=== PATIENT | female | born 1950 | race Caucasian/White ===

== ENCOUNTER → 2018-06-07 13:06 | Outpatient (CLI) | payer MEDICARE, OTHER, SELFPAY ==
[2018-06-15 14:08] LABS: HPV APTIMA, High Risk Negative (Negative)
== END ==
PROVIDERS: PCP Student in an Organized Health Care Education/Training Program; Visit Provider Obstetrics & Gynecology
DX: Z12.4 Encounter for screening for malignant neoplasm of cervix (principal)
CPT/HCPCS: 88175; G0145

== ENCOUNTER → 2018-07-19 09:20 | Outpatient (CLI) | payer MEDICARE, OTHER, SELFPAY ==
--- NOTE | 2018-07-19 09:25 | BI_ITS ---
MAMMOGRAPHY - BILATERAL SCREENING REASON FOR EXAM: Female, 68 years old. Routine annual screening examination. PERTINENT HISTORY: Non-contributory. TECHNIQUE: Digital bilateral breast kaylyn (3D mammographic acquisition) in the CC and MLO projections. 2-D mediolateral oblique (MLO) and craniocaudad (CC) views of both breasts were obtained. CAD: Full Field Digital Mammography with Computer Added Detection was performed. COMPARISON: Comparison is made with prior study dated May 28, 2017 and May 26, 2016. FINDINGS: Breast Composition: The breasts are heterogeneously dense, which may obscure small masses. There is an 8.3 mm x 9.6 mm well-defined nodular density in the mid lateral aspect of the right breast at approximately the 3:00 position. Correlation with ultrasound is recommended. Stable benign-appearing bilateral axillary lymph nodes. No other significant abnormalities are identified. BI/SCREENING MAMM (CAD), BILAT IMPRESSION: 8.3 mm x 9.6 mm well-defined nodule at the 3:00 position of the right breast. Correlation with ultrasound is recommended. ASSESSMENT CATEGORY: BIRADS Category 0: Incomplete. Need additional imaging evaluation. A letter regarding these results will be sent to the patient by the facility within 30 days. Approximately 10% of breast cancers are not detected by mammography. A normal mammogram should not delay biopsy of a clinically suspicious abnormality. [id number] Electronically Signed: Franky Gardner MD at 10:20 EST Tel [phone], Service support ,
--- OUTSIDE RECORDS SUMMARY | 2018-09-13 04:14 | XMS RPT_ITS ---
:1950 Author Organization OHIP Care Team Providers Name Role Phone VALERIE SÁNCHEZ Referring Unavailable VALERIE SÁNCHEZ Attending Unavailable VALERIE SÁNCHEZ Referring Unavailable VALERIE SÁNCHEZ Referring Unavailable MIAH OLMSTEAD Referring Unavailable MIAH OLMSTEAD Attending Unavailable MIAH OLMSTEAD Referring Unavailable MIAH OLMSTEAD Referring Unavailable VALERIE ÁSNCHEZ Referring Unavailable MIAH OLMSTEAD Referring Unavailable MANZON, VALERIE D Referring Unavailable MANZON, VALERIE D Attending Unavailable MANZON, VALERIE D Referring Unavailable MANZON, VALERIE D Referring Unavailable PALMA LOVETT (PELT DROPPER) Attending Unavailable MANZON, VALERIE D Referring Unavailable MANZON, VALERIE D Referring Unavailable Will Ruiz Attending Unavailable Joseph, Will Referring Unavailable [place]mstead, Miah Primary Care Unavailable Joseph, Will Attending Unavailable [place], Will Referring Unavailable Olmstead, Miah Primary Care Unavailable Will Ruiz Consulting Unavailable Jolynn Stevens Attending Unavailable [place], Miah Primary Care Unavailable [place], Will Attending Unavailable [place], Miah Referring Unavailable Andrzej Rowan Attending Unavailable Andrzej Rowan Attending Unavailable Andrzej Rowan Attending Unavailable IthacaWill Attending Unavailable [place]mstead, Miah Referring Unavailable Joseph, Will Attending Unavailable [place]mstead, Miah Referring Unavailable PROBLEMS PROBLEMS DATE TYPE CONDITION / CODE ATTENDING STATUS SOURCE 08/01/2018 Unknown R92.8 - Other Will Ruiz Active [facility] and [facility] inconclusive [facility] findings on Repository diagnostic imaging of breast / R92.8(ICD-10) 06/14/2018 Active Other specified PALMA LOVETT Active [facility] disorders of bone (PELT DROPPER) [place] density and Repository structure, unspecified site / M85.80(ICD-10) 06/07/2018 Unknown Z12.4 - Encounter Andrzej Rowan for screening for Community malignant neoplasm Hospital of cervix / Repository Z12.4(ICD-10) 05/09/2018 Active Localized NA Active [facility] swelling, mass and [place] lump, right upper Repository limb / R22.31(ICD-10) 03/02/2017 Active 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 SÁNCHEZ Active [facility] (current) use of D [place] systemic steroids Repository / Z79.52(ICD-10) 01/18/2018 Active Cardiac murmur, NA Active [facility] unspecified / [place] R01.1(ICD-10) Repository 01/18/2018 Active Nonrheumatic NA Active [facility] mitral (valve) [place] prolapse / Repository I34.1(ICD-10) 01/12/2018 Active 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 Active [facility] (current) drug [place] therapy / Repository Z79.899(ICD-10) 12/24/2017 Active Unknown / VALERIE SÁNCHEZ Active [facility] UNK(Unknown) D [place] Repository 01/17/2017 Active Giant cell NA Active [facility] arteritis with [place] polymyalgia Repository rheumatica / M31.5(ICD-10) 03/05/2016 Active Age-related NA Active [facility] osteoporosis [place] without current Repository pathological fracture / M81.0(ICD-10) 10/28/2015 Active Raynaud's syndrome NA Active [facility] without gangrene / [place] I73.00(ICD-10) Repository PROCEDURES PROCEDURES No Procedure Records FoundRESULTS RESULTS OPERATIVE REPORT Observed: 08/01/2018 Status: F Source: [place] 10:02 AM [facility] REPOSITORY [facility] Medical Records Department [address] [place] [address] Operative Report 08/01/18 0957 MR#: [id number] Acct: [id number] Name: CECELIA QUIROZ Rep #: [id number] : 1950 68 From: Will Ruiz MD PCP: Miah Aguayo DO Status: REG CLI Y Location: OPUS Problem List (1) Abnormal mammogram of right breast Status: Acute Report of Operation Date of Procedure: 08/01/18 Pre-Operative Diagnosis: Abnormal mammogram to right breast Post-Operative Diagnosis: Same Surgery/Procedure Performed:: Ultrasound-guided handheld mammotome breast biopsy to right breast Type of Anesthesia:: Local Description of Procedure: Patient was brought into the ultrasound unit placed in the supine position. Ultrasound of the right breast in the upper inner quadrant revealed the lesion in question. I prepped the breast with chlorhexidine. I injected local. I injected local under ultrasound guidance posterior to the lesion. A skin mahin was made. I directed the hand-held mammotome needle under ultrasound guidance posterior to the lesion. Numerous biopsies were obtained under ultrasound guidance. Under ultrasound guidance I placed a small Gelfoam titanium clip. Sterile dressings were applied. The patient tolerated the procedure well. - Admit VTE Documentation VTE Present on Admission: No VTE Mechan Device Prophylaxis: None VTE Pharm Prophylaxis ordered?: No Reason prophylaxis not ordered:: Treatment Not Indicated 08/01/18 1002 <Electronically signed by Will Ruiz MD> Date Will Ruiz MD CC: Will Ruiz MD; Andrzej Rowan MD; Miah Aguayo DO Signed BREAST BIOPSY Observed: 08/01/2018 Status: F Source: [place] ([place]) 8:00 AM [facility] REPOSITORY Patient: CECELIA QUIROZ : 1950 (68/F) Acct Num: [id number] Phys: Joseph JAMES,Will Unit Num: [id number] Loc: OPUS Specimen: [id number] Received: 08/01/1848 Spec Type: BREAST BX TISSUES 1 TISSUES: Right breast, NOS GROSS DESCRIPTION Received in fixative is one container labeled with the patient's name and designated right breast. The specimen consists of multiple elongated fragments of palomares-yellow fibroadipose tissue that in aggregate measure 1.5 x 1 x 0.1 cm. The entire specimen is submitted in one cassette. / SJ:lili 08/01/18 TC:5 CPT: 98012 HEADER OPERATION: Right breast biopsy, ultrasound-guided PRE-OP DIAGNOSIS: Right breast nodule TISSUE SUBMITTED: Right breast ISCHEMIC TIME: 60 seconds FIXATION TIME: 11.5 hours MICROSCOPIC DESCRIPTION Slides are reviewed. MICROSCOPIC DIAGNOSIS Right breast nodule, ultrasound-guided core biopsy: Focal nonproliferative fibrocystic change with associated microcalcifications. Focal involutional change. No evidence of malignancy. AM: 08/02/18 Signed Michele Pedroza DO 08/02/18 <signature on file> Performed By: #### PBRBX #### [facility] [address] [place], [place], [id number] US BREAST BIOPSY Observed: 08/01/2018 Status: F Source: [place] 1ST LESION 7:29 AM [facility] REPOSITORY [facility] Imaging Services [address] [place] [address] US Breast Biopsy 1st Lesion MR#: [id number] Acct: [id number] Name: CECELIA QUIROZ Rep #: [id number] : 1950 F 68 From: Franky Gardner MD PCP: Miah Aguayo DO Status: REG CLI Study: US Breast Biopsy 1st Lesion Date of Exam: 08/01/18 Exam# [id number] Ordering Dr: Will Ruiz MD STUDY: ULTRASOUND BREAST - RIGHT REASON FOR EXAM: Female, 68 years old. Ultrasound guided right breast biopsy. TECHNIQUE: Axial and longitudinal images of the RIGHT breast were performed with a high resolution ultrasound transducer. COMPARISON: Comparison is made with prior mammogram dated July 19, 2018 and prior sonogram of the right breast dated July 22, 2018. FINDINGS: RIGHT Breast: Under direct sonographic guidance, the surgeon performed 4 core biopsies of the hypoechoic nodule measuring 6 mm x 6 mm x 4 mm at the 2:00 position the breast at 1 cm from the nipple. US/US Breast Biopsy 1st Lesion IMPRESSION: Successful ultrasound-guided biopsy of the nodular density as described. ASSESSMENT CATEGORY: BIRADS Category 2: Benign. A letter regarding these results will be sent to the patient by the facility within 30 days. Electronically Signed: Franky Gardner MD at 8:36 EST Tel [phone], Service support , CC: Will Ruiz MD; Miah Aguayo DO Manager Mining: Signed SURGERY VISIT REPORT Observed: 07/29/2018 Status: F Source: [place] [place] 2:30 PM [facility] [address] [place] [address]. [address] [place] [address] OFFICE VISIT Date of Service: 07/29/18 MR#: [id number] Acct: [id number] Name: CECELIA QUIROZ Rep #: [id number] : 1950 Provider: Will Ruiz MD Age/Sex: 68/F Location: [facility] Status: Signed Intake Intake Visit Reasons: US Guided Handheld Mammotome BX Rt Breast Drug Abuse Counselor Required: No Is patient in pain?: No Allergies No Known Allergies Allergy (Verified 07/29/18 14:09) Medications Travoprost 0.004% [Travatan-Z 0.004% Eye Drop] 1 drp EACH EYE DAILY 04/05/14 [History Confirmed 07/29/18] predniSONE tablet 30 mg PO DAILY 04/05/14 [History Confirmed 07/29/18] Omeprazole [Prilosec] 40 mg PO DAILY 10/11/16 [History Confirmed 07/29/18] Metoprolol Tartrate [Lopressor (beta matilde)] 25 mg PO BID 02/24/17 [History Confirmed 07/29/18] ascorbate calcium 500 mg tablet 500 mg PO DAILY 07/25/18 [History Confirmed 07/29/18] denosumab 60 mg/mL subcutaneous syringe 60 mg SC [id number] 07/25/18 [History Confirmed 07/29/18] folic acid 800 mcg tablet 0.8 mg PO DAILY 07/25/18 [History Confirmed 07/29/18] PFSH Medical History Bartholin cyst (Acute) History of uterine cancer (Acute) Osteoarthritis (Acute) GERD (gastroesophageal reflux disease) (Acute) Chest pain at rest (Acute) 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) Surgical History History of appendectomy (Acute) Status post ORIF of fracture of ankle (Acute) history of ulnar nerve transplant (Acute) History of arthroplasty of left shoulder (Acute) History of colonoscopy (Acute) History of partial hysterectomy (Acute) history of bartholin cyst removal (Acute) Family History Brother Cancer liver and lymphoma Sister Cancer lung Diabetes Father Diabetes Heart disease Myocardial infarction Mother Heart disease Social History Smoking Status: Current every day smoker HPI HPI HPI: CECELIA QUIROZ, is a 68 F who presents to the office today for an ultrasound-guided breast biopsy of the right side. I however was unable to identify the lesion Office Procedures Procedure Time Out Time Out Informed consent given: Yes Consent signed: Yes Time out checklist: patient, procedure, site marked/identified, positioning of patient, supplies available, allergies confirmed, team agrees on procedure Time out staff in room: Yes Time out verified: Yes Time out date: 07/29/18 Time out time: 14:10 Assessment AND Plan Problems 1. Abnormal mammogram of right breast R92.8 Plan I am going to have to get this patient scheduled in radiology using a much more powerful ultrasound machine to see if I can identify this lesion. There will be no charge for today's visit Orders Orders: Coding Level of Care Code No Charge Diagnoses Abnormal mammogram of right breast R92.8 07/29/18 1430 <Electronically signed by Will Ruiz MD> Date Will Ruiz MD Cosign Signature: Date (if applicable) CC: SURGERY VISIT REPORT Observed: 07/25/2018 Status: F Source: [place] 2:39 PM [facility] REPOSITORY [facility] [address] [place] [address] [address] [place] [address] OFFICE VISIT Date of Service: 07/25/18 MR#: [id number] Acct: [id number] Name: CECELIA QUIROZ Rep #: [id number] : 1950 Provider: Will Ruiz MD Age/Sex: 68/F Location: [facility] Status: Signed Intake Vital Signs07/25/18 Height 5 ft 5 in 07/25/18 Weight: 150 lb 2 oz 07/25/18 Body Mass Index (BMI) 25.0 07/25/18 Blood Pressure 144/80 H Intake Visit Reasons: R Breast Birads 4 Mammo 07/19 US 07/22 Chief Complaint: abn mammo/US right Drug Abuse Counselor Required: No Is patient in pain?: No Allergies No Known Allergies Allergy (Verified 07/25/18 14:01) Medications Travoprost 0.004% [Travatan-Z 0.004% Eye Drop] 1 drp EACH EYE DAILY 04/05/14 [History Confirmed 07/25/18] predniSONE tablet 30 mg PO DAILY 04/05/14 [History Confirmed 07/25/18] Omeprazole [Prilosec] 40 mg PO DAILY 10/11/16 [History Confirmed 07/25/18] Metoprolol Tartrate [Lopressor (beta matilde)] 25 mg PO BID 02/24/17 [History Confirmed 07/25/18] ascorbate calcium 500 mg tablet 500 mg PO DAILY 07/25/18 [History Confirmed 07/25/18] denosumab 60 mg/mL subcutaneous syringe 60 mg SC [id number] 07/25/18 [History Confirmed 07/25/18] folic acid 800 mcg tablet 0.8 mg PO DAILY 07/25/18 [History Confirmed 07/25/18] Is last menstrual period known: No Post menopausal: Yes Patient : No PFSH Medical History Bartholin cyst (Acute) History of uterine cancer (Acute) Osteoarthritis (Acute) GERD (gastroesophageal reflux disease) (Acute) Chest pain at rest (Acute) 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) Surgical History History of appendectomy (Acute) Status post ORIF of fracture of ankle (Acute) history of ulnar nerve transplant (Acute) History of arthroplasty of left shoulder (Acute) History of colonoscopy (Acute) History of partial hysterectomy (Acute) history of bartholin cyst removal (Acute) Family History Brother Cancer liver and lymphoma Sister Cancer lung Diabetes Father Diabetes Heart disease Myocardial infarction Mother Heart disease Social History Smoking Status: Current every day smoker HPI HPI HPI: CECELIA QUIROZ, is a 68 F who presents to the office today for evaluation of an abnormal mammogram and ultrasound done to her right breast. Patient has had her mammogram and ultrasound completed [facility] on 07/22/2018. In the right breast she was noted to have a 5 x 8 x 3 mm well-defined hypoechoic nodule at the 2 o'clock position approximately 1 cm from the nipple. This was most likely to represent a fibroadenoma and a biopsy was recommended for further evaluation. She has not palpated any abnormalities. She is not had any breast trauma. She is not complaining of any nipple discharge. ROS General General: Yes weight change and fatigue; no appetite, colon cancer, breast cancer or weakness HEENT HEENT: Yes eye surgery; no difficulty swallowing, eye injury, swollen glands or hoarseness Endo Endocrine: No thyroid disease, diabetes mellitus, thyroid cancer, Hair loss, heat intolerance or cold intolerance Breast Breast: Yes abnormal mammogram and abnormal US; no left breast lump, right breast lump, nipple discharge, breast pain or breast enlargement Musc Musculoskeletal: Yes arthritis; no back problems, rheumatoid arthritis, gout or joint pain Additional Details: PMR Cardio Cardiovascular: No murmur, pacemaker, heart disease, atrial fibrillation, high blood pressure, heart attack, heart stent, palpitations, shortness of breat with exertion or chest pain Resp Respiratory: No shortness of breath, No sleep apnea, No cough, No COPD, No asthma, No emphysema, No wheezing Gastro Gastrointestinal: No abdominal pain, No nausea or vomiting, Yes diarrhea, No constipation, No blood in stool, Yes acid reflux, No hemorrhoids, No ulcers, No gallbladder problem, No black,tarry stools Lane Hematologic: No blood thinners, No blood disorders, No bleeding, No anemia, No blood clots Neuro Neurologic: No weakness Exam [facility] Head: normal to inspection, normocephalic, atraumatic Mouth: moist mucous membranes, oropharynx normal Eyes General: appearance normal, both eyes and all related structures Sclera: sclerae normal Neck Neck: no lymphadenopathy noted, trachea midline Neck mass: No Thyroid: thyroid normal Lymphatic: no lymphadenopathy noted Chest Breast inspection: normal inspection of the breasts Breast Palpation: No nipple discharge Resp Other: Respiratory Exam: Deferred Cardio Heart Sounds: no murmurs Other: Cardiac Exam: Deferred GI Other: GI Exam: Deferred Other: Rectal Exam: Deferred Extrem Other: Extremity Exam: Deferred Assessment AND Plan Problems 1. Abnormal mammogram of right breast R92.8 Plan I have discussed above with the patient. I have recommended ultrasound guided needle core breast biopsy with vacuum assistance. I have described the procedure to the patient. I have discussed with the patient that sometimes the ultrasound lesion may be artifact and is user dependent and therefore prior to undergoing the procedure, the patient will have a definitive US to ensure that the lesion is truly present and is not artifact. A marker clip will be placed to identify the location. Patient has been counseled to the risks/benefits of the procedure. I have explained the risks of the surgery, including but not limited to: infection, bleeding, injury to any blood vessels/nerves, scar tissue, missing the lesion, further surgery, etc. - the patient understands and agrees to proceed. I have answered all of the patient's questions to her satisfaction and she has no further questions. Coding Level of Care Code Off vis,new,level 3 Diagnoses Abnormal mammogram of right breast R92.8 07/25/18 1439 <Electronically signed by Will Ruiz MD> Date Will Ruiz MD Cosigner Signature: Date (if applicable) CC: Andrzej Rowan MD; Miah Aguayo DO BREAST LIMITED Observed: 07/22/2018 Status: F Source: [facility] 8:55 AM [facility] REPOSITORY [facility] Imaging Services [address] [place] [address] Breast Limited Unilateral MR#: [id number] Acct: [id number] Name: CECELIA QUIROZ Rep #: [id number] : 1950 F 68 From: Franky Gardner MD PCP: Miah Aguayo DO Status: REG CLI Study: Breast Limited Unilateral Date of Exam: 07/22/18 Exam# [id number] Ordering Dr: Andrzej Rowan MD STUDY: ULTRASOUND BREAST - RIGHT REASON FOR EXAM: Female, 68 years old. Abnormal screening mammogram. TECHNIQUE: Axial and longitudinal images of the RIGHT breast were performed with a high resolution ultrasound transducer. COMPARISON: Comparison is made with prior mammogram dated July 19, 2018 and prior sonogram of the right breast dated March 07, 2010. FINDINGS: RIGHT Breast: The mammographic abnormality corresponds to a 5 mm x 8 mm x 3 mm well-defined hypoechoic nodule at the 2:00 position of the breast at 1 cm from the nipple. This most likely represents a small fibroadenoma. A biopsy is recommended for further evaluation. US/Breast Limited Unilateral IMPRESSION: The mammographic abnormality corresponds to a 5 mm x 8 mm x 3 mm well-defined hypoechoic nodule at the 2:00 position breast 1 cm from nipple. This most likely represents a small fibroadenoma. Tissue diagnosis is recommended. ASSESSMENT CATEGORY: BIRADS Category 4: Suspicious - Biopsy Should Be Considered. A letter regarding these results will be sent to the patient by the facility within 30 days. Electronically Signed: Franky Gardner MD at 11:24 EST Tel [phone], Service support , CC: Andrzej Rowan MD; Miah Aguayo DO Manager Mining: Signed SCREENING MAMM (CAD), Observed: 07/19/2018 Status: F Source: [facility] 9:25 AM [facility] REPOSITORY [facility] Imaging Services [address] [place] [address] SCREENING MAMM (CAD), BILAT MR#: [id number] Acct: [id number] Name: CECELIA QUIROZ Rep #: [id number] : 1950 F 68 From: Franky Gardner MD PCP: Miah Aguayo DO Status: REG CLI Study: SCREENING MAMM (CAD), BILAT Date of Exam: 07/19/18 Exam# [id number] Ordering Dr: Andrzej Rowan MD MAMMOGRAPHY - BILATERAL SCREENING REASON FOR EXAM: Female, 68 years old. Routine annual screening examination. PERTINENT HISTORY: Non-contributory. TECHNIQUE: Digital bilateral breast kaylyn (3D mammographic acquisition) in the CC and MLO projections. 2-D mediolateral oblique (MLO) and craniocaudad (CC) views of both breasts were obtained. CAD: Full Field Digital Mammography with Computer Added Detection was performed. COMPARISON: Comparison is made with prior study dated May 28, 2017 and May 26, 2016. FINDINGS: Breast Composition: The breasts are heterogeneously dense, which may obscure small masses. There is an 8.3 mm x 9.6 mm well-defined nodular density in the mid lateral aspect of the right breast at approximately the 3:00 position. Correlation with ultrasound is recommended. Stable benign-appearing bilateral axillary lymph nodes. No other significant abnormalities are identified. BI/SCREENING MAMM (CAD), BILAT IMPRESSION: 8.3 mm x 9.6 mm well-defined nodule at the 3:00 position of the right breast. Correlation with ultrasound is recommended. ASSESSMENT CATEGORY: BIRADS Category 0: Incomplete. Need additional imaging evaluation. A letter regarding these results will be sent to the patient by the facility within 30 days. Approximately 10% of breast cancers are not detected by mammography. A normal mammogram should not delay biopsy of a clinically suspicious abnormality. [id number] Electronically Signed: Franky Gardner MD at 10:20 EST Tel [phone], Service support , CC: Andrzej Rowan MD; Miah Aguayo DO Manager Mining: Signed CBC AND DIFFERENTIAL Collected: 07/03/2018 Status: F Source: [place] 11:41 AM [facility] REPOSITORY TYPE CODE TESTS RESULT OUT OF REFERENCE UNITS RANGE LAB WBC 3.70-11.00 k/uL WBC High 15.51 LAB RBC 3.90-5.20 m/uL RBC 4.08 LAB HGB 11.5-15.5 g/dL Hemoglobin 12.6 LAB HCT 36.0-46.0 % Hematocrit 41.3 LAB MCV 80.0-100.0 fL MCV High 101.2 LAB MCH 26.0-34.0 pG MCH 30.9 LAB MCHC 30.5-36.0 g/dL MCHC 30.5 LAB RDWCV 11.5-15.0 % RDW-CV 13.6 LAB PLTCT 150-400 k/uL Platelet Count 328 LAB MPV 9.0-12.7 fL MPV 10.9 LAB ANEUT % Neut% 82.3 LAB AANEUT 1.45-7.50 k/uL Abs Neut High 12.76 LAB ALYMP % Lymph% 12.8 LAB AALYMP 1.00-4.00 k/uL Abs Lymph 1.98 LAB AMONO % Pondera% 4.4 LAB AAMONO <0.87 k/uL Abs Pondera 0.69 LAB AEOS % Eosin% 0.1 LAB AAEOS <0.46 k/uL Abs Eosin <0.03 LAB ABASO % Baso% 0.4 LAB AABASO <0.11 k/uL Abs Baso 0.06 LAB AUNRBC 0 /100 WBC NRBCs 0.0 LAB ABNRBC <0.01 k/uL Absolute nRBC <0.01 LAB DTYP DTYPE Auto Diff Performed By: #### CBCDIF, ALB, ALT, AST, CRET1 #### [facility] [address] [place] [address] ALBUMIN Collected: 07/03/2018 Status: F Source: [place] 11:41 [facility] REPOSITORY TYPE CODE TESTS RESULT OUT OF REFERENCE UNITS RANGE LAB ALB 3.9-4.9 g/dL Albumin 4.2 Performed By: #### CBCDIF, ALB, ALT, AST, CRET1 #### [facility] [place] [address] ALT Collected: 07/03/2018 Status: F Source: [place] 11:41 [facility] REPOSITORY TYPE CODE TESTS RESULT OUT OF RANGE REFERENCE UNITS LAB ALT 7-38 U/L ALT 13 Performed By: #### CBCDIF, ALB, ALT, AST, CRET1 #### [facility] [address] [place] [id number] AST Collected: 07/03/2018 Status: F Source: [place] 11:41 AM [facility] REPOSITORY TYPE CODE TESTS RESULT OUT OF RANGE REFERENCE UNITS LAB AST 13-35 U/L AST 18 Performed By: #### CBCDIF, ALB, ALT, AST, CRET1 #### [facility] [address] [place], [place] [address] CREATININE Collected: 07/03/2018 Status: F Source: [place] 11:41 AM [facility] REPOSITORY TYPE CODE TESTS RESULT OUT OF REFERENCE UNITS RANGE LAB CRET 0.58-0.96 mg/dL Creatinine 0.77 LAB GFRAA eGFR- >60 Amer. LAB GFRNAA . eGFR-All Other Races >60 Result Comment: eGFR (Estimated GFR) Units of measure: mL/min/1.73 meters squared eGFR is derived from the reexpressed MDRD Study equation using the following parameters: serum creatinine, age, gender and race. The creatinine assay has been calibrated to be traceable to IDMS. An eGFR <60 mL/min/1.73m2 for >3 months is consistent with chronic kidney disease. Refer to KDOQI guidelines for clinical interpretation. In patients with unstable renal function, e.g. those with acute kidney injury, the eGFR may not accurately reflect actual GFR. Performed By: #### CBCDIF, ALB, ALT, AST, CRET1 #### [facility] [address] [place] [address] CNOV Observed: 06/14/2018 Status: COMPLETED Source: [place] 8:40 AM [facility] REPOSITORY Office Visit (RHEUST) CECELIA QUIROZ ([id number]) 1950 F Date Time Provider Department 06/14/18 8:40 AM [facility] L[facility]ETT During your visit today, we recorded the following information about you: Temperature Pulse Blood pressure Weight 97.9 degrees 82/minute 136/68 67.6 kg Height 1.664 m [place] Lovett APRN.CNP 06/14/2018 1:47 PM Signed Dx: GCA (temporal artery biopsy negative x2) 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 She stopped fosamax 2 weeks ago. She is taking high dose vit d. No falls or fractures since [facility]. No invasive dental work in the last three months and none planned for the next three months. No jaw or thigh pain. No recent infections. She is currently taking prednisone 7.5 mg. She reduced to this dose from 9 mg daily because she ran out of 1 mg tabs. She reports worsening of pain with decreased dose. She started methotrexate 3 weeks ago and is tolerating it well. Sites of pain: shoulders, neck, buttocks, b/l upper extremity proximal muscles, pain rated 9/10 Muscle weakness: upper extremities Vision changes: none Scalp tenderness: none Headaches: none Jaw pain: none REVIEW OF SYSTEMS: June 14, 2018 CONSTITUTIONAL: Fever: No Fatigue: Yes Pain: No EYES: Pain: No Redness: No Loss of vision: No Dryness: Yes EAR, NOSE, MOUTH, THROAT: Nose bleeds: No Hearing loss: No Sores in mouth: No Swallowing problems: No Dry mouth: Yes CARDIOVASCULAR: Chest pain: No Swelling in the feet or legs: Yes RESPIRATORY: Shortness of breath: No Pain with breathing: No Chronic cough: No Coughing up blood: No GASTROINTESTINAL: Heartburn: No Nausea: No Diarrhea: Yes Blood in the stool or black stool: No Abdominal pain: No GENITOURINARY: Blood in urine: No Pain or burning on urination: No MUSCULOSKELETAL: See above: Joint pain: Yes Joint swelling: Yes Morning stiffness in joints: Yes Muscle weakness: Yes Back pain: Yes SKIN: Rashes: No Sun sensitive rashes: No Color changes of hands or feet in the cold: Yes Hair loss: No Nail changes: No NEUROLOGICAL: Headaches: Yes Dizziness: Yes Numbness or tingling: Yes- intermittent to hands Memory loss: No Seizures: No HEMATOLOGIC/LYMPHATIC: Swollen glands: No Anemia: No ALLERGIES/IMMUNOLOGIC: Allergies (other than medications): No Increased susceptibility to infection: No KNOWN MEDICAL CONDITIONS: Diabetes: No Thyroid disease: No High blood pressure: No PAST MEDICAL HISTORY PAD (nonpalpable right DP pulse, saw Dr. Cutler in vascular medicine) Hematuria - 1999 (had workup including cystoscopy, etc. - entire workup negative. 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 PAST SURGICAL HISTORY Past Surgical History of - 1987 (ulnar ner transferred) Past Surgical History of - 1990 (bartholin cyst on vagina) Past Surgical History of - 2005 (bone spur to left shoulder) Total Abdom Hysterectomy - 1982 (cervical cancer, still has ovaries) Past Surgical History of - 2007 (left knee -- torn meniscus ([facility])) skin biopsy Thyroid nodule FNA partial hysterectomy (ovaries not removed) appendectomy temporal artery bx x2 Right ankle fracture s/p fixation 09/2011 Right ankle fusion 07/2016 right cataract surgery FAMILY HISTORY no rheumatic autoimmune disorders, no psoriasis, no IBD (+)cancers - lung, liver, colon, uterine (+)diabetes SOCIAL HISTORY Marital Status: Number of children: 2 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 methotrexate 2.5 mg tablet Take 4 tablets qweek for 2 weeks then 8 tablets qweek thereafter. predniSONE (DELTASONE) 5 mg tablet Using 1 mg and 5 mg tabs, take 8 mg qd predniSONE (DELTASONE) 1 mg tablet Using 1 mg and 5 mg tabs, take 8 mg qd metoprolol tartrate, short acting, (LOPRESSOR) 25 mg tablet TAKE ONE TABLET BY MOUTH TWICE DAILY FOR TREMOR alendronate (FOSAMAX) 70 mg tablet Take 1 tablet by mouth once each week. predniSONE (DELTASONE) 2.5 mg tablet Using 10 mg and 2.5 mg tablets, take 25 mg qd. Reduce dose as directed. Do not go lower than 10 mg qd predniSONE (DELTASONE) 20 mg tablet TAKE TWO AND ONE-HALF TABLETS BY MOUTH EVERY MORNING predniSONE (DELTASONE) 10 mg tablet Using 10 mg and 20 mg tablets, take 40 mg qam. Reduce dose by 5 mg as directed. Do not go lower than 20 mg daily Omeprazole 40 mg capsule Take 1 capsule by mouth once daily. TRAVOPROST, BENZALKONIUM, (TRAVATAN OPHTHALMIC) Use in eyes. One drop daily at bedtime in both eyes. No current facility-administered medications for this visit. On Exam: BP 136/68 Pulse 82 Temp 36.6 ?C (97.9 ?F) (Oral) Ht 166.4 cm (5' 5.5) Wt 67.6 kg (149 lb) BMI 24.42 kg/m? GEN WD/WN, in nad, AANDOx3, normal gait HEART rrr, no mgr LUNGS ctab ABDOM +bs, soft, nt, nd MS Swollen joints: none Tender joints: none No synovitis +tenderness to b/l upper extremity and lower extremity proximal muscles Jan 19 2014 BD AP SPINE/HIP - LEFT / COMPARISON: 01/17/2012 LUMBAR SPINE: The bone mineral density from L1 through L4 is 0.860 grams per square centimeter which yields a T-score of -1.7. This is unchanged. LEFT HIP: The bone mineral density of the total region of the hip is 0.780 grams per square centimeter which yields a T-score of -1.3. This is not significantly changed. LEFT FEMORAL NECK: The bone mineral density of the femoral neck is 0.596 grams per square centimeter which yields a T-score of -2.3. This is not significantly changed. IMPRESSION: Osteopenia, not significantly changed. Sep 10 2014 MRI CARDIAC IMPRESSION: NORMAL-SIZE THORACIC AND ABDOMINAL AORTA - mild segmental wall thickening of the descending thoracic and abdominal aorta in a nonspecific pattern Arch and Visceral Branch Vessels: unremarkable without evidence of stenosis - the hepatic artery is not well seen Normal left ventricular size and function on qualitative assessment No evidence of other abnormalities PRIOR EVALUATION Abnormal/Positive: sedimentation rate 59.outside labs: ESR 104, CRP 50.6 and Hgb 10.4 Normal/Negative: tsh, outside labs: JOANN, RF and CCP,temporal artery biopsy neg x2 Component Latest Ref Rng AND Units 09/25/2016 Hep B Core Ab, Total Negative Negative Hep C Antibody IA Negative Negative Hep B Surface Ag Negative Negative Hep B Surface Ab, Qual Negative Negative TB Result Negative Negative TB Antigen Response <0.35 IU/mL 0.01 Mitogen Response >0.49 IU/mL 2.53 TB Gamma Interpretation No evidence of current or previous infection with Mycobacterium tuberculosis. Labs reviewed and discussed with the patient: Component Latest Ref Rng AND Units 05/09/2018 05/11/2018 WBC 3.70 - 11.00 k/uL 14.91 (H) RBC 3.90 - 5.20 m/uL 4.11 Hemoglobin 11.5 - 15.5 g/dL 12.7 Hematocrit 36.0 - 46.0 % 41.9 MCV 80.0 - 100.0 fL 101.9 (H) MCH 26.0 - 34.0 pG 30.9 MCHC 30.5 - 36.0 g/dL 30.3 (L) RDW-CV 11.5 - 15.0 % 13.2 Platelet Count 150 - 400 k/uL 325 MPV 9.0 - 12.7 fL 12.0 Neut% % 76.8 Abs Neut (ANC) 1.45 - 7.50 k/uL 11.44 (H) Lymph% % 18.2 Abs Lymph 1.00 - 4.00 k/uL 2.72 Pondera% % 4.8 Abs Pondera <0.87 k/uL 0.72 Eosin% % 0.0 Abs Eosin <0.46 k/uL <0.03 Baso% % 0.2 Abs Baso <0.11 k/uL 0.03 Nucleated Reds 0 /100 WBC 0.0 Absolute nRBC <0.01 k/uL <0.01 Diff Type Auto Diff Albumin 3.9 - 4.9 g/dL 4.1 Bilirubin, Total 0.2 - 1.3 mg/dL <0.2 (L) Bilirubin, Conjug <0.2 mg/dL <0.2 Alkaline Phosphatase 32 - 117 U/L 82 AST 13 - 35 U/L 28 ALT 7 - 38 U/L 18 Protein, Total 6.3 - 8.0 g/dL 7.5 Creatinine 0.58 - 0.96 mg/dL 1.06 (H) eGFR- >60 eGFR-All Other Races . 52 CRP <0.9 mg/dL 0.8 WSR 0 - 20 mm/hr 49 (H) Cross-Link N-telopeptide 14.4 - 75.0 nM/mM Creat 26.0 Vitamin D 25 Hydroxy 31.0 - 80.0 ng/mL 26.5 (L) Calcium 8.5 - 10.2 mg/dL 9.6 Component Latest Ref Rng AND Units 12/14/2016 04/19/2017 10/19/2017 12/24/2017 05/04/2018 WSR 0 - 20 mm/hr 12 16 37 (H) 40 (H) 45 (H) CRP <0.9 mg/dL 0.7 0.3 0.3 1.1 (H) 0.7 02/26/17 [facility] (see scanned document in EMR) wbc 17.4 Hgb 13.8 Hct 41.8 plt 271 Glc 124 (70-110) Cr 0.96 ASSESSMENT: GCA, PMR. Other PMH: Raynaud's,PMR, osteopenia, NSAID related PUD, glaucoma, RUL nodule (ill-defined 1.4 cm on MRI, no nodule noted on cxr), hemicrania continua, PAD (nonpalpable right DP pulse) and mitral valve prolapse. PLAN 1. GCA/PMR -former patient of Dr. Lawrence -diagnosed with PMR after she developed shoulder and pelvic girdle pain and headaches. 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 -Had remarkable improvement with prednisone in her shoulder and pelvic girdle pain but not her headaches. -trial of MTX (highest dose 15 mg) as steroid sparing agent (she has significant tremors with prednisone) ineffective -Actemra (started 10/19/16-dc'd 11/2016) -unable to taper prednisone lower than 10 mg daily due to worsening of her musculoskeletal pain. -continue mtx as instructed along with FA. -she was advised to increase prednisone dose to 9 mg daily -I asked that she have labs done 4 weeks after starting methotrexate (standing orders in EMR) 2. OSTEOPENIA -Jan 24 2016 DEXA: osteoporosis with T-score -2.6. Spine BMD stable, decline in the bone density of left hip but it is not statistically significant. -She had traumatic right ankle fracture after a fall at work s/p fixation 09/2011 -Actonel since at least 2007 until early 2012 -Fosamax since 01/2014. Off Fosamax for a period but then resumed it sometime after 12/2015 -Jan 28 2018 DEXA: osteopenia. T-score of -2.4. Change in BMD at spine: + 3.9%, at left hip: +3.6% and at right hip: -3.9%. Results d/w patient. -Dr. Sánchez discussed switching from Fosamax to Prolia. R/B/A of Prolia d/w patient. No recent or anticipated invasive dental procedures. She is agreeable to switching to Prolia. -will give prolia #1 today. -routine dental visits advised -fall/infection precautions -Patient counseled on calcium and vitamin D requirements. Recommended daily calcium intake (ideally by diet) is 7790-0934 mg per day. If she is unable to consistently meet this requirement by diet alone, she was advised to take calcium CITRATE supplements to make up the deficit. -recommended vitamin D is 800-1000 IU once a day -Next DEXA due: January 2020. 3. Raynaud's -stable -no digital ulcers 4. BLEEDING GASTRIC ULCER - NSAID RELATED (JUL 2011 EGD) -avoid NSAIDs 5. 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 Jolynn Stevens ([place]), workup negative per patient 6. GENERAL HEALTH MAINTENANCE -influenza vaccination given May 2018 -she will follow up with her PCP for her general health issues FU 3 mon, sooner if needed Palma Lovett APRN.IRINEO Lovett APRN.CNP 06/14/2018 9:18 AM Addendum Please have labs done 4 weeks after starting methotrexate. Increase prednisone to 9 mg daily and stay on this dose until your next visit. Referring Provider: VALERIE SÁNCHEZ [[id number]] Allergies As of Date: 06/14/2018 (No Known Allergies) Date Reviewed: 06/14/2018 Reviewed by: Palma Lovett - Fully Assessed Reason for Visit: Established Patient [[id number]] Primary Visit Diagnosis:Osteopenia, unspecified location [M85.80] Other Visit Diagnoses: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) [M31.5] Encounter for long-term (current) use of medications [Z79.899] Order(s):[] denosumab 60 mg injection (PROLIA)Disp: Rfl: Prescriptions as of 06/14/2018 Sig: ERGOCALCIFEROL (VITAMIN D2) 5* Take 50,000 every Tuesdays an* FOLIC ACID 1 MG TABLET Take 1 tablet by mouth once d* METHOTREXATE SODIUM 2.5 MG TA* Take 4 tablets qweek for 2 w* X PREDNISONE 5 MG TABLET Using 1 mg and 5 mg tabs, josiah* X PREDNISONE 1 MG TABLET Using 1 mg and 5 mg tabs, josiah* METOPROLOL TARTRATE 25 MG TAB* TAKE ONE TABLET BY MOUTH TWIC* PREDNISONE 2.5 MG TABLET Using 10 mg and 2.5 mg tablet* PREDNISONE 20 MG TABLET TAKE TWO AND ONE-HALF TABLETS* PREDNISONE 10 MG TABLET Using 10 mg and 20 mg tablets* OMEPRAZOLE 40 MG CAPSULE,CIRO* Take 1 capsule by mouth once * TRAVATAN OPHTHALMIC Use in eyes. One drop daily * Problem List As Of Date 06/14/2018 Noted Resolved Disorder of bone and cartilage [M89.9, M94.9] 03/05/2016 More... ALLERGIC RHINITIS NOS [J30.9] 10/29/2007 MVP (mitral valve prolapse) [I34.1] More... TOBACCO USE DISORDER [F17.200] Diverticulitis of large intestine without perfo*INVALID FOR* More... CARPAL TUNNEL SYNDROME [G56.00] 10/29/2007 HEMATURIA [599.7] 10/29/2007 More... 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 TEAR MED MENISC KNEE-CURRENT [[id number]] INVALID FOR* Cellulitis and Abscess of Face [L03.211, L02.01]INVALID FOR* Adjustment Disorder with Anxiety [F43.22] INVALID FOR* More... Routine general medical examination at a health*INVALID FOR*11/27/2011 Priority: Moderate Class: Chronic More... 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] INVALID FOR* Infected sebaceous cyst [L72.3, L08.9] INVALID FOR* Cephalalgia [R51] INVALID FOR* Family history of brain aneurysm [Z82.49] INVALID FOR* Giant cell arteritis with polymyalgia rheumatic*INVALID FOR* correction systemic steroid user [Z79.52] INVALID FOR* Actinic keratosis [L57.0] INVALID FOR* Undiagnosed cardiac murmurs [R01.1] INVALID FOR* Other instructions from your clinician: Please have labs done 4 weeks after starting methotrexate. Increase prednisone to 9 mg daily and stay on this dose until your next visit. Prescriptions ordered this encounter Disp Refills Start End DENOSUMAB 60 MG/ML SUBCUTANEOUS SYRI* 06/14/2018 06/14/2018 Route: SUBCUTANEOUS Medications Discontinued During This Encounter alendronate (FOSAMAX) 70 mg tablet 12 t* 3 12/24/2017 06/14/2018 Route: ORAL Sig: Take 1 tablet by mouth once each week. Disc: Reason for discontinue is not on file. Disposition: Return in about 3 months (around 09/14/2018). Follow-up and Disposition History Recorded Encounter Status:Closed by PALMA LOVETT PELT DROPPER on 06/14/18 PROGRESS Observed: 06/13/2018 Status: COMPLETED Source: [facility] 11:56 AM [facility] RE[facility]IT[facility] HNO ID: [id number] Author: Palma Lovett Service: (none) Author Type: Nurse Practitioner Type: Progress Notes Filed: 06/14/2018 1:47 PM Note Text: Dx: GCA (temporal artery biopsy negative x2) 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 She stopped fosamax 2 weeks ago. She is taking high dose vit d. No falls or fractures since [facility]. No invasive dental work in the last three months and none planned for the next three months. No jaw or thigh pain. No recent infections. She is currently taking prednisone 7.5 mg. She reduced to this dose from 9 mg daily because she ran out of 1 mg tabs. She reports worsening of pain with decreased dose. She started methotrexate 3 weeks ago and is tolerating it well. Sites of pain: shoulders, neck, buttocks, b/l upper extremity proximal muscles, pain rated 9/10 Muscle weakness: upper extremities Vision changes: none Scalp tenderness: none Headaches: none Jaw pain: none REVIEW OF SYSTEMS: June 14, 2018 CONSTITUTIONAL: Fever: No Fatigue: Yes Pain: No EYES: Pain: No Redness: No Loss of vision: No Dryness: Yes EAR, NOSE, MOUTH, THROAT: Nose bleeds: No Hearing loss: No Sores in mouth: No Swallowing problems: No Dry mouth: Yes CARDIOVASCULAR: Chest pain: No Swelling in the feet or legs: Yes RESPIRATORY: Shortness of breath: No Pain with breathing: No Chronic cough: No Coughing up blood: No GASTROINTESTINAL: Heartburn: No Nausea: No Diarrhea: Yes Blood in the stool or black stool: No Abdominal pain: No GENITOURINARY: Blood in urine: No Pain or burning on urination: No MUSCULOSKELETAL: See above: Joint pain: Yes Joint swelling: Yes Morning stiffness in joints: Yes Muscle weakness: Yes Back pain: Yes SKIN: Rashes: No Sun sensitive rashes: No Color changes of hands or feet in the cold: Yes Hair loss: No Nail changes: No NEUROLOGICAL: Headaches: Yes Dizziness: Yes Numbness or tingling: Yes- intermittent to hands Memory loss: No Seizures: No HEMATOLOGIC/LYMPHATIC: Swollen glands: No Anemia: No ALLERGIES/IMMUNOLOGIC: Allergies (other than medications): No Increased susceptibility to infection: No KNOWN MEDICAL CONDITIONS: Diabetes: No Thyroid disease: No High blood pressure: No PAST MEDICAL HISTORY PAD (nonpalpable right DP pulse, saw Dr. Cutler in vascular medicine) Hematuria - 1999 (had workup including cystoscopy, etc. - entire workup negative. 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 PAST SURGICAL HISTORY Past Surgical History of - 1987 (ulnar ner transferred) Past Surgical History of - 1990 (bartholin cyst on vagina) Past Surgical History of - 2005 (bone spur to left shoulder) Total Abdom Hysterectomy - 1982 (cervical cancer, still has ovaries) Past Surgical History of - 2007 (left knee -- torn meniscus ([place])) skin biopsy Thyroid nodule FNA partial hysterectomy (ovaries not removed) appendectomy temporal artery bx x2 Right ankle fracture s/p fixation 09/2011 Right ankle fusion 07/2016 right cataract surgery FAMILY HISTORY no rheumatic autoimmune disorders, no psoriasis, no IBD (+)cancers - lung, liver, colon, uterine (+)diabetes SOCIAL HISTORY Marital Status: Number of children: 2 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 methotrexate 2.5 mg tablet Take 4 tablets qweek for 2 weeks then 8 tablets qweek thereafter. predniSONE (DELTASONE) 5 mg tablet Using 1 mg and 5 mg tabs, take 8 mg qd predniSONE (DELTASONE) 1 mg tablet Using 1 mg and 5 mg tabs, take 8 mg qd metoprolol tartrate, short acting, (LOPRESSOR) 25 mg tablet TAKE ONE TABLET BY MOUTH TWICE DAILY FOR TREMOR alendronate (FOSAMAX) 70 mg tablet Take 1 tablet by mouth once each week. predniSONE (DELTASONE) 2.5 mg tablet Using 10 mg and 2.5 mg tablets, take 25 mg qd. Reduce dose as directed. Do not go lower than 10 mg qd predniSONE (DELTASONE) 20 mg tablet TAKE TWO AND ONE-HALF TABLETS BY MOUTH EVERY MORNING predniSONE (DELTASONE) 10 mg tablet Using 10 mg and 20 mg tablets, take 40 mg qam. Reduce dose by 5 mg as directed. Do not go lower than 20 mg daily Omeprazole 40 mg capsule Take 1 capsule by mouth once daily. TRAVOPROST, BENZALKONIUM, (TRAVATAN OPHTHALMIC) Use in eyes. One drop daily at bedtime in both eyes. No current facility-administered medications for this visit. On Exam: BP 136/68 Pulse 82 Temp 36.6 ?C (97.9 ?F) (Oral) Ht 166.4 cm (5' 5.5) Wt 67.6 kg (149 lb) BMI 24.42 kg/m? GEN WD/WN, in nad, AANDOx3, normal gait HEART rrr, no mgr LUNGS ctab ABDOM +bs, soft, nt, nd MS Swollen joints: none Tender joints: none No synovitis +tenderness to b/l upper extremity and lower extremity proximal muscles Jan 19 2014 BD AP SPINE/HIP - LEFT / COMPARISON: 01/17/2012 LUMBAR SPINE: The bone mineral density from L1 through L4 is 0.860 grams per square centimeter which yields a T-score of -1.7. This is unchanged. LEFT HIP: The bone mineral density of the total region of the hip is 0.780 grams per square centimeter which yields a T-score of -1.3. This is not significantly changed. LEFT FEMORAL NECK: The bone mineral density of the femoral neck is 0.596 grams per square centimeter which yields a T-score of -2.3. This is not significantly changed. IMPRESSION: Osteopenia, not significantly changed. Sep 10 2014 MRI CARDIAC IMPRESSION: NORMAL-SIZE THORACIC AND ABDOMINAL AORTA - mild segmental wall thickening of the descending thoracic and abdominal aorta in a nonspecific pattern Arch and Visceral Branch Vessels: unremarkable without evidence of stenosis - the hepatic artery is not well seen Normal left ventricular size and function on qualitative assessment No evidence of other abnormalities PRIOR EVALUATION Abnormal/Positive: sedimentation rate 59.outside labs: ESR 104, CRP 50.6 and Hgb 10.4 Normal/Negative: tsh, outside labs: JOANN, RF and CCP,temporal artery biopsy neg x2 Component Latest Ref Rng AND Units 09/25/2016 Hep B Core Ab, Total Negative Negative Hep C Antibody IA Negative Negative Hep B Surface Ag Negative Negative Hep B Surface Ab, Qual Negative Negative TB Result Negative Negative TB Antigen Response <0.35 IU/mL 0.01 Mitogen Response >0.49 IU/mL 2.53 TB Gamma Interpretation No evidence of current or previous infection with Mycobacterium tuberculosis. Labs reviewed and discussed with the patient: Component Latest Ref Rng AND Units 05/09/2018 05/11/2018 WBC 3.70 - 11.00 k/uL 14.91 (H) RBC 3.90 - 5.20 m/uL 4.11 Hemoglobin 11.5 - 15.5 g/dL 12.7 Hematocrit 36.0 - 46.0 % 41.9 MCV 80.0 - 100.0 fL 101.9 (H) MCH 26.0 - 34.0 pG 30.9 MCHC 30.5 - 36.0 g/dL 30.3 (L) RDW-CV 11.5 - 15.0 % 13.2 Platelet Count 150 - 400 k/uL 325 MPV 9.0 - 12.7 fL 12.0 Neut% % 76.8 Abs Neut (ANC) 1.45 - 7.50 k/uL 11.44 (H) Lymph% % 18.2 Abs Lymph 1.00 - 4.00 k/uL 2.72 Pondera% % 4.8 Abs Pondera <0.87 k/uL 0.72 Eosin% % 0.0 Abs Eosin <0.46 k/uL <0.03 Baso% % 0.2 Abs Baso <0.11 k/uL 0.03 Nucleated Reds 0 /100 WBC 0.0 Absolute nRBC <0.01 k/uL <0.01 Diff Type Auto Diff Albumin 3.9 - 4.9 g/dL 4.1 Bilirubin, Total 0.2 - 1.3 mg/dL <0.2 (L) Bilirubin, Conjug <0.2 mg/dL <0.2 Alkaline Phosphatase 32 - 117 U/L 82 AST 13 - 35 U/L 28 ALT 7 - 38 U/L 18 Protein, Total 6.3 - 8.0 g/dL 7.5 Creatinine 0.58 - 0.96 mg/dL 1.06 (H) eGFR- >60 eGFR-All Other Races . 52 CRP <0.9 mg/dL 0.8 WSR 0 - 20 mm/hr 49 (H) Cross-Link N-telopeptide 14.4 - 75.0 nM/mM Creat 26.0 Vitamin D 25 Hydroxy 31.0 - 80.0 ng/mL 26.5 (L) Calcium 8.5 - 10.2 mg/dL 9.6 Component Latest Ref Rng AND Units 12/14/2016 04/19/2017 10/19/2017 12/24/2017 05/04/2018 WSR 0 - 20 mm/hr 12 16 37 (H) 40 (H) 45 (H) CRP <0.9 mg/dL 0.7 0.3 0.3 1.1 (H) 0.7 02/26/17 [facility] (see scanned document in EMR) wbc 17.4 Hgb 13.8 Hct 41.8 plt 271 Glc 124 (70-110) Cr 0.96 ASSESSMENT: GCA, PMR. Other PMH: Raynaud's,PMR, osteopenia, NSAID related PUD, glaucoma, RUL nodule (ill-defined 1.4 cm on MRI, no nodule noted on cxr), hemicrania continua, PAD (nonpalpable right DP pulse) and mitral valve prolapse. PLAN 1. GCA/PMR -former patient of Dr. Lawrence -diagnosed with PMR after she developed shoulder and pelvic girdle pain and headaches. 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 -Had remarkable improvement with prednisone in her shoulder and pelvic girdle pain but not her headaches. -trial of MTX (highest dose 15 mg) as steroid sparing agent (she has significant tremors with prednisone) ineffective -Actemra (started 10/19/16-dc'd 11/2016) -unable to taper prednisone lower than 10 mg daily due to worsening of her musculoskeletal pain. -continue mtx as instructed along with FA. -she was advised to increase prednisone dose to 9 mg daily -I asked that she have labs done 4 weeks after starting methotrexate (standing orders in EMR) 2. OSTEOPENIA -Jan 24 2016 DEXA: osteoporosis with T-score -2.6. Spine BMD stable, decline in the bone density of left hip but it is not statistically significant. -She had traumatic right ankle fracture after a fall at work s/p fixation 09/2011 -Actonel since at least 2007 until early 2012 -Fosamax since 01/2014. Off Fosamax for a period but then resumed it sometime after 12/2015 -Jan 28 2018 DEXA: osteopenia. T-score of -2.4. Change in BMD at spine: + 3.9%, at left hip: +3.6% and at right hip: -3.9%. Results d/w patient. -Dr. Sánchez discussed switching from Fosamax to Prolia. R/B/A of Prolia d/w patient. No recent or anticipated invasive dental procedures. She is agreeable to switching to Prolia. -will give prolia #1 today. -routine dental visits advised -fall/infection precautions -Patient counseled on calcium and vitamin D requirements. Recommended daily calcium intake (ideally by diet) is 3366-0856 mg per day. If she is unable to consistently meet this requirement by diet alone, she was advised to take calcium CITRATE supplements to make up the deficit. -recommended vitamin D is 800-1000 IU once a day -Next DEXA due: January 2020. 3. Raynaud's -stable -no digital ulcers 4. BLEEDING GASTRIC ULCER - NSAID RELATED (JUL 2011 EGD) -avoid NSAIDs 5. 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 Jolynn Stevens ([place]), workup negative per patient 6. GENERAL HEALTH MAINTENANCE -influenza vaccination given May 2018 -she will follow up with her PCP for her general health issues FU 3 mon, sooner if needed Palma Lovett APRN.PELT DROPPER PAP IG HPV HR Collected: 06/07/2018 Status: F Source: [place] 12:00 PM [facility] REPOSITORY Order Comment: CYTOLOGY INFORMATION: - CLINICAL INFORMATION: HYSTERECTOMY - DATE LMP/MENOPAUSE: - COLLECTION VIAL: Thin Prep Vial - EMPLOYMENT INTERVIEWER SOURCE: VAGINAL - COLLECTION TECHNIQUE: SPATULA ONLY Specimen Comment: [id number] Specimen Comment: Source.............Vagina Specimen Comment: LMP / Prev Treat...Hyst Specimen Comment: No. of containers..01 ThinPrep Vial TYPE CODE TESTS RESULT OUT OF RANGE REFERENCE UNITS LAB L7400.0800 . Normal DIAGN Comment Result Comment: NEGATIVE FOR INTRAEPITHELIAL LESION AND MALIGNANCY. REACTIVE CELLULAR CHANGES AND/OR REPAIR ARE PRESENT. LAB L7400.0900 . Normal ADEQ Comment Result Comment: Satisfactory for evaluation. No endocervical cells are present. This is consistent with a history of hysterectomy. LAB L7400.1400 . Normal PERFORM Comment Result Comment: Bj Singer, Carriage Feeder (ASCP) LAB L7400.1700 . Normal SIGN Comment Result Comment: Rajeev Freeman MD, Pathologist LAB L7400.2575 . Normal TEST METHOD Comment Result Comment: This liquid based ThinPrep(R) pap test was screened with the use of an image guided system. LAB L7400.2600 . Normal . COMM LAB L7400.2700 . Normal PAPSMR Comment Result Comment: The Pap smear is a screening test designed to aid in the detection of premalignant and malignant conditions of the uterine cervix. It is not a diagnostic procedure and should not be used as the sole means of detecting cervical cancer. Both false-positive and false-negative reports do occur. LAB L7400.2760 Negative Normal HPV APTIMA, Negative HR Result Comment: This test detects fourteen high-risk HPV types (16/18/31/33/35/39/45/ 51/52/56/58/59/66/68) without differentiation. Performed at: - [facility] [id number] Business Support Professional: Shari Cancino MD, Phone: [phone] Performed at: = - [facility] [address] [id number] Business Support Professional: Shari Cancino MD, Phone: [phone] Performed By: #### L7400.0377 #### [facility] (refer to report for specific site) refer to report for address and phone number X-[email or web address] N-TELOPEPTIDE Collected: 05/11/2018 Status: F Source: [place] 9:14 AM [facility] REPOSITORY TYPE CODE TESTS RESULT OUT OF RANGE REFERENCE UNITS LAB UNTX 14.4-75.0 nM/mM Creat X-Link 26.0 N-telopeptid e Performed By: #### UNTX2 #### [facility] [address] [place], [place] [address] CBC AND DIFFERENTIAL Collected: 05/09/2018 Status: F Source: [place] 5:54 PM [facility] REPOSITORY TYPE CODE TESTS RESULT OUT OF REFERENCE UNITS RANGE LAB WBC 3.70-11.00 k/uL WBC High 14.91 LAB RBC 3.90-5.20 m/uL RBC 4.11 LAB HGB 11.5-15.5 g/dL Hemoglobin 12.7 LAB HCT 36.0-46.0 % Hematocrit 41.9 LAB MCV 80.0-100.0 fL MCV High 101.9 LAB MCH 26.0-34.0 pG MCH 30.9 LAB MCHC 30.5-36.0 g/dL Low MCHC 30.3 LAB RDWCV 11.5-15.0 % RDW-CV 13.2 LAB PLTCT 150-400 k/uL Platelet Count 325 LAB MPV 9.0-12.7 fL MPV 12.0 LAB ANEUT % Neut% 76.8 LAB AANEUT 1.45-7.50 k/uL Abs Neut High 11.44 LAB ALYMP % Lymph% 18.2 LAB AALYMP 1.00-4.00 k/uL Abs Lymph 2.72 LAB AMONO % Pondera% 4.8 LAB AAMONO <0.87 k/uL Abs Pondera 0.72 LAB AEOS % Eosin% 0.0 LAB AAEOS <0.46 k/uL Abs Eosin <0.03 LAB ABASO % Baso% 0.2 LAB AABASO <0.11 k/uL Abs Baso 0.03 LAB AUNRBC 0 /100 WBC NRBCs 0.0 LAB ABNRBC <0.01 k/uL Absolute nRBC <0.01 LAB DTYP DTYPE Auto Diff Performed By: #### CBCDIF, WSR, CA, CRET1, CRP, HFP, VITD #### [facility] [address] [place], [place] [address] SED RATE WESTERGREN Collected: 05/09/2018 Status: F Source: [place] 5:54 PM [facility] REPOSITORY TYPE CODE TESTS RESULT OUT OF REFERENCE UNITS RANGE LAB WSR 0-20 mm/hr Sed Rate High W[place]gren 49 Performed By: #### CBCDIF, WSR, CA, CRET1, CRP, HFP, VITD #### [facility] [address] [place] [address] CALCIUM, TOTAL Collected: 05/09/2018 Status: F Source: [place] 5:54 PM [facility] REPOSITORY TYPE CODE TESTS RESULT OUT OF RANGE REFERENCE UNITS LAB CA 8.5-10.2 mg/dL Calcium, 9.6 Total Performed By: #### CBCDIF, WSR, CA, CRET1, CRP, HFP, VITD #### [facility] [address] [place] [address] CREATININE Collected: 05/09/2018 Status: F Source: [place] 5:54 PM [facility] REPOSITORY TYPE CODE TESTS RESULT OUT OF REFERENCE UNITS RANGE LAB CRET 0.58-0.96 mg/dL High Creatinine 1.06 LAB GFRAA eGFR- >60 Amer. LAB GFRNAA . eGFR-All Other Races 52 Result Comment: eGFR (Estimated GFR) Units of measure: mL/min/1.73 meters squared eGFR is derived from the reexpressed MDRD Study equation using the following parameters: serum creatinine, age, gender and race. The creatinine assay has been calibrated to be traceable to IDMS. An eGFR <60 mL/min/1.73m2 for >3 months is consistent with chronic kidney disease. Refer to KDOQI guidelines for clinical interpretation. In patients with unstable renal function, e.g. those with acute kidney injury, the eGFR may not accurately reflect actual GFR. Performed By: #### CBCDIF, WSR, CA, CRET1, CRP, HFP, VITD #### [facility] [address] [place] [address] C-REACTIVE PROTEIN Collected: 05/09/2018 Status: F Source: [place] 5:54 PM [facility] REPOSITORY TYPE CODE TESTS RESULT OUT OF REFERENCE UNITS RANGE LAB CRP <0.9 mg/dL C-Reactive 0.8 Protein Performed By: #### CBCDIF, WSR, CA, CRET1, CRP, HFP, VITD #### [facility] [address] [place] [address] HEPATIC FUNCTN PANEL Collected: 05/09/2018 Status: F Source: [place] 5:54 PM [facility] REPOSITORY TYPE CODE TESTS RESULT OUT OF REFERENCE UNITS RANGE LAB ALB 3.9-4.9 g/dL Albumin 4.1 LAB TBIL 0.2-1.3 mg/dL Low Bilirubin, Total <0.2 LAB CBIL <0.2 mg/dL Bilirubin,Conjuga <0.2 brooks LAB ALKP 32-117 U/L Alkaline Phosphatase 82 LAB AST 13-35 U/L AST 28 LAB ALT 7-38 U/L ALT 18 LAB TP 6.3-8.0 g/dL Protein, Total 7.5 Performed By: #### CBCDIF, WSR, CA, CRET1, CRP, HFP, VITD #### [facility] [address] [place] [address] VITAMIN D 25 HYDROXY Collected: 05/09/2018 Status: F Source: [place] 5:54 PM [facility] REPOSITORY TYPE CODE TESTS RESULT OUT OF REFERENCE UNITS RANGE LAB VITD 31.0-80.0 ng/mL Low Vitamin D 25 26.5 Hydroxy Result Comment: Classification of 25 [place] Vitamin D status: Insufficiency/Moderate Deficiency: < or = 30 ng/mL Sufficiency/Optimal Levels: 31 to 80 ng/mL Toxicity: > 100 ng/mL Test performed by chemiluminescent immunoassay. Performed By: #### CBCDIF, WSR, CA, CRET1, CRP, HFP, VITD #### [facility] [address] [place] [address] CNOV Observed: 05/09/2018 Status: COMPLETED Source: [place] 4:20 PM [facility] REPOSITORY Office Visit (RHE[place]) CECELIA QUIROZ ([id number]) 1950 F Date Time Provider Department 05/09/18 4:20 PM VALERIE SÁNCHEZ During your visit today, we recorded the following information about you: Temperature Pulse Blood pressure Weight 98.6 degrees 67/minute 115/52 66.7 kg Height 1.664 m Valerie Sánchez MD 05/26/2018 8:20 AM Signed Dx: GCA (temporal artery biopsy negative x2) 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 Prednisone is causing profuse sweating. -when she tried to reduce dose to 7.5 mg daily, her pain worsened (mainly from waist up). Most of her pain is in the neck,trapezius, shoulders and proximal arms -occasional aches in low back -knees have been aching more often. -sporadic sharp pain in the right shinto but it is fleeting -she is on mvi. No calcium or vitamin D supplements. -she has nontender cystic nodule at base of right ring finger. She reports that it has increased in size over the past couple of months Sites of pain: -proximal arms -neck/shoulder girdle -hands (off and on, especially in right index mcp) -infrequently in buttocks (infrequent and mild, better with stretching exercise) -right ankle (mainly with weight bearing) No pain elsewhere. No pain in the hip girdle or proximal legs. Swollen joints: none EMS: lasting 30 minutes Tolerating prednisone?: currently on pred 10 mg qd. She has profuse sweating with pred. REVIEW OF SYSTEMS (Positive symptoms in bold): Headache over temples - sometimes (see above) Scalp tenderness - sometimes (see above) Acute vision loss or visual complaints Jaw claudication Extremity claudication Myalgias of the proximal extremities (see above) Shoulder girdle pain (see above) Hip girdle pain REVIEW OF SYSTEMS (Positive symptoms in bold- 14 positive responses recorded) CONSTITUTIONAL: Fever, fatigue, unintentional weight loss EYES: Pain, redness, loss of vision, dryness EAR, NOSE, MOUTH, THROAT: nose bleeds, hearing loss, sores in mouth, swallowing problems, dry mouth CARDIOVASCULAR: chest pain, swelling in the feet or legs RESPIRATORY: shortness of breath, pain with breathing, chronic cough, coughing up blood GASTROINTESTINAL: heartburn, nausea, diarrhea (non bloody, not new, no worse), blood in the stool or black stool, abdominal pain GENITOURINARY: blood in urine (microscopic, saw skinning machine feeder), pain or burning on urination MUSCULOSKELETAL: joint pain, joint swelling, morning stiffness in joints , muscle weakness (generalized), back pain SKIN: rashes, sun sensitive rashes, color changes of hands or feet in the cold, hair loss, nail changes NEUROLOGICAL: Headaches, dizziness, numbness or tingling (sporadic tingling arms down to the hands R>L,no worse), memory loss, seizures HEMATOLOGIC/LYMPHATIC: Swollen glands, anemia ALLERGIES/IMMUNOLOGIC: allergies (other than medications), increased susceptibility to infection KNOWN MEDICAL CONDITIONS: Diabetes, thyroid disease, high blood pressure PAST MEDICAL HISTORY PAD (nonpalpable right DP pulse, saw Dr. Cutler in vascular medicine) Hematuria - 1999 (had workup including cystoscopy, etc. - entire workup negative. 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 PAST SURGICAL HISTORY Past Surgical History of - 1987 (ulnar ner transferred) Past Surgical History of - 1990 (bartholin cyst on vagina) Past Surgical History of - 2005 (bone spur to left shoulder) Total Abdom Hysterectomy - 1982 (cervical cancer, still has ovaries) Past Surgical History of - 2007 (left knee -- torn meniscus ([place])) skin biopsy Thyroid nodule FNA partial hysterectomy (ovaries not removed) appendectomy temporal artery bx x2 Right ankle fracture s/p fixation 09/2011 Right ankle fusion 07/2016 right cataract surgery FAMILY HISTORY no rheumatic autoimmune disorders, no psoriasis, no IBD (+)cancers - lung, liver, colon, uterine (+)diabetes SOCIAL HISTORY Marital Status: Number of children: 2 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 metoprolol tartrate, short acting, (LOPRESSOR) 25 mg tablet TAKE ONE TABLET BY MOUTH TWICE DAILY FOR TREMOR alendronate (FOSAMAX) 70 mg tablet Take 1 tablet by mouth once each week. predniSONE (DELTASONE) 2.5 mg tablet Using 10 mg and 2.5 mg tablets, take 25 mg qd. Reduce dose as directed. Do not go lower than 10 mg qd predniSONE (DELTASONE) 20 mg tablet TAKE TWO AND ONE-HALF TABLETS BY MOUTH EVERY MORNING predniSONE (DELTASONE) 10 mg tablet Using 10 mg and 20 mg tablets, take 40 mg qam. Reduce dose by 5 mg as directed. Do not go lower than 20 mg daily Omeprazole 40 mg capsule Take 1 capsule by mouth once daily. TRAVOPROST, BENZALKONIUM, (TRAVATAN OPHTHALMIC) Use in eyes. One drop daily at bedtime in both eyes. No current facility-administered medications for this visit. On Exam: BP 115/52 Pulse 67 Temp 37 ?C (98.6 ?F) (Oral) Ht 166.4 cm (5' 5.5) Wt 66.7 kg (147 lb) BMI 24.09 kg/m? GEN WD/WN, in nad, AANDOx3, normal gait HEART rrr, no mgr LUNGS ctab ABDOM +bs, soft, nt, nd PULSES Carotid: normal and equal bilaterally Brachial: normal and equal bilaterally Radial: normal and equal bilaterally Femoral: normal and equal bilaterally Post tib: normal and equal bilaterally No bruits MS Swollen joints: none Tender joints: none No synovitis No tenderness to palpation of the trapezius, lateral hips or muscles of the extremities. Jan 19 2014 BD AP SPINE/HIP - LEFT / COMPARISON: 01/17/2012 LUMBAR SPINE: The bone mineral density from L1 through L4 is 0.860 grams per square centimeter which yields a T-score of -1.7. This is unchanged. LEFT HIP: The bone mineral density of the total region of the hip is 0.780 grams per square centimeter which yields a T-score of -1.3. This is not significantly changed. LEFT FEMORAL NECK: The bone mineral density of the femoral neck is 0.596 grams per square centimeter which yields a T-score of -2.3. This is not significantly changed. IMPRESSION: Osteopenia, not significantly changed. Sep 10 2014 MRI CARDIAC IMPRESSION: NORMAL-SIZE THORACIC AND ABDOMINAL AORTA - mild segmental wall thickening of the descending thoracic and abdominal aorta in a nonspecific pattern Arch and Visceral Branch Vessels: unremarkable without evidence of stenosis - the hepatic artery is not well seen Normal left ventricular size and function on qualitative assessment No evidence of other abnormalities PRIOR EVALUATION Abnormal/Positive: sedimentation rate 59.outside labs: ESR 104, CRP 50.6 and Hgb 10.4 Normal/Negative: tsh, outside labs: JOANN, RF and CCP,temporal artery biopsy neg x2 Component Latest Ref Rng AND Units 09/25/2016 Hep B Core Ab, Total Negative Negative Hep C Antibody IA Negative Negative Hep B Surface Ag Negative Negative Hep B Surface Ab, Qual Negative Negative TB Result Negative Negative TB Antigen Response <0.35 IU/mL 0.01 Mitogen Response >0.49 IU/mL 2.53 TB Gamma Interpretation No evidence of current or previous infection with Mycobacterium tuberculosis. RECENT LABS Component Latest Ref Rng AND Units 12/14/2016 04/19/2017 10/19/2017 12/24/2017 05/04/2018 WSR 0 - 20 mm/hr 12 16 37 (H) 40 (H) 45 (H) CRP <0.9 mg/dL 0.7 0.3 0.3 1.1 (H) 0.7 02/26/17 [facility] (see scanned document in EMR) wbc 17.4 Hgb 13.8 Hct 41.8 plt 271 Glc 124 (70-110) Cr 0.96 RAPID 3: DISEASE ACTIVITY: Weighed Score Levels: 0 - 1: Near Remission 1.3 - 2.0: Low Severity 2.3 - 4.0: Moderate Severity 4.3 - 10.0: High Severity RAPID-3 Weighed Score 04/19/2017 05/21/2017 12/24/2017 RAPID 3 Weighed Score 2.3 3.4 3.7 ASSESSMENT: GCA, PMR. Other PMH: Raynaud's,PMR, osteopenia, NSAID related PUD, glaucoma, RUL nodule (ill-defined 1.4 cm on MRI, no nodule noted on cxr), hemicrania continua, PAD (nonpalpable right DP pulse) and mitral valve prolapse. On pred 10 mg qd + Fosamax PLAN 1. GCA/PMR -former patient of Dr. Lawrence -diagnosed with PMR after she developed shoulder and pelvic girdle pain and headaches. 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 -Had remarkable improvement with prednisone in her shoulder and pelvic girdle pain but not her headaches. -trial of MTX (highest dose 15 mg) as steroid sparing agent (she has significant tremors with prednisone) ineffective -Actemra (started 10/19/16-dc'd 11/2016) -unable to taper prednisone lower than 10 mg daily due to worsening of her musculoskeletal pain. She is willing to retry methotrexate as steroid sparing agent. -advise to abstain from ETOH while on this medication. Literature on methotrexate given. -instructed to to take methotrexate 10 mg once a week for 2 weeks then 20 mg once a week thereafter. -take folic acid 1 mg daily to reduce potential MTX SE. -continue prednisone to 10 mg daily. When able, reduce dose to 9 mg daily -results of Sep labs d/w patient -I asked that she have labs done today and then 4 weeks after starting methotrexate (standing orders in EMR) 2. OSTEOPENIA -Jan 24 2016 DEXA: osteoporosis with T-score -2.6. Spine BMD stable, decline in the bone density of left hip but it is not statistically significant. -She had traumatic right ankle fracture after a fall at work s/p fixation 09/2011 -Actonel since at least 2007 until early 2012 -Fosamax since 01/2014. Off Fosamax for a period but then resumed it sometime after 12/2015 -Jan 28 2018 DEXA: osteopenia. T-score of -2.4. Change in BMD at spine: + 3.9%, at left hip: +3.6% and at right hip: -3.9%. Results d/w patient. -discussed switching from Fosamax to Prolia. R/B/A of Prolia d/w patient. No recent or anticipated invasive dental procedures. Literature on Prolia given. She is agreeable to switching to Prolia -Prolia PA submitted. -I asked that she have labs done within a week's time: -CROSS-LINK N-TELOPEP -VITAMIN D 25 HYDROXY -CREATININE BLD -CALCIUM TOTAL BLD -Patient counseled on calcium and vitamin D requirements. Recommended daily calcium intake (ideally by diet) is 6722-5313 mg per day. If she is unable to consistently meet this requirement by diet alone, she was advised to take calcium CITRATE supplements to make up the deficit. -recommended vitamin D is 800-1000 IU once a day -Next DEXA due: January 2020. 3. Raynaud's -stable -no digital ulcers 4. BLEEDING GASTRIC ULCER - NSAID RELATED (JUL 2011 EGD) -avoid NSAIDs 5. 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 Jolynn Stevens ([place]), workup negative per patient 6. GENERAL HEALTH MAINTENANCE -influenza vaccination given May 21, 2017 -she will follow up with her PCP for her general health issues FU 4 -5mon, sooner if needed Valerie Sánchez MD 05/09/2018 5:36 PM Addendum Continue prednisone 10 mg once a day. When able, reduce prednisone to 9 mg daily Be sure to have blood tests done today and fasting urine test done within a week's time Please start methotrexate 4 tablets once a week for 2 weeks then 8 tablets once a week thereafter. To reduce potential side effects of methotrexate, please take folic acid 1 mg daily. Avoid alcoholic beverages while on methotrexate to reduce risk of liver toxicities Please have blood drawn week of Jun 10 - No paperwork or appointment is needed. You can go to any [facility] facility to have the labs drawn since the orders are in the system. Please ensure that your daily calcium intake (ideally by diet) is 0104-0914 mg per day. If you are unable to consistently meet this requirement by diet alone, please take calcium CITRATE supplements to make up the deficit. Do not take more than 500-600 mg of calcium at a time, rather divide up the dosage (eg. 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] correction systemic steroid user [Z79.52] Nodule of finger of right hand [R22.31] Order(s):C-REACTIVE PROTEIN (CRP) [SQCRP] Order #: [id number] STANDING SED RATE WESTERGREN [SQWSR] Order #: [id number] STANDING CROSS-LINK N-TELOPEP [SQUNTX2] Order #: [id number] FUTURE VITAMIN D 25 HYDROXY [SQVITD] Order #: [id number] FUTURE CREATININE BLD [SQCRET] Order #: [id number] FUTURE CALCIUM TOTAL BLD [SQCA] Order #: [id number] FUTURE US HAND/FINGER RT [8314458] Order #: [id number] FUTURE CBC + DIFF [SQCBCDIF] Order #: [id number] FUTURE HEPATIC FUNCTION PNL [SQHFP] Order #: [id number] FUTURE Prescriptions as of 05/09/2018 Sig: X PREDNISONE 5 MG TABLET Take 2 tablets by mouth once * METOPROLOL TARTRATE 25 MG TAB* TAKE ONE TABLET BY MOUTH TWIC* ALENDRONATE 70 MG TABLET Take 1 tablet by mouth once e* OMEPRAZOLE 40 MG CAPSULE,CIRO* Take 1 capsule by mouth once * TRAVATAN OPHTHALMIC Use in eyes. One drop daily * PREDNISONE 2.5 MG TABLET Using 10 mg and 2.5 mg tablet* PREDNISONE 20 MG TABLET TAKE TWO AND ONE-HALF TABLETS* PREDNISONE 10 MG TABLET Using 10 mg and 20 mg tablets* Medication notes this encounter PREDNISONE 2.5 MG TABLET >> Coleen Segura Ma 05/09/2018 4:46 PM >> COLEEN SEGURA MA Shelli May 09, 2018 4:46 PM Taking 10mg daily PREDNISONE 20 MG TABLET >> Coleen Segura Ma 05/09/2018 4:46 PM >> COLEEN SEGURA MA Shelli May 09, 2018 4:46 PM Taking 10mg daily PREDNISONE 10 MG TABLET >> Coleen Segura Ma 05/09/2018 4:45 PM >> COLEEN SEGURA MA Shelli May 09, 2018 4:45 PM Taking 10 mg daily Problem List As Of Date 05/09/2018 Noted Resolved Disorder of bone and cartilage [M89.9, M94.9] 03/05/2016 More... ALLERGIC RHINITIS NOS [J30.9] 10/29/2007 MVP (mitral valve prolapse) [I34.1] More... TOBACCO USE DISORDER [F17.200] Diverticulitis of large intestine without perfo*INVALID FOR* More... CARPAL TUNNEL SYNDROME [G56.00] 10/29/2007 HEMATURIA [599.7] 10/29/2007 More... 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 TEAR MED MENISC KNEE-CURRENT [VTO9675] INVALID FOR* Cellulitis and Abscess of Face [L03.211, L02.01]INVALID FOR* Adjustment Disorder with Anxiety [F43.22] INVALID FOR* More... Routine general medical examination at a [facility]*INVALID FOR*11/27/2011 Priority: Moderate Class: Chronic More... 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 When able, reduce prednisone to 9 mg daily Be sure to have blood tests done today and fasting urine test done within a week's time Please start methotrexate 4 tablets once a week for 2 weeks then 8 tablets once a week thereafter. To reduce potential side effects of methotrexate, please take folic acid 1 mg daily. Avoid alcoholic beverages while on methotrexate to reduce risk of liver toxicities Please have blood drawn week of Jun 10 - No paperwork or appointment is needed. You can go to any [facility] facility to have the labs drawn since the orders are in the system. Please ensure that your daily calcium intake (ideally by diet) is 4650-9843 mg per day. If you are unable to consistently meet this requirement by diet alone, please take calcium CITRATE supplements to make up the deficit. Do not take more than 500-600 mg of calcium at a time, rather divide up the dosage (eg. 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 Prednisone is causing profuse sweating. -when she tried to reduce dose to 7.5 mg daily, her pain worsened (mainly from waist up). Most of her pain is in the neck,trapezius, shoulders and proximal arms -occasional aches in low back -knees have been aching more often. -sporadic sharp pain in the right shinto but it is fleeting -she is on mvi. No calcium or vitamin D supplements. -she has nontender cystic nodule at base of right ring finger. She reports that it has increased in size over the past couple of months Sites of pain: -proximal arms -neck/shoulder girdle -hands (off and on, especially in right index mcp) -infrequently in buttocks (infrequent and mild, better with stretching exercise) -right ankle (mainly with weight bearing) No pain elsewhere. No pain in the hip girdle or proximal legs. Swollen joints: none EMS: lasting 30 minutes Tolerating prednisone?: currently on pred 10 mg qd. She has profuse sweating with pred. REVIEW OF SYSTEMS (Positive symptoms in bold): Headache over temples - sometimes (see above) Scalp tenderness - sometimes (see above) Acute vision loss or visual complaints Jaw claudication Extremity claudication Myalgias of the proximal extremities (see above) Shoulder girdle pain (see above) Hip girdle pain REVIEW OF SYSTEMS (Positive symptoms in bold- 14 positive responses recorded) CONSTITUTIONAL: Fever, fatigue, unintentional weight loss EYES: Pain, redness, loss of vision, dryness EAR, NOSE, MOUTH, THROAT: nose bleeds, hearing loss, sores in mouth, swallowing problems, dry mouth CARDIOVASCULAR: chest pain, swelling in the feet or legs RESPIRATORY: shortness of breath, pain with breathing, chronic cough, coughing up blood GASTROINTESTINAL: heartburn, nausea, diarrhea (non bloody, not new, no worse), blood in the stool or black stool, abdominal pain GENITOURINARY: blood in urine (microscopic, saw skinning machine feeder), pain or burning on urination MUSCULOSKELETAL: joint pain, joint swelling, morning stiffness in joints , muscle weakness (generalized), back pain SKIN: rashes, sun sensitive rashes, color changes of hands or feet in the cold, hair loss, nail changes NEUROLOGICAL: Headaches, dizziness, numbness or tingling (sporadic tingling arms down to the hands R>L,no worse), memory loss, seizures HEMATOLOGIC/LYMPHATIC: Swollen glands, anemia ALLERGIES/IMMUNOLOGIC: allergies (other than medications), increased susceptibility to infection KNOWN MEDICAL CONDITIONS: Diabetes, thyroid disease, high blood pressure PAST MEDICAL HISTORY PAD (nonpalpable right DP pulse, saw Dr. Cutler in vascular medicine) Hematuria - 1999 (had workup including cystoscopy, etc. - entire workup negative. 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 PAST SURGICAL HISTORY Past Surgical History of - 1987 (ulnar ner transferred) Past Surgical History of - 1990 (bartholin cyst on vagina) Past Surgical History of - 2005 (bone spur to left shoulder) Total Abdom Hysterectomy - 1982 (cervical cancer, still has ovaries) Past Surgical History of - 2007 (left knee -- torn meniscus ([place])) skin biopsy Thyroid nodule FNA partial hysterectomy (ovaries not removed) appendectomy temporal artery bx x2 Right ankle fracture s/p fixation 09/2011 Right ankle fusion 07/2016 right cataract surgery FAMILY HISTORY no rheumatic autoimmune disorders, no psoriasis, no IBD (+)cancers - lung, liver, colon, uterine (+)diabetes SOCIAL HISTORY Marital Status: Number of children: 2 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 metoprolol tartrate, short acting, (LOPRESSOR) 25 mg tablet TAKE ONE TABLET BY MOUTH TWICE DAILY FOR TREMOR alendronate (FOSAMAX) 70 mg tablet Take 1 tablet by mouth once each week. predniSONE (DELTASONE) 2.5 mg tablet Using 10 mg and 2.5 mg tablets, take 25 mg qd. Reduce dose as directed. Do not go lower than 10 mg qd predniSONE (DELTASONE) 20 mg tablet TAKE TWO AND ONE-HALF TABLETS BY MOUTH EVERY MORNING predniSONE (DELTASONE) 10 mg tablet Using 10 mg and 20 mg tablets, take 40 mg qam. Reduce dose by 5 mg as directed. Do not go lower than 20 mg daily Omeprazole 40 mg capsule Take 1 capsule by mouth once daily. TRAVOPROST, BENZALKONIUM, (TRAVATAN OPHTHALMIC) Use in eyes. One drop daily at bedtime in both eyes. No current facility-administered medications for this visit. On Exam: BP 115/52 Pulse 67 Temp 37 ?C (98.6 ?F) (Oral) Ht 166.4 cm (5' 5.5) Wt 66.7 kg (147 lb) BMI 24.09 kg/m? GEN WD/WN, in nad, AANDOx3, normal gait HEART rrr, no mgr LUNGS ctab ABDOM +bs, soft, nt, nd PULSES Carotid: normal and equal bilaterally Brachial: normal and equal bilaterally Radial: normal and equal bilaterally Femoral: normal and equal bilaterally Post tib: normal and equal bilaterally No bruits MS Swollen joints: none Tender joints: none No synovitis No tenderness to palpation of the trapezius, lateral hips or muscles of the extremities. Jan 19 2014 BD AP SPINE/HIP - LEFT / COMPARISON: 01/17/2012 LUMBAR SPINE: The bone mineral density from L1 through L4 is 0.860 grams per square centimeter which yields a T-score of -1.7. This is unchanged. LEFT HIP: The bone mineral density of the total region of the hip is 0.780 grams per square centimeter which yields a T-score of -1.3. This is not significantly changed. LEFT FEMORAL NECK: The bone mineral density of the femoral neck is 0.596 grams per square centimeter which yields a T-score of -2.3. This is not significantly changed. IMPRESSION: Osteopenia, not significantly changed. Sep 10 2014 MRI CARDIAC IMPRESSION: NORMAL-SIZE THORACIC AND ABDOMINAL AORTA - mild segmental wall thickening of the descending thoracic and abdominal aorta in a nonspecific pattern Arch and Visceral Branch Vessels: unremarkable without evidence of stenosis - the hepatic artery is not well seen Normal left ventricular size and function on qualitative assessment No evidence of other abnormalities PRIOR EVALUATION Abnormal/Positive: sedimentation rate 59.outside labs: ESR 104, CRP 50.6 and Hgb 10.4 Normal/Negative: tsh, outside labs: JOANN, RF and CCP,temporal artery biopsy neg x2 Component Latest Ref Rng AND Units 09/25/2016 Hep B Core Ab, Total Negative Negative Hep C Antibody IA Negative Negative Hep B Surface Ag Negative Negative Hep B Surface Ab, Qual Negative Negative TB Result Negative Negative TB Antigen Response <0.35 IU/mL 0.01 Mitogen Response >0.49 IU/mL 2.53 TB Gamma Interpretation No evidence of current or previous infection with Mycobacterium tuberculosis. RECENT LABS Component Latest Ref Rng AND Units 12/14/2016 04/19/2017 10/19/2017 12/24/2017 05/04/2018 WSR 0 - 20 mm/hr 12 16 37 (H) 40 (H) 45 (H) CRP <0.9 mg/dL 0.7 0.3 0.3 1.1 (H) 0.7 02/26/17 [facility] (see scanned document in EMR) wbc 17.4 Hgb 13.8 Hct 41.8 plt 271 Glc 124 (70-110) Cr 0.96 RAPID 3: DISEASE ACTIVITY: Weighed Score Levels: 0 - 1: Near Remission 1.3 - 2.0: Low Severity 2.3 - 4.0: Moderate Severity 4.3 - 10.0: High Severity RAPID-3 Weighed Score 04/19/2017 05/21/2017 12/24/2017 RAPID 3 Weighed Score 2.3 3.4 3.7 ASSESSMENT: GCA, PMR. Other PMH: Raynaud's,PMR, osteopenia, NSAID related PUD, glaucoma, RUL nodule (ill-defined 1.4 cm on MRI, no nodule noted on cxr), hemicrania continua, PAD (nonpalpable right DP pulse) and mitral valve prolapse. On pred 10 mg qd + Fosamax PLAN 1. GCA/PMR -former patient of Dr. Lawrence -diagnosed with PMR after she developed shoulder and pelvic girdle pain and headaches. 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 -Had remarkable improvement with prednisone in her shoulder and pelvic girdle pain but not her headaches. -trial of MTX (highest dose 15 mg) as steroid sparing agent (she has significant tremors with prednisone) ineffective -Actemra (started 10/19/16-dc'd 11/2016) -unable to taper prednisone lower than 10 mg daily due to worsening of her musculoskeletal pain. She is willing to retry methotrexate as steroid sparing agent. -advise to abstain from ETOH while on this medication. Literature on methotrexate given. -instructed to to take methotrexate 10 mg once a week for 2 weeks then 20 mg once a week thereafter. -take folic acid 1 mg daily to reduce potential MTX SE. -continue prednisone to 10 mg daily. When able, reduce dose to 9 mg daily -results of Sep labs d/w patient -I asked that she have labs done today and then 4 weeks after starting methotrexate (standing orders in EMR) 2. OSTEOPENIA -Jan 24 2016 DEXA: osteoporosis with T-score -2.6. Spine BMD stable, decline in the bone density of left hip but it is not statistically significant. -She had traumatic right ankle fracture after a fall at work s/p fixation 09/2011 -Actonel since at least 2007 until early 2012 -Fosamax since 01/2014. Off Fosamax for a period but then resumed it sometime after 12/2015 -Jan 28 2018 DEXA: osteopenia. T-score of -2.4. Change in BMD at spine: + 3.9%, at left hip: +3.6% and at right hip: -3.9%. Results d/w patient. -discussed switching from Fosamax to Prolia. R/B/A of Prolia d/w patient. No recent or anticipated invasive dental procedures. Literature on Prolia given. She is agreeable to switching to Prolia -Prolia PA submitted. -I asked that she have labs done within a week's time: -CROSS-LINK N-TELOPEP -VITAMIN D 25 HYDROXY -CREATININE BLD -CALCIUM TOTAL BLD -Patient counseled on calcium and vitamin D requirements. Recommended daily calcium intake (ideally by diet) is 0848-7578 mg per day. If she is unable to consistently meet this requirement by diet alone, she was advised to take calcium CITRATE supplements to make up the deficit. -recommended vitamin D is 800-1000 IU once a day -Next DEXA due: January 2020. 3. Raynaud's -stable -no digital ulcers 4. BLEEDING GASTRIC ULCER - NSAID RELATED (JUL 2011 EGD) -avoid NSAIDs 5. 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 Jolynn Stevens ([place]), workup negative per patient 6. GENERAL HEALTH MAINTENANCE -influenza vaccination given May 21, 2017 -she will follow up with her PCP for her general health issues FU 4 -5mon, sooner if needed SED RATE WESTERGREN Collected: 05/04/2018 Status: F Source: [place] 10:40 AM [facility] REPOSITORY TYPE CODE TESTS RESULT OUT OF REFERENCE UNITS RANGE LAB WSR 0-20 mm/hr Sed Rate High Westergren 45 Performed By: #### WSR, CRP #### [facility] [address] [place], [place] [address] C-REACTIVE PROTEIN Collected: 05/04/2018 Status: F Source: [place] 10:40 AM [facility] REPOSITORY TYPE CODE TESTS RESULT OUT OF REFERENCE UNITS RANGE LAB CRP <0.9 mg/dL C-Reactive 0.7 Protein Performed By: #### WSR, CRP #### [facility] [address] [place], [place] [address] BD DXA - AXIAL Observed: 01/28/2018 Status: F Source: [place] SKELETON 8:33 AM [facility] REPOSITORY * * *Final Report* * * DATE OF EXAM: Jan 28 2018 8:33AM [facility] 0804 - BD DXA - AXIAL SKELETON / PROCEDURE REASON: multiple diagnoses * * * * Physician Interpretation * * * * PROCEDURE: BD DXA - AXIAL SKELETON INDICATION: Giant cell arteritis with polymyalgia rheumatica Age-related osteoporosis without current pathological fracture correction (current) use of systemic steroids TECHNIQUE: Low dose AP spine and hip images COMPARISON: 01/24/2016 LUMBAR SPINE: The bone mineral density from L1 through L4 is 0.885 grams per square centimeter which yields a T-score of -1.5. This is 3.9% improved. LEFT HIP: The bone mineral density of the total region of the hip is 0.777 grams per square centimeter which yields a T-score of -1.4. . LEFT FEMORAL NECK: The bone mineral density of the femoral neck is 0.584 grams per square centimeter which yields a T-score of -2.4. This is 3.6% improved. RIGHT HIP: The bone mineral density of the total region of the hip is 0.741 grams per square centimeter which yields a T-score of -1.6. . RIGHT FEMORAL NECK: The bone mineral density of the femoral neck is 0.588 grams per square centimeter which yields a T-score of -2.4. This is 3.9% worse. 10-year Fracture Risk (FRAX): Major osteoporotic fracture risk 32% Hip fracture risk 12% IMPRESSION: Severe osteopenia in both femoral necks. WORLD HEALTH ORG. CLASSIFICATION OF BONE MASS CLASSIFICATION T-SCORE Normal Greater than -1 Low Bone Mass Between -1 and -2.5 (Osteopenia) Osteoporosis Less than or equal to -2.5 Manager [employer]: [employer] Transcribe Date/Time: Jan 28 2018 8:53A Dictated by : LUCILA HASKINS MD This examination was interpreted and the report reviewed and electronically signed by: LUCILA HASKINS MD on Jan 28 2018 8:55AM EST [id number] PROGRESS Observed: 01/28/2018 Status: COMPLETED Source: [place] 8:09 AM [facility] REPOSITORY HNO ID: [id number] Author: Irene Fowler Rt Service: (none) Author Type: (none) Type: Progress Notes Filed: 01/28/2018 8:32 AM Note Text: Cecelia Quiroz January 28, 2018 [id number] Double identification: Patient identified by name and Bone Density Completed. Irene Fowler Rt patient told of radiation jk 8:30 am not PROGRESS Observed: 01/18/2018 Status: COMPLETED Source: [place] 8:01 AM [facility] REPOSITORY HNO ID: [id number] Author: Miah Olmstead Service: (none) Author Type: Physician Type: Progress Notes Filed: 01/18/2018 5:30 PM Note Text: CC: Cecelia Quiroz is a 67 year old female who presents to the office for physical HPI: PMR, giant cell arteritis, overall is stable, still intermittent flare ups, seeing Dr. Sánchez for Route Clerk care, no recent rx changes Mood, stable, not on medications Tremor, hx of ? MVP and mild tricuspid and mitral regurgitation, last EKG and echo >4 years ago, no new symptoms. Does admit to some dyspnea with exertion. Still is smoking- not interested in quitting at this time. No chest pains Skin lesion left chest wall, concerns about skin cancer. Hx of diverticulitis, no recent symptoms, rare flare ups, upcoming travel, asking for rx for travel just in case needed PAST MEDICAL HISTORY Diagnosis Date - Autoimmune disease (HCC) - Cancer (HCC) 1982 Uterine - Depression - Disorder of bone and cartilage, unspecified - Diverticulitis of colon (without mention of hemorrhage)(562.11) 2003 - GCA (giant cell arteritis) ([facility]) bx negative - Glaucoma - Hematuria 1999 had workup including cystoscopy, etc. - entire workup negative. No longer happening. - Iron deficiency anemia, unspecified ? related to UGI source from NSAID's - PMR (polymyalgia rheumatica) (HCC) - Raynaud's disease /phenomenon - Steroid long-term use - Tobacco use disorder PAST SURGICAL HISTORY Procedure Laterality Date - APPENDECTOMY 1982 incidental - CATARACT EXTRACTION HX bilateral - COLONOSCOPY 2012 - EGD W/O OR W/BRUSH/WASH 07/05/15 EGD - LEFT HEART CATH,PERCUTANEOUS 2011 Cardiac cath, L heart. Normal - PAST SURGICAL HISTORY OF 1987 ulnar ner transferred - PAST SURGICAL HISTORY OF 1990 bartholin cyst on vagina - PAST SURGICAL HISTORY OF 2005 bone spur to left shoulder - PAST SURGICAL HISTORY OF 2007 left knee -- torn meniscus ([place]) - PAST SURGICAL HISTORY OF 2011 ORIF R ankle - TOTAL ABDOM HYSTERECTOMY 1982 cervical cancer, still has ovaries Social History: Social History Substance Use Topics - Smoking status: Current Every Day Smoker Packs/day: 1.00 Years: 35.00 Types: Cigarettes - Smokeless tobacco: Never Used - Alcohol use No FAMILY HISTORY Problem Relation Age of Onset - Diabetes Father late in life - Coronary Artery Disease Father Hx of [place], age 71 - Cancer Sister lung CA - 52 - Cancer Brother lymphoma - 55; h/o kidney transplant - Cancer Brother age 61- metastatic - not sure what primary was Current Outpatient prescriptions: predniSONE (DELTASONE) 5 mg tablet Take 2 tablets by mouth once daily. Reduce dose as directed. Do not reduce lower than 5 mg qd alendronate (FOSAMAX) 70 mg tablet Take 1 tablet by mouth once each week. metoprolol tartrate, short acting, (LOPRESSOR) 25 mg tablet TAKE ONE TABLET BY MOUTH TWICE DAILY FOR TREMOR predniSONE (DELTASONE) 2.5 mg tablet Using 10 mg and 2.5 mg tablets, take 25 mg qd. Reduce dose as directed. Do not go lower than 10 mg qd predniSONE (DELTASONE) 20 mg tablet TAKE TWO AND ONE-HALF TABLETS BY MOUTH EVERY MORNING predniSONE (DELTASONE) 10 mg tablet Using 10 mg and 20 mg tablets, take 40 mg qam. Reduce dose by 5 mg as directed. Do not go lower than 20 mg daily Omeprazole 40 mg capsule Take 1 capsule by mouth once daily. TRAVOPROST, BENZALKONIUM, (TRAVATAN OPHTHALMIC) Use in eyes. One drop daily at bedtime in both eyes. benzonatate (TESSALON PERLE) 100 mg capsule Take 1-2 capsules by mouth three times daily as needed. gabapentin (NEURONTIN) 300 mg capsule Take 1 capsule by mouth daily at bedtime. furosemide (LASIX) 40 mg tablet Take 1 tablet by mouth once daily. Allergies: ALLERGIES No Known Allergies ROS: See HPI PE: 01/18/18 0748 BP: 120/60 Pulse: 60 Resp: 16 Temp: 36.4 ?C (97.6 ?F) TempSrc: Left Tympanic Weight: 65.3 kg (144 lb) Height: 166.4 cm (5' 5.5) Gen: AANDO, NAD, non-toxic appearing, Pleasant, cooperative HEENT: NT/AC, PERRLA, EOMs intact b/l, nares clear and patent b/l, pharynx without erythema, exudate or lesions. Uvula midline. EACs without erythema or debris. TMs pearly hernandez with intact landmarks b/l. Neck: supple, No cervical LAD, no thyromegaly, no carotid bruits CV: RRR, normal S1 S2, 2/6 HSM RUSB murmurs, no gallops, no rubs, Pulses 2+ and symmetric in UE and LE b/l Lungs: normal respiratory effort, diffusely mildly diminished Abd: soft, NT, ND, +BS, no hepatosplenomegaly MS: multiple joint deformities of hands, poor lumbar spine ROM with paraspinal muscle tension, no spine TTP Neuro: CN II-XII intact b/l, strength 5/5 b/l UE and LE, DTRs 2/4 UE and LE, sensation intact. Skin: warm, dry, intact, actinic keratosis left chest wall ASSESSMENT/PLAN: 1. 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) - ICD9: 446.5, 725, ICD10: M31.5 (primary diagnosis) - echo as ordered, EKG NSR today in office - ECHO 2. Need for shingles vaccine - ICD9: V04.89, ICD10: Z23 - VARICELLA-ZOSTER GLYCOE VACC-AS01B ADJ(PF) 50 MCG/0.5 ML IM SUSPENSION 3. Osteoporosis, postmenopausal - ICD9: 733.01, ICD10: M81.0 - Reviewed the need for Calcium and Vitamin D supplements and weight bearing exercise as tolerated 4. MVP (mitral valve prolapse) - ICD9: 424.0, ICD10: I34.1 - rx refilled, recheck echo - METOPROLOL TARTRATE 25 MG TABLET - ECHO - ECG COMPLETE W INTERPRETATION 5. Undiagnosed cardiac murmurs - ICD9: 785.2, ICD10: R01.1 - rx metoprolol refilled, recheck echo - ECHO - ECG COMPLETE W INTERPRETATION 6. Diverticulitis of large intestine without perforation or abscess without bleeding - ICD9: 562.11, ICD10: K57.32 - rx if needed for travel - AMOXICILLIN 875 MG-POTASSIUM CLAVULANATE 125 MG TABLET 7. Actinic keratosis - ICD9: 702.0, ICD10: L57.0 - treated in office today with cryotherapy Miah Olmstead DO To ER if develops chest pain, shortness of breath, or severe worsening of symptoms. Discussed risks, benefits, alternatives, and potential side effects of medications. Patient expressed understanding and agreed with the plan. Miah Olmstead DO [address] [place] [address] CNOV Observed: 01/18/2018 Status: COMPLETED Source: [place] 7:40 AM [facility] REPOSITORY Office Visit (FAMPWS) QUIROZ,CECELIA Ibis ([id number]) 1950 F Date Time Provider Department 01/18/18 7:40 AM MIAH OLMSTEAD During your visit today, we recorded the following information about you: Temperature Pulse Respiration Blood pressure 97.6 degrees 60/minute 16/minute 120/60 Weight Height 65.3 kg 1.664 m Miah Olmstead DO 01/18/2018 5:30 PM Signed CC: Cecelia Baumann Richie is a 67 year old female who presents to the office for physical HPI: PMR, giant cell arteritis, overall is stable, still intermittent flare ups, seeing Dr. Sánchez for Route Clerk care, no recent rx changes Mood, stable, not on medications Tremor, hx of ? MVP and mild tricuspid and mitral regurgitation, last EKG and echo >4 years ago, no new symptoms. Does admit to some dyspnea with exertion. Still is smoking- not interested in quitting at this time. No chest pains Skin lesion left chest wall, concerns about skin cancer. Hx of diverticulitis, no recent symptoms, rare flare ups, upcoming travel, asking for rx for travel just in case needed PAST MEDICAL HISTORY Diagnosis Date - Autoimmune disease (HCC) - Cancer (HCC) 1982 Uterine - Depression - Disorder of bone and cartilage, unspecified - Diverticulitis of colon (without mention of hemorrhage)(562.11) 2003 - GCA (giant cell arteritis) ([facility]) bx negative - Glaucoma - Hematuria 1999 had workup including cystoscopy, etc. - entire workup negative. No longer happening. - Iron deficiency anemia, unspecified ? related to UGI source from NSAID's - PMR (polymyalgia rheumatica) ([facility]) - Raynaud's disease /phenomenon - Steroid long-term use - Tobacco use disorder PAST SURGICAL HISTORY Procedure Laterality Date - APPENDECTOMY 1982 incidental - CATARACT EXTRACTION HX bilateral - COLONOSCOPY 2012 - EGD W/O OR W/BRUSH/WASH 07/05/15 EGD - LEFT HEART CATH,PERCUTANEOUS 2011 Cardiac cath, L heart. Normal - PAST SURGICAL HISTORY OF 1987 ulnar ner transferred - PAST SURGICAL HISTORY OF 1990 bartholin cyst on vagina - PAST SURGICAL HISTORY OF 2005 bone spur to left shoulder - PAST SURGICAL HISTORY OF 2007 left knee -- torn meniscus ([place]) - PAST SURGICAL HISTORY OF 2011 ORIF R ankle - TOTAL ABDOM HYSTERECTOMY 1982 cervical cancer, still has ovaries Social History: Social History Substance Use Topics - Smoking status: Current Every Day Smoker Packs/day: 1.00 Years: 35.00 Types: Cigarettes - Smokeless tobacco: Never Used - Alcohol use No FAMILY HISTORY Problem Relation Age of Onset - Diabetes Father late in life - Coronary Artery Disease Father Hx of [place], age 71 - Cancer Sister lung CA - 52 - Cancer Brother lymphoma - 55; h/o kidney transplant - Cancer Brother age 61- metastatic - not sure what primary was Current Outpatient prescriptions: predniSONE (DELTASONE) 5 mg tablet Take 2 tablets by mouth once daily. Reduce dose as directed. Do not reduce lower than 5 mg qd alendronate (FOSAMAX) 70 mg tablet Take 1 tablet by mouth once each week. metoprolol tartrate, short acting, (LOPRESSOR) 25 mg tablet TAKE ONE TABLET BY MOUTH TWICE DAILY FOR TREMOR predniSONE (DELTASONE) 2.5 mg tablet Using 10 mg and 2.5 mg tablets, take 25 mg qd. Reduce dose as directed. Do not go lower than 10 mg qd predniSONE (DELTASONE) 20 mg tablet TAKE TWO AND ONE-HALF TABLETS BY MOUTH EVERY MORNING predniSONE (DELTASONE) 10 mg tablet Using 10 mg and 20 mg tablets, take 40 mg qam. Reduce dose by 5 mg as directed. Do not go lower than 20 mg daily Omeprazole 40 mg capsule Take 1 capsule by mouth once daily. TRAVOPROST, BENZALKONIUM, (TRAVATAN OPHTHALMIC) Use in eyes. One drop daily at bedtime in both eyes. benzonatate (TESSALON PERLE) 100 mg capsule Take 1-2 capsules by mouth three times daily as needed. gabapentin (NEURONTIN) 300 mg capsule Take 1 capsule by mouth daily at bedtime. furosemide (LASIX) 40 mg tablet Take 1 tablet by mouth once daily. Allergies: ALLERGIES No Known Allergies ROS: See HPI PE: 01/18/18 0748 BP: 120/60 Pulse: 60 Resp: 16 Temp: 36.4 ?C (97.6 ?F) TempSrc: Left Tympanic Weight: 65.3 kg (144 lb) Height: 166.4 cm (5' 5.5) Gen: AANDO, NAD, non-toxic appearing, Pleasant, cooperative HEENT: NT/AC, PERRLA, EOMs intact b/l, nares clear and patent b/l, pharynx without erythema, exudate or lesions. Uvula midline. EACs without erythema or debris. TMs pearly hernandez with intact landmarks b/l. Neck: supple, No cervical LAD, no thyromegaly, no carotid bruits CV: RRR, normal S1 S2, 2/6 HSM RUSB murmurs, no gallops, no rubs, Pulses 2+ and symmetric in UE and LE b/l Lungs: normal respiratory effort, diffusely mildly diminished Abd: soft, NT, ND, +BS, no hepatosplenomegaly MS: multiple joint deformities of hands, poor lumbar spine ROM with paraspinal muscle tension, no spine TTP Neuro: CN II-XII intact b/l, strength 5/5 b/l UE and LE, DTRs 2/4 UE and LE, sensation intact. Skin: warm, dry, intact, actinic keratosis left chest wall ASSESSMENT/PLAN: 1. 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) - ICD9: 446.5, 725, ICD10: M31.5 (primary diagnosis) - echo as ordered, EKG NSR today in office - ECHO 2. Need for shingles vaccine - ICD9: V04.89, ICD10: Z23 - VARICELLA-ZOSTER GLYCOE VACC-AS01B ADJ(PF) 50 MCG/0.5 ML IM SUSPENSION 3. Osteoporosis, postmenopausal - ICD9: 733.01, ICD10: M81.0 - Reviewed the need for Calcium and Vitamin D supplements and weight bearing exercise as tolerated 4. MVP (mitral valve prolapse) - ICD9: 424.0, ICD10: I34.1 - rx refilled, recheck echo - METOPROLOL TARTRATE 25 MG TABLET - ECHO - ECG COMPLETE W INTERPRETATION 5. Undiagnosed cardiac murmurs - ICD9: 785.2, ICD10: R01.1 - rx metoprolol refilled, recheck echo - ECHO - ECG COMPLETE W INTERPRETATION 6. Diverticulitis of large intestine without perforation or abscess without bleeding - ICD9: 562.11, ICD10: K57.32 - rx if needed for travel - AMOXICILLIN 875 MG-POTASSIUM CLAVULANATE 125 MG TABLET 7. Actinic keratosis - ICD9: 702.0, ICD10: L57.0 - treated in office today with cryotherapy Miah Olmstead DO To ER if develops chest pain, shortness of breath, or severe worsening of symptoms. Discussed risks, benefits, alternatives, and potential side effects of medications. Patient expressed understanding and agreed with the plan. Miah Olmstead DO [address] [place] [address] Referring Provider: MIAH OLMSTEAD [[id number]] Allergies As of Date: 01/18/2018 (No Known Allergies) Date Reviewed: 01/18/2018 Reviewed by: Miah Olmstead - Fully Assessed Reason for Visit: Physical [83] Primary Visit Diagnosis: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) [M31.5] Other Visit Diagnoses:Need for shingles vaccine [Z23] Osteoporosis, 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] MVP (mitral valve prolapse) [I34.1] Undiagnosed cardiac murmurs [R01.1] Diverticulitis of large intestine without perforation or abscess without bleeding [K57.32] Actinic keratosis [L57.0] Order(s):metoprolol tartrate, short acting, (LOPRESSOR) 25 mg tabletTAKE ONE TABLET BY MOUTH TWICE DAILY FOR TREMORDisp: 180 tabletRfl: 1 zoster vaccine, recombinant, adjuvanted, (SHINGRIX, PF,) 50 mcg/0.5 mL injectionInject 0.5 mL intramuscularly one time only for 1 dose.Disp: 0.5 mLRfl: 0 ECHO [[id number]] Order #: [id number]: 1 FUTURE ECG COMPLETE W INTERPRETATION [ECG01] Order #: [id number] FUTURE amoxicillin-clavulanic acid (AUGMENTIN) 875-125 mg per tabletTake 1 tablet by mouth twice daily for 14 days.Disp: 28 tabletRfl: 0 Prescriptions as of 01/18/2018 Sig: METOPROLOL TARTRATE 25 MG TAB* TAKE ONE TABLET BY MOUTH TWIC* PREDNISONE 5 MG TABLET Take 2 tablets by mouth once * ALENDRONATE 70 MG TABLET Take 1 tablet by mouth once e* PREDNISONE 2.5 MG TABLET Using 10 mg and 2.5 mg tablet* PREDNISONE 20 MG TABLET TAKE TWO AND ONE-HALF TABLETS* PREDNISONE 10 MG TABLET Using 10 mg and 20 mg tablets* OMEPRAZOLE 40 MG CAPSULE,CIRO* Take 1 capsule by mouth once * TRAVATAN OPHTHALMIC Use in eyes. One drop daily * VARICELLA-ZOSTER GLYCOE VACC-* Inject 0.5 mL intramuscularly* AMOXICILLIN 875 MG-POTASSIUM * Take 1 tablet by mouth twice * Medication notes this encounter BENZONATATE 100 MG CAPSULE >> Sravanthi Solorzano LPN 01/18/2018 7:50 AM >> SRAVANTHI SOLORZANO LPN SunJan 18, 2018 7:50 AM Finished GABAPENTIN 300 MG CAPSULE >> Sravanthi Solorzano LPN 01/18/2018 7:50 AM >> SRAVANTHI SOLORZANO LPN SunJan 18, 2018 7:50 AM Finished FUROSEMIDE 40 MG TABLET >> Sravanthi Solorzano LPN 01/18/2018 7:50 AM >> SRAVANTHI SOLORZANO LPN SunJan 18, 2018 7:50 AM Finished Problem List As Of Date 01/18/2018 Noted Resolved Disorder of bone and cartilage [M89.9, M94.9] 03/05/2016 More... ALLERGIC RHINITIS NOS [J30.9] 10/29/2007 MVP (mitral valve prolapse) [I34.1] More... TOBACCO USE DISORDER [F17.200] Diverticulitis of large intestine without perfo*INVALID FOR* More... CARPAL TUNNEL SYNDROME [G56.00] 10/29/2007 HEMATURIA [599.7] 10/29/2007 More... 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 TEAR MED MENISC KNEE-CURRENT [JCE4210] INVALID FOR* Cellulitis and Abscess of Face [L03.211, L02.01]INVALID FOR* Adjustment Disorder with Anxiety [F43.22] INVALID FOR* More... [facility]*INVALID FOR*11/27/2011 Priority: Moderate Class: Chronic More... 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] INVALID FOR* Infected sebaceous cyst [L72.3, L08.9] INVALID FOR* Cephalalgia [R51] INVALID FOR* Family history of brain aneurysm [Z82.49] INVALID FOR* Giant cell arteritis with polymyalgia rheumatic*INVALID FOR* correction systemic steroid user [Z79.52] INVALID FOR* Actinic keratosis [L57.0] INVALID FOR* Undiagnosed cardiac murmurs [R01.1] INVALID FOR* Prescriptions ordered this encounter Disp Refills Start End METOPROLOL TARTRATE 25 MG TABLET 180 * 1 01/18/2018 Sig: TAKE ONE TABLET BY MOUTH TWICE DAILY FOR TREMOR VARICELLA-ZOSTER GLYCOE VACC-AS01B A* 0.5 * 0 01/18/2018 01/18/2018 Class: Print RX Route: INTRAMUSCULA Sig: Inject 0.5 mL intramuscularly one time only for 1 dose. AMOXICILLIN 875 MG-POTASSIUM CLAVULA* 28 t* 0 01/18/2018 02/01/2018 Class: Print RX Route: ORAL Sig: Take 1 tablet by mouth twice daily for 14 days. Medications Discontinued During This Encounter furosemide (LASIX) 40 mg tablet 30 t* 1 03/02/2017 01/18/2018 Route: ORAL Sig: Take 1 tablet by mouth once daily. Patient not taking: Reported on 12/24/2017 Disc: Reason for discontinue is not on file. gabapentin (NEURONTIN) 300 mg capsule 30 c* 0 05/25/2017 01/18/2018 Route: ORAL Sig: Take 1 capsule by mouth daily at bedtime. Patient not taking: Reported on 12/24/2017 Disc: Reason for discontinue is not on file. benzonatate (TESSALON PERLE) 100 mg * 30 c* 0 09/01/2017 01/18/2018 Route: ORAL Sig: Take 1-2 capsules by mouth three times daily as needed. Patient not taking: Reported on 12/24/2017 Disc: Reason for discontinue is not on file. metoprolol tartrate, short acting, (* 180 * 1 08/07/2017 01/18/2018 Sig: TAKE ONE TABLET BY MOUTH TWICE DAILY FOR TREMOR Disc: Reason for discontinue is not on file. Encounter Status:Closed by MIAH OLMSTEAD DO on 01/18/18 LIPID PANEL, BASIC Collected: 01/12/2018 Status: F Source: [facility] 8[facility]05 AM [facility] REPOSITORY TYPE CODE TESTS RESULT OUT OF REFERENCE UNITS RANGE LAB CHOL <200 mg/dL Cholesterol 178 Result Comment: <200 mg/dL, Desirable 200-239 mg/dL, Borderline high >239 mg/dL, High LAB TRIGLY <150 mg/dL Triglyceride 131 Result Comment: <150 mg/dL, Normal 150-199 mg/dL, Borderline high 200-499 mg/dL, High >499 mg/dL, Very high LAB HDL >39 mg/dL HDL-Cholesterol 67 Result Comment: 40-59 mg/dL, Acceptable >59 mg/dL, High: Negative risk factor for coronary heart disease <40 mg/dL, Low: Positive risk factor for coronary heart disease LAB LDL <100 mg/dL LDL-Cholesterol 85 Result Comment: <100 mg/dL, Optimal 100-129 mg/dL, Near optimal/above optimal 130-159 mg/dL, Borderline high 160-189 mg/dL, High >189 mg/dL, Very high Secondary prevention optimal LDL Cholesterol levels are recommended to be < 70 mg/dL LAB NONHDL <130 mg/dL Non HDL Cholesterol 111 Result Comment: <130 mg/dL, Optimal 130-159 mg/dL, Near optimal/above optimal 160-189 mg/dL, Borderline high 190-219 mg/dL, High >219 mg/dL, Very high Secondary prevention optimal non HDL Cholesterol levels are recommended to be < 100 mg/dL LAB FT hrs Fasting Time 12 LAB VLDL <30 mg/dL VLDL Cholesterol 26 LAB TCHDL <5.10 TC:HDL Ratio 2.66 LAB LDLHDL <2.54 LDL:HDL Ratio 1.27 Result Comment: Reference: 1. National Cholesterol Education Program ATP III Guideline At-A-Glance Quick Desk Reference: National Heart, Lung, and Blood [place]. National Institutes of Health. 2001: NIH Publication No. 01-3305. 2. An International Atherosclerosis Society position paper: global recommendations for the management of dyslipidemia: executive summary, Atherosclerosis. 2014: 232(2):410-413. Performed By: #### LIPB #### [facility] [address] [address] CNPTOUTREA Observed: 01/01/2018 Status: COMPLETED Source: [facility] 12:00 AM [facility] REPOSITORY Patient Outreach ([facility]AMPST) CECELIA QUIROZ ([id number]) 1950 F Date Time Provider Department 01/01/18 MIAH OLMSTEAD [facility] During your visit today, we recorded the following information about you: Allergies As of Date: 01/01/2018 (No Known Allergies) Date Reviewed: 12/24/2017 Reviewed by: Coleen Segura Ma - Fully Assessed Visit Diagnosis:Medication management [Z79.899] Order(s):LIPID PANEL BASIC [SQLIPB] Order #: [id number] FUTURE Prescriptions as of 01/01/2018 Sig: ALENDRONATE 70 MG TABLET Take 1 tablet by mouth once e* X PREDNISONE 5 MG TABLET Take 2 tablets by mouth once * X BENZONATATE 100 MG CAPSULE Take 1-2 capsules by mouth th* Patient not taking: Reported on 12/24/2017 X METOPROLOL TARTRATE 25 MG TAB* TAKE ONE TABLET BY MOUTH TWIC* X GABAPENTIN 300 MG CAPSULE Take 1 capsule by mouth daily* Patient not taking: Reported on 12/24/2017 PREDNISONE 2.5 MG TABLET Using 10 mg and 2.5 mg tablet* PREDNISONE 20 MG TABLET TAKE TWO AND ONE-HALF TABLETS* X FUROSEMIDE 40 MG TABLET Take 1 tablet by mouth once d* Patient not taking: Reported on 12/24/2017 PREDNISONE 10 MG TABLET Using 10 mg and 20 mg tablets* OMEPRAZOLE 40 MG CAPSULE,CIRO* Take 1 capsule by mouth once * TRAVATAN OPHTHALMIC Use in eyes. One drop daily * Problem List As Of Date 01/01/2018 Noted Resolved Disorder of bone and cartilage [M89.9, M94.9] 03/05/2016 More... ALLERGIC RHINITIS NOS [J30.9] 10/29/2007 MITRAL VALVE PROLAPSE [I05.9] More... TOBACCO USE DISORDER [F17.200] DIVERTICULITIS OF COLON W/O BLEED [K57.32] INVALID FOR* More... CARPAL TUNNEL SYNDROME [G56.00] 10/29/2007 HEMATURIA [599.7] 10/29/2007 More... 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 TEAR MED MENISC KNEE-CURRENT [BPI0932] INVALID FOR* Cellulitis and Abscess of Face [L03.211, L02.01]INVALID FOR* Adjustment Disorder with Anxiety [F43.22] INVALID FOR* More... [facility]*INVALID FOR*11/27/2011 Priority: Moderate Class: Chronic More... 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] INVALID FOR* Infected sebaceous cyst [L72.3, L08.9] INVALID FOR* Cephalalgia [R51] INVALID FOR* Family history of brain aneurysm [Z82.49] INVALID FOR* Giant cell arteritis with polymyalgia rheumatic*INVALID FOR* correction systemic steroid user [Z79.52] INVALID FOR* Encounter Status:Closed by KATHRYN CANALES on 05/31/18 SED RATE WESTERGREN Collected: 12/24/2017 Status: F Source: [facility] 5:34 PM [facility] REPOSITORY TYPE CODE TESTS RESULT OUT OF REFERENCE UNITS RANGE LAB WSR 0-20 mm/hr Sed Rate High Westergren 40 Performed By: #### WSR, CRP #### [facility] [address] [place], [place] [address] C-REACTIVE PROTEIN Collected: 12/24/2017 Status: F Source: [facility] 5:34 PM [facility] REPOSITORY TYPE CODE TESTS RESULT OUT OF REFERENCE UNITS RANGE LAB CRP <0.9 mg/dL High C-Reactive 1.1 Protein Performed By: #### WSR, CRP #### [facility] [address] [place], [place] [address] CNOV Observed: 12/24/2017 Status: COMPLETED Source: [facility] 4:20 PM [facility] REPOSITORY Office Visit (MIYA) CECELIA QUIROZ ([id number]) 1950 F Date Time Provider Department 12/24/17 4:20 PM VALERIE SÁNCHEZ During your visit today, we recorded the following information about you: Temperature Pulse Blood pressure Weight 97.8 degrees 70/minute 117/58 64.4 kg Height 1.664 m Valerie Sánchez 12/24/2017 6:01 PM Signed Dx: GCA (temporal artery biopsy negative x2) 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 Currently on prednisone 10 mg daily (on this dose for the past 4 months). She tried tapering prednisone dose but when she reached 8 mg daily, her pain significantly worsened. Prednisone 15 mg daily is the lowest dose that controlled her musculoskeletal symptoms. -she has sporadic sharp pain in the left shinto that last a couple of hours . No pattern to these occurrences, no identifiable trigger. No associated jaw pain or visual disturbance. -she saw orthopaedist October 2017 for right foot and ankle pain. Prescribed new orthotics and injection for plantar fasciitis offered. She declined injection Sites of pain: -proximal arms -neck/shoulder girdle -sometimes buttock and posterior thighs (infrequent and mild) -hands (with stiffness) -right ankle (mainly with weight bearing) Most bothersome are the proximal arms and neck/shoulder girdle. No pain elsewhere. Knees not as bad. Massage therapy alleviates her arm/shoulder girdle pain for 1-2 weeks. Swollen joints: intermittently in fingers and ankles EMS: lasting 30 minutes Tolerating , prednisone, Tramadol without evident toxicities: currently on pred 17.5 mg qd. She has profuse sweating with pred but it is better as she lowered pred dose REVIEW OF SYSTEMS (Positive symptoms in bold): Headache over temples - sometimes (see above) Scalp tenderness - sometimes (see above) Acute vision loss or visual complaints Jaw claudication Extremity claudication Myalgias of the proximal extremities (see above) Shoulder girdle pain (see above) Hip girdle pain REVIEW OF SYSTEMS (Positive symptoms in bold- 21 positive responses recorded) CONSTITUTIONAL: Fever, fatigue, unintentional weight loss EYES: Pain (when asked, she denies any eye pain), redness, loss of vision, dryness EAR, NOSE, MOUTH, THROAT: nose bleeds, hearing loss, sores in mouth, swallowing problems, dry mouth CARDIOVASCULAR: chest pain (sporadic pinching discomfort under right breast, no pleuritic chest pain), swelling in the feet or legs RESPIRATORY: shortness of breath, pain with breathing, chronic cough, coughing up blood GASTROINTESTINAL: heartburn, nausea, diarrhea (non bloody, not new, no worse), blood in the stool or black stool, abdominal pain GENITOURINARY: blood in urine (microscopic, sees skinning machine feeder), pain or burning on urination MUSCULOSKELETAL: joint pain, joint swelling, morning stiffness in joints , muscle weakness (generalized), back pain SKIN: rashes, sun sensitive rashes, color changes of hands or feet in the cold, hair loss, nail changes NEUROLOGICAL: Headaches, dizziness, numbness or tingling (sporadic tingling arms down to the hands,no worse), memory loss, seizures HEMATOLOGIC/LYMPHATIC: Swollen glands, anemia ALLERGIES/IMMUNOLOGIC: allergies (other than medications), increased susceptibility to infection KNOWN MEDICAL CONDITIONS: Diabetes, thyroid disease, high blood pressure PAST MEDICAL HISTORY PAD (nonpalpable right DP pulse, saw Dr. Cutler in vascular medicine) Hematuria - 1999 (had workup including cystoscopy, etc. - entire workup negative. 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 PAST SURGICAL HISTORY Past Surgical History of - 1987 (ulnar ner transferred) Past Surgical History of - 1990 (bartholin cyst on vagina) Past Surgical History of - 2005 (bone spur to left shoulder) Total Abdom Hysterectomy - 1982 (cervical cancer, still has ovaries) Past Surgical History of - 2007 (left knee -- torn meniscus ([place])) skin biopsy Thyroid nodule FNA partial hysterectomy (ovaries not removed) appendectomy temporal artery bx x2 Right ankle fracture s/p fixation 09/2011 Right ankle fusion 07/2016 right cataract surgery FAMILY HISTORY no rheumatic autoimmune disorders, no psoriasis, no IBD (+)cancers - lung, liver, colon, uterine (+)diabetes SOCIAL HISTORY Marital Status: Number of children: 2 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 alendronate (FOSAMAX) 70 mg tablet Take 1 tablet by mouth once each week. benzonatate (TESSALON PERLE) 100 mg capsule Take 1-2 capsules by mouth three times daily as needed. metoprolol tartrate, short acting, (LOPRESSOR) 25 mg tablet TAKE ONE TABLET BY MOUTH TWICE DAILY FOR TREMOR gabapentin (NEURONTIN) 300 mg capsule Take 1 capsule by mouth daily at bedtime. predniSONE (DELTASONE) 2.5 mg tablet Using 10 mg and 2.5 mg tablets, take 25 mg qd. Reduce dose as directed. Do not go lower than 10 mg qd predniSONE (DELTASONE) 20 mg tablet TAKE TWO AND ONE-HALF TABLETS BY MOUTH EVERY MORNING furosemide (LASIX) 40 mg tablet Take 1 tablet by mouth once daily. predniSONE (DELTASONE) 10 mg tablet Using 10 mg and 20 mg tablets, take 40 mg qam. Reduce dose by 5 mg as directed. Do not go lower than 20 mg daily Omeprazole 40 mg capsule Take 1 capsule by mouth once daily. TRAVOPROST, BENZALKONIUM, (TRAVATAN OPHTHALMIC) Use in eyes. One drop daily at bedtime in both eyes. No current facility-administered medications for this visit. On Exam: BP 117/58 Pulse 70 Temp 36.6 ?C (97.8 ?F) (Oral) Ht 166.4 cm (5' 5.5) Wt 64.4 kg (142 lb) BMI 23.27 kg/m? GEN WD/WN, in nad, AANDOx3, normal gait HEENT No tenderness to palpation over the temples. No tortuosity or prominence of the temporal arteries. No scalp tenderness. No injection of the eyes HEART rrr, no mgr LUNGS ctab ABDOM +bs, soft, nt, nd PULSES Carotid: normal and equal bilaterally Brachial: normal and equal bilaterally Radial: normal and equal bilaterally Femoral: normal and equal bilaterally Post tib: normal and equal bilaterally No bruits MS Swollen joints: right ankle Tender joints: none Mild swelling over the lateral aspect of the right ankle. No associated tenderness, warmth or erythema of this joint No swelling in other joints. +tenderness to palpation of the triceps bilaterally. No tenderness to palpation of the biceps or deltoids No tenderness to palpation of bilateral trapezius, lateral hips or muscles of all 4 extremities except as noted above Jan 19 2014 BD AP SPINE/HIP - LEFT / COMPARISON: 01/17/2012 LUMBAR SPINE: The bone mineral density from L1 through L4 is 0.860 grams per square centimeter which yields a T-score of -1.7. This is unchanged. LEFT HIP: The bone mineral density of the total region of the hip is 0.780 grams per square centimeter which yields a T-score of -1.3. This is not significantly changed. LEFT FEMORAL NECK: The bone mineral density of the femoral neck is 0.596 grams per square centimeter which yields a T-score of -2.3. This is not significantly changed. IMPRESSION: Osteopenia, not significantly changed. Sep 10 2014 MRI CARDIAC IMPRESSION: NORMAL-SIZE THORACIC AND ABDOMINAL AORTA - mild segmental wall thickening of the descending thoracic and abdominal aorta in a nonspecific pattern Arch and Visceral Branch Vessels: unremarkable without evidence of stenosis - the hepatic artery is not well seen Normal left ventricular size and function on qualitative assessment No evidence of other abnormalities PRIOR EVALUATION Abnormal/Positive: sedimentation rate 59.outside labs: ESR 104, CRP 50.6 and Hgb 10.4 Normal/Negative: tsh, outside labs: JOANN, RF and CCP,temporal artery biopsy neg x2 Component Latest Ref Rng AND Units 09/25/2016 Hep B Core Ab, Total Negative Negative Hep C Antibody IA Negative Negative Hep B Surface Ag Negative Negative Hep B Surface Ab, Qual Negative Negative TB Result Negative Negative TB Antigen Response <0.35 IU/mL 0.01 Mitogen Response >0.49 IU/mL 2.53 TB Gamma Interpretation No evidence of current or previous infection with Mycobacterium tuberculosis. RECENT LABS Component Latest Ref Rng AND Units 06/08/2016 09/25/2016 10/19/2016 11/16/2016 12/14/2016 04/19/2017 10/19/2017 WSR 0 - 20 mm/hr 31 (H) 40 (H) 28 (H) 13 12 16 37 (H) CRP <0.9 mg/dL 0.9 0.3 0.1 0.3 0.7 0.3 0.3 02/26/17 [facility] Hosp (see scanned document in EMR) wbc 17.4 Hgb 13.8 Hct 41.8 plt 271 Glc 124 (70-110) Cr 0.96 RAPID 3: DISEASE ACTIVITY: Weighed Score Levels: 0 - 1: Near Remission 1.3 - 2.0: Low Severity 2.3 - 4.0: Moderate Severity 4.3 - 10.0: High Severity RAPID-3 Weighed Score 04/19/2017 05/21/2017 12/24/2017 RAPID 3 Weighed Score 2.3 3.4 3.7 ASSESSMENT: GCA, PMR. Other PMH: Raynaud's,PMR, osteopenia, NSAID related PUD, glaucoma, RUL nodule (ill-defined 1.4 cm on MRI, no nodule noted on cxr), hemicrania continua, PAD (nonpalpable right DP pulse) and mitral valve prolapse. On pred 10 mg qd + Fosamax PLAN 1. GCA/PMR -former patient of Dr. Lawrence -diagnosed with PMR after she developed shoulder and pelvic girdle pain and headaches. 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 -Had remarkable improvement with prednisone in her shoulder and pelvic girdle pain but not her headaches. -trial of MTX as steroid sparing agent (she has significant tremors with prednisone) ineffective -Actemra (started 10/19/16-dc'd 11/2016) -although higher dose of prednisone keeps her pain under better control, she is reluctant to increase dose and prefers to remain on 10 mg daily for now -continue prednisone to 10 mg daily. When able, reduce dose by 0.5 to 1 mg increments as tolerated to lowest dose that controls symptoms. Do not reduce dose faster than 4 weeks. Do not reduce dose lower than 5 mg daily. -results of October labs d/w patient -I asked that she have labs done today (standing orders in EMR) 2. OSTEOPENIA -She had traumatic right ankle fracture after a fall at work s/p fixation 09/2011 -Actonel since at least 2007 until early 2012 -Fosamax since 01/2014. Off Fosamax for a period but then resumed it sometime after 12/2015 -continue Fosamax -continue Ca +D -Jan 24 2016 DEXA: osteoporosis with T-score -2.6. Spine BMD stable, decline in the bone density of left hip but it is not statistically significant. -Next DEXA due: 01/2018. Order filed. Pt schedule on the same machine as 2016 scan so that comparisons can be made. 3. Raynaud's -stable -no digital ulcers 4. BLEEDING GASTRIC ULCER - NSAID RELATED (JUL 2011 EGD) -avoid NSAIDs 5. 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 Jolynn Stevens ([place]), workup negative per patient 6. GENERAL HEALTH MAINTENANCE -influenza vaccination given May 21, 2017 -she will follow up with her PCP for her general health issues FU 4 mon, sooner if needed Valerie Sánchez 12/24/2017 5:15 PM Addendum Continue prednisone 10 mg daily. When able, reduce dose by 0.5 -1 mg increments as tolerated to lowest dose that controls symptoms. Do not reduce dose faster than 4 weeks. Do not reduce dose lower than 5 mg daily. When you are able, reduce dose by 1 mg increments as tolerated to lowest dose that controls your symptoms. Do not reduce dose faster than every 4 weeks. Do not reduce dose lower than 5 mg daily. Be sure to have laboratory tests done today Have labs done at least 3-4 days prior to your appointment. This will allow me to discuss results, adjust medication(s) and answer any questions at your visit. No paperwork or appointment is needed. You can go to any [facility] facility to have the labs drawn since the orders are in the system. Please schedule bone mineral density scan January 2018 on the same machine 2016 scan so that comparisons can be made. BONE MINERAL DENSITY PATIENT INSTRUCTIONS Bone mineral density testing measures the amount of calcium in certain parts of your bones. This information determines how strong your bones are. The test is used to detect osteoporosis, a disease in which the bone's mineral content and density are low, increasing a person's risk of fractures. The lumbar spine (lower back) and the hip are the skeletal sites usually examined. For the test, remember that: 1. You cannot take this test if you are . 2. Eat a normal diet on the day of the test. 3. Take your medications as you normally would. 4. DO NOT take calcium supplements (such as Tums) for 24 hours before the test. 5. On the day of the test, leave valuables (jewelry or credit cards) at home. 6. The test should be performed prior to oral, rectal or IV contrast studies, or at least 7 days after any of these studies. For the test, you may be asked to wear a hospital gown. You will lie on your back, on a padded table, in a comfortable position. Generally, you can resume your usual activities immediately. 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 One drop daily * BENZONATATE 100 MG CAPSULE Take 1-2 capsules by mouth th* Patient not taking: Reported on 12/24/2017 GABAPENTIN 300 MG CAPSULE Take 1 capsule by mouth daily* Patient not taking: Reported on 12/24/2017 PREDNISONE 2.5 MG TABLET Using 10 mg and 2.5 mg tablet* PREDNISONE 20 MG TABLET TAKE TWO AND ONE-HALF TABLETS* FUROSEMIDE 40 MG TABLET Take 1 tablet by mouth once d* Patient not taking: Reported on 12/24/2017 PREDNISONE 10 MG TABLET Using 10 mg and 20 mg tablets* Patient not taking: Reported on 12/24/2017 Problem List As Of Date 12/24/2017 Noted Resolved Disorder of bone and cartilage [M89.9, M94.9] 03/05/2016 More... ALLERGIC RHINITIS NOS [J30.9] 10/29/2007 MITRAL VALVE PROLAPSE [I05.9] More... TOBACCO USE DISORDER [F17.200] DIVERTICULITIS OF COLON W/O BLEED [K57.32] INVALID FOR* More... CARPAL TUNNEL SYNDROME [G56.00] 10/29/2007 HEMATURIA [599.7] 10/29/2007 More... 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 TEAR MED MENISC KNEE-CURRENT [PYB5516] INVALID FOR* Cellulitis and Abscess of Face [L03.211, L02.01]INVALID FOR* Adjustment Disorder with Anxiety [F43.22] INVALID FOR* More... Routine general medical examination at a [facility]*INVALID FOR*11/27/2011 Priority: Moderate Class: Chronic More... 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 When able, reduce dose by 0.5 -1 mg increments as tolerated to lowest dose that controls symptoms. Do not reduce dose faster than 4 weeks. Do not reduce dose lower than 5 mg daily. When you are able, reduce dose by 1 mg increments as tolerated to lowest dose that controls your symptoms. Do not reduce dose faster than every 4 weeks. Do not reduce dose lower than 5 mg daily. Be sure to have laboratory tests done today Have labs done at least 3-4 days prior to your appointment. This will allow me to discuss results, adjust medication(s) and answer any questions at your visit. No paperwork or appointment is needed. You can go to any [facility] facility to have the labs drawn since the orders are in the system. Please schedule bone mineral density scan January 2018 on the same machine 2016 scan so that comparisons can be made. BONE MINERAL DENSITY PATIENT INSTRUCTIONS Bone mineral density testing measures the amount of calcium in certain parts of your bones. This information determines how strong your bones are. The test is used to detect osteoporosis, a disease in which the bone's mineral content and density are low, increasing a person's risk of fractures. The lumbar spine (lower back) and the hip are the skeletal sites usually examined. For the test, remember that: 1. You cannot take this test if you are . 2. Eat a normal diet on the day of the test. 3. Take your medications as you normally would. 4. DO NOT take calcium supplements (such as Tums) for 24 hours before the test. 5. On the day of the test, leave valuables (jewelry or credit cards) at home. 6. The test should be performed prior to oral, rectal or IV contrast studies, or at least 7 days after any of these studies. For the test, you may be asked to wear a hospital gown. You will lie on your back, on a padded table, in a comfortable position. Generally, you can resume your usual activities immediately. Prescriptions ordered this encounter Disp Refills Start End ALENDRONATE 70 MG TABLET 12 t* 3 12/24/2017 Route: ORAL Sig: Take 1 tablet by mouth once each week. Medications Discontinued During This Encounter alendronate (FOSAMAX) 70 mg tablet 12 t* 0 09/13/2017 12/24/2017 Route: ORAL Sig: Take 1 tablet by mouth once each week. Disc: Reason for discontinue is not on file. Disposition: Return in 4 months (on 05/09/2018). 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 Currently on prednisone 10 mg daily (on this dose for the past 4 months). She tried tapering prednisone dose but when she reached 8 mg daily, her pain significantly worsened. Prednisone 15 mg daily is the lowest dose that controlled her musculoskeletal symptoms. -she has sporadic sharp pain in the left shinto that last a couple of hours . No pattern to these occurrences, no identifiable trigger. No associated jaw pain or visual disturbance. -she saw orthopaedist October 2017 for right foot and ankle pain. Prescribed new orthotics and injection for plantar fasciitis offered. She declined injection Sites of pain: -proximal arms -neck/shoulder girdle -sometimes buttock and posterior thighs (infrequent and mild) -hands (with stiffness) -right ankle (mainly with weight bearing) Most bothersome are the proximal arms and neck/shoulder girdle. No pain elsewhere. Knees not as bad. Massage therapy alleviates her arm/shoulder girdle pain for 1-2 weeks. Swollen joints: intermittently in fingers and ankles EMS: lasting 30 minutes Tolerating , prednisone, Tramadol without evident toxicities: currently on pred 17.5 mg qd. She has profuse sweating with pred but it is better as she lowered pred dose REVIEW OF SYSTEMS (Positive symptoms in bold): Headache over temples - sometimes (see above) Scalp tenderness - sometimes (see above) Acute vision loss or visual complaints Jaw claudication Extremity claudication Myalgias of the proximal extremities (see above) Shoulder girdle pain (see above) Hip girdle pain REVIEW OF SYSTEMS (Positive symptoms in bold- 21 positive responses recorded) CONSTITUTIONAL: Fever, fatigue, unintentional weight loss EYES: Pain (when asked, she denies any eye pain), redness, loss of vision, dryness EAR, NOSE, MOUTH, THROAT: nose bleeds, hearing loss, sores in mouth, swallowing problems, dry mouth CARDIOVASCULAR: chest pain (sporadic pinching discomfort under right breast, no pleuritic chest pain), swelling in the feet or legs RESPIRATORY: shortness of breath, pain with breathing, chronic cough, coughing up blood GASTROINTESTINAL: heartburn, nausea, diarrhea (non bloody, not new, no worse), blood in the stool or black stool, abdominal pain GENITOURINARY: blood in urine (microscopic, sees skinning machine feeder), pain or burning on urination MUSCULOSKELETAL: joint pain, joint swelling, morning stiffness in joints , muscle weakness (generalized), back pain SKIN: rashes, sun sensitive rashes, color changes of hands or feet in the cold, hair loss, nail changes NEUROLOGICAL: Headaches, dizziness, numbness or tingling (sporadic tingling arms down to the hands,no worse), memory loss, seizures HEMATOLOGIC/LYMPHATIC: Swollen glands, anemia ALLERGIES/IMMUNOLOGIC: allergies (other than medications), increased susceptibility to infection KNOWN MEDICAL CONDITIONS: Diabetes, thyroid disease, high blood pressure PAST MEDICAL HISTORY PAD (nonpalpable right DP pulse, saw Dr. Cutler in vascular medicine) Hematuria - 1999 (had workup including cystoscopy, etc. - entire workup negative. 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 PAST SURGICAL HISTORY Past Surgical History of - 1987 (ulnar ner transferred) Past Surgical History of - 1990 (bartholin cyst on vagina) Past Surgical History of - 2005 (bone spur to left shoulder) Total Abdom Hysterectomy - 1982 (cervical cancer, still has ovaries) Past Surgical History of - 2007 (left knee -- torn meniscus ([place])) skin biopsy Thyroid nodule FNA partial hysterectomy (ovaries not removed) appendectomy temporal artery bx x2 Right ankle fracture s/p fixation 09/2011 Right ankle fusion 07/2016 right cataract surgery FAMILY HISTORY no rheumatic autoimmune disorders, no psoriasis, no IBD (+)cancers - lung, liver, colon, uterine (+)diabetes SOCIAL HISTORY Marital Status: Number of children: 2 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 alendronate (FOSAMAX) 70 mg tablet Take 1 tablet by mouth once each week. benzonatate (TESSALON PERLE) 100 mg capsule Take 1-2 capsules by mouth three times daily as needed. metoprolol tartrate, short acting, (LOPRESSOR) 25 mg tablet TAKE ONE TABLET BY MOUTH TWICE DAILY FOR TREMOR gabapentin (NEURONTIN) 300 mg capsule Take 1 capsule by mouth daily at bedtime. predniSONE (DELTASONE) 2.5 mg tablet Using 10 mg and 2.5 mg tablets, take 25 mg qd. Reduce dose as directed. Do not go lower than 10 mg qd predniSONE (DELTASONE) 20 mg tablet TAKE TWO AND ONE-HALF TABLETS BY MOUTH EVERY MORNING furosemide (LASIX) 40 mg tablet Take 1 tablet by mouth once daily. predniSONE (DELTASONE) 10 mg tablet Using 10 mg and 20 mg tablets, take 40 mg qam. Reduce dose by 5 mg as directed. Do not go lower than 20 mg daily Omeprazole 40 mg capsule Take 1 capsule by mouth once daily. TRAVOPROST, BENZALKONIUM, (TRAVATAN OPHTHALMIC) Use in eyes. One drop daily at bedtime in both eyes. No current facility-administered medications for this visit. On Exam: BP 117/58 Pulse 70 Temp 36.6 ?C (97.8 ?F) (Oral) Ht 166.4 cm (5' 5.5) Wt 64.4 kg (142 lb) BMI 23.27 kg/m? GEN WD/WN, in nad, AANDOx3, normal gait HEENT No tenderness to palpation over the temples. No tortuosity or prominence of the temporal arteries. No scalp tenderness. No injection of the eyes HEART rrr, no mgr LUNGS ctab ABDOM +bs, soft, nt, nd PULSES Carotid: normal and equal bilaterally Brachial: normal and equal bilaterally Radial: normal and equal bilaterally Femoral: normal and equal bilaterally Post tib: normal and equal bilaterally No bruits MS Swollen joints: right ankle Tender joints: none Mild swelling over the lateral aspect of the right ankle. No associated tenderness, warmth or erythema of this joint No swelling in other joints. +tenderness to palpation of the triceps bilaterally. No tenderness to palpation of the biceps or deltoids No tenderness to palpation of bilateral trapezius, lateral hips or muscles of all 4 extremities except as noted above Jan 19 2014 BD AP SPINE/HIP - LEFT / COMPARISON: 01/17/2012 LUMBAR SPINE: The bone mineral density from L1 through L4 is 0.860 grams per square centimeter which yields a T-score of -1.7. This is unchanged. LEFT HIP: The bone mineral density of the total region of the hip is 0.780 grams per square centimeter which yields a T-score of -1.3. This is not significantly changed. LEFT FEMORAL NECK: The bone mineral density of the femoral neck is 0.596 grams per square centimeter which yields a T-score of -2.3. This is not significantly changed. IMPRESSION: Osteopenia, not significantly changed. Sep 10 2014 MRI CARDIAC IMPRESSION: NORMAL-SIZE THORACIC AND ABDOMINAL AORTA - mild segmental wall thickening of the descending thoracic and abdominal aorta in a nonspecific pattern Arch and Visceral Branch Vessels: unremarkable without evidence of stenosis - the hepatic artery is not well seen Normal left ventricular size and function on qualitative assessment No evidence of other abnormalities PRIOR EVALUATION Abnormal/Positive: sedimentation rate 59.outside labs: ESR 104, CRP 50.6 and Hgb 10.4 Normal/Negative: tsh, outside labs: JOANN, RF and CCP,temporal artery biopsy neg x2 Component Latest Ref Rng AND Units 09/25/2016 Hep B Core Ab, Total Negative Negative Hep C Antibody IA Negative Negative Hep B Surface Ag Negative Negative Hep B Surface Ab, Qual Negative Negative TB Result Negative Negative TB Antigen Response <0.35 IU/mL 0.01 Mitogen Response >0.49 IU/mL 2.53 TB Gamma Interpretation No evidence of current or previous infection with Mycobacterium tuberculosis. RECENT LABS Component Latest Ref Rng AND Units 06/08/2016 09/25/2016 10/19/2016 11/16/2016 12/14/2016 04/19/2017 10/19/2017 WSR 0 - 20 mm/hr 31 (H) 40 (H) 28 (H) 13 12 16 37 (H) CRP <0.9 mg/dL 0.9 0.3 0.1 0.3 0.7 0.3 0.3 02/26/17 [facility]osp (see scanned document in EMR) wbc 17.4 Hgb 13.8 Hct 41.8 plt 271 Glc 124 (70-110) Cr 0.96 RAPID 3: DISEASE ACTIVITY: Weighed Score Levels: 0 - 1: Near Remission 1.3 - 2.0: Low Severity 2.3 - 4.0: Moderate Severity 4.3 - 10.0: High Severity RAPID-3 Weighed Score 04/19/2017 05/21/2017 12/24/2017 RAPID 3 Weighed Score 2.3 3.4 3.7 ASSESSMENT: GCA, PMR. Other PMH: Raynaud's,PMR, osteopenia, NSAID related PUD, glaucoma, RUL nodule (ill-defined 1.4 cm on MRI, no nodule noted on cxr), hemicrania continua, PAD (nonpalpable right DP pulse) and mitral valve prolapse. On pred 10 mg qd + Fosamax PLAN 1. GCA/PMR -former patient of Dr. Lawrence -diagnosed with PMR after she developed shoulder and pelvic girdle pain and headaches. 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 -Had remarkable improvement with prednisone in her shoulder and pelvic girdle pain but not her headaches. -trial of MTX as steroid sparing agent (she has significant tremors with prednisone) ineffective -Actemra (started 10/19/16-dc'd 11/2016) -although higher dose of prednisone keeps her pain under better control, she is reluctant to increase dose and prefers to remain on 10 mg daily for now -continue prednisone to 10 mg daily. When able, reduce dose by 0.5 to 1 mg increments as tolerated to lowest dose that controls symptoms. Do not reduce dose faster than 4 weeks. Do not reduce dose lower than 5 mg daily. -results of October labs d/w patient -I asked that she have labs done today (standing orders in EMR) 2. OSTEOPENIA -She had traumatic right ankle fracture after a fall at work s/p fixation 09/2011 -Actonel since at least 2007 until early 2012 -Fosamax since 01/2014. Off Fosamax for a period but then resumed it sometime after 12/2015 -continue Fosamax -continue Ca +D -Jan 24 2016 DEXA: osteoporosis with T-score -2.6. Spine BMD stable, decline in the bone density of left hip but it is not statistically significant. -Next DEXA due: 01/2018. Order filed. Pt schedule on the same machine as 2016 scan so that comparisons can be made. 3. Raynaud's -stable -no digital ulcers 4. BLEEDING GASTRIC ULCER - NSAID RELATED (JUL 2011 EGD) -avoid NSAIDs 5. 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 Jolynn Stevens ([place]), workup negative per patient 6. GENERAL HEALTH MAINTENANCE -influenza vaccination given May 21, 2017 -she will follow up with her PCP for her general health issues FU 4 mon, sooner if needed C-REACTIVE PROTEIN Collected: 10/19/2017 Status: F Source: [place] 3:56 PM [facility] REPOSITORY TYPE CODE TESTS RESULT OUT OF REFERENCE UNITS RANGE LAB CRP <0.9 mg/dL C-Reactive 0.3 Protein Performed By: #### CRP, WSR #### [facility] [address] [place], [place] [address] SED RATE WESTERGREN Collected: 10/19/2017 Status: F Source: [place] 3:56 PM [facility] REPOSITORY TYPE CODE TESTS RESULT OUT OF REFERENCE UNITS RANGE LAB WSR 0-20 mm/hr Sed Rate High W[place]gren 37 Performed By: #### CRP, WSR #### [facility] [address], [place] [id number] PROGRESS Observed: 09/01/2017 Status: COMPLETED Source: [place] 3:20 PM [facility] REPOSITORY HNO ID: [id number] Author: Hao Bravo) Aubrie Service: (none) Author Type: Nurse Practitioner Type: Progress Notes Filed: 09/01/2017 3:52 PM Note Text: HPI Patient is a reliable 67 year old female here today for a 2 week history of nasal congestion, cough and sore throat. Patient states cough is worse in the morning and at night. States throat pain is worse in the morning and at night. Denies know fever. Has tried OTC medications with little relief. Nothing makes it better. Feels like it is getting worse. No other concerns at this time. Review of Systems Constitutional: Negative for chills, fever and malaise/fatigue. HENT: Positive for congestion. Negative for ear pain and sore throat. Respiratory: Positive for cough and wheezing. Negative for sputum production and shortness of breath. Cardiovascular: Negative. Musculoskeletal: Negative for myalgias. Neurological: Negative for headaches. Endo/Heme/Allergies: Negative for environmental allergies. All other systems reviewed and are negative. PAST MEDICAL HISTORY Diagnosis Date - Autoimmune disease (HCC) - Cancer ([facility]) 1982 Uterine - Depression - Disorder of bone and cartilage, unspecified - Diverticulitis of colon (without mention of hemorrhage)(562.11) 2003 - GCA (giant cell arteritis) ([facility]) bx negative - Glaucoma - Hematuria 1999 had workup including cystoscopy, etc. - entire workup negative. No longer happening. - Iron deficiency anemia, unspecified ? related to UGI source from NSAID's - PMR (polymyalgia rheumatica) ([facility]) - Raynaud's disease /phenomenon - Steroid long-term use - Tobacco use disorder PAST SURGICAL HISTORY Procedure Laterality Date - APPENDECTOMY 1982 incidental - CATARACT EXTRACTION HX bilateral - COLONOSCOPY 2012 - EGD W/O OR W/BRUSH/WASH 07/05/15 EGD - LEFT HEART CATH,PERCUTANEOUS 2011 Cardiac cath, L heart. Normal - PAST SURGICAL HISTORY OF 1987 ulnar ner transferred - PAST SURGICAL HISTORY OF 1990 bartholin cyst on vagina - PAST SURGICAL HISTORY OF 2005 bone spur to left shoulder - PAST SURGICAL HISTORY OF 2007 left knee -- torn meniscus ([place]) - PAST SURGICAL HISTORY OF 2011 ORIF R ankle - TOTAL ABDOM HYSTERECTOMY 1982 cervical cancer, still has ovaries ALLERGIES Review of patient's allergies indicates no known allergies. MEDICATIONS metoprolol tartrate, short acting, (LOPRESSOR) 25 mg tablet TAKE ONE TABLET BY MOUTH TWICE DAILY FOR TREMOR predniSONE (DELTASONE) 5 mg tablet Take 2.5 tablets by mouth once daily. or as directed gabapentin (NEURONTIN) 300 mg capsule Take 1 capsule by mouth daily at bedtime. predniSONE (DELTASONE) 2.5 mg tablet Using 10 mg and 2.5 mg tablets, take 25 mg qd. Reduce dose as directed. Do not go lower than 10 mg qd predniSONE (DELTASONE) 20 mg tablet TAKE TWO AND ONE-HALF TABLETS BY MOUTH EVERY MORNING furosemide (LASIX) 40 mg tablet Take 1 tablet by mouth once daily. predniSONE (DELTASONE) 10 mg tablet Using 10 mg and 20 mg tablets, take 40 mg qam. Reduce dose by 5 mg as directed. Do not go lower than 20 mg daily alendronate (FOSAMAX) 70 mg tablet Take 1 tablet by mouth once each week. Omeprazole 40 mg capsule Take 1 capsule by mouth once daily. TRAVOPROST, BENZALKONIUM, (TRAVATAN OPHTHALMIC) Use in eyes. One drop daily at bedtime in both eyes. FAMILY HISTORY Problem Relation Age of Onset - Cancer Sister lung CA - 52 - Cancer Brother lymphoma - 55; h/o kidney transplant - Cancer Brother age 61- metastatic - not sure what primary was - Diabetes Father late in life - Coronary Artery Disease Father Hx of [place], age 71 Social History Substance Use Topics - Smoking status: Current Every Day Smoker Packs/day: 1.00 Years: 35.00 Types: Cigarettes - Smokeless tobacco: Never Used - Alcohol use No BP 122/64 Pulse 69 Temp 37.1 ?C (98.8 ?F) (Tympanic) Resp 20 Wt 67.6 kg (149 lb) SpO2 98% BMI 24.42 kg/m2 Physical Exam Constitutional: She is oriented to person, place, and time and well-developed, well-nourished, and in no distress. Vital signs are normal. Mildly ill. HENT: Head: Normocephalic and atraumatic. Right Ear: Tympanic membrane, external ear and ear canal normal. Left Ear: Tympanic membrane, external ear and ear canal normal. Nose: Mucosal edema and rhinorrhea present. Right sinus exhibits maxillary sinus tenderness and frontal sinus tenderness. Left sinus exhibits maxillary sinus tenderness and frontal sinus tenderness. Mouth/Throat: Uvula is midline, oropharynx is clear and moist and mucous membranes are normal. Neck: Neck supple. Cardiovascular: Normal rate, regular rhythm and normal heart sounds. Pulmonary/Chest: Effort normal. She has wheezes. Fine bilateral wheezes noted through out. Good Air exchange noted at the bases. SpO2 98 % Lymphadenopathy: Head (right side): No submental, no submandibular and no tonsillar adenopathy present. Head (left side): No submental, no submandibular and no tonsillar adenopathy present. She has no cervical adenopathy. Neurological: She is alert and oriented to person, place, and time. Skin: Skin is warm and dry. Nursing note and vitals reviewed. ASSESSMENT/PLAN: 1. Sinobronchitis - ICD9: 473.9, 490, ICD10: J32.9, J40 - Will begin treatment with as per antibiotic as written, see orders - The patient should also be given warm salt water gargles, throat lozenges and/or OTC throat spray as needed for the first 5- 7 days of treatment. - Supportive care with plenty of fluids, rest, and analgesia prn. - Follow up in 3-5 days if symptoms persist or worsen. - AMOXICILLIN 875 MG-POTASSIUM CLAVULANATE 125 MG TABLET - BENZONATATE 100 MG CAPSULE Prescription instructions reviewed with patient as applicable. Patient advised if symptoms do not improve or if symptoms worsen sooner, to contact their primary care physician. Potential red flag symptoms discussed with the patient. Reviewed appropriate action plan to take if red flag symptoms occur. Patient agreeable to treatment plan. Hao Alfred CNP CNOV Observed: 09/01/2017 Status: COMPLETED Source: [place] 3:15 PM [facility] REPOSITORY Office Visit ([facility]) CECELIA QUIROZ ([id number]) 1950 F Date Time Provider Department 09/01/17 3:15 PM HAO ALFRED ([facility]INE[facility]) [facility] During your visit today, we recorded the following information about you: Temperature Pulse Respiration Blood pressure 98.8 degrees 69/minute 20/minute 122/64 Weight 67.6 kg Hao Alfred CNP 09/01/2017 3:52 PM Signed HPI Patient is a reliable 67 year old female here today for a 2 week history of nasal congestion, cough and sore throat. Patient states cough is worse in the morning and at night. States throat pain is worse in the morning and at night. Denies know fever. Has tried OTC medications with little relief. Nothing makes it better. Feels like it is getting worse. No other concerns at this time. Review of Systems Constitutional: Negative for chills, fever and malaise/fatigue. HENT: Positive for congestion. Negative for ear pain and sore throat. Respiratory: Positive for cough and wheezing. Negative for sputum production and shortness of breath. Cardiovascular: Negative. Musculoskeletal: Negative for myalgias. Neurological: Negative for headaches. Endo/Heme/Allergies: Negative for environmental allergies. All other systems reviewed and are negative. PAST MEDICAL HISTORY Diagnosis Date - Autoimmune disease (HCC) - Cancer ([facility]) 1982 Uterine - Depression - Disorder of bone and cartilage, unspecified - Diverticulitis of colon (without mention of hemorrhage)(562.11) 2003 - GCA (giant cell arteritis) ([facility]) bx negative - Glaucoma - Hematuria 1999 had workup including cystoscopy, etc. - entire workup negative. No longer happening. - Iron deficiency anemia, unspecified ? related to UGI source from NSAID's - PMR (polymyalgia rheumatica) ([facility]) - Raynaud's disease /phenomenon - Steroid long-term use - Tobacco use disorder PAST SURGICAL HISTORY Procedure Laterality Date - APPENDECTOMY 1982 incidental - CATARACT EXTRACTION HX bilateral - COLONOSCOPY 2012 - EGD W/O OR W/BRUSH/WASH 07/05/15 EGD - LEFT HEART CATH,PERCUTANEOUS 2011 Cardiac cath, L heart. Normal - PAST SURGICAL HISTORY OF 1987 ulnar ner transferred - PAST SURGICAL HISTORY OF 1990 bartholin cyst on vagina - PAST SURGICAL HISTORY OF 2005 bone spur to left shoulder - PAST SURGICAL HISTORY OF 2007 left knee -- torn meniscus ([place]) - PAST SURGICAL HISTORY OF 2011 ORIF R ankle - TOTAL ABDOM HYSTERECTOMY 1982 cervical cancer, still has ovaries ALLERGIES Review of patient's allergies indicates no known allergies. MEDICATIONS metoprolol tartrate, short acting, (LOPRESSOR) 25 mg tablet TAKE ONE TABLET BY MOUTH TWICE DAILY FOR TREMOR predniSONE (DELTASONE) 5 mg tablet Take 2.5 tablets by mouth once daily. or as directed gabapentin (NEURONTIN) 300 mg capsule Take 1 capsule by mouth daily at bedtime. predniSONE (DELTASONE) 2.5 mg tablet Using 10 mg and 2.5 mg tablets, take 25 mg qd. Reduce dose as directed. Do not go lower than 10 mg qd predniSONE (DELTASONE) 20 mg tablet TAKE TWO AND ONE-HALF TABLETS BY MOUTH EVERY MORNING furosemide (LASIX) 40 mg tablet Take 1 tablet by mouth once daily. predniSONE (DELTASONE) 10 mg tablet Using 10 mg and 20 mg tablets, take 40 mg qam. Reduce dose by 5 mg as directed. Do not go lower than 20 mg daily alendronate (FOSAMAX) 70 mg tablet Take 1 tablet by mouth once each week. Omeprazole 40 mg capsule Take 1 capsule by mouth once daily. TRAVOPROST, BENZALKONIUM, (TRAVATAN OPHTHALMIC) Use in eyes. One drop daily at bedtime in both eyes. FAMILY HISTORY Problem Relation Age of Onset - Cancer Sister lung CA - 52 - Cancer Brother lymphoma - 55; h/o kidney transplant - Cancer Brother age 61- metastatic - not sure what primary was - Diabetes Father late in life - Coronary Artery Disease Father Hx of [place], age 71 Social History Substance Use Topics - Smoking status: Current Every Day Smoker Packs/day: 1.00 Years: 35.00 Types: Cigarettes - Smokeless tobacco: Never Used - Alcohol use No BP 122/64 Pulse 69 Temp 37.1 ?C (98.8 ?F) (Tympanic) Resp 20 Wt 67.6 kg (149 lb) SpO2 98% BMI 24.42 kg/m2 Physical Exam Constitutional: She is oriented to person, place, and time and well-developed, well-nourished, and in no distress. Vital signs are normal. Mildly ill. HENT: Head: Normocephalic and atraumatic. Right Ear: Tympanic membrane, external ear and ear canal normal. Left Ear: Tympanic membrane, external ear and ear canal normal. Nose: Mucosal edema and rhinorrhea present. Right sinus exhibits maxillary sinus tenderness and frontal sinus tenderness. Left sinus exhibits maxillary sinus tenderness and frontal sinus tenderness. Mouth/Throat: Uvula is midline, oropharynx is clear and moist and mucous membranes are normal. Neck: Neck supple. Cardiovascular: Normal rate, regular rhythm and normal heart sounds. Pulmonary/Chest: Effort normal. She has wheezes. Fine bilateral wheezes noted through out. Good Air exchange noted at the bases. SpO2 98 % Lymphadenopathy: Head (right side): No submental, no submandibular and no tonsillar adenopathy present. Head (left side): No submental, no submandibular and no tonsillar adenopathy present. She has no cervical adenopathy. Neurological: She is alert and oriented to person, place, and time. Skin: Skin is warm and dry. Nursing note and vitals reviewed. ASSESSMENT/PLAN: 1. Sinobronchitis - ICD9: 473.9, 490, ICD10: J32.9, J40 - Will begin treatment with as per antibiotic as written, see orders - The patient should also be given warm salt water gargles, throat lozenges and/or OTC throat spray as needed for the first 5-7 days of treatment. - Supportive care with plenty of fluids, rest, and analgesia prn. - Follow up in 3-5 days if symptoms persist or worsen. - AMOXICILLIN 875 MG-POTASSIUM CLAVULANATE 125 MG TABLET - BENZONATATE 100 MG CAPSULE Prescription instructions reviewed with patient as applicable. Patient advised if symptoms do not improve or if symptoms worsen sooner, to contact their primary care physician. Potential red flag symptoms discussed with the patient. Reviewed appropriate action plan to take if red flag symptoms occur. Patient agreeable to treatment plan. Hao Alfred CNP Referring Provider: SELF [200] Allergies As of Date: 09/01/2017 (No Known Allergies) Date Reviewed: 09/01/2017 Reviewed by: Hao (Iirneo) Aubrie - Fully Assessed Reason for Visit: Nasal Congestion [235] Cmt: X 2 weeks Primary Visit Diagnosis:Sinobronchitis [J32.9, J40] Order(s):amoxicillin-clavulanic acid (AUGMENTIN) 875-125 mg per tabletTake 1 tablet by mouth twice daily for 10 days.Disp: 20 tabletRfl: 0 benzonatate (TESSALON PERLE) 100 mg capsuleTake 1- 2 capsules by mouth three times daily as needed.Disp: 30 capsuleRfl: 0 Prescriptions as of 09/01/2017 Sig: METOPROLOL TARTRATE 25 MG TAB* TAKE ONE TABLET BY MOUTH TWIC* PREDNISONE 5 MG TABLET Take 2.5 tablets by mouth onc* GABAPENTIN 300 MG CAPSULE Take 1 capsule by mouth daily* PREDNISONE 2.5 MG TABLET Using 10 mg and 2.5 mg tablet* PREDNISONE 20 MG TABLET TAKE TWO AND ONE-HALF TABLETS* FUROSEMIDE 40 MG TABLET Take 1 tablet by mouth once d* PREDNISONE 10 MG TABLET Using 10 mg and 20 mg tablets* ALENDRONATE 70 MG TABLET Take 1 tablet by mouth once e* OMEPRAZOLE 40 MG CAPSULE,CIRO* Take 1 capsule by mouth once * TRAVATAN OPHTHALMIC Use in eyes. One drop daily * AMOXICILLIN 875 MG-POTASSIUM * Take 1 tablet by mouth twice * BENZONATATE 100 MG CAPSULE Take 1-2 capsules by mouth th* Problem List As Of Date 09/01/2017 Noted Resolved Disorder of bone and cartilage [M89.9, M94.9] 03/05/2016 More... ALLERGIC RHINITIS NOS [J30.9] 10/29/2007 MITRAL VALVE PROLAPSE [I05.9] More... TOBACCO USE DISORDER [F17.200] DIVERTICULITIS OF COLON W/O BLEED [K57.32] INVALID FOR* More... CARPAL TUNNEL SYNDROME [G56.00] 10/29/2007 HEMATURIA [599.7] 10/29/2007 More... 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 TEAR MED MENISC KNEE-CURRENT [GDI9840] INVALID FOR* Cellulitis and Abscess of Face [L03.211, L02.01]INVALID FOR* Adjustment Disorder with Anxiety [F43.22] INVALID FOR* More... Routine general medical examination at a health*INVALID FOR*11/27/2011 Priority: Moderate Class: Chronic More... 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 BENZONATATE 100 MG CAPSULE 30 c* 0 09/01/2017 Route: ORAL Sig: Take 1-2 capsules by mouth three times daily as needed. Encounter Status:Closed by HAO ALFRED CNP on 09/01/17 ALLERGIES ALLERGIES DATE TYPE / CODE NAME / CODE REACTION SEVERITY SOURCE 07/29/2018 Drug No Known Unknown [facility] Allergy/416 Allergies/M02131 Hospital 224518(SNOM 0388(RXNORM) Repository ED CT) Drug NO KNOWN [facility] Class/95337 ALLERGIES Main [place] 1003(SNOMED Repository CT) ENCOUNTERS ENCOUNTERS ADMIT/DISCHARGE ACCOUNT ADMITTING ENCOUNTER LOCATION SOURCE NUMBER CLASS 08/01/2018 [id number] Ambulatory B[facility]:[place] Repository 08/01/2018 [id number] [facility] Repository 07/29/2018/07/29/20 [id number] Ambulatory BMSBuilding:[facility] [place] [facility] Repository 07/25/2018/07/25/20 [id number] Ambulatory BMSBuilding:[facility] [place] [facility] Repository 07/22/2018 [id number] [facility] Repository 07/19/2018 [id number] [facility] ing:OPBI Repository 07/03/2018/07/03/20 [id number] Ambulatory [address] Repository 06/14/2018/06/17/20 [id number] Ambulatory [address] Repository 06/07/2018 [id number] [facility] ing:[facility] Repository 05/10/2018 [id number] Ambulatory BMSBuilding:[place] [facility] Repository 05/09/2018/05/09/20 [id number] Ambulatory [address] Repository 05/09/2018/05/27/20 [id number] Ambulatory [address] Repository 05/04/2018/05/04/20 [id number] Ambulatory [address] Repository 01/28/2018/01/29/20 [id number] Ambulatory [address] Repository 01/28/2018/01/29/20 [id number] Ambulatory [address] Repository 01/18/2018/01/19/20 [id number] Ambulatory [address] Repository 01/18/2018/01/22/20 [id number] Ambulatory [address] Repository 01/12/2018/01/13/20 [id number] Ambulatory [address] Repository 12/24/2017 [id number] Ambulatory [facility] Repository 12/24/2017/12/26/19 [id number] Ambulatory [address] Repository 10/19/2017/10/20/19 [id number] Ambulatory [address] Repository 10/01/2017 [id number] Ambulatory [place] [facility] ing:LAB.FUTUR Repository E 09/01/2017/09/01/19 [id number] Ambulatory [address] Repository PAYERS PAYERS ENCOUNTER GUARANTOR PAYER SUBSCRIBER SOURCE 08/01/2018 CECELIA E Primary CECELIA E [place] [id number] S Insurance:MEDICARE DAWSONDOB[facility] [id number] [address]Pxo: Number: Repository [id number] (HP) Date:2018-07-29 08/01/2018 Secondary CECELIA E [place] Insurance:MUTUAL OF DAWSONDOB: [facility] Number: [id number] Hospital [id number] Repository Date:9622-30-93NLQNMM [place], [place] [address]ZN: 08/01/2018 Tertiary NOT GIVENUNK [place] Insurance:SELF PAY [facility] Number: Effective Repository Date:2018-08-01 08/01/2018 CECELIA E Primary CECELIA E [place] [id number] S Insurance:MEDICARE DAWSONDOB: [facility] [id number] Hospital [place] [address]Hcu: Number: Repository [id number] (HP) Date:2018-07-29 08/01/2018 Secondary CECELIA E [place] Insurance:MUTUAL OF DAWSONDOB: [facility] Number: [id number] Hospital [id number] Repository Date:8738-90-38YQAGVY [place] [address]JE: 08/01/2018 Tertiary NOT GIVENUNK [place] Insurance:SELF PAY [facility] Number: Effective Repository Date:2018-07-29 07/29/2018 CECELIA E Primary CECELIA E [place] [id number] S Insurance:MEDICARE DAWSONDOB: [facility] [place] [id number] View Regional Medical Center [address]Vby: Number: Repository [id number] (HP) Date:2018-07-25 07/29/2018 Secondary CECELIA E [place] Insurance:MUTUAL OF DAWSONDOB: [facility] Number: [id number] Hospital [id number] Repository Date:2628-09-28JRXEFY OF [place], [place] [address]AE: 07/29/2018 Tertiary NOT GIVENUNK [place] Insurance:SELF PAY [facility] Number: Effective Repository Date:2018-07-26 07/25/2018 CECELIA E Primary CECELIA E [place] [id number] S Insurance:MEDICARE DAWSONDOB: [facility] [place], PART A [facility] [id number] View Regional Medical Center [address]Dsw: Number: Repository [id number] (HP) Date:2018-07-23 07/25/2018 Secondary CECELIA E [place] Insurance:MUTUAL OF DAWSONDOB: [facility] Number: [id number] Hospital [id number] Repository Date:5019-41-59ULIWYN [place], [place] [address]BG: 07/25/2018 Tertiary NOT GIVENUNK [place] Insurance:SELF PAY [facility] Number: Effective Repository Date:2018-07-23 07/22/2018 CECELIA E Primary CECELIA E [place] [id number] S Insurance:MEDICARE DAWSONDOB: [facility], PART A [facility] [id number] View Regional Medical Center [address]Kpk: Number: Repository [id number] (HP) Date:2018-07-19 07/22/2018 Secondary CECELIA E [place] Insurance:MUTUAL OF DAWSONDOB: [facility] Number: [id number] Hospital [id number] Repository Date:6318-65-54SRYRGXELY, [place] [address]RH: 07/22/2018 Tertiary NOT GIVENUNK [place] Insurance:SELF PAY [facility] Number: Effective Repository Date:2018-07-19 07/19/2018 CECELIA E Primary CECELIA E [place] [id number] S Insurance:MEDICARE DAWSONDOB: [facility], PART A [facility] [id number] View Regional Medical Center [address]Tus: Number: Repository [id number] () Date:2018-06-07 07/19/2018 Secondary ECCELIA E [place] Insurance:MUTUAL OF DAWSONDOB: [facility] Number: [id number] Hospital [id number] Repository Date:2365-39-86FOJUVZSTERLING [place], [place] [address]RL: 07/19/2018 Tertiary NOT GIVENUNK [place] Insurance:SELF PAY [facility] Number: Effective Repository Date:2018-06-07 06/07/2018 Cecelia E Primary Cecelia E [place] [id number] S Insurance:MEDICARE DawsonDOB[facility] [id number] View Regional Medical Center [address]Eog: Number: Repository [id number] (HP) Date:2018-06-07 06/07/2018 Secondary Cecelia E [place] Insurance:MUTUAL OF DawsonDOB: [facility] Number: [id number] Hospital [id number] Repository Date:6863-77-48KUHBXCSTERLING FOREST, [place] [address]LQ: 06/07/2018 Tertiary NOT GIVENUNK [place] Insurance:SELF PAY [facility] Number: Effective Repository Date:2018-06-07 05/10/2018 Cecelia E Primary Cecelia E [place] [id number] S Insurance:MEDICARE DawsonD[facility] [id number] View Regional Medical Center [address]Iir: Number: Repository [id number] () Date:2018-05-02 05/10/2018 Secondary Cecelia E [place] Insurance:MUTUAL OF DawsonDOB: [facility] Number: [id number] Hospital [id number] Repository Date:3291-65-92BECHDI OF [facility], [place] [address]HD: 05/10/2018 Tertiary NOT GIVENUNK [place] Insurance:SELF PAY [facility] Number: Effective Repository Date:2018-05-02 10/01/2017 Cecelia E Primary Cecelia E [place] [id number] S Insurance:MEDICARE DawsonDOB: [facility], PART A [facility] [id number] View Regional Medical Center [address]Uxr: Number: Repository [id number] () Date:2017-10-01 10/01/2017 Secondary Cecelia E [place] Insurance:MUTUAL OF DawsonDOB: [facility] Number: [id number] Hospital [id number] Repository Date:5910-52-30OQOEXO OF [facility], [place] [address]NP: 10/01/2017 Tertiary NOT GIVENUNK [place] Insurance:SELF PAY [facility] Number: Effective Repository Date:2017-10-01
== END ==
PROVIDERS: PCP Student in an Organized Health Care Education/Training Program; Visit Provider Obstetrics & Gynecology
DX: Z12.31 Encounter for screening mammogram for malignant neoplasm of breast (principal)
CPT/HCPCS: 77063; 77067

== ENCOUNTER → 2018-07-22 08:53 | Outpatient (CLI) | payer MEDICARE, OTHER, SELFPAY ==
--- NOTE | 2018-07-22 08:54 | US_ITS ---
STUDY: ULTRASOUND BREAST - RIGHT REASON FOR EXAM: Female, 68 years old. Abnormal screening mammogram. TECHNIQUE: Axial and longitudinal images of the RIGHT breast were performed with a high resolution ultrasound transducer. COMPARISON: Comparison is made with prior mammogram dated July 19, 2018 and prior sonogram of the right breast dated March 07, 2010. FINDINGS: RIGHT Breast: The mammographic abnormality corresponds to a 5 mm x 8 mm x 3 mm well-defined hypoechoic nodule at the 2:00 position of the breast at 1 cm from the nipple. This most likely represents a small fibroadenoma. A biopsy is recommended for further evaluation. US/Breast Limited Unilateral IMPRESSION: The mammographic abnormality corresponds to a 5 mm x 8 mm x 3 mm well-defined hypoechoic nodule at the 2:00 position breast 1 cm from nipple. This most likely represents a small fibroadenoma. Tissue diagnosis is recommended. ASSESSMENT CATEGORY: BIRADS Category 4: Suspicious - Biopsy Should Be Considered. A letter regarding these results will be sent to the patient by the facility within 30 days. Electronically Signed: Franky Gardner MD at 11:24 EST Tel [phone], Service support ,
--- OUTSIDE RECORDS SUMMARY | 2018-09-14 10:59 | XMS RPT_ITS ---
:1950 Author Organization OHIP Care Team Providers Name Role Phone VALERIE SÁNCHEZ Referring Unavailable VALERIE SÁNCHEZ Attending Unavailable VALERIE SÁNCHEZ Referring Unavailable VALERIE SÁNCHEZ Referring Unavailable MIAH OLMSTEAD Referring Unavailable MIAH OLMSTEAD Attending Unavailable MIAH OLMSTEAD Referring Unavailable MIAH OLMSTEAD Referring Unavailable VALERIE SÁNCHEZ Referring Unavailable MIAH OLMSTEAD Referring Unavailable MANZON, VALERIE D Referring Unavailable MANZON, VALERIE D Attending Unavailable MANZON, VALERIE D Referring Unavailable MANZON, VALERIE D Referring Unavailable PALMA LOVETT (FLOOR PERSON) Attending Unavailable MANZON, VALERIE D Referring Unavailable MANZON, VALERIE D Referring Unavailable Will Ruiz Attending Unavailable Joseph, Will Referring Unavailable Olmstead, Miah Primary Care Unavailable Joseph, Will Attending Unavailable [place], Will Referring Unavailable [place]mstead, Miah Primary Care Unavailable Will Ruiz Consulting Unavailable Jolynn Stevens Attending Unavailable [place], Miah Primary Care Unavailable [place], Will Attending Unavailable [place]mstead, Miah Referring Unavailable Andrzej Rowan Attending Unavailable Andrzej Rowan Attending Unavailable Andrzej Rowan Attending Unavailable Las PiedrasWill Attending Unavailable [place]mstead, Miah Referring Unavailable Joseph, Will Attending Unavailable [place], Miah Referring Unavailable PROBLEMS PROBLEMS DATE TYPE CONDITION / CODE ATTENDING STATUS SOURCE 08/01/2018 Unknown R92.8 - Other Will Ruiz Active [place] abnormal and [facility] inconclusive Hospital findings on Repository diagnostic imaging of breast / R92.8(ICD-10) 06/14/2018 Active Other specified PALMA LOVETT Active [facility] disorders of bone (FLOOR PERSON) [place] density and Repository structure, unspecified site / M85.80(ICD-10) 06/07/2018 Unknown Z12.4 - Encounter Andrzej Rowan for screening for Community malignant neoplasm Hospital of cervix / Repository Z12.4(ICD-10) 05/09/2018 Active Localized NA Active [facility] swelling, mass and [place] lump, right upper Repository limb / R22.31(ICD-10) 03/02/2017 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 Active [facility] (current) use of D [place] systemic steroids Repository / Z79.52(ICD-10) 01/18/2018 Active Cardiac murmur, NA Active [facility] unspecified / [place] R01.1(ICD-10) Repository 01/18/2018 Active Nonrheumatic NA Active [facility] mitral (valve) [place] prolapse / Repository I34.1(ICD-10) 01/12/2018 Active 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 [facility] (current) drug [place] therapy / Repository Z79.899(ICD-10) 12/24/2017 Active Unknown / VALERIE SÁNCHEZ Active [facility] UNK(Unknown) D [place] Repository 01/17/2017 Active Giant cell NA Active [facility] arteritis with [place] polymyalgia Repository rheumatica / M31.5(ICD-10) 03/05/2016 Active Age-related NA Active [facility] osteoporosis [place] without current Repository pathological fracture / M81.0(ICD-10) 10/28/2015 Active Raynaud's syndrome NA Active [facility] without gangrene / [place] I73.00(ICD-10) Repository PROCEDURES PROCEDURES No Procedure Records FoundRESULTS RESULTS OPERATIVE REPORT Observed: 08/01/2018 Status: F Source: [place] 10:02 AM [facility] REPOSITORY [facility] Medical Records Department [address] [place] [address] Operative Report 08/01/18 0957 MR#: [id number] Acct: [id number] Name: CECELIA QUIROZ Rep #: [id number] : 1950 68 From: Will Ruiz MD [...] F Source: [place] (CHOOSE SITE) 8:00 AM [facility] REPOSITORY Patient: CECELIA QUIROZ : 1950 (68/F) Acct Num: [id number] Phys: Joseph JAMES,Will Unit Num: [id number] Loc: OPUS Specimen: [id number] Received: 08/01/1848 Spec Type: BREAST BX TISSUES 1 TISSUES: Right breast, NOS GROSS DESCRIPTION Received in fixative is one container labeled with the patient's name and designated right breast. The specimen consists of multiple elongated fragments of palomares-yellow fibroadipose tissue that in aggregate measure 1.5 x 1 x 0.1 cm. The entire specimen is submitted in one cassette. / SJ:lili 08/01/18 TC:5 CPT: 07353 HEADER OPERATION: Right breast biopsy, ultrasound-guided PRE-OP [...] on file> Performed By: #### PBRBX #### [facility] [address] [place], [place], [id number] US BREAST BIOPSY Observed: 08/01/2018 Status: F Source: [place] 1ST LESION 7:29 AM [facility] REPOSITORY [facility] Imaging Services [address] [place] [address] US Breast Biopsy 1st Lesion MR#: [id number] Acct: [id number] Name: CECELIA QUIROZ Rep #: [id number] : 1950 F 68 From: Franky Gardner MD PCP: Miah Aguayo DO Status: REG CLI Study: US Breast Biopsy 1st Lesion Date of Exam: 08/01/18 Exam# [id number] Ordering Dr: Will Ruiz MD STUDY: ULTRASOUND [...] Franky Gardner MD at 8:36 EST Tel [phone], Service support , CC: Will Ruiz MD; Miah Aguayo DO Clinical Fellow: Signed SURGERY VISIT REPORT Observed: 07/29/2018 Status: F Source: MARCEL[place] 2:30 PM [facility] [address] [place] [address]. [address] [place] [address] OFFICE VISIT Date of Service: 07/29/18 MR#: [id number] Acct: [id number] Name: CECELIA QUIROZ Rep #: [id number] : 1950 Provider: Will Ruiz MD Age/Sex: 68/F [place] [facility] Status: Signed Intake Intake Visit Reasons: US Guided Handheld Mammotome BX Rt Breast Harp Repairer Required: No Is patient in pain?: No [...] 60 mg/mL subcutaneous syringe 60 mg SC [id number] 07/25/18 [History Confirmed 07/29/18] folic acid 800 [...] VISIT REPORT Observed: 07/25/2018 Status: F Source: MARCELINE 2:39 PM [facility] REPOSITORY [facility] [address] [place] [address] [address] [place] [address] OFFICE VISIT Date of Service: 07/25/18 MR#: [id number] Acct: [id number] Name: CECELIA QUIROZ Rep #: [id number] : 1950 Provider: Will Ruiz MD Age/Sex: 68/F Location: [facility] Status: Signed Intake Vital Signs07/25/18 Height 5 ft 5 in 07/25/18 Weight: 150 lb 2 oz 07/25/18 Body Mass Index (BMI) 25.0 07/25/18 Blood Pressure 144/80 H Intake Visit Reasons: R Breast Birads 4 Mammo 07/19 US 07/22 Chief Complaint: abn mammo/US right Harp Repairer Required: No Is patient in pain?: No [...] 60 mg/mL subcutaneous syringe 60 mg SC [id number] 07/25/18 [History Confirmed 07/25/18] folic acid 800 [...] has had her mammogram and ultrasound completed [facility] on 07/22/2018. In the right breast [...] blood clots Neuro Neurologic: No weakness Exam [facility] Head: normal to inspection, normocephalic, atraumatic Mouth: [...] Status: F Source: [place] UNILATERAL 8:55 AM [facility] REPOSITORY [facility] Imaging Services [address] [place] [address] Breast Limited Unilateral MR#: [id number] Acct: [id number] Name: CECELIA QUIROZ Rep #: [id number] : 1950 F 68 From: Franky Gardner MD PCP: Miah Aguayo DO Status: REG CLI Study: Breast Limited Unilateral Date of Exam: 07/22/18 Exam# [id number] Ordering Dr: Andrzej Rowan MD STUDY: ULTRASOUND [...] Franky Gardner MD at 11:24 EST Tel [phone], Service support , CC: Andrzej Rowan MD; Miah Aguayo DO Clinical Fellow: Signed SCREENING MAMM (CAD), Observed: 07/19/2018 Status: F Source: [facility] 9:25 AM [facility] REPOSITORY [facility] Imaging Services [address] [place] [address] SCREENING MAMM (CAD), BILAT MR#: [id number] Acct: [id number] Name: CECELIA QUIROZ Rep #: [id number] : 1950 F 68 From: Franky Gardner MD PCP: Miah Aguayo DO Status: REG CLI Study: SCREENING MAMM (CAD), BILAT Date of Exam: 07/19/18 Exam# [id number] Ordering Dr: Andrzej Rowan MD MAMMOGRAPHY - [...] delay biopsy of a clinically suspicious abnormality. [id number] Electronically Signed: Franky Gardner MD at 10:20 EST Tel [phone], Service support , CC: Andrzej Rowan MD; Miah Aguayo DO Clinical Fellow: Signed CBC AND DIFFERENTIAL Collected: 07/03/2018 Status: F Source: [place] 11:[address] [facility] REPOSITORY TYPE CODE TESTS RESULT [...] k/uL Abs Lymph 1.98 LAB AMONO % Radford% 4.4 LAB AAMONO <0.87 k/uL Abs Radford 0.69 LAB AEOS % Eosin% 0.1 LAB AAEOS <0.46 k/uL Abs Eosin <0.03 LAB ABASO % Baso% 0.4 LAB AABASO <0.11 k/uL Abs Baso 0.06 LAB AUNRBC 0 /100 WBC NRBCs 0.0 LAB ABNRBC <0.01 k/uL Absolute nRBC <0.01 LAB DTYP DTYPE Auto Diff Performed By: #### CBCDIF, ALB, ALT, AST, CRET1 #### [facility] [employer] [place] [address] ALBUMIN Collected: 07/03/2018 Status: F Source: [place] 11:41 [facility] REPOSITORY TYPE CODE TESTS RESULT OUT OF REFERENCE UNITS RANGE LAB ALB 3.9-4.9 g/dL Albumin 4.2 Performed By: #### CBCDIF, ALB, ALT, AST, CRET1 #### [facility] [place] [address] ALT Collected: 07/03/2018 Status: F Source: [place] 11:41 [facility] REPOSITORY TYPE CODE TESTS RESULT OUT OF RANGE REFERENCE UNITS LAB ALT 7-38 U/L ALT 13 Performed By: #### CBCDIF, ALB, ALT, AST, CRET1 #### [facility] [address] [place] [id number] AST Collected: 07/03/2018 Status: F Source: [place] 11:41 AM [facility] REPOSITORY TYPE CODE TESTS RESULT OUT OF RANGE REFERENCE UNITS LAB AST 13-35 U/L AST 18 Performed By: #### CBCDIF, ALB, ALT, AST, CRET1 #### [facility] [address] [place], [place] [address] CREATININE Collected: 07/03/2018 Status: F Source: [place] 11:41 AM [facility] REPOSITORY TYPE CODE TESTS RESULT OUT [...] #### CBCDIF, ALB, ALT, AST, CRET1 #### [facility] [address] [place] [address] CNOV Observed: 06/14/2018 Status: COMPLETED Source: [place] 8:40 AM [facility] REPOSITORY Office Visit (RHEUST) CECELIA QUIROZ ([id number]) 1950 F Date Time Provider Department 06/14/18 [...] Glaucoma PUD - d/t NSAIDs Cataracts bilaterally OBSTETRICAL/MARKETING SPECIALIST HISTORY LMP: 1982 PAST SURGICAL HISTORY Past [...] Number of children: 2 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 If she is unable [...] EGD) -avoid NSAIDs 5. MICROSCOPIC HEMATURIA -sees rail project engineer Dr. Jolynn Stevens ([place]), workup negative per patient 6. GENERAL HEALTH [...] your next visit. Referring Provider: VALERIE SÁNCHEZ [[id number]] Allergies As of Date: 06/14/2018 (No Known [...] [G56.00] 10/29/2007 HEMATURIA [599.7] 10/29/2007 More... ROUTINE MARKETING SPECIALIST CARE - [place] [Z01.419] INVALID FOR*10/19/2011 Class: Chronic More... 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 If she is unable [...] EGD) -avoid NSAIDs 5. MICROSCOPIC HEMATURIA -sees rail project engineer Dr. Jolynn Stevens ([place]), workup negative per patient 6. GENERAL HEALTH MAINTENANCE -influenza vaccination given May 2018 -she will follow up with her PCP for her general health issues FU 3 mon, sooner if needed Palma Lovett APRN.FLOOR PERSON PAP IG HPV HR Collected: 06/07/2018 Status: F Source: [place] APTIMA 12:00 PM [facility] REPOSITORY Order Comment: CYTOLOGY INFORMATION: - CLINICAL INFORMATION: HYSTERECTOMY - DATE LMP/MENOPAUSE: - COLLECTION VIAL: Thin Prep Vial - MARKETING SPECIALIST SOURCE: VAGINAL - COLLECTION TECHNIQUE: SPATULA ONLY Specimen Comment: [id number] Specimen Comment: Source.............Vagina Specimen Comment: LMP / [...] Normal PERFORM Comment Result Comment: Bj Singer, Customer Service Representative (ASCP) LAB [id number] . Normal SIGN Comment [...] (16/18/31/33/35/39/45/ 51/52/56/58/59/66/68) without differentiation. Performed at: - [facility] [id number] [employer] Faculty Member: Shari Cancino MD, Phone: [phone] Performed at: = - [facility] [address] [id number] [employer] Faculty Member: Shari Cancino MD, Phone: [phone] Performed By: #### [id number] #### [facility] (refer to report for specific site) refer to report for address and phone number X-LINK N-TELOPEPTIDE Collected: 05/11/2018 Status: F Source: [place] 9:14 AM [facility] REPOSITORY TYPE CODE TESTS RESULT OUT OF RANGE REFERENCE UNITS LAB UNTX 14.4-75.0 nM/mM Creat X-Link 26.0 N-telopeptid e Performed By: #### UNTX2 #### [facility] [place] [place], [place] [address] CBC AND DIFFERENTIAL Collected: 05/09/2018 Status: F Source: [place] 5:54 PM [facility] REPOSITORY TYPE CODE TESTS RESULT OUT [...] k/uL Abs Lymph 2.72 LAB AMONO % [place]ford% 4.8 LAB AAMONO <0.87 k/uL Abs [place] 0.72 LAB AEOS % Eosin% 0.0 LAB AAEOS <0.46 k/uL Abs Eosin <0.03 LAB ABASO % Baso% 0.2 LAB AABASO <0.11 k/uL Abs Baso 0.03 LAB AUNRBC 0 /100 WBC NRBCs 0.0 LAB ABNRBC <0.01 k/uL Absolute nRBC <0.01 LAB DTYP DTYPE Auto Diff Performed By: #### CBCDIF, WSR, CA, CRET1, CRP, HFP, VITD #### [facility] [address] [place], [place] [address] SED RATE WESTERGREN Collected: 05/09/2018 Status: F Source: [place] 5:54 PM [facility] REPOSITORY TYPE CODE TESTS RESULT OUT OF REFERENCE UNITS RANGE LAB WSR 0-20 mm/hr Sed Rate High W[place]gren 49 Performed By: #### CBCDIF, WSR, CA, CRET1, CRP, HFP, VITD #### [facility] [address] [place] [address] CALCIUM, TOTAL Collected: 05/09/2018 Status: F Source: [place] 5:54 PM [facility] REPOSITORY TYPE CODE TESTS RESULT OUT OF RANGE REFERENCE UNITS LAB CA 8.5-10.2 mg/dL Calcium, 9.6 Total Performed By: #### CBCDIF, WSR, CA, CRET1, CRP, HFP, VITD #### [facility] [address] [place] [address] CREATININE Collected: 05/09/2018 Status: F Source: [place] 5:54 PM [facility] REPOSITORY TYPE CODE TESTS RESULT OUT [...] WSR, CA, CRET1, CRP, HFP, VITD #### [facility] [address] [place] [address] C-REACTIVE PROTEIN Collected: 05/09/2018 Status: F Source: [place] 5:54 PM [facility] REPOSITORY TYPE CODE TESTS RESULT OUT OF REFERENCE UNITS RANGE LAB CRP <0.9 mg/dL C-Reactive 0.8 Protein Performed By: #### CBCDIF, WSR, CA, CRET1, CRP, HFP, VITD #### [facility] [address] [place] [address] HEPATIC FUNCTN PANEL Collected: 05/09/2018 Status: F Source: [place] 5:54 PM [facility] REPOSITORY TYPE CODE TESTS RESULT OUT [...] WSR, CA, CRET1, CRP, HFP, VITD #### [facility] [address] [place] [address] VITAMIN D 25 HYDROXY Collected: 05/09/2018 Status: F Source: [place] 5:54 PM [facility] REPOSITORY TYPE CODE TESTS RESULT OUT OF REFERENCE UNITS RANGE LAB VITD 31.0-80.0 ng/mL Low Vitamin D 25 26.5 Hydroxy Result Comment: Classification of 25 [place] Vitamin D status: Insufficiency/Moderate Deficiency: < or = 30 ng/mL Sufficiency/Optimal Levels: 31 to 80 ng/mL Toxicity: > 100 ng/mL Test performed by chemiluminescent immunoassay. Performed By: #### CBCDIF, WSR, CA, CRET1, CRP, HFP, VITD #### [facility] [address] [place] [address] CNOV Observed: 05/09/2018 Status: COMPLETED Source: [place] 4:20 PM [facility] REPOSITORY Office Visit (RHEUST) CECELIA QUIROZ ([id number]) 1950 F Date Time Provider Department 05/09/18 [...] often. 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 If she is unable [...] EGD) -avoid NSAIDs 5. MICROSCOPIC HEMATURIA -sees rail project engineer Dr. Jolynn Stevens ([place]), workup negative per patient 6. GENERAL HEALTH [...] is needed. You can go to any [facility] facility to have the labs drawn since the orders are in the system. Please ensure that your daily calcium intake (ideally by diet) is 1627-1943 mg per day. 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] residential systemic steroid user [Z79.52] Nodule of finger of right hand [R22.31] Order(s):C-REACTIVE PROTEIN (CRP) [SQCRP] Order #: [id number] STANDING SED RATE WESTERGREN [SQWSR] Order #: [id number] STANDING CROSS-LINK N-TELOPEP [SQUNTX2] Order #: [id number] FUTURE VITAMIN D 25 HYDROXY [SQVITD] Order #: [id number] FUTURE CREATININE BLD [SQCRET] Order #: [id number] FUTURE CALCIUM TOTAL BLD [SQCA] Order #: [id number] FUTURE US HAND/FINGER RT [6870752] Order #: [id number] FUTURE CBC + DIFF [SQCBCDIF] Order #: [id number] FUTURE HEPATIC FUNCTION PNL [SQHFP] Order #: [id number] FUTURE Prescriptions as of 05/09/2018 Sig: X [...] [G56.00] 10/29/2007 HEMATURIA [599.7] 10/29/2007 More... ROUTINE MARKETING SPECIALIST CARE - [place] [Z01.419] INVALID FOR*10/19/2011 Class: Chronic More... TEAR MED MENISC KNEE-CURRENT [DFH7683] INVALID FOR* Cellulitis and Abscess of Face [L03.211, L02.01]INVALID FOR* Adjustment Disorder with Anxiety [F43.22] INVALID FOR* More... Routine general medical examination at a [facility]*INVALID FOR*11/27/2011 Priority: Moderate Class: Chronic More... 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 You can go to any [facility] facility to have the labs drawn since the orders are in the system. Please ensure that your daily calcium intake (ideally by diet) is 2106-5868 mg per day. If you are unable [...] 05/26/18 PROGRESS Observed: 05/08/2018 Status: COMPLETED Source: [place] 6:50 PM [facility] REPOSITORY HNO ID: [id number] Author: Valerie Sánchez Service: (none) Author Type: [...] often. 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 If she is unable [...] EGD) -avoid NSAIDs 5. MICROSCOPIC HEMATURIA -sees rail project engineer Dr. Jolynn Stevens ([place]), workup negative per patient 6. GENERAL HEALTH MAINTENANCE -influenza vaccination given May 21, 2017 -she will follow up with her PCP for her general health issues FU 4 -5mon, sooner if needed SED RATE WESTERGREN Collected: 05/04/2018 Status: F Source: [place] 10:40 AM [facility] REPOSITORY TYPE CODE TESTS RESULT OUT OF REFERENCE UNITS RANGE LAB WSR 0-20 mm/hr Sed Rate High Westergren 45 Performed By: #### WSR, CRP #### [facility] [address] [place], [place] [address] C-REACTIVE PROTEIN Collected: 05/04/2018 Status: F Source: [place] 10:40 AM [facility] REPOSITORY TYPE CODE TESTS RESULT OUT OF REFERENCE UNITS RANGE LAB CRP <0.9 mg/dL C-Reactive 0.7 Protein Performed By: #### WSR, CRP #### [facility] [address] [place], [place] [address] BD DXA - AXIAL Observed: 01/28/2018 Status: F Source: [place] SKELETON 8:33 AM [facility] REPOSITORY * * *Final Report* * * DATE OF EXAM: Jan 28 2018 8:33AM [facility] 0804 - BD DXA - AXIAL SKELETON / PROCEDURE REASON: multiple diagnoses * * * * Physician Interpretation * * * * PROCEDURE: BD DXA - AXIAL SKELETON INDICATION: Giant cell arteritis with polymyalgia rheumatica Age-related osteoporosis without current pathological fracture residential (current) use of systemic steroids TECHNIQUE: Low [...] Osteoporosis Less than or equal to -2.5 Clinical Fellow: PSCJaya Transcribe Date/Time: Jan 28 2018 8:53A Dictated by : LUCILA HASKINS MD This examination was interpreted and the report reviewed and electronically signed by: LUCILA HASKINS MD on Jan 28 2018 8:55AM EST [id number] Observed: 01/28/2018 Status: COMPLETED Source: [place] 8:09 AM [facility] REPOSITORY HNO ID: [id number] Author: Irene Fowler Rt Service: (none) Author Type: (none) Type: Progress Notes Filed: 01/28/2018 8:32 AM Note Text: Cecelia Quiroz January 28, 2018 [id number] Double identification: Patient identified by name and Bone Density Completed. Irene Fowler Rt patient told of radiation jk 8:30 am not PROGRESS Observed: 01/18/2018 Status: COMPLETED Source: [place] 8:01 AM [facility] REPOSITORY HNO ID: [id number] Author: Miah Olmstead Service: (none) Author Type: Physician Type: Progress Notes Filed: 01/18/2018 5:30 PM Note Text: CC: Cecelia Quiroz is a 67 year old female who presents to the office for physical HPI: PMR, giant cell arteritis, overall is stable, still intermittent flare ups, seeing Dr. Sánchez for Skirt Panel Assembler care, no recent rx changes Mood, stable, [...] hemorrhage)(562.11) 2003 - GCA (giant cell arteritis) ([facility]) bx negative - Glaucoma - Hematuria 1999 [...] - Coronary Artery Disease Father Hx of GA, age 71 - Cancer Sister lung CA [...] agreed with the plan. Miah Olmstead DO [address] [place] [address] CNOV Observed: 01/18/2018 Status: COMPLETED Source: [place] 7:40 AM [facility] REPOSITORY Office Visit (FAMPWS) QUIROZ,CECELIA Ibis ([id number]) 1950 F Date Time Provider Department 01/18/18 [...] intermittent flare ups, seeing Dr. Sánchez for Skirt Panel Assembler care, no recent rx changes Mood, stable, [...] hemorrhage)(562.11) 2003 - GCA (giant cell arteritis) ([facility]) bx negative - Glaucoma - Hematuria 1999 had workup including cystoscopy, etc. - entire workup negative. No longer happening. - Iron deficiency anemia, unspecified ? related to UGI source from NSAID's - PMR (polymyalgia rheumatica) ([facility]) - Raynaud's disease /phenomenon - Steroid long-term [...] - Coronary Artery Disease Father Hx of GA, age 71 - Cancer Sister lung CA [...] with the plan. Miah Olmstead DO [address] [place] [address] Referring Provider: MIAH OLMSTEAD [[id number]] Allergies As of Date: 01/18/2018 (No Known [...] for 1 dose.Disp: 0.5 mLRfl: 0 ECHO [089377] Order #: [id number]: 1 FUTURE ECG COMPLETE W INTERPRETATION [ECG01] Order #: [id number] FUTURE amoxicillin-clavulanic acid (AUGMENTIN) 875-125 mg per [...] [G56.00] 10/29/2007 HEMATURIA [599.7] 10/29/2007 More... ROUTINE MARKETING SPECIALIST CARE - Harpal [Z01.419] INVALID FOR*10/19/2011 Class: Chronic More... TEAR MED MENISC KNEE-CURRENT [FRA6005] INVALID FOR* Cellulitis and Abscess of Face [L03.211, L02.01]INVALID FOR* Adjustment Disorder with Anxiety [F43.22] INVALID FOR* More... Routine general medical examination at a [facility]*INVALID FOR*11/27/2011 Priority: Moderate Class: Chronic More... 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] INVALID FOR* Infected sebaceous cyst [L72.3, L08.9] INVALID FOR* Cephalalgia [R51] INVALID FOR* Family history of brain aneurysm [Z82.49] INVALID FOR* Giant cell arteritis with polymyalgia rheumatic*INVALID FOR* residential systemic steroid user [Z79.52] INVALID FOR* Actinic [...] PANEL, BASIC Collected: 01/12/2018 Status: F Source: [place] 8:05 AM [facility] REPOSITORY TYPE [...] Desk Reference: National Heart, Lung, and Blood [place]. National Institutes of Health. 2001: NIH Publication No. 01-3305. 2. An International Atherosclerosis Society position paper: global recommendations for the management of dyslipidemia: executive summary, Atherosclerosis. 2014: 232(2):410-413. Performed By: #### LIPB #### [facility] [address] [address] CNPTOUTREA Observed: 01/01/2018 Status: COMPLETED Source: [place] 12:00 AM [facility] REPOSITORY Patient Outreach (FAMPST) CECELIA QUIROZ ([id number]) 1950 F Date Time Provider Department 01/01/18 MIAH OLMSTEAD FAMPST During your visit today, we recorded the following information about you: Allergies As of Date: 01/01/2018 (No Known Allergies) Date Reviewed: 12/24/2017 Reviewed by: Coleen Segura Ma - Fully Assessed Visit Diagnosis:Medication management [Z79.899] Order(s):LIPID PANEL BASIC [SQLIPB] Order #: [id number] FUTURE Prescriptions as of 01/01/2018 Sig: ALENDRONATE [...] [G56.00] 10/29/2007 HEMATURIA [599.7] 10/29/2007 More... ROUTINE MARKETING SPECIALIST CARE - Harpal [Z01.419] INVALID FOR*10/19/2011 Class: Chronic More... TEAR MED MENISC KNEE-CURRENT [HCM4358] INVALID FOR* Cellulitis and Abscess of Face [L03.211, L02.01]INVALID FOR* Adjustment Disorder with Anxiety [F43.22] INVALID FOR* More... Routine general medical examination at a [facility]*INVALID FOR*11/27/2011 Priority: Moderate Class: Chronic More... 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] INVALID FOR* Infected sebaceous cyst [L72.3, L08.9] INVALID FOR* Cephalalgia [R51] INVALID FOR* Family history of brain aneurysm [Z82.49] INVALID FOR* Giant cell arteritis with polymyalgia rheumatic*INVALID FOR* residential systemic steroid user [Z79.52] INVALID FOR* Encounter Status:Closed by KATHRYN CANALES on 05/31/18 SED RATE WESTERGREN Collected: 12/24/2017 Status: F Source: [place] 5:34 PM [facility] REPOSITORY TYPE CODE TESTS RESULT OUT OF REFERENCE UNITS RANGE LAB WSR 0-20 mm/hr Sed Rate High Westergren 40 Performed By: #### WSR, CRP #### [facility] [address] [place], [place] [address] C-REACTIVE PROTEIN Collected: 12/24/2017 Status: F Source: [place] 5:34 PM [facility] REPOSITORY TYPE CODE TESTS RESULT OUT OF REFERENCE UNITS RANGE LAB CRP <0.9 mg/dL High C-Reactive 1.1 Protein Performed By: #### WSR, CRP #### [facility] [address] [place], [place] [address] CNOV Observed: 12/24/2017 Status: COMPLETED Source: [place] 4:20 PM [facility] REPOSITORY Office Visit (MIYA) CECELIA QUIROZ ([id number]) 1950 F Date Time Provider Department 12/24/17 [...] has sporadic sharp pain in the left roman catholic that last a couple of hours . 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 MICROSCOPIC HEMATURIA -sees rail project engineer Dr. Jolynn Stevens ([place]), workup negative per patient 6. GENERAL HEALTH [...] is needed. You can go to any [facility] facility to have the labs drawn since [...] usual activities immediately. 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 ROUTINE MARKETING SPECIALIST CARE - Harpal [Z01.419] INVALID FOR*10/19/2011 Class: Chronic More... TEAR MED MENISC KNEE-CURRENT [HYR6591] INVALID FOR* Cellulitis and Abscess of Face [L03.211, L02.01]INVALID FOR* Adjustment Disorder with Anxiety [F43.22] INVALID FOR* More... Routine general medical examination at a [facility]*INVALID FOR*11/27/2011 Priority: Moderate Class: Chronic More... 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 You can go to any [facility] facility to have the labs drawn since [...] 12/24/17 PROGRESS Observed: 12/23/2017 Status: COMPLETED Source: [place] 4:[address] [facility] [place] REPOSITORY HNO ID: [id number] Author: Valerie Sánchez Service: (none) Author Type: [...] has sporadic sharp pain in the left roman catholic that last a couple of hours . 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 MICROSCOPIC HEMATURIA -sees rail project engineer Dr. Jolynn Stevens ([place]), workup negative per patient 6. GENERAL HEALTH MAINTENANCE -influenza vaccination given May 21, 2017 -she will follow up with her PCP for her general health issues FU 4 mon, sooner if needed C-REACTIVE PROTEIN Collected: 10/19/2017 Status: F Source: [place] 3:56 PM [facility] REPOSITORY TYPE CODE TESTS RESULT OUT OF REFERENCE UNITS RANGE LAB CRP <0.9 mg/dL C-Reactive 0.3 Protein Performed By: #### CRP, WSR #### [facility] [address] [place], [place] [address] SED RATE WESTERGREN Collected: 10/19/2017 Status: F Source: [place] 3:56 PM [facility] REPOSITORY TYPE CODE TESTS RESULT OUT OF REFERENCE UNITS RANGE LAB WSR 0-20 mm/hr Sed Rate High Westergren 37 Performed By: #### CRP, WSR #### [facility] [address] [place], [place] [id number] PROGRESS Observed: 09/01/2017 Status: COMPLETED Source: [place] 3:20 PM [facility] REPOSITORY HNO ID: [id number] Author: Hao Bravo) Aubrie Service: (none) Author [...] Date - Autoimmune disease (HCC) - Cancer ([facility]) 1982 Uterine - Depression - Disorder of bone and cartilage, unspecified - Diverticulitis of colon (without mention of hemorrhage)(562.11) 2003 - GCA (giant cell arteritis) ([facility]) bx negative - Glaucoma - Hematuria 1999 had workup including cystoscopy, etc. - entire workup negative. No longer happening. - Iron deficiency anemia, unspecified ? related to UGI source from NSAID's - PMR (polymyalgia rheumatica) ([facility]) - Raynaud's disease /phenomenon - Steroid long-term [...] - Coronary Artery Disease Father Hx of GA, age 71 Social History Substance Use Topics [...] CNP CNOV Observed: 09/01/2017 Status: COMPLETED Source: [place] 3:15 PM [facility] REPOSITORY Office Visit (UCWSTR) CECELIA QUIROZ ([id number]) 1950 F Date Time Provider Department 09/01/17 [...] Date - Autoimmune disease (HCC) - Cancer ([facility]) 1982 Uterine - Depression - Disorder of bone and cartilage, unspecified - Diverticulitis of colon (without mention of hemorrhage)(562.11) 2003 - GCA (giant cell arteritis) ([facility]) bx negative - Glaucoma - Hematuria 1999 had workup including cystoscopy, etc. - entire workup negative. No longer happening. - Iron deficiency anemia, unspecified ? related to UGI source from NSAID's - PMR (polymyalgia rheumatica) ([facility]) - Raynaud's disease /phenomenon - Steroid long-term [...] - Coronary Artery Disease Father Hx of GA, age 71 Social History Substance Use Topics [...] Allergies) Date Reviewed: 09/01/2017 Reviewed by: Hao (Irineo) Aubrie - Fully Assessed Reason for Visit: [...] [G56.00] 10/29/2007 HEMATURIA [599.7] 10/29/2007 More... ROUTINE MARKETING SPECIALIST CARE - Harpal [Z01.419] INVALID FOR*10/19/2011 Class: Chronic More... TEAR MED MENISC KNEE-CURRENT [AQT8689] INVALID FOR* Cellulitis and Abscess of Face [...] Giant cell arteritis with polymyalgia rheumatic*INVALID FOR* residential systemic steroid user [Z79.52] INVALID FOR* Prescriptions [...] SEVERITY SOURCE 07/29/2018 Drug No Known Unknown [facility] Allergy/416 Allergies/O40370 Hospital 802368(SNOM 0388(RXNORM) Repository ED CT) Drug NO KNOWN [facility] Class/58132 ALLERGIES [address] [place] 1003(SNOMED Repository CT) ENCOUNTERS ENCOUNTERS ADMIT/DISCHARGE ACCOUNT ADMITTING ENCOUNTER LOCATION SOURCE NUMBER CLASS 08/01/2018 [id number] Ambulatory BMSBuilding:[place].CF[facility] Repository 08/01/2018 [id number] [facility] Repository 07/29/2018/07/29/20 [id number] Ambulatory BMSBuilding:[place] [address] MS.[facility] Repository 07/25/2018/07/25/20 [id number] Ambulatory BMSBuilding:B [place] [address] MS.[facility] Repository 07/22/2018 [id number] [facility] Repository 07/19/2018 [id number] [facility] ing:OPBI Repository 07/03/2018/07/03/20 [id number] Ambulatory [address] Repository 06/14/2018/06/17/20 [id number] Ambulatory [address] Repository 06/07/2018 [id number] [facility]:LAB[facility] Repository 05/10/2018 [id number] Ambulatory BMSBuilding:B [place] MS.[facility] Repository 05/09/2018/05/09/20 [id number] Ambulatory [address] Repository 05/09/2018/05/27/20 [id number] Ambulatory [address] Repository 05/04/2018/05/04/20 [id number] Ambulatory [address] Repository 01/28/2018/01/29/20 [id number] Ambulatory [address] Repository 01/28/2018/01/29/20 [id number] Ambulatory [address] Repository 01/18/2018/01/19/20 [id number] Ambulatory [address] Repository 01/18/2018/01/22/20 [id number] Ambulatory [address] Repository 01/12/2018/01/13/20 [id number] Ambulatory [address] Repository 12/24/2017 [id number] Ambulatory [facility] Repository 12/24/2017/12/26/19 [id number] Ambulatory [address] Repository 10/19/2017/10/20/19 [id number] Ambulatory [address] Repository 10/01/2017 [id number] Ambulatory [place] [facility] [place] ing:LAB.FUTUR Repository E 09/01/2017/09/01/19 [id number] Ambulatory [address] Repository PAYERS PAYERS ENCOUNTER GUARANTOR PAYER SUBSCRIBER SOURCE 08/01/2018 CECELIA E Primary CECELIA E [place] [id number] S Insurance:MEDICARE DAWSONDOB: [facility], PART A [facility] [id number] [address]Sfe: Number: Repository [id number] (HP) Date:2018-07-29 08/01/2018 Secondary CECELIA E [place] Insurance:MUTUAL OF DAWSONDOB: [facility] Number: [id number] Hospital [id number] Repository Date:3578-68-41JDVZXK OF [place], [place] [address]UZ: 08/01/2018 Tertiary NOT GIVENUNK [place] Insurance:SELF PAY [facility] Number: Effective Repository Date:2018-08-01 08/01/2018 CECELIA E Primary CECELIA E [place] [id number] S Insurance:MEDICARE DAWSONDOB: [facility], PART A [facility] [id number] Hospital [place] [address]Hgt: Number: Repository [id number] (HP) Date:2018-07-29 08/01/2018 Secondary CECELIA E [place] Insurance:MUTUAL OF DAWSONDOB: [facility] Number: [id number] Hospital [id number] Repository Date:0822-27-48LTPVMC [place] [address]TJ: 08/01/2018 Tertiary NOT GIVENUNK [place] Insurance:SELF PAY [facility] Number: Effective Repository Date:2018-07-29 07/29/2018 CECELIA E Primary CECELIA E [place] [id number] S Insurance:MEDICARE DAWSONDOB: [facility] [place] [id number] Health Center [address]Vyy: Number: Repository [id number] (HP) Date:2018-07-25 07/29/2018 Secondary CECELIA E [place] Insurance:MUTUAL OF DAWSONDOB: [facility] Number: [id number] Hospital [id number] Repository Date:0437-03-22UVTPSF OF [place], [place] [address]NJ: 07/29/2018 Tertiary NOT GIVENUNK [place] Insurance:SELF PAY [facility] Number: Effective Repository Date:2018-07-26 07/25/2018 CECELIA E Primary CECELIA E [place] [id number] S Insurance:MEDICARE DAWSONDOB: [facility] [place], PART A [facility] [id number] Health Center [address]Jol: Number: Repository [id number] (HP) Date:2018-07-23 07/25/2018 Secondary CECELIA E [place] Insurance:MUTUAL OF DAWSONDOB: [facility] Number: [id number] Hospital [id number] Repository Date:9558-22-89UFJZMN OF [place], [place] [address]IL: 07/25/2018 Tertiary NOT GIVENUNK [place] Insurance:SELF PAY [facility] Number: Effective Repository Date:2018-07-23 07/22/2018 CECELIA E Primary CECELIA E [place] [id number] S Insurance:MEDICARE DAWSONDOB: [facility] [place], PART A [facility] [id number] Health Center [address]Wgz: Number: Repository [id number] (HP) Date:2018-07-19 07/22/2018 Secondary CECELIA E [place] Insurance:MUTUAL OF DAWSONDOB: [facility] Number: [id number] Hospital [id number] Repository Date:8078-48[place]MXTDFVC[place]AD[place], [place] [address]KT: 07/22/2018 Tertiary NOT GIVENUNK [place] Insurance:SELF PAY [facility] Number: Effective Repository Date:2018-07-19 07/19/2018 CECELIA E Primary CECELIA E [place] [id number] S Insurance:MEDICARE DAWSONDOB: [facility], PART A [facility] [id number] Health Center [address]Avh: Number: Repository [id number] () Date:2018-06-07 07/19/2018 Secondary CECELIA E [place] Insurance:MUTUAL OF DAWSONDOB: [facility] Number: [id number] Hospital [id number] Repository Date:7051-53-37[place]NMMSJSALT [place], [place] [address]FV: 07/19/2018 Tertiary NOT GIVENUNK [place] Insurance:SELF PAY [facility] Number: Effective Repository Date:2018-06-07 06/07/2018 Cecelia E Primary Cecelia E [place] [id number] S Insurance:MEDICARE DawsonDOB[facility] [id number] Health Center [address]Dpb: Number: Repository [id number] (HP) Date:2018-06-07 06/07/2018 Secondary Cecelia E [place] Insurance:MUTUAL OF DawsonDOB: [facility] Number: [id number] Hospital [id number] Repository Date:2275-55-98QLOTKCSALT [place], [place] [address]FM: 06/07/2018 Tertiary NOT GIVENUNK [place] Insurance:SELF PAY [facility] Number: Effective Repository Date:2018-06-07 05/10/2018 Cecelia E Primary Cecelia E [place] [id number] S Insurance:MEDICARE DawsonD[facility] [id number] Health Center [address]Chc: Number: Repository [id number] () Date:2018-05-02 05/10/2018 Secondary Cecelia E [place] Insurance:MUTUAL OF DawsonDOB: [facility] Number: [id number] Hospital [id number] Repository Date:0909-13-93MZHEHJ OF [facility], [place] [address]QQ: 05/10/2018 Tertiary NOT GIVENUNK [place] Insurance:SELF PAY [facility] Number: Effective Repository Date:2018-05-02 10/01/2017 Cecelia E Primary Cecelia E [place] [id number] Insurance:MEDICARE DawsonDOB: [facility], PART A [facility] [id number] Health Center [address]Aum: Number: Repository [id number] () Date:2017-10-01 10/01/2017 Secondary Cecelia E [place] Insurance:MUTUAL OF DawsonDOB: [facility] Number: [id number] Hospital [id number] Repository Date:0231-15-05FMMJOH OF [facility], [place] [address]CA: 10/01/2017 Tertiary NOT GIVENUNK [place] Insurance:SELF PAY [facility] Number: Effective Repository Date:2017-10-01
== END ==
PROVIDERS: PCP Student in an Organized Health Care Education/Training Program; Visit Provider Obstetrics & Gynecology
DX: R92.8 Other abnormal and inconclusive findings on diagnostic imaging of breast (principal)
CPT/HCPCS: 76642

== ENCOUNTER → 2018-08-01 07:26 | Outpatient (CLI) | payer MEDICARE, OTHER, SELFPAY ==
[2018-07-29 14:30] VITALS: BMI 25.0
--- NOTE | 2018-08-01 07:29 | US_ITS ---
STUDY: ULTRASOUND BREAST - RIGHT REASON FOR EXAM: Female, 68 years old. Ultrasound guided right breast biopsy. TECHNIQUE: Axial and longitudinal images of the RIGHT breast were performed with a high resolution ultrasound transducer. COMPARISON: Comparison is made with prior mammogram dated July 19, 2018 and prior sonogram of the right breast dated July 22, 2018. FINDINGS: RIGHT Breast: Under direct sonographic guidance, the surgeon performed 4 core biopsies of the hypoechoic nodule measuring 6 mm x 6 mm x 4 mm at the 2:00 position the breast at 1 cm from the nipple. US/US Breast Biopsy 1st Lesion IMPRESSION: Successful ultrasound-guided biopsy of the nodular density as described. ASSESSMENT CATEGORY: BIRADS Category 2: Benign. A letter regarding these results will be sent to the patient by the facility within 30 days. Electronically Signed: Franky Gardner MD at 8:36 EST Tel [phone], Service support ,
--- NOTE | 2018-08-01 08:00 | BRBX_PTH ---
PATIENT: [address] LOC: [facility] U#:[id number] AGE/SX: 75/F ROOM: RE08/01/[address]: Dr. Will Ruiz MD : 1950 BED: DIS: SPEC #: [id number] RECD: 08/01/18 08:48 STATUS: TORRES ANTONIO #: [id number] UMESH: 08/01/18 08:[address]: Will Ruiz DEPT: SURGICAL PATHOLOGY RECD BY: Eliu Paul ENTERED: 08/01/18 11:35 SP TYPE: BREAST BX OTHR DR: DO Dr. Andrzej Orlando MD Tissues: Right breast, NOS Procedures: Surgery Specimen Level IV HEADER OPERATION: Right breast biopsy, ultrasound-guided PRE-OP DIAGNOSIS: Right breast nodule TISSUE SUBMITTED: Right breast ISCHEMIC TIME: 60 seconds FIXATION TIME: 11.5 hours MICROSCOPIC DIAGNOSIS Right breast nodule, ultrasound-guided core biopsy: Focal nonproliferative fibrocystic change with associated microcalcifications. Focal involutional change. No evidence of malignancy. AM:lili 08/02/18 MICROSCOPIC DESCRIPTION Slides are reviewed. GROSS DESCRIPTION Received in fixative is one container labeled with the patient's name and designated right breast. The specimen consists of multiple elongated fragments of palomares-yellow fibroadipose tissue that in aggregate measure 1.5 x 1 x 0.1 cm. The entire specimen is submitted in one cassette. / SJ:lili 08/01/18 TC:5 CPT: 46209
--- NOTE | 2018-08-01 09:57 | PCM.OPRPT ---
Problem List (1) Abnormal mammogram of right breast Status: Acute Report of Operation Date of Procedure: 08/01/18 Pre-Operative Diagnosis: Abnormal mammogram to right breast Post-Operative Diagnosis: Same Surgery/Procedure Performed:: Ultrasound-guided handheld mammotome breast biopsy to right breast Type of Anesthesia:: Local Description of Procedure: Patient was brought into the ultrasound unit placed in the supine position. Ultrasound of the right breast in the upper inner quadrant revealed the lesion in question. I prepped the breast with chlorhexidine. I injected local. I injected local under ultrasound guidance posterior to the lesion. A skin mahin was made. I directed the hand-held mammotome needle under ultrasound guidance posterior to the lesion. Numerous biopsies were obtained under ultrasound guidance. Under ultrasound guidance I placed a small Gelfoam titanium clip. Sterile dressings were applied. The patient tolerated the procedure well. - Admit VTE Documentation VTE Present on Admission: No VTE Mechan Device Prophylaxis: None VTE Pharm Prophylaxis ordered?: No Reason prophylaxis not ordered:: Treatment Not Indicated
--- OUTSIDE RECORDS SUMMARY | 2018-09-17 00:45 | XMS RPT_ITS ---
:1950 Author Organization [place] Support Name Relationship Address Phone MIRANDAIR, ERICH Unavailable [address] + [place] [address] R Unavailable Unavailable Unavailable LANDFAIR, ERICH Unavailable [address] + [place] [address] R Unavailable Unavailable Unavailable LANDFAIR, ERICH Unavailable Unavailable + R Unavailable Unavailable Unavailable LANDFAIR, ERICH Unavailable [address] + [place] [address] R Unavailable Unavailable Unavailable LANDFAIR, ERICH Unavailable [address] + [place] [address] R Unavailable Unavailable Unavailable LANDFAIR, ERICH Unavailable [address] + [place] [address] R Unavailable Unavailable Unavailable LANDFAIR, ERICH Unavailable [address] + [place] [address] R Unavailable Unavailable Unavailable LANDFAIR, ERICH Unavailable [address] + [place] [address] R Unavailable Unavailable Unavailable LANDFAIR, ERICH Unavailable [address] + [place] [address] R Unavailable Unavailable Unavailable LANDFAIR, ERICH Unavailable [address] + [place] [address] R Unavailable Unavailable Unavailable Care Team Providers Name Role Phone VALERIE SÁNCHEZ Referring Unavailable VALERIE SÁNCHEZ Attending Unavailable VALERIE SÁNCHEZ Referring Unavailable VALERIE SÁNCHEZ Referring Unavailable MIAH OLMSTEAD Referring Unavailable MIAH OLMSTEAD Attending Unavailable MIAH OLMSTEAD Referring Unavailable OLMSTEAD, MIAH L Referring Unavailable MANZON, VALERIE D Referring Unavailable OLMSTEAD, MIAH L Referring Unavailable MANZON, VALERIE D Referring Unavailable MANZON, VALERIE D Attending Unavailable MANZON, VALERIE D Referring Unavailable MANZON, VALERIE D Referring Unavailable PALMA LOVETT (HOSPICE TEAM LEAD) Attending Unavailable MANZON, VALERIE D Referring Unavailable MANZON, VALERIE D Referring Unavailable ARELI, KIAN (HOSPICE TEAM LEAD) Attending Unavailable OLMSTEAD, MIAH L Referring Unavailable ARELI, KIAN (HOSPICE TEAM LEAD) Referring Unavailable LEMON, YUMIKO (PT) Attending Unavailable ARELI, KIAN (HOSPICE TEAM LEAD) Referring Unavailable ARELI, KIAN (HOSPICE TEAM LEAD) Referring Unavailable LEMON, YUMIKO (PT) Attending Unavailable ARELI, KIAN (HOSPICE TEAM LEAD) Referring Unavailable OLMSTEAD, MIAH L Attending Unavailable Will Ruiz Attending Unavailable Joseph, Will Referring Unavailable Olmstead, Miah Primary Care Unavailable Will Ruiz Attending Unavailable Will Ruiz Referring Unavailable Olmstead, Miah Primary Care Unavailable Will Ruiz Consulting Unavailable Will Ruiz Attending Unavailable Olmstead, Miah Referring Unavailable Jolynn Stevens Attending Unavailable Olmstead, Miah Primary Care Unavailable MedfieldWill Attending Unavailable Olmstead, Miah Referring Unavailable Andrzej Rowan Attending Unavailable Andrzej Rowan Attending Unavailable Andrzej Rowan Attending Unavailable MedfieldWill Attending Unavailable Olmstead, Miah Referring Unavailable Joseph, Will Attending Unavailable Olmstead, Miah Referring Unavailable PROBLEMS PROBLEMS DATE TYPE CONDITION / CODE ATTENDING STATUS SOURCE 08/26/2018 Active Cervicalgia / NA Active [facility] M54.2(ICD-10) [place] Repository 08/28/2018 Active Strain of muscle, NA Active [facility] fascia and tendon [place] at neck level, Repository subsequent encounter / S16.1XXD(ICD-10) 08/15/2018 Active Strain of muscle, NA Active [facility] fascia and tendon [place] at neck level, Repository initial encounter / S16.1XXA(ICD-10) 09/03/2018 Unknown R92.8 - Other Will Ruiz Active [facility] findings on Repository diagnostic imaging of breast / R92.8(ICD-10) 06/14/2018 Active Other specified PALMA LOVETT Active [facility] disorders of bone (HOSPICE TEAM LEAD) [place] density and Repository structure, unspecified site / M85.80(ICD-10) 06/07/2018 Unknown Z12.4 - Encounter Andrzej Rowan Active [facility] for screening for [facility] malignant neoplasm [facility] of cervix / Repository Z12.4(ICD-10) 05/09/2018 Active Localized NA Active [facility] swelling, mass and [place] lump, right upper Repository limb / R22.31(ICD-10) 03/02/2017 Active [employer] MANARACELINALLAVALERIE Active [facility] (current) use of D [place] systemic steroids Repository / Z79.52(ICD-10) 01/18/2018 Active Cardiac murmur, NA Active [facility] unspecified / [place] R01.1(ICD-10) Repository 01/18/2018 Active Nonrheumatic Active [facility] mitral (valve) [place] prolapse / Repository I34.1(ICD-10) 01/12/2018 Active Other [employer] Active [facility] (current) drug [place] therapy / Repository Z79.899(ICD-10) 12/24/2017 Active Unknown / VALERIE SÁNCHEZ Active [facility] UNK(Unknown) D [place] Repository 01/17/2017 Active Giant cell Active [facility] arteritis with [place] polymyalgia Repository rheumatica / M31.5(ICD-10) 03/05/2016 Active Age-related Active [facility] osteoporosis [place] without current Repository pathological fracture / M81.0(ICD-10) 10/28/2015 Active Raynaud's syndrome Active [facility] without gangrene / [place] I73.00(ICD-10) Repository PROCEDURES PROCEDURES No Procedure Records FoundRESULTS RESULTS PROGRESS Observed: 09/04/2018 Status: COMPLETED Source: [facility] 4[facility]52 PM [facility] HNO ID: [id number] Author: Miah Olmstead Service: (none) Author Type: Physician Type: Progress Notes Filed: 09/04/2018 5:03 PM Note Text: CC: Cecelia Quiroz is a 68 year old female who presents to the office for follow up HPI: She was recently seen in office by Kian Singleton CNP, at that time Location is her upper back and neck. Pain radiates into her upper trapezius area and upper neck area. Present for 6-8 months. Does have history of giant cell arteritis and PMR. Is followed by rheumatology. Currently prescribed methotrexate. Is taking prednisone 9 mg daily. Has been on it for approximately 7 years. States that her rheumatology is trying to wean her off of prednisone. Has tried massage, chiropractor, ice, and heat. Nothing assists with reducing. Turning her neck to the left will increase her pain. No fevers or chills. No nighttime awakenings. No weakness in either upper extremity. No neck swelling. No trauma or injury that preceded this complaint. She states that she call the [facility] and they said that she should get an MRI. Has not tried PHYSICAL THERAPY, states that she is not willing to pursue it at this time. She was referred to PHYSICAL THERAPY Currently She has completed 3 sessions with PHYSICAL THERAPY and has not noticed any substantial improvement in her symptoms. She is noticing progressive weakness feeling in left upper and lower arm/hand home health physical therapist, not dropping objects but feels a hot sensation at times down left arm. Still struggling with the discomfort in entire left side of neck, worse as the day goes. Is trying all the conservative treatments as above as well as topical rubs and deep tissue massage and therapy as ordered. Is getting to the point that the pain is unbearable. PAST MEDICAL HISTORY Diagnosis Date - Autoimmune disease ([facility]) - Cancer ([facility]) 1982 Uterine - Depression - Disorder of bone and cartilage, unspecified - Diverticulitis of colon (without mention of hemorrhage)(562.11) 2003 - GCA (giant cell arteritis) ([facility]) bx negative - Glaucoma - Hematuria 1999 had workup including cystoscopy, etc. - entire workup negative. No longer happening. - Iron deficiency anemia, unspecified ? related to UGI source from NSAID's - PMR (polymyalgia rheumatica) ([facility]) - Raynaud's disease /phenomenon - Steroid long-term [...] HYSTERECTOMY 1982 cervical cancer, still has ovaries Current Outpatient Prescriptions: tiZANidine (ZANAFLEX) 4 mg tablet Take 1 tablet by mouth every 6 hours as needed. metoprolol tartrate, short acting, (LOPRESSOR) 25 mg tablet TAKE 1 TABLET BY MOUTH TWICE DAILY FOR TREMOR predniSONE (DELTASONE) 5 mg tablet Take by mouth with food. Using 1 mg and 5 mg tabs, take 9 mg daily. predniSONE (DELTASONE) 1 mg tablet Using 1 mg and 5 mg tabs, take 9 mg qd ergocalciferol, vitamin D2, (VITAMIN D) 50,000 unit capsule Take 50,000 every Tuesdays and for 6 weeks followed by over the counter vitamin D 1000 IU once a day folic acid 1 mg tablet Take 1 tablet by mouth once daily. methotrexate 2.5 mg tablet Take 4 tablets qweek for 2 weeks then 8 tablets qweek thereafter. Omeprazole 40 mg capsule Take 1 capsule by mouth once daily. TRAVOPROST, BENZALKONIUM, (TRAVATAN OPHTHALMIC) Use in eyes. One drop daily at bedtime in both eyes. predniSONE (DELTASONE) 2.5 mg tablet Using 10 [...] not go lower than 20 mg daily No current facility-administered medications for this visit. 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 Uvula midline. Neck: No LAD, no thyromegaly, no meningismus. CV: RRR, no murmur Lungs: CTA b/l, no wheezing Skin: No rashes, lesions, or wounds on exposed skin. Weakness in left hand home health physical therapist, left biceps and left trapezius strength at 4/5 vs right side at 5/5, DTRs normal, Sensation to monofilament/sharp touch is diminished in discrimination on left vs. Right side upper and lower arm and hand Cold sensation is diminished in discrimination on left vs. Right side upper and lower arm and hand ASSESSMENT/PLAN: 1. DDD (degenerative disc disease), cervical - ICD9: 722.4, ICD10: M50.30 (primary diagnosis) - needs to continue PHYSICAL THERAPY and check MRI cervical spine then follow up in office, very concerned with anterolithesis of C4/5 area and her symptoms progressing - MRI CERVICAL SPINE WO IVCON 2. Abnormal findings on diagnostic imaging of other parts of musculoskeletal system - ICD9: 793.7, ICD10: R93.7 - see a cynthia - MRI CERVICAL SPINE WO IVCON 3. Osteoarthritis of spine with radiculopathy, cervical region - ICD9: 721.0, ICD10: M47.22 = see above - MRI CERVICAL SPINE WO IVCON 4. Weakness of left arm - ICD9: 729.89, ICD10: R29.898 - see above - MRI CERVICAL SPINE WO IVCON 5. Arm paresthesia, left - ICD9: 782.0, ICD10: R20.2 - see above - MRI CERVICAL SPINE WO IVCON Miah Olmstead DO Return if no improvement. Follow up with Miah Olmstead DO. . Discussed risks, benefits, alternatives, and potential side effects of medications. Patient/Guardian expressed understanding and agreed with the plan. See patient instructions. Miah Olmstead DO [address] [place] [address] CNOV Observed: 09/04/2018 Status: COMPLETED Source: [facility] 3:00 PM [facility] REPOSITORY [facility] CECELIA QUIROZ ([id number]) 1950 F Date Time Provider Department 09/04/18 3:00 PM AYSHAMIAH Allison MCMULLEN During your visit today, we recorded the following information about you: Temperature Pulse Respiration Blood pressure 97.2 degrees 60/minute 16/minute 120/60 Weight 70.3 kg Miah Olmstead, DO 09/04/2018 3:40 PM Signed Tumeric- curcumin 400 -800 mg twice a day with a meal, okay to have with sanches or pepper extract Miah Olmstead, DO 09/04/2018 5:03 PM Signed CC: Cecelia Ibis Richie is a 68 year old female who presents to the office for follow up HPI: She was recently seen in office by Kian Singleton CNP, at that time Location is her upper back and neck. Pain radiates into her upper trapezius area and upper neck area. Present for 6-8 months. Does have history of giant cell arteritis and PMR. Is followed by rheumatology. Currently prescribed methotrexate. Is taking prednisone 9 mg daily. Has been on it for approximately 7 years. States that her rheumatology is trying to wean her off of prednisone. Has tried massage, chiropractor, ice, and heat. Nothing assists with reducing. Turning her neck to the left will increase her pain. No fevers or chills. No nighttime awakenings. No weakness in either upper extremity. No neck swelling. No trauma or injury that preceded this complaint. She states that she call the [facility] on [facility] and they said that she should get an MRI. Has not tried PHYSICAL THERAPY, states that she is not willing to pursue it at this time. She was referred to PHYSICAL THERAPY Currently She has completed 3 sessions with PHYSICAL THERAPY and has not noticed any substantial improvement in her symptoms. She is noticing progressive weakness feeling in left upper and lower arm/hand home health physical therapist, not dropping objects but feels a hot sensation at times down left arm. Still struggling with the discomfort in entire left side of neck, worse as the day goes. Is trying all the conservative treatments as above as well as topical rubs and deep tissue massage and therapy as ordered. Is getting to the point that the pain is unbearable. PAST MEDICAL HISTORY Diagnosis Date - Autoimmune disease (HCC) - Cancer (HCC) 1982 Uterine - Depression - Disorder of bone and cartilage, unspecified - Diverticulitis of colon (without mention of hemorrhage)(562.11) 2003 - GCA (giant cell arteritis) ([facility]) bx negative - Glaucoma - Hematuria 1999 had workup including cystoscopy, etc. - entire workup negative. No longer happening. - Iron deficiency anemia, unspecified ? related to UGI source from NSAID's - PMR (polymyalgia rheumatica) ([facility]) - Raynaud's disease /phenomenon - Steroid long-term [...] HYSTERECTOMY 1982 cervical cancer, still has ovaries Current Outpatient Prescriptions: tiZANidine (ZANAFLEX) 4 mg tablet Take 1 tablet by mouth every 6 hours as needed. metoprolol tartrate, short acting, (LOPRESSOR) 25 mg tablet TAKE 1 TABLET BY MOUTH TWICE DAILY FOR TREMOR predniSONE (DELTASONE) 5 mg tablet Take by mouth with food. Using 1 mg and 5 mg tabs, take 9 mg daily. predniSONE (DELTASONE) 1 mg tablet Using 1 mg and 5 mg tabs, take 9 mg qd ergocalciferol, vitamin D2, (VITAMIN D) 50,000 unit capsule Take 50,000 every Tuesdays and for 6 weeks followed by over the counter vitamin D 1000 IU once a day folic acid 1 mg tablet Take 1 tablet by mouth once daily. methotrexate 2.5 mg tablet Take 4 tablets qweek for 2 weeks then 8 tablets qweek thereafter. Omeprazole 40 mg capsule Take 1 capsule by mouth once daily. TRAVOPROST, BENZALKONIUM, (TRAVATAN OPHTHALMIC) Use in eyes. One drop daily at bedtime in both eyes. predniSONE (DELTASONE) 2.5 mg tablet Using 10 [...] not go lower than 20 mg daily No current facility-administered medications for this visit. 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 Uvula midline. Neck: No LAD, no thyromegaly, no meningismus. CV: RRR, no murmur Lungs: CTA b/l, no wheezing Skin: No rashes, lesions, or wounds on exposed skin. Weakness in left hand home health physical therapist, left biceps and left trapezius strength at 4/5 vs right side at 5/5, DTRs normal, Sensation to monofilament/sharp touch is diminished in discrimination on left vs. Right side upper and lower arm and hand Cold sensation is diminished in discrimination on left vs. Right side upper and lower arm and hand ASSESSMENT/PLAN: 1. DDD (degenerative disc disease), cervical - ICD9: 722.4, ICD10: M50.30 (primary diagnosis) - needs to continue PHYSICAL THERAPY and check MRI cervical spine then follow up in office, very concerned with anterolithesis of C4/5 area and her symptoms progressing - MRI CERVICAL SPINE WO IVCON 2. Abnormal findings on diagnostic imaging of other parts of musculoskeletal system - ICD9: 793.7, ICD10: R93.7 - see a cynthia - MRI CERVICAL SPINE WO IVCON 3. Osteoarthritis of spine with radiculopathy, cervical region - ICD9: 721.0, ICD10: M47.22 = see above - MRI CERVICAL SPINE WO IVCON 4. Weakness of left arm - ICD9: 729.89, ICD10: R29.898 - see above - MRI CERVICAL SPINE WO IVCON 5. Arm paresthesia, left - ICD9: 782.0, ICD10: R20.2 - see above - MRI CERVICAL SPINE WO IVCON Miah Olmstead DO Return if no improvement. Follow up with Miah Olmstead DO. . Discussed risks, benefits, alternatives, and potential side effects of medications. Patient/Guardian expressed understanding and agreed with the plan. See patient instructions. Miah Olmstead DO [address] [place] [address] Referring Provider: SELF [200] Allergies As of Date: 09/04/2018 (No Known Allergies) Date Reviewed: 09/04/2018 Reviewed by: Ama Solorzano LPN - Fully Assessed Reason for Visit: Pain [78] Cmt: shoulder Primary Visit Diagnosis:DDD (degenerative disc disease), cervical [M50.30] Other Visit Diagnoses:Abnormal findings on diagnostic imaging of other parts of musculoskeletal system [R93.7] Osteoarthritis of spine with radiculopathy, cervical region [M47.22] Weakness of left arm [R29.898] Arm paresthesia, left [R20.2] Order(s):MRI CERVICAL SPINE WO IVCON [[id number]] Order #: [id number] FUTURE Prescriptions as of 09/04/2018 Sig: TIZANIDINE 4 MG TABLET Take 1 tablet by mouth every * METOPROLOL TARTRATE 25 MG TAB* TAKE 1 TABLET BY MOUTH TWICE * PREDNISONE 5 MG TABLET Take by mouth with food. Usin* PREDNISONE 1 MG TABLET Using 1 mg and 5 mg tabs, josiah* ERGOCALCIFEROL (VITAMIN D2) 5* Take 50,000 every Tuesdays an* FOLIC ACID 1 MG TABLET Take 1 tablet by mouth once d* METHOTREXATE SODIUM 2.5 MG TA* Take 4 tablets qweek for 2 w* OMEPRAZOLE 40 MG CAPSULE,CIRO* Take 1 capsule by mouth once * TRAVATAN OPHTHALMIC Use in eyes. One drop daily * PREDNISONE 2.5 MG TABLET Using 10 mg and 2.5 mg tablet* PREDNISONE 20 MG TABLET TAKE TWO AND ONE-HALF TABLETS* PREDNISONE 10 MG TABLET Using 10 mg and 20 mg tablets* Problem List As Of Date 09/04/2018 Noted Resolved Disorder of bone and cartilage [M89.9, M94.9] 03/05/2016 More... ALLERGIC RHINITIS NOS [J30.9] 10/29/2007 MVP (mitral valve prolapse) [I34.1] More... TOBACCO USE DISORDER [F17.200] Diverticulitis of large intestine without perfo*INVALID FOR* More... CARPAL TUNNEL SYNDROME [G56.00] 10/29/2007 HEMATURIA [599.7] 10/29/2007 More... 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 TEAR MED MENISC KNEE-CURRENT [EXF2250] INVALID FOR* Cellulitis and Abscess of Face [L03.211, L02.01]INVALID FOR* Adjustment Disorder with Anxiety [F43.22] INVALID FOR* More... Routine general medical examination at a [facility]*INVALID FOR*11/27/2011 Class: Chronic More... 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] INVALID FOR* Infected sebaceous cyst [L72.3, L08.9] INVALID FOR* Cephalalgia [R51] INVALID FOR* Family history of brain aneurysm [Z82.49] INVALID FOR* Giant cell arteritis with polymyalgia rheumatic*INVALID FOR* [employer] systemic steroid user [Z79.52] INVALID FOR* Actinic keratosis [L57.0] INVALID FOR* Undiagnosed cardiac murmurs [R01.1] INVALID FOR* Cervical myofascial strain [S16.1XXA] INVALID FOR* Neck pain [M54.2] INVALID FOR* Other instructions from your clinician: Tumeric- curcumin 400 -800 mg twice a day with a meal, okay to have with sanches or pepper extract Encounter Status:Closed by MIAH OLMSTEAD DO on 09/04/18 CNTHERAPY Observed: 09/04/2018 Status: COMPLETED Source: [facility] 11:00 AM [facility] REPOSITORY OT/PT/Speech Visit (PTWS) CECELIA QUIROZ ([id number]) 1950 F Date Time Provider Department 09/04/18 11:00 AM YUMIKO SMITH (PT) PTWS Date Time Provider Department Center 09/04/2018 11:00 AM [id number] SMITH (PT) PTWS [facility] Reason for Visit: Physical Therapy [503] Primary Visit Diagnosis:Cervical myofascial strain, subsequent encounter [S16.1XXD] Other Visit Diagnosis:Neck pain [M54.2] Allergies As of Date: 09/04/2018 (No Known Allergies) Date Reviewed: 08/15/2018 Reviewed by: Anca Herman Diabetes Manager - Fully Assessed Prescriptions as of 09/04/2018 Sig: TIZANIDINE 4 MG TABLET Take 1 tablet by mouth every * METOPROLOL TARTRATE 25 MG TAB* TAKE 1 TABLET BY MOUTH TWICE * PREDNISONE 5 MG TABLET Take by mouth with food. Usin* PREDNISONE 1 MG TABLET Using 1 mg and 5 mg tabs, josiah* ERGOCALCIFEROL (VITAMIN D2) 5* Take 50,000 every Tuesdays an* FOLIC ACID 1 MG TABLET Take 1 tablet by mouth once d* METHOTREXATE SODIUM 2.5 MG TA* Take 4 tablets qweek for 2 w* PREDNISONE 2.5 MG TABLET Using 10 mg and 2.5 mg tablet* PREDNISONE 20 MG TABLET TAKE TWO AND ONE-HALF TABLETS* PREDNISONE 10 MG TABLET Using 10 mg and 20 mg tablets* OMEPRAZOLE 40 MG CAPSULE,CIRO* Take 1 capsule by mouth once * TRAVATAN OPHTHALMIC Use in eyes. One drop daily * Progress Notes: Yumiko Smith, PT 09/04/2018 11:49 AM Signed Episode Visit Count: 3 Therapist That Will Oversee The Plan Of Care: 25 Start of Care Date: 08/26/18 Onset Date: 02/23/18 Plan of Care Certification Date: 08/26/18 Patient Identified by Name and Date of : Yes [facility] PHYSICAL THERAPY TREATMENT NOTE ASSESSMENT: Cecelia Ibis Quiroz demonstrated improvements in cervical rotation AROM and favoralbe response to traction treatment (subjective report of decreased pain with manual cervical traction). The patient will continue to benefit from continued skilled physical therapy for cervical AROM, postural correction, manual techniques for pain relief. PLAN FOR NEXT VISIT: Continue with exercise and manual cervial traction d/t favorable response after traction treatment today. May reassess symptom response to repeated cervial movements (directional preference?). May also attempt isometric cervical strengthening if pt tolerates. SUBJECTIVE: Pt states about 5 days ago she started having significantly increased pain. Pain Score: 10/10 (Yesterday I would have said 20/10.) Pain Location: Neck - Left;Shoulder - Left Frequency: Continuous Post Treatment Pain Score: 4/10 Pain Location: Neck - Left OBJECTIVE MEASURES WITH LEVEL OF FUNCTION: Cervical Spine AROM Cervical Rotation Right (degrees)?: 70 Degrees Cervical Rotation Left (degrees)?: 45 TREATMENT: Therapeutic Exercise: 1: UBE arms only seat 6 x 4:15 minutes. 2: B shoulder lulu flexiona nd abduction x 10 each. 3: Standing scapular retraction orange REP band 2x10 4: Posterior shoulder rolls 2x10. 5: Left UT stretch (added R UE fingertip pressure to increase neck stretch) 5x30 seconds 6: Left levator scapula stretch 3x30 seconds. 7: Cervical rotations 1x10. Pt noted increased L cervical pain with repetitive L cervical rotations so did not add another set. Skilled Intervention: Patient was educated in proper exercise technique and purpose for exercises. Reviewed and educated patient on additions/changes for home exercise program and pt is to continue with current HEP. Skilled judgment was provided in selection of appropriate interventions. Correct performance of therapeutic exercises was facilitated with verbal and visual cuing. Patient education as noted. Manual Therapy: 1: manual intermittent cervical traction x 15 min with pressure to tolerance 2: Pt deferred lacrosse ball massage today as she feels this may have irritated it after last session. Skilled Intervention: Manual skills to improve joint mobility, ROM, and decrease pain. Utilized anatomy knowledge of the therapist, and assessment of patient's response to intervention. Billing: [facility]: Therapeutic Exercise ([id number]): 1:1 time: 25 minutes (2 units: 23-37 mins) Manual Therapy ([id number]): 1:1 time: 15 minutes (1 unit: 8-22 mins) Total time: 40 minutes Yumiko Smith PT PROGRESS Observed: 09/04/2018 Status: COMPLETED Source: [place] 10:48 AM [facility] [place] REPOSITORY HNO ID: [id number] Author: Yumiko (Pt) Luis Service: (none) Author Type: Physical Therapist Type: Progress Notes Filed: 09/04/2018 11:49 AM Note Text: Episode Visit Count: 3 Therapist That Will Oversee The Plan Of Care: 25 Start of Care Date: 08/26/18 Onset Date: 02/23/18 Plan of Care Certification Date: 08/26/18 Patient Identified by Name and Date of : Yes REHABILITATION AND SPORTS THERAPY PHYSICAL THERAPY TREATMENT NOTE ASSESSMENT: Cecelia Quiroz demonstrated improvements in cervical rotation AROM and favoralbe response to traction treatment (subjective report of decreased pain with manual cervical traction). The patient will continue to benefit from continued skilled physical therapy for cervical AROM, postural correction, manual techniques for pain relief. PLAN FOR NEXT VISIT: Continue with exercise and manual cervial traction d/t favorable response after traction treatment today. May reassess symptom response to repeated cervial movements (directional preference?). May also attempt isometric cervical strengthening if pt tolerates. SUBJECTIVE: Pt states about 5 days ago she started having significantly increased pain. Pain Score: 10/10 (Yesterday I would have said 20/10.) Pain Location: Neck - Left;Shoulder - Left Frequency: Continuous Post Treatment Pain Score: 4/10 Pain Location: Neck - Left OBJECTIVE MEASURES WITH LEVEL OF FUNCTION: Cervical Spine AROM Cervical Rotation Right (degrees)?: 70 Degrees Cervical Rotation Left (degrees)?: 45 TREATMENT: Therapeutic Exercise: 1: UBE arms only seat 6 x 4:15 minutes. 2: B shoulder lulu flexiona nd abduction x 10 each. 3: Standing scapular retraction orange REP band 2x10 4: Posterior shoulder rolls 2x10. 5: Left UT stretch (added R UE fingertip pressure to increase neck stretch) 5x30 seconds 6: Left levator scapula stretch 3x30 seconds. 7: Cervical rotations 1x10. Pt noted increased L cervical pain with repetitive L cervical rotations so did not add another set. Skilled Intervention: Patient was educated in proper exercise technique and purpose for exercises. Reviewed and educated patient on additions/changes for home exercise program and pt is to continue with current HEP. Skilled judgment was provided in selection of appropriate interventions. Correct performance of therapeutic exercises was facilitated with verbal and visual cuing. Patient education as noted. Manual Therapy: 1: manual intermittent cervical traction x 15 min with pressure to tolerance 2: Pt deferred lacrosse ball massage today as she feels this may have irritated it after last session. Skilled Intervention: Manual skills to improve joint mobility, ROM, and decrease pain. Utilized anatomy knowledge of the therapist, and assessment of patient's response to intervention. Billing: [facility]: Therapeutic Exercise ([id number]): 1:1 time: 25 minutes (2 units: 23-37 mins) Manual Therapy ([id number]): 1:1 time: 15 minutes (1 unit: 8-22 mins) Total time: 40 minutes Yumiko Smith PT PROGRESS Observed: 08/28/2018 Status: COMPLETED Source: [place] 6:49 PM [facility] REPOSITORY HNO ID: [id number] Author: Eliceo (Pt) Tiffany Service: (none) Author Type: Physical Therapist Type: Progress Notes Filed: 08/28/2018 6:55 PM Note Text: Episode Visit Count: 2 Therapist That Will Oversee The Plan Of Care: 25 Start of Care Date: 08/26/18 Onset Date: 02/23/18 Plan of Care Certification Date: 08/26/18 Patient Identified by Name and Date of : Yes REHABILITATION AND SPORTS THERAPY PHYSICAL THERAPY TREATMENT NOTE ASSESSMENT: Cecelia Quiroz demonstrated improvements in cervical AROM with less pain on the left after lacrosse ball mobs. She was able to advance exercises today and had a slight overall reduction in left neck pain. Patient with good follow through with HEP. The patient will continue to benefit from continued skilled physical therapy for progression of strengthening and stretching left neck and manual therapy to assist with pain reduction. PLAN FOR NEXT VISIT: Possibly add cervical retraction and resistive scapular retraction next visit along with manual therapy. SUBJECTIVE: Patient reports feeling pretty good during the day and now this evening pain has increased., Pain Score: 5/10 Pain Location: Neck - Left Description: Burning;Sharp;Other: See comment (nagging) Frequency: Continuous Post Treatment Pain Score: 4/10 Pain Location: Neck - Left Post Treatment Pain Description: Aching;Burning OBJECTIVE MEASURES WITH LEVEL OF FUNCTION: Upright seated posture observed throughout treatment. TREATMENT: Therapeutic Exercise: 1: Left UT stretch 3x30 seconds 2: *Left levator scapula stretch 3x30 seconds. 3: Cervical rotations 1x10. 4: Posterior shoulder rolls 2x10. 5: *Seated scapular retraction 2x10 6: B shoulder lulu flexiona nd abduction x 10 each. 7: UBE arms only seat 5 x 3 minutes. Skilled Intervention: Patient was educated in proper exercise technique and purpose for exercises. Reviewed and educated patient on additions/changes for home exercise program as above (*) Skilled judgment was provided in selection of appropriate interventions. Provided written instruction for home exercise program to facilitate proper performance and compliance. Correct performance of therapeutic exercises was facilitated with verbal and visual cuing. Manual Therapy: 1: manual intermittent cervical traction x 8 min with pressure to tolerance 2: Lacrosse ball mobs left UT and levator scapula region x 8 minutes with firm push per patient tolerance. Skilled Intervention: Manual skills to improve joint mobility, ROM, and decrease pain. Utilized anatomy knowledge of the therapist, and assessment of patient's response to intervention. Billing: [facility]: Therapeutic Exercise ([id number]): 1:1 time: 27 minutes (2 units: 23-37 mins) Manual Therapy ([id number]): 1:1 time: 16 minutes (1 unit: 8-22 mins) Total time: 43 minutes THERESA Benítez PT CNTHERAPY Observed: 08/28/2018 Status: COMPLETED Source: [place] 6:00 PM [facility] [place] REPOSITORY OT/PT/Speech Visit (PTWS) CECELIA QUIROZ ([id number]) 1950 F Date Time Provider Department 08/28/18 6:00 PM DEO BARNES (GETTERING OPERATOR) PTWS Date Time Provider Department Center 08/28/2018 6:00 PM [id number], NANCY (GETTERING OPERATOR) PTWS [facility] Reason for Visit: Physical Therapy [503] Primary Visit Diagnosis:Cervical myofascial strain, subsequent encounter [S16.1XXD] Other Visit Diagnosis:Neck pain [M54.2] Allergies As of Date: 08/28/2018 (No Known Allergies) Date Reviewed: 08/15/2018 Reviewed by: Anca Herman Diabetes Manager - Fully Assessed Prescriptions as of 08/28/2018 Sig: TIZANIDINE 4 MG TABLET Take 1 tablet by mouth every * METOPROLOL TARTRATE 25 MG TAB* TAKE 1 TABLET BY MOUTH TWICE * PREDNISONE 5 MG TABLET Take by mouth with food. Usin* PREDNISONE 1 MG TABLET Using 1 mg and 5 mg tabs, josiah* ERGOCALCIFEROL (VITAMIN D2) 5* Take 50,000 every Tuesdays an* FOLIC ACID 1 MG TABLET Take 1 tablet by mouth once d* METHOTREXATE SODIUM 2.5 MG TA* Take 4 tablets qweek for 2 w* PREDNISONE 2.5 MG TABLET Using 10 mg and 2.5 mg tablet* PREDNISONE 20 MG TABLET TAKE TWO AND ONE-HALF TABLETS* PREDNISONE 10 MG TABLET Using 10 mg and 20 mg tablets* OMEPRAZOLE 40 MG CAPSULE,CIRO* Take 1 capsule by mouth once * TRAVATAN OPHTHALMIC Use in eyes. One drop daily * Progress Notes: Eliceo Allen, PT 08/28/2018 6:55 PM Signed Episode Visit Count: 2 Therapist That Will Oversee The Plan Of Care: 25 Start of Care Date: 08/26/18 Onset Date: 02/23/18 Plan of Care Certification Date: 08/26/18 Patient Identified by Name and Date of : Yes REHABILITATION AND SPORTS THERAPY PHYSICAL THERAPY TREATMENT NOTE ASSESSMENT: Cecelia Zapatason demonstrated improvements in cervical AROM with less pain on the left after lacrosse ball mobs. She was able to advance exercises today and had a slight overall reduction in left neck pain. Patient with good follow through with [facility]. The patient will continue to benefit from continued skilled physical therapy for progression of strengthening and stretching left neck and manual therapy to assist with pain reduction. PLAN FOR NEXT VISIT: Possibly add cervical retraction and resistive scapular retraction next visit along with manual therapy. SUBJECTIVE: Patient reports feeling pretty good during the day and now this evening pain has increased., Pain Score: 5/10 Pain Location: Neck - Left Description: Burning;Sharp;Other: See comment (nagging) Frequency: Continuous Post Treatment Pain Score: 4/10 Pain Location: Neck - Left Post Treatment Pain Description: Aching;Burning OBJECTIVE MEASURES WITH LEVEL OF FUNCTION: Upright seated posture observed throughout treatment. TREATMENT: Therapeutic Exercise: 1: Left UT stretch 3x30 seconds 2: *Left levator scapula stretch 3x30 seconds. 3: Cervical rotations 1x10. 4: Posterior shoulder rolls 2x10. 5: *Seated scapular retraction 2x10 6: B shoulder lulu flexiona nd abduction x 10 each. 7: UBE arms only seat 5 x 3 minutes. Skilled Intervention: Patient was educated in proper exercise technique and purpose for exercises. Reviewed and educated patient on additions/changes for home exercise program as above (*) Skilled judgment was provided in selection of appropriate interventions. Provided written instruction for home exercise program to facilitate proper performance and compliance. Correct performance of therapeutic exercises was facilitated with verbal and visual cuing. Manual Therapy: 1: manual intermittent cervical traction x 8 min with pressure to tolerance 2: Lacrosse ball mobs left UT and levator scapula region x 8 minutes with firm push per patient tolerance. Skilled Intervention: Manual skills to improve joint mobility, ROM, and decrease pain. Utilized anatomy knowledge of the therapist, and assessment of patient's response to intervention. Billing: [facility]: Therapeutic Exercise ([id number]): 1:1 time: 27 minutes (2 units: 23-37 mins) Manual Therapy ([id number]): 1:1 time: 16 minutes (1 unit: 8-22 mins) Total time: 43 minutes Deo Barnes PTAttila Allen PT Previous Version Follow-up and Disposition History Recorded PROGRESS Observed: 08/26/2018 Status: COMPLETED Source: [place] 1:36 PM [facility] [place] REPOSITORY HNO ID: [id number] Author: Yumiko (Pt) Luis Service: (none) Author Type: Physical Therapist Type: Progress Notes Filed: 08/26/2018 3:10 PM Note Text: Episode Visit Count: 1 Therapist That Will Oversee The Plan Of Care: 25 Start of Care Date: 08/26/18 Onset Date: 02/23/18 Plan of Care Certification Date: 08/26/18 Patient Identified by Name and Date of : Yes REHABILITATION AND SPORTS THERAPY PHYSICAL THERAPY EVALUATION PLAN OF CARE: Assessment: Cecelia Quiroz presents with the diagnosis of neck pain. She presents with impairments of decreased cervical AROM, flexibility, soft tissue restrictions and fair posture. She may benefit from skilled therapy services to improve cervical posture, AROM , flexibility and reduce soft tissue restrictions to allow for improved function with decreased pain. Prognosis: Excellent Excellent due to: current objective clinical presentation;within-session changes at evaluation;good support system/ coping skills Goals for Episode of Care: created on 08/26/18 through 10/24/18 Whately in home exercise program. Patient will decrease pain rating by 2 points to meet minimal clinical important difference for numeric pain rating scale. Patient will increase active ROM of cervical spine to 45 deg lateral flexion and 70 deg rotation to allow pt to improved performance of ADLs and decreased pain. Perform prolonged positioning, undisturbed sleep, cleaning, cooking, driving and daily activities with decreased report of symptoms/pain in 4-8 weeks. Demonstrate improvement on functional score: Patient will improve his/her AM-PAC T-scale score by 4 points to indicate a Minimal Clinical Important Difference . Improve postural awareness. G CODE REPORTING Based on clinical assessment and the score on the AM-PAC Scale Score Assessment Tool, the G code and corresponding severity modifiers are documented below. Evaluation: 08/26/2018 Current Status: Carrying, Moving and Handling Objects: G8984 20-39% impaired Goal Status: Carrying, Moving and Handling Objects: G8985 20-39% impaired Planned Interventions, Frequency, and Duration: Current Frequency: 2x/week Duration: 8 weeks Total Number of Visits Planned: 16 Planned Treatment Interventions: Therapeutic exercise;Neuromuscular re-education;Manual therapy;Patient/Family/Caregiver Education;ModalitiesUltrasound PLAN FOR NEXT VISIT: Assess symptom response to initial treatment and HEP. Review HEP to insure correct performance. May add manual soft tissue techniques and/or conitnue with manual traction per symptom presentation. Patient demonstrates good understanding of plan of care and treatment. The above goals and plan of care were discussed and agreed upon by patient/family. SUBJECTIVE: Cecelia Quiroz is a 68 year old female seen today for Pt describes a constant pain L posterior cervical region for the past 6 months of insidious onset. She states that today is a good day. Normally the pain is much worse. Patient Goals: To reduce or eliminate the pain. Functional Limitations: sitting;physical activities;sleeping;driving;cleaning;cooking (Pt states she does everything even though it hurts. ) Prior Level of Function: Independent without limitations Intake Information: Prescription present Previous Treatment: Pain meds?;Massage?;Heat?;Ice? (topical creams) Pain Score: 4/10 (normally it's about 20/10.) Pain Location: Neck - Left (L upper trap to shoulder) Description: Burning;Sharp (constant, almost like a pinch;intermittent numbness L hand) Frequency: Continuous Post Treatment Pain Score: (not rated numerically, states better) Pain Location: Neck - Left Spine History Sleeping Position: Side lying left Sleep Affected by Pain: Pain keeps from falling asleep;Pain awakens OBJECTIVE MEASURES WITH LEVEL OF FUNCTION: Posture / Alignment Posture: Forward head (6 1/4 wall to tragus in sitting) Spine Palpation L Cervical Spine Palpation Tenderness: Levator scapulae;Paraspinals Cervical Spine AROM Cervical AROM determined by: Measurement Cervical Flexion (degrees)?: 55 Degrees Cervical Extension (degrees)?: 45 Degrees Cervical Side-Bend Right (degrees): 30 Degrees (pulling L upper trap) Cervical Side-Bend Left (degrees)?: 23 Degrees (min pain) Cervical Rotation Right (degrees)?: 68 Degrees Cervical Rotation Left (degrees)?: 40 (just a block,can't go any further) Repeated Test Movements - Cervical Repeated Test Movements - Cervical: Yes Cervical PRO - Symptoms During: no effect Cervical PRO - Symptoms After: no effect Cervical RET - Symptoms During: no effect Cervical RET - Symptoms After: no effect UE AROM R UE AROM: full and WNL L UE AROM: full and WNL UE and Cervical Strength Cervical Strength: 4/5 (no pain) Special Tests - Cervical Cervical Special Tests: Cervical Distraction Cervical Distraction: (no effect) Education: Education Learning Preferences: Demonstration;Explanation Barriers: None Learning/educational needs: Home exercise program;Plan of Care Education Provided: Yes, see treatment interventions for education provided Education Provided To: Patient Education Mode/Type: Demonstration;Explanation/Discussion;Literature/Printed Materials;Performance Response to Education/Teach Back: States/Identifies;Return Demonstration TREATMENT: Evaluation Therapeutic Exercise: 1: *cervical retractions 2 x 10 reps 2: *AROM cervical rotations 2 x 10 reps 3: *posterior shoulder circles 2 x 10 reps 4: *R upper trap stretches 3 x 30 sec holds Skilled Intervention: Patient was educated in proper exercise technique and purpose for exercises. Skilled judgment was provided in selection of appropriate interventions. Provided written instruction for home exercise program to facilitate proper performance and compliance. Correct performance of therapeutic exercises was facilitated with verbal and visual cuing. Patient education as noted. Manual Therapy: 1: manual intermittent cervical traction x 5 min with pressure to tolerance Skilled Intervention: Manual skills to improve joint mobility, ROM, and decrease pain. Utilized anatomy knowledge of the therapist, and assessment of patient's response to intervention. Billing: [facility]: Evaluation - Low Complexity ([id number]) Therapeutic Exercise ([id number]): 1:1 time: 25 minutes (2 units: 23-37 mins) Manual Therapy ([id number]): 1:1 time: 5 minutes (no charge) Total time: 52 minutes Yumiko Smith PT CNTHERAPY Observed: 08/26/2018 Status: COMPLETED Source: [place] 1:30 PM [facility] REPOSITORY OT/PT/Speech Visit (PTWS) CECELIA QUIROZ ([id number]) 1950 F Date Time Provider Department 08/26/18 1:30 PM YUMIKO SMITH (PT) PTWS Date Time Provider Department Center 08/26/2018 1:30 PM [id number] SMITH (PT) PTWS [facility] Reason for Visit: PT Eval [747] Primary Visit Diagnosis:Cervical myofascial strain, subsequent encounter [S16.1XXD] Other Visit Diagnosis:Neck pain [M54.2] Allergies As of Date: 08/26/2018 (No Known Allergies) Date Reviewed: 08/15/2018 Reviewed by: Anca Herman Diabetes Manager - Fully Assessed Prescriptions as of 08/26/2018 Sig: TIZANIDINE 4 MG TABLET Take 1 tablet by mouth every * METOPROLOL TARTRATE 25 MG TAB* TAKE 1 TABLET BY MOUTH TWICE * PREDNISONE 5 MG TABLET Take by mouth with food. Usin* PREDNISONE 1 MG TABLET Using 1 mg and 5 mg tabs, josiah* ERGOCALCIFEROL (VITAMIN D2) 5* Take 50,000 every Tuesdays an* FOLIC ACID 1 MG TABLET Take 1 tablet by mouth once d* METHOTREXATE SODIUM 2.5 MG TA* Take 4 tablets qweek for 2 w* PREDNISONE 2.5 MG TABLET Using 10 mg and 2.5 mg tablet* PREDNISONE 20 MG TABLET TAKE TWO AND ONE-HALF TABLETS* PREDNISONE 10 MG TABLET Using 10 mg and 20 mg tablets* OMEPRAZOLE 40 MG CAPSULE,CIRO* Take 1 capsule by mouth once * TRAVATAN OPHTHALMIC Use in eyes. One drop daily * Progress Notes: Yumiko Ignacioace, PT 08/26/2018 3:10 PM Signed Episode Visit Count: 1 Therapist That Will Oversee The Plan Of Care: 25 Start of Care Date: 08/26/18 Onset Date: 02/23/18 Plan of Care Certification Date: 08/26/18 Patient Identified by Name and Date of : Yes REHABILITATION AND SPORTS THERAPY PHYSICAL THERAPY EVALUATION PLAN OF CARE: Assessment: Cecelia Quiroz presents with the diagnosis of neck pain. She presents with impairments of decreased cervical AROM, flexibility, soft tissue restrictions and fair posture. She may benefit from skilled therapy services to improve cervical posture, AROM , flexibility and reduce soft tissue restrictions to allow for improved function with decreased pain. Prognosis: Excellent Excellent due to: current objective clinical presentation;within- session changes at evaluation;good support system/ coping skills Goals for Episode of Care: created on 08/26/18 through 10/24/18 Whately in home exercise program. Patient will decrease pain rating by 2 points to meet minimal clinical important difference for numeric pain rating scale. Patient will increase active ROM of cervical spine to 45 deg lateral flexion and 70 deg rotation to allow pt to improved performance of ADLs and decreased pain. Perform prolonged positioning, undisturbed sleep, cleaning, cooking, driving and daily activities with decreased report of symptoms/pain in 4-8 weeks. Demonstrate improvement on functional score: Patient will improve his/her AM-PAC T-scale score by 4 points to indicate a Minimal Clinical Important Difference . Improve postural awareness. G CODE REPORTING Based on clinical assessment and the score on the AM-PAC Scale Score Assessment Tool, the G code and corresponding severity modifiers are documented below. Evaluation: 08/26/2018 Current Status: Carrying, Moving and Handling Objects: G8984 20-39% impaired Goal Status: Carrying, Moving and Handling Objects: G8985 CJ 20-39% impaired Planned Interventions, Frequency, and Duration: Current Frequency: 2x/week Duration: 8 weeks Total Number of Visits Planned: 16 Planned Treatment Interventions: Therapeutic exercise;Neuromuscular re-education;Manual therapy;Patient/Family/Caregiver Education;ModalitiesUltrasound PLAN FOR NEXT VISIT: Assess symptom response to initial treatment and HEP. Review HEP to insure correct performance. May add manual soft tissue techniques and/or conitnue with manual traction per symptom presentation. Patient demonstrates good understanding of plan of care and treatment. The above goals and plan of care were discussed and agreed upon by patient/family. SUBJECTIVE: Cecelia Quiroz is a 68 year old female seen today for Pt describes a constant pain L posterior cervical region for the past 6 months of insidious onset. She states that today is a good day. Normally the pain is much worse. Patient Goals: To reduce or eliminate the pain. Functional Limitations: sitting;physical activities;sleeping;driving;cleaning;cooking (Pt states she does everything even though it hurts. ) Prior Level of Function: Independent without limitations Intake Information: Prescription present Previous Treatment: Pain meds?;Massage?;Heat?;Ice? (topical creams) Pain Score: 4/10 (normally it's about 20/10.) Pain Location: Neck - Left (L upper trap to shoulder) Description: Burning;Sharp (constant, almost like a pinch;intermittent numbness L hand) Frequency: Continuous Post Treatment Pain Score: (not rated numerically, states better) Pain Location: Neck - Left Spine History Sleeping Position: Side lying left Sleep Affected by Pain: Pain keeps from falling asleep;Pain awakens OBJECTIVE MEASURES WITH LEVEL OF FUNCTION: Posture / Alignment Posture: Forward head (6 1/4 wall to tragus in sitting) Spine Palpation L Cervical Spine Palpation Tenderness: Levator scapulae;Paraspinals Cervical Spine AROM Cervical AROM determined by: Measurement Cervical Flexion (degrees)?: 55 Degrees Cervical Extension (degrees)?: 45 Degrees Cervical Side-Bend Right (degrees): 30 Degrees (pulling L upper trap) Cervical Side-Bend Left (degrees)?: 23 Degrees (min pain) Cervical Rotation Right (degrees)?: 68 Degrees Cervical Rotation Left (degrees)?: 40 (just a block,can't go any further) Repeated Test Movements - Cervical Repeated Test Movements - Cervical: Yes Cervical PRO - Symptoms During: no effect Cervical PRO - Symptoms After: no effect Cervical RET - Symptoms During: no effect Cervical RET - Symptoms After: no effect UE AROM R UE AROM: full and WNL L UE AROM: full and WNL UE and Cervical Strength Cervical Strength: 4/5 (no pain) Special Tests - Cervical Cervical Special Tests: Cervical Distraction Cervical Distraction: (no effect) Education: Education Learning Preferences: Demonstration;Explanation Barriers: None Learning/educational needs: Home exercise program;Plan of Care Education Provided: Yes, see treatment interventions for education provided Education Provided To: Patient Education Mode/Type: Demonstration;Explanation/Discussion;Literature/Printed Materials;Performance Response to Education/Teach Back: States/Identifies;Return Demonstration TREATMENT: Evaluation Therapeutic Exercise: 1: *cervical retractions 2 x 10 reps 2: *AROM cervical rotations 2 x 10 reps 3: *posterior shoulder circles 2 x 10 reps 4: *R upper trap stretches 3 x 30 sec holds Skilled Intervention: Patient was educated in proper exercise technique and purpose for exercises. Skilled judgment was provided in selection of appropriate interventions. Provided written instruction for home exercise program to facilitate proper performance and compliance. Correct performance of therapeutic exercises was facilitated with verbal and visual cuing. Patient education as noted. Manual Therapy: 1: manual intermittent cervical traction x 5 min with pressure to tolerance Skilled Intervention: Manual skills to improve joint mobility, ROM, and decrease pain. Utilized anatomy knowledge of the therapist, and assessment of patient's response to intervention. Billing: [facility]: Evaluation - Low Complexity ([id number]) Therapeutic Exercise (37948): 1:1 time: 25 minutes (2 units: 23-37 mins) Manual Therapy (90453): 1:1 time: 5 minutes (no charge) Total time: 52 minutes Yumiko Smith, PT XR CERVICAL 2V Observed: 08/15/2018 Status: F Source: [place] AP/LAT 9:49 AM [facility] [place] REPOSITORY * * *Final Report* * * DATE OF EXAM: Aug 15 2018 9:49AM WOX [id number] - XR CERVICAL 2V AP/LAT / PROCEDURE REASON: multiple diagnoses * * * * Physician Interpretation * * * * EXAMINATION: XR CERVICAL 2V AP/LAT HISTORY: pt states pain in lower cerivcal upper thoracic for 8 months and bet the shoulder blades no inj Cervical myofascial strain, initial encounter Neck pain . TECHNIQUE: XR CERVICAL 2V AP/LAT Laterality: NOT APPLICABLE Number of different views (projections): 2 M: XB_1 COMPARISON: There are no prior studies for comparison RESULT: AP and lateral Views of the cervical spine demonstrate all 7 cervical vertebral bodies. There is mild vertebral body osteophytosis. The vertebral body heights and intravertebral disc spaces are well-maintained. There is mild 1 to 2 mm anterolisthesis of C4 on C5 with intact spinolaminal line suggesting degenerative etiology. Flexion and extension views would be necessary to evaluate for instability. The atlantoaxial interval and craniocervical junction are intact. The prevertebral soft tissues are unremarkable. IMPRESSION: Mild degenerative change as detailed in report. No acute process. Web Developer Programmer: PSCB Transcribe Date/Time: Aug 15 2018 11:36A Dictated by : KATE SALAS MD This examination was interpreted and the report reviewed and electronically signed by: KATE SALAS MD on Aug 15 2018 11:40AM EST [id number] PROGRESS Observed: 08/15/2018 Status: COMPLETED Source: [place] 9:41 AM [facility] REPOSITORY HNO ID: [id number] Author: Diana Malik (Rt) Mendel Norman Service: (none) Author Type: Can Operator Type: Progress Notes Filed: 08/15/2018 9:49 AM Note Text: Radiology Service Progress Note PATIENT NAME: Cecelia Quiroz DATE OF SERVICE: August 15, 2018 TIME: 9:41 AM PATIENT IDENTITY VERIFICATION COMPLETED USING TWO (2) METHODS: Patient confirmed name verbally and Date of . PATIENT GENDER DATA: Female. status: : No status: NO. PATIENT RELEVANT IMPLANT DATA REVIEWED: Not Applicable RADIOLOGY DEPARTMENT: General X-ray: Exam(s) Completed: Spine X-Ray(s): Cervical AP / LAT PERIPHERAL IV DATA: Not applicable SIGNED BY: RT Nash August 15, 2018 9:41 AM CNOV Observed: 08/15/2018 Status: COMPLETED Source: [place] 9:20 AM [facility] REPOSITORY Office Visit (FAMPWS) CECELIA QUIROZ ([id number]) 1950 F Date Time Provider Department 08/15/18 9:20 AM KIAN SINGLETON ([facility]) FAMPWS During your visit today, we recorded the following information about you: Temperature Pulse Blood pressure Weight 97.9 degrees 62/minute 133/57 69.9 kg Kian Singleton APRN.CNP 08/15/2018 9:40 AM Signed Chief Complaint Patient presents with: Pain: starts at spine ,up into back of neck, into shoulders - 6 to 8 months - would like MRI ordered HPI Cecelia Quiroz is a 68 year old female who presents here today for Above Complaints. Patient presents today for complaints of pain. Location is her upper back and neck. Pain radiates into her upper trapezius area and upper neck area. Present for 6-8 months. Does have history of giant cell arteritis and PMR. Is followed by rheumatology. Currently prescribed methotrexate. Is taking prednisone 9 mg daily. Has been on it for approximately 7 years. States that her rheumatology is trying to wean her off of prednisone. Has tried massage, chiropractor, ice, and heat. Nothing assists with reducing. Turning her neck to the left will increase her pain. No fevers or chills. No nighttime awakenings. No weakness in either upper extremity. No neck swelling. No trauma or injury that preceded this complaint. She states that she call the [facility] on [facility] and they said that she should get an MRI. Has not tried PHYSICAL THERAPY, states that she is not willing to pursue it at this time. Past medical history, appointments, medications, allergies reviewed. Previous Medical History PAST MEDICAL HISTORY Diagnosis Date - Autoimmune disease (HCC) - Cancer ([facility]) 1982 Uterine - Depression - Disorder of bone and cartilage, unspecified - Diverticulitis of colon (without mention of hemorrhage)(562.11) 2003 - GCA (giant cell arteritis) ([facility]) bx negative - Glaucoma - Hematuria 1999 had workup including cystoscopy, etc. - entire workup negative. No longer happening. - Iron deficiency anemia, unspecified ? related to UGI source from NSAID's - PMR (polymyalgia rheumatica) ([facility] [place]) - Raynaud's disease /phenomenon - Steroid long-term use - Tobacco use disorder Previous Surgical History PAST SURGICAL HISTORY Procedure Laterality Date - [...] HYSTERECTOMY 1982 cervical cancer, still has ovaries Family History FAMILY HISTORY Problem Relation Age of Onset - Diabetes Father late in life - Coronary Artery Disease Father Hx of [place], age 71 - Cancer Sister lung [place] - 52 - Cancer Brother lymphoma - 55; h/o kidney transplant - Cancer Brother age 61- metastatic - not sure what primary was Patient Allergies ALLERGIES No Known Allergies Current Medications Current Outpatient Prescriptions on File Prior to Visit: ergocalciferol, vitamin D2, (VITAMIN D) 50,000 unit capsule Take 50,000 every Tuesdays and for 6 weeks followed by over the counter vitamin D 1000 IU once a day folic acid 1 mg tablet Take 1 tablet by mouth once daily. methotrexate 2.5 mg tablet Take 4 tablets qweek for 2 weeks then 8 tablets qweek thereafter. metoprolol tartrate, short acting, (LOPRESSOR) 25 mg tablet TAKE 1 TABLET BY MOUTH TWICE DAILY FOR TREMOR Omeprazole 40 mg capsule Take 1 capsule by mouth once daily. predniSONE (DELTASONE) 1 mg tablet Using 1 mg and 5 mg tabs, take 9 mg qd predniSONE (DELTASONE) 10 mg tablet Using 10 mg and 20 mg tablets, take 40 mg qam. Reduce dose by 5 mg as directed. Do not go lower than 20 mg daily predniSONE (DELTASONE) 2.5 mg tablet Using 10 mg and 2.5 mg tablets, take 25 mg qd. Reduce dose as directed. Do not go lower than 10 mg qd predniSONE (DELTASONE) 20 mg tablet TAKE TWO AND ONE-HALF TABLETS BY MOUTH EVERY MORNING predniSONE (DELTASONE) 5 mg tablet Take by mouth with food. Using 1 mg and 5 mg tabs, take 9 mg daily. TRAVOPROST, BENZALKONIUM, (TRAVATAN OPHTHALMIC) Use in eyes. One drop daily at bedtime in both eyes. No current facility-administered medications on file prior to visit. 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 Reviewed relevant PMHx, PSHx, Social Hx, current medications and allergies. EXAM: BP 133/57 Pulse 62 Temp 36.6 ?C (97.9 ?F) (Tympanic) Wt 69.9 kg (154 lb) BMI 25.24 kg/m? General Appearance: Well appearing, alert, in no acute distress, well-hydrated, well nourished.. Neck: Supple, no adenopathy; thyroid symmetric, normal size, no bruits. Lungs: lungs clear to auscultation. No wheezing, rhonchi, rales. Heart: RRR without murmur, gallop, or rubs. No ectopy. M/S: Does have mild tenderness along each paraspinal muscle in the cervical/upper trapezius area. Does have bilateral upper trapezius tenderness. patient does have some limited ROM with rotation of the neck to the left in the right. Extension of the neck increases pain as does rotation to left with resistance. no vertebral tenderness on exam. Health Maintenance List LUNG CANCER SCREENING due on 2005 PNEUMOVAX AGE 65 AND OVER WITH 5YR LOOKBACK(1) due on 04/13/2019 MAMMOGRAM due on 07/19/2019 DIABETES SCREEN due on 09/25/2019 COLORECTAL CANCER SCREENING,SEE MODIFIER due on 02/18/2020 DTAP,TDAP,TD(2 - Td) due on 01/09/2022 LIPID SCREEN due on 01/12/2023 BONE DENSITY Completed ADULT PREVNAR-13 Completed INFLUENZA Completed HEPATITIS C SCREENING Completed Data reviewed Component Latest Ref Rng AND Units 07/03/2018 WBC 3.70 - 11.00 k/uL 15.51 (H) RBC 3.90 - 5.20 m/uL 4.08 Hemoglobin 11.5 - 15.5 g/dL 12.6 Hematocrit 36.0 - 46.0 % 41.3 MCV 80.0 - 100.0 fL 101.2 (H) MCH 26.0 - 34.0 pG 30.9 MCHC 30.5 - 36.0 g/dL 30.5 RDW-CV 11.5 - 15.0 % 13.6 Platelet Count 150 - 400 k/uL 328 MPV 9.0 - 12.7 fL 10.9 Neut% % 82.3 Abs Neut (ANC) 1.45 - 7.50 k/uL 12.76 (H) Lymph% % 12.8 Abs Lymph 1.00 - 4.00 k/uL 1.98 [place]% % 4.4 Abs [place] <0.87 k/uL 0.69 Eosin% % 0.1 Abs Eosin <0.46 k/uL <0.03 Baso% % 0.4 Abs Baso <0.11 k/uL 0.06 Nucleated Reds 0 /100 WBC 0.0 Absolute nRBC <0.01 k/uL <0.01 Diff Type Auto Diff Creatinine 0.58 - 0.96 mg/dL 0.77 eGFR- >60 eGFR-All Other Races . >60 AST 13 - 35 U/L 18 Albumin 3.9 - 4.9 g/dL 4.2 ALT 7 - 38 U/L 13 ASSESSMENT/PLAN: 1. Cervical myofascial strain, initial encounter - ICD9: 847.0, ICD10: S16.1XXA (primary diagnosis) - Most of the patient's pain was elicited with palpation of muscles in the upper trapezius, posterior scalene area. She cannot take NSAIDs due to her methotrexate. She has been working with rheumatology and decreasing her prednisone and while she knows that this will probably improve her pain she does not wish to interrupt this weaning of the prednisone. I discussed that she probably would get benefit from physical therapy and that we should not jump to MRI of the neck. We will get imaging, start patient on a low-dose of muscle relaxer, have her see physical therapy and follow-up in 4 weeks if not improving. - XR CERV GENERAL 2V AP/LAT - CONSULT TO PHYSICAL THERAPY - TIZANIDINE 4 MG TABLET 2. Neck pain - ICD9: 723.1, ICD10: M54.2 - see #1. - XR CERV GENERAL 2V AP/LAT - CONSULT TO PHYSICAL THERAPY Kian Singleton APRN.HOSPICE TEAM LEAD Referring Provider: MIAH LOMSTEAD [[id number]] Allergies As of Date: 08/15/2018 (No Known Allergies) Date Reviewed: 08/15/2018 Reviewed by: Anca Herman [facility] - Fully Assessed Reason for Visit: Pain [78] Cmt: starts at spine ,up into back of neck, into shoulders - 6 to 8 months - would like MRI ordered Reason For Visit History Recorded Primary Visit Diagnosis:Cervical myofascial strain, initial encounter [S16.1XXA] Other Visit Diagnosis:Neck pain [M54.2] Order(s):XR CERV GENERAL 2V AP/LAT [[id number]] Order #: [id number] FUTURE CONSULT TO PHYSICAL THERAPY [9032] Order #: [id number]: 1 tiZANidine (ZANAFLEX) 4 mg tabletTake 1 tablet by mouth every 6 hours as needed.Disp: 30 tabletRfl: 1 Prescriptions as of 08/15/2018 Sig: ERGOCALCIFEROL (VITAMIN D2) 5* Take 50,000 every Tuesdays an* FOLIC ACID 1 MG TABLET Take 1 tablet by mouth once d* METHOTREXATE SODIUM 2.5 MG TA* Take 4 tablets qweek for 2 w* METOPROLOL TARTRATE 25 MG TAB* TAKE 1 TABLET BY MOUTH TWICE * OMEPRAZOLE 40 MG CAPSULE,CIRO* Take 1 capsule by mouth once * PREDNISONE 1 MG TABLET Using 1 mg and 5 mg tabs, josiah* PREDNISONE 10 MG TABLET Using 10 mg and 20 mg tablets* PREDNISONE 2.5 MG TABLET Using 10 mg and 2.5 mg tablet* PREDNISONE 20 MG TABLET TAKE TWO AND ONE-HALF TABLETS* PREDNISONE 5 MG TABLET Take by mouth with food. Usin* TRAVATAN OPHTHALMIC Use in eyes. One drop daily * TIZANIDINE 4 MG TABLET Take 1 tablet by mouth every * Problem List As Of Date 08/15/2018 Noted Resolved Disorder of bone and cartilage [M89.9, M94.9] 03/05/2016 More... ALLERGIC RHINITIS NOS [J30.9] 10/29/2007 MVP (mitral valve prolapse) [I34.1] More... TOBACCO USE DISORDER [F17.200] Diverticulitis of large intestine without perfo*INVALID FOR* More... CARPAL TUNNEL SYNDROME [G56.00] 10/29/2007 HEMATURIA [599.7] 10/29/2007 More... 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 TEAR MED MENISC KNEE-CURRENT [ONO6441] INVALID FOR* Cellulitis and Abscess of Face [L03.211, L02.01]INVALID FOR* Adjustment Disorder with Anxiety [F43.22] INVALID FOR* More... Routine general medical examination at a [facility]*INVALID FOR*11/27/2011 Class: Chronic More... 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 Disposition: Return in about 4 weeks (around 09/12/2018) for Neck pain. Follow-up and Disposition History Recorded Encounter Status:Closed by KIAN SINGLETON CNP on 08/15/18 PROGRESS Observed: 08/15/2018 Status: COMPLETED Source: [place] 9:17 AM [facility] [place] REPOSITORY HNO ID: [id number] Author: Kian Bravo) Areli Service: (none) Author Type: Nurse Practitioner Type: Progress Notes Filed: 08/15/2018 9:40 AM Note Text: Chief Complaint Patient presents with: Pain: starts at spine ,up into back of neck, into shoulders - 6 to 8 months - would like MRI ordered HPI Cecelia Quiroz is a 68 year old female who presents here today for Above Complaints. Patient presents today for complaints of pain. Location is her upper back and neck. Pain radiates into her upper trapezius area and upper neck area. Present for 6-8 months. Does have history of giant cell arteritis and PMR. Is followed by rheumatology. Currently prescribed methotrexate. Is taking prednisone 9 mg daily. Has been on it for approximately 7 years. States that her rheumatology is trying to wean her off of prednisone. Has tried massage, chiropractor, ice, and heat. Nothing assists with reducing. Turning her neck to the left will increase her pain. No fevers or chills. No nighttime awakenings. No weakness in either upper extremity. No neck swelling. No trauma or injury that preceded this complaint. She states that she call the [facility] on [facility] and they said that she should get an MRI. Has not tried PHYSICAL THERAPY, states that she is not willing to pursue it at this time. Past medical history, appointments, medications, allergies reviewed. Previous Medical History PAST MEDICAL HISTORY Diagnosis Date - Autoimmune disease (HCC) - Cancer ([facility] [place]) 1982 Uterine - Depression - Disorder of bone and cartilage, unspecified - Diverticulitis of colon (without mention of hemorrhage)(562.11) 2003 - GCA (giant cell arteritis) ([facility] [place]) bx negative - Glaucoma - Hematuria 1999 had workup including cystoscopy, etc. - entire workup negative. No longer happening. - Iron deficiency anemia, unspecified ? related to UGI source from NSAID's - PMR (polymyalgia rheumatica) ([facility] [place]) - Raynaud's disease /phenomenon - Steroid long-term use - Tobacco use disorder Previous Surgical History PAST SURGICAL HISTORY Procedure Laterality Date - [...] HYSTERECTOMY 1982 cervical cancer, still has ovaries Family History FAMILY HISTORY Problem Relation Age of Onset - Diabetes Father late in life - Coronary Artery Disease Father Hx of [place], age 71 - Cancer Sister lung CA - 52 - Cancer Brother lymphoma - 55; h/o kidney transplant - Cancer Brother age 61- metastatic - not sure what primary was Patient Allergies ALLERGIES No Known Allergies Current Medications Current Outpatient Prescriptions on File Prior to Visit: ergocalciferol, vitamin D2, (VITAMIN D) 50,000 unit capsule Take 50,000 every Tuesdays and for 6 weeks followed by over the counter vitamin D 1000 IU once a day folic acid 1 mg tablet Take 1 tablet by mouth once daily. methotrexate 2.5 mg tablet Take 4 tablets qweek for 2 weeks then 8 tablets qweek thereafter. metoprolol tartrate, short acting, (LOPRESSOR) 25 mg tablet TAKE 1 TABLET BY MOUTH TWICE DAILY FOR TREMOR Omeprazole 40 mg capsule Take 1 capsule by mouth once daily. predniSONE (DELTASONE) 1 mg tablet Using 1 mg and 5 mg tabs, take 9 mg qd predniSONE (DELTASONE) 10 mg tablet Using 10 mg and 20 mg tablets, take 40 mg qam. Reduce dose by 5 mg as directed. Do not go lower than 20 mg daily predniSONE (DELTASONE) 2.5 mg tablet Using 10 mg and 2.5 mg tablets, take 25 mg qd. Reduce dose as directed. Do not go lower than 10 mg qd predniSONE (DELTASONE) 20 mg tablet TAKE TWO AND ONE-HALF TABLETS BY MOUTH EVERY MORNING predniSONE (DELTASONE) 5 mg tablet Take by mouth with food. Using 1 mg and 5 mg tabs, take 9 mg daily. TRAVOPROST, BENZALKONIUM, (TRAVATAN OPHTHALMIC) Use in eyes. One drop daily at bedtime in both eyes. No current facility-administered medications on file prior to visit. 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 Reviewed relevant PMHx, PSHx, Social Hx, current medications and allergies. EXAM: BP 133/57 Pulse 62 Temp 36.6 ?C (97.9 ?F) (Tympanic) Wt 69.9 kg (154 lb) BMI 25.24 kg/m? General Appearance: Well appearing, alert, in no acute distress, well-hydrated, well nourished.. Neck: Supple, no adenopathy; thyroid symmetric, normal size, no bruits. Lungs: lungs clear to auscultation. No wheezing, rhonchi, rales. Heart: RRR without murmur, gallop, or rubs. No ectopy. M/S: Does have mild tenderness along each paraspinal muscle in the cervical/upper trapezius area. Does have bilateral upper trapezius tenderness. patient does have some limited ROM with rotation of the neck to the left in the right. Extension of the neck increases pain as does rotation to left with resistance. no vertebral tenderness on exam. Health Maintenance List LUNG CANCER SCREENING due on 2005 PNEUMOVAX AGE 65 AND OVER WITH 5YR LOOKBACK(1) due on 04/13/2019 MAMMOGRAM due on 07/19/2019 DIABETES SCREEN due on 09/25/2019 COLORECTAL CANCER SCREENING,SEE MODIFIER due on 02/18/2020 DTAP,TDAP,TD(2 - Td) due on 01/09/2022 LIPID SCREEN due on 01/12/2023 BONE DENSITY Completed ADULT PREVNAR-13 Completed INFLUENZA Completed HEPATITIS C SCREENING Completed Data reviewed Component Latest Ref Rng AND Units 07/03/2018 WBC 3.70 - 11.00 k/uL 15.51 (H) RBC 3.90 - 5.20 m/uL 4.08 Hemoglobin 11.5 - 15.5 g/dL 12.6 Hematocrit 36.0 - 46.0 % 41.3 MCV 80.0 - 100.0 fL 101.2 (H) MCH 26.0 - 34.0 pG 30.9 MCHC 30.5 - 36.0 g/dL 30.5 RDW-CV 11.5 - 15.0 % 13.6 Platelet Count 150 - 400 k/uL 328 MPV 9.0 - 12.7 fL 10.9 Neut% % 82.3 Abs Neut (ANC) 1.45 - 7.50 k/uL 12.76 (H) Lymph% % 12.8 Abs Lymph 1.00 - 4.00 k/uL 1.98 [place]% % 4.4 Abs [place] <0.87 k/uL 0.69 Eosin% % 0.1 Abs Eosin <0.46 k/uL <0.03 Baso% % 0.4 Abs Baso <0.11 k/uL 0.06 Nucleated Reds 0 /100 WBC 0.0 Absolute nRBC <0.01 k/uL <0.01 Diff Type Auto Diff Creatinine 0.58 - 0.96 mg/dL 0.77 eGFR- >60 eGFR-All Other Races . >60 AST 13 - 35 U/L 18 Albumin 3.9 - 4.9 g/dL 4.2 ALT 7 - 38 U/L 13 ASSESSMENT/PLAN: 1. Cervical myofascial strain, initial encounter - ICD9: 847.0, ICD10: S16.1XXA (primary diagnosis) - Most of the patient's pain was elicited with palpation of muscles in the upper trapezius, posterior scalene area. She cannot take NSAIDs due to her methotrexate. She has been working with rheumatology and decreasing her prednisone and while she knows that this will probably improve her pain she does not wish to interrupt this weaning of the prednisone. I discussed that she probably would get benefit from physical therapy and that we should not jump to MRI of the neck. We will get imaging, start patient on a low-dose of muscle relaxer, have her see physical therapy and follow-up in 4 weeks if not improving. - XR CERV GENERAL 2V AP/LAT - CONSULT TO PHYSICAL THERAPY - TIZANIDINE 4 MG TABLET 2. Neck pain - ICD9: 723.1, ICD10: M54.2 - see #1. - XR CERV GENERAL 2V AP/LAT - CONSULT TO PHYSICAL THERAPY Kian Singleton APRN.HOSPICE TEAM LEAD SURGERY VISIT REPORT Observed: 08/12/2018 Status: F Source: [place] 3:41 PM [facility] REPOSITORY [facility] [address] [place] [address]. [address] [place] [address] OFFICE VISIT Date of Service: 08/08/18 MR#: [id number] Acct: [id number] Name: CECELIA QUIROZ Rep #: [id number] : 1950 Provider: Will Ruiz MD Age/Sex: 68/F Location: [facility] Status: Signed Intake Intake Visit Reasons: F/U R BREAST BX 08/01/2018 DP Chief Complaint: abn mammo/US right Is patient in pain?: No Allergies No Known Allergies Allergy (Verified 08/08/18 13:33) Medications Travoprost 0.004% [Travatan-Z 0.004% Eye Drop] 1 drp EACH EYE DAILY 04/05/14 [History Confirmed 08/08/18] predniSONE tablet 30 mg PO DAILY 04/05/14 [History Confirmed 08/08/18] Omeprazole [Prilosec] 40 mg PO DAILY 10/11/16 [History Confirmed 08/08/18] Metoprolol Tartrate [Lopressor (beta matilde)] 25 mg PO BID 02/24/17 [History Confirmed 08/08/18] ascorbate calcium 500 mg tablet 500 mg PO DAILY 07/25/18 [History Confirmed 08/08/18] denosumab 60 mg/mL subcutaneous syringe 60 mg SC [id number] 07/25/18 [History Confirmed 08/08/18] folic acid 800 mcg tablet 0.8 mg PO DAILY 07/25/18 [History Confirmed 08/08/18] Subjective Details: Patient is status post an ultrasound-guided right needle core biopsy of her breast completed on 08/01/2018. This showed focal nonproliferative fibrocystic changes with associated microcalcifications, there was focal involution changes, there was no evidence of malignancy. She has not been complaining of any pain or discharge from her biopsy site per Objective Details: Biopsy site is clean there is minimal bruising identified. There is no signs of cellulitis. Assessment AND Plan Problems 1. Abnormal mammogram of right breast R92.8 Plan Patient will need a 6-month follow-up and mammogram in a ultrasound of the right breast in 6 months from the date of her last mammogram and ultrasound. Coding Level of Care Code Off vis,est,level 2 Diagnoses Abnormal mammogram of right breast R92.8 08/12/18 1541 <Electronically signed by Will Ruiz MD> Date Will Ruiz MD Cosigner Signature: Date (if applicable) CC: Andrzej Rowan MD; Miah Aguayo DO OPERATIVE REPORT Observed: 08/01/2018 Status: F Source: [place] 10:02 AM [facility] REPOSITORY [facility] Medical Records Department [address] [place] [address] Operative Report 08/01/18 0957 MR#: [id number] Acct: [id number] Name: CECELIA QUIROZ Rep #: [id number] : 1950 68 From: Will Ruiz MD [...] BREAST BIOPSY Observed: 08/01/2018 Status: F Source: [place] (CHOOSE SITE) 8:00 AM [facility] REPOSITORY Patient: CECELIA QUIROZ : 1950 (68/) Acct Num: [id number] Phys: Will Ruiz MD Unit Num: [id number] Loc: OPUS Specimen: [id number] Received: 08/01/1848 Spec Type: BREAST BX TISSUES 1 TISSUES: Right breast, NOS GROSS DESCRIPTION Received in fixative is one container labeled with the patient's name and designated right breast. The specimen consists of multiple elongated fragments of palomares-yellow fibroadipose tissue that in aggregate measure 1.5 x 1 x 0.1 cm. The entire specimen is submitted in one cassette. / KRISTIE:lili 08/01/18 TC:5 CPT: 37215 HEADER OPERATION: Right breast biopsy, ultrasound-guided PRE-OP DIAGNOSIS: Right breast nodule TISSUE SUBMITTED: Right breast ISCHEMIC TIME: 60 seconds FIXATION TIME: 11.5 hours MICROSCOPIC DESCRIPTION Slides are reviewed. MICROSCOPIC DIAGNOSIS Right breast nodule, ultrasound-guided core biopsy: Focal nonproliferative fibrocystic change with associated microcalcifications. Focal involutional change. No evidence of malignancy. AM:lili 08/02/18 Signed Michele Pedroza DO 08/02/18 <signature on file> Performed By: #### PBRBX #### [facility] [address] [place], [address] US BREAST BIOPSY Observed: 08/01/2018 Status: F Source: [place] 1ST [place] 7:29 AM [facility] REPOSITORY [facility] Imaging Services [address] [place] [address] US Breast Biopsy 1st Lesion MR#: [id number] Acct: [id number] Name: CECELIA QUIROZ Rep #: [id number] : 1950 F 68 From: Franky aGrdner MD PCP: Miah Aguayo DO Status: REG CLI Study: US Breast Biopsy 1st Lesion Date of Exam: 08/01/18 Exam# [id number] Ordering Dr: Will Ruiz MD STUDY: ULTRASOUND [...] Franky Gardner MD at 8:36 EST Tel [phone], Service support , CC: Will Ruiz MD; Miah Aguayo DO Web Developer Programmer: Signed SURGERY VISIT REPORT Observed: 07/29/2018 Status: F Source: [place] 2:30 PM [facility] REPOSITORY [facility] [address] [place] [address]. [address] [place] [address] OFFICE VISIT Date of Service: 07/29/18 MR#: [id number] Acct: [id number] Name: CECELIA QUIROZ Rep #: [id number] : 1950 Provider: Will Ruiz MD Age/Sex: 68/F Location: [facility] Status: Signed Intake Intake Visit Reasons: US Guided Handheld Mammotome BX Rt Breast Emergency Planner Required: No Is patient in pain?: No [...] 60 mg/mL subcutaneous syringe 60 mg SC [id number] 07/25/18 [History Confirmed 07/29/18] folic acid 800 [...] Will Ruiz MD> Date Will Ruiz MD [facility] Signature: Date (if applicable) CC: SURGERY VISIT REPORT Observed: 07/25/2018 Status: F Source: [place] 2:39 PM [facility] REPOSITORY [facility] [address] [place] [address] OFFICE VISIT Date of Service: 07/25/18 MR#: [id number] Acct: [id number] Name: CECELIA QUIROZ Rep #: [id number] : 1950 Provider: Will Ruiz MD Age/Sex: 68/F Location: [facility] Status: Signed Intake Vital Signs07/25/18 Height 5 ft 5 in 07/25/18 Weight: 150 lb 2 oz 07/25/18 Body Mass Index (BMI) 25.0 07/25/18 Blood Pressure 144/80 H Intake Visit Reasons: R Breast Birads 4 Mammo 07/19 US 07/22 Chief Complaint: abn mammo/US right Emergency Planner Required: No Is patient in pain?: No [...] 60 mg/mL subcutaneous syringe 60 mg SC [id number] 07/25/18 [History Confirmed 07/25/18] folic acid 800 [...] has had her mammogram and ultrasound completed [facility] on 07/22/2018. In the right [...] blood clots Neuro Neurologic: No weakness Exam [facility] Head: normal to inspection, normocephalic, atraumatic Mouth: [...] Status: F Source: [place] 8:55 AM [facility] REPOSITORY [facility] Imaging Services [address] [place] [address] Breast Limited Unilateral MR#: [id number] Acct: [id number] Name: CECELIA QUIROZ Rep #: [id number] : 1950 F 68 From: Franky Gardner MD PCP: Miah Aguayo DO Status: REG CLI Study: Breast Limited Unilateral Date of Exam: 07/22/18 Exam# [id number] Ordering Dr: Andrzej Rowan MD STUDY: ULTRASOUND [...] Franky Gardner MD at 11:24 EST Tel [phone], Service support , CC: Andrzej Rowan MD; Miah Aguayo DO Web Developer Programmer: Signed SCREENING MAMM (CAD), Observed: 07/19/2018 Status: F Source: [place] 9:25 AM [facility] REPOSITORY [facility] Imaging Services [address] [place] [address] SCREENING MAMM (CAD), BILAT MR#: [id number] Acct: [id number] Name: CECELIA QUIROZ Rep #: [id number] : 1950 F 68 From: Franky Gardner MD PCP: Miah Aguayo DO Status: REG CLI Study: SCREENING MAMM (CAD), BILAT Date of Exam: 07/19/18 Exam# [id number] Ordering Dr: Andrzej Rowan MD MAMMOGRAPHY - [...] delay biopsy of a clinically suspicious abnormality. [id number] Electronically Signed: Franky Gardner MD at 10:20 EST Tel [phone], Service support , CC: Andrzej Rowan MD; Miah Aguayo DO Web Developer Programmer: Signed CBC AND DIFFERENTIAL Collected: 07/03/2018 Status: F Source: [place] 11:41 AM [facility] [place] REPOSITORY TYPE CODE TESTS RESULT OUT OF [...] k/uL Abs Lymph 1.98 LAB AMONO % [place]% 4.4 LAB AAMONO <0.87 k/uL Abs [place] 0.69 LAB AEOS % Eosin% 0.1 LAB AAEOS <0.46 k/uL Abs Eosin <0.03 LAB ABASO % Baso% 0.4 LAB AABASO <0.11 k/uL Abs Baso 0.06 LAB AUNRBC 0 /100 WBC NRBCs 0.0 LAB ABNRBC <0.01 k/uL Absolute nRBC <0.01 LAB DTYP DTYPE Auto Diff Performed By: #### CBCDIF, ALB, ALT, AST, CRET1 #### [facility] [address] [address] ALBUMIN Collected: 07/03/2018 Status: F Source: [place] 11:41 AM [facility] REPOSITORY TYPE CODE TESTS RESULT OUT OF REFERENCE UNITS RANGE LAB ALB 3.9-4.9 g/dL Albumin 4.2 Performed By: #### CBCDIF, ALB, ALT, AST, CRET1 #### [facility] [address] [place] [address] ALT Collected: 07/03/2018 Status: F Source: [place] 11:41 AM [facility] REPOSITORY TYPE CODE TESTS RESULT OUT OF RANGE REFERENCE UNITS LAB ALT 7-38 U/L ALT 13 Performed By: #### CBCDIF, ALB, ALT, AST, CRET1 #### [place] [address] AST Collected: 07/03/2018 Status: F Source: [place] 11:41 AM [facility] REPOSITORY TYPE CODE TESTS RESULT OUT OF RANGE REFERENCE UNITS LAB AST 13-35 U/L AST 18 Performed By: #### CBCDIF, ALB, ALT, AST, CRET1 #### [place] [address] CREATININE Collected: 07/03/2018 Status: F Source: [place] 11:41 [facility] REPOSITORY TYPE CODE TESTS RESULT [...] #### CBCDIF, ALB, ALT, AST, CRET1 #### [facility] [address] [place], [place] [address] CNOV Observed: 06/14/2018 Status: COMPLETED Source: [place] 8:40 AM [facility] REPOSITORY Office Visit (RHECARON) CECELIA QUIROZ ([id number]) 1950 F Date Time Provider Department 06/14/18 8:40 AM PALMA LOVETT During your visit today, we recorded the following information about you: Temperature Pulse Blood pressure Weight 97.9 degrees 82/minute 136/68 67.6 kg Height 1.664 m Palma Lovett APRN.HOSPICE TEAM LEAD 06/14/2018 1:47 PM Signed Dx: GCA (temporal [...] Glaucoma PUD - d/t NSAIDs Cataracts bilaterally OBSTETRICAL/ACCOUNTANT CERTIFIED PUBLIC HISTORY LMP: 1982 PAST SURGICAL HISTORY Past [...] Number of children: 2 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 If she is unable [...] EGD) -avoid NSAIDs 5. MICROSCOPIC HEMATURIA -sees prop and scenery maker Dr. Jolynn Stevens ([place]), workup negative per patient 6. GENERAL HEALTH [...] your next visit. Referring Provider: VALERIE SÁNCHEZ [[id number]] Allergies As of Date: 06/14/2018 (No Known [...] [G56.00] 10/29/2007 HEMATURIA [599.7] 10/29/2007 More... 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 TEAR MED MENISC KNEE-CURRENT [QHG7538] INVALID FOR* Cellulitis and Abscess of Face [L03.211, L02.01]INVALID FOR* Adjustment Disorder with Anxiety [F43.22] INVALID FOR* More... Routine general medical examination at a [facility]*INVALID FOR*11/27/2011 Priority: Moderate Class: Chronic More... 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] INVALID FOR* Infected sebaceous cyst [L72.3, L08.9] INVALID FOR* Cephalalgia [R51] INVALID FOR* Family history of brain aneurysm [Z82.49] INVALID FOR* Giant cell arteritis with polymyalgia rheumatic*INVALID FOR* skilled nursing systemic steroid user [Z79.52] INVALID FOR* Actinic [...] History Recorded Encounter Status:Closed by PALMA LOVETT HOSPICE TEAM LEAD on 06/14/18 PROGRESS Observed: 06/13/2018 Status: COMPLETED Source: [place] 11:56 AM [facility] [place] REPOSITORY HNO ID: [id number] Author: Palma Lovett Service: (none) Author Type: [...] Glaucoma PUD - d/t NSAIDs Cataracts bilaterally OBSTETRICAL/ACCOUNTANT CERTIFIED PUBLIC HISTORY LMP: 1982 PAST SURGICAL HISTORY Past [...] Number of children: 2 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 If she is unable [...] EGD) -avoid NSAIDs 5. MICROSCOPIC HEMATURIA -sees prop and scenery maker Dr. Jolynn Stevens ([place]), workup negative per patient 6. GENERAL HEALTH MAINTENANCE -influenza vaccination given May 2018 -she will follow up with her PCP for her general health issues FU 3 mon, sooner if needed Palma Lovett APRN.HOSPICE TEAM LEAD PAP IG HPV HR Collected: 06/07/2018 Status: F Source: [place] 12:00 PM [facility] REPOSITORY Order Comment: CYTOLOGY INFORMATION: - CLINICAL INFORMATION: HYSTERECTOMY - DATE LMP/MENOPAUSE: - COLLECTION VIAL: Thin Prep Vial - ACCOUNTANT CERTIFIED PUBLIC SOURCE: VAGINAL - COLLECTION TECHNIQUE: SPATULA ONLY Specimen Comment: [id number] Specimen Comment: Source.............Vagina Specimen Comment: LMP / [...] Normal PERFORM Comment Result Comment: Bj Singer, School Psychological Examiner (ASCP) LAB L7400.1700 . Normal SIGN Comment [...] types (16/18/31/33/35/39/45/ 51/52/56/58/59/66/68) without differentiation. Performed at: WB - [facility] [address] [id number] Insurance Verification Specialist: Shari Cancino MD, Phone: [phone] Performed at: =G - [facility] [address] [id number] Insurance Verification Specialist: Shari Cancino MD, Phone: [phone] Performed By: #### L7400.0377 #### [facility] (refer to report for specific site) refer to report for address and phone number X-LINK N-TELOPEPTIDE Collected: 05/11/2018 Status: F Source: [place] 9:14 AM [facility] REPOSITORY TYPE CODE TESTS RESULT OUT OF RANGE REFERENCE UNITS LAB UNTX 14.4-75.0 nM/mM Creat X-Link 26.0 N-telopeptid e Performed By: #### UNTX2 #### [facility] [place] [facility] [address] [place] [address] CBC AND DIFFERENTIAL Collected: 05/09/2018 Status: F Source: [place] 5:54 PM [facility] REPOSITORY TYPE CODE TESTS RESULT OUT OF [...] k/uL Abs Lymph 2.72 LAB AMONO % [place]% 4.8 LAB AAMONO <0.87 k/uL Abs [place] 0.72 LAB AEOS % Eosin% 0.0 LAB AAEOS <0.46 k/uL Abs Eosin <0.03 LAB ABASO % Baso% 0.2 LAB AABASO <0.11 k/uL Abs Baso 0.03 LAB AUNRBC 0 /100 WBC NRBCs 0.0 LAB ABNRBC <0.01 k/uL Absolute nRBC <0.01 LAB DTYP DTYPE Auto Diff Performed By: #### CBCDIF, WSR, CA, CRET1, CRP, HFP, VITD #### [facility] [address] SED RATE WESTERGREN Collected: 05/09/2018 Status: F Source: [place] 5:54 PM [facility] REPOSITORY TYPE CODE TESTS RESULT OUT OF REFERENCE UNITS RANGE LAB WSR 0-20 mm/hr Sed Rate High Westergren 49 Performed By: #### CBCDIF, WSR, CA, CRET1, CRP, HFP, VITD #### [facility] [address] [place] [address] CALCIUM, TOTAL Collected: 05/09/2018 Status: F Source: [place] 5:54 PM [facility] REPOSITORY TYPE CODE TESTS RESULT OUT OF RANGE REFERENCE UNITS LAB CA 8.5-10.2 mg/dL Calcium, 9.6 Total Performed By: #### CBCDIF, WSR, CA, CRET1, CRP, HFP, VITD #### [facility] [address] [place] [address] CREATININE Collected: 05/09/2018 Status: F Source: [place] 5:54 PM [facility] REPOSITORY TYPE CODE TESTS RESULT OUT OF [...] WSR, CA, CRET1, CRP, HFP, VITD #### [facility] [address] [id number] C-REACTIVE PROTEIN Collected: 05/09/2018 Status: F Source: [place] 5:54 [facility] RE[facility] TYPE CODE TESTS RESULT OUT OF REFERENCE UNITS RANGE LAB CRP <0.9 mg/dL C-Reactive 0.8 Protein Performed By: #### CBCDIF, WSR, CA, CRET1, CRP, HFP, VITD #### [facility] [address], [place] [address] HEPATIC FUNCTN PANEL Collected: 05/09/2018 Status: F Source: [place] 5:54 [facility] REPOSITORY TYPE CODE TESTS RESULT OUT OF [...] WSR, CA, CRET1, CRP, HFP, VITD #### [facility] [address] [place], [place] [address] VITAMIN D 25 HYDROXY Collected: 05/09/2018 Status: F Source: [place] 5:[address] [place] [address] REPOSITORY TYPE CODE TESTS RESULT OUT OF REFERENCE UNITS RANGE LAB VITD 31.0-80.0 ng/mL Low Vitamin D 25 26.5 Hydroxy Result Comment: Classification of 25 [place] Vitamin D status: Insufficiency/Moderate Deficiency: < or = 30 ng/mL Sufficiency/Optimal Levels: 31 to 80 ng/mL Toxicity: > 100 ng/mL Test performed by chemiluminescent immunoassay. Performed By: #### CBCDIF, WSR, CA, CRET1, CRP, HFP, VITD #### [facility] [address] [place], [place] [address] CNOV Observed: 05/09/2018 Status: COMPLETED Source: [place] 4:20 PM [facility] REPOSITORY Office Visit (MIYA) CECELIA QUIROZ ([id number]) 1950 F Date Time Provider Department 05/09/18 [...] often. 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 (see scanned document in EMR) [...] daily calcium intake (ideally by diet) is 5514-6191 mg per day. If she is unable [...] EGD) -avoid NSAIDs 5. MICROSCOPIC HEMATURIA -sees prop and scenery maker Dr. Jolynn Stevens ([place]), workup negative per patient 6. GENERAL HEALTH [...] is needed. You can go to any [facility] facility to have the labs drawn since the orders are in the system. Please ensure that your daily calcium intake (ideally by diet) is 1617-9212 mg per day. 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] laborer marine terminal systemic steroid user [Z79.52] Nodule of finger of right hand [R22.31] Order(s):C-REACTIVE PROTEIN (CRP) [SQCRP] Order #: [id number] STANDING SED RATE WESTERGREN [SQWSR] Order #: [id number] STANDING CROSS-LINK N-TELOPEP [SQUNTX2] Order #: [id number] FUTURE VITAMIN D 25 HYDROXY [SQVITD] Order #: [id number] FUTURE CREATININE BLD [SQCRET] Order #: [id number] FUTURE CALCIUM TOTAL BLD [SQCA] Order #: [id number] FUTURE US HAND/FINGER RT [4736126] Order #: [id number] FUTURE CBC + DIFF [SQCBCDIF] Order #: [id number] FUTURE HEPATIC FUNCTION PNL [SQHFP] Order #: [id number] FUTURE Prescriptions as of 05/09/2018 Sig: X [...] Coleen Segura Ma 05/09/2018 4:46 PM >> PAULINO LINDSEY COLEEN SunMay 09, 2018 4:46 PM Taking 10mg daily PREDNISONE 20 MG TABLET >> Coleen Segura Ma 05/09/2018 4:46 PM >> PAULINO LINDSEY COLEEN [facility] May 09, 2018 4:46 PM Taking 10mg daily PREDNISONE 10 MG TABLET >> Coleen Segura Ma 05/09/2018 4:45 PM >> PAULINO LINDSEY COLEEN Shelli May 09, 2018 4:45 PM Taking 10 mg daily Problem List As Of Date 05/09/2018 Noted Resolved Disorder of bone and cartilage [M89.9, M94.9] 03/05/2016 More... ALLERGIC RHINITIS NOS [J30.9] 10/29/2007 MVP (mitral valve prolapse) [I34.1] More... TOBACCO USE DISORDER [F17.200] Diverticulitis of large intestine without perfo*INVALID FOR* More... CARPAL TUNNEL SYNDROME [G56.00] 10/29/2007 HEMATURIA [599.7] 10/29/2007 More... 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 TEAR MED MENISC KNEE-CURRENT [YYX0433] INVALID FOR* Cellulitis and Abscess of Face [...] Giant cell arteritis with polymyalgia rheumatic*INVALID FOR* laborer marine terminal systemic steroid user [Z79.52] INVALID FOR* Actinic [...] is needed. You can go to any [facility] facility to have the labs drawn since the orders are in the system. Please ensure that your daily calcium intake (ideally by diet) is 8322-0760 mg per day. If you are unable [...] 05/26/18 PROGRESS Observed: 05/08/2018 Status: COMPLETED Source: [place] 6:50 PM [facility] [place] REPOSITORY HNO ID: [id number] Author: Valerie Sánchez Service: (none) Author Type: [...] often. 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 If she is unable [...] EGD) -avoid NSAIDs 5. MICROSCOPIC HEMATURIA -sees prop and scenery maker Dr. Jolynn Stevens ([place]), workup negative per patient 6. GENERAL HEALTH MAINTENANCE -influenza vaccination given May 21, 2017 -she will follow up with her PCP for her general health issues FU 4 -5mon, sooner if needed SED RATE WESTERGREN Collected: 05/04/2018 Status: F Source: [place] 10:40 AM [facility] REPOSITORY TYPE CODE TESTS RESULT OUT OF REFERENCE UNITS RANGE LAB WSR 0-20 mm/hr Sed Rate High Westergren 45 Performed By: #### WSR, CRP #### [facility] [address] [place], [place] [address] C-REACTIVE PROTEIN Collected: 05/04/2018 Status: F Source: [place] 10:40 AM [facility] REPOSITORY TYPE CODE TESTS RESULT OUT OF REFERENCE UNITS RANGE LAB CRP <0.9 mg/dL C-Reactive 0.7 Protein Performed By: #### WSR, CRP #### [facility] [address] [place], [place] [id number] BD DXA - AXIAL Observed: 01/28/2018 Status: F Source: [place] 8:33 AM [facility] REPOSITORY * * *Final Report* * * DATE OF EXAM: Jan 28 2018 8:33AM [facility] 0804 - BD DXA - AXIAL SKELETON / PROCEDURE REASON: multiple diagnoses * * * * Physician Interpretation * * * * PROCEDURE: BD DXA - AXIAL SKELETON INDICATION: Giant cell arteritis with polymyalgia rheumatica Age-related osteoporosis without current pathological fracture laborer marine terminal (current) use of systemic steroids TECHNIQUE: Low [...] Osteoporosis Less than or equal to -2.5 Web Developer Programmer: [facility] HOSPITALJaya Transcribe Date/Time: Jan 28 2018 8:53A Dictated by : LUCILA HASKINS MD This examination was interpreted and the report reviewed and electronically signed by: LUCILA HASKINS MD on Jan 28 2018 8:55AM EST [id number] Observed: 01/28/2018 Status: COMPLETED Source: [place] 8:09 AM [facility] REPOSITORY HNO ID: [id number] Author: Irene Fowler Rt Service: (none) Author Type: (none) Type: Progress Notes Filed: 01/28/2018 8:32 AM Note Text: Cecelia Quiroz January 28, 2018 [id number] Double identification: Patient identified by name and Bone Density Completed. Irene Fowler Rt patient told of radiation jk 8:30 am not PROGRESS Observed: 01/18/2018 Status: COMPLETED Source: [place] 8:01 AM [facility] REPOSITORY HNO ID: [id number] Author: Miah Olmstead Service: (none) Author Type: Physician Type: Progress Notes Filed: 01/18/2018 5:30 PM Note Text: CC: Cecelia Quiroz is a 67 year old female who presents to the office for physical HPI: PMR, giant cell arteritis, overall is stable, still intermittent flare ups, seeing Dr. 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 - entire workup negative. No longer happening. - Iron deficiency anemia, unspecified ? related to UGI source from NSAID's - PMR (polymyalgia rheumatica) ([facility]) - Raynaud's disease /phenomenon - Steroid long-term [...] - Coronary Artery Disease Father Hx of [place], age 71 - Cancer Sister lung CA [...] with the plan. Miah Olmstead DO [address] [place] [address] CNOV Observed: 01/18/2018 Status: COMPLETED Source: [place] 7:40 AM [facility] REPOSITORY Office Visit (FAMPWS) CECELIA QUIROZ ([id number]) 1950 F Date Time Provider Department 01/18/18 7:40 AM MIAH OLMSTEAD During your visit today, we recorded the following information about you: Temperature Pulse Respiration Blood pressure 97.6 degrees 60/minute 16/minute 120/60 Weight Height 65.3 kg 1.664 m Miah Allison Olmstead, 01/18/2018 5:30 PM Signed CC: Cecelia Quiroz is a 67 year old female who presents to the office for physical HPI: PMR, giant cell arteritis, overall is stable, still intermittent flare ups, seeing Dr. Sánchez for Non Destructive Tester care, no recent rx changes Mood, stable, [...] hemorrhage)(562.11) 2003 - GCA (giant cell arteritis) ([facility]) bx negative - Glaucoma - Hematuria 1999 [...] - Coronary Artery Disease Father Hx of [place], age 71 - Cancer Sister lung CA [...] treated in office today with cryotherapy Miah Olmstead, DO To ER if develops chest pain, shortness of breath, or severe worsening of symptoms. Discussed risks, benefits, alternatives, and potential side effects of medications. Patient expressed understanding and agreed with the plan. Miah Olmstead DO [address] [place] [address] Referring Provider: MIAH OLMSTEAD [[id number]] Allergies As of Date: 01/18/2018 (No Known [...] for 1 dose.Disp: 0.5 mLRfl: 0 ECHO [371288] Order #: [id number]: 1 FUTURE ECG COMPLETE W INTERPRETATION [ECG01] Order #: [id number] FUTURE amoxicillin-clavulanic acid (AUGMENTIN) 875-125 mg per [...] this encounter BENZONATATE 100 MG CAPSULE >> Ama Solorzano LPN 01/18/2018 7:50 AM >> AMA SOLORZANO LPN SunJan 18, 2018 7:50 AM Finished GABAPENTIN 300 MG CAPSULE >> Ama Solorzano LPN 01/18/2018 7:50 AM >> AMA SOLORZANO LPN SunJan 18, 2018 7:50 AM Finished FUROSEMIDE 40 MG TABLET >> Ama Solorzano LPN 01/18/2018 7:50 AM >> AMA SOLORZANO LPN SunJan 18, 2018 7:50 AM Finished Problem List As Of Date 01/18/2018 Noted Resolved Disorder of bone and cartilage [M89.9, M94.9] 03/05/2016 More... ALLERGIC RHINITIS NOS [J30.9] 10/29/2007 MVP (mitral valve prolapse) [I34.1] More... TOBACCO USE DISORDER [F17.200] Diverticulitis of large intestine without perfo*INVALID FOR* More... CARPAL TUNNEL SYNDROME [G56.00] 10/29/2007 HEMATURIA [599.7] 10/29/2007 More... 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 TEAR MED MENISC KNEE-CURRENT [MOZ4714] INVALID FOR* Cellulitis and Abscess of Face [...] Giant cell arteritis with polymyalgia rheumatic*INVALID FOR* skilled nursing systemic steroid user [Z79.52] INVALID FOR* Actinic [...] PANEL, BASIC Collected: 01/12/2018 Status: F Source: [place] 8:05 AM [facility] REPOSITORY TYPE CODE TESTS RESULT [...] Desk Reference: National Heart, Lung, and Blood [place]. National Institutes of Health. 2001: NIH Publication No. 01-3305. 2. An International Atherosclerosis Society position paper: global recommendations for the management of dyslipidemia: executive summary, Atherosclerosis. 2014: 232(2):410-413. Performed By: #### LIPB #### [facility] [address] [place] [address] CNPTOUTREACH Observed: 01/01/2018 Status: COMPLETED Source: [place] 12:00 AM [facility] REPOSITORY Patient Outreach (FAMPST) CECELIA QUIROZ ([id number]) 1950 F Date Time Provider Department 01/01/18 MIAH OLMSTEAD During your visit today, we recorded the following information about you: Allergies As of Date: 01/01/2018 (No Known Allergies) Date Reviewed: 12/24/2017 Reviewed by: Coleen Segura Ma - Fully Assessed Visit Diagnosis:Medication management [Z79.899] Order(s):LIPID PANEL BASIC [SQLIPB] Order #: [id number] FUTURE Prescriptions as of 01/01/2018 Sig: ALENDRONATE [...] [G56.00] 10/29/2007 HEMATURIA [599.7] 10/29/2007 More... 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 TEAR MED MENISC KNEE-CURRENT [MCU0340] INVALID FOR* Cellulitis and Abscess of Face [...] Giant cell arteritis with polymyalgia rheumatic*INVALID FOR* skilled nursing systemic steroid user [Z79.52] INVALID FOR* Encounter Status:Closed by DSG TechnologiesUSER on 05/31/18 SED RATE WESTERGREN Collected: 12/24/2017 Status: F Source: [place] 5:34 PM [facility] REPOSITORY TYPE CODE TESTS RESULT OUT OF REFERENCE UNITS RANGE LAB WSR 0-20 mm/hr Sed Rate High Westergren 40 Performed By: #### WSR, CRP #### [facility] [address] [place] [id number] C-REACTIVE PROTEIN Collected: 12/24/2017 Status: F Source: [place] 5:34 PM [facility] REPOSITORY TYPE CODE TESTS RESULT OUT OF REFERENCE UNITS RANGE LAB CRP <0.9 mg/dL High C-Reactive 1.1 Protein Performed By: #### WSR, CRP #### [facility] [address] [place] [id number] CNOV Observed: 12/24/2017 Status: COMPLETED Source: [place] 4:20 PM [facility] REPOSITORY Office Visit (RHEUST) CECELIA QUIROZ ([id number]) 1950 F Date Time Provider Department 12/24/17 [...] has sporadic sharp pain in the left yazidi that last a couple of hours . 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 (see scanned document in EMR) [...] EGD) -avoid NSAIDs 5. MICROSCOPIC HEMATURIA -sees prop and scenery maker Dr. Jolynn Stevens ([place]), workup negative per patient 6. GENERAL HEALTH [...] is needed. You can go to any [facility] facility to have the labs drawn since [...] usual activities immediately. 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 You can go to any [facility] facility to have the labs drawn since [...] 12/24/17 PROGRESS Observed: 12/23/2017 Status: COMPLETED Source: [place] 4:52 PM [facility] REPOSITORY HNO ID: [id number] Author: Valerie Sánchez Service: (none) Author Type: [...] has sporadic sharp pain in the left yazidi that last a couple of hours . 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 MICROSCOPIC HEMATURIA -sees prop and scenery maker Dr. Jolynn Stevens ([place]), workup negative per patient 6. GENERAL HEALTH MAINTENANCE -influenza vaccination given May 21, 2017 -she will follow up with her PCP for her general health issues FU 4 mon, sooner if needed C-REACTIVE PROTEIN Collected: 10/19/2017 Status: F Source: [place] 3:56 PM [facility] REPOSITORY TYPE CODE TESTS RESULT OUT OF REFERENCE UNITS RANGE LAB CRP <0.9 mg/dL C-Reactive 0.3 Protein Performed By: #### CRP, WSR #### [facility] [address] [place], [place] [address] SED RATE WESTERGREN Collected: 10/19/2017 Status: F Source: [place] 3:56 PM [facility] REPOSITORY TYPE CODE TESTS RESULT OUT OF REFERENCE UNITS RANGE LAB WSR 0-20 mm/hr Sed Rate High Westergren 37 Performed By: #### CRP, WSR #### [facility] [address] [place], [place] [address] ALLERGIES ALLERGIES DATE TYPE / CODE NAME / CODE REACTION SEVERITY SOURCE 08/08/2018 Drug No Known Unknown [facility] Allergy/416 Allergies/V19775 Hospital 679977(SNOM 0388(RXNORM) Repository ED CT) Drug NO KNOWN [facility] Class/31299 ALLERGIES [place] 1003(SNOMED Repository CT) ENCOUNTERS ENCOUNTERS ADMIT/DISCHARGE ACCOUNT ADMITTING ENCOUNTER LOCATION SOURCE NUMBER CLASS 09/04/2018/09/05/19 [id number] Ambulatory [address] Repository 09/04/2018/09/05/19 [id number] Ambulatory [address] Repository 08/28/2018/08/28/19 [id number] Ambulatory [address] Repository 08/26/2018/08/27/19 [id number] Ambulatory [address] Repository 08/15/2018/08/15/20 [id number] Ambulatory [address] Repository 08/15/2018/08/16/20 [id number] Ambulatory [address] Repository 08/08/2018/08/08/20 [id number] Ambulatory BMSBuilding:B [place] [facility] Repository 08/01/2018 [id number] Ambulatory BMSBuilding:B [place] MS.CF.[facility] Repository 08/01/2018 [id number] [facility] ing:OPUS Repository 07/29/2018/07/29/20 [id number] Ambulatory BMSBuilding:B [place] 18 MS.[facility] Repository 07/25/2018/07/25/20 [id number] Ambulatory BMSBuilding:B [place] 18 [facility] Repository 07/22/2018 [id number] [facility] ing:OPUS Repository 07/19/2018 [id number] Ambulatory [facility] Hospital ing:OPBI Repository 07/03/2018/07/03/20 [id number] Ambulatory [address] Repository 06/14/2018/06/17/20 [id number] Ambulatory [address] Repository 06/07/2018 [id number] [facility] ing:LABSPEC Repository 05/10/2018 [id number] Ambulatory BMSBuilding:Jaya LEMON [facility] Repository 05/09/2018/05/09/20 [id number] Ambulatory [address] [place] Repository 05/09/2018/05/27/20 [id number] Ambulatory [address] [place] Repository 05/04/2018/05/04/20 [id number] Ambulatory [address] [place] Repository 01/28/2018/01/29/20 [id number] Ambulatory [address] [place] Repository 01/28/2018/01/29/20 [id number] Ambulatory [address] [place] Repository 01/18/2018/01/19/20 [id number] Ambulatory [address] [place] Repository 01/18/2018/01/22/20 [id number] Ambulatory [address] [place] Repository 01/12/2018/01/13/20 [id number] Ambulatory [address] [place] Repository 12/24/2017 [id number] Ambulatory [facility] [place] Repository 12/24/2017/12/26/19 [id number] Ambulatory [address] [place] Repository 10/19/2017/10/20/19 [id number] Ambulatory [address] Repository 10/01/2017 [id number] [facility] ing:LAB.FUTUR Repository E PAYERS PAYERS ENCOUNTER GUARANTOR PAYER SUBSCRIBER SOURCE 08/08/2018 CECELIA E Primary CECELIA E [place] [id number] S Insurance:MEDICARE DAWSONDOB: [facility] BERENICE ULLOA, PART A BPolicy [id number] [facility] [address]Tzh: Number: Repository [id number] () Date:2018-08-01 08/08/2018 Secondary CECELIA E [place] Insurance:MUTUAL OF DAWSONDOB: Critical access hospital Number: [id number] Hospital [id number] Repository Date:8990-18-02USJREP OF JEANINE [place] [address]AA: 08/08/2018 Tertiary NOT GIVENUNK [place] Insurance:SELF PAY [facility] Number: Effective Repository Date:2018-08-07 08/01/2018 CECELIA E Primary CECELIA E [place] [id number] S Insurance:MEDICARE DAWSONDOB: [facility] PART A [facility] [id number] Valley Hospital [address]Hcy: Number: Repository [id number] (HP) Date:2018-07-29 08/01/2018 Secondary CECELIA E [place] Insurance:MUTUAL OF DAWSONDOB: Critical access hospital Number: [id number] Hospital [id number] Repository Date:7979-45-46CPBNEN OF [place] [address]OW: 08/01/2018 Tertiary NOT GIVENUNK [place] Insurance:SELF PAY [facility] Number: Effective Repository Date:2018-08-01 08/01/2018 CECELIA E Primary CECELIA E [place] [id number] S Insurance:MEDICARE DAWSONDOB: [facility] LEONELRAFYE, PART A [facility] [id number] Valley Hospital [address]Ejt: Number: Repository [id number] (HP) Date:2018-07-29 08/01/2018 Secondary CECELIA E [place] Insurance:MUTUAL OF DAWSONDOB: Critical access hospital Number: [id number] Hospital [id number] Repository Date:8561-71-87MJYTRG OF [place] [address]LZ: 08/01/2018 Tertiary NOT GIVENUNK [place] Insurance:SELF PAY [facility] Number: Effective Repository Date:2018-07-29 07/29/2018 CECELIA E Primary CECELIA E [place] [id number] S Insurance:MEDICARE DAWSONDOB: [facility] BERENICE COTAE, PART A [facility] [id number] Valley Hospital [address]Mvb: Number: Repository [id number] (HP) Date:2018-07-25 07/29/2018 Secondary CECELIA E [place] Insurance:MUTUAL OF DAWSONDOB: Critical access hospital Number: [id number] Hospital [id number] Repository Date:5157-29-87MLNCLM [place] [address]AT: 07/29/2018 Tertiary NOT GIVENUNK [place] Insurance:SELF PAY [facility] Number: Effective Repository Date:2018-07-26 07/25/2018 CECELIA E Primary CECELIA E Vincent [id number] S Insurance:MEDICARE DAWSONDOB: [facility] [id number] Valley Hospital [address]Vok: Number: Repository [id number] (HP) Date:2018-07-23 07/25/2018 Secondary CECELIA E [place] Insurance:MUTUAL OF DAWSONDOB: Critical access hospital Number: [id number] Hospital [id number] Repository Date:2366-26-02SDPCXI [place] [address]QS: 07/25/2018 Tertiary NOT GIVENUNK [place] Insurance:SELF PAY [facility] Number: Effective Repository Date:2018-07-23 07/22/2018 CECELIA E Primary CECELIA E [place] [id number] S Insurance:MEDICARE DAWSONDOB[facility] [id number] Valley Hospital [address]Zvf: Number: Repository [id number] (HP) Date:2018-07-19 07/22/2018 Secondary CECELIA E [place] Insurance:MUTUAL OF DAWSONDOB: Critical access hospital Number: [id number] Hospital [id number] Repository Date:1628-31-97TLXIAT [place] [address]BV: 07/22/2018 Tertiary NOT GIVENUNK [place] Insurance:SELF PAY [facility] Number: Effective Repository Date:2018-07-19 07/19/2018 CECELIA E Primary CECELIA E [place] [id number] S Insurance:MEDICARE DAWSONDOB: [facility] Semaje, PART A [facility] [id number] Valley Hospital [address]Vfi: Number: Repository [id number] (HP) Date:2018-06-07 07/19/2018 Secondary CECELIA E Vincent Insurance:MUTUAL OF DAWSONDOB: Critical access hospital Number: [id number] Hospital [id number] Repository Date:9552-26-74OFYMHA OF [place], [place] [address]GA: 07/19/2018 Tertiary NOT GIVENUNK Vincent Insurance:SELF PAY [facility] Number: Effective Repository Date:2018-06-07 06/07/2018 Cecelia E Primary Cecelia E [place] [id number] S Insurance:MEDICARE DawsonDOB: [facility] [id number] Valley Hospital [address]Smi: Number: Repository [id number] (HP) Date:2018-06-07 06/07/2018 Secondary Cecelia E [place] Insurance:MUTUAL OF DawsonDOB: Critical access hospital Number: [id number] Hospital [id number] Repository Date:3033-46-30SMXFPQ OF [place], [place] [address]ZH: 06/07/2018 Tertiary NOT GIVENUNK [place] Insurance:SELF PAY [facility] Number: Effective Repository Date:2018-06-07 05/10/2018 Cecelia E Primary Cecelia E Vincent [id number] S Insurance:MEDICARE DawsonDOB[facility] [id number] Valley Hospital [address]Eqr: Number: Repository [id number] () Date:2018-05-02 05/10/2018 Secondary Cecelia E [place] Insurance:MUTUAL OF DawsonDOB: Critical access hospital Number: [id number] Hospital [id number] Repository Date:8749-80-52STBABY [place], [place] [address]AU: 05/10/2018 Tertiary NOT GIVENUNK [place] Insurance:SELF PAY [facility] Number: Effective Repository Date:2018-05-02 10/01/2017 Cecelia E Primary Cecelia E Vincent [id number] S Insurance:MEDICARE DawsonDOB: [facility], PART A BPolic [id number] [place] [address]Cik: Number: Repository [id number] () Date:2017-10-01 10/01/2017 Secondary Cecelia E [place] Insurance:MUTUAL OF [facility] hospital Number: [id number] Hospital [id number] Repository Date:1327-49-32WSLPUHFLATONIA, [place] [address]ZU: 10/01/2017 Tertiary NOT GIVENUNK Vincent Insurance:SELF PAY [facility] Number: Effective Repository Date:2017-10-01
== END ==
PROVIDERS: Family Provider Student in an Organized Health Care Education/Training Program; PCP Student in an Organized Health Care Education/Training Program; Referring Provider Surgery; Visit Provider Surgery
DX: R92.8 Other abnormal and inconclusive findings on diagnostic imaging of breast (principal); N63.10 Unspecified lump in the right breast, unspecified quadrant
CPT/HCPCS: 19083; 88305

== ENCOUNTER → 2019-01-31 09:15 | Outpatient (CLI) | payer MEDICARE, OTHER, SELFPAY ==
[2018-07-29 14:30] VITALS: BMI 25.0
--- NOTE | 2019-01-31 09:18 | US_ITS ---
STUDY: ULTRASOUND BREAST - RIGHT REASON FOR EXAM: Female, 68 years old. Six-month follow-up examination for right breast biopsy. TECHNIQUE: Axial and longitudinal images of the RIGHT breast were performed with a high resolution ultrasound transducer. COMPARISON: Comparison is made with prior mammogram done earlier today as well as prior ultrasound the right breast dated July 22, 2018. FINDINGS: RIGHT Breast: There is a 4 mm x 4 mm x 3 mm hypoechoic nodular density at the 2:00 position of the breast at 1 cm from the nipple. A tissue clip marker is seen adjacent to this nodule. There is also evidence of a 6 mm x 5 mm x 4 mm hypoechoic density adjacent to the biopsied nodules most likely representing a postbiopsy hematoma. US/Breast Limited Unilateral IMPRESSION: Status post biopsy of a small nodule at the 2:00 position breast 1 cm from the nipple. Findings are also suggestive of a small hematoma at the biopsy site. ASSESSMENT CATEGORY: BIRADS Category 2: Benign. A letter regarding these results will be sent to the patient by the facility within 30 days. Electronically Signed: Franky Gardner, at 11:13 EDT , Service support ,
--- NOTE | 2019-01-31 09:18 | BI_ITS ---
MAMMOGRAPHY - UNILATERAL DIAGNOSTIC: RIGHT BREAST REASON FOR EXAM: Female, 68 years old. Six-month follow-up examination following a right breast biopsy. PERTINENT HISTORY: Non-contributory. TECHNIQUE: Digital unilateral breast kaylyn (3D mammographic acquisition) in the CC and MLO projections. 2-D mediolateral oblique (MLO) and craniocaudad (CC) views of both breasts were obtained. CAD: Full Field Digital Mammography with Computer Added Detection was performed. COMPARISON: Comparison is made with prior study dated July 19, 2018. FINDINGS: Breast Composition: The breasts are heterogeneously dense, which may obscure small masses. There are no dominant masses or suspicious calcifications. A patient marker is now seen in the superior retroareolar region of the right breast at the site of the biopsy. No new abnormality is seen. No other significant abnormalities are identified. There has been no significant change since the prior study. BI/DIAG MAMM W/CAD, UNILAT IMPRESSION: Status post biopsy of a nodular density in the superior retroareolar region of the right breast as described. One year follow-up mammogram recommended. (A) ASSESSMENT CATEGORY: BIRADS Category 2: Benign. A letter regarding these results will be sent to the patient by the facility within 30 days. Approximately 10% of breast cancers are not detected by mammography. A normal mammogram should not delay biopsy of a clinically suspicious abnormality. Electronically Signed: Franky Gardner, at 11:07 EDT , Service support ,
== END ==
PROVIDERS: Family Provider Student in an Organized Health Care Education/Training Program; PCP Student in an Organized Health Care Education/Training Program; Referring Provider Surgery; Visit Provider Surgery
DX: R92.8 Other abnormal and inconclusive findings on diagnostic imaging of breast (principal)
CPT/HCPCS: 76642; 77061; 77065; G0279

== ENCOUNTER 2019-04-23 11:02 | Emergency (ER) | payer MEDICARE, OTHER, SELFPAY ==
[2019-02-10 13:36] VITALS: BMI 25.0
[2019-04-23 11:03] VITALS: BP 143/102; PULSE 63; RESP 18; TEMP 36.6; O2SAT 98; BMI 25.9
[2019-04-23 13:04] VITALS: BP 124/66; PULSE 57; RESP 16; O2SAT 96
--- NOTE | 2019-04-23 13:29 | ED.DCSUM_ITS ---
History of Present Illness Chief Complaint: Upper Extremity Injury Informant: Patient Onset: Yesterday Current Severity: Moderate Maximum Severity: Moderate Narrative: Patient fell yesterday and was seen at [facility]. She was diagnosed with a proximal humerus fracture. She was placed in a sling and swath. She is a prescription for Percocet but not yet picked it up. Patient states she feels like the fracture is moving and is wondering if there is a different kind of splint or immobilization that can be applied. Past Medical History - Allergies and Home Meds Allergies/Adverse Reactions: Allergies No Known Allergies Allergy (Verified 04/23/19 11:07) Primary Care Physician: Miah Cottrell DO [Primary Care Provider] - Prior records reviewed: Yes Past Medical History: - - Reviewed Smoking Status: Current every day smoker - Family History Paternal Family History: Family History (Last Reviewed 02/10/19 @ 13:35 by Will Ruiz MD) Brother Cancer Sister Cancer Diabetes Father Diabetes Heart disease Myocardial infarction Mother Heart disease Family History: Reports: No pertinent history - No history of chest pain or coronary artery disease in her parents Review of Systems General: Denies: Chills, Fever ENT: Denies: Bilateral ear pain Cardiovascular: Denies: Chest pain Respiratory: Denies: Dyspnea Gastrointestinal: Denies: Abdominal pain Musculoskeletal: Reports: Extremity Pain Neurological: Denies: Parasthesia Hematologic: Denies: Easy bruising Allergy: Denies: Uticaria Physical Exam Vital Signs/Narrative: Vital Signs Temp Pulse Resp BP Pulse Ox 04/23/19 13:04 57 L 16 124/66 H 96 04/23/19 11:03 98 F 63 18 143/102 H 98 Inital Vital Signs reviewed: Yes General: Well nourished, Well developed ENT: Moist mucous membranes Neck: Supple Cardiovascular: Regular rate, Regular rhythm Respiratory: No distress, CTA bilaterally Abdomen: Soft, Nontender Extremities: - - Left arm is in a sling and swath. She is able to wiggle her fingers and has good sensation distally. She has tenderness around the right shoulder. Neurological: Alert, Oriented x3 Psychological: Normal affect Diagnostic/Tx/Re-eval - Medical Decision Making Her x-rays were reviewed from the disc the patient has with her. I was able to send an image to Dr. Jefferson. She advises treatment will likely be nonoperative. There is no other splint other than the sling and swath that she is currently wearing that will be more beneficial. Patient will follow up with Dr. Jefferson in the office. ED Disposition - Plan for ED Patient: Disposition: Home or Assisted Living Diagnosis: Left humeral fracture Instructions: FRACTURE, Upper Extremity Referrals: Polina Jefferson DO [STAFF PHYSICIAN] - 5-7 Days
[2019-04-23 13:38] VITALS: BP 142/68; PULSE 76; RESP 17; O2SAT 99
--- NOTE | 2019-04-23 13:38 | ED.RN ---
d/c pt went over home care instructions. knows to call ROXANNE lauren bragg the orthopedic doctor to follow up.
== END 2019-04-23 13:39 | disposition home or self-care (01) ==
PROVIDERS: Emergency Provider Emergency Medicine; Family Provider Student in an Organized Health Care Education/Training Program; PCP Student in an Organized Health Care Education/Training Program
DX: S42.202G Unspecified fracture of upper end of left humerus, subsequent encounter for fracture with delayed healing (principal); W19.XXXD Unspecified fall, subsequent encounter; F17.200 Nicotine dependence, unspecified, uncomplicated; Z82.49 Family history of ischemic heart disease and other diseases of the circulatory system
CPT/HCPCS: 99283

== ENCOUNTER → 2019-04-29 08:50 | Outpatient (CLI) | payer MEDICARE, OTHER, SELFPAY ==
[2019-04-29 08:47] VITALS: BMI 25.9
--- NOTE | 2019-04-29 08:52 | RAD_ITS ---
STUDY: X-RAY - LEFT ELBOW REASON FOR EXAM: Female, 69 years old. Pain. Fall. TECHNIQUE: 3 view(s) of the elbow. COMPARISON: None. FINDINGS: Normal visualized humerus, radius and ulna. Normal radiocapitellar and ulnotrochlear articulations. Small flecks of calcium along the lateral aspect of the elbow consistent with previous ulnar collateral ligament injury. RAD/Elbow min 3 Views IMPRESSION: No acute fracture or dislocation. Electronically Signed: Otf Huizar MD at 17:55 EDT , Service support ,
--- NOTE | 2019-04-29 08:52 | RAD_ITS ---
STUDY: X-RAY - LEFT SHOULDER REASON FOR EXAM: Fracture follow-up. TECHNIQUE: 2 view(s) of the shoulder. COMPARISON: None. FINDINGS: Normal glenohumeral articulation. There is mild elevation of the distal clavicle. Normal acromion. There is a nondisplaced fracture of the surgical neck of the humerus extending into the proximal diaphysis. The soft tissue structures are unremarkable. There is mild scarring in the left pulmonary apex. RAD/Shoulder min 2 Views IMPRESSION: Nondisplaced fracture of the proximal humerus. Mild elevation of the distal clavicle. Electronically Signed: Jim Daley MD at 13:34 EDT Tel , Service support ,
== END ==
PROVIDERS: Family Provider Student in an Organized Health Care Education/Training Program; PCP Student in an Organized Health Care Education/Training Program; Referring Provider Orthopaedic Surgery; Visit Provider Orthopaedic Surgery
DX: S49.92XA Unspecified injury of left shoulder and upper arm, initial encounter (principal); M25.522 Pain in left elbow
CPT/HCPCS: 73030; 73080

== ENCOUNTER → 2019-05-08 08:40 | Outpatient (CLI) | payer MEDICARE, OTHER, SELFPAY ==
[2019-04-29 08:47] VITALS: BMI 25.9
--- NOTE | 2019-05-08 08:43 | RAD_ITS ---
HISTORY:FRACTURE FRACTURE COMPARISON: Radiograph of the left shoulder obtained on April 29, 2019 FINDINGS: # of images incl. paperwork: 3 XR Humerus Min 2 Views: Left BONE AND JOINTS: There is a comminuted fracture of the surgical neck of the left humerus extending into the distal diaphysis. There is also extension to the greater tuberosity. The alignment is similar to the prior study SOFT TISSUES: Unremarkable. No radiopaque foreign body. RAD/Humerus min 2 Views IMPRESSION: Left proximal humeral fracture as discussed similar prior study at 1825 Reported and signed by: Lori Chavez DO Electronically Signed: Lori Chavez DO at 18:24 EDT Tel , Service support ,
--- NOTE | 2019-05-08 09:17 | RAD_ITS ---
HISTORY:fractured humeral head, bruising and pain in elbow fractured humeral head, bruising and pain in elbow COMPARISON: April 29, 2019 FINDINGS: # of images incl. paperwork: 3 XR Elbow Min 3 Views: Left BONE AND JOINTS: No acute fracture or subluxation. There is a small enthesophyte at the insertion of the triceps tendon on the olecranon. SOFT TISSUES: Minimal posterior soft tissue swelling overlying the olecranon No radiopaque foreign body. RAD/Elbow min 3 Views IMPRESSION: Minimal posterior soft tissue swelling at the olecranon at 1828 Reported and signed by: Lori Chavez DO Electronically Signed: Lori Chavez DO at 18:27 EDT Tel , Service support ,
== END ==
PROVIDERS: Family Provider Student in an Organized Health Care Education/Training Program; PCP Student in an Organized Health Care Education/Training Program; Referring Provider Physician Assistant; Visit Provider Physician Assistant
DX: S42.202A Unspecified fracture of upper end of left humerus, initial encounter for closed fracture (principal); M25.522 Pain in left elbow
CPT/HCPCS: 73060; 73080

== ENCOUNTER → 2019-05-12 10:41 | Outpatient (CLI) | payer MEDICARE, OTHER, SELFPAY ==
[2019-05-08 08:43] VITALS: BMI 25.9
--- NOTE | 2019-05-12 10:44 | RAD_ITS ---
STUDY: X-RAY - CERVICAL SPINE REASON FOR EXAM: Female, 69 years old. Pain TECHNIQUE: 3 view(s) of the cervical spine were obtained. COMPARISON: None FINDINGS: Normal anterior atlantoaxial articulation. Normal odontoid process. There are expected degenerative changes in the cervical spine. Normal cervical lordosis. Normal vertebral bodies and endplates. Normal disc space heights. Normal visualized intervertebral neuroforamina. The soft tissue structures are unremarkable. RAD/Cerv Spine 2 or 3 Views IMPRESSION: Unremarkable age appropriate x-ray examination of the visualized cervical spine. Electronically Signed: Mat Leon, at 17:35 EDT Tel , Service support ,
== END ==
PROVIDERS: Family Provider Student in an Organized Health Care Education/Training Program; PCP Student in an Organized Health Care Education/Training Program; Referring Provider Anesthesiology Pain Medicine; Visit Provider Anesthesiology Pain Medicine
DX: M54.2 Cervicalgia (principal)
CPT/HCPCS: 72040

== ENCOUNTER → 2019-05-15 13:11 | Outpatient (CLI) | payer MEDICARE, OTHER, SELFPAY ==
[2019-05-08 08:43] VITALS: BMI 25.9
--- NOTE | 2019-05-15 13:16 | RAD_ITS ---
STUDY: X-RAY - LEFT SHOULDER REASON FOR EXAM: Female, 69 years old. Follow-up fracture. TECHNIQUE: 2 view(s) of the shoulder. COMPARISON: Left humerus, May 08, 2019. FINDINGS: Normal glenohumeral articulation. Normal acromioclavicular joint. Normal acromion. Again seen is the fracture of the proximal humeral shaft unchanged from prior study. The soft tissue structures are unremarkable. Normal visualized pulmonary apex. RAD/Shoulder min 2 Views IMPRESSION: Stable fracture of the proximal humerus. Electronically Signed: Anshul Carrillo DO at 21:53 EDT Tel [phone], Service support ,
== END ==
PROVIDERS: Family Provider Student in an Organized Health Care Education/Training Program; PCP Student in an Organized Health Care Education/Training Program; Referring Provider Physician Assistant; Visit Provider Physician Assistant
DX: S42.202A Unspecified fracture of upper end of left humerus, initial encounter for closed fracture (principal)
CPT/HCPCS: 73030

== ENCOUNTER → 2019-05-29 08:34 | Outpatient (CLI) | payer MEDICARE, OTHER, SELFPAY ==
[2019-05-15 13:16] VITALS: BMI 25.9
--- NOTE | 2019-05-29 08:35 | RAD_ITS ---
STUDY: X-RAY - LEFT SHOULDER REASON FOR EXAM: Female, 69 years old. Follow up left shoulder fracture TECHNIQUE: 2 view(s) of the shoulder. COMPARISON: 05/15/2019. FINDINGS: Stable proximal left humeral fractures. Comminuted fractures are still seen of the surgical neck and proximal humeral shaft, but with no dislocation, angulation, or impaction. There is also a probable additional nondisplaced fracture of the greater tuberosity. No dislocation. The soft tissue structures are unremarkable. Normal visualized pulmonary apex. RAD/Shoulder min 2 Views IMPRESSION: Stable nondisplaced nonimpacted and not angulated fractures of the proximal left humerus. Electronically Signed: Otf Huizar MD at 17:20 EDT , Service support ,
== END ==
PROVIDERS: Family Provider Student in an Organized Health Care Education/Training Program; PCP Student in an Organized Health Care Education/Training Program; Referring Provider Physician Assistant; Visit Provider Physician Assistant
DX: S42.202A Unspecified fracture of upper end of left humerus, initial encounter for closed fracture (principal)
CPT/HCPCS: 73030

== ENCOUNTER → 2019-07-10 08:49 | Outpatient (CLI) | payer MEDICARE, OTHER, SELFPAY ==
[2019-07-10 08:43] VITALS: BMI 25.9
--- NOTE | 2019-07-10 08:51 | RAD_ITS ---
STUDY: X-RAY - LEFT SHOULDER REASON FOR EXAM: Female, 69 years old. Fracture TECHNIQUE: 3 view(s) of the shoulder. COMPARISON: Previous study of 05/29/2019 FINDINGS: Normal glenohumeral articulation. Normal acromioclavicular joint. Normal acromion. There is a healing nondisplaced fracture of the surgical neck of the left humerus and proximal humeral shaft. Sclerosis and callus formation is noted about the fracture site. Bone union has not occurred as of yet. Fracture alignment is good and unchanged from the previous study. The soft tissue structures are unremarkable. Normal visualized pulmonary apex. RAD/Shoulder min 2 Views IMPRESSION: Healing nondisplaced fracture of the surgical neck and proximal shaft of the left humerus. Electronically Signed: Carlos Rosas MD at 22:49 EST , Service support ,
== END ==
PROVIDERS: Family Provider Student in an Organized Health Care Education/Training Program; PCP Student in an Organized Health Care Education/Training Program; Referring Provider Physician Assistant; Visit Provider Physician Assistant
DX: S42.202A Unspecified fracture of upper end of left humerus, initial encounter for closed fracture (principal)
CPT/HCPCS: 73030

== ENCOUNTER 2019-07-11 12:00 | Outpatient (RCR) | payer MEDICARE, OTHER, SELFPAY ==
[2019-05-29 08:38] VITALS: BMI 25.9
--- NOTE | 2019-05-30 14:20 | HP.PTEVAL ---
Patient's Visit Information CHUY WAY is a 69 year old F referred to Physical Therapy by KATARINA Moncada with a diagnosis of LEFT PROXIMAL HUMERUS FRACTURE (POST IMMOBILIZATION). Date of Evaluation: 05/30/19 Physical Therapist: Irene Ba PT, Cert MDT - Visit Plan Frequency: 2-3x /Week Duration: 6-8 WEEKS Plan: *CERVICAL FREDDY PENDING 06/03/19*. *OSTEOPOROSIS*. MH/CP TO LEFT UE NEEDED. POSTURE CORRECTION/STRENGTHENING, INSTRUCTION IN APPROPRIATE BODY MECHANICS AND ACTIVITY MODIFICATIONS. JHON UE ROM, STRETCHING AND STRENGTHENING. LEFT UE A/AA/PROM. HEP INSTRUCTION. 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 Disability: NO. Present symptoms: A LOT OF PAIN IN ELBOW. LEFT SHOULDER PAIN. TRICEP AREA PAIN. NO NUMBNESS OR TINGLING. Present since: APR 21 2019. Pain Scale: Worst - 9/10 Least - 1/10. Currently: 08/29. Commenced as a result of: LOADING A TRUCK. HAD A SAFETY HARNESS ON BUT THE HARNESS CAUGHT ON A BOLT AND FLIPPED HER. SHE PUT HER ARM OUT TO CATCH HERSELF AND BROKE HER ARM. Symptoms at onset: SAME LOCATIONS OF PAIN. Worse: LIFTING ARM, TRYING TO OPEN A JAR OR A BOTTLE, DOING DISHES, TRYING TO PICK ANYTHING UP. ANYTHING THAT INVOLVES USE OF THE LEFT UE. Better: SLING AT TIMES, RESTING IT, CHANGING POSITION. Disturbed sleep: YES. Previous history/Previous treatment: LEFT SHOULDER SX ABOUT 12 YEARS AGO TO REMOVE SPUR. ABOUT 20 + YEARS AGO HAD ULNAR NERVE TRANSFER LEFT UE. Dizziness: NO. Tinnitis: NO. Nausea: NO. Shortness of Breath: NO. Difficulty Swollowing: NO. Gait: NORMAL. Accidents: FALL AT WORK ABOUT 9 YEARS AGO RESULTING IN RIGHT ANKLE FX AND ORIF - 3 SURGERIES. Unexplained weight loss: NO. Imaging: X-RAY YESTERDAY OF SHOULDER AND PATIENT REPORTS IZABEL TATE JUST SAID IT IS HEALING WELL. PMH/Recent major surgery: POLYMYALGIARHEUMATICA, GIANT CELL ARTERITIS. OSTEOPOROSIS. IN PAIN MGMT FOR NECK PROBLEMS EFFECTING LEFT UE. STATES SHE HAS ALREADY HAD A COUPLE INJECTIONS AND GOING IN FOR ANOTHER ONE SUNDAY WITH DR. HICKMAN. STAGE 4 UTERINE CANCER SURVIVOR OVER 30 YEARS AGO. TREMORS. OTHER: NO SURGERY LEFT SHOULDER. SLING UNTIL A FEW DAYS AGO. STILL WEARS THE SLING IN PUBLIC BUT NOT AT HOME. - Pain LEFT SHOULDER Pain Intensity (Out of 10): 1 Pain Intensity Range: 1, 9 LEFT ELBOW Pain Intensity (Out of 10): 1 Pain Intensity Range: 1, 9 - Objective Sitting Posture/Standing Posture: POOR. FORWARD HEAD. LEFT SHOULDER LOWER THAN RIGHT. NO TORTICOLLIS. Active Correction of posture: BETTER. Other Observations: INDEP GAIT INTO PT WITH A LEFT UE SLING ON. Motor deficit: RIGHT UE WFL. LEFT SHOULDER 2-/5, ELBOW AT LEAST 3+/5, HAND AT LEAST 4/5. Sensory deficit: JHON UE LIGHT TOUCH SENSATION INTACT AND SYMMETRICAL WITH TESTING TODAY. ROM deficit: RIGHT UE WFL. LEFT HAND, WRIST AND ELBOW FULL ROM. ABOUT 20% LEFT SUPINATION DECREASE. 43 DEG OF ACTIVE LEFT SHOULDER ABD AND 50 DEG OF FLEXION IN SITTING. SUPINE LEFT SHOULDER IR TO ABDOMEN, ER 20 DEG. PASSIVE SUPINE LEFT SHLD FLEX - 80 DEG, ABD 70 DEG. Reflexes: NT. Cervical Mvmt Loss: Flex: NIL. Pro: NIL. Ext: MOD. Ret: MOD. RSB: MOD TO LADARIUS. LSB: MOD TO LADARIUS. R Rot: MIN. L Rot: MOD. Postural strength: POOR. Palpation: TENERNESS THROUGHOUT LEFT SHOULDER UPPER ARM AND ELBOW. PALPABLE AREA OF INCREASED DENSITY LEFT MEDIAL ELBOW THAT PATIENT PLANS TO DISCUSS WITH DR. HICKMAN. MILD LEFT GENERAL SHOULDER AND ELBOW EDEMA. - Goals Goal 1:: INCREASE PAINFREE FUNCTIONAL LEFT UE ROM Goal Time Frame: 6-8 Weeks Goal 2:: INCREASE PAINFREE FUNCTIONAL LEFT UE STRENGTH Goal Time Frame: 6-8 Weeks Goal 3:: RETURN LE TO PRIOR LEVEL OF FUNCTION Goal Time Frame: 6-8 Weeks Goal 4:: INDEP HEP Goal Time Frame: 6-8 Weeks - Rehabilitation Potential Rehabilitation Potential: Good - Anticipated Interventions Patient/Client Instruction: Educate patient on: Condition, Plan of Care, Risk Factors, Benefits of Fitness Program For the Purpose of:: To improve self management Therapeutic Exercise to Include: Strength training, Postural training, Flexibilty training, Passive ROM, Active ROM, Scapular Strength/Stabilization For the Purpose of:: To decrease pain, To decrease swelling/inflammation, To increase ROM, To improve nutrient delivery to tissue, To improve muscle performance and motor function, To improve ability to perform ADL's, To increase tolerance to activity/condition/position, To improve ability of physical actions for home/community/work/leisure Manual Therapy Techniques to Include: Mobilization, Passive ROM Comment: LEFT SHOULDER, ELBOW, FOREARM For the Purpose of:: To decrease pain, To increase ROM, To improve nutrient delivery to tissue Cryotherapy (ice pack, ice massage): Yes Thermo therapy (hot pack): Yes For the Purpose of:: To decrease pain, To decrease swelling/inflammation, To increase ROM, To improve nutrient delivery to tissue Thank you for the opportunity to evaluate your patient. For Medicare and Medicare HMO plans, please review the plan of care and approve it. It will need to be FAXED BACK to us at [phone] for Medicare purposes. For Medicare only, by signing this I certify the plan of care. Please let me know if there are questions or concerns regarding this plan of care. Physician Signature: Date:
--- NOTE | 2019-07-03 12:46 | HP.PTREVAL ---
KATARINA Moncada, It has been my pleasure to treat CHUY WAY over the last 12 visits for LEFT PROXIMAL HUMERUS FRACTURE (POST IMMOBILIZATION). Please see the progress note below for an update on the physical therapy plan of care! Subjective: PATIENT REPORTS HER LEFT SHLD IS A LOT BETTER. SHE STATES SHE CAN REACH UP AND LIFT WITH HER LEFT UE A LOT BETTER. SHE REPORTS REACHING BEHIND HER BACK IS THE MOST LIMITED. INTERMITTENT ELBOW PAIN. Objective/Function: PATIENT IS PROGRESSING WELL WITH THERAPY. HER LEFT UE PAIN, ROM AND FUNCTION ARE ALL IMPROVING. UPON EXAM TODAY: Motor deficit: LEFT SHOULDER 3-/5, ELBOW 4/5, HAND AT LEAST 4/5. ROM deficit: LEFT HAND, WRIST AND ELBOW FULL ROM. 130 DEG OF ACTIVE LEFT SHOULDER ABD AND 135 DEG OF FLEXION IN SITTING. SUPINE LEFT SHOULDER IR TO 41 DEG, ER 61 DEG WITH 90 DEG ABD. PASSIVE SUPINE LEFT SHLD FLEX - 150 DEG, ABD 133 DEG. Cervical Mvmt Loss: Flex: NIL. Pro: NIL. Ext: MOD. Ret: MOD. RSB: MOD. LSB: MOD TO LADARIUS. R Rot: NIL. L Rot: MOD. Postural strength: POOR Plan Plan: *OSTEOPOROSIS*. CHECK LUE SUPINATION ROM. CONTINUE LUE ROM, STRETCHING AND STRENGTHENING TO HELP MEET SET GOALS 2X'S A WEEK X 3 WEEKS. PATIENT IS AGREEABLE. Goals Goal 1:: INCREASE PAINFREE FUNCTIONAL LEFT UE ROM Goal Time Frame: 6-8 Weeks Goal Progress: Progressing Goal 2:: INCREASE PAINFREE FUNCTIONAL LEFT UE STRENGTH Goal Time Frame: 6-8 Weeks Goal Progress: Progressing Goal 3:: RETURN LE TO PRIOR LEVEL OF FUNCTION Goal Time Frame: 6-8 Weeks Goal Progress: Progressing Goal 4:: INDEP HEP Goal Time Frame: 6-8 Weeks Goal Progress: Progressing Anticipated Interventions Patient/Client Instruction: Educate patient on: Condition, Plan of Care, Risk Factors, Benefits of Fitness Program For the Purpose of:: To improve self management Therapeutic Exercise to Include: Strength training, Postural training, Flexibilty training, Passive ROM, Active ROM, Scapular Strength/Stabilization For the Purpose of:: To decrease pain, To decrease swelling/inflammation, To increase ROM, To improve nutrient delivery to tissue, To improve muscle performance and motor function, To improve ability to perform ADL's, To increase tolerance to activity/condition/position, To improve ability of physical actions for home/community/work/leisure Manual Therapy Techniques to Include: Mobilization, Passive ROM Comment: LEFT SHOULDER, ELBOW, FOREARM For the Purpose of:: To decrease pain, To increase ROM, To improve nutrient delivery to tissue Cryotherapy (ice pack, ice massage): Yes Thermo therapy (hot pack): Yes For the Purpose of:: To decrease pain, To decrease swelling/inflammation, To increase ROM, To improve nutrient delivery to tissue Please do not hesitate to contact me at [phone] by phone or if you have questions or concerns regarding this new plan of care! Sincerely, Irene Ba, PT, Cert MDT
--- NOTE | 2019-07-11 12:36 | HP.PTDCSUM ---
HP - PT D/C Summary It has been my pleasure to treat CHUY WAY under orders from KATARINA Moncada, for the diagnosis of LEFT PROXIMAL HUMERUS FRACTURE (POST IMMOBILIZATION) for a total of 14 visit(s). Discharge Date: Please see the following information for a summary of their discharge status. - Subjective Subjective: PATIENT REPORTS HER BIGGEST HANG UP IS GETTING HER ARM BEHIND HER BACK BUT IZABEL TOLD HER THAT IS GOING TO TAKE TIME AND NOT TO OVER-DO IT. SAW IZABEL YESTERDAY AND HE RELEASED HER. STATES HER X-RAYS LOOK GOOD. PATIENT REPORTS SHE WOULD LIKE TO TRY TO CONTINUE HER EX'S ON HER OWN AT THIS POINT. - Pain LEFT SHOULDER Pain Intensity (Out of 10): 1 LEFT ELBOW Pain Intensity (Out of 10): 0 - Overall Improvement % Improvement: 90 - Objective Objective/Function: ALL GOALS MET. PATIENT INDEP WITH HEP. Now with flexion to 155 degrees, abd to 145 degrees. No pain , just a tight endfeel. - Goals Goal 1:: INCREASE PAINFREE FUNCTIONAL LEFT UE ROM Goal Progress: Goal Met Goal 2:: INCREASE PAINFREE FUNCTIONAL LEFT UE STRENGTH Goal Progress: Goal Met Goal 3:: RETURN LE TO PRIOR LEVEL OF FUNCTION Goal Progress: Goal Met Goal 4:: INDEP HEP Goal Progress: Goal Met - Plan Plan: D/C TO HEP - D/C Information If there are questions or concerns regarding this patient's physical therapy, please feel free to call me at [phone]. Thank you for the referral of this patient. Sincerely, Irene aB, PT, Cert MDT
== END 2019-07-11 19:00 | disposition home or self-care (01) ==
LOC: PT 12:00
PROVIDERS: Family Provider Student in an Organized Health Care Education/Training Program; PCP Student in an Organized Health Care Education/Training Program; Referring Provider Physician Assistant; Visit Provider Physician Assistant
DX: S42.202D Unspecified fracture of upper end of left humerus, subsequent encounter for fracture with routine healing (principal)
CPT/HCPCS: 97110; 97140; 97162; 97530

== ENCOUNTER → 2019-09-17 07:49 | Outpatient (CLI) | payer MEDICARE, OTHER, SELFPAY ==
[2019-07-10 08:43] VITALS: BMI 25.9
--- NOTE | 2019-09-17 08:00 | BI_ITS ---
MAMMOGRAPHY - BILATERAL SCREENING REASON FOR EXAM: Female, 69 years old. Routine annual screening examination. PERTINENT HISTORY: Non-contributory. TECHNIQUE: Digital bilateral breast domenic (3D mammographic acquisition) in the CC and MLO projections. 2-D mediolateral oblique (MLO) and craniocaudad (CC) views of both breasts were obtained. CAD: Full Field Digital Mammography with Computer Added Detection was performed. COMPARISON: Comparison is made with prior study dated July 19, 2018 and May 28, 2017. FINDINGS: Breast Composition: The breasts are heterogeneously dense, which may obscure small masses. There are no dominant masses or suspicious calcifications. A tissue clip marker is seen within the superior slightly medial retroareolar region of the right breast. Stable benign-appearing bilateral axillary lymph nodes. No other significant abnormalities are identified. There has been no significant change since the prior study. BI/SCREEN MAMM (CAD) W/DOMENIC BILAT IMPRESSION: Stable bilateral screening mammogram. Yearly follow-up mammogram recommended. (A) ASSESSMENT CATEGORY: BIRADS Category 2: Benign. A letter regarding these results will be sent to the patient by the facility within 30 days. Approximately 10% of breast cancers are not detected by mammography. A normal mammogram should not delay biopsy of a clinically suspicious abnormality. [id number] Electronically Signed: Franky Gardner, at 9:14 EST , Service support ,
== END ==
PROVIDERS: PCP Student in an Organized Health Care Education/Training Program; Referring Provider Registered Nurse; Visit Provider Registered Nurse
DX: Z12.31 Encounter for screening mammogram for malignant neoplasm of breast (principal)
CPT/HCPCS: 77063; 77067

== ENCOUNTER → 2020-05-26 | Outpatient (CLI) | payer MEDICARE, OTHER, SELFPAY ==
[2019-07-10 08:43] VITALS: BMI 25.9
[2020-05-29 14:29] LABS: HPV APTIMA, High Risk Negative (Negative); HPV Reflexed? YES, CHARGE PATIENT
== END | disposition home or self-care (01) ==
LOC: LABSPEC 10:58
PROVIDERS: PCP Student in an Organized Health Care Education/Training Program; Visit Provider Obstetrics & Gynecology
DX: Z12.4 Encounter for screening for malignant neoplasm of cervix (principal)
CPT/HCPCS: 87624; 88175; G0145

== ENCOUNTER → 2020-05-29 | Outpatient (CLI) | payer MEDICARE, OTHER, SELFPAY ==
[2019-07-10 08:43] VITALS: BMI 25.9
--- NOTE | 2020-05-29 08:39 | US_ITS ---
STUDY: ABDOMINAL ULTRASOUND - RIGHT UPPER QUADRANT REASON FOR VISIT: Female, 70 years old RUQ PAIN , NAUSEA, AND DIARRHEA INTERMITTENT X 1.5 YEARS WORSE IN LAST SEVERAL MONTHS TECHNIQUE: Ultrasound evaluation of the right upper quadrant was performed with real-time and static nevarez-scale imaging. TECHNICAL QUALITY: Adequate. COMPARISON: None. FINDINGS: Liver: The liver measures 16 cm. There is normal echogenicity of the liver. The bile ducts are within normal limits. There is hepatic color flow. The direction of portal flow is hepatopetal. There is no demonstrated mass lesion. Gallbladder: There is a contracted gallbladder. The gallbladder wall measures 3 mm. There is a negative sonographic Jha''s sign. There is no pericholecystic fluid. There are multiple echogenic structures within the gallbladder, consistent with multiple gallstones. Common Bile Duct (C.B.D.): The common bile duct measures 6 mm. Pancreas: There is increased echogenicity of the pancreas. There is no demonstrated pancreatic mass or cyst. Right Kidney: Normal size of the right kidney. The right kidney measures 9.9 x 4.2 x 4.1 cm. Normal renal cortex. The right cortex measures 1.1 cm. There is no demonstrated renal mass or cyst. There is no right hydronephrosis. US/Abdomen Limited IMPRESSION: 1. Contracted gallbladder with gallstones. Electronically Signed: Mihai Michael MD ([place]) at 9:54 EDT , Service support ,
== END | disposition home or self-care (01) ==
LOC: US 08:38
PROVIDERS: PCP Student in an Organized Health Care Education/Training Program; Referring Provider Internal Medicine Gastroenterology; Visit Provider Internal Medicine Gastroenterology
DX: R10.11 Right upper quadrant pain (principal)
CPT/HCPCS: 76705

== ENCOUNTER → 2020-06-10 | Outpatient (CLI) | payer MEDICARE, OTHER, SELFPAY ==
[2019-07-10 08:43] VITALS: BMI 25.9
--- NOTE | 2020-06-10 10:25 | NM_ITS ---
CLINICAL: 70-year-old female with reported history of right upper quadrant abdominal pain and nausea. RADIONUCLIDE HEPATOBILIARY SCINTIGRAPHY COMPARISON: Abdominal ultrasound report 05/29/2020 FINDINGS: Following the intravenous administration of 5.4 mCi of 99m Tc Mebrofenin, hepatobiliary images reveal: 1. Relatively prompt and homogeneous radiopharmaceutical concentration is noted by a normal sized liver. No parenchymal defects are identified. 2. Gallbladder activity is not identified during 60 minutes of sequential imaging. 3. Small intestinal tract is observed at 15 minutes post radiopharmaceutical administration. 4. Washout of the radiopharmaceutical by the hepatic parenchyma appears qualitatively normal. 5. Following the administration of cholecystokinin, there is evidence of duodenal-gastric reflux. The gallbladder remains nonvisualized. MS/Hepatobilliary Img w/Pharm Int IMPRESSION: 1. ABNORMAL 99m Tc Mebrofenin hepatobiliary imaging examination. A. Nonvisualization of the gallbladder at 60 minutes post radiopharmaceutical administration and 30 minutes following CCK infusion in the nonacute setting likely represents chronic cholecystitis in patients with intermediate to high pretest probabilities of hepatobiliary disease and who have fasted for more than 4 and less than 24 hours. (Hugo et al, Nucl Med Leia [employer] Press pg. 35, 1980). B. There is scintigraphic evidence of duodenal-gastric reflux following the administration of cholecystokinin. Electronically Signed: Joaquín Griffin DO at 22:34 EDT Tel , Service support ,
== END | disposition home or self-care (01) ==
LOC: NM 10:23
PROVIDERS: PCP Student in an Organized Health Care Education/Training Program; Referring Provider Internal Medicine Gastroenterology; Visit Provider Internal Medicine Gastroenterology
DX: K80.80 Other cholelithiasis without obstruction (principal); R10.9 Unspecified abdominal pain
CPT/HCPCS: 78227; A9537

== ENCOUNTER 2020-07-09 06:01 | Day surgery (SDC) | payer MEDICARE, OTHER, SELFPAY ==
[2020-06-22 09:38] VITALS: BMI 24.9
--- NOTE | 2020-07-05 08:36 | EKG12_ITS ---
Test Reason : PRE OP Blood Pressure : / mmHG Vent. Rate : 069 BPM Atrial Rate : 069 BPM P-R Int : 136 ms QRS Dur : 076 ms QT Int : 390 ms P-R-T Axes : 074 068 072 degrees QTc Int : 417 ms Normal sinus rhythm Nonspecific ST abnormality Abnormal ECG Confirmed by MAX JAMES, AUTUMN ([id number]), editor school photograph CHARLIE GARCIA ([id number]) on 07/06/2020 8:36:25 AM Referred By: Will Ruiz Confirmed By:AUTUMN SANTANA MD
[2020-07-05 09:21] LABS: Hematocrit 40.2 % (37-47); Hemoglobin 12.4 g/dL (12.0-15.0); Mean Corp Hgb Conc 30.8 g/dL (32-36); Mean Corpuscular Hgb 30.3 pg (27.0-32.0); Mean Corpuscular Volume 98.3 fL (81-99); Mean Platelet Vol. 9.6 fl (6.2-12.0); Platelet Count 313 K/mm3 (150-450); RBC Distribution Width CV 13.1 % (11.6-14.6); Red Blood Count 4.09 M/mm3 (4.2-5.4); White Blood Count 11.2 K/mm3 (4.4-11.0)
[2020-07-05 10:17] LABS: Anion Gap 8 (5-15); BUN 21 mg/dL (7-18); BUN/Creat Ratio 24.6 RATIO (10-20); Calcium,Total 9.3 mg/dL (8.5-10.1); Chloride 103 mmol/L (98-107); Creatinine, Serum 0.86 mg/dL (0.55-1.02); EST Glomerular Filtration Rate 70 mL/min (>60); Est Glom Filt Rate - Afr Amer 84 mL/min (>60); Glucose 90 mg/dL (74-106); Potassium 3.4 mmol/L (3.5-5.1); Sodium Level 141 mmol/L (136-145)
[2020-07-08 12:11] LABS: Probe Check PASS; Specimen Processing Control PASS
[2020-07-09] VITALS (10 sets, daily range): BP systolic 123–147; BP diastolic 55–77; PULSE 55–68; RESP 16–20; TEMP 36.1–36.6; O2SAT 91–99; BMI 25.4
[2020-07-09] MEDS: Lactated Ringers 1,000 ML 100 ML IV (06:58)
--- NOTE | 2020-07-09 07:00 | HP_ITS ---
Intake Vital Signs 06/22/20 Height 5 ft 5.5 in 06/22/20 Weight: 152 lb 4 oz 06/22/20 BP 166/81 H 06/22/20 Blood Pressure Location Rt brachial 06/22/20 Position Sitting 06/22/20 Respiration 20 H 06/22/20 Pulse 65 06/22/20 Pulse Source NIBP 06/22/20 Temp 97.6 F L 06/22/20 Temp Source Temporal 06/22/20 Pulse Oximetry (%) 95 06/22/20 Oxygen Delivery Method room air Intake Visit Reasons: GALLBLADDER Chief Complaint: gallstones, abn US and hida Turf Grower Required: No Is patient in pain?: No Allergies No Known Allergies Allergy (Verified 06/22/20 09:38) Medications Travoprost 0.004% [Travatan-Z 0.004% Eye Drop] 1 drp EACH EYE DAILY 04/05/14 [History Confirmed 06/22/20] predniSONE tablet 30 mg PO DAILY 04/05/14 [History Confirmed 06/22/20] Metoprolol Tartrate [Lopressor (beta maitlde)] 25 mg PO BID 02/24/17 [History Confirmed 06/22/20] teriparatide 20 mcg/dose (600 mcg/2.4 mL) subcutaneous pen injector 20 mcg SC DAILY ml 06/22/20 [History Confirmed 06/22/20] Is last menstrual period known: No Post menopausal: Yes Patient : No PFSH Medical History Bartholin cyst (Acute) History of uterine cancer (Acute) Osteoarthritis (Acute) GERD (gastroesophageal reflux disease) (Acute) Chest pain at rest (Acute) 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) Tremor (Acute) Surgical History History of appendectomy (Acute) Status post ORIF of fracture of ankle (Acute) history of ulnar nerve transplant (Acute) History of arthroplasty of left shoulder (Acute) History of colonoscopy (Acute) History of partial hysterectomy (Acute) history of bartholin cyst removal (Acute) History of breast biopsy (Acute ~07/2018) History of right breast biopsy (Acute) Status post fine needle aspiration (Acute) Family History Brother Cancer liver and lymphoma Sister Cancer lung Diabetes Father Diabetes Heart disease Myocardial infarction Mother Heart disease Social History (Updated 06/23/20 @ 10:[address] Will Ruiz MD) Smoking Status: Current every day smoker HPI HPI Surgical H&P: Yes HPI: CHUY WAY, is a 70 F who presents to the office today for Evaluation of right upper quadrant abdominal pain. Patient has had a 6-month history of diarrhea bloating upper abdominal pain in the right upper quadrant and going into her back. Is been intermittent in nature usually associated with certain foods. She has had a gallbladder ultrasound which showed a contracted gallbladder with gallstones, bile duct was 6 mm in diameter. There was no pericholecystic fluid and there was a negative Jha sign. She also subsequently underwent a gallbladder HIDA scan which showed no filling of the gallbladder after the injection of The radio pharmacological tracer.This test in particular was extremely painful for her. ROS General General: Yes fatigue; no weight change, appetite, colon cancer, breast cancer or weakness HEENT HEENT: Yes difficulty swallowing and eye surgery; no eye injury, swollen glands or hoarseness Endo Endocrine: No thyroid disease, diabetes mellitus, thyroid cancer, Hair loss, heat intolerance or cold intolerance Musc Musculoskeletal: Yes arthritis; no back problems, rheumatoid arthritis, gout or joint pain Cardio Cardiovascular: No murmur, pacemaker, heart disease, atrial fibrillation, high blood pressure, heart attack, heart stent, palpitations, shortness of breat with exertion or chest pain Psych Psychiatric: No depression, anxiety or hearing voices Resp Respiratory: No shortness of breath, Yes sleep apnea, No cough, No COPD, No asthma, No emphysema, No wheezing Gastro Gastrointestinal: Yes abdominal pain, Yes nausea or vomiting, Yes diarrhea, Yes constipation, No blood in stool, Yes acid reflux, No hemorrhoids, No ulcers, Yes gallbladder problem, No black,tarry stools Lane Hematologic: No blood thinners, No blood disorders, No bleeding, No anemia, No blood clots Neuro Neurologic: No weakness Exam Const General: no acute distress, well developed, well hydrated Orientation: oriented to person, oriented to place, oriented to time [facility] Head: normocephalic, atraumatic Ears: external ears normal Mouth: moist mucous membranes Eyes Sclera: sclerae normal Pupils: normal by confrontation Neck Neck: no lymphadenopathy noted Neck mass: No Thyroid: thyroid normal, symmetrical Chest Chest palpation & inspection: normal inspection of the chest Resp Effort & Inspection: normal respiratory effort Auscultation: clear to auscultation bilaterally Percussion: percussion normal Cardio Rate: regular rate Rhythm: regular rhythm Heart Sounds: no murmurs GI Palpation: soft, no hepatosplenomegaly, no masses, tender Auscultation: normal bowel sounds Rectal Exam: other Other: Rectal exam deferred. Extrem General: normal to inspection, no clubbing, cyanosis or edema Assessment & Plan Problems 1. Calculus of gallbladder with acute on chronic cholecystitis without obstruction K80.12 2. Epigastric abdominal pain R10.13 Plan My plan is to perform a laparoscopic cholecystectomy with intraoperative cholangiogram. The planned surgical procedure was discussed extensively with the patient. The risks, benefits, anticipated outcomes and possible complication were mentioned. My staff has also explained the procedure in understandable terms and the patient was given the option to take printed material concerning the planned procedure. The patient had the opportunity to ask questions concerning the planned procedure. The patient freely consents to the planned procedure. Coding Level of Care Code Off vis,new,level 3 Diagnoses Calculus of gallbladder with acute on chronic cholecystitis without obstruction K80.12 ??Cholelithiasis location: gallbladder ??Cholecystitis acuity: acute and chronic Epigastric abdominal pain R10.13 COVID (Procedure Consent) Procedure Criteria Procedure Criteria: Yes Elective The surgeon/proceduralist and patient have discussed in detail the risk of exposure to and/or potential harm posed by the COVID-19 virus with having a surgery/procedure at this time versus the risk of? delaying the surgery/procedure. It is not possible to know either the risk of delaying the surgery or procedure or chance of getting an infection with perfect accuracy, but a joint decision was made between the patient and the surgeon/proceduralist ?to proceed at this time with the scheduled surgery/procedure as indicated on the consent form. I have re-examined the patient. There are no clinical changes since date of exam.
--- NOTE | 2020-07-09 07:30 | GALL_PTH ---
PATIENT: CHUY WAY LOC: [facility] [place] U#:[id number] AGE/SX: 70/F ROOM: RE07/09/[address]: Dr. Will Ruiz MD : 1950 BED: DIS: 07/09/2020 SPEC #: [id number] RECD: 07/09/20 14:45 STATUS: TORRES ANTONIO #: [id number] UMESH: 07/09/20 07:[address]: Will Ruiz DEPT: SURGICAL PATHOLOGY RECD BY: Antonieta Vital ENTERED: 07/12/20 07:22 SP TYPE: MARCY RING DR: Dr. Miah Cottrell DO Tissues: Gallbladder, NOS Procedures: Surgery Specimen Level III HEADER OPERATION: Robotic lap cholecystectomy PRE-OP DIAGNOSIS: Calculus of gallbladder with acute on chronic cholecystitis; epigastric abdominal pain TISSUE SUBMITTED: Gallbladder MICROSCOPIC DIAGNOSIS Gallbladder, cholecystectomy: Chronic cholecystitis and cholelithiasis. AM:lili 07/13/20 MICROSCOPIC DESCRIPTION Slides are reviewed. GROSS DESCRIPTION Received is one container labeled with the patient's name and designated gallbladder. The specimen consists of a gallbladder measuring 7 x 3 x 1.8 cm. The external surface is smooth and glistening. Focally, it is granular, hemorrhagic and contains cautery artifact. The lumen of the gallbladder contains yellow-green mucoid bile and multiple palomares to black calculi ranging in size from <0.1 to 0.6 cm. The mucosa is bile-stained and without any mass lesions. The gallbladder wall averages 0.4 cm in thickness and is free of mass lesions. Instant Printer Operator sections of the gallbladder and the cystic duct at margin of resection are submitted in one cassette. / AM:lili 07/12/20 TC:3 CPT: 93276
[2020-07-09] MEDS: Cefazolin 2 GM in 0.9% Normal Saline 100 ML IV (07:40)
[2020-07-09] MEDS: Bupivacaine Mpf 0.5% 30 ML VIAL (08:30)
--- NOTE | 2020-07-09 08:57 | DCINST_ITS ---
Discharge Diet: Light diet - advance as tolerated Discharge Activity: May Not Drive - for 2-3 days or while taking narcotic pain medications., - - Do not drive, work heavy equipment or sign legal documents for 24 hours. May shower in (days): 1 - with the bandage in place. Additional Activity Instructions:: Pain medication may cause nausea. You should typically eat light foods as you take your pain medications. Pain medication may also cause constipation. If this is a problem for you, please discuss with your doctor. Call your doctor if your incision/area has: Continuous Slow Oozing, Sudden Increased Bleeding, Increased Pain/ Swelling, Increased Redness, Foul Smelling Discharge Call your doctor if you observe: Fever of 101 or Higher Suture Line Care: Avoid Pulling/Pushing, Avoid Pinching/Bending Additional Dressing/Incision Instructions:: Leave operative bandaids on for 2 days. When you remove dressing, leave Steri-Strips on until your follow-up appointment, or until the Steri-Strips fall off on their own. Allergies/Adverse Reactions: Allergies No Known Allergies Allergy (Verified 07/09/20 06:37) Medications to take at Discharge Travoprost 0.004% [Travatan-Z 0.004% Eye Drop] 1 drp EACH EYE DAILY 04/05/14 predniSONE tablet 10 mg PO DAILY 04/05/14 Cholecalciferol (VIT D3) [Vitamin D] 5,000 unit PO DAILY 07/02/20 Metoprolol Succinate 50 mg PO DAILY 07/02/20 Teriparatide [Forteo] 20 mcg SQ DAILY 07/02/20 Oxycodone HCl/Acetaminophen [Percocet 5/325] 1 - 2 tab PO Q4H PRN PRN 6 Days #30 tab 07/09/20 The following prescriptions were given: Oxycodone HCl/Acetaminophen [Percocet 5/325] 1 - 2 tab PO Q4H PRN PRN 6 Days #30 tab PRN Reason: Pain Transmission Status: Sent to [facility] Orders to be completed after discharge: 12 Lead EKG [[facility]] Time Frame: 07/05/20, Location: None Selected Primary Care Physician: Miah Cottrell DO [Primary Care Provider] - Test Results: Test results from this visit will be discussed in further detail at your follow- up appointment, if applicable. Please Follow Up With: Will Ruiz MD - Please call [phone] to schedule an appointment. When: 7 days after your surgery.
--- NOTE | 2020-07-09 08:58 | PCM.OPRPT ---
Problem List (1) Cholelithiasis Status: Acute Qualifiers: Cholelithiasis location: gallbladder Cholecystitis presence: with cholecystitis Cholecystitis acuity: acute and chronic Biliary obstruction: without biliary obstruction Qualified Code(s): K80.12 - Calculus of gallbladder with acute and chronic cholecystitis without obstruction Report of Operation Date of Procedure: 07/09/20 Pre-Operative Diagnosis: Symptomatic cholelithiasis Post-Operative Diagnosis: Same Surgery/Procedure Performed:: Robotic assisted laparoscopic cholecystectomy Type of Anesthesia:: General Anesthesiologist: Christofer Saenz Estimated Blood Loss (mL): < 25 cc Description of Procedure: Patient was brought into the operating room. Placed in the supine position. Under excellent general trach intubation the bed was placed in the head up position rotated slightly to the left and sterilely prepped and draped in usual fashion. Local was injected above the umbilicus. Dissection was carried down fascia grasped with [place] varies needle was placed inside the abdomen the abdomen was insufflated 15 torr a #8 trocar was placed. This was flank by 2 more #8 trochars placed under direct visualization. And then finally a #5 trocar was placed laterally on the left side. All these under direct visualization without injury to the surrounding structures. The robot was brought in and docked appropriately. Prograsp was placed into the #2 port and scissors were placed in the #1 port. Fundus of the gallbladder was grasped retracted in a cephalad direction infundibulum was grasped retracted laterally. I dissected out the cystic duct cystic artery and posteriorly and identified the liver itself. Once I had this anatomy clearly seen to me hemolock clips were placed proximally and distally on the cystic duct and the duct was ligated 2 more clips were placed proximally and distally on the artery and the artery was ligated I deliver the gallbladder from the gallbladder bed with use of electrocautery. I had trouble getting the gallbladder into the bag and I had to remove the robot and reinflate the abdomen once I did this I was able to easily place the gallbladder into the specimen bag and delivered through the #8 trocar without difficulty I reinflated the abdomen use electrocautery on the liver bed for good pneumostasis. Trochars were removed under direct visualization good in the stasis was noted. Skin incisions were closed with subcuticular stitches of 4-0 Monocryl. Steri-Strips were applied sterile dressings were applied and the patient tolerated the procedure well. - Admit VTE Documentation VTE Present on Admission: No VTE Mechan Device Prophylaxis: SCD's VTE Pharm Prophylaxis ordered?: No Reason prophylaxis not ordered:: Treatment Not Indicated [id number]: [id number] Laparoscopic cholecystectomy
== END 2020-07-09 11:37 | disposition home or self-care (01) ==
LOC: SDC 06:03 → AC 06:03
PROVIDERS: Anesthesiology; PCP Student in an Organized Health Care Education/Training Program; Referring Provider Surgery; Visit Provider Surgery
PROC: 0FT44ZZ Resection of Gallbladder, Percutaneous Endoscopic Approach (ICD-10-PCS; CPT 47562; principal; 2020-07-09 07:10)
DX: K80.10 Calculus of gallbladder with chronic cholecystitis without obstruction (principal); R10.13 Epigastric pain; F17.200 Nicotine dependence, unspecified, uncomplicated; M31.5 Giant cell arteritis with polymyalgia rheumatica; Z85.43 Personal history of malignant neoplasm of ovary
CPT/HCPCS: 00790; 47562; 36415; 80048; 85027; 87426; 87635; 88304; 93005; C9803; J7120; J2405; U0002

== ENCOUNTER → 2020-09-20 08:23 | Outpatient (CLI) | payer MEDICARE, OTHER, SELFPAY ==
[2019-07-10 08:43] VITALS: BMI 25.9
[2020-07-09 06:33] VITALS: BMI 25.4
--- NOTE | 2020-09-20 08:26 | BI_ITS ---
MAMMOGRAPHY - BILATERAL SCREENING REASON FOR EXAM: Female, 70 years old. Routine annual screening examination. PERTINENT HISTORY: Non-contributory. Remote right breast biopsy. TECHNIQUE: Digital bilateral breast domenic (3D mammographic acquisition) in the CC and MLO projections. 2-D mediolateral oblique (MLO) and craniocaudad (CC) views of both breasts were obtained. CAD: Full Field Digital Mammography with Computer Added Detection was performed. COMPARISON: Comparison is made with prior examination dated 09/17/2019 and 01/31/2019. FINDINGS: Breast Composition: The breasts are heterogeneously dense, which may obscure small masses. There are no dominant masses or suspicious calcifications. There is an 8.4 mm x 1 cm well-defined nodule in the slightly upper lateral portion of the right breast. Correlation with ultrasound is recommended. A tissue clip marker is once again seen in the central retroareolar region of the breast. No other significant abnormalities are identified. BI/SCRN MAMM (CAD)W/DOMENIC BILAT IMPRESSION: 8.4 mm x 10 mm well-defined nodule in the slightly upper lateral portion of the right breast. Correlation with ultrasound is recommended. ASSESSMENT CATEGORY: BIRADS Category 0: Incomplete. Need additional imaging evaluation. A letter regarding these results will be sent to the patient by the facility within 30 days. Approximately 10% of breast cancers are not detected by mammography. A normal mammogram should not delay biopsy of a clinically suspicious abnormality. [id number] Electronically Signed: Franky Gardner MD at 13:56 EST , Service support ,
== END ==
PROVIDERS: PCP Student in an Organized Health Care Education/Training Program; Referring Provider Obstetrics & Gynecology; Visit Provider Obstetrics & Gynecology
DX: Z12.31 Encounter for screening mammogram for malignant neoplasm of breast (principal)
CPT/HCPCS: 77063; 77067

== ENCOUNTER → 2020-09-24 10:41 | Outpatient (CLI) | payer MEDICARE, OTHER, SELFPAY ==
[2020-07-09 06:33] VITALS: BMI 25.4
--- NOTE | 2020-09-24 10:43 | US_ITS ---
STUDY: ULTRASOUND BREAST - RIGHT REASON FOR EXAM: Female, 70 years old. Abnormal screening mammogram. TECHNIQUE: Axial and longitudinal images of the RIGHT breast were performed with a high resolution ultrasound transducer. # OF IMAGES: 13 COMPARISON: Comparison is made with prior mammogram dated 09/20/2020. FINDINGS: RIGHT Breast: There is an 8 mm x 10 mm x 5 mm hypoechoic well-defined nodule at the 8 o''clock position in the breast at 6 cm from the nipple. A biopsy recommended. US/Breast Limited Unilateral IMPRESSION: The mammographic abnormality corresponds to an 8 mm x 10 mm x 5 mm hypoechoic nodule at the o''clock position of the breast at 6 mm from nipple. Biopsy is recommended. ASSESSMENT CATEGORY: BIRADS Category 4: Suspicious - Biopsy Should Be Considered. A letter regarding these results will be sent to the patient by the facility within 30 days. Electronically Signed: Franky Gardner MD at 12:27 EST , Service support ,
== END ==
PROVIDERS: PCP Student in an Organized Health Care Education/Training Program; Referring Provider Obstetrics & Gynecology; Visit Provider Obstetrics & Gynecology
DX: N63.13 Unspecified lump in the right breast, lower outer quadrant (principal)
CPT/HCPCS: 76642

== ENCOUNTER → 2020-11-10 10:42 | Outpatient (CLI) | payer MEDICARE, OTHER, SELFPAY ==
[2020-07-09 06:33] VITALS: BMI 25.4
[2020-11-11 16:08] LABS: Endomysial Antibody IgA Negative (Negative)
[2020-11-12 05:13] LABS: Immunoglobulin A 203 mg/dL (87-352); t-Transglutaminase IgA <2 U/mL (0-3)
== END ==
PROVIDERS: PCP Student in an Organized Health Care Education/Training Program; Referring Provider Internal Medicine Gastroenterology; Visit Provider Internal Medicine Gastroenterology
DX: R19.7 Diarrhea, unspecified (principal)
CPT/HCPCS: 36415; 82784; 83516; 86140; 86255

== ENCOUNTER 2020-11-20 19:35 | Emergency (ER) | payer MEDICARE, OTHER, SELFPAY ==
[2020-07-09 06:33] VITALS: BMI 25.4
[2020-11-20 19:36] VITALS: BP 190/73; PULSE 57; RESP 18; TEMP 36.6; O2SAT 98; BMI 23.8
--- NOTE | 2020-11-20 20:27 | CT_ITS ---
STUDY: CT BRAIN WITHOUT CONTRAST REASON FOR EXAM: Female, 70 years old. RT SIDED HEADACHE,RT EYE DRAINAGE HX:UTERINE CANCER GIANT CELL ARTERITIS RADIATION DOSAGE (If Supplied By Facility): CTDIvol = ( 44.99 ) mGy, DLP = ( 812.98 ) mGycm TECHNIQUE: Transaxial CT imaging of the brain was performed without administration of intravenous contrast material. Individualized dose optimization techniques were used for this CT. COMPARISON: None. FINDINGS: Normal soft tissue structures. Normal calvarium. There is mild cerebral atrophy with widening of the extra-axial spaces and ventricular dilatation. There are areas of decreased attenuation within the white matter tracts of the supratentorial brain, consistent with microvascular disease changes. Normal basal ganglia and thalami. Normal brainstem. Normal cerebellum. There is no intracranial hemorrhage. There are no findings of an acute ischemic infarction. Normal visualized paranasal sinuses. CT/Brain/Head without Contrast IMPRESSION: Chronic involutional changes of the brain. Electronically Signed: Edu Hughes MD at 21:22 EDT , Service support ,
--- NOTE | 2020-11-20 20:29 | ED.VISSUMM ---
- ER Visit Summary Date of Service: 11/20/20 Chief Complaint: Headache and visual changes History of Present Illness: The patient is a 70 F who presents with headache and blurred vision for the past 3 days. Patient has a history of giant cell arteritis and polymyalgia rheumatica. Patient is on prednisone for this. Patient states her headache is over the frontal area and right temporal area. Patient states she was on the computer doing a jigsaw puzzle when her vision became somewhat blurry today. Patient states she stopped doing that. Patient states her vision returned to normal. Patient states her headache has been persistent. Patient describes it as a constant ache. Patient states nothing makes it better nothing makes it worse. Physical Examination: Vital signs are stable for an elevated blood pressure of 190/73. Patient is afebrile. Patient is in no acute distress. Pupils are equal, round, and reactive to light bilaterally. Extraocular muscles are intact. Funduscopic examination was benign bilaterally. Oral mucosa is pink and moist. Neck is supple. Trachea is midline. There is no JVD. Heart was regular rate and rhythm. Lungs are clear and equal bilaterally. Abdomen is soft. Bowel sounds are normal. There is no tenderness. Cranial nerves II through XII are intact. There are no focal motor or sensory deficits noted. There is no tenderness over the temporal artery. Extremities are intact. There is no calf tenderness or edema. Test Results: CBC and comprehensive metabolic profile were obtained and were within normal limits. CRP was elevated at 16.1. Sed rate was normal at 29. Visual acuity was obtained and was 20/30 in the right eye and 20/30 in the left eye. CT scan of the brain was obtained. There are chronic changes. There is no acute process noted. This was interpreted by the radiologist and reviewed by myself. Emergency Department Course and Treatment: Patient was given a dose of Snelling here. Case was discussed with Dr. Alvarez, patient's merchandise worker. He recommended increasing the patient's prednisone to 20 mg a day. He will follow up with the patient in his office in 2 days. Patient was also instructed to follow-up with her insulation machine operator. Patient states she has an appointment coming up this week with her insulation machine operator. Patient was instructed to return if worse in any way. Patient understood and was agreeable with the plan. All questions were answered. Disposition: Discharge home Impression: 1. Headache 2. Blurred vision This note was generated with [employer] dictation software. It may contain incorrect words, spelling, and punctuation that were not noted in review of the chart prior to signing ED Disposition - Plan for ED Patient: Disposition: Home or Assisted Living Diagnosis: Headache, History of blurred vision Instructions: ED Pain, Acute, Uncertain Cause Prescriptions: Prednisone [Deltasone] 20 mg PO DAILY #5 tablet Transmission Status: [facility] Hydrocodone Bitart/Apap 5-325 [Snelling 5MG-325MG] 1 tablet PO Q6H PRN PRN 3 Days #10 tablet PRN Reason: Pain Transmission Status: [facility] Referrals: Mark Alvarez MD [STAFF PHYSICIAN] - 2 Days Miah Cottrell DO [Primary Care Provider] - Keep [place] appointment
[2020-11-20 20:47] LABS: Absolute Lymphocyte Count 3.09 X10^3/uL (0.83-4.51); Absolute Neutrophil Count 6.7 X10^3/uL (2.0-7.7); Basophil# 0.05 X10^3/uL; Basophil% 0.5 % (0-1); Eosinophil# 0.03 X10^3/uL; Eosinophils% 0.3 % (0-5); Hematocrit 39.5 % (37-47); Hemoglobin 12.7 g/dL (12.0-15.0); Lymphocyte # 3.09 X10^3/ul (4.0); Lymphocyte % 28.9 % (19-41); Mean Corp Hgb Conc 32.2 g/dL (32-36); Mean Corpuscular Hgb 31.4 pg (27.0-32.0); Mean Corpuscular Volume 97.5 fL (81-99); Mean Platelet Vol. 10.1 fl (6.2-12.0); Monocyte# 0.74 X10^3/uL; Monocyte% 6.9 % (0-10); NRBC Flagged by Analyzer 0 % (0-5); Neutrophil # 6.73 X10^3/uL (2.7-7.7); Platelet Count 289 K/mm3 (150-450); RBC Distribution Width CV 13.3 % (11.6-14.6); RBC Distribution Width SD 47.5 fl (35.1-43.9); Red Blood Count 4.05 M/mm3 (4.2-5.4); White Blood Count 10.7 K/mm3 (4.4-11.0)
[2020-11-20 21:03] LABS: ALB/GLOB Ratio 0.9 RATIO (0.9-2.4); AST(SGOT) 22 U/L (15-37); Alanine Aminotransfer ALT/SGPT 22 U/L (13-56); Albumin, Serum 3.4 g/dL (3.2-5.0); Alkaline Phosphatase 95 U/L (45-117); Anion Gap 6 (5-15); BUN 16 mg/dL (7-18); BUN/Creat Ratio 18.6 RATIO (10-20); Chloride 102 mmol/L (98-107); Creatinine, Serum 0.86 mg/dL (0.55-1.02); EST Glomerular Filtration Rate 69 mL/min (>60); Est Glom Filt Rate - Afr Amer 84 mL/min (>60); Estimated Creatinine Clearance 54.77 ml/min; Globulin 3.8 g/dL (2.2-4.2); Glucose 101 mg/dL (74-106); Protein, Total 7.2 g/dL (6.4-8.2); Sodium Level 139 mmol/L (136-145)
[2020-11-20 21:11] LABS: Erythrocyte Sedimentation Rate 29 mm/hr (0-30)
[2020-11-20 21:38] VITALS: BP 165/78; PULSE 53; RESP 16; O2SAT 99
[2020-11-20] MEDS: HYDROcodone Bitartrate/Apap 5/325 Tablet PO (21:49)
== END 2020-11-20 21:55 | disposition home or self-care (01) ==
PROVIDERS: Emergency Provider Emergency Medicine; PCP Student in an Organized Health Care Education/Training Program
DX: H53.8 Other visual disturbances (principal); R51.9 Headache, unspecified; M35.3 Polymyalgia rheumatica; Z79.52 Long term (current) use of systemic steroids; Z72.0 Tobacco use
CPT/HCPCS: 70450; 80053; 85025; 85652; 86140; 99285; A4216

== ENCOUNTER 2021-08-22 10:21 | Outpatient (CLI) | payer MEDICARE, OTHER, SELFPAY ==
[2021-08-25 10:23] LABS: Fats, Neutral Normal (.); Fats, Total Normal (.)
== END 2021-08-22 23:59 | disposition short-term general hospital (02) ==
LOC: MTLAB 10:24 → LABSPEC 10:26
PROVIDERS: PCP Student in an Organized Health Care Education/Training Program; Referring Provider Internal Medicine Gastroenterology; Visit Provider Internal Medicine Gastroenterology
DX: R19.7 Diarrhea, unspecified (principal)
CPT/HCPCS: 82705

== ENCOUNTER → 2022-03-27 | Outpatient (CLI) | payer MEDICARE, OTHER, SELFPAY ==
--- NOTE | 2022-03-27 14:05 | CT_ITS ---
STUDY: CT ABDOMEN AND PELVIS WITH CONTRAST REASON FOR EXAM: Female, 71 years old. Chronic intermittent left lower quadrant pain. RADIATION DOSAGE (If Supplied By Facility): CTDIvol = ( 11.74 ) mGy, DLP = ( 459.44 ) mGycm TECHNIQUE: Transaxial images were obtained from the dome of the diaphragm to the symphysis pubis with oral contrast. Oral and amp; IV Readi-CAT and amp; 100mL Isovue-370 was administered. Sagittal and coronal images were reconstructed. Individualized dose optimization techniques were used for this CT. COMPARISON: None. FINDINGS: The visualized lung bases are unremarkable. The visualized portions of the heart are within normal limits. Normal liver. The patient is status post cholecystectomy. Normal spleen. Normal pancreas. Normal bilateral adrenal glands. Normal right kidney. Normal left kidney. Normal visualized stomach. Normal small intestine. There is diverticulosis, with thickening of the colon wall, and mild pericolonic inflammation changes consistent with acute diverticulitis. Prior appendectomy. Normal abdominal aorta. Normal inferior vena cava. Normal retroperitoneum. Normal urinary bladder. There is absence of the uterus consistent with a prior hysterectomy. Normal abdominal wall. Loss of height of the superior endplate of the L4 vertebrae with the irregularity of the anterior superior aspect of the L4 vertebra suggestive of old trauma. CT/Abdomen/Pelvis WITH Contrast IMPRESSION: Sigmoid diverticulosis with mild degree of diverticulitis. No fluid collection or perforation is seen. Electronically Signed: Franky Gardner MD at 15:35 EDT ,
[2022-03-27 14:40] LABS: CREATININE FINGERSTICK < 0.9 mg/dL (0.55-1.02); EGFR FINGERSTICK > 60.0000 mL/min (>60)
== END | disposition home or self-care (01) ==
PROVIDERS: PCP Student in an Organized Health Care Education/Training Program; Referring Provider Internal Medicine Gastroenterology; Visit Provider Internal Medicine Gastroenterology
DX: R10.32 Left lower quadrant pain (principal); G89.29 Other chronic pain; R19.7 Diarrhea, unspecified; Z90.49 Acquired absence of other specified parts of digestive tract
CPT/HCPCS: 74177; Q9967; A4216

== ENCOUNTER → 2023-04-30 | Outpatient (CLI) | payer MEDICARE, OTHER, SELFPAY ==
--- NOTE | 2023-04-30 | FLU_PTH ---
PATIENT: CHUY WAY LOC: [facility] U#:[id number] AGE/SX: 73/F ROOM: RE04/30/[address]: Miah Cottrell : 1950 BED: DIS: 04/30/2023 SPEC #: [id number] RECD: 04/30/23 17:25 STATUS: TORRES REQ #: [id number] UMESH: 04/30/23 00:[address]: Will Ruiz DEPT: CYTOLOGY RECD BY: Antonieta Vital ENTERED: 05/01/23 08:50 SP TYPE: Fluid OTHR DR: Dr. Miah Cottrell, DO Miah Cottrell Tissues: A - Thyroid gland, NOS B - Thyroid gland, NOS Procedures: Gen Path Consultation (on slides) Special Stain Group II Surgery Specimen Level IV Cytospin Fluid Cytology Other Comments: @ Ordering doctor for SSII edited from VICTORIANO to @ by SARTHAK at 05/01/23 1415 @ Ordering doctor for SUIV edited from VICTORIANO to DR.DPEABO Kaplan by SARTHAK at 05/01/23 1415 @ Ordering doctor for CYSPIN edited from VICTORIANO to DR.DPEABO Kaplan by SARTHAK at 05/01/23 1415 @ Ordering doctor for CYOTHER edited from VICTORIANO to @ by SARTHAK at 05/01/23 1415 @ Submitting doctor edited from VICTORIANO to DR.DPEABO Kaplan by SARTHAK at 05/01/23 1415 HEADER OPERATION: Fine needle aspiration, right mid thyroid PRE-OP DIAGNOSIS: Multinodular goiter TISSUE SUBMITTED: A - Right thyroid fluid, B - Right thyroid x12 slides DIAGNOSIS CYTOLOGY A & B. Right thyroid fluid and right thyroid smears, fine needle aspiration (smears, cytospin and cell block): Category IV. Suspicious for follicular neoplasm, oncocytic type. See comment. SJ:lili 05/02/2023 SJ:lili 05/08/2023 COMMENT A & B. The specimen is sent to [facility] for expert opinion, reviewed by Dr. Reza and the above diagnosis is rendered. Dr. Reza also commented, the specimen is moderately cellular, consistent of oncocytic follicular cells and scanty macrophages. Adenomatous nodule with oncocytic changes is also in consideration. Clinical correlation is recommended. The complete report is viewable in the patient's EMR. The [place] System for thyroid diagnostic categorization was used in the evaluation of this case. Multi-gene next-generation sequencing panel ([employer]) is recommended for this lesion. This recommendation was communicated to the physician's office. Case has been reviewed in consultation with Dr. Pedroza who concurs with the above diagnosis. IDC:AM CYTOLOGY STUDY Slides are reviewed. CYTOLOGY GROSS A - Received is 30 ml of light brown cloudy fluid labeled with the patient's name and and designated per the requisition as right mid thyroid. Submitted for cytology preparation including cell block. B - Received are 12 smears labeled with the patient's name and designated per the requisition as right mid thyroid. Submitted for staining. / lili 05/01/2023 TC:5 CPT: 14383 x2, 97099
--- NOTE | 2023-04-30 | FLU_PTH ---
PATIENT: CHUY WAY LOC: [facility] U#:[id number] AGE/SX: 73/F ROOM: RE04/30/[address]: Miah Cottrell : 1950 BED: DIS: 04/30/2023 SPEC #: [id number] RECD: 04/30/23 17:25 STATUS: TORRES REQ #: [id number] UMESH: 04/30/23 00:[address]: Will Ruiz DEPT: CYTOLOGY RECD BY: Antonieta Vital ENTERED: 05/01/23 08:50 SP TYPE: Fluid OTHR DR: Dr. Miah Cottrell, DO Miah Cottrell Tissues: A - Thyroid gland, NOS B - Thyroid gland, NOS Procedures: Gen Path Consultation (on slides) Special Stain Group II Surgery Specimen Level IV Cytospin Fluid Cytology Other Comments: @ Ordering doctor for SSII edited from VICTORIANO to @ by SARTHAK at 05/01/23 1415 @ Ordering doctor for SUIV edited from VICTORIANO to DR.DPEABO Kaplan by SARTHAK at 05/01/23 1415 @ Ordering doctor for CYSPIN edited from VICTORIANO to DR.DPEABO Kaplan by SARTHAK at 05/01/23 1415 @ Ordering doctor for CYOTHER edited from VICTORIANO to @ by SARTHAK at 05/01/23 1415 @ Submitting doctor edited from VICTORIANO to DR.DPEABO Kaplan by SARTHAK at 05/01/23 1415 HEADER OPERATION: Fine needle aspiration, right mid thyroid PRE-OP DIAGNOSIS: Multinodular goiter TISSUE SUBMITTED: A - Right thyroid fluid, B - Right thyroid x12 slides DIAGNOSIS CYTOLOGY A. 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 Adequate for evaluation. See comment. B. 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 Adequate for evaluation. See comment. SJ:rg 05/02/2023 COMMENT A & B. The smears are cellular, findings may represent adenomatoid nodule with Hurthle cell features. Significant atypia is not seen. Correlation with clinical, radiologic findings and appropriate follow up are necessary. The [place] System for thyroid diagnostic categorization was used in the evaluation of this case. CYTOLOGY STUDY Slides are reviewed. CYTOLOGY GROSS A - Received is 30 ml of light brown cloudy fluid labeled with the patient's name and and designated per the requisition as right mid thyroid. Submitted for cytology preparation including cell block. B - Received are 12 smears labeled with the patient's name and designated per the requisition as right mid thyroid. Submitted for staining. / lili 05/01/2023 TC:5 CPT: 82853 x2, 77767
== END | disposition home or self-care (01) ==
LOC: LABSPEC 17:25
PROVIDERS: PCP Student in an Organized Health Care Education/Training Program; Visit Provider Student in an Organized Health Care Education/Training Program
DX: E04.2 Nontoxic multinodular goiter (principal)
CPT/HCPCS: 88108; 88161; 88305; 88313; 88325

== ENCOUNTER → 2023-10-25 | Outpatient (CLI) | payer MEDICARE, OTHER, SELFPAY ==
--- NOTE | 2023-10-25 19:30 | CT_ITS ---
HISTORY: LLQ pain. TECHNIQUE: Helically acquired images were obtained of the abdomen and pelvis after the intravenous administration of 100 mL Isovue 300. Readi-CAT also administered orally. A radiation dose optimization technique was used for this scan. 375 images. COMPARISON: 03/27/2022. FINDINGS: LOWER CHEST: Incompletely imaged 4 mm left lower lobe nodule. BOWEL: Bowel nondilated. Appendix not visualized. Colonic diverticulosis with mild wall thickening of the sigmoid colon but no pericolonic stranding. PERITONEUM: No free air, pericolonic fluid collection, or significant ascites. LIVER/SPLEEN: No enhancing mass. Calcified granulomas. GALLBLADDER/BILIARY TREE: Cholecystectomy. PANCREAS/KIDNEYS/ADRENAL GLANDS: Unremarkable. VESSELS: Mildly ectatic aorta without aneurysm. Atherosclerosis noted. PELVIC ORGANS: Absent uterus. BONES: Mild degenerative change. Chronic mild L4 compression fracture. CT/Abdomen/Pelvis WITH Contrast IMPRESSION: Mild wall thickening of the sigmoid colon from mild colitis or sequela of diverticulitis. No perforation or abscess. Incompletely imaged 4 mm left lower lobe pulmonary nodule; consider follow-up dedicated CT chest. Electronically Signed: Courtney Warren MD at 14:21 EST ,
[2023-10-25 19:59] LABS: CREATININE FINGERSTICK < 1.0 mg/dL (0.55-1.02); EGFR FINGERSTICK > 60.0000 mL/min (>60)
== END | disposition home or self-care (01) ==
LOC: CT 19:24
PROVIDERS: PCP Student in an Organized Health Care Education/Training Program; Referring Provider Internal Medicine Gastroenterology; Visit Provider Internal Medicine Gastroenterology
DX: R10.32 Left lower quadrant pain (principal); K57.92 Diverticulitis of intestine, part unspecified, without perforation or abscess without bleeding
CPT/HCPCS: 74177; Q9967

== ENCOUNTER → 2025-05-26 | Outpatient (CLI) | payer MEDICARE, OTHER, SELFPAY ==
[2025-05-26 15:22] LABS: Anion Gap 11 (5-15); BUN 12 mg/dL (4-19); BUN/Creat Ratio 17.3 RATIO (10-20); Calcium,Total 8.6 mg/dL (7.6-11.0); Carbon Dioxide 24.3 mmol/L (21.0-32.0); Chloride 107 mmol/L (98-108); Glucose 99 mg/dL (70-99); Potassium 3.6 mmol/L (3.3-5.1)
== END | disposition home or self-care (01) ==
LOC: MTLAB 12:40
PROVIDERS: PCP Student in an Organized Health Care Education/Training Program; Referring Provider Urology; Visit Provider Urology
DX: R31.0 Gross hematuria (principal)
CPT/HCPCS: 36415; 80048; 88108; 88313

== ENCOUNTER → 2025-05-26 | Outpatient (CLI) | payer MEDICARE, OTHER, SELFPAY ==
--- NOTE | 2025-05-26 12:15 | CYSPIN_PTH ---
PATIENT: CHUY WAY LOC: [facility] U#:[id number] AGE/SX: 75/F ROOM: RE05/26/[address]: Dr. Madeline Obrien MD : 1950 BED: DIS: 05/26/2025 SPEC #: [id number] RECD: 05/27/25 08:37 STATUS: TORRES REMely #: [id number] UMESH: 05/26/25 12:[address]: Madeline Obrien DEPT: CYTOLOGY RECD BY: Antonieta Vital ENTERED: 05/27/25 08:38 SP TYPE: CYSPIN FL OTHR DR: Dr. Miah Cottrell, DO Tissues: Urine Procedures: Pap Stain (control) Special Stain Group II Cytospin Fluid HEADER OPERATION: Not noted PRE-OP DIAGNOSIS: Gross hematuria TISSUE SUBMITTED: A- Urine for cytology DIAGNOSIS CYTOLOGY A. Urine, cytology: No malignant cells are identified CYTOLOGY STUDY Slides are reviewed. CYTOLOGY GROSS A. Received is 30 ml of yellow-cloudy fluid labeled with the patient's name and and designated per the requisition as urine. Submitted for cytology preparation. Mr 05/27/2025 CPT: 17000
[2025-05-26 18:59] LABS: Cytology, Body Fluid / CSF SEE PATHOLOGY REPORT
== END | disposition home or self-care (01) ==
LOC: LABSPEC 18:56
PROVIDERS: PCP Student in an Organized Health Care Education/Training Program; Visit Provider Urology
DX: R31.0 Gross hematuria (principal)
CPT/HCPCS: 88108; 88313

== ENCOUNTER → 2025-06-01 | Outpatient (CLI) | payer MEDICARE, OTHER, SELFPAY ==
--- NOTE | 2025-06-01 16:10 | CT_ITS ---
PROCEDURE: CT ABD/PELVIS W/WO CONTRAST 06/01/2025 REASON FOR EXAM: GROSS HEMATURIA, SMOKER History of uterine cancer. TECHNIQUE: Procedure Code: [id number] Modality: CT Procedure: CT ABD/PELVIS W/WO CONTRAST Coronal and Sagittal reconstruction series were provided. CONTRAST: Isovue-300 VOLUME: 100 mL One or more dose reduction techniques were used (e.g., Automated exposure control, adjustment of the mA and/or kV according to patient size, use of iterative reconstruction technique. RADIATION DOSE SUMMARY: CTDlvol: 55 mGy DLP: 1701.60 mGycm COMPARISON: None. FINDINGS: Lung bases: The lung bases are clear. There are no pleural effusions. The heart size is normal. There is no pericardial effusion. There is minimal calcific vascular disease of the coronary arteries. There is moderate calcific vascular disease of the visualized thoracic aorta. Liver: Normal size. No mass. There are benign calcified granulomas. Gallbladder: Surgically absent. Spleen: Normal size. There are benign calcified granulomas. Pancreas: Normal size without evidence of mass surrounding inflammation or ductal dilation. Adrenals: Normal. Kidneys: Normal renal sizes. No hydronephrosis. Bladder: Normal. There are no filling defects identified. Reproductive Organs: The uterus is surgically absent. The ovaries are not identified. There is no free fluid in the pelvis. There is no inguinal lymphadenopathy. Bowel: There is severe sigmoid diverticulosis without diverticulitis. There are scattered diverticuli throughout the remainder of the colon. Appendix: Surgically absent Lymph nodes: No suspicious lymph node enlargement. Vasculature: There is diffuse calcific vascular disease of the abdominal aorta. The inferior vena cava and portal venous system are unremarkable. Peritoneum / Retroperitoneum: There are no abnormal intra or retroperitoneal masses or fluid collections. Bones: There is mild compression of the superior endplate of L3. There is degenerative disc disease, L3-4 and L4-5. CT/CT Abd/Pelvis W/WO Contrast IMPRESSION: 1. No evidence of metastatic disease. 2. Calcific vascular disease. 3. Sigmoid diverticulosis. 4. Other findings as noted. Reading Location: [place] [id number]
== END | disposition home or self-care (01) ==
LOC: CT 15:52
PROVIDERS: PCP Student in an Organized Health Care Education/Training Program; Referring Provider Urology; Visit Provider Urology
DX: R31.0 Gross hematuria (principal)
CPT/HCPCS: 74178; Q9967; A4216

== ENCOUNTER 2025-06-18 06:38 | Day surgery (SDC) | payer MEDICARE, OTHER, SELFPAY ==
[2025-06-16 11:54] LABS: Hematocrit 39.4 % (37-47); Hemoglobin 13.2 g/dL (12.0-15.0); Mean Corp Hgb Conc 33.5 g/dL (32-36); Mean Corpuscular Volume 97.3 fL (81-99); Mean Platelet Vol. 10.4 fl (6.2-12.0); Platelet Count 308 K/mm3 (150-450); RBC Distribution Width CV 13.3 % (11.6-14.6); RBC Distribution Width SD 48.1 fl (35.1-43.9); Red Blood Count 4.05 M/mm3 (4.2-5.4); White Blood Count 11.9 K/mm3 (4.4-11.0)
[2025-06-16 12:02] LABS: Prothrombin Time (Protime)PT. 14.0 SECONDS (11.7-14.9)
[2025-06-16 12:03] LABS: Partial Thromboplast Time 29.8 Seconds (24.1-36.2)
[2025-06-16 12:59] LABS: AST(SGOT) 23 U/L (<=31); Alanine Aminotransfer ALT/SGPT 12 U/L (<=34); Albumin, Serum 4.1 g/dL (3.4-4.8); Alkaline Phosphatase 69 U/L (35-104); Bilirubin, Direct 0.16 mg/dL (0.00-0.30); Globulin 3.3 g/dL (2.2-4.2)
[2025-06-16 13:03] LABS: Anion Gap 11 (5-15); BUN 14 mg/dL (4-19); BUN/Creat Ratio 19.5 RATIO (10-20); Calcium,Total 9.0 mg/dL (7.6-11.0); Carbon Dioxide 26.1 mmol/L (21.0-32.0); Chloride 104 mmol/L (98-108); Glucose 93 mg/dL (70-99); Potassium 3.8 mmol/L (3.3-5.1)
[2025-06-18] VITALS (8 sets, daily range): BP systolic 119–135; BP diastolic 51–61; PULSE 53–65; RESP 16; TEMP 36.1–36.4; O2SAT 94–100; BMI 24.4
[2025-06-18] MEDS: Lactated Ringers 1,000 ML 15 ML IV (07:01)
--- NOTE | 2025-06-18 07:37 | PCM.PRE.AN2 ---
ASA Classification* ASA Classification ASA Classification: 2 Assessment & Plan Anesthesia* Anesthesia Assessment Anesthesia Assessment: Discussed sedation and/or anesthesia options, risks, benefits, and alternatives with patient/parents/legal guardian/POA. Questions invited. The patient/parents/legal guardian/POA seems to understand and agrees to proceed with anesthesia plan. Reviewed the physical assessment, medical history, allergy history and patient home medications list prior to surgery/procedure/anesthetic and documented any changes. Performed airway and anesthesia risk assessments. Anesthesia Type Anesthesia Type: MAC History Source History Obtained from:: Patient and Chart Anesthesia Focused Assessment* Temperature: 97.2 F Pulse Rate: 65 Blood Pressure: 131/61 Respiratory Rate: 16 Pulse Ox: 99 Oxygen Delivery Method: Room Air Airway Assessment Mouth opens: >3 cm Mallampati Score: III Teeth Condition: Dentures (Patient has full upper plate. It will stay in.) Neck Range of motion (ROM): Limited ROM (Slight Decrease) Comment: Short thyromental distance Labs Anesthesia Preop lab: CBC WBC, (4.4-11.0) 11.9 K/mm3 H 06/16/25, 11:07 RBC, (4.2-5.4) 4.05 M/mm3 L 06/16/25, 11:07 Hgb, (12.0-15.0) 13.2 g/dL 06/16/25, 11:07 Hct, (37-47) 39.4 % 06/16/25, 11:07 Plt Count, (150-450) 308 K/mm3 06/16/25, 11:07 CHEMISTRY Potassium, (3.3-5.1) 3.8 mmol/L 06/16/25, 11:07 Sodium, (133-145) 141 mmol/L 06/16/25, 11:07 Magnesium, (1.8-2.4) 1.9 mg/dL 04/05/14, 13:00 Phosphorus, (2.5-4.9) 2.9 mg/dL 05/02/17, 06:06 BUN, (4-19) 14 mg/dL 06/16/25, 11:07 Creatinine, (0.70-1.20) 0.71 mg/dL 06/16/25, 11:07 Glucose, (70-99) 93 mg/dL 06/16/25, 11:07 TSH, (0.358-3.74) 0.27 uIU/mL L 04/05/14, 13:00 COAG PT, (11.7-14.9) 14.0 SECONDS 06/16/25, 11:07 Pre-Assessment Diagnosis/Proposed Procedure Planned Operative Procedure(s): Cysto, Bladder Biospy, WITH FULGURATION Anesthesia History Anesthesia History - wool and pelt grader: Anesthesia History - wool and pelt grader Hx Hospitalization No 06/12/25 15:17 Any Problems With Anesthesia No 06/12/25 15:17 Cholinesterase deficiency No 06/12/25 15:17 You/Your Family Experience No 06/12/25 15:17 fever (hyperthermia) with Relationship Recent Exposure to Contagious No 06/18/25 06:54 Disease Does patient have nerve No 06/12/25 15:17 stimulator Patient instructed to have device shut off --Does patient have Pacemaker No 06/18/25 06:54 or ICD? When Was Last Pacemaker Check QUESTION #4 FULL TEXT: You/Your Family Experience fever (hyperthermia) with Anesthesia Last Oral Intake Last Oral intake: Last Oral Intake NPO since 182906/18/25 06:54 Meds taken in AM with sips of water? Meds patient instructed to take am of surgery Any additional information?: Yes NPO since: 06:00 Meds taken in AM with sips of water?: Yes PONV PONV - wool and pelt grader: PONV - wool and pelt grader Female Yes 06/12/25 15:17 HX of Motion Sickness No 06/12/25 15:17 HX of N/V After Surgery No 06/12/25 15:17 Non-Smoker No 06/12/25 15:17 Duration of Surgery greater Yes 06/12/25 15:17 than 60 minutes Number of Risk Factors 2 06/12/25 15:17 PONV Score Moderate Risk 06/12/25 15:17 Height & Weight Height & Weight: Anesthesia: Height & Weight Height 5 ft 3 in 06/18/25 06:54 Weight: 62.596 kg 06/18/25 06:54 Body Mass Index (BMI) 24.4 06/18/25 06:54 Respiratory Assessment Respiratory Assessment - wool and pelt grader: Respiratory Tract Infection Hx - wool and pelt grader Hx Respiratory Tract Infection No 06/12/25 15:17 STOP Sleep Apnea STOP Sleep Apnea - wool and pelt grader: STOP Sleep Apnea - wool and pelt grader Hx Hypertension No 06/12/25 15:17 Hx Sleep Apnea No 06/12/25 15:17 CPAP BIPAP Do you snore loudly (louder No 06/12/25 15:17 than talking or can be heard Do you often feel tired/ No 06/12/25 15:17 fatigued/ sleepy during daytime? Has anyone observed you stop No 06/12/25 15:17 breathing during sleep? STOP Results Negative 06/12/25 15:17 QUESTION #5 FULL TEXT : Do you snore loudly (louder than talking or can be heard through closed doors)? 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 Specify any problems Hx of Preganancy in last 3 No 06/12/25 15:17 Months Nurse Filling Out Transfusion MGRIFFITH 06/12/25 15:17 & Questions: Date: 06/12/25 06/12/25 15:17 Time: 15:21 06/12/25 15:17 Patient unable to answer at this time (ie. confused, unrespo /Reproduction History /Reproductive History - wool and pelt grader: /Reproductive Hx- wool and pelt grader Hx Now Gestational Age (in weeks): EDC: Hx Hx Para Hx Section SAB Active Medications Active Medications: Current Medications Generic Name Dose Route Start Last Admin Trade Name Freq PRN Reason Stop Dose Admin Cefazolin Sodium 2 gm/ Sodium 110 mls @ 200 mls/hr 06/18/25 08:20 Chloride IV 06/18/25 08:52 INTRAOP ONE Lactated Ringer's 1,000 mls @ 15 mls/hr 06/18/25 06:45 06/18/25 07:01 IV 15 mls/hr .Q48H BRENDA Administration PFSH Medical History Wears dentures History of steroid therapy History of diverticulitis Smoker Ulcer Polycystic ovaries IBS (irritable bowel syndrome) Hypoglycemia GI problem Glaucoma Gallstones Cataracts, bilateral Cancer Breast lump Bone fracture Arthritis Tremor Bartholin cyst History of uterine cancer Osteoarthritis GERD (gastroesophageal reflux disease) Chest pain at rest Giant cell arteritis with polymyalgia rheumatica Home Medications ?Medication ?Instructions ?Recorded ?Last Taken ?Type prednisone 10 mg tablet 10 mg PO DAILY 04/05/14 06/18/25 History metoprolol succinate 50 mg 25 mg PO DAILY tremors 07/02/20 06/17/25 08:30 History tablet,extended release 24 hr cholestyramine-aspartame 4 gram 4 gm PO BID 11/20/20 Unknown History oral powder loperamide 2 mg capsule 2 mg PO 4X/DAY PRN PRN Diarrhea 11/20/20 Unknown History denosumab 60 mg/mL subcutaneous 60 mg subcut [id number] 05/26/25 Unknown History syringe (Prolia) latanoprost 0.005 % eye drops 1 drp ophthalmic (eye) QHS 05/26/25 Unknown History primidone 250 mg tablet 250 mg PO QHS TREMORS 06/12/25 Unknown History Allergy/AdvReac Type Severity Reaction Status Date / Time No Known Allergies Allergy Verified 06/18/25 06:54 Family History Brother Cancer liver and lymphoma Sister Cancer lung Diabetes Father Diabetes Heart disease Myocardial infarction Mother Heart disease Other Anesthesia complication Arthritis Bleeding disorder H/O transfusion of whole blood Hypertension Kidney disease Melanoma Surgical History History of medial meniscus repair of left knee History of right breast biopsy Status post fine needle aspiration History of breast biopsy (~07/2018) History of appendectomy Status post ORIF of fracture of ankle history of ulnar nerve transplant History of arthroplasty of left shoulder History of colonoscopy History of partial hysterectomy history of bartholin cyst removal Social History Smoking Status: Current every day smoker tobacco type: cigarettes alcohol intake: never substance use type: does not use what type of physical activity do you participate in: none do you feel safe at home: Yes Review of Systems (Anesthesia) ROS Narrative System reviewed and no additional complaints, except as documented.
--- NOTE | 2025-06-18 07:41 | HP.PCM_ITS ---
History and Physical
--- NOTE | 2025-06-18 07:41 | PCM.HP.BLA ---
History and Physical Date of Admission: 06/18/25 Date of Service: 06/09/25 MR#: [id number] Acct: [id number] Name: CHUY WAY Rep #: [id number] : 1950 Provider: Dr. 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 Required: No Accompanied by: self Is patient in pain?: No Allergies No Known Allergies Allergy (Verified 06/09/25 13:54) Medications ?Medication ?Instructions ?Recorded ?Confirmed ?Type prednisone 10 mg tablet 10.5 mg PO DAILY 04/05/14 06/09/25 History metoprolol succinate 50 mg 25 mg PO BID tremors 07/02/20 06/09/25 History tablet,extended release 24 hr cholestyramine-aspartame 4 gram 4 gm PO BID 11/20/20 06/09/25 History oral powder loperamide 2 mg capsule 2 mg PO 4X/DAY PRN PRN Diarrhea 11/20/20 06/09/25 History primidone 50 mg tablet 50 mg PO DAILY 11/20/20 06/09/25 History denosumab 60 mg/mL subcutaneous 60 mg subcut [id number] 05/26/25 06/09/25 History syringe (Prolia) latanoprost 0.005 % eye drops 1 drp ophthalmic (eye) QDAY 05/26/25 06/09/25 History Have you fallen in the past year?: No PFSH Medical History Ulcer Polycystic ovaries IBS (irritable bowel syndrome) Hypoglycemia Hypertension GI problem Glaucoma Gallstones Cataracts, bilateral Cancer Breast lump Bone fracture Arthritis Tremor Bartholin cyst History of uterine cancer Osteoarthritis GERD (gastroesophageal reflux disease) Chest pain at rest Giant cell arteritis with polymyalgia rheumatica Surgical History History of right breast biopsy Status post fine needle aspiration History of breast biopsy (~07/2018) History of appendectomy Status post ORIF of fracture of ankle history of ulnar nerve transplant History of arthroplasty of left shoulder History of colonoscopy History of partial hysterectomy history of bartholin cyst removal Family History Brother Cancer liver and lymphoma Sister Cancer lung Diabetes Father Diabetes Heart disease Myocardial infarction Mother Heart disease Other Anesthesia complication Arthritis Bleeding disorder H/O transfusion of whole blood Hypertension Kidney disease Melanoma Social History Smoking Status: Current every day smoker alcohol intake: never substance use type: does not use what type of physical activity do you participate in: none do you feel safe at home: Yes HPI HPI Urology Chief Complaint: cystoscopy and pelvic exam Details: CHUY WAY, is a 75 F. She is here for cystoscopy and pelvic exam today. She has no sign of acute urinary tract infection today. She denies hematuria. Questions regarding the procedure were answered and she gives consent to proceed. She is ready to start a medication for her urgency and frequency. ROS Const Constitutional: No chills, fatigue, fever(s), headache(s), night sweats, weakness, weight change, abnormal sleep pattern or change in appetite Eyes Eyes: No change in vision ENT ENT: No headache(s) or dry mouth Resp Respiratory: No cough, chest congestion, shortness of breath or wheezing Cardio Cardiology: Positive for other (No chest pain.); No shortness of breath, irregular heart rhythm or lightheadedness Gastro GI: Positive for other (No nausea.); No abdominal pain, change in bowel habits, constipation, diarrhea or vomiting Musc Musculoskeletal: No abnormal gait Skin Skin: No yellowing of the eye, lesions, itchy eyes, rash or skin ulcer Neuro Neurology: No abnormal gait, confusion, dizziness, weakness, headache(s) or memory loss Psych Psychiatric: No abnormal sleep pattern, No change in appetite, No confusion and No memory loss Endo Endocrine: No fatigue, increased thirst/drinking or weight change Aller/Imm Allergy/Immunologic: No itchy eyes or wheezing Lane/Lymp Hematologic/Lymphatic: No easy bleeding, easy bruising or enlarged lymph nodes Exam Const General: cooperative, healthy appearing, comfortable and no acute distress HENMT Head: normocephalic and atraumatic Ears: hearing grossly normal bilaterally and external ears normal Nose: external nose normal Eyes General: appearance normal, both eyes and all related structures Neck Neck: normal visual inspection and trachea midline Chest Chest palpation & inspection: normal inspection of the chest Resp Effort & Inspection: normal respiratory effort, able to speak in complete sentences and symmetric chest movement Cardio Rate: regular rate GI Inspection: normal to inspection Palpation: soft and nontender General: No CVA tenderness External Female Exam: normal external appearance and normal appearance of the urethra Urethra: normal appearance of the urethra Speculum Exam - Vagina: vagina atrophic and no masses Bimanual Exam- Adnexa, other: apex supported Recto-Vaginal: other (no stool in rectal vault) Pelvic Support: no cystocele, no rectocele and apex supported Skin General: no rashes or lesions noted Neuro General: patient alert, patient awake, patient oriented x3 and CN's II-XI intact bilaterally Extrem General: normal to inspection Psych Appearance: grossly normal and well kempt Mental Status: mental status grossly normal Office Procedures Cystoscopy Procedure Completed: Yes Cystoscopy: The patient was placed into dorsal lithotomy position, and was cleaned in usual sterile fashion. The urethra was anesthetized with 2% lidocaine jelly. The cystoscope was inserted through the urethra under direct visualization. No urethral abnormalities were detected. The bladder in its entirety was inspected. The ureteral orifices were identified bilaterally in correct anatomic position. The following were identified: no ulceration or foreign body. There is a 1cm right lateral wall lesion that is erythematous and irregular. Possible squamous metaplasia with white plaque at the trigone. No debris consistent with keratin. The cystoscope was removed, and the procedure was terminated. The patient tolerated the procedure well without complication or difficulty. Results POC UA Auto w/o Microscopy Office Urine Color ? Last Edit by Angelica Tavarez on 06/09/25 13:58 Office Urine Clarity ? Last Edit by Angelica Tavarez on 06/09/25 13:58 Office Urine Glucose Negative Last Edit by Angelica Tavarez on 06/09/25 13:58 Office Urine Ketones Trace (5) Last Edit by Angelica Tavarez on 06/09/25 13:58 Office Urine Bilirubin Negative Last Edit by Angelica Tavarez on 06/09/25 13:58 Office Urine Urobilinogen 0.2 mg/dL Last Edit by Angelica Tavarez on 06/09/25 13:58 Off Ur Spec [place] 1.010 Last Edit by Angelica Tavarez on 06/09/25 13:58 Office Urine pH 7.5 Last Edit by Angelica Tavarez on 06/09/25 13:58 Office Urine Protein Negative Last Edit by Angelica Tavarez on 06/09/25 13:58 Office Urine Blood Large Last Edit by Angelica Tavarez on 06/09/25 13:58 Office Urine Blood Hemolyzed Negative Last Edit by Angelica Tavarez on 06/09/25 13:58 Office Urine Nitrate Negative Last Edit by Angelica Tavarez on 06/09/25 13:58 Off Ur Leukocytes Negatve Last Edit by Angelica Tavarez on 06/09/25 13:58 Supplemental Info CTU no urologic pathology, cytology negative for cancer cells Coding Level of Care Code Off vis,est,level 4 Diagnoses Gross hematuria R31.0 Overactive bladder N32.81 Nocturia R35.1 Urge incontinence N39.41 Vaginal atrophy N95.2 Assessment and Plan Assessment and Plan (1) Gross hematuria: Status: Acute (2) Overactive bladder: Status: Acute (3) Nocturia: Status: Acute (4) Urge incontinence: Status: Acute (5) Vaginal atrophy: Status: Acute Orders: Orders POC UA Auto w/o Microscopy Today R31.0 - Gross hematuria Cysto Today R31.0 - Gross hematuria Plan schedule cystoscopy with bladder biopsy and fulguration under anesthesia Gemtesa trial, side effects discussed voiding diary The procedure, recovery and expectations were explained. The risks, benefits and alternatives were discussed, including but not limited to, the risks of anesthesia, bleeding, infection, injury, pain and the need for further intervention. We have discussed the risk of exposure to and/or potential harm posed by the COVID-19 virus with having a surgery/procedure at this time. A joint decision was made at this time to proceed with the scheduled surgery/procedure as indicated on the consent form. Plan Details Follow Up: schedule OR (Gemtesa samples today) Clinical Quality Measures Falls Risk Screening/Assistive Devices Have you fallen in the past year?: No 06/09/25 [id number] <Electronically signed by Madeline Obrien MD> Date [facility]
[2025-06-18] MEDS: Cefazolin 1 GM/5 ML Vial 2 GM IV (08:07)
--- NOTE | 2025-06-18 08:08 | DCINST_ITS ---
Discharge Instructions
--- NOTE | 2025-06-18 08:08 | EX.PCM.DISCH ---
Discharge Instructions Diet Discharge Diet: No restrictions Activity Discharge Activity: Return to Normal Activity Dressing / Incision Call your doctor if you observe: Fever of 101 or Higher, Inability to urinate and Inability to have a bowel movement Follow Up Care Please Follow Up With: Madeline Obrien MD Test Results: Test results from this visit will be discussed in further detail at your follow-up appointment, if applicable. Discharge Plan Admission Attending Provider: Madeline Obrien Primary Care Provider: Miah Cottrell Instructions Print Language: Cymraes Discharge Orders/Prescriptions Prescriptions: New oxycodone-acetaminophen 5-325 mg tablet 1 tab PO Q8H PRN (Reason: pain) 3 Days Qty: 10 0RF cephalexin 500 mg capsule 500 mg PO Q12 3 Days Qty: 6 0RF Continued latanoprost 0.005 % drops 1 drp ophthalmic (eye) QHS Prolia 60 mg/mL syringe 60 mg subcut [id number] prednisone 10 MG tablet 10 mg PO DAILY Patient Comments: STEROID metoprolol succinate 50 MG tablet extended release 24 hr 25 mg PO DAILY loperamide 2 MG capsule 2 mg PO 4X/DAY PRN PRN (Reason: Diarrhea) cholestyramine-aspartame 239.4 GM powder 4 gm PO BID primidone 250 mg tablet 250 mg PO QHS Referrals / Follow Up: Miah Cottrell DO [Primary Care Provider, Medical] Disposition Disposition (needs filled in before D/C Order can be placed): Home, Self Care
--- NOTE | 2025-06-18 08:10 | OP.PCM_ITS ---
Operative Report (Standard)
--- NOTE | 2025-06-18 08:10 | PCM.OPRPT ---
Operative Report (Standard) Operative Information Date of Procedure: 06/18/25 Pre-Operative Diagnosis: Bladder lesion, gross hematuria Post-Operative Diagnosis: Same Surgery/Procedure Performed: Cystoscopy with biopsy and fulguration gem setter: No Type of Anesthesia: MAC RN Documented Start/Stop Times: Operation Date: 06/18/25 08:20 Case Time Into Pre-Op 06/18/25 06:42 Out of Pre-Op 06/18/25 08:02 Anesthesia Start 06/18/25 08:06 Into Room 06/18/25 08:06 Procedure Start 06/18/25 08:16 Procedure End 06/18/25 08:23 Anesthesia End 06/18/25 08:27 Out of Room 06/18/25 08:27 Into Recovery 06/18/25 08:31 Into Phase II Recovery 06/18/25 08:44 Out of Recovery 06/18/25 08:44 Procedure Start Time: 08:16 Procedure Stop Time: 08:23 Select all DRAINS/GRAFTS/IMPLANTS that apply: None Estimated Blood Loss: 5cc Specimen collected: Yes Description of specimen(s) removed: Bladder biopsy x 3 Description of surgery: The patient was taken to the operating room and placed on the operating room table. Anesthesia monitored the head, neck, airway, IV access and vital signs throughout the case. Once anesthesia was appropriately administered, she was placed into dorsolithotomy position and was prepped and draped in usual sterile fashion. The cystoscope was inserted through the urethra under direct visualization into the urinary bladder. The bladder mucosa and the urethra were visualized in their entirety. The area of concern was identified. It was an approximately 0.75 cm area consistent with an early papillary lesion on the right bladder wall with surrounding erythema. Using biopsy forceps, this tissue was removed and sent for evaluation. This area was then cauterized with a Bugbee for hemostatic control and tissue treatment. No other lesions were identified. At this time the patient's bladder was emptied and the cystoscope was removed. She was awakened and taken to the recovery room in good condition. There were no complications during this procedure. Surgical Findings: 0.75 cm papillary erythematous lesion right bladder wall Complications Complications: No Admit VTE Documentation VTE Present on Admission: Yes VTE Mechan Device Prophylaxis: SCD's VTE Pharm Prophylaxis ordered?: No Reason prophylaxis not ordered: Treatment Not Indicated
[2025-06-18] MEDS: Lidocaine 1% (5 ml sdv) 5 ML Vial 4 ML IV (08:11)
--- NOTE | 2025-06-18 08:20 | BLA_PTH ---
PATIENT: CHUY WAY [place] [facility] [id number] AGE/SX: 75/F ROOM: RE06/18/[address]: Dr. Madeline Obrien MD : 1950 BED: DIS: 06/18/2025 SPEC #: [id number] RECD: 06/18/25 11:15 STATUS: TORRES REMely #: [id number] UMESH: 06/18/25 08:[address]: Madeline Obrien DEPT: SURGICAL PATHOLOGY RECD BY: Aric Nowak ENTERED: 06/18/25 12:31 SP TYPE: BLADDER BX OTHR DR: Dr. Miah Cottrell DO Tissues: A - Urinary bladder, NOS Procedures: Surgery Specimen Level IV HEADER OPERATION: Cysto, bladder, biopsy PRE-OP DIAGNOSIS: Gross hematuria, overactive bladder, nocturia, urge incontinence TISSUE SUBMITTED: A- Bladder lesion MICROSCOPIC DIAGNOSIS A. Bladder, biopsy: - Otis urothelium of normal thickness with acute and chronic inflammation, negative for malignancy. - Focal cystitis glandularis. - Lamina propria present, inflamed and edematous. - No muscularis propria identified. MICROSCOPIC DESCRIPTION Slides are reviewed. GROSS DESCRIPTION A. Received in formalin labeled with the patient's name and date of . Designated as bladder lesion are 3 white, focally erythematous tissue fragments, 0.2 cm to 0.4 cm. Entirely submitted in 1 cassette. MT 06/18/2025 CPT:50494
--- NOTE | 2025-06-18 08:33 | POSTOP.ANE_ITS ---
Anesthesia: Postop Eval I
--- NOTE | 2025-06-18 08:33 | PCM.POST.ANE ---
Anesthesia: Postop Eval I Current Vital Signs Temperature: 97 F Pulse Rate: 56 Blood Pressure: 119/51 Respiratory Rate: 16 Pulse Ox: 100 Oxygen Delivery Method: Room Air Assessment Airway patent: Yes Spontaneous unlabored respirations: Yes Mental status: Awake and Calm nausea: No Vomiting: No Anesthesia Complication: No Fluid Hydration Crystalloid volume administer (ml): 200 Total IV fluid infused: 200 Progress Note Anesthesia document: Postop Eval 1 completed: Yes
--- NOTE | 2025-06-18 11:47 | POSTOPAN2_ITS ---
Anesthesia Postop Eval I Sum
--- NOTE | 2025-06-18 11:47 | PCM.POSTANE2 ---
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.SKOBY Spontaneous unlabored Yes 06/18/25 08:33 EXPOSURE MACHINE OPERATOR.SHANTE respirations Mental status Awake,Calm 06/18/25 08:33 EXPOSURE MACHINE OPERATOR.SKOBY nausea No 06/18/25 08:33 EXPOSURE MACHINE OPERATOR.SKOBY Vomiting No 06/18/25 08:33 EXPOSURE MACHINE OPERATOR.CHRISTIEOBHilda Anesthesia Postop Eval I: Fluid Summary Crystalloid volume administer 200 06/18/25 08:33 EXPOSURE MACHINE OPERATOR.SKOBY (ml) Colloids volume administered ( ml) Blood Product volume administered (ml) Total IV fluid infused 200 06/18/25 08:33 EXPOSURE MACHINE OPERATOR.CHRISTIEOBHilda Anesthesia Postop Eval I: Summary Notes Anesthesia Complication No 06/18/25 08:33 EXPOSURE MACHINE OPERATOR.SHANTE Anesthesia Complication Comment: Post-operative progress note Anesthesia: Postop Eval II Evaluation Mental status: Awake and Calm Pain Level: 1 nausea: No Vomiting: No Complications Anesthesia Complication: No
== END 2025-06-18 09:05 | disposition home or self-care (01) ==
LOC: SDC 06:38 → AC 06:39
PROVIDERS: Anesthesiology; PCP Student in an Organized Health Care Education/Training Program; Referring Provider Urology; Visit Provider Urology
PROC: 0TBB8ZX Excision of Bladder, Via Natural or Artificial Opening Endoscopic, Diagnostic (ICD-10-PCS; CPT 52234; principal; 2025-06-18 08:10)
DX: N30.21 Other chronic cystitis with hematuria (principal); R31.0 Gross hematuria; N32.81 Overactive bladder; R35.1 Nocturia; N39.41 Urge incontinence; I10 Essential (primary) hypertension; K21.9 Gastro-esophageal reflux disease without esophagitis; N95.2 Postmenopausal atrophic vaginitis; Z79.899 Other long term (current) drug therapy; F17.210 Nicotine dependence, cigarettes, uncomplicated
CPT/HCPCS: 52234; 00912; 36415; 80048; 80076; 85027; 85610; 85730; 88305; 93005; J2405

== ENCOUNTER 2025-07-06 10:58 | Emergency (ER) | payer MEDICARE, OTHER, SELFPAY ==
[2025-07-06 10:59] VITALS: BP 115/66; PULSE 91; RESP 18; TEMP 36.9; O2SAT 98; BMI 23.5
--- NOTE | 2025-07-06 11:39 | CT_ITS ---
PROCEDURE: ABDOMEN/PELVIS W IV CONT ONLY 07/06/2025 REASON FOR EXAM: LEFT LOWER QUADRANT ABDOMINAL PAIN TECHNIQUE: Procedure Code: [id number] Modality: CT Procedure: ABDOMEN/PELVIS W IV CONT ONLY Coronal and Sagittal reconstruction series were provided. CONTRAST: 100 cc of Isovue 370 One or more dose reduction techniques were used (e.g., Automated exposure control, adjustment of the mA and/or kV according to patient size, use of iterative reconstruction technique. COMPARISON: CT abdomen and pelvis 06/01/2025 FINDINGS: Lung bases: Mild dependent atelectasis Liver: Normal size. No mass. Stable benign calcified granulomas. Gallbladder: Surgically absent. No biliary ductal dilatation. Spleen: Normal size. Stable benign calcified granulomas. Pancreas: Normal size without evidence of mass surrounding inflammation or ductal dilation. Adrenals: No masses. Kidneys: Normal renal sizes. No hydronephrosis. Bladder: Unremarkable. Reproductive Organs: Prior hysterectomy. Adnexal regions are unremarkable. Bowel: Severe sigmoid diverticulosis without acute diverticulitis. No bowel obstruction. Appendix: Surgically absent. Lymph nodes: No suspicious lymph node enlargement. Vasculature: Diffuse atherosclerotic calcifications. No aneurysm. Peritoneum / Retroperitoneum: No free fluid or air. Bones: Stable mild compression deformity of the superior endplate of L3. Diffuse degenerative changes. No acute fractures. CT/Abdomen/Pelvis W IV Cont ONLY IMPRESSION: 1. Extensive sigmoid diverticulosis without acute diverticulitis. 2. Stable mild compression deformity of L3. 3. No acute findings in the abdomen or pelvis as imaged. Reading Location: [facility]
--- NOTE | 2025-07-06 11:46 | EX.ED.DYSGE1 ---
HPI History of Present Illness Chief Complaint: GI Bleed Narrative Narrative: Chief complaint and HPI: 75-year-old female with past medical history of GI bleed secondary to ulcers, diverticulitis, IBS presents for evaluation of left lower quadrant abdominal pain and GI bleed. Patient states she follows with Dr. Hagen with GI. States for the past 2 weeks she has been having lower abdominal pain with dark bowel movements. Associated symptom is stool incontinence. Patient states she followed up with her GI physician in which she put her on a liquid diet. No plans for endoscopy per her report. Patient denies any fever, chills, shortness of breath, chest pain, dysuria, constipation.Patient not on a blood thinner. Review of systems: See HPI Medications: As listed on the chart Allergies: As listed on the chart PFSH: Per chart Vital signs: As listed on the chart. Reviewed. Physical exam: Gen: A&O x3, NAD Head: Normocephalic, atraumatic Eyes: No sclera icterus, conjunctiva clear ENT: Moist mucous membranes Neck: Trachea midline CV: RRR, no murmurs Resp: Lungs CTA BL, no w/r/c GI: Abd soft, non-distended, mildly tender to palpation left lower quadrant, no rebound or rigidity Rectal: Normal external examination except for black stool present around the anus. No evidence of hemorrhoids or fissures. Normal tone and sensation. No masses, fluctuance, or tenderness. No pain out of proportion. Stool black on gloved finger. Musc: Full ROM, no deformity Skin: Warm, dry Neuro: Alert, oriented, grossly intact, sensation intact Psych: Cooperative, appropriate mood and affect [facility] Medical History Wears dentures History of steroid therapy History of diverticulitis Smoker Ulcer Polycystic ovaries IBS (irritable bowel syndrome) Hypoglycemia GI problem Glaucoma Gallstones Cataracts, bilateral Cancer Breast lump Bone fracture Arthritis Tremor Bartholin cyst History of uterine cancer Osteoarthritis GERD (gastroesophageal reflux disease) Chest pain at rest Giant cell arteritis with polymyalgia rheumatica Home Medications ?Medication ?Instructions ?Recorded ?Last Taken ?Type prednisone 10 mg tablet 10 mg PO DAILY 04/05/14 07/06/25 History metoprolol succinate 50 mg 25 mg PO DAILY tremors 07/02/20 07/06/25 History tablet,extended release 24 hr denosumab 60 mg/mL subcutaneous 60 mg subcut [id number] 05/26/25 03/04/25 History syringe (Prolia) latanoprost 0.005 % eye drops 1 drp ophthalmic (eye) QHS 05/26/25 07/05/25 History primidone 250 mg tablet 250 mg PO QHS TREMORS 06/12/25 07/05/25 History cephalexin 500 mg capsule 500 mg PO BID 7 days #14 caps 07/06/25 Unknown Rx cholestyramine 4 gram oral powder 4 g PO DAILY 07/06/25 07/06/25 History for suspension in a packet (Cholestyramine Light) loperamide 2 mg capsule 2 mg PO Q6H PRN loose stool 07/06/25 07/06/25 History (Anti-Diarrheal (loperamide)) pantoprazole 40 mg tablet,delayed 40 mg PO DAILY 30 days #30 tabs 07/06/25 Unknown Rx release (Protonix) Allergy/AdvReac Type Severity Reaction Status Date / Time No Known Allergies Allergy Verified 07/06/25 10:59 Family History Brother Cancer liver and lymphoma Sister Cancer lung Diabetes Father Diabetes Heart disease Myocardial infarction Mother Heart disease Other Anesthesia complication Arthritis Bleeding disorder H/O transfusion of whole blood Hypertension Kidney disease Melanoma Surgical History History of medial meniscus repair of left knee History of right breast biopsy Status post fine needle aspiration History of breast biopsy (~07/2018) History of appendectomy Status post ORIF of fracture of ankle history of ulnar nerve transplant History of arthroplasty of left shoulder History of colonoscopy History of partial hysterectomy history of bartholin cyst removal Social History Smoking Status: Current every day smoker tobacco type: cigarettes alcohol intake: never substance use type: does not use what type of physical activity do you participate in: none do you feel safe at home: Yes EXAM Physical Exam Const Vital Signs: 07/06/25 10:59 07/06/25 12:50 Temperature 98.4 F Temperature Source Oral Pulse Rate 91 62 Respiratory Rate 18 18 Blood Pressure 115/66 137/61 H Blood Pressure Mean 82 86 Pulse Ox 98 96 Oxygen Delivery Method Room Air Room Air MDM MDM MDM Narrative Medical decision making narrative: 75-year-old female with past medical history of GI bleed secondary to ulcers, diverticulitis, IBS presents for evaluation of left lower quadrant abdominal pain and GI bleed. Patient states she follows with Dr. Hagen with GI. States for the past 2 weeks she has been having lower abdominal pain with dark bowel movements. Associated symptom is stool incontinence. Patient states she followed up with her GI physician in which she put her on a liquid diet. No plans for endoscopy per her report. See physical exam findings. Differential diagnosis includes but is not limited to upper GIB bleed, lower GI bleed, diverticulosis, diverticulitis, anemia, electrolyte abnormality. NS bolus and Protonix ordered. Patient declined pain medicine. Laboratory workup ordered including CT abdomen and pelvis. CBC with mild leukocytosis of 15.9. No anemia. Platelets unremarkable. CMP unremarkable. Lactic unremarkable. Lipase unremarkable. UA positive for blood and UTI. Urine culture sent. On chart review, patient has grown out mixed gram-positive organisms. Will give Rocephin here. CT abdomen pelvis shows sigmoid diverticulosis without diverticulitis. Stable mild compression deformity. No acute intra-abdominal findings otherwise. Stool occult positive. Given patient's physical exam as well as laboratory workup, Dr. Bucio was consulted. He was aware that patient is on prednisone. Recommend following up outpatient will likely need scopes for stable GI bleed. Agree with PPI. Patient is unsure if she wants to follow-up with Dr. Grace or in the future therefore she is able to follow-up with him outpatient per Dr. Bucio recommendations. Return precautions explained. Patient will be placed on PPI and Keflex for UTI. Patient confirmed understand the plan. Impression: 1. Stable GI bleed 2. UTI Lab Data Labs: Laboratory Results - last 24 hr 07/06/25 07/06/25 07/06/25 11:12 11:48 12:18 WBC 15.9 H RBC 4.27 Hgb 13.6 Hct 41.6 MCV 97.4 MCH 31.9 MCHC 32.7 RDW Std Deviation 47.1 H RDW Coeff of Lizandro 13.0 Plt Count 331 MPV 10.7 Immature Gran % (Auto) 0.600 Neut % (Auto) 75.0 H Lymph % (Auto) 17.6 L Meagher % (Auto) 6.2 Eos % (Auto) 0.2 Baso % (Auto) 0.4 Absolute Neuts (auto) 11.9 H Absolute Lymphs (auto) 2.79 Nucleated RBC % 0 Sodium 141 Potassium 3.4 Chloride 104 Carbon Dioxide 25.9 Anion Gap 11 BUN 11 Creatinine 0.73 Estim Creat Clear Calc 50.26 Est GFR (MDRD) Non-Af 86 BUN/Creatinine Ratio 14.8 Glucose 91 Lactic Acid 1.1 Calcium 8.7 Total Bilirubin 0.34 AST 24 ALT 15 Alkaline Phosphatase 71 Total Protein 7.3 Albumin 3.8 Globulin 3.5 Albumin/Globulin Ratio 1.1 Lipase 30 Urine Color Yellow Urine Clarity Sl. Cloudy Urine pH 6.0 Ur Specific [place] 1.010 Urine Protein Negative Urine Glucose (UA) Normal Urine Ketones Negative Urine Occult Blood 150 H Urine Nitrite Negative Urine Bilirubin Negative Urine Urobilinogen Normal Ur Leukocyte Esterase 25 H Urine RBC 0-5 SEEN Urine WBC 5-10 SEEN Ur Squamous Epith Cells 0-5 SEEN Urine Bacteria 2+ Urine Mucus 1+ Radiography Diagnostic Testing: Clinical Impression(s) from Imaging Studies Abdomen/Pelvis CT 07/06/25 11:39 IMPRESSION: 1. Extensive sigmoid diverticulosis without acute diverticulitis. 2. Stable mild compression deformity of L3. 3. No acute findings in the abdomen or pelvis as imaged. Reading Location: [facility] Discharge Plan Triage Chief Complaint: GI Bleed ED Provider: Miguelito Castillo Dx/Rx/DC Orders Clinical Impression: GI (gastrointestinal bleed), Acute UTI Instructions: GI Bleeding Causes and Tests, UTIs, ED Upper GI Bleeding (Stable) Prescriptions: New pantoprazole [Protonix] 40 mg tablet,delayed release (DR/EC) 40 mg PO DAILY 30 Days Qty: 30 0RF cephalexin 500 mg capsule 500 mg PO BID 7 Days Qty: 14 0RF No Action latanoprost 0.005 % drops 1 drp ophthalmic (eye) QHS Prolia 60 mg/mL syringe 60 mg subcut [id number] prednisone 10 MG tablet 10 mg PO DAILY Patient Comments: STEROID metoprolol succinate 50 MG tablet extended release 24 hr 25 mg PO DAILY primidone 250 mg tablet 250 mg PO QHS Cholestyramine Light 4 gram powder in packet 4 g PO DAILY loperamide [Anti-Diarrheal (loperamide)] 2 mg capsule 2 mg PO Q6H PRN (Reason: loose stool) Primary Care Provider: Miah Cottrell Referrals: Miah Cottrell DO [Primary Care Provider, Medical] - 3-5 Days Jed Bucio DO [Med Staff - Active Staff, Gastroenterology] - 3-5 Days Activity Restrictions/Additional Instructions: Follow-up with either Dr. Hagen or Dr. Bucio. Call to schedule an appointment as soon as possible. You will likely need a scope. Return back to the ED if symptoms change or worsen. You received your first dose of Protonix here in the emergency department. You need to continue this tomorrow. You received your first dose of antibiotics here in the emergency department. Take your next dose tomorrow. Print Language: Citizen Of [place] Disposition Disposition: Home, Self Care
[2025-07-06 11:58] LABS: Hematocrit 41.6 % (37-47); Hemoglobin 13.6 g/dL (12.0-15.0); Immature Granulocytes Count 0.090 X10^3/uL (0.0-0.0); Mean Corp Hgb Conc 32.7 g/dL (32-36); Mean Corpuscular Volume 97.4 fL (81-99); Mean Platelet Vol. 10.7 fl (6.2-12.0); NRBC Flagged by Analyzer 0 % (0-5); Platelet Count 331 K/mm3 (150-450); RBC Distribution Width CV 13.0 % (11.6-14.6); RBC Distribution Width SD 47.1 fl (35.1-43.9); Red Blood Count 4.27 M/mm3 (4.2-5.4); White Blood Count 15.9 K/mm3 (4.4-11.0)
[2025-07-06 12:16] LABS: AST(SGOT) 24 U/L (<=31); Alanine Aminotransfer ALT/SGPT 15 U/L (<=34); Albumin, Serum 3.8 g/dL (3.4-4.8); Alkaline Phosphatase 71 U/L (35-104); Anion Gap 11 (5-15); BUN 11 mg/dL (4-19); BUN/Creat Ratio 14.8 RATIO (10-20); Calcium,Total 8.7 mg/dL (7.6-11.0); Carbon Dioxide 25.9 mmol/L (21.0-32.0); Chloride 104 mmol/L (98-108); Estimated Creatinine Clearance 50.26 ml/min (50-250); Globulin 3.5 g/dL (2.2-4.2); Glucose 91 mg/dL (70-99); Lipase 30 U/L (13-75); Potassium 3.4 mmol/L (3.3-5.1)
[2025-07-06] MEDS: 0.9% Normal Saline (1000mL) 1,000 ML 999 ML IV (12:19)
[2025-07-06] MEDS: Pantoprazole Sodium 40 MG in 0.9% Normal Saline (100mL MB+) 100 ML 300 MG IV (12:20)
[2025-07-06 12:41] LABS: Color, Urine Yellow (Yellow); Glucose, Dipstick Normal (Normal); Ketone-Dipstick Negative (Negative); Leukocyte Esterase-Dipstick 25 /ul (Negative); Nitrite-Dipstick Negative (Negative); Occult Blood-Urine 150 /ul (Negative); Protein-Dipstick Negative (Negative); Specific Gravity, Urine 1.010 (1.002-1.030); Urine Bilirubin Dipstick Negative (Negative)
[2025-07-06 12:50] VITALS: BP 137/61; PULSE 62; RESP 18; O2SAT 96
[2025-07-06 12:50] LABS: Mucous, Urine 1+ /hpf (<or=2+); Red Blood Cells-Urine 0-5 SEEN /hpf (0-5); Squamous Epithelial Cells - UA 0-5 SEEN /hpf (5-10)
[2025-07-06 14:00] VITALS: BP 131/60; PULSE 59; RESP 18; TEMP 36.6; O2SAT 100
== END 2025-07-06 15:17 | disposition home or self-care (01) ==
PROVIDERS: Emergency Provider Surgery; PCP Student in an Organized Health Care Education/Training Program; Visit Provider Surgery
DX: K92.2 Gastrointestinal hemorrhage, unspecified (principal); N39.0 Urinary tract infection, site not specified; K21.9 Gastro-esophageal reflux disease without esophagitis; Z79.899 Other long term (current) drug therapy; F17.210 Nicotine dependence, cigarettes, uncomplicated; D72.829 Elevated white blood cell count, unspecified
CPT/HCPCS: 74177; 80053; 81001; 82274; 83605; 83690; 85025; 87086; 87088; 96365; 96367; 99283; Q9967; A4216

== ENCOUNTER → 2025-07-14 | Outpatient (CLI) | payer MEDICARE, OTHER, SELFPAY ==
[2025-07-14 18:05] LABS: AST(SGOT) 18 U/L (<=31); Alanine Aminotransfer ALT/SGPT 8 U/L (<=34); Albumin, Serum 3.8 g/dL (3.4-4.8); Alkaline Phosphatase 78 U/L (35-104); Anion Gap 12 (5-15); BUN 9 mg/dL (4-19); BUN/Creat Ratio 16.5 RATIO (10-20); CRP 38.20 mg/L (0.0-3.0); Calcium,Total 9.0 mg/dL (7.6-11.0); Carbon Dioxide 27.5 mmol/L (21.0-32.0); Chloride 104 mmol/L (98-108); Globulin 3.6 g/dL (2.2-4.2); Glucose 99 mg/dL (70-99); Potassium 3.6 mmol/L (3.3-5.1)
[2025-07-14 18:18] LABS: Hematocrit 40.0 % (37-47); Hemoglobin 13.1 g/dL (12.0-15.0); Mean Corp Hgb Conc 32.8 g/dL (32-36); Mean Corpuscular Volume 97.3 fL (81-99); POSITIVE COUNT YES; RBC Distribution Width CV 12.7 % (11.6-14.6); RBC Distribution Width SD 45.6 fl (35.1-43.9); Red Blood Count 4.11 M/mm3 (4.2-5.4); White Blood Count 11.6 K/mm3 (4.4-11.0)
--- OUTSIDE RECORDS SUMMARY | 2025-07-14 18:37 | XMS RPT_ITS | CCD ---
Author Organization [facility] Care Team Providers Care Wire Charger Name Role Phone Miah Cottrell Primary Care Provider MIAH COTTRELL Primary Care Unavailable PALMA LOVETT Referring Unavailable PALMA LOVETT Referring Unavailable MIAH COTTRELL Primary Care Unavailable Miah Cottrell DO Primary Care Provider Miah Cottrell DO Primary Care Provider Quiroz ROLLER INSPECTOR AND MENDER.SHINGLE INSPECTORRonna Unavailable Tevin ROLLER INSPECTOR AND MENDER.SHINGLE INSPECTORWily Unavailable Gina ROLLER INSPECTOR AND MENDER.SHINGLE INSPECTORCammie Unavailable MIAH COTTRELL Primary Care Unavailable MARKO WOOD Attending Unavailable MARKO WOOD Referring Unavailable MIAH COTTRELL Primary Care Unavailable WILY ABARCA Attending Unavailable MIAH COTTRELL Primary Care Unavailable ISABELA MURPHY Attending Unavailable MIAH COTTRELL Primary Care Unavailable MIAH COTTRELL Attending Unavailable MIAH COTTRELL Primary Care Unavailable DOROTHY PISANO M Referring Unavailable MIAH COTTRELL Primary Care Unavailable PALMA LOVETT Referring Unavailable DOROTHY PISANO M Attending Unavailable MIAH COTTRELL Primary Care Unavailable PALMA LOVETT Referring Unavailable MIAH COTTRELL Primary Care Unavailable PALMA LOVETT Referring Unavailable MIAH COTTRELL Primary Care Unavailable MIAH COTTRELL Primary Care Unavailable MAGDALENE BRADFORD Referring Unavailable MIAH COTTRELL Primary Care Unavailable TEVINWILY GALVIN Referring Unavailable MIAH COTTRELL Primary Care Unavailable WILY ABARCA Attending Unavailable MIAH COTTRELL Primary Care Unavailable PALMA LOVETT Attending Unavailable COTTRELL, MIAH L Primary Care Unavailable BRADFORD, SHAILEY Referring Unavailable COTTRELL, MIAH L Primary Care Unavailable BRADFORD, MAGDALENE Referring Unavailable COTTRELL, MIAH L Referring Unavailable COTTRELL, MIAH L Primary Care Unavailable COTTRELL, MIAH L Primary Care Unavailable PALMA LOVETT Referring Unavailable Simba BURGESS, Dr. Dooley Primary Care Physician Simba BURGESS, Dr. Dooley Referring Provider [phone] Camille JAMES, Dr. Correa Attending Physician Camille JAMES, Dr. Correa Referring Provider Simba BURGESS, Dr. Dooley Primary Care Physician Simba BURGESS, Dr. Dooley Referring Provider Camille JAMES, Dr. Correa Attending Physician Camille JAMES, Dr. Correa Referring Provider Camille JAMES, Dr. Correa Nurse Practitioner Cottrell, Miah Referring Unavailable Madeline Obrien Attending Unavailable Cottrell, Miah Primary Care Unavailable Cottrell, Miah Referring Unavailable WynesMadeline ayers Attending Unavailable Cottrell, Miah Primary Care Unavailable Madeline Obrien Attending Unavailable Cottrell, Miah Primary Care Unavailable Madeline Obrien Referring Unavailable Madeline Obrien Consulting Unavailable Cottrell, Miah Primary Care Unavailable Madeline Obrien Attending Unavailable Cottrell, Miah Referring Unavailable Cottrell, Miah Referring Unavailable Madeline Obrien Attending Unavailable Cottrell, Miah Primary Care Unavailable JcarlosneskiMadeline Attending Unavailable Cottrell, Miah Primary Care Unavailable Wyneski, Madeline Referring Unavailable JcarlosnesMadeline ayers Attending Unavailable Cottrell, Miah Primary Care Unavailable Camille, Madeline Attending Unavailable Jcarlosneski, Madeline Referring Unavailable Cottrell, Miah Primary Care Unavailable JcarlosneskiMadeline Attending Unavailable Cottrell, Miah Primary Care Unavailable Madeline Obrien Referring Unavailable Allergies Allergy Classification Reported Allergen(s) Allergy Type Date of Onset Reaction(s) Facility (20 sources) sulfaSALAzine; Translations: [SULFASALAZINE] Drug Allergy 03-26-2024 Rash [facility] Medications Current Medications Medication Drug Class(es) Dates Sig (Normalized) Sig (Original) acetaminophen 325 mg / oxyCODONE hydrochloride 5 mg oral tablet (16 sources) Opioid Agonist Start: 06-18-2025 take 1 tablet by mouth every eight hours as needed for pain Start: 03-23-2022 End: 03-30-2022 oxyCODONE-acetaminophen (PER COCET) 5-325 MG per tablet Indications: Traumatic arthritis of right ankle Take 1 tablet by mouth every 6 hours as needed for Pain for up to 7 days. Intended supply: 7 days. Take lowest dose possible to manage pain 28 tablet 0 03/23/2022 03/30/2022 Active Start: 07-09-2020 End: 07-15-2020 Oxycodone-Acetaminophen 1 TA BLET tablet Discontinued 1 - 2 {tbl} PO EVERY 4 HOURS NEEDED as needed for Pain 16 02July 09, 2020 July 14, 2020 12:00am July 15, 2020 12:03am Cholelithiasis Calculus of gallbladder without cholecystitis without obstruction Start: 07-09-2020 End: 07-15-2020 take 1 tablet by mouth every four hours as needed Oxycodone-Acetaminophen Discontinued 1 - 2 TABLET PO EVERY 4 HOURS NEEDED 16 02July 09, 2020 July 15, 2020 1:03am Start: 05-05-2019 End: 05-12-2019 Oxycodone-Acetaminophen (Per cocet) 5-325 mg tablet Discontinued 1 {tbl} PO EVERY 6 HOURS as needed for pain 28 7 0 May 05, 2019 May 10, 2019 11:00pm May 11, 2019 11:08pm Other acute postprocedural pain Blood Pressure Test Kit-Larg e (QUICK RESPONSE BP MONITOR) (20 sources) Start: 02-29-2024 Blood Pressure Test Kit-Large (QUICK RESPONSE BP MONITOR) Indications: Essential hypertension 1 Each once daily. 1 Each 02/29/2024 Active Start: 02-29-2024 Blood Pressure Test Kit-Large (QUICK RESPONSE BP MONITOR) Indications: Essential hypertension 1 Each once daily. 1 Each 0 02/29/2024 Active Start: 02-18-2024 End: 02-29-2024 Blood Pressure Test Kit-Larg e (QUICK RESPONSE BP MONITOR) Indications: Essential hypertension 1 Each once daily. 1 Each 0 02/18/2024 02/29/2024 Discontinued Start: 02-18-2024 Blood Pressure Test Kit-Large (QUICK RESPONSE BP MONITOR) Indications: Essential hypertension 1 Each once daily. 1 Each 0 02/18/2024 Active calcium chloride 0.0014 meq/ml / potassium chloride 0.004 meq/ml / sodium chloride 0.103 meq/ml / sodium lactate 0.028 meq/ml injectable solution (2 sources) Start: 03-23-2022 lactated ringers infusion cephalexin 500 mg oral capsule (5 sources) Cephalosporin Antibacterial Start: 06-18-2025 take 1 tablet by mouth three times daily Start: 06-18-2025 take 1 capsule by mo ut every twelve hours Start: 07-03-2022 End: 07-08-2022 take 1 capsule by mouth four times daily cephALEXin (KEFLEX) 500 mg capsule Indications: Injury of left lower extremity, subsequent encounter , Wound of left lower extremity, subsequent encounter , Pain of left lower extremity , Hematoma of left lower leg Take 1 capsule by mouth four times daily for 5 days. 20 capsule 0 07/03/2022 07/08/2022 Active Start: 06-25-2022 End: 07-02-2022 take 1 capsule by mouth three times daily cephALEXin (KEFLEX) 500 mg capsule Indications: Skin infection Take 1 capsule by mouth three times daily for 7 days. 21 capsule 0 06/25/2022 07/02/2022 Active 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: Take 1 capsule by mo uth three times daily for 7 days. Take 1 capsule by mo ut four times daily for 5 days. 1 ml denosumab 60 mg/ml prefilled syringe (20 sources) RANK Ligand Inhibitor Start: 05-26-2025 Start: 02-06-2025 End: 03-08-2025 denosumab 60 mg injection (P ROLIA) Start: 08-05-2024 End: 09-04-2024 denosumab 60 mg injection (P ROLIA) Start: 01-28-2024 End: 01-28-2024 denosumab 60 mg injection (P ROLIA) Start: 01-28-2024 End: 01-28-2024 denosumab 60 mg injection (P ROLIA) Start: 07-23-2023 End: 08-22-2023 denosumab 60 mg injection (P ROLIA) Start: 01-19-2023 End: 01-19-2023 denosumab 60 mg injection (P ROLIA) Start: 07-31-2022 End: 08-30-2022 denosumab 60 mg injection (P ROLIA) Start: 07-25-2018 End: 06-22-2020 Denosumab (Prolia) 60 mg/mL syringe Discontinued 60 mg SC every 6 months July 25, 2018 12:00am June 22, 2020 9:39am denosumab (PROLI A SQ) Inject subcutaneously once every 6 months. Active End: 03-16-2022 denosumab (PROLIA) 60 MG/ML SOLN SC injection Inject 60 mg into the skin once 0 03/16/2022 Discontinued (LIST CLEANUP) 1 ml diphenhydrAMINE hydrochloride 50 mg/ml cartridge (1 source) Histamine-1 Receptor Antagonist Start: 03-23-2022 End: 03-23-2022 diphenhydrAMINE (BENADRYL) injection 12.5 mg 1 ml HYDROmorphone hydrochloride 1 mg/ml cartridge (9 sources) Opioid Agonist Start: 03-23-2022 HYDROmorphone (DILAUDID) injection 0.5 mg Start: 03-23-2022 HYDROmorphone (DILAUDID) injection 0.25 mg Start: 04-29-2019 End: 05-08-2019 take 1 tablet by mouth every four hours as needed for pain Hydromorphone (Dilaudid) 2 mg tablet Discontinued 2 mg PO Q4H as needed for pain 20 0 April 29, 2019 May 08, 2019 7:42am stop all other narcotics, call with concerns iv contrast (will be provided with radiology test) (1 source) Start: 12-26-2021 End: 12-27-2021 inject 1 dose intravenously once daily iv contrast (will be provided with radiology test) Indications: New daily persistent headache , 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 Discontinue saline lock post exam. If Pt. has a central line or IVAD, may access for administration according to line specific nursing protocol. Once exam is complete flush line and de-access according to line specific nursing protocol in the CT contrast administration guidelines link. 1 Each 0 12/26/2021 12/27/2021 Active 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: CTA Head WO/W IVCON No IV access, insert saline lock prior to the sedation, infusion, injection for imaging exam. Discontinue saline lock post exam. If Pt. has a central line or IVAD, may access for administration according to line specific nursing protocol. Once exam is complete flush line and de-access according to line specific nursing protocol in the CT contrast administration guidelines link. labetalol (NORMODYNE;TRAND ATE) injection 5 mg (1 source) Start: 03-23-2022 labetalol (NORMODYNE;TRANDATE ) injection 5 mg latanoprost 0.05 mg/ml ophthalmic solution (5 sources) Prostaglandin Analog Start: 05-26-2025 Start: 01-07-2023 End: 01-19-2023 take 1 drop(s) into the eye(s) once daily latanoprost (XALATAN) 0.005 % ophthalmic solution INSTILL 1 DROP INTO EACH EYE NIGHTLY 0 01/07/2023 01/19/2023 Discontinued 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: INSTILL 1 DROP INTO EACH EYE NIGHTLY 10 ml lidocaine hydrochloride 10 mg/ml injection (1 source) Antiarrhythmic, Amide Local Anesthetic Start: 03-23-20 End: 03-23-20 lidocaine PF 1 % injection 1 mL loperamide hydrochloride 2 mg oral capsule (20 sources) Opioid Agonist Start: 11-21-19 take 1 capsule by mouth four times daily as needed for diarrhea 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: Take 2 mg by mouth f our times daily as needed. 1 ml meperidine hydrochloride 25 mg/ml cartridge (1 source) Opioid Agonist Start: 03-23-20 meperidine (DEMEROL) injection 12.5 mg 24 hr metoprolol succinate 50 mg extended release oral tablet (20 sources) beta-Adrenergic Matilde Start: 08-05-20 End: 12-28-19 take 1 tablet by mouth once daily metoprolol succinate ER (TOPROL XL) 25 mg 24 hr tablet Indications: Essential hypertension , Headache, unspecified headache type Take 1 tablet by mouth once daily. 90 tablet 1 08/05/2021 12/27/2021 Discontinued Start: 07-02-2020 End: 03-17-2024 take 2 tablets by mouth once daily Start: 07-02-2020 End: 05-17-2025 take 1 tablet by mouth twice daily metoprolol succinate ER (TOPROL XL) 50 mg 24 hr tablet Indications: Essential hypertension Take 1 tablet by mouth two times a day. 180 tablet 02/16/2025 05/17/2025 Active Start: 07-02-2020 take 25 mg by mouth twice rosetta y Metoprolol Succinate Active 25 MG PO TWICE A DAY July 02, 2020 1:00am End: 03-29-2023 METOPROLOL SUCCINATE ORAL Ta ke 50 mg by mouth. 0 03/29/2023 Discontinued METOPROLOL SUCCI TAJ ER PO Take by mouth 0 Active 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: Take 1 tablet by chris once daily. Take 50 mg by mouth. mupirocin 0.02 mg/mg topical ointment (2 sources) RNA Synthetase Inhibitor Antibacterial Start: 06-25-2022 End: 07-05-2022 mupirocin (BACTROBAN) 2 % ointment Indications: Skin infection Apply to affected area three times daily for 10 days. 22 g 0 06/25/2022 07/05/2022 Active 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: Apply to affected ar ea three times daily for 10 days. nystatin 100 unt/mg / triamcinolone acetonide 0.001 mg/mg topical ointment (4 sources) Polyene Antifungal, Corticosteroid Start: 02-07-2024 End: 03-08-2024 nystatin-triamcinolone (MYCOLOG) ointment Indications: Yeast dermatitis Apply to affected area two times a day. 30 g 2 02/07/2024 03/08/2024 Active predniSONE 10 mg oral tablet (20 sources) Start: 09-22-2024 End: 03-17-2025 predniSONE (DELTASONE) 1 mg tablet Take 7 mg once a day (using 1 mg and 5 mg tablets) 180 tablet 09/22/2024 03/17/2025 Discontinued Start: 09-22-2024 End: 03-17-2025 predniSONE (DELTASONE) 5 mg tablet Using 1 mg and 5 mg tablets, please take 7mg once a day 90 tablet 09/22/2024 03/17/2025 Discontinued Start: 02-07-2023 End: 04-13-2023 take 3.5 tablets by mouth once daily, then take 3 tablets by mouth once daily, then take 2.5 tablets by mouth once daily, then take 2 tablets by mouth once daily, then take 1.5 tablets by mouth once daily, then take 1 tablet by mouth once daily at mealtime predniSONE (DELTASONE) 10 mg tablet Take 3.5 tablets by mouth once daily for 7 days, THEN 3 tablets once daily for 7 days, THEN 2.5 tablets once daily for 7 days, THEN 2 tablets once daily for 7 days, THEN 1.5 tablets once daily for 7 days, THEN 1 tablet once daily. Take in the morning with food.. 118 tablet 0 02/07/2023 04/13/2023 Start: 05-17-2022 End: 12-21-2022 predniSONE (DELTASONE) 5 mg tablet Take in the morning with food. Take 30 mg (3 tabs)/day x1 week, then taper by 5 mg every 1 week until you're at 20mg/day. Then use 5mg tablets to taper by 2.5mg every 1 week until you're at 10mg/day. Please continue 10mg/day thereafter. 90 tablet 1 05/17/2022 12/21/2022 Discontinued Start: 11-20-2020 End: 05-26-2025 take 1 tablet by mouth once daily at mealtime Prednisone 20 MG tablet Discontinued 20 mg PO DAILY November 19, 2020 11:00pm May 26, 2025 10:47am With food Start: 04-05-2014 End: 07-28-2024 take 1 tablet by mouth once daily at mealtime predniSONE (DELTASONE) 10 mg tablet Take 1 tablet by mouth once daily. Take in the morning with food. 90 tablet 1 03/27/2025 Active Start: 04-05-2014 Prednisone 10 MG tablet Active 10.5 mg PO DAILY April 05, 2014 12:00am Complies with drug therapy Start: 04-05-2014 take 10.5 mg by mouth once graeme ly Prednisone Active 10.5 MG PO DAILY April 05, 2014 12:00am take 10 mg by mouth in the morning predniSONE (DELTASONE) 20 MG tablet Take 10 mg by mouth in the morning. 0 Active take 3 tablets by mo [facility] once daily predniSONE (DELTASONE) 20 MG tablet Take 60 mg by mouth daily 0 Active 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: Take 1 tablet by chris once daily. Take with food. Take in the morning with food. Use 10 mg tabs to take 30 mg (3 tabs)/day x1 week, then taper by 5 mg every 1 week until you're at 20mg/day. Then use 5 mg tablets to taper by 2.5mg every 1 week until you're at 10mg/day. Please continue 10mg/day thereafter. Take in the morning with food. Take 30 mg (3 tabs)/day x1 week, then taper by 5 mg every 1 week until you're at 20mg/day. Then use 5mg tablets to taper by 2.5mg every 1 week until you're at 10mg/day. Please continue 10mg/day thereafter. Take 1 tablet by chris th once daily. Take in the morning with food. Take 3.5 tablets by mouth once daily for 7 days, THEN 3 tablets once daily for 7 days, THEN 2.5 tablets once daily for 7 days, THEN 2 tablets once daily for 7 days, THEN 1.5 tablets once daily for 7 days, THEN 1 tablet once daily. Take in the morning with food.. Take 10 mg by mouth once daily. primidone 250 mg oral tablet (20 sources) Anti-epileptic Agent Start: 06-12-2025 take 1 tablet by mouth at bedtime Start: 06-12-2025 take 1 tablet by chris th at bedtime Primidone 250 mg tablet Active 250 mg PO AT BEDTIME June 12, 2025 12:00am TREMORS Complies with drug therapy Start: 06-12-2025 take 1 tablet by chris th at bedtime Primidone 250 mg tablet Active 250 mg PO AT BEDTIME June 12, 2025 12:00am TREMORS Complies with drug therapy Start: 03-23-2021 End: 2026 take 1 tablet by mouth once daily at bedtime primidone (MYSOLINE) 250 mg tablet Indications: Essential tremor Take 1 tablet by mouth daily at bedtime. 90 tablet 3 2024 2025 Discontinued Start: 11-20-2020 End: 06-12-2025 take 1 tablet by mouth once daily Primidone 50 MG tablet Discontinued 50 mg PO DAILY November 19, 2020 11:00pm June 12, 2025 2:15pm 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: Take 1 tablet by chris th daily at bedtime. 1.14 ml sarilumab 175 mg/ml prefilled syringe (13 sources) Start: 02-11-20 inject 200 mg by subcutaneous injection every other week SARilumab (KEVZARA) 200 mg/1.14 mL injection Inject 200mg (1 syringe) subcutaneously every 2 weeks. 6 each 1 02/10/2025 Active 5 ml sodium chloride 9 mg/ml injection (20 sources) Start: 03-23-20 sodium chloride flush 0.9 % injection 5-40 mL Start: 03-23-2022 0.9 % sodium c hloride bolus Start: 03-23-2022 0.9 % sodium c hloride infusion Start: 03-23-2022 sodium chlorid e flush 0.9 % injection 5-40 mL Start: 12-26-2021 End: 03-27-2023 sodium chloride 0.9 % (flush ) 10 mL (BD POSIFLUSH) travoprost 0.04 mg/ml ophthalmic solution (20 sources) Prostaglandin Analog Start: 04-05-2014 travopros t (TRAVATAN Z) 0.004 % ophthalmic drops 1 Drop. 04/05/2014 Active Start: 04-05-2014 End: 05-26-2025 Travoprost 1 DROP bottle Dis continued 1 NMA EACH EYE DAILY April 04, 2014 11:00pm May 26, 2025 10:49am Start: 04-05-2014 Travoprost Act dwight 1 DRP EACH EYE DAILY April 05, 2014 12:00am travoprost, jen alkonium, (TRAVATAN) 0.004 % ophthalmic solution Place 1 drop into both eyes nightly 0 Active travoprost, jen alkonium, (TRAVATAN) 0.004 % ophthalmic solution Apply to eye 0 Active 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: 1 Drop. triamcinolone acetonide 1 mg/ml topical cream (3 sources) Corticosteroid Start: 03-26-2024 End: 04-09-2024 triamcinolone acetonide (KENALOG) 0.1 % cream Indications: Rash Apply 1 application to affected area two times a day for 14 days. Apply to affected area. Location: right arm 15 g 0 03/26/2024 04/09/2024 Active Completed/Discontinued Medications Medication Drug Class(es) Dates Sig (Normalized) Sig (Original) acetaminophen 500 mg oral tablet (1 source) Start: 03-23-2022 End: 03-23-2022 acetaminophen (TYLENOL) tablet 1,000 mg acetaminophen 325 mg / HYDROcodone bitartrate 5 mg oral tablet (7 sources) Opioid Agonist Start: 11-20-2020 End: 11-23-2020 Hydrocodone-Acetamin ophen 1 TABLET tablet Discontinued 1 {tbl} PO EVERY 6 HOURS NEEDED as needed for Pain 10 3 0 November 20, 2020 November 21, 2020 11:00pm November 22, 2020 11:04pm Giant cell arteritis with polymyalgia rheumatica Giant cell arteritis with polymyalgia rheumatica Start: 11-20-2020 End: 11-23-2020 take 1 tablet by mouth every six hours as needed Hydrocodone-Acetaminophen Discontinued 1 TABLET PO EVERY 6 HOURS NEEDED 10 3 November 20, 2020 November 23, 2020 12:04am alendronic acid 70 mg oral tablet (7 sources) Bisphosphonate Start: 04-05-2014 End: 07-25-2018 take 1 tablet by mouth every week Alendronate 70 MG tablet Discontinued 70 mg PO Q7D@0700 April 04, 2014 11:00pm July 25, 2018 2:02pm amLODIPine 2.5 mg oral tablet (20 sources) Dihydropyridine Calcium Channel Matilde Start: 01-28-2024 End: 11-21-2024 take 1 tablet by mouth once daily amLODIPine (NORVASC) 2.5 mg tablet Indications: Essential hypertension Take 1 tablet by mouth once daily. 90 tablet 2 02/18/2024 11/21/2024 Discontinued Start: 08-05-2021 End: 04-19-2023 take 1 tablet by mouth once daily amLODIPine (NORVASC) 5 mg tablet Take 1 tablet by mouth once daily. 90 tablet 1 08/05/2021 02/02/2022 Discontinued 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: Take 1 tablet by chris th once daily. aspirin 81 mg delayed release oral tablet (13 sources) Platelet Aggregation Inhibitor, Nonsteroidal Anti-inflammatory Drug Start: 2 End: take 1 tablet by mouth once daily in the morning aspirin, enteric coated (ASPIRIN, ENTERIC COATED) 81 mg EC tablet Take 1 tablet by mouth every morning. 0 03/23/2022 04/19/2023 Discontinued 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: Take 1 tablet by chris th every morning. 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 01/19/2023 Discontinued End: 01-19-2023 take 1 tablet by mouth once daily calcium carb/magnesium oxid/D3 (CALCIUM MAGNESIUM + D ORAL) Take 1 tablet by mouth once daily. 0 01/19/2023 Discontinued take 1 tablet by chris th once daily calcium carb/magnesium oxid/D3 (CALCIUM MAGNESIUM + D ORAL) Take 1 tablet by mouth once daily. 0 Active 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: Take 1 tablet by chris th once daily. calcium carbonate 1500 mg oral tablet (20 sources) End: 01-09-2024 take 1 tablet by mouth once daily in the morning calcium carbonate (CALTRATE) 600 mg calcium (1,500 mg) tab Take 1 tablet by mouth every morning. 0 01/09/2024 Discontinued take 1 tablet by mouth in the mo rning calcium carbonate 600 MG TABS tablet Take 1 tablet by mouth in the morning. 0 Active 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: Take 1 tablet by chris th every morning. ceFAZolin 2000 mg injection (1 source) Cephalosporin Antibacterial Start: End: ceFAZolin (ANCEF) 2000 mg in dextrose 4 % 100 mL IVPB (premix) cholecalciferol 0.025 mg oral tablet (8 sources) Vitamin D Start: End: take 5 tablets by mouth once daily Cholecalciferol (Vitamin D3) 1,000 UNIT tablet Discontinued 5000 U PO DAILY July 02, 2020 12:00am May 26, 2025 10:46am Start: 07-02-2020 take 5000 [IU] by mo uth once daily Cholecalciferol (Vitamin D3) Active 5000 UNIT PO DAILY July 02, 2020 1:00am vitamin D 25 MCG (1000 UT) CAPS Take by mouth daily 0 Active cholecalciferol, vitamin D3, (VITAMIN D3 ORAL) (20 sources) End: 01-09-2024 cholecalciferol, vitamin D3, (VITAMIN D3 ORAL) Take by mouth once daily. 01/09/2024 Discontinued End: 01-09-2024 cholecalciferol, vitamin D3, (VITAMIN D3 ORAL) Take by mouth once daily. 0 01/09/2024 Discontinued cholecalciferol, vitamin D3, (VITAMIN D3 ORAL) Take by mouth once daily. 0 Active 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: Take by mouth once d aily. cholestyramine resin 4000 mg powder for oral suspension (20 sources) Bile Acid Sequestrant Start: 01-04-2023 End: 01-19-2023 cholestyramine-sucrose (QUESTRAN) 4 gram powder MIX 1 SCOOP IN LIQUID AND DRINK UP TO TWICE DAILY. 0 01/04/2023 01/19/2023 Discontinued Start: 11-20-2020 take 239.4 g by mouth twice da shane Start: 11-20-2020 End: 04-19-2023 take 4 g by mouth twice daily Cholestyramine-Aspartame Active 4 GM PO TWICE A DAY November 20, 2020 12:00am 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: MIX ONE SCOOPFUL INT O A BEVERAGE AND DRINK UP TO 2 TIMES DAILY. MIX 1 SCOOP IN LIQUI D AND DRINK UP TO TWICE DAILY. Take by mouth. CHOLESTYRAMINE, BULK, MISC (20 sources) End: 01-09-2024 CHOLESTYRAMINE, BULK, MISC 1 Scoop once daily. 01/09/2024 Discontinued End: 01-09-2024 CHOLESTYRAMINE, BULK, MISC 1 Scoop once daily. 0 01/09/2024 Discontinued CHOLESTYRAMINE, BULK, MISC 1 Scoop once daily. 0 Active 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: 1 Scoop once daily. famotidine 20 mg oral tablet (1 source) Histamine-2 Receptor Antagonist Start: 2 End: 2 famotidine (PEPCID) tablet 20 mg folic acid 1 mg oral tablet (14 sources) Start: 2 End: 2 take 1 tablet by mouth once daily folic acid 1 mg tablet Take 1 tablet by mouth once daily. 90 tablet 3 05/16/2022 07/24/2022 Discontinued Start: 07-25-2018 End: 06-22-2020 take 0.8 mg by mouth once daily Folic Acid 800 mcg tablet Discontinued 0.8 mg PO DAILY July 25, 2018 12:00am June 22, 2020 9:39am Start: 07-25-2018 End: 06-22-2020 take 0.8 mg by mouth once daily Folic Acid Discontinued 0.8 MG PO DAILY July 25, 2018 1:00am June 22, 2020 10:39am 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: Take 1 tablet by chris th once daily. furosemide 20 mg oral tablet (7 sources) Loop Diuretic Start: 02-25-2017 End: 07-25-2018 take 1 tablet by mouth once daily Furosemide 20 MG tablet Discontinued 20 mg PO DAILY 7 0 February 24, 2017 11:00pm July 25, 2018 2:02pm HYDROcodone (12 sources) Opioid Agonist Start: 11-20-2020 End: 04-19-2023 HYDROCODONE BITARTRATE ORAL Take by mouth. 0 11/20/2020 04/19/2023 Discontinued Start: 11-20-2020 HYDROCODONE BI TARTRATE ORAL Take by mouth. 0 11/20/2020 Active 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: Take by mouth. hydroxychloroquine sulfate 200 mg oral tablet (19 sources) Antimalarial, Antirheumatic Agent Start: 01-28-20 24 End: 03-18-20 24 hydrOXYchloroQUINE (PLAQUENIL) 200 mg tablet Take 200mg (1 tablet) once daily Mondays-Fridays and 200mg (1 tablet) twice daily on Saturdays and Sundays 114 tablet 0 01/28/2024 03/18/2024 Discontinued Start: 10-17-2021 End: 03-17-2022 take 1 tablet by mouth once daily hydrOXYchloroQUINE (PLAQUENIL) 200 mg tablet Take 1 tablet by mouth once daily. 90 tablet 1 10/17/2021 03/17/2022 Discontinued 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: Take 1 tablet by chris once daily. Ketoprofen 10 % CREA (2 sources) Start: 01-28-2021 End: 03-16-2022 Ketoprofen 10 % CREA Indications: Traumatic arthritis of right ankle Ketoprofen 20%, gabapentin 8%, lidocaine 2% in PLO gel. Apply dime sized amount to affected area daily. 1 Bottle 0 01/28/2021 03/16/2022 Discontinued (LIST CLEANUP) Start: 01-28-2021 Ketoprofen 10 % CREA Indications: Traumatic arthritis of right ankle Ketoprofen 20%, gabapentin 8%, lidocaine 2% in PLO gel. Apply dime sized amount to affected area daily. 1 Bottle 0 01/28/2021 Active methotrexate 25 mg/ml injectable solution (7 sources) Folate Analog Metabolic Inhibitor Start: 05-16-2022 End: 07-24-2022 inject 0.4 mL by subcutaneous injection every week, then inject 0.5 mL by subcutaneous injection every week, then inject 0.6 mL by subcutaneous injection every week methotrexate sodium 25 mg/mL soln Inject subcutaneously. Inject 0.4 ml once per week x 1 week, then inject 0.5 ml once per week x 1 week, then inject 0.6 ml once per week thereafter. 4 mL 05/16/2022 07/24/2022 Discontinued 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: Inject subcutaneousl y. Inject 0.4 ml once per week x 1 week, then inject 0.5 ml once per week x 1 week, then inject 0.6 ml once per week thereafter. omeprazole 40 mg delayed release oral capsule (10 sources) Proton Pump Inhibitor Start: 08-24-2015 End: 03-16-2022 take 1 capsule by mouth once daily Omeprazole 40 MG capsule Discontinued 40 mg PO DAILY October 11, 2016 12:00am June 22, 2020 9:39am ondansetron 4 mg disintegrating oral tablet (14 sources) Serotonin-3 Receptor Antagonist Start: 03-23-2022 End: 04-19-2023 ondansetron orally disintegrating (ZOFRAN ODT) 4 mg disintegrating tablet Take 4 mg by mouth. 0 03/23/2022 04/19/2023 Discontinued Start: 03-23-2022 End: 03-23-2022 ondansetron (ZOFRAN) injecti on 4 mg 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: Take 4 mg by mouth. perflutren lipid microspheres 1.3 mL in NaCl (PF) 0.9% 10 mL injection (DEFINITY) (20 sources) Start: 2021 End: 2022 perflutren lipid microspheres 1.3 mL in NaCl (PF) 0.9% 10 mL injection (DEFINITY) polyethylene glycol 3350 82573 mg powder for oral solution (14 sources) Osmotic Laxative Start: 2020 End: 2021 polyethylene glycol 3350 (MIRALAX, GLYCOLAX) 17 gram/dose powder Indications: Diarrhea due to malabsorption Use as directed for Miralax / Gatorade Bowel Prep Kit 238 g 2021 05/02/2022 Discontinued 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: Use as directed for Miralax / Gatorade Bowel Prep Kit sulfaSALAzine 500 mg oral tablet (2 sources) Aminosalicylate Start: 2023 End: 2023 sulfaSALAzine (AZULFIDINE) 500 mg tablet 500mg once/day x1 week, then 500mg twice/day thereafter 60 tablet 0 03/18/2024 03/26/2024 Discontinued (Allergic response) 28 actuat teriparatide 0.02 mg/actuat pen injector (20 sources) Parathyroid Hormone Analog Start: 2021 End: 2021 inject 0.08 mL by subcutaneous injection once daily FORTEO 20 mcg/dose (600mcg/2.4mL) INJECT 0.08ML (20MCG) UNDER THE SKIN ONCE DAILY 2.4 mL 0 03/06/2022 03/17/2022 Discontinued Start: 06-22-2020 End: 05-26-2025 inject 20 ug by subcutaneous injection once daily Teriparatide 20 MCG/DOSE pen injector Discontinued 20 ug SQ DAILY July 02, 2020 12:00am May 26, 2025 10:47am bone health 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: Inject 20mcg subcutaneously once daily. INJECT 0.08ML (20MCG ) UNDER THE SKIN ONCE DAILY Inject 20 mcg subcut aneously. TRAVOPROST, BENZALKONIUM, (TRAVATAN OPHTHALMIC) (20 sources) End: take 1 drop(s) into the eye(s) once daily at bedtime TRAVOPROST, BENZALKONIUM, (TRAVATAN OPHTHALMIC) Use in eyes. One drop daily at bedtime in both eyes. 01/19/2023 Discontinued End: 01-19-2023 take 1 drop(s) into the eye(s) once daily at bedtime TRAVOPROST, BENZALKONIUM, (TRAVATAN OPHTHALMIC) Use in eyes. One drop daily at bedtime in both eyes. 0 01/19/2023 Discontinued take 1 drop(s) into the eye(s) once daily at bedtime TRAVOPROST, BENZALKONIUM, (TRAVATAN OPHTHALMIC) Use in eyes. One drop daily at bedtime in both eyes. 0 Active 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: Use in eyes. One cristino p daily at bedtime in both eyes. Problems Active Problems Problem Classification Problem Date Documented Da te Episodic/Chronic Adjustment disorders (20 sources) Adjustment disorder with anxious mood; Translations: [Adjustment disorder with anxiety] Onset: 9 05-10-2010 Chronic Allergic reactions (1 source) Allergic contact dermatitis; Translations: [Allergic contact dermatitis, unspecified cause] 03-31-2024 Episodic Biliary tract disease (20 sources) Biliary calculus; Translations: [Calculus of gallbladder without cholecystitis without obstruction] Onset: 3 01-19-2023 Episodic Cancer of uterus (20 sources) History of malignant neoplasm of uterine body; Translations: [Personal history of malignant neoplasm of other parts of uterus] Onset: 3 01-19-2023 Episodic Disorders of lipid metabolism (20 sources) Mixed hyperlipidemia; Translations: [Mixed hyperlipidemia] Onset: 2 Chronic Diverticulosis and diverticulitis (20 sources) Diverticulitis of large intestine; Translations: [Diverticulitis of large intestine without perforation or abscess without bleeding] Onset: 3 01-18-2018 Chronic Esophageal disorders (20 sources) Gastroesophageal reflux disease; Translations: [Gastro-esophageal reflux disease without esophagitis] Onset: 3 01-19-2023 Chronic Essential hypertension (20 sources) Essential hypertension; Translations: [Essential (primary) hypertension] Onset: 2 Chronic Fracture of upper limb (20 sources) Fracture of humerus ; Translations: [Unspecified fracture of shaft of humerus, left arm, initial encounter for closed fracture] Onset: 3 01-19-2023 Episodic Gastroduodenal ulcer (except hemorrhage) (3 sources) Peptic ulcer; Translations: [Peptic ulcer, site unspecified, unspecified as acute or chronic, without hemorrhage or perforation] Onset: 5 03-18-2024 Chronic Genitourinary symptoms and ill-defined conditions (10 sources) Urge incontinence of urine; Translations: [Urge incontinence] Onset: 5 05-26-2025 Chronic Genitourinary symptoms and ill-defined conditions (20 sources) Blood in urine; Translations: [Hematuria] Onset: 5 Resolved: 8 10-29-2007 Episodic Headache; including migraine (1 source) New daily persistent headache; Translations: [New daily persistent headache (NDPH)] Chronic Headache; including migraine (20 sources) Headache; Translations: [Cephalalgia] Onset: 7 01-17-2017 Episodic Immunizations and screening for infectious disease (2 sources) Requires a tetanus booster; Translations: [Encounter for immunization] Episodic Inflammatory diseases of female pelvic organs (20 sources) Cyst of Bartholin's gland duct; Translations: [Cyst of Bartholin's gland] Onset: 3 01-19-2023 Episodic Joint disorders and dislocations; trauma-related (20 sources) Traumatic arthropathy-ankle; Translations: [Traumatic arthropathy, unspecified ankle and foot] Onset: 6 06-16-2016 Chronic Joint disorders and dislocations; trauma-related (1 source) 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; Translations: [Traumatic arthritis of right ankle] Menopausal disorders (9 sources) Atrophy of vagina; Translations: [Postmenopausal atrophic vaginitis] 05-26-2025 Chronic Mycoses (1 source) Candidiasis of skin; Translations: [Candidiasis of skin and nail] 02-07-2024 Episodic Nonspecific chest pain (20 sources) Chest pain at rest; Translations: [Chest pain, unspecified] Onset: 3 01-19-2023 Episodic Nutritional deficiencies (20 sources) Vitamin D deficiency; Translations: [Vitamin D deficiency, unspecified] Onset: 3 03-12-2023 Chronic Occlusion or stenosis of precerebral arteries (20 sources) Bilateral atherosclerosis of carotid arteries; Translations: [Occlusion and stenosis of bilateral carotid arteries] Onset: 3 03-12-2023 Chronic Open wounds of extremities (3 sources) Disorder of lower extremity; Translations: [Unspecified open wound, left lower leg, subsequent encounter] Episodic Osteoarthritis (20 sources) Osteoarthritis; Translations: [Unspecified osteoarthritis, unspecified site] Onset: 3 01-19-2023 Chronic Osteoporosis (20 sources) Postmenopausal osteoporosis; Translations: [Age-related osteoporosis without current pathological fracture] Onset: 6 Chronic Other aftercare (9 sources) Patient encounter status; Translations: [Other intermediate card tender (current) drug therapy] Episodic Other aftercare (1 source) manager long term care (current) use of systemic steroids; Translations: [assisted 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] Onset: 3 Episodic Other aftercare (4 sources) Long-term current use of systemic steroid; Translations: [assisted (current) use of systemic steroids] Episodic Other aftercare (3 sources) Long-term current use of drug therapy; Translations: [Other intermediate card tender (current) drug therapy] 03-18-2024 Episodic Other circulatory disease (20 sources) Raynaud's disease; Translations: [Raynaud's syndrome without gangrene] Onset: 6 10-28-2015 Chronic Other connective tissue disease (12 sources) Polymyalgia rheumatica; Translations: [Polymyalgia rheumatica] Chronic Other connective tissue disease (20 sources) History of left shoulder arthroplasty; Translations: [Presence of left artificial shoulder joint] Onset: 3 01-19-2023 Chronic 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: spur Other connective tissue disease (2 sources) Polymyalgia rheumatica; Translations: [PMR (polymyalgia rheumatica) ([facility])] Onset: 3 Chronic Other connective tissue disease (3 sources) Pain in left lower limb; Translations: [Pain in left leg] Episodic Other connective tissue disease (1 source) Ganglion cyst; Translations: [Ganglion, unspecified site] 05-23-2024 Episodic Other connective tissue disease (1 source) Muscle pain; Translations: [Myalgia, unspecified site] 02-13-2025 Episodic Other diseases of bladder and urethra (9 sources) Overactive bladder; Translations: [Overactive bladder] 05-26-2025 Chronic Other diseases of bladder and urethra (1 source) Lesion of bladder; Translations: [Bladder disorder, unspecified] 06-18-2025 Chronic Other diseases of bladder and urethra (1 source) Bladder disorder, unspecified; Translations: [Bladder disorder, unspecified] Onset: 5 Chronic Other gastrointestinal disorders (20 sources) Diarrhea; Translations: [Intestinal malabsorption, unspecified] Onset: 1 05-09-2021 Chronic Other gastrointestinal disorders (1 source) Intestinal malabsorption, unspecified; Translations: [Diarrhea due to malabsorption] Onset: 1 Chronic Other hereditary and degenerative nervous system conditions (5 sources) Essential tremor; Translations: [Essential tremor] Chronic Other hereditary and degenerative nervous system conditions (1 source) Essential tremor; Translations: [Essential tremor] Onset: 5 Chronic Other injuries and conditions due to external causes (3 sources) Injury of left leg; Translations: [Unspecified injury of left lower leg, subsequent encounter] Episodic Other nervous system disorders (1 source) Other chronic pain; Translations: [Chronic neck pain] Onset: 3 Chronic Other nervous system disorders (20 sources) H/O: visual disturbance; Translations: [Personal history of other diseases of the nervous system and sense organs] Onset: 3 01-19-2023 Episodic Other non-traumatic joint disorders (2 sources) Ankle pain; Translations: [Pain in right ankle and joints of right foot] Episodic Other non-traumatic joint disorders (1 source) Pain of right wrist; Translations: [Pain in right wrist] 11-21-2024 Episodic Other screening for suspected conditions (not mental disorders or infectious disease) (20 sources) Mammography abnormal; Translations: [Other abnormal and inconclusive findings on diagnostic imaging of breast] Onset: 3 01-19-2023 Episodic Other skin disorders (1 source) Eruption; Translations: [Rash and other nonspecific skin eruption] 03-26-2024 Episodic Residual codes; unclassified (20 sources) Tobacco use and exposure - finding; Translations: [Tobacco use] 12-28-2021 Episodic Residual codes; unclassified (7 sources) History of colonoscopy; Translations: [Other specified postprocedural states] 08-01-2018 Episodic Residual codes; unclassified (6 sources) History of ankle surgery; Translations: [Other specified postprocedural states] 08-01-2018 Episodic Residual codes; unclassified (6 sources) Tobacco user; Translations: [Tobacco use] Onset: 5 11-21-2024 Episodic Residual codes; unclassified (1 source) Tobacco use; Translations: [Tobacco abuse] Onset: 5 Episodic Residual codes; unclassified (4 sources) H/O: urinary anomaly; Translations: [Personal history of other specified conditions] 05-26-2025 Episodic Residual codes; unclassified (1 source) Personal history of other specified conditions; Translations: [Personal history of other specified conditions] Onset: 5 Episodic Spondylosis; intervertebral disc disorders; other back problems (20 sources) Cervical spondylosis; Translations: [Other spondylosis with radiculopathy, cervical region] Onset: 9 10-08-2018 Chronic Spondylosis; intervertebral disc disorders; other back problems (20 sources) Neck pain; Translations: [Cervicalgia] Onset: 3 Episodic Substance-related disorders (4 sources) Tobacco user; Translations: [Nicotine dependence, unspecified, uncomplicated] 07-31-2008 Chronic Superficial injury; contusion (3 sources) Hematoma of left lower leg; Translations: [Contusion of left lower leg, initial encounter] Episodic Systemic lupus erythematosus and connective tissue disorders (20 sources) Giant cell arteritis with polymyalgia rheumatica; Translations: [Giant cell arteritis with polymyalgia rheumatica] Onset: 2 Resolved: 7 Chronic Thyroid disorders (20 sources) Thyroid nodule; Translations: [Nontoxic single thyroid nodule] Onset: 3 03-12-2023 Chronic Unclassified (1 source) History of arthrodesis of ankle; Translations: [History of ankle fusion] Past or Other Problems Problem Classification Problem Date Documented Da te Episodic/Chronic Cardiac dysrhythmias (20 sources) Palpitations; Translations: [Palpitations] Onset: 12-28-2021 12-28-2021 Episodic Diabetes mellitus without complication (20 sources) Hyperglycemia; Translations: [Hyperglycemia, unspecified] Onset: 12-20-2023 12-17-2023 Episodic Heart valve disorders (20 sources) Mitral valve prolapse; Translations: [Nonrheumatic mitral (valve) prolapse] Resolved: 01-19-2023 01-18-2018 Chronic Heart valve disorders (20 sources) Heart murmur; Translations: [Cardiac murmur, unspecified] Onset: 01-18-2018 01-18-2018 Episodic Joint disorders and dislocations; trauma-related (20 sources) Tear of medial meniscus of knee; Translations: [Tear of medial cartilage or meniscus of knee, current] Onset: 12-10-2007 07-31-2008 Episodic Malaise and fatigue (20 sources) Fatigue; Translations: [Other fatigue] Onset: 03-12-2023 03-12-2023 Episodic Nutritional deficiencies (20 sources) Iron deficiency; Translations: [Iron deficiency] Onset: 03-12-2023 03-12-2023 Episodic Other aftercare (20 sources) assisted systemic steroid user; Translations: [assisted (current) use of systemic steroids] Onset: 03-02-2017 03-02-2017 Episodic Other aftercare (2 sources) Other intermediate card tender (current) drug therapy; Translations: [Encounter for long-term (current) use of medications] Onset: 01-19-2023 Episodic Other bone disease and musculoskeletal deformities (20 sources) Disorder of skeletal system; Translations: [Disorder of bone, unspecified] Resolved: 03-05-2016 03-05-2016 Episodic Other connective tissue disease (20 sources) Weakness of left arm; Translations: [Other symptoms and signs involving the musculoskeletal system] Onset: 10-08-2018 10-08-2018 Episodic Other connective tissue disease (20 sources) Other symptoms and signs involving the musculoskeletal system; Translations: [Other musculoskeletal symptoms referable to limbs] Onset: 10-08-2018 10-08-2018 Episodic Other connective tissue disease (20 sources) Dupuytren contracture of right palm; Translations: [Palmar fascial fibromatosis [Dupuytren]] Onset: 12-17-2023 12-17-2023 Episodic Other connective tissue disease (1 source) Myalgia, unspecified site; Translations: [Myalgia] Onset: 02-13-2025 Episodic Other connective tissue disease (1 source) Ganglion, unspecified site; Translations: [Ganglion cyst] Onset: 05-23-2024 Episodic Other gastrointestinal disorders (20 sources) Dysphagia; Translations: [Dysphagia, unspecified] Onset: 05-09-2021 05-09-2021 Episodic Other gastrointestinal disorders (1 source) Diarrhea, unspecified; Translations: [Diarrhea due to malabsorption] Onset: 05-09-2021 Episodic Other lower respiratory disease (20 sources) Dyspnea; Translations: [Shortness of breath] Onset: 12-28-2021 Resolved: 01-19-2023 12-28-2021 Episodic Other lower respiratory disease (20 sources) Nodule of lung; Translations: [Solitary pulmonary nodule] Onset: 12-17-2023 12-17-2023 Episodic Other nervous system disorders (20 sources) Carpal tunnel syndrome; Translations: [Carpal tunnel syndrome, unspecified upper limb] Resolved: 10-29-2007 10-29-2007 Chronic Other nervous system disorders (20 sources) Tremor; Translations: [Tremor, unspecified] Onset: 10-08-2018 10-08-2018 Episodic Other nervous system disorders (20 sources) Paresthesia of left upper limb; Translations: [Paresthesia of skin] Onset: 10-08-2018 10-08-2018 Episodic Other nervous system disorders (20 sources) Impairment of balance; Translations: [Other abnormalities of gait and mobility] Onset: 03-12-2023 03-12-2023 Episodic Other skin disorders (20 sources) Infection of sebaceous cyst; Translations: [Sebaceous cyst] Onset: 03-31-2016 03-31-2016 Episodic Other skin disorders (20 sources) Actinic keratosis; Translations: [Actinic keratosis] Onset: 01-18-2018 01-18-2018 Episodic Other upper respiratory disease (20 sources) Allergic rhinitis; Translations: [Allergic rhinitis, unspecified] Resolved: 10-29-2007 10-29-2007 Chronic Poisoning by nonmedicinal substances (2 sources) Hornet sting; Translations: [Toxic effect of venom of hornets, accidental (unintentional), initial encounter] Onset: 05-23-2024 05-23-2024 Episodic Residual codes; unclassified (20 sources) Family history of aneurysm of artery; Translations: [Family history of ischemic heart disease and other diseases of the circulatory system] Onset: 01-17-2017 01-17-2017 Episodic Residual codes; unclassified (20 sources) H/O: fracture; Translations: [Other specified postprocedural states] Onset: 01-19-2023 01-19-2023 Episodic Residual codes; unclassified (20 sources) Reduced libido; Translations: [Decreased libido] Onset: 03-12-2023 03-12-2023 Episodic Skin and subcutaneous tissue infections (20 sources) Cellulitis and abscess of face; Translations: [Cellulitis of face] Onset: 10-03-2008 05-10-2010 Episodic Sprains and strains (20 sources) Strain of neck muscle; Translations: [Strain of muscle, fascia and tendon at neck level, initial encounter] Onset: 08-26-2018 08-26-2018 Episodic Unclassified (7 sources) history of bartholin cyst removal 03-08-2022 Unclassified (7 sources) history of ulnar nerve transplant 03-08-2022 Results Test Name Value Interpretation Reference Range Facility MR/[facility] 06-26-2025 MR/GI [facility] [address], [address] [place] [address] OFFICE VISIT Date of Service: 06/26/25 MR#: [id number] Acct: [id number] Name: CECELIA QUIROZ Rep #: [id number] : 1950 Provider: Dr. Madeline Kyle i, MD Age/Sex: 75/F Location: [facility] [place] Status: Signed Intake Vital Signs 06/18/25 06:54 06/26/25 13:42 Height 5 ft 3 in 5 ft 3 in Weight: 139 lb BMI 24.6 BP 123/70 H Pulse 85 Intake Visit Reasons: BIOPSY RESULTS Chief Complaint: postoperative visit with Biopsy results Philosophy Instructor Required: No Accompanied by: self Is patient in pain?: Yes (left sided pelvic pain ) Pain scale (1-10): 10 Allergies No Known Allergies Allergy (Verified 06/26/25 13:45) Medications ???Medication ???Instructions ???Recorded ???Confirmed ???Type prednisone 10 mg tablet 10 mg PO DAILY 04/05/14 06/26/25 H istory metoprolol succinate 50 mg 25 mg PO DAILY tremors 07/02/20 History tablet,extended release 24 hr cholestyramine-asparta me 4 gram 4 gm PO BID 11/20/20 06/26/25 Hist ory oral powder loperamide 2 mg capsule 2 mg PO 4X/DAY PRN PRN Diarrhea 06/26/25 History denosumab 60 mg/mL subcutaneous 60 mg subcut [id number] 05/26/2503/13 History syringe (Prolia) latanoprost 0.005 % eye drops 1 drp ophthalmic (eye) QHS 2 5 06/26/25 History primidone 250 mg tablet 250 mg PO QHS TREMORS 06/12/2503/13 History oxycodone-acetaminophe n 5 mg-325 1 tab PO Q8H PRN pain 3 days #10 1 06/26/25 Rx mg tablet tabs ciprofloxacin HCl 500 mg tablet 500 mg PO BID 7 days #14 tabs 03/1306/26/25 Rx metronidazole 500 mg tablet 500 mg PO BID #14 tabs 06/26/25 Rx Have you fallen in the past year?: No Nurse's Note: Bladder scan PVR 12cc. Patient states she is not sure if she is infected today, has on the left side of her pelvis and she is pooping mucus and blood PFSH Medical History Wears dentures History of steroid therapy History of diverticulitis Smoker Ulcer Polycystic ovaries IBS (irritable bowel syndrome) Hypoglycemia GI problem Glaucoma Gallstones Cataracts, bilateral Cancer Breast lump Bone fracture Arthritis Tremor Bartholin cyst History of uterine cancer Osteoarthritis GERD (gastroesophageal reflux disease) Chest pain at rest Giant cell arteritis with polymyalgia rheumatica Surgical History History of medial meniscus repair of left knee History of right breast biopsy Status post fine needle aspiration History of breast biopsy ( 07/2018) History of appendectomy Status post ORIF of fracture of ankle history of ulnar nerve transplant History of arthroplasty of left shoulder History of colonoscopy History of partial hysterectomy history of bartholin cyst removal Family History Brother Cancer liver and lymphoma Sister Cancer lung Diabetes Father Diabetes Heart disease Myocardial infarction Mother Heart disease Other Anesthesia complication Arthritis Bleeding disorder H/O transfusion of whole blood Hypertension Kidney disease Melanoma Social History Smoking Status: Current every day smoker (Patient did not smoke today.) tobacco type: cigarettes alcohol intake: never substance use type: does not use what type of physical activity do you participate in: none do you feel safe at home: Yes HPI HPI Urology Chief Complaint: postoperative visit with Biopsy results Details: CECELIA QUIROZ, is a 75 F. She has been having left lower quadrant abdominal pain. She is having blood and mucous and minimal amount of stool. This started about 4 days ago. No vomiting but intermittent nausea. No fever, she does have hot flashes. No hematuria. No dysuria. It feels like her previous episodes of diverticulitis. She agreed to starting treatment today and follow up with PCP. She is not having any voiding concerns. No hematuria, dysuria, bladder pain or symptoms of infection in the urine today. Her biopsy results are not back yet, will plan to discuss when they are. ROS Const Constitutional: Positive for fatigue; No chills, fever(s), headache(s), night sweats, weakness, weight change, abnormal sleep pattern or change in appetite Eyes Eyes: No change in vision ENT ENT: No headache(s) or dry mouth Resp Respiratory: Positive for cough, shortness of breath and wheezing; No chest congestion Cardio Cardiology: Positive for other (No chest pain.); No irregular heart rhythm or lightheadedness Gastro GI: Positive for abdominal pain, change in bowel habits, diarrhea and Blood in stool; No (more content not included)... Normal [facility] Discharge Instructionon 05-22 Discharge Instruction [facility] Medical Records Department [address] [place] [address] Instructions for Home/Discharge Instructions 06/18/25 0808 MR#: [id number] Acct: [id number] Name: CECELIA QUIROZ Rep #: [id number] : 1950 75 From: Madeline Obrien MD PCP: Dr. Miah Cottrell, DO Status:REG SDC Discharge Instructions Diet Discharge Diet: No restrictions Activity Discharge Activity: Return to Normal Activity Dressing / Incision Call your doctor if you observe: Fever of 101 or Higher, Inability to urinate and Inability to have a bowel movement Follow Up Care Please Follow Up With: Madeline Obrien MD Test Results: Test results from this visit will be discussed in further detail at your follow-up appointment, if applicable. Discharge Plan Admission Attending Provider: Madeline Obrien Primary Care Provider: Miah Cottrell Instructions Print Language: Kuwaiti Discharge Orders/Prescriptions Prescriptions: New oxycodone-acetaminophe n 5-325 mg tablet 1 tab PO Q8H PRN (Reason: pain) 3 Days Qty: 10 0RF cephalexin 500 mg capsule 500 mg PO Q12 3 Days Qty: 6 0RF Continued latanoprost 0.005 % drops 1 drp ophthalmic (eye) QHS Prolia 60 mg/mL syringe 60 mg subcut [id number] prednisone 10 MG tablet 10 mg PO DAILY Patient Comments: STEROID metoprolol succinate 50 MG tablet extended release 24 hr 25 mg PO DAILY loperamide 2 MG capsule 2 mg PO 4X/DAY PRN PRN (Reason: Diarrhea) cholestyramine-asparta me 239.4 GM powder 4 gm PO BID primidone 250 mg tablet 250 mg PO QHS Referrals / Follow Up: Miah Cottrell DO [Primary Care Provider, Medical] Disposition Disposition (needs filled in before D/C Order can be placed): Home, Self Care 06/18/25 08 Madeline Obrien MD CC: Dr. Miah Cottrell DO Signed Normal [facility] MR/POSTOP.[facility] 06-18-2025 MR/POSTOP.[facility] Medical Records Department [address] [place] [address] Anesthesia Postop Eval I 06/18/25 0833 MR#: [id number] Acct: [id number] Name: CECELIA QUIROZ Rep #: [id number] : 1950 75 From: Elal Gray CRNA PCP: Dr. Miah Cottrell DO Status:REG SDC Y Race: C Location: [place] [address] Anesthesia: Postop Eval I Current Vital Signs Temperature: 97 F Pulse Rate: 56 Blood Pressure: 119/51 Respiratory Rate: 16 Pulse Ox: 100 Oxygen Delivery Method: Room Air Assessment Airway patent: Yes Spontaneous unlabored respirations: Yes Mental status: Awake and Calm nausea: No Vomiting: No Anesthesia Complication: No Fluid Hydration Crystalloid volume administer (ml): 200 Total IV fluid infused: 200 Progress Note Anesthesia document: Postop Eval 1 completed: Yes 06/18/25832 Ella Marina SENIOR JAVA SOFTWARE DEVELOPER Cosigner Signature: Date CC: Signed Normal [facility] MR/[id number] 06-18-2025 [place] [place] [facility] Medical Records Department [address] [place] [address] Anesthesia Postop Eval II 06/18/25 1147 MR#: [id number] Acct: [id number] Name: CECELIA QUIROZ Rep #: [id number] : 1950 75 From: Azael Gilbert MD PCP: Dr. Miah Cottrell, DO Status:[facility] Y Race: C [place] [facility] [place]esthesia Postop Eval I Sum Postop Eval Completion status Anesthesia document: Postop Eval 1 completed: Yes Anesthesia Postop Eval I Summary Anesthesia Postop Eval I Summary: Anesthesia Postop Eval I: Assessment Summary Airway patent Yes 06/18/25 08:33 SENIOR JAVA SOFTWARE DEVELOPER.CHRISTIEOBY Spontaneous unlabored Yes 06/18/25 08:33 SENIOR JAVA SOFTWARE DEVELOPER.SKOBY respirations Mental status Awake,Calm 06/18/25 08:33 SENIOR JAVA SOFTWARE DEVELOPER.SKOBY nausea No 06/18/25 08:33 SENIOR JAVA SOFTWARE DEVELOPER.SKOBY Vomiting No 06/18/25 08:33 SENIOR JAVA SOFTWARE DEVELOPER.SKOBY Anesthesia Postop Eval I: Fluid Summary Crystalloid volume administer 200 06/18/25 08:33 SENIOR JAVA SOFTWARE DEVELOPER.SKOBY (ml) Colloids volume administered ( ml) Blood Product volume administered (ml) Total IV fluid infused 200 06/18/25 08:33 SENIOR JAVA SOFTWARE DEVELOPER.SKOBY Anesthesia Postop Eval I: Summary Notes Anesthesia Complication No 06/18/25 08:33 SENIOR JAVA SOFTWARE DEVELOPER.SKOBY Anesthesia Complication Comment: Post-operative progress note Anesthesia: Postop Eval II Evaluation Mental status: Awake and Calm Pain Level: 1 nausea: No Vomiting: No Complications Anesthesia Complication: No 06/18/25 1148 Date Azael Gilbert MD Cosigner Signature: Date CC: Signed Normal [facility] Operative Reporton 5 Operative Report [facility] Medical Records Department [address] [place] [address] Operative Report 06/18/2510 MR#: [id number] Acct: [id number] Name: CECELIA QUIROZ Rep #: [id number] : 1950 75 From: Madeline Obrien MD PCP: Dr. Miah Cottrell, DO Status:[facility] [place] [facility] Operative Report (Standard) Operative Information Date of Procedure: 06/18/25 Pre-Operative Diagnosis: Bladder lesion, gross hematuria Post-Operative Diagnosis: Same Surgery/Procedure Performed: Cystoscopy with biopsy and fulguration claims supervisor: No Type of Anesthesia: MAC RN Documented Start/Stop Times: Operation Date: 06/18/25 08:20 Case Time Into Pre-Op 06/18/25 06:42 Out of Pre-Op 06/18/25 08:02 Anesthesia Start 06/18/25 08:06 Into Room 06/18/25 08:06 Procedure Start 06/18/25 08:16 Procedure End 06/18/25 08:23 Anesthesia End 06/18/25 08:27 Out of Room 06/18/25 08:27 Into Recovery 06/18/25 08:31 Into Phase II Recovery 06/18/25 08:44 Out of Recovery 06/18/25 08:44 Procedure Start Time: 08:16 Procedure Stop Time: 08:23 Select all DRAINS/GRAFTS/IMPLANTS that apply: None Estimated Blood Loss: 5cc Specimen collected: Yes Description of specimen(s) removed: Bladder biopsy x 3 Description of surgery: The patient was taken to the operating room and placed on the operating room table. Anesthesia monitored the head, neck, airway, IV access and vital signs throughout the case. Once anesthesia was appropriately administered, she was placed into dorsolithotomy position and was prepped and draped in usual sterile fashion. The cystoscope was inserted through the urethra under direct visualization into the urinary bladder. The bladder mucosa and the urethra were visualized in their entirety. The area of concern was identified. It was an approximately 0.75 cm area consistent with an early papillary lesion on the right bladder wall with surrounding erythema. Using biopsy forceps, this tissue was removed and sent for evaluation. This area was then cauterized with a Bugbee for hemostatic control and tissue treatment. No other lesions were identified. At this time the patient's bladder was emptied and the cystoscope was removed. She was awakened and taken to the recovery room in good condition. There were no complications during this procedure. Surgical Findings: 0.75 cm papillary erythematous lesion right bladder wall Complications Complications: No Admit VTE Documentation VTE Present on Admission: Yes VTE Mechan Device Prophylaxis: SCD's VTE Pharm Prophylaxis ordered?: No Reason prophylaxis not ordered: Treatment Not Indicated 06/18/25 0857 Cosigner Signature (if applicable): CC: Dr. Madeline Obrien MD; Dr. Miah Cottrell DO Signed ADDENDUM by Dr. Madeline Obrien MD on 06/18/25 at 1028 Urology Urology: 02455 Cystourethroscopy w/ biopsy Multi Select Codes Urology Urology Charge Forwarding-multi code: [id number] Cysto w/ Removal of Lesions; small 06/18/25 1028 Cosigner Signature (if applicable): cc: Dr. Madeline Obrien MD; Dr. Miah Cottrell DO * Signed Normal [facility] Surgery Specimen Level Lois 06-18-2025 Surgery Specimen Level IV ---- Patient Age/Sex Location Account Attending Physician ---- QUIROZCECELIA FERRARI Ibis 75/F [facility] [id number] Dr. Madeline Obrien MD ---- Specimen: [id number] Received: 06/18/25 Status: TORRES Ching Num: [id number] Spec Type: BLADDER BX Subm Dr: Dr. Madeline Obrien MD HEADER OPERATION: Cysto, bladder, biopsy PRE-OP DIAGNOSIS: Gross hematuria, overactive bladder, nocturia, urge incontinence TISSUE SUBMITTED: A- Bladder lesion ---- MICROSCOPIC DIAGNOSIS A. Bladder, biopsy: - [place] urothelium of normal thickness with acute and chronic inflammation, negative for malignancy. - Focal cystitis glandularis. - Lamina propria present, inflamed and edematous. - No muscularis propria identified. MICROSCOPIC DESCRIPTION Slides are reviewed. GROSS DESCRIPTION A. Received in formalin labeled with the patient's name and date of . Designated as bladder lesion are 3 white, focally erythematous tissue fragments, 0.2 cm to 0.4 cm. Entirely submitted in 1 cassette. [place] 06/18/2025 CPT:45634 ---- Patient Age/Sex Location Account Attending Physician ---- CECELIA QUIROZ 75/F [facility] [id number] Dr. Madeline Obrien MD ---- Signed (signature on file) Dr. Kayla Martinez MD 06/26/25 1410 ---- Normal [facility] 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: Performed By: #### P DEREK #### [facility] [address] [place], [address] Activated partial thrombopla stin time (aPTT) in platelet poor plasma by coagulation aOrdered By: Azael Gilbert on 06-16-2025 aPTT Coag (PPP) [Time] 29.8 s 24.1-36.2 [facility] Anion gap in Serum or Plasma Ordered By: Madeline Obrien on 06-16-2025 Anion gap [Moles/Vol] 11 mmol/L 01-01 [facility] BUN/creatinine ratioOrdered By: Madeline Obrien on 06-16-2025 Urea nitrogen/Creatinine [Mass ratio] 19.5 mg/mg 06-08 [facility] Basic Metabolic Profile (BMP )on 06-16-2025 BUN/CRE 19.5 RATIO Normal 06-08 [facility] 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: Performed By: #### L 300.4310, L300.3900, L500.3400 #### [facility] [address] [place], [address] Calcium [Mass/Vol] 9.0 mg/dL Normal 7.6-11.0 [facility] 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: Performed By: #### L 300.4310, L300.3900, L500.3400 #### [facility] [address] [place], [address] Chloride [Moles/Vol] 104 mmol/L Normal 98-108 [facility] 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: Performed By: #### L 300.4310, L300.3900, L500.3400 #### [facility] [address] [place], [address] CO2 [Moles/Vol] 26.1 mmol/L Normal 21.0-32.0 [facility] 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: Performed By: #### L 300.4310, L300.3900, L500.3400 #### [facility] [address] [place], [address] Creatinine [Mass/Vol] 0.71 mg/dL Normal 0.70-1.20 [facility] 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: Performed By: #### L 300.4310, L300.3900, L500.3400 #### [facility] [address] [place], [address] GAP 11 Normal 5-15 [facility] 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: Performed By: #### L 300.4310, L300.3900, L500.3400 #### [facility] [address] [place], [address] GFR/1.73 sq M.predicted among non-blacks MDRD (S/P/Bld) [Vol rate/Area] 88 mL/min/{1.73_m2} Normal >60 [facility] 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: Result Comment: mL/m in/1.73m2 CKD-EPI Creatinine Equation (2020) Performed By: #### L 300.4310, L300.3900, L500.3400 #### [facility] [address] [place], [address] Glucose [Mass/Vol] 93 mg/dL Normal 70-99 [facility] 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: Performed By: #### L 300.4310, L300.3900, L500.3400 #### [facility] [address] [place], [address] Potassium [Moles/Vol] 3.8 mmol/L Normal 3.3-5.1 [facility] 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: Performed By: #### L 300.4310, L300.3900, L500.3400 #### [facility] [address] [place], [address] Sodium [Moles/Vol] 141 mmol/L Normal 133-145 [facility] 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: Performed By: #### L 300.4310, L300.3900, L500.3400 #### [facility] [address] [place], [address] Urea nitrogen [Mass/Vol] 14 mg/dL Normal 4-19 [facility] 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: Performed By: #### L 300.4310, L300.3900, L500.3400 #### [facility] [address] [place], [address] Bilirubin directOrdered By: Azael Gilbert on 06-16-2025 Bilirubin.direct [Mass/Vol] 0.16 mg/dL 0.00-0.30 [facility] Bilirubin, totalOrdered By: Azael Gilbert on 06-16-2025 Bilirubin [Mass/Vol] 0.44 mg/dL 0.00-1.30 [facility] CBC-Complete Blood Cnt No Di ffon 06-16-2025 Erythrocyte distribution width (RBC) [Ratio] 13.3 % Normal 11.6-14.6 [facility] 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: Performed By: #### L 300.4310, L300.3900, L500.3400 #### [facility] [address] [place], [address] Hematocrit (Bld) [Volume fraction] 39.4 % Normal 37-47 [facility] 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: Performed By: #### L 300.4310, L300.3900, L500.3400 #### [facility] [address] [place], [address] Hemoglobin (Bld) [Mass/Vol] 13.2 g/dL Normal 12.0-15.0 [facility] 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: Performed By: #### L 300.4310, L300.3900, L500.3400 #### [facility] [address] [place], [address] MCH (RBC) [Entitic mass] 32.6 pg High 27.0-32.0 [facility] 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: Performed By: #### L 300.4310, L300.3900, L500.3400 #### [facility] [address] [place], [address] MCHC (RBC) [Mass/Vol] 33.5 g/dL Normal 32-36 [facility] 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: Performed By: #### L 300.4310, L300.3900, L500.3400 #### [facility] [address] [place], [address] MCV (RBC) [Entitic vol] 97.3 fL Normal 81-99 [facility] 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: Performed By: #### L 300.4310, L300.3900, L500.3400 #### [facility] [address] [place], [address] Platelet mean volume (Bld) [Entitic vol] 10.4 fL Normal 6.2-12.0 [facility] 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: Performed By: #### L 300.4310, L300.3900, L500.3400 #### [facility] [address] [place], [address] Platelets (Bld) [#/Vol] 308 10*3/uL Normal 150-450 [facility] 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: Performed By: #### L 300.4310, L300.3900, L500.3400 #### [facility] [address] [place], [address] RBC (Bld) [#/Vol] 4.05 10*6/uL Low 4.2-5.4 [facility] 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: Performed By: #### L 300.4310, L300.3900, L500.3400 #### [facility] [address] [place], [address] RDW SD 48.1 fl High 35.1-43.9 [facility] 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: Performed By: #### L 300.4310, L300.3900, L500.3400 #### [facility] [address] [place], [address] WBC (Bld) [#/Vol] 11.9 10*3/uL High 4.4-11.0 [facility] 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: Performed By: #### L 300.4310, L300.3900, L500.3400 #### [facility] [address] [place], [address] Carbon dioxide, total [Moles /volume] in Central venous bloodOrdered By: Madeline Obrien on 06-16-2025 CO2 [Moles/Vol] 26.1 mmol/L 21.0-32.0 [facility] Chloride assayOrdered By: Tin Obrien on 06-16-2025 Chloride [Moles/Vol] 104 mmol/L 98-108 [facility] Erythrocyte distribution wid th ratioOrdered By: Madeline Obrien on 06-16-2025 Erythrocyte distribution width (RBC) [Ratio] 13.3 % 11.6-14.6 [facility] Erythrocyte distribution wid th standard deviationOrdered By: Madeline Obrien on 06-16-2025 Erythrocyte distribution width (RBC) [Ratio] 48.1 fl High 35.1-43.9 [facility] Glomerular filtration rate ( GFR) estimation/1.73 sq m using serum, plasma, or whole bOrdered By: Madeline Obrien on 06-16-2025 GFR/1.73 sq M.predicted among non-blacks MDRD (S/P/Bld) [Vol rate/Area] 88 mL/min/{1.73_m2} >60 [facility] 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: mL/min/1.73m2 CKD-EP I Creatinine Equation (2020) Hematocrit Auto (Bld) [Volum e fraction]Ordered By: Madeline Obrien on 06-16-2025 Hematocrit (Bld) [Volume fraction] 39.4 % 37-47 [facility] Hemoglobin measurementOrdere d By: Madeline Obrien on 06-16-2025 Hemoglobin (Bld) [Mass/Vol] 13.2 g/dL 12.0-15.0 [facility] International normalized rat io (INR) calculationOrdered By: Azael Gilbert on 06-16-2025 INR Coag (Bld) [Relative time] 1.1 {INR} [facility] - Chemistry and C hemistry - challengeOrdered By: Azael Gilbert on 06-16-2025 AST [Catalytic activity/Vol] 23 U/L <32 [facility] Liver Profileon 06-16-2025 Albumin [Mass/Vol] 4.1 g/dL Normal 3.4-4.8 [facility] 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: Performed By: #### L 300.4310, L300.3900, L500.3400 #### [facility] [address] [place], [address] ALK PHOS 69 U/L Normal 35-104 [facility] 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: Performed By: #### L 300.4310, L300.3900, L500.3400 #### [facility] [address] [place], [address] ALT [Catalytic activity/Vol] 12 U/L Normal <=34 [facility] 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: Performed By: #### L 300.4310, L300.3900, L500.3400 #### [facility] [address] [place], [address] AST [Catalytic activity/Vol] 23 U/L Normal <=31 [facility] 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: Performed By: #### L 300.4310, L300.3900, L500.3400 #### [facility] [address] [place], [address] Bilirubin [Mass/Vol] 0.44 mg/dL Normal 0.00-1.30 [facility] 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: Performed By: #### L 300.4310, L300.3900, L500.3400 #### [facility] [address] [place], [address] Bilirubin.direct [Mass/Vol] 0.16 mg/dL Normal 0.00-0.30 [facility] 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: Performed By: #### L 300.4310, L300.3900, L500.3400 #### [facility] [address] [place], [place], [address] [phone] Globulin (S) [Mass/Vol] 3.3 g/dL Normal 2.2-4.2 [facility] 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: Performed By: #### L 300.4310, L300.3900, L500.3400 #### [facility] [address] [place], [place], [address] T PROT 7.3 g/dL Normal 5.9-8.4 [facility] 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: Performed By: #### L 300.4310, L300.3900, L500.3400 #### [facility] [address] [place], [place], [address] MCV (mean corpuscular volume ) determinationOrdered By: Madeline Obrien on 06-16-2025 MCV (RBC) [Entitic vol] 97.3 fL 81-99 [facility] Mean corpuscular hemoglobin (MCH) determinationOrdered By: Madeline Obrien on 06-16-2025 MCH (RBC) [Entitic mass] 32.6 pg High 27.0-32.0 [facility] Mean corpuscular hemoglobin concentration (MCHC) determinationOrdered By: Madeline Obrien on 06-16-2025 MCHC (RBC) [Mass/Vol] 33.5 g/dL 32-36 [facility] Mean platelet volume determi nationOrdered By: Madeline Obrien on 06-16-2025 Platelet mean volume (Bld) [Entitic vol] 10.4 fL 6.2-12.0 [facility] Partial Thromboplast Timeon 06-16-2025 aPTT Coag (Bld) [Time] 29.8 s Normal 24.1-36.2 [facility] 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: Performed By: #### L 300.4310, L300.3900, L500.3400 #### [facility] [address] [place], [address] Platelet countOrdered By: Tin Obrien on 06-16-2025 Platelets (Bld) [#/Vol] 308 10*3/uL 150-450 [facility] Potassium measurement (mass/ volume)Ordered By: Madeline Obrien on 06-16-2025 Potassium (Unsp spec) [Mass/Vol] 3.8 mmol/L 3.3-5.1 [facility] Prothrombin Time w/INRon INR Coag (PPP) [Relative time] 1.1 {INR} Normal [facility] 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: Performed By: #### L 300.4310, L300.3900, L500.3400 #### [facility] [address] [place], [address] PT Coag (PPP) [Time] 14.0 s Normal 11.7-14.9 [facility] 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: Performed By: #### L 300.4310, L300.3900, L500.3400 #### [facility] [address] [place], [address] Prothrombin timeOrdered By: Azael Gilbert on 06-16-2025 PT Coag (PPP) [Time] 14.0 s 11.7-14.9 [facility] RBC Auto (Bld) [#/Vol]Ordere d By: Madeline Obrien on 06-16-2025 RBC (Bld) [#/Vol] 4.05 10*6/uL Low 4.2-5.4 [facility] Serum creatinine measurement (mass/volume)Ordered By: Madeline Obrien on 06-16-2025 Creatinine [Mass/Vol] 0.71 mg/dL 0.70-1.20 [facility] Serum globulin measurementOr dered By: Azael Gilbert on 06-16-2025 Globulin (S) [Mass/Vol] 3.3 g/dL 2.2-4.2 [facility] Serum glucose measurement (m ass/volume)Ordered By: Madeline Obrien on 06-16-2025 Glucose [Mass/Vol] 93 mg/dL 70-99 [facility] Serum or plasma alanine prasad otransferase (ALT) measurementOrdered By: Azael Gilbert on 06-16-2025 ALT [Catalytic activity/Vol] 12 U/L <35 [facility] Serum or plasma albumin catherine urement (mass/volume)Ordered By: Azael Gilbert on 06-16-2025 Albumin [Mass/Vol] 4.1 g/dL 3.4-4.8 [facility] Serum or plasma alkaline roz sphatase measurementOrdered By: Azael Gilbert on 06-16-2025 ALP [Catalytic activity/Vol] 69 U/L 35-104 [facility] Serum or plasma calcium catherine urement (mass/volume)Ordered By: Madeline Obrien on 06-16-2025 Calcium [Mass/Vol] 9.0 mg/dL 7.6-11.0 [facility] Serum or plasma urea nitroge n measurement (mass/volume)Ordered By: Madeline Obrien on 06-16-2025 Urea nitrogen [Mass/Vol] 14 mg/dL 4-19 [facility] Sodium levelOrdered By: Bailey Obrien on 06-16-2025 Sodium [Moles/Vol] 141 mmol/L 133-145 [facility] Total proteinOrdered By: Klaudia Gilbert on 06-16-2025 Protein [Mass/Vol] 7.3 g/dL 5.9-8.4 [facility] White blood cell (WBC) count Ordered By: Madeline Obrien on 06-16-2025 WBC (Bld) [#/Vol] 11.9 10*3/uL High 4.4-11.0 [facility] - Chemistry and C hemistry - challengeOrdered By: Madeline Obrien on 06-11-2025 Bilirubin Ql (U) Negative [facility] Glucose Ql (U) Negative [facility] Ketones Ql (U) Negative [facility] pH (U) 6 [pH] [facility] Specific gravity (U) [Rel density] 1.015 [facility] Urobilinogen (U) [Mass/Vol] 0.1241780 mg/dL [facility] - Hematology and Cell countsOrdered By: Madeline Obrien on 06-11-2025 Hemoglobin Ql (U) Large [facility] - UrinalysisOrder ed By: Madeline Obrien on 06-11-2025 Nitrite Ql (U) Negative [facility] Protein Ql (U) Negative [facility] No Panel InformationOrdered By: Madeline Obrien on 06-11-2025 Urine Leukocytes Negatve [facility] Urine Non-Hemolyzed Blood Negative [facility] Office Visit Reporton 2024 Office Visit Report [facility] [address] [place] [place] [address] OFFICE VISIT Date of Service: 06/11/25 MR#: [id number] Acct: [id number] Patient: CECELIA QUIROZ Rep #: [id number] : 1950 Provider: Dr. Madeline Kyle i, MD Age/Sex: 75/F [place] [facility] Status: Signed Intake Vital Signs 06/09/25 13:55 Height 5 ft 3 in Weight: 139 lb BMI 24.6 BP 137/69 H Pulse 82 Intake Visit Reasons: Pre-op urine C S sign consent Chief Complaint: preop urine and consent Allergies No Known Allergies Allergy (Verified 06/09/25 13:54) Have you fallen in the past year?: No Nurse's Note: preoperation urine cts and UA Results POC UA Auto w/o Microscopy Office Urine Color Last Edit by Angelica Tavarez on 06/11/25 15:19 Office Urine Clarity Last Edit by Angelica Tavarez on 06/11/25 15:19 Office Urine Glucose Negative Last Edit by Angelica Tavarez on 06/11/25 15:19 Office Urine Ketones Negative Last Edit by Angelica Tavarez on 06/11/25 15:19 Office Urine Bilirubin Negative Last Edit by Angelica Tavarez on 06/11/25 15:19 Office Urine Urobilinogen 0.2 mg/dL Last Edit by Angelica Tavarez on 06/11/25 15:19 Off Ur Spec [place] 1.015 Last Edit by Angelica Tavarez on 06/11/25 15:19 Office Urine pH 6 Last Edit by Angelica Tavarez on 06/11/25 15:19 Office Urine Protein Negative Last Edit by Angelica Tavarez on 06/11/25 15:19 Office Urine Blood Large Last Edit by Angelica Tavarez on 06/11/25 15:19 Office Urine Blood Hemolyzed Negative Last Edit by Angelica Tavarez on 06/11/25 15:19 Office Urine Nitrate Negative Last Edit by Angelica Tavarez on 06/11/25 15:19 Off Ur Leukocytes Negatve Last Edit by Angelica Tavarez on 06/11/25 15:19 Assessment and Plan Assessment and Plan Orders: Orders POC UA Auto w/o Microscopy Today N39.41 - Urge incontinence Clinical Quality Measures Falls Risk Screening/Assistive Devices Have you fallen in the past year?: No 06/11/252019 Date Madeline Obrien MD Cosigner Signature: Date (if applicable) CC: Normal [facility] - Chemistry and C hemistry - challengeOrdered By: Madeline Obrien on 06-09-2025 Bilirubin Ql (U) Negative [facility] Glucose Ql (U) Negative [facility] Ketones Ql (U) Trace (5) [facility] pH (U) 7.5 [pH] [facility] Specific gravity (U) [Rel density] 1.010 [facility] Urobilinogen (U) [Mass/Vol] 0.9907044 mg/dL [facility] - Hematology and Cell countsOrdered By: Madeline Obrien on 06-09-2025 Hemoglobin Ql (U) Large [facility] - UrinalysisOrder ed By: Madeline Obrien on 06-09-2025 Nitrite Ql (U) Negative [facility] Protein Ql (U) Negative [facility] MR/Viridiana 06-09-2025 /GI [facility] [address], [address] [place] [address] OFFICE VISIT Date of Service: 06/09/25 MR#: [id number] Acct: [id number] Name: CECELIA QUIROZ Rep #: [id number] : 1950 Provider: Dr. Madeline Kyle i, MD Age/Sex: 75/F Location: [facility] [place] Status: Signed Intake Vital Signs 05/26/25 11:49 06/09/25 13:55 Height 5 ft 3 in 5 ft 3 in Weight: 139 lb 139 lb BMI 24.6 24.6 BP 131/70 H 137/69 H Pulse 63 82 Intake Visit Reasons: cystoscopy and pelvic exam Chief Complaint: cystoscopy and pelvic exam Philosophy Instructor Required: No Accompanied by: self Is patient in pain?: No Allergies No Known Allergies Allergy (Verified 06/09/25 13:54) Medications ???Medication ???Instructions ???Recorded ???Confirmed ???Type prednisone 10 mg tablet 10.5 mg PO DAILY 04/05/14 06/09/25 History metoprolol succinate 50 mg 25 mg PO BID tremors 07/02/2005/21 History tablet,extended release 24 hr cholestyramine-asparta me 4 gram 4 gm PO BID 11/20/20 06/09/25 Hist ory oral powder loperamide 2 mg capsule 2 mg PO 4X/DAY PRN PRN Diarrhea 06/09/25 History primidone 50 mg tablet 50 mg PO DAILY 11/20/20 06/09/25 H istory denosumab 60 mg/mL subcutaneous 60 mg subcut [id number] 05/26/25 History syringe (Prolia) latanoprost 0.005 % eye drops 1 drp ophthalmic (eye) QDAY 06/09/25 History Have you fallen in the past year?: No PFSH Medical History Ulcer Polycystic ovaries IBS (irritable bowel syndrome) Hypoglycemia Hypertension GI problem Glaucoma Gallstones Cataracts, bilateral Cancer Breast lump Bone fracture Arthritis Tremor Bartholin cyst History of uterine cancer Osteoarthritis GERD (gastroesophageal reflux disease) Chest pain at rest Giant cell arteritis with polymyalgia rheumatica Surgical History History of right breast biopsy Status post fine needle aspiration History of breast biopsy ( 07/2018) History of appendectomy Status post ORIF of fracture of ankle history of ulnar nerve transplant History of arthroplasty of left shoulder History of colonoscopy History of partial hysterectomy history of bartholin cyst removal Family History Brother Cancer liver and lymphoma Sister Cancer lung Diabetes Father Diabetes Heart disease Myocardial infarction Mother Heart disease Other Anesthesia complication Arthritis Bleeding disorder H/O transfusion of whole blood Hypertension Kidney disease Melanoma Social History Smoking Status: Current every day smoker alcohol intake: never substance use type: does not use what type of physical activity do you participate in: none do you feel safe at home: Yes HPI HPI Urology Chief Complaint: cystoscopy and pelvic exam Details: CECELIA QUIROZ, is a 75 F. She is here for cystoscopy and pelvic exam today. She has no sign of acute urinary tract infection today. She denies hematuria. Questions regarding the procedure were answered and she gives consent to proceed. She is ready to start a medication for her urgency and frequency. ROS Const Constitutional: No chills, fatigue, fever(s), headache(s), night sweats, weakness, weight change, abnormal sleep pattern or change in appetite Eyes Eyes: No change in vision ENT ENT: No headache(s) or dry mouth Resp Respiratory: No cough, chest congestion, shortness of breath or wheezing Cardio Cardiology: Positive for other (No chest pain.); No shortness of breath, irregular heart rhythm or lightheadedness Gastro GI: Positive for other (No nausea.); No abdominal pain, change in bowel habits, constipation, diarrhea or vomiting Musc Musculoskeletal: No abnormal gait Skin Skin: No yellowing of the eye, lesions, itchy eyes, rash or skin ulcer Neuro Neurology: No abnormal gait, confusion, dizziness, weakness, headache(s) or memory loss Psych Psychiatric: No abnormal sleep pattern, No change in appetite, No confusion and No memory loss Endo Endocrine: No fatigue, increased thirst/drinking or weight change Aller/Imm Allergy/Immunologic: No itchy eyes or wheezing Lane/Lymp Hematologic/Lymphatic: No easy bleeding, easy bruising or enlarged lymph nodes Exam Const General: cooperative, healthy appearing, comfortable and no acute distress [facility] Head: normocephalic and atraumatic Ears: hearing grossly normal bilaterally and external ears normal Nose: external nose normal Eyes General: appearance normal, both eyes and all related structures Neck Neck: normal visual inspection and trachea midline Chest Chest palpation inspec (more content not included)... Normal [facility] No Panel InformationOrdered By: Madeline Obrien on 06-09-2025 Urine Leukocytes Negatve [facility] Urine Non-Hemolyzed Blood Negative [facility] CT Abd/Pelvis W/WO Contrasto n 06-01-2025 CT Abd/Pelvis W/WO Contrast [facility] [address] [place] [address] CT Abd/Pelvis W/WO Contrast MR#: [id number] Acct: [id number] Name: CECELIA QUIROZ Rep #: [id number] : 1950 F 75 From: Arnoldo Bajwa MD PCP: Dr. Miah Cottrell, DO Status: REG CLI Study: CT Abd/Pelvis W/WO Contrast Date of Exam: 05/20 11/11 Exam# [id number] Ordering Dr: Madeline Obrien MD PROCEDURE: CT ABD/PELVIS W/WO CONTRAST 06/01/2025 REASON FOR EXAM: GROSS HEMATURIA, SMOKER History of uterine cancer. TECHNIQUE: Procedure Code: [id number] Modality: CT Procedure: CT ABD/PELVIS W/WO CONTRAST Coronal and Sagittal reconstruction series were provided. CONTRAST: Isovue-300 VOLUME: 100 mL One or more dose reduction techniques were used (e.g., Automated exposure control, adjustment of the mA and/or kV according to patient size, use of iterative reconstruction technique. RADIATION DOSE SUMMARY: CTDlvol: 55 mGy DLP: 1701.60 mGycm COMPARISON: None. FINDINGS: Lung bases: The lung bases are clear. There are no pleural effusions. The heart size is normal. There is no pericardial effusion. There is minimal calcific vascular disease of the coronary arteries. There is moderate calcific vascular disease of the visualized thoracic aorta. Liver: Normal size. No mass. There are benign calcified granulomas. Gallbladder: Surgically absent. Spleen: Normal size. There are benign calcified granulomas. Pancreas: Normal size without evidence of mass surrounding inflammation or ductal dilation. Adrenals: Normal. Kidneys: Normal renal sizes. No hydronephrosis. Bladder: Normal. There are no filling defects identified. Reproductive Organs: The uterus is surgically absent. The ovaries are not identified. There is no free fluid in the pelvis. There is no inguinal lymphadenopathy. Bowel: There is severe sigmoid diverticulosis without diverticulitis. There are scattered diverticuli throughout the remainder of the colon. Appendix: Surgically absent Lymph nodes: No suspicious lymph node enlargement. Vasculature: There is diffuse calcific vascular disease of the abdominal aorta. The inferior vena cava and portal venous system are unremarkable. Peritoneum / Retroperitoneum: There are no abnormal intra or retroperitoneal masses or fluid collections. Bones: There is mild compression of the superior endplate of L3. There is degenerative disc disease, L3-4 and L4-5. CT/CT Abd/Pelvis W/WO Contrast IMPRESSION: 1. No evidence of metastatic disease. 2. Calcific vascular disease. 3. Sigmoid diverticulosis. 4. Other findings as noted. Reading Location: [place] [address] CC: Dr. Madeline Obrien MD; Dr. Miah Cottrell DO Agency Legal Counsel: Signed Normal [facility] Non-gynecologic cytology rep ortOrdered By: Inna Dailey on 05-28-2025 Study report [facility] Anion gap in Serum or Plasma Ordered By: Madeline Obrien on 05-26-2025 Anion gap [Moles/Vol] 11 mmol/L - [facility] BUN/creatinine ratioOrdered By: Madeline Obrien on 05-26-2025 Urea nitrogen/Creatinine [Mass ratio] 17.3 mg/mg - [facility] Basic Metabolic Profile (BMP )on 05-26-2025 BUN/CRE 17.3 RATIO Normal 06-08 [facility] 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: Performed By: #### L 500.2500 #### [facility] [address] [place], [address] Calcium [Mass/Vol] 8.6 mg/dL Normal 7.6-11.0 [facility] 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: Performed By: #### L 500.2500 #### [facility] [address] [place], [address] Chloride [Moles/Vol] 107 mmol/L Normal 98-108 [facility] 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: Performed By: #### L 500.2500 #### [facility] [address] [place], [address] CO2 [Moles/Vol] 24.3 mmol/L Normal 21.0-32.0 [facility] 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: Performed By: #### L 500.2500 #### [facility] [address] [place], [address] Creatinine [Mass/Vol] 0.67 mg/dL Low 0.70-1.20 [facility] 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: Performed By: #### L 500.2500 #### [facility] [address] [place], [address] GAP 11 Normal 5-15 [facility] 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: Performed By: #### L 500.2500 #### [facility] [address] [place], [address] GFR/1.73 sq M.predicted among non-blacks MDRD (S/P/Bld) [Vol rate/Area] 91 mL/min/{1.73_m2} Normal >60 [facility] 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: Result Comment: mL/m in/1.73m2 CKD-EPI Creatinine Equation (2020) Performed By: #### L 500.2500 #### [facility] [address] [place], [address] Glucose [Mass/Vol] 99 mg/dL Normal 70-99 [facility] 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: Performed By: #### L 500.2500 #### [facility] [address] [place], [address] Potassium [Moles/Vol] 3.6 mmol/L Normal 3.3-5.1 [facility] 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: Performed By: #### L 500.2500 #### [facility] [address] [place], [address] Sodium [Moles/Vol] 142 mmol/L Normal 133-145 [facility] 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: Performed By: #### L 500.2500 #### [facility] [address] [place], [address] Urea nitrogen [Mass/Vol] 12 mg/dL Normal 4-19 [facility] 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: Performed By: #### L 500.2500 #### [facility] [address] [place], [address] Carbon dioxide, total [Moles /volume] in Central venous bloodOrdered By: Madeline Obrien on 05-26-2025 CO2 [Moles/Vol] 24.3 mmol/L 21.0-32.0 [facility] Chloride assayOrdered By: Tin Obrien on 05-26-2025 Chloride [Moles/Vol] 107 mmol/L 98-108 [facility] Cytology report of Body flui d Cyto stainOrdered By: Madeline Obrien on 05-26-2025 Cytology report Cyto stain Doc (Body fld) SEE PATHOLOGY REPORT [facility] 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: Specimen submitted t o Anatomical Pathology Department for testing. Cytology, Body Fluid / CSFon 05-26-2025 CYTOLOGY,BF/CSF SEE PATHOLOGY REPORT Normal [facility] 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: Order Comment: URINE Result Comment: Spec imen submitted to Anatomical Pathology Department for testing. Performed By: #### L 350.1000 #### [facility] [address] [place], [address] Glomerular filtration rate ( GFR) estimation/1.73 sq m using serum, plasma, or whole bOrdered By: Madeline Obrien on 05-26-2025 GFR/1.73 sq M.predicted among non-blacks MDRD (S/P/Bld) [Vol rate/Area] 91 mL/min/{1.73_m2} >60 [facility] 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: mL/min/1.73m2 CKD-EP I Creatinine Equation (2020) Laboratory - Chemistry and C hemistry - challengeOrdered By: Madeline Obrien on 05-26-2025 Bilirubin Ql (U) Negative [facility] Glucose Ql (U) Negative [facility] Ketones Ql (U) Negative [facility] pH (U) 6 [pH] [facility] Specific gravity (U) [Rel density] 1.010 [facility] Urobilinogen (U) [Mass/Vol] 0.1544504 mg/dL [facility] - Hematology and Cell countsOrdered By: Madeline Obrien on 05-26-2025 Hemoglobin Ql (U) Large [facility] - UrinalysisOrder ed By: Madeline Obrien on 05-26-2025 Nitrite Ql (U) Negative [facility] Protein Ql (U) Negative [facility] MR/Viridiana 05-26-2025 /GI [facility] [address], [address] [place] [address] OFFICE VISIT Date of Service: 05/26/25 MR#: [id number] Acct: [id number] Name: CECELIA QUIROZ Rep #: [id number] : 1950 Provider: Dr. Madeline Kyle i, MD Age/Sex: 75/F [place] [facility] [place] Status: Signed Intake Vital Signs 08/22/21 10:21 05/26/25 11:49 Height 5 ft 3 in 5 ft 3 in Weight: 139 lb BMI 24.6 BP 131/70 H Pulse 63 Intake Visit Reasons: Pressure urgency frequency Chief Complaint: pressure and frequency Philosophy Instructor Required: No Accompanied by: Self Is patient in pain?: No Allergies No Known Allergies Allergy (Verified 05/26/25 11:46) Medications ???Medication ???Instructions ???Recorded ???Confirmed ???Type prednisone 10 mg tablet 10.5 mg PO DAILY 04/05/14 05/26/25 History metoprolol succinate 50 mg 25 mg PO BID tremors 07/02/20 10/0 03/13 History tablet,extended release 24 hr cholestyramine-asparta me 4 gram 4 gm PO BID 11/20/20 05/26/25 Hist ory oral powder loperamide 2 mg capsule 2 mg PO 4X/DAY PRN PRN Diarrhea 05/26/25 History primidone 50 mg tablet 50 mg PO DAILY 11/20/20 05/26/25 H istory denosumab 60 mg/mL subcutaneous 60 mg subcut [id number] 05/26/2503/13 History syringe (Prolia) latanoprost 0.005 % eye drops 1 drp ophthalmic (eye) QDAY 05/26/25 History Have you fallen in the past year?: No Nurse's Note: nocturia 3-4x night. urinary frequency and pressure at day. H/o uterine cancer in 1982- partial hysterectomy Bladder Scan PVR 15cc. PFSH Medical History Ulcer Polycystic ovaries IBS (irritable bowel syndrome) Hypoglycemia Hypertension GI problem Glaucoma Gallstones Cataracts, bilateral Cancer Breast lump Bone fracture Arthritis Tremor Bartholin cyst History of uterine cancer Osteoarthritis GERD (gastroesophageal reflux disease) Chest pain at rest Giant cell arteritis with polymyalgia rheumatica Surgical History History of right breast biopsy Status post fine needle aspiration History of breast biopsy ( 07/2018) History of appendectomy Status post ORIF of fracture of ankle history of ulnar nerve transplant History of arthroplasty of left shoulder History of colonoscopy History of partial hysterectomy history of bartholin cyst removal Family History Brother Cancer liver and lymphoma Sister Cancer lung Diabetes Father Diabetes Heart disease Myocardial infarction Mother Heart disease Other Anesthesia complication Arthritis Bleeding disorder H/O transfusion of whole blood Hypertension Kidney disease Melanoma Social History Smoking Status: Current every day smoker alcohol intake: never substance use type: does not use what type of physical activity do you participate in: none do you feel safe at home: Yes HPI HPI Urology Chief Complaint: pressure and frequency Details: CECELIA QUIROZ, is a 75 F. She is here for evaluation and management of urinary urgency and frequency. She is voiding 7-8 times during the day, 2-4 times at night. There is urge incontinence where she cannot make it to the bathroom. There is no stress incontinence with cough, laugh, sneeze, lifting, etc. She is using no pads in 24 hours. She has not had treatment for this. She has had no urinary tract infections in the last year. She has seen pink in the urine yesterday or the day before. This has been intermittent for years. She did have a negative urologic work up many years ago that was negative. She didn't worry about it becuase the evaluation was negative. She is sexually active. She has some pain, vaginal dryness. She does use a lubricant. There is sometimes a sensation of vaginal bulging. She has the following issues with chronic bowel function: diarrhea since cholecystectomy. She watches her diet and takes Lomotil and cholestyramine. There is mild pelvic pain. She has long standing history of smoking. There is no history of blood clots. Personal history of uterine cancer, s/p hysterectomy. 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 ROS Const Constitutional: No chills, fatigue, fever(s), headache(s), night sweats, weakness, weight change, abnormal sleep pattern or change in appetite Eyes Eyes: No change in vision ENT ENT: No headache(s) or dry mouth Resp Respiratory: No cough, chest congestion, shortness of breath or wheezing Cardio Cardiology: Positive for other (No chest pain.); No shortness of breath, irregular heart rhythm or lig (more content not included)... Normal [facility] No Panel InformationOrdered By: Madeline Obrien on 05-26-2025 Urine Leukocytes Negatve [facility] Urine Non-Hemolyzed Blood Negative [facility] Pap Stain (control)on 2024 Pap Stain (control) -- ---- Patient Age/Sex Location Account Attending Physician ---- CECELIA QUIROZ 75/F LABSPEC [id number] Dr. Madeline Obrien MD ---- Specimen: [id number] Received: 05/27/25 Status: TORRES Ching Num: [id number] Spec Type: MARTHA Butler Dr: Dr. Madeline Obrien MD HEADER OPERATION: Not noted PRE-OP DIAGNOSIS: Gross hematuria TISSUE SUBMITTED: A- Urine for cytology ---- DIAGNOSIS CYTOLOGY A. Urine, cytology: No malignant cells are identified CYTOLOGY STUDY Slides are reviewed. CYTOLOGY GROSS A. Received is 30 ml of yellow-cloudy fluid labeled with the patient's name and and designated per the requisition as urine. Submitted for cytology preparation. 05/27/2025 CPT: 54767 Signed (signature on file) Dr. Inna Dailey DO 05/28/25 0933 ---- Normal [facility] 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: Performed By: #### P PAPS #### [facility] [address] [place], [place], [address] Potassium measurement (mass/ volume)Ordered By: Madeline Obrien on 05-26-2025 Potassium (Unsp spec) [Mass/Vol] 3.6 mmol/L 3.3-5.1 [facility] Serum creatinine measurement (mass/volume)Ordered By: Madeline Obrien on 05-26-2025 Creatinine [Mass/Vol] 0.67 mg/dL Low 0.70-1.20 [facility] Serum glucose measurement (m ass/volume)Ordered By: Madeline Obrien on 05-26-2025 Glucose [Mass/Vol] 99 mg/dL 70-99 [facility] Serum or plasma calcium catherine urement (mass/volume)Ordered By: Madeline Obrien on 05-26-2025 Calcium [Mass/Vol] 8.6 mg/dL 7.6-11.0 [facility] Serum or plasma urea nitroge n measurement (mass/volume)Ordered By: Madeline Obrien on 05-26-2025 Urea nitrogen [Mass/Vol] 12 mg/dL 4-19 [facility] Sodium levelOrdered By: Bailey Obrien on 05-26-2025 Sodium [Moles/Vol] 142 mmol/L 133-145 [facility] BD DXA - AXIAL SKELETONon BD DXA - AXIAL SKELETON * * *Final Repor t* * * DATE OF EXAM: May 15 2025 2:07PM WR 0804 - BD DXA - AXIAL SKELETON / PROCEDURE REASON: Osteoporosis, postmenopausal * * * * Physician Interpretation * * * * EXAMINATION: DXA BONE DENSITOMETRY BD DXA - AXIAL SKELETON PATIENT DEMOGRAPHICS: Age: 75 years, Gender: Female SCANNER INFORMATION: DXA Model: [employer] C [id number] Date Scanned: 05/15/2025 2:07 PM CLINICAL HISTORY: DIAGNOSTIC Osteoporosis, postmenopausal . RISK FACTORS FOR OSTEOPOROSIS AND ASSOCIATED FRACTURES REPORTED BY THIS PATIENT: Please refer to Bone Health Questionnaire in the EMR CURRENT THERAPY: Please refer to Bone Health Questionnaire in the EMR TECHNICAL LIMITATIONS: RESULTS: Lumbar spine (L1, L2, L3, L4): 1.018 g/cm2, T-score -0.3 , Z-score 2.1 Lumbar spine: 2022 : 1.005 g/cm2 No statistically significant change Right Femoral Neck: 0.631 g/cm2, T-score -2.0 , Z-score 0.1 Right Femoral Neck: 2022 : 0.660 g/cm2 No statistically significant change Right Total Hip: 0.780 g/cm2, T-score -1.3 , Z-score 0.5 Right Total Hip: 2022 : 0.769 g/cm2 No statistically significant change Left Femoral Neck: 0.607 g/cm2, T-score -2.2 , Z-score -0.1 Left Femoral Neck: 2022 : 0.603 g/cm2 No statistically significant change Left Total Hip: 0.833 g/cm2, T-score -0.9 , Z-score 0.9 Left Total Hip: 2022 : 0.789 g/cm2 Statistically significant increase CHANGE IS STATISTICALLY SIGNIFICANT IN THE SPINE OR HIP IF GREATER THAN OR EQUAL TO 0.04 g/cm2 VERTEBRAL FRACTURE ASSESSMENT Not performed. TRABECULAR BONE ASSESSMENT TBS not performed: IMPRESSION: THE LOWEST T-SCORE IS -2.2 IN THE LEFT HIP 1) DIAGNOSIS (based on BMD alone): OSTEOPENIA Caution: Medical conditions other than osteoporosis may cause low bone density, such as osteomalacia or renal osteodystrophy. Clinical correlation is necessary. 2) FRACTURE RISK (based on FRAX): 10-year absolute fracture risk: - major osteoporotic fracture = 32 % - hip fracture = 14 % - A diagnosis of Osteoporosis, a 10 year probability of hip fracture greater than or equal to 3% or a 10 year probability of any major osteoporosis-related fracture greater than or equal to 20% should be considered for treatment. - DXA scanner generated FRAX calculations may slightly differ from online FRAX calculations due to differences in software versions. - All recommendations and calculations are to be considered as guidelines and should not replace sound clinical judgement - Caution: Fracture risk may be increased independent of BMD in patients with corticosteroid use, age greater than 65 years, or a history of prior fragility fracture. RECOMMENDATIONS: Follow-up in 2 years or as clinically indicated. Patients that are taking corticosteroids, are transplant recipients or have hyperparathyroidism should have annual follow-up. Follow-up scans should always be done on the same machine for accurate comparison. FOR MORE INFORMATION ABOUT DIAGNOSIS AND TREATMENT: [facility]osis [facility] Metabolic Bone Disease:? www.ccf.org/arthritis/ osteo National Osteoporosis Foundation:? www.nof.org International Society of Clinical Densitometry www.iscd.org Agency Legal Counsel: NAYELY Transcribe Date/Time: May 15 2025 2:44P Dictated by : LUCILA HASKINS MD This examination was interpreted and the report reviewed and electronically signed by: LUCILA HASKINS MD on May 15 2025 2:47PM EST [id number] -2.2 Normal [facility] CNOVon 2025 CNOV Office Visit (NRMDN) CECELIA QUIROZ ([id number]) 1950 F Date Time Provider Department 04/14/25 1:00 PM MARKO WOOD During your visit today, we recorded the following information about you: Pulse Blood pressure Weight 83/minute 130/74 63.3 kg Marko Wood MD 04/21/2025 9:37 AM Signed [facility] - FOLLOW UP EVALUATION Recording using ambient VISup software for draft documentation of the visit was discussed with the patient/authorized junior sales representative; all questions welcomed and answered. Patient/authorized junior sales representative agreed to proceed Miah Cottrell DO [id number] [facility] [id number] Dear Miah Cottrell DO: I had the pleasure of seeing Ms. Quiroz for follow-up today. As you know she is a 75 year old right-handed female with a history of tremor since age 12 . Subjective Previous Plan- 2024 Visit: Continue your medications as you have been taking them. We are not making any changes today. If you feel you are not tolerating them or your symptoms are changing before your next appointment, please feel free to send me a [employer] message or contact the office - Interval History: Cecelia Quiroz is a 75-year-old female with a history of tremors and polymyalgia rheumatica (PMR), presenting for follow-up. Cecelia reports a slight increase in tremors, particularly in the right hand, but describes them as manageable and not significantly affecting daily activities. She notes some impact on her handwriting but attributes this to aging. She does not wish to adjust her medication at this time. She is currently taking primidone at bedtime and metoprolol, prescribed by Dr. Cottrell. She does not endorse any side effects from primidone, such as dizziness or excessive sleepiness, and mentions difficulty sleeping, often taking 2-3 hours to fall asleep. Cecelia reports intermittent numbness and tingling in the right hand, sometimes extending to the entire hand, which she can alleviate by shaking it. These symptoms occur during the day while driving or sitting and are not present at night. She does not report similar symptoms in the left hand. She also experiences neck pain, particularly when reaching overhead, which sometimes radiates up through her head. She has not pursued physical therapy. She mentions a history of a broken humerus, which has healed well. Cecelia reports occasional ankle pain, particularly when lying in certain positions, and a recent episode of head pain reminiscent of her initial PMR symptoms, which resolved quickly. She is currently taking medication for PMR. She does not endorse issues with walking or balance and describes her overall health as boring. She expresses a desire to manage her symptoms conservatively and is not interested in additional medications at this time. Movement Disorders Medications Schedule - as of the start of the visit: Medications Bed metoprolol ER 50 mg BID primidone 250 mg 1 Other Movement Disorder Prior Therapies Propranolol, Primidone propranolol caused diarrhea but did help tremors Questionnaires: In addition, the following areas that may be affected by abnormal involuntary movements were evaluated: Daily activities Difficulties with eatin (none) Difficulties in dressin (none) Difficulties with hygiene activities: 0 (none) Difficulties with handwritin (none) Difficulties with doing hobbies and other activities: 0 (none) Difficulties turning in bed: 0 (none) Difficulties getting out of bed, car or chair: 0 (none) Tremors/Gait/Balance Shaking or tremors: 0 (none) Walking and balance problems: 0 (none) Number of falls in the Last Month: 0 Gait freezin (none) Autonomic/Pain Lightheadeness on standin (none) Urinary problems: 0 (none) Constipation problems: 0 (none) Pain and other sensations: Yes (moderate) Speech/Swallowing Speech problems: 0 (none) Droolin (none) Chewing and swallowing problems: 0 (none) Sleep/Fatigue Sleep problems: Yes (mild) Daytime sleepiness: Yes (slight) Fatigue: Yes (slight) Mood/Behavior Depression: PHQ-9 Score: 5 usually representing mild (5-9) depression. Anxiety: RICHARD-7 Total Score: 1 usually representing no significant (0-4) anxiety. Finally, the following table shows the patient's overall global physical and mental health using the PROMIS scale: PROMIS-10 Flowsheet Row Office Visit from 03/17/2025 in Family Medicine [place] Office Visit from 02/13/2025 in Pain Management Global Physical Health T Score 44.9 42.3 Global Mental Health T Score 45.8 48.3 0-10 Standard Pain Scale 3 3 *PROMIS-10 scoring scale: mean = 50, over 50 is above average, under 50 is below average In addition, the following Parkinson Lifestyle-associated features were evaluated: Conditions Prior to Dx: Depression: No Anxiety: No Melanoma: N (more content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 SPINE WO IVCONo n 02-17-2025 MRI CERVICAL SPINE WO IVCON * * *Final Report* * * DATE OF EXAM: Feb 17 2025 2:40PM [facility] 0297 - MRI CERVICAL SPINE WO IVCON / PROCEDURE REASON: Spinal stenosis of cervical region * * * * Physician Interpretation * * * * EXAMINATION: MRI CERVICAL SPINE WO IVCON CLINICAL HISTORY: Spinal stenosis of cervical region TECHNIQUE: Routine cervical spine MR protocol without gadolinium. MQ: [id number] COMPARISON: None. RESULT: Counting reference: Craniocervical junction. Anatomic Variants: None. Localizer images: No additional findings. Alignment: Minimal anterolisthesis of C4 on C5, likely degenerative. Craniocervical junction: Craniocervical junction is normal. Cord: The visualized cord is within normal limits of signal intensity and morphology. Bone marrow signal/fracture: No evidence of pathologic marrow infiltration. No evidence of prior fracture. Cervical soft tissues: The paraspinal soft tissues are within normal limits. C2-C3: Canal and foramina are patent. C3-C4: Shallow disc osteophyte complex with overall patent spinal canal and neural foramina. C4-C5: Minimal anterolisthesis, disc uncovering disc osteophyte complex with tiny superimposed central disc protrusion contributing to minimal ventral CSF effacement. Facet and uncinate hypertrophy contributes to mild/moderate left and no significant right neural foraminal stenosis. C5-C6: Disc osteophyte complex causing moderate ventral CSF effacement with facet and uncinate hypertrophy contributing to moderate to severe right and at least moderate left neural foraminal stenosis. C6-C7: Disc height loss, disc osteophyte complex eccentric to the left causing [id number] ventral CSF effacement. Facet and uncinate hypertrophy contributes to moderate left and minimal right neural foraminal stenosis C7-T1: Canal and foramina are patent. IMPRESSION: Multilevel cervical spondylosis with degenerative changes greatest at C4-C5 and C5-C6. Varying degrees of neural foraminal stenosis worst at C4-C6 to Anatomic Variant: None. Assume 7 cervical vertebrae with counting from the craniocervical junction. Agency Legal Counsel: PSCB Transcribe Date/Time: Feb 17 2025 3:03P Dictated by : IKE TAPIA MD This examination was interpreted and the report reviewed and electronically signed by: IKE TAPIA MD on Feb 17 2025 3:20PM EST [id number] Normal [facility] CNOVon 02-13-2025 CNOV Office Visit (PNMDNA ) CECELIA QUIROZ ([id number]) 1950 F Date Time Provider Department 02/13/25 1:00 PM DOROTHY PISANO PNVANA During your visit today, we recorded the following information about you: Pulse Weight 77/minute 63 kg Dorothy Pisano, ROLLER INSPECTOR AND MENDER.SHINGLE INSPECTOR 02/13/2025 1:10 PM Signed [facility] Date: February 13, 2025 - 12:37 PM Cecelia Quiroz is seen in consultation requested by Dr. Palma Lovett for an opinion regarding chronic neck pain. My final recommendations will be communicated back to the requesting physician by way of shared medical record or via US mail. Chief Complaint: neck Subjective Cecelia Quiroz, is a 74 year old female who presents with neck pain. The pain started several months ago The pain onset was gradual. The patient states that the current pain is continuous. Her pain is located in the bilateral posterior cervical region and right occipital region and does not radiate.. ////// The pain intensity is currently rated 5 on a scale of 10. The pain is exacerbated by no change in pain symptoms with position or activity. Currently, the symptoms do not interfere with activities of daily living (ADLs). PAIN EVALUATION 02/11/2025 8633 Pain Level: 7 Pain Location: Neck Description: Pressure;Spasm;Tightne ss Duration Amount of Time: 6 Duration Units: Months Frequency: Continuous Intervention/Comfort measure: Medication Prior pain treatment has included: Medication(s): She has tried the following for relief of her symptoms: Advil Physical Therapy: She has not had physical therapy for her current symptoms. Spinal Injections: She has gotten prior spinal injections. She does not remember having these and does not remember if they provided relief. 11/21/18 - C7-T1 interlaminar FELIPA by Dr. Taylor 03/17/19 - Intraarticular left C4, C5, C6 facet injection by Dr. Chand Other: None ALLERGIES Allergen Reactions Sulfasalazine Rash Current Medications: Pain medications reviewed and reconciled in the medication list: Yes. Current Outpatient Medications Medication Sig metoprolol succinate ER (TOPROL XL) 50 mg 24 hr tablet Take 1 tablet by mouth two times a day. predniSONE (DELTASONE) 10 mg tablet Take 1 tablet by mouth once daily. Take in the morning with food. primidone (MYSOLINE) 250 mg tablet Take 1 tablet by mouth daily at bedtime. travoprost (TRAVATAN Z) 0.004 % ophthalmic drops 1 Drop. loperamide (IMODIUM) 2 mg cap(s) Take 2 mg by mouth four times daily as needed. SARilumab (KEVZARA) 200 mg/1.14 mL injection Inject 200mg (1 syringe) subcutaneously every 2 weeks. (Patient not taking: Reported on 02/13/2025) predniSONE (DELTASONE) 1 mg tablet Take 7 mg once a day (using 1 mg and 5 mg tablets) (Patient not taking: Reported on 02/13/2025) predniSONE (DELTASONE) 5 mg tablet Using 1 mg and 5 mg tablets, please take 7mg once a day (Patient not taking: Reported on 02/13/2025) Blood Pressure Test Kit-Large (QUICK RESPONSE BP MONITOR) 1 Each once daily. Current Facility-Administered Medications Medication Dose Route Frequency denosumab 60 mg injection (PROLIA) 60 mg SUBCUTANEOUS ONCE (AMB - Up to 30 Days) denosumab 60 mg injection (PROLIA) 60 mg SUBCUTANEOUS ONCE (AMB - Up to 30 Days) PAST MEDICAL HISTORY Diagnosis Date Actinic keratosis Autoimmune disease (HCC) Cancer (HCC) 1982 Uterine Cephalalgia Cholelithiasis Depression Diarrhea Disorder of bone and cartilage, unspecified Diverticulitis of colon (without mention of hemorrhage)(562.11) 2003 Dysphagia Essential hypertension 12/28/2021 GCA (giant cell arteritis) (HCC) bx negative GERD (gastroesophageal reflux disease) Glaucoma Hematuria 1999 had workup including cystoscopy, etc. - entire workup negative. No longer happening. IBS (irritable bowel syndrome) Iron deficiency anemia, unspecified ? related to UGI source from NSAID's Mixed hyperlipidemia Palpitations PMR (polymyalgia rheumatica) ([facility]) Raynaud's disease /phenomenon Sciatica Steroid long-term use Thyroid nodule Tobacco use disorder PAST SURGICAL HISTORY Procedure Laterality Date ABDOMINAL SURGERY HX APPENDECTOMY 1982 incidental APPENDECTOMY HX BREAST SURGERY HX CATARACT EXTRACTION HX bilateral CHOLECYSTECTOMY Cholecystectomy COLONOSCOPY 2012 COLONOSCOPY FLX DX W/COLLJ SPEC WHEN PFRMD 05/09/2021 ESOPHAGOGASTRODUODENOS COPY TRANSORAL DIAGNOSTIC 07/05/2015 EGD ESOPHAGOGASTRODUODENOS COPY TRANSORAL DIAGNOSTIC 05/09/2021 EYE SURGERY HX FINE NEEDLE ASPIRATION 04/30/2023 Thyroid FNA FRACTURE SURGERY LEFT HEART CATH,PERCUTANEOUS 2011 Cardiac cath, L heart. Normal PAST SURGICAL HISTORY OF 1987 ulnar ner transferred PAST SURGICAL HISTORY OF 1990 bartholin cyst on vagina PAST SURGICAL HISTORY OF 2005 bone spur to left shoulder PAST SURGICAL HISTORY OF 2007 left k (more content not included)... Normal [facility] BLOOD TB SCREENon 02-06-2025 M. tuberculosis tuberculin stim IFN-g Ql (Bld) Negative Normal [facility] 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: Order Comment: Speci men Type: BLOOD SPECIMENOrdering Facility: [facility] Address: [address] [place] [address] Performed By: #### I NFTBP ####[facility] [id number] [place] [address] [place] MITOGEN MINUS NIL >10.00 Normal >=0.50 [facility] 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: Order Comment: Sheroni becca Type: BLOOD SPECIMENOrdering Facility: [facility] Address: [address] [place] [address] Performed By: #### I NFTBP ####[facility] [id number] [place] [address] [place] TB GAMMA INTERPRETATION Infection with M . tuberculosis complex is unlikely. If latent tuberculosis infection is highly suspected, a negative result does not rule out the infection. Specimens from immunocompromised patients and those <5 years of age may show false negative results. In case of a contact investigation, please repeat 8-12 weeks after a known exposure. Normal [facility] 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: Order Comment: Speci men Type: BLOOD SPECIMENOrdering Facility: [facility] Address: [address] [place] [address] Performed By: #### I NFTBP ####[facility] [id number] [place] [address] [place] TB NIL <0.00 Normal <=8.00 [facility] 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: Order Comment: Speci men Type: BLOOD SPECIMENOrdering Facility: [facility] Address: [address] [place] [address] Performed By: #### I NFTBP ####[facility] [id number] [address] [place] TB1 AG MINUS NIL 0.03 IU/mL Normal <0.[address] [facility] 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: Order Comment: Speci men Type: BLOOD SPECIMENOrdering Facility: [facility] Address: [address] [place] [address] Performed By: #### I NFTBP ####[facility] [id number] [address] [place] TB2 AG MINUS NIL 0.04 IU/mL Normal <0.[address] [facility] 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: Order Comment: Speci men Type: BLOOD SPECIMENOrdering Facility: [facility] Address: [address] [place] [address] Performed By: #### I NFTBP ####[facility]IA [id number] [address] OF [facility] CNOVon 02-06-2025 CNOV Office Visit (MIYA ) CECELIA QUIROZ ([id number]) 1950 F Date Time Provider Department 02/06/25 3:30 PM PALMA LOVETT During your visit today, we recorded the following information about you: Temperature Pulse Blood pressure Weight 97.4 degrees 59/minute 119/67 62.6 kg Height 1.664 m Palma Lovett APRN.CNP 02/06/2025 3:09 PM Addendum Please schedule follow up with Palma Lovett APRN.CNP for office visit and Prolia on or shortly after 02/23/2026 Please schedule with spine. 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 With negative TA biopsies x2 - From Jun-Sep, on MTX which was stopped due to inefficacy - In October, started on acemtra which was stopped after 3 infusions - In Apr, fell off a trailer and broke L humerus - In Jul, seen by Dr. Gonzalez. On baseline prednisone 10mg/day. Given medrol dose pack for flare with plans to return to prednisone 10mg/day thereafter. She was hesitant to reduce baseline pred 10mg/day further given previous attempts to taper led to flares of pain and headache - On 07/28/19, received prolia - In October, reported baseline pain in the R>L shoulders/arms. Not flaring. On pred 10mg/day - In January and Apr, reported stable PMR on pred 10mg/day - In Aug, reported taking pred 10mg/day. Taking forteo. No interim fracture. - In February, started on HCQ given active pain. pred 10mg/day continued - On 05/16/21, reported no improvement in L shoulder, neck and base of skull pain w/pred 20mg/day. Referred to spine and PT - In May reported taking pred 10mg/day. Continued to have significant pain awakening her at night, located in L side of the neck/base of skull. Prescribed a pred 40mg taper - In Aug, reported no change with increased pred dose. On pred 10mg/day at the time of the visit. Was off HCQ so advised to resume - In November, reported no change on HCQ. Remained on pred 10mg/day. Resumed forteo 3 months prior (was off x2 months prior to that as she had run out) - In February, reported feeling the same. On pred 10mg/day. Was to have stopped forteo in last January but was still taking it. Forteo stopped, last dose in February. Was advised to resume prolia but was waiting for surgery clearance given ankle surgery. Off HCQ. - In Mar s/p R ankle surgery (hardware removal) - In Apr, prednisone course helped a lot. Started MTX SC - In Jul, reported MTX didn't help. Hurt worse and felt nausea/fatigue with it. On pred 10mg/day - In Jan, reported flares on lower than pred 10mg/day so 10mg/day continued. Had to temporarily increase to 40mg for a flare which helped, then back to 10mg/day - In Jan, Jul and Jan, given prolia - In Jan, advised to start HCQ while on pred 10mg/day. Had taken one dose of 20mg a couple of days prior for increased upper back and R>L proximal arm pain, which helped. Back on 10mg/day. - at [facility], reports she had diarrhea and dizziness with the first week of HCQ. Tried 1/2 tablet every other day with the same issue. - Hx of PUD - Last plaquenil eye exam normal in Sep (had been off HCQ-resuming today) PAST MEDICAL HISTORY Diagnosis Date Actinic keratosis Autoimmune disease (HCC) Cancer (HCC) 1982 Uterine Cephalalgia Cholelithiasis Depression Diarrhea Disorder of bone and cartilage, unspecified Diverticulitis of colon (without mention of hemorrhage)(562.11) 2003 Dysphagia Essential hypertension 12/28/2021 GCA (giant cell arteritis) (HCC) bx negative GERD (gastroesophageal reflux disease) Glaucoma Hematuria 1999 had workup including cystoscopy, etc. - entire workup negative. No longer happening. IBS (irritable bowel syndrome) Iron deficiency anemia, unspecified ? related to UGI source from NSAID's Mixed hyperlipidemia Palpitations PMR (polymyalgia rheumatica) (HCC) Raynaud's disease /phenomenon Sciatica Steroid long-term use Thyroid nodule Tobacco use disorder PAST SURGICAL HISTORY Procedure Laterality Date ABDOMINAL SURGERY HX APPENDECTOMY 1983 incidental APPENDECTOMY HX BREAST SURGERY HX CATARACT EXTRACTION HX bilateral CHOLECYSTECTOMY Cholecystectomy COLONOSCOPY 2012 COLONOSCOPY FLX DX W/COLLJ SPEC WHEN PFRMD 05/09/2021 ESOPHAGOGASTRODUODENOS COPY TRANSORAL DIAGN (more content not included)... Normal [facility] CRP SerPl-mCncon 02-06-2025 CRP [Mass/Vol] 1.4 mg/dL High <0.9 [facility] 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: Order Comment: Speci becca Type: BLOOD SPECIMEN Ordering Facility: [facility] Address: [address] [place] [address] Performed By: #### 2 2322-2, 5195-3, 99634-6 #### [facility] CLIA [id number] [address] [place] [address] [place] ESR Westergren method (Bld) [Velocity]on 02-06-2025 ESR (Bld) [Velocity] 51 mm/h High 0-20 [facility] 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: Order Comment: Speci [facility] Type: BLOOD SPECIMENOrdering Facility: [facility] Address: [address] [place] [address] Performed By: #### 4 537-7 ####[facility] [id number] [place] [address] [place] HBV core Ab Ser Qlon 025 HBV core Ab Ql (S) Negative Normal Negative [facility] 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: Order Comment: Ang hudson Type: BLOOD SPECIMEN Ordering Facility: [facility] Address: [address] [place] [address] Result Comment: No e vidence of current or past infection with Hepatitis B virus. Should recent infection be suspected, repeat testing may be considered 3-4 weeks after this draw. Performed By: #### 2 2322-2, 5195-3, 68167-6 #### [facility] CLIA [id number] [address] [place] [address] [place] HBV surface Ab Ql (S)on 01-19 HBV surface Ab Qn (S) <8.00 Normal [facility] 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: Order Comment: Speci men Type: BLOOD SPECIMEN Ordering Facility: [facility] Address: [address] [place] [address] Result Comment: <8 m IU/mL: No serological evidence of immunity to Hepatitis B Virus. >/= 8 to <12 mIU/mL: No serological evidence of immunity to Hepatitis B Virus. >/= 12 mIU/mL: Consistent with serological evidence of immunity to Hepatitis B Virus. Performed By: #### 2 2322-2, 5195-3, 23984-0 #### [facility] CLIA [id number] [address] [place] [address] HBV surface Ab Ser Qlon 01-19 HBV surface Ab Ql (S) Negative Normal [facility] 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: Order Comment: Speci men Type: BLOOD SPECIMEN Ordering Facility: [facility] Address: [address] [place] [address] Result Comment: No s erological evidence of immunity to Hepatitis B Virus. Performed By: #### 2 2322-2, 5195-3, 52937-1 #### [facility] CLIA [id number] [address] [place] [address] [place] HBV surface Ag Ser Qlon 01-19 HBV surface Ag Ql (S) Negative Normal Negative [facility] 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: Order Comment: Speci men Type: BLOOD SPECIMEN Ordering Facility: [facility] Address: [address] [place] [address] Performed By: #### 2 2322-2, 5195-3, 08785-7 #### [facility] CLIA [id number] [place] HCV Ab Ser Qlon 02-06-2025 HCV Ab Ql (S) Negative Normal Negative [facility] 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: Order Comment: Speci men Type: BLOOD SPECIMENOrdering Facility: [facility] Address: [address] [place] [address] Result Comment: The result suggests no evidence of infection with Hepatitis C virus. Should recent infection be suspected, repeat testing may be considered 4-6 weeks after this draw. Performed By: #### 1 6128-1 ####[facility] [id number] [address] [place] XR CERVICAL 4V AP/LAT/OBLon 02-06-2025 XR CERVICAL 4V AP/LAT/OBL * * *Final Report* * * DATE OF EXAM: Feb 06 2025 3:58PM STX 5311 - XR CERVICAL 4V AP/LAT/OBL / PROCEDURE REASON: Neck pain * * * * Physician Interpretation * * * * Cervical spine x-rays: HISTORY: Neck pain. TECHNIQUE: AP, lateral and bilateral oblique views were performed. COMPARISON: 12/16/2021 RESULT: Counting reference: Craniocervical junction. Anatomic variants: None. There has been interval progression of cervical spondylosis. Again demonstrated is slight anterior listhesis of C5 upon C6. Mild disc space narrowing and moderate osteophyte formation are present at the C4-C5 and C5-C6 levels. Mild disc space narrowing and mild osteophytosis are present at C6-C7. Uncovertebral hypertrophic changes encroach upon the RIGHT C5-C6 neural foramen. IMPRESSION: 1. Multilevel cervical spondylosis. Agency Legal Counsel: PSCB Transcribe Date/Time: Feb 09 2025 12:37P Dictated by : LEWIS SHELL MD This examination was interpreted and the report reviewed and electronically signed by: LEWIS SHELL MD on Feb 09 2025 12:38PM EST [id number] Normal [facility] 25(OH)D3 SerPl-mCncon 2024 25-hydroxyvitamin D3 [Mass/Vol] 34.9 ng/mL Normal 31.0-80.0 [facility] 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: Order Comment: Speci men Type: BLOOD SPECIMENOrdering Facility: [facility] Address: [address] [place] [address] Result Comment: Clas sification of 25 [place] Vitamin D status: Deficiency/Insufficiency: < or = 30 ng/ml. Sufficiency/Optimal Levels: 31-80 ng/mL Toxicity: > 100 ng/mL. Test performed by chemiluminescent immunoassay. Performed By: #### 1 989-3 ####[facility] [id number] [place] [id number] [place] ALT SerPl-cCncon 01-20-2025 ALT [Catalytic activity/Vol] 11 U/L Normal 7-38 [facility] 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: Order Comment: Speci men Type: BLOOD SPECIMENOrdering Facility: [facility] Address: [address] [place] [address] Performed By: #### 1 920-8, 44206-3, 1742-6, 39769-9 ####[facility] [id number] [place] [id number] [place] AST SerPl-cCncon 01-20-2025 AST [Catalytic activity/Vol] 17 U/L Normal 13-35 [facility] 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: Order Comment: Speci men Type: BLOOD SPECIMENOrdering Facility: [facility] Address: [address] [place] [address] Performed By: #### 1 920-8, 96198-1, 1742-6, 43189-1 ####[facility] [id number] [place] [id number] [place] CBC panel Auto (Bld)on 01-20 Erythrocyte distribution width (RBC) [Ratio] 13.2 % Normal 11.5-15.0 [facility] 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: Order Comment: Speci men Type: BLOOD SPECIMENOrdering Facility: [facility] Address: [address] [place] [address] Performed By: #### 5 8410-2 ####[facility]IA [id number] [place] [address] [place] Hematocrit (Bld) [Volume fraction] 39.1 % Normal 36.0-46.0 [facility] 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: Order Comment: Speci men Type: BLOOD SPECIMENOrdering Facility: [facility] Address: [address] [place] [address] Performed By: #### 5 8410-2 ####[facility] LABIA [id number] [place] [address] [place] Hemoglobin (Bld) [Mass/Vol] 12.8 g/dL Normal 11.5-15.5 [facility] 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: Order Comment: Speci men Type: BLOOD SPECIMENOrdering Facility: [facility] Address: [address] [place] [address] Performed By: #### 5 8410-2 ####[facility] [id number] [place] [address] [place] MCH (RBC) [Entitic mass] 31.5 pg Normal 26.0-34.0 [facility] 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: Order Comment: Speci men Type: BLOOD SPECIMENOrdering Facility: [facility] Address: [address] [place] [address] Performed By: #### 5 8410-2 ####[facility] [id number] [place] [address] [place] MCHC (RBC) [Mass/Vol] 32.7 g/dL Normal 30.5-36.0 [facility] 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: Order Comment: Speci men Type: BLOOD SPECIMENOrdering Facility: [facility] Address: [address] [place] [address] Performed By: #### 5 8410-2 ####[facility] [id number] [place] [address] [place] MCV (RBC) [Entitic vol] 96.3 fL Normal 80.0-100.0 [facility] 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: Order Comment: Speci men Type: BLOOD SPECIMENOrdering Facility: [facility] Address: [address] [place] [address] Performed By: #### 5 8410-2 ####[facility] LABCL[facility] [id number] [place] [address] [place] Nucleated RBC (Bld) [#/Vol] 10*3/uL Normal <0.01 [facility] 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: Order Comment: Speci men Type: BLOOD SPECIMENOrdering Facility: [facility] Address: [address] [place] [address] Performed By: #### 5 8410-2 ####[facility] [id number] [place] [address] [place] Platelet mean volume (Bld) [Entitic vol] 11.0 fL Normal 9.0-12.7 [facility] 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: Order Comment: Speci men Type: BLOOD SPECIMENOrdering Facility: [facility] Address: [address] [place] [address] Performed By: #### 5 8410-2 ####[facility] [id number] [place] [address] [place] Platelets (Bld) [#/Vol] 266 10*3/uL Normal 150-400 [facility] 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: Order Comment: Speci men Type: BLOOD SPECIMENOrdering Facility: [facility] Address: [address] [place] [address] Performed By: #### 5 8410-2 ####[facility] [id number] [place] [address] [place] RBC (Bld) [#/Vol] 4.06 10*6/uL Normal 3.90-5.20 [facility] 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: Order Comment: Speci men Type: BLOOD SPECIMENOrdering Facility: [facility] Address: [address] [place] [address] Performed By: #### 5 8410-2 ####[facility] [id number] [place] [address] [place] WBC (Bld) [#/Vol] 10.19 10*3/uL Normal 3.70-11.00 [facility] 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: Order Comment: Speci men Type: BLOOD SPECIMENOrdering Facility: [facility] Address: [address] [place] [address] Performed By: #### 5 8410-2 ####[facility]IA [id number] [address] [place] CNPMaeve 01-20-2025 [facility] Telephone (RHEUST) CECELIA QUIROZ ([id number]) 1950 F Date Time Provider Department 01/20/25 MAGDALENE BRADFORD During your visit today, we recorded the following information about you: Keely Rousseau RN 01/20/2025 1:35 PM Signed Spoke with patient, advised of need for labs prior to Prolia appointment on , verbalizes understanding-will complete promptly. Keely Rousseau RN Allergies As of Date: 01/20/2025 Noted Allergy Reaction SULFASALAZINE 03/26/2024 2 - Rash Date Reviewed: 11/21/2024 Reviewed by: Sravanthi Carlisle LPN - Fully Assessed Prescriptions as of 01/20/2025 - metoprolol succinate ER (TOPROL XL) 50 mg 24 hr tablet Take 1 tablet by mouth two times a day. - predniSONE (DELTASONE) 1 mg tablet Take 7 mg once a day (using 1 mg and 5 mg tablets) - predniSONE (DELTASONE) 5 mg tablet Using 1 mg and 5 mg tablets, please take 7mg once a day - predniSONE (DELTASONE) 10 mg tablet Take 1 tablet by mouth once daily. Take in the morning with food. - primidone (MYSOLINE) 250 mg tablet Take 1 tablet by mouth daily at bedtime. - Blood Pressure Test Kit-Large (QUICK RESPONSE BP MONITOR) 1 Each once daily. - travoprost (TRAVATAN Z) 0.004 % ophthalmic drops 1 Drop. - loperamide (IMODIUM) 2 mg cap(s) Take 2 mg by mouth four times daily as needed. Facility-Administered Medications as of 01/20/2025 - denosumab 60 mg injection (PROLIA) Problem List As Of Date 01/20/2025 Noted Resolved Disorder of bone and cartilage [M89.9, M94.9] 03/05/2016 ALLERGIC RHINITIS NOS [J30.9] 10/29/2007 MVP (mitral valve prolapse) [I34.1] 01/19/2023 Tobacco use [Z72.0] Diverticulitis of large intestine without perfo*08/20/2002 CARPAL TUNNEL SYNDROME [G56.00] 10/29/2007 HEMATURIA [599.7] 10/29/2007 R[facility]INE [facility] - [facility] [Z01.419] 10/29/2007 10/19/2011 Class: Chronic TEAR MED MENISC KNEE-CURRENT [YEX1887] 12/10/2007 Cellulitis and Abscess of Face [L03.211, L02.01]10/03/2008 Adjustment Disorder with Anxiety [F43.22] 12/11/2008 Routine general medical examination at [facility]*02/12/2009 11/27/2011 Class: Chronic Giant cell arteritis (HCC) [M31.6] 01/10/2012 GCA (giant cell arteritis) (HCC) [M31.6] 01/18/2012 04/19/2017 Sciatica [M54.30] 04/30/2013 Raynaud's disease without gangrene [I73.00] 10/28/2015 Osteoporosis, 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] 03/05/2016 Infected sebaceous cyst [L72.3, L08.9] 03/31/2016 Cephalalgia [R51.9] 01/17/2017 Family history of brain aneurysm [Z82.49] 01/17/2017 Giant cell arteritis with polymyalgia rheumatic*01/17/2017 [facility] long term care systemic steroid user [Z79.52] 03/02/2017 Actinic keratosis [L57.0] 01/18/2018 Undiagnosed cardiac murmurs [R01.1] 01/18/2018 Cervical myofascial strain [S16.1XXA] 08/26/2018 Neck pain [M54.2] 08/26/2018 Tremor [R25.1] 10/08/2018 Arm paresthesia, left [R20.2] 10/08/2018 Weakness of left arm [R29.898] 10/08/2018 Osteoarthritis of spine with radiculopathy, cer*10/08/2018 DDD (degenerative disc disease), cervical [M50.*10/08/2018 Diarrhea due to malabsorption [K90.9, R19.7] 05/09/2021 Dysphagia [R13.10] 05/09/2021 Hyperlipidemia, mixed [E78.2] 12/28/2021 Essential hypertension [I10] 12/28/2021 Shortness of breath [R06.02] 12/28/2021 01/19/2023 Palpitations [R00.2] 12/28/2021 Abnormal mammogram [R92.8] 01/19/2023 Chest pain at rest [R07.9] 01/19/2023 Cholelithiasis [K80.20] 01/19/2023 Cyst of Bartholin's gland duct [N75.0] 01/19/2023 Fracture of humerus [S42.309A] 01/19/2023 Gastroesophageal reflux disease [K21.9] 01/19/2023 History of appendectomy [Z90.49] 01/19/2023 History of arthroplasty of left shoulder [Z96.6*01/19/2023 History of fracture [Z87.81] 01/19/2023 History of hysterectomy [Z90.710] 01/19/2023 History of malignant neoplasm of uterine body [*01/19/2023 History of visual disturbance [Z86.69] 01/19/2023 Osteoarthritis [M19.90] 01/19/2023 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] 06/16/2016 Headache [R51] 01/19/2023 Temporal arteritis (HCC) [M31.6] 01/19/2023 Fatigue [R53.83] 03/12/2023 Decreased libido [R68.82] 03/12/2023 Vitamin D deficiency [E55.9] 03/12/2023 Balance disorder [R26.89] 03/12/2023 Iron deficiency [E61.1] 03/12/2023 Thyroid nodule [E04.1] 03/12/2023 Carotid atherosclerosis, bilateral [I65.23] 03/12/2023 Vitamin B12 deficiency [E53.8] 06/19/2023 Multiple thyroid nodules [E04.2] 06/19/2023 Chronic neck pain [M54.2, G89.29] 06/19/2023 Dupuytren's contracture of right hand [M72.0] 12/17/2023 Nodule of lower lobe of left lung [R91.1] 12/17/2023 Hyperglycemia [R73.9] 12/20/2023 Encounter Status:Closed by KEELY ROUSSEAU on 01/20/25 [facility] Telephone (RHEUST) CECELIA QUIROZ ([id number]) 1950 F Date Time Provider Department 01/20/25 MAGDALENE BRADFORD During your visit today, we recorded the following information about you: Keely Rousseau RN 01/20/2025 10:28 AM Signed Last Prolia dose: 08/05/2024 Last DEXA: 03/02/2023 Last OV: 03/18/2024 (with Magdalene Bradford) Labs: Calcium (mg/dL) Date Value 2021 9.2 Calcium, Total (mg/dL) Date Value 06/23/2024 8.7 Vitamin D 25 Hydroxy (ng/mL) Date Value 06/23/2024 35.7 09/09/2021 44.3 Calcium Keely Rousseau RN Allergies As of Date: 01/20/2025 Noted Allergy Reaction SULFASALAZINE 03/26/2024 2 - Rash Date Reviewed: 11/21/2024 Reviewed by: Sravanthi Carlisle LPN - Fully Assessed Primary Visit Diagnosis:Encounter for long-term (current) use of medications [Z79.899] Other Visit Diagnosis:Postmenopaus al osteoporosis [M81.0] Order(s):CALCIUM, TOTAL [SQCA] Order #: [id number] FUTURE VITAMIN D 25 HYDROXY [SQVITD] Order #: [id number] FUTURE [START ON 02/06/2025] denosumab 60 mg injection (PROLIA)Disp: Rfl: Prescriptions as of 01/20/2025 - metoprolol succinate ER (TOPROL XL) 50 mg 24 hr tablet Take 1 tablet by mouth two times a day. - predniSONE (DELTASONE) 1 mg tablet Take 7 mg once a day (using 1 mg and 5 mg tablets) - predniSONE (DELTASONE) 5 mg tablet Using 1 mg and 5 mg tablets, please take 7mg once a day - predniSONE (DELTASONE) 10 mg tablet Take 1 tablet by mouth once daily. Take in the morning with food. - primidone (MYSOLINE) 250 mg tablet Take 1 tablet by mouth daily at bedtime. - Blood Pressure Test Kit-Large (QUICK RESPONSE BP MONITOR) 1 Each once daily. - travoprost (TRAVATAN Z) 0.004 % ophthalmic drops 1 Drop. - loperamide (IMODIUM) 2 mg cap(s) Take 2 mg by mouth four times daily as needed. Facility-Administered Medications as of 01/20/2025 - denosumab 60 mg injection (PROLIA) Problem List As Of Date 01/20/2025 Noted Resolved Disorder of bone and cartilage [M89.9, M94.9] 03/05/2016 ALLERGIC RHINITIS NOS [J30.9] 10/29/2007 MVP (mitral valve prolapse) [I34.1] 01/19/2023 Tobacco use [Z72.0] Diverticulitis of large intestine without perfo*08/20/2002 CARPAL TUNNEL SYNDROME [G56.00] 10/29/2007 HEMATURIA [599.7] 10/29/2007 [facility] - [facility] [Z01.419] 10/29/2007 10/19/2011 Class: Chronic TEAR MED MENISC KNEE-CURRENT [YHT5518] 12/10/2007 Cellulitis and Abscess of Face [L03.211, L02.01]10/03/2008 Adjustment Disorder with Anxiety [F43.22] 12/11/2008 Routine general medical examination at a [facility]*02/12/2009 11/27/2011 Class: Chronic Giant cell arteritis (HCC) [M31.6] 01/10/2012 GCA (giant cell arteritis) (HCC) [M31.6] 01/18/2012 04/19/2017 Sciatica [M54.30] 04/30/2013 Raynaud's disease without gangrene [I73.00] 10/28/2015 Osteoporosis, 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] 03/05/2016 Infected sebaceous cyst [L72.3, L08.9] 03/31/2016 Cephalalgia [R51.9] 01/17/2017 Family history of brain aneurysm [Z82.49] 01/17/2017 Giant cell arteritis with polymyalgia rheumatic*01/17/2017 manager long term care systemic steroid user [Z79.52] 03/02/2017 Actinic keratosis [L57.0] 01/18/2018 Undiagnosed cardiac murmurs [R01.1] 01/18/2018 Cervical myofascial strain [S16.1XXA] 08/26/2018 Neck pain [M54.2] 08/26/2018 Tremor [R25.1] 10/08/2018 Arm paresthesia, left [R20.2] 10/08/2018 Weakness of left arm [R29.898] 10/08/2018 Osteoarthritis of spine with radiculopathy, cer*10/08/2018 DDD (degenerative disc disease), cervical [M50.*10/08/2018 Diarrhea due to malabsorption [K90.9, R19.7] 05/09/2021 Dysphagia [R13.10] 05/09/2021 Hyperlipidemia, mixed [E78.2] 12/28/2021 Essential hypertension [I10] 12/28/2021 Shortness of breath [R06.02] 12/28/2021 01/19/2023 Palpitations [R00.2] 12/28/2021 Abnormal mammogram [R92.8] 01/19/2023 Chest pain at rest [R07.9] 01/19/2023 Cholelithiasis [K80.20] 01/19/2023 Cyst of Bartholin's gland duct [N75.0] 01/19/2023 Fracture of humerus [S42.309A] 01/19/2023 Gastroesophageal reflux disease [K21.9] 01/19/2023 History of appendectomy [Z90.49] 01/19/2023 History of arthroplasty of left shoulder [Z96.6*01/19/2023 History of fracture [Z87.81] 01/19/2023 History of hysterectomy [Z90.710] 01/19/2023 History of malignant neoplasm of uterine body [*01/19/2023 History of visual disturbance [Z86.69] 01/19/2023 Osteoarthritis [M19.90] 01/19/2023 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] 06/16/2016 Headache [R51] 01/19/2023 Temporal arteritis (HCC) [M31.6] 01/19/2023 Fatigue [R53.83] 03/12/2023 Decreased libido [R68.82] 03/12/2023 Vitamin D deficiency [E55.9] 03/12/2023 Balance disorder [R26.89] 03/12/2023 Iron deficiency [E61.1] 03/12/2023 Thyroid nodule [E04.1] 03/12/2023 Carotid atherosclerosis, bilateral [I65.23] 03/12/2023 Vitamin B12 deficiency [E53.8] 06/19/2023 Multiple thyroid nodules [E04.2] 06/19/2023 Chronic neck pain (more content not included)... Normal [facility] Calcium SerPl-mCdimaon 025 Calcium [Mass/Vol] 9.9 mg/dL Normal 8.5-10.2 [facility] 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: Order Comment: Speci men Type: BLOOD SPECIMENOrdering Facility: [facility] Address: [address] [place] [address] Performed By: #### 1 920-8, 38807-6, 1742-6, 37194-6 ####[facility] [id number] [place] [id number] [place] Creatinine + eGFR Pnl SerPlB ldon 01-20-2025 Creatinine and Glomerular filtration rate.predicted panel (S/P/Bld) 86 mL/min/1.73m??? Normal >=60 [facility] 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: Order Comment: Speci men Type: BLOOD SPECIMENOrdering Facility: [facility] Address: [address] [place] [address] Result Comment: Mary mated Glomerular Filtration Rate (eGFR) is calculated using the 2020 CKD-EPI creatinine equation. This equation utilizes serum creatinine, sex, and age as parameters. The creatinine assay has traceable calibration to isotope dilution-mass spectrometry. Refer to KDIGO guidelines for clinical interpretation. In patients with unstable renal function, e.g. those with acute kidney injury, the eGFR may not accurately reflect actual GFR. Performed By: #### 1 920-8, 23092-5, 1742-6, 14095-6 ####[facility] [id number] [place] [id number] [place] [facility] Creatinine and Glomerular fi ltration rate.predicted panel (S/P/Bld)on 01-20-2025 Creatinine [Mass/Vol] 0.73 mg/dL Normal 0.58-0.96 [facility] 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: Order Comment: Speci men Type: BLOOD SPECIMENOrdering Facility: [facility] Address: [address] [place] [address] Performed By: #### 1 920-8, 41513-8, 1742-6, 90307-7 ####[facility] [id number] [place] [id number] [place] ALT SerPl-cCncon 12-27-2024 ALT [Catalytic activity/Vol] 9 U/L Normal 7-38 [facility] 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: Order Comment: Speci men Type: BLOOD SPECIMEN Ordering Facility: [facility] Address: [address] [place] [address] Performed By: #### 2 2322-2, 5195-3, 60124-7 #### [facility] CLIA [id number] [address] [place] [address] [place] AST SerPl-cCncon 12-27-2024 AST [Catalytic activity/Vol] 23 U/L Normal 13-35 [facility] 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: Order Comment: Speci men Type: BLOOD SPECIMEN Ordering Facility: [facility] Address: [address] [place] [address] Performed By: #### 2 2322-2, 5195-3, 98399-7 #### [facility] CLIA [id number] [address] [place] [address] [place] CBC panel Auto (Bld)on 12-27 Erythrocyte distribution width (RBC) [Ratio] 12.9 % Normal 11.5-15.0 [facility] 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: Order Comment: Speci men Type: BLOOD SPECIMENOrdering Facility: [facility] Address: [address] [place] [address] Performed By: #### 5 8410-2 ####[facility] [id number] [place] [address] [place] Hematocrit (Bld) [Volume fraction] 39.9 % Normal 36.0-46.0 [facility] 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: Order Comment: Speci men Type: BLOOD SPECIMENOrdering Facility: [facility] Address: [address] [place] [address] Performed By: #### 5 8410-2 ####[facility] [id number] [place] [address] [place] Hemoglobin (Bld) [Mass/Vol] 12.7 g/dL Normal 11.5-15.5 [facility] 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: Order Comment: Speci men Type: BLOOD SPECIMENOrdering Facility: [facility] Address: [address] [place] [address] Performed By: #### 5 8410-2 ####[facility] [id number] [place] [address] [place] MCH (RBC) [Entitic mass] 30.6 pg Normal 26.0-34.0 [facility] 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: Order Comment: Speci men Type: BLOOD SPECIMENOrdering Facility: [facility] Address: [address] [place] [address] Performed By: #### 5 8410-2 ####[facility] [id number] [place] [address] [place] MCHC (RBC) [Mass/Vol] 31.8 g/dL Normal 30.5-36.0 [facility] 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: Order Comment: Speci men Type: BLOOD SPECIMENOrdering Facility: [facility] Address: [address] [place] [address] Performed By: #### 5 8410-2 ####[facility] [id number] [place] [address] [place] MCV (RBC) [Entitic vol] 96.1 fL Normal 80.0-100.0 [facility] 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: Order Comment: Speci men Type: BLOOD SPECIMENOrdering Facility: [facility] Address: [address] [place] [address] Performed By: #### 5 8410-2 ####[facility] [id number] [place] [address] [place] Nucleated RBC (Bld) [#/Vol] 10*3/uL Normal <0.01 [facility] 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: Order Comment: Speci men Type: BLOOD SPECIMENOrdering Facility: [facility] Address: [address] [place] [address] Performed By: #### 5 8410-2 ####[facility] [id number] [address] [address] [place] Platelet mean volume (Bld) [Entitic vol] 13.0 fL High 9.0-12.7 [facility] 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: Order Comment: Speci men Type: BLOOD SPECIMENOrdering Facility: [facility] Address: [address] [place] [address] Performed By: #### 5 8410-2 ####[facility] [id number] [place] [address] [place] Platelets (Bld) [#/Vol] 297 10*3/uL Normal 150-400 [facility] 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: Order Comment: Speci men Type: BLOOD SPECIMENOrdering Facility: [facility] Address: [address] [place] [address] Performed By: #### 5 8410-2 ####[facility] [id number] [place] [address] [place] RBC (Bld) [#/Vol] 4.15 10*6/uL Normal 3.90-5.20 [facility] 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: Order Comment: Speci men Type: BLOOD SPECIMENOrdering Facility: [facility] Address: [address] [place] [address] Performed By: #### 5 8410-2 ####[facility] [id number] [place] [address] [place] WBC (Bld) [#/Vol] 12.70 10*3/uL High 3.70-11.00 [facility] 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: Order Comment: Speci men Type: BLOOD SPECIMENOrdering Facility: [facility] Address: [address] [place] [address] Performed By: #### 5 8410-2 ####[facility] [id number] [place] [address] [place] Creatinine + eGFR Pnl SerPlB ldon 12-27-2024 Creatinine and Glomerular filtration rate.predicted panel (S/P/Bld) 86 mL/min/1.73m??? Normal >=60 [facility] 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: Order Comment: Ang hudson Type: BLOOD SPECIMEN Ordering Facility: [facility] Address: [address] [place] [address] Result Comment: Mary mated Glomerular Filtration Rate (eGFR) is calculated using the 2020 CKD-EPI creatinine equation. This equation utilizes serum creatinine, sex, and age as parameters. The creatinine assay has traceable calibration to isotope dilution-mass spectrometry. Refer to KDIGO guidelines for clinical interpretation. In patients with unstable renal function, e.g. those with acute kidney injury, the eGFR may not accurately reflect actual GFR. Performed By: #### 2 2322-2, 5195-3, 24467-2 #### [facility] CLIA [id number] [address] [place] [address] [place] Creatinine and Glomerular fi ltration rate.predicted panel (S/P/Bld)on 12-27-2024 Creatinine [Mass/Vol] 0.73 mg/dL Normal 0.58-0.96 [facility] 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: Order Comment: Ang hudson Type: BLOOD SPECIMEN Ordering Facility: [facility] Address: [address] [place] [address] Performed By: #### 2 2322-2, 5195-3, 38406-9 #### [facility] CLIA [id number] [address] [place] [address] [place] CNOVon 11-21-2024 CNOV Office Visit (FAMPWS ) CECELIA QUIROZ ([id number]) 1950 F Date Time Provider Department 11/21/24 12:40 PM WILY ABARCA During your visit today, we recorded the following information about you: Temperature Pulse Respiration Blood pressure 97 degrees 64/minute 20/minute 120/70 Weight 63 kg Wily Abarca APRN.CNP 11/21/2024 2:33 PM Signed Chief Complaint Patient presents with: 6 Month Exam HPI Cecelia Qiuroz is a 74 year old female who presents here today for Above Complaints.. Metoprolol 50 mg twice daily- Tolerating well. Has stopped taking amlodipine since May 2025. Has not been monitoring BP at home recently. Denies headaches, vision changes, swelling. Most Recent 11/23/21 - 11/21/24 02/07/24 13:07 02/18/24 10:26 03/26/24 13:08 03/31/24 12:05 04/14/24 15:47 05/23/24 13:20 11/21/24 12:19 BP 120/70 11/21/24 12:19 124/72 124/62 116/74 142/70 111/68 114/62 120/70 Right Wrist pain and lumbar spine back pain- Has had this pain for years, comes and goes, hurts to touch, right hand will feel numb occasionally. Tylenol does help some. Salonpas pads help. Started decreasing prednisone because she doesn't want to be taking this anymore. Is now taking 3mg prednisone daily. 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 Previous Medical History PAST MEDICAL HISTORY Diagnosis Date Actinic keratosis Autoimmune disease (HCC) Cancer (HCC) 1982 Uterine Cephalalgia Cholelithiasis Depression Diarrhea Disorder of bone and cartilage, unspecified Diverticulitis of colon (without mention of hemorrhage)(562.11) 2003 Dysphagia Essential hypertension 12/28/2021 GCA (giant cell arteritis) ([facility]) bx negative GERD (gastroesophageal reflux disease) Glaucoma Hematuria 1999 had workup including cystoscopy, etc. - entire workup negative. No longer happening. IBS (irritable bowel syndrome) Iron deficiency anemia, unspecified ? related to UGI source from NSAID's Mixed hyperlipidemia Palpitations PMR (polymyalgia rheumatica) ([facility]) Raynaud's disease /phenomenon Sciatica Steroid long-term use Thyroid nodule Tobacco use disorder Previous Surgical History PAST SURGICAL HISTORY Procedure Laterality Date ABDOMINAL SURGERY HX APPENDECTOMY 1982 incidental APPENDECTOMY HX BREAST SURGERY HX CATARACT EXTRACTION HX bilateral CHOLECYSTECTOMY Cholecystectomy COLONOSCOPY 2012 COLONOSCOPY FLX DX W/COLLJ SPEC WHEN PFRMD 05/09/2021 ESOPHAGOGASTRODUODENOS COPY TRANSORAL DIAGNOSTIC 07/05/2015 EGD ESOPHAGOGASTRODUODENOS COPY TRANSORAL DIAGNOSTIC 05/09/2021 EYE SURGERY HX FINE NEEDLE ASPIRATION 04/30/2023 Thyroid FNA FRACTURE SURGERY LEFT HEART CATH,PERCUTANEOUS 2011 Cardiac cath, L heart. Normal PAST SURGICAL HISTORY OF 1987 ulnar ner transferred PAST SURGICAL HISTORY OF 1990 bartholin cyst on vagina PAST SURGICAL HISTORY OF 2005 bone spur to left shoulder PAST SURGICAL HISTORY OF 2007 left knee -- torn meniscus ([place]) PAST SURGICAL HISTORY OF 2011 ORIF R ankle PAST SURGICAL HISTORY OF 2000 Bartholin cyst excised TOTAL ABDOMINAL HYSTERECT W/WO RMVL TUBE OVARY 1982 cervical cancer, still has ovaries VAGINAL HYSTERECTOMY Family History FAMILY HISTORY Problem Relation Age of Onset Diabetes Father late in life Coronary Artery Disease Father Hx of [place], age 71 Tremor Mother Hypertension Mother Cancer Brother Cancer Brother lymphoma - 55; h/o kidney transplant Cancer Brother Mestatic Aneurysm Sister brain Lung Cancer Sister dies at 52 Bipolar disorder Son Tremor Son Colon Cancer Niece Tremor Niece Hyperlipidemia No Family History Blood Clots No Family History Blood Disease No Family History Factor 5 Leiden No Family History DVT No Family History Stroke No Family History Schizophrenia No Family History Systemic Lupus Erythematosus No Family History Multiple Sclerosis No Family History Alzheimer's Disease No Family History Parkinson?s Disease No Family History Patient Allergies ALLERGIES Allergen Reactions Sulfasalazine Rash Current Medications Current Outpatient Medications on File Prior to Visit Medication Sig metoprolol succinate ER (TOPROL XL) 50 mg 24 hr tablet Take 1 tablet by mouth two times a day. predniSONE (DELTASONE) 1 mg tablet Take 7 mg once a day (using 1 mg and 5 mg tablets) predniSONE (DELTASONE) 5 mg tablet Using 1 mg and 5 mg tablets, please take 7mg once a day predniSONE (DELTASONE) 10 mg tablet Take 1 tablet by mouth once daily. Take in the morning with food. primidone (MYSOLINE) 250 mg tablet Take 1 tablet by mouth daily at bedtime. Blood Pressure Test Kit-Large (QUICK RESPONSE BP MONITOR) (more content not included)... Normal [facility] PARRIS SCREENING W TOMOon 11-19 PARRIS SCREENING W DOMENIC * * *Final Report* * * DATE OF EXAM: Nov 19 2024 2:03PM [id number] - PARRIS SCREENING W DOMENIC / PROCEDURE REASON: Encounter for screening mammogram for breast cancer * * * * Physician Interpretation * * * * RESULT: [facility] [address] [place] [address] #[id number] - PARRIS SCREENING W DOMENIC HISTORY: 74 year-old patient seen for screening. Patient is asymptomatic in both breasts. Patient states no personal history of breast cancer. COMPARISON STUDIES: The present examination has been compared to prior imaging studies dated 09/26/2021 (mammogram), 10/02/2022 (mammogram), 11/01/2022 (ultrasound), 11/01/2022 (mammogram) and 10/08/2023 (mammogram). MAMMOGRAM TECHNIQUE: The study was acquired using full field digital technology and interpreted from soft copy. Digital Breast Tomosynthesis (DBT) images were obtained and used to assist in the interpretation of this examination. MAMMOGRAM FINDINGS: The breasts are heterogeneously dense, which may obscure small masses. No suspicious masses, calcifications or other abnormalities are seen in either breast. There are no significant interval changes. IMPRESSION: There is no mammographic evidence of malignancy in either breast. Routine screening mammogram is recommended. Annual mammogram will be due in 1 year. BI-RADS Category 1: Negative RISK: Based on the Tyrer-Cuzick (TC) risk assessment model, this patient has a 2.3% lifetime risk of developing breast cancer, meaning they are at average risk for developing breast cancer. However, this is only an estimate based on available history provided on the patient's questionnaire. We encourage all patients to talk with their providers about these results, further recommendations for managing breast health, and appropriate supplemental screening options if the patient has dense breast tissue. Interpreting Radiologist: Lurdes Agosto M.D. Electronically signed on: 11/20/2024 Agency Legal Counsel: KAIDEN Transcribe Date/Time: Nov 19 2024 1:49P Dictated by: LURDES AGOSTO MD This examination was interpreted and the report reviewed and electronically signed by: LURDES AGOSTO MD on Nov 20 2024 8:45AM EST [id number] Normal [facility] CNNURSEon 08-05-2024 [facility] (RHEUST[facility] RICHIECECELIA Ibis ([id number]) 1950 F Date Time Provider Department 08/05/24 2:00 PM NURSE LAUREN [facility] DARIEN HOLLIDAY During your visit today, we recorded the following information about you: Keely Rousseau RN 08/05/2024 2:12 PM Signed Patient denies fractures or falls since last visit. Patient denies any dental work in last 2 months or upcoming 2 months. Patient given Prolia 60 mg SQ in the left arm Patient tolerated injection well. Lot #: [id number] Exp. Date: 12/17/2026 Last Vitamin D AND Serum Calcium: Calcium (mg/dL) Date Value 2021 9.2 Calcium, Total (mg/dL) Date Value 06/23/2024 8.7 Vitamin D 25 Hydroxy (ng/mL) Date Value 06/23/2024 35.7 09/09/2021 44.3 Last DXA: 03/02/2023 Next Prolia 02/06/2025 - Reviewed lab schedule. Keely Rousseau RN Referring Provider: MAGDALENE BRADFORD [[id number]] Allergies As of Date: 08/05/2024 Noted Allergy Reaction SULFASALAZINE 03/26/2024 2 - Rash Date Reviewed: 06/03/2024 Reviewed by: Wily Abarca APRN.SHINGLE INSPECTOR - Fully Assessed Primary Visit Diagnosis:Postmenopaus al osteoporosis [M81.0] Prescriptions as of 09/17/2024 - metoprolol succinate ER (TOPROL XL) 50 mg 24 hr tablet Take 1 tablet by mouth two times a day. - predniSONE (DELTASONE) 10 mg tablet Take 1 tablet by mouth once daily. Take in the morning with food. - primidone (MYSOLINE) 250 mg tablet Take 1 tablet by mouth daily at bedtime. - Blood Pressure Test Kit-Large (QUICK RESPONSE BP MONITOR) 1 Each once daily. - amLODIPine (NORVASC) 2.5 mg tablet Take 1 tablet by mouth once daily. - travoprost (TRAVATAN Z) 0.004 % ophthalmic drops 1 Drop. - loperamide (IMODIUM) 2 mg cap(s) Take 2 mg by mouth four times daily as needed. Problem List As Of Date 08/05/2024 Noted Resolved Disorder of bone and cartilage [M89.9, M94.9] 03/05/2016 ALLERGIC RHINITIS NOS [J30.9] 10/29/2007 MVP (mitral valve prolapse) [I34.1] 01/19/2023 Tobacco use [Z72.0] Diverticulitis of large intestine without perfo*08/20/2002 CARPAL TUNNEL SYNDROME [G56.00] 10/29/2007 HEMATURIA [599.7] 10/29/2007 ROUTINE [facility] - [facility] [Z01.419] 10/29/2007 10/19/2011 Class: Chronic TEAR MED MENISC KNEE-CURRENT [PTL1290] 12/10/2007 Cellulitis and Abscess of Face [L03.211, L02.01]10/03/2008 Adjustment Disorder with Anxiety [F43.22] 12/11/2008 Routine general medical examination at [facility]*02/12/2009 11/27/2011 Class: Chronic Giant cell arteritis (HCC) [M31.6] 01/10/2012 GCA (giant cell arteritis) (HCC) [M31.6] 01/18/2012 04/19/2017 Sciatica [M54.30] 04/30/2013 Raynaud's disease without gangrene [I73.00] 10/28/2015 Osteoporosis, 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] 03/05/2016 Infected sebaceous cyst [L72.3, L08.9] 03/31/2016 Cephalalgia [R51.9] 01/17/2017 Family history of brain aneurysm [Z82.49] 01/17/2017 Giant cell arteritis with polymyalgia rheumatic*01/17/2017 manager long term care systemic steroid user [Z79.52] 03/02/2017 Actinic keratosis [L57.0] 01/18/2018 Undiagnosed cardiac murmurs [R01.1] 01/18/2018 Cervical myofascial strain [S16.1XXA] 08/26/2018 Neck pain [M54.2] 08/26/2018 Tremor [R25.1] 10/08/2018 Arm paresthesia, left [R20.2] 10/08/2018 Weakness of left arm [R29.898] 10/08/2018 Osteoarthritis of spine with radiculopathy, cer*10/08/2018 DDD (degenerative disc disease), cervical [M50.*10/08/2018 Diarrhea due to malabsorption [K90.9, R19.7] 05/09/2021 Dysphagia [R13.10] 05/09/2021 Hyperlipidemia, mixed [E78.2] 12/28/2021 Essential hypertension [I10] 12/28/2021 Shortness of breath [R06.02] 12/28/2021 01/19/2023 Palpitations [R00.2] 12/28/2021 Abnormal mammogram [R92.8] 01/19/2023 Chest pain at rest [R07.9] 01/19/2023 Cholelithiasis [K80.20] 01/19/2023 Cyst of Bartholin's gland duct [N75.0] 01/19/2023 Fracture of humerus [S42.309A] 01/19/2023 Gastroesophageal reflux disease [K21.9] 01/19/2023 History of appendectomy [Z90.49] 01/19/2023 History of arthroplasty of left shoulder [Z96.6*01/19/2023 History of fracture [Z87.81] 01/19/2023 History of hysterectomy [Z90.710] 01/19/2023 History of malignant neoplasm of uterine body [*01/19/2023 History of visual disturbance [Z86.69] 01/19/2023 Osteoarthritis [M19.90] 01/19/2023 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] 06/16/2016 Headache [R51] 01/19/2023 Temporal arteritis (HCC) [M31.6] 01/19/2023 Fatigue [R53.83] 03/12/2023 Decreased libido [R68.82] 03/12/2023 Vitamin D deficiency [E55.9] 03/12/2023 Balance disorder [R26.89] 03/12/2023 Iron deficiency [E61.1] 03/12/2023 Thyroid nodule [E04.1] 03/12/2023 Carotid atherosclerosis, bilateral [I65.23] 03/12/2023 Vitamin B12 deficiency [E53.8] 06/19/2023 Multiple thyroid nodules [E04.2] 06/19/2023 Chronic neck pain [M54.2, G89.29] 06/19/2023 Dupuytren's contracture of right hand [M72.0] 12/17/2023 Nodule of lower lobe of left lung [R91.1] 12/17/2023 Hyperglycemia [R73.9] 12/19 (more content not included)... Normal [facility] CNPNon 08-04-2024 IRINEON Telephone (MIYA) CECELIA QUIROZ ([id number]) 1950 F Date Time Provider Department 08/04/24 MAGDALENE BRADFORD During your visit today, we recorded the following information about you: Keely Rousseau RN 08/04/2024 4:06 PM Signed Last Prolia dose: 01/28/2024 Last DEXA: 03/02/2023 Last OV: 03/18/2024 (with Magdalene Bradford) Labs: Calcium (mg/dL) Date Value 2021 9.2 Calcium, Total (mg/dL) Date Value 06/23/2024 8.7 Vitamin D 25 Hydroxy (ng/mL) Date Value 06/23/2024 35.7 09/09/2021 44.3 Keely Rousseau RN Allergies As of Date: 08/04/2024 Noted Allergy Reaction SULFASALAZINE 03/26/2024 2 - Rash Date Reviewed: 06/03/2024 Reviewed by: Wily Abarca APRN.SHINGLE INSPECTOR - Fully Assessed Order(s):[START ON 08/05/2024] denosumab 60 mg injection (PROLIA)Disp: Rfl: Prescriptions as of 08/04/2024 - predniSONE (DELTASONE) 10 mg tablet Take 1 tablet by mouth once daily. Take in the morning with food. - metoprolol succinate ER (TOPROL XL) 50 mg 24 hr tablet Take 1 tablet by mouth two times a day. - primidone (MYSOLINE) 250 mg tablet Take 1 tablet by mouth daily at bedtime. - Blood Pressure Test Kit-Large (QUICK RESPONSE BP MONITOR) 1 Each once daily. - amLODIPine (NORVASC) 2.5 mg tablet Take 1 tablet by mouth once daily. - travoprost (TRAVATAN Z) 0.004 % ophthalmic drops 1 Drop. - loperamide (IMODIUM) 2 mg cap(s) Take 2 mg by mouth four times daily as needed. Facility-Administered Medications as of 08/04/2024 - denosumab 60 mg injection (PROLIA) Problem List As Of Date 08/04/2024 Noted Resolved Disorder of bone and cartilage [M89.9, M94.9] 03/05/2016 ALLERGIC RHINITIS NOS [J30.9] 10/29/2007 MVP (mitral valve prolapse) [I34.1] 01/19/2023 Tobacco use [Z72.0] Diverticulitis of large intestine without perfo*08/20/2002 CARPAL TUNNEL SYNDROME [G56.00] 10/29/2007 HEMATURIA [599.7] 10/29/2007 ROUTINE [facility] - [place] [Z01.419] 10/29/2007 10/19/2011 Class: Chronic TEAR MED MENISC KNEE-CURRENT [[id number]] 12/10/2007 Cellulitis and Abscess of Face [L03.211, L02.01]10/03/2008 Adjustment Disorder with Anxiety [F43.22] 12/11/2008 Routine general medical examination at [facility]*02/12/2009 11/27/2011 Class: Chronic Giant cell arteritis (HCC) [M31.6] 01/10/2012 GCA (giant cell arteritis) (HCC) [M31.6] 01/18/2012 04/19/2017 Sciatica [M54.30] 04/30/2013 Raynaud's disease without gangrene [I73.00] 10/28/2015 Osteoporosis, 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] 03/05/2016 Infected sebaceous cyst [L72.3, L08.9] 03/31/2016 Cephalalgia [R51.9] 01/17/2017 Family history of brain aneurysm [Z82.49] 01/17/2017 Giant cell arteritis with polymyalgia rheumatic*01/17/2017 manager long term care systemic steroid user [Z79.52] 03/02/2017 Actinic keratosis [L57.0] 01/18/2018 Undiagnosed cardiac murmurs [R01.1] 01/18/2018 Cervical myofascial strain [S16.1XXA] 08/26/2018 Neck pain [M54.2] 08/26/2018 Tremor [R25.1] 10/08/2018 Arm paresthesia, left [R20.2] 10/08/2018 Weakness of left arm [R29.898] 10/08/2018 Osteoarthritis of spine with radiculopathy, cer*10/08/2018 DDD (degenerative disc disease), cervical [M50.*10/08/2018 Diarrhea due to malabsorption [K90.9, R19.7] 05/09/2021 Dysphagia [R13.10] 05/09/2021 Hyperlipidemia, mixed [E78.2] 12/28/2021 Essential hypertension [I10] 12/28/2021 Shortness of breath [R06.02] 12/28/2021 01/19/2023 Palpitations [R00.2] 12/28/2021 Abnormal mammogram [R92.8] 01/19/2023 Chest pain at rest [R07.9] 01/19/2023 Cholelithiasis [K80.20] 01/19/2023 Cyst of Bartholin's gland duct [N75.0] 01/19/2023 Fracture of humerus [S42.309A] 01/19/2023 Gastroesophageal reflux disease [K21.9] 01/19/2023 History of appendectomy [Z90.49] 01/19/2023 History of arthroplasty of left shoulder [Z96.6*01/19/2023 History of fracture [Z87.81] 01/19/2023 History of hysterectomy [Z90.710] 01/19/2023 History of malignant neoplasm of uterine body [*01/19/2023 History of visual disturbance [Z86.69] 01/19/2023 Osteoarthritis [M19.90] 01/19/2023 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] 06/16/2016 Headache [R51] 01/19/2023 Temporal arteritis (HCC) [M31.6] 01/19/2023 Fatigue [R53.83] 03/12/2023 Decreased libido [R68.82] 03/12/2023 Vitamin D deficiency [E55.9] 03/12/2023 Balance disorder [R26.89] 03/12/2023 Iron deficiency [E61.1] 03/12/2023 Thyroid nodule [E04.1] 03/12/2023 Carotid atherosclerosis, bilateral [I65.23] 03/12/2023 Vitamin B12 deficiency [E53.8] 06/19/2023 Multiple thyroid nodules [E04.2] 06/19/2023 Chronic neck pain [M54.2, G89.29] 06/19/2023 Dupuytren's contracture of right hand [M72.0] 12/17/2023 Nodule of lower lobe of left lung [R91.1] 12/17/2023 Hyperglycemia [R73.9] 12/20/2023 Prescriptions ordered this encounter Disp Refills Start End DENOSUMAB 60 MG/ML SUBCUTANEOUS SYRI* 08/05/2024 09/04/2024 Route: SUBCUTANEOUS Encounter Status:Closed b (more content not included)... Normal [facility] 25(OH)D3 [facility] 2023 25-hydroxyvitamin D3 [Mass/Vol] 35.7 ng/mL Normal 31.0-80.0 [facility] 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: Order Comment: Speci men Type: BLOOD SPECIMENOrdering Facility: [facility] Address: [address] [place] [address] Performed By: #### 1 989-3 ####[facility] LAB[facility] [id number] JOCELINNidia URBINADESK [id number] VIL[place] [id number] [place] CREATININE BLDon 06-23-2024 Creatinine [Mass/Vol] 0.64 mg/dL Normal 0.58-0.96 [facility] 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: Order Comment: Speci men Type: BLOOD SPECIMENOrdering Facility: [facility] Address: [address] [place] [address] Performed By: #### Juno MORRELL1, [id number] ####[facility] [id number] [place] [address] [place] Creatinine and Glomerular filtration rate.predicted panel (S/P/Bld) 93 mL/min/1.73m??? Normal >=60 [facility] 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: Order Comment: Ang hudson Type: BLOOD SPECIMENOrdering Facility: [facility] Address: [address] [place] [address] Result Comment: Mary mated Glomerular Filtration Rate (eGFR) is calculated using the 2020 CKD-EPI creatinine equation. This equation utilizes serum creatinine, sex, and age as parameters. The creatinine assay has traceable calibration to isotope dilution-mass spectrometry. Refer to KDIGO guidelines for clinical interpretation. In patients with unstable renal function, e.g. those with acute kidney injury, the eGFR may not accurately reflect actual GFR. Performed By: #### Juno MORRELL1, [id number] ####[facility] [id number] [place] [address] [place] Calcium SerPl-mCncon 024 Calcium [Mass/Vol] 8.7 mg/dL Normal 8.5-10.2 [facility] 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: Order Comment: Speci men Type: BLOOD SPECIMENOrdering Facility: [facility] Address: [address] [place] [address] Performed By: #### C PORSCHE1, [id number] ####[facility] [id number] [place] [address] [place] H. pylori IgG IA Qlon 2023 H. pylori IgG, Qualitative Negative Negative [facility] 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: Cannot exclude H. py adri infection if the specimen collected 3-4 weeks after onset of symptoms. Interpretation and review of laboratory results Normal [facility] CNOVon 05-23-2024 CNOV Office Visit (FAMPWS ) CECELIA QUIROZ ([id number]) 1950 F Date Time Provider Department 05/23/24 1:00 PM [facility] During your visit today, we recorded the following information about you: Pulse Respiration Blood pressure Weight 61/minute 16/minute 114/62 66.2 kg Wily Abarca APRN.SHINGLE INSPECTOR 06/03/2024 6:02 PM Signed Chief Complaint Patient presents with: F/U 6 months: BP HPI Cecelia Baumann Richie is a 74 year old female who presents here today for Above Complaints. BP-can be having pain and not realize it because she has a high pain tolerance-so thinks this may increase her BP when there doesn't actually seem to be a reason. Has a hornet sting on the back of her neck. [place] and saw it [place]. Has been going to a wellness center and they have recommended she have H. Pylori check. Past medical history, appointments, medications, allergies reviewed. Previous Medical History PAST MEDICAL HISTORY Diagnosis Date Actinic keratosis Autoimmune disease (HCC) Cancer (HCC) 1982 Uterine Cephalalgia Cholelithiasis Depression Diarrhea Disorder of bone and cartilage, unspecified Diverticulitis of colon (without mention of hemorrhage)(562.11) 2003 Dysphagia Essential hypertension 12/28/2021 GCA (giant cell arteritis) (HCC) bx negative GERD (gastroesophageal reflux disease) Glaucoma Hematuria 1999 had workup including cystoscopy, etc. - entire workup negative. No longer happening. IBS (irritable bowel syndrome) Iron deficiency anemia, unspecified ? related to UGI source from NSAID's Mixed hyperlipidemia Palpitations PMR (polymyalgia rheumatica) (HCC) Raynaud's disease /phenomenon Sciatica Steroid long-term use Thyroid nodule Tobacco use disorder Previous Surgical History PAST SURGICAL HISTORY Procedure Laterality Date ABDOMINAL SURGERY HX APPENDECTOMY 1982 incidental APPENDECTOMY HX BREAST SURGERY HX CATARACT EXTRACTION HX bilateral CHOLECYSTECTOMY Cholecystectomy COLONOSCOPY 2012 COLONOSCOPY FLX DX W/COLLJ SPEC WHEN PFRMD 05/09/2021 ESOPHAGOGASTRODUODENOS COPY TRANSORAL DIAGNOSTIC 07/05/2015 EGD ESOPHAGOGASTRODUODENOS COPY TRANSORAL DIAGNOSTIC 05/09/2021 EYE SURGERY HX FINE NEEDLE ASPIRATION 04/30/2023 Thyroid FNA FRACTURE SURGERY LEFT HEART CATH,PERCUTANEOUS 2011 Cardiac cath, L heart. Normal PAST SURGICAL HISTORY OF 1987 ulnar ner transferred PAST SURGICAL HISTORY OF 1990 bartholin cyst on vagina PAST SURGICAL HISTORY OF 2005 bone spur to left shoulder PAST SURGICAL HISTORY OF 2007 left knee -- torn meniscus ([place]) PAST SURGICAL HISTORY OF 2011 ORIF R ankle PAST SURGICAL HISTORY OF 2000 Bartholin cyst excised TOTAL ABDOMINAL HYSTERECT W/WO RMVL TUBE OVARY 1982 cervical cancer, still has ovaries VAGINAL HYSTERECTOMY Family History FAMILY HISTORY Problem Relation Age of Onset Diabetes Father late in life Coronary Artery Disease Father Hx of [place], age 71 Tremor Mother Hypertension Mother Cancer Brother Cancer Brother lymphoma - 55; h/o kidney transplant Cancer Brother Mestatic Aneurysm Sister brain Lung Cancer Sister dies at 52 Bipolar disorder Son Tremor Son Colon Cancer Niece Tremor Niece Hyperlipidemia No Family History Blood Clots No Family History Blood Disease No Family History Factor 5 Leiden No Family History DVT No Family History Stroke No Family History Schizophrenia No Family History Systemic Lupus Erythematosus No Family History Multiple Sclerosis No Family History Alzheimer's Disease No Family History Parkinson?s Disease No Family History Patient Allergies ALLERGIES Allergen Reactions Sulfasalazine Rash Current Medications Current Outpatient Medications on File Prior to Visit Medication Sig metoprolol succinate ER (TOPROL XL) 50 mg 24 hr tablet Take 1 tablet by mouth two times a day. primidone (MYSOLINE) 250 mg tablet Take 1 tablet by mouth daily at bedtime. Blood Pressure Test Kit-Large (QUICK RESPONSE BP MONITOR) 1 Each once daily. amLODIPine (NORVASC) 2.5 mg tablet Take 1 tablet by mouth once daily. predniSONE (DELTASONE) 10 mg tablet Take 1 tablet by mouth once daily. Take in the morning with food. travoprost (TRAVATAN Z) 0.004 % ophthalmic drops 1 Drop. loperamide (IMODIUM) 2 mg cap(s) Take 2 mg by mouth four times daily as needed. No current facility-administered medications on file prior to visit. Social History Social History Tobacco Use Smoking status: Every Day Current packs/day: 1.00 Average packs/day: 1 pack/day for 35.0 years (35.0 ttl pk-yrs) Types: Cigarettes Smokeless tobacco: Never Vaping Use Vaping status: Never Used Substance Use Topics Alcohol use: No Drug use: No Review of Symptoms REVIEW OF SYSTEMS See HPI, otherwise negative EXAM: BP 114/62 ( (more content not included)... Normal [facility] H. pylori IgG IA Qlon 2023 H. PYLORI IGG, QUAL Negative Normal Negative [facility] 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: Order Comment: Speci men Type: BLOOD SPECIMEN Ordering Facility: [facility] Address: [address] [place] [address] Result Comment: Jovana ot exclude H. pylori infection if the specimen collected 3-4 weeks after onset of symptoms. Performed By: #### 1 [id number] #### [facility] CLIA [id number] [address] [place] [address] [place] Comprehensive metabolic 2000 panelon 12-18-2023 Albumin [Mass/Vol] 4.0 g/dL 3.9 - 4.9 g/dL [facility] ALP [Catalytic activity/Vol] 89 U/L 34 - 123 U/L [facility] ALT [Catalytic activity/Vol] 8 U/L 7 - 38 U/L [facility] Anion gap [Moles/Vol] 11 mmol/L 9 - 18 mmol/L [facility] AST [Catalytic activity/Vol] 18 U/L 13 - 35 U/L [facility] Bilirubin [Mass/Vol] 0.2 mg/dL 0.2 - 1 .3 mg/dL [facility] Calcium [Mass/Vol] 9.2 mg/dL 8.5 - 10. 2 mg/dL [facility] Chloride [Moles/Vol] 100 mmol/L 97 - 10 5 mmol/L [facility] CO2 [Moles/Vol] 25 mmol/L 22 - 30 mmol/L [facility] Creatinine [Mass/Vol] 0.72 mg/dL 0.58 - 0.96 mg/dL [facility] GFR/1.73 sq M.predicted among non-blacks MDRD (S/P/Bld) [Vol rate/Area] 88 mL/min/{1.73_m2} - PINF [facility] 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: Estimated Glomerular Filtration Rate (eGFR) is calculated using the 2020 CKD-EPI creatinine equation. This equation utilizes serum creatinine, sex, and age as parameters. The creatinine assay has traceable calibration to isotope dilution-mass spectrometry. Refer to KDIGO guidelines for clinical interpretation. In patients with unstable renal function, e.g. those with acute kidney injury, the eGFR may not accurately reflect actual GFR. Glucose [Mass/Vol] 87 mg/dL 74 - 99 mg/dL [facility] 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: The [place] Diabete s Association (ADA) provides guidance for cutoff values for fasting glucose and random glucose. The ADA defines fasting as no caloric intake for at least 8 hours. Fasting plasma glucose results between 100 to 125 mg/dL indicate increased risk for diabetes (prediabetes). Fasting plasma glucose results greater than or equal to 126 mg/dL meet the criteria for diagnosis of diabetes. In the absence of unequivocal hyperglycemia, results should be confirmed by repeat testing. In a patient with classic symptoms of hyperglycemia or hyperglycemic crisis, random plasma glucose results greater than or equal to 200 mg/dL meet the criteria for diagnosis of diabetes. Reference: Standards of Medical Care in Diabetes 2016, [place] Diabetes Association. Diabetes Care. 2016.39(Suppl 1). Potassium [Moles/Vol] 4.2 mmol/L 3.7 - 5.1 mmol/L [facility] Protein [Mass/Vol] 7.4 g/dL 6.3 - 8.0 g/dL [facility] Sodium [Moles/Vol] 136 mmol/L 136 - 144 mmol/L [facility] Urea nitrogen [Mass/Vol] 12 mg/dL 7 - 21 mg/d L [facility] HbA1c (Bld)on 12-18-2023 Average glucose Estimated from glycated hemoglobin (Bld) [Mass/Vol] 103 mg/dL [facility] 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: eAG: (Estimated aver age glucose) is a calculated value from HgbA1c and is junior sales representative of the average blood glucose level in the last 2-3 month period. HbA1c (Bld) [Mass fraction] 5.2 % 4.3 - 5.6 % [facility] 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: [place] Diabetes As sociation guidelines indicate that patients with HgbA1c in the range 5.7-6.4% are at increased risk for development of diabetes, and intervention by lifestyle modification may be beneficial. HgbA1c greater or equal to 6.5% is considered diagnostic of diabetes. [facility] Iron and Iron binding capaci ty panelon 12-18-2023 Iron [Mass/Vol] 62 ug/dL 41 - 186 ug/dL [facility] Iron binding capacity [Mass/Vol] 318 ug/dL 232 - 386 ug/dL [facility] Iron/TIBC [Molar ratio] 19.5 % 15.0 - 57.0 % [facility] Lipid 1996 panelon Cholesterol [Mass/Vol] 189 mg/dL NINF - 200 mg/dL [facility] 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: <200 mg/dL, Desirabl e 200-239 mg/dL, Borderline high >239 mg/dL, High Cholesterol in HDL [Mass/Vol] 92 mg/dL 39 - PINF mg/dL [facility] 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: 40-59 mg/dL, Accepta ble >59 mg/dL, High: Negative risk factor for coronary heart disease <40 mg/dL, Low: Positive risk factor for coronary heart disease Cholesterol in LDL [Mass/Vol] 76 mg/dL NINF - 100 mg/dL [facility] 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: <100 mg/dL, Optimal 100-129 mg/dL, Near optimal/above optimal 130-159 mg/dL, Borderline high 160-189 mg/dL, High >189 mg/dL, Very high Secondary prevention optimal LDL Cholesterol levels are recommended to be < 70 mg/dL Cholesterol in LDL/Cholesterol in HDL [Mass ratio] 0.83 {ratio} NINF - 2.54 [facility] 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: Reference: 1. National Cholesterol Education Program ATP III Guideline At-A-Glance Quick Desk Reference: National Heart, Lung, and Blood [place]. National Institutes of Health. 2001: NIH Publication No. 01-3305. 2. An International Atherosclerosis Society position paper: global recommendations for the management of dyslipidemia: executive summary, Atherosclerosis. 2014: 232(2):410-413. Cholesterol in VLDL [Mass/Vol] 21 mg/dL NINF - 30 mg/dL [facility] Cholesterol non HDL [Mass/Vol] 97 mg/dL NINF - 130 mg/dL [facility] 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: <130 mg/dL, Optimal 130-159 mg/dL, Near optimal/above optimal 160-189 mg/dL, Borderline high 190-219 mg/dL, High >219 mg/dL, Very high Secondary prevention optimal non HDL Cholesterol levels are recommended to be <100 mg/dL Cholesterol.total/Choles terol in HDL [Mass ratio] 2.05 {ratio} NINF - 5.10 [facility] Fasting Time 18 hrs [facility] Triglyceride [Mass/Vol] 104 mg/dL NINF - 150 mg/dL [facility] 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: <150 mg/dL, Normal 150-199 mg/dL, Borderline high 200-499 mg/dL, High >499 mg/dL, Very high No Panel Informationon 12-17 Interpretation and review of laboratory results Normal [facility] CBC W Auto Differential pane l (Bld)on 12-17-2023 Basophils (Bld) [#/Vol] 0.05 10*3/uL [facility] Basophils/100 WBC (Bld) 0.5 % [facility] Differential cell count method Nom (Bld) Auto [facility] Eosinophils (Bld) [#/Vol] [facility] Eosinophils/100 WBC (Bld) 0.1 % [facility] Erythrocyte distribution width (RBC) [Ratio] 12.7 % 11.5 - 15.0 % [facility] Hematocrit (Bld) [Volume fraction] 40.3 % 36.0 - 46.0 % [facility] Hemoglobin (Bld) [Mass/Vol] 12.9 g/dL 11.5 - 15.5 g/dL [facility] Immature granulocytes (Bld) [#/Vol] [facility] Immature granulocytes/100 WBC (Bld) 0.2 % [facility] Lymphocytes (Bld) [#/Vol] 2.55 10*3/uL [facility] Lymphocytes/100 WBC (Bld) 26.8 % [facility] MCH (RBC) [Entitic mass] 30.9 pg 26. 0 - 34.0 pg [facility] MCHC (RBC) [Mass/Vol] 32.0 g/dL 30.5 - 36.0 g/dL [facility] MCV (RBC) [Entitic vol] 96.6 fL 80.0 - 100.0 fL [facility] Monocytes (Bld) [#/Vol] 0.39 10*3/uL [facility] Monocytes/100 WBC (Bld) 4.1 % [facility] Neutrophils (Bld) [#/Vol] 6.50 10*3/uL [facility] Neutrophils/100 WBC (Bld) 68.3 % [facility] Nucleated RBC (Bld) [#/Vol] [facility] Nucleated RBC/100 WBC (Bld) [Ratio] 0.0 % /100 WBC [facility] Platelet mean volume (Bld) [Entitic vol] 11.5 fL 9.0 - 12.7 fL [facility] Platelets (Bld) [#/Vol] 294 10*3/uL [facility] RBC (Bld) [#/Vol] 4.17 10*6/uL 3.90 - 5.2 0 m/uL [facility] WBC (Bld) [#/Vol] 9.52 10*3/uL [facility] Basophil percentageOrdered B y: Mickey Hagen on 10-25-2023 Basophil percentage < 1.0 mg/dL 0.55-1.02 [facility] No Panel InformationOrdered By: Mickey Hagen on 10-25-2023 Bedside Estimated GFR (eGFR) > 60.0000 mL/min >60 [facility] THYROID BIOPSY RIGHT (POC ) SURG USE ONLYon 04-30-2023 [facility] US THYROID/PARATHYROIDon [facility] DXA-AXIAL SKELETONon 023 LOWEST T-SCORE -2.2 [facility] C-REACTIVE PROTEIN (CRP)on 0 01-29-2023 CRP [Mass/Vol] 0.7 mg/dL <0.9 mg/dL [facility] ESR Westergren method (Bld) [Velocity]on 01-29-2023 ESR (Bld) [Velocity] 46 mm/h High 0 - 20 mm/hr [facility] 25(OH)D3 SerPl-mCncon 2022 25-hydroxyvitamin D3 [Mass/Vol] 29.3 ng/mL Low 31.0-80.0 [facility] 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: Order Comment: Speci men Type: BLOOD SPECIMEN Ordering Facility: [facility] Address: [address] [place] [address] Result Comment: Clas sification of 25 [place] Vitamin D status: Deficiency/Insufficiency: < or = 30 ng/ml. Sufficiency/Optimal Levels: 31-80 ng/mL Toxicity: > 100 ng/mL. Test performed by chemiluminescent immunoassay. Performed By: #### 1 989-3 #### [facility] CLIA [id number] [address] [facility] [place] [address] [place] ALT SerPl-cCncon 01-19-2023 ALT [Catalytic activity/Vol] 29 U/L Normal 7-38 [facility] 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: Order Comment: Speci men Type: BLOOD SPECIMEN Ordering Facility: [facility] Address: [address] [place] [address] Performed By: #### 1 742-6, 1750-7, 1920-03, 1987-12, 19647-8 #### [facility] CLIA [id number] [address] [place] [address] [place] AST SerPl-cCncon 01-19-2023 AST [Catalytic activity/Vol] 31 U/L Normal 13-35 [facility] 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: Order Comment: Speci men Type: BLOOD SPECIMEN Ordering Facility: [facility] Address: [address] [place] [address] Performed By: #### 1 742-6, 1750-7, 1920-03, 1987-12, 27246-9 #### [facility] CLIA [id number] [address] [place] [address] [place] Albumin SerPl-mCncon 023 Albumin [Mass/Vol] 4.0 g/dL Normal 3.9-4.9 [facility] 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: Order Comment: Speci men Type: BLOOD SPECIMEN Ordering Facility: [facility] Address: [address] [place] [address] Performed By: #### 1 742-6, 1751-7, 1920-03, 1987-5, 94389-9 #### [facility] CLIA [id number] [address] [place] [address] [place] C-REACTIVE PROTEIN (CRP)on 0 01-19-2023 CRP [Mass/Vol] 1.7 mg/dL High <0.9 mg/dL [facility] CALCIUM TOTAL BLDon 01-20-20 Calcium [Mass/Vol] 9.5 mg/dL 8.5 - 10. 2 mg/dL [facility] CBC W Auto Differential pane l (Bld)on 01-19-2023 Basophils (Bld) [#/Vol] 0.06 10*3/uL Normal <0.11 [facility] 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: Order Comment: Speci men Type: BLOOD SPECIMEN Ordering Facility: [facility] Address: [address] [place] [address] Performed By: #### 5 7021-8 #### [facility] CLIA [id number] [address] [place] [address] [place] Basophils/100 WBC (Bld) 0.6 % Normal [facility] 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: Order Comment: Speci men Type: BLOOD SPECIMEN Ordering Facility: [facility] Address: [address] [place] [address] Performed By: #### 5 7021-8 #### [facility] CLIA [id number] [address] [place] [address] [place] Differential cell count method Nom (Bld) Auto Normal [facility] 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: Order Comment: Speci men Type: BLOOD SPECIMEN Ordering Facility: [facility] Address: [address] [place] [address] Performed By: #### 5 7021-8 #### [facility] CLIA [id number] [address] [place] [address] [place] Eosinophils (Bld) [#/Vol] 10*3/uL Normal <0.46 [facility] 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: Order Comment: Speci men Type: BLOOD SPECIMEN Ordering Facility: [facility] Address: [address] [place] [address] Performed By: #### 5 7021-8 #### [facility] CLIA [id number] [address] [place] [address] [place] Eosinophils/100 WBC (Bld) 0.2 % Normal [facility] 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: Order Comment: Speci men Type: BLOOD SPECIMEN Ordering Facility: [facility] Address: [address] [place] [address] Performed By: #### 5 7021-8 #### [facility] CLIA [id number] [address] [place] Erythrocyte distribution width (RBC) [Ratio] 13.2 % Normal 11.5-15.0 [facility] 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: Order Comment: Speci men Type: BLOOD SPECIMEN Ordering Facility: [facility] Address: [address] [place] [address] Performed By: #### 5 7021-8 #### [facility] CLIA [id number] [address] [place] Hematocrit (Bld) [Volume fraction] 38.0 % Normal 36.0-46.0 [facility] 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: Order Comment: Speci men Type: BLOOD SPECIMEN Ordering Facility: [facility] Address: [address] [place] [address] Performed By: #### 5 7021-8 #### [facility] CLIA [id number] [address] [place] Hemoglobin (Bld) [Mass/Vol] 12.3 g/dL Normal 11.5-15.5 [facility] 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: Order Comment: Speci men Type: BLOOD SPECIMEN Ordering Facility: [facility] Address: [address] [place] [address] Performed By: #### 5 7021-8 #### [facility] CLIA [id number] [address] [place] Immature granulocytes (Bld) [#/Vol] 0.03 10*3/uL Normal <0.10 [facility] 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: Order Comment: Speci men Type: BLOOD SPECIMEN Ordering Facility: [facility] Address: [address] [place] [address] Performed By: #### 5 7021-8 #### [facility] CLIA [id number] [address] Immature granulocytes/100 WBC (Bld) 0.3 % Normal [facility] 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: Order Comment: Speci men Type: BLOOD SPECIMEN Ordering Facility: [facility] Address: [address] [place] [address] Performed By: #### 5 7021-8 #### [facility] CLIA [id number] [address] [place] Lymphocytes (Bld) [#/Vol] 2.92 10*3/uL Normal 1.00-4.00 [facility] 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: Order Comment: Speci men Type: BLOOD SPECIMEN Ordering Facility: [facility] Address: [address] [place] [address] Performed By: #### 5 7021-8 #### [facility] CLIA [id number] [address] Lymphocytes/100 WBC (Bld) 27.4 % Normal [facility] 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: Order Comment: Speci men Type: BLOOD SPECIMEN Ordering Facility: [facility] Address: [address] [place] [address] Performed By: #### 5 7021-8 #### [facility] CLIA [id number] [address] STATES OF [facility] MCH (RBC) [Entitic mass] 30.3 pg Normal 26.0-34.0 [facility] 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: Order Comment: Speci men Type: BLOOD SPECIMEN Ordering Facility: [facility] Address: [address] [place] [address] Performed By: #### 5 7021-8 #### [facility] CLIA [id number] [address] MCHC (RBC) [Mass/Vol] 32.4 g/dL Normal 30.5-36.0 [facility] 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: Order Comment: Speci men Type: BLOOD SPECIMEN Ordering Facility: [facility] Address: [address] [place] [address] Performed By: #### 5 7021-8 #### [facility] CLIA [id number] [address] [place] [address] [place] MCV (RBC) [Entitic vol] 93.6 fL Normal 80.0-100.0 [facility] 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: Order Comment: Speci men Type: BLOOD SPECIMEN Ordering Facility: [facility] Address: [address] [place] [address] Performed By: #### 5 7021-8 #### [facility] CLIA [id number] [address] [place] [address] [place] Monocytes (Bld) [#/Vol] 0.82 10*3/uL Normal <0.87 [facility] 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: Order Comment: Speci men Type: BLOOD SPECIMEN Ordering Facility: [facility] Address: [address] [place] [address] Performed By: #### 5 7021-8 #### [facility] CLIA [id number] [address] Monocytes/100 WBC (Bld) 7.7 % Normal [facility] 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: Order Comment: Speci men Type: BLOOD SPECIMEN Ordering Facility: [facility] Address: [address] [place] [address] Performed By: #### 5 7021-8 #### [facility] CLIA [id number] [address] [place] Neutrophils (Bld) [#/Vol] 6.79 10*3/uL Normal 1.45-7.50 [facility] 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: Order Comment: Speci men Type: BLOOD SPECIMEN Ordering Facility: [facility] Address: [address] [place] [address] Performed By: #### 5 7021-8 #### [facility] CLIA [id number] [address] [place] Neutrophils/100 WBC (Bld) 63.8 % Normal [facility] 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: Order Comment: Speci men Type: BLOOD SPECIMEN Ordering Facility: [facility] Address: [address] [place] [address] Performed By: #### 5 7021-8 #### [facility] CLIA [id number] [address] [place] [address] [place] Nucleated RBC (Bld) [#/Vol] 10*3/uL Normal <0.01 [facility] 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: Order Comment: Speci men Type: BLOOD SPECIMEN Ordering Facility: [facility] Address: [address] [place] [address] Performed By: #### 5 7021-8 #### [facility] CLIA [id number] [address] [place] [address] [place] Nucleated RBC/100 WBC (Bld) [Ratio] 0.0 /100 WBC Normal [facility] 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: Order Comment: Speci men Type: BLOOD SPECIMEN Ordering Facility: [facility] Address: [address] [place] [address] Performed By: #### 5 7021-8 #### [facility] CLIA [id number] [address] [place] [address] [place] Platelet mean volume (Bld) [Entitic vol] 10.1 fL Normal 9.0-12.7 [facility] 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: Order Comment: Speci men Type: BLOOD SPECIMEN Ordering Facility: [facility] Address: [address] [place] [address] Performed By: #### 5 7021-8 #### [facility] CLIA [id number] [address] [place] [address] [facility] [place] Platelets (Bld) [#/Vol] 295 10*3/uL Normal 150-400 [facility] 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: Order Comment: Speci men Type: BLOOD SPECIMEN Ordering Facility: [facility] Address: [address] [place] [place] [address] Performed By: #### 5 7021-8 #### [facility] CLIA [id number] [address] [place] [address] [place] RBC (Bld) [#/Vol] 4.06 10*6/uL Normal 3.90-5.20 [facility] 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: Order Comment: Speci men Type: BLOOD SPECIMEN Ordering Facility: [facility] Address: [address] [place] [address] Performed By: #### 5 7021-8 #### [facility] CLIA [id number] [address] OF [facility] WBC (Bld) [#/Vol] 10.64 10*3/uL Normal 3.70-11.00 [facility] 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: Order Comment: Speci men Type: BLOOD SPECIMEN Ordering Facility: [facility] Address: [address] [place] [address] Performed By: #### 5 7021-8 #### [facility] CLIA [id number] [address] [place] CREATININE BLDon 01-19-2023 Creatinine [Mass/Vol] 0.72 mg/dL Normal 0.58-0.96 [facility] 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: Order Comment: Speci men Type: BLOOD SPECIMEN Ordering Facility: [facility] Address: [address] [place] [address] Performed By: #### C RET1 #### [facility] CLIA [id number] [address] ESTIMATED GLOMERULAR FILTRATION RATE 89 mL/min/1.73m??? Normal >=60 [facility] 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: Order Comment: Sheroni men Type: BLOOD SPECIMEN Ordering Facility: [facility] Address: [address] [place] [address] Result Comment: Mary mated Glomerular Filtration Rate (eGFR) is calculated using the 2020 CKD-EPI creatinine equation. This equation utilizes serum creatinine, sex, and age as parameters. The creatinine assay has traceable calibration to isotope dilution-mass spectrometry. Refer to KDIGO guidelines for clinical interpretation. In patients with unstable renal function, e.g. those with acute kidney injury, the eGFR may not accurately reflect actual GFR. Performed By: #### C RET1 #### [facility] CLIA [id number] [address] CRP SerPl-mCncon 01-19-2023 CRP [Mass/Vol] 1.7 mg/dL High <0.9 [facility] 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: Order Comment: Speci men Type: BLOOD SPECIMEN Ordering Facility: [facility] Address: [address] [place] [id number] Performed By: #### 1 742-6, 7, 1920-03, 1987-12, #### [facility] CLIA [id number] [address] [place] [address] [place] Calcium SerPl-mCncon 023 Calcium [Mass/Vol] 9.5 mg/dL Normal 8.5-10.2 [facility] 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: Order Comment: Speci men Type: BLOOD SPECIMEN Ordering Facility: [facility] Address: [address] [place] [address] Performed By: #### 1 742-6, 7, 1920-03, 1987-12, #### [facility] CLIA [id number] [address] [place] ESR Westergren method (Bld) [Velocity]on 01-19-2023 ESR (Bld) [Velocity] 61 mm/h High 0 - 20 mm/hr Cl [facility] ESR (Bld) [Velocity] 61 mm/h High 0-20 [facility] 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: Order Comment: Speci men Type: BLOOD SPECIMEN Ordering Facility: [facility] Address: [address] [place] [address] Performed By: #### 4 537-7 #### [facility] CLIA [id number] [address] [facility] [id number] [place] PARRIS DIAG W DOMENIC LTon 023 [facility] US BREAST LTD LTon 3 [facility] PARRIS SCREENINGon 10-02-2022 [facility] XR TIBIA FIBULA 2V AP/LAT LE FTon 07-03-2022 [facility] XR Tibia and Fibula - left A P and Lateralon 07-03-2022 IMPRESSION: No radiographic evidence of acute osseous abnormality. Mild soft tissue swelling in the mid anterior calf. Agency Legal Counsel: PSCJaya Transcribe Date/Time: Jul 03 2022 10:24A Dictated by : PRIMO OBANDO MD This examination was interpreted and the report reviewed and electronically signed by: PRIMO OBANDO MD on Jul 03 2022 10:25AM [facility] DIVISION OF RADIOLOGY * * *Final Report* * * DATE OF EXAM: Jul 03 2022 10:16AM WOX [id number] - XR TIBIA FIBULA 2V AP/LAT LT / PROCEDURE REASON: multiple diagnoses * * * * Physician Interpretation * * * * CLINICAL INDICATION: Pain TECHNIQUE: AP and lateral radiographs of the left tibia/fibula COMPARISON: None FINDINGS: No acute fracture or dislocation identified. No radiographic evidence of destructive osseous lesion. Mild soft tissue swelling in the mid anterior calf. DIVISION OF RADIOLOGY Provider, [facility] - 07/03/2022 * * *Final Report* * * DATE OF EXAM: Jul 03 2022 10:16AM WOX 5265 - XR TIBIA FIBULA 2V AP/LAT LT / PROCEDURE REASON: multiple diagnoses * * * * Physician Interpretation * * * * CLINICAL INDICATION: Pain TECHNIQUE: AP and lateral radiographs of the left tibia/fibula COMPARISON: None FINDINGS: No acute fracture or dislocation identified. No radiographic evidence of destructive osseous lesion. Mild soft tissue swelling in the mid anterior calf. IMPRESSION IMPRESSION: No radiographic evidence of acute osseous abnormality. Mild soft tissue swelling in the mid anterior calf. Agency Legal [facility] Transcribe Date/Time: Jul 03 2022 10:24A Dictated by : PRIMO OBANDO MD This examination was interpreted and the report reviewed and electronically signed by: PRIMO OBANDO MD on Jul 03 2022 10:25AM [facility] Radiology Study observation (narrative) [facility] XR Tibia and Fibula - left A P and LateralOrdered By: [facility] Provider on 07-03-2022 [facility] XR Chest PA and Lateralon IMPRESSION: No acute radiographic abnormality. 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 RESULT: Lines, tubes, and devices: None. Lungs and pleura: No consolidation. No lung mass. No pleural effusion. No pneumothorax. Cardiomediastinal silhouette: Normal cardiomediastinal silhouette. Bones and soft tissues: Unremarkable. DIVISION OF RADIOLOGY Provider, 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 RESULT: Lines, tubes, and devices: None. Lungs and pleura: No consolidation. No lung mass. No pleural effusion. No pneumothorax. Cardiomediastinal silhouette: Normal cardiomediastinal silhouette. Bones and soft tissues: Unremarkable. IMPRESSION IMPRESSION: No acute radiographic abnormality. Agency Legal Counsel: PSCB Transcribe Date/Time: May 22 2022 4:41P Dictated by : ANIKET LUNA MD This examination was interpreted and the report reviewed and electronically signed by: ANIKET LUNA MD on May 22 2022 4:42PM EST [facility] Radiology Study observation (narrative) Anayeli Zheng XR Chest PA and LateralOrder ed By: Ccf Provider on 05-22-2022 [facility] Basophil percentageon 2021 Basophil percentage < 0.9 mg/dL 0.55-1.02 [facility] Work Phone: No Panel Informationon 03-27 Bedside Estimated GFR (eGFR) > 60.0000 mL/min >60 [facility] Work Phone: OPERATIVE REPORTon 2 Ordered by an unspecified provider. [facility] Basic Metabolic Panelon 02-18 Anion gap [Moles/Vol] 8 mmol/L Normal 3-13 [facility] 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: Performed By: #### B MP3, HEMOG #### [facility] [address] [place] [address] Calcium [Mass/Vol] 8.8 mg/dL Normal 8.4-10.4 [facility] 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: Performed By: #### B MP3, HEMOG #### [facility] [address] [place] [address] CO2 [Moles/Vol] 30 mmol/L Normal 22-30 [facility] 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: Performed By: #### B MP3, HEMOG #### [facility] [address] [place] [address] Glucose [Mass/Vol] 95 mg/dL Normal 70-100 [facility] 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: Performed By: #### B MP3, HEMOG #### [facility] [address] [place] [address] Urea nitrogen [Mass/Vol] 17 mg/dL Normal 9-20 [facility] 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: Performed By: #### B MP3, HEMOG #### [facility] [address] [place] [address] Creatinine [Mass/Vol] 0.77 mg/dL Normal 0.52-1.25 [facility] 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: Performed By: #### B MP3, HEMOG #### [facility] [address] [place] [address] GFR/1.73 sq M.predicted among blacks MDRD (S/P/Bld) [Vol rate/Area] 89.5 mL/min/{1.73_m2} Normal >60 [facility] 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: Performed By: #### B MP3, HEMOG #### [facility] [address] [place] [address] GFR/1.73 sq M.predicted among non-blacks MDRD (S/P/Bld) [Vol rate/Area] 77.2 mL/min/{1.73_m2} Normal >60 [facility] 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: Result Comment: KDIG O guidelines provide the following GFR categories: Stage GFR(ml/min/1.73 m2) Terms G1 >=90 Normal or high G2 60-89 Mildly decreased* G3a 45-59 Mildly to moderately decreased G3b 30-44 Moderately to severely decreased G4 15-29 Severely decreased G5 <15 Kidney failure *Relative to young adult level. In the absence of evidence of kidney damage, neither GFR category G1 nor G2 fulfill the criteria for CKD. The CKD-EPI equation is validated in individuals 18 years of age and older. Currently the best equation for estimating glomerular filtration rate (GFR) from serum creatinine in children is the Bedside Santa equation. It is less accurate in patients with extremes of muscle mass, restriction of dietary protein, ingestion of creatine, extra-renal metabolism of creatinine, or treatment with medications that affect renal tubular creatinine secretion. Performed By: #### B MP3, HEMOG #### [facility] [address] [place] [address] Chloride [Moles/Vol] 102 mmol/L Normal 98-107 [facility] 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: Performed By: #### B MP3, HEMOG #### [facility] [address] [place] [address] Potassium [Moles/Vol] 4.2 mmol/L Normal 3.5-5.1 [facility] 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: Performed By: #### B MP3, HEMOG #### [facility] [address] [place] [address] Sodium [Moles/Vol] 140 mmol/L Normal 135-145 [facility] 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: Performed By: #### B MP3, HEMOG #### [facility] [address] [place] [address] Anion gap [Moles/Vol] 8 mmol/L 3 - 13 mmol/L [facility] Calcium [Mass/Vol] 8.8 mg/dL 8.4 - 10. 4 mg/dL [facility] Chloride [Moles/Vol] 102 mmol/L 98 - 10 7 mmol/L [facility] CO2 [Moles/Vol] 30 mmol/L 22 - 30 mmol/L [facility] Creatinine [Mass/Vol] 0.77 mg/dL 0.52 - 1.25 mg/dL [facility] EGFR IF NonAfrican Burundian 77.2 mL/min 60 - PINF mL/min [facility] 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: KDIGO guidelines pro vide the following GFR categories: Stage GFR(ml/min/1.73 m2) Terms G1 >=90 Normal or high G2 60-89 Mildly decreased* G3a 45-59 Mildly to moderately decreased G3b 30-44 Moderately to severely decreased G4 15-29 Severely decreased G5 <15 Kidney failure *Relative to young adult level. In the absence of evidence of kidney damage, neither GFR category G1 nor G2 fulfill the criteria for CKD. The CKD-EPI equation is validated in individuals 18 years of age and older. Currently the best equation for estimating glomerular filtration rate (GFR) from serum creatinine in children is the Bedside Santa equation. It is less accurate in patients with extremes of muscle mass, restriction of dietary protein, ingestion of creatine, extra-renal metabolism of creatinine, or treatment with medications that affect renal tubular creatinine secretion. GFR/1.73 sq M.predicted among blacks MDRD (S/P/Bld) [Vol rate/Area] 89.5 mL/min/{1.73_m2} 60 - PINF mL/min [facility] Glucose [Mass/Vol] 95 mg/dL 70 - 100 mg/dL [facility] Potassium [Moles/Vol] 4.2 mmol/L 3.5 - 5.1 mmol/L [facility] Sodium [Moles/Vol] 140 mmol/L 135 - 145 mmol/L [facility] Urea nitrogen (BldV) [Mass/Vol] 17 mg/dL 9 - 20 mg/dL [facility] Test Performed by [facility] [employer] [facility], [address] [place], [place] [id number] [place] [address] LAB [facility] CBCon 03-16-2022 Hematocrit (Bld) [Volume fraction] 33.6 % Low 35 - 47 % [facility] Hemoglobin (Bld) [Mass/Vol] 11.4 g/dL Low 11.7 - 16 g/dL [facility] Interpretation and review of laboratory results Abnormal [facility] MCH (RBC) [Entitic mass] 30.8 pg 26 - 34 pg [facility] MCHC (RBC) [Mass/Vol] 34.0 % 32 - 36 % [facility] MCV (RBC) [Entitic vol] 90.5 fL 79 - 98 fL [facility] Platelet distribution width (Bld) [Ratio] 13.1 % 11.5 - 14.5 % [facility] Platelet mean volume (Bld) [Entitic vol] 7.8 fL 7.4 - 12.4 fL [facility] 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: MPV is a calculated measurement using platelet volume ratio. Platelets (Bld) [#/Vol] 324 10*3/uL 140 - 440 10*3/uL [facility] RBC (Bld) [#/Vol] 3.71 10*6/uL Low 3.8 - 5.2 10*6/uL [facility] WBC (Bld) [#/Vol] 10.5 10*3/uL 3.6 - 10.7 10*3/uL [facility] Test Performed by [facility], [address] [place], [place] [id number] [place] [address] LAB [facility] Hemogramon 03-16-2022 Erythrocyte distribution width (RBC) [Ratio] 13.1 % Normal 11.5-14.5 [facility] 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: Performed By: #### B MP3, HEMOG #### [facility] [address] [facility] [place] [address] Hematocrit (Bld) [Volume fraction] 33.6 % Low 35.0-47.0 [facility] 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: Performed By: #### B MP3, HEMOG #### [facility] [address] [place] [address] Hemoglobin (Bld) [Mass/Vol] 11.4 g/dL Low 11.7-16.0 [facility] 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: Performed By: #### B MP3, HEMOG #### [facility] [address] [place] [address] MCH (RBC) [Entitic mass] 30.8 pg Normal 26.0-34.0 [facility] 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: Performed By: #### B MP3, HEMOG #### [facility] [address] [place] [address] MCHC 34.0 % Normal 32.0-36.0 [facility] 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: Performed By: #### B MP3, HEMOG #### [facility] [address] [place] [address] MCV (RBC) [Entitic vol] 90.5 fL Normal 79.0-98.0 [facility] 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: Performed By: #### B MP3, HEMOG #### [facility] [address] [place] [address] Platelet mean volume (Bld) [Entitic vol] 7.8 fL Normal 7.4-12.4 [facility] 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: Result Comment: MPV is a calculated measurement using platelet volume ratio. Performed By: #### B MP3, HEMOG #### [facility] [address] [place] [address] Platelets (Bld) [#/Vol] 324 10*3/uL Normal 140-440 [facility] 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: Performed By: #### B MP3, HEMOG #### [facility] [address] [place] [address] RBC (Bld) [#/Vol] 3.71 10*6/uL Low 3.80-5.20 [facility] 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: Performed By: #### B MP3, HEMOG #### [facility] [address] [place] [address] WBC (Bld) [#/Vol] 10.5 10*3/uL Normal 3.6-10.7 [facility] 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: Performed By: #### B MP3, HEMOG #### [facility] [address] 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 Left Femoral Neck: 0.776 g/cm2 , T-score-1.9, Z-score0. . This is not significantly changed Left Total Hip: 0.787 g/cm2 , T-score-1.7, Z-score 0. . This is not significantly changed Right Femoral Neck: 0.781 g/cm2 , T-score -1.8, Z-score0.1 . This is not significantly changed Right Total Hip: 0.742 g/cm2 , T-score-2.1, Z-score -0.4 . This is not significantly changed CHANGE IS STATISTICALLY SIGNIFICANT IN THE SPINE OR HIP IF GREATER THAN OR EQUAL TO 0.04g/cm2 IMPRESSION: THE LOWEST T-SCORE IS -2.1 IN THE RIGHT HIP 1) DIAGNOSIS (based on BMD alone): OSTEOPENIA . There has been no significant interval change Follow-up scans should always be done on the same machine for accurate comparison. FOR MORE INFORMATION: [facility] Osteoporosis and Metabolic Bone Disease: www.ccf.org/arthritis/ osteo National Osteoporosis Foundation: www.nof.org International Society of Clinical Densitometry www.iscd.org [employer] CLASSIFICATION OF BONE MASS: CLASSIFICATION T-SCORE Normal Greater than -1 Low Bone Mass Between -1 and -2.5 (Osteopenia) Osteoporosis Less than or equal to -2.5 Agency Legal Counsel: NAYELY Transcribe Date/Time: Feb 06 2022 11:08A Dictated by : LUCILA HASKINS MD This examination was interpreted and the report reviewed and electronically signed by: LUCILA HASKINS MD on Feb 06 2022 11:09AM EST [id number] [facility] CTA HEAD WO/W IVCONon 2021 [facility] CR Ankle 3+ Views Righton CR Ankle 3+ Views Right Patient Name: CECELIA GRAJEDA Diagnostic Radiology ACCESSION EXAM DATE/TIME PROCEDURE ORDERING PROVIDER [id number] 12/30/2021 14:35 EDT CR Ankle 3+ Views Right [id number] -MARIELOS JARQUIN CPT code 57585 Reason For Exam (CR Ankle 3+ Views Right) pain Report RIGHT ANKLE THREE VIEWS CLINICAL INDICATION: pain TECHNIQUE: Three views of the right ankle. COMPARISON: 10/31/2019 FINDINGS: Distal tibia, distal fibula, and talus arthrodesis with four orthopedic screws. Solid-appearing fusion noted. No acute fracture or dislocation seen. No acute bone destruction. No hardware complication seen. IMPRESSION: 1. Ankle arthrodesis, no significant change. Report Dictated on Workstation: FELIX Final Dictating Physician: MD CHRISTIAN JOHN R Signed Date and Time: 01/01/2022 10:34 pm Signed by: MD CHRISTIAN JOHN R Transcribed Date and Time: 01/01/2022 10:35 Normal [facility] CALCIUM TOTAL [facility] 12-17-19 Calcium [Mass/Vol] 9.3 mg/dL 8.5 - 10. 2 mg/dL [facility] CREATININE [facility] 12-16-2021 Creatinine [Mass/Vol] 0.81 mg/dL 0.58 - 0.96 mg/dL [facility] Estimated Glomerular Filtration Rate 78 mL/min/1.73m >=60 mL/min/1.73m [facility] XR CERV OTHER 4V AP/LAT/OBLo n 12-16-2021 [facility] XR Cervical spine AP and Lat eral and obliqueon 12-16-2021 * * *Final Report* * * DATE OF EXAM: Dec 16 2021 11:27AM STX 5311 - XR CERVICAL 4V AP/LAT/OBL / PROCEDURE REASON: Neck pain * * * * Physician Interpretation * * * * CERVICAL SPINE RADIOGRAPHS HISTORY: Neck pain TECHNOLOGIST PROVIDED HISTORY (if applicable): FEELS AND HEARS CREAKING NOISES IN NECK, NOT PAINFUL, NO KNOWN INJURY TECHNIQUE: XR CERVICAL 4V AP/LAT/OBL COMPARISON: Cervical spine radiographs 08/15/2018 RESULT: Counting reference: Craniocervical junction Vertebral bodies have normal height and contour. There is no acute bony abnormality identified. Minor levocurvature at C5 The is grade I retrolisthesis at C5-6 and C6-7. The is grade I anterolisthesis at C4-5. Mild disc space narrowing at C4-5. Moderate disc space narrowing at C5-6 and C6-7 Diffuse cervical facet arthrosis with hypertrophic spurring Mild bony foraminal narrowing on the left at C4-5 and on the right at C5-6 and C6-7. Moderate bony foraminal narrowing on the left at C5-6 and on the right at C4-5 due to prominent uncinate spurs and facet arthrosis. [id number] SE_DIVISION OF RADIOLOGY Provider, [facility] - 12/16/2021 * * *Final Report* * * DATE OF EXAM: Dec 16 2021 11:27AM STX 5311 - XR CERVICAL 4V AP/LAT/OBL / PROCEDURE REASON: Neck pain * * * * Physician Interpretation * * * * CERVICAL SPINE RADIOGRAPHS HISTORY: Neck pain TECHNOLOGIST PROVIDED HISTORY (if applicable): FEELS AND HEARS CREAKING NOISES IN NECK, NOT PAINFUL, NO KNOWN INJURY TECHNIQUE: XR CERVICAL 4V AP/LAT/OBL COMPARISON: Cervical spine radiographs 08/15/2018 RESULT: Counting reference: Craniocervical junction Vertebral bodies have normal height and contour. There is no acute bony abnormality identified. Minor levocurvature at C5 The is grade I retrolisthesis at C5-6 and C6-7. The is grade I anterolisthesis at C4-5. Mild disc space narrowing at C4-5. Moderate disc space narrowing at C5-6 and C6-7 Diffuse cervical facet arthrosis with hypertrophic spurring Mild bony foraminal narrowing on the left at C4-5 and on the right at C5-6 and C6-7. Moderate bony foraminal narrowing on the left at C5-6 and on the right at C4-5 due to prominent uncinate spurs and facet arthrosis. IMPRESSION IMPRESSION: 1. Moderate diffuse cervical spondylosis with interval progression. Agency Legal Counsel: NAYELY Transcribe Date/Time: Dec 16 2021 1:18P Dictated by : ANNIKA MONTALVO MD This examination was interpreted and the report reviewed and electronically signed by: ANNIKA MONTALVO MD on Dec 16 2021 1:19PM [facility] Radiology Study observation (narrative) [facility] XR Cervical spine AP and Lat eral and obliqueOrdered By: Ccf Provider on 12-16-2021 [facility] XR ANKLE RIGHT (MIN 3 VIEWS) on 10-31-2019 Patient Name: CECELIA QUIROZ ---Diagnostic Radiology--- Exam Date/Time 10/31/2019 10:45:00 EDT Exam CR Ankle 3+ Views Right Ordering Physician ARTUR PENNINGTON Accession Number [id number] CPT4 Codes 44795 () Reason For Exam pain Report RIGHT ANKLE: CLINICAL INDICATION: Medial right ankle pain. TECHNIQUE: AP, Lat, Oblique COMPARISON: Right ankle radiographs 01/26/2017 FINDINGS: Unchanged appearance of multiple interlocking screws across the tibiotalar joint. There is bony fusion of the tibiotalar joint. There is no fracture seen. The bones appear diffusely osteopenic. IMPRESSION: 1. Stable appearance of postsurgical change status post fusion of the tibiotalar joint. No evidence for fracture. Report Dictated on Workstation: [id number] --- Final --- Dictating Physician: MD DANIEL GEORGE RICHARD Signed Date and Time: 10/31/2019 3:28 pm Signed by: MD DANIEL GEORGE RICHARD Transcribed Date and Time: 10/31/2019 3:29 [facility] [place], [facility] Incoming Radiology Results From [facility] - 10/31/2019 3:29 PM EDT Patient Name: CECELIA QUIROZ ---Diagnostic Radiology--- Exam Date/Time 10/31/2019 10:45:00 EDT Exam CR Ankle 3+ Views Right Ordering Physician ARTUR PENNINGTON Accession Number [id number] CPT4 Codes 99240 () Reason For Exam pain Report RIGHT ANKLE: CLINICAL INDICATION: Medial right ankle pain. TECHNIQUE: AP, Lat, Oblique COMPARISON: Right ankle radiographs 01/26/2017 FINDINGS: Unchanged appearance of multiple interlocking screws across the tibiotalar joint. There is bony fusion of the tibiotalar joint. There is no fracture seen. The bones appear diffusely osteopenic. IMPRESSION: 1. Stable appearance of postsurgical change status post fusion of the tibiotalar joint. No evidence for fracture. Report Dictated on Workstation: [email or web address] --- Final --- Dictating Physician: MD FREDY, CATARINO WILDE Signed Date and Time: 10/31/2019 3:28 pm Signed by: MD DANIEL GEORGE RICHARD Transcribed Date and Time: 10/31/2019 3:29 [place], [place] ELBOW COMPLETE MIN. 3 VIEWSo n 04-22-2019 ELBOW COMPLETE MIN. 3 VIEWS Patient Name: CECELIA QUIROZ STUDY: ELBOW COMPLETE MIN 3 VIEWS; 04/22/2019 7:46 pm INDICATION: Left elbow pain after fall. COMPARISON: None. ACCESSION NUMBER(S): [id number] ORDERING CLINICIAN: ALTHEA STOUT TECHNIQUE: Five views of the left elbow were reviewed. FINDINGS: No evidence of acute fracture or dislocation. Linear calcification in the region of the radial collateral ligament. Linear spur of the olecranon as well. No abnormal joint effusion is identified. Soft tissues appear unremarkable. IMPRESSION: No acute osseous injury. Electronically signed by: DO Osman NICHOLE [facility] HUMERUS, MIN 2 VIEWSon 04-22 HUMERUS, MIN 2 VIEWS Patient Name: CECELIA QUIROZ STUDY: HUMERUS, MIN 2 VIEWS; SHOULDER, CMPLT, MIN 2 VIEWS; 04/22/2019 7:46 pm INDICATION: Left shoulder and humerus pain after fall, trauma. COMPARISON: None. ACCESSION NUMBER(S): [id number]; [id number] ORDERING CLINICIAN: ALTHEA STOUT TECHNIQUE: There are 2 studies in this report. Three views of the left humerus and three views of the left shoulder are reviewed. FINDINGS: There is a comminuted fracture of the left humeral head involving humeral head, greater tuberosity and proximal humeral shaft. Glenohumeral alignment appears maintained. The distal left humerus is intact. Soft tissues appear unremarkable. IMPRESSION: Comminuted left humeral head fracture. Electronically signed by: DO Osman NICHOLE [facility] Provider Note - ED v2on 0 Provider Note - ED v2 Provider Note - ED v2: Chart Review: ED NOTES ED NOTES: HPI: Pt is a 69 year old WF from home who stated that she was at work shortly before arriving from [place]. 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 Somehow she hit the trailer and had immediate pain in her left scapula, shoulder, humerus and elbow. She stated that she was swinging with the harness. [place] a snap. Did not hit head or neck. Denied use of blood thinner. She has had surgery on her left arm in the past. pain 8-10. ROS: Constitutional: negative for fever, chills, or malaise Neuro: negative for dizziness, headache, numbness, tingling ENT: Negative for nasal congestion or sore throat Resp: negative for shortness of breath, cough, or wheezing CV: negative for chest pain, palpitations GI: negative for abd pain, nausea, vomiting or diarrhea : negative for dysuria, frequency, or urgency Skin: negative for lesions, wounds, or rash Musculoskeletal: Negative for weakness, myalgia, or arthralgia -- left shoulder, scapula, humerus and elbow Endocrine: Negative for polyuria or polydipsia. 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 Skin: warm and dry. Negative for ecchymosis, mottling, cyanosis, ruddiness, erythema, abrasions, excoriations and weeping ulcers. HEENT: The head was normocephalic and atraumatic. The mucous membranes were moist, the sclera were white, and conjunctivae pink. Neck: The neck was supple with full range of motion. There was no lymphadenopathy or thyroidmegaly. The neck veins were not distended. There were no carotid bruits. The carotid upstrokes were brisk and normal in volume. Respiratory: The lungs were clear to auscultation and percussion bilaterally. There were no rales, rhonchi, or wheezes appreciated. Cardiovascular: The heart was regular in rate and rhythm. S1 S2 were normal. No murmurs, gallops,rubs, clicks or extra heart sounds were noted. Gastrointestinal: The abdomen was soft and nontender with normoactive bowel sounds. There was no hepatosplenomegaly. The abdominal aorta was palpable but not enlarged. left scapula pain with palpitation humerus, shoulder and elbow. no neck pain Pulse intact. Extremities: extremities with pulses +2, no edema, no cyanosis, skin intact. Moves all extremities. Neurological/Psychiatr ic: The patient was pleasant and cooperative. Oriented to person, place and time. Neurologic status appears grossly intact. Testing: Diagnostic Imaging: xrays as noted Treatment IV morphine toradol Procedures n/a Medical Decision making This patients ED course included a personal history and physical examination, re-evaluation prior to discharge This patient has remained hemodynamically stable during their ED course. Re-evaluation. Patients symptoms show no change Repeat physical examination is not changed Counseling/Plan: Discussed with patient, applicable family members present regarding results, provided specific details for the plan of care, counseling regarding diagnosis and prognosis. Questions answered and patient agreeable with plan. Impression work injury l scapula humerus shoulder and elbow pain nicotine use HISTORY OF PRESENTING ILLNESS CECELIA is a 69 year old Female and was seen by me at 22-Apr-2019 18:04 for a chief complaint of shoulder pain/injury . Triage Information: Most recent Vital Sign Value Date Temp (F): 97.3 04-22-2019 18:04 Temp (C): 36.3 04-22-2019 18:04 Heart Rate (beats/min): 65 04-22-2019 18:04 Respirations (breaths/min): 16 04-22-2019 18:04 SpO2 (%): 96 04-22-2019 18:04 BP Systolic (mm Hg): 141 04-22-2019 18:04 BP Diastolic (mm Hg): 70 04-22-2019 18:04 PAST MEDICAL HISTORY ATTESTATION: I have reviewed and confirmed nurse's/medic's notes for patient's medications, allergies, medical history, and surgical history ALLERGIES/INTOLERANCES : No Known Allergies HEALTH HISTORY: No documented data. OUTPATIENT MEDICATIONS: Home Medications Review Status for Reconciliation: Not Done Med Status: Patient Currently Takes Medications Drug Name: Percocet 5/325 oral tablet Instructions: 1 tab(s) orally every 6 hours, As Needed SIGNIFICANT EVENTS: No documented data. RESULTS/VITAL SIGNS RESULTS: Radiology Results: Impression: Comminuted left humeral head fracture. Xray Humerus 2 View [Apr 22 2019 8:10PM] Impression: Comminuted left humeral head fracture. Xray Shoulder Complete Min 2 Views [Apr 22 2019 8:10PM] Impression: No acute osseous injury. Xray Elbow 2 View [Apr 22 2019 8:06PM] Impression: Xray Elbow 2 View [Apr 22 2019 7:43PM] Impression: Xray Elbow 2 View [Apr 22 2019 7:40PM] VITAL SIGNS: T PRBP SpO2O2(LPM) %FiO2 Method 22-Apr-2019 18:04:[id number] 0 96 room air, no respiratory support MEDICAL DECISION MAKING/ED COURSE MDM/ED COURSE: Discussed Findings with: patient and family Data Reviewed: old records, vital signs, EMS record and nurses notes Conducted Detailed Discussion with Patient and/or Guardian Regarding: radiology results, need for outpatient follow-up and return to ED if symptoms worsen, persist or questions arise CLINICAL IMPRESSION Diagnosis/Annotation: ED Dx Name:Nicotine use disorder Code:F17.200 Name:Encounter related to worker's compensation claim Code:Z02.6 Name:Shoulder pain Code:M25.519 Name:Elbow pain Code:M25.529 Name:Pain in scapula Code:M89.8X1 Name:Humerus fracture Code:S42.309A Dispostion: discharged Type: home ATTESTATION Attestation: Supervising physician on site, available for consultation, non-participatory in the evaluation of the care of this patient. CRITICAL CARE TIME Is this a critically ill patient: no Electronic Signatures: Althea Stout (ROLLER INSPECTOR AND MENDER-SHINGLE INSPECTOR) (Signed 22-Apr-2019 18:22) Authored: Provider Note - ED v2 Juan Antonio Smiley) (Signed 22-Apr-2019 23:42) Authored: Provider Note - ED v2 Last Updated: 22-Apr-2019 23:42 by Juan Antonio Smiley) References: 1. Data Referenced From Triage - ED 22-Apr-2019 18:04 Normal [facility] Risk Screen - PEDS Emergency on 04-22-2019 Risk Screen - PEDS Emergency Preferred Language: Preferred Language: Preferred Language for Discussing Health Care (patient/designee)Engl deejay Advanced Directives: Advance Directive/DNRnot applicable Learning Assessment (Patient): Patient is Able to be Assessed for Learningyes Educational Leveltoddler 1-3 years, pre-school Factors Influence Readiness to Learntoddler 1-3 years Factors Impact Ability to Learnnone Devices/Methods Used to Communicatenone Learning Preferencesskill demonstration Cultural Considerationsnone Developmental Considerationsnone Gnosticist Considerationsnone Other Learnersfamily Learning Assessment (Other Learner): Other learner availableyes Other Learner is Able to be Assessed for Learningyes Learnerfamily Factors Influencing Readiness to Learnmotivation to learn Factors that Impact Ability to Learnnone Devices/Methods Used to Communicatenone Learning Preferencesverbal instruction Cultural Considerationsnone Developmental Considerationsnone Gnosticist Considerationsnone Family Violence PEDS: Family Violence Screen (Patient < 8 yo, screen parent only. Patient 8 yo and older, screen both parent and child.): Do you feel UNSAFE going back to the place where you livepatient not asked, under 8 yrs old Clinician Assessment: Are there any apparent signs of injuries/behaviors that could be related to abuse/neglectno Ask parent or guardian: Are there times when you, your child(joanna), or any member of your household feel unsafe, harmed, or threatened around persons with whom you know or liveno Have YOU threatened or abused anyone physically, emotionally, or sexually not applicable (only required for Behavioral Health Patient) Suicide / Depression: Suicide/Depression Screen (Screen patients 12 yo and older, or any patient with a mental health issue.): During the past month, have you often been bothered by feeling down, depressed or hopelessunable to assess During the past month, have you often had little interest or pleasure in doing thingsunable to assess Have you had any thoughts of harming yourselfunable to assess Have you had any thoughts of harming anyone elseunable to assess Fall: Pediatric Humpty Dumpty: Humpty Dumpty Risk Assessment: Humpty Dumpty Risk Assessment: Humpty: Age(4) less than 3 years old Humpty: Gender(1) female Humpty: Diagnosis(1) other diagnosis Humpty: Cognitive Impairments(2) forgets limitations Humpty: Environmental Factors(2) patient placed in bed Humpty: Response to Surgery/ Sedation/ Anesthesia(1) more than 48 hours/none Humpty: Medication Usage(1) other medications Humpty: ScoreImage has been removed. 12 Falls Precautions per Humpty Dumpty Screening ToolHIGH RISK falls safety precautions necessary (score 12+) Humpty Dumpty Educationteaching provided Teaching ProvidedPI 729 Humpty Dumpty Falls Prevention Program For Inpatient use ONLY Respiratory / Cough /TB: ED / TB / Cough / Respiratory Screen: Do you have a coughno Smoking/Social History (Required 13 years or older): Smoking Status: never smoker Alcohol Use: denies Drug Use: denies Admission Risk Screen: Significant IndicatorsComplete Electronic Signatures: Chelsea Whitten (RN) (Signed 22-Apr-2019 19:57) Authored: Preferred Language, Advanced Directives, Learning Assessment (Patient), Learning Asessment (Other Learner), Family Violence PEDS, Suicide / Depression, Fall: Pediatric Humpty Dumpty, Respiratory / Cough /TB, Smoking/Social History (Required 13 years or older) Last Updated: 22-Apr-2019 19:57 by Chelsea Whitten (RN) Normal [facility] SHOULDER, CMPLT, MIN 2 VIEWS on 04-22-2019 SHOULDER, CMPLT, MIN 2 VIEWS Patient Name: CECELIA QUIROZ STUDY: HUMERUS, MIN 2 VIEWS; SHOULDER, CMPLT, MIN 2 VIEWS; 04/22/2019 7:46 pm INDICATION: Left shoulder and humerus pain after fall, trauma. COMPARISON: None. ACCESSION NUMBER(S): [id number]; [id number] ORDERING CLINICIAN: ALTHEA STOUT TECHNIQUE: There are 2 studies in this report. Three views of the left humerus and three views of the left shoulder are reviewed. FINDINGS: There is a comminuted fracture of the left humeral head involving humeral head, greater tuberosity and proximal humeral shaft. Glenohumeral alignment appears maintained. The distal left humerus is intact. Soft tissues appear unremarkable. IMPRESSION: Comminuted left humeral head fracture. Electronically signed by: DO Osman NICHOLE [facility] Triage - EDon 04-22-2019 Triage - ED Chart Review: CHIEF COMPLAINT CECELIA QUIROZ is a Female patient with a chief complaint of shoulder pain/injury. Triage Date/Time: 22-Apr-2019 18:04 Pain Rating (0-10): 8 = Severe Pain location: lt shoulder Vital Signs: Temperature: 97.3F ( 36.3C) taken forehead Blood Pressure: 141/70 Mean: Heart Rate: 65 Respiratory Rate: 16 Pulse Oximetry: 96% on room air, no respiratory support. Height: 5 feet 6.00 inches. 167.6 CM Weight: 150.0 pounds. Calculated 68.0 kg. Calculated BMI (kg/m2): 24.208 Calculated BSA (m2) 1.78 Deanne Coma Scale: Best Eye Response: (E4) spontaneous Best Motor Response: (M6) obeys commands Best Verbal Response: (V5) oriented Deanne Score: 15 Allergies: no Patient has homicidal thoughts: no FREDDY: 4 Risk Screens Suicide Risk Screen In the Past Month: Have you wished you were or wished you could go to sleep and not wake up no In the Past Month: Have you had any actual thoughts of killing yourself no In Your Lifetime: Have you ever done anything, started to do anything, or prepared to do anything to end your life no Hodgson Fall Scale Screening Has the patient fallen before (or is the patient in the ED as a result of a fall) has not had a fall Does the patient have an impaired gait does not have impaired gait Is the patient cognitively impaired not cognitively impaired PAIN Pain Scale Used: HANS Pain Rating (0-10): 8 = Severe ARRIVAL INFORMATION Means of Arrival: stretcher Mode of Arrival: ambulance Agency: [facility] ([place]) Arrival From: home Accompanied By: self Language: Spoken Language Preferred: Kuwaiti Reading Language Preferred: Kuwaiti Past Medical History: Past Medical History Reviewedno Electronic Signatures: Katerine Deleon (REINALDO) (Signed 22-Apr-2019 18:05) Authored: Triage, Past Medical History Last Updated: 22-Apr-2019 18:05 by Katerine Deleon (REINALDO) Normal [facility] Vital Signs Date Time Vital Sign Value Performing Clinician Facility 06-18-2025 08:44-0400 Body temperature 97.5 [degF] Dr. Miah Cottrell DO Work Phone: [facility] 06-18-2025 08:44-0400 Diastolic blood pressure 54 mm[Hg] Dr. Miah Cottrell DO Work Phone: [facility] 06-18-2025 08:44-0400 Heart rate 54 /min Dr. Miah Cottrell DO Work Phone: 0(514)850-684755 [place] [address] 06-18-2025 08:44-0400 Respiratory rate 16 /min Dr. Miah Cottrell DO Work Phone: 1(610)668-47[address] [place] [address] 06-18-2025 08:44-0400 SaO2% (BldA) [Mass fraction] 99 % Dr. Miah Cottrell DO Work Phone: 1(127)853-467455 [place] [address] 06-18-2025 08:44-0400 Systolic blood pressure 135 mm[Hg] Dr. Miah Cottrell DO Work Phone: 8(480)730-810855 [place] [address] 06-18-2025 06:54-0400 Body height 160.[address] Miah Cottrell DO Work Phone: 2(071)696-414355 [place] [address] 06-18-2025 06:54-0400 Body mass index (BMI) [Ratio] 24.4 kg/m2 Dr. Miah Cottrell DO Work Phone: 0(892)074-439355 [place] [address] 06-18-2025 06:54-0400 Body weight 62.[address] Miah Cottrell DO Work Phone: 9(702)743-314255 [place] [address] 06-09-2025 13:55-0400 Body height 160.[address] Miah Cottrell DO Work Phone: 9(121)727-936655 [place] [address] 06-09-2025 13:55-0400 Body mass index (BMI) [Ratio] 24.6 kg/m2 Dr. Miah Cottrell DO Work Phone: 2(140)143-940355 [place] [address] 06-09-2025 13:55-0400 Body weight 63.[address] Miah Cottrell DO Work Phone: 4(247)464-152855 [place] [address] 06-09-2025 13:55-0400 Diastolic blood pressure 69 mm[Hg] Dr. Miah Cottrell DO Work Phone: 3(467)771-511355 [place] [address] 06-09-2025 13:55-0400 Heart rate 82 /min Dr. Miah Cottrell DO Work Phone: 0(578)634-888955 [place] [address] 06-09-2025 13:55-0400 Systolic blood pressure 137 mm[Hg] Dr. Miah Cottrell DO Work Phone: [facility] 05-26-2025 11:49-0400 Body height 160.[address] Miah Cottrell DO Work Phone: [facility] 05-26-2025 11:49-0400 Body mass index (BMI) [Ratio] 24.6 kg/m2 Dr. Miah Cottrell DO Work Phone: [facility] 05-26-2025 11:49-0400 Body weight 63.[address] Miah Cottrell DO Work Phone: [facility] 05-26-2025 11:49-0400 Diastolic blood pressure 70 mm[Hg] Dr. Miah Cottrell DO Work Phone: [facility] 05-26-2025 11:49-0400 Heart rate 63 /min Dr. Miah Cottrell DO Work Phone: [facility] 05-26-2025 11:49-0400 Systolic blood pressure 131 mm[Hg] Dr. Miah Cottrell DO Work Phone: [facility] 2025 12:48-0400 Body mass index (BMI) [Ratio] 23.45 kg/m2 Marko Wood MD Work Phone: [facility] 2025 12:48-0400 Body weight 63.3 kg Marko Wood MD Work Phone: [facility] 2025 12:48-0400 Diastolic blood pressure 74 mm[Hg] Marko Wood MD Work Phone: [facility] 2025 12:48-0400 Heart rate 83 /min Marko Wood MD Work Phone: [facility] 2025 12:48-0400 SaO2% (BldA) [Mass fraction] 96 % Marko Wood MD Work Phone: [facility] 2025 12:48-0400 Systolic blood pressure 130 mm[Hg] Marko Wood MD Work Phone: [facility] 03-17-2025 10:42-0400 Body mass index (BMI) [Ratio] 22.78 kg/m2 Miah Cottrell DO Work Phone: [facility] 03-17-2025 10:42-0400 Body temperature 96.6 [degF] Miah Cottrell DO Work Phone: [facility] 03-17-2025 10:42-0400 Body weight 63.05 kg Miah Cottrell DO Work Phone: [facility] 03-17-2025 10:42-0400 Diastolic blood pressure 60 mm[Hg] Miah Cottrell DO Work Phone: [facility] 03-17-2025 10:42-0400 Heart rate 60 /min Miah Cottrell DO Work Phone: [facility] 03-17-2025 10:42-0400 Respiratory rate 20 /min Miah Cottrell DO Work Phone: [facility] 03-17-2025 10:42-0400 Systolic blood pressure 120 mm[Hg] Miah Cottrell DO Work Phone: [facility] 02-13-2025 12:48-0400 Body mass index (BMI) [Ratio] 22.76 kg/m2 Dorothy Pisano ROLLER INSPECTOR AND MENDER.SHINGLE INSPECTOR Work Phone: [facility] 02-13-2025 12:48-0400 Body weight 63 kg Dorothy Pisano ROLLER INSPECTOR AND MENDER.SHINGLE INSPECTOR Work Phone: [facility] 02-13-2025 12:48-0400 Heart rate 77 /min Dorothy Pisano ROLLER INSPECTOR AND MENDER.SHINGLE INSPECTOR Work Phone: [facility] 02-13-2025 12:48-0400 SaO2% (BldA) [Mass fraction] 96 % Dorothy Pisano ROLLER INSPECTOR AND MENDER.SHINGLE INSPECTOR Work Phone: [facility] 02-06-2025 15:02-0400 Body height 166.4 cm Palma Lovett APRN.SHINGLE INSPECTOR Work Phone: [facility] 02-06-2025 15:02-0400 Body mass index (BMI) [Ratio] 22.62 kg/m2 Palma Lovett ROLLER INSPECTOR AND MENDER.SHINGLE INSPECTOR Work Phone: [facility] 02-06-2025 15:02-0400 Body temperature 97.39 [degF] Palma Lovett ROLLER INSPECTOR AND MENDER.SHINGLE INSPECTOR Work Phone: [facility] 02-06-2025 15:02-0400 Body weight 62.6 kg Palma Lovett ROLLER INSPECTOR AND MENDER.SHINGLE INSPECTOR Work Phone: [facility] 02-06-2025 15:02-0400 Diastolic blood pressure 67 mm[Hg] Palma Lovett ROLLER INSPECTOR AND MENDER.SHINGLE INSPECTOR Work Phone: [facility] 02-06-2025 15:02-0400 Heart rate 59 /min Palma Lovett ROLLER INSPECTOR AND MENDER.SHINGLE INSPECTOR Work Phone: [facility] 02-06-2025 15:02-0400 Systolic blood pressure 119 mm[Hg] Palma Lovett ROLLER INSPECTOR AND MENDER.SHINGLE INSPECTOR Work Phone: [facility] 11-21-2024 12:19-0400 Body mass index (BMI) [Ratio] 22.78 kg/m2 Wily Abarca ROLLER INSPECTOR AND MENDER.SHINGLE INSPECTOR Work Phone: [facility] 11-21-2024 12:19-0400 Body temperature 97 [degF] Wily Zieglerman ROLLER INSPECTOR AND MENDER.SHINGLE INSPECTOR Work Phone: [facility] 11-21-2024 12:19-0400 Body weight 63.05 kg Wily Zieglerman ROLLER INSPECTOR AND MENDER.SHINGLE INSPECTOR Work Phone: [facility] 11-21-2024 12:19-0400 Diastolic blood pressure 70 mm[Hg] Wily Tevin ROLLER INSPECTOR AND MENDER.SHINGLE INSPECTOR Work Phone: [facility] 11-21-2024 12:19-0400 Heart rate 64 /min Wily lAamoutzman ROLLER INSPECTOR AND MENDER.SHINGLE INSPECTOR Work Phone: [facility] 11-21-2024 12:19-0400 Respiratory rate 20 /min Wily Tevin ROLLER INSPECTOR AND MENDER.SHINGLE INSPECTOR Work Phone: [facility] 11-21-2024 12:19-0400 Systolic blood pressure 120 mm[Hg] Wily Tevin ROLLER INSPECTOR AND MENDER.SHINGLE INSPECTOR Work Phone: [facility] 05-23-2024 13:20-0400 Body mass index (BMI) [Ratio] 23.93 kg/m2 Wily Tevin ROLLER INSPECTOR AND MENDER.SHINGLE INSPECTOR Work Phone: [facility] 05-23-2024 13:20-0400 Body weight 66.22 kg Wily Tevin ROLLER INSPECTOR AND MENDER.SHINGLE INSPECTOR Work Phone: [facility] 05-23-2024 13:20-0400 Diastolic blood pressure 62 mm[Hg] Wily Tevin ROLLER INSPECTOR AND MENDER.SHINGLE INSPECTOR Work Phone: [facility] 05-23-2024 13:20-0400 Heart rate 61 /min Wily Tevin ROLLER INSPECTOR AND MENDER.SHINGLE INSPECTOR Work Phone: [facility] 05-23-2024 13:20-0400 Respiratory rate 16 /min Wily Tevin ROLLER INSPECTOR AND MENDER.SHINGLE INSPECTOR Work Phone: [facility] 05-23-2024 13:20-0400 SaO2% (BldA) [Mass fraction] 100 % Wily Tevin ROLLER INSPECTOR AND MENDER.SHINGLE INSPECTOR Work Phone: [facility] 05-23-2024 13:20-0400 Systolic blood pressure 114 mm[Hg] Wily Tevin ROLLER INSPECTOR AND MENDER.SHINGLE INSPECTOR Work Phone: [facility] 2024 15:47-0400 Body mass index (BMI) [Ratio] 23.95 kg/m2 Marko Wood MD Work Phone: [facility] 2024 15:47-0400 Body weight 66.3 kg aMrko Wood MD Work Phone: [facility] 2024 15:47-0400 Diastolic blood pressure 68 mm[Hg] Marko Wood MD Work Phone: [facility] 2024 15:47-0400 Heart rate 62 /min Marko Wood MD Work Phone: [facility] 2024 15:47-0400 SaO2% (BldA) [Mass fraction] 99 % Marko Wood MD Work Phone: [facility] 2024 15:47-0400 Systolic blood pressure 111 mm[Hg] Marko Wood MD Work Phone: [facility] 03-31-2024 12:05-0400 Body mass index (BMI) [Ratio] 23.95 kg/m2 Ady Mackenzie MD Work Phone: [facility] 03-31-2024 12:05-0400 Body temperature 98.29 [degF] Ady Mackenzie MD Work Phone: [facility] 03-31-2024 12:05-0400 Body weight 66.3 kg Ady Mackenzie MD Work Phone: [facility] 03-31-2024 12:05-0400 Diastolic blood pressure 70 mm[Hg] Ady Mackenzie MD Work Phone: [facility] 03-31-2024 12:05-0400 Heart rate 87 /min Ady Mackenzie MD Work Phone: [facility] 03-31-2024 12:05-0400 Respiratory rate 20 /min Ady Mackenzie MD Work Phone: [facility] 03-31-2024 12:05-0400 SaO2% (BldA) [Mass fraction] 98 % Ady Mackenzie MD Work Phone: [facility] 03-31-2024 12:05-0400 Systolic blood pressure 142 mm[Hg] Ady Mackenzie MD Work Phone: [facility] 03-26-2024 13:08-0400 Body mass index (BMI) [Ratio] 24.17 kg/m2 Carly Ramirez APRN.CNP Work Phone: [facility] 03-26-2024 13:08-0400 Body temperature 97 [degF] Carly Podlogar ROLLER INSPECTOR AND MENDER.SHINGLE INSPECTOR Work Phone: [facility] 03-26-2024 13:08-0400 Body weight 66.9 kg Carly Podlogar ROLLER INSPECTOR AND MENDER.SHINGLE INSPECTOR Work Phone: [facility] 03-26-2024 13:08-0400 Diastolic blood pressure 74 mm[Hg] Carly Podlogar ROLLER INSPECTOR AND MENDER.SHINGLE INSPECTOR Work Phone: [facility] 03-26-2024 13:08-0400 Heart rate 72 /min Carly Podlogar ROLLER INSPECTOR AND MENDER.SHINGLE INSPECTOR Work Phone: [facility] 03-26-2024 13:08-0400 Respiratory rate 20 /min Carly Podlogar ROLLER INSPECTOR AND MENDER.SHINGLE INSPECTOR Work Phone: [facility] 03-26-2024 13:08-0400 Systolic blood pressure 116 mm[Hg] Carly Podlogar ROLLER INSPECTOR AND MENDER.SHINGLE INSPECTOR Work Phone: [facility] 02-18-2024 10:26-0400 Body mass index (BMI) [Ratio] 24.65 kg/m2 Ronna Quiroz ROLLER INSPECTOR AND MENDER.SHINGLE INSPECTOR Work Phone: [facility] 02-18-2024 10:26-0400 Body weight 68.22 kg Ronna Quiroz ROLLER INSPECTOR AND MENDER.SHINGLE INSPECTOR Work Phone: [facility] 02-18-2024 10:26-0400 Diastolic blood pressure 62 mm[Hg] Ronna Quiroz ROLLER INSPECTOR AND MENDER.SHINGLE INSPECTOR Work Phone: [facility] 02-18-2024 10:26-0400 Heart rate 61 /min Ronna Quiroz ROLLER INSPECTOR AND MENDER.SHINGLE INSPECTOR Work Phone: [facility] 02-18-2024 10:26-0400 Respiratory rate 12 /min Ronna Quiroz ROLLER INSPECTOR AND MENDER.SHINGLE INSPECTOR Work Phone: [facility] 02-18-2024 10:26-0400 SaO2% (BldA) [Mass fraction] 99 % Ronna Quiroz ROLLER INSPECTOR AND MENDER.SHINGLE INSPECTOR Work Phone: [facility] 02-18-2024 10:26-0400 Systolic blood pressure 124 mm[Hg] Ronna Quiroz SHINGLE INSPECTOR Work Phone: [facility] 02-07-2024 13:07-0400 Body mass index (BMI) [Ratio] 24.75 kg/m2 Anca Rodriguez MD Work Phone: [facility] 02-07-2024 13:07-0400 Body weight 68.49 kg Anca Rodriguez MD Work Phone: [facility] 02-07-2024 13:07-0400 Diastolic blood pressure 72 mm[Hg] Anca Rodriguez MD Work Phone: [facility] 02-07-2024 13:07-0400 Systolic blood pressure 124 mm[Hg] Anca Rodriguez MD Work Phone: [facility] 01-28-2024 12:50-0400 Body height 166.4 cm Magdalene Bradford MD Work Phone: [facility] 01-28-2024 12:50-0400 Body mass index (BMI) [Ratio] 24.57 kg/m2 Magdalene Bradford MD Work Phone: [facility] 01-28-2024 12:50-0400 Body temperature 97.9 [degF] Magdalene Bradford MD Work Phone: [facility] 01-28-2024 12:50-0400 Body weight 68 kg Magdalene Bradford MD Work Phone: [facility] 01-28-2024 12:50-0400 Diastolic blood pressure 70 mm[Hg] Magdalene Bradford MD Work Phone: [facility] 01-28-2024 12:50-0400 Heart rate 80 /min Magdalene Bradford MD Work Phone: [facility] 01-28-2024 12:50-0400 Systolic blood pressure 112 mm[Hg] Magdalene Bradford MD Work Phone: [facility] 01-28-2024 10:50-0400 Diastolic blood pressure 80 mm[Hg] Ronna Quiroz ROLLER INSPECTOR AND MENDER.SHINGLE INSPECTOR Work Phone: [facility] 01-28-2024 10:50-0400 Systolic blood pressure 142 mm[Hg] Ronna Quiroz ROLLER INSPECTOR AND MENDER.SHINGLE INSPECTOR Work Phone: [facility] 01-28-2024 10:21-0400 Body mass index (BMI) [Ratio] 24.84 kg/m2 Ronna Quiroz ROLLER INSPECTOR AND MENDER.SHINGLE INSPECTOR Work Phone: [facility] 01-28-2024 10:21-0400 Body weight 68.77 kg Ronna Quiroz ROLLER INSPECTOR AND MENDER.SHINGLE INSPECTOR Work Phone: [facility] 01-28-2024 10:21-0400 Heart rate 68 /min Ronna Quiroz ROLLER INSPECTOR AND MENDER.SHINGLE INSPECTOR Work Phone: [facility] 01-28-2024 10:21-0400 Respiratory rate 16 /min Ronna Quiroz ROLLER INSPECTOR AND MENDER.SHINGLE INSPECTOR Work Phone: [facility] 01-09-2024 09:07-0400 Body mass index (BMI) [Ratio] 24.94 kg/m2 Ronna Quiroz ROLLER INSPECTOR AND MENDER.SHINGLE INSPECTOR Work Phone: [facility] 01-09-2024 09:07-0400 Body weight 69.04 kg Ronna Quiroz ROLLER INSPECTOR AND MENDER.SHINGLE INSPECTOR Work Phone: [facility] 01-09-2024 09:07-0400 Diastolic blood pressure 82 mm[Hg] Ronna Quiroz ROLLER INSPECTOR AND MENDER.SHINGLE INSPECTOR Work Phone: [facility] 01-09-2024 09:07-0400 Heart rate 72 /min Ronna Quiroz ROLLER INSPECTOR AND MENDER.SHINGLE INSPECTOR Work Phone: [facility] 01-09-2024 09:07-0400 Respiratory rate 14 /min Ronna Quiroz ROLLER INSPECTOR AND MENDER.SHINGLE INSPECTOR Work Phone: [facility] 01-09-2024 09:07-0400 Systolic blood pressure 142 mm[Hg] Ronna Quiroz ROLLER INSPECTOR AND MENDER.SHINGLE INSPECTOR Work Phone: [facility] 12-17-2023 12:45-0400 Body mass index (BMI) [Ratio] 24.58 kg/m2 Miah Cottrell DO Work Phone: [facility] 12-17-2023 12:45-0400 Body temperature 97 [degF] Miah Cottrell DO Work Phone: [facility] 12-17-2023 12:45-0400 Body weight 68.04 kg Miah Cottrell DO Work Phone: [facility] 12-17-2023 12:45-0400 Diastolic blood pressure 60 mm[Hg] Miah Cottrell DO Work Phone: [facility] 12-17-2023 12:45-0400 Heart rate 60 /min Miah Cottrell DO Work Phone: [facility] 12-17-2023 12:45-0400 Respiratory rate 16 /min Miah Cottrell DO Work Phone: [facility] 12-17-2023 12:45-0400 Systolic blood pressure 122 mm[Hg] Miah Cottrell DO Work Phone: [facility] 10-05-2023 15:10-0500 Diastolic blood pressure 75 mm[Hg] Palma Lovett ROLLER INSPECTOR AND MENDER.SHINGLE INSPECTOR Work Phone: [facility] 10-05-2023 15:10-0500 Heart rate 60 /min Palma Lovett ROLLER INSPECTOR AND MENDER.SHINGLE INSPECTOR Work Phone: [facility] 10-05-2023 15:10-0500 Systolic blood pressure 161 mm[Hg] Palma Lovett ROLLER INSPECTOR AND MENDER.SHINGLE INSPECTOR Work Phone: [facility] 10-05-2023 15:08-0500 Body height 166.4 cm Palma Lovett ROLLER INSPECTOR AND MENDER.SHINGLE INSPECTOR Work Phone: [facility] 10-05-2023 15:08-0500 Body temperature 97.3 [degF] Palma Lovett ROLLER INSPECTOR AND MENDER.SHINGLE INSPECTOR Work Phone: [facility] 10-05-2023 15:08-0500 Body weight 68.49 kg Palma Lovett ROLLER INSPECTOR AND MENDER.SHINGLE INSPECTOR Work Phone: [facility] 07-23-2023 10:26-0500 Body temperature 98.2 [degF] Nurse Stro Work Phone: [facility] 07-23-2023 10:26-0500 Diastolic blood pressure 57 mm[Hg] Nurse Stro Work Phone: [facility] 07-23-2023 10:26-0500 Heart rate 66 /min Nurse Stro Work Phone: [facility] 07-23-2023 10:26-0500 Systolic blood pressure 120 mm[Hg] Nurse Stro Work Phone: [facility] 06-15-2023 12:45-0400 Body temperature 97.3 [degF] Miah Cottrell DO Work Phone: [facility] 06-15-2023 12:45-0400 Body weight 67.59 kg Miah Cottrell DO Work Phone: [facility] 06-15-2023 12:45-0400 Diastolic blood pressure 60 mm[Hg] Miah Cottrell DO Work Phone: [facility] 06-15-2023 12:45-0400 Heart rate 76 /min Miah Cottrell DO Work Phone: [facility] 06-15-2023 12:45-0400 Respiratory rate 16 /min Miah Cottrell DO Work Phone: [facility] 06-15-2023 12:45-0400 Systolic blood pressure 120 mm[Hg] Miah Cottrell DO Work Phone: [facility] 05-07-2023 14:47-0400 Body temperature 97.2 [degF] Will Ruiz MD Work Phone: [facility] 05-07-2023 14:47-0400 Diastolic blood pressure 72 mm[Hg] Will Ruiz MD Work Phone: [facility] 05-07-2023 14:47-0400 Heart rate 107 /min Will Ruiz MD Work Phone: [facility] 05-07-2023 14:47-0400 SaO2% (BldA) [Mass fraction] 97 % Will Ruiz MD Work Phone: [facility] 05-07-2023 14:47-0400 Systolic blood pressure 128 mm[Hg] Will Ruiz MD Work Phone: [facility] 04-19-2023 10:49-0400 Body height 166.4 cm Marko Wood MD Work Phone: [facility] 04-19-2023 10:49-0400 Body weight 66.86 kg Marko Wood MD Work Phone: [facility] 04-19-2023 10:49-0400 Diastolic blood pressure 76 mm[Hg] Marko Wood MD Work Phone: [facility] 04-19-2023 10:49-0400 Heart rate 77 /min Marko Wood MD Work Phone: [facility] 04-19-2023 10:49-0400 SaO2% (BldA) [Mass fraction] 98 % Marko Wood MD Work Phone: [facility] 04-19-2023 10:49-0400 Systolic blood pressure 129 mm[Hg] Marko Wood MD Work Phone: [facility] 01-19-2023 14:45-0400 Body height 166.4 cm Janie Shilpa PA-C Work Phone: [facility] 01-19-2023 14:45-0400 Body temperature 98.6 [degF] Janie Shilpa PA-C Work Phone: [facility] 01-19-2023 14:45-0400 Body weight 64.86 kg Janie Shilpa PA-C Work Phone: [facility] 01-19-2023 14:45-0400 Diastolic blood pressure 57 mm[Hg] Janie Shilpa PA-C Work Phone: [facility] 01-19-2023 14:45-0400 Respiratory rate 16 /min Janie Shilpa PA-C Work Phone: [facility] 01-19-2023 14:45-0400 SaO2% (BldA) [Mass fraction] 97 % Janie Shilpa PA-C Work Phone: [facility] 01-19-2023 14:45-0400 Systolic blood pressure 127 mm[Hg] Janie Shilpa PA-C Work Phone: [facility] 07-31-2022 10:43-0500 Body temperature 97.5 [degF] Injection Stro Work Phone: [facility] 07-31-2022 10:43-0500 Body weight 61.19 kg Injection Stro Work Phone: [facility] 07-31-2022 10:43-0500 Diastolic blood pressure 57 mm[Hg] Injection Stro Work Phone: [facility] 07-31-2022 10:43-0500 Heart rate 82 /min Injection Stro Work Phone: [facility] 07-31-2022 10:43-0500 Respiratory rate 18 /min Injection Stro Work Phone: [facility] 07-31-2022 10:43-0500 SaO2% (BldA) [Mass fraction] 82 % Injection Stro Work Phone: [facility] 07-31-2022 10:43-0500 Systolic blood pressure 115 mm[Hg] Injection Stro Work Phone: [facility] 07-24-2022 13:07-0500 Body height 166.4 cm Magdalene Bradford MD Work Phone: [facility] 07-24-2022 13:07-0500 Body temperature 97.7 [degF] Magdalene Bradford MD Work Phone: [facility] 07-24-2022 13:07-0500 Body weight 61.24 kg Magdalene Bradford MD Work Phone: [facility] 07-24-2022 13:07-0500 Diastolic blood pressure 68 mm[Hg] Magdalene Bradford MD Work Phone: [facility] 07-24-2022 13:07-0500 Heart rate 75 /min Magdalene Bradford MD Work Phone: [facility] 07-24-2022 13:07-0500 Systolic blood pressure 125 mm[Hg] Magdalene Bradford MD Work Phone: [facility] 07-07-2022 09:42-0500 Body temperature 97.7 [degF] Wily Tevin ROLLER INSPECTOR AND MENDER.SHINGLE INSPECTOR Work Phone: [facility] 07-07-2022 09:42-0500 Body weight 61.42 kg Wily Tevin ROLLER INSPECTOR AND MENDER.SHINGLE INSPECTOR Work Phone: [facility] 07-07-2022 09:42-0500 Diastolic blood pressure 64 mm[Hg] Wily Tevin ROLLER INSPECTOR AND MENDER.SHINGLE INSPECTOR Work Phone: [facility] 07-07-2022 09:42-0500 Heart rate 77 /min Wily Tevin ROLLER INSPECTOR AND MENDER.SHINGLE INSPECTOR Work Phone: [facility] 07-07-2022 09:42-0500 Respiratory rate 16 /min Wily Tevin ROLLER INSPECTOR AND MENDER.SHINGLE INSPECTOR Work Phone: [facility] 07-07-2022 09:42-0500 SaO2% (BldA) [Mass fraction] 96 % Wily Tevin ROLLER INSPECTOR AND MENDER.SHINGLE INSPECTOR Work Phone: [facility] 07-07-2022 09:42-0500 Systolic blood pressure 116 mm[Hg] Wily Tevin ROLLER INSPECTOR AND MENDER.SHINGLE INSPECTOR Work Phone: [facility] 07-03-2022 09:11-0500 Body weight 61.51 kg Wily Tevin ROLLER INSPECTOR AND MENDER.SHINGLE INSPECTOR Work Phone: [facility] 07-03-2022 09:11-0500 Diastolic blood pressure 64 mm[Hg] Wily Tevin ROLLER INSPECTOR AND MENDER.SHINGLE INSPECTOR Work Phone: [facility] 07-03-2022 09:11-0500 Heart rate 91 /min Wily Tevin ROLLER INSPECTOR AND MENDER.SHINGLE INSPECTOR Work Phone: [facility] 07-03-2022 09:11-0500 Respiratory rate 16 /min Wily Tevin ROLLER INSPECTOR AND MENDER.SHINGLE INSPECTOR Work Phone: [facility] 07-03-2022 09:11-0500 SaO2% (BldA) [Mass fraction] 99 % Wily Tevin ROLLER INSPECTOR AND MENDER.SHINGLE INSPECTOR Work Phone: [facility] 07-03-2022 09:11-0500 Systolic blood pressure 110 mm[Hg] Wily Tevin ROLLER INSPECTOR AND MENDER.SHINGLE INSPECTOR Work Phone: [facility] 06-25-2022 13:30-0500 Body temperature 97.81 [degF] Jeremy Noel ROLLER INSPECTOR AND MENDER.SHINGLE INSPECTOR Work Phone: [facility] 06-25-2022 13:30-0500 Body weight 60.78 kg Jeremy Noel ROLLER INSPECTOR AND MENDER.SHINGLE INSPECTOR Work Phone: [facility] 06-25-2022 13:30-0500 Diastolic blood pressure 70 mm[Hg] Jeremy Noel ROLLER INSPECTOR AND MENDER.SHINGLE INSPECTOR Work Phone: [facility] 06-25-2022 13:30-0500 Heart rate 71 /min Jeremy Noel ROLLER INSPECTOR AND MENDER.SHINGLE INSPECTOR Work Phone: [facility] 06-25-2022 13:30-0500 Respiratory rate 16 /min Jeremy Noel ROLLER INSPECTOR AND MENDER.SHINGLE INSPECTOR Work Phone: [facility] 06-25-2022 13:30-0500 SaO2% (BldA) [Mass fraction] 98 % Jeremy Noel ROLLER INSPECTOR AND MENDER.SHINGLE INSPECTOR Work Phone: [facility] 06-25-2022 13:30-0500 Systolic blood pressure 122 mm[Hg] Jeremy Noel ROLLER INSPECTOR AND MENDER.SHINGLE INSPECTOR Work Phone: [facility] 05-02-2022 10:35-0400 Body height 166.4 cm Marko Wood MD Work Phone: [facility] 05-02-2022 10:35-0400 Body weight 59.78 kg Marko Wood MD Work Phone: [facility] 05-02-2022 10:35-0400 Diastolic blood pressure 58 mm[Hg] Marko Wood MD Work Phone: [facility] 05-02-2022 10:35-0400 Heart rate 66 /min Marko Wood MD Work Phone: [facility] 05-02-2022 10:35-0400 SaO2% (BldA) [Mass fraction] 99 % Marko Wood MD Work Phone: [facility] 05-02-2022 10:35-0400 Systolic blood pressure 131 mm[Hg] Marko Wood MD Work Phone: [facility] 03-23-2022 12:30-0400 SaO2% (BldA) [Mass fraction] 96 % Artur Pennington MD Work Phone: [facility] 03-23-2022 12:12-0400 Respiratory rate 18 /min Artur Pennington MD Work Phone: [facility] 03-23-2022 11:45-0400 Diastolic blood pressure 74 mm[Hg] Artur Pennington MD Work Phone: [facility] 03-23-2022 11:45-0400 Heart rate 66 /min Artur Pennington MD Work Phone: [facility] 03-23-2022 11:45-0400 Systolic blood pressure 126 mm[Hg] Artur Pennington MD Work Phone: [facility] 03-23-2022 11:34-0400 Body temperature 97 [degF] Artur Pennington MD Work Phone: [facility] 03-23-2022 07:14-0400 Body height 166.4 cm Artur Pennington MD Work Phone: [facility] 03-23-2022 07:14-0400 Body mass index (BMI) [Ratio] 20.98 kg/m2 Artur Pennington MD Work Phone: [facility] 03-23-2022 07:14-0400 Body weight 58.06 kg Artur Pennington MD Work Phone: [facility] 03-17-2022 10:15-0400 Body height 166.4 cm Palma Lovett ROLLER INSPECTOR AND MENDER.SHINGLE INSPECTOR Work Phone: [facility] 03-17-2022 10:15-0400 Body temperature 97.3 [degF] Palma Lovett ROLLER INSPECTOR AND MENDER.SHINGLE INSPECTOR Work Phone: [facility] 03-17-2022 10:15-0400 Body weight 58.06 kg Palma Lovett ROLLER INSPECTOR AND MENDER.SHINGLE INSPECTOR Work Phone: [facility] 03-17-2022 10:15-0400 Diastolic blood pressure 68 mm[Hg] Palma Lovett ROLLER INSPECTOR AND MENDER.SHINGLE INSPECTOR Work Phone: [facility] 03-17-2022 10:15-0400 Heart rate 61 /min Palma Lovett ROLLER INSPECTOR AND MENDER.SHINGLE INSPECTOR Work Phone: [facility] 03-17-2022 10:15-0400 Systolic blood pressure 109 mm[Hg] Palma Lovett ROLLER INSPECTOR AND MENDER.SHINGLE INSPECTOR Work Phone: [facility] 03-16-2022 13:37-0400 Body temperature 98.8 [degF] Artur Pennington MD Work Phone: [facility] 03-16-2022 13:37-0400 Diastolic blood pressure 57 mm[Hg] Artur Pennington MD Work Phone: [facility] 03-16-2022 13:37-0400 Heart rate 67 /min Artur Pennington MD Work Phone: [facility] 03-16-2022 13:37-0400 Respiratory rate 16 /min Artur Pennington MD Work Phone: [facility] 03-16-2022 13:37-0400 SaO2% (BldA) [Mass fraction] 97 % Artur Pennington MD Work Phone: [facility] 03-16-2022 13:37-0400 Systolic blood pressure 127 mm[Hg] Artur Pennington MD Work Phone: [facility] 03-16-2022 13:37-0400 Body height 166.4 cm Artur Pennington MD Work Phone: [facility] 03-16-2022 13:37-0400 Body mass index (BMI) [Ratio] 21.49 kg/m2 Artur Pennington MD Work Phone: [facility] 03-16-2022 13:37-0400 Body weight 59.48 kg Artur Pennington MD Work Phone: [facility] 12-16-2021 10:24-0400 Body height 166.4 cm Palma Lovett ROLLER INSPECTOR AND MENDER.SHINGLE INSPECTOR Work Phone: [facility] 12-16-2021 10:24-0400 Body temperature 97.11 [degF] Palma Lovett ROLLER INSPECTOR AND MENDER.SHINGLE INSPECTOR Work Phone: [facility] 12-16-2021 10:24-0400 Body weight 58.06 kg Palma Lovett ROLLER INSPECTOR AND MENDER.SHINGLE INSPECTOR Work Phone: [facility] 12-16-2021 10:24-0400 Diastolic blood pressure 62 mm[Hg] Palma Lovett ROLLER INSPECTOR AND MENDER.SHINGLE INSPECTOR Work Phone: [facility] 12-16-2021 10:24-0400 Heart rate 94 /min Palma Lovett ROLLER INSPECTOR AND MENDER.SHINGLE INSPECTOR Work Phone: [facility] 12-16-2021 10:24-0400 Systolic blood pressure 112 mm[Hg] Palma Lovett ROLLER INSPECTOR AND MENDER.SHINGLE INSPECTOR Work Phone: [facility] Encounters Encounter Date Encounter Type Care Provider Facility Start: 06-26-2025 End: 06-26-2025 ambulatory Miah Cottrell Facility:[facility] Start: 06-26-2025 Encounter for other preprocedural examination [facility] Start: 06-18-2025 ambulatory [facility] Facility: [facility] Start: 06-18-2025 End: 06-18-2025 ambulatory [facility] Facility:[facility] Start: 06-11-2025 End: 06-11-[address] Madeline Obrien MD -[facility] Work Phone: Start: 06-11-2025 End: 06-11-2025 ambulatory Miah Cottrell Facility:[facility] Start: 06-09-2025 End: 06-09-[address] Madeline Obrien MD -[facility] Work Phone: Start: 06-09-2025 End: 06-09-[address] Miah Cottrell DO Work Phone: -[facility] Start: 06-01-2025 End: 06-01-[address] Madeline Obrien MD -[facility] Work Phone: Start: 06-01-2025 End: 06-01-2025 ambulatory Madeline Obrien Facility:[facility] Start: 05-26-2025 End: 05-26-[address] Miah Cottrell DO Work Phone: -Laboratory Specimen Start: 05-26-2025 End: 05-26-[address] Madeline Obrien MD -Laboratory Specimen Work Phone: Start: 05-26-2025 End: 05-26-[address] Madeline Obrien MD -[facility] Work Phone: Start: 05-26-2025 End: 05-26-[address] Miah Cottrell DO Work Phone: -[facility] Start: 05-26-2025 End: 05-26-2025 ambulatory Madeline Obrien Facility:[facility] Start: 05-15-2025 ambulatory MIAH De La Cruz ity:[facility] Start: 2025 End: 2025 Office outpatient visit 15 minutes Marko Wood MD Work Phone: Neurology 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: Essential tremor; Cervicalgia Start: 2025 End: 2025 ambulatory MIAH COTTRELL Facility:[facility] Start: 03-24-2025 End: 03-24-2025 ambulatory MIAH COTTRELL Facility:[facility] Start: 03-24-2025 Encounter for gynecological examination (general) (routine) without abnormal findings ISABELA MURPHY [facility] Start: 03-17-2025 End: 03-17-2025 Patient encounter procedure Miah Cottrell DO Work Phone: [facility] [place] 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: Essential hypertensi on (Primary Dx); 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); Tobacco abuse; Fatigue, unspecified type; Vitamin B12 deficiency; Chronic neck pain; Osteoarthritis of spine with radiculopathy, cervical region; DDD (degenerative disc disease), cervical Start: 03-17-2025 End: 03-17-2025 ambulatory MIAH COTTRELL Facility:[facility] Start: 03-11-2025 End: 03-12-2025 ambulatory Palma Lovett APRN.CNP Work Phone: Rheumatology 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: [employer] Start: 02-19-2025 End: 02-19-2025 Telephone encounter Palma Lovett APRN.IRINEO Work Phone: Rheumatology 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: 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 Start: 02-18-2025 End: 02-18-2025 Follow-up encounter Dorothy Pisano APRN.IRINEO Work Phone: Pain Management Start: 02-18-2025 End: 02-19-2025 Telephone encounter Lewis Taylor MD Work Phone: Pain Management 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: Results (Cervical MR I) Start: 02-17-2025 End: 02-17-2025 E-mail encounter from caregiver King Razo [facility] Start: 02-17-2025 End: 02-17-2025 ambulatory King Razo [facility] 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: [employer] coverage has been approved but copay is high Start: 02-17-2025 End: 02-17-2025 Subsequent hospital visit by physician Mri Radio [facility] (I-Stat/1.5t) Work Phone: Radiology Comment on above: Spinal stenosis of c ervical region [M48.02] Start: 02-16-2025 End: 02-16-2025 Refill Miah Allison Cottrell DO Work Phone: [facility] [place] Comment on above: Refill Request Start: 02-13-2025 End: 02-13-2025 Patient encounter procedure Dorothy Pisano APRN.CNP Work Phone: Pain Management Comment on above: Spinal stenosis of c ervical region (Primary Dx); Neck pain; Myalgia Start: 02-13-2025 End: 02-13-2025 ambulatory MIAH COTTRELL Facility:[facility] Start: 02-11-2025 End: 02-11-2025 ambulatory King Razo [facility] Start: 02-11-2025 End: 02-11-2025 Patient encounter procedure King Razo [facility] Comment on above: SPP Inflammatory Con ditions - Treatment Referral (Isra); Insurance Authorization ([place] submission pending) Start: 02-10-2025 End: 02-10-2025 E-mail encounter from caregiver [facility] Start: 02-10-2025 End: 02-10-2025 Patient encounter procedure [facility] Comment on above: Instructions & Requi rements for Your Upcoming Appointment Start: 02-09-2025 End: 02-09-2025 ambulatory Palma Lovett APRN.CNP Work Phone: Rheumatology Comment on above: Injections Start: 02-09-2025 End: 04-11-2025 Follow-up encounter Palma Lovett APRN.CNP Work Phone: Rheumatology Start: 02-06-2025 End: 02-06-2025 ambulatory MIAH COTTRELL Facility:[facility] Start: 02-06-2025 End: 02-06-2025 Subsequent hospital visit by physician Yennifer [facility] Lisa Work Phone: Radiology Comment on above: Neck pain [M54.2] Start: 02-06-2025 End: 02-06-2025 Patient encounter procedure Palma Lovett APRN.SHINGLE INSPECTOR Work Phone: Rheumatology Comment on above: PMR (polymyalgia rhe umatica) (HCC) (Primary Dx); 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); Osteoporosis, postmenopausal; PUD (peptic ulcer disease); Encounter for long-term (current) use of medications; Neck pain Start: 02-06-2025 End: 02-06-2025 ambulatory MIAH L COTTRELL Facility:[facility] Start: 01-21-2025 End: 03-23-2025 Follow-up encounter Magdalene Bradford MD Work Phone: Rheumatology Start: 01-20-2025 End: 01-20-2025 ambulatory MIAH L COTTRELL Facility:[facility] Start: 01-20-2025 End: 01-20-2025 Telephone encounter Magdalene Bradford MD Work Phone: Rheumatology Start: 12-28-2024 End: 02-27-2025 Follow-up encounter Magdalene Bradford MD Work Phone: Rheumatology Start: 12-27-2024 End: 12-27-2024 ambulatory MIAH L COTTRELL Facility:[facility] Start: 11-21-2024 End: 11-21-2024 ambulatory MIAH L COTTRELL Facility:[facility] Start: 11-21-2024 End: 11-21-2024 Office outpatient visit 40 minutes Wily Abarca APRN.SHINGLE INSPECTOR Work Phone: [facility] Comment on above: Essential hypertensi on (Primary Dx); 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); Dupuytren's contracture of right hand; Chronic midline low back pain without sciatica; Right wrist pain; Tobacco abuse; Osteoporosis, postmenopausal Start: 11-20-2024 End: 01-20-2025 Follow-up encounter Wily Abarca APRN.CNP Work Phone: [facility] Start: 11-19-2024 End: 11-19-2024 ambulatory MIAH L COTTRELL Facility:[facility] Start: 11-19-2024 End: 11-19-2024 Subsequent hospital visit by physician Screen Mammo [facility] M[facility] Comment on above: Encounter for screen ing mammogram for breast cancer [Z12.31] Start: 11-10-2024 End: 11-10-2024 Refill Miah L Cottrell DO Work Phone: [facility] [place] Comment on above: Refill Request Start: 09-22-2024 End: 09-22-2024 Refill Magdalene Bradford MD Work Phone: [facility] [place] Comment on above: Refill Request; Medi cation Request Start: 08-14-2024 End: 08-15-2024 Refill Miah L Cottrell DO Work Phone: [facility] [place] Comment on above: Refill Request Start: 08-05-2024 End: 08-05-2024 ambulatory MIAH L COTTRELL Facility:[facility] Start: 08-05-2024 End: 08-05-2024 Nursing evaluation of patient and report Nurse Lauren [facility] [place] Work Phone: Rheumatology Comment on above: Postmenopausal osteo porosis (Primary Dx) Start: 08-04-2024 End: 08-04-2024 Telephone encounter Magdalene Bradford MD Work Phone: Rheumatology Start: 07-28-2024 End: 07-28-2024 Refill Magdalene Bradford MD Work Phone: Rheumatology Comment on above: Refill Request Start: 07-09-2024 End: 07-11-2024 ambulatory [facility] Comment on above: A Message from [facility] Start: 07-09-2024 End: 07-11-2024 E-mail encounter from caregiver [facility] Start: 06-23-2024 End: 06-23-2024 ambulatory MIAH L COTTRELL Facility:[facility] Start: 05-23-2024 End: 05-23-2024 ambulatory MIAH L COTTRELL Facility:[facility] Start: 05-23-2024 End: 05-23-2024 Office outpatient visit 40 minutes Wily Abarca APRN.CNP Work Phone: [facility] [place] Comment on above: Essential hypertensi on (Primary Dx); Ganglion cyst; Hornet sting, accidental or unintentional, initial encounter; Diarrhea due to malabsorption Start: 05-23-2024 End: 05-23-2024 ambulatory MIAH COTTRELL Facility:[facility] Start: 05-13-2024 End: 05-13-2024 Refill Miah Cottrell DO Work Phone: [facility] [place] Comment on above: Refill Request Start: 2024 End: 2024 Office outpatient visit 15 minutes Marko Wood MD Work Phone: Neurology Comment on above: Essential tremor Start: 04-01-2024 ambulatory Magdalene Bradford MD Work Phone: Rheumatology Comment on above: Medicine Start: 03-31-2024 End: 03-31-2024 Patient encounter procedure Ady Mackenzie MD Work Phone: [facility] Comment on above: Allergic contact leann matitis, unspecified trigger (Primary Dx) Start: 03-26-2024 End: 03-26-2024 Patient encounter procedure Carly Ramirez APRN.SHINGLE INSPECTOR Work Phone: [facility] Comment on above: Rash (Primary Dx) Start: 03-18-2024 End: 03-18-2024 ambulatory Magdalene Bradford MD Work Phone: Rheumatology Comment on above: PMR (polymyalgia rhe umatica) (HCC) (Primary Dx); manager 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; Encounter for long-term (current) use of medications; 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); Osteoporosis, postmenopausal; PUD (peptic ulcer disease) Start: 03-18-2024 End: 03-18-2024 Telemedicine consultation with patient Magdalene Bradford MD Work Phone: Rheumatology Start: 02-28-2024 Telephone encounter Magdalene Nair MD Work Phone: [facility] [place] Comment on above: Medication Problem Order for BP monitor Start: 02-18-2024 End: 02-18-2024 Patient encounter procedure Ronna Quiroz ROLLER INSPECTOR AND MENDER.SHINGLE INSPECTOR Work Phone: [facility] [place] Comment on above: Essential hypertensi on Start: 02-07-2024 End: 02-07-2024 Office outpatient visit 15 minutes Anca Rodriguez MD Work Phone: OB/Gynecology Comment on above: Yeast dermatitis (Pr imary Dx) Start: 02-05-2024 Telephone encounter Magdalene Nair MD Work Phone: Rheumatology Comment on above: Medication Problem Start: 01-28-2024 End: 01-28-2024 Patient encounter procedure Magdalene Bradford MD Work Phone: Rheumatology Comment on above: PMR (polymyalgia rhe umatica) (HCC) (Primary Dx); Osteoporosis, postmenopausal; Encounter for long-term (current) use of medications; manager 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 Essential hypertensi on (Primary Dx); Carotid atherosclerosis, bilateral Start: 01-11-2024 Telephone encounter Miah esqueda DO Work Phone: [facility] [place] Comment on above: Results Start: 01-09-2024 End: 01-09-2024 Patient encounter procedure Ronna Quiroz APRN.CNP Work Phone: [facility] [place] Comment on above: Essential hypertensi on (Primary Dx) Start: 01-08-2024 End: 01-08-2024 Subsequent hospital visit by physician Priti [facility] (I-Stat) Work Phone: Cat Scan Comment on above: Nodule of lower lobe of left lung [R91.1] Start: 01-08-2024 Telephone encounter Miah esqueda DO Work Phone: [facility] [place] Comment on above: Results Start: 12-17-2023 End: 12-17-2023 Patient encounter procedure Miah Cottrell DO Work Phone: [facility] [place] Comment on above: Nodule of lower lobe of left lung (Primary Dx); Carotid atherosclerosis, bilateral; Dupuytren's contracture of right hand; Hyperlipidemia, mixed; Fatigue, unspecified type; Thyroid nodule; Iron deficiency; Hyperglycemia; Vitamin B12 deficiency; Essential hypertension; 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); Osteoporosis, postmenopausal; Tobacco use; Vitamin D deficiency Start: 12-01-2023 Refill Palma Lovett APRN.SHINGLE INSPECTOR Work Phone: Rheumatology Comment on above: Refill Request Start: 10-31-2023 Telephone encounter Miah esqueda DO Work Phone: [facility] Comment on above: Results Start: 10-25-2023 End: 10-25-2023 ambulatory [facility] Work Phone: Start: 10-25-2023 End: 10-25-2023 Patient encounter procedure [facility]-Cat Scan, [facility] Work Phone: Start: 10-10-2023 Documentation procedure Mammog yuliana Coordinator [facility] Start: 10-10-2023 Letter encounter Mammography Coordinator [facility] Department Start: 10-10-2023 Telephone encounter Ronna ferrari ROLLER INSPECTOR AND MENDER.SHINGLE INSPECTOR Work Phone: [facility] Start: 10-08-2023 End: 10-08-2023 Subsequent hospital visit by physician Screen Mammo [facility] Mammogram Comment on above: Screening mammogram for breast cancer [Z12.31] Start: 10-05-2023 End: 10-05-2023 Patient encounter procedure Palma Lovett APRN.SHINGLE INSPECTOR Work Phone: Rheumatology Comment on above: PMR (polymyalgia rhe umatica) (HCC) (Primary Dx); 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); Osteoporosis, postmenopausal; Encounter for long-term (current) use of medications Start: 07-23-2023 End: 07-23-2023 [facility] evaluation of [facility] and [facility] Work Phone: Rheumatology Comment on above: Osteoporosis, postme nopausal (Primary Dx) Start: 07-16-2023 Telephone encounter Palma lewis APRN.SHINGLE INSPECTOR Work Phone: Rheumatology 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 on 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: 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 Start: 06-15-2023 End: 06-15-2023 Patient encounter procedure Miah Cottrell DO Work Phone: [facility] Comment on above: Essential hypertensi on (Primary Dx); Need for influenza vaccination; Multiple thyroid nodules; Vitamin B12 deficiency; Hyperlipidemia, mixed; 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); Osteoporosis, postmenopausal; Fatigue, unspecified type; Tobacco use; Chronic neck pain Start: 05-07-2023 End: 05-07-2023 Patient encounter procedure Will Ruiz MD Work Phone: General Surgery Comment on above: Multinodular goiter (Primary Dx) Start: 05-04-2023 Telephone encounter Will vilchis MD Work Phone: General Surgery Comment on above: Results (Thyroid FNA ) Start: 04-30-2023 End: 04-30-2023 ambulatory [facility] Work Phone: Start: 04-30-2023 End: 04-30-2023 Patient encounter procedure [facility]-Laboratory, Specimen Work Phone: Start: 04-30-2023 End: 04-30-2023 Patient encounter procedure Will Ruiz MD Work Phone: General Surgery Comment on above: Multinodular goiter (Primary Dx) Start: 04-19-2023 End: 04-19-2023 Office outpatient visit 15 minutes Marko Wood MD Work Phone: Neurology Comment on above: Essential tremor Start: 04-12-2023 Telephone encounter Miah esqueda DO Work Phone: [facility] Comment on above: Results; Appointment Start: 03-29-2023 Refill Miah ferrari DO Work Phone: [facility] Comment on above: Refill Request Start: 03-14-2023 Telephone encounter Miah esqueda DO Work Phone: [facility] Comment on above: Results Start: 03-12-2023 End: 03-12-2023 Subsequent hospital visit by physician [facility] Mob 1 Work Phone: Radiology Comment on above: Thyroid nodule [E04. 1] Start: 03-05-2023 Telephone encounter Janie elam PA-C Work Phone: Rheumatology Comment on above: Results Start: 03-02-2023 Telephone encounter Janie Carter sser PA-C Work Phone: [facility] [place] Comment on above: Patient Question Start: 02-26-2023 End: 02-26-2023 Subsequent hospital visit by physician Bone Density [facility] Work Phone: Radiology Comment on above: Osteoporosis, postme nopausal [M81.0] Start: 02-07-2023 Get Medical Advice Palma Lovett ROLLER INSPECTOR AND MENDER.SHINGLE INSPECTOR Work Phone: Rheumatology Comment on above: refill Start: 02-05-2023 Telephone encounter Janie Carter marialuisa PA-C Work Phone: [facility] [place] Comment on above: Appointment Start: 01-24-2023 ambulatory Palma Lovett ROLLER INSPECTOR AND MENDER.SHINGLE INSPECTOR Work Phone: Rheumatology Comment on above: Test Results Start: 01-19-2023 End: 01-20-2023 ambulatory MIAH COTTRELL Facility:[facility] Start: 01-19-2023 End: 01-19-2023 Patient encounter procedure Janie Massey PA-C Work Phone: Rheumatology Comment on above: PMR (polymyalgia rhe umatica) (HCC) (Primary Dx); 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); Osteoporosis, postmenopausal; Encounter for long-term (current) use of medications; assisted 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 Start: 12-21-2022 Telephone encounter Magdalene Nair MD Work Phone: Rheumatology Comment on above: Medication Request Refill Request Start: 11-21-2022 ambulatory Chelsea Bedoya MA [facility] [place] Comment on above: Population Health [facility] (HCC GAP) Start: 11-01-2022 ambulatory Miah Norman guillaume DO Work Phone: [facility] [place] Comment on above: Test Result Question Start: 11-01-2022 End: 11-01-2022 Subsequent hospital visit by physician Diagnostic Mammo [facility] Mammogram Start: 10-03-2022 Telephone encounter Shante Vanessa MD Work Phone: Mammography Comment on above: Mammogram Result Toribio l Back Start: 10-02-2022 Documentation procedure Mammog yuliana Coordinator [facility] Start: 10-02-2022 Letter encounter Mammography Coordinator [facility] Department Start: 10-02-2022 End: 10-02-2022 Subsequent hospital visit by physician Screen Mammo [facility] Mammogram Start: 07-31-2022 End: 07-31-[address] [facility] Work Phone: Hematology/Oncology Comment on above: Osteoporosis, postme nopausal (Primary Dx) Start: 07-24-2022 End: 07-24-2022 Patient encounter procedure Magdalene Bradford MD Work Phone: Rheumatology Comment on above: PMR (polymyalgia rhe umatica) (HCC) (Primary Dx); 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); Osteoporosis, postmenopausal; Encounter for long-term (current) use of medications Start: 07-07-2022 End: 07-07-2022 Patient encounter procedure Wily Abarca APRN.SHINGLE INSPECTOR Work Phone: [facility] [place] Comment on above: Pain of left lower e xtremity (Primary Dx); Hematoma of left lower leg; Wound of left lower extremity, subsequent encounter; Injury of left lower extremity, subsequent encounter Start: 07-03-2022 End: 07-03-2022 Subsequent hospital visit by physician Yennifer [facility] [place] Work Phone: Radiology Comment on above: Injury of left lower extremity, subsequent encounter [S89.92XD] Start: 07-03-2022 End: 07-03-2022 Patient encounter procedure Wily Abarca APRN.SHINGLE INSPECTOR Work Phone: [facility] [place] Comment on above: Injury of left lower extremity, subsequent encounter (Primary Dx); Wound of left lower extremity, subsequent encounter; Pain of left lower extremity; Hematoma of left lower leg Start: 06-25-2022 End: 06-25-2022 Patient encounter procedure Jeremy Cohen APRN.SHINGLE INSPECTOR Work Phone: [facility] Comment on above: Skin infection (Prim marely Dx); Need for tetanus booster Start: 05-22-2022 End: 05-22-2022 Subsequent hospital visit by physician Yennifer [facility] Work Phone: Radiology Comment on above: PMR (polymyalgia rhe umatica) ([facility]) [M35.3] Start: 05-22-2022 End: 05-22-2022 ambulatory Treatment Rm [address] [facility] Work Phone: Hematology/Oncology Comment on above: Encounter for inject ion education (Primary Dx) Start: 05-17-2022 ambulatory Palma Lovett ROLLER INSPECTOR AND MENDER.SHINGLE INSPECTOR Work Phone: Rheumatology Comment on above: Injections Start: 05-08-2022 ambulatory Palma Lovett ROLLER INSPECTOR AND MENDER.SHINGLE INSPECTOR Work Phone: Rheumatology Comment on above: Lab Start: 05-05-2022 ambulatory Palma Lovett ROLLER INSPECTOR AND MENDER.SHINGLE INSPECTOR Work Phone: Rheumatology Comment on above: Pain Start: 05-02-2022 End: 05-02-2022 Patient encounter procedure Marko Wood MD Work Phone: Neurology Comment on above: Essential tremor (Pr imary Dx) Start: 04-18-2022 ambulatory Palma Lovett APRN.SHINGLE INSPECTOR Work Phone: Rheumatology Comment on above: prednisone Start: 04-04-2022 ambulatory Palma Lovett APRN.SHINGLE INSPECTOR Work Phone: Rheumatology Comment on above: Prednisone & Prolia Start: 03-27-2022 End: 03-27-2022 Patient encounter procedure [facility]-Cat Scan, [facility] Start: 03-23-2022 End: 03-23-2022 Subsequent hospital visit by physician Artur Pennington MD Work Phone: [facility] Surgery Comment on above: Traumatic arthritis of right ankle (Primary Dx) Start: 03-21-2022 Telephone encounter Palma lewis APRN.SHINGLE INSPECTOR Work Phone: Rheumatology Comment on above: Results Start: 03-17-2022 End: 03-17-2022 Patient encounter procedure Palma Lovett APRN.SHINGLE INSPECTOR Work Phone: Rheumatology Comment on above: PMR (polymyalgia rhe umatica) (HCC) (Primary Dx); 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); Osteoporosis, postmenopausal; Encounter for long-term (current) use of medications Start: 03-16-2022 End: 03-16-2022 Subsequent hospital visit by physician Artur Pennington MD Work Phone: [facility] Pre-Admit Testing Comment on above: Arrived Start: 03-06-2022 Refill Palma Lovett APRN.SHINGLE INSPECTOR Work Phone: Rheumatology Comment on above: Refill Request Start: 02-06-2022 ambulatory PALMA LOVETT Facility: [facility] Start: 02-02-2022 Refill Miah ferrari DO Work Phone: [facility] [place] Comment on above: Refill Request Start: 01-03-2022 Telephone encounter Miah esqueda DO Work Phone: [facility] [place] Comment on above: Results Start: 01-02-2022 End: 01-02-2022 Subsequent hospital visit by physician Priti [facility] ([facility]) Work Phone: Cat Scan Comment on above: New daily persistent headache [G44.52] Start: 12-30-2021 End: 12-30-2021 Subsequent hospital visit by physician Marielos BRAY Work Phone: [facility] Radiology Comment on above: Right ankle pain, un specified chronicity Start: 12-26-2021 Telephone encounter Miah esqueda DO Work Phone: [facility] [place] Comment on above: Medication Question Start: 12-19-2021 Telephone encounter Palma lewis APRN.SHINGLE INSPECTOR Work Phone: Rheumatology Comment on above: Other Start: 12-16-2021 End: 12-16-2021 Patient encounter procedure Palma Lovett APRN.SHINGLE INSPECTOR Work Phone: Rheumatology Comment on above: PMR (polymyalgia rhe umatica) (HCC) (Primary Dx); 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); Osteoporosis, postmenopausal; Encounter for long-term (current) use of medications; Neck pain Neck pain (Primary D x) Start: 12-16-2021 End: 12-16-2021 Subsequent hospital visit by physician Yennifer [facility] Work Phone: Radiology Comment on above: Neck pain [M54.2] Start: 10-31-2019 End: 10-31-2019 Subsequent hospital visit by physician [facility] Comment on above: Right ankle pain, un specified chronicity; History of ankle fusion; Traumatic arthritis of right ankle Start: 02-12-2009 End: 11-27-2011 Patient encounter status Miah Cottrell DO Work Phone: [facility] Start: 10-29-2007 End: 10-19-2011 Patient encounter status Miah Cottrell DO Work Phone: [facility] Work Phone: Procedures Date Procedure Procedure Detail Performing Clinician Start: 06-01-2025 Computed tomography of abdomen and pelvis with contrast Dr. Miah Cottrell DO Work Phone: Start: 02-17-2025 Mri spinal canal cervical w/o contrast naga Pisano APRN.CNP Work Phone: Start: 12-17-2023 Lipid 1996 panel - Serum or Plasma Miah Cottrell DO Work Phone: Start: 10-25-2023 Computed tomography of abdomen and pelvis with contrast Start: 06-15-2023 INFLUENZA VACCINE, PRSV FREE, AGE 65+ YR, HIGH DOSE, QUADRIVALENT (FLUZONE HIGH-DOSE) Miah Cottrell DO Work Phone: Start: 04-30-2023 US THYROID BIOPSY RIGHT (POC) SURG USE ONLY Will Ruiz MD Work Phone: Start: 03-12-2023 Us soft tissue head & neck real time imge docm Miah Cottrell DO Work Phone: Start: 02-26-2023 Dxa bone density study 1/> sites axial skel Janie Shilpa PA-C Work Phone: Start: 01-19-2023 H/O: hysterectomy History of hysterectomy Janie Massey P A-C Work Phone: Start: 01-19-2023 History of appendectomy History of appendectomy Janie French er PA-C Work Phone: Start: 11-01-2022 Us breast uni real time with image limited Kymberly Shelley MD Work Phone: Start: 11-01-2022 Digital breast tomosynthesis unilateral Kymberly Shelley MD Work Phone: Start: 10-02-2022 End: 10-02-2022 Mammography Kymberly Shelley MD Work Phone: Start: 07-03-2022 Radiologic examination tibia & fibula 2 views Wily Abarca ROLLER INSPECTOR AND MENDER.SHINGLE INSPECTOR Work Phone: Start: 05-22-2022 Radiologic exam chest 2 views Palma Lovett APRN.SHINGLE INSPECTOR Work Phone: Start: 04-28-2022 Adult depression screening assessment Marko Wood MD Work Phone: Start: 03-27-2022 Computed tomography of abdomen and pelvis with contrast Start: 03-23-2022 OPERATIVE REPORT Physician Generic Start: 03-16-2022 Basic metabolic panel calcium total Mann Spear MD Work Phone: Start: 03-16-2022 Ecg routine ecg w/least 12 lds w/i&r Mann Spear MD Work Phone: Start: 01-02-2022 Ct angiography head w/contrast/noncontrast Miah Cottrell DO Work Phone: Start: 12-16-2021 Radex spine cervical 4 or 5 views Palma Lovett APRN.SHINGLE INSPECTOR Work Phone: Start: 09-26-2021 Mammography Palma Lovett ROLLER INSPECTOR AND MENDER.SHINGLE INSPECTOR Work Phone: Start: 05-09-2021 Colonoscopy Palma Lovett ROLLER INSPECTOR AND MENDER.SHINGLE INSPECTOR Work Phone: Start: 04-27-2021 Adult depression screening assessment Palma Lovett ROLLER INSPECTOR AND MENDER.SHINGLE INSPECTOR Work Phone: Start: 10-31-2019 Radex ankle complete minimum 3 views Artur Chandler Nona Work Phone: Start: 08-15-2019 Lipid 1996 panel - Serum or Plasma Will Ruiz MD Work Phone: H/O: hysterectomy History of par tial hysterectomy History of appendectomy History of append ectomy Plan of Treatment Date Care Activity Detail Author Start: 06-25-2032 Urine microalbumin profile [facility] Start: 05-09-2031 Colonoscopy COLONOSCOPY [facility] Start: 05-09-2031 COLORECTAL CANCER SCREENING COLORECTAL CANCER SCREENING [facility] Start: 05-09-2031 Screening for malignant neoplasm of colon [facility] Start: 12-16-2028 Lipid panel Lipid Screening [facility] Start: 12-16-2026 Diabetes Screening Diabetes Screening [facility] Start: 10-21-2026 Diabetes Screening Diabetes Screening [facility] Start: 03-17-2026 Annual PCP Team Chronic Disease Visit Annual PCP Team Chronic Disease Visit [facility] Start: 03-12-2026 DIABETES SCREEN DIABETES SCREEN [facility] Start: 03-12-2026 Diabetes Screening Diabetes Screening [facility] Start: 02-23-2026 End: 02-23-2026 Patient encounter procedure 02/23/2026 1:00 PM EDT Office Visit Rheumatology [address] [place] [address] Palma Lovett, ROLLER INSPECTOR AND MENDER.SHINGLE INSPECTOR [address] [place] [address] 6mo prolia Rheumatology Comment on above: 6mo prolia Start: 11-23-2025 End: 11-23-2025 Patient encounter procedure 11/23/2025 11:10 AM EDT Appointment Mammogram [address] [place], [place] [address] Encounter for gynecological examination (general) (routine) without abnormal findings [Z01.419]; Encounter for screening mammogram for breast cancer [Z12.31] Mammogram Comment on above: Encounter for gynecological examination (general) (routine) without abnormal findings [Z01.419]; Encounter for screening mammogram for breast cancer [Z12.31] Start: 11-21-2025 Annual PCP Team Chronic Disease Visit Annual PCP Team Chronic Disease Visit [facility] Start: 11-21-2025 BP Controlled (<130/80) BP Controlled (<130/80) [facility] Start: 11-21-2025 Covid-19 Vaccine () Covid-19 Vaccine () [facility] Comment on above: Postponed from 04/20/2024 (Declined at t his time) Start: 11-19-2025 Screening for malignant neoplasm of breast Mammogram Screening [facility] Start: 09-17-2025 End: 09-17-2025 Patient encounter procedure [facility] [place] Comment on above: 6 MTH FU Start: 08-26-2025 End: 08-26-2025 Patient encounter procedure 08/26/2025 1:00 PM EST Office Visit Rheumatology [address] [place] [address] Magdalene Bradford MD [address] [place] [address] Rheumatology Start: 08-03-2025 End: 08-03-2025 Patient encounter procedure Rheumatology Comment on above: prolia injection Start: 07-09-2025 End: 10-08-2025 25-hydroxyvitamin D3 [Mass/volume] in Serum or Plasma VITAMIN D 25 HYDROXY Lab Routine Osteoporosis, postmenopausal Encounter for long-term (current) use of medications Expected: 07/09/2025 (Approximate), Expires: 10/08/2025 [facility] Comment on above: Expected: 07/09/2025 (Approximate), Expi res: 10/08/2025 Start: 07-09-2025 End: 02-05-2026 Alanine aminotransferase [Enzymatic activity/volume] in Serum or Plasma ALANINE AMINOTRANSFERASE / SGPT Lab Routine PMR (polymyalgia rheumatica) (HCC) Encounter for long-term (current) use of medications Expected: 07/09/2025 (Approximate), Expires: 02/05/2026 [facility] Comment on above: Expected: 07/09/2025 (Approximate), Expi res: 02/05/2026 Start: 07-09-2025 End: 02-05-2026 Aspartate aminotransferase [Enzymatic activity/volume] in Serum or Plasma ASPARTATE AMINOTRANSFERASE/SGOT Lab Routine PMR (polymyalgia rheumatica) ([facility]) Encounter for long-term (current) use of medications Expected: 07/09/2025 (Approximate), Expires: 02/05/2026 [facility] Comment on above: Expected: 07/09/2025 (Approximate), Expi res: 02/05/2026 Start: 07-09-2025 End: 02-05-2026 C reactive protein [Mass/volume] in Serum or Plasma C-REACTIVE PROTEIN Lab Routine PMR (polymyalgia rheumatica) ([facility]) Encounter for long-term (current) use of medications Expected: 07/09/2025 (Approximate), Expires: 02/05/2026 [facility] Comment on above: Expected: 07/09/2025 (Approximate), Expi res: 02/05/2026 Start: 07-09-2025 End: 10-08-2025 Calcium [Mass/volume] in Serum or Plasma CALCIUM, TOTAL Lab Routine Osteoporosis, postmenopausal Encounter for long-term (current) use of medications Expected: 07/09/2025 (Approximate), Expires: 10/08/2025 [facility] Comment on above: Expected: 07/09/2025 (Approximate), Expi res: 10/08/2025 Start: 07-09-2025 End: 02-05-2026 CBC W Auto Differential panel - Blood COMPLETE BLOOD COUNT AND DIFFERENTIAL Lab Routine PMR (polymyalgia rheumatica) ([facility]) Encounter for long-term (current) use of medications Expected: 07/09/2025 (Approximate), Expires: 02/05/2026 [facility] Work Phone: Comment on above: Expected: 07/09/2025 (Approximate), Expi res: 02/05/2026 Start: 07-09-2025 End: 02-05-2026 Creatinine and Glomerular filtration rate.predicted panel - Serum, Plasma or Blood CREATININE BLD Lab Routine PMR (polymyalgia rheumatica) ([facility]) Encounter for long-term (current) use of medications Expected: 07/09/2025 (Approximate), Expires: 02/05/2026 [facility] Comment on above: Expected: 07/09/2025 (Approximate), Expi res: 02/05/2026 Start: 07-09-2025 End: 02-05-2026 Erythrocyte sedimentation rate SEDIMENTATION RATE, WESTERGREN Lab Routine PMR (polymyalgia rheumatica) (HCC) Encounter for long-term (current) use of medications Expected: 07/09/2025 (Approximate), Expires: 02/05/2026 [facility] Comment on above: Expected: 07/09/2025 (Approximate), Expi res: 02/05/2026 Start: 07-09-2025 End: 07-09-2025 ambulatory 07/09/2025 11:00 AM EST Results Only [facility] [address] [place] [address] [facility] Start: 06-18-2025 Transurethral fulguration of bladder Cysto,Biopsy,Fulguration ,Bladder Tumor (Not Applicable) [facility] Start: 06-18-2025 Patient discharge [facility] Start: 06-18-2025 Non-patient / Non-visit Non-patient / Non-visit -[facility] Start: 06-18-2025 End: 06-18-2025 Admission to same day surgery center Departed [facility] -[facility] Start: 06-11-2025 End: 06-11-2025 Patient encounter procedure Departed Physician/Provider Office Visit -[facility] Work Phone: Start: 06-09-2025 End: 06-09-2025 Patient encounter procedure Gross hematuria -[facility] Work Phone: Start: 05-26-2025 US scan of bladder [facility] Start: 05-23-2025 Annual PCP Team Chronic Disease Visit Annual PCP Team Chronic Disease Visit [facility] Start: 05-23-2025 BP Controlled (<130/80) BP Controlled (<130/80) [facility] in Start: 05-15-2025 End: 05-15-2025 Patient encounter procedure 05/15/2025 1:40 PM EDT Appointment Radiology [address] [place] [id number] Osteoporosis, 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] Radiology Comment on above: Osteoporosis, 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] Start: 04-20-2025 Influenza vaccination [facility] Start: 2025 BP Controlled (<130/80) BP Controlled (<130/80) [facility] Start: 2025 RSV Vaccine (1 - 1-dose 75+ series) RSV Vaccine (1 - 1-dose 75+ series) [facility] Start: 2025 End: 2025 Patient encounter procedure 2025 1:00 PM EDT Office Visit Neurology [address] [id number] Marko Wood MD [address] [address] Essential tremor [G25.0] Neurology Comment on above: Essential tremor [G25.0] Start: 03-26-2025 Annual PCP Team Chronic Disease Visit Annual PCP Team Chronic Disease Visit [facility] Start: 03-26-2025 BP Controlled (<130/80) BP Controlled (<130/80) [facility] Start: 03-24-2025 End: 03-24-2025 Patient encounter procedure 03/24/2025 11:30 AM EDT Office Visit OB/Gynecology [address] [place] [address] Isabela Murphy APRN.SHINGLE INSPECTOR [address] [place] [address] annual OB/Gynecology Comment on above: annual Start: 03-17-2025 End: 03-17-2025 Patient encounter procedure 03/17/2025 11:00 AM EDT Office Visit [facility] [place] [address] [place] [address] Miah Cottrell DO [address] [place] [address] 3 month follow up Family [facility] Comment on above: 3 month follow up Start: 03-10-2025 End: 03-10-2025 Patient encounter procedure 03/10/2025 11:00 AM EDT Office Visit [facility] [place] [address] [place] [address] Miah Cottrell DO [address] [place] [address] 3 month follow up [facility] [place] Comment on above: 3 month follow up Start: 02-26-2025 Screening for osteoporosis Bone Density Screening [facility] Start: 02-17-2025 Annual PCP Team Chronic Disease Visit Annual PCP Team Chronic Disease Visit [facility] Start: 02-17-2025 BP Controlled (<130/80) BP Controlled (<130/80) [facility] Start: 02-17-2025 End: 02-17-2025 Patient encounter procedure 02/17/2025 2:00 PM EDT Appointment Radiology [address] [place] [id number] Spinal stenosis of cervical region [M48.02 Radiology Comment on above: Spinal stenosis of cervical region [M48. 02 Start: 02-16-2025 Influenza vaccination Influenza Vaccine (#1) [facility] Comment on above: Postponed from 04/20/2024 (Declined at t his time) Start: 02-13-2025 End: 02-13-2025 Patient encounter procedure 02/13/2025 1:00 PM EDT Office Visit Pain Management [address] [address] Dorothy Pisano, ROLLER INSPECTOR AND MENDER.SHINGLE INSPECTOR [address] [place] [address] Neck pain [M54.2] Pain Management Comment on above: Neck pain [M54.2] Start: 02-06-2025 End: 05-08-2025 BLOOD TB SCREEN [facility] Comment on above: Expected: 02/06/2025 (Approximate), Expi res: 05/08/2025 Start: 02-06-2025 BP Controlled (<130/80) BP Controlled (<130/80) [facility] Start: 02-06-2025 End: 05-08-2025 C reactive protein [Mass/volume] in Serum or Plasma [facility] Comment on above: Expected: 02/06/2025 (Approximate), Expi res: 05/08/2025 Start: 02-06-2025 End: 05-08-2025 Chronic hepatitis differentiation between hepatitis B and C virus panel - Serum or Plasma [facility] Comment on above: Expected: 02/06/2025 (Approximate), Expi res: 05/08/2025 Start: 02-06-2025 End: 05-08-2025 Erythrocyte sedimentation rate [facility] Comment on above: Expected: 02/06/2025 (Approximate), Expi res: 05/08/2025 Start: 02-06-2025 End: 02-06-2025 Nursing evaluation of patient and report 02/06/2025 1:00 PM EDT Nurse Visit Rheumatology [address] [place] [address] Stro, Nurse Gladysu [facility] [id number] [place] [address] [facility] Comment on above: [facility] Start: 01-27-2025 Annual PCP Team Chronic Disease Visit Annual PCP Team Chronic Disease Visit [facility] Start: 01-27-2025 BP Controlled (<130/80) BP Controlled (<130/80) [facility] in Start: 01-20-2025 End: 04-21-2025 25-hydroxyvitamin D3 [Mass/volume] in Serum or Plasma [facility] Comment on above: Expected: 01/20/2025, Expires: Start: 01-20-2025 End: 04-21-2025 Calcium [Mass/volume] in Serum or Plasma [facility] Work Phone: Comment on above: Expected: 01/20/2025, Expires: Start: 01-08-2025 Annual PCP Team Chronic Disease Visit Annual PCP Team Chronic Disease Visit [facility] Start: 01-08-2025 RSV Vaccine (1 - 1-dose 60+ series) RSV Vaccine (1 - 1-dose 60+ series) [facility] Comment on above: Postponed from 2010 (Declined at t his time) Start: 01-07-2025 Screening for malignant neoplasm of lung Lung Cancer Screening [facility] Start: 12-16-2024 Annual PCP Team Chronic Disease Visit Annual PCP Team Chronic Disease Visit [facility] Start: 12-16-2024 BP Controlled (<130/80) BP Controlled (<130/80) [facility] in Start: 11-21-2024 End: 11-21-2024 Patient encounter procedure 11/21/2024 12:40 PM EDT Office Visit Family Joon [facility] [address] [place], [place] [id number] Wily Abarca, ROLLER INSPECTOR AND MENDER.SHINGLE INSPECTOR [address] [place], [place] [address] 6 month follow up Family [facility]oon [facility] Comment on above: 6 month follow up Start: 10-08-2024 Screening for malignant neoplasm of breast Mammogram Screening [facility] Start: 08-20-2024 Advance Directive Discussion Advance Directive Discussion [facility] Start: 08-15-2024 Lipid 1996 panel - Serum or Plasma Lipid Screening [facility] Start: 08-15-2024 Lipid panel Lipid Screening [facility] Start: 08-15-2024 LIPID SCREEN LIPID SCREEN [facility] Start: 08-05-2024 End: 08-05-2024 Nursing evaluation of patient and report 08/05/2024 2:00 PM EST Nurse Visit Rheumatology [address] [place] [address] [place], Nurse Lauren [facility] [address] [place] [address] prolia injection Rheumatology Comment on above: prolia injection Start: 08-04-2024 End: 08-04-2024 Patient encounter procedure 08/04/2024 3:00 PM EST Office Visit Rheumatology [address] [place] [address] Palma Lovett, ROLLER INSPECTOR AND MENDER.SHINGLE INSPECTOR [address] [place] [address] prolia injection Rheumatology Comment on above: prolia injection Start: 07-23-2024 BP Controlled (<130/80) BP Controlled (<130/80) [facility] in[facility] Start: 06-20-2024 End: 01-27-2025 25-hydroxyvitamin D3 [Mass/volume] in Serum or Plasma VITAMIN D 25 HYDROXY Lab Routine Osteoporosis, postmenopausal Encounter for long-term (current) use of medications Expected: 06/20/2024, Expires: 01/27/2025 [facility] Work Phone: Comment on above: Expected: 06/20/2024, Expires: Start: 06-20-2024 End: 01-27-2025 Calcium [Mass/volume] in Serum or Plasma CALCIUM, TOTAL Lab Routine Osteoporosis, postmenopausal Encounter for long-term (current) use of medications Expected: 06/20/2024, Expires: 01/27/2025 [facility] Comment on above: Expected: 06/20/2024, Expires: Start: 06-20-2024 End: 01-27-2025 CREATININE BLD CREATININE BLD Lab Routine Osteoporosis, postmenopausal Encounter for long-term (current) use of medications Expected: 06/20/2024, Expires: 01/27/2025 [facility] Comment on above: Expected: 06/20/2024, Expires: Start: 06-20-2024 End: 06-20-2024 ambulatory 06/20/2024 9:00 AM EDT Results Only [facility] [address] [place] [address] [facility] Start: 06-15-2024 Annual PCP Team Chronic Disease Visit Annual PCP Team Chronic Disease Visit [facility] Start: 06-15-2024 BP Controlled (<130/80) BP Controlled (<130/80) [facility] in Start: 06-15-2024 Covid-19 Vaccine () Covid-19 Vaccine () [facility] Comment on above: Postponed from 04/20/2023 (Declined at t his time) Start: 05-23-2024 End: 05-23-2024 Patient encounter procedure [facility] [place] Comment on above: 6 month f/up Start: 05-07-2024 BP Controlled (<130/80) BP Controlled (<130/80) [facility] in Start: 04-20-2024 Covid-19 Vaccine ( season) Covid-19 Vaccine ( season) [facility] Start: 04-20-2024 Influenza vaccination Influenza Vaccine (#1) [facility] Start: 04-19-2024 BP CONTROLLED (<130/80) BP CONTROLLED (<130/80) [facility] in Start: 04-16-2024 BP CONTROLLED (<130/80) BP CONTROLLED (<130/80) [facility] Start: 2024 End: 2024 Patient encounter procedure 2024 4:00 PM EDT Office Visit Neurology [facility] [address] [id number] Marko Wood MD [address] [address] Essential tremor [G25.0] Neurology Comment on above: Essential tremor [G25.0] Start: 2024 DIABETES SCREEN DIABETES SCREEN [facility] Start: 03-18-2024 End: 03-18-2024 Follow-up encounter 03/18/2024 3:00 PM EDT [facility] Rheumatology [address] [place] [address] [place] [address] [place] [address] Follow up Rheumatology Comment on above: Follow up Start: 03-12-2024 ANNUAL PCP TEAM CHRONIC DISEASE VISIT ANNUAL PCP TEAM CHRONIC DISEASE VISIT [facility] Start: 03-12-2024 BP CONTROLLED (<130/80) BP CONTROLLED (<130/80) [facility] Start: 02-18-2024 End: 02-18-2024 Patient encounter procedure 02/18/2024 11:00 AM EDT Office Visit Family Medicine [place] [address] [place] [address] Ronna Quiroz APRN.SHINGLE INSPECTOR [address] [facility] [place] [facility] [place] [address] 3 week f/up b/p Family [facility] Comment on above: 3 week f/up b/p Start: 02-07-2024 End: 02-07-2024 Patient encounter procedure 02/07/2024 1:20 PM EDT Office Visit OB/Gynecology [address] [place] [address] Anca Rodriguez MD [address] [place] [address] possible yeast infection-former Dr. Rowan patient OB/Gynecology Comment on above: possible yeast infection-former Dr. Wanda chu patient Start: 01-28-2024 End: 01-28-2024 Patient encounter procedure Rheumatology Comment on above: 16 MONTH FOLLOW UP and PROLIA INJ 4 week b/p follow Start: 01-20-2024 BP CONTROLLED (<130/80) BP CONTROLLED (<130/80) [facility] in Start: 01-09-2024 End: 01-09-2024 Patient encounter procedure 01/09/2024 9:00 AM EDT Office Visit [facility] [address] [place] [address] Ronna Quiroz APRN.SHINGLE INSPECTOR [address] [place] [address] Blood Pressure Check; States BP has been elevated; 144-160/63-70 Family [facility] Comment on above: Blood Pressure Check; States BP has been elevated; 144-160/63-70 Start: 01-08-2024 End: 01-08-2024 Patient encounter procedure 01/08/2024 3:30 PM EDT Office Visit Vasculary Surgery [address] [place], [place] [id number] Carotid atherosclerosis, bilateral [I65.23 Vasculary Surgery Comment on above: Carotid atherosclerosis, bilateral [I65. 23 Start: 01-08-2024 End: 01-08-2024 Patient encounter procedure 01/08/2024 2:20 PM EDT Appointment Cat Scan [address] [place] [address] Nodule of lower lobe of left lung [R91.1] Cat Scan Comment on above: Nodule of lower lobe of left lung [R91.1 ] Start: 11-07-2023 End: 10-01-2024 25-hydroxyvitamin D3 [Mass/volume] in Serum or Plasma VITAMIN D 25 HYDROXY Lab Routine Osteoporosis, postmenopausal Expected: 11/07/2023 (Approximate), Expires: 10/01/2024 [facility] Work Phone: Comment on above: Expected: 11/07/2023 (Approximate), Expi res: 10/01/2024 Start: 11-07-2023 End: 02-06-2024 C reactive protein [Mass/volume] in Serum or Plasma C-REACTIVE PROTEIN (CRP) Lab Routine PMR (polymyalgia rheumatica) ([facility]) Expected: 11/07/2023 (Approximate), Expires: 02/06/2024 [facility] Work Phone: Comment on above: Expected: 11/07/2023 (Approximate), Expi res: 02/06/2024 Start: 11-07-2023 End: 10-01-2024 Calcium [Mass/volume] in Serum or Plasma CALCIUM TOTAL BLD Lab Routine Osteoporosis, postmenopausal Expected: 11/07/2023 (Approximate), Expires: 10/01/2024 [facility] Work Phone: Comment on above: Expected: 11/07/2023 (Approximate), Expi res: 10/01/2024 Start: 11-07-2023 End: 10-01-2024 CREATININE BLD CREATININE BLD Lab Routine Osteoporosis, postmenopausal Expected: 11/07/2023 (Approximate), Expires: 10/01/2024 [facility] Work Phone: Comment on above: Expected: 11/07/2023 (Approximate), Expi res: 10/01/2024 Start: 11-07-2023 End: 02-06-2024 Erythrocyte sedimentation rate SED RATE WESTERGREN Lab Routine PMR (polymyalgia rheumatica) ([facility]) Expected: 11/07/2023 (Approximate), Expires: 02/06/2024 [facility] Work Phone: Comment on above: Expected: 11/07/2023 (Approximate), Expi res: 02/06/2024 Start: 10-02-2023 Mammography [facility] Start: 10-02-2023 Screening for malignant neoplasm of breast Mammogram Screening [facility] Start: 08-20-2023 Advance Directive Discussion Advance Directive Discussion [facility] Start: 08-20-2023 Behavioral Health Screening Behavioral Health Screening [facility] Start: 08-20-2023 Depression Assessment Depression Assessment [facility] Start: 08-06-2023 End: 11-05-2023 Cobalamin (Vitamin B12) [Mass/volume] in Serum or Plasma VITAMIN B12 BLOOD Lab Routine Vitamin B12 deficiency Expected: 08/06/2023, Expires: 11/05/2023 [facility] Work Phone: Comment on above: Expected: 08/06/2023, Expires: Start: 08-06-2023 End: 11-05-2023 Comprehensive metabolic 2000 panel - Serum or Plasma COMP METABOLIC PANEL Lab Routine Multiple thyroid nodules Expected: 08/06/2023, Expires: 11/05/2023 [facility] Work Phone: Comment on above: Expected: 08/06/2023, Expires: 4 Start: 08-06-2023 End: 11-05-2023 Thyrotropin [Units/volume] in Serum or Plasma TSH BLD Lab Routine Multiple thyroid nodules Expected: 08/06/2023, Expires: 11/05/2023 [facility] Work Phone: Comment on above: Expected: 08/06/2023, Expires: 4 Start: 08-06-2023 End: 11-05-2023 Thyroxine (T4) free [Mass/volume] in Serum or Plasma T4 FREE/FREE THYROX Lab Routine Multiple thyroid nodules Expected: 08/06/2023, Expires: 11/05/2023 [facility] Work Phone: Comment on above: Expected: 08/06/2023, Expires: 4 Start: 07-24-2023 BP CONTROLLED (<130/80) BP CONTROLLED (<130/80) [facility] Start: 07-07-2023 ANNUAL PCP TEAM CHRONIC DISEASE VISIT ANNUAL PCP TEAM CHRONIC DISEASE VISIT [facility] Start: 07-07-2023 BP CONTROLLED (<130/80) BP CONTROLLED (<130/80) [facility] Start: 07-03-2023 ANNUAL PCP TEAM CHRONIC DISEASE VISIT ANNUAL PCP TEAM CHRONIC DISEASE VISIT [facility] Start: 07-03-2023 BP CONTROLLED (<130/80) BP CONTROLLED (<130/80) [facility] Start: 06-25-2023 BP CONTROLLED (<130/80) BP CONTROLLED (<130/80) [facility] Start: 04-28-2023 Adult depression screening assessment DEPRESSION SCREENING [facility] Start: 04-20-2023 Influenza vaccination [facility] Start: 03-17-2023 BP CONTROLLED (<130/80) BP CONTROLLED (<130/80) [facility] Start: 01-19-2023 End: 03-21-2023 25-hydroxyvitamin D3 [Mass/volume] in Serum or Plasma [facility] Work Phone: Comment on above: Expected: 01/19/2023, Expires: 3 Start: 12-26-2022 ANNUAL PCP TEAM CHRONIC DISEASE VISIT ANNUAL PCP TEAM CHRONIC DISEASE VISIT [facility] Start: 12-26-2022 BP CONTROLLED (<130/80) BP CONTROLLED (<130/80) [facility] Start: 12-16-2022 BP CONTROLLED (<130/80) BP CONTROLLED (<130/80) [facility] Start: 09-26-2022 Mammography MAMMOGRAM [facility] Start: 08-20-2022 ADVANCE DIRECTIVE DISCUSSION ADVANCE DIRECTIVE DISCUSSION [facility] Start: 08-20-2022 DEPRESSION ASSESSMENT DEPRESSION ASSESSMENT [facility] Start: 07-24-2022 End: 07-24-2023 25-hydroxyvitamin D3 [Mass/volume] in Serum or Plasma [facility] Work Phone: Comment on above: Expected: 07/24/2022, Expires: 3 Start: 07-24-2022 End: 07-24-2023 Calcium [Mass/volume] in Serum or Plasma [facility] Work Phone: Comment on above: Expected: 07/24/2022, Expires: Start: 04-27-2022 Adult depression screening assessment DEPRESSION SCREENING [facility] Start: 04-25-2022 End: 06-25-2022 C reactive protein [Mass/volume] in Serum or Plasma C-REACTIVE PROTEIN (CRP) Lab Routine PMR (polymyalgia rheumatica) (HCC) 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) Expected: 04/25/2022 (Approximate), Expires: 06/25/2022 [facility] Work Phone: Comment on above: Expected: 04/25/2022 (Approximate), Expi res: 06/25/2022 Start: 04-25-2022 End: 06-25-2022 Erythrocyte sedimentation rate SED RATE WESTERGREN Lab Routine PMR (polymyalgia rheumatica) (HCC) 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) Expected: 04/25/2022 (Approximate), Expires: 06/25/2022 [facility] Work Phone: Comment on above: Expected: 04/25/2022 (Approximate), Expi res: 06/25/2022 Start: 04-20-2022 Influenza vaccination [facility] Start: 04-19-2022 End: 04-19-2023 Alanine aminotransferase [Enzymatic activity/volume] in Serum or Plasma ALT/SGPT Lab Routine PMR (polymyalgia rheumatica) (HCC) 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) Expected: 04/19/2022 (Approximate), Expires: 04/19/2023 [facility] Work Phone: Comment on above: Expected: 04/19/2022 (Approximate), Expi res: 04/19/2023 Start: 04-19-2022 End: 04-19-2023 Albumin [Mass/volume] in Serum or Plasma ALBUMIN BLD Lab Routine PMR (polymyalgia rheumatica) (HCC) 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) Expected: 04/19/2022 (Approximate), Expires: 04/19/2023 [facility] Work Phone: Comment on above: Expected: 04/19/2022 (Approximate), Expi res: 04/19/2023 Start: 04-19-2022 End: 04-19-2023 Aspartate aminotransferase [Enzymatic activity/volume] in Serum or Plasma AST/SGOT BLD Lab Routine PMR (polymyalgia rheumatica) (HCC) 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) Expected: 04/19/2022 (Approximate), Expires: 04/19/2023 [facility] Work Phone: Comment on above: Expected: 04/19/2022 (Approximate), Expi res: 04/19/2023 Start: 04-19-2022 End: 06-19-2022 BLOOD TB SCREEN BLOOD TB SCREEN Lab Routine PMR (polymyalgia rheumatica) (HCC) 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) Expected: 04/19/2022 (Approximate), Expires: 06/19/2022 [facility] Work Phone: Comment on above: Expected: 04/19/2022 (Approximate), Expi res: 06/19/2022 Start: 04-19-2022 End: 04-19-2023 CBC W Auto Differential panel - Blood CBC + DIFF Lab Routine PMR (polymyalgia rheumatica) (HCC) 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) Expected: 04/19/2022 (Approximate), Expires: 04/19/2023 [facility] Work Phone: Comment on above: Expected: 04/19/2022 (Approximate), Expi res: 04/19/2023 Start: 04-19-2022 End: 06-19-2022 Chronic hepatitis differentiation between hepatitis B and C virus panel - Serum or Plasma HEP REMOTE PANEL BL Lab Routine PMR (polymyalgia rheumatica) (HCC) 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) Expected: 04/19/2022 (Approximate), Expires: 06/19/2022 [facility] Work Phone: Comment on above: Expected: 04/19/2022 (Approximate), Expi res: 06/19/2022 Start: 04-19-2022 End: 04-19-2023 CREATININE BLD CREATININE BLD Lab Routine PMR (polymyalgia rheumatica) (HCC) 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) Expected: 04/19/2022 (Approximate), Expires: 04/19/2023 [facility] Work Phone: Comment on above: Expected: 04/19/2022 (Approximate), Expi res: 04/19/2023 Start: 04-18-2022 FECAL OCCULT BLOOD FECAL OCCULT BLOOD [facility] Start: 04-18-2022 Screening for malignant neoplasm of colon Fecal Occult Blood [facility] Start: 04-07-2022 End: 04-07-2022 Patient encounter procedure 04/07/2022 Office Visit Orthopedic Surgery Artur Pennington MD [address] [facility] [address] [place], [place] [id number] [facility] [place] Start: 03-23-2022 End: 03-23-2022 Patient encounter procedure 03/23/2022 Appointment General Surgery Artur Pennington MD [address] [place], [place] [id number] [facility] Start: 03-17-2022 End: 03-15-2023 25-hydroxyvitamin D3 [Mass/volume] in Serum or Plasma VITAMIN D 25 HYDROXY Lab Routine Osteoporosis, postmenopausal Expected: 03/17/2022 (Approximate), Expires: 03/15/2023 [facility] Work Phone: Comment on above: Expected: 03/17/2022 (Approximate), Expi res: 03/15/2023 Start: 03-17-2022 End: 05-17-2022 C reactive protein [Mass/volume] in Serum or Plasma C-REACTIVE PROTEIN (CRP) Lab Routine PMR (polymyalgia rheumatica) (HCC) 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) Expected: 03/17/2022 (Approximate), Expires: 05/17/2022 [facility] Work Phone: Comment on above: Expected: 03/17/2022 (Approximate), Expi res: 05/17/2022 Start: 03-17-2022 End: 03-15-2023 Calcium [Mass/volume] in Serum or Plasma CALCIUM TOTAL BLD Lab Routine Osteoporosis, postmenopausal Expected: 03/17/2022 (Approximate), Expires: 03/15/2023 [facility] Work Phone: Comment on above: Expected: 03/17/2022 (Approximate), Expi res: 03/15/2023 Start: 03-17-2022 End: 03-15-2023 CREATININE BLD CREATININE BLD Lab Routine Osteoporosis, postmenopausal Expected: 03/17/2022 (Approximate), Expires: 03/15/2023 [facility] Work Phone: Comment on above: Expected: 03/17/2022 (Approximate), Expi res: 03/15/2023 Start: 03-17-2022 End: 05-17-2022 Erythrocyte sedimentation rate SED RATE WESTERGREN Lab Routine PMR (polymyalgia rheumatica) (HCC) 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) Expected: 03/17/2022 (Approximate), Expires: 05/17/2022 [facility] Work Phone: Comment on above: Expected: 03/17/2022 (Approximate), Expi res: 05/17/2022 Start: 01-24-2022 COVID-19 Vaccine (4 - Booster for Pfizer series) COVID-19 Vaccine (4 - Booster for Pfizer series) [facility] Start: 01-09-2022 DTaP/Tdap/Td vaccine (2 - Td or Tdap) DTaP/Tdap/Td vaccine (2 - Td or Tdap) [facility] Start: 01-09-2022 DTaP/Tdap/Td vaccine (2 - Td) DTaP/Tdap/Td vaccine (2 - Td) [facility] [place] Start: 01-09-2022 Urine microalbumin profile DTAP,TDAP,TD (2 - Td or Tdap) [facility] Start: 12-24-2021 ANNUAL PCP TEAM CHRONIC DISEASE VISIT ANNUAL PCP TEAM CHRONIC DISEASE VISIT [facility] Start: 12-24-2021 COVID-19 VACCINE (4 - Booster for Pfizer series) COVID-19 VACCINE (4 - Booster for Pfizer series) [facility] Start: 12-16-2021 End: 02-15-2022 C reactive protein [Mass/volume] in Serum or Plasma [facility] Work Phone: Comment on above: Expected: 12/16/2021 (Approximate), Expi res: 02/15/2022 Start: 12-16-2021 End: 02-15-2022 Erythrocyte sedimentation rate [facility] Work Phone: Comment on above: Expected: 12/16/2021 (Approximate), Expi res: 02/15/2022 Start: 12-16-2021 End: 02-15-2022 VITAMIN D 25 HYDROXY [facility] Work Phone: Comment on above: Expected: 12/16/2021 (Approximate), Expi res: 02/15/2022 Start: 11-21-2021 COVID-19 VACCINE (4 - Booster for Pfizer series) COVID-19 VACCINE (4 - Booster for Pfizer series) [facility] Start: 11-21-2021 COVID-19 VACCINE (4 - Pfizer series) COVID-19 VACCINE (4 - Pfizer series) [facility] Start: 08-20-2021 ADVANCE DIRECTIVE DISCUSSION ADVANCE DIRECTIVE DISCUSSION [facility] Start: 08-20-2021 DEPRESSION ASSESSMENT DEPRESSION ASSESSMENT [facility] Start: 07-20-2015 Medicare Annual Wellness Visit Medicare Annual Wellness Visit [facility] Start: 04-16-2015 Screening for malignant neoplasm of cervix Cervical Cancer Screening [facility] Start: 2015 DEXA (modify frequency per FRAX score) DEXA (modify frequency per FRAX score) [facility] [place] Start: 2010 RSV Vaccine (1 - 1-dose 60+ series) RSV Vaccine (1 - 1-dose 60+ series) [facility] Start: 2010 RSV Vaccine (1 - Risk 60-74 years 1-dose series) RSV Vaccine (1 - Risk 60-74 years 1-dose series) [facility] Start: 2005 Influenza vaccination LUNG CANCER SCREENING [facility] Start: 2005 Screening for osteoporosis DEXA (modify frequency per FRAX score) [facility] Start: 2000 Breast cancer screen Breast cancer screen [place], [place] Start: 2000 Colon cancer screen colonoscopy Colon cancer screen colonoscopy [place], [place] Start: 2000 Influenza vaccination LUNG CANCER SCREENING [facility] Start: 2000 Screening for malignant neoplasm of breast Breast cancer screen [facility] Start: 2000 Screening for malignant neoplasm of lung Lung Cancer Screening [facility] Start: 1995 COLOGUARD (FIT-DNA) COLOGUARD (FIT-DNA) [facility] Start: [address] COLONOGRAPHY [facility] Start: 1995 Screening for malignant neoplasm of colon [facility] Start: 1995 SIGMOIDOSCOPY SIGMOIDOSCOPY [facility] Start: 1990 Diabetes screen Diabetes screen [place], [place] Start: 1990 Lipid panel Lipids [facility] Start: 1990 Lipid screen Lipid screen [place], [place] Start: 1968 Anxiety Screening Anxiety Screening [facility] Start: 1968 BP CONTROLLED (<130/80) BP CONTROLLED (<130/80) [facility] Start: 1968 Depression Screening Depression Screening [facility] Start: 1968 Hepatitis C screening Hepatitis C screen [facility] Start: 1962 Depression Screen Depression Screen [facility] Start: 1950 Hepatitis C screen Hepatitis C screen [place], [place] End: 03-18-2025 Alanine aminotransferase [Enzymatic activity/volume] in Serum or Plasma ALANINE AMINOTRANSFERASE / SGPT Lab Routine Encounter for long-term (current) use of medications 7 Occurrences starting 03/18/2024 until 03/18/2025 [facility] Comment on above: 7 Occurrences starting 03/18/2024 until 03/18/2025 End: 03-18-2025 Aspartate aminotransferase [Enzymatic activity/volume] in Serum or Plasma ASPARTATE AMINOTRANSFERASE/SGOT Lab Routine Encounter for long-term (current) use of medications 7 Occurrences starting 03/18/2024 until 03/18/2025 [facility] Comment on above: 7 Occurrences starting 03/18/2024 until 03/18/2025 Basic metabolic 2008 panel with ionized calcium - Serum or Plasma [facility] End: 03-18-2025 CBC panel - Blood by Automated count COMPLETE BLOOD COUNT Lab Routine Encounter for long-term (current) use of medications 7 Occurrences starting 03/18/2024 until 03/18/2025 [facility] Comment on above: 7 Occurrences starting 03/18/2024 until 03/18/2025 End: 03-18-2025 CREATININE BLD CREATININE BLD Lab Routine Encounter for long-term (current) use of medications 7 Occurrences starting 03/18/2024 until 03/18/2025 [facility] Work Phone: Comment on above: 7 Occurrences starting 03/18/2024 until 03/18/2025 CT Abdomen and Pelvi s WO and W contrast IV [facility] End: 01-15-2025 CT Chest WO contrast CT CHEST WO IVCON Radiology Routine Nodule of lower lobe of left lung 1 Occurrences starting 12/17/2023 until 01/15/2025 [facility] Work Phone: Comment on above: 1 Occurrences starting 12/17/2023 until 01/15/2025 CT Chest WO contrast CT CHEST WO IVCON Radiology Routine Nodule of lower lobe of left lung 01/08/2024 2:52 PM EDT [facility] Work Phone: DBT Breast - bilater al screening PARRIS SCREENING W DOMENIC Radiology Routine Encounter for screening mammogram for breast cancer 11/19/2024 2:04 PM EDT [facility] Work Phone: End: 01-15-2023 Dxa bone density study 1/> sites axial skel DXA-AXIAL SKELETON Radiology Routine Osteoporosis, postmenopausal 1 Occurrences starting 12/16/2021 until 01/15/2023 [facility] Work Phone: Comment on above: 1 Occurrences starting 12/16/2021 until 01/15/2023 End: 10-31-2024 DXA Skeletal system.axial Views for bone density DXA-AXIAL SKELETON Radiology Routine Osteoporosis, postmenopausal 1 Occurrences starting 10/05/2023 until 10/31/2024 [facility] Work Phone: Comment on above: 1 Occurrences starting 10/05/2023 until 10/31/2024 End: 03-07-2026 DXA Skeletal system.axial Views for bone density DXA-AXIAL SKELETON Radiology Routine Osteoporosis, postmenopausal 1 Occurrences starting 02/06/2025 until 03/07/2026 [facility] Comment on above: 1 Occurrences starting 02/06/2025 until 03/07/2026 End: 02-18-2024 DXA-AXIAL SKELETON DXA-AXIAL SKELETON Radiology Routine Osteoporosis, postmenopausal manager 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 1 Occurrences starting 01/19/2023 until 02/18/2024 [facility] Work Phone: Comment on above: 1 Occurrences starting 01/19/2023 until 02/18/2024 EKG 12 Lead EKG 12 Lead ECG Routine 03/16/2022 1:39 PM EDT [facility] Work Phone: End: 03-23-2022 FL Greater Than 1 Hour [facility] Work Phone: Comment on above: Once for 1 Occurrences starting 03/23/20 until 03/23/2022 End: 03-23-2022 INITIATE PACU OXYGEN THERAPY PROTOCOL Initiate PACU Oxygen Therapy Protocol Respiratory Care Routine Continuous until discontinued starting 03/23/2022 [facility] Work Phone: Comment on above: Continuous until discontinued starting 0 03/23/2022 End: 03-23-2022 Intermittent pulse oximetry Pulse Oximetry Spot Check Respiratory Care Routine One Time for 1 Occurrences starting 03/23/2022 until 03/23/2022 [facility] Work Phone: Comment on above: One Time for 1 Occurrences starting 11/2021 until 03/23/2022 MG Breast Screening PARRIS SCREENIN G Radiology Routine Screening mammogram for breast cancer 10/08/2023 10:09 AM EST [facility] Work Phone: End: 03-15-2026 MR Cervical spine WO contrast MRI CERVICAL SPINE WO IVCON Radiology Routine Spinal stenosis of cervical region 1 Occurrences starting 02/13/2025 until 03/15/2026 [facility] Work Phone: Comment on above: 1 Occurrences starting 02/13/2025 until 03/15/2026 Nasal Cannula Oxygen Nasal Cannu la Oxygen Respiratory Care Routine As Needed until discontinued starting 03/23/2022 [facility] Work Phone: Comment on above: As Needed until discontinued starting Nasal Cannula Oxygen Nasal Cannu la Oxygen Respiratory Care Routine As Needed until discontinued starting 03/23/2022 [facility] Work Phone: Comment on above: As Needed until discontinued starting Nonrebreather mask oxygen Nonreb reather mask oxygen Respiratory Care Routine As Needed until discontinued starting 03/23/2022 [facility] Work Phone: Comment on above: As Needed until discontinued starting Nonrebreather mask oxygen Nonreb reather mask oxygen Respiratory Care Routine As Needed until discontinued starting 03/23/2022 [facility] Work Phone: Comment on above: As Needed until discontinued starting Oxygen therapy [[facility] Data Set] Initiate Oxygen Therapy Protocol Respiratory Care Routine As Needed until discontinued starting 03/23/2022 [facility] Work Phone: Comment on above: As Needed until discontinued starting End: 05-19-2023 Radiologic exam chest 2 views XR CHEST 2V FRONTAL/LAT Radiology Routine PMR (polymyalgia rheumatica) (HCC) 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) 1 Occurrences starting 04/19/2022 until 05/19/2023 [facility] Work Phone: Comment on above: 1 Occurrences starting 04/19/2022 until 05/19/2023 Spirometry panel Incentive [place] Respiratory Care Routine Q1H PRN until discontinued starting [facility]/23/2022 [facility] Work Phone: Comment on above: Q1H PRN until discontinued starting 11/2021 End: 12-16-2024 US Carotid arteries - bilateral US CAROTID ARTERIES [facility] Vascular Lab Routine Carotid atherosclerosis, bilateral 1 Occurrences starting 12/17/2023 until 12/16/2024 [facility] Comment on above: 1 Occurrences starting 12/17/2023 until 12/16/2024 End: 12-30-2021 XR ANKLE RIGHT (MIN 3 VIEWS) [facility] Work Phone: Comment on above: 1 Occurrences starting 12/30/2021 until 12/30/2021 End: 03-08-2026 XR Cervical spine AP and Lateral and oblique XR CERV OTHER 4V AP/LAT/OBL Radiology Routine Neck pain 1 Occurrences starting 02/06/2025 until 03/08/2026 [facility] Comment on above: 1 Occurrences starting 02/06/2025 until 03/08/2026 XR Cervical spine AP and Lateral and oblique XR CERV OTHER 4V AP/LAT/OBL Radiology Routine Neck pain 02/06/2025 3:58 PM EDT [facility] Immunizations Immunization Date Immunization Notes Care Provider Zaira navarro 06-15-2023 influenza (HD-IIV4) vaccine, age 65+ yr, high dose, quadrivalent, PF (FLUZONE HIGH-DOSE) Miah Cottrell DO Work Phone: [facility] Work Phone: 06-15-2023 influenza virus vacc ine, unspecified formulation Ronna Quiroz ROLLER INSPECTOR AND MENDER.SHINGLE INSPECTOR Work Phone: [facility] 06-25-2022 TD(adult) unspecifie d formulation Jeremy Cohen APRN.SHINGLE INSPECTOR Work Phone: [facility] Work Phone: 06-25-2022 tetanus and diphther ia toxoids, adsorbed, preservative free, for adult use (5 Lf of tetanus toxoid and 2 Lf of diphtheria toxoid) Jeremy Cohen APRN.SHINGLE INSPECTOR Work Phone: [facility] 06-09-2020 influenza, high-dose , quadrivalent vaccine (FLUZONE HIGH DOSE QUADRIVALENT) Palma Lovett APRN.SHINGLE INSPECTOR Work Phone: [facility] 06-09-2020 influenza virus vacc ine, unspecified formulation Will Ruiz MD Work Phone: [facility] 08-15-2019 pneumococcal polysaccharide vaccine, 23 valent Palma Lovett ROLLER INSPECTOR AND MENDER.SHINGLE INSPECTOR Work Phone: [facility] Work Phone: 07-28-2019 influenza, high dose seasonal, preservative-free Palma Lovett ROLLER INSPECTOR AND MENDER.SHINGLE INSPECTOR Work Phone: [facility] 11-07-2018 zoster vaccine recombinant Palma Lovett ROLLER INSPECTOR AND MENDER.SHINGLE INSPECTOR Work Phone: [facility] 06-07-2018 influenza, high dose seasonal, preservative-free Palma Lovett ROLLER INSPECTOR AND MENDER.SHINGLE INSPECTOR Work Phone: [facility] 06-07-2018 zoster vaccine recombinant Palma Lovett ROLLER INSPECTOR AND MENDER.SHINGLE INSPECTOR Work Phone: [facility] 06-06-2018 influenza, high dose seasonal, preservative-free Palma Lovett ROLLER INSPECTOR AND MENDER.SHINGLE INSPECTOR Work Phone: [facility] 06-06-2018 zoster vaccine recombinant Janie Massey PA-C Work Phone: [facility] 05-21-2017 influenza, high dose seasonal, preservative-free Palma Lovett ROLLER INSPECTOR AND MENDER.SHINGLE INSPECTOR Work Phone: [facility] 01-17-2017 pneumococcal conjuga te vaccine, 13 valent Palma Lovett ROLLER INSPECTOR AND MENDER.SHINGLE INSPECTOR Work Phone: [facility] Work Phone: 06-12-2016 influenza, high dose seasonal, preservative-free Palma Lovett ROLLER INSPECTOR AND MENDER.SHINGLE INSPECTOR Work Phone: [facility] 07-02-2014 influenza, seasonal, injectable Palma Lovett ROLLER INSPECTOR AND MENDER.SHINGLE INSPECTOR Work Phone: [facility] 04-13-2014 pneumococcal polysaccharide vaccine, 23 valent Palma Lovett ROLLER INSPECTOR AND MENDER.SHINGLE INSPECTOR Work Phone: [facility] 07-23-2013 influenza virus vacc ine, unspecified formulation Palma Lovett ROLLER INSPECTOR AND MENDER.SHINGLE INSPECTOR Work Phone: [facility] Work Phone: 01-10-2012 tetanus toxoid, redu dea diphtheria toxoid, and acellular pertussis vaccine, adsorbed Palma Lovett ROLLER INSPECTOR AND MENDER.SHINGLE INSPECTOR Work Phone: [facility] Work Phone: 07-14-2011 influenza virus vacc ine, unspecified formulation Palma Lovett ROLLER INSPECTOR AND MENDER.SHINGLE INSPECTOR Work Phone: [facility] Work Phone: Payers Date Payer Category Payer Self-pay [id number] 2025 Medicare [id number] 2023 Medicare [id number] 2021 Private Health Insurance AETNA AETNA MEDICARE SUPPLEMENT [id number] 2021-Present [phone] [address] [address] [place] [address] Indemnity [id number] 2021 Private Health Insurance [id number] 2021 Private Health Insurance [id number] 2016 Medicare MEDICARE MEDICAR E PART A AND B xxxxxxxxxx 2016-Present [phone] [place] [address] xxxxxxxxxx [id number] 2016 Medicare MEDICARE MEDICAR E PART A AND B [id number] 2016-Present [phone] [place] [address] [id number] 2015 Medicare MEDICARE MEDICAR E A AND B [id number] 2015-Present [phone] [address] [address] [place] [address] Medicare [id number] 2015 Medicare [id number] 2015 Unknown [id number] 2015 Medicare [id number] 2011 Unknown ESIS ESIS xxxxxx xxxxxxxx 2011-Present [phone] [address] [address] [place] [address] xxxxxxxxxxxxxx [id number] 2011 Unknown ESIS ESIS [id number] 2011-Present [address] [place] [id number] Unknown [id number] Unknown [id number] Unknown [id number] Unknown [id number] Unknown [id number] 462 Unknown [id number] 462 Unknown [id number] 462 Unknown [id number] 462 Unknown [id number] 462 Social History Date Type Detail Facility Start: 10-31-2019 End: 06-18-2025 Tobacco smoking status NHIS Current every day smoker [facility] Work Phone: History of tobacco use Cigarette Smoker [place], [place] Start: 10-31-2019 End: 01-19-2023 Cigarettes smoked current (pack per day) - Reported [facility] Start: 10-31-2019 End: 2025 Alcohol intake Current non-drinker of alcohol (finding) [place], [place] Start: 1950 Sex Assigned At Not on file [place] Start: 08-15-2019 End: 07-03-2022 History SDOH Alcohol Frequency 1 [facility] Start: 08-15-2019 History SDOH Alcohol Std Drinks 98 [facility] Start: 06-08-2020 End: 07-03-2022 History SDOH Social Connections Phone 5 [facility] Start: 06-08-2020 History SDOH Social Connections Get Together 3 [facility] Start: 08-15-2019 End: 07-03-2022 History SDOH Social Connections Membership 2 [facility] Start: 08-15-2019 End: 06-09-2020 History SDOH Social Connections Living 4 [facility] Start: 08-15-2019 End: 07-03-2022 History SDOH Physical Activity DPW 0 [facility] Start: 08-15-2019 Education 12 [facility] Start: 1950 Sex Assigned At Female C [facility] Start: 12-16-2021 End: 07-07-2022 Exposure to SARS-CoV-2 (event) Not sure [facility] Work Phone: Start: 06-16-2016 End: 2024 Tobacco use and exposure Smokeless tobacco non-user [employer] Work Phone: Start: 03-23-2022 Tobacco Comment Patient did no t smoke today [employer] Work Phone: Start: 11-20-2020 Tobacco smoking stat us NHIS Unknown if ever smoked [facility] Start: 07-03-2022 End: 01-19-2023 Social connection and isolation panel [facility] Start: 07-21-2012 Attends [employer] Not on file [facility] How often do you hav e 6 or more drinks on 1 occasion? Never [facility] How hard is it for y ou to pay for the very basics like food, housing, medical care, and heating Not very hard [facility] Work Phone: Do you feel stress - tense, restless, nervous, or anxious, or unable to sleep at night because your mind is troubled all the time - these days [OSQ] Only a little [facility] (I/We) worried amanuel er (my/our) food would run out before (I/we) got money to buy more. Sometimes true [facility] The food that (I/we) bought just didn't last, and (I/we) didn't have money to get more. Never true [facility] At any time in the p ast 12 months, were you homeless or living in correction [including now]? No [facility] Start: 04-27-2021 Gender identity Identifies as female gender (finding) [facility] Start: 04-27-2021 Sexual orientation Heterosexual (jemal canales) [facility] Are you now , , , , never or living with a partner? [facility] How hard is it for y ou to pay for the very basics like food, housing, medical care, and heating Somewhat hard [facility] Do you feel stress - tense, restless, nervous, or anxious, or unable to sleep at night because your mind is troubled all the time - these days [OSQ] To some extent [facility] Do you feel stress - tense, restless, nervous, or anxious, or unable to sleep at night because your mind is troubled all the time - these days [OSQ] Not at all [facility] Medical Equipment Procedure Code Equipment Code Equipment Original Text Equipment Identifier Dates [id number], [id number] Start: 02-03-2020 End: 07-24-2022 Comment on above: Use as directed to a dminister Forteo Use as directed to a dminister methotrexate. CLIP,CASSY PEREZ FDA Start: 07-09-2020 ADDISON,CASSY PEREZ FDA Start: 07-09-2020 CASSY JAIME FDA Start: 07-09-2020 CASSY JAIME FDA Start: 07-09-2020 CASSY JAIME FDA Start: 07-09-2020 CASSY JAIME FDA Start: 07-09-2020 CASSY JAIME FDA Start: 07-09-2020 CASSY JAIME FDA Start: 07-09-2020 CASSY JAIME FDA Start: 07-09-2020 CASSY JAIME FDA Start: 07-09-2020 CASSY JAIME FDA Start: 07-09-2020 CASSY JAIME FDA Start: 07-09-2020 CASSY JAIME FDA Start: 07-09-2020 CASSY JAIME FDA Start: 07-09-2020 Goals Date Patient Goal Desired Activity /State Functional Status Date Assessment Result Facility 01-07-2015 Are you deaf, or do you have serious difficulty hearing No 01/07/2015 3:27 PM LISAT Alena Jiang [facility] 01-07-2015 Are you blind, or do you have serious difficulty seeing, even when wearing glasses No 01/07/2015 3:27 PM Alena Strauss [facility] 01-07-2015 Do you have serious difficulty walking or climbing stairs No 01/07/2015 3:27 PM LISAT Alena Jiang [facility] 01-07-2015 Do you have difficul ty dressing or bathing No 01/07/2015 3:27 PM Alena Strauss [facility] 01-07-2015 Because of a physica l, mental, or emotional condition, do you have difficulty doing errands alone such as visiting a physician's office or shopping No 01/07/2015 3:27 PM Alena Strauss [facility] Mental Status Date Assessment Result Facility 06-18-2025 Cognitive function Level Of Cons ciousness Drowsy [facility] Work Phone: 01-07-2015 Because of a physica l, mental, or emotional condition, do you have serious difficulty concentrating, remembering, or making decisions No 01/07/2015 3:27 PM EDT Alena Jiang No [facility] Clinical Notes 01-18-2012 to 06-18-2025 Note Date & Type Note Facility 06-18-2025 Note [facility] Medical Records Department [address] [place] [address] History Physical Exam 06/18/25 0741 MR#: [id number] Acct: [id number] Name: CECELIA QUIROZ Rep #: [id number] : 1950 75 From: Madeline Obrien MD PCP: Dr. Miah Cottrell DO Status:[facility] Location: [place] [address] History and Physical Date of Admission: 06/18/25 Date of Service: 06/09/25 MR#: [id number] Acct: [id number] Name: CECELIA QUIROZ Rep #: [id number] : 1950 Provider: Dr. Madeline Obrien MD Age/Sex: 75/F [place] [facility] Status: Signed Intake Vital Signs 05/26/2511:49 06/09/2513:55 Height 5 ft 3 in 5 ft 3 in Weight: 139 lb 139 lb BMI 24.6 24.6 BP 131/70 H 137/69 H Pulse 63 82 Intake Visit Reasons: cystoscopy and pelvic exam Chief Complaint: cystoscopy and pelvic exam Philosophy Instructor Required: No Accompanied by: self Is patient in pain?: No Allergies No Known Allergies Allergy (Verified 06/09/25 13:54) Medications ???Medication ???Instructions ???Recorded ???Confirmed ???Type prednisone 10 mg tablet 10.5 mg PO DAILY 04/05/14 06/09/25 History metoprolol succinate 50 mg 25 mg PO BID tremors 07/02/20 06/09/25 History tablet,extended release 24 hr cholestyramine-aspartame 4 gram 4 gm PO BID 11/20/20 06/09/25 History oral powder loperamide 2 mg capsule 2 mg PO 4X/DAY PRN PRN Diarrhea 11/20/20 06/09/25 History primidone 50 mg tablet 50 mg PO DAILY 11/20/20 06/09/25 History denosumab 60 mg/mL subcutaneous 60 mg subcut [id number] 05/26/25 06/09/25 History syringe (Prolia) latanoprost 0.005 % eye drops 1 drp ophthalmic (eye) QDAY 05/26/25 06/09/25 Hist ory Have you fallen in the past year?: No PFSH Medical History Ulcer Polycystic ovaries IBS (irritable bowel syndrome) Hypoglycemia Hypertension GI problem Glaucoma Gallstones Cataracts, bilateral Cancer Breast lump Bone fracture Arthritis Tremor Bartholin cyst History of uterine cancer Osteoarthritis GERD (gastroesophageal reflux disease) Chest pain at rest Giant cell arteritis with polymyalgia rheumatica Surgical History History of right breast biopsy Status post fine needle aspiration History of breast biopsy ( 07/2018) History of appendectomy Status post ORIF of fracture of ankle history of ulnar nerve transplant History of arthroplasty of left shoulder History of colonoscopy History of partial hysterectomy history of bartholin cyst removal Family History Brother Cancer liver and lymphoma Sister Cancer lung Diabetes Father Diabetes Heart disease Myocardial infarction Mother Heart disease Other Anesthesia complication Arthritis Bleeding disorder H/O transfusion of whole blood Hypertension Kidney disease Melanoma Social History Smoking Status: Current every day smoker alcohol intake: never substance use type: does not use what type of physical activity do you participate in: none do you feel safe at home: Yes HPI [facility] Urology Chief Complaint: cystoscopy and pelvic exam Details: CECELIA QUIROZ, is a 75 F. She is here for cystoscopy and pelvic exam today. She has no sign of acute urinary tract infection today. She denies hematuria. Questions regarding the procedure were answered and she gives consent to proceed. She is ready to start a medication for her urgency and frequency. ROS Const Constitutional: No chills, fatigue, fever(s), headache(s), night sweats, weakness, weight change, abnormal sleep pattern or change in appetite Eyes Eyes: No change in vision ENT ENT: No headache(s) or dry mouth Resp Respiratory: No cough, chest congestion, shortness of breath or wheezing Cardio Cardiology: Positive for other (No chest pain.); No shortness of breath, irregular heart rhythm or lightheadedness Gastro GI: Positive for other (No nausea.); No abdominal pain, change in bowel habits, constipation, diarrhea or vomiting Musc Musculoskeletal: No abnormal gait Skin Skin: No yellowing of the eye, lesions, itchy eyes, rash or skin ulcer Neuro Neurology: No abnormal gait, confusion, dizziness, weakness, headache(s) or memory loss Psych Psychiatric: No abnormal sleep pattern, No change in appetite, No confusion and No memory loss Endo Endocrine: No fatigue, increased thirst/drinking or weight change Aller/Imm Allergy/Immunologic: No itchy eyes or wheezing Lane/Lymp Hematologic/Lymph (more content not included)... [facility] 06-09-2025 Progress note [facility] 06-09-2025 Progress note Note Date/Time June 09, 2025 3:09pm [facility] [address] [place] [address] OFFICE VISIT Date of Service: 06/09/25 MR#: [id number] Acct: [id number] Name: CECELIA QUIROZ Rep #: [id number] : 1950 Provider: Dr. Bailey Obrien MD Age/Sex: 75/F Location: [facility] [place] Status: Signed Intake Vital Signs 05/26/25 11:49 06/09/25 13:55 Height 5 ft 3 in 5 ft 3 in Weight: 139 lb 139 lb BMI 24.6 24.6 BP 131/70 H 137/69 H Pulse 63 82 Intake Visit Reasons: cystoscopy and pelvic exam Chief Complaint: cystoscopy and pelvic exam Philosophy Instructor Required: No Accompanied by: self Is patient in pain?: No Allergies No Known Allergies Allergy (Verified 06/09/25 13:54) Medications ?Medication ?Instructions ?Recorded ?Confirmed ?Type prednisone 10 mg tablet 10.5 mg PO DAILY 04/05/14 History metoprolol succinate 50 mg 25 mg PO BID tremors 06/09/25 History tablet,extended release 24 hr cholestyramine-aspartame 4 gram 4 gm PO BID 11/20/20 1 History oral powder loperamide 2 mg capsule 2 mg PO 4X/DAY PRN PRN Diarr hea 11/20/20 06/09/25 History primidone 50 mg tablet 50 mg PO DAILY 11/20/20 10/09/13 History denosumab 60 mg/mL subcutaneous 60 mg subcut [id number] 05/26/25 06/09/25 History syringe (Prolia) latanoprost 0.005 % eye drops 1 drp ophthalmic (eye) Q DAY 05/26/25 06/09/25 History Have you fallen in the past year?: No PFSH Medical History Ulcer Polycystic ovaries IBS (irritable bowel syndrome) Hypoglycemia Hypertension GI problem Glaucoma Gallstones Cataracts, bilateral Cancer Breast lump Bone fracture Arthritis Tremor Bartholin cyst History of uterine cancer Osteoarthritis GERD (gastroesophageal reflux disease) Chest pain at rest Giant cell arteritis with polymyalgia rheumatica Surgical History History of right breast biopsy Status post fine needle aspiration History of breast biopsy (~07/2018) History of appendectomy Status post ORIF of fracture of ankle history of ulnar nerve transplant History of arthroplasty of left shoulder History of colonoscopy History of partial hysterectomy history of bartholin cyst removal Family History Brother Cancer liver and lymphoma Sister Cancer lung Diabetes Father Diabetes Heart disease Myocardial infarction Mother Heart disease Other Anesthesia complication Arthritis Bleeding disorder H/O transfusion of whole blood Hypertension Kidney disease Melanoma Social History Smoking Status: Current every day smoker alcohol intake: never substance use type: does not use what type of physical activity do you participate in: none do you feel safe at home: Yes HPI [facility] Chief Complaint: cystoscopy and pelvic exam Details: CECELIA QUIROZ, is a 75 F. She is here for cystoscopy and pelvic exam today. She has no sign of acute urinary tract infection today. She denies hematuria. Questions regarding the procedure were answered and she gives consent to proceed. She is ready to start a medication for her urgency and frequency. ROS Const Constitutional: No chills, fatigue, fever(s), headache(s), night sweats, weakness, weight change, abnormal sleep pattern or change in appetite Eyes Eyes: No change in vision ENT ENT: No headache(s) or dry mouth Resp Respiratory: No cough, chest congestion, shortness of breath or wheezing Cardio Cardiology: Positive for other (No chest pain.); No shortness of breath, irregular heart rhythm or lightheadedness Gastro GI: Positive for other (No nausea.); No abdominal pain, change in bowel habits, constipation, diarrhea or vomiting Musc Musculoskeletal: No abnormal gait Skin Skin: No yellowing of the eye, lesions, itchy eyes, rash or skin ulcer Neuro Neurology: No abnormal gait, confusion, dizziness, weakness, headache(s) or memory loss Psych Psychiatric: No abnormal sleep pattern, No change in appetite, No confusion and No memory loss Endo Endocrine: No fatigue, increased thirst/drinking or weight change Aller/Imm Allergy/Immunologic: No itchy eyes or wheezing Alne/Lymp Hematologic/Lymphatic: No easy bleeding, easy bruising or enlarged lymph nodes Exam Const General: cooperative, healthy appearing, comfortable and no acute distress [facility] Head: normocephalic and atraumatic Ears: hearing grossly normal bilaterally and external ears normal Nose: external nose normal Eyes General: appearance normal, both eyes and all related structures Neck Neck: normal visual inspection and trachea midline Chest Chest palpation & inspection: normal inspection of the chest Resp Effort & Inspection: normal respiratory effort, able to speak in complete sentences and symmetric chest movement Cardio Rate: regular rate GI Inspection: normal to inspection Palpation: soft and nontender General: No CVA tenderness External Female Exam: normal external appearance and normal appearance of the urethra Urethra: normal appearance of the urethra Speculum Exam - Vagina: vagina atrophic and no masses Bimanual Exam- Adnexa, other: apex supported Recto-Vaginal: other (no stool in rectal vault) Pelvic Support: no cystocele, no rectocele and apex supported Skin General: no rashes or lesions noted Neuro General: patient alert, patient awake, patient oriented x3 and CN's II-XI intactbilaterally Extrem General: normal to inspection Psych Appearance: grossly normal and well kempt Mental Status: mental status grossly normal Office Procedures Cystoscopy Procedure Completed: Yes Cystoscopy: The patient was placed into dorsal lithotomy position, and was cleaned in usual sterile fashion. The urethra was anesthetized with 2% lidocaine jelly. The cystoscope was inserted through the urethra under direct visualization. No urethral abnormalities were detected. The bladder in its entirety was inspected.The ureteral orifices were identified bilaterally in correct anatomic position. The following were identified: no ulceration or foreign body. There is a 1cm right lateral wall lesion that is erythematous and irregular. Possible squamous metaplasia with white plaque at the trigone. No debris consistent with keratin. The cystoscope was removed, and the procedure was terminated. The patient tolerated the procedure well without complication or difficulty. Results POC UA Auto w/o Microscopy Office Urine Color Last Edit by Angelica Tavarez on 06/09/25 13:58 Office Urine Clarity Last Edit by Angelica Tavarez on 06/09/25 13:58 Office Urine Glucose Negative Last Edit by Angelica Tavarez on 06/09/25 13:5 8 Office Urine Ketones Trace (5) Last Edit by Angelica Tavarez on 06/09/25 13: 58 Office Urine Bilirubin Negative Last Edit by Angelica Tavarez on 06/09/25 13 :58 Office Urine Urobilinogen 0.2 mg/dL Last Edit by Angelica Tavarez on 5 13:58 Off Ur Spec [place] 1.010 Last Edit by Angelica Tavarez on 06/09/25 13:58 Office Urine pH 7.5 Last Edit by Angelica Tavarez on 06/09/25 13:58 Office Urine Protein Negative Last Edit by Angelica Tavarez on 06/09/25 13:5 8 Office Urine Blood Large Last Edit by Angelica Tavarez on 06/09/25 13:58 Office Urine Blood Hemolyzed Negative Last Edit by Angelica Tavarez on 06/09 13:58 Office Urine Nitrate Negative Last Edit by Angelica Tavarez on 06/09/25 13:5 8 Off Ur Leukocytes Negatve Last Edit by Angelica Tavarez on 06/09/25 13:58 Supplemental Info CTU no urologic pathology, cytology negative for cancer cells Coding Level of Care Code Off vis,est,level 4 Diagnoses Gross hematuria R31.0 Overactive bladder N32.81 Nocturia R35.1 Urge incontinence N39.41 Vaginal atrophy N95.2 Assessment and Plan Assessment and Plan (1) Gross hematuria: Status: Acute (2) Overactive bladder: Status: Acute (3) Nocturia: Status: Acute (4) Urge incontinence: Status: Acute (5) Vaginal atrophy: Status: Acute Orders: Orders POC UA Auto w/o Microscopy Today R31.0 - Gross hematuria Cysto Today R31.0 - Gross hematuria Plan schedule cystoscopy with bladder biopsy and fulguration under anesthesia Gemtesa trial, side effects discussed voiding diary The procedure, recovery and expectations were explained. The risks, benefits andalternatives were discussed, including but not limited to, the risks of anesthesia, bleeding, infection, injury, pain and the need for further intervention. We have discussed the risk of exposure to and/or potential harm posed by the COVID-19 virus with having a surgery/procedure at this time. A joint decision was made at this time to proceed with the scheduled surgery/procedure as indicated on the consent form. Plan Details Follow Up: schedule OR (Gemtesa samples today) Clinical Quality Measures Falls Risk Screening/Assistive Devices Have you fallen in the past year?: No 06/09/25 3502 <Electronically signed by Madeline Obrien MD> Date _ Madeline Obrien MD Cosigner Signature: Date (if applicable) CC: ~ [place] [employer] Work Phone: 1(990) 270-913810-07-2025 Evaluation note* Diagnosis Onset Date Resolution Status Admit Date Gross hematuria acute May 262024 11:40am Nocturia acute May 26, 2 11:40am Overactive bladder acute Oct r 2024 11:40am Urge incontinence acute May 26, 2025 11:40am Vaginal atrophy acute May 262024 11:40am Gross hematuria acute May 212024 1:28pm Nocturia acute June 09, 2025 1:28pm Overactive bladder acute Octobe r 2024 1:28pm Urge incontinence acute June 09, 2025 1:28pm Vaginal atrophy acute May 212024 1:28pm [facility] Work Phone: 1(842) 911-515309-26-2025 NoteHNO ID: [id number] Author: FILIPE MCNEILL RT(R) Service: ? Author Type: Technologist Type: Progress Notes Filed: 05/15/2025 14:02 Note Text: Radiology Service Progress Note PATIENT NAME: Cecelia Quiroz DATE OF SERVICE: May 15, 2025 TIME: 1:50 PM PATIENT IDENTITY VERIFICATION COMPLETED USING TWO (2) IDENTIFIERS: Name and Date of confirmed by patient verbally. FALL SCREENING: Has the patient had 2 falls in the last year or 1 fall with injury or currently using an Ambulatory Assistive Device (Walker, Cane, Wheelchair, Crutches, etc.)? No PATIENT GENDER DATA: Assigned female at . status: : No status: NO. PATIENT RELEVANT IMPLANT DATA REVIEWED: Not Applicable PATIENT PRESENTS WITH AN IMPLANTABLE OR ATTACHED SENIOR WINDOWS SYSTEMS ENGINEER: No RADIOLOGY DEPARTMENT: Bone Density PERIPHERAL IV DATA: Not applicable SIGNED BY: RT Bridger(R) May 15, 2025 1:50 [facility]09-02-2025 NoteHNO ID: [id number] Author: MARKO WOOD MD Service: ? Author Type: Physician Type: Progress Notes Filed: 04/21/2025 09:37 Note Text: [facility] - FOLLOW UP EVALUATION Recording using uShare software for draft documentation of the visit was discussed with the patient/authorized junior sales representative; all questions welcomed and answered. Patient/authorized junior sales representative agreed to proceed Miah Cottrell DO [id number] [facility] [id number] Dear Miah Cottrell DO: I had the pleasure of seeing Ms. Quiroz for follow-up today. As you know she is a 75 year old right-handed female with a history of tremor since age 12 . Subjective Previous Plan- 2024 Visit: Continue your medications as you have been taking them. We are not making any changes today. If you feel you are not tolerating them or your symptoms are changing before your next appointment, please feel free to send me a [employer] message or contact the office - Interval History: Cecelia Quiroz is a 75-year-old female with a history of tremors and polymyalgia rheumatica (PMR), presenting for follow-up. Cecelia reports a slight increase in tremors, particularly in the right hand, but describes them as manageable and not significantly affecting daily activities. She notes some impact on her handwriting but attributes this to aging. She does not wish to adjust her medication at this time. She is currently taking primidone at bedtime and metoprolol, prescribed by Dr. Cottrell. She does not endorse any side effects from primidone, such as dizziness or excessive sleepiness, and mentions difficulty sleeping, often taking 2-3 hours to fall asleep. Cecelia reports intermittent numbness and tingling in the right hand, sometimes extending to the entire hand, which she can alleviate by shaking it. These symptoms occur during the day while driving or sitting and are not present at night. She does not report similar symptoms in the left hand. She also experiences neck pain, particularly when reaching overhead, which sometimes radiates up through her head. She has not pursued physical therapy. She mentions a history of a broken humerus, which has healed well. Cecelia reports occasional ankle pain, particularly when lying in certain positions, and a recent episode of head pain reminiscent of her initial PMR symptoms, which resolved quickly. She is currently taking medication for PMR. She does not endorse issues with walking or balance and describes her overall health as boring. She expresses a desire to manage her symptoms conservatively and is not interested in additional medications at this time. Movement Disorders Medications Schedule - as of the start of the visit: Medications Bed metoprolol ER 50 mg BID primidone 250 mg 1 Other Movement Disorder Prior Therapies Propranolol, Primidone propranolol caused diarrhea but did help tremors Questionnaires: In addition, the following areas that may be affected by abnormal involuntary movements were evaluated: Daily activities Difficulties with eatin (none) Difficulties in dressin (none) Difficulties with hygiene activities: 0 (none) Difficulties with handwritin (none) Difficulties with doing hobbies and other activities: 0 (none) Difficulties turning in bed: 0 (none) Difficulties getting out of bed, car or chair: 0 (none) Tremors/Gait/Balance Shaking or tremors: 0 (none) Walking and balance problems: 0 (none) Number of falls in the Last Month: 0 Gait freezin (none) Autonomic/Pain Lightheadeness on standin (none) Urinary problems: 0 (none) Constipation problems: 0 (none) Pain and other sensations: Yes (moderate) Speech/Swallowing Speech problems: 0 (none) Droolin (none) Chewing and swallowing problems: 0 (none) Sleep/Fatigue Sleep problems: Yes (mild) Daytime sleepiness: Yes (slight) Fatigue: Yes (slight) Mood/Behavior Depression: PHQ-9 Score: 5 usually representing mild (5-9) depression. Anxiety: RICHARD-7 Total Score: 1 usually representing no significant (0-4) anxiety. Finally, the following table shows the patient's overall global physical and mental health using the PROMIS scale: PROMIS-10 Flowsheet Row Office Visit from 03/17/2025 in [facility] [place] Office Visit from 02/13/2025 in [facility] Global Physical Health T Score 44.9 42.3 Global Mental Health T Score 45.8 48.3 0-10 Standard Pain Scale 3 3 *PROMIS-10 scoring scale: mean = 50, over 50 is above average, under 50 is below average In addition, the following Parkinson Lifestyle-associated features were evaluated: Conditions Prior to Dx: Depression: No Anxiety: No Melanoma: No Constipation: No Yelling: No Head Trauma: No Habits/exposures Prior to Dx Smoking: Yes (and still do) Caffeinated coffee (1-cup+): No Caffeinated soda/tea (2 cups+): Yes (and still do) Alcohol (1 bottle/shot/glass+): No Exercise (more content not included)...[facility]09-02-2025 History of Present illness Narrative* Marko Wood MD - 04/21/2025 9:36 AM EDT [facility] - FOLLOW UP EVALUATION Recording using uShare software for draft documentation of the visit was discussed with the patient/authorized junior sales representative; all questions welcomed and answered. Patient/authorized junior sales representative agreed to proceed Miah Cottrell DO [id number] [facility] [id number] Dear Miah L Cottrell, DO: I had the pleasure of seeing Ms. Quiroz for follow-up today. As you know she is a 75 year old right-handed female with a history of tremor since age 12 . Subjective Previous Plan- 2024 Visit: Continue your medications as you have been taking them. We are not making any changes today. If youfeel you are not tolerating them or your symptoms are changing before your next appointment, pleasefeel free to send me a [employer] message or contact the office - Interval History: Cecelia Quiroz is a 75-year-old female with a history of tremors and polymyalgia rheumatica (PMR), presenting for follow-up. Cecelia reports a slight increase in tremors, particularly in the right hand, but describes them as manageable and not significantly affecting daily activities. She notes some impact on her handwriting but attributes this to aging. She does not wish to adjust her medication at this time. She is currently taking primidone at bedtime and metoprolol, prescribed by Dr. Cottrell. She does not endorse any side effects from primidone, such as dizziness or excessive sleepiness, andmentions difficulty sleeping, often taking 2-3 hours to fall asleep. Cecelia reports intermittent numbness and tingling in the right hand, sometimes extending to the entire hand, which she can alleviate by shaking it. These symptoms occur during the day while driving or sitting and are not present at night. She does not report similar symptoms in the left hand. She also experiences neck pain, particularly when reaching overhead, which sometimes radiates up through her head. She has not pursued physical therapy. She mentions a history of a broken humerus, which has healed well. Cecelia reports occasional ankle pain, particularly when lying in certain positions, and a recent episode of head pain reminiscent of her initial PMR symptoms, which resolved quickly. She is currently taking medication for PMR. She does not endorse issues with walking or balance and describes her overall health as boring. She expresses a desire to manage her symptoms conservatively and is not interested in additional medications at this time. Movement Disorders Medications Schedule - as of the start of the visit: Medications Bed metoprolol ER 50 mg BID primidone 250 mg 1 Other Movement Disorder Prior Therapies Propranolol, Primidone propranolol caused diarrhea but did help tremors Questionnaires: In addition, the following areas that may be affected by abnormal involuntary movements were evaluated: Daily activities Difficulties with eatin (none) Difficulties in dressin (none) Difficulties with hygiene activities: 0 (none) Difficulties with handwritin (none) Difficulties with doing hobbies and other activities: 0 (none) Difficulties turning in bed: 0 (none) Difficulties getting out of bed, car or chair: 0 (none) Tremors/Gait/Balance Shaking or tremors: 0 (none) Walking and balance problems: 0 (none) Number of falls in the Last Month: 0 Gait freezin (none) Autonomic/Pain Lightheadeness on standin (none) Urinary problems: 0 (none) Constipation problems: 0 (none) Pain and other sensations: Yes (moderate) Speech/Swallowing Speech problems: 0 (none) Droolin (none) Chewing and swallowing problems: 0 (none) Sleep/Fatigue Sleep problems: Yes (mild) Daytime sleepiness: Yes (slight) Fatigue: Yes (slight) Mood/Behavior Depression: PHQ-9 Score: 5 usually representing mild (5-9) depression. Anxiety: RICHARD-7 Total Score: 1 usually representing no significant (0-4) anxiety. Finally, the following table shows the patient's overall global physical and mental health using the PROMIS scale: PROMIS-10 Flowsheet Row Office Visit from 03/17/2025 in [facility] [place] [facility] Global Physical Health T Score 44.9 42.3 Global Mental Health T Score 45.8 48.3 0-10 Standard Pain Scale 3 3 *PROMIS-10 scoring scale: mean = 50, over 50 is above average, under 50 is below average In addition, the following Parkinson Lifestyle-associated features were evaluated: Conditions Prior to Dx: Depression: No Anxiety: No Melanoma: No Constipation: No Yelling: No Head Trauma: No Habits/exposures Prior to Dx Smoking: Yes (and still do) Caffeinated coffee (1-cup+): No Caffeinated soda/tea (2 cups+): Yes (and still do) Alcohol (1 bottle/shot/glass+): No Exercise (3x/wk+): No Ibuprofen use (1x/wk+): No Pesticides: No Welding: No ALLERGIES Allergen Reactions Sulfasalazine Rash Current Outpatient Medications Medication Sig predniSONE (DELTASONE) 10 mg tablet Take 1 tablet by mouth once daily. Take in the morning with food. denosumab (PROLIA SQ) Inject subcutaneously once every 6 months. metoprolol succinate ER (TOPROL XL) 50 mg 24 hr tablet Take 1 tablet by mouth two times a day. Blood Pressure Test Kit-Large (QUICK RESPONSE BP MONITOR) 1 Each once daily. travoprost (TRAVATAN Z) 0.004 % ophthalmic drops 1 Drop. loperamide (IMODIUM) 2 mg cap(s) Take 2 mg by mouth four times daily as needed. primidone (MYSOLINE) 250 mg tablet Take 1 tablet by mouth daily at bedtime. SARilumab (KEVZARA) 200 mg/1.14 mL injection Inject 200mg (1 syringe) subcutaneously every 2 weeks.(Patient not taking: Reported on 04/13/2025) No current facility-administered medications for this visit. Objective Vital Signs: BP 130/74 (BP Site: Left Arm, BP Position: Sitting, BP Cuff Size: Regular Adult) Pulse 83 Wt 63.3 kg (139 lb 8.8 oz) SpO2 96% BMI 23.45 kg/m Orthostatic Vitals: None for this encounter Weight: 63.3 kg (139 lb 8.8 oz) No LMP recorded. Patient has had a hysterectomy. Body mass index is 23.45 kg/m . - Neurological: - Coordination: Mild tremor in both hands; able to perform dijczj-ym-kchp and qqtity-ir-zhseir tests without difficulty; rapid alternating movements intact. - Motor: No rigidity noted in upper extremities. Movement Disorders Scales Performed: Assessment and Plan: Assessment Ms. Quiroz is a right-handed 75 year old year old female with essential tremor. The following are the current problems noted and addressed during this visit: Essential tremor Cervicalgia Plan 2025 Visit: 1. Essential tremor: - Mild increase in right-hand tremor noted but remains functionally acceptable for the patient. - Continuing primidone at bedtime without dose escalation; prescription refilled and sent to [facility] in [place]. - Patient denies significant side effects; no daytime addition at present as tremor is not functionally impairing. - Counseling provided on potential future option to add a morning dose if tremor significantly worsens. - Next neurology follow-up in one year. 2. Cervicalgia: - Chronic neck pain with episodic right hand paresthesia, occasionally positional in nature. - Previous MRI showed no urgent surgical findings; conservative management pursued. - Recommended referral to physical therapy (e.g., [facility] or [facility]) for targeted neck exercises and possible dry needling if patient opts to proceed. - Advised that if symptoms worsen or if weakness develops, EMG and nerve conduction studies may be indicated to localize any nerve involvement. Updated Movement Disorders Medication Schedule: Medications Bed metoprolol ER 50 mg BID primidone 250 mg 1 Return at or around: 04/14/26 Thank you for allowing me to be part of the clinical care of this patient! I look forward to continued participation in the patient s care with you. Please do not hesitate to call with any questions. Sincerely, Marko Wood MD [facility] NoteHNO ID: [id number] Author: ISABELA MURPHY APRN.SHINGLE INSPECTOR Service: ? 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 Cecelia is a 74 year old who presents for an annual gynecologic exam with complaints, x3 yrs no sexual drive.. Postmenopausal: Yes since age 50's HRT use: Yes, How lon yrs. Vaginal Hysterectomy 1982 Dx uterine cancer History of abnormal pap: Yes, history of abnormal PAP smears Last mammogram: 11/2024 normal History of abnormal mammogram: Yes Pt reported bilateral breast bx. 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 - entire workup negative. No longer happening. IBS (irritable bowel syndrome) Iron deficiency anemia, unspecified ? related to UGI source from NSAID's Mixed hyperlipidemia Palpitations PMR (polymyalgia rheumatica) (HCC) Raynaud's disease /phenomenon Sciatica Steroid long-term use Thyroid nodule Tobacco use disorder PAST SURGICAL HISTORY Procedure Laterality Date ABDOMINAL SURGERY HX APPENDECTOMY 1983 incidental APPENDECTOMY HX BREAST SURGERY HX CATARACT EXTRACTION HX bilateral CHOLECYSTECTOMY Cholecystectomy COLONOSCOPY 2012 COLONOSCOPY FLX DX W/COLLJ SPEC WHEN PFRMD 05/09/2021 ESOPHAGOGASTRODUODENOSCOPY TRANSORAL DIAGNOSTIC 07/05/2015 EGD ESOPHAGOGASTRODUODENOSCOPY TRANSORAL DIAGNOSTIC 05/09/2021 EYE SURGERY HX FINE NEEDLE ASPIRATION 04/30/2023 Thyroid FNA FRACTURE SURGERY LEFT HEART CATH,PERCUTANEOUS 2011 Cardiac cath, L heart. Normal PAST SURGICAL HISTORY OF 1987 ulnar ner transferred PAST SURGICAL HISTORY OF 1990 bartholin cyst on vagina PAST SURGICAL HISTORY OF 2005 bone spur to left shoulder PAST SURGICAL HISTORY OF 2007 left knee -- torn meniscus ([place]) PAST SURGICAL HISTORY OF 2011 ORIF R ankle PAST SURGICAL HISTORY OF 2000 Bartholin cyst excised TOTAL ABDOMINAL HYSTERECT W/WO RMVL TUBE OVARY 1982 cervical cancer, still has ovaries VAGINAL HYSTERECTOMY FAMILY HISTORY Problem Relation Age of Onset Diabetes Father late in life Coronary Artery Disease Father Hx of [place], age 71 Tremor Mother Hypertension Mother Cancer Brother Cancer Brother lymphoma - 55; h/o kidney transplant Cancer Brother Mestatic Aneurysm Sister brain Lung Cancer Sister dies at 52 Bipolar disorder Son Tremor Son Colon Cancer Niece Tremor Niece Hyperlipidemia No Family History Blood Clots No Family History Blood Disease No Family History Factor 5 Leiden No Family History DVT No Family History Stroke No Family History Schizophrenia No Family History Systemic Lupus Erythematosus No Family History Multiple Sclerosis No Family History Alzheimer's Disease No Family History Parkinson?s Disease No Family History SOCIAL HISTORY Social History Tobacco Use Smoking status: Every Day Current packs/day: 1.00 Average packs/day: 1 pack/day for 35.0 years (35.0 ttl pk-yrs) Types: Cigarettes Smokeless tobacco: Never Vaping Use Vaping status: Never Used Substance Use Topics Alcohol use: No Drug use: No REVIEW OF SYSTEMS Abdomen: No abdominal pain, nausea, vomiting, diarrhea, or constipation. No bloating, early satiety, indigestion, or increased flatulence. Bladder: No dysuria, gross hematuria, urinary frequency, urinary urgency, or incontinence Breast: No breast lumps, nipple d/c, overlying skin changes, redness or skin retraction Allergies and current medication updated:Yes SENSITIVE EXAM: The sensitive examination was discussed with the Patient or Patient's Authorized Business Law Instructor. As applicable, any other physician, advance practice provider, medical student, or other health professional student that will be observing or involved in the sensitive examination for educational or training purposes was discussed with the Patient or Authorized Business Law Instructor. The Patient or Authorized Business Law Instructor has agreed to proceed with the sensitive examination. (Sensitive examination includes inspection and/or palpation of the breasts, pelvis, prostate and anorectal regions). EXAM: BP 126/88 Ht 5' 4.685 (1.64m) Wt 137 lb 3.2 oz (62.2kg) BMI 23.05 kg/(m2). G (more content not included)...[facility]08-04-2025 NotePatient Outreach (PULMMN) CECELIA QUIROZ ([id number]) 1950 F Date Time Provider Department 03/23/25 JOVITA SUERO During your visit today, we recorded the following information about you: Allergies As of Date: 03/23/2025 Noted Allergy Reaction SULFASALAZINE 03/26/2024 2 - Rash Date Reviewed: 02/13/2025 Reviewed by: Angela Multani MA - Fully Assessed Visit Diagnosis:Tobacco abuse [Z72.0] Order(s):[facility] [[id number]] Order #: [id number]: 1 FUTURE Prescriptions as of 03/26/2025 - denosumab (PROLIA SQ) Inject subcutaneously once every 6 months. - metoprolol succinate ER (TOPROL XL) 50 mg 24 hr tablet Take 1 tablet by mouth two times a day. - SARilumab (KEVZARA) 200 mg/1.14 mL injection Inject 200mg (1 syringe) subcutaneously every 2 weeks. - predniSONE (DELTASONE) 10 mg tablet Take 1 tablet by mouth once daily. Take in the morning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 Procedure Laterality Date ABDOMINAL SURGERY HX APPENDECTOMY 1982 incidental APPENDECTOMY HX BREAST SURGERY HX CATARACT EXTRACTION HX bilateral CHOLECYSTECTOMY Cholecystectomy COLONOSCOPY 2012 COLONOSCOPY FLX DX W/COLLJ SPEC WHEN PFRMD 05/09/2021 ESOPHAGOGASTRODUODENOSCOPY TRANSORAL DIAGNOSTIC 07/05/2015 EGD ESOPHAGOGASTRODUODENOSCOPY TRANSORAL DIAGNOSTIC 05/09/2021 EYE SURGERY HX FINE NEEDLE ASPIRATION 04/30/2023 Thyroid FNA FRACTURE SURGERY LEFT HEART CATH,PERCUTANEOUS 2011 Cardiac cath, L heart. Normal PAST SURGICAL HISTORY OF 1987 ulnar ner transferred PAST SURGICAL HISTORY OF 1990 bartholin cyst on vagina PAST SURGICAL HISTORY OF 2005 bone spur to left shoulder PAST SURGICAL HISTORY OF 2007 left knee -- torn meniscus ([facility]) PAST SURGICAL HISTORY OF 2011 ORIF R ankle PAST SURGICAL HISTORY OF 2000 Bartholin cyst excised TOTAL ABDOMINAL HYSTERECT W/WO RMVL TUBE OVARY 1982 cervical cancer, still has ovaries VAGINAL HYSTERECTOMY FAMILY HISTORY Problem Relation Age of Onset Diabetes Father late in life Coronary Artery Disease Father Hx of [place], age 71 Tremor Mother Hypertension Mother Cancer Brother Cancer Brother lymphoma - 55; h/o kidney transplant Cancer Brother Mestatic Aneurysm Sister brain Lung Cancer Sister dies at 52 Bipolar disorder Son Tremor Son Colon Cancer Niece Tremor Niece Hyperlipidemia No Family History Blood Clots No Family History Blood Disease No Family History Factor 5 Leiden No Family History DVT No Family History Stroke No Family History Schizophrenia No Family History Systemic Lupus Erythematosus No Family History Multiple Sclerosis No Family History Alzheimer's Disease No Family History Parkinson s Disease No Family History Social History: Alcohol Use: No Tobacco Use: Types: Cigarettes Drug Use: No Employer And Job Title: [employer]) Years Of Education Completed: 12 years Marital Status: with 2 children Patient Entered Questionnaires PROMIS Score Percentiles 2024 11/14/2024 02/11/2025 PROMIS Global Health Scale Physical Health Percentile 31 22* 22* Mental Health Percentile 43 34 43 Patient-reported 01/27/2024 03/17/2024 02/11/2025 Physical Health Physical Function Percentile 42 27* 24* Pain Interference Percentile 27* 27* 16* Percentiles provide an indication of how the patient's score ranks in relation to the general population. Higher percentile rankings indicate better function/quality of life. 50th percentile is the average of the general population and indicates half of respondents had a worse score. > 31st percentile is within normal limits or better * < 31st percentile is at least SD worse than population, which may be clinically relevant < 16th percentile is at least 1 SD worse than population and warrants attention Review of Systems Constitutional: (-) Fever (-) Night Sweats (-) Weight Gain (-) Weight Loss (+) Fatigue Cardiovascular: (-) Chest Pain (-) Palpitations (-) Lightheadedness (-) Swelling of Ankles (-) Hx Heart Surgery (-) Pacemaker Respiratory: (-) Shortness of Breath (-) Cough (-) Wheezing (+) Snoring Gastrointestinal: (-) Incontinence (+) Abdominal Pain (-) Diarrhea (-) Constipation (-) Nausea/Vomiting (-) Heart Burn Endocrine: (-) Thyroid Disorder (-) Diabetes Hematologic: (-) Prolonged Bleeding (-) Easy Bruising Genitourinary: (-) Incontinence (-) Frequency (-) Urinary Urgency Skin: (-) Rashes (-) Itching (-) Other Lesions Neurologic: (+) Headache (-) Double Vision (-) Confusion (-) Paralysis (-) Vertigo (-) Syncope Psychiatric: (-) Depression (-) Anxiety ////// Chief Complaint Patient presents with: Neck Pain New Patient Physical Examination Pulse 77 Wt 138 lb 14.2 oz (63.0kg) SpO2 96% General:well appearing and alert Skin: Skin color, texture, turgor normal, no rashes or lesions HEENT: normal Cardiovascular: Regular, rate and rhythm Lungs: Normal respiratory rate and rhythm, unlabored on room air Musculoskeletal: Neck: Tenderness over the cervical spine, Tenderness over the bilateral cervical paraspinal muscles, ROM intact with pain reproduced on the left trapezius Extremities: Extremities normal. No deformities, edema, or skin discoloration Neurological: Mental Status: alert Motor Strength: Motor strength and tone are 5/5 all throughout. Sensory: Sensation was intact to light touch all throughout. Gait: Antalgic. Trigger points: right occipital, bilateral paravertebral cervical muscles, and trapezius muscles. Assessment Assessment : Cecelia Quiroz is a 74-year-old female presenting for evaluation of chronic neck pain. Cecelia reports experiencing neck pain for several months, which has progressively worsened and is now present daily. The pain is most severe on the right side of the neck and worsens as the day progresses, causing significant discomfort by evening. She initially attributed the pain to her pillow and attempted to alleviate it by changing pillows, but this did not provide relief. She has not tried heat or ice therapy. The pain radiates from the left shoulder up into the head, described as a spasm- like sensation thatcan occur spontaneously or be triggered by yawning. This radiating pain is associated with headaches and a sensation of pressure in the head, as well as a feeling of the eyes sinking in. She does not endorse pain in the left side of the neck itself. Cecelia has been taking Advil for pain relief, although she is aware that it may not be recommended due to her current prednisone 10 mg daily regimen. She has also used Biofreeze and receives deep tissue massages, which sometimes provide temporary relief. She has not used muscle relaxers and does not express interest in them due to concerns about potential side effects on her sleep. She does not report pain when touching her chin to her chest or looking up, but notes limited rangeof motion when turning her head to the left. Tilting her head to the side causes a pulling sensation down her neck. She has not participated in physical therapy for her neck. In 2019, Cecelia underwent a cervical epidural performed by Dr. Taylor and left-sided facet injections by Dr. Chand, but she does not recall these procedures. She expresses willingness to consider injections again if recommended. Encounter Diagnosis ICD-10-CM 1. Spinal stenosis of cervical region M48.02 MRI CERVICAL SPINE WO IVCON 2. Neck pain M54.2 3. Myalgia M79.10 PROMIS-10 Global Health In general, would you say your health is:: Good In general, would you say your quality of life is:: Good In general, how would you rate your physical health?: Good In general, how would you rate your mental health, including your mood and your ability to think?: (!) Good In general, how would you rate your satisfaction with your social activities and relationships?: Good In general, please rate how well you carry out your usual social activities and roles. (This includes activities at home, at work and in your community, and responsibilities as a parent, child, spouse, employee, friend, etc.): Good To what extent are you able to carry out your everyday physical activities such as walking, climbing stairs, carrying groceries, or moving a chair?: (!) Mostly In the past 7 days, how often have you been bothered by emotional problems such as feeling anxious,depressed or irritable?: Never In the past 7 days, how would you rate your fatigue on average?: Moderate In the past 7 days, how would you rate your pain on average?: (!) 6 PROMIS-10 physical raw score: 13 Global Physical Health Raw Score: 13 PROMIS-10 physical T score: 42.3 Global Physical Health T Score: 42.3 PROMIS-10 Physical Health Percentile: 22 Global Physical Health Percentile: 22 PROMIS-10 mental raw score: 14 Global Mental Health Raw Score: 14 PROMIS-10 mental T score: 48.3 Global Mental Health T Score: 48.3 PROMIS-10 Mental Health Percentile: 43 Global Mental Health Percentile: 43 PROMIS-10 pain score: 3 0-10 Standard Pain Scale: 3 (02/11/25 2336 : User, Dejuan) 02/11/2025 PROMIS CAT Pain Interference PROMIS Pain Interference T-Score (range: 10 - 90) 60 (mild) PROMIS Pain Interference Percentile 16 PROMIS Adult Short Form-Global Health Score (Mental) 48.3 (Very Good) Descriptive Summary for PROMIS Physical Function T-score = 43 (Percentile 24) Little difficulty - Walk more than a mile (1.6 km). Little difficulty - Do chores such as vacuuming or yard work. OARRS Report: Reviewed: The patient's OARRS report was reviewed and is consistent with the reportedmedication use. Plan Injection history was reviewed. Medication use and compliance were reviewed. 1. Ordered cervical MRI 2. No meds prescribed today 3. Interventional procedure options discussed. None at this time 4. Encouraged regular home exercise program. 5) Once MRI is complete, will have Dr. Taylor review for further recommendations The level of medical decision making for this encounter was moderate level. I spent a total of 30 minutes on the date of the service which included preparing to see the patient, [id number] patient care, completing clinical documentation, performing a medically appropriate examination, and ordering medications, tests, or procedures. 1. This document has been created with the use of voice recognition technology. It may contain inaccuracies: (e.g. misspellings, inaccurate syntax or word sense) that have escaped review. 2. The provider, nursing staff and medical assistants are a major part of YOUR TREATMENT TEAM and will be handling your phone calls and inquiries, if any. Unless explicitly told otherwise at the timeof your office visit, your study results and ensuing treatment plans will be discussed during your follow-up appointment. If you do not have a follow-up appointment and wish to discuss any issues, please set up an appointment. 3. It is my practice to not fill disability or any other insurance-related forms/documentation. Allof the office notes, study results, and other pertinent documentation generated as part of your evaluation will be available to you and to your Primary Care Physician (PCP). Use of this material to complete such forms will be at the discretion of your PCP/referring physician. The above plan and management options were discussed at length with patient. Patient is in agreement with the above and verbalized understanding. Dorothy Pisano APRN, CNP February 13, 2025 documented in this encounterSum[facility] NoteHNO ID: [id number] Author: DOROTHY PISANO APRN.CNP Service: ? Author Type: Nurse Practitioner Type: Progress Notes Filed: 02/13/2025 13:10 Note Text: [facility] Date: February 13, 2025 - 12:37 PM Cecelia Quiroz is seen in consultation requested by Dr. Palma Lovett for an opinion regarding chronic neck pain. My final recommendations will be communicated back to the requesting physician by way of shared medical record or via US mail. Chief Complaint: neck Subjective Cecelia Quiroz, is a 74 year old female who presents with neck pain. The pain started several months ago The pain onset was gradual. The patient states that the current pain is continuous. Her pain is located in the bilateral posterior cervical region and right occipital region and does not radiate.. ////// The pain intensity is currently rated 5 on a scale of 10. The pain is exacerbated by no change in pain symptoms with position or activity. Currently, the symptoms do not interfere with activities of daily living (ADLs). PAIN EVALUATION 02/11/2025 2333 Pain Level: 7 Pain Location: Neck Description: Pressure;Spasm;Tightness Duration Amount of Time: 6 Duration Units: Months Frequency: Continuous Intervention/Comfort measure: Medication Prior pain treatment has included: Medication(s): She has tried the following for relief of her symptoms: Advil Physical Therapy: She has not had physical therapy for her current symptoms. Spinal Injections: She has gotten prior spinal injections. She does not remember having these and does not remember if they provided relief. 11/21/18 - C7-T1 interlaminar FELIPA by Dr. Taylor 03/17/19 - Intraarticular left C4, C5, C6 facet injection by Dr. Chand Other: None ALLERGIES Allergen Reactions Sulfasalazine Rash Current Medications: Pain medications reviewed and reconciled in the medication list: Yes. Current Outpatient Medications Medication Sig metoprolol succinate ER (TOPROL XL) 50 mg 24 hr tablet Take 1 tablet by mouth two times a day. predniSONE (DELTASONE) 10 mg tablet Take 1 tablet by mouth once daily. Take in the morning with food. primidone (MYSOLINE) 250 mg tablet Take 1 tablet by mouth daily at bedtime. travoprost (TRAVATAN Z) 0.004 % ophthalmic drops 1 Drop. loperamide (IMODIUM) 2 mg cap(s) Take 2 mg by mouth four times daily as needed. SARilumab (KEVZARA) 200 mg/1.14 mL injection Inject 200mg (1 syringe) subcutaneously every 2 weeks. (Patient not taking: Reported on 02/13/2025) predniSONE (DELTASONE) 1 mg tablet Take 7 mg once a day (using 1 mg and 5 mg tablets) (Patient not taking: Reported on 02/13/2025) predniSONE (DELTASONE) 5 mg tablet Using 1 mg and 5 mg tablets, please take 7mg once a day (Patient not taking: Reported on 02/13/2025) Blood Pressure Test Kit-Large (QUICK RESPONSE BP MONITOR) 1 Each once daily. Current Facility-Administered Medications Medication Dose Route Frequency denosumab 60 mg injection (PROLIA) 60 mg SUBCUTANEOUS ONCE (AMB - Up to 30 Days) denosumab 60 mg injection (PROLIA) 60 mg SUBCUTANEOUS ONCE (AMB - Up to 30 Days) PAST MEDICAL HISTORY Diagnosis Date Actinic keratosis Autoimmune disease (HCC) Cancer (HCC) 1982 Uterine Cephalalgia Cholelithiasis Depression Diarrhea Disorder of bone and cartilage, unspecified Diverticulitis of colon (without mention of hemorrhage)(562.11) 2003 Dysphagia Essential hypertension 12/28/2021 GCA (giant cell arteritis) (HCC) bx negative GERD (gastroesophageal reflux disease) Glaucoma Hematuria 1999 had workup including cystoscopy, etc. - entire workup negative. No longer happening. IBS (irritable bowel syndrome) Iron deficiency anemia, unspecified ? related to UGI source from NSAID's Mixed hyperlipidemia Palpitations PMR (polymyalgia rheumatica) (HCC) Raynaud's disease /phenomenon Sciatica Steroid long-term use Thyroid nodule Tobacco use disorder PAST SURGICAL HISTORY Procedure Laterality Date ABDOMINAL SURGERY HX APPENDECTOMY 1982 incidental APPENDECTOMY HX BREAST SURGERY HX CATARACT EXTRACTION HX bilateral CHOLECYSTECTOMY Cholecystectomy COLONOSCOPY 2012 COLONOSCOPY FLX DX W/COLLJ SPEC WHEN PFRMD 05/09/2021 ESOPHAGOGASTRODUODENOSCOPY TRANSORAL DIAGNOSTIC 07/05/2015 EGD ESOPHAGOGASTRODUODENOSCOPY TRANSORAL DIAGNOSTIC 05/09/2021 EYE SURGERY HX FINE NEEDLE ASPIRATION 04/30/2023 Thyroid FNA FRACTURE SURGERY LEFT HEART CATH,PERCUTANEOUS 2011 Cardiac cath, L heart. Normal PAST SURGICAL HISTORY OF 1987 ulnar ner transferred PAST SURGICAL HISTORY OF 1990 bartholin cyst on vagina PAST SURGICAL HISTORY OF 2005 bone spur to left shoulder PAST SURGICAL HISTORY OF 2007 left knee -- torn meniscus ([facility]) PAST SURGICAL HISTORY OF 2011 ORIF R ankle PAST SURGICAL HISTORY OF 2000 Bartholin cyst excised TOTAL ABDOMINAL HYSTERECT W/WO RMVL TUBE OVARY 1982 cervical cancer, still has (more content not included)...[facility]06-25-2025 History of Present illness Narrative* Eliana Guzmán - 02/11/2025 11:54 AM EDT [facility] received prescription(s) for Kevzara from Palma Lovett APRN, SHINGLE INSPECTOR's office. Benefits investigation was conducted, indicating that a prior authorization is required by patient's insurance plan with [employer]. Encounter will be updated once prior authorization has been submitted by [facility]. Eliana Guzmán [facility] documented in this encounterSumma [facility]06-25-2025 NoteHNO ID: [id number] Author: KING RAZO, [facility] Service: ? Author Type: Pharmacist Type: Progress Notes Filed: 02/18/2025 15:39 Note Text: Patient cannot afford the Kevzara copays and will need to apply for the sales record clerk free drug program. Patient and provider have been emailed copies of the applications with instructions to submit paperwork directly to the program. No further action by [facility] at this time. King Razo, PharmD Clinical Pharmacist [facility] Pool: P [facility] Pool #: [id number] [facility]06-25-2025 NoteHNO ID: [id number] Author: ?, ?, ? Service: ? Author Type: ? Type: Progress Notes Filed: 02/12/2025 17:20 Note Text: [facility] received prescription(s) for Kevzara from Palma Lovett APRN, CNP's office. Benefits investigation was conducted, indicating that a prior authorization is required. PA was initiated and pending review. Plan Name: Paula Plan Agent/Good: CMM - [id number] Case: [id number] Timeline: Standard Eliana Guzmán [facility]06-25-2025 NoteHNO ID: [id number] Author: ?, ?, ? Service: ? Author Type: ? Type: Progress Notes Filed: 02/11/2025 11:56 Note Text: [facility] received prescription(s) for Isra from Palma Lovett APRN, CNP's office. Benefits investigation was conducted, indicating that a prior authorization is required by patient's insurance plan with [employer]. Encounter will be updated once prior authorization has been submitted by [facility]. Eliana Guzmán [facility]06-25-2025 NoteHNO ID: [id number] Author: ?, ?, ? Service: ? Author Type: ? Type: Progress Notes Filed: 02/16/2025 15:11 Note Text: Isra BRAY was approved with details listed below: Plan Name: Paula KATARINA reference number: [id number] Approval Dates: through 08/19/25 The first copay is high (>$1500) due to the $2000 maximum out of pocket limit or cap on prescription drug expenses. It is estimated that the patient's copays will be somewhat similar until (s)he meets the cap after which future fills are expected to be ~$0 monthly thereafter. There is no funding available for patient's diagnosis at this time. Patient will be assessed for eligibility to [employer] [place] Assistance Program. Note will be updated once pt is contacted. The new P program will also be discussed as appropriate for patients eligible as an additional option to pursue. Onelia Garay natural sciences department chair, Channel Worker, Inflammatory/Allergy [facility] P: [phone] F: [phone]06-[facility] History of Present illness Narrative* Adri Becerra, RT(R) - 02/06/2025 3:45 PM EDT Radiology Service Progress Note PATIENT NAME: Cecelia Quiroz DATE OF SERVICE: February 06, 2025 TIME: 3:58 PM PATIENT IDENTITY VERIFICATION COMPLETED USING TWO (2) IDENTIFIERS: Name and Date of confirmedby patient verbally. FALL SCREENING: Has the patient had 2 falls in the last year or 1 fall with injury or currently using an Ambulatory Assistive Device (Walker, Cane, Wheelchair, Crutches, etc.)? No PATIENT GENDER DATA: Assigned female at . status: : No status:NO. PATIENT RELEVANT IMPLANT DATA REVIEWED: Not Applicable PATIENT PRESENTS WITH AN IMPLANTABLE OR ATTACHED SENIOR WINDOWS SYSTEMS ENGINEER: No RADIOLOGY DEPARTMENT: General X-ray: Exam(s) Completed: Spine X-Ray(s): Cervical AP / LAT / OBL PERIPHERAL IV DATA: Not applicable SIGNED BY: TYRONE Germain) February 06, 2025 3:58 PM documented in this encounterSum[facility]06-20-2025 NoteHNO ID: [id number] Author: ADRI BECERRA RT(R) Service: ? Author Type: Technologist Type: Progress Notes Filed: 02/06/2025 15:59 Note Text: Radiology Service Progress Note PATIENT NAME: Cecelia Quiroz DATE OF SERVICE: February 06, 2025 TIME: 3:58 PM PATIENT IDENTITY VERIFICATION COMPLETED USING TWO (2) IDENTIFIERS: Name and Date of confirmed by patient verbally. FALL SCREENING: Has the patient had 2 falls in the last year or 1 fall with injury or currently using an Ambulatory Assistive Device (Walker, Cane, Wheelchair, Crutches, etc.)? No PATIENT GENDER DATA: Assigned female at . status: : No status: NO. PATIENT RELEVANT IMPLANT DATA REVIEWED: Not Applicable PATIENT PRESENTS WITH AN IMPLANTABLE OR ATTACHED SENIOR WINDOWS SYSTEMS ENGINEER: No RADIOLOGY DEPARTMENT: General X-ray: Exam(s) Completed: Spine X-Ray(s): Cervical AP / LAT / OBL PERIPHERAL IV DATA: Not applicable SIGNED BY: TYRONE Germain) February 06, 2025 3:58 [facility]06-20-2025 History of Present illness Narrative* Palma Lovett, CARMINA.SHINGLE INSPECTOR - 02/06/2025 3:30 PM EDT HPI: To review, Cecelia Quiroz is a 74 year old female with history of PUD from NSAIDs *Re: BMD: - In January, switched from fosamax to prolia given significant decline in BMD at the R hip overall in range of osteopenia *Re: GCA - 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 With negative TA biopsies x2 - From Jun-Sep, on MTX which was stopped due to inefficacy - In October, started on acemtra which was stopped after 3 infusions - In Apr, fell off a trailer and broke L humerus - In Jul, seen by Dr. Gonzalez. On baseline prednisone 10mg/day. Given medrol dose pack for flarewith plans to return to prednisone 10mg/day thereafter. She was hesitant to reduce baseline pred 10mg/day further given previous attempts to taper led to flares of pain and headache - On 07/28/19, received prolia - In October, reported baseline pain in the R>L shoulders/arms. Not flaring. On pred 10mg/day - In January and Apr, reported stable PMR on pred 10mg/day - In Aug, reported taking pred 10mg/day. Taking forteo. No interim fracture. - In February, started on HCQ given active pain. pred 10mg/day continued - On 05/16/21, reported no improvement in L shoulder, neck and base of skull pain w/pred 20mg/day. Referred to spine and PT - In May reported taking pred 10mg/day. Continued to have significant pain awakening her at night, located in L side of the neck/base of skull. Prescribed a pred 40mg taper - In Aug, reported no change with increased pred dose. On pred 10mg/day at the time of the visit. Was off HCQ so advised to resume - In November, reported no change on HCQ. Remained on pred 10mg/day. Resumed forteo 3 months prior(was off x2 months prior to that as she had run out) - In February, reported feeling the same. On pred 10mg/day. Was to have stopped forteo in last but was still taking it. Forteo stopped, last dose in February. Was advised to resume prolia but was waiting for surgery clearance given ankle surgery. Off HCQ. - In Mar s/p R ankle surgery (hardware removal) - In Apr, prednisone course helped a lot. Started MTX SC - In Jul, reported MTX didn't help. Hurt worse and felt nausea/fatigue with it. On pred 10mg/day - In Jan, reported flares on lower than pred 10mg/day so 10mg/day continued. Had to temporarilyincrease to 40mg for a flare which helped, then back to 10mg/day - In Jan, Jul and Jan, given prolia - In Jan, advised to start HCQ while on pred 10mg/day. Had taken one dose of 20mg a couple of days prior for increased upper back and R>L proximal arm pain, which helped. Back on 10mg/day. - at [facility], reports she had diarrhea and dizziness with the first week of HCQ. Tried 1/2 tablet everyother day with the same issue. - Hx of PUD - Last plaquenil eye exam normal in Sep (had been off HCQ-resuming today) PAST MEDICAL HISTORY Diagnosis Date Actinic keratosis Autoimmune disease (HCC) Cancer (HCC) 1982 Uterine Cephalalgia Cholelithiasis Depression Diarrhea Disorder of bone and cartilage, unspecified Diverticulitis of colon (without mention of hemorrhage)(562.11) 2003 Dysphagia Essential hypertension 12/28/2021 GCA (giant cell arteritis) ([facility]) bx negative GERD (gastroesophageal reflux disease) Glaucoma Hematuria 1999 had workup including cystoscopy, etc. - entire workup negative. No longer happening. IBS (irritable bowel syndrome) Iron deficiency anemia, unspecified ? related to UGI source from NSAID's Mixed hyperlipidemia Palpitations PMR (polymyalgia rheumatica) ([facility]) Raynaud's disease /phenomenon Sciatica Steroid long-term use Thyroid nodule Tobacco use disorder PAST SURGICAL HISTORY Procedure Laterality Date ABDOMINAL SURGERY HX APPENDECTOMY 1982 incidental APPENDECTOMY HX BREAST SURGERY HX CATARACT EXTRACTION HX bilateral CHOLECYSTECTOMY Cholecystectomy COLONOSCOPY 2012 COLONOSCOPY FLX DX W/COLLJ SPEC WHEN PFRMD 05/09/2021 ESOPHAGOGASTRODUODENOSCOPY TRANSORAL DIAGNOSTIC 07/05/2015 EGD ESOPHAGOGASTRODUODENOSCOPY TRANSORAL DIAGNOSTIC 05/09/2021 EYE SURGERY HX FINE NEEDLE ASPIRATION 04/30/2023 Thyroid FNA FRACTURE SURGERY LEFT HEART CATH,PERCUTANEOUS 2012 Cardiac cath, L heart. Normal PAST SURGICAL HISTORY OF 1987 ulnar ner transferred PAST SURGICAL HISTORY OF 1990 bartholin cyst on vagina PAST SURGICAL HISTORY OF 2005 bone spur to left shoulder PAST SURGICAL HISTORY OF 2007 left knee -- torn meniscus ([place]) PAST SURGICAL HISTORY OF 2011 ORIF R ankle PAST SURGICAL HISTORY OF 2000 Bartholin cyst excised TOTAL ABDOMINAL HYSTERECT W/WO RMVL TUBE OVARY 1982 cervical cancer, still has ovaries VAGINAL HYSTERECTOMY ALLERGIES Allergen Reactions Sulfasalazine Rash INTERVAL HISTORY She is here for follow up and prolia. She reports spasms to neck that radiates to her head and L shoulder, that started 6 months ago. Shehas seen a chiropractor, which did not help. She stopped HCQ and started SSZ after the MAGGIE. She discontinued SSZ after a week due to a rash to the R upper extremity. Last prolia was 08/05/2024, which she tolerated well. No falls or fractures since MAGGIE. No invasive dental work in the last three months and none planned for the next three months. Last dental exam was summer 2023. She is taking prednisone 10 mg daily. She reports tapering the prednisone to 3 mg daily, but did not tolerate it. She reports increased pain, so she increased the dose to 40 mg daily for a few days, then tapered back down to 10 mg daily. Neck pain did not improve with increased prednisone dose. Sites of pain: neck, shoulders, pressure to head, pain rated 5/10 Muscle weakness: b/l upper and lower extremities Headaches: no temporal headaches Scalp tenderness: none Jaw claudication: none Vision changes: none Joint swelling: ? ankles EMS: none No recent infections. Tolerating meds. REVIEW OF SYSTEMS GENERAL: No fevers HEENT: Negative for frequent or significant headaches RESPIRATORY: Negative for cough, wheezing, or shortness of breath CARDIOVASCULAR: Negative for chest pain GI: No nausea, vomiting, had diarrhea yesterday : No history of dysuria No gross hematuria or blood in stool No mouth sores MEDICATIONS: Current Outpatient Medications Medication Sig metoprolol succinate ER (TOPROL XL) 50 mg 24 hr tablet Take 1 tablet by mouth two times a day. predniSONE (DELTASONE) 1 mg tablet Take 7 mg once a day (using 1 mg and 5 mg tablets) predniSONE (DELTASONE) 5 mg tablet Using 1 mg and 5 mg tablets, please take 7mg once a day predniSONE (DELTASONE) 10 mg tablet Take 1 tablet by mouth once daily. Take in the morning with food. primidone (MYSOLINE) 250 mg tablet Take 1 tablet by mouth daily at bedtime. Blood Pressure Test Kit-Large (QUICK RESPONSE BP MONITOR) 1 Each once daily. travoprost (TRAVATAN Z) 0.004 % ophthalmic drops 1 Drop. loperamide (IMODIUM) 2 mg cap(s) Take 2 mg by mouth four times daily as needed. Current Facility-Administered Medications Medication Dose Route Frequency [START ON 02/06/2025] denosumab 60 mg injection (PROLIA) 60 mg SUBCUTANEOUS ONCE (AMB - Up to 30 Days) PHYSICAL EXAMINATION: BP 119/67 Pulse (!) 59 Temp 36.3 C (97.4 F) (Temporal) Ht 166.4 cm (5' 5.5) Wt 62.6 kg (138 lb) BMI 22.62 kg/m General appearance: Well appearing, alert, in no acute distress, well-hydrated, well nourished. Skin: Skin color, texture, turgor normal, no suspicious rashes or lesions Head: no tenderness to temples or scalp Eyes: Anicteric sclera. Oropharynx: Lips, mucosa, and tongue normal, teeth and gums normal, oropharynx normal Neck: Supple, no adenopathy Back: Normal exam Lungs: Lungs clear to auscultation. No wheezing, rhonchi, rales. Heart: RRR without murmur Abdomen: Normal abdominal exam, Abdomen soft, non-tender. Bowel sounds normal. No masses, organomegaly Neuro: Gait normal. Sensation grossly intact. No tenderness to spine She is able to make a complete fist with both hands No tenderness to upper or lower extremity muscles Muscle strength intact Limited painful ROM to cervical spine FAMILY HISTORY Problem Relation Age of Onset Diabetes Father late in life Coronary Artery Disease Father Hx of [place], age 71 Tremor Mother Hypertension Mother Cancer Brother Cancer Brother lymphoma - 55; h/o kidney transplant Cancer Brother Mestatic Aneurysm Sister brain Lung Cancer Sister dies at 52 Bipolar disorder Son Tremor Son Colon Cancer Niece Tremor Niece Hyperlipidemia No Family History Blood Clots No Family History Blood Disease No Family History Factor 5 Leiden No Family History DVT No Family History Stroke No Family History Schizophrenia No Family History Systemic Lupus Erythematosus No Family History Multiple Sclerosis No Family History Alzheimer's Disease No Family History Parkinson s Disease No Family History SOCIAL HISTORY: Lives in [place]. Works. Family lives in [place] Tobacco use: 1 ppd Alcohol use: None *October Widespread Pain Index: 12 (0-19) Symptoms Severity Scale: 4 (0-12) WPI>7 and SS Scale>5 OR WPI 3-6 and SS Scale >9 consistent with fibromyalgia Labs reviewed and discussed with the patient: Latest Ref Rng 01/20/2025 WBC 3.70 - 11.00 k/uL 10.19 RBC 3.90 - 5.20 m/uL 4.06 Hemoglobin 11.5 - 15.5 g/dL 12.8 Hematocrit 36.0 - 46.0 % 39.1 MCV 80.0 - 100.0 fL 96.3 MCH 26.0 - 34.0 pg 31.5 MCHC 30.5 - 36.0 g/dL 32.7 RDW-CV 11.5 - 15.0 % 13.2 Platelet Count 150 - 400 k/uL 266 MPV 9.0 - 12.7 fL 11.0 Absolute nRBC <0.01 k/uL <0.01 Creatinine 0.58 - 0.96 mg/dL 0.73 eGFR >=60 mL/min/1.73m 86 ALT 7 - 38 U/L 11 AST 13 - 35 U/L 17 Calcium 8.5 - 10.2 mg/dL 9.9 Vitamin D 25 Hydroxy 31.0 - 80.0 ng/mL 34.9 Latest Ref Rng 10/22/2023 WSR 0 - 20 mm/hr 54 (H) CRP <0.9 mg/dL 1.3 (H) *Apr neg quant gold, hep b/c Component Latest Ref Rng & Units 11/21/2019 01/30/2020 04/30/2020 Creatinine 0.58 - 0.96 mg/dL 0.90 eGFR- >60 eGFR-All Other Races . >60 Calcium 8.5 - 10.2 mg/dL 9.4 PTH, Intact 15 - 65 pg/mL 36 Vitamin D 25 Hydroxy 31.0 - 80.0 ng/mL 36.6 WSR 0 - 20 mm/hr 54 (H) CRP <0.9 mg/dL 0.5 STUDIES: *February DXA- IMPRESSION: THE LOWEST T-SCORE IS -2.2 IN THE LEFT HIP Lumbar spine (L1-L4): 1.005 g/cm2 , T-score -0.4 , Z-score 1.9 . 0.120 g/sq cm improved Left Femoral Neck: 0.603 g/cm2 , T-score-2.2 , Z-score-0.3 . Not significantly changed Left Total Hip: 0.789 g/cm2 , T-score-1.3 , Z-score 0.4 . Right Femoral Neck: 0.660 g/cm2 , T-score -1.7 , Z-score0.3 . 0.072 g/sq cm improved Right Total Hip: 0.769 g/cm2 , T-score-1.4 , Z-score 0.2 *May CXR- no acute changes *January DXA- IMPRESSION: THE LOWEST T-SCORE IS -2.1 IN THE RIGHT HIP 1) DIAGNOSIS (based on BMD alone): OSTEOPENIA . There has been no significant interval change Lumbar spine (L1-L4): 1.132 g/cm2 , T-score -0.4, Z-score 1.5 . Left Femoral Neck: 0.776 g/cm2 , T-score-1.9, Z-score0. . This is not significantly changed Left Total Hip: 0.787 g/cm2 , T-score-1.7, Z-score 0. . This is not significantly changed Right Femoral Neck: 0.781 g/cm2 , T-score -1.8, Z-score0.1 . This is not significantly changed Right Total Hip: 0.742 g/cm2 , T-score-2.1, Z-score -0.4 . This is not significantly changed *February DEXA- THE LOWEST T-SCORE IS -2.1 IN THE LEFT femoral neck. This has been a statistically significant decrease in the bone density since the previous study. Lumbar spine (L1-L4): 1.107 g/cm2, T-score -0.6, Z-score 1.3 . Left Femoral Neck: 0.740 g/cm2 , T-score-2.1, Z-score-0.3 . Previous BMD(g/cm2 ) 0.784 . The change is statistically significant. Left Total Hip: 0.756 g/cm2 , T-score-2., Z-score -0.4 . Right Femoral Neck: 0.773 g/cm2 , T-score -1.9, Z-score-0.1 . Right Total Hip: 0.75 g/cm2 , T-score-2., Z-score -0.4 1) DIAGNOSIS (based on BMD alone): OSTEOPENIA *January DEXA- Osteopenia of the bilateral hips LUMBAR SPINE: The bone mineral density from L1 through L4 is 1.129 grams per square centimeter which yields a T-score of -0.4. . LEFT HIP: The bone mineral density of the total region of the hip is 0.804 grams per square centimeter which yields a T-score of -1.6. . LEFT FEMORAL NECK: The bone mineral density of the femoral neck is 0.784 grams per square centimeter which yields a T-score of -1.8. . RIGHT HIP: The bone mineral density of the total region of the hip is 0.768 grams per square centimeter which yields a T-score of -1.9. . RIGHT FEMORAL NECK: The bone mineral density of the femoral neck is 0.777 grams per square centimeter which yields a T-score of -1.9. *January DEXA- IMPRESSION: Severe osteopenia in both femoral necks, significant decline in R femoral neck. LUMBAR SPINE: The bone mineral density from L1 through L4 is 0.885 grams per square centimeter which yields a T-score of -1.5. This is 3.9% mproved. LEFT HIP: The bone mineral density of [...] T-score of -2.4. This is 3.9% worse. IMPRESSION and PLAN: 1. PMR/GCA: Steroid-responsive shoulder/hip pain and CT neck with findings suspicious for vasculitis with negative TA biopsies x2. Has tried: HCQ (diarrhea/dizziness), MTX PO/SC and actemra without improvement-MTX SC with nausea too. Remains on pred 10mg/day. Tried HCQ again with side effects. Devel oped rash with SSZ. - Continue prednisone 10mg/day (flares on doses <9mg/day). Advised to only taper by 1 mg per month, if she wants to try tapering in the future. Advised that she continue with the current dose for now. Potential side effects of prednisone discussed. -consider starting kevzara pending labs. Handout on the medication was given to the patient. - Tylenol prn -check labs now 2. Osteoporosis: In , had traumatic R ankle fracture after a fall at work. From -, on actonel. From January-May (with a break and resumption of medication in December), on fosamax. January DEXA with osteoporosis. January DEXA with osteopenia but decline in BMD in one area. In May, fosamax switched to prolia. In Apr, had a L humeral fracture so advised to start forteo. In January, started forteo, completed in February. February DEXA with decline. January DXA stable. DXA with improvement compared to , but done on different scanner than study. - will give prolia today. R/b/a of med discussed. No PA needed given medicare a/b.r/b/a of med discussed. - routine dental visits advised - fall precautions - Continue calcium and vitamin D supplementation - DEXA was due in February, ordered placed and she was reminded to schedule on the same machine as prior -check labs in 5 months 3. PUD: With bleeding gastric ulcer per Jul EGD related to NSAID use - Avoid NSAIDs PO 4. Tobacco use: - strongly encouraged smoking cessation 5. Neck pain: with history of cervical OA -will check cervical spine x-rays -consult placed to spine 6. General health maintenance: - Completed the covid vaccination series in November, pfizer. - Advised to continue follow-up with PCP for routine health maintenance and malignancy screening RTC in 6 months, or sooner if needed Medical Decision Making: Problems: Moderate: 1+ chronic illnesses with change, 2+ stable chronic illnesses and New problem with uncertain prognosis Data: Unique test result(s) reviewed: 3+ Unique test(s) ordered: 3+ Independent interpretation of test from other physician/QHCP Risk: High: Drug therapy requiring intensive monitoring Medical Decision Making Level: 5 - High Palma Lovett APRN.SHINGLE INSPECTOR documented in this encounterSumma [facility]06-20-2025 NoteHNO ID: [id number] Author: PALMA LOVETT APRN.SHINGLE INSPECTOR Service: ? 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 With negative TA biopsies x2 - From Jun-Sep, on MTX which was stopped due to inefficacy - In October, started on acemtra which was stopped after 3 infusions - In Apr, fell off a trailer and broke L humerus - In Jul, seen by Dr. Gonzalez. On baseline prednisone 10mg/day. Given medrol dose pack for flare with plans to return to prednisone 10mg/day thereafter. She was hesitant to reduce baseline pred 10mg/day further given previous attempts to taper led to flares of pain and headache - On 07/28/19, received prolia - In October, reported baseline pain in the R>L shoulders/arms. Not flaring. On pred 10mg/day - In January and Apr, reported stable PMR on pred 10mg/day - In Aug, reported taking pred 10mg/day. Taking forteo. No interim fracture. - In February, started on HCQ given active pain. pred 10mg/day continued - On 05/16/21, reported no improvement in L shoulder, neck and base of skull pain w/pred 20mg/day. Referred to spine and PT - In May reported taking pred 10mg/day. Continued to have significant pain awakening her at night, located in L side of the neck/base of skull. Prescribed a pred 40mg taper - In Aug, reported no change with increased pred dose. On pred 10mg/day at the time of the visit. Was off HCQ so advised to resume - In November, reported no change on HCQ. Remained on pred 10mg/day. Resumed forteo 3 months prior (was off x2 months prior to that as she had run out) - In February, reported feeling the same. On pred 10mg/day. Was to have stopped forteo in last January but was still taking it. Forteo stopped, last dose in February. Was advised to resume prolia but was waiting for surgery clearance given ankle surgery. Off HCQ. - In Mar s/p R ankle surgery (hardware removal) - In Apr, prednisone course helped a lot. Started MTX SC - In Jul, reported MTX didn't help. Hurt worse and felt nausea/fatigue with it. On pred 10mg/day - In Jan, reported flares on lower than pred 10mg/day so 10mg/day continued. Had to temporarily increase to 40mg for a flare which helped, then back to 10mg/day - In Jan, Jul and Jan, given prolia - In Jan, advised to start HCQ while on pred 10mg/day. Had taken one dose of 20mg a couple of days prior for increased upper back and R>L proximal arm pain, which helped. Back on 10mg/day. - at [facility], reports she had diarrhea and dizziness with the first week of HCQ. Tried 1/2 tablet every other day with the same issue. - Hx of PUD - Last plaquenil eye exam normal in Sep (had been off HCQ-resuming today) PAST MEDICAL HISTORY Diagnosis Date Actinic keratosis Autoimmune disease (HCC) Cancer (HCC) 1982 Uterine Cephalalgia Cholelithiasis Depression Diarrhea Disorder of bone and cartilage, unspecified Diverticulitis of colon (without mention of hemorrhage)(562.11) 2003 Dysphagia Essential hypertension 12/28/2021 GCA (giant cell arteritis) ([facility]CC) bx negative GERD (gastroesophageal reflux disease) Glaucoma Hematuria 1999 had workup including cystoscopy, etc. - entire workup negative. No longer happening. IBS (irritable bowel syndrome) Iron deficiency anemia, unspecified ? related to UGI source from NSAID's Mixed hyperlipidemia Palpitations PMR (polymyalgia rheumatica) (HCC) Raynaud's disease /phenomenon Sciatica Steroid long-term use Thyroid nodule Tobacco use disorder PAST SURGICAL HISTORY Procedure Laterality Date ABDOMINAL SURGERY HX APPENDECTOMY 1982 incidental APPENDECTOMY HX BREAST SURGERY HX CATARACT EXTRACTION HX bilateral CHOLECYSTECTOMY Cholecystectomy COLONOSCOPY 2012 COLONOSCOPY FLX DX W/COLLJ SPEC WHEN PFRMD 05/09/2021 ESOPHAGOGASTRODUODENOSCOPY TRANSORAL DIAGNOSTIC 07/05/2015 EGD ESOPHAGOGASTRODUODENOSCOPY TRANSORAL DIAGNOSTIC 05/09/2021 EYE SURGERY HX FINE NEEDLE ASPIRATION 04/30/2023 Thyroid FNA FRACTURE SURGERY LEFT HEART CATH,PERCUTANEOUS 2011 Cardiac cath, L heart. Normal PAST SURGICAL HISTORY OF 1987 ulnar ner transferred PAST SURGICAL HISTORY OF 1990 bartholin cyst on vagina PAST SURGICAL HISTORY OF 2005 bone spur to left shoulder PAST SURGICAL HISTORY OF 2007 left knee -- torn meniscus ([place]) PAST SURGICAL HISTORY OF 2011 ORIF R ankle PAST SURGICAL (more content not included)...[facility]06-19-2025 Instructions* Patient Instructions* Palma Lovett APRN.CNP - 02/05/2025 10:29 AM EDT Please schedule follow up with Palma Lovett APRN.CNP for office visit and Prolia on or shortly after 02/23/2026 Please schedule with spine. Please schedule bone density test on the same machine as prior documented in this encounterSum[facility]06-03-2025 Telephone encounter Note * Telephone Encounter - Keely Rousseau RN - 01/20/2025 1:34 PM EDT Spoke with patient, advised of need for labs prior to Prolia appointment on , verbalizes understanding-will complete promptly. Keely Rousseau RN [facility]06-03-2025 Miscellaneous Notes* Telephone Encounter - Keely Rousseau RN - 01/20/2025 1:34 PM EDT Spoke with patient, advised of need for labs prior to Prolia appointment on , verbalizes understanding-will complete promptly. Keely Rousseau RN documented in this encounterSumma [facility]06-03-2025 Telephone encounter Note * Telephone Encounter - Keely Rousseau RN - 01/20/2025 10:25 AM EDT Last Prolia dose: 08/05/2024 Last DEXA: 03/02/2023 Last OV: 03/18/2024 (with Magdalene Bradford) Labs: Calcium (mg/dL) Date Value 2021 9.2 Calcium, Total (mg/dL) Date Value 06/23/2024 8.7 Vitamin D 25 Hydroxy (ng/mL) Date Value 06/23/2024 35.7 09/09/2021 44.3 Calcium Keely Rousseau RN [facility]06-03-2025 Miscellaneous Notes* Telephone Encounter - Keely Rousseau RN - 01/20/2025 10:25 AM EDT Last Prolia dose: 08/05/2024 Last DEXA: 03/02/2023 Last OV: 03/18/2024 (with Magdalene Bradford) Labs: Calcium (mg/dL) Date Value 2021 9.2 Calcium, Total (mg/dL) Date Value 06/23/2024 8.7 Vitamin D 25 Hydroxy (ng/mL) Date Value 06/23/2024 35.7 09/09/2021 44.3 Calcium Keely Rousseau RN documented in this encounterSumma [facility]04-04-2025 NoteHNO ID: [id number] Author: WILY ABARCA APRN.SHINGLE INSPECTOR Service: ? Author Type: Nurse Practitioner Type: Progress Notes Filed: 11/21/2024 14:33 Note Text: Chief Complaint Patient presents with: 6 Month Exam HPI Cecelia Quiroz is a 74 year old female who presents here today for Above Complaints.. Metoprolol 50 mg twice daily- Tolerating well. Has stopped taking amlodipine since May 2025. Has not been monitoring BP at home recently. Denies headaches, vision changes, swelling. Most Recent 11/23/21 - 11/21/24 02/07/24 13:07 02/18/24 10:26 03/26/24 13:08 03/31/24 12:05 04/14/24 15:47 05/23/24 13:20 11/21/24 12:19 BP 120/70 11/21/24 12:19 124/72 124/62 116/74 142/70 111/68 114/62 120/70 Right Wrist pain and lumbar spine back pain- Has had this pain for years, comes and goes, hurts to touch, right hand will feel numb occasionally. Tylenol does help some. Salonpas pads help. Started decreasing prednisone because she doesn't want to be taking this anymore. Is now taking 3mg prednisone daily. 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 Previous Medical History PAST MEDICAL HISTORY Diagnosis Date Actinic keratosis Autoimmune disease (HCC) Cancer (HCC) 1982 Uterine Cephalalgia Cholelithiasis Depression Diarrhea Disorder of bone and cartilage, unspecified Diverticulitis of colon (without mention of hemorrhage)(562.11) 2003 Dysphagia Essential hypertension 12/28/2021 GCA (giant cell arteritis) ([facility]) bx negative GERD (gastroesophageal reflux disease) Glaucoma Hematuria 1999 had workup including cystoscopy, etc. - entire workup negative. No longer happening. IBS (irritable bowel syndrome) Iron deficiency anemia, unspecified ? related to UGI source from NSAID's Mixed hyperlipidemia Palpitations PMR (polymyalgia rheumatica) ([facility]) Raynaud's disease /phenomenon Sciatica Steroid long-term use Thyroid nodule Tobacco use disorder Previous Surgical History PAST SURGICAL HISTORY Procedure Laterality Date ABDOMINAL SURGERY HX APPENDECTOMY 1982 incidental APPENDECTOMY HX BREAST SURGERY HX CATARACT EXTRACTION HX bilateral CHOLECYSTECTOMY Cholecystectomy COLONOSCOPY 2012 COLONOSCOPY FLX DX W/COLLJ SPEC WHEN PFRMD 05/09/2021 ESOPHAGOGASTRODUODENOSCOPY TRANSORAL DIAGNOSTIC 07/05/2015 EGD ESOPHAGOGASTRODUODENOSCOPY TRANSORAL DIAGNOSTIC 05/09/2021 EYE SURGERY HX FINE NEEDLE ASPIRATION 04/30/2023 Thyroid FNA FRACTURE SURGERY LEFT HEART CATH,PERCUTANEOUS 2011 Cardiac cath, L heart. Normal PAST SURGICAL HISTORY OF 1987 ulnar ner transferred PAST SURGICAL HISTORY OF 1990 bartholin cyst on vagina PAST SURGICAL HISTORY OF 2005 bone spur to left shoulder PAST SURGICAL HISTORY OF 2007 left knee -- torn meniscus ([place]) PAST SURGICAL HISTORY OF 2011 ORIF R ankle PAST SURGICAL HISTORY OF 2000 Bartholin cyst excised TOTAL ABDOMINAL HYSTERECT W/WO RMVL TUBE OVARY 1982 cervical cancer, still has ovaries VAGINAL HYSTERECTOMY Family History FAMILY HISTORY Problem Relation Age of Onset Diabetes Father late in life Coronary Artery Disease Father Hx of [place], age 71 Tremor Mother Hypertension Mother Cancer Brother Cancer Brother lymphoma - 55; h/o kidney transplant Cancer Brother Mestatic Aneurysm Sister brain Lung Cancer Sister dies at 52 Bipolar disorder Son Tremor Son Colon Cancer Niece Tremor Niece Hyperlipidemia No Family History Blood Clots No Family History Blood Disease No Family History Factor 5 Leiden No Family History DVT No Family History Stroke No Family History Schizophrenia No Family History Systemic Lupus Erythematosus No Family History Multiple Sclerosis No Family History Alzheimer's Disease No Family History Parkinson?s Disease No Family History Patient Allergies ALLERGIES Allergen Reactions Sulfasalazine Rash Current Medications Current Outpatient Medications on File Prior to Visit Medication Sig metoprolol succinate ER (TOPROL XL) 50 mg 24 hr tablet Take 1 tablet by mouth two times a day. predniSONE (DELTASONE) 1 mg tablet Take 7 mg once a day (using 1 mg and 5 mg tablets) predniSONE (DELTASONE) 5 mg tablet Using 1 mg and 5 mg tablets, please take 7mg once a day predniSONE (DELTASONE) 10 mg tablet Take 1 tablet by mouth once daily. Take in the morning with food. primidone (MYSOLINE) 250 mg tablet Take 1 tablet by mouth daily at bedtime. Blood Pressure Test Kit-Large (QUICK RESPONSE BP MONITOR) 1 Each once daily. amLODIPine (NORVASC) 2.5 mg tablet Take 1 tablet by mouth once daily. travoprost (TRAVATAN Z) 0.004 % ophthalmic drops 1 Drop. loperamide (IMODIUM) 2 mg cap(s) Take 2 mg by mouth four times daily as needed. No current facility-administered medications on file (more content not included)...[facility]04-04-2025 History of Present illness Narrative* Wily Abarca APRN.SHINGLE INSPECTOR - 11/21/2024 12:46 PM EDT Chief Complaint Patient presents with: 6 Month Exam HPI Cecelia Quiroz is a 74 year old female who presents here today for Above Complaints.. Metoprolol 50 mg twice daily- Tolerating well. Has stopped taking amlodipine since May 2025. Has not been monitoring BP at home recently. Denies headaches, vision changes, swelling. Most Recent 11/23/21 - 11/21/24 02/07/24 13:07 02/18/24 10:26 03/26/24 13:08 03/31/24 12:05 04/14/24 15:47 05/23/24 13:20 11/21/24 12:19 BP 120/70 11/21/24 12:19 124/72 124/62 116/74 142/70 111/68 114/62 120/70 Right Wrist pain and lumbar spine back pain- Has had this pain for years, comes and goes, hurts to touch, right hand will feel numb occasionally. Tylenol does help some. Salonpas pads help. Started decreasing prednisone because she doesn't want to be taking this anymore. Is now taking 3mgprednisone daily. 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 Previous Medical History PAST MEDICAL HISTORY Diagnosis Date Actinic keratosis Autoimmune disease (HCC) Cancer (HCC) 1982 Uterine Cephalalgia Cholelithiasis Depression Diarrhea Disorder of bone and cartilage, unspecified Diverticulitis of colon (without mention of hemorrhage)(562.11) 2003 Dysphagia Essential hypertension 12/28/2021 GCA (giant cell arteritis) ([facility]) bx negative GERD (gastroesophageal reflux disease) Glaucoma Hematuria 1999 had workup including cystoscopy, etc. - entire workup negative. No longer happening. IBS (irritable bowel syndrome) Iron deficiency anemia, unspecified ? related to UGI source from NSAID's Mixed hyperlipidemia Palpitations PMR (polymyalgia rheumatica) ([facility]) Raynaud's disease /phenomenon Sciatica Steroid long-term use Thyroid nodule Tobacco use disorder Previous Surgical History PAST SURGICAL HISTORY Procedure Laterality Date ABDOMINAL SURGERY HX APPENDECTOMY 1982 incidental APPENDECTOMY HX BREAST SURGERY HX CATARACT EXTRACTION HX bilateral CHOLECYSTECTOMY Cholecystectomy COLONOSCOPY 2012 COLONOSCOPY FLX DX W/COLLJ SPEC WHEN PFRMD 05/09/2021 ESOPHAGOGASTRODUODENOSCOPY TRANSORAL DIAGNOSTIC 07/05/2015 EGD ESOPHAGOGASTRODUODENOSCOPY TRANSORAL DIAGNOSTIC 05/09/2021 EYE SURGERY HX FINE NEEDLE ASPIRATION 04/30/2023 Thyroid FNA FRACTURE SURGERY LEFT HEART CATH,PERCUTANEOUS 2011 Cardiac cath, L heart. Normal PAST SURGICAL HISTORY OF 1987 ulnar ner transferred PAST SURGICAL HISTORY OF 1990 bartholin cyst on vagina PAST SURGICAL HISTORY OF 2005 bone spur to left shoulder PAST SURGICAL HISTORY OF 2007 left knee -- torn meniscus ([place]) PAST SURGICAL HISTORY OF 2011 ORIF R ankle PAST SURGICAL HISTORY OF 2000 Bartholin cyst excised TOTAL ABDOMINAL HYSTERECT W/WO RMVL TUBE OVARY 1982 cervical cancer, still has ovaries VAGINAL HYSTERECTOMY Family History FAMILY HISTORY Problem Relation Age of Onset Diabetes Father late in life Coronary Artery Disease Father Hx of [place], age 71 Tremor Mother Hypertension Mother Cancer Brother Cancer Brother lymphoma - 55; h/o kidney transplant Cancer Brother Mestatic Aneurysm Sister brain Lung Cancer Sister dies at 52 Bipolar disorder Son Tremor Son Colon Cancer Niece Tremor Niece Hyperlipidemia No Family History Blood Clots No Family History Blood Disease No Family History Factor 5 Leiden No Family History DVT No Family History Stroke No Family History Schizophrenia No Family History Systemic Lupus Erythematosus No Family History Multiple Sclerosis No Family History Alzheimer's Disease No Family History Parkinson s Disease No Family History Patient Allergies ALLERGIES Allergen Reactions Sulfasalazine Rash Current Medications Current Outpatient Medications on File Prior to Visit Medication Sig metoprolol succinate ER (TOPROL XL) 50 mg 24 hr tablet Take 1 tablet by mouth two times a day. predniSONE (DELTASONE) 1 mg tablet Take 7 mg once a day (using 1 mg and 5 mg tablets) predniSONE (DELTASONE) 5 mg tablet Using 1 mg and 5 mg tablets, please take 7mg once a day predniSONE (DELTASONE) 10 mg tablet Take 1 tablet by mouth once daily. Take in the morning with food. primidone (MYSOLINE) 250 mg tablet Take 1 tablet by mouth daily at bedtime. Blood Pressure Test Kit-Large (QUICK RESPONSE BP MONITOR) 1 Each once daily. amLODIPine (NORVASC) 2.5 mg tablet Take 1 tablet by mouth once daily. travoprost (TRAVATAN Z) 0.004 % ophthalmic drops 1 Drop. loperamide (IMODIUM) 2 mg cap(s) Take 2 mg by mouth four times daily as needed. No current facility-administered medications on file prior to visit. Social History Social History Tobacco Use Smoking status: Every Day Current packs/day: 1.00 Average packs/day: 1 pack/day for 35.0 years (35.0 ttl pk-yrs) Types: Cigarettes Smokeless tobacco: Never Vaping Use Vaping status: Never Used Substance Use Topics Alcohol use: No Drug use: No Review of Symptoms REVIEW OF SYSTEMS See HPI, otherwise negative EXAM: BP 120/70 Pulse 64 Temp 36.1 C (97 F) (Left Tympanic) Resp 20 Wt 63 kg (139 lb) BMI 22.78kg/m General Appearance: Well appearing, alert, in no acute distress, well-hydrated, well nourished.. Lungs: Lungs clear to auscultation. No wheezing, rhonchi, rales.. Heart: RRR without murmur, gallop, or rubs. No ectopy. Musculoskeletal: Positive findings: joint location: pain on right wrist upon palpation. Pain in lumbar spine upon palpation. Negative for joint swelling, redness, masses, lesions. Negative for abnormal spinal curvature. Health Maintenance List Depression Screening Never done Anxiety Screening Never done Advance Directive Discussion Never done Influenza Vaccine(1) due on 02/16/2025 Covid-19 Vaccine( - season) due on 11/21/2025 Lung Cancer Screening due on 01/07/2025 Bone Density Screening due on 02/26/2025 RSV Vaccine(1 - 1-dose 75+ series) due on 2025 Mammogram Screening due on 11/19/2025 Annual PCP Team Chronic Disease Visit due on 11/21/2025 BP Controlled (<130/80) due on 11/21/2025 Diabetes Screening due on 12/16/2026 Lipid Screening due on 12/16/2028 Colorectal Cancer Screening due on 05/09/2031 DTaP,Tdap,Td Vaccine(3 - Td or Tdap) due on 06/25/2032 Hepatitis C Screening Completed Shingrix Vaccine Completed Pneumococcal Vaccine: 50+ Completed Cervical Cancer Screening Discontinued Data reviewed ASSESSMENT/PLAN: 1. Essential hypertension - ICD9: 401.9, ICD10: I10 (primary diagnosis) - Controlled - Continue taking metoprolol 50mg BID 2. 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) - ICD9: 446.5, 725, ICD10: M31.5 - Continue to follow-up with information technology security manager 3. Dupuytren's contracture of right hand - ICD9: 728.6, ICD10: M72.0 - Continue to massage hand and use hand exercise ball 4. Chronic midline low back pain without sciatica - ICD9: 724.2, 338.29, ICD10: M54.50, G89.29 - continue using salonpas pads 5. Right wrist pain - ICD9: 719.43, ICD10: M25.531 - patient declined interventions - continue to monitor, inform us if worsening pain develops 6. Tobacco abuse - ICD9: 305.1, ICD10: Z72.0 - Cessation encouraged. 7. Osteoporosis, postmenopausal - ICD9: 733.01, ICD10: M81.0 - Reviewed the need for Calcium and Vitamin D supplements and weight bearing exercise as tolerated Follow-up as needed Raysa Valenzuela Attending Note I have personally performed a face to face assessment of the patient and have reviewed the ABIMAEL noteand I agree. Other additions or changes: As edited Signature: Wily Abarca Date: 11/21/2024 Time: 2:32 PM I spent a total of 45 minutes on the date of the service which included preparing to see the patient, [id number] patient care, completing clinical documentation, performing a medically appropriate examination, counseling and educating the patient/family/caregiver, and ordering medications, tests,or procedures. documented in this encounterSum[facility]04-[facility] History of Present illness Narrative* Tamika Tyson Mammo Tech - 11/19/2024 2:20 PM EDT Radiology Service Progress Note PATIENT NAME: Cecelia Quiroz DATE OF SERVICE: November 19, 2024 TIME: 3:18 PM PATIENT IDENTITY VERIFICATION COMPLETED USING TWO (2) IDENTIFIERS: Name and Date of confirmedby patient verbally. FALL SCREENING: Has the patient had 2 falls in the last year or 1 fall with injury or currently using an Ambulatory Assistive Device (Walker, Cane, Wheelchair, Crutches, etc.)? No PATIENT GENDER DATA: Assigned female at . status: : No status:NO. PATIENT RELEVANT IMPLANT DATA REVIEWED: Not Applicable PATIENT PRESENTS WITH AN IMPLANTABLE OR ATTACHED SENIOR WINDOWS SYSTEMS ENGINEER: No RADIOLOGY DEPARTMENT: Mammography PERIPHERAL IV DATA: Not applicable SIGNED BY: Stella Daniel November 19, 2024 3:18 PM documented in this encounterSumma Health [facility]04-02-2025 NoteHNO ID: [id number] Author: TAMIKA TYSON Mammo Tech Service: ? Author Type: Inside Tester Type: Progress Notes Filed: 11/19/2024 15:18 Note Text: Radiology Service Progress Note PATIENT NAME: Cecelai Quiroz DATE OF SERVICE: November 19, 2024 TIME: 3:18 PM PATIENT IDENTITY VERIFICATION COMPLETED USING TWO (2) IDENTIFIERS: Name and Date of confirmed by patient verbally. FALL SCREENING: Has the patient had 2 falls in the last year or 1 fall with injury or currently using an Ambulatory Assistive Device (Walker, Cane, Wheelchair, Crutches, etc.)? No PATIENT GENDER DATA: Assigned female at . status: : No status: NO. PATIENT RELEVANT IMPLANT DATA REVIEWED: Not Applicable PATIENT PRESENTS WITH AN IMPLANTABLE OR ATTACHED SENIOR WINDOWS SYSTEMS ENGINEER: No RADIOLOGY DEPARTMENT: Mammography PERIPHERAL IV DATA: Not applicable SIGNED BY: Tamika Tyson [employer] November 19, 2024 3:18 [facility]03-25-2025 NotePatient Outreach (FAMPWS) CECELIA QUIROZ ([id number]) 1950 F Date Time Provider Department 11/11/24 MIAH COTTRELL FAMPWS During your visit today, we recorded the following information about you: Allergies As of Date: 11/11/2024 Noted Allergy Reaction SULFASALAZINE 03/26/2024 2 - Rash Date Reviewed: 06/03/2024 Reviewed by: Wily Abarca APRN.SHINGLE INSPECTOR - Fully Assessed Visit Diagnosis:Encounter for screening mammogram for breast cancer [Z12.31] Order(s):[facility] SCREENING W DOMENIC [[id number]] Order #: [id number] FUTURE Prescriptions as of 12/12/2024 - metoprolol succinate ER (TOPROL XL) 50 mg 24 hr tablet Take 1 tablet by mouth two times a day. - predniSONE (DELTASONE) 1 mg tablet Take 7 mg once a day (using 1 mg and 5 mg tablets) - predniSONE (DELTASONE) 5 mg tablet Using 1 mg and 5 mg tablets, please take 7mg once a day - predniSONE (DELTASONE) 10 mg tablet Take 1 tablet by mouth once daily. Take in the morning with food. - primidone (MYSOLINE) 250 mg tablet Take 1 tablet by mouth daily at bedtime. - Blood Pressure Test Kit-Large (QUICK RESPONSE BP MONITOR) 1 Each once daily. - travoprost (TRAVATAN Z) 0.004 % ophthalmic drops 1 Drop. - loperamide (IMODIUM) 2 mg cap(s) Take 2 mg by mouth four times daily as needed. Problem List As Of Date 11/11/2024 Noted Resolved Disorder of bone and cartilage [M89.9, M94.9] 03/05/2016 ALLERGIC RHINITIS NOS [J30.9] 10/29/2007 MVP (mitral valve prolapse) [I34.1] 01/19/2023 Tobacco use [Z72.0] Diverticulitis of large intestine without perfo*08/20/2002 CARPAL TUNNEL SYNDROME [G56.00] 10/29/2007 HEMATURIA [599.7] 10/29/2007 ROUTINE [facility] - [place] [Z01.419] 10/29/2007 10/19/2011 Class: Chronic TEAR MED MENISC KNEE-CURRENT [[id number]] 12/10/2007 Cellulitis and Abscess of Face [L03.211, L02.01]10/03/2008 Adjustment Disorder with Anxiety [F43.22] 12/11/2008 Routine general medical examination at [facility]*02/12/2009 11/27/2011 Class: Chronic Giant cell arteritis (HCC) [M31.6] 01/10/2012 GCA (giant cell arteritis) (HCC) [M31.6] 01/18/2012 04/19/2017 Sciatica [M54.30] 04/30/2013 Raynaud's disease without gangrene [I73.00] 10/28/2015 Osteoporosis, 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] 03/05/2016 Infected sebaceous cyst [L72.3, L08.9] 03/31/2016 Cephalalgia [R51.9] 01/17/2017 Family history of brain aneurysm [Z82.49] 01/17/2017 Giant cell arteritis with polymyalgia rheumatic*01/17/2017 assisted systemic steroid user [Z79.52] 03/02/2017 Actinic keratosis [L57.0] 01/18/2018 Undiagnosed cardiac murmurs [R01.1] 01/18/2018 Cervical myofascial strain [S16.1XXA] 08/26/2018 Neck pain [M54.2] 08/26/2018 Tremor [R25.1] 10/08/2018 Arm paresthesia, left [R20.2] 10/08/2018 Weakness of left arm [R29.898] 10/08/2018 Osteoarthritis of spine with radiculopathy, cer*10/08/2018 DDD (degenerative disc disease), cervical [M50.*10/08/2018 Diarrhea due to malabsorption [K90.9, R19.7] 05/09/2021 Dysphagia [R13.10] 05/09/2021 Hyperlipidemia, mixed [E78.2] 12/28/2021 Essential hypertension [I10] 12/28/2021 Shortness of breath [R06.02] 12/28/2021 01/19/2023 Palpitations [R00.2] 12/28/2021 Abnormal mammogram [R92.8] 01/19/2023 Chest pain at rest [R07.9] 01/19/2023 Cholelithiasis [K80.20] 01/19/2023 Cyst of Bartholin's gland duct [N75.0] 01/19/2023 Fracture of humerus [S42.309A] 01/19/2023 Gastroesophageal reflux disease [K21.9] 01/19/2023 History of appendectomy [Z90.49] 01/19/2023 History of arthroplasty of left shoulder [Z96.6*01/19/2023 History of fracture [Z87.81] 01/19/2023 History of hysterectomy [Z90.710] 01/19/2023 History of malignant neoplasm of uterine body [*01/19/2023 History of visual disturbance [Z86.69] 01/19/2023 Osteoarthritis [M19.90] 01/19/2023 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] 06/16/2016 Headache [R51] 01/19/2023 Temporal arteritis (HCC) [M31.6] 01/19/2023 Fatigue [R53.83] 03/12/2023 Decreased libido [R68.82] 03/12/2023 Vitamin D deficiency [E55.9] 03/12/2023 Balance disorder [R26.89] 03/12/2023 Iron deficiency [E61.1] 03/12/2023 Thyroid nodule [E04.1] 03/12/2023 Carotid atherosclerosis, bilateral [I65.23] 03/12/2023 Vitamin B12 deficiency [E53.8] 06/19/2023 Multiple thyroid nodules [E04.2] 06/19/2023 Chronic neck pain [M54.2, G89.29] 06/19/2023 Dupuytren's contracture of right hand [M72.0] 12/17/2023 Nodule of lower lobe of left lung [R91.1] 12/17/2023 Hyperglycemia [R73.9] 12/20/2023 Encounter Status:Closed by KATHRYN CANALES on 12/12/24[facility] 11-10-2024 Telephone encounter Note* Telephone Encounter - Lor Figueroa - 11/10/2024 10:10 AM EDT Prescription Refill Information The patient has been identified by name and date of : Yes Caregiver verified no other encounters exist for this prescription request: Yes Caregiver confirmed with patient/requestor that no other refills are due, in the near future, with this provider at this time: Yes The last office visit in the department: 05/23/24 Does the patient have a future office visit with this provider/department: Yes 11/21/24 Requested Prescriptions Pending Prescriptions Disp Refills metoprolol succinate ER (TOPROL XL) 50 mg 24 hr tablet 180 tablet 0 Sig: Take 1 tablet by mouth two times a day. Lor Figueroa November 10, 2024 10:11 AM [facility]03-24-2025 Miscellaneous Notes* Telephone Encounter - Lor Figueroa - 11/10/2024 10:10 AM EDT Prescription Refill Information The patient has been identified by name and date of : Yes Caregiver verified no other encounters exist for this prescription request: Yes Caregiver confirmed with patient/requestor that no other refills are due, in the near future, with this provider at this time: Yes The last office visit in the department: 05/23/24 Does the patient have a future office visit with this provider/department: Yes 11/21/24 Requested Prescriptions Pending Prescriptions Disp Refills metoprolol succinate ER (TOPROL XL) 50 mg 24 hr tablet 180 tablet 0 Sig: Take 1 tablet by mouth two times a day. Lor Figueroa November 10, 2024 10:11 AM documented in this encounterSumma [facility]02-03-2025 Telephone encounter Note * Telephone Encounter - Keely Rousseau RN - 09/22/2024 12:56 PM EST Spoke with patient, reports she is down to 7 mg daily as of this morning. Keely Rousseau RN [facility]02-03-2025 Miscellaneous Notes* Telephone Encounter - Keely Rousseau RN - 09/22/2024 12:56 PM EST Spoke with patient, reports she is down to 7 mg daily as of this morning. Keely Rousseau RN * Telephone Encounter - Keely Rousseau RN - 09/22/2024 10:43 AM EST Patient has been identified by name and date of : Yes RX INSTRUCTIONS: Patient aware RX will be sent to pharmacy. No need to notify patient. LAST APPOINTMENT: 03/18/2024 UPCOMING APPOINTMENT: 08/03/2025 LABS: Hemoglobin (g/dL) Date Value 05/10/2024 12.4 09/09/2021 12.2 Hematocrit (%) Date Value 05/10/2024 39.3 09/09/2021 38.2 WBC (k/uL) Date Value 05/10/2024 11.20 09/09/2021 14.19 Platelet Count (k/uL) Date Value 05/10/2024 264 09/09/2021 304 AST Date Value Ref Range Status 05/10/2024 20 13 - 35 U/L Final ALT Date Value Ref Range Status 05/10/2024 8 7 - 38 U/L Final Creatinine Date Value Ref Range Status 06/23/2024 0.64 0.58 - 0.96 mg/dL Final No results found for: URICACID * Telephone Encounter - Carmencita Whitten - 09/22/2024 10:35 AM EST Patient asking for a new RX of the 5 and 1 mg of the prednisone as she is now down to 7mg daily. Please assist. documented in this encounterSumma [facility]02-03-2025 Telephone encounter Note * Telephone Encounter - Keely Rousseau RN - 09/22/2024 10:43 AM EST Patient has been identified by name and date of : Yes RX INSTRUCTIONS: Patient aware RX will be sent to pharmacy. No need to notify patient. LAST APPOINTMENT: 03/18/2024 UPCOMING APPOINTMENT: 08/03/2025 LABS: Hemoglobin (g/dL) Date Value 05/10/2024 12.4 09/09/2021 12.2 Hematocrit (%) Date Value 05/10/2024 39.3 09/09/2021 38.2 WBC (k/uL) Date Value 05/10/2024 11.20 09/09/2021 14.19 Platelet Count (k/uL) Date Value 05/10/2024 264 09/09/2021 304 AST Date Value Ref Range Status 05/10/2024 20 13 - 35 U/L Final ALT Date Value Ref Range Status 05/10/2024 8 7 - 38 U/L Final Creatinine Date Value Ref Range Status 06/23/2024 0.64 0.58 - 0.96 mg/dL Final No results found for: URICACID [facility]02-03-2025 Telephone encounter Note* Telephone Encounter - Carmencita Whitten - 09/22/2024 10:35 AM EST Patient asking for a new RX of the 5 and 1 mg of the prednisone as she is now down to 7mg daily. Please assist. [facility]12-26-2024 Telephone encounter Note* Telephone Encounter - Tierney Dumont - 08/14/2024 11:48 AM EST Prescription Refill Information The patient has been identified by name and date of : Yes Caregiver verified no other encounters exist for this prescription request: Yes Caregiver confirmed with patient/requestor that no other refills are due, in the near future, with this provider at this time: Yes The last office visit in the department: 05-23-24 Does the patient have a future office visit with this provider/department: No Requested Prescriptions Pending Prescriptions Disp Refills metoprolol succinate ER (TOPROL XL) 50 mg 24 hr tablet 180 tablet 0 Sig: Take 1 tablet by mouth two times a day. Tierney Gross August 14, 2024 11:48 AM [facility]12-26-2024 Miscellaneous Notes* Telephone Encounter - Tierney Dumont - 08/14/2024 11:48 AM EST Prescription Refill Information The patient has been identified by name and date of : Yes Caregiver verified no other encounters exist for this prescription request: Yes Caregiver confirmed with patient/requestor that no other refills are due, in the near future, with this provider at this time: Yes The last office visit in the department: 05-23-24 Does the patient have a future office visit with this provider/department: No Requested Prescriptions Pending Prescriptions Disp Refills metoprolol succinate ER (TOPROL XL) 50 mg 24 hr tablet 180 tablet 0 Sig: Take 1 tablet by mouth two times a day. Tierney Gross August 14, 2024 11:48 AM documented in this encounterSumma Health [facility]12-17-2024 NoteHNO ID: [id number] Author: KEELY ROUSSEAU RN Service: ? Author Type: Registered Nurse Type: Progress Notes Filed: 08/05/2024 14:12 Note Text: Patient denies fractures or falls since last visit. Patient denies any dental work in last 2 months or upcoming 2 months. Patient given Prolia 60 mg SQ in the left arm Patient tolerated injection well. Lot #: [id number] Exp. Date: 12/17/2026 Last Vitamin D AND Serum Calcium: Calcium (mg/dL) Date Value 2021 9.2 Calcium, Total (mg/dL) Date Value 06/23/2024 8.7 Vitamin D 25 Hydroxy (ng/mL) Date Value 06/23/2024 35.7 09/09/2021 44.3 Last DXA: 03/02/2023 Next Prolia 02/06/2025 - Reviewed lab schedule. Keely Rousseau RNPromedica [facility]12-17-2024 History of Present illness Narrative* Keely Rousseau RN - 08/05/2024 1:56 PM EST Patient denies fractures or falls since last visit. Patient denies any dental work in last 2 months or upcoming 2 months. Patient given Prolia 60 mg SQ in the left arm Patient tolerated injection well. Lot #: [id number] Exp. Date: 12/17/2026 Last Vitamin D & Serum Calcium: Calcium (mg/dL) Date Value 2021 9.2 Calcium, Total (mg/dL) Date Value 06/23/2024 8.7 Vitamin D 25 Hydroxy (ng/mL) Date Value 06/23/2024 35.7 09/09/2021 44.3 Last DXA: 03/02/2023 Next Prolia 02/06/2025 - Reviewed lab schedule. Keely Rousseau RN documented in this encounterSumma Health [facility]12-16-2024 Telephone encounter Note * Telephone Encounter - Keely Rousseau RN - 08/04/2024 4:06 PM EST Last Prolia dose: 01/28/2024 Last DEXA: 03/02/2023 Last OV: 03/18/2024 (with Magdalene Bradford) Labs: Calcium (mg/dL) Date Value 2021 9.2 Calcium, Total (mg/dL) Date Value 06/23/2024 8.7 Vitamin D 25 Hydroxy (ng/mL) Date Value 06/23/2024 35.7 09/09/2021 44.3 Keely Rousseau RN [facility]12-16-2024 Miscellaneous Notes* Telephone Encounter - Keely Rousseau RN - 08/04/2024 4:06 PM EST Last Prolia dose: 01/28/2024 Last DEXA: 03/02/2023 Last OV: 03/18/2024 (with Ravindraruba Le) Labs: Calcium (mg/dL) Date Value 2021 9.2 Calcium, Total (mg/dL) Date Value 06/23/2024 8.7 Vitamin D 25 Hydroxy (ng/mL) Date Value 06/23/2024 35.7 09/09/2021 44.3 Keely Rousseau RN documented in this encounterSumma Health [facility]12-09-2024 Telephone encounter Note * Telephone Encounter - Keely Rousseau RN - 07/28/2024 10:37 AM EST Patient has been identified by name and date of : Yes - Spoke with patient, verified currentlytaking prednisone 10 mg daily RX INSTRUCTIONS: Patient aware RX will be sent to pharmacy. No need to notify patient. LAST APPOINTMENT: 01/28/2024 UPCOMING APPOINTMENT: 08/04/2024 LABS: Hemoglobin (g/dL) Date Value 05/10/2024 12.4 09/09/2021 12.2 Hematocrit (%) Date Value 05/10/2024 39.3 09/09/2021 38.2 WBC (k/uL) Date Value 05/10/2024 11.20 09/09/2021 14.19 Platelet Count (k/uL) Date Value 05/10/2024 264 09/09/2021 304 AST Date Value Ref Range Status 05/10/2024 20 13 - 35 U/L Final ALT Date Value Ref Range Status 05/10/2024 8 7 - 38 U/L Final Creatinine Date Value Ref Range Status 06/23/2024 0.64 0.58 - 0.96 mg/dL Final No results found for: URICACID [facility]12-09-2024 Miscellaneous Notes* Telephone Encounter - Keely Rousseau RN - 07/28/2024 10:37 AM EST Patient has been identified by name and date of : Yes - Spoke with patient, verified currentlytaking prednisone 10 mg daily RX INSTRUCTIONS: Patient aware RX will be sent to pharmacy. No need to notify patient. LAST APPOINTMENT: 01/28/2024 UPCOMING APPOINTMENT: 08/04/2024 LABS: Hemoglobin (g/dL) Date Value 05/10/2024 12.4 09/09/2021 12.2 Hematocrit (%) Date Value 05/10/2024 39.3 09/09/2021 38.2 WBC (k/uL) Date Value 05/10/2024 11.20 09/09/2021 14.19 Platelet Count (k/uL) Date Value 05/10/2024 264 09/09/2021 304 AST Date Value Ref Range Status 05/10/2024 20 13 - 35 U/L Final ALT Date Value Ref Range Status 05/10/2024 8 7 - 38 U/L Final Creatinine Date Value Ref Range Status 06/23/2024 0.64 0.58 - 0.96 mg/dL Final No results found for: URICACID documented in this encounter[facility] Instructions* Patient Instructions* Wily Abarca APRN.CNP - 05/23/2024 1:45 PM EDT Hold your amlodipine for now. Monitor your BP daily for 2 weeks. Then send me the results via [facility]. Then we can decide if you really need the amlodipine medication or not. documented in this encounterSumma [facility]10-04-2024 NoteHNO ID: [id number] Author: WILY ABARCA APRN.SHINGLE INSPECTOR Service: ? Author Type: Nurse Practitioner Type: Progress Notes Filed: 06/03/2024 18:02 Note Text: Chief Complaint Patient presents with: F/U 6 months: BP HPI Cecelia Quiroz is a 74 year old female who presents here today for Above Complaints. BP-can be having pain and not realize it because she has a high pain tolerance-so thinks this may increase her BP when there doesn't actually seem to be a reason. Has a hornet sting on the back of her neck. [place] and saw it after riding under a tree on the [place]. Has been going to a wellness center and they have recommended she have H. Pylori check. Past medical history, appointments, medications, allergies reviewed. Previous Medical History PAST MEDICAL HISTORY Diagnosis Date Actinic keratosis Autoimmune disease (HCC) Cancer (HCC) 1982 Uterine Cephalalgia Cholelithiasis Depression Diarrhea Disorder of bone and cartilage, unspecified Diverticulitis of colon (without mention of hemorrhage)(562.11) 2003 Dysphagia Essential hypertension 12/28/2021 GCA (giant cell arteritis) ([facility]) bx negative GERD (gastroesophageal reflux disease) Glaucoma Hematuria 1999 had workup including cystoscopy, etc. - entire workup negative. No longer happening. IBS (irritable bowel syndrome) Iron deficiency anemia, unspecified ? related to UGI source from NSAID's Mixed hyperlipidemia Palpitations PMR (polymyalgia rheumatica) ([facility]) Raynaud's disease /phenomenon Sciatica Steroid long-term use Thyroid nodule Tobacco use disorder Previous Surgical History PAST SURGICAL HISTORY Procedure Laterality Date ABDOMINAL SURGERY HX APPENDECTOMY 1982 incidental APPENDECTOMY HX BREAST SURGERY HX CATARACT EXTRACTION HX bilateral CHOLECYSTECTOMY Cholecystectomy COLONOSCOPY 2012 COLONOSCOPY FLX DX W/COLLJ SPEC WHEN PFRMD 05/09/2021 ESOPHAGOGASTRODUODENOSCOPY TRANSORAL DIAGNOSTIC 07/05/2015 EGD ESOPHAGOGASTRODUODENOSCOPY TRANSORAL DIAGNOSTIC 05/09/2021 EYE SURGERY HX FINE NEEDLE ASPIRATION 04/30/2023 Thyroid FNA FRACTURE SURGERY LEFT HEART CATH,PERCUTANEOUS 2011 Cardiac cath, L heart. Normal PAST SURGICAL HISTORY OF 1987 ulnar ner transferred PAST SURGICAL HISTORY OF 1990 bartholin cyst on vagina PAST SURGICAL HISTORY OF 2005 bone spur to left shoulder PAST SURGICAL HISTORY OF 2007 left knee -- torn meniscus ([place]) PAST SURGICAL HISTORY OF 2011 ORIF R ankle PAST SURGICAL HISTORY OF 2000 Bartholin cyst excised TOTAL ABDOMINAL HYSTERECT W/WO RMVL TUBE OVARY 1982 cervical cancer, still has ovaries VAGINAL HYSTERECTOMY Family History FAMILY HISTORY Problem Relation Age of Onset Diabetes Father late in life Coronary Artery Disease Father Hx of [place], age 71 Tremor Mother Hypertension Mother Cancer Brother Cancer Brother lymphoma - 55; h/o kidney transplant Cancer Brother Mestatic Aneurysm Sister brain Lung Cancer Sister dies at 52 Bipolar disorder Son Tremor Son Colon Cancer Niece Tremor Niece Hyperlipidemia No Family History Blood Clots No Family History Blood Disease No Family History Factor 5 Leiden No Family History DVT No Family History Stroke No Family History Schizophrenia No Family History Systemic Lupus Erythematosus No Family History Multiple Sclerosis No Family History Alzheimer's Disease No Family History Parkinson?s Disease No Family History Patient Allergies ALLERGIES Allergen Reactions Sulfasalazine Rash Current Medications Current Outpatient Medications on File Prior to Visit Medication Sig metoprolol succinate ER (TOPROL XL) 50 mg 24 hr tablet Take 1 tablet by mouth two times a day. primidone (MYSOLINE) 250 mg tablet Take 1 tablet by mouth daily at bedtime. Blood Pressure Test Kit-Large (QUICK RESPONSE BP MONITOR) 1 Each once daily. amLODIPine (NORVASC) 2.5 mg tablet Take 1 tablet by mouth once daily. predniSONE (DELTASONE) 10 mg tablet Take 1 tablet by mouth once daily. Take in the morning with food. travoprost (TRAVATAN Z) 0.004 % ophthalmic drops 1 Drop. loperamide (IMODIUM) 2 mg cap(s) Take 2 mg by mouth four times daily as needed. No current facility-administered medications on file prior to visit. Social History Social History Tobacco Use Smoking status: Every Day Current packs/day: 1.00 Average packs/day: 1 pack/day for 35.0 years (35.0 ttl pk-yrs) Types: Cigarettes Smokeless tobacco: Never Vaping Use Vaping status: Never Used Substance Use Topics Alcohol use: No Drug use: No Review of Symptoms REVIEW OF SYSTEMS See HPI, otherwise negative EXAM: BP 114/62 (BP Site: Left Arm, BP Position: Sitting, BP Cuff Size: Regular Adult) Pulse 61 Resp 16 Wt 66.2 kg (146 lb) SpO2 100% BMI 23.93 kg/m? General Appearance: Well appearing, alert, in no acute distress, well-hydrated, well nourished.. Skin: small dime-s (more content not included)...[facility] 05-23-2024 History of Present illness Narrative* Wily Abarca APRN.SHINGLE INSPECTOR - 05/23/2024 1:34 PM EDT Chief Complaint Patient presents with: F/U 6 months: BP HPI Cecelia Ibis Quiroz is a 74 year old female who presents here today for Above Complaints. BP-can be having pain and not realize it because she has a high pain tolerance- so thinks this may increase her BP when there doesn't actually seem to be a reason. Has a hornet sting on the back of her neck. [place] and saw it after riding under a tree on the lawnmower. Has been going to a wellness center and they have recommended she have H. Pylori check. Past medical history, appointments, medications, allergies reviewed. Previous Medical History PAST MEDICAL HISTORY Diagnosis Date Actinic keratosis Autoimmune disease (HCC) Cancer (HCC) 1982 Uterine Cephalalgia Cholelithiasis Depression Diarrhea Disorder of bone and cartilage, unspecified Diverticulitis of colon (without mention of hemorrhage)(562.11) 2003 Dysphagia Essential hypertension 12/28/2021 GCA (giant cell arteritis) (HCC) bx negative GERD (gastroesophageal reflux disease) Glaucoma Hematuria 1999 had workup including cystoscopy, etc. - entire workup negative. No longer happening. IBS (irritable bowel syndrome) Iron deficiency anemia, unspecified ? related to UGI source from NSAID's Mixed hyperlipidemia Palpitations PMR (polymyalgia rheumatica) (HCC) Raynaud's disease /phenomenon Sciatica Steroid long-term use Thyroid nodule Tobacco use disorder Previous Surgical History PAST SURGICAL HISTORY Procedure Laterality Date ABDOMINAL SURGERY HX APPENDECTOMY 1982 incidental APPENDECTOMY HX BREAST SURGERY HX CATARACT EXTRACTION HX bilateral CHOLECYSTECTOMY Cholecystectomy COLONOSCOPY 2012 COLONOSCOPY FLX DX W/COLLJ SPEC WHEN PFRMD 05/09/2021 ESOPHAGOGASTRODUODENOSCOPY TRANSORAL DIAGNOSTIC 07/05/2015 EGD ESOPHAGOGASTRODUODENOSCOPY TRANSORAL DIAGNOSTIC 05/09/2021 EYE SURGERY HX FINE NEEDLE ASPIRATION 04/30/2023 Thyroid FNA FRACTURE SURGERY LEFT HEART CATH,PERCUTANEOUS 2011 Cardiac cath, L heart. Normal PAST SURGICAL HISTORY OF 1987 ulnar ner transferred PAST SURGICAL HISTORY OF 1990 bartholin cyst on vagina PAST SURGICAL HISTORY OF 2005 bone spur to left shoulder PAST SURGICAL HISTORY OF 2007 left knee -- torn meniscus ([place]) PAST SURGICAL HISTORY OF 2011 ORIF R ankle PAST SURGICAL HISTORY OF 2000 Bartholin cyst excised TOTAL ABDOMINAL HYSTERECT W/WO RMVL TUBE OVARY 1982 cervical cancer, still has ovaries VAGINAL HYSTERECTOMY Family History FAMILY HISTORY Problem Relation Age of Onset Diabetes Father late in life Coronary Artery Disease Father Hx of [place], age 71 Tremor Mother Hypertension Mother Cancer Brother Cancer Brother lymphoma - 55; h/o kidney transplant Cancer Brother Mestatic Aneurysm Sister brain Lung Cancer Sister dies at 52 Bipolar disorder Son Tremor Son Colon Cancer Niece Tremor Niece Hyperlipidemia No Family History Blood Clots No Family History Blood Disease No Family History Factor 5 Leiden No Family History DVT No Family History Stroke No Family History Schizophrenia No Family History Systemic Lupus Erythematosus No Family History Multiple Sclerosis No Family History Alzheimer's Disease No Family History Parkinson s Disease No Family History Patient Allergies ALLERGIES Allergen Reactions Sulfasalazine Rash Current Medications Current Outpatient Medications on File Prior to Visit Medication Sig metoprolol succinate ER (TOPROL XL) 50 mg 24 hr tablet Take 1 tablet by mouth two times a day. primidone (MYSOLINE) 250 mg tablet Take 1 tablet by mouth daily at bedtime. Blood Pressure Test Kit-Large (QUICK RESPONSE BP MONITOR) 1 Each once daily. amLODIPine (NORVASC) 2.5 mg tablet Take 1 tablet by mouth once daily. predniSONE (DELTASONE) 10 mg tablet Take 1 tablet by mouth once daily. Take in the morning with food. travoprost (TRAVATAN Z) 0.004 % ophthalmic drops 1 Drop. loperamide (IMODIUM) 2 mg cap(s) Take 2 mg by mouth four times daily as needed. No current facility-administered medications on file prior to visit. Social History Social History Tobacco Use Smoking status: Every Day Current packs/day: 1.00 Average packs/day: 1 pack/day for 35.0 years (35.0 ttl pk-yrs) Types: Cigarettes Smokeless tobacco: Never Vaping Use Vaping status: Never Used Substance Use Topics Alcohol use: No Drug use: No Review of Symptoms REVIEW OF SYSTEMS See HPI, otherwise negative EXAM: BP 114/62 (BP Site: Left Arm, BP Position: Sitting, BP Cuff Size: Regular Adult) Pulse 61 Resp 16 Wt 66.2 kg (146 lb) SpO2 100% BMI 23.93 kg/m General Appearance: Well appearing, alert, in no acute distress, well-hydrated, well nourished.. Skin: small dime-size mildly erythremic area, is not swollen, no warmth. Lungs: Lungs clear to auscultation. No wheezing, rhonchi, rales.. Heart: RRR without murmur, gallop, or rubs. No ectopy. Psychiatric: pleasant, cooperative. Health Maintenance List Depression Screening Never done Anxiety Screening Never done Advance Directive Discussion Never done Influenza Vaccine(1) due on 04/20/2024 Covid-19 Vaccine( season) due on 04/20/2024 Mammogram Screening due on 10/08/2024 Lung Cancer Screening due on 01/07/2025 Bone Density Screening due on 02/26/2025 Annual PCP Team Chronic Disease Visit due on 03/26/2025 RSV Vaccine(1 - 1-dose 75+ series) due on 2025 BP Controlled (<130/80) due on 2025 Diabetes Screening due on 12/16/2026 Lipid Screening due on 12/16/2028 Colorectal Cancer Screening due on 05/09/2031 DTaP,Tdap,Td Vaccine(3 - Td or Tdap) due on 06/25/2032 Hepatitis C Screening Completed Shingrix Vaccine Completed Pneumococcal Vaccine: 65+ Completed Cervical Cancer Screening Discontinued Data reviewed Previous records, office notes ASSESSMENT/PLAN: 1. Essential hypertension - ICD9: 401.9, ICD10: I10 (primary diagnosis) Will hold her amlodipine 2.5mg, x2 weeks. Declining office f/u, but will monitor BP daily and send in results via [facility], will then decide if there is a need for the amlodipine or not. BP goal to be <130/80. 2. Ganglion cyst - ICD9: 727.43, ICD10: M67.40 Monitor. 3. Hornet sting, accidental or unintentional, initial encounter - ICD9: 989.5, E905.3, ICD10: T63.451A Resolving, monitor. 4. Diarrhea due to malabsorption - ICD9: 579.9, 787.91, ICD10: K90.9, R19.7 Per patient. Discussed that lab work is not accurate of an active h pylori infection, but patient insistent on blood draw and not stool. - H PYLORI IGG AB Wily Abarca APRN.SHINGLE INSPECTOR documented in this encounterSum[facility]09-24-2024 Telephone encounter Note * Telephone Encounter - Anca Spencer - 05/13/2024 10:19 AM EDT Prescription Refill Information The patient has been identified by name and date of : Yes Caregiver verified no other encounters exist for this prescription request: Yes Caregiver confirmed with patient/requestor that no other refills are due, in the near future, with this provider at this time: Yes The last office visit in the department: 03-26-24 Does the patient have a future office visit with this provider/department: Yes Requested Prescriptions Pending Prescriptions Disp Refills metoprolol succinate ER (TOPROL XL) 50 mg 24 hr tablet 180 tablet 0 Sig: Take 1 tablet by mouth two times a day. Anca Gross May 13, 2024 10:19 AM [facility]09-24-[facility] Miscellaneous Notes* Telephone Encounter - Anca Spencer - 05/13/2024 10:19 AM EDT Prescription Refill Information The patient has been identified by name and date of : Yes Caregiver verified no other encounters exist for this prescription request: Yes Caregiver confirmed with patient/requestor that no other refills are due, in the near future, with this provider at this time: Yes The last office visit in the department: 03-26-24 Does the patient have a future office visit with this provider/department: Yes Requested Prescriptions Pending Prescriptions Disp Refills metoprolol succinate ER (TOPROL XL) 50 mg 24 hr tablet 180 tablet 0 Sig: Take 1 tablet by mouth two times a day. Anca Gross May 13, 2024 10:19 AM documented in this encounterSumma [facility]08-27-2024 History of Present illness Narrative* Marko Wood MD - 04/15/2024 7:37 AM EDT [facility] - FOLLOW UP EVALUATION Miah Cottrell DO [id number] [facility] [id number] Dear Miah Cottrell DO: I had the pleasure of seeing Ms. Quiroz for follow-up today. As you know she is a 74 year old right-handed female with a history of tremor since age 12 . She is seen alone. Subjective Previous Plan-04/19/2023 Visit: Continue your medications as you have been taking them. We are not making any changes today. If youfeel you are not tolerating them or your symptoms are changing before your next appointment, pleasefeel free to send me a [employer] message or contact the office - Interval History: Having side effects from her PMR medications. Tremor is pretty good. Barely there. Worse if she is upset which isn't often. Lower back pain. No trigger. Urinary urgency last night once but otherwise no hematuria or dysuria. Neck spasms when she yawns or moves her head in a certain direction. Radiates up the side of her head. Limited head turn to left which isn't new. Otherwise ROM is ok. Recommended to see spine 2 yearsago but didn't go. Movement Disorders Medications Schedule - as of the start of the visit: Medications Bed metoprolol ER 50 mg daily primidone 250 mg 1 Other Movement Disorder Prior Therapies Propranolol, Primidone propranolol caused diarrhea but did help tremors Questionnaires: In addition, the following areas that may be affected by abnormal involuntary movements were evaluated: Daily activities Difficulties with eatin (none) Difficulties in dressin (none) Difficulties with hygiene activities: 0 (none) Difficulties with handwritin (none) Difficulties with doing hobbies and other activities: 0 (none) Difficulties turning in bed: Yes (slight) Difficulties getting out of bed, car or chair: 0 (none) Tremors/Gait/Balance Shaking or tremors: 0 (none) Walking and balance problems: 0 (none) Number of falls in the Last Month: 0 Gait freezin (none) Autonomic/Pain Lightheadeness on standin (none) Urinary problems: Yes (mild) Constipation problems: 0 (none) Pain and other sensations: Yes (slight) Speech/Swallowing Speech problems: 0 (none) Droolin (none) Chewing and swallowing problems: 0 (none) Sleep/Fatigue Sleep problems: Yes (mild) Daytime sleepiness: Yes (slight) Fatigue: Yes (mild) Mood/Behavior Depression: PHQ-9 Score: 7 usually representing mild (5-9) depression. Anxiety: RICHARD-7 Total Score: 0 usually representing no significant (0-4) anxiety. Finally, the following table shows the patient's overall global physical and mental health using the PROMIS scale: PROMIS-10 Flowsheet Row Office Visit from 2024 in Neurology Office Visit from 01/09/2024 in Family [facility] [place] Global Physical Health T Score 44.9 37.4 Global Mental Health T Score 48.3 41.1 0-10 Standard Pain Scale 2 2 *PROMIS-10 scoring scale: mean = 50, over 50 is above average, under 50 is below average In addition, the following Parkinson Lifestyle-associated features were evaluated: Conditions Prior to Dx: Depression: No Anxiety: Melanoma: No Constipation: No Yelling: No Head Trauma: No Habits/exposures Prior to Dx Smoking: Caffeinated coffee (1-cup+): Caffeinated soda/tea (2 cups+): Alcohol (1 bottle/shot/glass+): Exercise (3x/wk+): Ibuprofen use (1x/wk+): 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 amLODIPine (NORVASC) 2.5 mg tablet Take 1 tablet by mouth once daily. metoprolol succinate ER (TOPROL XL) 50 mg 24 hr tablet Take 1 tablet by mouth two times a day. predniSONE (DELTASONE) 10 mg tablet Take 1 tablet by mouth once daily. Take in the morning with food. travoprost (TRAVATAN Z) 0.004 % ophthalmic drops 1 Drop. loperamide (IMODIUM) 2 mg cap(s) Take 2 mg by mouth four times daily as needed. primidone (MYSOLINE) 250 mg tablet Take 1 tablet by mouth daily at bedtime. No current facility-administered medications for this visit. Objective Vital Signs: BP 111/68 (BP Site: Left Arm, BP Position: Sitting, BP Cuff Size: Regular Adult) Pulse 62 Wt 66.3 kg (146 lb 2.6 oz) SpO2 99% BMI 23.95 kg/m Orthostatic Vitals: None for this encounter Weight: 66.3 kg (146 lb 2.6 oz) No LMP recorded. Patient has had a hysterectomy. Body mass index is 23.95 kg/m . General Physical Examination: General: Awake, alert, interactive, no acute distress, good nutritional status, normal development,well-kept General Neurological Examination: Neurological Exam Mental Status Awake and alert. Language is fluent with no aphasia. Motor Bilateral upper extremity action tremors are mild. Reduced ROM with head turn left. No head tremor or abnormal head postures. Gait Stable gait. Assessment and Plan: Assessment Ms. Quiroz is a right-handed 74 year old year old female with essential tremor. She is currently happy with her current tremor control. No change to medications. Also with neck pain which is chronic. She was referred to spine by rheumatology in the past but shedidn't go. The following are the current problems noted and addressed during this visit: Essential tremor Plan 2024 Visit: Continue your medications as you have been taking them. We are not making any changes today. If youfeel you are not tolerating them or your symptoms are changing before your next appointment, pleasefeel free to send me a [employer] message or contact the office - Updated Movement Disorders Medication Schedule: Medications Bed metoprolol ER 50 mg daily primidone 250 mg 1 Return at or around: 04/14/25 Medical Decision Making: Problems: Low: Stable chronic illness Risk: Moderate: Drug management Medical Decision Making Level: 3 - Low Thank you for allowing me to be part of the clinical care of this patient! I look forward to continued participation in the patient s care with you. Please do not hesitate to call with any questions. Sincerely, Marko Wood MD documented in this encounterSumma [facility]08-12-2024 History of Present illness Narrative* Ady Mackenzie MD - 03/31/2024 12:19 PM EDT Patient presents with: Rash: Rash on right arm, chest, and legs x 1 week HPI: Rash: Location: right arm, chest, legs Duration: 1 week Pruritis: Yes Pain: No Change: rash started on the right arm and spread (no new spread the last few days), resolved on theleft arm Bleeding/ulceration/blister/pustule: red patches, dots on the legs Contacts with rash: No Exposure: has dog and cat. Outdoor exposure: No. Change in medications: stopped sulfasalazine afterrash developed. Recent illness: initial diarrhea, sore mouth this weekend. Treatment: Prescribed triamcinolone cream by primary care 03/26/24. Had taken 3 days of 40mg prednisone, 30mg today. PAST MEDICAL HISTORY No date: Actinic keratosis No date: Autoimmune disease ([facility]) 1982: Cancer ([facility]) Comment: Uterine No date: Cephalalgia No date: Cholelithiasis No date: Depression No date: Diarrhea No date: Disorder of bone and cartilage, unspecified 2003: Diverticulitis of colon (without mention of hemorrhage)(562.11) No date: Dysphagia 12/28/2021: Essential hypertension No date: GCA (giant cell arteritis) ([facility]) Comment: bx negative No date: GERD (gastroesophageal reflux disease) No date: Glaucoma 1999: Hematuria Comment: had workup including cystoscopy, etc. - entire workup negative. No longer happening. No date: IBS (irritable bowel syndrome) No date: Iron deficiency anemia, unspecified Comment: ? related to UGI source from NSAID's No date: Mixed hyperlipidemia No date: Palpitations No date: PMR (polymyalgia rheumatica) ([facility]) No date: Raynaud's disease /phenomenon No date: Sciatica No date: Steroid long-term use No date: Thyroid nodule No date: Tobacco use disorder MEDICATIONS: triamcinolone acetonide (KENALOG) 0.1 % cream Apply 1 application to affected area two times a day for 14 days. Apply to affected area. Location: right arm Blood Pressure Test Kit-Large (QUICK RESPONSE BP MONITOR) 1 Each once daily. amLODIPine (NORVASC) 2.5 mg tablet Take 1 tablet by mouth once daily. metoprolol succinate ER (TOPROL XL) 50 mg 24 hr tablet Take 1 tablet by mouth two times a day. predniSONE (DELTASONE) 10 mg tablet Take 1 tablet by mouth once daily. Take in the morning with food. primidone (MYSOLINE) 250 mg tablet Take 1 tablet by mouth daily at bedtime. travoprost (TRAVATAN Z) 0.004 % ophthalmic drops 1 Drop. loperamide (IMODIUM) 2 mg cap(s) Take 2 mg by mouth four times daily as needed. ALLERGIES: ALLERGIES Allergen Reactions Sulfasalazine Rash VITALS: BP 142/70 Pulse 87 Temp 36.8 C (98.3 F) Resp 20 Wt 66.3 kg (146 lb 2.6 oz) SpO2 98% BMI23.95 kg/m PHYSICAL EXAM: GEN: pleasant, no acute distress, alert SKIN: red raised rash with trace scale right antecubital fossa. Irregular less confluent streaks/patches of rash right biceps and upper chest. No rash on left arm. ASSESSMENT/PLAN: 1. Allergic contact dermatitis, unspecified trigger - ICD9: 692.9, ICD10: L23.9 Suspect contact dermatitis (pet vector) based on character and distribution. Continue increased prednisone dose (taper 40 mg for 3 days, 30 mg for 3 days, 20 mg for 3 days) then resume baseline 10 mg/day prednisone dose. Follow-up if worsening or failure to improve. Ady Mackenzie MD documented in this encounterSumma Health [facility]08-07-2024 Instructions* Patient Instructions* Carly Ramirez APRN.CNP - 03/26/2024 1:21 PM EDT Recommend stopping Sulfasalazine at this time and letting provider know it was stopped. If rash notimproving follow-up with PCP documented in this encounterSumma Health [facility]08-07-2024 History of Present illness Narrative* Carly Ramirez APRN.CNP - 03/26/2024 1:00 PM EDT 03/26/2024 Patient presents with: Rash SUBJECTIVE: This is a 73 year old that is here today for Above Complaints. ONSET: 3 days ago LOCATION: right arm DURATION: constant CHARACTERISTICS: itches AGGRAVATING FEATURES: nothing ALLEVIATING FEATURES:simone dry RADIATION:no Recent Illness: no Any recent travel: no Contacts with same rashes: no Hx of eczema: no Hx of psoriasis: no Recent Tanning: no Any new: Lotions: no Detergents: no Soaps: no Make up: no Clothing: no Bedding: no Medications: yes- Sulfasalazine Denies tongue/lip swelling, throat swelling, SOB, or dyspnea PAST MEDICAL HISTORY No date: Actinic keratosis No date: Autoimmune disease ([facility]) 1983: Cancer ([facility]) Comment: Uterine No date: Cephalalgia No date: Cholelithiasis No date: Depression No date: Diarrhea No date: Disorder of bone and cartilage, unspecified 2003: Diverticulitis of colon (without mention of hemorrhage)(562.11) No date: Dysphagia 12/28/2021: Essential hypertension No date: GCA (giant cell arteritis) ([facility]) Comment: bx negative No date: GERD (gastroesophageal reflux disease) No date: Glaucoma 1999: Hematuria Comment: had workup including cystoscopy, etc. - entire workup negative. No longer happening. No date: IBS (irritable bowel syndrome) No date: Iron deficiency anemia, unspecified Comment: ? related to UGI source from NSAID's No date: Mixed hyperlipidemia No date: Palpitations No date: PMR (polymyalgia rheumatica) ([facility]) No date: Raynaud's disease /phenomenon No date: Sciatica No date: Steroid long-term use No date: Thyroid nodule No date: Tobacco use disorder ALLERGIES Patient has no known allergies. MEDICATIONS Current Outpatient Medications Medication Sig sulfaSALAzine (AZULFIDINE) 500 mg tablet 500mg once/day x1 week, then 500mg twice/day thereafter Blood Pressure Test Kit-Large (QUICK RESPONSE BP MONITOR) 1 Each once daily. amLODIPine (NORVASC) 2.5 mg tablet Take 1 tablet by mouth once daily. metoprolol succinate ER (TOPROL XL) 50 mg 24 hr tablet Take 1 tablet by mouth two times a day. predniSONE (DELTASONE) 10 mg tablet Take 1 tablet by mouth once daily. Take in the morning with food. primidone (MYSOLINE) 250 mg tablet Take 1 tablet by mouth daily at bedtime. travoprost (TRAVATAN Z) 0.004 % ophthalmic drops 1 Drop. loperamide (IMODIUM) 2 mg cap(s) Take 2 mg by mouth four times daily as needed. No current facility-administered medications for this visit. Medications and allergies reviewed by this provider. SOCIAL HISTORY Social History Tobacco Use Smoking status: Every Day Packs/day: 1.00 Years: 35.00 Additional pack years: 0.00 Total pack years: 35.00 Types: Cigarettes Smokeless tobacco: Never Vaping Use Vaping Use: Never used Substance Use Topics Alcohol use: No Drug use: No REVIEW OF SYSTEMS All other reviewed and negative other than HPI. OBJECTIVE: BP 116/74 Pulse 72 Temp 36.1 C (97 F) (Temporal) Resp 20 Wt 66.9 kg (147 lb 7.8 oz) BMI 24.17 kg/m . Vital signs reviewed by this provider. APPEARANCE Well appearing, alert, in no acute distress, well-hydrated, well nourished. SKIN Papular area or erythema without excessive warmth to right AC area and right upper arm. No excessive warmth or drainage Depression Screening Never done Anxiety Screening Never done Cervical Cancer Screening due on 04/16/2015 Advance Directive Discussion Never done Covid-19 Vaccine( season) due on 06/15/2024 RSV Vaccine(1 - 1-dose 60+ series) due on 01/08/2025 Influenza Vaccine(1) due on 04/20/2024 Mammogram Screening due on 10/08/2024 Lung Cancer Screening due on 01/07/2025 Annual PCP Team Chronic Disease Visit due on 02/17/2025 BP Controlled (<130/80) due on 02/17/2025 Bone Density Screening due on 02/26/2025 Diabetes Screening due on 12/16/2026 Lipid Screening due on 12/16/2028 Colorectal Cancer Screening due on 05/09/2031 DTaP,Tdap,Td Vaccine(3 - Td or Tdap) due on 06/25/2032 Hepatitis C Screening Completed Shingrix Vaccine Completed Pneumococcal Vaccine: 65+ Completed ASSESSMENT/PLAN: 1. Rash - ICD9: 782.1, ICD10: R21 - possible drug reaction - no red flag symptoms or exam findings - red flag symptoms discussed, verbalizes understanding - stop Sulfasalazine and contact ordering provider to let them know - may apply small amount of cream to area of itching- would also recommend oat meal bath and cool compresses - TRIAMCINOLONE ACETONIDE 0.1 % TOPICAL CREAM - if not improving follow-up with PCP to ER with red flag symptoms Carly Ramirez APRN.IRINEO Prescription instructions reviewed with patient as applicable. Patient advised if symptoms do not improve or if symptoms worsen sooner, to contact their primary care physician. Potential red flag symptoms discussed with the patient. Reviewed appropriate action plan to take if red flag symptoms occur. Patient agreeable to treatment plan. Medical Decision Making: Problems: Moderate: New problem with uncertain prognosis Risk: Moderate: Drug management Medical Decision Making Level: 4 - Moderate documented in this encounter[facility] History of Present illness Narrative* Magdalene Bradford MD - 03/18/2024 3:19 PM EDT On 03/18/2024, I had the pleasure of evaluating Cecelia Quiroz in a follow-up [facility] appointment for GCA, PMR and osteoporosis. This Team Access Model visit is a virtual encounter utilizing both video and audio components. It required patient-provider interaction for the medical decision making as documented below. My name and active licensure have been communicated. The patient's identity and physical location were verified at the time of this visit. Either the patient or their legal junior sales representative has been informed of the risks and benefits of -- and alternatives to -- treatment through a remote evaluation and consents to proceed with the evaluation remotely. 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 With negative TA biopsies x2 - From Jun-Sep, on MTX which was stopped due to inefficacy - In October, started on acemtra which was stopped after 3 infusions - In Apr, fell off a trailer and broke L humerus - In Jul, seen by Dr. Gonzalez. On baseline prednisone 10mg/day. Given medrol dose pack for flarewith plans to return to prednisone 10mg/day thereafter. She was hesitant to reduce baseline pred 10mg/day further given previous attempts to taper led to flares of pain and headache - On 07/28/19, received prolia - In October, reported baseline pain in the R>L shoulders/arms. Not flaring. On pred 10mg/day - In January and Apr, reported stable PMR on pred 10mg/day - In Aug, reported taking pred 10mg/day. Taking forteo. No interim fracture. - In February, started on HCQ given active pain. pred 10mg/day continued - On 05/16/21, reported no improvement in L shoulder, neck and base of skull pain w/pred 20mg/day. Referred to spine and PT - In May reported taking pred 10mg/day. Continued to have significant pain awakening her at night, located in L side of the neck/base of skull. Prescribed a pred 40mg taper - In Aug, reported no change with increased pred dose. On pred 10mg/day at the time of the visit. Was off HCQ so advised to resume - In November, reported no change on HCQ. Remained on pred 10mg/day. Resumed forteo 3 months prior(was off x2 months prior to that as she had run out) - In February, reported feeling the same. On pred 10mg/day. Was to have stopped forteo in last but was still taking it. Forteo stopped, last dose in February. Was advised to resume prolia but was waiting for surgery clearance given ankle surgery. Off HCQ. - In Mar s/p R ankle surgery (hardware removal) - In Apr, prednisone course helped a lot. Started MTX SC - In Jul, reported MTX didn't help. Hurt worse and felt nausea/fatigue with it. On pred 10mg/day - In Jan, reported flares on lower than pred 10mg/day so 10mg/day continued. Had to temporarilyincrease to 40mg for a flare which helped, then back to 10mg/day - In Jan, Jul and Jan, given prolia - In Jan, advised to start HCQ while on pred 10mg/day. Had taken one dose of 20mg a couple of days prior for increased upper back and R>L proximal arm pain, which helped. Back on 10mg/day. - Today, reports she had diarrhea and dizziness with the first week of HCQ. Tried 1/2 tablet every other day with the same issue. - Hx of PUD - Last plaquenil eye exam normal in Sep (had been off HCQ-resuming today) PAST MEDICAL HISTORY Diagnosis Date Actinic keratosis Autoimmune disease (HCC) Cancer (HCC) 1982 Uterine Cephalalgia Cholelithiasis Depression Diarrhea Disorder of bone and cartilage, unspecified Diverticulitis of colon (without mention of hemorrhage)(562.11) 2003 Dysphagia Essential hypertension 12/28/2021 GCA (giant cell arteritis) (HCC) bx negative GERD (gastroesophageal reflux disease) Glaucoma Hematuria 1999 had workup including cystoscopy, etc. - entire workup negative. No longer happening. IBS (irritable bowel syndrome) Iron deficiency anemia, unspecified ? related to UGI source from NSAID's Mixed hyperlipidemia Palpitations PMR (polymyalgia rheumatica) (HCC) Raynaud's disease /phenomenon Sciatica Steroid long-term use Thyroid nodule Tobacco use disorder PAST SURGICAL HISTORY Procedure Laterality Date ABDOMINAL SURGERY HX APPENDECTOMY 1982 incidental APPENDECTOMY HX BREAST SURGERY HX CATARACT EXTRACTION HX bilateral CHOLECYSTECTOMY Cholecystectomy COLONOSCOPY 2012 COLONOSCOPY FLX DX W/COLLJ SPEC WHEN PFRMD 05/09/2021 ESOPHAGOGASTRODUODENOSCOPY TRANSORAL DIAGNOSTIC 07/05/2015 EGD ESOPHAGOGASTRODUODENOSCOPY TRANSORAL DIAGNOSTIC 05/09/2021 EYE SURGERY HX FINE NEEDLE ASPIRATION 04/30/2023 Thyroid FNA FRACTURE SURGERY LEFT HEART CATH,PERCUTANEOUS 2011 Cardiac cath, L heart. Normal PAST SURGICAL HISTORY OF 1987 ulnar ner transferred PAST SURGICAL HISTORY OF 1990 bartholin cyst on vagina PAST SURGICAL HISTORY OF 2005 bone spur to left shoulder PAST SURGICAL HISTORY OF 2007 left knee -- torn meniscus ([facility]) PAST SURGICAL HISTORY OF 2011 ORIF R ankle PAST SURGICAL HISTORY OF 2000 Bartholin cyst excised TOTAL ABDOMINAL HYSTERECT W/WO RMVL TUBE OVARY 1982 cervical cancer, still has ovaries VAGINAL HYSTERECTOMY ALLERGIES No Known Allergies MEDICATIONS: Current Outpatient Medications Medication Sig Blood Pressure Test Kit-Large (QUICK RESPONSE BP MONITOR) 1 Each once daily. amLODIPine (NORVASC) 2.5 mg tablet Take 1 tablet by mouth once daily. hydrOXYchloroQUINE (PLAQUENIL) 200 mg tablet Take 200mg (1 tablet) once daily Mondays-Fridays and 200mg (1 tablet) twice daily on Saturdays and Sundays metoprolol succinate ER (TOPROL XL) 50 mg 24 hr tablet Take 1 tablet by mouth two times a day. predniSONE (DELTASONE) 10 mg tablet Take 1 tablet by mouth once daily. Take in the morning with food. primidone (MYSOLINE) 250 mg tablet Take 1 tablet by mouth daily at bedtime. travoprost (TRAVATAN Z) 0.004 % ophthalmic drops 1 Drop. loperamide (IMODIUM) 2 mg cap(s) Take 2 mg by mouth four times daily as needed. No current facility-administered medications for this visit. FAMILY HISTORY Problem Relation Age of Onset Diabetes Father late in life Coronary Artery Disease Father Hx of [place], age 71 Tremor Mother Hypertension Mother Cancer Brother Cancer Brother lymphoma - 55; h/o kidney transplant Cancer Brother Mestatic Aneurysm Sister brain Lung Cancer Sister dies at 52 Bipolar disorder Son Tremor Son Colon Cancer Niece Tremor Niece Hyperlipidemia No Family History Blood Clots No Family History Blood Disease No Family History Factor 5 Leiden No Family History DVT No Family History Stroke No Family History Schizophrenia No Family History Systemic Lupus Erythematosus No Family History Multiple Sclerosis No Family History Alzheimer's Disease No Family History Parkinson s Disease No Family History SOCIAL HISTORY: Lives in [place]. Works. Family lives in [place] Tobacco use: 1 ppd Alcohol use: None REVIEW OF SYSTEMS: reviewed 06/02 systems, as above *October Widespread Pain Index: 12 (0-19) Symptoms Severity Scale: 4 (0-12) WPI>7 and SS Scale>5 OR WPI 3-6 and SS Scale >9 consistent with fibromyalgia LABORATORY: Latest Ref Rng 10/22/2023 12/17/2023 Protein, Total 6.3 - 8.0 g/dL 7.4 Albumin 3.9 - 4.9 g/dL 4.0 Calcium 8.5 - 10.2 mg/dL 9.2 Bilirubin, Total 0.2 - 1.3 mg/dL 0.2 Alkaline Phosphatase 34 - 123 U/L 89 AST 13 - 35 U/L 18 ALT 7 - 38 U/L 8 Glucose 74 - 99 mg/dL 87 BUN 7 - 21 mg/dL 12 Creatinine 0.58 - 0.96 mg/dL 0.72 Sodium 136 - 144 mmol/L 136 Potassium 3.7 - 5.1 mmol/L 4.2 Chloride 97 - 105 mmol/L 100 CO2 22 - 30 mmol/L 25 Anion Gap 9 - 18 mmol/L 11 eGFR >=60 mL/min/1.73m 88 Vitamin D 25 Hydroxy 31.0 - 80.0 ng/mL 47.6 Latest Ref Rng 10/22/2023 WSR 0 - 20 mm/hr 54 (H) CRP <0.9 mg/dL 1.3 (H) *Apr neg quant gold, hep b/c Component Latest Ref Rng & Units 11/21/2019 01/30/2020 04/30/2020 Creatinine 0.58 - 0.96 mg/dL 0.90 eGFR- >60 eGFR-All Other Races . >60 Calcium 8.5 - 10.2 mg/dL 9.4 PTH, Intact 15 - 65 pg/mL 36 Vitamin D 25 Hydroxy 31.0 - 80.0 ng/mL 36.6 WSR 0 - 20 mm/hr 54 (H) CRP <0.9 mg/dL 0.5 STUDIES: *February DXA- IMPRESSION: THE LOWEST T-SCORE IS -2.2 IN THE LEFT HIP Lumbar spine (L1-L4): 1.005 g/cm2 , T-score -0.4 , Z-score 1.9 . 0.120 g/sq cm improved Left Femoral Neck: 0.603 g/cm2 , T-score-2.2 , Z-score-0.3 . Not significantly changed Left Total Hip: 0.789 g/cm2 , T-score-1.3 , Z-score 0.4 . Right Femoral Neck: 0.660 g/cm2 , T-score -1.7 , Z-score0.3 . 0.072 g/sq cm improved Right Total Hip: 0.769 g/cm2 , T-score-1.4 , Z-score 0.2 *May CXR- no acute changes *January DXA- IMPRESSION: THE LOWEST T-SCORE IS -2.1 IN THE RIGHT HIP 1) DIAGNOSIS (based on BMD alone): OSTEOPENIA . There has been no significant interval change Lumbar spine (L1-L4): 1.132 g/cm2 , T-score -0.4, Z-score 1.5 . Left Femoral Neck: 0.776 g/cm2 , T-score-1.9, Z-score0. . This is not significantly changed Left Total Hip: 0.787 g/cm2 , T-score-1.7, Z-score 0. . This is not significantly changed Right Femoral Neck: 0.781 g/cm2 , T-score -1.8, Z-score0.1 . This is not significantly changed Right Total Hip: 0.742 g/cm2 , T-score-2.1, Z-score -0.4 . This is not significantly changed *February DEXA- THE LOWEST T-SCORE IS -2.1 IN THE LEFT femoral neck. This has been a statistically significant decrease in the bone density since the previous study. Lumbar spine (L1-L4): 1.107 g/cm2, T-score -0.6, Z-score 1.3 . Left Femoral Neck: 0.740 g/cm2 , T-score-2.1, Z-score-0.3 . Previous BMD(g/cm2 ) 0.784 . The change is statistically significant. Left Total Hip: 0.756 g/cm2 , T-score-2., Z-score -0.4 . Right Femoral Neck: 0.773 g/cm2 , T-score -1.9, Z-score-0.1 . Right Total Hip: 0.75 g/cm2 , T-score-2., Z-score -0.4 1) DIAGNOSIS (based on BMD alone): OSTEOPENIA *January DEXA- Osteopenia of the bilateral hips LUMBAR SPINE: The bone mineral density from L1 through L4 is 1.129 grams per square centimeter which yields a T-score of -0.4. . LEFT HIP: The bone mineral density of the total region of the hip is 0.804 grams per square centimeter which yields a T-score of -1.6. . LEFT FEMORAL NECK: The bone mineral density of the femoral neck is 0.784 grams per square centimeter which yields a T-score of -1.8. . RIGHT HIP: The bone mineral density of the total region of the hip is 0.768 grams per square centimeter which yields a T-score of -1.9. . RIGHT FEMORAL NECK: The bone mineral density of the femoral neck is 0.777 grams per square centimeter which yields a T-score of -1.9. *January DEXA- IMPRESSION: Severe osteopenia in both femoral necks, significant decline in R femoral neck. LUMBAR SPINE: The bone mineral density from L1 through L4 is 0.885 grams per square centimeter which yields a T-score of -1.5. This is 3.9% mproved. LEFT HIP: The bone mineral density of [...] T-score of -2.4. This is 3.9% worse. IMPRESSION and PLAN: 1. PMR/GCA: Steroid-responsive shoulder/hip pain and CT neck with findings suspicious for vasculitis with negative TA biopsies x2. Has tried: HCQ (diarrhea/dizziness), MTX PO/SC and actemra without improvement-MTX SC with nausea too. Remains on pred 10mg/day. Tried HCQ again with side effects - Continue prednisone 10mg/day (flares on doses <9mg/day) - Stop HCQ - Start SSZ goal 1g/day for now. Potential side effects were explained including rash, GI upset, bone marrow suppression, and liver toxicity requiring routine lab monitoring. - Check monitoring labs 3 weeks after starting. Notify of results via [facility] - Tylenol prn 2. Osteoporosis: In , had traumatic R ankle fracture after a fall at work. From -, on actonel. From January-May (with a break and resumption of medication in December), on fosamax. January DEXA with osteoporosis. January DEXA with osteopenia but decline in BMD in one area. In May, fosamax switched to prolia. In Apr, had a L humeral fracture so advised to start forteo. In January, started forteo, completed in February. February DEXA with decline. January DXA stable. DXA with improvement compared to , but done on different scanner than study. - Continue prolia, next due in Jul. No PA needed given medicare a/b - Continue calcium and vitamin D supplementation - Check DEXA due in February, ordered in Sep by Palma Lovett 3. PUD: With bleeding gastric ulcer per Jul EGD related to NSAID use - Avoid NSAIDs PO 4. Tobacco use: - Encouraged smoking cessation in the past 5. General health maintenance: - Completed the covid vaccination series in November, pfizer. - Advised to continue follow-up with PCP for routine health maintenance and malignancy screening 6 months w/Palma for prolia, 6 mon after with rheum RN for prolia, 6 mon after with me for prolia Magdalene Bradford MD documented in [facility] encounter[facility] Telephone encounter Note * Telephone Encounter - Cathy Maravilla LPN - 02/29/2024 3:25 PM EDT [facility] Miscellaneous Notes* Telephone Encounter - Cathy Maravilla LPN - 02/29/2024 3:25 PM EDT Faxed script to [facility]. * Telephone Encounter - Wily Abarca APRN.CNP - 02/29/2024 3:06 PM EDT In the outbox in our office. Wily Abarca APRN.CNP * Telephone Encounter - Colleen Cornelius MA - 02/29/2024 3:04 PM EDT Please reprint script. Unable to locate. Colleen Cornelius MA * Telephone Encounter - Melony Peraza RN - 02/28/2024 12:27 PM EDT Patient calling to request order for BP monitor kit be faxed to [facility]. Was sent to [facility] but they don't dispense these. Melony Peraza RN documented in this encounterSum[facility]07-12-2024 Telephone encounter Note * Telephone Encounter - Wily Abarca APRN.CNP - 02/29/2024 3:06 PM EDT In the outbox in our office. Wliy Abarca APRN.IRINEO [facility]07-12-[facility] Telephone encounter Note* Telephone Encounter - Colleen Cornelius MA - 02/29/2024 3:04 PM EDT Please reprint script. Unable to locate. Colleen Cornelius MA [facility]07-11-[facility] Telephone encounter Note* Telephone Encounter - Keely Rousseau RN - 02/28/2024 1:45 PM EDT Spoke with patient, agrees to appointment change. Scheduled accordingly. Keely Rousseau RN [facility]07-11-[facility] Miscellaneous Notes* Telephone Encounter - Keely Rousseau RN - 02/28/2024 1:45 PM EDT Spoke with patient, agrees to appointment change. Scheduled accordingly. Keely Rousseau RN * Telephone Encounter - Keely Rousseau RN - 02/28/2024 11:21 AM EDT Spoke with patient, states she took last 1/2 tablet of Plaquenil on Sunday02/25/2024 - dizziness, diarrhea, weakness subsided late Sunday evening( 02/26/2024) , she has felt fine since. Scheduled VV with provider for to discuss further options. Advised this message will be relayed to provider. Keely Rousseau RN * Telephone Encounter - Carmencita Whitten - 02/28/2024 11:11 AM EDT Patient calling with update of the PLAQUENIL and states symptoms were even worse this time weak dizzy and diarrhea and has stopped taking it she states please advise. documented in this encounterSum[facility]07-[facility]-2024 Telephone encounter Note * Telephone Encounter - Melony Peraza RN - 02/28/2024 12:27 PM EDT Patient calling to request order for BP monitor kit be [facility]ed to [facility]. Was sent to [facility] but they don't dispense these. Melony Peraza RN [facility]07-[facility] Telephone encounter Note* Telephone Encounter - Keely Rousseau RN - 02/28/2024 11:21 AM EDT Spoke with patient, states she took last 1/2 tablet of Plaquenil on Sunday02/25/2024 - dizziness, diarrhea, weakness subsided late Sunday evening( 02/26/2024) , she has felt fine since. Scheduled VV with provider for to discuss further options. Advised this message will be relayed to provider. Keely Rousseau RN [facility]07-11-[facility] Telephone encounter Note* Telephone Encounter - Carmencita Whitten - 02/28/2024 11:11 AM EDT Patient calling with update of the PLAQUENIL and states symptoms were even worse this time weak dizzy and diarrhea and has stopped taking it she states please advise. [facility]07-01-[facility] History of Present illness Narrative* RichieRonna APRN.SHINGLE INSPECTOR - 02/18/2024 11:00 AM EDT Chief Complaint Patient presents with: 3week f/up for b/p HPI Ceceliakalpana Quiroz is a 73 year old female who presents here today for Above Complaints. Cecelia is an established patient of Dr. Cottrell, DO and myself. Per last visit with me on 01/27: ASSESSMENT/PLAN: 1. Essential hypertension - ICD9: 401.9, ICD10: I10 (primary diagnosis) - Improving control, @ home BP readings are still very elevated. - Continue current medications - Start amlodipine 2.5 mg daily d/t home BP readings elevated and pt still symptomatic. - Recommend home blood pressure monitoring, to bring results and BP cuff to next visit to compare readings side by side. - Encouraged sodium restriction, DASH or Mediterranean diet - Recommend regular aerobic exercise - Follow up in 3-4 weeks for hypertension visit - AMLODIPINE 2.5 MG TABLET 2. Carotid atherosclerosis, bilateral - ICD9: 433.10, 433.30, ICD10: I65.23 See above. If BP improves and remains stable with headaches and fuzziness still persistent, we discussed vascular specialist consult as Dr. Cottrell recommended given the kanu appearance or fibromuscular dysplasia concern from recent US of carotids. Pt agreeable. RTO in 3-4 weeks to reassess In office today.. HTN -- She states compliant with current blood pressure medication(s): metoprolol 50 mg BID and amlodipine2.5 mg daily. She does check BP at home. Average home readings: vary frequently between 130-170/70-80s. Will normally retake BP 10 minutes later and will come down significantly. In office BP today: 124/62. BP with home cuff during visit today: 138/68 BP machine is about 4 years old. She denies chest pain, shortness of breath, palpitations, dizziness, leg edema, headaches, or vision changes. Last 14 Encounter BP Readings: Date: BP: 02/18/2024 124/62 02/07/2024 124/72 01/28/2024 142/80 01/28/2024 112/70 01/09/2024 142/82 12/17/2023 122/60 10/05/2023 161/75 07/23/2023 120/57 06/15/2023 120/60 05/07/2023 128/72 04/19/2023 129/76 04/16/2023 120/70 03/12/2023 110/76 01/19/2023 127/57 Past medical history, appointments, medications, allergies reviewed. Previous Medical History PAST MEDICAL HISTORY Diagnosis Date Actinic keratosis Autoimmune disease (HCC) Cancer (HCC) 1982 Uterine Cephalalgia Cholelithiasis Depression Diarrhea Disorder of bone and cartilage, unspecified Diverticulitis of colon (without mention of hemorrhage)(562.11) 2003 Dysphagia Essential hypertension 12/28/2021 GCA (giant cell arteritis) (HCC) bx negative GERD (gastroesophageal reflux disease) Glaucoma Hematuria 1999 had workup including cystoscopy, etc. - entire workup negative. No longer happening. IBS (irritable bowel syndrome) Iron deficiency anemia, unspecified ? related to UGI source from NSAID's Mixed hyperlipidemia Palpitations PMR (polymyalgia rheumatica) (HCC) Raynaud's disease /phenomenon Sciatica Steroid long-term use Thyroid nodule Tobacco use disorder Previous Surgical History PAST SURGICAL HISTORY Procedure Laterality Date ABDOMINAL SURGERY HX APPENDECTOMY 1982 incidental APPENDECTOMY HX BREAST SURGERY HX CATARACT EXTRACTION HX bilateral CHOLECYSTECTOMY Cholecystectomy COLONOSCOPY 2012 COLONOSCOPY FLX DX W/COLLJ SPEC WHEN PFRMD 05/09/2021 ESOPHAGOGASTRODUODENOSCOPY TRANSORAL DIAGNOSTIC 07/05/2015 EGD ESOPHAGOGASTRODUODENOSCOPY TRANSORAL DIAGNOSTIC 05/09/2021 EYE SURGERY HX FINE NEEDLE ASPIRATION 04/30/2023 Thyroid FNA FRACTURE SURGERY LEFT HEART CATH,PERCUTANEOUS 2011 Cardiac cath, L heart. Normal PAST SURGICAL HISTORY OF 1987 ulnar ner transferred PAST SURGICAL HISTORY OF 1990 bartholin cyst on vagina PAST SURGICAL HISTORY OF 2005 bone spur to left shoulder PAST SURGICAL HISTORY OF 2007 left knee -- torn meniscus ([place]) PAST SURGICAL HISTORY OF 2011 ORIF R ankle PAST SURGICAL HISTORY OF 2000 Bartholin cyst excised TOTAL ABDOMINAL HYSTERECT W/WO RMVL TUBE OVARY 1982 cervical cancer, still has ovaries VAGINAL HYSTERECTOMY Family History FAMILY HISTORY Problem Relation Age of Onset Diabetes Father late in life Coronary Artery Disease Father Hx of [place], age 71 Tremor Mother Hypertension Mother Cancer Brother Cancer Brother lymphoma - 55; h/o kidney transplant Cancer Brother Mestatic Aneurysm Sister brain Lung Cancer Sister dies at 52 Bipolar disorder Son Tremor Son Colon Cancer Niece Tremor Niece Hyperlipidemia No Family History Blood Clots No Family History Blood Disease No Family History Factor 5 Leiden No Family History DVT No Family History Stroke No Family History Schizophrenia No Family History Systemic Lupus Erythematosus No Family History Multiple Sclerosis No Family History Alzheimer's Disease No Family History Parkinson s Disease No Family History Patient Allergies ALLERGIES No Known Allergies Current Medications Current Outpatient Medications on File Prior to Visit Medication Sig nystatin-triamcinolone (MYCOLOG) ointment Apply to affected area two times a day. amLODIPine (NORVASC) 2.5 mg tablet Take 1 tablet by mouth once daily. hydrOXYchloroQUINE (PLAQUENIL) 200 mg tablet Take 200mg (1 tablet) once daily Mondays-Fridays and 200mg (1 tablet) twice daily on Saturdays and Sundays metoprolol succinate ER (TOPROL XL) 50 mg 24 hr tablet Take 1 tablet by mouth two times a day. predniSONE (DELTASONE) 10 mg tablet Take 1 tablet by mouth once daily. Take in the morning with food. primidone (MYSOLINE) 250 mg tablet Take 1 tablet by mouth daily at bedtime. travoprost (TRAVATAN Z) 0.004 % ophthalmic drops 1 Drop. loperamide (IMODIUM) 2 mg cap(s) Take 2 mg by mouth four times daily as needed. No current facility-administered medications on file prior to visit. Social History Social History Tobacco Use Smoking status: Every Day Packs/day: 1.00 Years: 35.00 Additional pack years: 0.00 Total pack years: 35.00 Types: Cigarettes Smokeless tobacco: Never Vaping Use Vaping Use: Never used Substance Use Topics Alcohol use: No Drug use: No REVIEW OF SYSTEMS: as above Reviewed relevant PMHx, PSHx, Social Hx, current medications and allergies. Review of Symptoms REVIEW OF SYSTEMS See HPI. EXAM: BP 124/62 (BP Site: Left Arm, BP Position: Sitting, BP Cuff Size: Regular Adult) Pulse 61 Resp 12 Wt 68.2 kg (150 lb 6.4 oz) SpO2 99% BMI 24.65 kg/m General Appearance: Well appearing, alert, in no acute distress, well-hydrated, well nourished.. Skin: Skin color, texture, turgor normal, no suspicious rashes or lesions. Head: Normocephalic, no masses, lesions, tenderness or abnormalities. Lungs: Lungs clear to auscultation. No wheezing, rhonchi, rales.. Heart: RRR without murmur, gallop, or rubs. No ectopy. Health Maintenance List Advance Directive Discussion Never done Behavioral Health Screening Never done Covid-19 Vaccine(2022- season) due on 06/15/2024 RSV Vaccine(1 - 1-dose 60+ series) due on 01/08/2025 Influenza Vaccine(1) due on 04/20/2024 Mammogram Screening due on 10/08/2024 Lung Cancer Screening due on 01/07/2025 Annual PCP Team Chronic Disease Visit due on 01/27/2025 BP Controlled (<130/80) due on 02/06/2025 Bone Density Screening due on 02/26/2025 Diabetes Screening due on 12/16/2026 Lipid Screening due on 12/16/2028 Colorectal Cancer Screening due on 05/09/2031 DTaP,Tdap,Td Vaccine(3 - Td or Tdap) due on 06/25/2032 Hepatitis C Screening Completed Shingrix Vaccine Completed Pneumococcal Vaccine: 65+ Completed ASSESSMENT/PLAN: 1. Essential hypertension - ICD9: 401.9, ICD10: I10 - Controlled Needs new at home cuff d/t inaccurate r/t manual readings in office. - Continue current medications - Recommend home blood pressure monitoring, to bring results to next visit - Encouraged sodium restriction, DASH or Mediterranean diet - Recommend regular aerobic exercise - Follow up in 3 months for hypertension visit - AMLODIPINE 2.5 MG TABLET - BLOOD PRESSURE TEST KIT-LARGE CUFF RTO in 3 months, sooner if needed. Prescription instructions reviewed with patient as applicable. Potential red flag symptoms discussed with the patient. Reviewed appropriate action plan to take if red flag symptoms occur. Patient agreeable to treatment plan. Ronna Walsh APRN.SHINGLE INSPECTOR [address] [place] [address] documented in this encounterSum[facility]-20-[facility] History of Present illness Narrative* Anca Rodriguez MD - 02/07/2024 1:02 PM EDT Dog Groomer offered: Patient declines. Cecelia Quiroz is a 73 year old female who presents for problem visit vaginal yeast infection for 6 days. HPI: Started have vulvar irritation on Sunday. Minimal discharge. Had some blood on wiping this am. OB History T0 L2 SAB0 IAB0 Ectopic0 Multiple0 Live Births0 [employer] History LMP: Hysterectomy Age at Menarche: Age at First : Age at Menopause: [employer] History Comments: Sexual Activity: Yes; Male Contraception: No contraception data on record PAST MEDICAL HISTORY Diagnosis Date Actinic keratosis Autoimmune disease (HCC) Cancer (HCC) 1982 Uterine Cephalalgia Cholelithiasis Depression Diarrhea Disorder of bone and cartilage, unspecified Diverticulitis of colon (without mention of hemorrhage)(562.11) 2003 Dysphagia Essential hypertension 12/28/2021 GCA (giant cell arteritis) (HCC) bx negative GERD (gastroesophageal reflux disease) Glaucoma Hematuria 1999 had workup including cystoscopy, etc. - entire workup negative. No longer happening. IBS (irritable bowel syndrome) Iron deficiency anemia, unspecified ? related to UGI source from NSAID's Mixed hyperlipidemia Palpitations PMR (polymyalgia rheumatica) (HCC) Raynaud's disease /phenomenon Sciatica Steroid long-term use Thyroid nodule Tobacco use disorder PAST SURGICAL HISTORY Procedure Laterality Date ABDOMINAL SURGERY HX APPENDECTOMY 1982 incidental APPENDECTOMY HX BREAST SURGERY HX CATARACT EXTRACTION HX bilateral CHOLECYSTECTOMY Cholecystectomy COLONOSCOPY 2012 COLONOSCOPY FLX DX W/COLLJ SPEC WHEN PFRMD 05/09/2021 ESOPHAGOGASTRODUODENOSCOPY TRANSORAL DIAGNOSTIC 07/05/2015 EGD ESOPHAGOGASTRODUODENOSCOPY TRANSORAL DIAGNOSTIC 05/09/2021 EYE SURGERY HX FINE NEEDLE ASPIRATION 04/30/2023 Thyroid FNA FRACTURE SURGERY LEFT HEART CATH,PERCUTANEOUS 2011 Cardiac cath, L heart. Normal PAST SURGICAL HISTORY OF 1987 ulnar ner transferred PAST SURGICAL HISTORY OF 1990 bartholin cyst on vagina PAST SURGICAL HISTORY OF 2005 bone spur to left shoulder PAST SURGICAL HISTORY OF 2007 left knee -- torn meniscus ([place]) PAST SURGICAL HISTORY OF 2011 ORIF R ankle PAST SURGICAL HISTORY OF 2000 Bartholin cyst excised TOTAL ABDOMINAL HYSTERECT W/WO RMVL TUBE OVARY 1982 cervical cancer, still has ovaries VAGINAL HYSTERECTOMY FAMILY HISTORY Problem Relation Age of Onset Diabetes Father late in life Coronary Artery Disease Father Hx of [place], age 71 Tremor Mother Hypertension Mother Cancer Brother Cancer Brother lymphoma - 55; h/o kidney transplant Cancer Brother Mestatic Aneurysm Sister brain Lung Cancer Sister dies at 52 Bipolar disorder Son Tremor Son Colon Cancer Niece Tremor Niece Hyperlipidemia No Family History Blood Clots No Family History Blood Disease No Family History Factor 5 Leiden No Family History DVT No Family History Stroke No Family History Schizophrenia No Family History Systemic Lupus Erythematosus No Family History Multiple Sclerosis No Family History Alzheimer's Disease No Family History Parkinson s Disease No Family History Social History Tobacco Use Smoking status: Every Day Packs/day: 1.00 Years: 35.00 Additional pack years: 0.00 Total pack years: 35.00 Types: Cigarettes Smokeless tobacco: Never Vaping Use Vaping Use: Never used Substance Use Topics Alcohol use: No Drug use: No Current Outpatient Medications Medication Sig amLODIPine (NORVASC) 2.5 mg tablet Take 1 tablet by mouth once daily. hydrOXYchloroQUINE (PLAQUENIL) 200 mg tablet Take 200mg (1 tablet) once daily Mondays-Fridays and 200mg (1 tablet) twice daily on Saturdays and Sundays metoprolol succinate ER (TOPROL XL) 50 mg 24 hr tablet Take 1 tablet by mouth two times a day. predniSONE (DELTASONE) 10 mg tablet Take 1 tablet by mouth once daily. Take in the morning with food. primidone (MYSOLINE) 250 mg tablet Take 1 tablet by mouth daily at bedtime. travoprost (TRAVATAN Z) 0.004 % ophthalmic drops 1 Drop. loperamide (IMODIUM) 2 mg cap(s) Take 2 mg by mouth four times daily as needed. nystatin-triamcinolone (MYCOLOG) ointment Apply to affected area two times a day. No current facility-administered medications for this visit. Allergies As of Date: 02/07/2024 (No Known Allergies) Fully Assessed 02/07/2024 REVIEW OF SYSTEMS Abdomen: No bloating, early satiety, indigestion, or increased flatulence. No abdominal pain, nausea, vomiting, diarrhea, or constipation. Bladder: No dysuria, gross hematuria, urinary frequency, urinary urgency, or incontinence. Breast: No breast lumps, nipple d/c, overlying skin changes, redness or skin retraction. Expanded ROS: N/A Allergies and current medication updated:Yes EXAM: BP 124/72 Wt 151 lb (68.5kg) GENERAL: pleasant, female in no apparent distress HEENT: Normocephalic, atraumatic, mucus membranes moist, and no lesions NECK: full range of motion DERMATOLOGY: Normal, without lesions, non-icteric, and non-hirsute BREAST: deferred CHEST: Normal inspiratory effort ABDOMEN: Deferred PELVIC: external genitalia normal, normal Bartholin's glands, urethra, Concordia's glands, no vulvar lesions, good vaginal support, physiologic discharge present, normal appearing perineal body and perianal region, vulvar irritation along outer labia bilateral. No lesions. BIMANUAL: deferred NEURO: alert and oriented x3,exam grossly non-focal EXTREMITIES: normal ASSESSMENT AND PLAN: Encounter Diagnosis ICD-10-CM 1. Yeast dermatitis B37.2 nystatin-triamcinolone (MYCOLOG) ointment Mycolog cream to labia. No vaginal involvement Anca Rodriguez MD documented in this encounterSum[facility]06-18-2024 Telephone encounter Note * Telephone Encounter - Keely Rousseau RN - 02/05/2024 1:45 PM EDT Spoke with patient, relayed message below. Verbalizes understanding, agrees with plan. Will notify office if symptoms continue/worsen. Keely Rousseau RN [facility]06-18-[facility]24 Miscellaneous Notes* Telephone Encounter - Keely Rousseau RN - 02/05/2024 1:45 PM EDT Spoke with patient, relayed message below. Verbalizes understanding, agrees with plan. Will notify office if symptoms continue/worsen. Keely Rousseau RN * Telephone Encounter - Magdalene Bradford MD - 02/05/2024 1:40 PM EDT Sounds like she's having side effects from HCQ. She should hold the HCQ completely for now. Once the symptoms subside, she could resume at a very low dose of 1/2 tablet every other day if she wanted to see if that would be better tolerated. Thanks. * Telephone Encounter - Keely Rousseau RN - 02/05/2024 12:51 PM EDT Spoke with patient. Started Plaquenil January 28, 2024. 5 days later she began having headache, frequent liquid stools began last night-reports going every hour . Denies taking anything for headache, she took imodium - has on hand for previous gall bladder removal. Advised she could try Tylenol for headache and to avoid NSAIDs. Keely Rousseau RN * Telephone Encounter - Yenny Mandel - 02/05/2024 12:45 PM EDT The first few days the patient took hydroxychloroquine 200 mg she was fine. Last weekend she started to experience headaches and diarrhea, and the headaches are getting worse. She can be reached at [phone]. documented in this encounterSum[facility]06-18-2024 Telephone encounter Note * Telephone Encounter - Magdalene Bradford MD - 02/05/2024 1:40 PM EDT Sounds like she's having side effects from HCQ. She should hold the HCQ completely for now. Once the symptoms subside, she could resume at a very low dose of 1/2 tablet every other day if she wanted to see if that would be better tolerated. Thanks. [facility]06-18-[facility] Telephone encounter Note* Telephone Encounter - Keely Rousseau RN - 02/05/2024 12:51 PM EDT Spoke with patient. Started Plaquenil January 28, 2024. 5 days later she began having headache, frequent liquid stools began last night-reports going every hour . Denies taking anything for headache, she took imodium - has on hand for previous gall bladder removal. Advised she could try Tylenol for headache and to avoid NSAIDs. Keely Rousseau RN [facility]06-18-[facility] Telephone encounter Note* Telephone Encounter - Yenny Mandel - 02/05/2024 12:45 PM EDT The first few days the patient took hydroxychloroquine 200 mg she was fine. Last weekend she started to experience headaches and diarrhea, and the headaches are getting worse. She can be reached at [phone]. [facility]06-10-[facility] Instructions* Patient Instructions* Magdalene Bradford MD - 01/28/2024 12:59 PM EDT Your next set of labs are due in June 2024 in preparation for the July 2024 prolia injection. Lab orders are in the system so please have the blood draw done then. If we don't have the lab results of the blood draw in time, this may affect your ability to receive the prolia injection at thenext appointment. You do not need to be fasting for the blood draw. documented in this encounterSumma [facility]06-10-2024 History of Present illness Narrative* Magdalene Bradford MD - 01/28/2024 12:47 PM EDT On 01/28/2024, I had the pleasure of evaluating Cecelia Quiroz in a follow[facility]up [facility] for GCA, PMR and osteoporosis. 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 With negative TA biopsies x2 - From Jun-Sep, on MTX which was stopped due to inefficacy - In October, started on acemtra which was stopped after 3 infusions - In Apr, fell off a trailer and broke L humerus - In Jul, seen by Dr. Gonzalez. On baseline prednisone 10mg/day. Given medrol dose pack for flarewith plans to return to prednisone 10mg/day thereafter. She was hesitant to reduce baseline pred 10mg/day further given previous attempts to taper led to flares of pain and headache - On 07/28/19, received prolia - In October, reported baseline pain in the R>L shoulders/arms. Not flaring. On pred 10mg/day - In January and Apr, reported stable PMR on pred 10mg/day - In Aug, reported taking pred 10mg/day. Taking forteo. No interim fracture. - In February, started on HCQ given active pain. pred 10mg/day continued - On 05/16/21, reported no improvement in L shoulder, neck and base of skull pain w/pred 20mg/day. Referred to spine and PT - In May reported taking pred 10mg/day. Continued to have significant pain awakening her at night, located in L side of the neck/base of skull. Prescribed a pred 40mg taper - In Aug, reported no change with increased pred dose. On pred 10mg/day at the time of the visit. Was off HCQ so advised to resume - In November, reported no change on HCQ. Remained on pred 10mg/day. Resumed forteo 3 months prior(was off x2 months prior to that as she had run out) - In February, reported feeling the same. On pred 10mg/day. Was to have stopped forteo in last but was still taking it. Forteo stopped, last dose in February. Was advised to resume prolia but was waiting for surgery clearance given ankle surgery. Off HCQ. - In Mar s/p R ankle surgery (hardware removal) - In Apr, prednisone course helped a lot. Started MTX SC - In Jul, reported MTX didn't help. Hurt worse and felt nausea/fatigue with it. On pred 10mg/day - In Jan, reported flares on lower than pred 10mg/day so 10mg/day continued. Had to temporarilyincrease to 40mg for a flare which helped, then back to 10mg/day - In Jan and Jul (07/23/23), given prolia - Today, reports no interim fracture, infection, jaw pain or recent/plans for any invasive dental procedures. - Remains on pred 10mg/day for the PMR. Took one dose of 20mg a couple of days ago for increased upper back and R>L proximal arm pain, which helped. Back on 10mg/day. - Takes calcium/vit D - Hx of PUD - Last plaquenil eye exam normal in Sep (had been off HCQ-resuming today) PAST MEDICAL HISTORY Diagnosis Date Actinic keratosis Autoimmune disease (HCC) Cancer (HCC) 1982 Uterine Cephalalgia Cholelithiasis Depression Diarrhea Disorder of bone and cartilage, unspecified Diverticulitis of colon (without mention of hemorrhage)(562.11) 2003 Dysphagia Essential hypertension 12/28/2021 GCA (giant cell arteritis) (HCC) bx negative GERD (gastroesophageal reflux disease) Glaucoma Hematuria 1999 had workup including cystoscopy, etc. - entire workup negative. No longer happening. IBS (irritable bowel syndrome) Iron deficiency anemia, unspecified ? related to UGI source from NSAID's Mixed hyperlipidemia Palpitations PMR (polymyalgia rheumatica) (HCC) Raynaud's disease /phenomenon Sciatica Steroid long-term use Thyroid nodule Tobacco use disorder PAST SURGICAL HISTORY Procedure Laterality Date ABDOMINAL SURGERY HX APPENDECTOMY 1982 incidental APPENDECTOMY HX BREAST SURGERY HX CATARACT EXTRACTION HX bilateral CHOLECYSTECTOMY Cholecystectomy COLONOSCOPY 2012 COLONOSCOPY FLX DX W/COLLJ SPEC WHEN PFRMD 05/09/2021 ESOPHAGOGASTRODUODENOSCOPY TRANSORAL DIAGNOSTIC 07/05/2015 EGD ESOPHAGOGASTRODUODENOSCOPY TRANSORAL DIAGNOSTIC 05/09/2021 EYE SURGERY HX FINE NEEDLE ASPIRATION 04/30/2023 Thyroid FNA FRACTURE SURGERY LEFT HEART CATH,PERCUTANEOUS 2011 Cardiac cath, L heart. Normal PAST SURGICAL HISTORY OF 1987 ulnar ner transferred PAST SURGICAL HISTORY OF 1990 bartholin cyst on vagina PAST SURGICAL HISTORY OF 2005 bone spur to left shoulder PAST SURGICAL HISTORY OF 2007 left knee -- torn meniscus ([place]) PAST SURGICAL HISTORY OF 2011 ORIF R ankle PAST SURGICAL HISTORY OF 2000 Bartholin cyst excised TOTAL ABDOMINAL HYSTERECT W/WO RMVL TUBE OVARY 1982 cervical cancer, still has ovaries VAGINAL HYSTERECTOMY ALLERGIES No Known Allergies MEDICATIONS: Current Outpatient Medications Medication Sig amLODIPine (NORVASC) 2.5 mg tablet Take 1 tablet by mouth once daily. metoprolol succinate ER (TOPROL XL) 50 mg 24 hr tablet Take 1 tablet by mouth two times a day. predniSONE (DELTASONE) 10 mg tablet Take 1 tablet by mouth once daily. Take in the morning with food. primidone (MYSOLINE) 250 mg tablet Take 1 tablet by mouth daily at bedtime. travoprost (TRAVATAN Z) 0.004 % ophthalmic drops 1 Drop. loperamide (IMODIUM) 2 mg cap(s) Take 2 mg by mouth four times daily as needed. No current facility-administered medications for this visit. FAMILY HISTORY Problem Relation Age of Onset Diabetes Father late in life Coronary Artery Disease Father Hx of [place], age 71 Tremor Mother Hypertension Mother Cancer Brother Cancer Brother lymphoma - 55; h/o kidney transplant Cancer Brother Mestatic Aneurysm Sister brain Lung Cancer Sister dies at 52 Bipolar disorder Son Tremor Son Colon Cancer Niece Tremor Niece Hyperlipidemia No Family History Blood Clots No Family History Blood Disease No Family History Factor 5 Leiden No Family History DVT No Family History Stroke No Family History Schizophrenia No Family History Systemic Lupus Erythematosus No Family History Multiple Sclerosis No Family History Alzheimer's Disease No Family History Parkinson s Disease No Family History SOCIAL HISTORY: Lives in [place]. Works. Family lives in [place] Tobacco use: 1 ppd Alcohol use: None REVIEW OF SYSTEMS: reviewed 06/02 systems, as above PHYSICAL EXAM: VITALS: Blood pressure 112/70, pulse 80, temperature 36.6 C (97.9 F), temperature source Temporal, height 166.4 cm (5' 5.5), weight 68 kg (149 lb 14.6 oz). CONSTITUTIONAL: Well-appearing, in NAD. SKIN: No rash. No sclerodactyly, calcinosis, telangiectasias, digital ulcers, or skin thickening. EYES: No scleral icterus or conjunctivitis. HENT and Mouth: External ears normal. Nares normal. No tenderness to palpation of the temples bilaterally. RESPIRATORY: Normal breath sounds, clear to auscultation. CARDIOVASCULAR: Regular rate and rhythm, no murmurs or rubs EXTREMITIES/LYMPH: No edema bilaterally NEURO: Awake, alert and oriented, antalgic gait MUSCULOSKELETAL: JOINT APPEARANCE: No erythema or warmth of any upper or lower extremity joint. RANGE OF MOTION: Able to fully close fists and curl fingers bilaterally. SWOLLEN JOINTS/SYNOVITIS: No synovitis of any joint. TENDER JOINTS: None *October Widespread Pain Index: 12 (0-19) Symptoms Severity Scale: 4 (0-12) WPI>7 and SS Scale>5 OR WPI 3-6 and SS Scale >9 consistent with fibromyalgia LABORATORY: Latest Ref [facility] 10/22/2023 12/17/2023 Protein, Total 6.3 - 8.0 g/dL 7.4 Albumin 3.9 - 4.9 g/dL 4.0 Calcium 8.5 - 10.2 mg/dL 9.2 Bilirubin, Total 0.2 - 1.3 mg/dL 0.2 Alkaline Phosphatase 34 - 123 U/L 89 AST 13 - 35 U/L 18 ALT 7 - 38 U/L 8 Glucose 74 - 99 mg/dL 87 BUN 7 - 21 mg/dL 12 Creatinine 0.58 - 0.96 mg/dL 0.72 Sodium 136 - 144 mmol/L 136 Potassium 3.7 - 5.1 mmol/L 4.2 Chloride 97 - 105 mmol/L 100 CO2 22 - 30 mmol/L 25 Anion Gap 9 - 18 mmol/L 11 eGFR >=60 mL/min/1.73m 88 Vitamin D 25 Hydroxy 31.0 - 80.0 ng/mL 47.6 Latest Ref Rng 10/22/2023 WSR 0 - 20 mm/hr 54 (H) CRP <0.9 mg/dL 1.3 (H) *Apr neg quant gold, hep b/c Component Latest Ref Rng & Units 11/21/2019 01/30/2020 04/30/2020 Creatinine 0.58 - 0.96 mg/dL 0.90 eGFR- >60 eGFR-All Other Races . >60 Calcium 8.5 - 10.2 mg/dL 9.4 PTH, Intact 15 - 65 pg/mL 36 Vitamin D 25 Hydroxy 31.0 - 80.0 ng/mL 36.6 WSR 0 - 20 mm/hr 54 (H) CRP <0.9 mg/dL 0.5 STUDIES: *February DXA- IMPRESSION: THE LOWEST T-SCORE IS -2.2 IN THE LEFT HIP Lumbar spine (L1-L4): 1.005 g/cm2 , T-score -0.4 , Z-score 1.9 . 0.120 g/sq cm improved Left Femoral Neck: 0.603 g/cm2 , T-score-2.2 , Z-score-0.3 . Not significantly changed Left Total Hip: 0.789 g/cm2 , T-score-1.3 , Z-score 0.4 . Right Femoral Neck: 0.660 g/cm2 , T-score -1.7 , Z-score0.3 . 0.072 g/sq cm improved Right Total Hip: 0.769 g/cm2 , T-score-1.4 , Z-score 0.2 *May CXR- no acute changes *January DXA- IMPRESSION: THE LOWEST T-SCORE IS -2.1 IN THE RIGHT HIP 1) DIAGNOSIS (based on BMD alone): OSTEOPENIA . There has been no significant interval change Lumbar spine (L1-L4): 1.132 g/cm2 , T-score -0.4, Z-score 1.5 . Left Femoral Neck: 0.776 g/cm2 , T-score-1.9, Z-score0. . This is not significantly changed Left Total Hip: 0.787 g/cm2 , T-score-1.7, Z-score 0. . This is not significantly changed Right Femoral Neck: 0.781 g/cm2 , T-score -1.8, Z-score0.1 . This is not significantly changed Right Total Hip: 0.742 g/cm2 , T-score-2.1, Z-score -0.4 . This is not significantly changed *February DEXA- THE LOWEST T-SCORE IS -2.1 IN THE LEFT femoral neck. This has been a statistically significant decrease in the bone density since the previous study. Lumbar spine (L1-L4): 1.107 g/cm2, T-score -0.6, Z-score 1.3 . Left Femoral Neck: 0.740 g/cm2 , T-score-2.1, Z-score-0.3 . Previous BMD(g/cm2 ) 0.784 . The change is statistically significant. Left Total Hip: 0.756 g/cm2 , T-score-2., Z-score -0.4 . Right Femoral Neck: 0.773 g/cm2 , T-score -1.9, Z-score-0.1 . Right Total Hip: 0.75 g/cm2 , T-score-2., Z-score -0.4 1) DIAGNOSIS (based on BMD alone): OSTEOPENIA *January DEXA- Osteopenia of the bilateral hips LUMBAR SPINE: The bone mineral density from L1 through L4 is 1.129 grams per square centimeter which yields a T-score of -0.4. . LEFT HIP: The bone mineral density of the total region of the hip is 0.804 grams per square centimeter which yields a T-score of -1.6. . LEFT FEMORAL NECK: The bone mineral density of the femoral neck is 0.784 grams per square centimeter which yields a T-score of -1.8. . RIGHT HIP: The bone mineral density of the total region of the hip is 0.768 grams per square centimeter which yields a T-score of -1.9. . RIGHT FEMORAL NECK: The bone mineral density of the femoral neck is 0.777 grams per square centimeter which yields a T-score of -1.9. *January DEXA- IMPRESSION: Severe osteopenia in both femoral necks, significant decline in R femoral neck. LUMBAR SPINE: The bone mineral density from L1 through L4 is 0.885 grams per square centimeter which yields a T-score of -1.5. This is 3.9% mproved. LEFT HIP: The bone mineral density of [...] T-score of -2.4. This is 3.9% worse. IMPRESSION and PLAN: 1. PMR/GCA: Steroid-responsive shoulder/hip pain and CT neck with findings suspicious for vasculitis with negative TA biopsies x2. Has tried: HCQ, MTX PO/SC and actemra without improvement-MTX SC with nausea too. Remains on pred 10mg/day - Continue prednisone 10mg/day (flares on doses <9mg/day) - Resume HCQ 200mg/day -, 200mg bid Sa/Urena. Last normal Sep (but then off HCQ). Advised to getanother eye exam especially if we're going to continue it. Advised about potential for retinal toxicity. Advised that hopefully we'll be able to more successfully taper prednisone in the future with HCQ on board. - Tylenol prn 2. Osteoporosis: In , had traumatic R ankle fracture after a fall at work. From -, on actonel. From January-May (with a break and resumption of medication in December), on fosamax. January DEXA with osteoporosis. January DEXA with osteopenia but decline in BMD in one area. In May, fosamax switched to prolia. In Apr, had a L humeral fracture so advised to start forteo. In January, started forteo, completed in February. February DEXA with decline. January DXA stable. DXA with improvement compared to , but done on different scanner than study. - Continue prolia, given by me in the office today. Lot [id number]/exp [id number]. No PA needed given medicare a/b - Check labs in June in preparation for the Jul prolia dose. Notify of results via Rezdy. Verbal and written reminders provided. - Continue calcium and vitamin D supplementation - Check DEXA due in February, ordered in Sep by Palma Lovett 3. PUD: With bleeding gastric ulcer per Jul EGD related to NSAID use - Avoid NSAIDs PO 4. Tobacco use: - Encouraged smoking cessation in the past 5. DDD: - Tylenol prn, avoid NSAIDs PO 6. General health maintenance: - Completed the covid vaccination series in November, [employer]. - Advised to continue follow-up with PCP for routine health maintenance and malignancy screening 6 months w/Palma for prolia, 6 mon after with rheum RN for prolia, 6 mon after with me for prolia Magdalene Bradford MD documented in this encounterSum[facility]06-10-[facility]24 History of Present illness Narrative* Richie CARMINA Friend.SHINGLE INSPECTOR - 01/28/2024 10:27 AM EDT Chief Complaint Patient presents with: b/p check: Pt brought home blood pressure with her, does not think b/p meds helping head feels funny. HPI Cecelia Quiroz is a 73 year old female who presents here today for Above Complaints. Cecelia is an established patient of Dr. Simba DO and myself. Was seen in office on 01/09/24 d/t elevated BP and associated headaches, per visit: ASSESSMENT/PLAN: 1. Essential hypertension - ICD9: 401.9, ICD10: I10 - Worsening control - Continue current medications - Increase metoprolol succinate to BID dosing. - Recommend home blood pressure monitoring, to bring results to next visit - Encouraged sodium restriction, DASH or Mediterranean diet - Recommend regular aerobic exercise - Follow up in 4 weeks for hypertension visit - METOPROLOL SUCCINATE ER 50 MG TABLET,EXTENDED RELEASE 24 HR RTO in 4 weeks, sooner if needed. In office today... HTN -- She states compliant with current blood pressure medication(s): metoprolol 50 mg BID. She does check BP at home. Average home readings: 155-175/80-95. Feels increase in BP medication did not help. Readings stayed about the same and fuzziness in head remains. Takes others BP with same cuff and readings are normal. BP cuff is an arm cuff. She denies chest pain, shortness of breath, palpitations, dizziness, leg edema, or vision changes. Last 14 Encounter BP Readings: Date: BP: 01/28/2024 142/80 01/09/2024 142/82 12/17/2023 122/60 10/05/2023 161/75 07/23/2023 120/57 06/15/2023 120/60 05/07/2023 128/72 04/19/2023 129/76 04/16/2023 120/70 03/12/2023 110/76 01/19/2023 127/57 07/31/2022 115/57 07/24/2022 125/68 07/07/2022 116/64 Pt is also asking about results of US carotid arteries that shows: Compared to prior study of 04/05/2023, No significant change. RIGHT SIDE Incidentally detected thyroid nodule measuring 1.04 cm in maximum diameter; dedicated thyroid ultrasound is recommended. Common carotid artery: Plaque visualized without evidence of hemodynamically significant stenosis. Internal carotid artery: Turbulent flow and elevated velocities at mid or distal vessel are evidence of fibromuscular dysplasia. Mild plaque at origin. Vertebral artery: Patent and antegrade flow noted. LEFT SIDE Incidentally detected thyroid nodule measuring 1.90 cm in maximum diameter; dedicated thyroid ultrasound is recommended. Internal carotid artery: Turbulent flow and elevated velocities at mid or distal vessel are evidence of fibromuscular dysplasia. Mild plaque at origin. Vertebral artery: Patent and antegrade flow noted. Dr. Cottrell instructed: Please let her know that this is a string of kanu appearance to the carotid arteries, this is a potentially genetic condition. We can send her to a vascular specialist for further testing if she is having a lot of LH/dizziness. 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 Past medical history, appointments, medications, allergies reviewed. Previous Medical History PAST MEDICAL HISTORY Diagnosis Date Actinic keratosis Autoimmune disease (HCC) Cancer (HCC) 1982 Uterine Cephalalgia Cholelithiasis Depression Diarrhea Disorder of bone and cartilage, unspecified Diverticulitis of colon (without mention of hemorrhage)(562.11) 2003 Dysphagia Essential hypertension 12/28/2021 GCA (giant cell arteritis) (HCC) bx negative GERD (gastroesophageal reflux disease) Glaucoma Hematuria 1999 had workup including cystoscopy, etc. - entire workup negative. No longer happening. IBS (irritable bowel syndrome) Iron deficiency anemia, unspecified ? related to UGI source from NSAID's Mixed hyperlipidemia Palpitations PMR (polymyalgia rheumatica) (HCC) Raynaud's disease /phenomenon Sciatica Steroid long-term use Thyroid nodule Tobacco use disorder Previous Surgical History PAST SURGICAL HISTORY Procedure Laterality Date ABDOMINAL SURGERY HX APPENDECTOMY 1982 incidental APPENDECTOMY HX BREAST SURGERY HX CATARACT EXTRACTION HX bilateral CHOLECYSTECTOMY Cholecystectomy COLONOSCOPY 2012 COLONOSCOPY FLX DX W/COLLJ SPEC WHEN PFRMD 05/09/2021 ESOPHAGOGASTRODUODENOSCOPY TRANSORAL DIAGNOSTIC 07/05/2015 EGD ESOPHAGOGASTRODUODENOSCOPY TRANSORAL DIAGNOSTIC 05/09/2021 EYE SURGERY HX FINE NEEDLE ASPIRATION 04/30/2023 Thyroid FNA FRACTURE SURGERY LEFT HEART CATH,PERCUTANEOUS 2011 Cardiac cath, L heart. Normal PAST SURGICAL HISTORY OF 1987 ulnar ner transferred PAST SURGICAL HISTORY OF 1990 bartholin cyst on vagina PAST SURGICAL HISTORY OF 2005 bone spur to left shoulder PAST SURGICAL HISTORY OF 2007 left knee -- torn meniscus ([place]) PAST SURGICAL HISTORY OF 2011 ORIF R ankle PAST SURGICAL HISTORY OF 2000 Bartholin cyst excised TOTAL ABDOMINAL HYSTERECT W/WO RMVL TUBE OVARY 1982 cervical cancer, still has ovaries VAGINAL HYSTERECTOMY Family History FAMILY HISTORY Problem Relation Age of Onset Diabetes Father late in life Coronary Artery Disease Father Hx of [place], age 71 Tremor Mother Hypertension Mother Cancer Brother Cancer Brother lymphoma - 55; h/o kidney transplant Cancer Brother Mestatic Aneurysm Sister brain Lung Cancer Sister dies at 52 Bipolar disorder Son Tremor Son Colon Cancer Niece Tremor Niece Hyperlipidemia No Family History Blood Clots No Family History Blood Disease No Family History Factor 5 Leiden No Family History DVT No Family History Stroke No Family History Schizophrenia No Family History Systemic Lupus Erythematosus No Family History Multiple Sclerosis No Family History Alzheimer's Disease No Family History Parkinson s Disease No Family History Patient Allergies ALLERGIES No Known Allergies Current Medications Current Outpatient Medications on File Prior to Visit Medication Sig metoprolol succinate ER (TOPROL XL) 50 mg 24 hr tablet Take 1 tablet by mouth two times a day. predniSONE (DELTASONE) 10 mg tablet Take 1 tablet by mouth once daily. Take in the morning with food. primidone (MYSOLINE) 250 mg tablet Take 1 tablet by mouth daily at bedtime. travoprost (TRAVATAN Z) 0.004 % ophthalmic drops 1 Drop. loperamide (IMODIUM) 2 mg cap(s) Take 2 mg by mouth four times daily as needed. No current facility-administered medications on file prior to visit. Social History Social History Tobacco Use Smoking status: Every Day Packs/day: 1.00 Years: 35.00 Additional pack years: 0.00 Total pack years: 35.00 Types: Cigarettes Smokeless tobacco: Never Vaping Use Vaping Use: Never used Substance Use Topics Alcohol use: No Drug use: No REVIEW OF SYSTEMS: as above Reviewed relevant PMHx, PSHx, Social Hx, current medications and allergies. Review of Symptoms REVIEW OF SYSTEMS See HPI. EXAM: BP 122/62 (BP Site: Left Arm, BP Position: Sitting, BP Cuff Size: Large Adult) Pulse 68 Resp 16 Wt 68.8 kg (151 lb 9.6 oz) BMI 24.84 kg/m General Appearance: Well appearing, alert, in no acute distress, well-hydrated, well nourished.. Skin: Skin color, texture, turgor normal, no suspicious rashes or lesions. Head: Normocephalic, no masses, lesions, tenderness or abnormalities. Lungs: Lungs clear to auscultation. No wheezing, rhonchi, rales.. Heart: RRR without murmur, gallop, or rubs. No ectopy. Health Maintenance List BP Controlled (<130/80) Never done Advance Directive Discussion Never done Behavioral Health Screening Never done Covid-19 Vaccine( season) due on 06/15/2024 RSV Vaccine(1 - 1-dose 60+ series) due on 01/08/2025 Mammogram Screening due on 10/08/2024 Lung Cancer Screening due on 01/07/2025 Annual PCP Team Chronic Disease Visit due on 01/08/2025 Bone Density Screening due on 02/26/2025 Diabetes Screening due on 12/16/2026 Lipid Screening due on 12/16/2028 Colorectal Cancer Screening due on 05/09/2031 DTaP,Tdap,Td Vaccine(3 - Td or Tdap) due on 06/25/2032 Influenza Vaccine Completed Hepatitis C Screening Completed Shingrix Vaccine Completed Pneumococcal Vaccine: 65+ Completed ASSESSMENT/PLAN: 1. Essential hypertension - ICD9: 401.9, ICD10: I10 (primary diagnosis) - Improving control, @ home BP readings are still very elevated. - Continue current medications - Start amlodipine 2.5 mg daily d/t home BP readings elevated and pt still symptomatic. - Recommend home blood pressure monitoring, to bring results and BP cuff to next visit to compare readings side by side. - Encouraged sodium restriction, DASH or Mediterranean diet - Recommend regular aerobic exercise - Follow up in 3-4 weeks for hypertension visit - AMLODIPINE 2.5 MG TABLET 2. Carotid atherosclerosis, bilateral - ICD9: 433.10, 433.30, ICD10: I65.23 See above. If BP improves and remains stable with headaches and fuzziness still persistent, we discussed vascular specialist consult as Dr. Cottrell recommended given the kanu appearance or fibromuscular dysplasia concern from recent US of carotids. Pt agreeable. RTO in 3-4 weeks to reassess Prescription instructions reviewed with patient as applicable. Potential red flag symptoms discussed with the patient. Reviewed appropriate action plan to take if red flag symptoms occur. Patient agreeable to treatment plan. Ronna Walsh APRN.SHINGLE INSPECTOR [address] [place] [address] documented in this encounterSumma [facility]05-24-2024 Telephone encounter Note * Telephone Encounter - Eliana Germain LPN - 01/11/2024 11:02 AM EDT Phoned patient went over result, notes from Dr Cottrell with understanding. [facility]05-24-[facility] Miscellaneous Notes* Telephone Encounter - Eliana Germain LPN - 01/11/2024 11:02 AM EDT Phoned patient went over result, notes from Dr Cottrell with understanding. * Telephone Encounter - Miah Cottrell DO - 01/11/2024 9:50 AM EDT Please inform patient that overall her CT chest is stable No new changes See below IMPRESSION: Stable left lung nodule. No new or enlarging nodules identified. Mild emphysema. Remote granulomatous disease. Miah Cottrell DO documented in this encounterSumma [facility]05-24-2024 Telephone encounter Note * Telephone Encounter - Miah Cottrell DO - 01/11/2024 9:50 AM EDT Please inform patient that overall her CT chest is stable No new changes See below IMPRESSION: Stable left lung nodule. No new or enlarging nodules identified. Mild emphysema. Remote granulomatous disease. Miah Cottrell DO [facility]05-22-[facility]24 Telephone encounter Note* Telephone Encounter - Eliana Germain LPN - 01/09/2024 10:53 AM EDT Patient returned call and went over notes below from Dr Cottrell with understanding. Patient said she had appt with CONTACT CENTER ASSISTANT this morning and going to try the blood pressure medication she added today since she was having headaches. [facility]05-22-[facility]24 Miscellaneous Notes* Telephone Encounter - Eliana Gemrain LPN - 01/09/2024 10:53 AM EDT Patient returned call and went over notes below from Dr Cottrell with understanding. Patient said she had appt with CONTACT CENTER ASSISTANT this morning and going to try the blood pressure medication she added today since she was having headaches. * Telephone Encounter - Cathy Maravilla LPN - 01/09/2024 8:31 AM EDT ;Left message to return call. * Telephone Encounter - Miah Cottrell DO - 01/08/2024 4:58 PM EDT Please let her know that this is a string of kanu appearance to the carotid arteries, this is a potentially genetic condition. We can send her to a vascular specialist for further testing if she is having a lot of LH/dizziness. Miah Cottrell DO * Telephone Encounter - Patricia Madsen RN - 01/08/2024 4:54 PM EDT Pt called and is notified of providers results. Pt asking what the fibromuscular dysplasia means. Patricia Madsen RN * Telephone Encounter - Miah Cottrell DO - 01/08/2024 4:39 PM EDT Please inform patient that her carotid artery US is overall stable, mild plaque and signs of fibromuscular dysplasia Miah Cottrell DO documented in this encounterSumma [facility]05-22-2024 History of Present illness Narrative* Ronna Quiroz APRN.SHINGLE INSPECTOR - 01/09/2024 8:55 AM EDT Chief Complaint Patient presents with: /p up for passed couple months of and on: B/p up fo passed couple months, getting headaches HPI Cecelia Quiroz is a 73 year old female who presents here today for Above Complaints. Cecelia is an established patient of Dr. Simba DO. She is a new patient to me today. Concerns today.. HTN -- She states compliant with current blood pressure medication(s): metoprolol 50 mg daily. She does check BP at home when not feeling well. Reports recent headaches which has made her check BP more often. Average home readings: 144-160/60-70. Current headache right now. Pt reports BP normally around 110-120/70 which is when she will not have headache and feel good. She denies chest pain, shortness of breath, palpitations, dizziness, leg edema, or vision changes. Last 14 Encounter BP Readings: Date: BP: 01/09/2024 142/82 12/17/2023 122/60 10/05/2023 161/75 07/23/2023 120/57 06/15/2023 120/60 05/07/2023 128/72 04/19/2023 129/76 04/16/2023 120/70 03/12/2023 110/76 01/19/2023 127/57 07/31/2022 115/57 07/24/2022 125/68 07/07/2022 116/64 07/03/2022 110/64 No other concerns or complaints. Past medical history, appointments, medications, allergies reviewed. Previous Medical History PAST MEDICAL HISTORY Diagnosis Date Actinic keratosis Autoimmune disease (HCC) Cancer (HCC) 1982 Uterine Cephalalgia Cholelithiasis Depression Diarrhea Disorder of bone and cartilage, unspecified Diverticulitis of colon (without mention of hemorrhage)(562.11) 2003 Dysphagia Essential hypertension 12/28/2021 GCA (giant cell arteritis) (HCC) bx negative GERD (gastroesophageal reflux disease) Glaucoma Hematuria 1999 had workup including cystoscopy, etc. - entire workup negative. No longer happening. IBS (irritable bowel syndrome) Iron deficiency anemia, unspecified ? related to UGI source from NSAID's Mixed hyperlipidemia Palpitations PMR (polymyalgia rheumatica) (HCC) Raynaud's disease /phenomenon Sciatica Steroid long-term use Thyroid nodule Tobacco use disorder Previous Surgical History PAST SURGICAL HISTORY Procedure Laterality Date ABDOMINAL SURGERY HX APPENDECTOMY 1982 incidental APPENDECTOMY HX BREAST SURGERY HX CATARACT EXTRACTION HX bilateral CHOLECYSTECTOMY Cholecystectomy COLONOSCOPY 2012 COLONOSCOPY FLX DX W/COLLJ SPEC WHEN PFRMD 05/09/2021 ESOPHAGOGASTRODUODENOSCOPY TRANSORAL DIAGNOSTIC 07/05/2015 EGD ESOPHAGOGASTRODUODENOSCOPY TRANSORAL DIAGNOSTIC 05/09/2021 EYE SURGERY HX FINE NEEDLE ASPIRATION 04/30/2023 Thyroid FNA FRACTURE SURGERY LEFT HEART CATH,PERCUTANEOUS 2011 Cardiac cath, L heart. Normal PAST SURGICAL HISTORY OF 1987 ulnar ner transferred PAST SURGICAL HISTORY OF 1990 bartholin cyst on vagina PAST SURGICAL HISTORY OF 2005 bone spur to left shoulder PAST SURGICAL HISTORY OF 2007 left knee -- torn meniscus ([place]) PAST SURGICAL HISTORY OF 2011 ORIF R ankle PAST SURGICAL HISTORY OF 2000 Bartholin cyst excised TOTAL ABDOMINAL HYSTERECT W/WO RMVL TUBE OVARY 1982 cervical cancer, still has ovaries VAGINAL HYSTERECTOMY Family History FAMILY HISTORY Problem Relation Age of Onset Diabetes Father late in life Coronary Artery Disease Father Hx of [place], age 71 Tremor Mother Hypertension Mother Cancer Brother Cancer Brother lymphoma - 55; h/o kidney transplant Cancer Brother Mestatic Aneurysm Sister brain Lung Cancer Sister dies at 52 Bipolar disorder Son Tremor Son Colon Cancer Niece Tremor Niece Hyperlipidemia No Family History Blood Clots No Family History Blood Disease No Family History Factor 5 Leiden No Family History DVT No Family History Stroke No Family History Schizophrenia No Family History Systemic Lupus Erythematosus No Family History Multiple Sclerosis No Family History Alzheimer's Disease No Family History Parkinson s Disease No Family History Patient Allergies ALLERGIES No Known Allergies Current Medications Current Outpatient Medications on File Prior to Visit Medication Sig predniSONE (DELTASONE) 10 mg tablet Take 1 tablet by mouth once daily. Take in the morning with food. metoprolol succinate ER (TOPROL XL) 50 mg 24 hr tablet Take 1 tablet by mouth once daily. primidone (MYSOLINE) 250 mg tablet Take 1 tablet by mouth daily at bedtime. calcium carbonate (CALTRATE) 600 mg calcium (1,500 mg) tab Take 1 tablet by mouth every morning. travoprost (TRAVATAN Z) 0.004 % ophthalmic drops 1 Drop. loperamide (IMODIUM) 2 mg cap(s) Take 2 mg by mouth four times daily as needed. CHOLESTYRAMINE, BULK, MISC 1 Scoop once daily. cholecalciferol, vitamin D3, (VITAMIN D3 ORAL) Take by mouth once daily. No current facility-administered medications on file prior to visit. Social History Social History Tobacco Use Smoking status: Every Day Packs/day: 1.00 Years: 35.00 Additional pack years: 0.00 Total pack years: 35.00 Types: Cigarettes Smokeless tobacco: Never Vaping Use Vaping Use: Never used Substance Use Topics Alcohol use: No Drug use: No REVIEW OF SYSTEMS: as above Reviewed relevant PMHx, PSHx, Social Hx, current medications and allergies. Review of Symptoms REVIEW OF SYSTEMS See HPI. EXAM: BP 142/82 (BP Site: Left Arm, BP Position: Sitting, BP Cuff Size: Regular Adult) Pulse 72 Resp 14 Wt 69 kg (152 lb 3.2 oz) BMI 24.94 kg/m General Appearance: Well appearing, alert, in no acute distress, well-hydrated, well nourished.. Skin: Skin color, texture, turgor normal, no suspicious rashes or lesions. Head: Normocephalic, no masses, lesions, tenderness or abnormalities. Lungs: Lungs clear to auscultation. No wheezing, rhonchi, rales.. Heart: RRR without murmur, gallop, or rubs. No ectopy. Health Maintenance List Lung Cancer Screening Never done Advance Directive Discussion Never done Behavioral Health Screening Never done Covid-19 Vaccine(2022- season) due on 06/15/2024 RSV Vaccine(1 - 1-dose 60+ series) due on 01/08/2025 Mammogram Screening due on 10/08/2024 Annual PCP Team Chronic Disease Visit due on 12/16/2024 BP Controlled (<130/80) due on 12/16/2024 Bone Density Screening due on 02/26/2025 Diabetes Screening due on 12/16/2026 Lipid Screening due on 12/16/2028 Colorectal Cancer Screening due on 05/09/2031 DTaP,Tdap,Td Vaccine(3 - Td or Tdap) due on 06/25/2032 Influenza Vaccine Completed Hepatitis C Screening Completed Shingrix Vaccine Completed Pneumococcal Vaccine: 65+ Completed ASSESSMENT/PLAN: 1. Essential hypertension - ICD9: 401.9, ICD10: I10 - Worsening control - Continue current medications - Increase metoprolol succinate to BID dosing. - Recommend home blood pressure monitoring, to bring results to next visit - Encouraged sodium restriction, DASH or Mediterranean diet - Recommend regular aerobic exercise - Follow up in 4 weeks for hypertension visit - METOPROLOL SUCCINATE ER 50 MG TABLET,EXTENDED RELEASE 24 HR RTO in 4 weeks, sooner if needed. Prescription instructions reviewed with patient as applicable. Potential red flag symptoms discussed with the patient. Reviewed appropriate action plan to take if red flag symptoms occur. Patient agreeable to treatment plan. Ronna Walsh APRN.SHINGLE INSPECTOR [address] [place] [address] documented in this encounterSumma [facility]05-22-2024 Telephone encounter Note * Telephone Encounter - Cathy Maravilla LPN - 01/09/2024 8:31 AM EDT ;Left message to return call. [facility]05-21-[facility] Telephone encounter Note* Telephone Encounter - Miah Cottrell DO - 01/08/2024 4:58 PM EDT Please let her know that this is a string of kanu appearance to the carotid arteries, this is a potentially genetic condition. We can send her to a vascular specialist for further testing if she is having a lot of LH/dizziness. Miah Cottrell DO [facility]05-21-2024 Telephone encounter Note* Telephone Encounter - Patricia Madsen RN - 01/08/2024 4:54 PM EDT Pt called and is notified of providers results. Pt asking what the fibromuscular dysplasia means. Patricia Madsen RN [facility]05-21-2024 Telephone encounter Note* Telephone Encounter - Miah Cottrell DO - 01/08/2024 4:39 PM EDT Please inform patient that her carotid artery US is overall stable, mild plaque and signs of fibromuscular dysplasia Miah Cottrell DO [facility]05-21-[facility] History of Present illness Narrative* Yazmin Cruz RT(R) - 01/08/2024 2:20 PM EDT Radiology Service Progress Note PATIENT NAME: Cecelia Quiroz DATE OF SERVICE: January 08, 2024 TIME: 3:46 PM PATIENT IDENTITY VERIFICATION COMPLETED USING TWO (2) IDENTIFIERS: Name and Date of confirmedby patient verbally. FALL SCREENING: Has the patient had 2 falls in the last year or 1 fall with injury or currently using an Ambulatory Assistive Device (Walker, Cane, Wheelchair, Crutches, etc.)? No PATIENT GENDER DATA: Female. status: : No status: NO. PATIENT RELEVANT IMPLANT DATA REVIEWED: Yes PATIENT PRESENTS WITH AN IMPLANTABLE OR ATTACHED SENIOR WINDOWS SYSTEMS ENGINEER: No RADIOLOGY DEPARTMENT: CT; Exam(s) Completed: Chest PERIPHERAL IV DATA: Not applicable SIGNED BY: RT Nabor(R) January 08, 2024 3:46 PM documented in this encounterSumma Health [facility]04-29-2024 History of Present illness Narrative* Miah Cottrell DO - 12/17/2023 1:20 PM EDT CC: Cecelia Quiroz is a 73 year old female who presents to the office for follow up HPI: PMR, GCA, seeing Rheumatology regularly . Has recently had some right neck muscle tension/spasms and discomfort. No falls or obvious injuries. HTN, well controlled, taking medication as prescribed, no CP or dyspnea or dizziness/LH or syncope. Glucose (mg/dL) Date Value 12/17/2023 87 2021 93 Potassium (mmol/L) Date Value 12/17/2023 4.2 2021 4.2 Sodium (mmol/L) Date Value 12/17/2023 136 2021 138 Chloride (mmol/L) Date Value 12/17/2023 100 2021 99 CO2 (mmol/L) Date Value 12/17/2023 25 2021 25 Creatinine (mg/dL) Date Value 12/17/2023 0.72 09/09/2021 0.70 BUN (mg/dL) Date Value 12/17/2023 12 2021 16 Anion Gap (mmol/L) Date Value 12/17/2023 11 2021 14 Calcium (mg/dL) Date Value 2021 9.2 Calcium, Total (mg/dL) Date Value 12/17/2023 9.2 Protein, Total (g/dL) Date Value 12/17/2023 7.4 2021 7.5 Albumin (g/dL) Date Value 12/17/2023 4.0 09/09/2021 4.0 Bilirubin, Total (mg/dL) Date Value 12/17/2023 0.2 2021 0.2 Alkaline Phosphatase (U/L) Date Value 12/17/2023 89 2021 125 AST (U/L) Date Value 12/17/2023 18 09/09/2021 18 ALT (U/L) Date Value 12/17/2023 8 09/09/2021 9 Tobacco use disorder, not willing to quit Dyslipidemia Cholesterol, Total Date Value Ref Range Status 12/17/2023 189 <200 mg/dL Final Comment: <200 mg/dL, Desirable 200-239 mg/dL, Borderline high >239 mg/dL, High HDL Cholesterol Date Value Ref Range Status 12/17/2023 92 >39 mg/dL Final Comment: 40-59 mg/dL, Acceptable >59 mg/dL, High: Negative risk factor for coronary heart disease <40 mg/dL, Low: Positive risk factor for coronary heart disease LDL Cholesterol Date Value Ref Range Status 12/17/2023 76 <100 mg/dL Final Comment: <100 mg/dL, Optimal 100-129 mg/dL, Near optimal/above optimal 130-159 mg/dL, Borderline high 160-189 mg/dL, High >189 mg/dL, Very high Secondary prevention optimal LDL Cholesterol levels are recommended to be < 70 mg/dL Triglyceride Date Value Ref Range Status 12/17/2023 104 <150 mg/dL Final Comment: <150 mg/dL, Normal 150-199 mg/dL, Borderline high 200-499 mg/dL, High >499 mg/dL, Very high Seeing Dr. Hagen intermittently for GI symptoms. Had a CT abd/pelvis that showed concerns for a lung nodule. She has a very long history of tobacco use and not interested in quitting. She hasn't hada recent CT chest RASHEEDA, stable, has increase iron in diet Hemoglobin (g/dL) Date Value 12/17/2023 12.9 09/09/2021 12.2 Hematocrit (%) Date Value 12/17/2023 40.3 09/09/2021 38.2 WBC (k/uL) Date Value 12/17/2023 9.52 09/09/2021 14.19 PAST MEDICAL HISTORY Diagnosis Date Actinic keratosis Autoimmune disease (HCC) Cancer (HCC) 1982 Uterine Cephalalgia Cholelithiasis Depression Diarrhea Disorder of bone and cartilage, unspecified Diverticulitis of colon (without mention of hemorrhage)(562.11) 2003 Dysphagia Essential hypertension 12/28/2021 GCA (giant cell arteritis) (HCC) bx negative GERD (gastroesophageal reflux disease) Glaucoma Hematuria 1999 had workup including cystoscopy, etc. - entire workup negative. No longer happening. IBS (irritable bowel syndrome) Iron deficiency anemia, unspecified ? related to UGI source from NSAID's Mixed hyperlipidemia Palpitations PMR (polymyalgia rheumatica) (HCC) Raynaud's disease /phenomenon Sciatica Steroid long-term use Thyroid nodule Tobacco use disorder PAST SURGICAL HISTORY Procedure Laterality Date ABDOMINAL SURGERY HX APPENDECTOMY 1982 incidental APPENDECTOMY HX BREAST SURGERY HX CATARACT EXTRACTION HX bilateral CHOLECYSTECTOMY Cholecystectomy COLONOSCOPY 2012 COLONOSCOPY FLX DX W/COLLJ SPEC WHEN PFRMD 05/09/2021 ESOPHAGOGASTRODUODENOSCOPY TRANSORAL DIAGNOSTIC 07/05/2015 EGD ESOPHAGOGASTRODUODENOSCOPY TRANSORAL DIAGNOSTIC 05/09/2021 EYE SURGERY HX FINE NEEDLE ASPIRATION 04/30/2023 Thyroid FNA FRACTURE SURGERY LEFT HEART CATH,PERCUTANEOUS 2012 Cardiac cath, L heart. Normal PAST SURGICAL HISTORY OF 1987 ulnar ner transferred PAST SURGICAL HISTORY OF 1990 bartholin cyst on vagina PAST SURGICAL HISTORY OF 2005 bone spur to left shoulder PAST SURGICAL HISTORY OF 2007 left knee -- torn meniscus ([place]) PAST SURGICAL HISTORY OF 2011 ORIF R ankle PAST SURGICAL HISTORY OF 2000 Bartholin cyst excised TOTAL ABDOMINAL HYSTERECT W/WO RMVL TUBE OVARY 1982 cervical cancer, still has ovaries VAGINAL HYSTERECTOMY Social History: Social History Tobacco Use Smoking status: Every Day Packs/day: 1.00 Years: 35.00 Additional pack years: 0.00 Total pack years: 35.00 Types: Cigarettes Smokeless tobacco: Never Vaping Use Vaping Use: Never used Substance Use Topics Alcohol use: No Drug use: No FAMILY HISTORY Problem Relation Age of Onset Diabetes Father late in life Coronary Artery Disease Father Hx of [place], age 71 Tremor Mother Hypertension Mother Cancer Brother Cancer Brother lymphoma - 55; h/o kidney transplant Cancer Brother Mestatic Aneurysm Sister brain Lung Cancer Sister dies at 52 Bipolar disorder Son Tremor Son Colon Cancer Niece Tremor Niece Hyperlipidemia No Family History Blood Clots No Family History Blood Disease No Family History Factor 5 Leiden No Family History DVT No Family History Stroke No Family History Schizophrenia No Family History Systemic Lupus Erythematosus No Family History Multiple Sclerosis No Family History Alzheimer's Disease No Family History Parkinson s Disease No Family History Current Outpatient prescriptions: predniSONE (DELTASONE) 10 mg tablet Take 1 tablet by mouth once daily. Take in the morning with food. metoprolol succinate ER (TOPROL XL) 50 mg 24 hr tablet Take 1 tablet by mouth once daily. primidone (MYSOLINE) 250 mg tablet Take 1 tablet by mouth daily at bedtime. calcium carbonate (CALTRATE) 600 mg calcium (1,500 mg) tab Take 1 tablet by mouth every morning. travoprost (TRAVATAN Z) 0.004 % ophthalmic drops 1 Drop. loperamide (IMODIUM) 2 mg cap(s) Take 2 mg by mouth four times daily as needed. CHOLESTYRAMINE, BULK, MISC 1 Scoop once daily. cholecalciferol, vitamin D3, (VITAMIN D3 ORAL) Take by mouth once daily. Allergies: ALLERGIES No Known Allergies ROS: Gen: Negative for fatigue, weight changes, fevers, chills. HEENT: Negative for rhinnorrhea, nasal congestion, sinus pressure, eye drainage, eye redness, sore throat, post nasal drainage. CV: Negative for chest pain, palpitations or edema of LEs. Lungs: Negative for cough, SOB, wheezing. Abd: Negative for abd pain, n/v/d/c. Endo: Negative for cold intolerance, heat intolerance, skin changes, polyuria, polydipsia Skin: Negative for lesions, rashes, wounds, MS: Negative for joint pains, muscle aches, weakness Neuro: Negative for headache, paresthesias Genitourinary: Negative for urinary frequency, urgency, dysuria, hematuria, incomplete emptying, weak urinary stream, erectile dysfunction, libido abnormalities. Psych: Negative for depressed mood, anxiety. Hem/Onc: Negative for easy bruising, bleeding PE: 12/17/23 1245 BP: 122/60 Pulse: 60 Resp: 16 Temp: 36.1 C (97 F) TempSrc: Temporal Weight: 68 kg (150 lb) Gen: A&O, NAD, non-toxic appearing, Pleasant, cooperative HEENT: NT/AC, PERRLA, EOMs intact b/l, nares clear and patent b/l, pharynx without erythema, exudate or lesions. Uvula midline, MMM. EACs without erythema or debris. TMs pearly hernandez with intact landmarks b/l. Neck: supple, No cervical LAD, no thyromegaly, no carotid bruits, + muscle spasm and tension CV: RRR, normal S1 and S2, no murmurs, no gallops, no rubs, Pulses 2+ and symmetric in UE and LE b/l Lungs: normal respiratory effort, CTA b/l, diminished breath sounds at bases, no distress Abd: soft, NT, ND, +BS, no hepatosplenomegaly MS: arthritis changes of joints, chronic myalgias. Tendon contracture changes of right palmar surface of hand Neuro: CN II-XII intact b/l, strength 5/5 b/l UE and LE, DTRs 2/4 UE and LE, sensation intact. Skin: warm, dry, intact, No rashes or lesions on exposed skin. No edema, normal pulses ASSESSMENT/PLAN: 1. Nodule of lower lobe of left lung - ICD9: 793.11, ICD10: R91.1 (primary diagnosis) Need for CT chest Asymptomatic Long standing hx of tobacco use - CT CHEST WO IVCON 2. Carotid atherosclerosis, bilateral - ICD9: 433.10, 433.30, ICD10: I65.23 Need for recheck US carotid arteries. - US CAROTID ARTERIES [facility] 3. Dupuytren's contracture of right hand - ICD9: 728.6, ICD10: M72.0 D/w her today that this is benign, needs to continue use of hands and stretches. F/u with Orthopedics if worsening. 4. Hyperlipidemia, mixed - ICD9: 272.2, ICD10: E78.2 - Control undetermined, due for labs - Continue current medications - Counseled on healthy diet and regular exercise - LIPID PANEL BASIC 5. Fatigue, unspecified type - ICD9: 780.79, ICD10: R53.83 Stable, chronic 6. Thyroid nodule - ICD9: 241.0, ICD10: E04.1 stable 7. Iron deficiency - ICD9: 280.9, ICD10: E61.1 Recheck labs - IRON AND TIBC - COMPREHENSIVE METABOLIC PANEL - COMPLETE BLOOD COUNT AND DIFFERENTIAL 8. Hyperglycemia - ICD9: 790.29, ICD10: R73.9 Recheck labs - HEMOGLOBIN A1C 9. Vitamin B12 deficiency - ICD9: 266.2, ICD10: E53.8 Continue supplement 10. Essential hypertension - ICD9: 401.9, ICD10: I10 - Controlled - Continue current medications - Recommend home blood pressure monitoring, to bring results to next visit - Encouraged sodium restriction, DASH or Mediterranean diet - Recommend regular aerobic exercise 11. 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) - ICD9: 446.5, 725, ICD10: M31.5 F/u with Cable Technician 12. Osteoporosis, postmenopausal - ICD9: 733.01, ICD10: M81.0 - Reviewed the need for Calcium and Vitamin D supplements and weight bearing exercise as tolerated 13. Tobacco use - ICD9: 305.1, ICD10: Z72.0 - Cessation encouraged. - Physiologic and physical aspects of tobacco addiction as well as strategies for quitting were discussed. - Counseling was given focusing on the harmful effects of this addiction especially given the patient's medical condition(s) which will be worsened because of the chemicals in tobacco. 14. Vitamin D deficiency - ICD9: 268.9, ICD10: E55.9 Continue supplement Miah Cottrell, DO To ER if develops chest pain, shortness of breath, or severe worsening of symptoms. Discussed risks, benefits, alternatives, and potential side effects of medications. Patient expressed understanding and agreed with the plan. Miah Cottrell DO [address] [place] [address] documented in this encounterSum[facility]04-15-[facility]24 Miscellaneous Notes* Telephone Encounter - Keely Rousseau RN - 12/03/2023 8:28 AM EDT Patient has been identified by name and date of : Yes RX INSTRUCTIONS: Patient aware RX will be sent to pharmacy. No need to notify patient. Last Dexa Scan 10/05/2023 LAST APPOINTMENT: 10/05/2023 UPCOMING APPOINTMENT: 01/28/2024 LABS: Hemoglobin (g/dL) Date Value 03/12/2023 12.9 09/09/2021 12.2 Hematocrit (%) Date Value 03/12/2023 40.9 09/09/2021 38.2 WBC (k/uL) Date Value 03/12/2023 11.98 09/09/2021 14.19 Platelet Count (k/uL) Date Value 03/12/2023 280 09/09/2021 304 AST Date Value Ref Range Status 10/22/2023 20 13 - 35 U/L Final ALT Date Value Ref Range Status 10/22/2023 10 7 - 38 U/L Final Creatinine Date Value Ref Range Status 10/22/2023 0.80 0.58 - 0.96 mg/dL Final * Telephone Encounter - Zara Cheema MA - 12/03/2023 8:23 AM EDT Patient has been identified by name and date of : Yes RX INSTRUCTIONS: Patient aware RX will be sent to pharmacy. No need to notify patient. LAST APPOINTMENT: 10/05/2023 UPCOMING APPOINTMENT: 01/28/2024 LABS: Hemoglobin (g/dL) Date Value 03/12/2023 12.9 09/09/2021 12.2 Hematocrit (%) Date Value 03/12/2023 40.9 09/09/2021 38.2 WBC (k/uL) Date Value 03/12/2023 11.98 09/09/2021 14.19 Platelet Count (k/uL) Date Value 03/12/2023 280 09/09/2021 304 AST Date Value Ref Range Status 10/22/2023 20 13 - 35 U/L Final ALT Date Value Ref Range Status 10/22/2023 10 7 - 38 U/L Final Creatinine Date Value Ref Range Status 10/22/2023 0.80 0.58 - 0.96 mg/dL Final No results found for: URICACID Zara Cheema MA documented in this encounterSumma [facility]03-14-2024 Miscellaneous Notes* Telephone Encounter - Mali Singh OCCA - 11/01/2023 8:39 AM EDT TC to patient who verbalized understanding of providers message below with no questions at this time. AHIDER Cornell * Telephone Encounter - Miah Cottrell DO - 10/31/2023 10:21 PM EDT Please inform patient that her labs are all stable that I ordered Miah Cottrell DO documented in this encounterSumma [facility]02-21-2024 Miscellaneous Notes* Letter - Coordinator, Mammography - 10/10/2023 6:43 AM EST October 10, 2023 PID: [id number] Cecelia Quiroz [address] [place] [address] Dear Ms. Quiroz, We are pleased to inform you that the results of your recent breast imaging exam on 10/08/2023 are normal. Your mammogram demonstrates that you have dense breast tissue, which could hide abnormalities. Dense breast tissue, in and of itself, is a relatively common condition. Therefore, this information is not provided to cause undue concern; rather, it is to raise your awareness and promote discussion with your health care provider regarding the presence of dense breast tissue in addition to other riskfactors. Early detection of cancer is very important. We also understand recommendations regarding breast cancer screening are controversial. Please discuss with your primary care provider which strategy is best for you and whether a mammogram is right for you. Your imaging studies and report will be kept on file at [facility] as part of your permanent medical record and are available for your continuing care. Thank you for allowing us to help in meeting your health care needs. Sincerely, Dr. Hunt Interpreting Radiologist [facility] (Normal over 40) documented in this encounterSumma Health [facility]02-19-2024 History of Present illness Narrative* Tamika Tyson Mammo Tech - 10/08/2023 10:10 AM EST Radiology Service Progress Note PATIENT NAME: Cecelia Quiroz DATE OF SERVICE: October 08, 2023 TIME: 10:09 AM PATIENT IDENTITY VERIFICATION COMPLETED USING TWO (2) IDENTIFIERS: Name and Date of confirmedby patient verbally. FALL SCREENING: Has the patient had 2 falls in the last year or 1 fall with injury or currently using an Ambulatory Assistive Device (Walker, Cane, Wheelchair, Crutches, etc.)? No PATIENT GENDER DATA: Female. status: : No status: NO. PATIENT RELEVANT IMPLANT DATA REVIEWED: Not Applicable PATIENT PRESENTS WITH AN IMPLANTABLE OR ATTACHED SENIOR WINDOWS SYSTEMS ENGINEER: No RADIOLOGY DEPARTMENT: Mammography PERIPHERAL IV DATA: Not applicable SIGNED BY: Nicolas DanielYieldex Mendel October 08, 2023 10:09 AM documented in this encounterSumma Health [facility]02-16-2024 History of Present illness Narrative* Palma Lovett APRN.SHINGLE INSPECTOR - 10/05/2023 3:00 PM EST [facility]up [facility] for GCA, PMR and osteoporosis. 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 With negative TA biopsies x2 - From Jun-Sep, on MTX which was stopped due to inefficacy - In October, started on acemtra which was stopped after 3 infusions - In Apr, fell off a trailer and broke L humerus - In Jul, seen by Dr. Gonzalez. On baseline prednisone 10mg/day. Given medrol dose pack for flarewith plans to return to prednisone 10mg/day thereafter. She was hesitant to reduce baseline pred 10mg/day further given previous attempts to taper led to flares of pain and headache - On 07/28/19, received prolia - In October, reported baseline pain in the R>L shoulders/arms. Not flaring. On pred 10mg/day - In January and Apr, reported stable PMR on pred 10mg/day - In Aug, reported taking pred 10mg/day. Taking forteo. No interim fracture. - In February, started on HCQ given active pain. pred 10mg/day continued - On 05/16/21, reported no improvement in L shoulder, neck and base of skull pain w/pred 20mg/day. Referred to spine and PT - In May reported taking pred 10mg/day. Continued to have significant pain awakening her at night, located in L side of the neck/base of skull. Prescribed a pred 40mg taper - In Aug, reported no change with increased pred dose. On pred 10mg/day at the time of the visit. Was off HCQ so advised to resume - In November, reported no chagne on HCQ. Remained on pred 10mg/day. Resumed forteo 3 months prior(was off x2 months prior to that as she had run out) - In February, reported feeling the same. On pred 10mg/day. Was to have stopped forteo in last but was still taking it. Forteo stopped, last dose in February. Was advised to resume prolia but was waiting for surgery clearance given ankle surgery. Off HCQ. - In Mar s/p R ankle surgery (hardware removal) - In Apr, prednisone course helped a lot. Started MTX SC -in 07/2022, reports MTX didn't help. Hurts worse and feels nausea/fatigue with it. On pred 10mg/day - Gets parietal TEJADA. No temporal TEJADA. No jaw pain or vision loss. Has had scalp tenderness but not now. - HCQ didn't help. - Takes calcium/vit D - Hx of PUD - Last plaquenil eye exam normal in Sep (off HCQ) PAST MEDICAL HISTORY Diagnosis Date Actinic keratosis Autoimmune disease (HCC) Cancer (HCC) 1982 Uterine Cephalalgia Cholelithiasis Depression Diarrhea Disorder of bone and cartilage, unspecified Diverticulitis of colon (without mention of hemorrhage)(562.11) 2003 Dysphagia Essential hypertension 12/28/2021 GCA (giant cell arteritis) (HCC) bx negative GERD (gastroesophageal reflux disease) Glaucoma Hematuria 1999 had workup including cystoscopy, etc. - entire workup negative. No longer happening. IBS (irritable bowel syndrome) Iron deficiency anemia, unspecified ? related to UGI source from NSAID's Mixed hyperlipidemia Palpitations PMR (polymyalgia rheumatica) (HCC) Raynaud's disease /phenomenon Sciatica Steroid long-term use Thyroid nodule Tobacco use disorder PAST SURGICAL HISTORY Procedure Laterality Date ABDOMINAL SURGERY HX APPENDECTOMY 1982 incidental APPENDECTOMY HX BREAST SURGERY HX CATARACT EXTRACTION HX bilateral CHOLECYSTECTOMY Cholecystectomy COLONOSCOPY 2012 COLONOSCOPY FLX DX W/COLLJ SPEC WHEN PFRMD 05/09/2021 ESOPHAGOGASTRODUODENOSCOPY TRANSORAL DIAGNOSTIC 07/05/2015 EGD ESOPHAGOGASTRODUODENOSCOPY TRANSORAL DIAGNOSTIC 05/09/2021 EYE SURGERY HX FINE NEEDLE ASPIRATION 04/30/2023 Thyroid FNA FRACTURE SURGERY LEFT HEART CATH,PERCUTANEOUS 2011 Cardiac cath, L heart. Normal PAST SURGICAL HISTORY OF 1987 ulnar ner transferred PAST SURGICAL HISTORY OF 1990 bartholin cyst on vagina PAST SURGICAL HISTORY OF 2005 bone spur to left shoulder PAST SURGICAL HISTORY OF 2007 left knee -- torn meniscus ([place]) PAST SURGICAL HISTORY OF 2011 ORIF R ankle PAST SURGICAL HISTORY OF 2000 Bartholin cyst excised TOTAL ABDOMINAL HYSTERECT W/WO RMVL TUBE OVARY 1982 cervical cancer, still has ovaries VAGINAL HYSTERECTOMY ALLERGIES No Known Allergies INTERVAL HISTORY She is here for follow up. She reports neck spasms. Last prolia was 07/23/2023, which she tolerated well. She is taking calcium and vitamin D. No falls or fractures since [facility]. She is taking prednisone 10 mg daily. Sites of pain: neck, b/l shoulder, knees, pain rated 6/10 Muscle weakness: upper extremities Headaches: reports one temporal headache since the MAGGIE Jaw claudication: none Scalp tenderness: yes Vision changes: none Joint swelling: none EMS: intermittent stiffness to knees No recent infections. Tolerating meds. Answers submitted by the patient for this visit: Review of Systems Rheumatology (Submitted on 10/03/2023) Fever : No Eye pain: No Eye redness: No Vision Disturbance: Yes Eye Dryness: Yes Nosebleeds: No Sores in your mouth: No Trouble Swallowing: No Dry Mouth: Yes Chest pain: No Leg Swelling: No A cough: No Shortness of breath: No Pain with breathing: No Heartburn: Yes Abdominal pain: No Diarrhea: No Black tarry stools: No Blood in urine: No Pain or burning with urination: No Joint pain or stiffness: Yes Muscle weakness: Yes Muscle aches: Yes Joint swelling: Yes Morning Stiffness in Joints: No A rash: No Skin Color Changes: No Hair Loss: No Nail Changes: No Headaches: Yes Numbness: Yes Memory Loss: No Swollen Glands: No Current Outpatient Medications Medication Sig metoprolol succinate ER (TOPROL XL) 50 mg 24 hr tablet Take 1 tablet by mouth once daily. predniSONE (DELTASONE) 10 mg tablet Take 1 tablet by mouth once daily. Take in the morning with food. primidone (MYSOLINE) 250 mg tablet Take 1 tablet by mouth daily at bedtime. calcium carbonate (CALTRATE) 600 mg calcium (1,500 mg) tab Take 1 tablet by mouth every morning. travoprost (TRAVATAN Z) 0.004 % ophthalmic drops 1 Drop. loperamide (IMODIUM) 2 mg cap(s) Take 2 mg by mouth four times daily as needed. CHOLESTYRAMINE, BULK, MISC 1 Scoop once daily. cholecalciferol, vitamin D3, (VITAMIN D3 ORAL) Take by mouth once daily. No current facility-administered medications for this visit. FAMILY HISTORY Problem Relation Age of Onset Diabetes Father late in life Coronary Artery Disease Father Hx of [place], age 71 Tremor Mother Hypertension Mother Cancer Brother Cancer Brother lymphoma - 55; h/o kidney transplant Cancer Brother Mestatic Aneurysm Sister brain Lung Cancer Sister dies at 52 Bipolar disorder Son Tremor Son Colon Cancer Niece Tremor Niece Hyperlipidemia No Family History Blood Clots No Family History Blood Disease No Family History Factor 5 Leiden No Family History DVT No Family History Stroke No Family History Schizophrenia No Family History Systemic Lupus Erythematosus No Family History Multiple Sclerosis No Family History Alzheimer's Disease No Family History Parkinson s Disease No Family History SOCIAL HISTORY: Lives in [place]. Works. Family lives in [place] Tobacco use: 1 ppd Alcohol use: None PHYSICAL EXAMINATION: BP 161/75 Pulse 60 Temp 36.3 C (97.3 F) (Temporal) Ht 166.4 cm (5' 5.5) Wt 68.5 kg (151 lb) BMI 24.75 kg/m General appearance: Well appearing, alert, in no acute distress, well-hydrated, well nourished. Skin: Skin color, texture, turgor normal, no suspicious rashes or lesions Eyes: Anicteric sclera. Head: no tenderness to scalp or temples Oropharynx: Lips, mucosa, and tongue normal, teeth and gums normal, oropharynx normal Neck: Supple, no adenopathy Lungs: Lungs clear to auscultation. No wheezing, rhonchi, rales. Heart: RRR without murmur Abdomen: Normal abdominal exam, Abdomen soft, non-tender. Bowel sounds normal. No masses, organomegaly Neuro: Gait normal. Sensation grossly intact. JOINTS: TENDER JOINTS: R ankle SWOLLEN JOINTS: none No tenderness to muscles Muscle strength intact *October Widespread Pain Index: 12 (0-19) Symptoms Severity Scale: 4 (0-12) WPI>7 and SS Scale>5 OR WPI 3-6 and SS Scale >9 consistent with fibromyalgia Labs reviewed and discussed with the patient: Component Latest Ref Rng & Units 05/09/2023 Creatinine 0.58 - 0.96 mg/dL 0.70 eGFR >=60 mL/min/1.73m 91 Calcium 8.5 - 10.2 mg/dL 9.5 Vitamin D 25 Hydroxy 31.0 - 80.0 ng/mL 30.1 (L) WSR 0 - 20 mm/hr 54 (H) CRP <0.9 mg/dL 1.6 (H) *Apr neg quant gold, hep b/c Component Latest Ref Rng & Units 11/21/2019 01/30/2020 04/30/2020 Creatinine 0.58 - 0.96 mg/dL 0.90 eGFR- >60 eGFR-All Other Races . >60 Calcium 8.5 - 10.2 mg/dL 9.4 PTH, Intact 15 - 65 pg/mL 36 Vitamin D 25 Hydroxy 31.0 - 80.0 ng/mL 36.6 WSR 0 - 20 mm/hr 54 (H) CRP <0.9 mg/dL 0.5 STUDIES: 02/2023 DEXA: IMPRESSION: THE LOWEST T-SCORE IS -2.2 IN THE LEFT HIP RESULTS: Lumbar spine (L1-L4): 1.005 g/cm2 , T-score -0.4 , Z-score 1.9 . 0.120 g/sq cm improved Left Femoral Neck: 0.603 g/cm2 , T-score-2.2 , Z-score-0.3 . Not significantly changed Left Total Hip: 0.789 g/cm2 , T-score-1.3 , Z-score 0.4 . Right Femoral Neck: 0.660 g/cm2 , T-score -1.7 , Z-score0.3 . 0.072 g/sq cm improved Right Total Hip: 0.769 g/cm2 , T-score-1.4 , Z-score 0.2 Left Forearm, Distal 1/3 of Radius: g/cm2 , T-score , Z-score . *May CXR- no acute changes *January DXA- IMPRESSION: THE LOWEST T-SCORE IS -2.1 IN THE RIGHT HIP 1) DIAGNOSIS (based on BMD alone): OSTEOPENIA . There has been no significant interval change Lumbar spine (L1-L4): 1.132 g/cm2 , T-score -0.4, Z-score 1.5 . Left Femoral Neck: 0.776 g/cm2 , T-score-1.9, Z-score0. . This is not significantly changed Left Total Hip: 0.787 g/cm2 , T-score-1.7, Z-score 0. . This is not significantly changed Right Femoral Neck: 0.781 g/cm2 , T-score -1.8, Z-score0.1 . This is not significantly changed Right Total Hip: 0.742 g/cm2 , T-score-2.1, Z-score -0.4 . This is not significantly changed *February DEXA- THE LOWEST T-SCORE IS -2.1 IN THE LEFT femoral neck. This has been a statistically significant decrease in the bone density since the previous study. Lumbar spine (L1-L4): 1.107 g/cm2, T-score -0.6, Z-score 1.3 . Left Femoral Neck: 0.740 g/cm2 , T-score-2.1, Z-score-0.3 . Previous BMD(g/cm2 ) 0.784 . The change is statistically significant. Left Total Hip: 0.756 g/cm2 , T-score-2., Z-score -0.4 . Right Femoral Neck: 0.773 g/cm2 , T-score -1.9, Z-score-0.1 . Right Total Hip: 0.75 g/cm2 , T-score-2., Z-score -0.4 1) DIAGNOSIS (based on BMD alone): OSTEOPENIA *January DEXA- Osteopenia of the bilateral hips LUMBAR SPINE: The bone mineral density from L1 through L4 is 1.129 grams per square centimeter which yields a T-score of -0.4. . LEFT HIP: The bone mineral density of the total region of the hip is 0.804 grams per square centimeter which yields a T-score of -1.6. . LEFT FEMORAL NECK: The bone mineral density of the femoral neck is 0.784 grams per square centimeter which yields a T-score of -1.8. . RIGHT HIP: The bone mineral density of the total region of the hip is 0.768 grams per square centimeter which yields a T-score of -1.9. . RIGHT FEMORAL NECK: The bone mineral density of the femoral neck is 0.777 grams per square centimeter which yields a T-score of -1.9. *January DEXA- IMPRESSION: Severe osteopenia in both femoral necks, significant decline in R femoral neck. LUMBAR SPINE: The bone mineral density from L1 through L4 is 0.885 grams per square centimeter which yields a T-score of -1.5. This is 3.9% mproved. LEFT HIP: The bone mineral density of [...] T-score of -2.4. This is 3.9% worse. IMPRESSION and PLAN: 1. PMR/GCA: Steroid-responsive shoulder/hip pain and CT neck with findings suspicious for vasculitis with negative TA biopsies x2. Has tried: HCQ, MTX PO/SC and actemra without improvement. Stable overall on prednisone 10 mg daily. - Continue prednisone 10mg/day (flares on doses <9mg/day). R/b/a of medication discussed. - Offered to resume HCQ, which she continues to defer - Tylenol prn -check labs in 10/2023 2. Osteoporosis: In , had traumatic R ankle fracture after a fall at work. From -, on actonel. From January-May (with a break and resumption of medication in December), on fosamax. January DEXA with osteoporosis. January DEXA with osteopenia but decline in BMD in one area. In May, fosamax switched to prolia. In Apr, had a L humeral fracture so advised to start forteo. In January, started forteo, completed in February. February DEXA with decline. January DXA stable. 02/2023 DEXA: lowest T-score -2.2 with increase to lumbar spine and R femoral neck, otherwise stable. Last prolia was in 07/2023. - continue prolia-next due 01/2024. Will have her scheduled for this. - Check labs in 10/2023. Notify of results via [facility] - Continue calcium and vitamin D supplementation - Check DEXA in Jan (for retirement steroid use)-order placed and she was reminded to schedule on the same machine as prior 3. PUD: With bleeding gastric ulcer per Jul EGD related to NSAID use - Avoid NSAIDs PO 4. Tobacco use: - Encouraged smoking cessation in the past 5. DDD: - Tylenol prn, avoid NSAIDs PO 6. General health maintenance: - Completed the covid vaccination series in November, pfizer. - Advised to continue follow-up with PCP for routine health maintenance and malignancy screening -she was advised to f/u with her pcp for elevated BP Follow-up in 4 months, or sooner if needed. Patient was instructed to call if any questions or concerns. Thank you for allowing me to participate in the care of your patient. I spent a total of 20 minutes on the date of the service which included preparing to see the patient, [id number] patient care, completing clinical documentation, performing a medically appropriate examination, ordering medications, tests, or procedures, and communicating results to the patient/fam shane/caregiver. Palma Lovett APRN.CNP documented in this encounterSumma [facility]02-13-2024 Instructions* Patient Instructions* Palma Lovett APRN.CNP - 10/02/2023 4:15 PM EST Please schedule bone density on the same machine as prior after 02/27/2024 Please have labs done around 11/07/2023 documented in this encounterSumma Health [facility]12-04-2023 History of Present illness Narrative* Donna Mattson RN - 07/23/2023 10:17 AM EST Patient denies fractures or falls since last visit. Yes Patient denies any dental work in last 2 months or upcoming 2 months. Yes Patient given Prolia SQ in the right arm Patient tolerated injection well. Lot #: [id number] Exp. Date: 10/17/2025 Last Vitamin D & Serum Calcium: Calcium (mg/dL) Date Value 2021 9.2 Calcium, Total (mg/dL) Date Value 05/09/2023 9.5 Vitamin D 25 Hydroxy (ng/mL) Date Value 05/09/2023 30.1 09/09/2021 44.3 Last DXA: 03/02/2023 Visit scheduled. Next Prolia Appointment: 01/28/2024 Donna Mattson RN documented in this encounterSumma Health [facility]11-27-2023 Miscellaneous Notes* Telephone Encounter - Palma Lovett APRN.IRINEO - 07/16/2023 3:17 PM EST Order signed. Palma Cuellar APRN.SHINGLE INSPECTOR * Telephone Encounter - Donna Mattson RN - 07/16/2023 2:[address] CAM order for upcoming prolia Injection Last Vitamin D & Serum Calcium: Calcium (mg/dL) Date Value 2021 9.2 Calcium, Total (mg/dL) Date Value 05/09/2023 9.5 Vitamin D 25 Hydroxy (ng/mL) Date Value 05/09/2023 30.1 09/09/2021 44.3 Lab Results Component Value Date CREAT 0.70 05/09/2023 Last DXA: 03/02/2023 Visit scheduled. Next Prolia Appointment: 07/23/2023 Last prolia injection 01/19/2023 Referral Dates From : Medicare A+ B Next Lab Date: 12/2023 Donna Mattson RN documented in this encounterSumma Health [facility]10-27-2023 Instructions* Patient Instructions* Miah Cottrell DO - 06/15/2023 12:54 PM EDT Magnesium glycinate or gluconate or oxide 250-400 mg a day in the evening to help neck pain documented in this encounterSumma Health [facility]10-27-2023 History of Present illness Narrative* Miah Cottrell DO - 06/15/2023 12:50 PM EDT CC: Cecelia Quiroz is a 73 year old female who presents to the office for follow up HPI: PMR, GCA, seeing Rheumatology regularly . Has recently had some right neck muscle tension/spasms and discomfort. No falls or obvious injuries. HTN, well controlled, taking medication as prescribed, no CP or dyspnea or dizziness/LH or syncope. Glucose (mg/dL) Date Value 03/12/2023 114 2021 93 Potassium (mmol/L) Date Value 03/12/2023 3.8 2021 4.2 Sodium (mmol/L) Date Value 03/12/2023 140 2021 138 Chloride (mmol/L) Date Value 03/12/2023 101 2021 99 CO2 (mmol/L) Date Value 03/12/2023 25 2021 25 Creatinine (mg/dL) Date Value 05/09/2023 0.70 09/09/2021 0.70 BUN (mg/dL) Date Value 03/12/2023 14 2021 16 Anion Gap (mmol/L) Date Value 03/12/2023 14 2021 14 Calcium (mg/dL) Date Value 2021 9.2 Calcium, Total (mg/dL) Date Value 05/09/2023 9.5 Protein, Total (g/dL) Date Value 03/12/2023 7.5 2021 7.5 Albumin (g/dL) Date Value 03/12/2023 4.2 09/09/2021 4.0 Bilirubin, Total (mg/dL) Date Value 03/12/2023 0.2 2021 0.2 Alkaline Phosphatase (U/L) Date Value 03/12/2023 88 2021 125 AST (U/L) Date Value 03/12/2023 17 09/09/2021 18 ALT (U/L) Date Value 03/12/2023 8 09/09/2021 9 RASHEEDA, had labs rechecked in February, stable Hemoglobin (g/dL) Date Value 03/12/2023 12.9 09/09/2021 12.2 Hematocrit (%) Date Value 03/12/2023 40.9 09/09/2021 38.2 WBC (k/uL) Date Value 03/12/2023 11.98 09/09/2021 14.19 Tobacco use disorder, not willing to quit PAST MEDICAL HISTORY Diagnosis Date Actinic keratosis Autoimmune disease (HCC) Cancer (HCC) 1982 Uterine Cephalalgia Cholelithiasis Depression Diarrhea Disorder of bone and cartilage, unspecified Diverticulitis of colon (without mention of hemorrhage)(562.11) 2003 Dysphagia Essential hypertension 12/28/2021 GCA (giant cell arteritis) (HCC) bx negative GERD (gastroesophageal reflux disease) Glaucoma Hematuria 1999 had workup including cystoscopy, etc. - entire workup negative. No longer happening. IBS (irritable bowel syndrome) Iron deficiency anemia, unspecified ? related to UGI source from NSAID's Mixed hyperlipidemia Palpitations PMR (polymyalgia rheumatica) (HCC) Raynaud's disease /phenomenon Sciatica Steroid long-term use Thyroid nodule Tobacco use disorder PAST SURGICAL HISTORY Procedure Laterality Date ABDOMINAL SURGERY HX APPENDECTOMY 1983 incidental APPENDECTOMY HX BREAST SURGERY HX CATARACT EXTRACTION HX bilateral CHOLECYSTECTOMY Cholecystectomy COLONOSCOPY 2012 COLONOSCOPY FLX DX W/COLLJ SPEC WHEN PFRMD 05/09/2021 ESOPHAGOGASTRODUODENOSCOPY TRANSORAL DIAGNOSTIC 07/05/2015 EGD ESOPHAGOGASTRODUODENOSCOPY TRANSORAL DIAGNOSTIC 05/09/2021 EYE SURGERY HX FINE NEEDLE ASPIRATION 04/30/2023 Thyroid FNA FRACTURE SURGERY LEFT HEART CATH,PERCUTANEOUS 2011 Cardiac cath, L heart. Normal PAST SURGICAL HISTORY OF 1987 ulnar ner transferred PAST SURGICAL HISTORY OF 1990 bartholin cyst on vagina PAST SURGICAL HISTORY OF 2005 bone spur to left shoulder PAST SURGICAL HISTORY OF 2007 left knee -- torn meniscus ([place]) PAST SURGICAL HISTORY OF 2011 ORIF R ankle PAST SURGICAL HISTORY OF 2000 Bartholin cyst excised TOTAL ABDOMINAL HYSTERECT W/WO RMVL TUBE OVARY 1982 cervical cancer, still has ovaries VAGINAL HYSTERECTOMY Current Outpatient Medications Medication Sig predniSONE (DELTASONE) 10 mg tablet Take 1 tablet by mouth once daily. Take in the morning with food. primidone (MYSOLINE) 250 mg tablet Take 1 tablet by mouth daily at bedtime. metoprolol succinate ER (TOPROL XL) 50 mg 24 hr tablet Take 1 tablet by mouth once daily. calcium carbonate (CALTRATE) 600 mg calcium (1,500 mg) tab Take 1 tablet by mouth every morning. travoprost (TRAVATAN Z) 0.004 % ophthalmic drops 1 Drop. loperamide (IMODIUM) 2 mg cap(s) Take 2 mg by mouth four times daily as needed. CHOLESTYRAMINE, BULK, MISC 1 Scoop once daily. cholecalciferol, vitamin D3, (VITAMIN D3 ORAL) Take by mouth once daily. No current facility-administered medications for this visit. ALLERGIES No Known Allergies Social History Tobacco Use Smoking status: Every Day Packs/day: 1.00 Years: 35.00 Additional pack years: 0.00 Total pack years: 35.00 Types: Cigarettes Smokeless tobacco: Never Vaping Use Vaping Use: Never used Substance Use Topics Alcohol use: No Drug use: No ROS: See HPI PE: BP 120/60 Pulse 76 Temp (Src) 97.3 (Left Tympanic) Resp 16 Wt 149 lb (67.6kg) Gen: A&O, NAD, non-toxic appearing, Pleasant, cooperative HEENT: NT/AC, PERRLA, EOMs intact b/l, nares clear and patent b/l, pharynx without erythema, exudate or lesions. Uvula midline, MMM. EACs without erythema or debris. TMs pearly hernandez with intact landmarks b/l. Neck: supple, No cervical LAD, no thyromegaly, no carotid bruits, + muscle spasm and tension right >left without midline spinal TTP, mild reduction in rotation CV: RRR, normal S1 and S2, no murmurs, no gallops, no rubs, Pulses 2+ and symmetric in UE and LE b/l Lungs: normal respiratory effort, CTA b/l, diminished breath sounds at bases, no distress Abd: soft, NT, ND, +BS, no hepatosplenomegaly MS: arthritis changes of joints, chronic myalgias. Neuro: CN II-XII intact b/l, strength 5/5 b/l UE and LE, DTRs 2/4 UE and LE, sensation intact. Skin: warm, dry, intact, No rashes or lesions on exposed skin. No edema, normal pulses ASSESSMENT/PLAN: 1. Essential hypertension - ICD9: 401.9, ICD10: I10 (primary diagnosis) - Controlled - Continue current medications - Recommend home blood pressure monitoring, to bring results to next visit - Encouraged sodium restriction, DASH or Mediterranean diet - Recommend regular aerobic exercise 2. Need for influenza vaccination - ICD9: V04.81, ICD10: Z23 - INFLUENZA VACCINE, PRSV FREE, AGE 65+ YR, HIGH DOSE, QUADRIVALENT (FLUZONE HIGH-DOSE) 3. Multiple thyroid nodules - ICD9: 241.1, ICD10: E04.2 Recheck labs, no new symptoms - COMP METABOLIC PANEL - TSH BLD - T4 FREE/FREE THYROX 4. Vitamin B12 deficiency - ICD9: 266.2, ICD10: E53.8 Continue supplement - VITAMIN B12 BLOOD 5. Hyperlipidemia, mixed - ICD9: 272.2, ICD10: E78.2 - Control undetermined, due for labs - Continue current medications - Counseled on healthy diet and regular exercise 6. 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) - ICD9: 446.5, 725, ICD10: M31.5 F/u with Rheumatologsit 7. Osteoporosis, postmenopausal - ICD9: 733.01, ICD10: M81.0 - Reviewed the need for Calcium and Vitamin D supplements and weight bearing exercise as tolerated 8. Fatigue, unspecified type - ICD9: 780.79, ICD10: R53.83 Chronic, stable symptoms 9. Tobacco use - ICD9: 305.1, ICD10: Z72.0 - Cessation encouraged. - Physiologic and physical aspects of tobacco addiction as well as strategies for quitting were discussed. - Counseling was given focusing on the harmful effects of this addiction especially given the patient's medical condition(s) which will be worsened because of the chemicals in tobacco. 10. Chronic neck pain - ICD9: 723.1, 338.29, ICD10: M54.2, G89.29 Stretches, exercises, likely due to OA in neck Miah Cottrell DO Return if no improvement. Follow up with Miah Cottrell DO. To ER if develops chest pain, shortness of breath Discussed risks, benefits, alternatives, and potential side effects of medications. Patient/Guardian expressed understanding and agreed with the plan. See patient instructions. Miah Cottrell DO [address] [place] [address] documented in this encounterSumma Health [facility]09-26-2023 Miscellaneous Notes* Telephone Encounter - Nerissa Campa LPN - 05/15/2023 9:10 AM EDT Patient updated. Nerissa Campa LPN * Telephone Encounter - Will Ruiz MD - 05/15/2023 8:38 AM EDT Please call patient and let them know the fine-needle aspiration was negative they will need to getyearly thyroid ultrasounds only * Telephone Encounter - Nerissa Campa LPN - 05/04/2023 3:47 PM EDT Throid FNA results from [facility] Scan on 05/04/2023 9:40 AM by Provider, NI Hernandez: Miscellaneous Clinical Documents Nerissa Campa LPN documented in this encounterSumma Health [facility]09-18-2023 History of Present illness Narrative* Will Ruiz MD - 05/07/2023 2:54 PM EDT Subjective: Fine-needle aspiration on the right side came back benign pathology reports that it wasadequate for evaluation. Patient feels slight hard nodule in the right side. Objective:Blood pressure 128/72, pulse 107, temperature 36.2 C (97.2 F), SpO2 97 %. Firmness on the right side is noted I think I must have a hematoma there. There is no signs of cellulitis or infection. Assessment multinodular goiter Plan she will need to have yearly thyroid ultrasounds if the nodules grow by more than 20% or new nodules develop that are larger than a centimeter we will have to repeat fine-needle aspirations documented in this encounterSumma Health [facility] Campus09-11-2023 Instructions* Patient Instructions* Nerissa Campa LPN - 04/30/2023 2:48 PM EDT The following instructions are important for you related to your office visit today with the [facility] General Surgeons. Instructions After THYROID FINE NEEDLE ASPIRATION Please do not take aspirin or other blood thinners for the next few days. If you have bleeding from the needle site, hold pressure with a clean gauze. If the bleeding continues, contact our office immediately. I recommend taking Advil or Tylenol for the discomfort. An ice pack may improve your discomfort to the area. Contact our office immediately if you have any questions or concerns @ [phone]. Please make an appointment to follow up in one week with your physician and thank you for choosing the [facility]. If you note any additional difficulties, questions, or concerns, you should contact our office immediately @ [phone] and ask to be transferred to the General Surgery department. documented in this encounterSumma Health [facility] Campus09-11-2023 History of Present illness Narrative* Will Ruiz MD - 04/30/2023 2:45 PM EDT Preoperative diagnosis: Multinodular goiter with dominant right thyroid nodule Postoperative diagnosis: The same Procedure: Ultrasound-guided fine-needle aspiration of dominant right thyroid nodule Surgeon: Joseph Procedure: Ultrasound of the right thyroid gland showed a 1.9 cm mid nodule. The skin was prepped with alcohol. 1% lidocaine plain was injected. Under ultrasound guidance 3 passes with a 22-gauge needle were performed. These were plated on glass slides. Sterile dressings were applied. The patient tolerated the procedure well. Under left thyroid she also had nodules but we had previously done fine-needle aspirations and theywere benign and the nodules themselves had not grown. Therefore no repeat fine-needle aspirations were performed on the left side. * Nerissa Campa LPN - 04/30/2023 2:25 PM EDT UNIVERSAL PROTOCOL / SAFETY CHECKLIST Procedure to be Performed: Ultrasound Guided Fine Needle Aspiration Thyroid right Sign In: A Moment of CARE was completed. Personnel directly involved with the procedure wore the appropriate PPE (Personal Protective Equipment). No special equipment needed. Patient/Surrogate Stated/Verified: PATIENT VERIFIED(optional for EMERGENT procedures): Patient name, Date of , Relevant allergies, and The intended procedure Time Out Communication: Intended patient and procedure match the source documents. Consent documented and matches the intended procedure. Relevant labs, photos, and/or imaging studies have been reviewed. Correct side/site marked and visible. Medications required for procedure verified. No fire risk assessment and interventions applicable. No implant(s) inserted. Sign Out: SIGN OUT (optional for EMERGENT procedures): All specimen containers correctly labeled. No instruments, equipment or retained foreign bodies applicable. Nerissa Campa LPN documented in this encounterSumma Health [facility]08-31-2023 History of Present illness Narrative* Marko Wood MD - 04/19/2023 12:22 PM EDT [facility] - FOLLOW UP EVALUATION Miah Cottrell DO [address] [facility] [id number] Dear Miah Cottrell DO: I had the pleasure of seeing Ms. Quiroz for follow-up today. As you know she is a 73 year old right-handed female with a history of tremor since age 12 . She is seen alone. Subjective Previous Plan-05/02/2022 Visit: Continue primidone 250 mg daily - Interval History: Hasn't been feeling good. Hasn't felt well since GB out. Spells of not feeling good, checked blood sugar recently and on low end. Just not eating like before. Not losing weight lately. Thyroid FNA coming up. Headaches are short, not new. Not unilateral. Quick shooting pain lasting 10-30 minutes. Can be constant ache. Has had these off and on since PMR and GCA diagnoses. Headaches are more often but not more severe. Not interested in [facility] for now. Tremors are wonderful. Had tremor when the sugar was low but otherwise none. Doesn't miss medication doses. Sleeps well. Balance is fine. No falls. Movement Disorders Medications Schedule - as of the start of the visit: Medications Bed metoprolol ER 50 mg daily primidone 250 mg 1 Other Movement Disorder Prior Therapies Propranolol, Primidone propranolol caused diarrhea but did help tremors Questionnaires: In addition, the following areas that may be affected by abnormal involuntary movements were evaluated: Daily activities Difficulties with eatin (none) Difficulties in dressin (none) Difficulties with hygiene activities: 0 (none) Difficulties with handwritin (none) Difficulties with doing hobbies and other activities: 0 (none) Difficulties turning in bed: 0 (none) Difficulties getting out of bed, car or chair: 0 (none) Tremors/Gait/Balance Shaking or tremors: Walking and balance problems: 0 (none) Number of falls in the Last Month: 0 Gait freezin (none) Autonomic/Pain Lightheadeness on standing: Urinary problems: Yes (slight) Constipation problems: 0 (none) Pain and other sensations: Yes (slight) Speech/Swallowing Speech problems: 0 (none) Droolin (none) Chewing and swallowing problems: 0 (none) Sleep/Fatigue Sleep problems: Yes (mild) Daytime sleepiness: Yes (slight) Fatigue: Yes (mild) Mood/Behavior Depression: PHQ-9 Score: 6 usually representing mild (5-9) depression. Anxiety: RICHARD-7 Total Score: 1 usually representing no significant (0-4) anxiety. Finally, the following table shows the patient's overall global physical and mental health using the PROMIS scale: PROMIS-10 Flowsheet Row Office Visit from 03/12/2023 in Family Medicine [place] Appointment from 12/08/2022 in Rheumatology Global Physical Health T Score 39.8 42.3 Global Mental Health T Score 45.8 43.5 0-10 Standard Pain Scale 2 3 *PROMIS-10 scoring scale: mean = 50, over 50 is above average, under 50 is below average In addition, the following Parkinson Lifestyle-associated features were evaluated: Conditions Prior to Dx: Depression: No Anxiety: No Melanoma: No Constipation: No Yelling: No Head Trauma: No Habits/exposures Prior to Dx Smoking: Yes (and still do) Caffeinated coffee (1-cup+): Yes (and still do) Caffeinated soda/tea (2 cups+): Alcohol (1 bottle/shot/glass+): Exercise (3x/wk+): Ibuprofen use (1x/wk+): 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 metoprolol succinate ER (TOPROL XL) 50 mg 24 hr tablet Take 1 tablet by mouth once daily. calcium carbonate (CALTRATE) 600 mg calcium (1,500 mg) tab Take 1 tablet by mouth every morning. travoprost (TRAVATAN Z) 0.004 % ophthalmic drops 1 Drop. loperamide (IMODIUM) 2 mg cap(s) Take 2 mg by mouth four times daily as needed. CHOLESTYRAMINE, BULK, MISC 1 Scoop once daily. cholecalciferol, vitamin D3, (VITAMIN D3 ORAL) Take by mouth once daily. primidone (MYSOLINE) 250 mg tablet Take 1 tablet by mouth daily at bedtime. No current facility-administered medications for this visit. Objective Vital Signs: BP 129/76 (BP Site: Left Arm, BP Position: Sitting, BP Cuff Size: Regular Adult) Pulse 77 Ht 166.4 cm (5' 5.5) Wt 66.9 kg (147 lb 6.4 oz) SpO2 98% BMI 24.16 kg/m Orthostatic Vitals: None for this encounter Weight: 66.9 kg (147 lb 6.4 oz) Height: 166.4 cm (5' 5.5) No LMP recorded. Patient has had a hysterectomy. Body mass index is 24.16 kg/m . General Physical Examination: General: Awake, alert, interactive, no acute distress, good nutritional status, normal development,well-kept General Neurological Examination: Neurological Exam Mental Status Awake and alert. Speech is normal. Language is fluent with no aphasia. Fund of knowledge is appropriate for level of education. Motor Bilateral upper extremity action tremors are subtle. No rigidity or bradykinesia . Gait Stable gait. Assessment and Plan: Assessment Ms. Quiroz is a right-handed 73 year old year old female with essential tremor. She is currently happy with her current tremor control. No change to medications. Also with chronic headaches that are more frequent lately. Given her complicated medical history offered [facility] referral which she declines for now. The following are the current problems noted and addressed during this visit: Essential tremor Plan 04/19/2023 Visit: Continue your medications as you have been taking them. We are not making any changes today. If youfeel you are not tolerating them or your symptoms are changing before your next appointment, pleasefeel free to send me a [employer] message or contact the office - Updated Movement Disorders Medication Schedule: Medications Bed metoprolol ER 50 mg daily primidone 250 mg 1 Return at or around: 04/19/24 Medical Decision Making: Problems: Low: Stable chronic illness Risk: Moderate: Drug management Medical Decision Making Level: 3 - Low Thank you for allowing me to be part of the clinical care of this patient! I look forward to continued participation in the patient s care with you. Please do not hesitate to call with any questions. Sincerely, Marko Wood MD documented in this encounterSumma Health [facility]08-31-2023 Instructions* Patient Instructions* Marko Wood MD - 04/19/2023 11:29 AM EDT It was a pleasure to see you today. We addressed the following diagnoses: Essential tremor My recommendations are as follows: Continue your medications as you have been taking them. We are not making any changes today. If youfeel you are not tolerating them or your symptoms are changing before your next appointment, pleasefeel free to send me a [employer] message or contact the office - Your B12 was somewhat low end of normal. Try taking a B12 supplement - Movement Disorders Medication Schedule: Medications Bed metoprolol ER 50 mg daily primidone 250 mg 1 Return at or around: 04/19/24 If there are any concerns before your next visit, please call or you can send a message through [employer]. You can also now schedule and select appointments through [facility]. Marko Wood MD documented in this encounterSum[facility]-30-2023 Miscellaneous Notes* Telephone Encounter - Marina Oliveira RN - 04/18/2023 1:53 PM EDT Patient scheduled with Dr. Ruiz for 04/30/2023. Marina Oliveira RN * Telephone Encounter - Will Ruiz MD - 04/18/2023 10:38 AM EDT Patient has a new nodule that will need to have a fine-needle aspiration please set her up with a consultation first. * Telephone Encounter - Ronna Quiroz APRN.CNP - 04/12/2023 2:23 PM EDT Consult placed. Please assist in scheduling. Thank you, Ronna Quiroz APRN.SHINGLE INSPECTOR * Telephone Encounter - Patricia Madsen RN - 04/12/2023 11:06 AM EDT Pt called and is notified of providers results and instructions. Pt voices understanding. Please put in order for general surgery consult. Once consult is placed place call Pt to set up appointment. Patricia Madsen RN * Telephone Encounter - Miah Cottrell DO - 04/12/2023 10:49 AM EDT I would still like her to see the General surgeon for evaluation please Also please inform patient that her carotid US is overall stable, still continues to show plaque and turbulent blood flow. Continue to follow a low cholesterol diet and recommend quitting smoking. Miah Cottrell DO * Telephone Encounter - Tomasa Morales Ma - 04/12/2023 10:27 AM EDT Spoke to patient who advised was seen 2 years ago and surgeon was very kind but advised not big enough to be concerned. Patient does not want to waste surgeon time/appointment space if not needed. Patient willing to be seen if warranted. Advised would route to Dr. Ruiz to see if 03/12 and 01/04/2021 could be reviewed for opinion if consult needed? Tomasa Morales Ma * Telephone Encounter - Miah Cottrell DO - 04/12/2023 9:09 AM EDT Please inform patient that her recent thyroid US is showing that she has a couple of thyroid nodules present that are >1 cm in size. I would like her to have opinion by General surgeon Dr. Ruizor Dr. Martínez to determine if a biopsy is needed Miah Cottrell DO documented in this encounterSum[facility]08-10-2023 Miscellaneous Notes* Telephone Encounter - Cathy Maravilla LPN - 03/29/2023 8:57 AM EDT Maggie--03/12/23 Nov--06/15/23 Last refill--just reported taking no refill dates Last labs--03/12/23 * Telephone Encounter - Cesia Teixeira - 03/29/2023 8:04 AM EDT Patient has been identified by name and date of : Yes Last office visit in this department: 03/12/2023 RX INSTRUCTIONS: Patient aware RX will be sent to pharmacy. No need to notify patient. Patient phones requesting refills as follows: Requested Prescriptions Pending Prescriptions Disp Refills metoprolol succinate ER (TOPROL XL) 50 mg 24 hr tablet Sig: Take 1 tablet by mouth. Please review and advise. Cesia Teixeira documented in this encounterSumma [facility]07-27-2023 Miscellaneous Notes* Telephone Encounter - Cathy Maravilla LPN - 03/15/2023 9:07 AM EDT Spoke with pt gave information provided. Pt voices understanding. * Telephone Encounter - Miah Cottrell DO - 03/14/2023 9:02 PM EDT Please inform patient that her labs show that her CRP inflammation marker is up a little at 1.1 andher white blood cell count is slightly high. Would recommend that she makes sure to discuss this with her Cable Technician Miah Cottrell DO documented in this encounterSumma [facility]07-24-2023 History of Present illness Narrative* Jovanna Carvalho RDMS - 03/12/2023 1:45 PM EDT Radiology Service Progress Note PATIENT NAME: Cecelia Quiroz DATE OF SERVICE: March 12, 2023 TIME: 2:06 PM PATIENT IDENTITY VERIFICATION COMPLETED USING TWO (2) IDENTIFIERS: Name and Date of confirmedby patient verbally. FALL SCREENING: Has the patient had 2 falls in the last year or 1 fall with injury or currently using an Ambulatory Assistive Device (Walker, Cane, Wheelchair, Crutches, etc.)? No PATIENT GENDER DATA: Female. status: : No status: NO. PATIENT RELEVANT IMPLANT DATA REVIEWED: Not Applicable RADIOLOGY DEPARTMENT: Ultrasound PERIPHERAL IV DATA: Not applicable SIGNED BY: Jovanna Carvalho RDMS RVT March 12, 2023 2:06 PM documented in this encounterSumma [facility]07-17-2023 Miscellaneous Notes* Telephone Encounter - Ana Rodriguez RN - 03/05/2023 10:25 AM EDT Left detailed message. Advised to call back with any questions or concerns. * Telephone Encounter - Ana Rodriguez RN - 03/05/2023 10:25 AM EDT ----- Message from Janie Massey PA-C sent at 03/02/2023 4:43 PM EDT ----- Please call and notify bone density is stable or improved in all sites. documented in this encounterSum[facility]07-14-2023 Miscellaneous Notes* Telephone Encounter - Eliana Hartman - 03/02/2023 12:04 PM EDT Pt had a bone density test this past Sunday and hasn't heard anything yet. She is requesting a callback with some information on the results. documented in this encounterSumma [facility]07-10-2023 History of Present illness Narrative* Filipe Mcneill RT(R) - 02/26/2023 1:00 PM EDT Radiology Service Progress Note PATIENT NAME: Cecelia Quiroz DATE OF SERVICE: February 26, 2023 TIME: 12:55 PM PATIENT IDENTITY VERIFICATION COMPLETED USING TWO (2) IDENTIFIERS: Name and Date of confirmedby patient verbally. FALL SCREENING: Has the patient had 2 falls in the last year or 1 fall with injury or currently using an Ambulatory Assistive Device (Walker, Cane, Wheelchair, Crutches, etc.)? No PATIENT GENDER DATA: Female. status: : No status: NO. PATIENT RELEVANT IMPLANT DATA REVIEWED: Not Applicable RADIOLOGY DEPARTMENT: Bone Density PERIPHERAL IV DATA: Not applicable SIGNED BY: RT Bridger(R) February 26, 2023 12:55 PM documented in this encounterSumma [facility]06-21-2023 Miscellaneous Notes* Telephone Encounter - Janie Massey PA-C - 02/07/2023 12:41 PM EDT The following approved medication requests have been transmitted electronically. Requested Prescriptions Signed Prescriptions Disp Refills predniSONE (DELTASONE) 10 mg tablet 118 tablet 0 Sig: Take 3.5 tablets by mouth once daily for 7 days, THEN 3 tablets once daily for 7 days, THEN 2.5 tablets once daily for 7 days, THEN 2 tablets once daily for 7 days, THEN 1.5 tablets once daily for 7 days, THEN 1 tablet once daily. Take in the morning with food.. Janie Massey PA-C * Telephone Encounter - Prema Miguel MA - 02/07/2023 10:41 AM EDT Patient has been identified by name and date of : Yes RX INSTRUCTIONS: Patient aware RX will be sent to pharmacy. No need to notify patient. LAST APPOINTMENT: 07/24/2022 UPCOMING APPOINTMENT: 02/13/2023 LABS: Hemoglobin (g/dL) Date Value 01/19/2023 12.3 09/09/2021 12.2 Hematocrit (%) Date Value 01/19/2023 38.0 09/09/2021 38.2 WBC (k/uL) Date Value 01/19/2023 10.64 09/09/2021 14.19 Platelet Count (k/uL) Date Value 01/19/2023 295 09/09/2021 304 AST Date Value Ref Range Status 01/19/2023 31 13 - 35 U/L Final ALT Date Value Ref Range Status 01/19/2023 29 7 - 38 U/L Final Creatinine Date Value Ref Range Status 01/19/2023 0.72 0.58 - 0.96 mg/dL Final No results found for: URICACID Prema Miguel MA documented in this encounterSum[facility]06-19-2023 Miscellaneous Notes* Telephone Encounter - Eliana Hartman - 02/05/2023 3:36 PM EDT Sent mcm cancelling appt on 08/03/23 documented in this encounterSumma Health [facility]06-02-2023 Instructions* Patient Instructions* Janie Massey PA-C - 01/19/2023 3:11 PM EDT BONE MINERAL DENSITY PATIENT INSTRUCTIONS Bone mineral density testing measures the amount of calcium in certain parts of your bones. This information determines how strong your bones are. The test is used to detect osteoporosis, a disease in which the bone's mineral content and density are low, increasing a person's risk of fractures. Thelumbar spine (lower back) and the hip are [...] you can resume your usual activities immediately. documented in this encounterSumma [facility]06-02-2023 History of Present illness Narrative* Janie Massey PA-C - 01/19/2023 3:07 PM EDT Images from the original note were not included. Rheumatology FOLLOW UP VISIT Referring Provider: Magdalene Bradford Date of Service: 01/19/2023 Gender: female Ethnicity: White Age: [age] year old Chief Complaint: New Patient (Prolia Injection. Would like to possibly transfer care. ) Last Rheumatology visit: 07/24/2022 (with Magdalene Bradford) Cecelia Quiroz is a 72 year old White female who presents on 01/19/2023 for in person visit for evaluation of New Patient (Prolia Injection. Wouldlike to possibly transfer care. ). She is currently taking prednisone. INTERVAL HISTORY She denies Shoulder pain currently, but does still get it comes and goes, especially in her hips. IT causes morning stiffness.hands also feel more achy and swollen than before. Admits occasional pain in the temples and neck spasms. She never got off prednisone in the past, always got worse around 8 mg daily and then started to flare up. She stopped taking calcium - admits cheese occasionally in the diet. She is not taking Vitamin D any more either. She ran out and never got any more. Denies recent falls or fractures. Occasional jaw pain, relates to her dentures. Top dentures. No planned dental extractions or current jaw/tooth pain. Patient-Entered Data RAPID 3 Good Activities of Daily Living 12/04/2022 7:49 AM 07/20/2022 10:57 AM 03/16/2022 7:57 PM Firstanswer obtained - 04/28/2020 1:25 PM Dress self? Without ANY difficulty Without ANY difficulty Without ANY difficulty Without ANY difficulty Get in and out of bed? Without ANY difficulty Without ANY difficulty Without ANY difficulty WithoutANY difficulty Walk outdoors? Without ANY difficulty With SOME difficulty Without ANY difficulty With SOME difficulty Wash and dry body? Without ANY difficulty Without ANY difficulty Without ANY difficulty Without ANYdifficulty Get in and out of car? With SOME difficulty Without ANY difficulty Without ANY difficulty Without ANY difficulty RAPID 3 Disease Activity Weighed Score Levels: 0 - 1: Near Remission 1.3 - 2.0: Low Severity 2.3 - 4.0: Moderate Severity 4.3 - 10.0: High Severity RAPID-3 Weighed Score 03/16/2022 07/20/2022 12/04/2022 RAPID 3 Weighed Score - - - RAPID 3 Weighed Score Incomplete Incomplete Incomplete PROMIS Assessments PROMIS Global Health - (T-Scores - the mean of general population = 50. Five points is a clinicallymeaningful difference.) 03/16/2022 07/03/2022 12/04/2022 Physical T-Score 44.9 44.9 42.3 Mental T-Score 48.3 43.5 43.5 PROMIS CAT Pain Interference 03/16/2022 07/20/2022 12/04/2022 PROMIS Pain Interference T-Score (range: 10 - 90) 56 (mild) 56 (mild) 62 (moderate) PROMIS Pain Interference Percentile 27 % 27 % 12 % PROMIS CAT Fatigue 03/16/2022 07/20/2022 12/04/2022 PROMIS Fatigue T-Score 64 (moderate) 55 (within normal limits) 64 (moderate) PROMIS Fatigue Percentile 8 % 31 % 8 % PROMIS PHYSICAL FUNCTION T-SCORE 03/16/2022 07/20/2022 12/04/2022 PROMIS Physical Function T-Score 43 (mild dysfunction) 45 (within normal limits) 43 (mild dysfunction) Physical Function Percentile 24 % 31 % 24 % Impression Diagnoses: (M35.3) PMR (polymyalgia rheumatica) (HCC) (primary encounter diagnosis) (M31.5) 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 PMR/GCA: Steroid-responsive shoulder/hip pain and CT neck with findings suspicious for vasculitis with negative TA biopsies x2. Has tried: HCQ, MTX PO/SC and actemra without improvement. Off methotrexate. Overall joint pain is relatively stable, intermittent, with hand involvement. Anabaptism pain comes and goes but doesn't seem to be active today Offered hydroxychloroquine as this may help her hand stiffness but she declines. - Will likely need to continue prednisone 10mg/day indefinitely (flares on doses <9mg/day) - Tylenol prn 2. Osteoporosis: In , had traumatic R ankle fracture after a fall at work. From -, on actonel. From January-May (with a break and resumption of medication in December), on fosamax. January DEXA with osteoporosis. January DEXA with osteopenia but decline in BMD in one area. In May, fosamax switched to prolia. In Apr, had a L humeral fracture so advised to start forteo. In January, started forteo, completed in February. February DEXA with decline. January DXA stable - restarted Prolia 07/24/2022. Tolerates without side effects - Off Vitamin D and Calcium - stresssed need for this ROXANNE, advised we delay Prolia due to need to check Vit D/Calcium levels. Patient prefers to take risk of hypocalcemia including muscel cramps, bone pain and cardiac arrhythmias and will check labs today. - Discussed need for calcium citrate 600 mg twice daily - Encouraged to take Vitmian D 4000 international unit(s) for the next week then 2000 internationalunit(s) daily thereafter -Due for repeat BMD yearly - new order placed - Prolia 60mg injected today in L arm 3. PUD: With bleeding gastric ulcer per Jul EGD related to NSAID use - Avoid NSAIDs PO and PO bisphosphonate 4. Tobacco use: - Advised to stop 5. DDD: - Tylenol prn, avoid NSAIDs PO 6. General health maintenance: - Completed the covid vaccination series in November, [employer]. - Advised to continue follow-up with PCP for routine health maintenance and malignancy screening Plan As above No follow-ups on file. I spent a total of 32 minutes on the date of the service which included preparing to see the patient, [id number] patient care, completing clinical documentation, obtaining and/or reviewing separately obtained history, performing a medically appropriate examination, counseling and educating the pat ient/family/caregiver, and ordering medications, tests, or procedures. Janie Massey PA-C cc: PCP: Miah Cottrell [address] [place] [address] Subjective INTERVAL HISTORY She denies Shoulder pain currently, but does still get it comes and goes, especially in her hips. IT causes morning stiffness.hands also feel more achy and swollen than before. Admits occasional pain in the temples and neck spasms. She never got off prednisone in the past, always got worse around 8 mg daily and then started to flare up. She stopped taking calcium - admits cheese occasionally in the diet. She is not taking Vitamin D any more either. She ran out and never got any more. Denies recent falls or fractures. Occasional jaw pain, relates to her dentures. Top dentures. No planned dental extractions or current jaw/tooth pain. Disease History PAIN EVALUATION No data found in the last 1 encounters. Objective Treatment History Relevant Previous Investigations CBC Latest Ref Rng & Units 2021 09/09/2021 04/27/2022 07/24/2022 WBC 3.70 - 11.00 k/uL 9.64 14.19(H) 14.92(H) 12.88(H) HEMOGLOBIN 11.5 - 15.5 g/dL 13.1 12.2 13.0 12.3 HEMOGLOBIN, AMBROSE 11.5 - 15.5 g/dL - - - - HEMATOCRIT 36.0 - 46.0 % 39.2 38.2 41.6 38.4 PLATELETS 150 - 400 k/uL 299 304 374 331 ABS NEUT (ANC) 1.45 - 7.50 k/uL 7.38 11.62(H) 12.00(H) 10.15(H) ABS NEUT, AMBROSE 1.45 - 7.50 k/uL - - - - ABS LYMP, AMBROSE 1.00 - 4.00 k/uL - - - - ABS LYMPH 1.00 - 4.00 k/uL 1.78 1.75 2.05 2.22 CMP Latest Ref Rng & Units 12/16/2021 03/20/2022 04/27/2022 07/24/2022 SODIUM 136 - 144 mmol/L - - - - SODIUM, AMBROSE 132 - 148 mmol/L - - - - SODIUM, AMBROSE 132 - 148 mmol/L - - - - POTASSIUM 3.7 - 5.1 mmol/L - - - - POTASSIUM, AMBROSE 3.5 - 5.0 mmol/L - - - - CHLORIDE 97 - 105 mmol/L - - - - CHLORIDE, AMBROSE 98 - 110 mmol/L - - - - CO2 22 - 30 mmol/L - - - - CO2, AMBROSE 23.0 - 32.0 mmol/L - - - - GLUCOSE 74 - 99 mg/dL - - - - GLUCOSE, AMBROSE 65 - 100 mg/dL - - - - BUN 7 - 21 mg/dL - - - - BUN, AMBROSE 10 - 25 mg/dL - - - - CREATININE 0.58 - 0.96 mg/dL 0.81 0.75 0.74 0.76 CREATININE (POCT) 0.6 - 1.5 mg/dL - - - - CREATININE, AMBROSE 0.7 - 1.4 mg/dL - - - - CALCIUM, AMBROSE 8.5 - 10.5 mg/dL - - - - CALCIUM, TOTAL 8.5 - 10.2 mg/dL 9.3 9.6 - 9.2 AST 13 - 35 U/L - - 19 18 AST, AMBROSE 7 - 40 U/L - - - - ALT 7 - 38 U/L - - 12 8 ALT, AMBROSE 0 - 45 U/L - - - - ALKALINE PHOSPHATASE 34 - 123 U/L - - - - ESR, WSR Latest Ref Rng & Units 09/09/2021 12/16/2021 03/20/2022 04/27/2022 WSR 0 - 20 mm/hr 47(H) 43(H) 90(H) 72(H) SED RATE, AMBROSE 0 - 20 mm/hr - - - - CRP Latest Ref Rng & Units 09/09/2021 12/16/2021 03/20/2022 04/27/2022 CRP <0.9 mg/dL 1.1(H) 0.8 6.8(H) 3.5(H) CK Latest Ref Rng & Units 12/14/2016 CK 42 - 196 U/L 103 Hepatitis Screen Latest Ref Rng & Units 09/25/2016 04/27/2022 HEPBCOTOL Negative Negative Negative HEPSABQ Negative Negative Negative HEPCABEIA Negative Negative Negative HBSAG Negative - Negative HBSAGR Negative Negative - TB Screen 09/25/2016 04/27/2022 05/08/2022 TBGINT No evidence of current or previous infection with Mycobacterium tuberculosis. This result isindeterminate for Mycobacterium tuberculosis complex antigen responsiveness. Specimens from immunocompromised patients, those <5 years of age, and those with a known recent exposure may fall underthis category. Please correlate with clinical picture and other alternative assessments. Infection with M. tuberculosis complex is unlikely. If latent tuberculosis infection is highly suspected, a negative result does not rule out the infection. Specimens from immunocompromised patients and those <5 years of age may show false negative results. In case of a contact investigation, please repeat8-12 weeks after a known exposure. TBGRES Negative Indeterminate Negative Antibodies Latest Ref Rng & Units 11/28/2011 PT SEC 8.4 - 13.0 sec 10.1 PT INR 0.8 - 1.2 0.9 Urinalysis Latest Ref Rng & Units 06/10/2009 PROTEIN, URINE Neg mg/dL 4 + Imaging / Studies Last XR Hand/Finger - Impression Only No resulted procedures found. Last MRI Hand - Impression Only No resulted procedures found. Last XR Chest - Impression Only XR CHEST 2V FRONTAL/LAT Exam End: 05/22/2022 4:28 PM (Final result) Impression: IMPRESSION: No acute radiographic abnormality. ... Last XR Cervical Spine - Impression Only XR CERV OTHER 4V AP/LAT/OBL Exam End: 12/16/2021 11:27 AM (Final result) Impression: IMPRESSION: 1. Moderate diffuse cervical spondylosis with interval progression. Agency Legal Counsel: NAYELY Transcribe Date/Time: Dec 16 2021 1:18P Dictated by : ANNIKA MONTALVO MD... Review of Systems ROS RHEUMATOLOGYAll other reviewed and negative other than HPI. 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 Actinic Keratosis Undiagnosed Cardiac Murmurs Cervical Myofascial Strain Neck Pain Tremor Arm Paresthesia, Left Weakness of Left Arm Osteoarthritis of Spine With Radiculopathy, Cervical Region Ddd (Degenerative Disc Disease), Cervical Diarrhea Due to Malabsorption Dysphagia Hyperlipidemia, Mixed Essential Hypertension Palpitations Abnormal Mammogram Chest Pain At Rest Cholelithiasis Cyst of Bartholin's Gland Duct Fracture of Humerus Gastroesophageal Reflux Disease History of Appendectomy History of Arthroplasty of Left Shoulder History of Fracture History of Hysterectomy History of Malignant Neoplasm of Uterine Body History of Visual Disturbance Osteoarthritis Traumatic Arthropathy of Ankle Headache Temporal Arteritis (Hcc) Past Medical History PAST MEDICAL HISTORY Diagnosis Date Autoimmune disease (HCC) Cancer (HCC) 1982 Uterine Depression Disorder of bone and cartilage, unspecified Diverticulitis of colon (without mention of hemorrhage)(562.11) 2003 Essential hypertension 12/28/2021 GCA (giant cell arteritis) (HCC) bx negative Glaucoma Hematuria 1999 had workup including cystoscopy, etc. - entire workup negative. No longer happening. IBS (irritable bowel syndrome) Iron deficiency anemia, unspecified ? related to UGI source from NSAID's PMR (polymyalgia rheumatica) (HCC) Raynaud's disease /phenomenon Steroid long-term use Tobacco use disorder Past Surgical History PAST SURGICAL HISTORY Procedure Laterality Date ABDOMINAL SURGERY HX APPENDECTOMY 1982 incidental APPENDECTOMY HX BREAST SURGERY HX CATARACT EXTRACTION HX bilateral CHOLECYSTECTOMY Cholecystectomy COLONOSCOPY 2012 COLONOSCOPY FLX DX W/COLLJ SPEC WHEN PFRMD 05/09/2021 ESOPHAGOGASTRODUODENOSCOPY TRANSORAL DIAGNOSTIC 07/05/2015 EGD ESOPHAGOGASTRODUODENOSCOPY TRANSORAL DIAGNOSTIC 05/09/2021 EYE SURGERY HX FRACTURE SURGERY LEFT HEART CATH,PERCUTANEOUS 2011 Cardiac cath, L heart. Normal PAST SURGICAL HISTORY OF 1987 ulnar ner transferred PAST SURGICAL HISTORY OF 1990 bartholin cyst on vagina PAST SURGICAL HISTORY OF 2005 bone spur to left shoulder PAST SURGICAL HISTORY OF 2007 left knee -- torn meniscus ([place]) PAST SURGICAL HISTORY OF 2011 ORIF R ankle PAST SURGICAL HISTORY OF 2000 Bartholin cyst excised TOTAL ABDOMINAL HYSTERECT W/WO RMVL TUBE OVARY 1982 cervical cancer, still has ovaries VAGINAL HYSTERECTOMY Family History FAMILY HISTORY Problem Relation Age of Onset Diabetes Father late in life Coronary Artery Disease Father Hx of [place], age 71 Tremor Mother Hypertension Mother Cancer Brother Cancer Brother lymphoma - 55; h/o kidney transplant Cancer Brother Mestatic Aneurysm Sister brain Lung Cancer Sister dies at 52 Bipolar disorder Son Tremor Son Colon Cancer Niece Tremor Niece Hyperlipidemia No Family History Blood Clots No Family History Blood Disease No Family History Factor 5 Leiden No Family History DVT No Family History Stroke No Family History Schizophrenia No Family History Systemic Lupus Erythematosus No Family History Multiple Sclerosis No Family History Alzheimer's Disease No Family History Parkinson s Disease No Family History Social History Social History Tobacco Use Smoking status: Every Day Packs/day: 1.00 Years: 35.00 Pack years: 35.00 Types: Cigarettes Smokeless tobacco: Never Substance Use Topics Alcohol use: No Drug use: No Medications Current Outpatient Medications Medication Sig METOPROLOL SUCCINATE ORAL Take 50 mg by mouth. travoprost (TRAVATAN Z) 0.004 % ophthalmic drops 1 Drop. predniSONE (DELTASONE) 10 mg tablet Take 1 tablet by mouth once daily. Take in the morning with food. primidone (MYSOLINE) 250 mg tablet Take 1 tablet by mouth daily at bedtime. amLODIPine (NORVASC) 5 mg tablet Take 1 tablet by mouth once daily. loperamide (IMODIUM) 2 mg cap(s) Take 2 mg by mouth four times daily as needed. CHOLESTYRAMINE, BULK, MISC 1 Scoop once daily. HYDROCODONE BITARTRATE ORAL Take by mouth. (Patient not taking: Reported on 01/19/2023) aspirin, enteric coated (ASPIRIN, ENTERIC COATED) 81 mg EC tablet Take 1 tablet by mouth every morning. (Patient not taking: Reported on 01/19/2023) calcium carbonate (CALTRATE) 600 mg calcium (1,500 mg) tab Take 1 tablet by mouth every morning. (Patient not taking: Reported on 01/19/2023) PREVALITE 4 gram powder MIX ONE SCOOPFUL INTO A BEVERAGE AND DRINK UP TO 2 TIMES DAILY. (Patient not taking: Reported on 01/19/2023) ondansetron orally disintegrating (ZOFRAN ODT) 4 mg disintegrating tablet Take 4 mg by mouth. (Patient not taking: Reported on 01/19/2023) cholecalciferol, vitamin D3, (VITAMIN D3 ORAL) Take by mouth once daily. (Patient not taking: Reported on 01/19/2023) Current Facility-Administered Medications Medication Dose Route Frequency perflutren lipid microspheres 1.3 mL in NaCl (PF) 0.9% 10 mL injection (DEFINITY) INTRAVENOUS DIRECTED PRN sodium chloride 0.9 % (flush) 10 mL (BD POSIFLUSH) 10 mL INTRAVENOUS DIRECTED PRN Physical Exam BP 127/57 Temp (Src) 98.6 (Temporal) Resp 16 Ht 5' 5.5 (1.66m) Wt 143 lb (64.9kg) SpO2 97% BMI 23.43 kg/(m^2). Physical Exam Constitutional: General: She is not in acute distress. Appearance: Normal appearance. She is not toxic-appearing. HENT: Head: Normocephalic and atraumatic. Comments: No TA artery swelling Eyes: General: No scleral icterus. Conjunctiva/sclera: Conjunctivae normal. Cardiovascular: Rate and Rhythm: Normal rate and regular rhythm. Pulses: Normal pulses. Heart sounds: Normal heart sounds. Pulmonary: Effort: Pulmonary effort is normal. Breath sounds: Normal breath sounds. No stridor. Comments: Decreased breath sounds Musculoskeletal: Cervical back: Normal range of motion and neck supple. No tenderness. Right lower leg: No edema. Left lower leg: No edema. Comments: No swelling, synovitis, or TTP in hands, wrists, or elbows. Good ROM bilateral shouldres Lymphadenopathy: Cervical: No cervical adenopathy. Skin: General: Skin is warm and dry. Findings: No rash. Neurological: General: No focal deficit present. Mental Status: She is alert. Mental status is at baseline. Psychiatric: Mood and Affect: Mood normal. Behavior: Behavior normal. Thought Content: Thought content normal. Judgment: Judgment normal. There is currently no information documented on the homunculus. Go to the Rheumatology activity andcomplete the homunculus joint exam. Joint Exam 01/19/2023 No joint exam has been documented for this visit Joint Exam Data (across time) documented in this encounterSumma [facility]05-04-2023 Miscellaneous Notes* Telephone Encounter - Cathy Maravilla LPN - 12/21/2022 10:47 AM EDT Maggie--07/07/22 Nov--03/12/23 Last refill--12/27/21 90 with 3 Last labs--07/24/22 * Telephone Encounter - Eliana Thomas Pss - 12/21/2022 10:30 AM EDT Patient has been identified by name and date of : Yes Requested Prescriptions Pending Prescriptions Disp Refills metoprolol succinate ER (TOPROL XL) 50 mg 24 hr tablet 90 tablet 3 Sig: Take 1 tablet by mouth once daily. RX INSTRUCTIONS: Patient aware RX will be sent to pharmacy. No need to notify patient. Eliana Thomas Pss documented in this encounterSumma Health [facility]05-04-2023 Miscellaneous Notes* Telephone Encounter - Palma Lovett APRN.CNP - 12/21/2022 9:12 AM EDT The following approved medication requests have been transmitted electronically. Requested Prescriptions Signed Prescriptions Disp Refills predniSONE (DELTASONE) 10 mg tablet 90 tablet 0 Sig: Take 1 tablet by mouth once daily. Take in the morning with food. Authorizing Provider: PALMA LOVETT APRN.CNP * Telephone Encounter - Zara Cheema MA - 12/21/2022 8:25 AM EDT Spoke with patient. Patient is currently taking 10mg/day of prednisone. LAST APPOINTMENT: 07/24/2022 UPCOMING APPOINTMENT: 01/19/2023 LABS: Hemoglobin (g/dL) Date Value 07/24/2022 12.3 09/09/2021 12.2 Hematocrit (%) Date Value 07/24/2022 38.4 09/09/2021 38.2 WBC (k/uL) Date Value 07/24/2022 12.88 09/09/2021 14.19 Platelet Count (k/uL) Date Value 07/24/2022 331 09/09/2021 304 AST Date Value Ref Range Status 07/24/2022 18 13 - 35 U/L Final ALT Date Value Ref Range Status 07/24/2022 8 7 - 38 U/L Final Zara Cheema MA * Telephone Encounter - Valentina Unger Pss - 12/21/2022 8:10 AM EDT Patient calling to say that she is completely out of the following: predniSONE (DELTASONE) 10 mg tablet Preferred pharmacy: [address], [place]. 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 N/A Reason for Outreach Care Gap or Scheduling/Wellness visits Payer: Payor: MEDICARE / Plan: MEDICARE A AND B / Product Type: Medicare / Care Gap Reviewed:: Annual Wellness visit Reminder: Reminder note to check Health Maintenance for items below Health Maintenance items due: LUNG CANCER SCREENING Never done COVID-19 VACCINE(4 - Booster for Pfizer series) due on 11/21/2021 ADVANCE DIRECTIVE DISCUSSION Never done DEPRESSION ASSESSMENT Never done Navigation Signature: Chelsea Bedoya MA November 21, 2022 8:41 AM documented in this encounterSumma Health [facility]03-16-2023 Miscellaneous Notes* Telephone Encounter - Colleen Cornelius - 11/02/2022 7:49 AM EDT Please see pt message regarding results US left breast completed yesterday. Colleen Cornelius documented in this encounterSumma Health [facility]03-15-2023 History of Present illness Narrative* Johanna Velázquez RDMS - 11/01/2022 11:00 AM EDT Radiology Service Progress Note PATIENT NAME: Cecelia Quiroz DATE OF SERVICE: November 01, 2022 TIME: 11:13 AM PATIENT IDENTITY VERIFICATION COMPLETED USING TWO (2) IDENTIFIERS: Name and Date of confirmedby patient verbally. FALL SCREENING: Has the patient had 2 falls in the last year or 1 fall with injury or currently using an Ambulatory Assistive Device (Walker, Cane, Wheelchair, Crutches, etc.)? No PATIENT GENDER DATA: Female. status: : No status: NO. PATIENT RELEVANT IMPLANT DATA REVIEWED: Not Applicable RADIOLOGY DEPARTMENT: Ultrasound PERIPHERAL IV DATA: Not applicable SIGNED BY: Johanna Velázquez RDMS November 01, 2022 11:13 AM documented in this encounterSumma Health [facility]03-15-2023 History of Present illness Narrative* Alivia Horton RT(R) - 11/01/2022 10:30 AM EDT Radiology Service Progress Note PATIENT NAME: Cecelia Quiroz DATE OF SERVICE: November 01, 2022 TIME: 10:04 AM PATIENT IDENTITY VERIFICATION COMPLETED USING TWO (2) IDENTIFIERS: Name and Date of confirmedby patient verbally. FALL SCREENING: Has the patient had 2 falls in the last year or 1 fall with injury or currently using an Ambulatory Assistive Device (Walker, Cane, Wheelchair, Crutches, etc.)? No PATIENT GENDER DATA: Female. status: : No status: NO. PATIENT RELEVANT IMPLANT DATA REVIEWED: Not Applicable RADIOLOGY DEPARTMENT: Mammography PERIPHERAL IV DATA: Not applicable SIGNED BY: RT Herb(R) November 01, 2022 10:04 AM documented in this encounterSumma Health [facility]02-13-2023 Miscellaneous Notes* Letter - Mammography Coordinator - 10/02/2022 11:46 AM EST October 03, 2022 PID: [id number] Cecelia Quiroz [address] [place] [address] Dear Ms. Quiroz, Your recent breast imaging exam on 10/02/2022 showed a possible finding that requires additional imaging studies for a complete evaluation. Most such findings are probably benign (not cancer). Your mammogram demonstrates that you have dense breast tissue, which could hide abnormalities. Dense breast tissue, in and of itself, is a relatively common condition. Therefore, this information is not provided to cause undue concern; rather, it is to raise your awareness and promote discussion with your health care provider regarding the presence of dense breast tissue in addition to other riskfactors. If you have a healthcare provider who ordered/prescribed your screening mammogram: Please call [phone] or EXT: [phone] to schedule an appointment for your additional imaging (if youhave not already done so). If you DO NOT have a healthcare provider (ie you did not have an order/prescription for your screening mammogram): Please call to schedule an appointment for your additional imaging (if you have not already done so). You must have an order/prescription from your physician when calling to schedule your appointment. If your order/prescription is not electronic, you must bring the hard copy with you on the day of your exam to avoid delays. Your imaging studies and reports are kept on file [facility] as part of your permanent medical record, and are available for your continuing care. Thank you for allowing us to help in meeting your health care needs. Sincerely, Dr. Solomon Interpreting Radiologist [facility] (Additional imaging) documented in this encounterSumma Health [facility] Campus12-05-2022 History of Present illness Narrative* Magdalene Bradford MD - 07/24/2022 1:07 PM EST On 07/24/2022, I had the pleasure of evaluating Cecelia Quiroz in a follow-up [facility] Rheumatology [facility] for GCA, PMR and osteoporosis. 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 With negative TA biopsies x2 - From Jun-Sep, on MTX which was stopped due to inefficacy - In October, started on acemtra which was stopped after 3 infusions - In Apr, fell off a trailer and broke L humerus - In Jul, seen by Dr. Gonzalez. On baseline prednisone 10mg/day. Given medrol dose pack for flarewith plans to return to prednisone 10mg/day thereafter. She was hesitant to reduce baseline pred 10mg/day further given previous attempts to taper led to flares of pain and headache - On 07/28/19, received prolia - In October, reported baseline pain in the R>L shoulders/arms. Not flaring. On pred 10mg/day - In January and Apr, reported stable PMR on pred 10mg/day - In Aug, reported taking pred 10mg/day. Taking forteo. No interim fracture. - In February, started on HCQ given active pain. pred 10mg/day continued - On 05/16/21, reported no improvement in L shoulder, neck and base of skull pain w/pred 20mg/day. Referred to spine and PT - In May reported taking pred 10mg/day. Continued to have significant pain awakening her at night, located in L side of the neck/base of skull. Prescribed a pred 40mg taper - In Aug, reported no change with increased pred dose. On pred 10mg/day at the time of the visit. Was off HCQ so advised to resume - In November, reported no chagne on HCQ. Remained on pred 10mg/day. Resumed forteo 3 months prior(was off x2 months prior to that as she had run out) - In February, reported feeling the same. On pred 10mg/day. Was to have stopped forteo in last but was still taking it. Forteo stopped, last dose in February. Was advised to resume prolia but was waiting for surgery clearance given ankle surgery. Off HCQ. - In Mar s/p R ankle surgery (hardware removal) - In Apr, prednisone course helped a lot. Started MTX SC - Today, reports MTX didn't help. Hurts worse and feels nausea/fatigue with it. On pred 10mg/day - Gets parietal TEJADA. No temporal TEJADA. No jaw pain or vision loss. Has had scalp tenderness but not now. - HCQ didn't help. - Takes calcium/vit D - Hx of PUD - Last plaquenil eye exam normal in Sep (off HCQ) PAST MEDICAL HISTORY Diagnosis Date Autoimmune disease (HCC) Cancer (HCC) 1982 Uterine Depression Disorder of bone and cartilage, unspecified Diverticulitis of colon (without mention of hemorrhage)(562.11) 2003 Essential hypertension 12/28/2021 GCA (giant cell arteritis) (HCC) bx negative Glaucoma Hematuria 1999 had workup including cystoscopy, etc. - entire workup negative. No longer happening. IBS (irritable bowel syndrome) Iron deficiency anemia, unspecified ? related to UGI source from NSAID's PMR (polymyalgia rheumatica) (HCC) Raynaud's disease /phenomenon Steroid long-term use Tobacco use disorder PAST SURGICAL HISTORY Procedure Laterality Date ABDOMINAL SURGERY HX APPENDECTOMY 1982 incidental APPENDECTOMY HX BREAST SURGERY HX CATARACT EXTRACTION HX bilateral CHOLECYSTECTOMY Cholecystectomy COLONOSCOPY 2012 COLONOSCOPY FLX DX W/COLLJ SPEC WHEN PFRMD 05/09/2021 ESOPHAGOGASTRODUODENOSCOPY TRANSORAL DIAGNOSTIC 07/05/2015 EGD ESOPHAGOGASTRODUODENOSCOPY TRANSORAL DIAGNOSTIC 05/09/2021 EYE SURGERY HX FRACTURE SURGERY LEFT HEART CATH,PERCUTANEOUS 2011 Cardiac cath, L heart. Normal PAST SURGICAL HISTORY OF 1987 ulnar ner transferred PAST SURGICAL HISTORY OF 1990 bartholin cyst on vagina PAST SURGICAL HISTORY OF 2005 bone spur to left shoulder PAST SURGICAL HISTORY OF 2007 left knee -- torn meniscus ([place]) PAST SURGICAL HISTORY OF 2011 ORIF R ankle PAST SURGICAL HISTORY OF 2000 Bartholin cyst excised TOTAL ABDOMINAL HYSTERECT W/WO RMVL TUBE OVARY 1982 cervical cancer, still has ovaries VAGINAL HYSTERECTOMY ALLERGIES No Known Allergies MEDICATIONS: Current Outpatient Medications Medication Sig predniSONE (DELTASONE) 10 mg tablet Take in the morning with food. Use 10 mg tabs to take 30 mg (3 tabs)/day x1 week, then taper by 5 mg every 1 week until you're at 20mg/day. Then use 5 mg tablets to taper by 2.5mg every 1 week until you're at 10mg/day. Please continue 10mg/day thereafter. predniSONE (DELTASONE) 5 mg tablet Take in the morning with food. Take 30 mg (3 tabs)/day x1 week, then taper by 5 mg every 1 week until you're at 20mg/day. Then use 5mg tablets to taper by 2.5mg every 1 week until you're at 10mg/day. Please continue 10mg/day thereafter. folic acid 1 mg tablet Take 1 tablet by mouth once daily. methotrexate sodium 25 mg/mL soln Inject subcutaneously. Inject 0.4 ml once per week x 1 week, theninject 0.5 ml once per week x 1 week, then inject 0.6 ml once per week thereafter. Insulin Syringe-Needle U-100 1 mL 31 gauge x 01/02 Use as directed to administer methotrexate. primidone (MYSOLINE) 250 mg tablet Take 1 tablet by mouth daily at bedtime. amLODIPine (NORVASC) 5 mg tablet Take 1 tablet by mouth once daily. metoprolol succinate ER (TOPROL XL) 50 mg 24 hr tablet Take 1 tablet by mouth once daily. calcium carb/magnesium oxid/D3 (CALCIUM MAGNESIUM + D ORAL) Take 1 tablet by mouth once daily. loperamide (IMODIUM) 2 mg cap(s) Take 2 mg by mouth four times daily as needed. CHOLESTYRAMINE, BULK, MISC 1 Scoop once daily. cholecalciferol, vitamin D3, (VITAMIN D3 ORAL) Take by mouth once daily. TRAVOPROST, BENZALKONIUM, (TRAVATAN OPHTHALMIC) Use in eyes. One drop daily at bedtime in both eyes. Current Facility-Administered Medications Medication Dose Route Frequency perflutren lipid microspheres 1.3 mL in NaCl (PF) 0.9% 10 mL injection (DEFINITY) INTRAVENOUS DIRECTED PRN sodium chloride 0.9 % (flush) 10 mL (BD POSIFLUSH) 10 mL INTRAVENOUS DIRECTED PRN FAMILY HISTORY Problem Relation Age of Onset Diabetes Father late in life Coronary Artery Disease Father Hx of [place], age 71 Tremor Mother Hypertension Mother Cancer Brother Cancer Brother lymphoma - 55; h/o kidney transplant Cancer Brother Mestatic Aneurysm Sister brain Lung Cancer Sister dies at 52 Bipolar disorder Son Tremor Son Colon Cancer Niece Tremor Niece Hyperlipidemia No Family History Blood Clots No Family History Blood Disease No Family History Factor 5 Leiden No Family History DVT No Family History Stroke No Family History Schizophrenia No Family History Systemic Lupus Erythematosus No Family History Multiple Sclerosis No Family History Alzheimer's Disease No Family History Parkinson s Disease No Family History SOCIAL HISTORY: Lives in [place]. Works. Family lives in [place] Tobacco use: 1 ppd Alcohol use: None REVIEW OF SYSTEMS: reviewed 06/02 systems, as above PHYSICAL EXAM: VITALS: Blood pressure 125/68, pulse 75, temperature 36.5 C (97.7 F), temperature source Temporal, height 166.4 cm (5' 5.5), weight 61.2 kg (135 lb). CONSTITUTIONAL: Well-appearing, in NAD. SKIN: No rash. No sclerodactyly, calcinosis, telangiectasias, digital ulcers, or skin thickening. EYES: No scleral icterus or conjunctivitis. HENT and Mouth: External ears normal. Nares normal. No tenderness to palpation of the temples bilaterally. RESPIRATORY: Normal breath sounds, clear to auscultation. CARDIOVASCULAR: Regular rate and rhythm, no murmurs or rubs EXTREMITIES/LYMPH: No edema bilaterally NEURO: Awake, alert and oriented, antalgic gait MUSCULOSKELETAL: JOINT APPEARANCE: No erythema or warmth of any upper or lower extremity joint. RANGE OF MOTION: Able to fully close fists and curl fingers bilaterally. SWOLLEN JOINTS/SYNOVITIS: No synovitis of any joint. TENDER JOINTS: None *October Widespread Pain Index: 12 (0-19) Symptoms Severity Scale: 4 (0-12) WPI>7 and SS Scale>5 OR WPI 3-6 and SS Scale >9 consistent with fibromyalgia LABORATORY: Component Latest Ref Rng & Units 03/20/2022 04/27/2022 Creatinine 0.58 - 0.96 mg/dL 0.75 0.74 eGFR >=60 mL/min/1.73m 85 86 Calcium 8.5 - 10.2 mg/dL 9.6 Vitamin D 25 Hydroxy 31.0 - 80.0 ng/mL 33.0 WSR 0 - 20 mm/hr 90 (H) 72 (H) CRP <0.9 mg/dL 6.8 (H) *Apr neg quant gold, hep b/c Component Latest Ref Rng & Units 11/21/2019 01/30/2020 04/30/2020 Creatinine 0.58 - 0.96 mg/dL 0.90 eGFR- >60 eGFR-All Other Races . >60 Calcium 8.5 - 10.2 mg/dL 9.4 PTH, Intact 15 - 65 pg/mL 36 Vitamin D 25 Hydroxy 31.0 - 80.0 ng/mL 36.6 WSR 0 - 20 mm/hr 54 (H) CRP <0.9 mg/dL 0.5 STUDIES: *May CXR- no acute changes *January DXA- IMPRESSION: THE LOWEST T-SCORE IS -2.1 IN THE RIGHT HIP 1) DIAGNOSIS (based on BMD alone): OSTEOPENIA . There has been no significant interval change Lumbar spine (L1-L4): 1.132 g/cm2 , T-score -0.4, Z-score 1.5 . Left Femoral Neck: 0.776 g/cm2 , T-score-1.9, Z-score0. . This is not significantly changed Left Total Hip: 0.787 g/cm2 , T-score-1.7, Z-score 0. . This is not significantly changed Right Femoral Neck: 0.781 g/cm2 , T-score -1.8, Z-score0.1 . This is not significantly changed Right Total Hip: 0.742 g/cm2 , T-score-2.1, Z-score -0.4 . This is not significantly changed *February DEXA- THE LOWEST T-SCORE IS -2.1 IN THE LEFT femoral neck. This has been a statistically significant decrease in the bone density since the previous study. Lumbar spine (L1-L4): 1.107 g/cm2, T-score -0.6, Z-score 1.3 . Left Femoral Neck: 0.740 g/cm2 , T-score-2.1, Z-score-0.3 . Previous BMD(g/cm2 ) 0.784 . The change is statistically significant. Left Total Hip: 0.756 g/cm2 , T-score-2., Z-score -0.4 . Right Femoral Neck: 0.773 g/cm2 , T-score -1.9, Z-score-0.1 . Right Total Hip: 0.75 g/cm2 , T-score-2., Z-score -0.4 1) DIAGNOSIS (based on BMD alone): OSTEOPENIA *January DEXA- Osteopenia of the bilateral hips LUMBAR SPINE: The bone mineral density from L1 through L4 is 1.129 grams per square centimeter which yields a T-score of -0.4. . LEFT HIP: The bone mineral density of the total region of the hip is 0.804 grams per square centimeter which yields a T-score of -1.6. . LEFT FEMORAL NECK: The bone mineral density of the femoral neck is 0.784 grams per square centimeter which yields a T-score of -1.8. . RIGHT HIP: The bone mineral density of the total region of the hip is 0.768 grams per square centimeter which yields a T-score of -1.9. . RIGHT FEMORAL NECK: The bone mineral density of the femoral neck is 0.777 grams per square centimeter which yields a T-score of -1.9. *January DEXA- IMPRESSION: Severe osteopenia in both femoral necks, significant decline in R femoral neck. LUMBAR SPINE: The bone mineral density from L1 through L4 is 0.885 grams per square centimeter which yields a T-score of -1.5. This is 3.9% mproved. LEFT HIP: The bone mineral density of [...] T-score of -2.4. This is 3.9% worse. IMPRESSION and PLAN: 1. PMR/GCA: Steroid-responsive shoulder/hip pain and CT neck with findings suspicious for vasculitis with negative TA biopsies x2. Has tried: HCQ, MTX PO/SC and actemra without improvement. Currentlywith worsened pain and nausea on MTX SC 0.6mL weekly - Stop MTX/FA - Continue prednisone 10mg/day (flares on doses <9mg/day) - Offered to resume HCQ; explained that worsening isn't sometimes noticed until being off med x6 months. She defers resuming HCQ - Tylenol prn 2. Osteoporosis: In , had traumatic R ankle fracture after a fall at work. From -, on actonel. From January-May (with a break and resumption of medication in December), on fosamax. January DEXA with osteoporosis. January DEXA with osteopenia but decline in BMD in one area. In May, fosamax switched to prolia. In Apr, had a L humeral fracture so advised to start forteo. In January, started forteo, completed in February. February DEXA with decline. January DXA stable - Advised resuming prolia ROXANNE in order to avoid loss of gains from forteo. CAM order placed. No PAneeded given medicare a/b - Check labs. Notify of results via [facility] - Continue calcium and vitamin D supplementation - Check DEXA in Jan (for intermediate card tender steroid use) 3. PUD: With bleeding gastric ulcer per Jul EGD related to NSAID use - Avoid NSAIDs PO 4. Tobacco use: - Encouraged smoking cessation in the past 5. DDD: - Tylenol prn, avoid NSAIDs PO 6. General health maintenance: - Completed the covid vaccination series in November, pfizer. - Advised to continue follow-up with PCP for routine health maintenance and malignancy screening Follow-up in 4, 8 & 12 months with Palma and 16 months with me or sooner if needed. Patient was instructed to call if any questions or concerns. Thank you for allowing me to participate in the care of your patient. Magdalene Bradford MD documented in this encounterSumma Health [facility]11-18-2022 History of Present illness Narrative* Wily Abarca APRN.[facility] - 07/07/2022 9:47 AM EST Chief Complaint Patient presents with: Wound Check: Left leg HPI Cecelia Quiroz is a 72 year old female who presents here today for Above Complaints.. Per appointment with myself on 07/03/2022: Cecelia Quiroz is a 72 year old female who presents here today for Above Complaints.. Per [facility] care visit with Jeremy Cohen CNP on 06/25/2022: HPI Cecelia Quiroz is a 72 year old female who presents today for CC of scrape to left leg, now red.This started 2 weeks ago. Has tried otc medication for relief. Symptoms are worsened by nothing. Denies fever. Last tetanus 2011. ASSESSMENT/PLAN: 1. Skin infection - ICD9: 686.9, ICD10: L08.9 (primary diagnosis) - Begin treatment with Cephalaxin (Keflex) - No lymphangetic streaking, this was defined for patient to watch for and to seek medical care immediately if appears - Follow up for recheck in three days if s/s persist, f/u sooner if s/s worsen. - CEPHALEXIN 500 MG CAPSULE - MUPIROCIN 2 % TOPICAL OINTMENT 2. Need for tetanus booster - ICD9: V03.7, ICD10: Z23 - TETANUS/DIPTHERIA BOOSTER (OVER 7), PF IM ASSESSMENT/PLAN: 1. Injury of left lower extremity, subsequent encounter - ICD9: V58.89, 959.7, ICD10: S89.92XD (primary diagnosis) Extend Keflex 5 more days. Xray lower leg to r/o skeletal injury. Ice as able. Ok to leave wounds open, apply Bactroban periodically. Discussed s/s infection, red flag sx with patient. Return to office in 4 days for reassessment. - CEPHALEXIN 500 MG CAPSULE - XR TIBIA FIBULA 2V AP/LAT LEFT 2. Wound of left lower extremity, subsequent encounter - ICD9: V58.89, 894.0, ICD10: S81.802D Extend Keflex 5 more days. Xray lower leg to r/o skeletal injury. Ice as able. Ok to leave wounds open, apply Bactroban periodically. Discussed s/s infection, red flag sx with patient. Return to office in 4 days for reassessment. - CEPHALEXIN 500 MG CAPSULE - XR TIBIA FIBULA 2V AP/LAT LEFT 3. Pain of left lower extremity - ICD9: 729.5, ICD10: M79.605 Extend Keflex 5 more days. Xray lower leg to r/o skeletal injury. Ice as able. Ok to leave wounds open, apply Bactroban periodically. Discussed s/s infection, red flag sx with patient. Return to office in 4 days for reassessment. - CEPHALEXIN 500 MG CAPSULE - XR TIBIA FIBULA 2V AP/LAT LEFT 4. Hematoma of left lower leg - ICD9: 924.10, ICD10: S80.12XA Extend Keflex 5 more days. Xray lower leg to r/o skeletal injury. Ice as able. Ok to leave wounds open, apply Bactroban periodically. Discussed s/s infection, red flag sx with patient. Return to office in 4 days for reassessment. - CEPHALEXIN 500 MG CAPSULE - XR TIBIA FIBULA 2V AP/LAT LEFT Today: Past medical history, appointments, medications, allergies reviewed. Previous Medical History PAST MEDICAL HISTORY Diagnosis Date Autoimmune disease (HCC) Cancer (HCC) 1982 Uterine Depression Disorder of bone and cartilage, unspecified Diverticulitis of colon (without mention of hemorrhage)(562.11) 2003 Essential hypertension 12/28/2021 GCA (giant cell arteritis) ([facility]) bx negative Glaucoma Hematuria 1999 had workup including cystoscopy, etc. - entire workup negative. No longer happening. IBS (irritable bowel syndrome) Iron deficiency anemia, unspecified ? related to UGI source from NSAID's PMR (polymyalgia rheumatica) ([facility]) Raynaud's disease /phenomenon Steroid long-term use Tobacco use disorder Previous Surgical History PAST SURGICAL HISTORY Procedure Laterality Date ABDOMINAL SURGERY HX APPENDECTOMY 1982 incidental APPENDECTOMY HX BREAST SURGERY HX CATARACT EXTRACTION HX bilateral CHOLECYSTECTOMY Cholecystectomy COLONOSCOPY 2013 COLONOSCOPY FLX DX W/COLLJ SPEC WHEN PFRMD 05/09/2021 ESOPHAGOGASTRODUODENOSCOPY TRANSORAL DIAGNOSTIC 07/05/2015 EGD ESOPHAGOGASTRODUODENOSCOPY TRANSORAL DIAGNOSTIC 05/09/2021 EYE SURGERY HX FRACTURE SURGERY LEFT HEART CATH,PERCUTANEOUS 2011 Cardiac cath, L heart. Normal PAST SURGICAL HISTORY OF 1987 ulnar ner transferred PAST SURGICAL HISTORY OF 1990 bartholin cyst on vagina PAST SURGICAL HISTORY OF 2005 bone spur to left shoulder PAST SURGICAL HISTORY OF 2007 left knee -- torn meniscus ([facility]) PAST SURGICAL HISTORY OF 2011 ORIF R ankle PAST SURGICAL HISTORY OF 2000 Bartholin cyst excised TOTAL ABDOMINAL HYSTERECT W/WO RMVL TUBE OVARY 1982 cervical cancer, still has ovaries VAGINAL HYSTERECTOMY Family History FAMILY HISTORY Problem Relation Age of Onset Diabetes Father late in life Coronary Artery Disease Father Hx of [place], age 71 Tremor Mother Hypertension Mother Cancer Brother Cancer Brother lymphoma - 55; h/o kidney transplant Cancer Brother Mestatic Aneurysm Sister brain Lung Cancer Sister dies at 52 Bipolar disorder Son Tremor Son Colon Cancer Niece Tremor Niece Hyperlipidemia No Family History Blood Clots No Family History Blood Disease No Family History Factor 5 Leiden No Family History DVT No Family History Stroke No Family History Schizophrenia No Family History Systemic Lupus Erythematosus No Family History Multiple Sclerosis No Family History Alzheimer's Disease No Family History Parkinson s Disease No Family History Patient Allergies ALLERGIES No Known Allergies Current Medications Current Outpatient Medications on File Prior to Visit Medication Sig cephALEXin (KEFLEX) 500 mg capsule Take 1 capsule by mouth four times daily for 5 days. predniSONE (DELTASONE) 10 mg tablet Take in the morning with food. Use 10 mg tabs to take 30 mg (3 tabs)/day x1 week, then taper by 5 mg every 1 week until you're at 20mg/day. Then use 5 mg tablets to taper by 2.5mg every 1 week until you're at 10mg/day. Please continue 10mg/day thereafter. folic acid 1 mg tablet Take 1 tablet by mouth once daily. methotrexate sodium 25 mg/mL soln Inject subcutaneously. Inject 0.4 ml once per week x 1 week, theninject 0.5 ml once per week x 1 week, then inject 0.6 ml once per week thereafter. Insulin Syringe-Needle U-100 1 mL 31 gauge x 01/02 Use as directed to administer methotrexate. primidone (MYSOLINE) 250 mg tablet Take 1 tablet by mouth daily at bedtime. amLODIPine (NORVASC) 5 mg tablet Take 1 tablet by mouth once daily. metoprolol succinate ER (TOPROL XL) 50 mg 24 hr tablet Take 1 tablet by mouth once daily. calcium carb/magnesium oxid/D3 (CALCIUM MAGNESIUM + D ORAL) Take 1 tablet by mouth once daily. loperamide (IMODIUM) 2 mg cap(s) Take 2 mg by mouth four times daily as needed. CHOLESTYRAMINE, BULK, MISC 1 Scoop once daily. cholecalciferol, vitamin D3, (VITAMIN D3 ORAL) Take by mouth once daily. TRAVOPROST, BENZALKONIUM, (TRAVATAN OPHTHALMIC) Use in eyes. One drop daily at bedtime in both eyes. predniSONE (DELTASONE) 5 mg tablet Take in the morning with food. Take 30 mg (3 tabs)/day x1 week, then taper by 5 mg every 1 week until you're at 20mg/day. Then use 5mg tablets to taper by 2.5mg every 1 week until you're at 10mg/day. Please continue 10mg/day thereafter. (Patient not taking: No sigreported) Current Facility-Administered Medications on File Prior to Visit Medication perflutren lipid microspheres 1.3 mL in NaCl (PF) 0.9% 10 mL injection (DEFINITY) sodium chloride 0.9 % (flush) 10 mL (BD POSIFLUSH) Social History Social History Tobacco Use Smoking status: Every Day Packs/day: 1.00 Years: 35.00 Pack years: 35.00 Types: Cigarettes Smokeless tobacco: Never Substance Use Topics Alcohol use: No Drug use: No Review of Symptoms REVIEW OF SYSTEMS See HPI, otherwise negative EXAM: BP 116/64 (BP Site: Left Arm, BP Position: Sitting, BP Cuff Size: Regular Adult) Pulse 77 Temp 36.5 C (97.7 F) Resp 16 Wt 61.4 kg (135 lb 6.4 oz) SpO2 96% BMI 22.19 kg/m General Appearance: Well appearing, alert, in no acute distress, well-hydrated, well nourished.. Skin: two lesions to right taylor that are improving in size, mild surrounding erythema, no drainage,mild pain to palpation. Health Maintenance List LUNG CANCER SCREENING Never done ADVANCE DIRECTIVE DISCUSSION Never done DEPRESSION ASSESSMENT Never done COVID-19 VACCINE(4 - Booster for Pfizer series) due on 11/21/2021 INFLUENZA(1) due on 04/20/2022 MAMMOGRAM due on 09/26/2022 ANNUAL PCP TEAM CHRONIC DISEASE VISIT due on 07/03/2023 BP CONTROLLED (<130/80) due on 07/03/2023 DIABETES SCREEN due on 2024 LIPID SCREEN due on 08/15/2024 COLORECTAL CANCER SCREENING due on 05/09/2031 DTAP,TDAP,TD(3 - Td or Tdap) due on 06/25/2032 BONE DENSITY Completed HEPATITIS C SCREENING Completed SHINGRIX VACCINE Completed PNEUMOCOCCAL: 65+ Completed Data reviewed Previous records, office notes ASSESSMENT/PLAN: 1. Pain of left lower extremity - ICD9: 729.5, ICD10: M79.605 significant improvement in wound sizeand pain. Complete cephalexin. Continue with bacitracin prn. Follow up in 1-2 weeks if necessary. 2. Hematoma of left lower leg - ICD9: 924.10, ICD10: S80.12XA significant improvement in wound size and pain. Complete cephalexin. Continue with bacitracin prn. Follow up in 1-2 weeks if necessary. 3. Wound of left lower extremity, subsequent encounter - ICD9: V58.89, 894.0, ICD10: S81.802D significant improvement in wound size and pain. Complete cephalexin. Continue with bacitracin prn. Follow up in 1-2 weeks if necessary. 4. Injury of left lower extremity, subsequent encounter - ICD9: V58.89, 959.7, ICD10: S89.92XD significant improvement in wound size and pain. Complete cephalexin. Continue with bacitracin prn. Follow up in 1-2 weeks if necessary. Wily Abarca APRN.SHINGLE INSPECTOR documented in this encounterSum[facility]11-14-[facility]22 History of Present illness Narrative* Bethany Sanchez RT(R) - 07/03/2022 10:00 AM EST Radiology Service Progress Note PATIENT NAME: Cecelia Quiroz DATE OF SERVICE: July 03, 2022 TIME: 10:07 AM PATIENT IDENTITY VERIFICATION COMPLETED USING TWO (2) IDENTIFIERS: Name and Date of confirmedby patient verbally. FALL SCREENING: Has the patient had 2 falls in the last year or 1 fall with injury or currently using an Ambulatory Assistive Device (Walker, Cane, Wheelchair, Crutches, etc.)? No PATIENT GENDER DATA: Female. status: : No status: NO. PATIENT RELEVANT IMPLANT DATA REVIEWED: Yes RADIOLOGY DEPARTMENT: General X-ray: Exam(s) Completed: Lower Extremity X- Ray(s): Tibia Fibula, Left PERIPHERAL IV DATA: Not applicable SIGNED BY: RT Denver(R) July 03, 2022 10:07 AM documented in this encounterSumma Health [facility]11-14-2022 Instructions* Patient Instructions* Wily Abarca APRN.CNP - 07/03/2022 9:46 AM EST Take 5 more days of the antibiotic-we sent this to [facility] for you. Have the xray of your lower leg completed-I'll let you know when I get the results. Follow up on Sunday (07/07). Ok to leave the wound areas open. documented in this encounterSumma [facility]11-14-2022 History of Present illness Narrative* Wily Abarca APRN.CNP - 07/03/2022 9:23 AM EST Chief Complaint Patient presents with: Follow Up: EC- 06/22- left leg wound. Completed antibiotic on 07/02. HPI Cecelia Quiroz is a 72 year old female who presents here today for Above Complaints.. Per express care visit with Jeremy Cohen CNP on 06/25/2022: HPI Cecelia Quiroz is a 72 year old female who presents today for CC of scrape to left leg, now red.This started 2 weeks ago. Has tried otc medication for relief. Symptoms are worsened by nothing. Denies fever. Last tetanus 2011. ASSESSMENT/PLAN: 1. Skin infection - ICD9: 686.9, ICD10: L08.9 (primary diagnosis) - Begin treatment with Cephalaxin (Keflex) - No lymphangetic streaking, this was defined for patient to watch for and to seek medical care immediately if appears - Follow up for recheck in three days if s/s persist, f/u sooner if s/s worsen. - CEPHALEXIN 500 MG CAPSULE - MUPIROCIN 2 % TOPICAL OINTMENT 2. Need for tetanus booster - ICD9: V03.7, ICD10: Z23 - TETANUS/DIPTHERIA BOOSTER (OVER 7), PF IM Today: Past medical history, appointments, medications, allergies reviewed. Previous Medical History PAST MEDICAL HISTORY Diagnosis Date Autoimmune disease (HCC) Cancer (HCC) 1982 Uterine Depression Disorder of bone and cartilage, unspecified Diverticulitis of colon (without mention of hemorrhage)(562.11) 2003 Essential hypertension 12/28/2021 GCA (giant cell arteritis) (HCC) bx negative Glaucoma Hematuria 1999 had workup including cystoscopy, etc. - entire workup negative. No longer happening. IBS (irritable bowel syndrome) Iron deficiency anemia, unspecified ? related to UGI source from NSAID's PMR (polymyalgia rheumatica) (HCC) Raynaud's disease /phenomenon Steroid long-term use Tobacco use disorder Previous Surgical History PAST SURGICAL HISTORY Procedure Laterality Date ABDOMINAL SURGERY HX APPENDECTOMY 1982 incidental APPENDECTOMY HX BREAST SURGERY HX CATARACT EXTRACTION HX bilateral CHOLECYSTECTOMY Cholecystectomy COLONOSCOPY 2012 COLONOSCOPY FLX DX W/COLLJ SPEC WHEN PFRMD 05/09/2021 ESOPHAGOGASTRODUODENOSCOPY TRANSORAL DIAGNOSTIC 07/05/2015 EGD ESOPHAGOGASTRODUODENOSCOPY TRANSORAL DIAGNOSTIC 05/09/2021 EYE SURGERY HX FRACTURE SURGERY LEFT HEART CATH,PERCUTANEOUS 2011 Cardiac cath, L heart. Normal PAST SURGICAL HISTORY OF 1987 ulnar ner transferred PAST SURGICAL HISTORY OF 1990 bartholin cyst on vagina PAST SURGICAL HISTORY OF 2005 bone spur to left shoulder PAST SURGICAL HISTORY OF 2007 left knee -- torn meniscus ([place]) PAST SURGICAL HISTORY OF 2011 ORIF R ankle PAST SURGICAL HISTORY OF 2000 Bartholin cyst excised TOTAL ABDOMINAL HYSTERECT W/WO RMVL TUBE OVARY 1982 cervical cancer, still has ovaries VAGINAL HYSTERECTOMY Family History FAMILY HISTORY Problem Relation Age of Onset Diabetes Father late in life Coronary Artery Disease Father Hx of [place], age 71 Tremor Mother Hypertension Mother Cancer Brother Cancer Brother lymphoma - 55; h/o kidney transplant Cancer Brother Mestatic Aneurysm Sister brain Lung Cancer Sister dies at 52 Bipolar disorder Son Tremor Son Colon Cancer Niece Tremor Niece Hyperlipidemia No Family History Blood Clots No Family History Blood Disease No Family History Factor 5 Leiden No Family History DVT No Family History Stroke No Family History Schizophrenia No Family History Systemic Lupus Erythematosus No Family History Multiple Sclerosis No Family History Alzheimer's Disease No Family History Parkinson s Disease No Family History Patient Allergies ALLERGIES No Known Allergies Current Medications Current Outpatient Medications on File Prior to Visit Medication Sig mupirocin (BACTROBAN) 2 % ointment Apply to affected area three times daily for 10 days. predniSONE (DELTASONE) 10 mg tablet Take in the morning with food. Use 10 mg tabs to take 30 mg (3 tabs)/day x1 week, then taper by 5 mg every 1 week until you're at 20mg/day. Then use 5 mg tablets to taper by 2.5mg every 1 week until you're at 10mg/day. Please continue 10mg/day thereafter. folic acid 1 mg tablet Take 1 tablet by mouth once daily. methotrexate sodium 25 mg/mL soln Inject subcutaneously. Inject 0.4 ml once per week x 1 week, theninject 0.5 ml once per week x 1 week, then inject 0.6 ml once per week thereafter. Insulin Syringe-Needle U-100 1 mL 31 gauge x 01/02 Use as directed to administer methotrexate. primidone (MYSOLINE) 250 mg tablet Take 1 tablet by mouth daily at bedtime. amLODIPine (NORVASC) 5 mg tablet Take 1 tablet by mouth once daily. metoprolol succinate ER (TOPROL XL) 50 mg 24 hr tablet Take 1 tablet by mouth once daily. calcium carb/magnesium oxid/D3 (CALCIUM MAGNESIUM + D ORAL) Take 1 tablet by mouth once daily. loperamide (IMODIUM) 2 mg cap(s) Take 2 mg by mouth four times daily as needed. CHOLESTYRAMINE, BULK, MISC 1 Scoop once daily. cholecalciferol, vitamin D3, (VITAMIN D3 ORAL) Take by mouth once daily. TRAVOPROST, BENZALKONIUM, (TRAVATAN OPHTHALMIC) Use in eyes. One drop daily at bedtime in both eyes. predniSONE (DELTASONE) 5 mg tablet Take in the morning with food. Take 30 mg (3 tabs)/day x1 week, then taper by 5 mg every 1 week until you're at 20mg/day. Then use 5mg tablets to taper by 2.5mg every 1 week until you're at 10mg/day. Please continue 10mg/day thereafter. (Patient not taking: Reported on 07/03/2022) Current Facility-Administered Medications on File Prior to Visit Medication perflutren lipid microspheres 1.3 mL in NaCl (PF) 0.9% 10 mL injection (DEFINITY) sodium chloride 0.9 % (flush) 10 mL (BD POSIFLUSH) Social History Social History Tobacco Use Smoking status: Every Day Packs/day: 1.00 Years: 35.00 Pack years: 35.00 Types: Cigarettes Smokeless tobacco: Never Substance Use Topics Alcohol use: No Drug use: No Review of Symptoms REVIEW OF SYSTEMS See HPI, otherwise negative EXAM: BP 110/64 (BP Site: Left Arm, BP Position: Sitting, BP Cuff Size: Regular Adult) Pulse 91 Resp 16 Wt 61.5 kg (135 lb 9.6 oz) SpO2 99% BMI 22.22 kg/m General Appearance: Well appearing, alert, in no acute distress, well-hydrated, well nourished.. Skin: Scabbed areas x4 to left anterior lower extremity, no drainage, slight erythema surrounding areas. Tender to palpation. Golf-ball sized hematoma that is painful to palpation just proximal to wounds. Lungs: Lungs clear to auscultation. No wheezing, rhonchi, rales.. Heart: RRR without murmur, gallop, or rubs. No ectopy. Health Maintenance List LUNG CANCER SCREENING Never done ADVANCE DIRECTIVE DISCUSSION Never done DEPRESSION ASSESSMENT Never done COVID-19 VACCINE(4 - Booster for Pfizer series) due on 11/21/2021 INFLUENZA(1) due on 04/20/2022 MAMMOGRAM due on 09/26/2022 ANNUAL PCP TEAM CHRONIC DISEASE VISIT due on 12/26/2022 BP CONTROLLED (<130/80) due on 06/25/2023 DIABETES SCREEN due on 2024 LIPID SCREEN due on 08/15/2024 COLORECTAL CANCER SCREENING due on 05/09/2031 DTAP,TDAP,TD(3 - Td or Tdap) due on 06/25/2032 BONE DENSITY Completed HEPATITIS C SCREENING Completed SHINGRIX VACCINE Completed PNEUMOCOCCAL: 65+ Completed Data reviewed Previous records, office notes ASSESSMENT/PLAN: 1. Injury of left lower extremity, subsequent encounter - ICD9: V58.89, 959.7, ICD10: S89.92XD (primary diagnosis) Extend Keflex 5 more days. Xray lower leg to r/o skeletal injury. Ice as able. Ok to leave wounds open, apply Bactroban periodically. Discussed s/s infection, red flag sx with patient. Return to office in 4 days for reassessment. - CEPHALEXIN 500 MG CAPSULE - XR TIBIA FIBULA 2V AP/LAT LEFT 2. Wound of left lower extremity, subsequent encounter - ICD9: V58.89, 894.0, ICD10: S81.802D Extend Keflex 5 more days. Xray lower leg to r/o skeletal injury. Ice as able. Ok to leave wounds open, apply Bactroban periodically. Discussed s/s infection, red flag sx with patient. Return to office in 4 days for reassessment. - CEPHALEXIN 500 MG CAPSULE - XR TIBIA FIBULA 2V AP/LAT LEFT 3. Pain of left lower extremity - ICD9: 729.5, ICD10: M79.605 Extend Keflex 5 more days. Xray lower leg to r/o skeletal injury. Ice as able. Ok to leave wounds open, apply Bactroban periodically. Discussed s/s infection, red flag sx with patient. Return to office in 4 days for reassessment. - CEPHALEXIN 500 MG CAPSULE - XR TIBIA FIBULA 2V AP/LAT LEFT 4. Hematoma of left lower leg - ICD9: 924.10, ICD10: S80.12XA Extend Keflex 5 more days. Xray lower leg to r/o skeletal injury. Ice as able. Ok to leave wounds open, apply Bactroban periodically. Discussed s/s infection, red flag sx with patient. Return to office in 4 days for reassessment. - CEPHALEXIN 500 MG CAPSULE - XR TIBIA FIBULA 2V AP/LAT LEFT Wily Abarca APRN.IRINEO documented in this encounterSum[facility]11-06-2022 History of Present illness Narrative* Jeremy Cohen APRN.IRINEO - 06/25/2022 1:36 PM EST Images from the original note were not included. Subjective HPI HPI Cecelia Quiroz is a 72 year old female who presents today for CC of scrape to left leg, now red.This started 2 weeks ago. Has tried otc medication for relief. Symptoms are worsened by nothing. Denies fever. Last tetanus 2011. .Patient presents with: Trauma: Left leg 2 weeks ago, sore won't heal, painful PAST MEDICAL HISTORY Diagnosis Date Autoimmune disease (HCC) Cancer (HCC) 1982 Uterine Depression Disorder of bone and cartilage, unspecified Diverticulitis of colon (without mention of hemorrhage)(562.11) 2003 Essential hypertension 12/28/2021 GCA (giant cell arteritis) ([facility]) bx negative Glaucoma Hematuria 1999 had workup including cystoscopy, etc. - entire workup negative. No longer happening. IBS (irritable bowel syndrome) Iron deficiency anemia, unspecified ? related to UGI source from NSAID's PMR (polymyalgia rheumatica) (HCC) Raynaud's disease /phenomenon Steroid long-term use Tobacco use disorder PAST SURGICAL HISTORY Procedure Laterality Date ABDOMINAL SURGERY HX APPENDECTOMY 1982 incidental APPENDECTOMY HX BREAST SURGERY HX CATARACT EXTRACTION HX bilateral CHOLECYSTECTOMY Cholecystectomy COLONOSCOPY 2012 COLONOSCOPY FLX DX W/COLLJ SPEC WHEN PFRMD 05/09/2021 ESOPHAGOGASTRODUODENOSCOPY TRANSORAL DIAGNOSTIC 07/05/2015 EGD ESOPHAGOGASTRODUODENOSCOPY TRANSORAL DIAGNOSTIC 05/09/2021 EYE SURGERY HX FRACTURE SURGERY LEFT HEART CATH,PERCUTANEOUS 2011 Cardiac cath, L heart. Normal PAST SURGICAL HISTORY OF 1987 ulnar ner transferred PAST SURGICAL HISTORY OF 1990 bartholin cyst on vagina PAST SURGICAL HISTORY OF 2005 bone spur to left shoulder PAST SURGICAL HISTORY OF 2007 left knee -- torn meniscus ([place]) PAST SURGICAL HISTORY OF 2011 ORIF R ankle PAST SURGICAL HISTORY OF 2000 Bartholin cyst excised TOTAL ABDOMINAL HYSTERECT W/WO RMVL TUBE OVARY 1982 cervical cancer, still has ovaries VAGINAL HYSTERECTOMY ALLERGIES Patient has no known allergies. MEDICATIONS predniSONE (DELTASONE) 10 mg tablet^Take in the morning with food. Use 10 mg tabs to take 30 mg (3 tabs)/day x1 week, then taper by 5 mg every 1 week until you're at 20mg/day. Then use 5 mg tablets to taper by 2.5mg every 1 week until you're at 10mg/day. Please continue 10mg/day thereafter.^Disp: 120 tablet^Rfl: 1 predniSONE (DELTASONE) 5 mg tablet^Take in the morning with food. Take 30 mg (3 tabs)/day x1 week, then taper by 5 mg every 1 week until you're at 20mg/day. Then use 5mg tablets to taper by 2.5mg every 1 week until you're at 10mg/day. Please continue 10mg/day thereafter.^Disp: 90 tablet^Rfl: 1 folic acid 1 mg tablet^Take 1 tablet by mouth once daily.^Disp: 90 tablet^Rfl: 3 methotrexate sodium 25 mg/mL soln^Inject subcutaneously. Inject 0.4 ml once per week x 1 week, theninject 0.5 ml once per week x 1 week, then inject 0.6 ml once per week thereafter.^Disp: 4 mL^Rfl: 0 Insulin Syringe-Needle U-100 1 mL 31 gauge x 01/02^Use as directed to administer methotrexate.^Disp:90 Each^Rfl: 3 primidone (MYSOLINE) 250 mg tablet^Take 1 tablet by mouth daily at bedtime.^Disp: 90 tablet^Rfl: 3 amLODIPine (NORVASC) 5 mg tablet^Take 1 tablet by mouth once daily.^Disp: 90 tablet^Rfl: 1 metoprolol succinate ER (TOPROL XL) 50 mg 24 hr tablet^Take 1 tablet by mouth once daily.^Disp: 90 tablet^Rfl: 3 calcium carb/magnesium oxid/D3 (CALCIUM MAGNESIUM + D ORAL)^Take 1 tablet by mouth once daily.^Disp: ^Rfl: loperamide (IMODIUM) 2 mg cap(s)^Take 2 mg by mouth four times daily as needed.^Disp: ^Rfl: CHOLESTYRAMINE, BULK, MISC^1 Scoop once daily. ^Disp: ^Rfl: cholecalciferol, vitamin D3, (VITAMIN D3 ORAL)^Take by mouth once daily.^Disp: ^Rfl: TRAVOPROST, BENZALKONIUM, (TRAVATAN OPHTHALMIC)^Use in eyes. One drop daily at bedtime in both eyes.^Disp: ^Rfl: FAMILY HISTORY Problem Relation Age of Onset Diabetes Father late in life Coronary Artery Disease Father Hx of [place], age 71 Tremor Mother Hypertension Mother Cancer Brother Cancer Brother lymphoma - 55; h/o kidney transplant Cancer Brother Mestatic Aneurysm Sister brain Lung Cancer Sister dies at 52 Bipolar disorder Son Tremor Son Colon Cancer Niece Tremor Niece Hyperlipidemia No Family History Blood Clots No Family History Blood Disease No Family History Factor 5 Leiden No Family History DVT No Family History Stroke No Family History Schizophrenia No Family History Systemic Lupus Erythematosus No Family History Multiple Sclerosis No Family History Alzheimer's Disease No Family History Parkinson s Disease No Family History Social History Tobacco Use Smoking status: Every Day Packs/day: 1.00 Years: 35.00 Pack years: 35.00 Types: Cigarettes Smokeless tobacco: Never Substance Use Topics Alcohol use: No Drug use: No ROS Objective Blood pressure 122/70, pulse 71, temperature 36.6 C (97.8 F), resp. rate 16, weight 60.8 kg (134 lb), SpO2 98 %. Physical Exam Constitutional: General: She is not in acute distress. Appearance: She is not toxic-appearing or diaphoretic. HENT: Head: Normocephalic and atraumatic. Pulmonary: Effort: Pulmonary effort is normal. No accessory muscle usage or respiratory distress. Skin: Neurological: Mental Status: She is alert and oriented to person, place, and time. ASSESSMENT/PLAN: 1. Skin infection - ICD9: 686.9, ICD10: L08.9 (primary diagnosis) - Begin treatment with Cephalaxin (Keflex) - No lymphangetic streaking, this was defined for patient to watch for and to seek medical care immediately if appears - Follow up for recheck in three days if s/s persist, f/u sooner if s/s worsen. - CEPHALEXIN 500 MG CAPSULE - MUPIROCIN 2 % TOPICAL OINTMENT 2. Need for tetanus booster - ICD9: V03.7, ICD10: Z23 - TETANUS/DIPTHERIA BOOSTER (OVER 7), PF IM Agrees to plan Declines avs Jeremy Cohen APRN.SHINGLE INSPECTOR documented in this encounterSum[facility]10-03-2022 History of Present illness Narrative* Diana Norman RT(R) - 05/22/2022 4:20 PM EDT Radiology Service Progress Note PATIENT NAME: Cecelia Quiroz DATE OF SERVICE: May 22, 2022 TIME: 4:21 PM PATIENT IDENTITY VERIFICATION COMPLETED USING TWO (2) IDENTIFIERS: Name and Date of confirmedby patient verbally. FALL SCREENING: Has the patient had 2 falls in the last year or 1 fall with injury or currently using an Ambulatory Assistive Device (Walker, Cane, Wheelchair, Crutches, etc.)? No PATIENT GENDER DATA: Female. status: : No status: NO. PATIENT RELEVANT IMPLANT DATA REVIEWED: Not Applicable RADIOLOGY DEPARTMENT: General X-ray: Exam(s) Completed: Chest X-Ray PERIPHERAL IV DATA: Not applicable SIGNED BY: RT Nash(R) May 22, 2022 4:21 PM documented in this encounterSumma Health [facility]10-03-2022 History of Present illness Narrative* Melissa Pierre RN - 05/22/2022 8:53 AM EDT Educated pt on proper technique for SQ methotrexate injection. Instructed on dosage and how to measure appropriately. Pt has had previous experience with SQ injections. Pt stated understanding and had no further questions. documented in this encounterSumma Health [facility]09-29-2022 Miscellaneous Notes* Telephone Encounter - Prema Miguel MA - 05/18/2022 1:12 PM EDT Keaton Moran RN: Received a call asking if patient can come to our office to receive self injection teaching on methotrexate. Spoke to Yumiko who stated we can do this at our facility; patient will need to go on the chemo schedule. [address]/[employer] will contact patient and assist with scheduling. Prema Miguel MA * Telephone Encounter - Prema Miguel MA - 05/18/2022 9:22 AM EDT Spoke with [facility] [facility]. Care coordination will need to check with RN's on this and will contact me back with a response. Prema Miguel MA * Telephone Encounter - Palma Lovett APRN.CNP - 05/18/2022 6:50 AM EDT Could you please call the [facility] infusion center to see if they have nurses available to do injection teaching. Thanks, Palma Lovett APRN.SHINGLE INSPECTOR documented in this encounterSumma [facility]09-13-2022 History of Present illness Narrative* Marko Wood MD - 05/02/2022 10:42 AM EDT [facility] - FOLLOW UP EVALUATION Miah Cottrell DO [id number] [facility] [id number] I had the pleasure of seeing Ms. Quiroz for follow up today. She is a 72 year old right-handed female with a history of tremor since age 12 . She is seen alone. Subjective Previous Plan-05/02/2021 Visit: Essential tremor - continue primidone 250 mg at bedtime, metoprolol Interval History: Tremors are controlled. Still not sleeping well. No side effects from primidone. PMR has been acting up. Not feeling well since GB out. Appetite hasn't been the same. Weight has been stable lately. No imbalance and no falls. In addition, the following activities of daily living that may be affected by tremors were evaluated: Speaking: Not affected Feeding: Not affected Bringing Liquids to Mouth: Not affected Hygiene: Not affected Dressing: Not affected Writing: Not affected Working: Not affected Depression: PQH-9 = 8 usually representing mild (5-9) depression. Anxiety: RICHARD-7 = 5 usually representing mild (5-9) anxiety. Finally, the following table shows the patient's overall global physical and mental health using the PROMIS scale: PROMIS-10 Flowsheet Row Office Visit from 03/17/2022 in Rheumatology Office Visit from 12/16/2021 in Rheumatology Global Physical Health T Score 44.9 37.4 Global Mental Health T Score 48.3 43.5 0-10 Standard Pain Scale 3 2 *PROMIS-10 scoring scale: mean = 50, over 50 is above average, under 50 is below average Movement Disorders Medications Schedule - as of the start of the visit: Medications Bed metoprolol ER 50 mg daily primidone 250 mg 1 Other Movement Disorder Prior Therapies Propranolol, Primidone propranolol caused diarrhea but did help tremors ALLERGIES No Known Allergies Current Outpatient Medications Medication Sig primidone (MYSOLINE) 250 mg tablet Take 1 tablet by mouth daily at bedtime. predniSONE (DELTASONE) 10 mg tablet Take 1 tablet by mouth once daily. Take with food. amLODIPine (NORVASC) 5 mg tablet Take 1 tablet by mouth once daily. metoprolol succinate ER (TOPROL XL) 50 mg 24 hr tablet Take 1 tablet by mouth once daily. calcium carb/magnesium oxid/D3 (CALCIUM MAGNESIUM + D ORAL) Take 1 tablet by mouth once daily. loperamide (IMODIUM) 2 mg cap(s) Take 2 mg by mouth four times daily as needed. CHOLESTYRAMINE, BULK, MISC 1 Scoop once daily. cholecalciferol, vitamin D3, (VITAMIN D3 ORAL) Take by mouth once daily. TRAVOPROST, BENZALKONIUM, (TRAVATAN OPHTHALMIC) Use in eyes. One drop daily at bedtime in both eyes. Current Facility-Administered Medications Medication Dose Route Frequency perflutren lipid microspheres 1.3 mL in NaCl (PF) 0.9% 10 mL injection (DEFINITY) INTRAVENOUS DIRECTED PRN sodium chloride 0.9 % (flush) 10 mL (BD POSIFLUSH) 10 mL INTRAVENOUS DIRECTED PRN Objective Vital Signs: BP 131/58 Pulse 66 Ht 166.4 cm (5' 5.5) Wt 59.8 kg (131 lb 12.8 oz) SpO2 99% BMI 21.60 kg/m Orthostatic Vitals: Supine: BP Pulse Sitting: BP Pulse Standing: BP Pulse Weight: 59.8 kg (131 lb 12.8 oz) Height: 166.4 cm (5' 5.5) No LMP recorded. Patient has had a hysterectomy. Body mass index is 21.6 kg/m . General Physical Examination: General: Awake, alert, interactive, no acute distress, good nutritional status, normal development,well-kept General Neurological Examination: Neurological Exam Mental Status Awake and alert. Speech is normal. Language is fluent with no aphasia. Fund of knowledge is appropriate for level of education. Cranial Nerves CN III, IV, : Extraocular movements intact bilaterally. Motor Bilateral upper extremity action tremors are subtle. No rigidity or bradykinesia . Gait Stable gait. Assessment and Plan: Assessment Ms. Quiroz is a right-handed 72 year old female with essential tremor. She is currently happy with her current tremor control. The following are the current problems noted and addressed during this visit: Essential tremor (primary encounter diagnosis) Plan 05/02/2022 Visit: Continue primidone 250 mg daily - Updated Movement Disorders Medication Schedule: Medications Bed metoprolol ER 50 mg daily primidone 250 mg 1 Return at or around: 05/02/23 Medical Decision Making: Problems: Low: Stable chronic illness Risk: Moderate: Drug management Medical Decision Making Level: 3 - Low Thank you for allowing me to be part of the clinical care of this patient! I look forward to continued participation in the patient s care with you. Please do not hesitate to call with any questions. Sincerely, Marko Wood MD documented in this encounterSumma Health [facility]08-31-2022 Miscellaneous Notes* Addendum Note - Palma Lovett APRN.CNP - 04/19/2022 12:24 PM EDTAddended by: PALMA LOVETT on: 04/19/2022 12:24 PM Modules accepted: Orders * Telephone Encounter - Palma Lovett APRN.CNP - 04/19/2022 11:27 AM EDT Get Medical Advice on 04/18/22 SED RATE WESTERGREN C-REACTIVE PROTEIN (CRP) Palma Lovett APRN.IRINEO documented in this encounterSumma Health [facility] Campus08-04-2022 History of Present illness Narrative* Charmaine Juarez RN - 03/23/2022 12:45 PM EDT Discharge instructions reviewed with patient and friend who had to leave for phone call. Patient isalert and asks appropriate questions * Charmaine Juarez RN - 03/23/2022 11:34 AM EDT Received patient from OR with belongings on oxygen. Arouses easily to name and answers questions. * Charmaine Juarez RN - 03/23/2022 12:50 AM EDT Able to get dressed without difficulty. Provided with walking shoe. Gait steady. Denies nausea [facility] Phone: 1(887) 882-652608-04-2022 Hospital Discharge instructions* Discharge Instructions* KATARINA Morejon - 03/23/2022 9:47 AM EDT Images from the original note were not included. If you have any questions please call Dr Pennington's office ([phone]), all calls after 4:30 pm or anytime on Sunday or Sunday go through the answering service. The nurse at the answering service will triage your call to determine if the at night on-call physician needs to be called (this may notbe Dr Pennington but one of his partners if Dr Pennington is not director information). Any calls regarding medication refills will be handled by the office during usual business hours Sunday-Sunday. If you call for medication refills after hours or on the weekend you will have to wait until the next business day. BANDAGE INSTRUCTIONS: Keep your bandage clean and dry. Do not put anything down under the dressings to scratch. If your bandage gets wet or starts to feel uncomfortable call Dr Pennington's office immediately ([phone]). Leave the dressing in place, you do not need to change it unless you are instructed to do so by . If there are problems with the dressing (it feels to tight, too loose, it gets wet) call 's office. If you see any blood on the bandage reinforce it on the surface with gauze and an kleber bandage and call Dr Pennington's office. Please call if you have any questions concerning your bandage/splint. ACTIVITY: The first 2 weeks after surgery is the most important time for healing. Please take this time to rest and give yourself the best chance to have a good outcome. Doing too much can affect your healing.If you are not sure how active you can be please call Dr Pennington. You should get up and move around once or twice an hour based on your comfort level. You are not ganesh at bed rest meaning you need to get up and move around in order to prevent blood clots. It is OK to wiggle your toes and you can contract your calf muscle as well. When you put your foot down it is normal for the toes to turn a bluish or purple color. Once you elevate the foot for a few minutes a normal pink color should return underneath the toenails. If the color does not change within [address] Pennington's office. Keep your foot/ankle elevated for comfort. Elevation is the best way to alleviate pain and decreaseyour swelling (swelling causes pain by itself). Elevation means keeping the toes at the level of your nose. If your leg is not elevated to that height then it is not truly elevated. MEDICATIONS You have been given a prescription for a narcotic medication that is intended for postoperative pain control. This medication should be used judiciously to try and minimize your discomfort after surgery. The medication will not relieve all of your pain and you should not take large amounts of the medication in an attempt to be pain free. Please understand that narcotic medications can be addictive and they are intended to decrease but not eliminate your pain and should therefore be used in moderation. If you have questions regarding taking the narcotic medication and other medications that you are currently on please call the office. You cannot drive or operate machinery while taking the narcotic medication. You should not drink alcohol or use recreational drugs while taking the narcotic medication.The [facility] restricts the amount of pain pills that can be legally prescribed and no more than one prescription in a week can be given. If you require a refill of the pain medication it requires that someone come to the office in person as it cannot be called in to the pharmacy or E-prescribed. Please understand that there is a limit to the total amount of pain medication that canbe prescribed so make every effort to take it only when needed. Unless otherwise instructed by Dr Pennington you can take an over the counter anti-inflammatory to help with your pain as well. This includes but is not limited to Ibuprofen, Advil, Motrin, Alleve, etc. A prescription for baby aspirin was sent to your pharmacy and Dr. Pennington wants you to take one tablet once a day. If you have any issues with the medication call Dr. Pennington. WEIGHTBEARING INSTRUCTIONS Dr Pennington wants you to be weight bearing as tolerated on the Right lower extremity. If you have any problems maintaining this weight bearing status please call the office so that appropriate instructions can be given. FREQUENTLY ASKED QUESTIONS If I am supposed to be non-weight bearing on the operative foot/ankle can I still rest the foot on the ground when I am sitting? Yes, it is OK to rest your operative foot on the ground when you are sitting. Is it normal to feel a adams of fluid or pressure in my foot/ankle when I put it down? Yes, after most foot, ankle or leg surgeries it is very common to feel immediate swelling or pressure in your foot, ankle and leg. Is it OK to put ice on my foot/ankle to help with the swelling and pain? After foot/ankle surgery elevating the foot/ankle is much better at relieving pain and swelling than ice. In many cases you bandage prevents the cold from getting to your skin. At your 2 week visit when your bandage is removed, icing the foot/ankle works much better and you can start it then. If I received a nerve block before surgery, how long will it last? A single shot nerve block can last anywhere from 8 hours to 36 hours on average, some patients' single shot blocks stop sooner and some can go a little longer. A catheter block (pain ball) lasts longer when you have it dialed down and it runs out faster if you have it dialed up. For most patients it lasts for a day and a half to 3 days. Can I shower or bathe after surgery? Yes, you can shower or bathe after surgery but you have to put a plastic bag over your splint/dressing to keep the splint/bandage absolutely dry. The splint/bandage is like a sponge and any water that gets in can damage your skin or cause your incision/incisions to open up and get infected. If your splint/bandage gets water in it, call Dr. Pennington's office ([phone]) immediately and you will beinstructed which office can see your the quickest to change your splint/bandage. * Discharge Instr - Activity* KATARINA Morejon - 03/23/2022 9:48 AM EDT Weight-bearing and post-operative activity Dr Pennington wants you to be weight bearing as tolerated on the Right lower extremity. If you have any problems maintaining this weight bearing status please call the office so that appropriate instructions can be given. Dr. Pennington wants you to be as active as your comfort will allow. Remember that when you get up it isnormal for your foot/toes to change color and for you to feel fluid, pressure or throbbing (your heart beat) in your foot or toes. When you return to sitting down or laying down elevate your foot as it will lessen your swelling and be more comfortable. If you are having a hard time moving around during the day, let Dr Pennington know. * Discharge Instr - Diet* KATARINA Morejon - 03/23/2022 9:48 AM EDT Good nutrition is important when healing from an illness, injury, or surgery. Follow any nutrition recommendations given to you during your hospital stay. If you were given an oral nutrition supplement while in the hospital, continue to take this supplement at home. You can take it with meals, in-between meals, and/or before bedtime. These supplements can be purchased at most local grocery stores, pharmacies, and chain super-stores. If you have any questions about your diet or nutrition, call the hospital and ask for the dietitian. documented in this encounterSUMMA Work Phone: 1(444) 527-842608-02-2022 Miscellaneous Notes* Telephone Encounter - Palma Lovett APRN.IRINEO - 03/21/2022 12:40 PM EDT I called and spoke with the patient. I explained that her inflammations markers are significantly elevated. She reports pain to low back and b/l hips, rated 8- 9/10. She denies joint swelling. She reports headaches to crown area and intermittent scalp tenderness. She denies temporal headaches. She denies any vision changes or jaw claudication. She reports b/l upper extremity weakness. She denies recent infection or current signs/symptoms of infection. She is scheduled to have ankle surgery next week. Will avoid increasing prednisone dose for now. She was advised to continue prednisone 20 mg daily for now. I asked that she contact her surgeon and advise that she is having a possible GCA flare (with elevated inflammation markers), to see if they would like to postpone the surgery. I asked that she contact me with an update. I advised that she contact our office and seek emergent care if she notices any new or worsening symptoms. She verbalized understanding. Palma Lovett APRN.CNP documented in this encounterSumma Health [facility]07-29-2022 History of Present illness Narrative* Palma Lovett APRN.CNP - 03/17/2022 10:30 AM EDT [facility] for GCA, PMR and osteoporosis. 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 With negative TA biopsies x2 - From Jun-Sep, on MTX which was stopped due to inefficacy - In October, started on acemtra which was stopped after 3 infusions - In Apr, fell off a trailer and broke L humerus - In Jul, seen by Dr. Gonzalez. On baseline prednisone 10mg/day. Given medrol dose pack for flarewith plans to return to prednisone 10mg/day thereafter. She was hesitant to reduce baseline pred 10mg/day further given previous attempts to taper led to flares of pain and headache - On 07/28/19, received prolia - In October, reported baseline pain in the R>L shoulders/arms. Not flaring. On pred 10mg/day - In January and Apr, reported stable PMR on pred 10mg/day - In Aug, reported taking pred 10mg/day. Taking forteo. No interim fracture. - In February, started on HCQ given active pain. pred 10mg/day continued - On 05/16/21, reported no improvement in L shoulder, neck and base of skull pain w/pred 20mg/day. Referred to spine and PT - in 05/2021, reports taking pred 10mg/day. Continues to have significant pain awakening her at night, located in L side of the neck/base of skull - Has continued forteo daily - Hx of PUD PAST MEDICAL HISTORY Diagnosis Date Autoimmune disease (HCC) Cancer (HCC) 1982 Uterine Depression Disorder of bone and cartilage, unspecified Diverticulitis of colon (without mention of hemorrhage)(562.11) 2003 Essential hypertension 12/28/2021 GCA (giant cell arteritis) ([facility]) bx negative Glaucoma Hematuria 1999 had workup including cystoscopy, etc. - entire workup negative. No longer happening. IBS (irritable bowel syndrome) Iron deficiency anemia, unspecified ? related to UGI source from NSAID's PMR (polymyalgia rheumatica) (HCC) Raynaud's disease /phenomenon Steroid long-term use Tobacco use disorder PAST SURGICAL HISTORY Procedure Laterality Date ABDOMINAL SURGERY HX APPENDECTOMY 1982 incidental APPENDECTOMY HX BREAST SURGERY HX CATARACT EXTRACTION HX bilateral CHOLECYSTECTOMY Cholecystectomy COLONOSCOPY 2012 COLONOSCOPY FLX DX W/COLLJ SPEC WHEN PFRMD 05/09/2021 ESOPHAGOGASTRODUODENOSCOPY TRANSORAL DIAGNOSTIC 07/05/2015 EGD ESOPHAGOGASTRODUODENOSCOPY TRANSORAL DIAGNOSTIC 05/09/2021 EYE SURGERY HX FRACTURE SURGERY LEFT HEART CATH,PERCUTANEOUS 2011 Cardiac cath, L heart. Normal PAST SURGICAL HISTORY OF 1987 ulnar ner transferred PAST SURGICAL HISTORY OF 1990 bartholin cyst on vagina PAST SURGICAL HISTORY OF 2005 bone spur to left shoulder PAST SURGICAL HISTORY OF 2007 left knee -- torn meniscus ([place]) PAST SURGICAL HISTORY OF 2011 ORIF R ankle PAST SURGICAL HISTORY OF 2000 Bartholin cyst excised TOTAL ABDOMINAL HYSTERECT W/WO RMVL TUBE OVARY 1982 cervical cancer, still has ovaries VAGINAL HYSTERECTOMY ALLERGIES No Known Allergies INTERVAL HISTORY She is here for follow up. She is doing the same since the MAGGIE. She is taking prednisone 10 mg daily. No falls or fractures since MAGGIE. No invasive dental work in the last three months and none planned for the next three months. Last dental exam was 5 years ago. No jaw or thigh pain. She was advised to stop the forteo the end of 01/2022, but is still taking it. She is taking vit d and calcium. She is scheduled for R ankle surgery on 03/23/2022. She takes tylenol for pain. Sites of pain: b/l hips, pain rated 5/10 Muscle weakness: b/l upper extremity muscles Headaches: yes to occipital area Scalp tenderness: intermittent Vision changes: none Jaw claudication: none Joint swelling: intermittent to hands EMS: none No recent infections. Tolerating meds. Answers for HPI/ROS submitted by the patient on 03/16/2022 Fever : No Recent Unintentional Weight Change: No Eye Pain: No Eye Redness: No Vision Disturbance: No Eye Dryness: Yes Nose Bleeds: No Sores in your Mouth: No Trouble Swallowing: Yes Dry Mouth: Yes Chest Pain: No Leg Swelling: Yes A Cough: No Shortness of Breath: No Pain with Breathing: No Heartburn: No Abdominal Pain: Yes Diarrhea: Yes Black Tarry Stools: No Blood in Urine: No Pain or Burning with Urination: No Joint Pain or Stiffness: Yes Muscle Weakness: Yes Muscle Aches: Yes Joint Swelling: Yes Morning Stiffness in Joints: No A Rash: No Skin Color Changes: No Hair Loss: No Nail Changes: No Headaches: Yes Numbness: Yes Memory Loss: No Swollen Glands: No Current Outpatient Medications Medication Sig FORTEO 20 mcg/dose (600mcg/2.4mL) INJECT 0.08ML (20MCG) UNDER THE SKIN ONCE DAILY amLODIPine (NORVASC) 5 mg tablet Take 1 tablet by mouth once daily. metoprolol succinate ER (TOPROL XL) 50 mg 24 hr tablet Take 1 tablet by mouth once daily. predniSONE (DELTASONE) 10 mg tablet Take 1 tablet by mouth once daily. Take with food. hydrOXYchloroQUINE (PLAQUENIL) 200 mg tablet Take 1 tablet by mouth once daily. calcium carb/magnesium oxid/D3 (CALCIUM MAGNESIUM + D ORAL) Take 1 tablet by mouth once daily. polyethylene glycol 3350 (MIRALAX, GLYCOLAX) 17 gram/dose powder Use as directed for Miralax / Gatorade Bowel Prep Kit Bisacodyl (DULCOLAX) 5 mg tab Use as directed for Miralax / Gatorade Bowel Prep Kit primidone (MYSOLINE) 250 mg tablet Take 1 tablet by mouth daily at bedtime. loperamide (IMODIUM) 2 mg cap(s) Take 2 mg by mouth four times daily as needed. CHOLESTYRAMINE, BULK, MISC 1 Scoop once daily. insulin needles, DISPOSABLE, (PEN NEEDLE) 31 gauge x 5/16 Use as directed to administer Forteo cholecalciferol, vitamin D3, (VITAMIN D3 ORAL) Take by mouth once daily. TRAVOPROST, BENZALKONIUM, (TRAVATAN OPHTHALMIC) Use in eyes. One drop daily at bedtime in both eyes. Current Facility-Administered Medications Medication Dose Route Frequency perflutren lipid microspheres 1.3 mL in NaCl (PF) 0.9% 10 mL injection (DEFINITY) INTRAVENOUS DIRECTED PRN sodium chloride 0.9 % (flush) 10 mL (BD POSIFLUSH) 10 mL INTRAVENOUS DIRECTED PRN FAMILY HISTORY Problem Relation Age of Onset Diabetes Father late in life Coronary Artery Disease Father Hx of [place], age 71 Tremor Mother Hypertension Mother Cancer Brother Cancer Brother lymphoma - 55; h/o kidney transplant Cancer Brother Mestatic Aneurysm Sister brain Lung Cancer Sister dies at 52 Bipolar disorder Son Tremor Son Colon Cancer Niece Tremor Niece Hyperlipidemia No Family History Blood Clots No Family History Blood Disease No Family History Factor 5 Leiden No Family History DVT No Family History Stroke No Family History Schizophrenia No Family History Systemic Lupus Erythematosus No Family History Multiple Sclerosis No Family History Alzheimer's Disease No Family History Parkinson s Disease No Family History SOCIAL HISTORY: Lives in [place]. Works. Tobacco use: 1 ppd Alcohol use: None PHYSICAL EXAM: BP 109/68 Pulse 61 Temp 36.3 C (97.3 F) (Temporal) Ht 166.4 cm (5' 5.5) Wt 58.1 kg (128 lb) BMI 20.98 kg/m CONSTITUTIONAL: Well-appearing, in NAD. SKIN: No rash. No alopecia. No sclerodactyly, calcinosis, telangiectasias, digital ulcers, or skin thickening. EYES: No scleral icterus or conjunctivitis, PERRLA. HENT and Mouth: External ears normal. No tenderness to palpation of the temples bilaterally or scalp. Oral exam wnl. RESPIRATORY: Normal breath sounds, clear to auscultation. CARDIOVASCULAR: Regular rate and rhythm, no murmurs or rubs GASTROENTEROLOGY: Normal bowel sounds. Abdomen is soft and non-tender. EXTREMITIES/LYMPH: No edema bilaterally NEURO: Awake, alert and oriented, antalgic gait MUSCULOSKELETAL: JOINT APPEARANCE: No erythema or warmth of any upper or lower extremity joint. RANGE OF MOTION: Able to fully close fists and curl fingers bilaterally. SWOLLEN JOINTS/SYNOVITIS: No synovitis of any joint. TENDER JOINTS: none No tenderness to muscles. Muscle strength intact. No tenderness to spine or SI joints. *October Widespread Pain Index: 12 (0-19) Symptoms Severity Scale: 4 (0-12) WPI>7 and SS Scale>5 OR WPI 3-6 and SS Scale >9 consistent with fibromyalgia Labs reviewed and discussed with the patient: Component Latest Ref Rng & Units 12/16/2021 Creatinine 0.58 - 0.96 mg/dL 0.81 eGFR >=60 mL/min/1.73m 78 WSR 0 - 20 mm/hr 43 (H) CRP <0.9 mg/dL 0.8 Vitamin D 25 Hydroxy 31.0 - 80.0 ng/mL 28.5 (L) Calcium 8.5 - 10.2 mg/dL 9.3 Component Latest Ref Rng & Units 09/09/2021 WBC 3.70 - 11.00 k/uL 14.19 (H) RBC 3.90 - 5.20 m/uL 3.86 (L) Hemoglobin 11.5 - 15.5 g/dL 12.2 Hematocrit 36.0 - 46.0 % 38.2 MCV 80.0 - 100.0 fL 99.0 MCH 26.0 - 34.0 pG 31.6 MCHC 30.5 - 36.0 g/dL 31.9 RDW-CV 11.5 - 15.0 % 12.8 Platelet Count 150 - 400 k/uL 304 MPV 9.0 - 12.7 fL 9.8 Neut% % 81.9 Abs Neut (ANC) 1.45 - 7.50 k/uL 11.62 (H) Lymph% % 12.3 Abs Lymph 1.00 - 4.00 k/uL 1.75 Meeker% % 5.4 Abs Meeker <0.87 k/uL 0.77 Eosin% % 0.1 Abs Eosin <0.46 k/uL <0.03 Baso% % 0.3 Abs Baso <0.11 k/uL 0.04 Nucleated Reds 0 /100 WBC 0.0 Absolute nRBC <0.01 k/uL <0.01 Diff Type Auto Diff Creatinine 0.58 - 0.96 mg/dL 0.70 eGFR- >60 eGFR-All Other Races . >60 AST 13 - 35 U/L 18 ALT 7 - 38 U/L 9 Albumin 3.9 - 4.9 g/dL 4.0 WSR 0 - 20 mm/hr 47 (H) CRP <0.9 mg/dL 1.1 (H) Vitamin D 25 Hydroxy 31.0 - 80.0 ng/mL 44.3 Component Latest Ref Rng & Units 05/31/2021 Vitamin D 25 Hydroxy 31.0 - 80.0 ng/mL 23.4 (L) STUDIES: 01/2022 DEXA: IMPRESSION: THE LOWEST T-SCORE IS -2.1 IN THE RIGHT HIP 1) DIAGNOSIS (based on BMD alone): OSTEOPENIA . There has been no significant interval change RESULTS: Lumbar spine (L1-L4): 1.132 g/cm2 , T-score -0.4, Z-score 1.5 . Left Femoral Neck: 0.776 g/cm2 , T-score-1.9, Z-score0. . This is not significantly changed Left Total Hip: 0.787 g/cm2 , T-score-1.7, Z-score 0. . This is not significantly changed Right Femoral Neck: 0.781 g/cm2 , T-score -1.8, Z-score0.1 . This is not significantly changed Right Total Hip: 0.742 g/cm2 , T-score-2.1, Z-score -0.4 . This is not significantly changed *February DEXA- THE LOWEST T-SCORE IS -2.1 IN THE LEFT femoral neck. This has been a statistically significant decrease in the bone density since the previous study. Lumbar spine (L1-L4): 1.107 g/cm2, T-score -0.6, Z-score 1.3 . Left Femoral Neck: 0.740 g/cm2 , T-score-2.1, Z-score-0.3 . Previous BMD(g/cm2 ) 0.784 . The change is statistically significant. Left Total Hip: 0.756 g/cm2 , T-score-2., Z-score -0.4 . Right Femoral Neck: 0.773 g/cm2 , T-score -1.9, Z-score-0.1 . Right Total Hip: 0.75 g/cm2 , T-score-2., Z-score -0.4 1) DIAGNOSIS (based on BMD alone): OSTEOPENIA *January DEXA- Osteopenia of the bilateral hips LUMBAR SPINE: The bone mineral density from L1 through L4 is 1.129 grams per square centimeter which yields a T-score of -0.4. . LEFT HIP: The bone mineral density of the total region of the hip is 0.804 grams per square centimeter which yields a T-score of -1.6. . LEFT FEMORAL NECK: The bone mineral density of the femoral neck is 0.784 grams per square centimeter which yields a T-score of -1.8. . RIGHT HIP: The bone mineral density of the total region of the hip is 0.768 grams per square centimeter which yields a T-score of -1.9. . RIGHT FEMORAL NECK: The bone mineral density of the femoral neck is 0.777 grams per square centimeter which yields a T-score of -1.9. *January DEXA- IMPRESSION: Severe osteopenia in both femoral necks, significant decline in R femoral neck. LUMBAR SPINE: The bone mineral density from L1 through L4 is 0.885 grams per square centimeter which yields a T-score of -1.5. This is 3.9% mproved. LEFT HIP: The bone mineral density of [...] T-score of -2.4. This is 3.9% worse. IMPRESSION and PLAN: 1. PMR/GCA: Steroid-responsive shoulder/hip pain and CT neck with findings suspicious for vasculitis with negative TA biopsies x2. Previously on MTX and actemra without improvement. Stable overall onprednisone 10 mg daily. -she has not noticed any improvement of her symptoms since resuming HCQ. She prefers to discontinueHCQ. I advised that she stop the HCQ now, but resume it if her symptoms worsen. Last HCQ eye exam was normal in 09/2021. - Continue prednisone 10mg/day. - Tylenol prn -r/b/a of meds discussed -check labs today 2. Osteoporosis: In , had traumatic R ankle fracture after a fall at work. From -, on actonel. From January-May (with a break and resumption of medication in December), on fosamax. January DEXA with osteoporosis. January DEXA with osteopenia but decline in BMD in one area. In May, fosamax switched to prolia. In Apr, had a L humeral fracture so advised to start forteo. In January, started forteo. February DEXA with decline. 01/2022 DEXA was stable. - she was advised to stop forteo the end of January, but did not. I advised her to stop it now. -will plan to resume prolia pending lab results and clearance from ortho. She is scheduled for R ankle surgery next week. She will contact me with an update. - Continue calcium and vitamin D supplementation - Check DEXA in January -will check OP labs today 3. PUD: With bleeding gastric ulcer per Jul EGD related to NSAID use - Avoid NSAIDs PO 4. Tobacco use: - Encouraged smoking cessation in the past 5. DDD: - Tylenol prn, avoid NSAIDs PO 6. General health maintenance: - Completed the covid vaccination series in November, [employer]. She also received the booster vaccine. - Advised to continue follow-up with PCP for routine health maintenance and malignancy screening Follow-up in 5 months or sooner if needed. Patient was instructed to call if any questions or concerns. Thank you for allowing me to participate in the care of your patient. I spent a total of 20 minutes on the date of the service which included preparing to see the patient, [id number] patient care, completing clinical documentation, performing a medically appropriate examination, ordering medications, tests, or procedures and communicating results to the patient/fami ly/caregiver. Palma Lovett APRN.CNP documented in this encounterSumma Health [facility]07-29-2022 Instructions* Patient Instructions* Palma Lovett APRN.CNP - 03/17/2022 10:27 AM EDT Please contact me with an update after speaking with ortho about timing of Prolia. documented in this encounterSumma Health Ak[facility] Campus07-20-2022 Hospital Discharge instructions* Discharge Instructions* Sravanthi Wick RN - 03/08/2022 8:00 AM EDT HOLD MULTIVITAMINS FOR 5 DAYS BEFORE SURGERY HOLD IBUPROFEN FOR 24 HOURS BEFORE SURGERY HOLD NAPROXEN, NAPROSYN, ALEVE FOR 3 DAYS BEFORE SURGERY MAY TAKE TYLENOL NEEDED FOR PAIN MAY TAKE ALL OTHER MEDICATIONS PRESCRIBED ARRIVE 2 HOURS PRIOR TO SURGERY BE AT THE HOSPITAL AT 8:00 am use door number 2 Check in at registration using photo ID and insurance card Have a responsible adult that will be able to take you home and will be able to stay with you when you are home. NO FOOD AFTER MIDNIGHT THE NIGHT BEFORE SURGERY This includes candy, gum, and mints MAY have CLEAR LIQUIDS (WATER, APPLE JUICE, CRANBERRY JUICE, BLACK COFFEE, TEA, CARBONATED POP GATORADE) To drink until arrival time for surgery *(NOTE: IF YOU ARE A DIABETIC AVOID HIGH SUGAR BEVERAGES)* Wear loose comfortable clean clothing that you can go home in Leave all jewelry, contact lenses and valuables at home Only one visitor is permitted at this time Bring printed medication list with you Write the date and times of last dose DO NOT USE alcohol, recreational drugs or tobacco products for 24 hours before surgery Please write down any questions that you may have for your surgeon, anesthesiologist, Etc. Please take metoprolol and prednisone the am of surgerythe am of surgery * Attachments The following attachments cannot be sent through Care Everywhere. * Orthopedic Hardware Removal: Post-op ([place]) documented in this encounterSUMMA Work Phone: [phone] 654-442607-18-2022 Miscellaneous Notes* Telephone Encounter - Palma Lovett APRN.CNP - 03/06/2022 8:31 AM EDT The following approved medication requests have been transmitted electronically. Signed Prescriptions Disp Refills FORTEO 20 mcg/dose (600mcg/2.4mL) 2.4 mL 0 Sig: INJECT 0.08ML (20MCG) UNDER THE SKIN ONCE DAILY ROME: No Authorizing Provider: PALMA LOVETT APRN.CNP * Telephone Encounter - Zara Cheema MA - 03/06/2022 8:19 AM EDT Patient has been identified by name and date of : Yes RX INSTRUCTIONS: Patient aware RX will be sent to pharmacy. No need to notify patient. LAST APPOINTMENT: 12/16/2021 UPCOMING APPOINTMENT: 03/17/2022 LABS: Hemoglobin (g/dL) Date Value 09/09/2021 12.2 Hematocrit (%) Date Value 09/09/2021 38.2 WBC (k/uL) Date Value 09/09/2021 14.19 Platelet Count (k/uL) Date Value 09/09/2021 304 AST Date Value Ref Range Status 09/09/2021 18 13 - 35 U/L Final ALT Date Value Ref Range Status 09/09/2021 9 7 - 38 U/L Final Creatinine Date Value Ref Range Status 12/16/2021 0.81 0.58 - 0.96 mg/dL Final No results found for: URICACID Zara Cheema MA documented in this encounterSumma Health [facility] Campus06-20-2022 NoteHNO ID: [id number] Author: PRITI Mcconnell Service: Radiology Author Type: Technologist Type: Progress Notes Filed: 02/06/2022 10:44 AM Note Text: Radiology Service Progress Note PATIENT NAME: Cecelia Quiroz DATE OF SERVICE: February 06, 2022 TIME: 10:44 AM PATIENT IDENTITY VERIFICATION COMPLETED USING TWO (2) IDENTIFIERS: Name and Date of confirmed by patient verbally. FALL SCREENING: Has the patient had 2 falls in the last year or 1 fall with injury or currently using an Ambulatory Assistive Device (Walker, Cane, Wheelchair, Crutches, etc.)? No PATIENT GENDER DATA: Female. status: : No status: NO. PATIENT RELEVANT IMPLANT DATA REVIEWED: Not Applicable RADIOLOGY DEPARTMENT: Bone Density PERIPHERAL IV DATA: Not applicable SIGNED BY: PRITI Mcconnell February 06, 2022 10:44 AMSouthern [facility] [id number] Miscellaneous Notes* Telephone Encounter - Anca Mark Pss - 02/02/2022 10:13 AM EDT Pharmacy verified in [facility] Patient has been identified by name and date of : Yes Patient aware RX will be sent to pharmacy. No need to notify patient. Patient phones for refill(s): Pending Prescriptions Disp Refills AMLODIPINE 5 MG TABLET 90 tablet 1 Sig: Take 1 tablet by mouth once daily. ROME: No Date of last office visit : 12/26/2021 Date of next office visit : Visit date not found Last 2 Encounter Wt Readings: Date: Wt: 12/26/2021 59.4 kg (131 lb) 12/16/2021 58.1 kg (128 lb) Please advise. Anca Mark Pss documented in this encounterSumma Health [facility]05-17-2022 Miscellaneous Notes* Telephone Encounter - Alena Hernandes MA - 01/03/2022 10:03 AM EDT Patient notified via Rezdy message. Alena Hernandes MA * Telephone Encounter - Miah Cottrell DO - 01/03/2022 9:54 AM EDT Please inform patient that CTA of her head was without any acute findings IMPRESSION: No acute intracranial abnormality. Stable chronic changes. No apparent intracranial arterial occlusion, high-grade stenosis, or Aneurysm. Miah Cottrell DO documented in this encounterSumma Health Akron Campus05-16-2022 History of Present illness Narrative* Yazmin Guthrie, RT(R) - 01/02/2022 2:20 PM EDT Radiology Service Progress Note DATE OF SERVICE: January 02, 2022 TIME: 2:55 PM PATIENT IDENTITY VERIFICATION COMPLETED USING TWO (2) STANDARD IDENTIFIERS: Name and Date of confirmed by patient verbally. FALL SCREENING: Has the patient had 2 falls in the last year or 1 fall with injury or currently using an Ambulatory Assistive Device (Walker, Cane, Wheelchair, Crutches, etc.)? No PATIENT GENDER DATA: Female. status: : No status: NO. PATIENT RELEVANT IMPLANT DATA REVIEWED: Yes ALLERGIES: Reviewed and updated CONTRAST ALLERGY: NO. EXAM: CT -CONTRAST INDUCED NEPHROPATHY RISK FACTORS: Patient age > 60 years CREATININE: Creatinine Date Value Ref Range Status 12/16/2021 0.81 0.58 - 0.96 mg/dL Final 09/09/2021 0.70 0.58 - 0.96 mg/dL Final 2021 0.74 0.58 - 0.96 mg/dL Final Estimated Glomerular Filtration Rate Date Value Ref Range Status 12/16/2021 78 >=60 mL/min/1.73m Final Comment: Estimated Glomerular Filtration Rate (eGFR) is calculated using the 2020 CKD-EPI creatinine equation. This equation utilizes serum creatinine, sex, and age as parameters. The creatinine assay has traceable calibration to isotope dilution- mass spectrometry. Refer to KDIGO guidelines for clinical interpretation. In patients with unstable renal function, e.g. those with acute kidney injury, the eGFRmay not accurately reflect actual GFR. eGFR- Date Value Ref Range Status 09/09/2021 >60 Final P.O.C.T. RESULTS: POC done: Yes, See Lab Tab January 02, 2022 TREATMENT: N/A PERIPHERAL IV DATA: Ambulatory: A peripheral IV was started in the Right antecubital site with a Angio cath: 20 gauge. RADIOLOGY DEPARTMENT: CT; Exam(s) Completed: Brain and CTA Brain SIGNATURE: RT Nabor(R) PATIENT NAME: Cecelia Quiroz DATE: January 02, 2022 TIME: 2:55 PM documented in this encounterSumma Health [facility] Campus05-11-2022 History of Past illness Narrative* Problem Noted Date Resolved Date Shortness of breath 12/28/2021 01/19/2023 GCA (giant cell arteritis) 01/18/201204/19 Routine general medical exam ination at a health care facility 02/12/2009 11/27/2011 Overview: 02/12/09 -- transfer [facility] 05/10/2010, yearly physical [facility] [place] 10/29/20072011 Overview: Dr. 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 - entire workup negative. No longer happening. documented as of this encounter (statuses as of 01/20/2023) [facility]05-11-[facility] History of Past illness Narrative* Problem Noted Date Resolved Date Shortness of breath 12/28/2021 01/19/2023 GCA (giant cell arteritis) 01/18/201204/19 Routine general medical exam ination at a health care facility 02/12/2009 11/27/2011 Overview: 02/12/09 -- transfer [facility] 05/10/2010, yearly physical [facility]OUT[facility] - [place] 10/29/20072011 Overview: Dr. 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 - entire workup negative. No longer happening. documented as of this encounter (statuses as of 02/01/2023) [facility]05-[facility] History of Past illness Narrative* Problem Noted Date Resolved Date Shortness of breath 12/28/2021 01/19/2023 GCA (giant cell arteritis) 01/18/201204/19 Routine general medical exam ination at a health care facility 02/12/2009 11/27/2011 Overview: 02/12/09 -- transfer [facility] 05/10/2010, yearly physical [facility] - [place] 10/29/20072011 Overview: Dr. 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 - entire workup negative. No longer happening. documented as of this encounter (statuses as of 02/06/2023) [facility] of Past illness Narrative* Problem Noted Date Resolved Date Shortness of breath 12/28/2021 01/19/2023 GCA (giant cell arteritis) 01/18/201204/19 Routine general medical exam ination at a health care facility 02/12/2009 11/27/2011 Overview: 02/12/09 -- transfer [facility] 05/10/2010, yearly physical [facility] - [place] 10/29/20072011 Overview: Dr. 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 - entire workup negative. No longer happening. documented as of this encounter (statuses as of 02/08/2023) [facility] of Past illness Narrative* Problem Noted Date Diagnosed Date Resolved Date Shortness of breath 12/28/2021 01/20/20 GCA (giant cell arteritis) 01/18/2012 0 04/19/2017 Routine general medical exam ination at a health care facility 02/12/2009 11/27/2011 Overview: 02/12/09 -- transfer [facility] 05/10/2010, yearly physical [facility] - [place] 10/29/2007 Overview: Dr. Rowan Disorder of bone and cartilage 03/05/2016 Overview: Was on Actonel - quit taking it when had problems from pharmacy Allergic rhinitis, cause unspecified 10/29/2007 MVP (mitral valve prolapse) 01/19/2023 Overview: (unable to locate an old echo on the [facility] EMR) Carpal tunnel syndrome 10/28 Hematuria 10/29/2007 Overview: had workup including cystoscopy, etc. - entire workup negative. No longer happening. documented as of this encounter (statuses as of 03/05/2023) [facility] of Past illness Narrative* Problem Noted Date Diagnosed Date Resolved Date Shortness of breath 12/28/2021 01/20/20 23 GCA (giant cell arteritis) 01/18/2012 0 04/19/2017 Routine general medical exam ination at a health care facility 02/12/2009 11/27/2011 Overview: 02/12/09 -- transfer [facility] 05/10/2010, yearly physical [facility] - [place] 10/29/2007 Overview: Dr. Rowan Disorder of bone and cartilage 03/05/2016 Overview: Was on Actonel - quit taking it when had problems from pharmacy Allergic rhinitis, cause unspecified 10/29/2007 MVP (mitral valve prolapse) 01/19/2023 Overview: (unable to locate an old echo on the [facility] EMR) Carpal tunnel syndrome 10/28 Hematuria 10/29/2007 Overview: had workup including cystoscopy, etc. - entire workup negative. No longer happening. documented as of this encounter (statuses as of 03/15/2023) [facility] of Past illness Narrative* Problem Noted Date Diagnosed Date Resolved Date Shortness of breath 12/28/2021 01/20/20 23 GCA (giant cell arteritis) 01/18/2012 0 04/19/2017 Routine general medical exam ination at a health care facility 02/12/2009 11/27/2011 Overview: 02/12/09 -- transfer [facility] 05/10/2010, yearly physical [facility] - [place] 10/29/2007 Overview: Dr. Rowan Disorder of bone and cartilage 03/05/2016 Overview: Was on Actonel - quit taking it when had problems from pharmacy Allergic rhinitis, cause unspecified 10/29/2007 MVP (mitral valve prolapse) 01/19/2023 Overview: (unable to locate an old echo on the [facility] EMR) Carpal tunnel syndrome 10/28 Hematuria 10/29/2007 Overview: had workup including cystoscopy, etc. - entire workup negative. No longer happening. documented as of this encounter (statuses as of 03/29/2023) [facility] of Past illness Narrative* Problem Noted Date Diagnosed Date Resolved Date Shortness of breath 12/28/2021 01/20/20 23 GCA (giant cell arteritis) 01/18/2012 0 04/19/2017 Routine general medical exam ination at a health care facility 02/12/2009 11/27/2011 Overview: 02/12/09 -- transfer [facility] 05/10/2010, yearly physical [facility] - [place] 10/29/2007 Overview: Dr. Rowan Disorder of bone and cartilage 03/05/2016 Overview: Was on Actonel - quit taking it when had problems from pharmacy Allergic rhinitis, cause unspecified 10/29/2007 MVP (mitral valve prolapse) 01/19/2023 Overview: (unable to locate an old echo on the [facility] EMR) Carpal tunnel syndrome 10/28 Hematuria 10/29/2007 Overview: had workup including cystoscopy, etc. - entire workup negative. No longer happening. documented as of this encounter (statuses as of 04/18/2023) [facility] of Past illness Narrative* Problem Noted Date Diagnosed Date Resolved Date Shortness of breath 12/28/2021 01/20/20 23 GCA (giant cell arteritis) 01/18/2012 0 04/19/2017 Routine general medical exam ination at a health care facility 02/12/2009 11/27/2011 Overview: 02/12/09 -- transfer [facility] 05/10/2010, yearly physical [facility] - [place] 10/29/2007 Overview: Dr. Rowan Disorder of bone and cartilage 03/05/2016 Overview: Was on Actonel - quit taking it when had problems from pharmacy Allergic rhinitis, cause unspecified 10/29/2007 MVP (mitral valve prolapse) 01/19/2023 Overview: (unable to locate an old echo on the [facility] EMR) Carpal tunnel syndrome 10/28 Hematuria 10/29/2007 Overview: had workup including cystoscopy, etc. - entire workup negative. No longer happening. documented as of this encounter (statuses as of 04/19/2023) [facility] of [facility] Narrative* Problem Noted Date Diagnosed Date Resolved Date Shortness of breath 12/28/2021 01/20/20 23 GCA (giant cell arteritis) 01/18/2012 0 04/19/2017 Routine general medical exam ination at a health care facility 02/12/2009 11/27/2011 Overview: 02/12/09 -- transfer [facility] 05/10/2010, yearly physical [facility] - [place] 10/29/2007 Overview: Dr. Rowan Disorder of bone and cartilage 03/05/2016 Overview: Was on Actonel - quit taking it when had problems from pharmacy Allergic rhinitis, cause unspecified 10/29/2007 MVP (mitral valve prolapse) 01/19/2023 Overview: (unable to locate an old echo on the [facility] EMR) Carpal tunnel syndrome 10/28 Hematuria 10/29/2007 Overview: had workup including cystoscopy, etc. - entire workup negative. No longer happening. documented as of this encounter (statuses as of 05/08/2023) [facility] Narrative* Problem Noted Date Diagnosed Date Resolved Date Shortness of breath 12/28/2021 01/20/20 23 GCA (giant cell arteritis) 01/18/2012 0 04/19/2017 Routine general medical exam ination at a health care facility 02/12/2009 11/27/2011 Overview: 02/12/09 -- transfer [facility] 05/10/2010, yearly physical R[facility] - [place] 10/29/2007 Overview: Dr. Rowan Disorder of bone and cartilage 03/05/2016 Overview: Was on Actonel - quit taking it when had problems from pharmacy Allergic rhinitis, cause unspecified 10/29/2007 MVP (mitral valve prolapse) 01/19/2023 Overview: (unable to locate an old echo on the [facility] EMR) Carpal tunnel syndrome 10/28 Hematuria 10/29/2007 Overview: had workup including cystoscopy, etc. - entire workup negative. No longer happening. documented as of this encounter (statuses as of 05/14/2023) [facility] of [facility] Narrative* Problem Noted Date Diagnosed Date Resolved Date Shortness of breath 12/28/2021 01/20/20 23 GCA (giant cell arteritis) 01/18/2012 0 04/19/2017 Routine general medical exam ination at a health care facility 02/12/2009 11/27/2011 Overview: 02/12/09 -- transfer [facility] 05/10/2010, yearly physical [facility] - [place] 10/29/2007 Overview: Dr. Rowan Disorder of bone and cartilage 03/05/2016 Overview: Was on Actonel - quit taking it when had problems from pharmacy Allergic rhinitis, cause unspecified 10/29/2007 MVP (mitral valve prolapse) 01/19/2023 Overview: (unable to locate an old echo on the [facility] EMR) Carpal tunnel syndrome 10/28 Hematuria 10/29/2007 Overview: had workup including cystoscopy, etc. - entire workup negative. No longer happening. documented as of this encounter (statuses as of 05/15/2023) [facility] Narrative* Problem Noted Date Diagnosed Date Resolved Date Shortness of breath 12/28/2021 01/20/20 23 GCA (giant cell arteritis) 01/18/2012 0 04/19/2017 Routine general medical exam ination at a health care facility 02/12/2009 11/27/2011 Overview: 02/12/09 -- transfer [facility] 05/10/2010, yearly physical R[facility] - [place] 10/29/2007 Overview: Dr. Rowan Disorder of bone and cartilage 03/05/2016 Overview: Was on Actonel - quit taking it when had problems from pharmacy Allergic rhinitis, cause unspecified 10/29/2007 MVP (mitral valve prolapse) 01/19/2023 Overview: (unable to locate an old echo on the [facility] EMR) Carpal tunnel syndrome 10/28 Hematuria 10/29/2007 Overview: had workup including cystoscopy, etc. - entire workup negative. No longer happening. documented as of this encounter (statuses as of 06/20/2023) [facility] [facility] History of Past illness Narrative* Problem Noted Date Diagnosed Date Resolved Date Shortness of breath 12/28/2021 01/20/20 23 GCA (giant cell arteritis) 01/18/2012 0 04/19/2017 Routine general medical exam ination at a health care facility 02/12/2009 11/27/2011 Overview: 02/12/09 -- transfer from [facility] 05/10/2010, yearly physical ROUTINE [facility] - [place] 10/29/2007 Overview: Dr. Rowan Disorder of bone and cartilage 03/05/2016 Overview: Was on Actonel - quit taking it when had problems from pharmacy Allergic rhinitis, cause unspecified 10/29/2007 MVP (mitral valve prolapse) 01/19/2023 Overview: (unable to locate an old echo on the [facility] EMR) Carpal tunnel syndrome 10/28 Hematuria 10/29/2007 Overview: had workup including cystoscopy, etc. - entire workup negative. No longer happening. documented as of this encounter (statuses as of 06/24/2023) [facility]05-[facility] History of Past illness Narrative* Problem Noted Date Diagnosed Date Resolved Date Shortness of breath 12/28/2021 01/20/20 23 GCA (giant cell arteritis) 01/18/2012 0 04/19/2017 Routine general medical exam ination at a health care facility 02/12/2009 11/27/2011 Overview: 02/12/09 -- transfer from [facility] 05/10/2010, yearly physical ROUTINE [facility] - [place] 10/29/2007 Overview: Dr. Rowan Disorder of bone and cartilage 03/05/2016 Overview: Was on Actonel - quit taking it when had problems from pharmacy Allergic rhinitis, cause unspecified 10/29/2007 MVP (mitral valve prolapse) 01/19/2023 Overview: (unable to locate an old echo on the [facility] EMR) Carpal tunnel syndrome 10/28 Hematuria 10/29/2007 Overview: had workup including cystoscopy, etc. - entire workup negative. No longer happening. documented as of this encounter (statuses as of 06/24/2023) [facility]05-11-[facility] History of Past illness Narrative* Problem Noted Date Diagnosed Date Resolved Date Shortness of breath 12/28/2021 01/20/20 23 GCA (giant cell arteritis) 01/18/2012 0 04/19/2017 Routine general medical exam ination at a health care facility 02/12/2009 11/27/2011 Overview: 02/12/09 -- transfer from [facility] 05/10/2010, yearly physical ROUTINE [facility] - [place] 10/29/2007 Overview: Dr. Rowan Disorder of bone and cartilage 03/05/2016 Overview: Was on Actonel - quit taking it when had problems from pharmacy Allergic rhinitis, cause unspecified 10/29/2007 MVP (mitral valve prolapse) 01/19/2023 Overview: (unable to locate an old echo on the [facility] EMR) Carpal tunnel syndrome 10/28 Hematuria 10/29/2007 Overview: had workup including cystoscopy, etc. - entire workup negative. No longer happening. documented as of this encounter (statuses as of 06/24/2023) [facility]05-11-[facility]22 History of Past illness Narrative* Problem Noted Date Diagnosed Date Resolved Date Shortness of breath 12/28/2021 01/20/20 23 GCA (giant cell arteritis) 01/18/2012 0 04/19/2017 Routine general medical exam ination at a health care facility 02/12/2009 11/27/2011 Overview: 02/12/09 -- transfer from [facility] 05/10/2010, yearly physical ROUTINE [facility] - [place] 10/29/2007 Overview: Dr. Rowan Disorder of bone and cartilage 03/05/2016 Overview: Was on Actonel - quit taking it when had problems from pharmacy Allergic rhinitis, cause unspecified 10/29/2007 MVP (mitral valve prolapse) 01/19/2023 Overview: (unable to locate an old echo on the [facility] EMR) Carpal tunnel syndrome 10/28 Hematuria 10/29/2007 Overview: had workup including cystoscopy, etc. - entire workup negative. No longer happening. documented as of this encounter (statuses as of 06/24/2023) [facility]05-11-[facility] History of Past illness Narrative* Problem Noted Date Diagnosed Date Resolved Date Shortness of breath 12/28/2021 01/20/20 23 GCA (giant cell arteritis) 01/18/2012 0 04/19/2017 Routine general medical exam ination at a health care facility 02/12/2009 11/27/2011 Overview: 02/12/09 -- transfer [facility] 05/10/2010, yearly physical ROUTINE [facility] - [place] 10/29/2007 Overview: Dr. Rowan Disorder of bone and cartilage 03/05/2016 Overview: Was on Actonel - quit taking it when had problems from pharmacy Allergic rhinitis, cause unspecified 10/29/2007 MVP (mitral valve prolapse) 01/19/2023 Overview: (unable to locate an old echo on the [facility] EMR) Carpal tunnel syndrome 10/28 Hematuria 10/29/2007 Overview: had workup including cystoscopy, etc. - entire workup negative. No longer happening. documented as of this encounter (statuses as of 06/24/2023) [facility]05-11-[facility] History of Past illness Narrative* Problem Noted Date Diagnosed Date Resolved Date Shortness of breath 12/28/2021 01/20/20 23 GCA (giant cell arteritis) 01/18/2012 0 04/19/2017 Routine general medical exam ination at a health care facility 02/12/2009 11/27/2011 Overview: 02/12/09 -- transfer from [facility] 05/10/2010, yearly physical ROUTINE [facility] - [place] 10/29/2007 Overview: Dr. Rowan Disorder of bone and cartilage 03/05/2016 Overview: Was on Actonel - quit taking it when had problems from pharmacy Allergic rhinitis, cause unspecified 10/29/2007 MVP (mitral valve prolapse) 01/19/2023 Overview: (unable to locate an old echo on the [facility] EMR) Carpal tunnel syndrome 10/28 Hematuria 10/29/2007 Overview: had workup including cystoscopy, etc. - entire workup negative. No longer happening. documented as of this encounter (statuses as of 07/17/2023) [facility]05-11-[facility] History of Past illness Narrative* Problem Noted Date Diagnosed Date Resolved Date Shortness of breath 12/28/2021 01/20/20 23 GCA (giant cell arteritis) 01/18/2012 0 04/19/2017 Routine general medical exam ination at a health care facility 02/12/2009 11/27/2011 Overview: 02/12/09 -- transfer from [facility] 05/10/2010, yearly physical ROUTINE [facility] - [place] 10/29/2007 Overview: Dr. Rowan Disorder of bone and cartilage 03/05/2016 Overview: Was on Actonel - quit taking it when had problems from pharmacy Allergic rhinitis, cause unspecified 10/29/2007 MVP (mitral valve prolapse) 01/19/2023 Overview: (unable to locate an old echo on the [facility] EMR) Carpal tunnel syndrome 10/28 Hematuria 10/29/2007 Overview: had workup including cystoscopy, etc. - entire workup negative. No longer happening. documented as of this encounter (statuses as of 07/23/2023) [facility]05-11-[facility] History of Past illness Narrative* Problem Noted Date Diagnosed Date Resolved Date Shortness of breath 12/28/2021 01/20/20 23 GCA (giant cell arteritis) 01/18/2012 0 04/19/2017 Routine general medical exam ination at a health care facility 02/12/2009 11/27/2011 Overview: 02/12/09 -- transfer from [facility] 05/10/2010, yearly physical ROUTINE [facility] - [place] 10/29/2007 Overview: Dr. Rowan Disorder of bone and cartilage 03/05/2016 Overview: Was on Actonel - quit taking it when had problems from pharmacy Allergic rhinitis, cause unspecified 10/29/2007 MVP (mitral valve prolapse) 01/19/2023 Overview: (unable to locate an old echo on the [facility] EMR) Carpal tunnel syndrome 10/28 Hematuria 10/29/2007 Overview: had workup including cystoscopy, etc. - entire workup negative. No longer happening. documented as of this encounter (statuses as of 10/05/2023) [facility]05-11[facility] History of Past illness Narrative* Problem Noted Date Diagnosed Date Resolved Date Shortness of breath 12/28/2021 01/20/20 23 GCA (giant cell arteritis) 01/18/2012 0 04/19/2017 Routine general medical exam ination at a health care facility 02/12/2009 11/27/2011 Overview: 02/12/09 -- transfer from [facility] 05/10/2010, yearly physical ROUTINE [facility] - [place] 10/29/2007 Overview: Dr. Rowan Disorder of bone and cartilage 03/05/2016 Overview: Was on Actonel - quit taking it when had problems from pharmacy Allergic rhinitis, cause unspecified 10/29/2007 MVP (mitral valve prolapse) 01/19/2023 Overview: (unable to locate an old echo on the [facility] EMR) Carpal tunnel syndrome 10/28 Hematuria 10/29/2007 Overview: had workup including cystoscopy, etc. - entire workup negative. No longer happening. documented as of this encounter (statuses as of 10/09/2023) [facility]05-11-[facility] History of Past illness Narrative* Problem Noted Date Diagnosed Date Resolved Date Shortness of breath 12/28/2021 01/20/20 23 GCA (giant cell arteritis) 01/18/2012 0 04/19/2017 Routine general medical exam ination at a health care facility 02/12/2009 11/27/2011 Overview: 02/12/09 -- transfer from [facility] 05/10/2010, yearly physical ROUTINE [facility] - [place] 10/29/2007 Overview: Dr. Rowan Disorder of bone and cartilage 03/05/2016 Overview: Was on Actonel - quit taking it when had problems from pharmacy Allergic rhinitis, cause unspecified 10/29/2007 MVP (mitral valve prolapse) 01/19/2023 Overview: (unable to locate an old echo on the [facility] EMR) Carpal tunnel syndrome 10/28 Hematuria 10/29/2007 Overview: had workup including cystoscopy, etc. - entire workup negative. No longer happening. documented as of this encounter (statuses as of 10/10/2023) [facility]05-11-[facility] History of Past illness Narrative* Problem Noted Date Diagnosed Date Resolved Date Shortness of breath 12/28/2021 01/20/20 23 GCA (giant cell arteritis) 01/18/2012 0 04/19/2017 Routine general medical exam ination at a health care facility 02/12/2009 11/27/2011 Overview: 02/12/09 -- transfer from [facility] 05/10/2010, yearly physical ROUTINE [facility] - [place] 10/29/2007 Overview: Dr. Rowan Disorder of bone and cartilage 03/05/2016 Overview: Was on Actonel - quit taking it when had problems from pharmacy Allergic rhinitis, cause unspecified 10/29/2007 MVP (mitral valve prolapse) 01/19/2023 Overview: (unable to locate an old echo on the [facility] EMR) Carpal tunnel syndrome 10/28 Hematuria 10/29/2007 Overview: had workup including cystoscopy, etc. - entire workup negative. No longer happening. documented as of this encounter (statuses as of 10/12/2023) [facility]05-11-[facility] History of Past illness Narrative* Problem Noted Date Diagnosed Date Resolved Date Shortness of breath 12/28/2021 01/20/20 23 GCA (giant cell arteritis) 01/18/2012 0 04/19/2017 Routine general medical exam ination at a health care facility 02/12/2009 11/27/2011 Overview: 02/12/09 -- transfer from [facility] 05/10/2010, yearly physical ROUTINE [facility] - [place] 10/29/2007 Overview: Dr. Rowan Disorder of bone and cartilage 03/05/2016 Overview: Was on Actonel - quit taking it when had problems from pharmacy Allergic rhinitis, cause unspecified 10/29/2007 MVP (mitral valve prolapse) 01/19/2023 Overview: (unable to locate an old echo on the [facility] EMR) Carpal tunnel syndrome 10/28 Hematuria 10/29/2007 Overview: had workup including cystoscopy, etc. - entire workup negative. No longer happening. documented as of this encounter (statuses as of 11/01/2023) [facility]05-11-[facility] History of Past illness Narrative* Problem Noted Date Diagnosed Date Resolved Date Shortness of breath 12/28/2021 01/20/20 23 GCA (giant cell arteritis) 01/18/2012 0 04/19/2017 Routine general medical exam ination at a health care facility 02/12/2009 11/27/2011 Overview: 02/12/09 -- transfer from [facility] 05/10/2010, yearly physical ROUTINE [facility] - [place] 10/29/2007 Overview: Dr. Rowan Disorder of bone and cartilage 03/05/2016 Overview: Was on Actonel - quit taking it when had problems from pharmacy Allergic rhinitis, cause unspecified 10/29/2007 MVP (mitral valve prolapse) 01/19/2023 Overview: (unable to locate an old echo on the [facility] EMR) Carpal tunnel syndrome 10/28 Hematuria 10/29/2007 Overview: had workup including cystoscopy, etc. - entire workup negative. No longer happening. documented as of this encounter (statuses as of 12/04/2023) [facility]05-10-2022 Miscellaneous Notes* Telephone Encounter - Sravanthi Carlisle LPN - 12/27/2021 2:29 PM EDT Pt. informed. Sravanthi Carlisle LPN * Telephone Encounter - Miah Cottrell DO - 12/27/2021 2:06 PM EDT Yes, please notify her that she should be taking 50 mg once a day of metoprolol as below Miah Cottrell DO The following approved medication requests have been transmitted electronically. Signed Prescriptions Disp Refills metoprolol succinate ER (TOPROL XL) 50 mg 24 hr tablet 90 tablet 3 Sig: Take 1 tablet by mouth once daily. ROME: No Authorizing Provider: MIAH COTTRELL DO * Telephone Encounter - Carmen Duke Pss - 12/26/2021 4:50 PM EDT Cecelia Quiroz is calling Miah Cottrell DO today Patient is calling because she stated she called [facility] and told them she needs a prescription for Metoprolol 50 mg; she thought the doctor had sent a new prescription. Patient wants to confirm that she is supposed to be taking Metoprolol 50 mg; take one tablet daily? If so, please send a corrected script to [facility]. Please follow up with the patient either way. metoprolol succinate ER (TOPROL XL) 25 mg 24 hr tablet 90 tablet 1 08/05/2021 Sig: Take 1 tablet by mouth once daily. Patient taking differently: Take 50 mg by mouth once daily. Sent to pharmacy as: metoprolol succinate ER (TOPROL XL) 25 mg 24 hr tablet Class: Normal Route: ORAL Order: [id number] E-Prescribing Status: Receipt confirmed by pharmacy (08/05/2021 2:33 PM EST) Patient has been identified by name and birthdate. Duration of symptoms: N/A Person calling: self Call patient at: on cell [phone] (home) [phone] (cell) Was an appointment scheduled: No Closing statement: Results or non-symptom based questions: Thank you for calling [facility], your call will be returned within the next business day. Carmen Duke Pss documented in this encounterSumma Health [facility]-2022 Miscellaneous Notes* Telephone Encounter - Prema Miguel MA - 12/19/2021 8:15 AM EDT Patient notified of results, verbalizes understanding of instructions. Prema Miguel MA * Telephone Encounter - Palma Lovett APRN.CNP - 12/19/2021 7:07 AM EDT Please call and inform the patient that Dr. Bradford is agreeable to her continuing the Forteo throughAugust, given she was off the medication for two months. We can discuss things further at her next visit. Please advise that her vit d is mildly low. She should increase her vit d by 1,000 units daily OTC.Her sed rate (marker of inflammation) is mildly elevated, but stable. The remaining lab results arewithin acceptable limits. Thanks, Palma Lovett APRN.IRINEO documented in this encounterSumma Health [facility]04-29-2022 History of Present illness Narrative* Palma Lovett APRN.CNP - 12/16/2021 1:31 PM EDT Orders Only on 12/16/21 CONSULT TO PHYSICAL THERAPY [facility] Palma Lovett APRN.CNP documented in this encounterSumma Health [facility]04-29-2022 NoteIMPRESSION: 1. Moderate diffuse cervical spondylosis with interval progression. Agency Legal Counsel: P[facility] Transcribe Date/Time: Dec 16 2021 1:18P Dictated by : ANNIKA MONTALVO MD This examination was interpreted and the report reviewed and electronically signed by: ANNIKA MONTALVO MD on Dec 16 2021 1:19PM EST [id number] History of Present illness Narrative* Dorene Mcgraw, RT(R) - 12/16/2021 11:15 AM EDT Radiology Service Progress Note PATIENT NAME: Cecelia Quiroz DATE OF SERVICE: December 16, 2021 TIME: 11:27 AM PATIENT IDENTITY VERIFICATION COMPLETED USING TWO (2) IDENTIFIERS: Name and Date of confirmedby patient verbally. FALL SCREENING: Has the patient had 2 falls in the last year or 1 fall with injury or currently using an Ambulatory Assistive Device (Walker, Cane, Wheelchair, Crutches, etc.)? No PATIENT GENDER DATA: Female. status: : No status: NO. PATIENT RELEVANT IMPLANT DATA REVIEWED: Not Applicable RADIOLOGY DEPARTMENT: General X-ray: Exam(s) Completed: Spine X-Ray(s): Cervical AP / LAT / OBL PERIPHERAL IV DATA: Not applicable SIGNED BY: RT Temo(R) December 16, 2021 11:27 AM documented in this encounterSumma Health [facility]04-29-2022 History of Present illness Narrative* Palma Lovett APRN.SHINGLE INSPECTOR - 12/16/2021 10:30 AM EDT Follow-up [facility] Rheumatology appointment for GCA, PMR and osteoporosis. 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 With negative TA biopsies x2 - From Jun-Sep, on MTX which was stopped due to inefficacy - In October, started on acemtra which was stopped after 3 infusions - In Apr, fell off a trailer and broke L humerus - In Jul, seen by Dr. Gonzalez. On baseline prednisone 10mg/day. Given medrol dose pack for flarewith plans to return to prednisone 10mg/day thereafter. She was hesitant to reduce baseline pred 10mg/day further given previous attempts to taper led to flares of pain and headache - On 07/28/19, received prolia - In October, reported baseline pain in the R>L shoulders/arms. Not flaring. On pred 10mg/day - In January and Apr, reported stable PMR on pred 10mg/day - In Aug, reported taking pred 10mg/day. Taking forteo. No interim fracture. - In February, started on HCQ given active pain. pred 10mg/day continued - On 05/16/21, reported no improvement in L shoulder, neck and base of skull pain w/pred 20mg/day. Referred to spine and PT - in 05/2021, reports taking pred 10mg/day. Continues to have significant pain awakening her at night, located in L side of the neck/base of skull - Has continued forteo daily - Hx of PUD PAST MEDICAL HISTORY Diagnosis Date Autoimmune disease (HCC) Cancer (HCC) 1982 Uterine Depression Disorder of bone and cartilage, unspecified Diverticulitis of colon (without mention of hemorrhage)(562.11) 2003 GCA (giant cell arteritis) ([facility]) bx negative Glaucoma Hematuria 1999 had workup including cystoscopy, etc. - entire workup negative. No longer happening. IBS (irritable bowel syndrome) Iron deficiency anemia, unspecified ? related to UGI source from NSAID's PMR (polymyalgia rheumatica) ([facility]) Raynaud's disease /phenomenon Steroid long-term use Tobacco use disorder PAST SURGICAL HISTORY Procedure Laterality Date ABDOMINAL SURGERY HX APPENDECTOMY 1982 incidental APPENDECTOMY HX BREAST SURGERY HX CATARACT EXTRACTION HX bilateral CHOLECYSTECTOMY Cholecystectomy COLONOSCOPY 2012 COLONOSCOPY FLX DX W/COLLJ SPEC WHEN PFRMD 05/09/2021 ESOPHAGOGASTRODUODENOSCOPY TRANSORAL DIAGNOSTIC 07/05/2015 EGD ESOPHAGOGASTRODUODENOSCOPY TRANSORAL DIAGNOSTIC 05/09/2021 EYE SURGERY HX FRACTURE SURGERY LEFT HEART CATH,PERCUTANEOUS 2011 Cardiac cath, L heart. Normal PAST SURGICAL HISTORY OF 1987 ulnar ner transferred PAST SURGICAL HISTORY OF 1990 bartholin cyst on vagina PAST SURGICAL HISTORY OF 2005 bone spur to left shoulder PAST SURGICAL HISTORY OF 2007 left knee -- torn meniscus ([place]) PAST SURGICAL HISTORY OF 2011 ORIF R ankle PAST SURGICAL HISTORY OF 2000 Bartholin cyst excised TOTAL ABDOMINAL HYSTERECT W/WO RMVL TUBE OVARY 1982 cervical cancer, still has ovaries VAGINAL HYSTERECTOMY ALLERGIES No Known Allergies INTERVAL HISTORY She is here for follow up. She is taking prednisone 10 mg daily. She resumed HCQ after the MAGGIE. She has not noticed any improvement of her symptoms with this. No falls or fractures since the MAGGIE. She resumed forteo 3 months ago. She was off for two months prior to this because she ran out of medication. She is taking vit d. She takes tylenol occasionally for pain. Sites of pain: neck, shoulders, b/l upper extremities, pain rated 7/10 Muscle weakness: b/l upper and lower extremity muscles Headaches: +to occipital area, rare to temples Scalp tenderness: yes Vision changes: none Jaw claudication: none Joint swelling: none EMS: none No recent infections. Tolerating meds. Answers for HPI/ROS submitted by the patient on 12/12/2021 Fever : No Recent Unintentional Weight Change: No Eye Pain: No Eye Redness: Yes Vision Disturbance: Yes Eye Dryness: Yes Nose Bleeds: No Sores in your Mouth: No Trouble Swallowing: No Dry Mouth: No Chest Pain: No Leg Swelling: No A Cough: No Shortness of Breath: No Heartburn: No Abdominal Pain: Yes Diarrhea: Yes Black Tarry Stools: No Blood in Urine: No Pain or Burning with Urination: No Joint Pain or Stiffness: Yes Muscle Weakness: Yes Muscle Aches: Yes Joint Swelling: No Morning Stiffness in Joints: Yes A Rash: No Skin Color Changes: No Hair Loss: No Nail Changes: No Headaches: Yes Numbness: No Memory Loss: Yes Swollen Glands: No Current Outpatient Medications Medication Sig hydrOXYchloroQUINE (PLAQUENIL) 200 mg tablet Take 1 tablet by mouth once daily. predniSONE (DELTASONE) 10 mg tablet Take 1 tablet by mouth once daily. Take with food. amLODIPine (NORVASC) 5 mg tablet Take 1 tablet by mouth once daily. metoprolol succinate ER (TOPROL XL) 25 mg 24 hr tablet Take 1 tablet by mouth once daily. Teriparatide (FORTEO) 20 mcg/dose (600mcg/2.4mL) Inject 20mcg subcutaneously once daily. calcium carb/magnesium oxid/D3 (CALCIUM MAGNESIUM + D ORAL) Take 1 tablet by mouth once daily. polyethylene glycol 3350 (MIRALAX, GLYCOLAX) 17 gram/dose powder Use as directed for Miralax / Gatorade Bowel Prep Kit Bisacodyl (DULCOLAX) 5 mg tab Use as directed for Miralax / Gatorade Bowel Prep Kit predniSONE (DELTASONE) 10 mg tablet Take 1 tablet by mouth once daily. Take with food. primidone (MYSOLINE) 250 mg tablet Take 1 tablet by mouth daily at bedtime. loperamide (IMODIUM) 2 mg cap(s) Take 2 mg by mouth four times daily as needed. CHOLESTYRAMINE, BULK, MISC 1 Scoop once daily. insulin needles, DISPOSABLE, (PEN NEEDLE) 31 gauge x 5/16 Use as directed to administer Forteo cholecalciferol, vitamin D3, (VITAMIN D3 ORAL) Take by mouth once daily. TRAVOPROST, BENZALKONIUM, (TRAVATAN OPHTHALMIC) Use in eyes. One drop daily at bedtime in both eyes. No current facility-administered medications for this visit. FAMILY HISTORY Problem Relation Age of Onset Diabetes Father late in life Coronary Artery Disease Father Hx of [place], age 71 Tremor Mother Hypertension Mother Cancer Brother Cancer Brother lymphoma - 55; h/o kidney transplant Cancer Brother Mestatic Aneurysm Sister brain Lung Cancer Sister dies at 52 Bipolar disorder Son Tremor Son Colon Cancer Niece Tremor Niece Hyperlipidemia No Family History Blood Clots No Family History Blood Disease No Family History Factor 5 Leiden No Family History DVT No Family History Stroke No Family History Schizophrenia No Family History Systemic Lupus Erythematosus No Family History Multiple Sclerosis No Family History Alzheimer's Disease No Family History Parkinson s Disease No Family History SOCIAL HISTORY: Lives in [place]. Works. Tobacco use: 1 ppd Alcohol use: None PHYSICAL EXAM: BP 112/62 Pulse 94 Temp 36.2 C (97.1 F) (Temporal) Ht 166.4 cm (5' 5.5) Wt 58.1 kg (128 lb) BMI 20.98 kg/m CONSTITUTIONAL: Well-appearing, in NAD. SKIN: No rash. No alopecia. No sclerodactyly, calcinosis, telangiectasias, digital ulcers, or skin thickening. EYES: No scleral icterus or conjunctivitis, PERRLA. HENT and Mouth: External ears normal. No tenderness to palpation of the temples bilaterally or scalp. RESPIRATORY: Normal breath sounds, clear to auscultation. CARDIOVASCULAR: Regular rate and rhythm, no murmurs or rubs GASTROENTEROLOGY: Normal bowel sounds. Abdomen is soft and non-tender. EXTREMITIES/LYMPH: No edema bilaterally NEURO: Awake, alert and oriented, antalgic gait MUSCULOSKELETAL: JOINT APPEARANCE: No erythema or warmth of any upper or lower extremity joint. RANGE OF MOTION: Able to fully close fists and curl fingers bilaterally. SWOLLEN JOINTS/SYNOVITIS: No synovitis of any joint. TENDER JOINTS: L ankle No tenderness to muscles. Muscle strength intact. No tenderness to spine or SI joints. *October Widespread Pain Index: 12 (0-19) Symptoms Severity Scale: 4 (0-12) WPI>7 and SS Scale>5 OR WPI 3-6 and SS Scale >9 consistent with fibromyalgia Labs reviewed and discussed with the patient: Component Latest Ref Rng & Units 09/09/2021 WBC 3.70 - 11.00 k/uL 14.19 (H) RBC 3.90 - 5.20 m/uL 3.86 (L) Hemoglobin 11.5 - 15.5 g/dL 12.2 Hematocrit 36.0 - 46.0 % 38.2 MCV 80.0 - 100.0 fL 99.0 MCH 26.0 - 34.0 pG 31.6 MCHC 30.5 - 36.0 g/dL 31.9 RDW-CV 11.5 - 15.0 % 12.8 Platelet Count 150 - 400 k/uL 304 MPV 9.0 - 12.7 fL 9.8 Neut% % 81.9 Abs Neut (ANC) 1.45 - 7.50 k/uL 11.62 (H) Lymph% % 12.3 Abs Lymph 1.00 - 4.00 k/uL 1.75 Meeker% % 5.4 Abs Meeker <0.87 k/uL 0.77 Eosin% % 0.1 Abs Eosin <0.46 k/uL <0.03 Baso% % 0.3 Abs Baso <0.11 k/uL 0.04 Nucleated Reds 0 /100 WBC 0.0 Absolute nRBC <0.01 k/uL <0.01 Diff Type Auto Diff Creatinine 0.58 - 0.96 mg/dL 0.70 eGFR- >60 eGFR-All Other Races . >60 AST 13 - 35 U/L 18 ALT 7 - 38 U/L 9 Albumin 3.9 - 4.9 g/dL 4.0 WSR 0 - 20 mm/hr 47 (H) CRP <0.9 mg/dL 1.1 (H) Vitamin D 25 Hydroxy 31.0 - 80.0 ng/mL 44.3 Component Latest Ref Rng & Units 05/31/2021 Vitamin D 25 Hydroxy 31.0 - 80.0 ng/mL 23.4 (L) STUDIES: *February DEXA- THE LOWEST T-SCORE IS -2.1 IN THE LEFT femoral neck. This has been a statistically significant decrease in the bone density since the previous study. Lumbar spine (L1-L4): 1.107 g/cm2, T-score -0.6, Z-score 1.3 . Left Femoral Neck: 0.740 g/cm2 , T-score-2.1, Z-score-0.3 . Previous BMD(g/cm2 ) 0.784 . The change is statistically significant. Left Total Hip: 0.756 g/cm2 , T-score-2., Z-score -0.4 . Right Femoral Neck: 0.773 g/cm2 , T-score -1.9, Z-score-0.1 . Right Total Hip: 0.75 g/cm2 , T-score-2., Z-score -0.4 1) DIAGNOSIS (based on BMD alone): OSTEOPENIA *January DEXA- Osteopenia of the bilateral hips LUMBAR SPINE: The bone mineral density from L1 through L4 is 1.129 grams per square centimeter which yields a T-score of -0.4. . LEFT HIP: The bone mineral density of the total region of the hip is 0.804 grams per square centimeter which yields a T-score of -1.6. . LEFT FEMORAL NECK: The bone mineral density of the femoral neck is 0.784 grams per square centimeter which yields a T-score of -1.8. . RIGHT HIP: The bone mineral density of the total region of the hip is 0.768 grams per square centimeter which yields a T-score of -1.9. . RIGHT FEMORAL NECK: The bone mineral density of the femoral neck is 0.777 grams per square centimeter which yields a T-score of -1.9. *January DEXA- IMPRESSION: Severe osteopenia in both femoral necks, significant decline in R femoral neck. LUMBAR SPINE: The bone mineral density from L1 through L4 is 0.885 grams per square centimeter which yields a T-score of -1.5. This is 3.9% mproved. LEFT HIP: The bone mineral density of [...] T-score of -2.4. This is 3.9% worse. IMPRESSION and PLAN: 1. PMR/GCA: Steroid-responsive shoulder/hip pain and CT neck with findings suspicious for vasculitis with negative TA biopsies x2. Previously on MTX and actemra without improvement. Stable overall onprednisone 10 mg daily. -continue HCQ. Last HCQ eye exam was normal in 09/2021. - Continue prednisone 10mg/day. - Tylenol prn -r/b/a of meds discussed -check labs today 2. Osteoporosis: In , had traumatic R ankle fracture after a fall at work. From -, on actonel. From January-May (with a break and resumption of medication in December), on fosamax. January DEXA with osteoporosis. January DEXA with osteopenia but decline in BMD in one area. In May, fosamax switched to prolia. In Apr, had a L humeral fracture so advised to start forteo. In January, started forteo. February DEXA with decline. - Continue forteo to end in January. - Continue calcium and vitamin D supplementation - Check DEXA in January-order placed and she was reminded to schedule on the same machine as prior. -will check OP labs today 3. PUD: With bleeding gastric ulcer per Dec '11 EGD related to NSAID use - Avoid NSAIDs PO 4. Tobacco use: - Encouraged smoking cessation in the past 5. DDD: - Tylenol prn, avoid NSAIDs PO 6. General health maintenance: - Completed the covid vaccination series in November, [employer]. She also received the booster vaccine. - Advised to continue follow-up with PCP for routine health maintenance and malignancy screening Follow-up in 3 months with me or sooner if needed. Patient was instructed to call if any questions or concerns. Thank you for allowing me to participate in the care of your patient. I spent a total of 20 minutes on the date of the service which included preparing to see the patient, [id number] patient care, completing clinical documentation, performing a medically appropriate examination, ordering medications, tests, or procedures and communicating results to the patient/fami ly/caregiver. Palma Lovett APRN.IRINEO documented [facility] Instructions* Patient Instructions* Palma Lovett APRN.CNP - 12/16/2021 10:30 AM EDT Please schedule bone density test on the same machine as prior after 02/01/2022 documented in this encounterSum[facility]31-2012 History of Past illness Narrative* Problem Noted Date Resolved Date GCA (giant cell arteritis) 01/18/201204/19 Polymyalgia rheumatica 01/10/2012 7 Routine general medical exam ination at a health care facility 02/12/2009 11/27/2011 Overview: 02/12/09 -- transfer [facility] 05/10/2010, yearly physical [facility] 10/29/20072011 Overview: Dr. Rowan Disorder of bone and cartilage 0 03/05/2016 Overview: Was on Actonel - quit taking it when had problems from pharmacy Allergic rhinitis, cause unspecified 10/29/2007 Carpal tunnel syndrome 8 Hematuria 10/29/2007 Overview: had workup including cystoscopy, etc. - entire workup negative. No longer happening. documented as of this encounter (statuses as of 12/16/2021) [facility] of Past illness Narrative* Problem Noted Date Resolved Date GCA (giant cell arteritis) 01/18/201204/19 Polymyalgia rheumatica 01/10/2012 7 Routine general medical exam ination at a health care facility 02/12/2009 11/27/2011 Overview: 02/12/09 -- transfer [facility] 05/10/2010, yearly physical [facility] - [place] 10/29/20072011 Overview: Dr. Rowan Disorder of bone and cartilage 0 03/05/2016 Overview: Was on Actonel - quit taking it when had problems from pharmacy Allergic rhinitis, cause unspecified 10/29/2007 Carpal tunnel syndrome 8 Hematuria 10/29/2007 Overview: had workup including cystoscopy, etc. - entire workup negative. No longer happening. documented as of this encounter (statuses as of 12/16/2021) [facility] of Past illness Narrative* Problem Noted Date Resolved Date GCA (giant cell arteritis) 01/18/201204/19 Polymyalgia rheumatica 01/10/2012 7 Routine general medical exam ination at a health care facility 02/12/2009 11/27/2011 Overview: 02/12/09 -- transfer [facility] 05/10/2010, yearly physical [facility] - [place] 10/29/20072011 Overview: Dr. Rowan Disorder of bone and cartilage 0 03/05/2016 Overview: Was on Actonel - quit taking it when had problems from pharmacy Allergic rhinitis, cause unspecified 10/29/2007 Carpal tunnel syndrome 8 Hematuria 10/29/2007 Overview: had workup including cystoscopy, etc. - entire workup negative. No longer happening. documented as of this encounter (statuses as of 12/19/2021) [facility] of [facility] illness Narrative* Problem Noted Date Resolved Date GCA (giant cell arteritis) 01/18/201204/19 Polymyalgia rheumatica 01/10/2012 7 Routine general medical exam ination at a health care facility 02/12/2009 11/27/2011 Overview: 02/12/09 -- transfer [facility] 05/10/2010, yearly physical [facility] - [place] 10/29/20072011 Overview: Dr. Rowan Disorder of bone and cartilage 0 03/05/2016 Overview: Was on Actonel - quit taking it when had problems from pharmacy Allergic rhinitis, cause unspecified 10/29/2007 Carpal tunnel syndrome 8 Hematuria 10/29/2007 Overview: had workup including cystoscopy, etc. - entire workup negative. No longer happening. documented as of this encounter (statuses as of 12/27/2021) [facility] illness Narrative* Problem Noted Date Resolved Date GCA (giant cell arteritis) 01/18/201204/19 Polymyalgia rheumatica 01/10/2012 7 Routine general medical exam ination at a health care facility 02/12/2009 11/27/2011 Overview: 02/12/09 -- transfer [facility] 05/10/2010, yearly physical [facility] - [place] 10/29/20072011 Overview: Dr. Rowan Disorder of bone and cartilage 0 03/05/2016 Overview: Was on Actonel - quit taking it when had problems from pharmacy Allergic rhinitis, cause unspecified 10/29/2007 Carpal tunnel syndrome 8 Hematuria 10/29/2007 Overview: had workup including cystoscopy, etc. - entire workup negative. No longer happening. documented as of this encounter (statuses as of 01/03/2022) [facility] illness Narrative* Problem Noted Date Resolved Date GCA (giant cell arteritis) 01/18/201204/19 Polymyalgia rheumatica 01/10/2012 7 Routine general medical exam ination at a health care facility 02/12/2009 11/27/2011 Overview: 02/12/09 -- transfer [facility] 05/10/2010, yearly physical [facility] - [place] 10/29/20072011 Overview: Dr. Rowan Disorder of bone and cartilage 0 03/05/2016 Overview: Was on Actonel - quit taking it when had problems from pharmacy Allergic rhinitis, cause unspecified 10/29/2007 Carpal tunnel syndrome 8 Hematuria 10/29/2007 Overview: had workup including cystoscopy, etc. - entire workup negative. No longer happening. documented as of this encounter (statuses as of 01/03/2022) [facility] illness Narrative* Problem Noted Date Resolved Date GCA (giant cell arteritis) 01/18/201204/19 Polymyalgia rheumatica 01/10/2012 7 Routine general medical exam ination at a health care facility 02/12/2009 11/27/2011 Overview: 02/12/09 -- transfer [facility] 05/10/2010, yearly physical [facility] - [place] 10/29/20072011 Overview: Dr. Rowan Disorder of bone and cartilage 0 03/05/2016 Overview: Was on Actonel - quit taking it when had problems from pharmacy Allergic rhinitis, cause unspecified 10/29/2007 Carpal tunnel syndrome 8 Hematuria 10/29/2007 Overview: had workup including cystoscopy, etc. - entire workup negative. No longer happening. documented as of this encounter (statuses as of 02/02/2022) [facility] Narrative* Problem Noted Date Resolved Date GCA (giant cell arteritis) 01/18/201204/19 Polymyalgia rheumatica 01/10/2012 7 Routine general medical exam ination at a health care facility 02/12/2009 11/27/2011 Overview: 02/12/09 -- transfer [facility] 05/10/2010, yearly physical [facility] - [place] 10/29/20072011 Overview: Dr. Rowan Disorder of bone and cartilage 0 03/05/2016 Overview: Was on Actonel - quit taking it when had problems from pharmacy Allergic rhinitis, cause unspecified 10/29/2007 Carpal tunnel syndrome 8 Hematuria 10/29/2007 Overview: had workup including cystoscopy, etc. - entire workup negative. No longer happening. documented as of this encounter (statuses as of 03/06/2022) [facility] Narrative* Problem Noted Date Resolved Date GCA (giant cell arteritis) 01/18/201204/19 Polymyalgia rheumatica 01/10/2012 7 Routine general medical exam ination at a health care facility 02/12/2009 11/27/2011 Overview: 02/12/09 -- transfer [facility] 05/10/2010, yearly physical [facility] - [place] 10/29/20072011 Overview: Dr. Rowan Disorder of bone and cartilage 0 03/05/2016 Overview: Was on Actonel - quit taking it when had problems from pharmacy Allergic rhinitis, cause unspecified 10/29/2007 Carpal tunnel syndrome 8 Hematuria 10/29/2007 Overview: had workup including cystoscopy, etc. - entire workup negative. No longer happening. documented as of this encounter (statuses as of 03/17/2022) [facility] Narrative* Problem Noted Date Resolved Date GCA (giant cell arteritis) 01/18/201204/19 Polymyalgia rheumatica 01/10/2012 7 Routine general medical exam ination at a health care facility 02/12/2009 11/27/2011 Overview: 02/12/09 -- transfer from [facility] 05/10/2010, yearly physical [facility] - [place] 10/29/20072011 Overview: Dr. Rowan Disorder of bone and cartilage 0 03/05/2016 Overview: Was on Actonel - quit taking it when had problems from pharmacy Allergic rhinitis, cause unspecified 10/29/2007 Carpal tunnel syndrome 8 Hematuria 10/29/2007 Overview: had workup including cystoscopy, etc. - entire workup negative. No longer happening. documented as of this encounter (statuses as of 03/21/2022) [facility] Narrative* Problem Noted Date Resolved Date GCA (giant cell arteritis) 01/18/201204/19 Polymyalgia rheumatica 01/10/2012 7 Routine general medical exam ination at a health care facility 02/12/2009 11/27/2011 Overview: 02/12/09 -- transfer from [facility] 05/10/2010, yearly physical [facility] - [place] 10/29/20072011 Overview: Dr. Rowan Disorder of bone and cartilage 0 03/05/2016 Overview: Was on Actonel - quit taking it when had problems from pharmacy Allergic rhinitis, cause unspecified 10/29/2007 Carpal tunnel syndrome 8 Hematuria 10/29/2007 Overview: had workup including cystoscopy, etc. - entire workup negative. No longer happening. documented as of this encounter (statuses as of 04/04/2022) [facility] Narrative* Problem Noted Date Resolved Date GCA (giant cell arteritis) 01/18/201204/19 Polymyalgia rheumatica 01/10/2012 7 Routine general medical exam ination at a health care facility 02/12/2009 11/27/2011 Overview: 02/12/09 -- transfer [facility] 05/10/2010, yearly physical [facility] - [place] 10/29/20072011 Overview: Dr. Rowan Disorder of bone and cartilage 0 03/05/2016 Overview: Was on Actonel - quit taking it when had problems from pharmacy Allergic rhinitis, cause unspecified 10/29/2007 Carpal tunnel syndrome 8 Hematuria 10/29/2007 Overview: had workup including cystoscopy, etc. - entire workup negative. No longer happening. documented as of this encounter (statuses as of 04/19/2022) [facility] Narrative* Problem Noted Date Resolved Date GCA (giant cell arteritis) 01/18/201204/19 Polymyalgia rheumatica 01/10/2012 7 Routine general medical exam ination at a health care facility 02/12/2009 11/27/2011 Overview: 02/12/09 -- transfer [facility] 05/10/2010, yearly physical [facility] - [place] 10/29/20072011 Overview: Dr. Rowan Disorder of bone and cartilage 0 03/05/2016 Overview: Was on Actonel - quit taking it when had problems from pharmacy Allergic rhinitis, cause unspecified 10/29/2007 Carpal tunnel syndrome 8 Hematuria 10/29/2007 Overview: had workup including cystoscopy, etc. - entire workup negative. No longer happening. documented as of this encounter (statuses as of 05/02/2022) [facility] Narrative* Problem Noted Date Resolved Date GCA (giant cell arteritis) 01/18/201204/19 Polymyalgia rheumatica 01/10/2012 7 Routine general medical exam ination at a health care facility 02/12/2009 11/27/2011 Overview: 02/12/09 -- transfer from [facility] 05/10/2010, yearly physical [facility] - [place] 10/29/20072011 Overview: Dr. Rowan Disorder of bone and cartilage 0 03/05/2016 Overview: Was on Actonel - quit taking it when had problems from pharmacy Allergic rhinitis, cause unspecified 10/29/2007 Carpal tunnel syndrome 8 Hematuria 10/29/2007 Overview: had workup including cystoscopy, etc. - entire workup negative. No longer happening. documented as of this encounter (statuses as of 05/08/2022) [facility] Narrative* Problem Noted Date Resolved Date GCA (giant cell arteritis) 01/18/201204/19 Polymyalgia rheumatica 01/10/2012 7 Routine general medical exam ination at a health care facility 02/12/2009 11/27/2011 Overview: 02/12/09 -- transfer from [facility] 05/10/2010, yearly physical [facility] - [place] 10/29/20072011 Overview: Dr. Rowan Disorder of bone and cartilage 0 03/05/2016 Overview: Was on Actonel - quit taking it when had problems from pharmacy Allergic rhinitis, cause unspecified 10/29/2007 Carpal tunnel syndrome 8 Hematuria 10/29/2007 Overview: had workup including cystoscopy, etc. - entire workup negative. No longer happening. documented as of this encounter (statuses as of 05/18/2022) [facility] Narrative* Problem Noted Date Resolved Date GCA (giant cell arteritis) 01/18/201204/19 Polymyalgia rheumatica 01/10/2012 7 Routine general medical exam ination at a health care facility 02/12/2009 11/27/2011 Overview: 02/12/09 -- transfer [facility] 05/10/2010, yearly physical [facility] - [place] 10/29/20072011 Overview: Dr. Rowan Disorder of bone and cartilage 0 03/05/2016 Overview: Was on Actonel - quit taking it when had problems from pharmacy Allergic rhinitis, cause unspecified 10/29/2007 Carpal tunnel syndrome 8 Hematuria 10/29/2007 Overview: had workup including cystoscopy, etc. - entire workup negative. No longer happening. documented as of this encounter (statuses as of 05/22/2022) [facility]arrative* Problem Noted Date Resolved Date GCA (giant cell arteritis) 01/18/201204/19 Polymyalgia rheumatica 01/10/2012 7 Routine general medical exam ination at a health care facility 02/12/2009 11/27/2011 Overview: 02/12/09 -- transfer [facility] 05/10/2010, yearly physical [facility] - [place] 10/29/20072011 Overview: Dr. Rowan Disorder of bone and cartilage 0 03/05/2016 Overview: Was on Actonel - quit taking it when had problems from pharmacy Allergic rhinitis, cause unspecified 10/29/2007 Carpal tunnel syndrome 8 Hematuria 10/29/2007 Overview: had workup including cystoscopy, etc. - entire workup negative. No longer happening. documented as of this encounter (statuses as of 06/25/2022) [facility]arr[facility]* Problem Noted Date Resolved Date GCA (giant cell arteritis) 01/18/201204/19 Polymyalgia rheumatica 01/10/2012 7 Routine general medical exam ination at a health care facility 02/12/2009 11/27/2011 Overview: 02/12/09 -- transfer from [facility] 05/10/2010, yearly physical [facility] - [place] 10/29/20072011 Overview: Dr. Rowan Disorder of bone and cartilage 0 03/05/2016 Overview: Was on Actonel - quit taking it when had problems from pharmacy Allergic rhinitis, cause unspecified 10/29/2007 Carpal tunnel syndrome 8 Hematuria 10/29/2007 Overview: had workup including cystoscopy, etc. - entire workup negative. No longer happening. documented as of this encounter (statuses as of 07/03/2022) [facility]arrative* Problem Noted Date Resolved Date GCA (giant cell arteritis) 01/18/201204/19 Polymyalgia rheumatica 01/10/2012 7 Routine general medical exam ination at a health care facility 02/12/2009 11/27/2011 Overview: 02/12/09 -- transfer from [facility] 05/10/2010, yearly physical [facility] - [place] 10/29/20072011 Overview: Dr. Rowan Disorder of bone and cartilage 0 03/05/2016 Overview: Was on Actonel - quit taking it when had problems from pharmacy Allergic rhinitis, cause unspecified 10/29/2007 Carpal tunnel syndrome 8 Hematuria 10/29/2007 Overview: had workup including cystoscopy, etc. - entire workup negative. No longer happening. documented as of this encounter (statuses as of 07/07/2022) [facility]* Problem Noted Date Resolved Date GCA (giant cell arteritis) 01/18/201204/19 Polymyalgia rheumatica 01/10/2012 7 Routine general medical exam ination at a health care facility 02/12/2009 11/27/2011 Overview: 02/12/09 -- transfer [facility] 05/10/2010, yearly physical [facility] - [place] 10/29/20072011 Overview: Dr. Rowan Disorder of bone and cartilage 0 03/05/2016 Overview: Was on Actonel - quit taking it when had problems from pharmacy Allergic rhinitis, cause unspecified 10/29/2007 Carpal tunnel syndrome 8 Hematuria 10/29/2007 Overview: had workup including cystoscopy, etc. - entire workup negative. No longer happening. documented as of this encounter (statuses as of 07/24/2022) [facility]* Problem Noted Date Resolved Date GCA (giant cell arteritis) 01/18/201204/19 Polymyalgia rheumatica 01/10/2012 7 Routine general medical exam ination at a health care facility 02/12/2009 11/27/2011 Overview: 02/12/09 -- transfer [facility] 05/10/2010, yearly physical [facility] - [place] 10/29/20072011 Overview: Dr. Rowan Disorder of bone and cartilage 0 03/05/2016 Overview: Was on Actonel - quit taking it when had problems from pharmacy Allergic rhinitis, cause unspecified 10/29/2007 Carpal tunnel syndrome 8 Hematuria 10/29/2007 Overview: had workup including cystoscopy, etc. - entire workup negative. No longer happening. documented as of this encounter (statuses as of 07/31/2022) [facility]* Problem Noted Date Resolved Date GCA (giant cell arteritis) 01/18/201204/19 Polymyalgia rheumatica 01/10/2012 7 Routine general medical exam ination at a health care facility 02/12/2009 11/27/2011 Overview: 02/12/09 -- transfer from [facility] 05/10/2010, yearly physical [facility] - [place] 10/29/20072011 Overview: Dr. Rowan Disorder of bone and cartilage 0 03/05/2016 Overview: Was on Actonel - quit taking it when had problems from pharmacy Allergic rhinitis, cause unspecified 10/29/2007 Carpal tunnel syndrome 8 Hematuria 10/29/2007 Overview: had workup including cystoscopy, etc. - entire workup negative. No longer happening. documented as of this encounter (statuses as of 10/03/2022) [facility]* Problem Noted Date Resolved Date GCA (giant cell arteritis) 01/18/201204/19 Polymyalgia rheumatica 01/10/2012 7 Routine general medical exam ination at a health care facility 02/12/2009 11/27/2011 Overview: 02/12/09 -- transfer [facility] 05/10/2010, yearly physical [facility] - [place] 10/29/20072011 Overview: Dr. Rowan Disorder of bone and cartilage 0 03/05/2016 Overview: Was on Actonel - quit taking it when had problems from pharmacy Allergic rhinitis, cause unspecified 10/29/2007 Carpal tunnel syndrome 8 Hematuria 10/29/2007 Overview: had workup including cystoscopy, etc. - entire workup negative. No longer happening. documented as of this encounter (statuses as of 10/04/2022) [facility]* Problem Noted Date Resolved Date GCA (giant cell arteritis) 01/18/201204/19 Polymyalgia rheumatica 01/10/2012 7 Routine general medical exam ination at a [facility] care facility 02/12/2009 11/27/2011 Overview: 02/12/09 -- transfer [facility] 05/10/2010, yearly physical ROUTINE [facility] [place] 10/29/20072011 Overview: Dr. Rowan Disorder of bone and cartilage 0 03/05/2016 Overview: Was on Actonel - quit taking it when had problems from pharmacy Allergic rhinitis, cause unspecified 10/29/2007 Carpal tunnel syndrome 8 Hematuria 10/29/2007 Overview: had workup including cystoscopy, etc. - entire workup negative. No longer happening. documented as of this encounter (statuses as of 11/09/2022) [facility] History of Past illness Narrative* Problem Noted Date Resolved Date GCA (giant cell arteritis) 01/18/201204/19 Polymyalgia rheumatica 01/10/2012 7 Routine general medical exam ination at a health care facility 02/12/2009 11/27/2011 Overview: 02/12/09 -- transfer from [facility] 05/10/2010, yearly physical ROUTINE [facility] - [place] 10/29/20072011 Overview: Dr. Rowan Disorder of bone and cartilage 0 03/05/2016 Overview: Was on Actonel - quit taking it when had problems from pharmacy Allergic rhinitis, cause unspecified 10/29/2007 Carpal tunnel syndrome 8 Hematuria 10/29/2007 Overview: had workup including cystoscopy, etc. - entire workup negative. No longer happening. documented as of this encounter (statuses as of 11/21/2022) [facility] History of Past illness Narrative* Problem Noted Date Resolved Date GCA (giant cell arteritis) 01/18/201204/19 Polymyalgia rheumatica 01/10/2012 7 Routine general medical exam ination at a [facility] care facility 02/12/2009 11/27/2011 Overview: 02/12/09 -- transfer [facility] 05/10/2010, yearly physical ROUTINE [facility] - [place] 10/29/20072011 Overview: Dr. Rowan Disorder of bone and cartilage 0 03/05/2016 Overview: Was on Actonel - quit taking it when had problems from pharmacy Allergic rhinitis, cause unspecified 10/29/2007 Carpal tunnel syndrome 8 Hematuria 10/29/2007 Overview: had workup including cystoscopy, etc. - entire workup negative. No longer happening. documented as of this encounter (statuses as of 12/21/2022) [facility] History of Past illness Narrative* Problem Noted Date Resolved Date GCA (giant cell arteritis) 01/18/201204/19 Polymyalgia rheumatica 01/10/2012 7 Routine general medical exam ination at a health care facility 02/12/2009 11/27/2011 Overview: 02/12/09 -- transfer from [facility] 05/10/2010, yearly physical ROUTINE [facility] - [place] 10/29/20072011 Overview: Dr. Rowan Disorder of bone and cartilage 0 03/05/2016 Overview: Was on Actonel - quit taking it when had problems from pharmacy Allergic rhinitis, cause unspecified 10/29/2007 Carpal tunnel syndrome 8 Hematuria 10/29/2007 Overview: had workup including cystoscopy, etc. - entire workup negative. No longer happening. documented as of this encounter (statuses as of 12/21/2022) [facility] PMR (polymyalgia rheumatica) (HCC)- Primary Polymyalgia rheumatica 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) Giant cell arteritis Osteoporosis, postmenopausal Senile osteoporosis Encounter for long-term (current) use of medications Encounter for long-term (current) use of other medications Neck pain [facility]icalgia [facility] Neck pain- Primary Cervicalgia [facility] Diagnosis Essential hypertension Unspecified essential hypertension Headache, unspecified headache type [facility] Diagnosis Right ankle pain, unspecified chronicity documented in this encounter [facility] Work Phone: Evaluation note* Diagnosis New daily persistent headache 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) Giant cell arteritis Hyperlipidemia, mixed Mixed hyperlipidemia [facility] Diagnosis PMR (polymyalgia rheumatica) (HCC)- Primary Polymyalgia rheumatica 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) Giant cell arteritis Osteoporosis, postmenopausal Senile osteoporosis Encounter for long-term (current) use of medications Encounter for long-term (current) use of other medications [facility] Diagnosis 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 Traumatic arthropathy, ankle and foot documented in this encounter [facility] Work Phone: Evaluation noteNo assessment information available [facility] Work Phone: Evaluation note* Diagnosis PMR (polymyalgia rheumatica) (HCC)- Primary Polymyalgia rheumatica 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) Giant cell arteritis [facility] Diagnosis Essential tremor- Primary Essential and other specified forms of tremor [facility] Diagnosis Encounter for injection education- Primary Other specified counseling [facility] Diagnosis Skin infection- Primary Unspecified local infection of skin and subcutaneous tissue Need for tetanus booster Need for prophylactic vaccination with tetanus toxoid alone [facility] Diagnosis Injury of left lower extremity, subsequent encounter- Primary Wound of left lower extremity, subsequent encounter Pain of left lower extremity Hematoma of left lower leg [facility] Diagnosis Pain of left lower extremity- Primary Hematoma of left lower leg Wound of left lower extremity, subsequent encounter Injury of left lower extremity, subsequent encounter [facility]* Diagnosis Osteoporosis, postmenopausal- Primary Senile osteoporosis [facility] Diagnosis Essential hypertension Unspecified essential hypertension Headache, unspecified headache type [facility] Diagnosis PMR (polymyalgia rheumatica) (HCC)- Primary Polymyalgia rheumatica 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) Giant cell arteritis Osteoporosis, postmenopausal Senile osteoporosis Encounter for long-term (current) use of medications Encounter for long-term (current) use of other medications assisted 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 Encounter for long-term (current) use of steroids [facility] Diagnosis PMR (polymyalgia rheumatica) (HCC)- Primary Polymyalgia rheumatica 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) Giant cell arteritis [facility] Diagnosis Multiple thyroid nodules- Primary Nontoxic multinodular goiter [facility] Diagnosis Essential tremor Essential and other specified forms of tremor [facility] Diagnosis Multinodular goiter- Primary Nontoxic multinodular goiter PMR (polymyalgia rheumatica) (HCC)- Primary Polymyalgia rheumatica 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) Giant cell arteritis Osteoporosis, postmenopausal Senile osteoporosis Encounter for long-term (current) use of medications Encounter for long-term (current) use of other medications [facility] Diagnosis Multinodular goiter- Primary Nontoxic multinodular goiter [facility] Diagnosis Essential hypertension- Primary Unspecified essential hypertension Need for influenza vaccination Need for prophylactic vaccination and inoculation against influenza Multiple thyroid nodules Nontoxic multinodular goiter Vitamin B12 deficiency Other B-complex deficiencies Hyperlipidemia, mixed Mixed hyperlipidemia 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) Giant cell arteritis Osteoporosis, postmenopausal Senile osteoporosis Fatigue, unspecified type Tobacco use Tobacco use disorder Chronic neck pain Cervicalgia [facility]* Diagnosis Osteoporosis, postmenopausal Senile osteoporosis assisted 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 Encounter for long-term (current) use of steroids [facility] Diagnosis Thyroid nodule Nontoxic uninodular goiter [facility]* Diagnosis Abnormal mammogram of left breast- Primary [facility]* Diagnosis Osteoporosis, postmenopausal- Primary Senile osteoporosis [facility]* Diagnosis Osteoporosis, postmenopausal- Primary Senile osteoporosis [facility]* Diagnosis PMR (polymyalgia rheumatica) ([facility])- Primary Polymyalgia rheumatica 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) Giant cell arteritis Osteoporosis, postmenopausal Senile osteoporosis Encounter for long-term (current) use of medications Encounter for long-term (current) use of other medications [facility] Diagnosis Screening mammogram for breast cancer [facility] Diagnosis Nodule of lower lobe of left lung- Primary Carotid atherosclerosis, bilateral Dupuytren's contracture of right hand Contracture of palmar fascia Hyperlipidemia, mixed Mixed hyperlipidemia Fatigue, unspecified type Thyroid nodule Nontoxic uninodular goiter Iron deficiency Iron deficiency anemia, unspecified Hyperglycemia Other abnormal glucose Vitamin B12 deficiency Other B-complex deficiencies Essential hypertension Unspecified essential hypertension 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) Giant cell arteritis Osteoporosis, postmenopausal Senile osteoporosis Tobacco use Tobacco use disorder Vitamin D deficiency Unspecified vitamin D deficiency [facility] Diagnosis Nodule of lower lobe of left lung [facility] Diagnosis Essential hypertension- Primary Unspecified essential hypertension [facility] Diagnosis PMR (polymyalgia rheumatica) (HCC)- Primary Polymyalgia rheumatica Osteoporosis, postmenopausal Senile osteoporosis Encounter for long-term (current) use of medications Encounter for long-term (current) use of other medications manager 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 Encounter for long-term (current) use of steroids [facility] Diagnosis Yeast dermatitis- Primary Candidiasis of skin and nails [facility]* Diagnosis Essential hypertension Unspecified essential hypertension [facility] Diagnosis Essential hypertension Unspecified essential hypertension [facility] Diagnosis PMR (polymyalgia rheumatica) (HCC)- Primary Polymyalgia rheumatica manager 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 Encounter for long-term (current) use of steroids Encounter for long-term (current) use of medications Encounter for long-term (current) use of other medications 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) Giant cell arteritis Osteoporosis, postmenopausal Senile osteoporosis PUD (peptic ulcer disease) Peptic ulcer, unspecified site, unspecified as acute or chronic, without mention of hemorrhage, perforation, or obstruction [facility] Diagnosis Rash- Primary Rash and other nonspecific skin eruption [facility] Diagnosis Allergic contact dermatitis, unspecified trigger- Primary [facility]* Diagnosis Essential tremor Essential and other specified forms of tremor [facility]* Diagnosis Essential hypertension Unspecified essential hypertension [facility]* Diagnosis Injury of left lower extremity, subsequent encounter Wound of left lower extremity, subsequent encounter Pain of left lower extremity Hematoma of left lower leg [facility] Diagnosis PMR (polymyalgia rheumatica) (HCC) Polymyalgia rheumatica 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) Giant cell arteritis [facility] Diagnosis Neck pain Cervicalgia [facility]* Diagnosis Essential hypertension- Primary Unspecified essential hypertension Ganglion cyst Ganglion, unspecified Hornet sting, accidental or unintentional, initial encounter Diarrhea due to malabsorption Personal history of other diseases of digestive system [facility] Diagnosis Essential hypertension- Primary Unspecified essential hypertension Carotid atherosclerosis, bilateral [facility]* Diagnosis Postmenopausal osteoporosis- Primary Senile osteoporosis [facility] Diagnosis Essential hypertension Unspecified essential hypertension [facility] Diagnosis Essential hypertension Unspecified essential hypertension [facility] Diagnosis Encounter for screening mammogram for breast cancer [facility] Diagnosis Essential hypertension- Primary Unspecified essential hypertension 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) Giant cell arteritis Dupuytren's contracture of right hand Contracture of palmar fascia Chronic midline low back pain without sciatica Right wrist pain Pain in joint, forearm Tobacco abuse Tobacco use disorder Osteoporosis, postmenopausal Senile osteoporosis [facility]* Diagnosis Encounter for long-term (current) use of medications- Primary Encounter for long-term (current) use of other medications Postmenopausal osteoporosis Senile osteoporosis [facility] Diagnosis PMR (polymyalgia rheumatica) (HCC)- Primary Polymyalgia rheumatica 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) Giant cell arteritis Osteoporosis, postmenopausal Senile osteoporosis PUD (peptic ulcer disease) Peptic ulcer, unspecified site, unspecified as acute or chronic, without mention of hemorrhage, perforation, or obstruction Encounter for long-term (current) use of medications Encounter for long-term (current) use of other medications Neck pain Cervicalgia [facility] Diagnosis Neck pain Cervicalgia [facility] Diagnosis PMR (polymyalgia rheumatica) (HCC)- Primary Polymyalgia rheumatica [facility] Diagnosis Spinal stenosis of cervical region- Primary Spinal stenosis in cervical region Neck pain Cervicalgia Myalgia Mylagia and myositis, unspecified [facility] Diagnosis Essential hypertension Unspecified essential hypertension [facility] Diagnosis Spinal stenosis of cervical region Spinal stenosis in cervical region [facility] Diagnosis Neck pain- Primary Cervicalgia Spinal stenosis of cervical region Spinal stenosis in cervical region [facility] Diagnosis Essential hypertension- Primary Unspecified essential hypertension 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) Giant cell arteritis Tobacco abuse Tobacco use disorder Fatigue, unspecified type Vitamin B12 deficiency Other B-complex deficiencies Chronic neck pain Cervicalgia Osteoarthritis of spine with radiculopathy, cervical region DDD (degenerative disc disease), cervical Degeneration of cervical intervertebral disc [facility] Diagnosis Essential tremor Essential and other specified forms of tremor Cervicalgia [facility] Diagnosis Onset Date Resolution Status Admit Date Gross hematuria acute May 262024 11:40am [facility] Work Phone: Reason for referral (narrative)* Diagnostic Procedure Only (Routine) - Closed Specialty Diagnoses / Procedures Referred By Contac t Referred To Contact XR IMAGING Diagnoses Neck pain Procedures XR CERV OTHER 4V AP/LAT/OBL RADEX SPINE CERVICAL 4 OR 5 VIEWS Palma Lovett, ROLLER INSPECTOR AND MENDER.SHINGLE INSPECTOR [address] [place] [address] Xr Imaging Referral ID Status Reason Start Date Expiration Date V isits Requested Visits Authorized [id number] Closed Auto-Generate d Referral 12/16/2021 01/15/2023 1 1 [facility] for referral (narrative)* Diagnostic Procedure Only (Routine) - Closed Specialty Diagnoses / Procedures Referred By Contac t Referred To Contact XR IMAGING Diagnoses Injury of left lower extremity, subsequent encounter Wound of left lower extremity, subsequent encounter Pain of left lower extremity Hematoma of left lower leg Procedures XR TIBIA FIBULA 2V AP/LAT LEFT RADIOLOGIC EXAMINATION TIBIA & FIBULA 2 VIEWS Wily Abarca APRN.SHINGLE INSPECTOR [address] [place] [address] Xr Imaging Referral ID Status Reason Start Date Expiration Date V isits Requested Visits Authorized [id number] Closed Auto-Generate d Referral 07/03/2022 08/02/2023 1 1 [facility] for referral (narrative)* Diagnostic Procedure Only (Routine) - Closed Specialty Diagnoses / Procedures Referred By Contac t Referred To Contact US IMAGING Diagnoses Thyroid nodule Procedures US THYROID/PARATHYROID US SOFT TISSUE HEAD & NECK REAL TIME IMGE DOCM Miah Cottrell DO [address] [place] [address] [place] [address] Referral ID Status Reason Start Date Expiration Date V isits Requested Visits Authorized [id number] Closed Auto-Generate d Referral 03/12/2023 04/10/2024 1 1 [facility] for referral (narrative)* Outpatient Procedure (Routine) - Authorized Specialty Diagnoses / Procedures Referred By Contac t Referred To Contact [facility] Diagnoses Carotid atherosclerosis, bilateral Procedures US CAROTID ARTERIES [facility] DUPLEX SCAN EXTRACRANIAL ART COMPL BI STUDY Miah Cottrell DO [address] [place] [address] [facility] [address] [place] [address] Referral ID Status Reason Start Date Expiration Date Visits Requested Visits Authorized [id number] Authorized Auto-Generat ed Referral 12/17/2023 12/16/2024 1 1 * MRI/CT (Routine) - Authorized Specialty Diagnoses / Procedures Referred By Contac t Referred To Contact CT IMAGING Diagnoses Nodule of lower lobe of left lung Procedures CT CHEST WO IVCON DIAGNOSTIC COMPUTED TOMOGRAPHY THORAX W/O CNTRST Miah Cottrell DO [address] [place] [address] [place] [address] Referral ID Status Reason Start Date Expiration Date Visits Requested Visits Authorized [id number] Authorized Auto-Generat ed Referral 12/17/2023 01/15/2025 1 1 [facility] for referral (narrative)* Diagnostic Procedure Only (Routine) - Closed Specialty Diagnoses / Procedures Referred By Contac t Referred To Contact XR IMAGING Diagnoses Injury of left lower extremity, subsequent encounter Wound of left lower extremity, subsequent encounter Pain of left lower extremity Hematoma of left lower leg Procedures XR TIBIA FIBULA 2V AP/LAT LEFT RADIOLOGIC EXAMINATION TIBIA & FIBULA 2 VIEWS Wily Abarca, ROLLER INSPECTOR AND MENDER.SHINGLE INSPECTOR [address] [place] [address] [place] [address] Referral ID Status Reason Start Date Expiration Date V isits Requested Visits Authorized [id number] Closed Auto-Generate d Referral 07/03/2022 08/02/2023 1 1 [facility] for referral (narrative)* Diagnostic Procedure Only (Routine) - Closed Specialty Diagnoses / Procedures Referred By Contac t Referred To Contact XR IMAGING Diagnoses Neck pain Procedures XR CERV OTHER 4V AP/LAT/OBL RADEX SPINE CERVICAL 4 OR 5 VIEWS Palma Lovett, ROLLER INSPECTOR AND MENDER.SHINGLE INSPECTOR [address] [place] [address] [place] [address] Referral ID Status Reason Start Date Expiration Date V isits Requested Visits Authorized [id number] Closed Auto-Generate d Referral 12/16/2021 01/15/2023 1 1 [facility] for referral (narrative)No reason for [facility] Reason for visit Narrative* Diagnostic Procedure Only (Routine) - Closed Specialty Diagnoses / Procedures Referred By Contac t Referred To Contact BR IMAGING Diagnoses Abnormal mammogram of left breast Procedures PARRIS DIAGNOSTIC LT DIAGNOSTIC MAMMOGRAPHY COMPUTER-AIDED DETCJ Kymberly Moreau MD [address] [place] [address] [facility] [address] [place] [address] Referral ID Status Reason Start Date Expiration Date V isits Requested Visits Authorized [id number] Closed Auto-Generate d Referral 10/03/2022 11/02/2023 1 1 [facility] for visit Narrative* Diagnostic Procedure Only (Routine) - Closed Specialty Diagnoses / Procedures Referred By Contac t Referred To Contact BR IMAGING Diagnoses Screening mammogram for breast cancer Procedures PARRIS SCREENING SCREENING MAMMOGRAPHY BI 2-VIEW BREAST INC CAD Ronna Quiroz, ROLLER INSPECTOR AND MENDER.SHINGLE INSPECTOR [address] [place] [address] [facility] [address] [place] [address] Referral ID Status Reason Start Date Expiration Date V isits Requested Visits Authorized [id number] Closed Auto-Generate d Referral 10/02/2022 11/01/2023 1 1 [facility] for visit Narrative* Diagnostic Procedure Only (Routine) - Closed Specialty Diagnoses / Procedures Referred By Viktor t Referred To Contact XR IMAGING Diagnoses Injury of left lower extremity, subsequent encounter Wound of left lower extremity, subsequent encounter Pain of left lower extremity Hematoma of left lower leg Procedures XR TIBIA FIBULA 2V AP/LAT LEFT RADIOLOGIC EXAMINATION TIBIA & FIBULA 2 VIEWS Wliy Abarca, ROLLER INSPECTOR AND MENDER.SHINGLE INSPECTOR [address] [place] [address] [place] [address] Referral ID Status Reason Start Date Expiration Date V isits Requested Visits Authorized [id number] Closed Auto-Generate d Referral 07/03/2022 08/02/2023 1 1 [facility] for visit Narrative* Diagnostic Procedure Only (Routine) - Closed Specialty Diagnoses / Procedures Referred By Conthoa t Referred To Contact BR IMAGING Diagnoses Encounter for screening mammogram for breast cancer Procedures PARRIS SCREENING W DOMENIC SCREENING DIGITAL BREAST TOMOSYNTHESIS BI SCREENING MAMMOGRAPHY BI 2-VIEW BREAST INC CAD Miah Cottrell DO [address] [place] [address] Phone: tel: fax: [facility] [address] [place] [address] Referral ID Status Reason Start Date Expiration Date V isits Requested Visits Authorized [id number] Closed Auto-Generate d Referral 11/11/2024 12/11/2025 1 1 [facility] N[facility]* MRI/CT (Routine) - Closed Specialty Diagnoses / Procedures Referred By Adonayac t Referred To Contact [facility] Diagnoses Spinal stenosis of cervical region Procedures MRI CERVICAL SPINE WO IVCON MRI SPINAL CANAL CERVICAL W/O CONTRAST NAGA PisanoDorothy M, ROLLER INSPECTOR AND MENDER.SHINGLE INSPECTOR [address] [place] [address] Phone: tel: fax: [place] [phone] Referral ID Status Reason Start Date Expiration Date V isits Requested Visits Authorized [id number] Closed Auto-Generate d Referral 02/13/2025 03/15/2026 1 1 [facility] Summary Purpose Family History No Family History Records Found Relationship Condition Age at Onset Recorded Date/T brenda brother Malignant neoplasm Unknown sister Malignant neoplasm Unknown Diabetes mellitus Unknown father Diabetes mellitus Unknown Cardiac disease Unknown Myocardial infarction Unknown mother Cardiac disease Unknown Relationship Condition Age at Onset Recorded Date/T brenda Not Specified History of transfusion of whole blood Un known Arthritis Unknown Kidney disorder Unknown Malignant melanoma Unknown Complication of anesthesia Unknown Hemorrhagic disorder Unknown Hypertension Unknown brother Malignant neoplasm Unknown sister Malignant neoplasm Unknown Diabetes mellitus Unknown father Diabetes mellitus Unknown Cardiac disease Unknown Myocardial infarction Unknown mother Cardiac disease Unknown Advance Directives No Advanced Directives Records FoundDocuments on File Type Date Recorded Patient Business Law Instructor Expl anation ACP-Advance Directive 08/04/2016 2:12 PM Latest Code Status on File Code Status Date Activated Date Inactivated Comments Full Code 08/03/2016 10:48 AM 08/03/2016 10:23 PM Documents on File Type Date Recorded Patient Business Law Instructor Expl anation Advance Directives and Livin g Will Advance Directives and Livin g Will 08/04/2016 2:12 PM Power of Fire Boss Documents on File Type Date Recorded Patient Business Law Instructor Expl anation Advance Directive(s) 05/09/2021 9:06 AM Advance Directive(s) 04/15/2021 2:20 PM Advance Directive(s) 03/17/2019 6:24 AM Advance Directive(s) 11/21/2018 11:22 AM Advance Directive(s) 11/08/2018 4:17 PM Documents on File Type Date Recorded Patient Business Law Instructor Expl anation Advance Directive(s) 05/09/2021 9:06 AM Advance Directive(s) 04/15/2021 2:20 PM Advance Directive(s) 03/17/2019 6:24 AM Advance Directive(s) 11/21/2018 11:22 AM Advance Directive(s) 11/08/2018 4:17 PM Documents on File Type Date Recorded Patient Business Law Instructor Expl anation ACP-Advance Directive ACP-Power of Fire Boss ACP-Advance Directive 08/04/2016 2:12 PM Latest Code Status on File Code Status Date Activated Date Inactivated Comments Full Code 03/23/2022 7:01 AM Full Code 08/03/2016 10:48 AM 08/03/2016 10:23 PM Advance Directive Response Recorded Date/ Time Advance Directives No June 07, 2018 1:06pm Living Will No November 20, 2020 8:08pm Power of Fire Boss No November 20 8:08pm Advance Directive Response Recorded Date/ Time Advance Directives No June 07, 2018 1:06pm Advance Directive Response Recorded Date/ Time Do you have a Healthcare Power of Fire Boss? No June 12, 2025 2:17pm Advance Directives No June 07, 2018 12:06pm Assessments Diagnosis Right ankle pain, unspecified chronicity History of ankle fusion Other postprocedural status Traumatic arthritis of right ankle Reason for Referral Specialty Diagnoses / Procedures Referred By Contac t Referred To Contact [facility] [place] Diagnoses Neck pain Procedures CONSULT TO [facility] OFFICE/OUTPATIENT [facility] MDM 60-74 MINUTES Palma Lovett, ROLLER INSPECTOR AND MENDER.SHINGLE INSPECTOR [address] [place] [address] Referral ID Status Reason Start Date Expiration Date Visits Requested Visits Authorized [id number] Authorized PCP Requested Referral 12/16/2021 12/16/2022 1 1 Specialty Diagnoses / Procedures Referred By Contac t Referred To Contact [facility] Diagnoses Neck pain Procedures CONSULT TO PHYSICAL THERAPY PHYSICAL THERAPY EVALUATION HIGH COMPLEX 45 MINS Palma Lovett, ROLLER INSPECTOR AND MENDER.SHINGLE INSPECTOR [address] [place] [address] [facility] [place] [address] [place] [address] Referral ID Status Reason Start Date Expiration Date Visits Requested Visits Authorized [id number] Authorized PCP Requested Referral Auto-Generate d Referral 12/16/2021 12/16/2022 99 99 Specialty Diagnoses / Procedures Referred By Contac t Referred To Contact CT IMAGING Diagnoses New daily persistent headache 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) Hyperlipidemia, mixed Procedures CTA HEAD WO/W IVCON CT ANGIOGRAPHY HEAD W/CONTRAST/NONCONTRAST Miah Cottrell DO [address] [place] [address] Ct Imaging Referral ID Status Reason Start Date Expiration Date V isits Requested Visits Authorized [id number] Closed Auto-Generate d Referral 12/26/2021 01/25/2023 1 1 Specialty Diagnoses / Procedures Referred By Contac t Referred To Contact Diagnoses Essential tremor Procedures PROVIDER ORDERED FOLLOW UP OFFICE/OUTPATIENT [facility] 60-74 MINUTES Marko Wood MD [address] [address] Referral ID Status Reason Start Date Expiration Date Visits Requested Visits Authorized [id number] Authorized PCP Requested Referral 02/01/2023 05/02/2023 1 1 Specialty Diagnoses / Procedures Referred By Contac t Referred To Contact General Surgery Diagnoses Multiple thyroid nodules Procedures CONSULT TO GENERAL SURGERY OFFICE/OUTPATIENT [facility] 60-74 MINUTES Ronna Quiroz, ROLLER INSPECTOR AND MENDER.SHINGLE INSPECTOR [address] [place] [address] Referral ID Status Reason Start Date Expiration Date V isits Requested Visits Authorized [id number] Closed PCP Requested Referral 04/12/2023 04/11/2024 1 1 Specialty Diagnoses / Procedures Referred By Contac t Referred To Contact Diagnoses Essential tremor Procedures PROVIDER ORDERED FOLLOW UP Marko Wood MD [address] [address] Referral ID Status Reason Start Date Expiration Date Visits Requested Visits Authorized [id number] Ref Not Required PCP Requested Referral 04/19/2023 07/18/2023 1 1 Specialty Diagnoses / Procedures Referred By Contac t Referred To Contact [facility] Diagnoses Osteoporosis, postmenopausal Palma Lovett, ROLLER INSPECTOR AND MENDER.SHINGLE INSPECTOR [address] [place] [address] [facility] [address] [place] [address] Referral ID Status Reason Start Date Expiration Date Visits Requested Visits Authorized [id number] Authorized Auto-Generat ed Referral 10/14/2023 1 1 Specialty Diagnoses / Procedures Referred By Contact Referred To Contact [facility] [place] [address] [place] [address] [facility] [address] [place] [address] Referral ID Status Reason Start Date Expiration Date V isits Requested Visits Authorized [id number] Closed Auto-Generate d Referral 01/28/2024 04/27/2024 1 1 Specialty Diagnoses / Procedures Referred By Contac t Referred To Contact Diagnoses Essential tremor Procedures PROVIDER ORDERED FOLLOW UP OFFICE/OUTPATIENT [facility] 60 MINUTES Marko Wood MD [address] [facility] [address] [place] [address] Referral ID Status Reason Start Date Expiration Date Visits Requested Visits Authorized [id number] Authorized PCP Requested Referral 2024 07/13/2024 1 1 Referral ID Status Reason Start Date Expiration Date Visits Requested Visits Authorized [id number] Authorized Auto-Generat ed Referral 11/03/2024 1 1 Chief Complaint and Reason for Visit Chief Complaint LLQ PAIN Chief Complaint Left lower quadrant pain Chief Complaint Admit Date Pressure urgency frequency May 26, 2025 11:40am Reason for Visit Admit Date Gross hematuria May 26, 2025 11 :40am Chief Complaint Admit Date Pressure urgency frequency May 26, 2025 11:40am E ORDER May 26, 2025 12 :35pm GROSS HEMATURIA, SMOKER June 01 3:51pm cystoscopy and pelvic exam June 09, 2025 1:28pm Pre-op urine C&S sign consent June [id number] 2:31pm Reason for Visit Admit Date Gross hematuria May 26, 2025 11 :40am Nocturia May 26, 2025 11 :40am Overactive bladder May 26, 2025 11 :40am Urge incontinence May 26, 2025 11 :40am Vaginal atrophy May 26, 2025 11 :40am Gross hematuria June 09, 2025 1 :28pm Nocturia June 09, 2025 1 :28pm Overactive bladder June 09, 2025 1 :28pm Urge incontinence June 09, 2025 1 :28pm Vaginal atrophy June 09, 2025 1 :28pm Chief Complaint Admit Date Pressure urgency frequency May 26, 2025 11:40am E ORDER May 26, 2025 12 :35pm GROSS HEMATURIA, SMOKER June 01 3:51pm cystoscopy and pelvic exam June 09, 2025 1:28pm Pre-op urine C&S sign consent June [id number] 2:31pm Cysto, Bladder Biospy June 18, 2025 6:38am Cysto, Bladder Biospy June 18, 2025 7:41am Medications Administered Section Inactive Administered Medications - up to 3 most recent administrations Medication Order MAR Action Action Date Dose Rate Site denosumab 60 mg injection (PROLIA) 60 mg, SUBCUTANEOUS, ONCE (UP TO 30 DAYS AMB), 1 dose, On Sun07/31/22 at 0000, Allow To Come To Room Temperature Before Administration. REFRIGERATE Given 07/31/2022 10:51 AM EST 60 mg Arm, Left Inactive Administered Medications - up to 3 most recent administrations Medication Order MAR Action Action Date Dose Rate Site denosumab 60 mg injection (PROLIA) 60 mg, SUBCUTANEOUS, ONCE (UP TO 30 DAYS AMB), 1 dose, On Sun01/19/23 at 1530, Allow To Come To Room Temperature Before Administration. REFRIGERATE Given 01/19/2023 3:38 PM EDT 60 mg Arm, Left Inactive Administered Medications - up to 3 most recent administrations Medication Order MAR Action Action Date Dose Rate Site denosumab 60 mg injection (PROLIA) 60 mg, SUBCUTANEOUS, ONCE (UP TO 30 DAYS AMB), 1 dose, On Sun07/23/23 at 0000, Allow To Come To Room Temperature Before Administration. REFRIGERATE Given 07/23/2023 10:33 AM EST 60 mg Arm, Right Additional Source Comments INFORMATION SOURCE (unrecogn ized section and content) DATE CREATED AUTHOR 05/25/2019 [facility] DATE CREATED AUTHOR AUTHOR'S ORGANIZ ATION 04/15/2022 [facility] DATE CREATED AUTHOR AUTHOR'S ORGANIZ ATION 01/27/2023 [facility] DATE CREATED AUTHOR AUTHOR'S ORGANIZ ATION 05/23/2025 [facility] DATE CREATED AUTHOR AUTHOR'S ORGANIZ ATION 07/01/2025 [facility] Source Comments (unrecognize d section and content) In the event this informatio n is protected by the Federal Confidentiality of Alcohol and Drug Abuse Patient Records regulations: The Federal rules restrict any use of the information to criminally investigate or prosecute any alcohol or drug abuse patient.[facility] the event this information is protected by the Federal Confidentiality of Alcohol and Drug Abuse Patient Records regulations: The Federal rules restrict any use of the information to criminally investigate or prosecute any alcohol or drug abuse patient.[facility] CampusIn the event this information is protected by the Federal Confidentiality of Alcohol and Drug Abuse Patient Records regulations: The Federal rules restrict any use of the information to criminally investigate or prosecute any alcohol or drug abuse patient.[facility] CampusIn the event this information is protected by the Federal Confidentiality of Alcohol and Drug Abuse Patient Records regulations: The Federal rules restrict any use of the information to criminally investigate or prosecute any alcohol or drug abuse patient.[facility] CampusIn the event this information is protected by the Federal Confidentiality of Alcohol and Drug Abuse Patient Records regulations: The Federal rules restrict any use of the information to criminally investigate or prosecute any alcohol or drug abuse patient.[facility] CampusIn the event this information is protected by the Federal Confidentiality of Alcohol and Drug Abuse Patient Records regulations: The Federal rules restrict any use of the information to criminally investigate or prosecute any alcohol or drug abuse patient.[facility] CampusIn the event this information is protected by the Federal Confidentiality of Alcohol and Drug Abuse Patient Records regulations: The Federal rules restrict any use of the information to criminally investigate or prosecute any alcohol or drug abuse patient.[facility] CampusIn the event this information is protected by the Federal Confidentiality of Alcohol and Drug Abuse Patient Records regulations: The Federal rules restrict any use of the information to criminally investigate or prosecute any alcohol or drug abuse patient.[facility] CampusIn the event this information is protected by the Federal Confidentiality of Alcohol and Drug Abuse Patient Records regulations: The Federal rules restrict any use of the information to criminally investigate or prosecute any alcohol or drug abuse patient.[facility] CampusIn the event this information is protected by the Federal Confidentiality of Alcohol and Drug Abuse Patient Records regulations: The Federal rules restrict any use of the information to criminally investigate or prosecute any alcohol or drug abuse patient.[facility] CampusIn the event this information is protected by the Federal Confidentiality of Alcohol and Drug Abuse Patient Records regulations: The Federal rules restrict any use of the information to criminally investigate or prosecute any alcohol or drug abuse patient.[facility] CampusIn the event this information is protected by the Federal Confidentiality of Alcohol and Drug Abuse Patient Records regulations: The Federal rules restrict any use of the information to criminally investigate or prosecute any alcohol or drug abuse patient.[facility] CampusIn the event this information is protected by the Federal Confidentiality of Alcohol and Drug Abuse Patient Records regulations: The Federal rules restrict any use of the information to criminally investigate or prosecute any alcohol or drug abuse patient.[facility] CampusIn the event this information is protected by the Federal Confidentiality of Alcohol and Drug Abuse Patient Records regulations: The Federal rules restrict any use of the information to criminally investigate or prosecute any alcohol or drug abuse patient.[facility] CampusIn the event this information is protected by the Federal Confidentiality of Alcohol and Drug Abuse Patient Records regulations: The Federal rules restrict any use of the information to criminally investigate or prosecute any alcohol or drug abuse patient.[facility] CampusIn the event this information is protected by the Federal Confidentiality of Alcohol and Drug Abuse Patient Records regulations: The Federal rules restrict any use of the information to criminally investigate or prosecute any alcohol or drug abuse patient.[facility] CampusIn the event this information is protected by the Federal Confidentiality of Alcohol and Drug Abuse Patient Records regulations: The Federal rules restrict any use of the information to criminally investigate or prosecute any alcohol or drug abuse patient.[facility] CampusIn the event this information is protected by the Federal Confidentiality of Alcohol and Drug Abuse Patient Records regulations: The Federal rules restrict any use of the information to criminally investigate or prosecute any alcohol or drug abuse patient.[facility] CampusIn the event this information is protected by the Federal Confidentiality of Alcohol and Drug Abuse Patient Records regulations: The Federal rules restrict any use of the information to criminally investigate or prosecute any alcohol or drug abuse patient.[facility] CampusIn the event this information is protected by the Federal Confidentiality of Alcohol and Drug Abuse Patient Records regulations: The Federal rules restrict any use of the information to criminally investigate or prosecute any alcohol or drug abuse patient.[facility] CampusIn the event this information is protected by the Federal Confidentiality of Alcohol and Drug Abuse Patient Records regulations: The Federal rules restrict any use of the information to criminally investigate or prosecute any alcohol or drug abuse patient.[facility] CampusIn the event this information is protected by the Federal Confidentiality of Alcohol and Drug Abuse Patient Records regulations: The Federal rules restrict any use of the information to criminally investigate or prosecute any alcohol or drug abuse patient.[facility] CampusIn the event this information is protected by the Federal Confidentiality of Alcohol and Drug Abuse Patient Records regulations: The Federal rules restrict any use of the information to criminally investigate or prosecute any alcohol or drug abuse patient.[facility] CampusIn the event this information is protected by the Federal Confidentiality of Alcohol and Drug Abuse Patient Records regulations: The Federal rules restrict any use of the information to criminally investigate or prosecute any alcohol or drug abuse patient.[facility] CampusIn the event this information is protected by the Federal Confidentiality of Alcohol and Drug Abuse Patient Records regulations: The Federal rules restrict any use of the information to criminally investigate or prosecute any alcohol or drug abuse patient.[facility] CampusIn the event this information is protected by the Federal Confidentiality of Alcohol and Drug Abuse Patient Records regulations: The Federal rules restrict any use of the information to criminally investigate or prosecute any alcohol or drug abuse patient.[facility] CampusIn the event this information is protected by the Federal Confidentiality of Alcohol and Drug Abuse Patient Records regulations: The Federal rules restrict any use of the information to criminally investigate or prosecute any alcohol or drug abuse patient.[facility] CampusIn the event this information is protected by the Federal Confidentiality of Alcohol and Drug Abuse Patient Records regulations: The Federal rules restrict any use of the information to criminally investigate or prosecute any alcohol or drug abuse patient.[facility] CampusIn the event this information is protected by the Federal Confidentiality of Alcohol and Drug Abuse Patient Records regulations: The Federal rules restrict any use of the information to criminally investigate or prosecute any alcohol or drug abuse patient.[facility] CampusIn the event this information is protected by the Federal Confidentiality of Alcohol and Drug Abuse Patient Records regulations: The Federal rules restrict any use of the information to criminally investigate or prosecute any alcohol or drug abuse patient.[facility] CampusIn the event this information is protected by the Federal Confidentiality of Alcohol and Drug Abuse Patient Records regulations: The Federal rules restrict any use of the information to criminally investigate or prosecute any alcohol or drug abuse patient.[facility] CampusIn the event this information is protected by the Federal Confidentiality of Alcohol and Drug Abuse Patient Records regulations: The Federal rules restrict any use of the information to criminally investigate or prosecute any alcohol or drug abuse patient.[facility] CampusIn the event this information is protected by the Federal Confidentiality of Alcohol and Drug Abuse Patient Records regulations: The Federal rules restrict any use of the information to criminally investigate or prosecute any alcohol or drug abuse patient.[facility] CampusIn the event this information is protected by the Federal Confidentiality of Alcohol and Drug Abuse Patient Records regulations: The Federal rules restrict any use of the information to criminally investigate or prosecute any alcohol or drug abuse patient.[facility] CampusIn the event this information is protected by the Federal Confidentiality of Alcohol and Drug Abuse Patient Records regulations: The Federal rules restrict any use of the information to criminally investigate or prosecute any alcohol or drug abuse patient.[facility] CampusIn the event this information is protected by the Federal Confidentiality of Alcohol and Drug Abuse Patient Records regulations: The Federal rules restrict any use of the information to criminally investigate or prosecute any alcohol or drug abuse patient.[facility] CampusIn the event this information is protected by the Federal Confidentiality of Alcohol and Drug Abuse Patient Records regulations: The Federal rules restrict any use of the information to criminally investigate or prosecute any alcohol or drug abuse patient.[facility] CampusIn the event this information is protected by the Federal Confidentiality of Alcohol and Drug Abuse Patient Records regulations: The Federal rules restrict any use of the information to criminally investigate or prosecute any alcohol or drug abuse patient.[facility] CampusIn the event this information is protected by the Federal Confidentiality of Alcohol and Drug Abuse Patient Records regulations: The Federal rules restrict any use of the information to criminally investigate or prosecute any alcohol or drug abuse patient.[facility] CampusIn the event this information is protected by the Federal Confidentiality of Alcohol and Drug Abuse Patient Records regulations: The Federal rules restrict any use of the information to criminally investigate or prosecute any alcohol or drug abuse patient.[facility] CampusIn the event this information is protected by the Federal Confidentiality of Alcohol and Drug Abuse Patient Records regulations: The Federal rules restrict any use of the information to criminally investigate or prosecute any alcohol or drug abuse patient.[facility] CampusIn the event this information is protected by the Federal Confidentiality of Alcohol and Drug Abuse Patient Records regulations: The Federal rules restrict any use of the information to criminally investigate or prosecute any alcohol or drug abuse patient.[facility] CampusIn the event this information is protected by the Federal Confidentiality of Alcohol and Drug Abuse Patient Records regulations: The Federal rules restrict any use of the information to criminally investigate or prosecute any alcohol or drug abuse patient.[facility] CampusIn the event this information is protected by the Federal Confidentiality of Alcohol and Drug Abuse Patient Records regulations: The Federal rules restrict any use of the information to criminally investigate or prosecute any alcohol or drug abuse patient.[facility] CampusIn the event this information is protected by the Federal Confidentiality of Alcohol and Drug Abuse Patient Records regulations: The Federal rules restrict any use of the information to criminally investigate or prosecute any alcohol or drug abuse patient.[facility] CampusIn the event this information is protected by the Federal Confidentiality of Alcohol and Drug Abuse Patient Records regulations: The Federal rules restrict any use of the information to criminally investigate or prosecute any alcohol or drug abuse patient.[facility] CampusIn the event this information is protected by the Federal Confidentiality of Alcohol and Drug Abuse Patient Records regulations: The Federal rules restrict any use of the information to criminally investigate or prosecute any alcohol or drug abuse patient.[facility] CampusIn the event this information is protected by the Federal Confidentiality of Alcohol and Drug Abuse Patient Records regulations: The Federal rules restrict any use of the information to criminally investigate or prosecute any alcohol or drug abuse patient.[facility] CampusIn the event this information is protected by the Federal Confidentiality of Alcohol and Drug Abuse Patient Records regulations: The Federal rules restrict any use of the information to criminally investigate or prosecute any alcohol or drug abuse patient.[facility] CampusIn the event this information is protected by the Federal Confidentiality of Alcohol and Drug Abuse Patient Records regulations: The Federal rules restrict any use of the information to criminally investigate or prosecute any alcohol or drug abuse patient.[facility] CampusIn the event this information is protected by the Federal Confidentiality of Alcohol and Drug Abuse Patient Records regulations: The Federal rules restrict any use of the information to criminally investigate or prosecute any alcohol or drug abuse patient.[facility] CampusIn the event this information is protected by the Federal Confidentiality of Alcohol and Drug Abuse Patient Records regulations: The Federal rules restrict any use of the information to criminally investigate or prosecute any alcohol or drug abuse patient.[facility] CampusIn the event this information is protected by the Federal Confidentiality of Alcohol and Drug Abuse Patient Records regulations: The Federal rules restrict any use of the information to criminally investigate or prosecute any alcohol or drug abuse patient.[facility] CampusIn the event this information is protected by the Federal Confidentiality of Alcohol and Drug Abuse Patient Records regulations: The Federal rules restrict any use of the information to criminally investigate or prosecute any alcohol or drug abuse patient.[facility] CampusIn the event this information is protected by the Federal Confidentiality of Alcohol and Drug Abuse Patient Records regulations: The Federal rules restrict any use of the information to criminally investigate or prosecute any alcohol or drug abuse patient.[facility] CampusIn the event this information is protected by the Federal Confidentiality of Alcohol and Drug Abuse Patient Records regulations: The Federal rules restrict any use of the information to criminally investigate or prosecute any alcohol or drug abuse patient.[facility] CampusIn the event this information is protected by the Federal Confidentiality of Alcohol and Drug Abuse Patient Records regulations: The Federal rules restrict any use of the information to criminally investigate or prosecute any alcohol or drug abuse patient.[facility] CampusIn the event this information is protected by the Federal Confidentiality of Alcohol and Drug Abuse Patient Records regulations: The Federal rules restrict any use of the information to criminally investigate or prosecute any alcohol or drug abuse patient.[facility] CampusIn the event this information is protected by the Federal Confidentiality of Alcohol and Drug Abuse Patient Records regulations: The Federal rules restrict any use of the information to criminally investigate or prosecute any alcohol or drug abuse patient.[facility] CampusIn the event this information is protected by the Federal Confidentiality of Alcohol and Drug Abuse Patient Records regulations: The Federal rules restrict any use of the information to criminally investigate or prosecute any alcohol or drug abuse patient.[facility] CampusIn the event this information is protected by the Federal Confidentiality of Alcohol and Drug Abuse Patient Records regulations: The Federal rules restrict any use of the information to criminally investigate or prosecute any alcohol or drug abuse patient.[facility] CampusIn the event this information is protected by the Federal Confidentiality of Alcohol and Drug Abuse Patient Records regulations: The Federal rules restrict any use of the information to criminally investigate or prosecute any alcohol or drug abuse patient.[facility] CampusIn the event this information is protected by the Federal Confidentiality of Alcohol and Drug Abuse Patient Records regulations: The Federal rules restrict any use of the information to criminally investigate or prosecute any alcohol or drug abuse patient.[facility] CampusIn the event this information is protected by the Federal Confidentiality of Alcohol and Drug Abuse Patient Records regulations: The Federal rules restrict any use of the information to criminally investigate or prosecute any alcohol or drug abuse patient.[facility] CampusIn the event this information is protected by the Federal Confidentiality of Alcohol and Drug Abuse Patient Records regulations: The Federal rules restrict any use of the information to criminally investigate or prosecute any alcohol or drug abuse patient.[facility] CampusIn the event this information is protected by the Federal Confidentiality of Alcohol and Drug Abuse Patient Records regulations: The Federal rules restrict any use of the information to criminally investigate or prosecute any alcohol or drug abuse patient.[facility] CampusIn the event this information is protected by the Federal Confidentiality of Alcohol and Drug Abuse Patient Records regulations: The Federal rules restrict any use of the information to criminally investigate or prosecute any alcohol or drug abuse patient.[facility] CampusIn the event this information is protected by the Federal Confidentiality of Alcohol and Drug Abuse Patient Records regulations: The Federal rules restrict any use of the information to criminally investigate or prosecute any alcohol or drug abuse patient.[facility] CampusIn the event this information is protected by the Federal Confidentiality of Alcohol and Drug Abuse Patient Records regulations: The Federal rules restrict any use of the information to criminally investigate or prosecute any alcohol or drug abuse patient.[facility] CampusIn the event this information is protected by the Federal Confidentiality of Alcohol and Drug Abuse Patient Records regulations: The Federal rules restrict any use of the information to criminally investigate or prosecute any alcohol or drug abuse patient.[facility] CampusIn the event this information is protected by the Federal Confidentiality of Alcohol and Drug Abuse Patient Records regulations: The Federal rules restrict any use of the information to criminally investigate or prosecute any alcohol or drug abuse patient.[facility] CampusIn the event this information is protected by the Federal Confidentiality of Alcohol and Drug Abuse Patient Records regulations: The Federal rules restrict any use of the information to criminally investigate or prosecute any alcohol or drug abuse patient.[facility] CampusIn the event this information is protected by the Federal Confidentiality of Alcohol and Drug Abuse Patient Records regulations: The Federal rules restrict any use of the information to criminally investigate or prosecute any alcohol or drug abuse patient.[facility] CampusIn the event this information is protected by the Federal Confidentiality of Alcohol and Drug Abuse Patient Records regulations: The Federal rules restrict any use of the information to criminally investigate or prosecute any alcohol or drug abuse patient.[facility] CampusIn the event this information is protected by the Federal Confidentiality of Alcohol and Drug Abuse Patient Records regulations: The Federal rules restrict any use of the information to criminally investigate or prosecute any alcohol or drug abuse patient.[facility] CampusIn the event this information is protected by the Federal Confidentiality of Alcohol and Drug Abuse Patient Records regulations: The Federal rules restrict any use of the information to criminally investigate or prosecute any alcohol or drug abuse patient.[facility] CampusIn the event this information is protected by the Federal Confidentiality of Alcohol and Drug Abuse Patient Records regulations: The Federal rules restrict any use of the information to criminally investigate or prosecute any alcohol or drug abuse patient.[facility] CampusIn the event this information is protected by the Federal Confidentiality of Alcohol and Drug Abuse Patient Records regulations: The Federal rules restrict any use of the information to criminally investigate or prosecute any alcohol or drug abuse patient.[facility] CampusIn the event this information is protected by the Federal Confidentiality of Alcohol and Drug Abuse Patient Records regulations: The Federal rules restrict any use of the information to criminally investigate or prosecute any alcohol or drug abuse patient.[facility] CampusIn the event this information is protected by the Federal Confidentiality of Alcohol and Drug Abuse Patient Records regulations: The Federal rules restrict any use of the information to criminally investigate or prosecute any alcohol or drug abuse patient.[facility] CampusIn the event this information is protected by the Federal Confidentiality of Alcohol and Drug Abuse Patient Records regulations: The Federal rules restrict any use of the information to criminally investigate or prosecute any alcohol or drug abuse patient.[facility] CampusIn the event this information is protected by the Federal Confidentiality of Alcohol and Drug Abuse Patient Records regulations: The Federal rules restrict any use of the information to criminally investigate or prosecute any alcohol or drug abuse patient.[facility] CampusIn the event this information is protected by the Federal Confidentiality of Alcohol and Drug Abuse Patient Records regulations: The Federal rules restrict any use of the information to criminally investigate or prosecute any alcohol or drug abuse patient.[facility] CampusIn the event this information is protected by the Federal Confidentiality of Alcohol and Drug Abuse Patient Records regulations: The Federal rules restrict any use of the information to criminally investigate or prosecute any alcohol or drug abuse patient.[facility] CampusIn the event this information is protected by the Federal Confidentiality of Alcohol and Drug Abuse Patient Records regulations: The Federal rules restrict any use of the information to criminally investigate or prosecute any alcohol or drug abuse patient.[facility] CampusIn the event this information is protected by the Federal Confidentiality of Alcohol and Drug Abuse Patient Records regulations: The Federal rules restrict any use of the information to criminally investigate or prosecute any alcohol or drug abuse patient.[facility] CampusIn the event this information is protected by the Federal Confidentiality of Alcohol and Drug Abuse Patient Records regulations: The Federal rules restrict any use of the information to criminally investigate or prosecute any alcohol or drug abuse patient.[facility] CampusIn the event this information is protected by the Federal Confidentiality of Alcohol and Drug Abuse Patient Records regulations: The Federal rules restrict any use of the information to criminally investigate or prosecute any alcohol or drug abuse patient.[facility] CampusIn the event this information is protected by the Federal Confidentiality of Alcohol and Drug Abuse Patient Records regulations: The Federal rules restrict any use of the information to criminally investigate or prosecute any alcohol or drug abuse patient.[facility] CampusIn the event this information is protected by the Federal Confidentiality of Alcohol and Drug Abuse Patient Records regulations: The Federal rules restrict any use of the information to criminally investigate or prosecute any alcohol or drug abuse patient.[facility] CampusIn the event this information is protected by the Federal Confidentiality of Alcohol and Drug Abuse Patient Records regulations: The Federal rules restrict any use of the information to criminally investigate or prosecute any alcohol or drug abuse patient.[facility] CampusIn the event this information is protected by the Federal Confidentiality of Alcohol and Drug Abuse Patient Records regulations: The Federal rules restrict any use of the information to criminally investigate or prosecute any alcohol or drug abuse patient.[facility] CampusIn the event this information is protected by the Federal Confidentiality of Alcohol and Drug Abuse Patient Records regulations: The Federal rules restrict any use of the information to criminally investigate or prosecute any alcohol or drug abuse patient.[facility] CampusIn the event this information is protected by the Federal Confidentiality of Alcohol and Drug Abuse Patient Records regulations: The Federal rules restrict any use of the information to criminally investigate or prosecute any alcohol or drug abuse patient.[facility] CampusIn the event this information is protected by the Federal Confidentiality of Alcohol and Drug Abuse Patient Records regulations: The Federal rules restrict any use of the information to criminally investigate or prosecute any alcohol or drug abuse patient.[facility] CampusIn the event this information is protected by the Federal Confidentiality of Alcohol and Drug Abuse Patient Records regulations: The Federal rules restrict any use of the information to criminally investigate or prosecute any alcohol or drug abuse patient.[facility] CampusIn the event this information is protected by the Federal Confidentiality of Alcohol and Drug Abuse Patient Records regulations: The Federal rules restrict any use of the information to criminally investigate or prosecute any alcohol or drug abuse patient.[facility] CampusIn the event this information is protected by the Federal Confidentiality of Alcohol and Drug Abuse Patient Records regulations: The Federal rules restrict any use of the information to criminally investigate or prosecute any alcohol or drug abuse patient.[facility] CampusIn the event this information is protected by the Federal Confidentiality of Alcohol and Drug Abuse Patient Records regulations: The Federal rules restrict any use of the information to criminally investigate or prosecute any alcohol or drug abuse patient.[facility] CampusIn the event this information is protected by the Federal Confidentiality of Alcohol and Drug Abuse Patient Records regulations: The Federal rules restrict any use of the information to criminally investigate or prosecute any alcohol or drug abuse patient.[facility] CampusIn the event this information is protected by the Federal Confidentiality of Alcohol and Drug Abuse Patient Records regulations: The Federal rules restrict any use of the information to criminally investigate or prosecute any alcohol or drug abuse patient.[facility] CampusIn the event this information is protected by the Federal Confidentiality of Alcohol and Drug Abuse Patient Records regulations: The Federal rules restrict any use of the information to criminally investigate or prosecute any alcohol or drug abuse patient.[facility] CampusIn the event this information is protected by the Federal Confidentiality of Alcohol and Drug Abuse Patient Records regulations: The Federal rules restrict any use of the information to criminally investigate or prosecute any alcohol or drug abuse patient.[facility] CampusIn the event this information is protected by the Federal Confidentiality of Alcohol and Drug Abuse Patient Records regulations: The Federal rules restrict any use of the information to criminally investigate or prosecute any alcohol or drug abuse patient.[facility] CampusIn the event this information is protected by the Federal Confidentiality of Alcohol and Drug Abuse Patient Records regulations: The Federal rules restrict any use of the information to criminally investigate or prosecute any alcohol or drug abuse patient.[facility] CampusIn the event this information is protected by the Federal Confidentiality of Alcohol and Drug Abuse Patient Records regulations: The Federal rules restrict any use of the information to criminally investigate or prosecute any alcohol or drug abuse patient.[facility] CampusIn the event this information is protected by the Federal Confidentiality of Alcohol and Drug Abuse Patient Records regulations: The Federal rules restrict any use of the information to criminally investigate or prosecute any alcohol or drug abuse patient.[facility] Care Teams (unrecognized sec tion and content) Wire Charger Relationship Specialty Start Date End Date Miah Cottrell DO [address] [place] [address] PCP - General Family Practice 11/05/15 Wire Charger Relationship Specialty Start Date End Date Miah Cottrell, DO [address] [place] [address] PCP - General Family Practice 11/05/15 Wire Charger Relationship Specialty Start Date End Date Miah Cottrell, DO [address] [place] [address] PCP - General Family Practice 11/05/15 Wire Charger Relationship Specialty Start Date End Date Miah Cottrell, DO [address] [place] [address] PCP - General Family Practice 11/05/15 Wire Charger Relationship Specialty Start Date End Date Miah Cottrell PCP - General 07/31/16 Wire Charger Relationship Specialty Start Date End Date Miah Cottrell, DO [address] [place] [address] PCP - General Family Practice 11/05/15 Wire Charger Relationship Specialty Start Date End Date Miah Cottrell, DO [address] [place] [address] PCP - General Family Practice 11/05/15 Wire Charger Relationship Specialty Start Date End Date Miah Cottrell, DO [address] [place] [address] PCP - General Family Practice 11/05/15 Wire Charger Relationship Specialty Start Date End Date Miah Cottrell, DO [address] [place] [address] PCP - General Family Practice 11/05/15 Wire Charger Relationship Specialty Start Date End Date Miah Cottrell PCP - General 07/31/16 Wire Charger Relationship Specialty Start Date End Date Miah Cottrell, DO [address] [place] [address] PCP - General Family Practice 11/05/15 Wire Charger Relationship Specialty Start Date End Date Miah Cottrell, DO [address] [place] [address] PCP - General Family Practice 11/05/15 Wire Charger Relationship Specialty Start Date End Date Miah Cottrell PCP - General 07/31/16 Wire Charger Relationship Specialty Start Date End Date Miah Cottrell, DO [address] [place] [address] PCP - General Family Practice 11/05/15 Wire Charger Relationship Specialty Start Date End Date Miah Cottrell, DO [address] [place] [address] PCP - General Family Practice 11/05/15 Wire Charger Relationship Specialty Start Date End Date Miah Cottrell, DO [address] [place] [address] PCP - General Family Practice 11/05/15 Wire Charger Relationship Specialty Start Date End Date Miah Cottrell, DO [address] [place] [address] PCP - General Family Practice 11/05/15 Wire Charger Relationship Specialty Start Date End Date Miah Cottrell, DO [address] [place] [address] PCP - General Family Medicine 11/05/15 Wire Charger Relationship Specialty Start Date End Date Miah Cottrell, DO [address] [place] [address] PCP - General Family Medicine 11/05/15 Wire Charger Relationship Specialty Start Date End Date Miah Cottrell, DO [address] [place] [address] PCP - General Family Medicine 11/05/15 Wire Charger Relationship Specialty Start Date End Date Miah Cottrell, DO [address] [place] [address] PCP - General Family Medicine 11/05/15 Wire Charger Relationship Specialty Start Date End Date Miah Cottrell, DO [address] [place] [address] PCP - General Family Medicine 11/05/15 Wire Charger Relationship Specialty Start Date End Date Miah Cottrell, DO [address] [place] [address] PCP - General Family Medicine 11/05/15 Wire Charger Relationship Specialty Start Date End Date Miah Cottrell, DO [address] [place] [address] PCP - General Family Medicine 11/05/15 Wire Charger Relationship Specialty Start Date End Date Miah Cottrell, DO [address] [place] [address] PCP - General Family Medicine 11/05/15 Wire Charger Relationship Specialty Start Date End Date Miah Cottrell, DO [address] [place] [address] PCP - General Family Medicine 11/05/15 Wire Charger Relationship Specialty Start Date End Date Miah Cottrell, DO [address] [place] [address] PCP - General Family Medicine 11/05/15 Wire Charger Relationship Specialty Start Date End Date Miah Cottrell, DO [address] [place] [address] PCP - General Family Medicine 11/05/15 Wire Charger Relationship Specialty Start Date End Date Miah Cottrell DO [address] [place] [address] PCP - General Family Medicine 11/05/15 Wire Charger Relationship Specialty Start Date End Date Miah Cottrell DO [address] [place] [address] PCP - General Family Medicine 11/05/15 Wire Charger Relationship Specialty Start Date End Date Miah Cottrell DO [address] [place] [address] PCP - General Family Medicine 11/05/15 Wire Charger Relationship Specialty Start Date End Date Miah Cottrell DO [address] [place] [address] PCP - General Family Medicine 11/05/15 Wire Charger Relationship Specialty Start Date End Date Miah Cottrell DO [address] [place] [address] PCP - General Family Medicine 11/05/15 Wire Charger Relationship Specialty Start Date End Date Miha Cottrell DO [address] [place] [address] PCP - General Family Medicine 11/05/15 Wire Charger Relationship Specialty Start Date End Date Miah Cottrell DO [address] [place] [address] PCP - General Family Medicine 11/05/15 Wire Charger Relationship Specialty Start Date End Date Miah Cottrell DO [address] [place] [address] PCP - General Family Medicine 11/05/15 Team Status: Active Member Role Status Dates Dr. Miah Cottrell DO Family Provider Active Dr. Miah Cottrell DO Primary Care Provider Active Team Status: Inactive Member Role Status Dates Dr. Miah Cottrell DO Primary Care Provider Active Miah RICHARD Attending Provider Active Wire Charger Relationship Specialty Start Date End Date Miah Cottrell DO [address] [place] [address] PCP - General Family Medicine 11/05/15 Wire Charger Relationship Specialty Start Date End Date Miah Cottrell DO [address] [place] [address] PCP - General Family Medicine 11/05/15 Wire Charger Relationship Specialty Start Date End Date Miah Cottrell DO [address] [place] [address] PCP - General Family Medicine 11/05/15 Wire Charger Relationship Specialty Start Date End Date Miah Cottrell DO [address] [facility] [place] [address] PCP - General Family Medicine 11/05/15 Wire Charger Relationship Specialty Start Date End Date Miah Cottrell DO [address] [facility] [place] [address] PCP - General Family Medicine 11/05/15 Wire Charger Relationship Specialty Start Date End Date Miah Cottrell DO [address] [place] [address] PCP - General Family Medicine 11/05/15 Wire Charger Relationship Specialty Start Date End Date Miah Cottrell DO [address] [place] [address] PCP - General Family Medicine 11/05/15 Wire Charger Relationship Specialty Start Date End Date Miah Cottrell DO [address] [place] [address] PCP - General Family Medicine 11/05/15 Wire Charger Relationship Specialty Start Date End Date Miah Cottrell DO [address] [facility] [place] [address] PCP - General Family Medicine 11/05/15 Wire Charger Relationship Specialty Start Date End Date Miah Cottrell DO [address] [place] [place] [address] PCP - General Family Medicine 11/05/15 Wire Charger Relationship Specialty Start Date End Date Miah Cottrell DO [address] [place] [address] PCP - General Family Medicine 11/05/15 Wire Charger Relationship Specialty Start Date End Date Miah Cottrell DO [address] [place] [address] PCP - General Family Medicine 11/05/15 Team Status: Inactive Member Role Status Dates Dr. Miah Cottrell DO Primary Care Provider Active Dr. Mickey Hagen MD Attending Provider, Referring Provider Active Wire Charger Relationship Specialty Start Date End Date Miah Cottrell DO [address] [place] [address] PCP - General Family Medicine 11/05/15 Wire Charger Relationship Specialty Start Date End Date Miah Cottrell DO [address] [facility] [place] [address] PCP - General Family Medicine 11/05/15 Wire Charger Relationship Specialty Start Date End Date Miah Cottrell DO [address] [place] [address] PCP - General Family Medicine 11/05/15 Wire Charger Relationship Specialty Start Date End Date Miah Cottrell, [address] [place] [address] PCP - General Family Medicine 11/05/15 Wire Charger Relationship Specialty Start Date End Date Miah Cottrell DO [address] [place] [address] PCP - General Family Medicine 11/05/15 Wire Charger Relationship Specialty Start Date End Date Miah Cottrell DO [address] [place] [address] PCP - General Family Medicine 11/05/15 Wire Charger Relationship Specialty Start Date End Date Miah Cottrell DO [address] [place] [address] PCP - General Family Medicine 11/05/15 Wire Charger Relationship Specialty Start Date End Date Miah Cottrell DO [address] [place] [address] PCP - General Family Medicine 11/05/15 Wire Charger Relationship Specialty Start Date End Date Miah Cottrell DO [address] [place] [address] PCP - General Family Medicine 11/05/15 Wire Charger Relationship Specialty Start Date End Date Miah Cottrell DO [address] [place] [address] PCP - General Family Medicine 11/05/15 Wire Charger Relationship Specialty Start Date End Date Miah Cottrell DO [address] [facility] [place] [address] PCP - General Family Medicine 11/05/15 Wire Charger Relationship Specialty Start Date End Date Miah Cottrell DO [address] [place] [address] PCP - General Family Medicine 11/05/15 Wire Charger Relationship Specialty Start Date End Date Miah Cottrell DO [address] [place] [address] PCP - General Family Medicine 11/05/15 Wire Charger Relationship Specialty Start Date End Date Miah Cottrell DO [address] [place] [address] PCP - General Family Medicine 11/05/15 Wire Charger Relationship Specialty Start Date End Date Miah Cottrell DO [address] [place] [address] PCP - General Family Medicine 11/05/15 Wire Charger Relationship Specialty Start Date End Date Miah Cottrell DO [address] [place] [address] PCP - General Family Medicine 11/05/15 Wire Charger Relationship Specialty Start Date End Date Miah Cottrell DO [address] [facility] [place] [address] PCP - General Family Medicine 11/05/15 Ronna Quiroz APRN.SHINGLE INSPECTOR [address] [place] [address] Air Press Operator Family [facility] 07/27/24 Wily Abarca, ROLLER INSPECTOR AND MENDER.SHINGLE INSPECTOR [address] [place] [address] Air Press Operator Family Medicine 07/27/24 Wire Charger Relationship Specialty Start Date End Date Miah Cottrell DO [address] [place] [address] PCP - General Family Medicine 11/05/15 Ronna Quiroz, ROLLER INSPECTOR AND MENDER.SHINGLE INSPECTOR [address] [facility] [place] [address] [facility] 07/[facility]/24 Wily Abarca, ROLLER INSPECTOR AND MENDER.SHINGLE INSPECTOR [address] [place] [address] [facility] 07/27/24 Wire Charger Relationship Specialty Start Date End Date Miah Cottrell DO [address] [place] [address] PCP - General Family Medicine 11/05/15 Ronna Quiroz, ROLLER INSPECTOR AND MENDER.SHINGLE INSPECTOR [address] [place] [address] Air Press Operator Family Medicine 07/27/24 Wily Abarca, ROLLER INSPECTOR AND MENDER.SHINGLE INSPECTOR [address] [facility] [place] [address] [facility] 07/27/24 Wire Charger Relationship Specialty Start Date End Date Miah Cottrell DO [address] [place] [address] PCP - General Family Medicine 11/05/15 Ronna Quiroz, ROLLER INSPECTOR AND MENDER.SHINGLE INSPECTOR [address] [place] [address] [facility] 07/27/24 Wily Abarca, ROLLER INSPECTOR AND MENDER.SHINGLE INSPECTOR [address] [place] [address] [facility] 07/27/24 Wire Charger Relationship Specialty Start Date End Date Miah Cottrell DO [address] [place] [address] PCP - General Family Medicine 11/05/15 Wily Abarca, ROLLER INSPECTOR AND MENDER.SHINGLE INSPECTOR [address] [place] [address] [facility] 07/27/24 Wire Charger Relationship Specialty Start Date End Date Miah Cottrell DO [address] [place] [address] PCP - General Family Medicine 11/05/15 Wily Abarca, ROLLER INSPECTOR AND MENDER.SHINGLE INSPECTOR [address] [place] [address] [facility] 07/27/24 Wire Charger Relationship Specialty Start Date End Date Miah Cottrell DO [address] [place] [address] PCP - General Family Medicine 11/05/15 Wily Abarca, ROLLER INSPECTOR AND MENDER.SHINGLE INSPECTOR [address] [place] [address] [facility] 07/27/24 Wire Charger Relationship Specialty Start Date End Date Miah Cottrell DO [address] [place] [address] PCP - General Family Medicine 11/05/15 TevinWily, ROLLER INSPECTOR AND MENDER.SHINGLE INSPECTOR [address] [place] [address] [facility] 07/27/24 Wire Charger Relationship Specialty Start Date End Date Miah Cottrell DO [address] [place] [address] PCP - General Family Medicine 11/05/15 TevinWily, ROLLER INSPECTOR AND MENDER.SHINGLE INSPECTOR [address] [place] [address] [facility] 07/27/24 Wire Charger Relationship Specialty Start Date End Date Miah Cottrell DO [address] [place] [address] PCP - General Family Medicine 11/05/15 TevinWily, ROLLER INSPECTOR AND MENDER.SHINGLE INSPECTOR [address] [place] [address] [facility] 07/27/24 Wire Charger Relationship Specialty Start Date End Date Miah Cottrell DO [address] [place] [address] PCP - General Family Medicine 11/05/15 TevinWily, ROLLER INSPECTOR AND MENDER.SHINGLE INSPECTOR [address] [place] [address] [facility] 07/27/24 Cammie Fuentes, ROLLER INSPECTOR AND MENDER.SHINGLE INSPECTOR [address] [place] [address] Air Press Operator Family [facility] 02/02/25 Wire Charger Relationship Specialty Start Date End Date Miah Cottrell DO [address] [place] [place] [address] PCP - General Family Medicine 11/05/15 TevinWily, ROLLER INSPECTOR AND MENDER.SHINGLE INSPECTOR [address] [place] [address] Air Press Operator Family Medicine 07/27/24 Cammie Fuentes, ROLLER INSPECTOR AND MENDER.SHINGLE INSPECTOR [address] [place] [address] [facility] 02/02/25 Wire Charger Relationship Specialty Start Date End Date Miah Cottrell DO [address] [place] [address] PCP - General Family Medicine 11/05/15 TevinWily, ROLLER INSPECTOR AND MENDER.SHINGLE INSPECTOR [address] [place] [address] Air Press Operator Family Medicine 07/27/24 Cammie Fuentes, ROLLER INSPECTOR AND MENDER.SHINGLE INSPECTOR [address] [place] [address] [facility] Family [facility] 02/02/25 Wire Charger Relationship Specialty Start Date End Date Miah Cottrell DO [address] [place] [address] PCP - General Family Medicine 11/05/15 Wily Abarca, ROLLER INSPECTOR AND MENDER.SHINGLE INSPECTOR [address] [place] [address] Air Press Operator Family Medicine 07/27/24 Cammie Fuentes APRN.SHINGLE INSPECTOR [address] [place] [address] Air Press Operator Family Medicine 02/02/25 Wire Charger Relationship Specialty Start Date End Date Miah Cottrell DO [address] [place] [address] PCP - General Family Medicine 11/05/15 Wily Abarca, ROLLER INSPECTOR AND MENDER.SHINGLE INSPECTOR [address] [place] [address] Air Press Operator Family Medicine 07/27/24 Cammie Fuentes, ROLLER INSPECTOR AND MENDER.SHINGLE INSPECTOR [address] [place] [address] Air Press Operator Family [facility] 02/02/25 Wire Charger Relationship Specialty Start Date End Date Miah Cottrell DO [address] [place] [address] PCP - General Family Medicine 11/05/15 Wily Abarca, ROLLER INSPECTOR AND MENDER.SHINGLE INSPECTOR [address] [place] [address] Air Press Operator Family Medicine 07/27/24 Cammie Fuentes, ROLLER INSPECTOR AND MENDER.SHINGLE INSPECTOR [address] [place] [address] Air Press Operator Family [facility] 02/02/25 Wire Charger Relationship Specialty Start Date End Date Miah Cottrell DO [address] [place] [address] PCP - General Family Medicine 11/05/15 Wily Abarca, ROLLER INSPECTOR AND MENDER.SHINGLE INSPECTOR [address] [place] [address] Air Press Operator Family Medicine 07/27/24 Cammie Fuentes, ROLLER INSPECTOR AND MENDER.SHINGLE INSPECTOR [address] [place] [address] Air Press Operator Family [facility] 02/02/25 Wire Charger Relationship Specialty Start Date End Date Miah Cottrell DO [address] [place] [address] PCP - General Family Medicine 11/05/15 Wily Abarca, ROLLER INSPECTOR AND MENDER.SHINGLE INSPECTOR [address] [place] [address] Air Press Operator Family Medicine 07/27/24 Cammie Fuentes, ROLLER INSPECTOR AND MENDER.SHINGLE INSPECTOR [address] [place] [address] [facility] 02/02/25 Wire Charger Relationship Specialty Start Date End Date Miah Cottrell DO [address] [place] [address] PCP - General Family Medicine 11/05/15 Wily Abarca, ROLLER INSPECTOR AND MENDER.SHINGLE INSPECTOR [address] [place] [address] Air Press Operator Family Medicine 07/27/24 Cammie Fuentes, ROLLER INSPECTOR AND MENDER.SHINGLE INSPECTOR [address] [place] [address] [facility] 02/02/25 Wire Charger Relationship Specialty Start Date End Date Miah Cottrell DO [address] [place] [place] [address] PCP - General Family Medicine 11/05/15 [facility] ROLLER INSPECTOR AND MENDER.SHINGLE INSPECTOR [address] [place] [address] [facility] 07/27/24 GinaCammie, ROLLER INSPECTOR AND MENDER.SHINGLE INSPECTOR [address] [place] [address] [facility] 02/02/25 Wire Charger Relationship Specialty Start Date End Date Miah Cottrell DO [address] [place] [address] PCP - General Family Medicine 11/05/15 [facility], ROLLER INSPECTOR AND MENDER.SHINGLE INSPECTOR [address] [place] [address] [facility] 07/27/24 Cammie Fuentes, ROLLER INSPECTOR AND MENDER.SHINGLE INSPECTOR [address] [place] [address] [facility] 02/02/25 Wire Charger Relationship Specialty Start Date End Date Miah Cottrell DO [address] [place] [address] PCP - General Family Medicine 11/05/15 [facility], ROLLER INSPECTOR AND MENDER.SHINGLE INSPECTOR [address] [place] [place] [address] [facility] Family [facility] 07/27/24 Cammie Fuentes, ROLLER INSPECTOR AND MENDER.SHINGLE INSPECTOR [address] [place], [place] [address] [facility] 02/02/25 Wire Charger Relationship Specialty Start Date End Date Miah Cottrell DO [address] [place], [place] [address] PCP - General Family Medicine 11/05/15 Wily Abarca, ROLLER INSPECTOR AND MENDER.SHINGLE INSPECTOR [address] [place], [place] [address] [facility] 07/27/24 Cammie Fuentes, ROLLER INSPECTOR AND MENDER.SHINGLE INSPECTOR [address] [place], [place] [address] [facility] 02/02/25 Team Status: Active Member Role/Relationship Status Dates Dr. Miah Cottrell DO Primary care physician Active Team Status: Inactive Member Role/Relationship Status Dates Dr. Miah Cottrell DO Primary care physician Active Start: May 26, 2025 End: May 26, 2025 Dr. Miah Cottrell DO Referring Provider Active Start: May 26, 2025 End: May 26, 2025 Dr. Madeline Obrien MD Attending physician Active Start: May 26, 2025 End: May 26, 2025 Team Status: Inactive Member Role/Relationship Status Dates Dr. Miah Cottrell DO Primary care physician Active Start: May 26, 2025 End: May 26, 2025 Dr. Madeline Obrien MD Attending physician Active Start: May 26, 2025 End: May 26, 2025 Dr. Madeline Obrien MD Referring Provider Active Start: May 26, 2025 End: May 26, 2025 Team Status: Inactive Member Role/Relationship Status Dates Dr. Miah Cottrell DO Primary care physician Active Start: May 26, 2025 End: May 26, 2025 Dr. Madeline Obrien MD Attending physician Active Start: May 26, 2025 End: May 26, 2025 Team Status: Inactive Member Role/Relationship Status Dates Dr. Miah Cottrell DO Primary care physician Active Start: June 01, 2025 End: June 01, 2025 Dr. Madeline Obrien MD Attending physician Active Start: June 01, 2025 End: June 01, 2025 Dr. Madeline Obrien MD Referring Provider Active Start: June 01, 2025 End: June 01, 2025 Team Status: Inactive Member Role/Relationship Status Dates Dr. Miah Cottrell DO Primary care physician Active Start: June 09, 2025 End: June 09, 2025 Dr. Miah Cottrell DO Referring Provider Active Start: June 09, 2025 End: June 09, 2025 Dr. Madeline Obrien MD Attending physician Active Start: June 09, 2025 End: June 09, 2025 Team Status: Inactive Member Role/Relationship Status Dates Dr. Miah Cottrell DO Primary care physician Active Start: June 11, 2025 End: June 11, 2025 Dr. Miah Cottrell DO Referring Provider Active Start: June 11, 2025 End: June 11, 2025 Dr. Madeline Obrien MD Attending physician Active Start: June 11, 2025 End: June 11, 2025 Team Status: Inactive Member Role/Relationship Status Dates Dr. Miah Cottrell DO Primary care physician Active Start: June 18, 2025 End: June 18, 2025 Dr. Madeline Obrien MD Attending physician Active Start: June 18, 2025 End: June 18, 2025 Dr. Madeline Obrien MD Referring Provider Active Start: June 18, 2025 End: June 18, 2025 Team Status: Active Member Role/Relationship Status Dates Dr. Miah Cottrell DO Primary care physician Active Start: June 18, 2025 Dr. Madeline Obrien MD Attending physician Active Start: June 18, 2025 Dr. Madeline Obrien MD Referring Provider Active Start: June 18, 2025 Dr. 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) Hyperlipidemia, mixed Procedures CTA HEAD WO/W IVCON CT ANGIOGRAPHY HEAD W/CONTRAST/NONCONTRAST Miah Cottrell, DO [address] [place] [address] Ct Imaging Referral ID Status Reason Start Date Expiration Date V isits Requested Visits Authorized [id number] Closed Auto-Generate d Referral 12/26/2021 01/25/2023 1 1 Reason Comments Results Reason Onset Date Comments Refill Request 02/02/2022 Reason Comments Refill Request Reason Comments Established Patient Reason Comments Follow Up Tremors Reason Comments First Time Treatment Education SQ Methot rexate Reason Comments Trauma Left leg 2 weeks ago , sore won't heal, painful Reason Comments Follow Up EC- 06/22- left leg w ound. Completed antibiotic on 07/02. Reason Comments Wound Check Left leg Reason Comments Mammogram Result Call Back Reason Onset Date Comments Population Health Navigation Outreach 11/21/2022 HCC GAP Reason Comments Medication Request Reason Onset Date Comments Refill Request 12/21/2022 Reason Comments New Patient Prolia Injection. Wo uld like to possibly transfer care. Reason Comments Appointment Reason Comments Patient Question Reason Onset Date Comments Refill Request 03/29/2023 Reason Comments Results Appointment Reason Comments Follow Up Specialty Diagnoses / Procedures Referred By Contac t Referred To Contact Diagnoses Essential tremor Procedures PROVIDER ORDERED FOLLOW UP OFFICE/OUTPATIENT NEW HIGH MDM 60-74 MINUTES Marko Wood MD [facility] [address] [place] [address] Referral ID Status Reason Start Date Expiration Date V isits Requested Visits Authorized [id number] Closed PCP Requested Referral 02/01/2023 05/02/2023 1 1 Reason Comments Follow Up FNA Reason Comments Procedure Ultrasound Guided Fi ne Needle Aspiration Thyroid right Reason Comments Results Thyroid FNA Reason Onset Date Comments F/U 3 Month Immunizations 06/15/2023 Flu vaccination Reason Comments Radiology US Specialty Diagnoses / Procedures Referred By Contac t Referred To Contact US IMAGING Diagnoses Thyroid nodule Procedures US THYROID/PARATHYROID US SOFT TISSUE HEAD & NECK REAL TIME IMGE DOCM Miah Cottrell, DO [address] [place] [address] Us Imaging [id number] Referral ID Status Reason Start Date Expiration Date V isits Requested Visits Authorized [id number] Closed Auto-Generate d Referral 03/12/2023 04/10/2024 1 1 Reason Comments Radiology US 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 Referred By Contac t Referred To Contact [facility] Diagnoses Osteoporosis, postmenopausal Tariq, Palma, ROLLER INSPECTOR AND MENDER.SHINGLE INSPECTOR [address] [place] [address] [facility] [address] [place] [id number] Referral ID Status Reason Start Date Expiration Date V isits Requested Visits Authorized [id number] Closed Auto-Generate d Referral 07/16/2023 10/14/2023 1 1 Reason Comments Established Patient 155/74 Reason Onset Date Comments Refill Request 12/01/2023 Reason Comments 6 Month Exam Reason Comments Radiology CT Specialty Diagnoses / Procedures Referred By Contac t Referred To Contact CT IMAGING Diagnoses Nodule of lower lobe of left lung Procedures CT CHEST WO IVCON DIAGNOSTIC COMPUTED TOMOGRAPHY THORAX W/O CNTRST Miah Cottrell L, DO [address] [place] [address] Ct Imaging [place] [address] Referral ID Status Reason Start Date Expiration Date V isits Requested Visits Authorized [id number] Closed Auto-Generate d Referral 12/17/2023 01/15/2025 1 1 Reason Comments /p up for passed couple months of and on B/p up fo passed couple months, getting headaches Reason Comments Established Patient Specialty Diagnoses / Procedures Referred By Contact Referred To Contact [facility] [place] [address] [place] [address] [facility] [address] [place] [address] Referral ID Status Reason Start Date Expiration Date V isits Requested Visits Authorized [id number] Closed Auto-Generate d Referral 01/28/2024 04/27/2024 1 1 Reason Comments Medication Problem Reason Comments Vaginal Problem Reason Comments 3week f/up for b/p Reason Comments Order for BP monitor Reason Comments PMR Reason Comments Rash x 3 days on right ar m Reason Comments Rash Rash on right arm, c hest, and legs x 1 week Specialty Diagnoses / Procedures Referred By Contac t Referred To Contact Diagnoses Essential tremor Procedures PROVIDER ORDERED FOLLOW UP Marko Wood MD [address] [address] Referral ID Status Reason Start Date Expiration Date V isits Requested Visits Authorized [id number] Closed PCP Requested Referral 04/19/2023 07/18/2023 1 1 Reason Onset Date Comments Refill Request 05/13/2024 Reason Comments Radio Gen RMP Specialty Diagnoses / Procedures Referred By Contac t Referred To Contact XR IMAGING Diagnoses Neck pain Procedures XR CERV OTHER 4V AP/LAT/OBL RADEX SPINE CERVICAL 4 OR 5 VIEWS Palma Lovett, ROLLER INSPECTOR AND MENDER.SHINGLE INSPECTOR [address] [place] [address] [place] [address] Referral ID Status Reason Start Date Expiration Date V isits Requested Visits Authorized [id number] Closed Auto-Generate d Referral 12/16/2021 01/15/2023 1 1 Reason Comments F/U 6 months BP Reason Comments b/p check Pt brought home bloo d pressure with her, does not think b/p meds helping head feels funny. Reason Onset Date Comments Refill Request 07/28/2024 Reason Onset Date Comments Refill Request 08/14/2024 Reason Onset Date Comments Refill Request 09/22/2024 Medication Request 09/22/2024 Reason Onset Date Comments Refill Request 11/10/2024 Reason Comments 6 Month Exam Reason Comments Established Patient Reason Comments Radio Gen RMP Specialty Diagnoses / Procedures Referred By Contac t Referred To Contact XR IMAGING Diagnoses Neck pain Procedures XR CERV OTHER 4V AP/LAT/OBL RADEX SPINE CERVICAL 4 OR 5 VIEWS Palma Lovett, ROLLER INSPECTOR AND MENDER.SHINGLE INSPECTOR [address] [place] [address] Phone: tel: fax: [place] [address] Referral ID Status Reason Start Date Expiration Date V isits Requested Visits Authorized [id number] Closed Auto-Generate d Referral 02/06/2025 03/08/2026 1 1 Reason Onset Date Comments SPP Inflammatory Conditions - Treatment Referral 02/11/2025 [employer] Insurance Authorization 02/11/2025 PA submi ssion pending Reason Comments Neck Pain New Patient Specialty Diagnoses / Procedures Referred By Contac t Referred To Contact [facility] [place] Diagnoses Neck pain Procedures [facility] OFFICE/OUTPATIENT [facility] 60 MINUTES Palma Lovett, CARMINA.SHINGLE INSPECTOR [address] [place] [address] Phone: tel: fax: Referral ID Status Reason Start Date Expiration Date V isits Requested Visits Authorized [id number] Closed PCP Requested Referral 02/06/2025 02/06/2026 1 1 Reason Onset Date Comments Refill Request 02/16/2025 Reason Comments Results Cervical MRI 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 Comments F/U 3 Month Specialty Diagnoses / Procedures Referred By Contac t Referred To Contact Diagnoses Essential tremor Procedures OFFICE/OUTPATIENT [facility] 60 MINUTES Marko Wood MD [address] [address] Phone: tel: fax: Referral ID Status Reason Start Date Expiration Date V isits Requested Visits Authorized [id number] Closed PCP Requested Referral 2024 07/13/2024 1 1 Ordered Prescriptions (unrec ognized section and content) Prescription Sig Dispensed Refills Start Date End Da te ondansetron (ZOFRAN-ODT) 4 MG disintegrating tabletIndications:Traumat ic arthritis of right ankle Take 1 tablet by mouth 3 times daily as needed for Nausea or Vomiting 21 tablet 0 03/23/2022 aspirin EC 81 MG EC tabletIndications:Traumat ic arthritis of right ankle Take 1 tablet by mouth in the morning. 30 tablet 0 03/23/2022 oxyCODONE-acetaminophen (PERCOCET) 5-325 MG per tabletIndications:Traumat ic arthritis of right ankle Take 1 tablet by mouth every 6 hours as needed for Pain for up to 7 days. Intended supply: 7 days. Take lowest dose possible to manage pain 28 tablet 0 03/23/2022 03/30/2022 Scheduled Active and Recently Administ ered Medications (unrecognized section and content) Medication Order 03/21/2022 03/22/2022 03/23/2022 acetaminophen (TYLENOL) tablet 1,000 mg (COMPLETED) 1,000 mg, Oral, ONCE, 1 dose, On Shelli 03/23/22 at 0730, Maximum dose of acetaminophen is 4000 mg from all sources in 24 hours. Do not administer if patient has taken tylenol <4 hours earlier. Do not give if contraindicated ie. patient has active liver disease or cirrhosis., Pre-op (day of surgery) 0738 (Given - Provid er: Lucia Garza RN) ceFAZolin (ANCEF) 2000 mg in dextrose 4 % 100 mL IVPB (premix) (COMPLETED) 2,000 mg, IntraVENous, MANAGER MARKET INTELLIGENCE TO O.R., 1 dose, On Shelli 03/23/22 at 0730, Antimicrobial Indications: Surgical Prophylaxis, Administer within 1 hour prior to incision. Recommend to repeat in 3-4 hours after initial dose if still intra-op., Pre-op (day of surgery) 1009 (Given by Other Clinician - Provider: Charmaine Juarez RN)1039 (Stopped - Provider: Charmaine Juarez RN) famotidine (PEPCID) tablet 20 mg (COMPLETED) 20 mg, Oral, ONCE, 1 dose, On Shelli 03/23/22 at 0730, Pre-op (day of surgery) 0738 (Given - Provid er: Lucia Garza RN) LORazepam (ATIVAN) injection 0.5 mg 0.5 mg, IntraVENous, ONCE, 1 dose, On Shelli 03/23/22 at 1200, PACU only 1200 (Due) sodium chloride flush 0.9 % injection 5-40 mL 5-40 mL, IntraVENous, EVERY 12 HOURS SCHEDULED (2 times per day), First dose on Shelli 03/23/22 at 0900, Until Discontinued, For Line Patency: Peripheral IV = 5 mL; Midline or Central Line = 10 mL/lumen. If following IV push medication, administer flush at same rate as the IV push. Flush volume is determined by type of infusion therapy being given. For non-viscous solutions use: Peripheral IV = 5 mL Midline or Central Line = 10 mL/lumen For viscous solutions (i.e. blood components, parenteral nutrition, contrast media, or after obtaining blood sample) use: Peripheral IV = 10 mL Midline or Central Line = 20 mL/lumen, Pre-op (day of surgery) 0900 (Due)2100 (Due) sodium chloride flush 0.9 % injection 5-40 mL 5-40 mL, IntraVENous, EVERY 12 HOURS SCHEDULED (2 times per day), First dose on Shelli 03/23/22 at 2100, Until Discontinued, For Line Patency: Peripheral IV = 5 mL; Midline or Central Line = 10 mL/lumen. If following IV push medication, administer flush at same rate as the IV push. Flush volume is determined by type of infusion therapy being given. For non-viscous solutions use: Peripheral IV = 5 mL Midline or Central Line = 10 mL/lumen For viscous solutions (i.e. blood components, parenteral nutrition, contrast media, or after obtaining blood sample) use: Peripheral IV = 10 mL Midline or Central Line = 20 mL/lumen, PACU only 2100 (Due) Continuous Medication Order 03/21/2022 03/22/2022 03/23/2022 lactated ringers infusion IntraVENous, at 50 mL/hr, CONTINUOUS, Starting on Shelli 03/23/22 at 0730, Upon admission to sameday - please start iv if patient does not have iv access. Use 500ml NS for patients on dialysis., Pre-op (day of surgery) 0738 (New Bag - Prov ider: Lucia Garza RN) lactated ringers infusion IntraVENous, at 50 mL/hr, CONTINUOUS, Starting on Shelli 03/23/22 at 1200, PACU only 1200 (Due) PRN Medication Order 03/21/2022 03/22/2022 03/23/2022 0.9 % sodium chloride bolus 500 mL (8.61 mL/kg), IntraVENous, at 1,000 mL/hr, Administer over 0.5 Hours, PRN, Anti-nausea, Starting on Shelli 03/23/22 at 1137, PACU only 0.9 % sodium chloride infusion IntraVENous, at 5-250 mL/hr, PRN, if patient receiving piggyback infusions and maintenance fluids are not ordered OR KVO fluids to protect IV site / prevent frequent line interruptions/ long duration, Starting on Shelli 03/23/22 at 0701, For piggyback infusion, administer at same rate as piggyback for a total of 25 mL. Enter 25 mL into dose field and piggyback rate into rate field of order. If piggyback is infusing at a rate less than 100 mL/hr, enter 25 mL into dose field and 100 mL/hr into rate field of order. For KVO fluids, enter rate of 20 mL/hr or less into rate field of order., Pre-op (day of surgery) diphenhydrAMINE (BENADRYL) injection 12.5 mg 12.5 mg, IntraVENous, ONCE PRN, 1 dose, Starting on Shelli 03/23/22 at 1137, Until Shelli 03/23/22 at 2359, Itching, PACU only hydrALAZINE (APRESOLINE) injection 5 mg(Linked Group 1) 5 mg, IntraVENous, EVERY 10 MIN PRN, 2 doses, Starting on Shelli 03/23/22 at 1137, Until Discontinued, High Blood Pressure, for SBP greater than 160 mmHg for 2 consecutive measurements taken from different sites, PRN for SBP > 160 for 2 consecutive measurements, and if one of the following conditions is met: 1) If IV labetolol is ineffective. 2) If HR is under 60. 3) If patient has heart block, COPD or asthma. If both labetalol and hydralazine ineffective, notify anesthesiologist. for use Sameday and, PACU only HYDROmorphone (DILAUDID) injection 0.25 mg HYDROmorphone (DILAUDID) 1.5mg IV is equivalent to morphine 10mg IV, 0.25 mg, IntraVENous, EVERY 5 MIN PRN, 4 doses, Starting on Shelli 03/23/22 at 1137, Until Discontinued, Pain Moderate (4-6), Phase I and Phase II- Initial therapy for moderate pain (4-6). Restricted to a 90 minute time frame starting when the patient can verbally state their pain score. If oral meds are utilized, do not return to initial therapy medications. SDS and, PACU only HYDROmorphone (DILAUDID) injection 0.5 mg HYDROmorphone (DILAUDID) 1.5mg IV is equivalent to morphine 10mg IV, 0.5 mg, IntraVENous, EVERY 5 MIN PRN, 4 doses, Starting on Shelli 03/23/22 at 1137, Until Discontinued, Pain Severe (7-10), Phase I or Phase II- Initial therapy for severe pain (7-10). Restricted to a 90 minute time frame starting when the patient can verbally state their pain score. If oral meds are utilized, do not return to initial therapy medications. SDS and, PACU only labetalol (NORMODYNE;TRANDATE) injection 5 mg(Linked Group 1) 5 mg, IntraVENous, EVERY 10 MIN PRN, 2 doses, Starting on Shelli 03/23/22 at 1137, Until Discontinued, High Blood Pressure, for SBP greater than 160 mmHg for 2 consecutive measurements taken from different sites., PRN for SBP >160 for 2 consecutive measurements, if HR is 60 or greater. If beta matilde is contraindicated (HR less than 60, heart block, COPD or asthma) use hydralazine IV order. for use Sameday and, PACU only lidocaine PF 1 % injection 1 mL 1 mL, IntraDERmal, ONCE PRN, 1 dose, Starting on Shelli 03/23/22 at 0701, Until Shelli 03/23/22 at 2359, IV start, Pre-op (day of surgery) meperidine (DEMEROL) injection 12.5 mg 12.5 mg, IntraVENous, EVERY 5 MIN PRN, 4 doses, Starting on Shelli 03/23/22 at 1137, Until Discontinued, Shivering, , May give every 5 minutes to max of 50mg., PACU only ondansetron (ZOFRAN) injection 4 mg 4 mg, IntraVENous, ONCE PRN, 1 dose, Starting on Shelli 03/23/22 at 1137, Until Shelli 03/23/22 at 2359, Nausea, Initial antiemetic therapy., PACU only oxyCODONE (ROXICODONE) immediate release tablet 10 mg (COMPLETED) 10 mg, Oral, PRN, 1 dose, Starting on Shelli 03/23/22 at 1137, Until Shelli 03/23/22 at 1212, Pain Severe (7-10), PHASE II, PACU only 1212 (Given - Provid er: Charmaine Juarez RN) sodium chloride flush 0.9 % injection 5-40 mL 5-40 mL, IntraVENous, PRN, Starting on Shelli 03/23/22 at 0701, Until Discontinued, Line Care, After every IV line use, For Line Patency: Peripheral IV = 5 mL; Midline or Central Line = 10 mL/lumen. If following IV push medication, administer flush at same rate as the IV push. Flush volume is determined by type of infusion therapy being given. For non-viscous solutions use: Peripheral IV = 5 mL Midline or Central Line = 10 mL/lumen For viscous solutions (i.e. blood components, parenteral nutrition, contrast media, or after obtaining blood sample) use: Peripheral IV = 10 mL Midline or Central Line = 20 mL/lumen, Pre-op (day of surgery) sodium chloride flush 0.9 % injection 5-40 mL 5-40 mL, IntraVENous, PRN, Starting on Shelli 03/23/22 at 1137, Until Discontinued, Line Care, After every IV line use, For Line Patency: Peripheral IV = 5 mL; Midline or Central Line = 10 mL/lumen. If following IV push medication, administer flush at same rate as the IV push. Flush volume is determined by type of infusion therapy being given. For non-viscous solutions use: Peripheral IV = 5 mL Midline or Central Line = 10 mL/lumen For viscous solutions (i.e. blood components, parenteral nutrition, contrast media, or after obtaining blood sample) use: Peripheral IV = 10 mL Midline or Central Line = 20 mL/lumen, PACU only Linked Groups Order Group 1: labetalol (NORMODYNE;TRANDATE) injection 5 mgJump to med 5 mg, IntraVENous, EVERY 10 MIN PRN, 2 doses, Starting on Shelli 03/23/22 at 1137, Until Discontinued, High Blood Pressure, for SBP greater than 160 mmHg for 2 consecutive measurements taken from different sites.
PRN for SBP >160 for 2 consecutive measurements, if HR is 60 or greater. If beta matilde is contraindicated (HR less than 60, heart block, COPD or asthma) use hydralazine IV order. for use Sameday and
PACU only Or hydrALAZINE (APRESOLINE) injection 5 mgJump to med 5 mg, IntraVENous, EVERY 10 MIN PRN, 2 doses, Starting on Shelli 03/23/22 at 1137, Until Discontinued, High Blood Pressure, for SBP greater than 160 mmHg for 2 consecutive measurements taken from different sites
PRN for SBP > 160 for 2 consecutive measurements, and if one of the following conditions is met: 1) If IV labetolol is ineffective. 2) If HR is under 60. 3) If patient has heart block, COPD or asthma. If both labetalol and hydralazine ineffective, notify anesthesiologist. for use Sameday and
PACU only Goals (unrecognized section and content) Goals may be documented in a n alternate sectionGoals may be documented in an alternate sectionGoals may be documented in an alternate sectionGoals may be documented in an alternate sectionGoals may be documented in an alternate sectionGoals may be documented in an alternate section FOR RECORDS PERTAINING TO PATIENTS WHO ARE OR HAVE BEEN ENROLLED IN A CHEMICAL DEPENDENCY/SUBSTANCEABUSE PROGRAM, SOME INFORMATION MAY BE OMITTED. This clinical summary was aggregated from multiple sources. Caution should be exercised in using it in the provision of clinical care. This summary normalizes information from multiple sources, and as a consequence, information in this document may materially change the coding, format and clinical context of patient data. In addition, data may be omitted in some cases. CLINICAL DECISIONS SHOULD BE BASED ON THE PRIMARY CLINICAL RECORDS. [facility]. provides no warranty or guarantee of the accuracy or completeness of information in this document.
[2025-07-14 21:00] LABS: Scan Indicated on CBC? Y/N YES- FLAGS NOTED
== END | disposition home or self-care (01) ==
LOC: MTLAB 14:17
PROVIDERS: PCP Student in an Organized Health Care Education/Training Program; Referring Provider Internal Medicine Gastroenterology; Visit Provider Internal Medicine Gastroenterology
DX: R10.9 Unspecified abdominal pain (principal); K62.5 Hemorrhage of anus and rectum
CPT/HCPCS: 36415; 80053; 85027; 86140

== ENCOUNTER 2025-07-21 17:26 | Inpatient (IN) | payer MEDICARE, OTHER, SELFPAY ==
[2025-07-21 17:28] VITALS: BP 120/60; PULSE 96; RESP 18; TEMP 36; O2SAT 97; BMI 21.7
[2025-07-21 18:17] LABS: Mucous, Urine 0 SEEN /hpf (<or=2+)
--- NOTE | 2025-07-21 18:18 | CT_ITS ---
PROCEDURE: ABDOMEN/PELVIS W IV CONT ONLY 07/21/2025 REASON FOR EXAM: ABDOMINAL PAIN LLQ TECHNIQUE: Procedure Code: [id number] Modality: CT Procedure: ABDOMEN/PELVIS W IV CONT ONLY Coronal and Sagittal reconstruction series were provided. CONTRAST: 100 cc of Isovue 370 One or more dose reduction techniques were used (e.g., Automated exposure control, adjustment of the mA and/or kV according to patient size, use of iterative reconstruction technique. COMPARISON: CT abdomen and pelvis 07/06/2025, 06/01/2025 FINDINGS: Lung bases: Mild dependent atelectasis Liver: Normal size. No mass. Stable benign calcified granulomas. Gallbladder: Surgically absent. No biliary ductal dilatation. Spleen: Normal size. Stable benign calcified granulomas. Pancreas: Normal size without evidence of mass surrounding inflammation or ductal dilation. Adrenals: No masses Kidneys: Normal renal sizes. No hydronephrosis. Bladder: Unremarkable. Reproductive Organs: Prior hysterectomy. Adnexal regions are unremarkable. Bowel: Redemonstrated severe sigmoid diverticulosis. Diffuse wall thickening of the sigmoid colon suggestive of sigmoiditis. No bowel obstruction. Appendix: Surgically absent. Lymph nodes: Unremarkable. Vasculature: Diffuse atherosclerotic calcifications. No aneurysm. Peritoneum / Retroperitoneum: No free fluid or air. Bones: Stable mild compression deformity of L3. No acute new fractures. Diffuse degenerate changes. CT/Abdomen/Pelvis W IV Cont ONLY IMPRESSION: 1. Extensive sigmoid diverticulosis with possible developing sigmoiditis. 2. Stable mild compression deformity of L3. Reading Location: [facility]
[2025-07-21 18:20] LABS: Color, Urine Yellow (Yellow); Glucose, Dipstick 50 mg/dl (Normal); Hematocrit 39.2 % (37-47); Hemoglobin 13.1 g/dL (12.0-15.0); Immature Granulocytes Count 0.050 X10^3/uL (0.0-0.0); Ketone-Dipstick Negative (Negative); Leukocyte Esterase-Dipstick 25 /ul (Negative); Mean Corp Hgb Conc 33.4 g/dL (32-36); Mean Corpuscular Volume 95.6 fL (81-99); Mean Platelet Vol. 10.3 fl (6.2-12.0); NRBC Flagged by Analyzer 0 % (0-5); Nitrite-Dipstick Negative (Negative); Occult Blood-Urine 250 /ul (Negative); Platelet Count 309 K/mm3 (150-450); Protein-Dipstick 30 mg/dl (Negative); RBC Distribution Width CV 13.0 % (11.6-14.6); RBC Distribution Width SD 45.7 fl (35.1-43.9); Red Blood Count 4.10 M/mm3 (4.2-5.4); Specific Gravity, Urine 1.020 (1.002-1.030); Urine Bilirubin Dipstick Negative (Negative); White Blood Count 13.2 K/mm3 (4.4-11.0)
--- OUTSIDE RECORDS SUMMARY | 2025-07-21 18:22 | XMS RPT_ITS | CCD ---
Author Organization [facility] Care Team Providers Care Insurance Sales Professional Name Role Phone Miah Cottrell Primary Care Provider MIAH COTTRELL Primary Care Unavailable PALMA LOVETT Referring Unavailable PALMA LOVETT Referring Unavailable MIAH COTTRELL Primary Care Unavailable Miah Cottrell DO Primary Care Provider Miah Cottrell DO Primary Care Provider Quiroz MIXING TUMBLER OPERATOR.RIP SAW OPERATORRonna Unavailable Tevin MIXING TUMBLER OPERATOR.Wily CABELLO Unavailable Gina MIXING TUMBLER OPERATOR.RIP SAW OPERATORCammie Unavailable MIAH COTTRELL Primary Care Unavailable MARKO [...] Referring Unavailable MIAH COTTRELL Primary Care Unavailable TEVINSEFERINO GALVINEKAH Referring Unavailable MIAH COTTRELL Primary Care Unavailable [...] Dr. Correa Attending Physician Camille JAMES, Dr. Corera Referring Provider Camille JAMES, Dr. Correa Nurse [...] sulfaSALAzine; Translations: [SULFASALAZINE] Drug Allergy 03-26-[address] 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 steroids; Translations: [detention 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] Onset: 3 Episodic Other aftercare (4 sources) Long-term current use of systemic steroid; Translations: [detention (current) use of systemic steroids] Episodic Other aftercare (3 sources) Long-term current use of drug therapy; Translations: [Other termite treater (current) drug therapy] 03-18-2024 Episodic Other circulatory [...] sources) Polymyalgia rheumatica; Translations: [PMR (polymyalgia rheumatica) ([facility])] Onset: 3 Chronic Other connective [...] 03-12-2023 03-12-2023 Episodic Other aftercare (20 sources) detention systemic steroid user; Translations: [detention (current) use of systemic steroids] Onset: 03-02-2017 03-02-2017 Episodic Other aftercare (2 sources) Other skilled nursing (current) drug therapy; Translations: [Encounter for long-term [...] Interpretation Reference Range Facility MR/Viridiana 06-26-2025 MR/[facility] [address], [address] [place] [address] OFFICE VISIT Date of Service: 06/26/25 MR#: [id number] Acct: [id number] Name: CECELIA QUIROZ Rep #: [id number] : 1950 Provider: Dr. Madeline Kyle i, MD Age/Sex: 75/F Location: [facility] Status: Signed Intake Vital Signs 06/18/25 06:54 06/26/25 13:42 Height 5 ft 3 in 5 ft 3 in Weight: 139 lb BMI 24.6 BP 123/70 H Pulse 85 Intake Visit Reasons: BIOPSY RESULTS Chief Complaint: postoperative visit with Biopsy results Operator Supply Required: No Accompanied by: self Is patient [...] denosumab 60 mg/mL subcutaneous 60 mg subcut [id number] 05/26/2503/13 History syringe (Prolia) latanoprost 0.005 % [...] stool; No (more content not included)... Normal [facility] Discharge Instructionon 05-22 Discharge Instruction [facility] Medical Records Department [address] [place] [address] Instructions for Home/Discharge Instructions 06/18/25 0808 MR#: [id number] Acct: [id number] Name: CECELIA QUIROZ Rep #: [id number] : 1950 75 From: Madeline Obrien MD [...] Care Provider: Miah Cottrell Instructions Print Language: Croatian Discharge Orders/Prescriptions Prescriptions: New oxycodone-acetaminophe n 5-325 mg tablet 1 tab PO Q8H PRN (Reason: pain) 3 Days Qty: 10 0RF cephalexin 500 mg capsule 500 mg PO Q12 3 Days Qty: 6 0RF Continued latanoprost 0.005 % drops 1 drp ophthalmic (eye) QHS Prolia 60 mg/mL syringe 60 mg subcut [id number] prednisone 10 MG tablet 10 mg PO [...] CC: Dr. Miah Cottrell DO Signed Normal [facility] MR/POSTOP.[facility] 06-18-2025 MR/POSTOP.[facility] Medical Records Department [address] [place] [address] Anesthesia Postop Eval I 06/18/25 0833 MR#: [id number] Acct: [id number] Name: CECELIA QUIROZ Rep #: [id number] : 1950 75 From: Ella Gray CRNA PCP: Dr. Miah Cottrell DO Status:REG SDC Y Race: C Location: [place] [address] Anesthesia: Postop Eval I Current Vital Signs [...] Eval 1 completed: Yes 06/18/25832 Ella Marina MEDICAL RECORD SPECIALIST Cosigner Signature: Date CC: Signed Normal [facility] MR/ROEQPIOR0tf 06-18-2025 [facility] [address] [place] [address] Anesthesia Postop Eval II 06/18/25 1147 MR#: [id number] Acct: [id number] Name: CECELIA QUIROZ Rep #: [id number] : 1950 75 From: Azael Gilbert MD PCP: Dr. Miah Cottrell, DO Status:[facility] Y Race: C Location: [facility] Anesthesia Postop Eval I Sum Postop Eval Completion status Anesthesia document: Postop Eval 1 completed: Yes Anesthesia Postop Eval I Summary Anesthesia Postop Eval I Summary: Anesthesia Postop Eval I: Assessment Summary Airway patent Yes 06/18/25 08:33 MEDICAL RECORD SPECIALIST.CHRISTIEOBY Spontaneous unlabored Yes 06/18/25 08:33 MEDICAL RECORD SPECIALIST.SKOBY respirations Mental status Awake,Calm 06/18/25 08:33 MEDICAL RECORD SPECIALIST.SKOBY nausea No 06/18/25 08:33 MEDICAL RECORD SPECIALIST.SKOBY Vomiting No 06/18/25 08:33 MEDICAL RECORD SPECIALIST.SKOBY Anesthesia Postop Eval I: Fluid Summary Crystalloid volume administer 200 06/18/25 08:33 MEDICAL RECORD SPECIALIST.SKOBY (ml) Colloids volume administered ( ml) Blood Product volume administered (ml) Total IV fluid infused 200 06/18/25 08:33 MEDICAL RECORD SPECIALIST.SKOBY Anesthesia Postop Eval I: Summary Notes Anesthesia Complication No 06/18/25 08:33 MEDICAL RECORD SPECIALIST.SKOBY Anesthesia Complication Comment: Post-operative progress note Anesthesia: Postop Eval II Evaluation Mental status: Awake and Calm Pain Level: 1 nausea: No Vomiting: No Complications Anesthesia Complication: No 06/18/25 1148 Date Azael Gilbert MD Cosigner Signature: Date CC: Signed Normal [facility] Operative Reporton 5 Operative Report [facility] Medical Records Department [address] [place] [address] Operative Report 06/18/2510 MR#: [id number] Acct: [id number] Name: CECELIA QUIROZ Rep #: [id number] : 1950 75 From: Madeline Obrien MD PCP: Dr. Miah Cottrell, DO Status:[facility] Location: [facility] Operative Report (Standard) Operative Information Date of Procedure: 06/18/25 Pre-Operative Diagnosis: Bladder lesion, gross hematuria Post-Operative Diagnosis: Same Surgery/Procedure Performed: Cystoscopy with biopsy and fulguration pyrometallurgical engineer: No Type of Anesthesia: MAC RN Documented [...] MD on 06/18/25 at 1028 Urology Urology: 6[address] Cystourethroscopy w/ biopsy Multi [facility] Urology Urology Charge Forwarding-multi code: [id number] Cysto w/ Removal of Lesions; small 06/18/25 1028 Cosigner Signature (if applicable): cc: Dr. Madeline Obrien MD; Dr. Miah Cottrell DO * Signed Normal [facility] Surgery Specimen Level Lois 06-18-2025 Surgery Specimen Level IV ---- Patient Age/Sex Location Account Attending Physician ---- QUIROZCECELIA FERRARI Ibis 75/F [facility] [id number] Dr. Madeline Obrien MD ---- Specimen: [id number] Received: 06/18/25 Status: TORRES Ching Num: [id number] Spec Type: BLADDER BX Subm Dr: Dr. Madeline Obrien MD HEADER OPERATION: Cysto, bladder, biopsy PRE-OP DIAGNOSIS: Gross hematuria, overactive bladder, nocturia, urge incontinence TISSUE SUBMITTED: A- Bladder lesion ---- MICROSCOPIC DIAGNOSIS A. Bladder, biopsy: - [place] urothelium of normal thickness with acute and [...] 0.4 cm. Entirely submitted in 1 cassette. SD 06/18/2025 CPT:96366 ---- Patient Age/Sex Location Account Attending Physician ---- CECELIA UQIROZ 75/F [facility] [id number] Dr. Madeline Obrien MD ---- Signed (signature on file) Dr. Kayla Martinez MD 06/26/25 1410 ---- Normal [facility] Comment on above: Performed By: #### P DEREK #### [facility] [address] [place], [address] Activated partial thrombopla stin time (aPTT) in platelet poor plasma by coagulation aOrdered By: Azael Gilbert on 06-16-2025 aPTT Coag (PPP) [Time] 29.8 s 24.1-36.2 [facility] Anion gap in Serum or Plasma Ordered By: Madeline Obrien on 06-16-2025 Anion gap [Moles/Vol] 11 mmol/L 01-01 [facility] BUN/creatinine ratioOrdered By: Madeline Obrien on 06-16-2025 Urea nitrogen/Creatinine [Mass ratio] 19.5 mg/mg 06-08 [facility] Basic Metabolic Profile (BMP )on 06-16-2025 BUN/CRE 19.5 RATIO Normal 06-08 [facility] Comment on above: Performed By: #### L 300.4310, L300.3900, L500.3400 #### [facility] [address] [place], [address] Calcium [Mass/Vol] 9.0 mg/dL Normal 7.6-11.0 [facility] Comment on above: Performed By: #### L 300.4310, L300.3900, L500.3400 #### [facility] [address] [place], [address] Chloride [Moles/Vol] 104 mmol/L Normal 98-108 [facility] Comment on above: Performed By: #### L 300.4310, L300.3900, L500.3400 #### [facility] [address] [place], [address] CO2 [Moles/Vol] 26.1 mmol/L Normal 21.0-32.0 [facility] Comment on above: Performed By: #### L 300.4310, L300.3900, L500.3400 #### [facility] [address] [place], [address] Creatinine [Mass/Vol] 0.71 mg/dL Normal 0.70-1.20 [facility] Comment on above: Performed By: #### L 300.4310, L300.3900, L500.3400 #### [facility] [address] [place], [address] GAP 11 Normal 5-15 [facility] Comment on above: Performed By: #### L 300.4310, L300.3900, L500.3400 #### [facility] [address] [place], [address] GFR/1.73 sq M.predicted among non-blacks MDRD (S/P/Bld) [Vol rate/Area] 88 mL/min/{1.73_m2} Normal >60 [facility] Comment on above: Result Comment: mL/m in/1.73m2 CKD-EPI Creatinine Equation (2020) Performed By: #### L 300.4310, L300.3900, L500.3400 #### [facility] [address] [place], [address] Glucose [Mass/Vol] 93 mg/dL Normal 70-99 [facility] Comment on above: Performed By: #### L 300.4310, L300.3900, L500.3400 #### [facility] [address] [place], [address] Potassium [Moles/Vol] 3.8 mmol/L Normal 3.3-5.1 [facility] Comment on above: Performed By: #### L 300.4310, L300.3900, L500.3400 #### [facility] [address] [place], [address] Sodium [Moles/Vol] 141 mmol/L Normal 133-145 [facility] Comment on above: Performed By: #### L 300.4310, L300.3900, L500.3400 #### [facility] [address] [place], [address] Urea nitrogen [Mass/Vol] 14 mg/dL Normal 4-19 [facility] Comment on above: Performed By: #### L 300.4310, L300.3900, L500.3400 #### [facility] [address] [place], [address] Bilirubin directOrdered By: Azael Gilbert on 06-16-2025 Bilirubin.direct [Mass/Vol] 0.16 mg/dL 0.00-0.30 [facility] Bilirubin, totalOrdered By: Azael Gilbert on 06-16-2025 Bilirubin [Mass/Vol] 0.44 mg/dL 0.00-1.30 [facility] CBC-Complete Blood Cnt No Di ffon 06-16-2025 Erythrocyte distribution width (RBC) [Ratio] 13.3 % Normal 11.6-14.6 [facility] Comment on above: Performed By: #### L 300.4310, L300.3900, L500.3400 #### [facility] [address] [place], [address] Hematocrit (Bld) [Volume fraction] 39.4 % Normal 37-47 [facility] Comment on above: Performed By: #### L 300.4310, L300.3900, L500.3400 #### [facility] [address] [place], [address] Hemoglobin (Bld) [Mass/Vol] 13.2 g/dL Normal 12.0-15.0 [facility] Comment on above: Performed By: #### L 300.4310, L300.3900, L500.3400 #### [facility] [address] [place], [address] MCH (RBC) [Entitic mass] 32.6 pg High 27.0-32.0 [facility] Comment on above: Performed By: #### L 300.4310, L300.3900, L500.3400 #### [facility] [address] [place], [address] MCHC (RBC) [Mass/Vol] 33.5 g/dL Normal 32-36 [facility] Comment on above: Performed By: #### L 300.4310, L300.3900, L500.3400 #### [facility] [address] [place], [address] MCV (RBC) [Entitic vol] 97.3 fL Normal 81-99 [facility] Comment on above: Performed By: #### L 300.4310, L300.3900, L500.3400 #### [facility] [address] [place], [address] Platelet mean volume (Bld) [Entitic vol] 10.4 fL Normal 6.2-12.0 [facility] Comment on above: Performed By: #### L 300.4310, L300.3900, L500.3400 #### [facility] [address] [place], [address] Platelets (Bld) [#/Vol] 308 10*3/uL Normal 150-450 [facility] Comment on above: Performed By: #### L 300.4310, L300.3900, L500.3400 #### [facility] [address] [place], [address] RBC (Bld) [#/Vol] 4.05 10*6/uL Low 4.2-5.4 [facility] Comment on above: Performed By: #### L 300.4310, L300.3900, L500.3400 #### [facility] [address] [place], [address] RDW SD 48.1 fl High 35.1-43.9 [facility] Comment on above: Performed By: #### L 300.4310, L300.3900, L500.3400 #### [facility] [address] [place], [address] WBC (Bld) [#/Vol] 11.9 10*3/uL High 4.4-11.0 [facility] Comment on above: Performed By: #### L 300.4310, L300.3900, L500.3400 #### [facility] [address] [place], [address] Carbon dioxide, total [Moles /volume] in Central venous bloodOrdered By: Madeline Obrien on 06-16-2025 CO2 [Moles/Vol] 26.1 mmol/L 21.0-32.0 [facility] Chloride assayOrdered By: Tin Obrien on 06-16-2025 Chloride [Moles/Vol] 104 mmol/L 98-108 [facility] Erythrocyte distribution wid th ratioOrdered By: Madeline Obrien on 06-16-2025 Erythrocyte distribution width (RBC) [Ratio] 13.3 % 11.6-14.6 [facility] Erythrocyte distribution wid th standard deviationOrdered By: Madeline Obrien on 06-16-2025 Erythrocyte distribution width (RBC) [Ratio] 48.1 fl High 35.1-43.9 [facility] Glomerular filtration rate ( GFR) estimation/1.73 sq m using serum, plasma, or whole bOrdered By: Madeline Obrien on 06-16-2025 GFR/1.73 sq M.predicted among non-blacks MDRD (S/P/Bld) [Vol rate/Area] 88 mL/min/{1.73_m2} >60 [facility] Comment on above: mL/min/1.73m2 CKD-EP I Creatinine Equation (2020) Hematocrit Auto (Bld) [Volum e fraction]Ordered By: Madeline Obrien on 06-16-2025 Hematocrit (Bld) [Volume fraction] 39.4 % 37-47 [facility] Hemoglobin measurementOrdere d By: Madeline Obrien on 06-16-2025 Hemoglobin (Bld) [Mass/Vol] 13.2 g/dL 12.0-15.0 [facility] International normalized rat io (INR) calculationOrdered By: Azael Gilbert on 06-16-2025 INR Coag (Bld) [Relative time] 1.1 {INR} [facility] - Chemistry and C hemistry - challengeOrdered By: Azael Gilbert on 06-16-2025 AST [Catalytic activity/Vol] 23 U/L <32 [facility] Liver Profileon 06-16-2025 Albumin [Mass/Vol] 4.1 g/dL Normal 3.4-4.8 [facility] Comment on above: Performed By: #### L 300.4310, L300.3900, L500.3400 #### [facility] [address] [place], [address] ALK PHOS 69 U/L Normal 35-104 [facility] Comment on above: Performed By: #### L 300.4310, L300.3900, L500.3400 #### [facility] [address] [place], [address] ALT [Catalytic activity/Vol] 12 U/L Normal <=34 [facility] Comment on above: Performed By: #### L 300.4310, L300.3900, L500.3400 #### [facility] [address] [place], [address] AST [Catalytic activity/Vol] 23 U/L Normal <=31 [facility] Comment on above: Performed By: #### L 300.4310, L300.3900, L500.3400 #### [facility] [address] [place], [address] Bilirubin [Mass/Vol] 0.44 mg/dL Normal 0.00-1.30 [facility] Comment on above: Performed By: #### L 300.4310, L300.3900, L500.3400 #### [facility] [address] [place], [address] Bilirubin.direct [Mass/Vol] 0.16 mg/dL Normal 0.00-0.30 [facility] Comment on above: Performed By: #### L 300.4310, L300.3900, L500.3400 #### [facility] [address] [place], [place], [phone] Globulin (S) [Mass/Vol] 3.3 g/dL Normal 2.2-4.2 [facility] Comment on above: Performed By: #### L 300.4310, L300.3900, L500.3400 #### [facility] [address] [place], [place], [address] T PROT 7.3 g/dL Normal 5.9-8.4 [facility] Comment on above: Performed By: #### L 300.4310, L300.3900, L500.3400 #### [facility] [address] [place], [place], [address] MCV (mean corpuscular volume ) determinationOrdered By: Madeline Obrien on 06-16-2025 MCV (RBC) [Entitic vol] 97.3 fL 81-99 [facility] Mean corpuscular hemoglobin (MCH) determinationOrdered By: Madeline Obrien on 06-16-2025 MCH (RBC) [Entitic mass] 32.6 pg High 27.0-32.0 [facility] Mean corpuscular hemoglobin concentration (MCHC) determinationOrdered By: Madeline Obrien on 06-16-2025 MCHC (RBC) [Mass/Vol] 33.5 g/dL 32-36 [facility] Mean platelet volume determi nationOrdered By: Madeline Obrien on 06-16-2025 Platelet mean volume (Bld) [Entitic vol] 10.4 fL 6.2-12.0 [facility] Partial Thromboplast Timeon 06-16-2025 aPTT Coag (Bld) [Time] 29.8 s Normal 24.1-36.2 [facility] Comment on above: Performed By: #### L 300.4310, L300.3900, L500.3400 #### [facility] [address] [place], [address] Platelet countOrdered By: Tin Obrien on 06-16-2025 Platelets (Bld) [#/Vol] 308 10*3/uL 150-450 [facility] Potassium measurement (mass/ volume)Ordered By: Madeline Obrien on 06-16-2025 Potassium (Unsp spec) [Mass/Vol] 3.8 mmol/L 3.3-5.1 [facility] Prothrombin Time w/INRon INR Coag (PPP) [Relative time] 1.1 {INR} Normal [facility] Comment on above: Performed By: #### L 300.4310, L300.3900, L500.3400 #### [facility] [address] [place], [address] PT Coag (PPP) [Time] 14.0 s Normal 11.7-14.9 [facility] Comment on above: Performed By: #### L 300.4310, L300.3900, L500.3400 #### [facility] [address] [place], [address] Prothrombin timeOrdered By: Azael Gilbert on 06-16-2025 PT Coag (PPP) [Time] 14.0 s 11.7-14.9 [facility] RBC Auto (Bld) [#/Vol]Ordere d By: Madeline Obrien on 06-16-2025 RBC (Bld) [#/Vol] 4.05 10*6/uL Low 4.2-5.4 [facility] Serum creatinine measurement (mass/volume)Ordered By: Madeline Obrien on 06-16-2025 Creatinine [Mass/Vol] 0.71 mg/dL 0.70-1.20 [facility] Serum globulin measurementOr dered By: Azael Gilbert on 06-16-2025 Globulin (S) [Mass/Vol] 3.3 g/dL 2.2-4.2 [facility] Serum glucose measurement (m ass/volume)Ordered By: Madeline Obrien on 06-16-2025 Glucose [Mass/Vol] 93 mg/dL 70-99 [facility] Serum or plasma alanine prasad otransferase (ALT) measurementOrdered By: Azael Gilbert on 06-16-2025 ALT [Catalytic activity/Vol] 12 U/L <35 [facility] Serum or plasma albumin catherine urement (mass/volume)Ordered By: Azael Gilbert on 06-16-2025 Albumin [Mass/Vol] 4.1 g/dL 3.4-4.8 [facility] Serum or plasma alkaline roz sphatase measurementOrdered By: Azael Gilbert on 06-16-2025 ALP [Catalytic activity/Vol] 69 U/L 35-104 [facility] Serum or plasma calcium catherine urement (mass/volume)Ordered By: Madeline Obrien on 06-16-2025 Calcium [Mass/Vol] 9.0 mg/dL 7.6-11.0 [facility] Serum or plasma urea nitroge n measurement (mass/volume)Ordered By: Madeline Obrien on 06-16-2025 Urea nitrogen [Mass/Vol] 14 mg/dL 4-19 [facility] Sodium levelOrdered By: Bailey Obrien on 06-16-2025 Sodium [Moles/Vol] 141 mmol/L 133-145 [facility] Total proteinOrdered By: Klaudia Gilbert on 06-16-2025 Protein [Mass/Vol] 7.3 g/dL 5.9-8.4 [facility] White blood cell (WBC) count Ordered By: Madeline Obrien on 06-16-2025 WBC (Bld) [#/Vol] 11.9 10*3/uL High 4.4-11.0 [facility] Laboratory - Chemistry and C hemistry - challengeOrdered By: Madeline Obrien on 06-11-2025 Bilirubin Ql (U) Negative [facility] Glucose Ql (U) Negative [facility] Ketones Ql (U) Negative [facility] pH (U) 6 [pH] [facility] Specific gravity (U) [Rel density] 1.015 [facility] Urobilinogen (U) [Mass/Vol] 0.5800727 mg/dL [facility] Laboratory - Hematology and Cell countsOrdered By: Madeline Obrien on 06-11-2025 Hemoglobin Ql (U) Large [facility] - UrinalysisOrder ed By: Madeline Obrien on 06-11-2025 Nitrite Ql (U) Negative [facility] Protein Ql (U) Negative [facility] No Panel InformationOrdered By: Madeline Obrien on 06-11-2025 Urine Leukocytes Negatve [facility] Urine Non-Hemolyzed Blood Negative [facility] Office Visit Reporton 2024 Office Visit Report [facility] [address] [place] [address] OFFICE VISIT Date of Service: 06/11/25 MR#: [id number] Acct: [id number] Patient: CECELIA QUIROZ Rep #: [id number] : 1950 Provider: Dr. Madeline Kyle i, MD Age/Sex: 75/F Location: [facility] Status: Signed Intake Vital Signs 06/09/25 13:55 [...] Tavarez on 06/11/25 15:19 Off Ur Spec [place] 1.015 Last Edit by Angelica Tavarez on [...] Cosigner Signature: Date (if applicable) CC: Normal [facility] Laboratory - Chemistry and C hemistry - challengeOrdered By: Madeline Obrien on 06-09-2025 Bilirubin Ql (U) Negative [facility] Glucose Ql (U) Negative [facility] Ketones Ql (U) Trace (5) [facility] pH (U) 7.5 [pH] [facility] Specific gravity (U) [Rel density] 1.010 [facility] Urobilinogen (U) [Mass/Vol] 0.2447599 mg/dL [facility] Laboratory - Hematology and Cell countsOrdered By: Madeline Obrien on 06-09-2025 Hemoglobin Ql (U) Large [facility] Laboratory - UrinalysisOrder ed By: Madeline Obrien on 06-09-2025 Nitrite Ql (U) Negative [facility] Protein Ql (U) Negative [facility] MR/Viridiana 06-09-2025 /[facility] [address], [address] [place] [address] OFFICE VISIT Date of Service: 06/09/25 MR#: [id number] Acct: [id number] Name: CECELIA QUIROZ Rep #: [id number] : 1950 Provider: Dr. Madeline Kyle i, MD Age/Sex: 75/F Location: [facility] Status: Signed Intake Vital Signs 05/26/25 11:49 06/09/25 13:55 Height 5 ft 3 in 5 ft 3 in Weight: 139 lb 139 lb BMI 24.6 24.6 BP 131/70 H 137/69 H Pulse 63 82 Intake Visit Reasons: cystoscopy and pelvic exam Chief Complaint: cystoscopy and pelvic exam Operator Supply Required: No Accompanied by: self Is patient [...] denosumab 60 mg/mL subcutaneous 60 mg subcut [id number] 05/26/25 History syringe (Prolia) latanoprost 0.005 % [...] healthy appearing, comfortable and no acute distress [facility] Head: normocephalic and atraumatic Ears: hearing grossly normal bilaterally and external ears normal Nose: external nose normal Eyes General: appearance normal, both eyes and all related structures Neck Neck: normal visual inspection and trachea midline Chest Chest palpation inspec (more content not included)... Normal [facility] No Panel InformationOrdered By: Madeline Obrien on 06-09-2025 Urine Leukocytes Negatve [facility] Urine Non-Hemolyzed Blood Negative [facility] CT Abd/Pelvis W/WO Contrasto n 06-01-2025 CT Abd/Pelvis W/WO Contrast [facility] [address] [place] [address] CT Abd/Pelvis W/WO Contrast MR#: [id number] Acct: [id number] Name: CECELIA QUIROZ Rep #: [id number] : 1950 F 75 From: Arnoldo Bajwa MD PCP: Dr. Miah Cottrell, DO Status: REG CLI Study: CT Abd/Pelvis W/WO Contrast Date of Exam: 05/20 11/11 Exam# [id number] Ordering Dr: Madeline Obrien MD PROCEDURE: CT [...] 4. Other findings as noted. Reading Location: [place] [address] CC: Dr. Madeline Obrien MD; Dr. Miah Cottrell DO Branch Mechanic: Signed Normal [facility] Non-gynecologic cytology rep ortOrdered By: Inna Dailey on 05-28-2025 Study report [facility] Anion gap in Serum or Plasma Ordered By: Madeline Obrien on 05-26-2025 Anion gap [Moles/Vol] 11 mmol/L - [facility] BUN/creatinine ratioOrdered By: Madeline Obrien on 05-26-2025 Urea nitrogen/Creatinine [Mass ratio] 17.3 mg/mg - [facility] Basic Metabolic Profile (BMP )on 05-26-2025 BUN/CRE 17.3 RATIO Normal 06-08 [facility] Comment on above: Performed By: #### L 500.2500 #### [facility] [address] [place], [address] Calcium [Mass/Vol] 8.6 mg/dL Normal 7.6-11.0 [facility] Comment on above: Performed By: #### L 500.2500 #### [facility] [address] [place], [address] Chloride [Moles/Vol] 107 mmol/L Normal 98-108 [facility] Comment on above: Performed By: #### L 500.2500 #### [facility] [address] [place], [address] CO2 [Moles/Vol] 24.3 mmol/L Normal 21.0-32.0 [facility] Comment on above: Performed By: #### L 500.2500 #### [facility] [address] [place], [address] Creatinine [Mass/Vol] 0.67 mg/dL Low 0.70-1.20 [facility] Comment on above: Performed By: #### L 500.2500 #### [facility] [address] [place], [address] GAP 11 Normal 5-15 [facility] Comment on above: Performed By: #### L 500.2500 #### [facility] [address] [place], [address] GFR/1.73 sq M.predicted among non-blacks MDRD (S/P/Bld) [Vol rate/Area] 91 mL/min/{1.73_m2} Normal >60 [facility] Comment on above: Result Comment: mL/m in/1.73m2 CKD-EPI Creatinine Equation (2020) Performed By: #### L 500.2500 #### [facility] [address] [place], [address] Glucose [Mass/Vol] 99 mg/dL Normal 70-99 [facility] Comment on above: Performed By: #### L 500.2500 #### [facility] [address] [place], [address] Potassium [Moles/Vol] 3.6 mmol/L Normal 3.3-5.1 [facility] Comment on above: Performed By: #### L 500.2500 #### [facility] [address] [place], [address] Sodium [Moles/Vol] 142 mmol/L Normal 133-145 [facility] Comment on above: Performed By: #### L 500.2500 #### [facility] [address] [place], [address] Urea nitrogen [Mass/Vol] 12 mg/dL Normal 4-19 [facility] Comment on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 SPECIMENOrdering Facility: [facility] Address: [address] [place] [address] Performed By: #### 5 8410-2 ####[facility] [id number] [place] [address] [place] WBC (Bld) [#/Vol] 10.19 10*3/uL Normal 3.70-11.00 [facility] Comment on above: Order Comment: Speci men Type: BLOOD SPECIMENOrdering Facility: [facility] Address: [address] [place] [address] Performed By: #### 5 8410-2 ####[facility] [id number] [address] [place] CNPMaeve 01-20-2025 IRINEON Telephone (RHEUST) CECELIA QUIROZ ([id number]) 1950 F Date Time Provider Department 01/20/25 [...] SYNDROME [G56.00] 10/29/2007 HEMATURIA [599.7] 10/29/2007 ROUTINE REGISTERED ROUTE ASSOCIATE CARE - [place] [Z01.419] 10/29/2007 10/19/2011 Class: Chronic TEAR MED MENISC KNEE-CURRENT [LXB1909] 12/10/2007 Cellulitis and Abscess of Face [L03.211, L02.01]10/03/2008 Adjustment Disorder with Anxiety [F43.22] 12/11/2008 Rout[facility] at [facility]*02/12/2009 11/27/2011 Class: Chronic Giant cell arteritis (HCC) [M31.6] 01/10/2012 GCA (giant cell arteritis) (HCC) [M31.6] 01/18/2012 04/19/2017 Sciatica [M54.30] 04/30/2013 Raynaud's disease without gangrene [I73.00] 10/28/2015 Osteoporosis, 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] 03/05/2016 Infected sebaceous cyst [L72.3, L08.9] 03/31/2016 Cephalalgia [R51.9] 01/17/2017 Family history of brain aneurysm [Z82.49] 01/17/2017 Giant cell arteritis with polymyalgia rheumatic*01/17/2017 detention systemic steroid user [Z79.52] 03/02/2017 Actinic keratosis [...] Encounter Status:Closed by KEELY ROUSSEAU on 01/20/25 [facility] Telephone (RHEUST) CECELIA QUIROZ ([id number]) 1950 F Date Time Provider Department 01/20/25 [...] osteoporosis [M81.0] Order(s):CALCIUM, TOTAL [SQCA] Order #: [id number] FUTURE VITAMIN D 25 HYDROXY [SQVITD] Order #: [id number] FUTURE [START ON 02/06/2025] denosumab 60 mg [...] SYNDROME [G56.00] 10/29/2007 HEMATURIA [599.7] 10/29/2007 ROUTINE REGISTERED ROUTE ASSOCIATE CARE - [place] [Z01.419] 10/29/2007 10/19/2011 Class: Chronic TEAR MED MENISC KNEE-CURRENT [BVW0049] 12/10/2007 Cellulitis and Abscess of Face [L03.211, L02.01]10/03/2008 Adjustment Disorder with Anxiety [F43.22] 12/11/2008 Routine general medical examination at a [facility]*02/12/2009 11/27/2011 Class: Chronic Giant cell arteritis (HCC) [M31.6] 01/10/2012 GCA (giant cell arteritis) (HCC) [M31.6] 01/18/2012 04/19/2017 Sciatica [M54.30] 04/30/2013 Raynaud's disease without gangrene [I73.00] 10/28/2015 Osteoporosis, 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 Normal [facility] Calcium SerPl-mCdimaon 025 Calcium [Mass/Vol] 9.9 mg/dL Normal 8.5-10.2 [facility] Comment on above: Order Comment: Speci men Type: BLOOD SPECIMENOrdering Facility: [facility] Address: [address] [place] [address] Performed By: #### 1 920-8, 21283-1, 1742-6, 08995-3 ####[facility] [id number] [place] [id number] [place] Creatinine + eGFR Pnl SerPlB ldon 01-20-2025 Creatinine and Glomerular filtration rate.predicted panel (S/P/Bld) 86 mL/min/1.73m??? Normal >=60 [facility] Comment on above: Order Comment: Speci men Type: BLOOD SPECIMENOrdering Facility: [facility] Address: [address] [place] [address] Result Comment: Mary mated Glomerular Filtration Rate [...] actual GFR. Performed By: #### 1 920-8, 35512-4, 1742-6, 80935-4 ####[facility] [id number] [place] [id number] [place] [facility] Creatinine and Glomerular fi ltration rate.predicted panel (S/P/Bld)on 01-20-2025 Creatinine [Mass/Vol] 0.73 mg/dL Normal 0.58-0.96 [facility] Comment on above: Order Comment: Speci men Type: BLOOD SPECIMENOrdering Facility: [facility] Address: [address] [place] [address] Performed By: #### 1 920-8, 24181-2, 1742-6, 20198-5 ####[facility] [id number] [place] [id number] [place] ALT SerPl-cCncon 12-27-2024 ALT [Catalytic activity/Vol] 9 U/L Normal 7-38 [facility] Comment on above: Order Comment: Speci men Type: BLOOD SPECIMEN [facility] Address: [address] [place] [address] Performed By: #### 2 2322-2, 5195-3, 26984-5 #### [facility] CLIA [id number] [address] [place] [address] [place] AST SerPl-cCncon 12-27-2024 AST [Catalytic activity/Vol] 23 U/L Normal 13-35 [facility] Comment on above: Order Comment: Speci men Type: BLOOD SPECIMEN [facility] Address: [address] [place] [address] Performed By: #### 2 2322-2, 5195-3, 88919-4 #### [facility] CLIA [id number] [address] [place] [address] [place] CBC panel Auto (Bld)on 12-27 Erythrocyte distribution width (RBC) [Ratio] 12.9 % Normal 11.5-15.0 [facility] Comment on above: Order Comment: Speci men Type: BLOOD SPECIMENOrdering Facility: [facility] Address: [address] [place] [address] Performed By: #### 5 8410-2 ####[facility] [id number] [place] [address] [place] Hematocrit (Bld) [Volume fraction] 39.9 % Normal 36.0-46.0 [facility] Comment on above: Order Comment: Speci men Type: BLOOD SPECIMENOrdering Facility: [facility] Address: [address] [place] [address] Performed By: #### 5 8410-2 ####[facility] [id number] [place] [address] [place] Hemoglobin (Bld) [Mass/Vol] 12.7 g/dL Normal 11.5-15.5 [facility] Comment on above: Order Comment: Speci men Type: BLOOD SPECIMENOrdering Facility: [facility] Address: [address] [place] [address] Performed By: #### 5 8410-2 ####[facility] [id number] [place] [address] [place] MCH (RBC) [Entitic mass] 30.6 pg Normal 26.0-34.0 [facility] Comment on above: Order Comment: Speci men Type: BLOOD SPECIMENOrdering Facility: [facility] Address: [address] [place] [address] Performed By: #### 5 8410-2 ####[facility] [id number] [place] [address] [place] MCHC (RBC) [Mass/Vol] 31.8 g/dL Normal 30.5-36.0 [facility] Comment on above: Order Comment: Speci men Type: BLOOD SPECIMENOrdering Facility: [facility] Address: [address] [place] [address] Performed By: #### 5 8410-2 ####[facility] [id number] [place] [address] [place] MCV (RBC) [Entitic vol] 96.1 fL Normal 80.0-100.0 C [facility] Comment on above: Order Comment: Speci men Type: BLOOD SPECIMENOrdering Facility: [facility] Address: [address] [place] [address] Performed By: #### 5 8410-2 ####[facility] [id number] [place] [address] [place] Nucleated RBC (Bld) [#/Vol] 10*3/uL Normal <0.01 [facility] Comment on above: Order Comment: Speci men Type: BLOOD SPECIMENOrdering Facility: [facility] Address: [address] [place] [address] Performed By: #### 5 8410-2 ####[facility] [id number] [address] [address] [place] Platelet mean volume (Bld) [Entitic vol] 13.0 fL High 9.0-12.7 [facility] Comment on above: Order Comment: Speci men Type: BLOOD SPECIMENOrdering Facility: [facility] Address: [address] [place] [address] Performed By: #### 5 8410-2 ####[facility] [id number] [place] [address] [place] Platelets (Bld) [#/Vol] 297 10*3/uL Normal 150-400 [facility] Comment on above: Order Comment: Speci men Type: BLOOD SPECIMENOrdering Facility: [facility] Address: [address] [place] [address] Performed By: #### 5 8410-2 ####[facility] [id number] [place] [address] [place] RBC (Bld) [#/Vol] 4.15 10*6/uL Normal 3.90-5.20 [facility] Comment on above: Order Comment: Speci men Type: BLOOD SPECIMENOrdering Facility: [facility] Address: [address] [place] [address] Performed By: #### 5 8410-2 ####[facility] [id number] [place] [address] [place] WBC (Bld) [#/Vol] 12.70 10*3/uL High 3.70-11.00 [facility] Comment on above: Order Comment: Speci men Type: BLOOD SPECIMENOrdering Facility: [facility] Address: [address] [place] [address] Performed By: #### 5 8410-2 ####[facility] [id number] [place] [address] [place] Creatinine + eGFR Pnl SerPlB ldon 12-27-2024 Creatinine and Glomerular filtration rate.predicted panel (S/P/Bld) 86 mL/min/1.73m??? Normal >=60 [facility] Comment on above: Order Comment: Ang hudson Type: BLOOD SPECIMEN [facility] Address: [address] [place] [address] Result Comment: Mary mated Glomerular Filtration Rate [...] GFR. Performed By: #### 2 2322-2, 5195-3, 51654-8 #### [facility] CLIA [id number] [address] [place] [address] [place] Creatinine and Glomerular fi ltration rate.predicted panel (S/P/Bld)on 12-27-2024 Creatinine [Mass/Vol] 0.73 mg/dL Normal 0.58-0.96 [facility] Comment on above: Order Comment: Ang hudson Type: BLOOD SPECIMEN [facility] Address: [address] [place] [address] Performed By: #### 2 2322-2, 5195-3, 42114-4 #### [facility] CLIA [id number] [address] [place] [address] [place] CNOVon 11-21-2024 CNOV Office Visit (FAMPWS ) CECELIA QUIROZ ([id number]) 1950 F Date Time Provider Department 11/21/24 [...] rheumatica, dupuytren's contracture, and osteoarthritis 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 Previous Medical History PAST MEDICAL HISTORY Diagnosis Date Actinic keratosis Autoimmune disease (HCC) Cancer (HCC) 1982 Uterine Cephalalgia Cholelithiasis Depression Diarrhea Disorder of bone and cartilage, unspecified Diverticulitis of colon (without mention of hemorrhage)(562.11) 2003 Dysphagia Essential hypertension 12/28/2021 GCA (giant cell arteritis) ([facility]) bx negative GERD (gastroesophageal reflux disease) Glaucoma Hematuria 1999 had workup including cystoscopy, etc. - entire workup negative. No longer happening. IBS (irritable bowel syndrome) Iron deficiency anemia, unspecified ? related to UGI source from NSAID's Mixed hyperlipidemia Palpitations PMR (polymyalgia rheumatica) ([facility]) Raynaud's disease /phenomenon Sciatica Steroid [...] life Coronary Artery Disease Father Hx of AL, age 71 Tremor Mother Hypertension Mother Cancer [...] BP MONITOR) (more content not included)... Normal [facility] PARRIS SCREENING W TOMOon 11-19 PARRIS SCREENING W DOMENIC * * *Final Report* * * DATE OF EXAM: Nov 19 2024 2:03PM WRW [id number] - PARRIS SCREENING W DOMENIC / PROCEDURE REASON: Encounter for screening mammogram for breast cancer * * * * Physician Interpretation * * * * RESULT: [facility] [address] [place] [address] #[id number] - PARRIS SCREENING W DOMENIC HISTORY: 74 [...] Lurdes Agosto M.D. Electronically signed on: 11/20/2024 Branch Mechanic: KAIDEN Transcribe Date/Time: Nov 19 2024 1:49P Dictated by: LURDES AGOSTO MD This examination was interpreted and the report reviewed and electronically signed by: LURDES AGOSTO MD on Nov 20 2024 8:45AM EST [id number] Normal [facility] CNNURSEon 08-05-[address] [facility] (RHEUST) RICHIECECELIA Ibis ([id number]) 1950 F Date Time Provider Department 08/05/24 2:00 PM NURSE [facility] DARIEN HOLLIDAY During your visit today, we recorded the following information about you: Keely Rousseau RN 08/05/2024 2:12 PM Signed Patient denies fractures or falls since last visit. Patient denies any dental work in last 2 months or upcoming 2 months. Patient given Prolia 60 mg SQ in the left arm Patient tolerated injection well. Lot #: [id number] Exp. Date: 12/17/2026 Last Vitamin D AND Serum Calcium: Calcium (mg/dL) Date Value 2021 9.2 Calcium, Total (mg/dL) Date Value 06/23/2024 8.7 Vitamin D 25 Hydroxy (ng/mL) Date Value 06/23/2024 35.7 09/09/2021 44.3 Last DXA: 03/02/2023 Next Prolia 02/06/2025 - Reviewed lab schedule. Keely Rousseau RN Referring Provider: MAGDALENE BRADFORD [[id number]] Allergies As of Date: 08/05/2024 Noted Allergy Reaction SULFASALAZINE 03/26/2024 2 - Rash Date Reviewed: 06/03/2024 Reviewed by: Wily Abarca APRN.RIP SAW OPERATOR - Fully Assessed Primary Visit Diagnosis:Postmenopaus al [...] SYNDROME [G56.00] 10/29/2007 HEMATURIA [599.7] 10/29/2007 ROUTINE REGISTERED ROUTE ASSOCIATE CARE - [place] [Z01.419] 10/29/2007 10/19/2011 Class: Chronic TEAR MED MENISC KNEE-CURRENT [TRA9070] 12/10/2007 Cellulitis and Abscess of Face [L03.211, L02.01]10/03/2008 Adjustment Disorder with Anxiety [F43.22] 12/11/2008 Routine general medical examination at [facility]*02/12/2009 11/27/2011 Class: Chronic Giant cell arteritis (HCC) [M31.6] 01/10/2012 GCA (giant cell arteritis) (HCC) [M31.6] 01/18/2012 04/19/2017 Sciatica [M54.30] 04/30/2013 Raynaud's disease without gangrene [I73.00] 10/28/2015 Osteoporosis, 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 Normal [facility] CNPNon 08-04-2024 IRINE[facility] Telephone (MIYA) CECELIA QUIROZ ([id number]) 1950 F Date Time Provider Department 08/04/24 [...] Date Reviewed: 06/03/2024 Reviewed by: Wily Abarca APRN.RIP SAW OPERATOR - Fully Assessed Order(s):[START ON 08/05/2024] denosumab [...] SYNDROME [G56.00] 10/29/2007 HEMATURIA [599.7] 10/29/2007 ROUTINE REGISTERED ROUTE ASSOCIATE CARE - [place] [Z01.419] 10/29/2007 10/19/2011 Class: Chronic TEAR MED MENISC KNEE-CURRENT [VXU1020] 12/10/2007 Cellulitis and Abscess of Face [L03.211, L02.01]10/03/2008 Adjustment Disorder with Anxiety [F43.22] 12/11/2008 Routine general medical examination at [facility]*02/12/2009 11/27/2011 Class: Chronic Giant cell arteritis (HCC) [M31.6] 01/10/2012 GCA (giant cell arteritis) (HCC) [M31.6] 01/18/2012 04/19/2017 Sciatica [M54.30] 04/30/2013 Raynaud's disease without gangrene [I73.00] 10/28/2015 Osteoporosis, 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 Normal [facility] 25(OH)D3 [facility] 2023 25-hydroxyvitamin D3 [Mass/Vol] 35.7 ng/mL Normal 31.0-80.0 [facility] Comment on above: Order Comment: Speci men Type: BLOOD SPECIMENOrdering Facility: [facility] Address: [address] [place] [address] Performed By: #### 1 989-3 ####[facility] [id number] JOCELINNidia URBINADESK [place] [id number] [place] CREATININE BLDon 06-23-2024 Creatinine [Mass/Vol] 0.64 mg/dL Normal 0.58-0.96 [facility] Comment on above: Order Comment: Speci men Type: BLOOD SPECIMENOrdering Facility: [facility] Address: [address] [place] [address] Performed By: #### Juno MORRELL1, 17933-2 ####[facility] [id number] [place] [address] [place] Creatinine and Glomerular filtration rate.predicted panel (S/P/Bld) 93 mL/min/1.73m??? Normal >=60 [facility] Comment on above: Order Comment: Ang hudson Type: BLOOD SPECIMENOrdering Facility: [facility] Address: [address] [place] [address] Result Comment: Mary mated Glomerular Filtration Rate [...] actual GFR. Performed By: #### Juno MORRELL1, 97232-0 ####[facility] [id number] [place] [address] [place] Calcium SerPl-mCncon 024 Calcium [Mass/Vol] 8.7 mg/dL Normal 8.5-10.2 [facility] Comment on above: Order Comment: Speci men Type: BLOOD SPECIMENOrdering Facility: [facility] Address: [address] [place] [address] Performed By: #### C PORSCHE1, 38514-4 ####[facility] [id number] [place] [address] [place] H. pylori IgG [place] Qlon 2023 H. pylori IgG, Qualitative Negative Negative [facility] Comment on above: Cannot exclude H. py adri infection if the specimen collected 3-4 weeks after onset of symptoms. Interpretation and review of laboratory results Normal [facility] CNOVon 05-23-2024 CNOV Office Visit (FAMPWS ) CECELIA QUIROZ ([id number]) 1950 F Date Time Provider Department 05/23/24 1:00 PM [facility] During your visit today, we recorded the following information about you: Pulse Respiration Blood pressure Weight 61/minute 16/minute 114/62 66.2 kg Wily Abarca APRN.RIP SAW OPERATOR 06/03/2024 6:02 PM Signed Chief Complaint Patient [...] sting on the back of her neck. [place] and saw it [place] Has been going to a wellness center [...] life Coronary Artery Disease Father Hx of AL, age 71 Tremor Mother Hypertension Mother Cancer [...] 114/62 ( (more content not included)... Normal [facility] H. pylori IgG IA Qlon 2023 H. PYLORI IGG, QUAL Negative Normal Negative [facility] Comment on above: Order Comment: Speci men Type: BLOOD SPECIMEN [facility] Address: [address] [place] [address] Result Comment: Jovana ot exclude H. pylori infection if the specimen collected 3-4 weeks after onset of symptoms. Performed By: #### 1 7859-0 #### [facility] CLIA [id number] [address] [place] [address] [place] Comprehensive metabolic 2000 panelon 12-18-2023 Albumin [Mass/Vol] 4.0 g/dL 3.9 - 4.9 g/dL [facility] ALP [Catalytic activity/Vol] 89 U/L 34 - 123 U/L [facility] ALT [Catalytic activity/Vol] 8 U/L 7 - 38 U/L [facility] Anion gap [Moles/Vol] 11 mmol/L 9 - 18 mmol/L [facility] AST [Catalytic activity/Vol] 18 U/L 13 - 35 U/L [facility] Bilirubin [Mass/Vol] 0.2 mg/dL 0.2 - 1 .3 mg/dL [facility] Calcium [Mass/Vol] 9.2 mg/dL 8.5 - 10. 2 mg/dL [facility] Chloride [Moles/Vol] 100 mmol/L 97 - 10 5 mmol/L [facility] CO2 [Moles/Vol] 25 mmol/L 22 - 30 mmol/L [facility] Creatinine [Mass/Vol] 0.72 mg/dL 0.58 - 0.96 mg/dL [facility] GFR/1.73 sq M.predicted among non-blacks MDRD (S/P/Bld) [Vol rate/Area] 88 mL/min/{1.73_m2} - PINF [facility] Comment on above: Estimated Glomerular Filtration Rate [...] [Mass/Vol] 87 mg/dL 74 - 99 mg/dL [facility] Comment on above: The [place] Diabete s Association (ADA) provides guidance for [...] Standards of Medical Care in Diabetes 2016, [place] Diabetes Association. Diabetes Care. 2016.39(Suppl 1). Potassium [Moles/Vol] 4.2 mmol/L 3.7 - 5.1 mmol/L [facility] Protein [Mass/Vol] 7.4 g/dL 6.3 - 8.0 g/dL [facility] Sodium [Moles/Vol] 136 mmol/L 136 - 144 mmol/L [facility] Urea nitrogen [Mass/Vol] 12 mg/dL 7 - 21 mg/d L [facility] HbA1c (Bld)on 12-18-2023 Average glucose Estimated from glycated hemoglobin (Bld) [Mass/Vol] 103 mg/dL [facility] Comment on above: eAG: (Estimated aver age glucose) is a calculated value from HgbA1c and is telesales representative of the average blood glucose level in the last 2-3 month period. HbA1c (Bld) [Mass fraction] 5.2 % 4.3 - 5.6 % [facility] Comment on above: [place] Diabetes As sociation guidelines indicate that patients with HgbA1c in the range 5.7-6.4% are at increased risk for development of diabetes, and intervention by lifestyle modification may be beneficial. HgbA1c greater or equal to 6.5% is considered diagnostic of diabetes. [facility] Iron and Iron binding capaci ty panelon 12-18-2023 Iron [Mass/Vol] 62 ug/dL 41 - 186 ug/dL [facility] Iron binding capacity [Mass/Vol] 318 ug/dL 232 - 386 ug/dL [facility] Iron/TIBC [Molar ratio] 19.5 % 15.0 - 57.0 % [facility] Lipid 1996 panelon Cholesterol [Mass/Vol] 189 mg/dL NINF - 200 mg/dL [facility] Comment on above: <200 mg/dL, Desirabl e 200-239 mg/dL, Borderline high >239 mg/dL, High Cholesterol in HDL [Mass/Vol] 92 mg/dL 39 - PINF mg/dL [facility] Comment on above: 40-59 mg/dL, Accepta ble >59 mg/dL, High: Negative risk factor for coronary heart disease <40 mg/dL, Low: Positive risk factor for coronary heart disease Cholesterol in LDL [Mass/Vol] 76 mg/dL NINF - 100 mg/dL [facility] Comment on above: <100 mg/dL, Optimal 100-129 mg/dL, Near optimal/above optimal 130-159 mg/dL, Borderline high 160-189 mg/dL, High >189 mg/dL, Very high Secondary prevention optimal LDL Cholesterol levels are recommended to be < 70 mg/dL Cholesterol in LDL/Cholesterol in HDL [Mass ratio] 0.83 {ratio} NINF - 2.[address] [facility] Comment on above: Reference: 1. National Cholesterol Education Program ATP III Guideline At-A-Glance Quick Desk Reference: National Heart, Lung, and Blood [place]. National Institutes of Health. 2001: NIH Publication No. 01-3305. 2. An International Atherosclerosis Society position paper: global recommendations for the management of dyslipidemia: executive summary, Atherosclerosis. 2014: 232(2):410-413. Cholesterol in VLDL [Mass/Vol] 21 mg/dL NINF - 30 mg/dL [facility] Cholesterol non HDL [Mass/Vol] 97 mg/dL NINF - 130 mg/dL [facility] Comment on above: <130 mg/dL, Optimal 130-159 mg/dL, Near optimal/above optimal 160-189 mg/dL, Borderline high 190-219 mg/dL, High >219 mg/dL, Very high Secondary prevention optimal non HDL Cholesterol levels are recommended to be <100 mg/dL Cholesterol.total/Choles terol in HDL [Mass ratio] 2.05 {ratio} NINF - 5.[address] [facility] Fasting Time [address] [facility] Triglyceride [Mass/Vol] 104 mg/dL NINF - 150 mg/dL [facility] Comment on above: <150 mg/dL, Normal 150-199 mg/dL, Borderline high 200-499 mg/dL, High >499 mg/dL, Very high No Panel Informationon 12-17 Interpretation and review of laboratory results Normal [facility] CBC W Auto Differential pane l (Bld)on 12-17-2023 Basophils (Bld) [#/Vol] 0.05 10*3/uL [facility] Basophils/100 WBC (Bld) 0.5 % [facility] Differential cell count method Nom (Bld) Auto [facility] Eosinophils (Bld) [#/Vol] [facility] Eosinophils/100 WBC (Bld) 0.1 % [facility] Erythrocyte distribution width (RBC) [Ratio] 12.7 % 11.5 - 15.0 % [facility] Hematocrit (Bld) [Volume fraction] 40.3 % 36.0 - 46.0 % [facility] Hemoglobin (Bld) [Mass/Vol] 12.9 g/dL 11.5 - 15.5 g/dL [facility] Immature granulocytes (Bld) [#/Vol] [facility] Immature granulocytes/100 WBC (Bld) 0.2 % [facility] Lymphocytes (Bld) [#/Vol] 2.55 10*3/uL [facility] Lymphocytes/100 WBC (Bld) 26.8 % [facility] MCH (RBC) [Entitic mass] 30.9 pg 26. 0 - 34.[address] [facility] MCHC (RBC) [Mass/Vol] 32.0 g/dL 30.5 - 36.0 g/dL [facility] MCV (RBC) [Entitic vol] 96.6 fL 80.0 - 100.[address] [facility] Monocytes (Bld) [#/Vol] 0.39 10*3/uL [facility] Monocytes/100 WBC (Bld) 4.1 % [facility] Neutrophils (Bld) [#/Vol] 6.50 10*3/uL [facility] Neutrophils/100 WBC (Bld) 68.3 % [facility] Nucleated RBC (Bld) [#/Vol] [facility] Nucleated RBC/100 WBC (Bld) [Ratio] 0.0 % /[address] [facility] Platelet mean volume (Bld) [Entitic vol] 11.5 fL 9.0 - 12.[address] [facility] Platelets (Bld) [#/Vol] 294 10*3/uL [facility] RBC (Bld) [#/Vol] 4.17 10*6/uL 3.90 - 5.2 0 m/uL [facility] WBC (Bld) [#/Vol] 9.52 10*3/uL [facility] Basophil percentageOrdered B y: Mickey Hagen on 10-25-2023 Basophil percentage < 1.0 mg/dL 0.55-1.02 [facility] No Panel InformationOrdered By: Mickey Hagen on 10-25-2023 Bedside Estimated GFR (eGFR) > 60.0000 mL/min >60 [facility] THYROID BIOPSY RIGHT (POC ) SURG USE ONLYon 04-30-[address] [facility] US THYROID/PARATHYROIDon [facility] DXA-AXIAL SKELETONon 023 LOWEST T-SCORE -2.[address] [facility] C-REACTIVE PROTEIN (CRP)on 0 01-29-2023 CRP [Mass/Vol] 0.7 mg/dL <0.9 mg/dL [facility] ESR Westergren method (Bld) [Velocity]on 01-29-2023 ESR (Bld) [Velocity] 46 mm/h High 0 - 20 mm/hr [facility] 25(OH)D3 SerPl-mCncon 2022 25-hydroxyvitamin D3 [Mass/Vol] 29.3 ng/mL Low 31.0-80.0 [facility] Comment on above: Order Comment: Speci men Type: BLOOD SPECIMEN [facility] Address: [place] [address] Result Comment: Clas sification of 25 [place] Vitamin D status: Deficiency/Insufficiency: < or = 30 ng/ml. Sufficiency/Optimal Levels: 31-80 ng/mL Toxicity: > 100 ng/mL. Test performed by chemiluminescent immunoassay. Performed By: #### 1 989-3 #### [facility] CLIA [id number] [address] [facility] [id number] [address] [place] ALT SerPl-cCncon 01-19-2023 ALT [Catalytic activity/Vol] 29 U/L Normal 7-38 [facility] Comment on above: Order Comment: Speci men Type: BLOOD SPECIMEN [facility] Address: [address] [place] [address] Performed By: #### 1 742-6, 1750-7, 1920-03, 1987-12, 88714-2 #### [facility] CLIA [id number] [address] [place] [address] [place] AST SerPl-cCncon 01-19-2023 AST [Catalytic activity/Vol] 31 U/L Normal 13-35 [facility] Comment on above: Order Comment: Speci men Type: BLOOD SPECIMEN [facility] Address: [address] [place] [address] Performed By: #### 1 742-6, 1750-7, 1920-03, 1987-12, 81068-5 #### [facility] CLIA [id number] [address] [place] [address] [place] Albumin SerPl-mCncon 023 Albumin [Mass/Vol] 4.0 g/dL Normal 3.9-4.9 [facility] Comment on above: Order Comment: Speci men Type: BLOOD SPECIMEN [facility] Address: [address] [place] [address] Performed By: #### 1 742-6, 1751-7, 1920-03, 1987-5, 53936-2 #### [facility] CLIA [id number] [address] [place] [address] [place] C-REACTIVE PROTEIN (CRP)on 0 01-19-2023 CRP [Mass/Vol] 1.7 mg/dL High <0.9 mg/dL [facility] CALCIUM TOTAL BLDon 01-20-20 Calcium [Mass/Vol] 9.5 mg/dL 8.5 - 10. 2 mg/dL [facility] CBC W Auto Differential pane l (Bld)on 01-19-2023 Basophils (Bld) [#/Vol] 0.06 10*3/uL Normal <0.11 [facility] Comment on above: Order Comment: Speci men Type: BLOOD SPECIMEN [facility] Address: [address] [place] [address] Performed By: #### 5 7021-8 #### [facility] CLIA [id number] [address] [place] [address] [place] Basophils/100 WBC (Bld) 0.6 % Normal [facility] Comment on above: Order Comment: Speci men Type: BLOOD SPECIMEN [facility] Address: [address] [place] [address] Performed By: #### 5 7021-8 #### [facility] CLIA [id number] [address] [place] [address] [place] Differential cell count method Nom (Bld) Auto Normal [facility] Comment on above: Order Comment: Speci men Type: BLOOD SPECIMEN [facility] Address: [address] [place] [address] Performed By: #### 5 7021-8 #### [facility] CLIA [id number] [address] [place] [address] [place] Eosinophils (Bld) [#/Vol] 10*3/uL Normal <0.46 [facility] Comment on above: Order Comment: Speci men Type: BLOOD SPECIMEN [facility] Address: [address] [place] [address] Performed By: #### 5 7021-8 #### [facility] CLIA [id number] [address] [place] [address] [place] Eosinophils/100 WBC (Bld) 0.2 % Normal [facility] Comment on above: Order Comment: Speci men Type: BLOOD SPECIMEN [facility] Address: [address] [place] [address] Performed By: #### 5 7021-8 #### [facility] CLIA [id number] [address] [place] Erythrocyte distribution width (RBC) [Ratio] 13.2 % Normal 11.5-15.0 [facility] Comment on above: Order Comment: Speci men Type: BLOOD SPECIMEN [facility] Address: [address] [place] [address] Performed By: #### 5 7021-8 #### [facility] CLIA [id number] [address] [place] Hematocrit (Bld) [Volume fraction] 38.0 % Normal 36.0-46.0 [facility] Comment on above: Order Comment: Speci men Type: BLOOD SPECIMEN [facility] Address: [address] [place] [address] Performed By: #### 5 7021-8 #### [facility] CLIA [id number] [address] [place] Hemoglobin (Bld) [Mass/Vol] 12.3 g/dL Normal 11.5-15.5 [facility] Comment on above: Order Comment: Speci men Type: BLOOD SPECIMEN [facility] Address: [address] [place] [address] Performed By: #### 5 7021-8 #### [facility] CLIA [id number] [address] [place] Immature granulocytes (Bld) [#/Vol] 0.03 10*3/uL Normal <0.10 [facility] Comment on above: Order Comment: Speci men Type: BLOOD SPECIMEN [facility] Address: [address] [place] [address] Performed By: #### 5 7021-8 #### [facility] CLIA [id number] [address] Immature granulocytes/100 WBC (Bld) 0.3 % Normal [facility] Comment on above: Order Comment: Speci men Type: BLOOD SPECIMEN [facility] Address: [address] [place] [address] Performed By: #### 5 7021-8 #### [facility] CLIA [id number] [address] [place] Lymphocytes (Bld) [#/Vol] 2.92 10*3/uL Normal 1.00-4.00 [facility] Comment on above: Order Comment: Speci men Type: BLOOD SPECIMEN [facility] Address: [address] [place] [address] Performed By: #### 5 7021-8 #### [facility] CLIA [id number] [address] Lymphocytes/100 WBC (Bld) 27.4 % Normal [facility] Comment on above: Order Comment: Speci men Type: BLOOD SPECIMEN [facility] Address: [address] [place] [address] Performed By: #### 5 7021-8 #### [facility] CLIA [id number] [address] [facility] MCH (RBC) [Entitic mass] 30.3 pg Normal 26.0-34.0 [facility] Comment on above: Order Comment: Speci men Type: BLOOD SPECIMEN [facility] Address: [address] [place] [address] Performed By: #### 5 7021-8 #### [facility] CLIA [id number] [address] MCHC (RBC) [Mass/Vol] 32.4 g/dL Normal 30.5-36.0 [facility] Comment on above: Order Comment: Speci men Type: BLOOD SPECIMEN [facility] Address: [address] [place] [address] Performed By: #### 5 7021-8 #### [facility] CLIA [id number] [address] [place] [address] [place] MCV (RBC) [Entitic vol] 93.6 fL Normal 80.0-100.0 [facility] Comment on above: Order Comment: Speci men Type: BLOOD SPECIMEN [facility] Address: [address] [place] [address] Performed By: #### 5 7021-8 #### [facility] CLIA [id number] [address] [place] [address] [place] Monocytes (Bld) [#/Vol] 0.82 10*3/uL Normal <0.87 [facility] Comment on above: Order Comment: Speci men Type: BLOOD SPECIMEN [facility] Address: [address] [place] [address] Performed By: #### 5 7021-8 #### [facility] CLIA [id number] [address] Monocytes/100 WBC (Bld) 7.7 % Normal [facility] Comment on above: Order Comment: Speci men Type: BLOOD SPECIMEN [facility] Address: [address] [place] [address] Performed By: #### 5 7021-8 #### [facility] CLIA [id number] [address] [place] Neutrophils (Bld) [#/Vol] 6.79 10*3/uL Normal 1.45-7.50 [facility] Comment on above: Order Comment: Speci men Type: BLOOD SPECIMEN [facility] Address: [address] [place] [address] Performed By: #### 5 7021-8 #### [facility] CLIA [id number] [address] [place] Neutrophils/100 WBC (Bld) 63.8 % Normal [facility] Comment on above: Order Comment: Speci men Type: BLOOD SPECIMEN [facility] Address: [address] [place] [address] Performed By: #### 5 7021-8 #### [facility] CLIA [id number] [address] [place] [address] [place] Nucleated RBC (Bld) [#/Vol] 10*3/uL Normal <0.01 [facility] Comment on above: Order Comment: Speci men Type: BLOOD SPECIMEN [facility] Address: [address] [place] [address] Performed By: #### 5 7021-8 #### [facility] CLIA [id number] [address] [place] [address] [place] Nucleated RBC/100 WBC (Bld) [Ratio] 0.0 /100 WBC Normal [facility] Comment on above: Order Comment: Speci men Type: BLOOD SPECIMEN [facility] Address: [address] [place] [address] Performed By: #### 5 7021-8 #### [facility] CLIA [id number] [address] [place] [address] [place] Platelet mean volume (Bld) [Entitic vol] 10.1 fL Normal 9.0-12.7 [facility] Comment on above: Order Comment: Speci men Type: BLOOD SPECIMEN [facility] Address: [address] [place] [address] Performed By: #### 5 7021-8 #### [facility] CLIA [id number] [address] [place] [address] [facility] [place] Platelets (Bld) [#/Vol] 295 10*3/uL Normal 150-400 [facility] Comment on above: Order Comment: Speci men Type: BLOOD SPECIMEN [facility] Address: [address] [place] [address] Performed By: #### 5 7021-8 #### [facility] CLIA [id number] [address] [place] [address] [place] RBC (Bld) [#/Vol] 4.06 10*6/uL Normal 3.90-5.[address] [facility] Comment on above: Order Comment: Speci men Type: BLOOD SPECIMEN [facility] Address: [address] [place] [address] Performed By: #### 5 7021-8 #### [facility] CLIA [id number] [address] [facility] WBC (Bld) [#/Vol] 10.64 10*3/uL Normal 3.70-11.00 [facility] Comment on above: Order Comment: Speci men Type: BLOOD SPECIMEN [facility] Address: [place] [address] Performed By: #### 5 7021-8 #### [facility] CLIA [id number] [address] [place] CREATININE BLDon 01-19-2023 Creatinine [Mass/Vol] 0.72 mg/dL Normal 0.58-0.96 [facility] Comment on above: Order Comment: Speci men Type: BLOOD SPECIMEN [facility] Address: [address] [place] [address] Performed By: #### C RET1 #### [facility] CLIA [id number] [address] ESTIMATED GLOMERULAR FILTRATION RATE 89 mL/min/1.73m??? Normal >=60 [facility] Comment on above: Order Comment: Sheroni men Type: BLOOD SPECIMEN [facility] Address: [address] [place] [address] Result Comment: Mary mated Glomerular Filtration Rate [...] GFR. Performed By: #### C RET1 #### [facility] CLIA [id number] [address] CRP SerPl-mCncon 01-19-2023 CRP [Mass/Vol] 1.7 mg/dL High <0.9 [facility] Comment on above: Order Comment: Speci men Type: BLOOD SPECIMEN Order[facility] Facility[facility] Address: [address] [place] [id number] Performed By: #### 1 742-6, 7, 1920-03, 1987-12, #### [facility] CLIA [id number] [address] [place] [address] [place] Calcium SerPl-mCncon 023 Calcium [Mass/Vol] 9.5 mg/dL Normal 8.5-10.2 [facility] Comment on above: Order Comment: Speci men Type: BLOOD SPECIMEN Ordering [facility] Address: [place] [address] Performed By: #### 1 742-6, 7, 1920-03, 1987-12, #### [facility] CLIA [id number] [address] [place] ESR Westergren method (Bld) [Velocity]on 01-19-2023 ESR (Bld) [Velocity] 61 mm/h High 0 - 20 mm/hr Cl [facility] ESR (Bld) [Velocity] 61 mm/h High 0-20 [facility] Comment on above: Order Comment: Speci men Type: BLOOD SPECIMEN Ordering [facility] Address: [place] [address] Performed By: #### 4 537-7 #### [facility] CLIA [id number] [address] [facility] [id number] [place] PARRIS DIAG W DOMENIC LTon [address] [facility] US BREAST LTD LTon [address] [facility] PARRIS SCREENINGon 10-02-[address] [facility] XR TIBIA FIBULA 2V AP/LAT LE FTon 07-03-[address] [facility] XR Tibia and Fibula - left A P and Lateralon 07-03-2022 IMPRESSION: No radiographic evidence of acute osseous abnormality. Mild soft tissue swelling in the mid anterior calf. Branch Mechanic: PSCJaya Transcribe Date/Time: Jul 03 2022 10:24A Dictated by : PRIMO OBANDO MD This examination was interpreted and the report reviewed and electronically signed by: PRIMO OBANDO MD on Jul 03 2022 10:25AM [facility] DIVISION OF RADIOLOGY * * *Final [...] mid anterior calf. DIVISION OF RADIOLOGY Provider, [facility] - 07/03/2022 * * *Final Report* [...] tissue swelling in the mid anterior calf. Branch Mechanic: [facility] Transcribe Date/Time: Jul 03 2022 10:24A Dictated by : PRIMO OBANDO MD This examination was interpreted and the report reviewed and electronically signed by: PRIMO OBANDO MD on Jul 03 2022 10:25AM [facility] Radiology Study observation (narrative) [facility] XR Tibia and Fibula - left A P and LateralOrdered By: Ccf Provider on 07-03-[address] [facility] XR Chest PA and Lateralon IMPRESSION: No acute radiographic abnormality. Branch Mechanic: [facility] Transcribe Date/Time: May 22 2022 4:41P Dictated by : ANIKET LUNA MD This examination was interpreted and the report reviewed and electronically signed by: ANIKET LUNA MD on May 22 2022 4:42PM [facility] DIVISION OF RADIOLOGY * * *Final [...] soft tissues: Unremarkable. DIVISION OF RADIOLOGY Provider, [facility] - 05/22/2022 * * *Final Report* [...] Unremarkable. IMPRESSION IMPRESSION: No acute radiographic abnormality. Branch Mechanic: PSCB Transcribe Date/Time: May 22 2022 4:41P Dictated by : ANIKET LUNA MD This examination was interpreted and the report reviewed and electronically signed by: ANIKET LUNA MD on May 22 2022 4:42PM EST [facility] [facility] Radiology Study observation (narrative) Anayeli Zheng XR Chest PA and LateralOrder ed By: Ccf Provider on 05-22-[address] [facility] Basophil percentageon 2021 Basophil percentage < 0.9 mg/dL 0.55-1.02 [facility] Work Phone: No Panel Informationon 03-27 Bedside Estimated GFR (eGFR) > 60.0000 mL/min >60 [facility] Work Phone: OPERATIVE REPORTon 2 Ordered by an unspecified provider. [facility] Basic Metabolic Panelon 02-18 Anion gap [Moles/Vol] 8 mmol/L Normal 3-13 [facility] Comment on above: Performed By: #### B MP3, HEMOG #### [facility] [address] [place] [address] Calcium [Mass/Vol] 8.8 mg/dL Normal 8.4-10.4 [facility] Comment on above: Performed By: #### B MP3, HEMOG #### [facility] [address] [place] [address] CO2 [Moles/Vol] 30 mmol/L Normal 22-30 [facility] Comment on above: Performed By: #### B MP3, HEMOG #### [facility] [address] [place] [address] Glucose [Mass/Vol] 95 mg/dL Normal 70-100 [facility] Comment on above: Performed By: #### B MP3, HEMOG #### [facility] [address] [place] [address] Urea nitrogen [Mass/Vol] 17 mg/dL Normal 9-20 [facility] Comment on above: Performed By: #### B MP3, HEMOG #### [facility] [address] [place] [address] Creatinine [Mass/Vol] 0.77 mg/dL Normal 0.52-1.25 [facility] Comment on above: Performed By: #### B MP3, HEMOG #### [facility] [address] [place] [address] GFR/1.73 sq M.predicted among blacks MDRD (S/P/Bld) [Vol rate/Area] 89.5 mL/min/{1.73_m2} Normal >60 [facility] Comment on above: Performed By: #### B MP3, HEMOG #### [facility] [address] [place] [address] GFR/1.73 sq M.predicted among non-blacks MDRD (S/P/Bld) [Vol rate/Area] 77.2 mL/min/{1.73_m2} Normal >60 [facility] Comment on above: Result Comment: KDIG [...] Performed By: #### B MP3, HEMOG #### [facility] [address] [place] [address] Chloride [Moles/Vol] 102 mmol/L Normal 98-107 [facility] Comment on above: Performed By: #### B MP3, HEMOG #### [facility] [address] [place] [address] Potassium [Moles/Vol] 4.2 mmol/L Normal 3.5-5.1 [facility] Comment on above: Performed By: #### B MP3, HEMOG #### [facility] [address] [place] [address] Sodium [Moles/Vol] 140 mmol/L Normal 135-145 [facility] Comment on above: Performed By: #### B MP3, HEMOG #### [facility] [address] [place] [address] Anion gap [Moles/Vol] 8 mmol/L 3 - 13 mmol/L [facility] Calcium [Mass/Vol] 8.8 mg/dL 8.4 - 10. 4 mg/dL [facility] Chloride [Moles/Vol] 102 mmol/L 98 - 10 7 mmol/L [facility] CO2 [Moles/Vol] 30 mmol/L 22 - 30 mmol/L [facility] Creatinine [Mass/Vol] 0.77 mg/dL 0.52 - 1.25 mg/dL [facility] EGFR IF NonAfrican Filipino 77.2 mL/min 60 - PINF mL/min [facility] [...] - 20 mg/dL [facility] Test Performed by [facility] [employer] [facility], [address] [place], [place] [id number] [place] [address] LAB [facility] CBCon 03-16-2022 Hematocrit (Bld) [Volume fraction] 33.6 % Low 35 - 47 % [facility] Hemoglobin (Bld) [Mass/Vol] 11.4 g/dL Low 11.7 - 16 g/dL [facility] Interpretation and review of laboratory results Abnormal [facility] MCH (RBC) [Entitic mass] 30.8 pg 26 - 34 pg [facility] MCHC (RBC) [Mass/Vol] 34.0 % 32 - 36 % [facility] MCV (RBC) [Entitic vol] 90.5 fL 79 - [address] [facility] Platelet distribution width (Bld) [Ratio] 13.1 % 11.5 - 14.5 % [facility] Platelet mean volume (Bld) [Entitic vol] 7.8 fL 7.4 - 12.4 fL [facility] Comment on above: MPV is a calculated measurement using platelet volume ratio. Platelets (Bld) [#/Vol] 324 10*3/uL 140 - 440 10*3/uL [facility] RBC (Bld) [#/Vol] 3.71 10*6/uL Low 3.8 - 5.2 10*6/uL [facility] WBC (Bld) [#/Vol] 10.5 10*3/uL 3.6 - 10.7 10*3/uL [facility] Test Performed by [facility], [address] [place], [place] [id number] [place] [address] LAB [facility] Hemogramon 03-16-2022 Erythrocyte distribution width (RBC) [Ratio] 13.1 % Normal 11.5-14.5 [facility] Comment on above: Performed By: #### B MP3, HEMOG #### [facility] [address] [facility] [address] Hematocrit (Bld) [Volume fraction] 33.6 % Low 35.0-47.0 [facility] Comment on above: Performed By: #### B MP3, HEMOG #### [facility] [address] [place] [address] Hemoglobin (Bld) [Mass/Vol] 11.4 g/dL Low 11.7-16.0 [facility] Comment on above: Performed By: #### B MP3, HEMOG #### [facility] [address] [place] [address] MCH (RBC) [Entitic mass] 30.8 pg Normal 26.0-34.0 [facility] Comment on above: Performed By: #### B MP3, HEMOG #### [facility] [address] [place] [address] MCHC 34.0 % Normal 32.0-36.0 [facility] Comment on above: Performed By: #### B MP3, HEMOG #### [facility] [address] [place] [address] MCV (RBC) [Entitic vol] 90.5 fL Normal 79.0-98.0 [facility] Comment on above: Performed By: #### B MP3, HEMOG #### [facility] [address] [place] [address] Platelet mean volume (Bld) [Entitic vol] 7.8 fL Normal 7.4-12.4 [facility] Comment on above: Result Comment: MPV is a calculated measurement using platelet volume ratio. Performed By: #### B MP3, HEMOG #### [facility] [address] [place] [address] Platelets (Bld) [#/Vol] 324 10*3/uL Normal 140-440 [facility] Comment on above: Performed By: #### B MP3, HEMOG #### [facility] [address] [place] [address] RBC (Bld) [#/Vol] 3.71 10*6/uL Low 3.80-5.20 [facility] Comment on above: Performed By: #### B MP3, HEMOG #### [facility] [address] [place] [address] WBC (Bld) [#/Vol] 10.5 10*3/uL Normal 3.6-10.7 [facility] Comment on above: Performed By: #### B MP3, HEMOG #### [facility] [address] 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 FOR MORE INFORMATION: [facility] Osteoporosis and Metabolic Bone Disease: www.ccf.org/arthritis/ osteo National Osteoporosis Foundation: www.nof.org International Society of Clinical Densitometry www.iscd.org [employer] CLASSIFICATION OF BONE MASS: CLASSIFICATION T-SCORE Normal Greater than -1 Low Bone Mass Between -1 and -2.5 (Osteopenia) Osteoporosis Less than or equal to -2.5 Branch Mechanic: NAYELY Transcribe Date/Time: Feb 06 2022 11:08A Dictated by : LUCILA HASKINS MD This examination was interpreted and the report reviewed and electronically signed by: LUCILA HASKINS MD on Feb 06 2022 11:09AM EST [id number] -2.1 [facility] CTA HEAD WO/W IVCONon [address] [facility] CR Ankle 3+ Views Righton CR Ankle 3+ Views Right Patient Name: CECELIA GRAJEDA Diagnostic Radiology ACCESSION EXAM DATE/TIME PROCEDURE ORDERING PROVIDER [id number] 12/30/2021 14:35 EDT CR Ankle 3+ Views Right [id number] -MARIELOS JARQUIN CPT code 78630 Reason For Exam (CR Ankle 3+ Views [...] Transcribed Date and Time: 01/01/2022 10:35 Normal [facility] CALCIUM TOTAL [facility] 12-17-19 Calcium [Mass/Vol] 9.3 mg/dL 8.5 - 10. 2 mg/dL [facility] CREATININE [facility] 12-16-2021 Creatinine [Mass/Vol] 0.81 mg/dL 0.58 - 0.96 mg/dL [facility] Estimated Glomerular Filtration Rate 78 mL/min/1.73m >=60 mL/min/1.73m [facility] XR CERV OTHER 4V AP/LAT/OBLo n 12-16-[address] [facility] XR Cervical spine AP and Lat eral [...] facet arthrosis. [id number] SE_DIVISION OF RADIOLOGY Provider, [facility] - 12/16/2021 * * *Final Report* [...] Moderate diffuse cervical spondylosis with interval progression. Branch Mechanic: NAYELY Transcribe Date/Time: Dec 16 2021 1:18P Dictated by : ANNIKA MONTALVO MD This examination was interpreted and the report reviewed and electronically signed by: ANNIKA MONTALVO MD on Dec 16 2021 1:19PM [facility] Radiology Study observation (narrative) [facility] XR Cervical spine AP and Lat eral and obliqueOrdered By: Ccf Provider on 12-16-[address] [facility] XR ANKLE RIGHT (MIN 3 VIEWS) on 10-31-2019 Patient Name: CECELIA QUIROZ ---Diagnostic Radiology--- Exam Date/Time 10/31/2019 10:45:00 EDT Exam CR Ankle 3+ Views Right Ordering Physician ARTUR PENNINGTON Accession Number [id number] CPT4 Codes 94863 () Reason For Exam pain Report RIGHT [...] evidence for fracture. Report Dictated on Workstation: DripDropDS --- Final --- Dictating Physician: MD DANIEL GEORGE RICHARD Signed Date and Time: 10/31/2019 3:28 pm Signed by: MD DANIEL GEORGE RICHARD Transcribed Date and Time: 10/31/2019 3:29 [facility] [place] Steve, [facility] Incoming Radiology Results From [facility] - 10/31/2019 3:29 PM EDT Patient Name: CECELIA QUIROZ ---Diagnostic Radiology--- Exam Date/Time 10/31/2019 10:45:00 EDT Exam CR Ankle 3+ Views Right Ordering Physician ARTUR PENNINGTON Accession Number [id number] CPT4 Codes 86190 () Reason For Exam pain Report RIGHT [...] evidence for fracture. Report Dictated on Workstation: DripDropDS --- Final --- Dictating Physician: MD FREDY, CATARINO WILDE Signed Date and Time: 10/31/2019 3:28 pm Signed by: MD DANIEL GEORGE RICHARD Transcribed Date and Time: 10/31/2019 3:29 [place] ELBOW COMPLETE MIN. 3 VIEWSo n 04-22-2019 ELBOW COMPLETE MIN. 3 VIEWS Patient Name: CECELIA QUIROZ STUDY: ELBOW COMPLETE MIN 3 VIEWS; 04/22/2019 7:46 pm INDICATION: Left elbow pain after fall. COMPARISON: None. ACCESSION NUMBER(S): [id number] ORDERING CLINICIAN: ALTHEA STOUT TECHNIQUE: Five views of the left elbow were reviewed. FINDINGS: No evidence of acute fracture or dislocation. Linear calcification in the region of the radial collateral ligament. Linear spur of the olecranon as well. No abnormal joint effusion is identified. Soft tissues appear unremarkable. IMPRESSION: No acute osseous injury. Electronically signed by: DO Osman NICHOLE [facility] HUMERUS, MIN 2 VIEWSon 04-22 HUMERUS, MIN 2 VIEWS Patient Name: CECELIA QUIROZ STUDY: HUMERUS, MIN 2 VIEWS; SHOULDER, CMPLT, MIN 2 VIEWS; 04/22/2019 7:46 pm INDICATION: Left shoulder and humerus pain after fall, trauma. COMPARISON: None. ACCESSION NUMBER(S): [id number]; [id number] ORDERING CLINICIAN: ALTHEA STOUT TECHNIQUE: There are [...] fracture. Electronically signed by: DO Osman NICHOLE [facility] Provider Note - ED v2on 0 Provider [...] that she was swinging with the harness. [place] a snap. Did not hit head or [...] SIGNS: T PRBP SpO2O2(LPM) %FiO2 Method 22-Apr-2019 18:04:[id number]/7 0 96 room air, no respiratory support [...] ill patient: no Electronic Signatures: Althea Stout (MIXING TUMBLER OPERATOR-RIP SAW OPERATOR) (Signed 22-Apr-2019 18:22) Authored: Provider Note - ED v2 Juan Antonio Smiley) (Signed 22-Apr-2019 23:42) Authored: Provider Note - ED v2 Last Updated: 22-Apr-2019 23:42 by Juan Antonio Smiley) References: 1. Data Referenced From Triage - ED 22-Apr-2019 18:04 Normal [facility] Risk Screen - PEDS Emergency on 04-22-2019 [...] Learning Preferencesskill demonstration Cultural Considerationsnone Developmental Considerationsnone Mosque Considerationsnone Other Learnersfamily Learning Assessment (Other Learner): Other learner availableyes Other Learner is Able to be Assessed for Learningyes Learnerfamily Factors Influencing Readiness to Learnmotivation to learn Factors that Impact Ability to Learnnone Devices/Methods Used to Communicatenone Learning Preferencesverbal instruction Cultural Considerationsnone Developmental Considerationsnone Mosque Considerationsnone Family Violence PEDS: Family Violence Screen [...] 22-Apr-2019 19:57 by Chelsea Whitten (RN) Normal [facility] SHOULDER, CMPLT, MIN 2 VIEWS on 04-22-2019 SHOULDER, CMPLT, MIN 2 VIEWS Patient Name: CECELIA QUIROZ STUDY: HUMERUS, MIN 2 VIEWS; SHOULDER, CMPLT, MIN 2 VIEWS; 04/22/2019 7:46 pm INDICATION: Left shoulder and humerus pain after fall, trauma. COMPARISON: None. ACCESSION NUMBER(S): [id number]; [id number] ORDERING CLINICIAN: ALTHEA STOUT TECHNIQUE: There are [...] fracture. Electronically signed by: DO Osman NICHOLE [facility] Triage - EDon 04-22-2019 Triage - ED [...] BMI (kg/m2): 24.208 Calculated BSA (m2) 1.78 [place] Coma Scale: Best Eye Response: (E4) spontaneous [...] Mode of Arrival: ambulance Agency: [facility] ([place]) Arrival From: home Accompanied By: self Language: Spoken Language Preferred: Croatian Reading Language Preferred: Croatian Past Medical History: Past Medical History Reviewedno Electronic Signatures: Katerine Deleon (REINALDO) (Signed 22-Apr-2019 18:05) Authored: Triage, Past Medical History Last Updated: 22-Apr-2019 18:05 by Katerine Deleon (REINALDO) Normal [facility] Vital Signs Date Time Vital Sign Value Performing Clinician Facility 06-18-2025 08:44-0400 Body temperature 97.5 [degF] Dr. Miah Cottrell DO Work Phone: [facility] 06-18-2025 08:44-0400 Diastolic blood pressure 54 mm[Hg] Dr. Miah Cottrell DO Work Phone: [facility] 06-18-2025 08:44-0400 Heart rate 54 /min Dr. Miah Cottrell DO Work Phone: 2(639)297-587747 [place] [address] 06-18-2025 08:44-0400 Respiratory rate 16 /min Dr. Miah Cottrell DO Work Phone: 4(173)881-949547 [place] [address] 06-18-2025 08:44-0400 SaO2% (BldA) [Mass fraction] 99 % Dr. Miah Cottrell DO Work Phone: 7(257)160-412747 [place] [address] 06-18-2025 08:44-0400 Systolic blood pressure 135 mm[Hg] Dr. Miah Cottrell DO Work Phone: 4(553)042-489347 [place] [address] 06-18-2025 06:54-0400 Body height 160.[address] Miah Cottrell DO Work Phone: 9(642)947-089447 [place] [address] 06-18-2025 06:54-0400 Body mass index (BMI) [Ratio] 24.4 kg/m2 Dr. Miah Cottrell DO Work Phone: 5(776)775-486647 [place] [address] 06-18-2025 06:54-0400 Body weight 62.[address] Miah Cottrell DO Work Phone: 2(320)266-486947 [place] [address] 06-09-2025 13:55-0400 Body height 160.[address] Miah Cottrell DO Work Phone: 1(212)227-395547 [place] [address] 06-09-2025 13:55-0400 Body mass index (BMI) [Ratio] 24.6 kg/m2 Dr. Miah Cottrell DO Work Phone: 7(331)247-347947 [place] [address] 06-09-2025 13:55-0400 Body weight 63.[address] Miah Cottrell DO Work Phone: 7(264)674-166347 [place] [address] 06-09-2025 13:55-0400 Diastolic blood pressure 69 mm[Hg] Dr. Miah Cottrell DO Work Phone: 6(966)729-513347 [place] [address] 06-09-2025 13:55-0400 Heart rate 82 /min Dr. Miah Cottrell DO Work Phone: 4(082)381-830347 [place] [address] 06-09-2025 13:55-0400 Systolic blood pressure 137 mm[Hg] Dr. Miah Cottrell DO Work Phone: [facility] 05-26-2025 11:49-0400 Body height 160.[address] Miah Cottrell DO Work Phone: [facility] 05-26-2025 11:49-0400 Body mass index (BMI) [Ratio] 24.6 kg/m2 Dr. Miah Cottrell DO Work Phone: [facility] 05-26-2025 11:49-0400 Body weight 63.[address] Miah Cottrell DO Work Phone: [facility] 05-26-2025 11:49-0400 Diastolic blood pressure 70 mm[Hg] Dr. Miah Cottrell DO Work Phone: [facility] 05-26-2025 11:49-0400 Heart rate 63 /min Dr. Miah Cottrell DO Work Phone: [facility] 05-26-2025 11:49-0400 Systolic blood pressure 131 mm[Hg] Dr. Miah Cottrell DO Work Phone: [facility] 2025 12:48-0400 Body mass index (BMI) [Ratio] 23.45 kg/m2 Marko Wood MD Work Phone: [facility] 2025 12:48-0400 Body weight 63.3 kg Marko Wood MD Work Phone: [facility] 2025 12:48-0400 Diastolic blood pressure 74 mm[Hg] Marko Wood MD Work Phone: [facility] 2025 12:48-0400 Heart rate 83 /min Marko Wood MD Work Phone: [facility] 2025 12:48-0400 SaO2% (BldA) [Mass fraction] 96 % Marko Wood MD Work Phone: [facility] 2025 12:48-0400 Systolic blood pressure 130 mm[Hg] Marko Wood MD Work Phone: [facility] 03-17-2025 10:42-0400 Body mass index (BMI) [Ratio] 22.78 kg/m2 Miah Cottrell DO Work Phone: [facility] 03-17-2025 10:42-0400 Body temperature 96.6 [degF] Miah Cottrell DO Work Phone: [facility] 03-17-2025 10:42-0400 Body weight 63.05 kg Miah Cottrell DO Work Phone: [facility] 03-17-2025 10:42-0400 Diastolic blood pressure 60 mm[Hg] Miah Cottrell DO Work Phone: [facility] 03-17-2025 10:42-0400 Heart rate 60 /min Miah Cottrell DO Work Phone: [facility] 03-17-2025 10:42-0400 Respiratory rate 20 /min Miah Cottrell DO Work Phone: [facility] 03-17-2025 10:42-0400 Systolic blood pressure 120 mm[Hg] Miah Cottrell DO Work Phone: [facility] 02-13-2025 12:48-0400 Body mass index (BMI) [Ratio] 22.76 kg/m2 Dorothy Pisano MIXING TUMBLER OPERATOR.RIP SAW OPERATOR Work Phone: [facility] 02-13-2025 12:48-0400 Body weight 63 kg Dorothy Pisano MIXING TUMBLER OPERATOR.RIP SAW OPERATOR Work Phone: [facility] 02-13-2025 12:48-0400 Heart rate 77 /min Dorothy Pisano MIXING TUMBLER OPERATOR.RIP SAW OPERATOR Work Phone: [facility] 02-13-2025 12:48-0400 SaO2% (BldA) [Mass fraction] 96 % Dorothy Pisano MIXING TUMBLER OPERATOR.RIP SAW OPERATOR Work Phone: [facility] 02-06-2025 15:02-0400 Body height 166.4 cm Palma Lovett APRN.RIP SAW OPERATOR Work Phone: [facility] 02-06-2025 15:02-0400 Body mass index (BMI) [Ratio] 22.62 kg/m2 Palma Lovett MIXING TUMBLER OPERATOR.RIP SAW OPERATOR Work Phone: [facility] 02-06-2025 15:02-0400 Body temperature 97.39 [degF] Palma Lovett MIXING TUMBLER OPERATOR.RIP SAW OPERATOR Work Phone: [facility] 02-06-2025 15:02-0400 Body weight 62.6 kg Palma Lovett MIXING TUMBLER OPERATOR.RIP SAW OPERATOR Work Phone: [facility] 02-06-2025 15:02-0400 Diastolic blood pressure 67 mm[Hg] Palma Lovett MIXING TUMBLER OPERATOR.RIP SAW OPERATOR Work Phone: [facility] 02-06-2025 15:02-0400 Heart rate 59 /min Palma Lovett MIXING TUMBLER OPERATOR.RIP SAW OPERATOR Work Phone: [facility] 02-06-2025 15:02-0400 Systolic blood pressure 119 mm[Hg] Palma Lovett MIXING TUMBLER OPERATOR.RIP SAW OPERATOR Work Phone: [facility] 11-21-2024 12:19-0400 Body mass index (BMI) [Ratio] 22.78 kg/m2 Wily Abarca MIXING TUMBLER OPERATOR.RIP SAW OPERATOR Work Phone: [facility] 11-21-2024 12:19-0400 Body temperature 97 [degF] Wily Zieglerman MIXING TUMBLER OPERATOR.RIP SAW OPERATOR Work Phone: [facility] 11-21-2024 12:19-0400 Body weight 63.05 kg Wily Zieglerman MIXING TUMBLER OPERATOR.RIP SAW OPERATOR Work Phone: [facility] 11-21-2024 12:19-0400 Diastolic blood pressure 70 mm[Hg] Wily Tevin MIXING TUMBLER OPERATOR.RIP SAW OPERATOR Work Phone: [facility] 11-21-2024 12:19-0400 Heart rate 64 /min Wily Alamoutzman MIXING TUMBLER OPERATOR.RIP SAW OPERATOR Work Phone: [facility] 11-21-2024 12:19-0400 Respiratory rate 20 /min Wily Tevin MIXING TUMBLER OPERATOR.RIP SAW OPERATOR Work Phone: [facility] 11-21-2024 12:19-0400 Systolic blood pressure 120 mm[Hg] Wily Tevin MIXING TUMBLER OPERATOR.RIP SAW OPERATOR Work Phone: [facility] 05-23-2024 13:20-0400 Body mass index (BMI) [Ratio] 23.93 kg/m2 Wily Tevin MIXING TUMBLER OPERATOR.RIP SAW OPERATOR Work Phone: [facility] 05-23-2024 13:20-0400 Body weight 66.22 kg Wily Tevin MIXING TUMBLER OPERATOR.RIP SAW OPERATOR Work Phone: [facility] 05-23-2024 13:20-0400 Diastolic blood pressure 62 mm[Hg] Wily Tevin MIXING TUMBLER OPERATOR.RIP SAW OPERATOR Work Phone: [facility] 05-23-2024 13:20-0400 Heart rate 61 /min Wily Tevin MIXING TUMBLER OPERATOR.RIP SAW OPERATOR Work Phone: [facility] 05-23-2024 13:20-0400 Respiratory rate 16 /min Wily Tevin MIXING TUMBLER OPERATOR.RIP SAW OPERATOR Work Phone: [facility] 05-23-2024 13:20-0400 SaO2% (BldA) [Mass fraction] 100 % Wily Tevin MIXING TUMBLER OPERATOR.RIP SAW OPERATOR Work Phone: [facility] 05-23-2024 13:20-0400 Systolic blood pressure 114 mm[Hg] Wily Tevin MIXING TUMBLER OPERATOR.RIP SAW OPERATOR Work Phone: [facility] 2024 15:47-0400 Body mass index (BMI) [Ratio] 23.95 kg/m2 Marko Wood MD Work Phone: [facility] 2024 15:47-0400 Body weight 66.3 kg Marko Wood MD Work Phone: [facility] 2024 15:47-0400 Diastolic blood pressure 68 mm[Hg] Marko Wood MD Work Phone: [facility] 2024 15:47-0400 Heart rate 62 /min Marko Wood MD Work Phone: [facility] 2024 15:47-0400 SaO2% (BldA) [Mass fraction] 99 % Marko Wood MD Work Phone: [facility] 2024 15:47-0400 Systolic blood pressure 111 mm[Hg] Marko Wood MD Work Phone: [facility] 03-31-2024 12:05-0400 Body mass index (BMI) [Ratio] 23.95 kg/m2 Ady Mackenzie MD Work Phone: [facility] 03-31-2024 12:05-0400 Body temperature 98.29 [degF] Ady Mackenzie MD Work Phone: [facility] 03-31-2024 12:05-0400 Body weight 66.3 kg Ady Mackenzie MD Work Phone: [facility] 03-31-2024 12:05-0400 Diastolic blood pressure 70 mm[Hg] Ady Mackenzie MD Work Phone: [facility] 03-31-2024 12:05-0400 Heart rate 87 /min Ady Mackenzie MD Work Phone: [facility] 03-31-2024 12:05-0400 Respiratory rate 20 /min Ady Mackenzie MD Work Phone: [facility] 03-31-2024 12:05-0400 SaO2% (BldA) [Mass fraction] 98 % Ady Mackenzie MD Work Phone: [facility] 03-31-2024 12:05-0400 Systolic blood pressure 142 mm[Hg] Ady Mackenzie MD Work Phone: [facility] 03-26-2024 13:08-0400 Body mass index (BMI) [Ratio] 24.17 kg/m2 Carly Ramirez APRN.CNP Work Phone: [facility] 03-26-2024 13:08-0400 Body temperature 97 [degF] Carly Podlogar MIXING TUMBLER OPERATOR.RIP SAW OPERATOR Work Phone: [facility] 03-26-2024 13:08-0400 Body weight 66.9 kg Carly Podlogar MIXING TUMBLER OPERATOR.RIP SAW OPERATOR Work Phone: [facility] 03-26-2024 13:08-0400 Diastolic blood pressure 74 mm[Hg] Carly Podlogar MIXING TUMBLER OPERATOR.RIP SAW OPERATOR Work Phone: [facility] 03-26-2024 13:08-0400 Heart rate 72 /min Carly Podlogar MIXING TUMBLER OPERATOR.RIP SAW OPERATOR Work Phone: [facility] 03-26-2024 13:08-0400 Respiratory rate 20 /min Carly Podlogar MIXING TUMBLER OPERATOR.RIP SAW OPERATOR Work Phone: [facility] 03-26-2024 13:08-0400 Systolic blood pressure 116 mm[Hg] Carly Podlogar MIXING TUMBLER OPERATOR.RIP SAW OPERATOR Work Phone: [facility] 02-18-2024 10:26-0400 Body mass index (BMI) [Ratio] 24.65 kg/m2 Ronna Quiroz MIXING TUMBLER OPERATOR.RIP SAW OPERATOR Work Phone: [facility] 02-18-2024 10:26-0400 Body weight 68.22 kg Ronna Quiroz MIXING TUMBLER OPERATOR.RIP SAW OPERATOR Work Phone: [facility] 02-18-2024 10:26-0400 Diastolic blood pressure 62 mm[Hg] Ronna Quiroz MIXING TUMBLER OPERATOR.RIP SAW OPERATOR Work Phone: [facility] 02-18-2024 10:26-0400 Heart rate 61 /min Ronna Quiroz MIXING TUMBLER OPERATOR.RIP SAW OPERATOR Work Phone: [facility] 02-18-2024 10:26-0400 Respiratory rate 12 /min Ronna Quiroz MIXING TUMBLER OPERATOR.RIP SAW OPERATOR Work Phone: [facility] 02-18-2024 10:26-0400 SaO2% (BldA) [Mass fraction] 99 % Ronna Quiroz MIXING TUMBLER OPERATOR.RIP SAW OPERATOR Work Phone: [facility] 02-18-2024 10:26-0400 Systolic blood pressure 124 mm[Hg] Ronna Quiroz RIP SAW OPERATOR Work Phone: [facility] 02-07-2024 13:07-0400 Body mass index (BMI) [Ratio] 24.75 kg/m2 Anca Rodriguez MD Work Phone: [facility] 02-07-2024 13:07-0400 Body weight 68.49 kg Anca Rodriguez MD Work Phone: [facility] 02-07-2024 13:07-0400 Diastolic blood pressure 72 mm[Hg] Anca Rodriguez MD Work Phone: [facility] 02-07-2024 13:07-0400 Systolic blood pressure 124 mm[Hg] Anca Rodriguez MD Work Phone: [facility] 01-28-2024 12:50-0400 Body height 166.4 cm Magdalene Bradford MD Work Phone: [facility] 01-28-2024 12:50-0400 Body mass index (BMI) [Ratio] 24.57 kg/m2 Magdalene Bradford MD Work Phone: [facility] 01-28-2024 12:50-0400 Body temperature 97.9 [degF] Magdalene Bradford MD Work Phone: [facility] 01-28-2024 12:50-0400 Body weight 68 kg Magdalene Bradford MD Work Phone: [facility] 01-28-2024 12:50-0400 Diastolic blood pressure 70 mm[Hg] Magdalene Bradford MD Work Phone: [facility] 01-28-2024 12:50-0400 Heart rate 80 /min Magdalene Bradford MD Work Phone: [facility] 01-28-2024 12:50-0400 Systolic blood pressure 112 mm[Hg] Magdalene Bradford MD Work Phone: [facility] 01-28-2024 10:50-0400 Diastolic blood pressure 80 mm[Hg] Ronna Quiroz MIXING TUMBLER OPERATOR.RIP SAW OPERATOR Work Phone: [facility] 01-28-2024 10:50-0400 Systolic blood pressure 142 mm[Hg] Ronna Quiroz MIXING TUMBLER OPERATOR.RIP SAW OPERATOR Work Phone: [facility] 01-28-2024 10:21-0400 Body mass index (BMI) [Ratio] 24.84 kg/m2 Ronna Quiroz MIXING TUMBLER OPERATOR.RIP SAW OPERATOR Work Phone: [facility] 01-28-2024 10:21-0400 Body weight 68.77 kg Ronna Quiroz MIXING TUMBLER OPERATOR.RIP SAW OPERATOR Work Phone: [facility] 01-28-2024 10:21-0400 Heart rate 68 /min Ronna Quiroz MIXING TUMBLER OPERATOR.RIP SAW OPERATOR Work Phone: [facility] 01-28-2024 10:21-0400 Respiratory rate 16 /min Ronna Quiroz MIXING TUMBLER OPERATOR.RIP SAW OPERATOR Work Phone: [facility] 01-09-2024 09:07-0400 Body mass index (BMI) [Ratio] 24.94 kg/m2 Ronna Quiroz MIXING TUMBLER OPERATOR.RIP SAW OPERATOR Work Phone: [facility] 01-09-2024 09:07-0400 Body weight 69.04 kg Ronna Quiroz MIXING TUMBLER OPERATOR.RIP SAW OPERATOR Work Phone: [facility] 01-09-2024 09:07-0400 Diastolic blood pressure 82 mm[Hg] Ronna Quiroz MIXING TUMBLER OPERATOR.RIP SAW OPERATOR Work Phone: [facility] 01-09-2024 09:07-0400 Heart rate 72 /min Ronna Quiroz MIXING TUMBLER OPERATOR.RIP SAW OPERATOR Work Phone: [facility] 01-09-2024 09:07-0400 Respiratory rate 14 /min Ronna Quiroz MIXING TUMBLER OPERATOR.RIP SAW OPERATOR Work Phone: [facility] 01-09-2024 09:07-0400 Systolic blood pressure 142 mm[Hg] Ronna Quiroz MIXING TUMBLER OPERATOR.RIP SAW OPERATOR Work Phone: [facility] 12-17-2023 12:45-0400 Body mass index (BMI) [Ratio] 24.58 kg/m2 Miah Cottrell DO Work Phone: [facility] 12-17-2023 12:45-0400 Body temperature 97 [degF] Miah Cottrell DO Work Phone: [facility] 12-17-2023 12:45-0400 Body weight 68.04 kg Miah Cottrell DO Work Phone: [facility] 12-17-2023 12:45-0400 Diastolic blood pressure 60 mm[Hg] Miah Cottrell DO Work Phone: [facility] 12-17-2023 12:45-0400 Heart rate 60 /min Miah Cottrell DO Work Phone: [facility] 12-17-2023 12:45-0400 Respiratory rate 16 /min Miah Cottrell DO Work Phone: [facility] 12-17-2023 12:45-0400 Systolic blood pressure 122 mm[Hg] Miah Cottrell DO Work Phone: [facility] 10-05-2023 15:10-0500 Diastolic blood pressure 75 mm[Hg] Palma Lovett MIXING TUMBLER OPERATOR.RIP SAW OPERATOR Work Phone: [facility] 10-05-2023 15:10-0500 Heart rate 60 /min Palma Lovett MIXING TUMBLER OPERATOR.RIP SAW OPERATOR Work Phone: [facility] 10-05-2023 15:10-0500 Systolic blood pressure 161 mm[Hg] Palma Lovett MIXING TUMBLER OPERATOR.RIP SAW OPERATOR Work Phone: [facility] 10-05-2023 15:08-0500 Body height 166.4 cm Palma Lovett MIXING TUMBLER OPERATOR.RIP SAW OPERATOR Work Phone: [facility] 10-05-2023 15:08-0500 Body temperature 97.3 [degF] Palma Lovett MIXING TUMBLER OPERATOR.RIP SAW OPERATOR Work Phone: [facility] 10-05-2023 15:08-0500 Body weight 68.49 kg Palma Lovett MIXING TUMBLER OPERATOR.RIP SAW OPERATOR Work Phone: [facility] 07-23-2023 10:26-0500 Body temperature 98.2 [degF] Nurse Stro Work Phone: [facility] 07-23-2023 10:26-0500 Diastolic blood pressure 57 mm[Hg] Nurse Stro Work Phone: [facility] 07-23-2023 10:26-0500 Heart rate 66 /min Nurse Stro Work Phone: [facility] 07-23-2023 10:26-0500 Systolic blood pressure 120 mm[Hg] Nurse Stro Work Phone: [facility] 06-15-2023 12:45-0400 Body temperature 97.3 [degF] Miah Cottrell DO Work Phone: [facility] 06-15-2023 12:45-0400 Body weight 67.59 kg Miah Cottrell DO Work Phone: [facility] 06-15-2023 12:45-0400 Diastolic blood pressure 60 mm[Hg] Miah Cottrell DO Work Phone: [facility] 06-15-2023 12:45-0400 Heart rate 76 /min Miah Cottrell DO Work Phone: [facility] 06-15-2023 12:45-0400 Respiratory rate 16 /min Miah Cottrell DO Work Phone: [facility] 06-15-2023 12:45-0400 Systolic blood pressure 120 mm[Hg] Miah Cottrell DO Work Phone: [facility] 05-07-2023 14:47-0400 Body temperature 97.2 [degF] Will Ruiz MD Work Phone: [facility] 05-07-2023 14:47-0400 Diastolic blood pressure 72 mm[Hg] Will Ruiz MD Work Phone: [facility] 05-07-2023 14:47-0400 Heart rate 107 /min Will Ruiz MD Work Phone: [facility] 05-07-2023 14:47-0400 SaO2% (BldA) [Mass fraction] 97 % Will Ruiz MD Work Phone: [facility] 05-07-2023 14:47-0400 Systolic blood pressure 128 mm[Hg] Will Ruiz MD Work Phone: [facility] 04-19-2023 10:49-0400 Body height 166.4 cm Marko Wood MD Work Phone: [facility] 04-19-2023 10:49-0400 Body weight 66.86 kg Marko Wood MD Work Phone: [facility] 04-19-2023 10:49-0400 Diastolic blood pressure 76 mm[Hg] Marko Wood MD Work Phone: [facility] 04-19-2023 10:49-0400 Heart rate 77 /min Marko Wood MD Work Phone: [facility] 04-19-2023 10:49-0400 SaO2% (BldA) [Mass fraction] 98 % Marko Wood MD Work Phone: [facility] 04-19-2023 10:49-0400 Systolic blood pressure 129 mm[Hg] Marko Wood MD Work Phone: [facility] 01-19-2023 14:45-0400 Body height 166.4 cm Janie Shilpa PA-C Work Phone: [facility] 01-19-2023 14:45-0400 Body temperature 98.6 [degF] Janie Shilpa PA-C Work Phone: [facility] 01-19-2023 14:45-0400 Body weight 64.86 kg Janie Shilpa PA-C Work Phone: [facility] 01-19-2023 14:45-0400 Diastolic blood pressure 57 mm[Hg] Janie Shilpa PA-C Work Phone: [facility] 01-19-2023 14:45-0400 Respiratory rate 16 /min Janie Shilpa PA-C Work Phone: [facility] 01-19-2023 14:45-0400 SaO2% (BldA) [Mass fraction] 97 % Janie Shilpa PA-C Work Phone: [facility] 01-19-2023 14:45-0400 Systolic blood pressure 127 mm[Hg] Janie Shilpa PA-C Work Phone: [facility] 07-31-2022 10:43-0500 Body temperature 97.5 [degF] Injection Stro Work Phone: [facility] 07-31-2022 10:43-0500 Body weight 61.19 kg Injection Stro Work Phone: [facility] 07-31-2022 10:43-0500 Diastolic blood pressure 57 mm[Hg] Injection Stro Work Phone: [facility] 07-31-2022 10:43-0500 Heart rate 82 /min Injection Stro Work Phone: [facility] 07-31-2022 10:43-0500 Respiratory rate 18 /min Injection Stro Work Phone: [facility] 07-31-2022 10:43-0500 SaO2% (BldA) [Mass fraction] 82 % Injection Stro Work Phone: [facility] 07-31-2022 10:43-0500 Systolic blood pressure 115 mm[Hg] Injection Stro Work Phone: [facility] 07-24-2022 13:07-0500 Body height 166.4 cm Magdalene Bradford MD Work Phone: [facility] 07-24-2022 13:07-0500 Body temperature 97.7 [degF] Magdalene Bradford MD Work Phone: [facility] 07-24-2022 13:07-0500 Body weight 61.24 kg Magdalene Bradford MD Work Phone: [facility] 07-24-2022 13:07-0500 Diastolic blood pressure 68 mm[Hg] Magdalene Bradford MD Work Phone: [facility] 07-24-2022 13:07-0500 Heart rate 75 /min Magdalene Bradford MD Work Phone: [facility] 07-24-2022 13:07-0500 Systolic blood pressure 125 mm[Hg] Magdalene Bradford MD Work Phone: [facility] 07-07-2022 09:42-0500 Body temperature 97.7 [degF] Wily Tevin MIXING TUMBLER OPERATOR.RIP SAW OPERATOR Work Phone: [facility] 07-07-2022 09:42-0500 Body weight 61.42 kg Wily Tevin MIXING TUMBLER OPERATOR.RIP SAW OPERATOR Work Phone: [facility] 07-07-2022 09:42-0500 Diastolic blood pressure 64 mm[Hg] Wily Tevin MIXING TUMBLER OPERATOR.RIP SAW OPERATOR Work Phone: [facility] 07-07-2022 09:42-0500 Heart rate 77 /min Wily Tevin MIXING TUMBLER OPERATOR.RIP SAW OPERATOR Work Phone: [facility] 07-07-2022 09:42-0500 Respiratory rate 16 /min Wily Tevin MIXING TUMBLER OPERATOR.RIP SAW OPERATOR Work Phone: [facility] 07-07-2022 09:42-0500 SaO2% (BldA) [Mass fraction] 96 % Wily Tevin MIXING TUMBLER OPERATOR.RIP SAW OPERATOR Work Phone: [facility] 07-07-2022 09:42-0500 Systolic blood pressure 116 mm[Hg] Wily Tevin MIXING TUMBLER OPERATOR.RIP SAW OPERATOR Work Phone: [facility] 07-03-2022 09:11-0500 Body weight 61.51 kg Wily Tevin MIXING TUMBLER OPERATOR.RIP SAW OPERATOR Work Phone: [facility] 07-03-2022 09:11-0500 Diastolic blood pressure 64 mm[Hg] Wily Tevin MIXING TUMBLER OPERATOR.RIP SAW OPERATOR Work Phone: [facility] 07-03-2022 09:11-0500 Heart rate 91 /min Wily Tevin MIXING TUMBLER OPERATOR.RIP SAW OPERATOR Work Phone: [facility] 07-03-2022 09:11-0500 Respiratory rate 16 /min Wily Tevin MIXING TUMBLER OPERATOR.RIP SAW OPERATOR Work Phone: [facility] 07-03-2022 09:11-0500 SaO2% (BldA) [Mass fraction] 99 % Wily Tevin MIXING TUMBLER OPERATOR.RIP SAW OPERATOR Work Phone: [facility] 07-03-2022 09:11-0500 Systolic blood pressure 110 mm[Hg] Wily Tevin MIXING TUMBLER OPERATOR.RIP SAW OPERATOR Work Phone: [facility] 06-25-2022 13:30-0500 Body temperature 97.81 [degF] Jeremy Noel MIXING TUMBLER OPERATOR.RIP SAW OPERATOR Work Phone: [facility] 06-25-2022 13:30-0500 Body weight 60.78 kg Jeremy Noel MIXING TUMBLER OPERATOR.RIP SAW OPERATOR Work Phone: [facility] 06-25-2022 13:30-0500 Diastolic blood pressure 70 mm[Hg] Jeremy Noel MIXING TUMBLER OPERATOR.RIP SAW OPERATOR Work Phone: [facility] 06-25-2022 13:30-0500 Heart rate 71 /min Jeremy Noel MIXING TUMBLER OPERATOR.RIP SAW OPERATOR Work Phone: [facility] 06-25-2022 13:30-0500 Respiratory rate 16 /min Jeremy Noel MIXING TUMBLER OPERATOR.RIP SAW OPERATOR Work Phone: [facility] 06-25-2022 13:30-0500 SaO2% (BldA) [Mass fraction] 98 % Jeremy Noel MIXING TUMBLER OPERATOR.RIP SAW OPERATOR Work Phone: [facility] 06-25-2022 13:30-0500 Systolic blood pressure 122 mm[Hg] Jeremy Noel MIXING TUMBLER OPERATOR.RIP SAW OPERATOR Work Phone: [facility] 05-02-2022 10:35-0400 Body height 166.4 cm Marko Wood MD Work Phone: [facility] 05-02-2022 10:35-0400 Body weight 59.78 kg Marko Wood MD Work Phone: [facility] 05-02-2022 10:35-0400 Diastolic blood pressure 58 mm[Hg] Marko Wood MD Work Phone: [facility] 05-02-2022 10:35-0400 Heart rate 66 /min Marko Wood MD Work Phone: [facility] 05-02-2022 10:35-0400 SaO2% (BldA) [Mass fraction] 99 % Marko Wood MD Work Phone: [facility] 05-02-2022 10:35-0400 Systolic blood pressure 131 mm[Hg] Marko Wood MD Work Phone: [facility] 03-23-2022 12:30-0400 SaO2% (BldA) [Mass fraction] 96 % Artur Pennington MD Work Phone: [facility] 03-23-2022 12:12-0400 Respiratory rate 18 /min Artur Pennington MD Work Phone: [facility] 03-23-2022 11:45-0400 Diastolic blood pressure 74 mm[Hg] Artur Pennington MD Work Phone: [facility] 03-23-2022 11:45-0400 Heart rate 66 /min Artur Pennington MD Work Phone: [facility] 03-23-2022 11:45-0400 Systolic blood pressure 126 mm[Hg] Artur Pennington MD Work Phone: [facility] 03-23-2022 11:34-0400 Body temperature 97 [degF] Artur Pennington MD Work Phone: [facility] 03-23-2022 07:14-0400 Body height 166.4 cm Artur Pennington MD Work Phone: [facility] 03-23-2022 07:14-0400 Body mass index (BMI) [Ratio] 20.98 kg/m2 Artur Pennington MD Work Phone: [facility] 03-23-2022 07:14-0400 Body weight 58.06 kg Artur Pennington MD Work Phone: [facility] 03-17-2022 10:15-0400 Body height 166.4 cm Palma Lovett MIXING TUMBLER OPERATOR.RIP SAW OPERATOR Work Phone: [facility] 03-17-2022 10:15-0400 Body temperature 97.3 [degF] Palma Lovett MIXING TUMBLER OPERATOR.RIP SAW OPERATOR Work Phone: [facility] 03-17-2022 10:15-0400 Body weight 58.06 kg Palma Lovett MIXING TUMBLER OPERATOR.RIP SAW OPERATOR Work Phone: [facility] 03-17-2022 10:15-0400 Diastolic blood pressure 68 mm[Hg] Palma Lovett MIXING TUMBLER OPERATOR.RIP SAW OPERATOR Work Phone: [facility] 03-17-2022 10:15-0400 Heart rate 61 /min Palma Lovett MIXING TUMBLER OPERATOR.RIP SAW OPERATOR Work Phone: [facility] 03-17-2022 10:15-0400 Systolic blood pressure 109 mm[Hg] Palma Loevtt MIXING TUMBLER OPERATOR.RIP SAW OPERATOR Work Phone: [facility] 03-16-2022 13:37-0400 Body temperature 98.8 [degF] Artur Pennington MD Work Phone: [facility] 03-16-2022 13:37-0400 Diastolic blood pressure 57 mm[Hg] Artur Pennington MD Work Phone: [facility] 03-16-2022 13:37-0400 Heart rate 67 /min Artur Pennington MD Work Phone: [facility] 03-16-2022 13:37-0400 Respiratory rate 16 /min Artur Pennington MD Work Phone: [facility] 03-16-2022 13:37-0400 SaO2% (BldA) [Mass fraction] 97 % Artur Pennington MD Work Phone: [facility] 03-16-2022 13:37-0400 Systolic blood pressure 127 mm[Hg] Artur Pennington MD Work Phone: [facility] 03-16-2022 13:37-0400 Body height 166.4 cm Artur Pennington MD Work Phone: [facility] 03-16-2022 13:37-0400 Body mass index (BMI) [Ratio] 21.49 kg/m2 Artur Pennington MD Work Phone: [facility] 03-16-2022 13:37-0400 Body weight 59.48 kg Artur Pennington MD Work Phone: [facility] 12-16-2021 10:24-0400 Body height 166.4 cm Palma Lovett MIXING TUMBLER OPERATOR.RIP SAW OPERATOR Work Phone: [facility] 12-16-2021 10:24-0400 Body temperature 97.11 [degF] Palma Lovett MIXING TUMBLER OPERATOR.RIP SAW OPERATOR Work Phone: [facility] 12-16-2021 10:24-0400 Body weight 58.06 kg Palma Lovett MIXING TUMBLER OPERATOR.RIP SAW OPERATOR Work Phone: [facility] 12-16-2021 10:24-0400 Diastolic blood pressure 62 mm[Hg] Palma Lovett MIXING TUMBLER OPERATOR.RIP SAW OPERATOR Work Phone: [facility] 12-16-2021 10:24-0400 Heart rate 94 /min Palma Lovett MIXING TUMBLER OPERATOR.RIP SAW OPERATOR Work Phone: [facility] 12-16-2021 10:24-0400 Systolic blood pressure 112 mm[Hg] Palma Lovett MIXING TUMBLER OPERATOR.RIP SAW OPERATOR Work Phone: [facility] Encounters Encounter Date Encounter Type Care Provider Facility Start: 06-26-2025 End: 06-26-2025 ambulatory Miah Cottrell Facility:[facility] Start: 06-26-2025 Encounter for other preprocedural examination [facility] Start: 06-18-2025 ambulatory [facility] Facility: [facility] Start: 06-18-2025 End: 06-18-2025 ambulatory [facility] Facility:[facility] Start: 06-11-2025 End: 06-11-[address] Madeline Obrien MD -[facility] Work Phone: Start: 06-11-2025 End: 06-11-2025 ambulatory Miah Cottrell Facility:[facility] Start: 06-09-2025 End: 06-09-[address] Madeline Obrien MD -[facility] Work Phone: Start: 06-09-2025 End: 06-09-[address] Miah Cottrell DO Work Phone: -[facility] Start: 06-01-2025 End: 06-01-[address] Madeline Obrien MD -[facility] Work Phone: Start: 06-01-2025 End: 06-01-2025 ambulatory Madeline Obrien Facility:[facility] Start: 05-26-2025 End: 05-26-[address] Miah Cottrell DO Work Phone: -Laboratory Specimen Start: 05-26-2025 End: 05-26-[address] Madeline Obrien MD -[facility]imen Work Phone: Start: 05-26-2025 End: 05-26-[address] Madeline Obrien MD -[facility] Work Phone: Start: 05-26-2025 End: 05-26-[address] Miah Cottrell DO Work Phone: -[facility] Start: 05-26-2025 End: 05-26-2025 ambulatory Madeline Obrien Facility:[facility] Start: 05-15-2025 ambulatory MIAH De La Cruz ity:[facility] Start: 2025 End: 2025 Office outpatient visit 15 minutes Marko Wood MD Work Phone: Neurology Comment on above: Essential tremor; Cervicalgia Start: 2025 End: 2025 ambulatory MIAH COTTRELL Facility:[facility] Start: 03-24-2025 End: 03-24-2025 ambulatory MIAH COTTRELL Facility:[facility] Start: 03-24-2025 Encounter for gynecological examination (general) (routine) without abnormal findings ISABELA MURPHY [facility] Start: 03-17-2025 End: 03-17-2025 Patient encounter procedure Miah Cottrell DO Work Phone: [facility] [place] Comment on above: Essential hypertensi on (Primary Dx); 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); Tobacco abuse; Fatigue, unspecified type; Vitamin B12 deficiency; Chronic neck pain; Osteoarthritis of spine with radiculopathy, cervical region; DDD (degenerative disc disease), cervical Start: 03-17-2025 End: 03-17-2025 ambulatory MIAH COTTRELL Facility:[facility] Start: 03-11-2025 End: 03-12-2025 ambulatory Palma Lovett APRN.CNP Work Phone: Rheumatology Comment on above: [employer] Start: 02-19-2025 End: 02-19-2025 Telephone encounter Palma Lovett APRN.IRINEO Work Phone: Rheumatology Comment on above: 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 Start: 02-18-2025 End: 02-18-2025 Follow-up encounter Dorothy Pisano APRN.IRINEO Work Phone: Pain Management Start: 02-18-2025 End: 02-19-2025 Telephone encounter Lewis Taylor MD Work Phone: Pain Management Comment on above: Results (Cervical MR I) Start: 02-17-2025 End: 02-17-2025 E-mail encounter from caregiver King Razo [facility] Start: 02-17-2025 End: 02-17-2025 ambulatory King Razo [facility] Comment on above: [employer] coverage has been approved but copay is high Start: 02-17-2025 End: 02-17-2025 Subsequent hospital visit by physician Mri [facility] (I-Stat/1.5t) Work Phone: Radiology Comment on above: Spinal stenosis of c ervical region [M48.02] Start: 02-16-2025 End: 02-16-2025 Refill Miah Allison Cottrell DO Work Phone: [facility] [place] Comment on above: Refill Request Start: 02-13-2025 End: 02-13-2025 Patient encounter procedure Dorothy Pisano APRN.CNP Work Phone: Pain Management Comment on above: Spinal stenosis of c ervical region (Primary Dx); Neck pain; Myalgia Start: 02-13-2025 End: 02-13-2025 ambulatory MIAH COTTRELL Facility:[facility] Start: 02-11-2025 End: 02-11-2025 ambulatory King Razo [facility] Start: 02-11-2025 End: 02-11-2025 Patient encounter procedure King Razo [facility] Comment on above: SPP Inflammatory [...] Start: 02-06-2025 End: 02-06-2025 ambulatory MIAH COTTRELL Facility:[facility] Start: 02-06-2025 End: 02-06-2025 Subsequent hospital visit by physician Yennifer [facility] Work Phone: Radiology Comment on above: Neck pain [M54.2] Start: 02-06-2025 End: 02-06-2025 Patient encounter procedure Palma Lovett APRN.RIP SAW OPERATOR Work Phone: Rheumatology Comment on above: PMR (polymyalgia rhe umatica) (HCC) (Primary Dx); 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); Osteoporosis, postmenopausal; PUD (peptic ulcer disease); Encounter for long-term (current) use of medications; Neck pain Start: 02-06-2025 End: 02-06-2025 ambulatory MIAH L COTTRELL Facility:[facility] Start: 01-21-2025 End: 03-23-2025 Follow-up encounter Magdalene Bradford MD Work Phone: Rheumatology Start: 01-20-2025 End: 01-20-2025 ambulatory MIAH L COTTRELL Facility:[facility] Start: 01-20-2025 End: 01-20-2025 Telephone encounter Magdalene Bradford MD Work Phone: Rheumatology Start: 12-28-2024 End: 02-27-2025 Follow-up encounter Magdalene Bradford MD Work Phone: Rheumatology Start: 12-27-2024 End: 12-27-2024 ambulatory MIAH L COTTRELL Facility:[facility] Start: 11-21-2024 End: 11-21-2024 ambulatory MIAH L COTTRELL Facility:[facility] Start: 11-21-2024 End: 11-21-2024 Office outpatient visit 40 minutes Wily Abarca APRN.RIP SAW OPERATOR Work Phone: [facility] Comment on above: Essential hypertensi on (Primary Dx); 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); Dupuytren's contracture of right hand; Chronic midline low back pain without sciatica; Right wrist pain; Tobacco abuse; Osteoporosis, postmenopausal Start: 11-20-2024 End: 01-20-2025 Follow-up encounter Wily Abarca APRN.CNP Work Phone: [facility] Start: 11-19-2024 End: 11-19-2024 ambulatory MIAH L COTTRELL Facility:[facility] Start: 11-19-2024 End: 11-19-2024 Subsequent hospital visit by physician [facility] Comment on above: Encounter for screen ing mammogram for breast cancer [Z12.31] Start: 11-10-2024 End: 11-10-2024 Refill Miah L Cottrell DO Work Phone: [facility] [place] Comment on above: Refill Request Start: 09-22-2024 End: 09-22-2024 Refill Magdalene Bradford MD Work Phone: [facility] [place] Comment on above: Refill Request; Medi cation Request Start: 08-14-2024 End: 08-15-2024 Refill Miah L Cottrell DO Work Phone: [facility] [place] Comment on above: Refill Request Start: 08-05-2024 End: 08-05-2024 ambulatory MIAH L COTTRELL Facility:[facility] Start: 08-05-2024 End: 08-05-2024 Nursing evaluation of patient and report Nurse Lauren [facility] Work Phone: Rheumatology Comment on above: Postmenopausal osteo porosis (Primary Dx) Start: 08-04-2024 End: 08-04-2024 Telephone encounter Magdalene Bradford MD Work Phone: Rheumatology Start: 07-28-2024 End: 07-28-2024 Refill Magdalene Bradford MD Work Phone: Rheumatology Comment on above: Refill Request Start: 07-09-2024 End: 07-11-2024 ambulatory [facility] Neurology Comment on above: A Message from [facility] Start: 07-09-2024 End: 07-11-2024 E-mail encounter from caregiver [facility] Provider Neurology Start: 06-23-2024 End: 06-23-2024 ambulatory MIAH L COTTRELL Facility:[facility] Start: 05-23-2024 End: 05-23-2024 ambulatory MIAH L COTTRELL Facility:[facility] Start: 05-23-2024 End: 05-23-2024 Office outpatient visit 40 minutes Wily Abarca APRN.CNP Work Phone: [facility] [place] Comment on above: Essential hypertensi on (Primary Dx); Ganglion cyst; Hornet sting, accidental or unintentional, initial encounter; Diarrhea due to malabsorption Start: 05-23-2024 End: 05-23-2024 ambulatory MIAH COTTRELL Facility:[facility] Start: 05-13-2024 End: 05-13-2024 Refill Miah Cottrell DO Work Phone: [facility] [place] Comment on above: Refill Request Start: 2024 End: 2024 Office outpatient visit 15 minutes Marko Wood MD Work Phone: Neurology Comment on above: Essential tremor Start: 04-01-2024 ambulatory Magdalene Bradford MD Work Phone: Rheumatology Comment on above: Medicine Start: 03-31-2024 End: 03-31-2024 Patient encounter procedure Ady Mackenzie MD Work Phone: [facility] Comment on above: Allergic contact leann matitis, unspecified trigger (Primary Dx) Start: 03-26-2024 End: 03-26-2024 Patient encounter procedure Carly Ramirez APRN.RIP SAW OPERATOR Work Phone: [facility] Comment on above: Rash (Primary Dx) Start: 03-18-2024 End: 03-18-2024 ambulatory Magdalene Bradford MD Work Phone: Rheumatology Comment on above: PMR (polymyalgia rhe umatica) (HCC) (Primary Dx); 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; Encounter for long-term (current) use of medications; 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); Osteoporosis, postmenopausal; PUD (peptic ulcer disease) Start: 03-18-2024 End: 03-18-2024 Telemedicine consultation with patient Magdalene Bradford MD Work Phone: Rheumatology Start: 02-28-2024 Telephone encounter Magdalene Nair MD Work Phone: Internal Medicine [place] Comment on above: Medication Problem Order for BP monitor Start: 02-18-2024 End: 02-18-2024 Patient encounter procedure Ronna Quiroz MIXING TUMBLER OPERATOR.RIP SAW OPERATOR Work Phone: Family Medicine [place] Comment on [...] Encounter for long-term (current) use of medications; 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 Essential hypertensi on (Primary Dx); Carotid atherosclerosis, bilateral Start: 01-11-2024 Telephone encounter Miah esqueda DO Work Phone: [facility] [place] Comment on above: Results Start: 01-09-2024 End: 01-09-2024 Patient encounter procedure Ronna Quiroz APRN.CNP Work Phone: [facility] [place] Comment on above: Essential hypertensi on (Primary Dx) Start: 01-08-2024 End: 01-08-2024 Subsequent hospital visit by physician Priti [facility] Work Phone: Cat Scan Comment on above: Nodule of lower lobe of left lung [R91.1] Start: 01-08-2024 Telephone encounter Miah esqueda DO Work Phone: [facility] [place] Comment on above: Results Start: 12-17-2023 End: 12-17-2023 Patient encounter procedure Miah Cottrell DO Work Phone: [facility] [place] Comment on above: Nodule of lower lobe of left lung (Primary Dx); Carotid atherosclerosis, bilateral; Dupuytren's contracture of right hand; Hyperlipidemia, mixed; Fatigue, unspecified type; Thyroid nodule; Iron deficiency; Hyperglycemia; Vitamin B12 deficiency; Essential hypertension; 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); Osteoporosis, postmenopausal; Tobacco use; Vitamin D deficiency Start: 12-01-2023 Refill Palma Lovett APRN.RIP SAW OPERATOR Work Phone: Rheumatology Comment on above: Refill Request Start: 10-31-2023 Telephone encounter Miah esqueda DO Work Phone: [facility] Comment on above: Results Start: 10-25-2023 End: 10-25-2023 ambulatory [facility] Work Phone: Start: 10-25-2023 End: 10-25-2023 Patient encounter procedure [facility]-Cat Scan, [facility] Work Phone: Start: 10-10-2023 Documentation procedure Mammog yuliana Coordinator [facility] Start: 10-10-2023 Letter encounter Mammography Coordinator [facility] Department Start: 10-10-2023 Telephone encounter Ronna ferrari MIXING TUMBLER OPERATOR.RIP SAW OPERATOR Work Phone: [facility] Start: 10-08-2023 End: 10-08-2023 Subsequent hospital visit by physician Screen Mammo [facility] Mamm[facility] Comment on above: Screening mammogram for breast cancer [Z12.31] Start: 10-05-2023 End: 10-05-2023 Patient encounter procedure Palma Lovett APRN.RIP SAW OPERATOR Work Phone: Rheumatology Comment on above: PMR (polymyalgia rhe umatica) (HCC) (Primary Dx); 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); Osteoporosis, postmenopausal; Encounter for long-term (current) use of medications Start: 07-23-2023 End: 07-23-2023 Nursing evaluation of patient and report Nurse [place] [facility] Work Phone: Rheumatology Comment on above: Osteoporosis, postme nopausal (Primary Dx) Start: 07-16-2023 Telephone encounter Palma lewis APRN.RIP SAW OPERATOR Work Phone: Rheumatology Comment on above: 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 Start: 06-15-2023 End: 06-15-2023 Patient encounter procedure Miah Cottrell DO Work Phone: [facility] Comment on above: Essential hypertensi on (Primary [...] FNA ) Start: 04-30-2023 End: 04-30-2023 ambulatory [facility] Work Phone: Start: 04-30-2023 End: 04-30-2023 Patient encounter procedure [facility]-Laboratory, Specimen Work Phone: Start: 04-30-2023 End: 04-30-2023 Patient encounter procedure Will Ruiz MD Work Phone: General Surgery Comment on above: Multinodular goiter (Primary Dx) Start: 04-19-2023 End: 04-19-2023 Office outpatient visit 15 minutes Marko Wood MD Work Phone: Neurology Comment on above: Essential tremor Start: 04-12-2023 Telephone encounter Miah esqueda DO Work Phone: [facility] Comment on above: Results; Appointment Start: 03-29-2023 Refill Miah ferrari DO Work Phone: [facility] Comment on above: Refill Request Start: 03-14-2023 Telephone encounter Miah esqueda DO Work Phone: [facility] Comment on above: Results Start: 03-12-2023 End: 03-12-2023 Subsequent hospital visit by physician [facility] Work Phone: Radiology Comment on above: Thyroid nodule [E04. 1] Start: 03-05-2023 Telephone encounter Janie elam PA-C Work Phone: Rheumatology Comment on above: Results Start: 03-02-2023 Telephone encounter Janie Carter sser PA-C Work Phone: [facility] [place] Comment on above: Patient Question Start: 02-26-2023 End: 02-26-2023 Subsequent hospital visit by physician Bone Density [facility] Work Phone: Radiology Comment on above: Osteoporosis, postme nopausal [M81.0] Start: 02-07-2023 Get Medical Advice Palma Lovett MIXING TUMBLER OPERATOR.RIP SAW OPERATOR Work Phone: Rheumatology Comment on above: refill Start: 02-05-2023 Telephone encounter Janie Carter marialuisa PA-C Work Phone: [facility] [place] Comment on above: Appointment Start: 01-24-2023 ambulatory Palam Lovett MIXING TUMBLER OPERATOR.RIP SAW OPERATOR Work Phone: Rheumatology Comment on above: Test Results Start: 01-19-2023 End: 01-20-2023 ambulatory MIAH COTTRELL Facility:[facility] Start: 01-19-2023 End: 01-19-2023 Patient encounter procedure Janie Massey PA-C Work Phone: Rheumatology Comment on above: PMR (polymyalgia rhe umatica) (HCC) (Primary Dx); 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); Osteoporosis, postmenopausal; Encounter for long-term (current) use of medications; 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 Start: 12-21-2022 Telephone encounter Magdalene Nair MD Work Phone: Rheumatology Comment on above: Medication Request Refill Request Start: 11-21-2022 ambulatory Chelsea Bedoya [facility] [place] Comment on above: Population Health [facility] (HCC GAP) Start: 11-01-2022 ambulatory Miah Norman guillaume DO Work Phone: Family Medicine [place] Comment on above: Test Result Question Start: 11-01-2022 End: 11-01-2022 Subsequent hospital visit by physician Diagnostic Mammo [facility] Mamm[facility] Start: 10-03-2022 Telephone encounter Shante Vanessa MD Work Phone: Mammography Comment on above: Mammogram Result Toribio l Back Start: 10-02-2022 Documentation procedure Mammog yuliana Coordinator [facility] Start: 10-02-2022 Letter encounter Mammography Coordinator [facility] Department Start: 10-02-2022 End: 10-02-2022 Subsequent hospital visit by physician Screen Mammo [facility] Mammogram Start: 07-31-2022 End: 07-31-[address] [facility] Work Phone: Hematology/Oncology Comment on above: Osteoporosis, postme nopausal (Primary Dx) Start: 07-24-2022 End: 07-24-2022 Patient encounter procedure Magdalene Bradford MD Work Phone: Rheumatology Comment on above: PMR (polymyalgia rhe umatica) (HCC) (Primary Dx); 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); Osteoporosis, postmenopausal; Encounter for long-term (current) use of medications Start: 07-07-2022 End: 07-07-2022 Patient encounter procedure Wily Abarca APRN.RIP SAW OPERATOR Work Phone: [facility] [place] Comment on above: Pain of left lower e xtremity (Primary Dx); Hematoma of left lower leg; Wound of left lower extremity, subsequent encounter; Injury of left lower extremity, subsequent encounter Start: 07-03-2022 End: 07-03-2022 Subsequent hospital visit by physician Yennifer [facility] Work Phone: Radiology Comment on above: Injury of left lower extremity, subsequent encounter [S89.92XD] Start: 07-03-2022 End: 07-03-2022 Patient encounter procedure Wily Abarca APRN.RIP SAW OPERATOR Work Phone: [facility] Medicine [place] Comment on above: Injury of left lower extremity, subsequent encounter (Primary Dx); Wound of left lower extremity, subsequent encounter; Pain of left lower extremity; Hematoma of left lower leg Start: 06-25-2022 End: 06-25-2022 Patient encounter procedure Jeremy Cohen APRN.RIP SAW OPERATOR Work Phone: [facility] Comment on above: Skin infection (Prim marely Dx); Need for tetanus booster Start: 05-22-2022 End: 05-22-2022 Subsequent hospital visit by physician Yennifer [facility] Work Phone: Radiology Comment on above: PMR (polymyalgia rhe umatica) ([facility]) [M35.3] Start: 05-22-2022 End: 05-22-2022 ambulatory Treatment Rm [address] [facility] Work Phone: Hematology/Oncology Comment on above: Encounter for inject ion education (Primary Dx) Start: 05-17-2022 ambulatory Palma Lovett MIXING TUMBLER OPERATOR.RIP SAW OPERATOR Work Phone: Rheumatology Comment on above: Injections Start: 05-08-2022 ambulatory Palma Lovett MIXING TUMBLER OPERATOR.RIP SAW OPERATOR Work Phone: Rheumatology Comment on above: Lab Start: 05-05-2022 ambulatory Palma Lovett MIXING TUMBLER OPERATOR.RIP SAW OPERATOR Work Phone: Rheumatology Comment on above: Pain Start: 05-02-2022 End: 05-02-2022 Patient encounter procedure Marko Wood MD Work Phone: Neurology Comment on above: Essential tremor (Pr imary Dx) Start: 04-18-2022 ambulatory Palma Lovett APRN.RIP SAW OPERATOR Work Phone: Rheumatology Comment on above: prednisone Start: 04-04-2022 ambulatory Palma Lovett APRN.RIP SAW OPERATOR Work Phone: Rheumatology Comment on above: Prednisone & Prolia Start: 03-27-2022 End: 03-27-2022 Patient encounter procedure [facility]-Cat Scan, [facility] Start: 03-23-2022 End: 03-23-2022 Subsequent hospital visit by physician Artur Pennington MD Work Phone: [facility] Surgery Comment on above: Traumatic arthritis of right ankle (Primary Dx) Start: 03-21-2022 Telephone encounter Palma lewis APRN.RIP SAW OPERATOR Work Phone: Rheumatology Comment on above: Results Start: 03-17-2022 End: 03-17-2022 Patient encounter procedure Palma Lovett APRN.RIP SAW OPERATOR Work Phone: Rheumatology Comment on above: PMR (polymyalgia rhe umatica) (HCC) (Primary Dx); 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); Osteoporosis, postmenopausal; Encounter for long-term (current) use of medications Start: 03-16-2022 End: 03-16-2022 Subsequent hospital visit by physician Artur Pennington MD Work Phone: [facility] Pre-Admit Testing Comment on above: Arrived Start: 03-06-2022 Refill Palma Lovett APRN.RIP SAW OPERATOR Work Phone: Rheumatology Comment on above: Refill Request Start: 02-06-2022 ambulatory PALMA LOVETT Facility: [facility] Start: 02-02-2022 Refill Miah ferrari DO Work Phone: [facility] Medicine [place] Comment on above: Refill Request Start: 01-03-2022 Telephone encounter Miah esqueda DO Work Phone: Family Medicine [place] Comment on above: Results Start: 01-02-2022 End: 01-02-2022 Subsequent hospital visit by physician Priti [facility] ([facility] Work Phone: Cat Scan Comment on above: New daily persistent headache [G44.52] Start: 12-30-2021 End: 12-30-2021 Subsequent hospital visit by physician Marielos BRAY Work Phone: [facility] Radiology Comment on above: Right ankle pain, un specified chronicity Start: 12-26-2021 Telephone encounter Miah esqueda DO Work Phone: [facility] [place] Comment on above: Medication Question Start: 12-19-2021 Telephone encounter Palma lewis APRN.RIP SAW OPERATOR Work Phone: Rheumatology Comment on above: Other Start: 12-16-2021 End: 12-16-2021 Patient encounter procedure Palma Lovett APRN.RIP SAW OPERATOR Work Phone: Rheumatology Comment on above: PMR (polymyalgia rhe umatica) (HCC) (Primary Dx); 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); Osteoporosis, postmenopausal; Encounter for long-term (current) use of medications; Neck pain Neck pain (Primary D x) Start: 12-16-2021 End: 12-16-2021 Subsequent hospital visit by physician Yennifer [facility] Work Phone: Radiology Comment on above: Neck pain [M54.2] Start: 10-31-2019 End: 10-31-2019 Subsequent hospital visit by physician [facility] Comment on above: Right ankle pain, un specified chronicity; History of ankle fusion; Traumatic arthritis of right ankle Start: 02-12-2009 End: 11-27-2011 Patient encounter status Miah Cottrell DO Work Phone: [facility] Start: 10-29-2007 End: 10-19-2011 Patient encounter status Miah Cottrell DO Work Phone: [facility] Work Phone: Procedures Date Procedure Procedure Detail [...] tibia & fibula 2 views Wily Abarca MIXING TUMBLER OPERATOR.RIP SAW OPERATOR Work Phone: Start: 05-22-2022 Radiologic exam chest 2 views Palma Lovett APRN.RIP SAW OPERATOR Work Phone: Start: 04-28-2022 Adult depression screening [...] cervical 4 or 5 views Palma Lovett APRN.RIP SAW OPERATOR Work Phone: Start: 09-26-2021 Mammography Palma Lovett MIXING TUMBLER OPERATOR.RIP SAW OPERATOR Work Phone: Start: 05-09-2021 Colonoscopy Palma Lovett MIXING TUMBLER OPERATOR.RIP SAW OPERATOR Work Phone: Start: 04-27-2021 Adult depression screening assessment Palma Lovett MIXING TUMBLER OPERATOR.RIP SAW OPERATOR Work Phone: Start: 10-31-2019 Radex ankle complete minimum 3 views Artur Chandler [place] Work Phone: Start: 08-15-2019 Lipid 1996 panel - Serum or Plasma Will Ruiz MD Work Phone: H/O: hysterectomy History of par tial hysterectomy History of appendectomy History of append ectomy Plan of Treatment Date Care Activity Detail Author Start: 06-25-2032 Urine microalbumin profile [facility] Start: 05-09-[address] [facility] Start: 05-09-2031 COLORECTAL CANCER SCREENING COLORECTAL CANCER SCREENING [facility] Start: 05-09-2031 Screening for malignant neoplasm of colon [facility] Start: 12-16-2028 Lipid panel Lipid Screening [facility] Start: 12-16-2026 Diabetes Screening Diabetes Screening [facility] Start: 10-21-2026 Diabetes Screening Diabetes Screening [facility] Start: 03-17-2026 Annual PCP Team Chronic Disease Visit Annual PCP Team Chronic Disease Visit [facility] Start: 03-12-2026 DIABETES SCREEN DIABETES SCREEN [facility] Start: 03-12-2026 Diabetes Screening Diabetes Screening [facility] Start: 02-23-2026 End: 02-23-2026 Patient encounter procedure 02/23/2026 1:00 PM EDT Office Visit Rheumatology [address] [place] [address] Palma Lovett, MIXING TUMBLER OPERATOR.RIP SAW OPERATOR [address] [place] [address] 6mo prolia Rheumatology Comment on above: 6mo prolia Start: 11-23-2025 End: 11-23-2025 Patient encounter procedure 11/23/2025 11:10 AM EDT Appointment Mammogram [address] [place], [place] [id number] Encounter for gynecological examination (general) (routine) without abnormal findings [Z01.419]; Encounter for screening mammogram for breast cancer [Z12.31] Mammogram Comment on above: Encounter for gynecological examination (general) (routine) without abnormal findings [Z01.419]; Encounter for screening mammogram for breast cancer [Z12.31] Start: 11-21-2025 Annual PCP Team Chronic Disease Visit Annual PCP Team Chronic Disease Visit [facility] Start: 11-21-2025 BP Controlled (<130/80) BP Controlled (<130/80) [facility] Start: 11-21-2025 Covid-19 Vaccine () Covid-19 Vaccine () [facility] Comment on above: Postponed from 04/20/2024 (Declined at t his time) Start: 11-19-2025 Screening for malignant neoplasm of breast Mammogram Screening [facility] Start: 09-17-2025 End: 09-17-2025 Patient encounter procedure [facility] [place] Comment on above: 6 MTH FU Start: 08-26-2025 End: 08-26-2025 Patient encounter procedure 08/26/2025 1:00 PM EST Office Visit Rheumatology [address] [place] [address] Magdalene Bradford MD [address] [place] [address] Rheumatology Start: 08-03-2025 End: 08-03-2025 Patient encounter procedure Rheumatology Comment on above: prolia injection Start: 07-09-2025 End: 10-08-2025 25-hydroxyvitamin D3 [Mass/volume] in Serum or Plasma VITAMIN D 25 HYDROXY Lab Routine Osteoporosis, postmenopausal Encounter for long-term (current) use of medications Expected: 07/09/2025 (Approximate), Expires: 10/08/[address] [facility] Comment on above: Expected: 07/09/2025 (Approximate), Expi res: 10/08/2025 Start: 07-09-2025 End: 02-05-2026 Alanine aminotransferase [Enzymatic activity/volume] in Serum or Plasma ALANINE AMINOTRANSFERASE / SGPT Lab Routine PMR (polymyalgia rheumatica) (HCC) Encounter for long-term (current) use of medications Expected: 07/09/2025 (Approximate), Expires: 02/05/[address] [facility] Comment on above: Expected: 07/09/2025 (Approximate), Expi res: 02/05/2026 Start: 07-09-2025 End: 02-05-2026 Aspartate aminotransferase [Enzymatic activity/volume] in Serum or Plasma ASPARTATE AMINOTRANSFERASE/SGOT Lab Routine PMR (polymyalgia rheumatica) ([facility]) Encounter for long-term (current) use of medications Expected: 07/09/2025 (Approximate), Expires: 02/05/[address] [facility] Comment on above: Expected: 07/09/2025 (Approximate), Expi res: 02/05/2026 Start: 07-09-2025 End: 02-05-2026 C reactive protein [Mass/volume] in Serum or Plasma C-REACTIVE PROTEIN Lab Routine PMR (polymyalgia rheumatica) ([facility]) Encounter for long-term (current) use of medications Expected: 07/09/2025 (Approximate), Expires: 02/05/[address] [facility] Comment on above: Expected: 07/09/2025 (Approximate), Expi res: 02/05/2026 Start: 07-09-2025 End: 10-08-2025 Calcium [Mass/volume] in Serum or Plasma CALCIUM, TOTAL Lab Routine Osteoporosis, postmenopausal Encounter for long-term (current) use of medications Expected: 07/09/2025 (Approximate), Expires: 10/08/[address] [facility] Comment on above: Expected: 07/09/2025 (Approximate), Expi res: 10/08/2025 Start: 07-09-2025 End: 02-05-2026 CBC W Auto Differential panel - Blood COMPLETE BLOOD COUNT AND DIFFERENTIAL Lab Routine PMR (polymyalgia rheumatica) ([facility]) Encounter for long-term (current) use of medications Expected: 07/09/2025 (Approximate), Expires: 02/05/2026 [facility] Work Phone: Comment on above: Expected: 07/09/2025 (Approximate), Expi res: 02/05/2026 Start: 07-09-2025 End: 02-05-2026 Creatinine and Glomerular filtration rate.predicted panel - Serum, Plasma or Blood CREATININE BLD Lab Routine PMR (polymyalgia rheumatica) ([facility]) Encounter for long-term (current) use of medications Expected: 07/09/2025 (Approximate), Expires: 02/05/[address] [facility] Comment on above: Expected: 07/09/2025 (Approximate), Expi res: 02/05/2026 Start: 07-09-2025 End: 02-05-2026 Erythrocyte sedimentation rate SEDIMENTATION RATE, WESTERGREN Lab Routine PMR (polymyalgia rheumatica) (HCC) Encounter for long-term (current) use of medications Expected: 07/09/2025 (Approximate), Expires: 02/05/[address] [facility] Comment on above: Expected: 07/09/2025 (Approximate), Expi res: 02/05/2026 Start: 07-09-2025 End: 07-09-2025 ambulatory 07/09/2025 11:00 AM EST Results Only [facility] [address] [place] [address] [facility] Start: 06-18-2025 Transurethral fulguration of bladder Cysto,Biopsy,Fulguration ,Bladder Tumor (Not Applicable) [facility] Start: 06-18-2025 Patient discharge [facility] Start: 06-18-2025 Non-patient / Non-visit Non-patient / Non-visit -[facility] Start: 06-18-2025 End: 06-18-2025 Admission to same day surgery center Departed [facility] -[facility] Start: 06-11-2025 End: 06-11-2025 Patient encounter procedure Departed Physician/Provider Office Visit -[facility] Work Phone: Start: 06-09-2025 End: 06-09-2025 Patient encounter procedure Gross hematuria -[facility] Work Phone: Start: 05-26-2025 US scan of bladder [facility] Start: 05-23-2025 Annual PCP Team Chronic Disease Visit Annual PCP Team Chronic Disease Visit [facility] Start: 05-23-2025 BP Controlled (<130/80) BP Controlled (<130/80) [facility] Start: 05-15-2025 End: 05-15-2025 Patient encounter procedure 05/15/2025 1:40 PM EDT Appointment Radiology [address] [place] [id number] Osteoporosis, 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] Radiology Comment on above: Osteoporosis, 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] Start: 04-20-[address] [facility] Start: 2025 BP Controlled (<130/80) BP Controlled (<130/80) [facility] Start: 2025 RSV Vaccine (1 - 1-dose 75+ series) RSV Vaccine (1 - 1-dose 75+ series) [facility] Start: 2025 End: 2025 Patient encounter procedure 2025 1:00 PM EDT Office Visit Neurology [address] [id number] Marko Wood MD [address] [address] Essential tremor [G25.0] Neurology Comment on above: Essential tremor [G25.0] Start: 03-26-2025 Annual PCP Team Chronic Disease Visit Annual PCP Team Chronic Disease Visit [facility] [facility] Start: 03-26-2025 BP Controlled (<130/80) BP Controlled (<130/80) [facility] Start: 03-24-2025 End: 03-24-2025 Patient encounter procedure 03/24/2025 11:30 AM EDT Office Visit OB/Gynecology [address] [place] [address] Isabela Murphy APRN.RIP SAW OPERATOR [address] [place] [address] annual OB/Gynecology Comment on above: annual Start: 03-17-2025 End: 03-17-2025 Patient encounter procedure 03/17/2025 11:00 AM EDT Office Visit Family [facility] [address] [place] [address] Miah Cottrell DO [address] [place] [address] 3 month follow up Family [facility] Comment on above: 3 month follow up Start: 03-10-2025 End: 03-10-2025 Patient encounter procedure 03/10/2025 11:00 AM EDT Office Visit Family Medicine [place] [address] [place] [address] Miah Cottrell DO [address] [place] [address] 3 month follow up [facility] [place] Comment on above: 3 month follow up Start: 02-26-2025 Screening for osteoporosis Bone Density Screening [facility] Start: 02-17-2025 Annual PCP Team Chronic Disease Visit Annual PCP Team Chronic Disease Visit [facility] Start: 02-17-2025 BP Controlled (<130/80) BP Controlled (<130/80) [facility] Start: 02-17-2025 End: 02-17-2025 Patient encounter procedure 02/17/2025 2:00 PM EDT Appointment Radiology [address] [place] [id number] Spinal stenosis of cervical region [M48.02 Radiology Comment on above: Spinal stenosis of cervical region [M48. 02 Start: 02-16-2025 Influenza vaccination Influenza Vaccine (#1) [facility] Comment on above: Postponed from 04/20/2024 (Declined at t his time) Start: 02-13-2025 End: 02-13-2025 Patient encounter procedure 02/13/2025 1:00 PM EDT Office Visit Pain Management [address] [address] Dorothy Pisano, MIXING TUMBLER OPERATOR.RIP SAW OPERATOR [address] [place] [address] Neck pain [M54.2] Pain Management Comment on above: Neck pain [M54.2] Start: 02-06-2025 End: 05-08-2025 BLOOD TB SCREEN [facility] Comment on above: Expected: 02/06/2025 (Approximate), Expi res: 05/08/2025 Start: 02-06-2025 BP Controlled (<130/80) BP Controlled (<130/80) [facility] Start: 02-06-2025 End: 05-08-2025 C reactive protein [Mass/volume] in Serum or Plasma [facility] Comment on above: Expected: 02/06/2025 (Approximate), Expi res: 05/08/2025 Start: 02-06-2025 End: 05-08-2025 Chronic hepatitis differentiation between hepatitis B and C virus panel - Serum or Plasma [facility] Comment on above: Expected: 02/06/2025 (Approximate), Expi res: 05/08/2025 Start: 02-06-2025 End: 05-08-2025 Erythrocyte sedimentation rate [facility] Comment on above: Expected: 02/06/2025 (Approximate), Expi res: 05/08/2025 Start: 02-06-2025 End: 02-06-2025 Nursing evaluation of patient and report 02/06/2025 1:00 PM EDT Nurse Visit Rheumatology [address] [place] [address] [place], Nurse Gladysu [facility] [id number] [place] [address] [facility] Comment on above: [facility] Start: 01-27-2025 Annual PCP Team Chronic Disease Visit Annual PCP Team Chronic Disease Visit [facility] Start: 01-27-2025 BP Controlled (<130/80) BP Controlled (<130/80) [facility] Start: 01-20-2025 End: 04-21-2025 25-hydroxyvitamin D3 [Mass/volume] in Serum or Plasma [facility] Comment on above: Expected: 01/20/2025, Expires: Start: 01-20-2025 End: 04-21-2025 Calcium [Mass/volume] in Serum or Plasma [facility] Work Phone: Comment on above: Expected: 01/20/2025, Expires: Start: 01-08-2025 Annual PCP Team Chronic Disease Visit Annual PCP Team Chronic Disease Visit [facility] Start: 01-08-2025 RSV Vaccine (1 - 1-dose 60+ series) RSV Vaccine (1 - 1-dose 60+ series) [facility] Comment on above: Postponed from 2010 (Declined at t his time) Start: 01-07-2025 Screening for malignant neoplasm of lung Lung Cancer Screening [facility] Start: 12-16-2024 Annual PCP Team Chronic Disease Visit Annual PCP Team Chronic Disease Visit [facility] Start: 12-16-2024 BP Controlled (<130/80) BP Controlled (<130/80) [facility] Start: 11-21-2024 End: 11-21-2024 Patient encounter procedure 11/21/2024 12:40 PM EDT Office Visit Family Joon [facility]gs [address] [place], [place] [address] Wily Abarca, MIXING TUMBLER OPERATOR.RIP SAW OPERATOR [address] [place], [place] [address] 6 month follow up Family Joon [facility] Comment on above: 6 month follow up Start: 10-08-2024 Screening for malignant neoplasm of breast Mammogram Screening [facility] Start: 08-20-2024 Advance Directive Discussion Advance Directive Discussion [facility] Start: 08-15-2024 Lipid 1996 panel - Serum or Plasma Lipid Screening [facility] Start: 08-15-2024 Lipid panel Lipid Screening [facility] Start: 08-15-2024 LIPID SCREEN LIPID SCREEN [facility] Start: 08-05-2024 End: 08-05-2024 Nursing evaluation of patient and report 08/05/2024 2:00 PM EST Nurse Visit Rheumatology [address] [place] [address] [place], Nurse Lauren [facility] [address] [place] [address] prolia injection Rheumatology Comment on above: prolia injection Start: 08-04-2024 End: 08-04-2024 Patient encounter procedure 08/04/2024 3:00 PM EST Office Visit Rheumatology [address] [place] [address] Palma Lovett, MIXING TUMBLER OPERATOR.RIP SAW OPERATOR [address] [place] [address] prolia injection Rheumatology Comment on above: prolia injection Start: 07-23-2024 BP Controlled (<130/80) BP Controlled (<130/80) [facility] Start: 06-20-2024 End: 01-27-2025 25-hydroxyvitamin D3 [Mass/volume] in Serum or Plasma VITAMIN D 25 HYDROXY Lab Routine Osteoporosis, postmenopausal Encounter for long-term (current) use of medications Expected: 06/20/2024, Expires: 01/27/2025 [facility] Work Phone: Comment on above: Expected: 06/20/2024, Expires: Start: 06-20-2024 End: 01-27-2025 Calcium [Mass/volume] in Serum or Plasma CALCIUM, TOTAL Lab Routine Osteoporosis, postmenopausal Encounter for long-term (current) use of medications Expected: 06/20/2024, Expires: 01/27/[address] [facility] Comment on above: Expected: 06/20/2024, Expires: Start: 06-20-2024 End: 01-27-2025 CREATININE BLD CREATININE BLD Lab Routine Osteoporosis, postmenopausal Encounter for long-term (current) use of medications Expected: 06/20/2024, Expires: 01/27/[address] [facility] Comment on above: Expected: 06/20/2024, Expires: Start: 06-20-2024 End: 06-20-2024 ambulatory 06/20/2024 9:00 AM EDT Results Only [facility] [address] [place] [address] [facility] Draw Station Start: 06-15-2024 Annual PCP Team Chronic Disease Visit Annual PCP Team Chronic Disease Visit [facility] Start: 06-15-2024 BP Controlled (<130/80) BP Controlled (<130/80) [facility] Start: 06-15-2024 Covid-19 Vaccine () Covid-19 Vaccine () [facility] Comment on above: Postponed from 04/20/2023 (Declined at t his time) Start: 05-23-2024 End: 05-23-2024 Patient encounter procedure [facility] [place] Comment on above: 6 month f/up Start: 05-07-2024 BP Controlled (<130/80) BP Controlled (<130/80) [facility] Start: 04-20-2024 Covid-19 Vaccine ( season) Covid-19 Vaccine ( season) [facility] Start: 04-20-2024 Influenza vaccination Influenza Vaccine (#1) [facility] Start: 04-19-2024 BP CONTROLLED (<130/80) BP CONTROLLED (<130/80) [facility] Start: 04-16-2024 BP CONTROLLED (<130/80) BP CONTROLLED (<130/80) [facility] Start: 2024 End: 2024 Patient encounter procedure 2024 4:00 PM EDT Office Visit Neurology [facility] [address] [id number] Marko Wood MD [address] [address] Essential tremor [G25.0] Neurology Comment on above: Essential tremor [G25.0] Start: 2024 DIABETES SCREEN DIABETES SCREEN [facility] Start: 03-18-2024 End: 03-18-2024 Follow-up encounter 03/18/2024 3:00 PM EDT [facility] [address] [place] [address] [place] [address] [place] [address] Follow up Rheumatology Comment on above: Follow up Start: 03-12-2024 ANNUAL PCP TEAM CHRONIC DISEASE VISIT ANNUAL PCP TEAM CHRONIC DISEASE VISIT [facility] Start: 03-12-2024 BP CONTROLLED (<130/80) BP CONTROLLED (<130/80) [facility] Start: 02-18-2024 End: 02-18-2024 Patient encounter procedure 02/18/2024 11:00 AM EDT Office Visit Family Medicine [place] [address] [facility] [place] [address] Ronna Quiroz APRN.RIP SAW OPERATOR [address] [place] [address] 3 week f/up b/p Family [facility] Comment on above: 3 week f/up b/p Start: 02-07-2024 End: 02-07-2024 Patient encounter procedure 02/07/2024 1:20 PM EDT Office Visit OB/Gynecology [address] [place] [address] Anca Rodriguez MD [address] [place] [address] possible yeast infection-former Dr. Rowan patient OB/Gynecology Comment on above: possible yeast infection-former Dr. Wanda chu patient Start: 01-28-2024 End: 01-28-2024 Patient encounter procedure Rheumatology Comment on above: 16 MONTH FOLLOW UP and PROLIA INJ 4 week b/p follow Start: 01-20-2024 BP CONTROLLED (<130/80) BP CONTROLLED (<130/80) [facility] Start: 01-09-2024 End: 01-09-2024 Patient encounter procedure 01/09/2024 9:00 AM EDT Office Visit [facility] [address] [place] [address] Ronna Quiroz APRN.RIP SAW OPERATOR [address] [place] [address] Blood Pressure Check; States BP has been elevated; 144-160/63-70 Family [facility] Comment on above: Blood Pressure Check; States BP has been elevated; 144-160/63-70 Start: 01-08-2024 End: 01-08-2024 Patient encounter procedure 01/08/2024 3:30 PM EDT Office Visit Vasculary Surgery [address] [place], [place] [id number] Carotid atherosclerosis, bilateral [I65.23 Vasculary Surgery Comment on above: Carotid atherosclerosis, bilateral [I65. 23 Start: 01-08-2024 End: 01-08-2024 Patient encounter procedure 01/08/2024 2:20 PM EDT Appointment Cat Scan [address] [place] [address] Nodule of lower lobe of left lung [R91.1] Cat Scan Comment on above: Nodule of lower lobe of left lung [R91.1 ] Start: 11-07-2023 End: 10-01-2024 25-hydroxyvitamin D3 [Mass/volume] in Serum or Plasma VITAMIN D 25 HYDROXY Lab Routine Osteoporosis, postmenopausal Expected: 11/07/2023 (Approximate), Expires: 10/01/2024 [facility] Work Phone: Comment on above: Expected: 11/07/2023 (Approximate), Expi res: 10/01/2024 Start: 11-07-2023 End: 02-06-2024 C reactive protein [Mass/volume] in Serum or Plasma C-REACTIVE PROTEIN (CRP) Lab Routine PMR (polymyalgia rheumatica) ([facility]) Expected: 11/07/2023 (Approximate), Expires: 02/06/2024 [facility] Work Phone: Comment on above: Expected: 11/07/2023 (Approximate), Expi res: 02/06/2024 Start: 11-07-2023 End: 10-01-2024 Calcium [Mass/volume] in Serum or Plasma CALCIUM TOTAL BLD Lab Routine Osteoporosis, postmenopausal Expected: 11/07/2023 (Approximate), Expires: 10/01/2024 [facility] Work Phone: Comment on above: Expected: 11/07/2023 (Approximate), Expi res: 10/01/2024 Start: 11-07-2023 End: 10-01-2024 CREATININE BLD CREATININE BLD Lab Routine Osteoporosis, postmenopausal Expected: 11/07/2023 (Approximate), Expires: 10/01/2024 [facility] Work Phone: Comment on above: Expected: 11/07/2023 (Approximate), Expi res: 10/01/2024 Start: 11-07-2023 End: 02-06-2024 Erythrocyte sedimentation rate SED RATE WESTERGREN Lab Routine PMR (polymyalgia rheumatica) ([facility]) Expected: 11/07/2023 (Approximate), Expires: 02/06/2024 [facility] Work Phone: Comment on above: Expected: 11/07/2023 (Approximate), Expi res: 02/06/2024 Start: 10-02-[address] [facility] Start: 10-02-2023 Screening for malignant neoplasm of breast Mammogram Screening [facility] Start: 08-20-2023 Advance Directive Discussion Advance Directive Discussion [facility] Start: 08-20-2023 Behavioral Health Screening Behavioral Health Screening [facility] Start: 08-20-2023 Depression Assessment Depression Assessment [facility] Start: 08-06-2023 End: 11-05-2023 Cobalamin (Vitamin B12) [Mass/volume] in Serum or Plasma VITAMIN B12 BLOOD Lab Routine Vitamin B12 deficiency Expected: 08/06/2023, Expires: 11/05/2023 [facility] Work Phone: Comment on above: Expected: 08/06/2023, Expires: Start: 08-06-2023 End: 11-05-2023 Comprehensive metabolic 2000 panel - Serum or Plasma COMP METABOLIC PANEL Lab Routine Multiple thyroid nodules Expected: 08/06/2023, Expires: 11/05/2023 [facility] Work Phone: Comment on above: Expected: 08/06/2023, Expires: 4 Start: 08-06-2023 End: 11-05-2023 Thyrotropin [Units/volume] in Serum or Plasma TSH BLD Lab Routine Multiple thyroid nodules Expected: 08/06/2023, Expires: 11/05/2023 [facility] Work Phone: Comment on above: Expected: 08/06/2023, Expires: 4 Start: 08-06-2023 End: 11-05-2023 Thyroxine (T4) free [Mass/volume] in Serum or Plasma T4 FREE/FREE THYROX Lab Routine Multiple thyroid nodules Expected: 08/06/2023, Expires: 11/05/2023 [facility] Work Phone: Comment on above: Expected: 08/06/2023, Expires: 4 Start: 07-24-2023 BP CONTROLLED (<130/80) BP CONTROLLED (<130/80) [facility] Start: 07-07-2023 ANNUAL PCP TEAM CHRONIC DISEASE VISIT ANNUAL PCP TEAM CHRONIC DISEASE VISIT [facility] Start: 07-07-2023 BP CONTROLLED (<130/80) BP CONTROLLED (<130/80) [facility] Start: 07-03-2023 ANNUAL PCP TEAM CHRONIC DISEASE VISIT ANNUAL PCP TEAM CHRONIC DISEASE VISIT [facility] Start: 07-03-2023 BP CONTROLLED (<130/80) BP CONTROLLED (<130/80) [facility] Start: 06-25-2023 BP CONTROLLED (<130/80) BP CONTROLLED (<130/80) [facility] Start: 04-28-2023 Adult depression screening assessment DEPRESSION SCREENING [facility] Start: 04-20-[address] [facility] Start: 03-17-2023 BP CONTROLLED (<130/80) BP CONTROLLED (<130/80) [facility] Start: 01-19-2023 End: 03-21-2023 25-hydroxyvitamin D3 [Mass/volume] in Serum or Plasma [facility] Work Phone: Comment on above: Expected: 01/19/2023, Expires: 3 Start: 12-26-2022 ANNUAL PCP TEAM CHRONIC DISEASE VISIT ANNUAL PCP TEAM CHRONIC DISEASE VISIT [facility] Start: 12-26-2022 BP CONTROLLED (<130/80) BP CONTROLLED (<130/80) [facility] Start: 12-16-2022 BP CONTROLLED (<130/80) BP CONTROLLED (<130/80) [facility] Start: 09-26-[address] [facility] Start: 08-20-2022 ADVANCE DIRECTIVE DISCUSSION ADVANCE DIRECTIVE DISCUSSION [facility] Start: 08-20-2022 DEPRESSION ASSESSMENT DEPRESSION ASSESSMENT [facility] Start: 07-24-2022 End: 07-24-2023 25-hydroxyvitamin D3 [Mass/volume] in Serum or Plasma [facility] Work Phone: Comment on above: Expected: 07/24/2022, Expires: 3 Start: 07-24-2022 End: 07-24-2023 Calcium [Mass/volume] in Serum or Plasma [facility] Work Phone: Comment on above: Expected: 07/24/2022, Expires: Start: 04-27-2022 Adult depression screening assessment DEPRESSION SCREENING 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) Expected: 04/19/2022 (Approximate), Expires: 04/19/2023 [facility] Work Phone: Comment on above: Expected: 04/19/2022 (Approximate), Expi res: 04/19/2023 Start: 04-19-2022 End: 04-19-2023 Aspartate aminotransferase [Enzymatic activity/volume] in Serum or Plasma AST/SGOT BLD Lab Routine PMR (polymyalgia rheumatica) (HCC) 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) Expected: 04/19/2022 (Approximate), Expires: 04/19/2023 [facility] Work Phone: Comment on above: Expected: 04/19/2022 (Approximate), Expi res: 04/19/2023 Start: 04-19-2022 End: 06-19-2022 BLOOD TB SCREEN BLOOD TB SCREEN Lab Routine PMR (polymyalgia rheumatica) (HCC) 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) Expected: 04/19/2022 (Approximate), Expires: 06/19/2022 [facility] Work Phone: Comment on above: Expected: 04/19/2022 (Approximate), Expi res: 06/19/2022 Start: 04-19-2022 End: 04-19-2023 CBC W Auto Differential panel - Blood CBC + DIFF Lab Routine PMR (polymyalgia rheumatica) (HCC) 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) Expected: 04/19/2022 (Approximate), Expires: 04/19/2023 [facility] Work Phone: Comment on above: Expected: 04/19/2022 (Approximate), Expi res: 04/19/2023 Start: 04-19-2022 End: 06-19-2022 Chronic hepatitis differentiation between hepatitis B and C virus panel - Serum or Plasma HEP REMOTE PANEL BL Lab Routine PMR (polymyalgia rheumatica) (HCC) 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 Start: 04-18-2022 Screening for malignant neoplasm of colon Fecal Occult Blood [facility] Start: 04-07-2022 End: 04-07-2022 Patient encounter procedure 04/07/2022 Office Visit Orthopedic Surgery Artur Pennington MD [address] [facility] [employer] [address] [place], [place] [id number] [facility] [place] Start: 03-23-2022 End: 03-23-2022 Patient encounter procedure 03/23/2022 Appointment General Surgery Artur Pennington MD [address] [place], [place] [id number] [facility] Start: 03-17-2022 End: 03-15-2023 25-hydroxyvitamin D3 [Mass/volume] in Serum or Plasma VITAMIN D 25 HYDROXY Lab Routine Osteoporosis, postmenopausal Expected: 03/17/2022 (Approximate), Expires: 03/15/2023 [facility] Work Phone: Comment on above: Expected: 03/17/2022 (Approximate), Expi res: 03/15/2023 Start: 03-17-2022 End: 05-17-2022 C reactive protein [Mass/volume] in Serum or Plasma C-REACTIVE PROTEIN (CRP) Lab Routine PMR (polymyalgia rheumatica) (HCC) 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) Expected: 03/17/2022 (Approximate), Expires: 05/17/2022 [facility] Work Phone: Comment on above: Expected: 03/17/2022 (Approximate), Expi res: 05/17/2022 Start: 03-17-2022 End: 03-15-2023 Calcium [Mass/volume] in Serum or Plasma CALCIUM TOTAL BLD Lab Routine Osteoporosis, postmenopausal Expected: 03/17/2022 (Approximate), Expires: 03/15/2023 [facility] Work Phone: Comment on above: Expected: 03/17/2022 (Approximate), Expi res: 03/15/2023 Start: 03-17-2022 End: 03-15-2023 CREATININE BLD CREATININE BLD Lab Routine Osteoporosis, postmenopausal Expected: 03/17/2022 (Approximate), Expires: 03/15/2023 [facility] Work Phone: Comment on above: Expected: 03/17/2022 (Approximate), Expi res: 03/15/2023 Start: 03-17-2022 End: 05-17-2022 Erythrocyte sedimentation rate SED RATE WESTERGREN Lab Routine PMR (polymyalgia rheumatica) (HCC) 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) Expected: 03/17/2022 (Approximate), Expires: 05/17/2022 [facility] Work Phone: Comment on above: Expected: 03/17/2022 (Approximate), Expi res: 05/17/2022 Start: 01-24-2022 COVID-19 Vaccine (4 - Booster for Pfizer series) COVID-19 Vaccine (4 - Booster for Pfizer series) [facility] Start: 01-09-2022 DTaP/Tdap/Td vaccine (2 - Td or Tdap) DTaP/Tdap/Td vaccine (2 - Td or Tdap) [facility] Start: 01-09-2022 DTaP/Tdap/Td vaccine (2 - Td) DTaP/Tdap/Td vaccine (2 - Td) [facility] [place] Start: 01-09-2022 Urine microalbumin profile DTAP,TDAP,TD (2 - Td or Tdap) [facility] Start: 12-24-2021 ANNUAL PCP TEAM CHRONIC DISEASE VISIT ANNUAL PCP TEAM CHRONIC DISEASE VISIT [facility] Start: 12-24-2021 COVID-19 VACCINE (4 - Booster for Pfizer series) COVID-19 VACCINE (4 - Booster for Pfizer series) [facility] Start: 12-16-2021 End: 02-15-2022 C reactive protein [Mass/volume] in Serum or Plasma [facility] Work Phone: Comment on above: Expected: 12/16/2021 (Approximate), Expi res: 02/15/2022 Start: 12-16-2021 End: 02-15-2022 Erythrocyte sedimentation rate [facility] Work Phone: Comment on above: Expected: 12/16/2021 (Approximate), Expi res: 02/15/2022 Start: 12-16-2021 End: 02-15-2022 VITAMIN D 25 HYDROXY [facility] Work Phone: Comment on above: Expected: 12/16/2021 (Approximate), Expi res: 02/15/2022 Start: 11-21-2021 COVID-19 VACCINE (4 - Booster for Pfizer series) COVID-19 VACCINE (4 - Booster for Pfizer series) [facility] Start: 11-21-2021 COVID-19 VACCINE (4 - Pfizer series) COVID-19 VACCINE (4 - Pfizer series) [facility] Start: 08-20-2021 ADVANCE DIRECTIVE DISCUSSION ADVANCE DIRECTIVE DISCUSSION [facility] Start: 08-20-2021 DEPRESSION ASSESSMENT DEPRESSION ASSESSMENT [facility] Start: 07-20-2015 Medicare Annual Wellness Visit Medicare Annual Wellness Visit [facility] Start: 04-16-2015 Screening for malignant neoplasm of cervix Cervical Cancer Screening [facility] Start: 2015 DEXA (modify frequency per FRAX score) DEXA (modify frequency per FRAX score) [facility] [place] Start: 2010 RSV Vaccine (1 - 1-dose 60+ series) RSV Vaccine (1 - 1-dose 60+ series) [facility] Start: 2010 RSV Vaccine (1 - Risk 60-74 years 1-dose series) RSV Vaccine (1 - Risk 60-74 years 1-dose series) [facility] Start: 2005 Influenza vaccination LUNG CANCER SCREENING [facility] Start: 2005 Screening for osteoporosis DEXA (modify frequency per FRAX score) [facility] Start: 2000 Breast cancer screen Breast cancer screen [place], [place] Start: 2000 Colon cancer screen colonoscopy Colon cancer screen colonoscopy [place], [place] Start: 2000 Influenza vaccination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 encounterMount [facility]. [facility]08-12-2024 History of Present illness Narrative* Ady Mackenzie [...] date: Actinic keratosis No date: Autoimmune disease ([facility]) 1982: Cancer ([facility]) Comment: Uterine No date: Cephalalgia No date: Cholelithiasis No date: Depression No date: Diarrhea No date: Disorder of bone and cartilage, unspecified 2003: Diverticulitis of colon (without mention of hemorrhage)(562.11) No date: Dysphagia 12/28/2021: Essential hypertension No date: GCA (giant cell arteritis) ([facility]) Comment: bx negative No date: GERD (gastroesophageal reflux disease) No date: Glaucoma 1999: Hematuria Comment: had workup including cystoscopy, etc. - entire workup negative. No longer happening. No date: IBS (irritable bowel syndrome) No date: Iron deficiency anemia, unspecified Comment: ? related to UGI source from NSAID's No date: Mixed hyperlipidemia No date: Palpitations No date: PMR (polymyalgia rheumatica) ([facility]) No date: Raynaud's disease /phenomenon [...] improve. Ady Mackenzie MD documented in this encounterMount [facility]. [facility]08-07-2024 Instructions* Patient Instructions* Carly Ramirez APRN.CNP - 03/26/2024 1:21 PM EDT Recommend stopping Sulfasalazine at this time and letting provider know it was stopped. If rash notimproving follow-up with PCP documented in this encounterMount St. [facility]08-07-2024 History of Present illness Narrative* Carly Ramirze APRN.CNP - 03/26/2024 1:00 PM EDT 03/26/2024 [...] date: Actinic keratosis No date: Autoimmune disease ([facility]) 1983: Cancer ([facility]) Comment: Uterine No date: Cephalalgia No date: Cholelithiasis No date: Depression No date: Diarrhea No date: Disorder of bone and cartilage, unspecified 2003: Diverticulitis of colon (without mention of hemorrhage)(562.11) No date: Dysphagia 12/28/2021: Essential hypertension No date: GCA (giant cell arteritis) ([facility]) Comment: bx negative No date: GERD (gastroesophageal reflux disease) No date: Glaucoma 1999: Hematuria Comment: had workup including cystoscopy, etc. - entire workup negative. No longer happening. No date: IBS (irritable bowel syndrome) No date: Iron deficiency anemia, unspecified Comment: ? related to UGI source from NSAID's No date: Mixed hyperlipidemia No date: Palpitations No date: PMR (polymyalgia rheumatica) ([facility]) No date: Raynaud's disease /phenomenon [...] Level: 4 - Moderate documented in this encounterMount [facility]. [facility]07-30-2024 History of Present illness Narrative* Magdalene Bradford MD - 03/18/2024 3:19 PM EDT On 03/18/2024, I had the pleasure of evaluating Cecelia Quiroz in a [facility]up [facility] Rhe[facility]ology [facility] for GCA, PMR and osteoporosis. This Team Access Model visit is a virtual encounter utilizing both video and audio components. It required patient-provider interaction for the medical decision making as documented below. My name and active licensure have been communicated. The patient's identity and physical location were verified at the time of this visit. Either the patient or their legal telesales representative has been informed of the risks [...] life Coronary Artery Disease Father Hx of AL, age 71 Tremor Mother Hypertension Mother Cancer [...] No Family History SOCIAL HISTORY: Lives in [place]. Works. Family lives in [place] Tobacco use: 1 ppd Alcohol use: None [...] weeks after starting. Notify of results via Skoutt - Tylenol prn 2. Osteoporosis: In , [...] prolia Magdalene Bradford MD documented in this encounterMount [facility]. [facility]07-12-2024 Telephone encounter Note * Telephone Encounter - Cathy Maravilla LPN - 02/29/2024 3:25 PM EDT [facility]07-12-[facility] Miscellaneous Notes* Telephone Encounter - Cathy Maravilla [...] these. Melony Peraza RN documented in this encounterMount St. [facility]07-12-2024 Telephone encounter Note * Telephone Encounter - Wily Abarca APRN.CNP - 02/29/2024 3:06 PM EDT In the outbox in our office. Wily Abarca APRN.IRINEO [facility]07-12-2024 Telephone encounter Note* Telephone Encounter - Colleen Cornelius MA - 02/29/2024 3:04 PM EDT Please reprint script. Unable to locate. Colleen Cornelius MA [facility]07-11-2024 Telephone encounter Note* Telephone Encounter - Keely Rousseau RN - 02/28/2024 1:45 PM EDT Spoke with patient, agrees to appointment change. Scheduled accordingly. Keely Rousseau RN [facility]07-11-2024 Miscellaneous Notes* Telephone Encounter - Keely Rousseau [...] she states please advise. documented in this encounterMount St. [facility]07-11-2024 Telephone encounter Note * Telephone Encounter - Melony Peraza RN - 02/28/2024 12:27 PM EDT Patient calling to request order for BP monitor kit be faxed to [facility]. Was sent to [facility] but they don't dispense these. Melony Peraza RN [facility]07-11-2024 Telephone encounter Note* Telephone Encounter - Keely Rousseau RN - 02/28/2024 11:21 AM EDT Spoke with patient, states she took last 1/2 tablet of Plaquenil on Sunday02/25/2024 - dizziness, diarrhea, weakness subsided late Sunday evening( 02/26/2024) , she has felt fine since. Scheduled VV with provider for to discuss further options. Advised this message will be relayed to provider. Keely Rousseau RN [facility]07-11-2024 Telephone encounter Note* Telephone Encounter - Carmencita Whitten - 02/28/2024 11:11 AM EDT Patient calling with update of the PLAQUENIL and states symptoms were even worse this time weak dizzy and diarrhea and has stopped taking it she states please advise. [facility]07-01-2024 History of Present illness Narrative* RichieRonna APRN.RIP SAW OPERATOR - 02/18/2024 11:00 AM EDT Chief Complaint [...] life Coronary Artery Disease Father Hx of AL, age 71 Tremor Mother Hypertension Mother Cancer [...] Patient agreeable to treatment plan. Ronna Walsh APRN.RIP SAW OPERATOR [address] [place] [address] [address] [facility]06-20-2024 History of Present illness Narrative* Anca Rodriguez MD - 02/07/2024 1:02 PM EDT Cloth Cutter offered: Patient declines. Cecelia Quiroz is a 73 year old female who presents for problem visit vaginal yeast infection for 6 days. HPI: Started have vulvar irritation on Sunday. Minimal discharge. Had some blood on wiping this am. OB History T0 L2 SAB0 IAB0 Ectopic0 Multiple0 Live Births0 Central Supply Aide History LMP: Hysterectomy Age at Menarche: Age at First : Age at Menopause: Central Supply Aide History Comments: Sexual Activity: Yes; Male Contraception: [...] life Coronary Artery Disease Father Hx of AL, age 71 Tremor Mother Hypertension Mother Cancer [...] external genitalia normal, normal Bartholin's glands, urethra, Leipsic's glands, no vulvar lesions, good vaginal support, physiologic discharge present, normal appearing perineal body and perianal region, vulvar irritation along outer labia bilateral. No lesions. BIMANUAL: deferred NEURO: alert and oriented x3,exam grossly non-focal EXTREMITIES: normal ASSESSMENT AND PLAN: Encounter Diagnosis ICD-10-CM 1. Yeast dermatitis B37.2 nystatin-triamcinolone (MYCOLOG) ointment Mycolog cream to labia. No vaginal involvement Anca Rodriguez MD documented in this encounterMount St. [facility]06-18-2024 Telephone encounter Note * Telephone Encounter - Keely Rousseau RN - 02/05/2024 1:45 PM EDT Spoke with patient, relayed message below. Verbalizes understanding, agrees with plan. Will notify office if symptoms continue/worsen. Keely Rousseau RN [facility]06-18-2024 Miscellaneous Notes* Telephone Encounter - Keely Rousseau [...] getting worse. She can be reached at [phone]. documented in this encounterMount [facility]. [facility]06-18-2024 Telephone encounter Note * Telephone Encounter - Magdalene Bradford MD - 02/05/2024 1:40 PM EDT Sounds like she's having side effects from HCQ. She should hold the HCQ completely for now. Once the symptoms subside, she could resume at a very low dose of 1/2 tablet every other day if she wanted to see if that would be better tolerated. Thanks. [facility]-18-[facility] Telephone encounter Note* Telephone Encounter - Keely [...] and to avoid NSAIDs. Keely Rousseau RN [facility]06-18-2024 Telephone encounter Note* Telephone Encounter - Yenny Mandel - 02/05/2024 12:45 PM EDT The first few days the patient took hydroxychloroquine 200 mg she was fine. Last weekend she started to experience headaches and diarrhea, and the headaches are getting worse. She can be reached at [phone]. [facility]06-10-2024 Instructions* Patient Instructions* Magdalene Bradford MD - [...] for the blood draw. documented in this encounterMount St. [facility]06-10-2024 History of Present illness Narrative* Magdalene Bradford MD - 01/28/2024 12:47 PM EDT On 01/28/2024, I had the pleasure of evaluating Cecelia Quiroz in a follow-up [facility] Rheumatology appointment for GCA, PMR and osteoporosis. [...] life Coronary Artery Disease Father Hx of AL, age 71 Tremor Mother Hypertension Mother Cancer [...] No Family History SOCIAL HISTORY: Lives in [place]. Works. Family lives in [place] Tobacco use: 1 ppd Alcohol use: None [...] >9 consistent with fibromyalgia LABORATORY: Latest Ref [facility] 10/22/2023 12/17/2023 Protein, Total 6.3 - 8.0 [...] by me in the office today. Lot [id number]. No PA needed given medicare a/b - Check labs in June in preparation for the Jul prolia dose. Notify of results via [employer]. Verbal and written reminders provided. - Continue [...] Completed the covid vaccination series in November, [employer]. - Advised to continue follow-up with PCP for routine health maintenance and malignancy screening 6 months w/Palma for prolia, 6 mon after with rheum RN for prolia, 6 mon after with me for prolia Magdalene Bradford MD documented in this encounterMount [facility]. [facility]06-10-2024 History of Present illness Narrative* Richie CARMINA Friend.RIP SAW OPERATOR - 01/28/2024 10:27 AM EDT Chief Complaint [...] of LH/dizziness. Miah Cottrell DO Pt declined junior account manager at the time. Past medical history, appointments, [...] life Coronary Artery Disease Father Hx of AL, age 71 Tremor Mother Hypertension Mother Cancer [...] Patient agreeable to treatment plan. Ronna Walsh APRN.RIP SAW OPERATOR [address] [place] [address] [address] [facility]05-24-2024 Telephone encounter Note * Telephone Encounter - Eliana Germain LPN - 01/11/2024 11:02 AM EDT Phoned patient went over result, notes from Dr Cottrell with understanding. [facility]05-24-2024 Miscellaneous Notes* Telephone Encounter - Eliana Germain [...] disease. Miah Cottrell DO documented in this encounterMount St. [facility]05-24-2024 Telephone encounter Note * Telephone Encounter - Miah Cottrell DO - 01/11/2024 9:50 AM EDT Please inform patient that overall her CT chest is stable No new changes See below IMPRESSION: Stable left lung nodule. No new or enlarging nodules identified. Mild emphysema. Remote granulomatous disease. Miah Cottrell DO [facility]05-22-2024 Telephone encounter Note* Telephone Encounter - Eliana Germain LPN - 01/09/2024 10:53 AM EDT Patient returned call and went over notes below from Dr Cottrell with understanding. Patient said she had appt with BORING MACHINE OPERATOR PRODUCTION this morning and going to try the blood pressure medication she added today since she was having headaches. [facility]-22-[facility]24 Miscellaneous Notes* Telephone Encounter - Eliana Germain LPN - 01/09/2024 10:53 AM EDT Patient returned call and went over notes below from Dr Cottrell with understanding. Patient said she had appt with BORING MACHINE OPERATOR PRODUCTION this morning and going to try the [...] dysplasia Miah Cottrell DO documented in this encounterMount [facility]. [facility]05-22-2024 History of Present illness Narrative* Ronna Quiroz APRN.RIP SAW OPERATOR - 01/09/2024 8:55 AM EDT Chief Complaint [...] life Coronary Artery Disease Father Hx of AL, age 71 Tremor Mother Hypertension Mother Cancer [...] Patient agreeable to treatment plan. Ronna Walsh APRN.RIP SAW OPERATOR [address] [place] [address] [address] [facility]05-22-2024 Telephone encounter Note * Telephone Encounter - Cathy Maravilla LPN - 01/09/2024 8:31 AM EDT ;Left message to return call. 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 We can send her to a vascular specialist for further testing if she is having a lot of LH/dizziness. Miah Cottrell DO [facility]05-21-2024 Telephone encounter Note* Telephone Encounter - Patricia Madsen RN - 01/08/2024 4:54 PM EDT Pt called and is notified of providers results. Pt asking what the fibromuscular dysplasia means. Patricia Madsen RN [facility]05-21-2024 Telephone encounter Note* Telephone Encounter - Miah Cottrell DO - 01/08/2024 4:39 PM EDT Please inform patient that her carotid artery US is overall stable, mild plaque and signs of fibromuscular dysplasia Miah Cottrell DO [facility]05-21-2024 History of Present illness Narrative* Yazmin Cruz [...] PATIENT PRESENTS WITH AN IMPLANTABLE OR ATTACHED DRYWALL METAL STUD WORKER: No RADIOLOGY DEPARTMENT: CT; Exam(s) Completed: Chest PERIPHERAL IV DATA: Not applicable SIGNED BY: RT Nabor(R) January 08, 2024 3:46 PM documented in this encounterMount [facility]. [facility]04-29-2024 History of Present illness Narrative* Miah Cottrell [...] life Coronary Artery Disease Father Hx of AL, age 71 Tremor Mother Hypertension Mother Cancer [...] ICD9: 446.5, 725, ICD10: M31.5 F/u with New Car Make Ready Worker 12. Osteoporosis, postmenopausal - ICD9: 733.01, ICD10: [...] agreed with the plan. Miah Cottrell DO [address] [place] [address] [address] [facility]04-15-2024 Miscellaneous Notes* Telephone Encounter - Keely Rousseau [...] URICACID Zara Cheema MA documented in this encounterMount St. [facility]03-14-2024 Miscellaneous Notes* Telephone Encounter - Mali Singh OCCA - 11/01/2023 8:39 AM EDT TC to patient who verbalized understanding of providers message below with no questions at this time. HAIDER Cornell * Telephone Encounter - Miah Cottrell DO - 10/31/2023 10:21 PM EDT Please inform patient that her labs are all stable that I ordered Miah Cottrell DO documented in this encounterMount [facility]. [facility]02-21-2024 Miscellaneous Notes* Letter - Coordinator, Mammography - 10/10/2023 6:43 AM EST October 10, 2023 PID: [id number] Cecelia Quiroz [address] [place] [address] Dear Ms. Quiroz, We are pleased to [...] report will be kept on file at [facility] as part of your permanent medical record and are available for your continuing care. Thank you for allowing us to help in meeting your health care needs. Sincerely, Dr. Hunt Interpreting Radiologist [facility] (Normal over 40) documented in this encounterMount St. Mary [facility]02-19-2024 History of Present illness Narrative* Tamika Tyson [...] PATIENT PRESENTS WITH AN IMPLANTABLE OR ATTACHED DRYWALL METAL STUD WORKER: No RADIOLOGY DEPARTMENT: Mammography PERIPHERAL IV DATA: Not applicable SIGNED BY: Nicolas DanielWego Mendel October 08, 2023 10:09 AM documented in this encounterMount [facility]. [facility]02-16-2024 History of Present illness Narrative* Palma Lovett APRN.RIP SAW OPERATOR - 10/05/2023 3:00 PM EST Follow-up [facility] Rheumatology appointment for GCA, PMR and osteoporosis. [...] vitamin D. No falls or fractures since [facility]. She is taking prednisone 10 mg daily. [...] life Coronary Artery Disease Father Hx of AL, age 71 Tremor Mother Hypertension Mother Cancer [...] No Family History SOCIAL HISTORY: Lives in [place]. Works. Family lives in [place] Tobacco use: 1 ppd Alcohol use: None [...] labs in 10/2023. Notify of results via Skoutt - Continue calcium and vitamin D supplementation - Check DEXA in Jan (for skilled nursing steroid use)-order placed and she was reminded [...] which included preparing to see the patient, [id number] patient care, completing clinical documentation, performing a medically appropriate examination, ordering medications, tests, or procedures, and communicating results to the patient/fam shane/caregiver. Palma Lovett APRN.CNP documented in this encounterMount St. [facility]02-13-2024 Instructions* Patient Instructions* Palma Lovett APRN.CNP - 10/02/2023 4:15 PM EST Please schedule bone density on the same machine as prior after 02/27/2024 Please have labs done around 11/07/[address] [facility]12-04-2023 History of Present illness Narrative* Donna Mattson RN - 07/23/2023 10:17 AM EST Patient denies fractures or falls since last visit. Yes Patient denies any dental work in last 2 months or upcoming 2 months. Yes Patient given Prolia SQ in the right arm Patient tolerated injection well. Lot #: [id number] Exp. Date: 10/17/2025 Last Vitamin D & Serum Calcium: Calcium (mg/dL) Date Value 2021 9.2 Calcium, Total (mg/dL) Date Value 05/09/2023 9.5 Vitamin D 25 Hydroxy (ng/mL) Date Value 05/09/2023 30.1 09/09/2021 44.3 Last DXA: 03/02/2023 Visit scheduled. Next Prolia Appointment: 01/28/2024 Donna Mattson RN documented in this encounterMount [facility]. [facility]11-27-2023 Miscellaneous Notes* Telephone Encounter - Palma Lovett APRN.IRINEO - 07/16/2023 3:17 PM EST Order signed. Palma Cuellar APRN.RIP SAW OPERATOR * Telephone Encounter - Donna Mattson RN [...] 12/2023 Donna Mattson RN documented in this encounterMount [facility]. [facility]10-27-2023 Instructions* Patient Instructions* Miah Cottrell DO - 06/15/2023 12:54 PM EDT Magnesium glycinate or gluconate or oxide 250-400 mg a day in the evening to help neck pain documented in this encounterMount St. [facility]10-27-2023 History of Present illness Narrative* Miah Cottrell [...] plan. See patient instructions. Miah Cottrell DO [address] [place] [address] [address] [facility]09-26-2023 Miscellaneous Notes* Telephone Encounter - Nerissa Campa [...] 3:47 PM EDT Throid FNA results from [facility] Scan on 05/04/2023 9:40 AM by Provider, NI Hernandez: Miscellaneous Clinical Documents Nerissa Campa LPN documented in this encounterMount [facility]. [facility]09-18-2023 History of Present illness Narrative* Will Ruiz [...] to repeat fine-needle aspirations documented in this encounterMount St. [facility]09-11-2023 Instructions* Patient Instructions* Nerissa Campa LPN - 04/30/2023 2:48 PM EDT The following instructions are important for you related to your office visit today with the [facility] General Surgeons. Instructions After THYROID FINE NEEDLE [...] you have any questions or concerns @ [phone]. Please make an appointment to follow up in one week with your physician and thank you for choosing the [facility]. If you note any additional difficulties, questions, or concerns, you should contact our office immediately @ [phone] and ask to be transferred to the General Surgery department. documented in this encounterMount [facility]. [facility]09-11-2023 History of Present illness Narrative* Will Ruiz [...] applicable. Nerissa Campa LPN documented in this encounterMount St. [facility]08-31-2023 History of Present illness Narrative* Marko Wood MD - 04/19/2023 12:22 PM EDT [facility] - FOLLOW UP EVALUATION Miah Cottrell DO [address] [facility] [address] Dear Miah Cottrell DO: I had the [...] Office Visit from 03/12/2023 in Family Medicine [facility] Appointment from 12/08/2022 in Rheumatology Global Physical [...] appointment, pleasefeel free to send me a Periscape message or contact the office - Updated [...] Sincerely, Marko Wood MD documented in this encounterMount [facility]. [facility]08-31-2023 Instructions* Patient Instructions* Marko Wood MD - [...] appointment, pleasefeel free to send me a Periscape message or contact the office - Your B12 was somewhat low end of normal. Try taking a B12 supplement - Movement Disorders Medication Schedule: Medications Bed metoprolol ER 50 mg daily primidone 250 mg 1 Return at or around: 04/19/24 If there are any concerns before your next visit, please call or you can send a message through [employer]. You can also now schedule and select appointments through [employer]. Marko Wood MD documented in this encounterMount [facility]. [facility]08-30-2023 Miscellaneous Notes* Telephone Encounter - Marina Olvieira RN - 04/18/2023 1:53 PM EDT Patient [...] assist in scheduling. Thank you, Ronna Quiroz APRN.RIP SAW OPERATOR * Telephone Encounter - Patricia Madsen RN [...] needed Miah Cottrell DO documented in [facility]23 Miscellaneous Notes* Telephone Encounter - Cathy Maravilla [...] and advise. Cesia Teixeira documented in this encounterMount [facility]. [facility]07-27-2023 Miscellaneous Notes* Telephone Encounter - Cathy Maravilla [...] makes sure to discuss this with her New Car Make Ready Worker Miah Cottrell DO documented in this encounterMount [facility]. [facility]07-24-2023 History of Present illness Narrative* Jovanna Carvalho [...] 12, 2023 2:06 PM documented in this encounterMount [facility]. [facility]07-17-2023 Miscellaneous Notes* Telephone Encounter - Ana Rodriguez [...] improved in all sites. documented in this encounterMount [facility]. [facility]07-14-2023 Miscellaneous Notes* Telephone Encounter - Eliana Hartman - 03/02/2023 12:04 PM EDT Pt had a bone density test this past Sunday and hasn't heard anything yet. She is requesting a callback with some information on the results. documented in this encounterMount [facility]. [facility]07-10-2023 History of Present illness Narrative* Filipe Mcneill [...] 26, 2023 12:55 PM documented in this encounterMount [facility]. [facility]06-21-2023 Miscellaneous Notes* Telephone Encounter - Janie Massey [...] URICACID Prema Miguel MA documented in this encounterMount [facility]. [facility]06-19-2023 Miscellaneous Notes* Telephone Encounter - Eliana Hartman - 02/05/2023 3:36 PM EDT Sent mcm cancelling appt on 08/03/[address] [facility]06-02-2023 Instructions* Patient Instructions* Janie Massey PA-C - [...] your usual activities immediately. documented in this encounterMount [facility]. [facility]06-02-2023 History of Present illness Narrative* Janie Massey [...] for long-term (current) use of medications (Z79.52) 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 Blood TB: Negative (05/08/2022) Hepatitis B Antibody test: Negative (04/27/2022) Hepatitis B Antibody test: Negative (04/27/2022) 1. PMR/GCA: Steroid-responsive shoulder/hip pain and CT neck with findings suspicious for vasculitis with negative TA biopsies x2. Has tried: HCQ, MTX PO/SC and actemra without improvement. Off methotrexate. Overall joint pain is relatively stable, intermittent, with hand involvement. [place] pain comes and goes but doesn't seem [...] Completed the covid vaccination series in November, [employer]. - Advised to continue follow-up with PCP for routine health maintenance and malignancy screening Plan As above No follow-ups on file. I spent a total of 32 minutes on the date of the service which included preparing to see the patient, [id number] patient care, completing clinical documentation, obtaining and/or reviewing separately obtained history, performing a medically appropriate examination, counseling and educating the pat ient/family/caregiver, and ordering medications, tests, or procedures. Janie Massey PA-C cc: PCP: Miah Cottrell [address] [place] [address] Subjective INTERVAL HISTORY She denies Shoulder pain [...] Moderate diffuse cervical spondylosis with interval progression. Branch Mechanic: NAYELY Transcribe Date/Time: Dec 16 2021 1:18P [...] Giant Cell Arteritis With Polymyalgia Rheumatica (Hcc) [facility] Living Systemic Steroid User Actinic Keratosis Undiagnosed Cardiac [...] life Coronary Artery Disease Father Hx of AL, age 71 Tremor Mother Hypertension Mother Cancer [...] Exam Data (across time) documented in this encounterMount [facility]. [facility]05-04-2023 Miscellaneous Notes* Telephone Encounter - Cathy Maravilla [...] patient. Eliana Thomas Pss documented in this encounterMount St. [facility]05-04-2023 Miscellaneous Notes* Telephone Encounter - Palma Lovett [...] [address], [place]. documented in this encounterMount St. 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 [facility]03-16-2023 Miscellaneous Notes* Telephone Encounter - Colleen Cornelius - 11/02/2022 7:49 AM EDT Please see pt message regarding results US left breast completed yesterday. Colleen Cornelius documented in this encounterMount [facility]. [facility]03-15-2023 History of Present illness Narrative* Johanna Velázquez [...] 01, 2022 11:13 AM documented in this encounterMount [facility]. [facility]03-15-2023 History of Present illness Narrative* Alivia Horton [...] 01, 2022 10:04 AM documented in this encounterMount [facility]. [facility]02-13-2023 Miscellaneous Notes* Letter - Mammography Coordinator - 10/02/2022 11:46 AM EST October 03, 2022 PID: [id number] Cecelia Quiroz [address] [place] [address] Dear Ms. Quiroz, Your recent breast imaging [...] who ordered/prescribed your screening mammogram: Please call [phone] or EXT: [phone] to schedule an appointment for your additional [...] and reports are [facility] as part of [facility] permanent medical record, and are available for your continuing care. Thank you for allowing us to help in meeting your health care needs. Sincerely, Dr. Solomon Interpreting Radiologist [facility] (Additional imaging) documented in this encounterMount St. [facility]12-05-2022 History of Present illness Narrative* Magdalene Bradford MD - 07/24/2022 1:07 PM EST On 07/24/2022, I had the pleasure of evaluating Cecelia Quiroz in a [facility]up [facility] for GCA, PMR and osteoporosis. [...] life Coronary Artery Disease Father Hx of AL, age 71 Tremor Mother Hypertension Mother Cancer [...] No Family History SOCIAL HISTORY: Lives in [place]. Works. Family lives in [place] Tobacco use: 1 ppd Alcohol use: None [...] - Check labs. 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 PUD: With bleeding gastric [...] patient. Magdalene Bradford MD documented in this encounterMount St. [facility]11-18-2022 History of Present illness Narrative* Wily Abarca APRN.[facility] - 07/07/2022 9:47 AM EST Chief Complaint Patient presents with: Wound Check: Left leg HPI Cecelia Quiroz is a 72 year old female who presents here today for Above Complaints.. Per appointment with myself on 07/03/2022: Cecelia Quiroz is a 72 year old female who presents here today for Above Complaints.. Per [facility] care visit with Jeremy Cohen CNP on [...] Essential hypertension 12/28/2021 GCA (giant cell arteritis) ([facility]) bx negative Glaucoma Hematuria 1999 had workup including cystoscopy, etc. - entire workup negative. No longer happening. IBS (irritable bowel syndrome) Iron deficiency anemia, unspecified ? related to UGI source from NSAID's PMR (polymyalgia rheumatica) ([facility]) Raynaud's disease /phenomenon Steroid long-term [...] life Coronary Artery Disease Father Hx of AL, age 71 Tremor Mother Hypertension Mother Cancer [...] in 1-2 weeks if necessary. Wily Abarca APRN.RIP SAW OPERATOR documented in this encounterMount [facility]. [facility]11-14-2022 History of Present illness Narrative* Bethany Sanchez [...] 03, 2022 10:07 AM documented in this encounterMount St. [facility]11-14-2022 Instructions* Patient Instructions* Wily Abarca APRN.CNP - 07/03/2022 9:46 AM EST Take 5 more days of the antibiotic-we sent this to [facility] for you. Have the xray of your lower leg completed-I'll let you know when I get the results. Follow up on Sunday (07/07). Ok to leave the wound areas open. documented in this encounterMount St. [facility]11-14-2022 History of Present illness Narrative* Wily Abarca [...] life Coronary Artery Disease Father Hx of AL, age 71 Tremor Mother Hypertension Mother Cancer [...] LEFT Wily Abarca APRN.IRINEO documented in this encounterMount [facility]. [facility]11-06-2022 History of Present illness Narrative* Jeremy Cohen [...] Essential hypertension 12/28/2021 GCA (giant cell arteritis) ([facility]) bx negative Glaucoma Hematuria 1999 [...] life Coronary Artery Disease Father Hx of AL, age 71 Tremor Mother Hypertension Mother Cancer [...] Agrees to plan Declines avs Jeremy Cohen APRN.RIP SAW OPERATOR documented in this encounterMount [facility]. [facility]10-03-2022 History of Present illness Narrative* Diana Norman [...] 22, 2022 4:21 PM documented in this encounterMount [facility]. [facility]10-03-2022 History of Present illness Narrative* Melissa Pierre RN - 05/22/2022 8:53 AM EDT Educated pt on proper technique for SQ methotrexate injection. Instructed on dosage and how to measure appropriately. Pt has had previous experience with SQ injections. Pt stated understanding and had no further questions. documented in this encounterMount [facility]. [facility]09-29-2022 Miscellaneous Notes* Telephone Encounter - Prema Miguel MA - 05/18/2022 1:12 PM EDT Keaton Moran RN: Received a call asking if patient can come to our office to receive self injection teaching on methotrexate. Spoke to Yumiko who stated we can do this at our facility; patient will need to go on the chemo schedule. [address] will contact patient and assist with scheduling. Prema Miguel MA * Telephone Encounter - Prema Miguel MA - 05/18/2022 9:22 AM EDT Spoke with [facility]. Care coordination will need to check with RN's on this and will contact me back with a response. Prema Miguel MA * Telephone Encounter - Palma Lovett APRN.CNP - 05/18/2022 6:50 AM EDT Could you please call the [facility] infusion center to see if they have nurses available to do injection teaching. Thanks, Palma Lovett APRN.RIP SAW OPERATOR documented in this encounterMount St. [facility]09-13-2022 History of Present illness Narrative* Marko Wood MD - 05/02/2022 10:42 AM EDT [facility] - FOLLOW UP EVALUATION Miah Cottrell DO [id number] [facility] [id number] I had the pleasure of seeing Ms. [...] Sincerely, Marko Wood MD documented in this encounterMount St. [facility]08-31-2022 Miscellaneous Notes* Addendum Note - Palma Lovett APRN.CNP - 04/19/2022 12:24 PM EDTAddended by: PALMA LOVETT on: 04/19/2022 12:24 PM Modules accepted: Orders * Telephone Encounter - Palma Lovett APRN.CNP - 04/19/2022 11:27 AM EDT Get Medical Advice on 04/18/22 SED RATE WESTERGREN C-REACTIVE PROTEIN (CRP) Palma Lovett APRN.IRINEO documented in this encounterMount St. [facility]08-04-2022 History of Present illness Narrative* Charmaine Juarez [...] Gait steady. Denies nausea documented [facility] this [facility] Work Phone: 1(676) 489-799008-04-2022 Hospital Discharge instructions* Discharge Instructions* KATARINA Morejon - 03/23/2022 9:47 AM EDT Images from the original note were not included. If you have any questions please call Dr Pennington's office ([phone]), all calls after 4:30 pm or anytime on Sunday or Sunday go through the answering service. The nurse at the answering service will triage your call to determine if the at night on-call physician needs to be called (this may notbe Dr Pennington but one of his partners if Dr Pennington is not quality control inspector heading). Any calls regarding medication refills will be [...] feel uncomfortable call Dr Pennington's office immediately ([phone]). Leave the dressing in place, you do [...] recreational drugs while taking the narcotic medication.[facility] restricts the amount of pain pills [...] water in it, call Dr. Pennington's office ([phone]) immediately and you will beinstructed which office [...] dietitian. documented in this encounterSUMMA Work Phone: 1(434) 724-403008-02-2022 Miscellaneous Notes* Telephone Encounter - Palma Lovett [...] understanding. Palma Lovett APRN.CNP documented in this encounterMount St. [facility]07-29-2022 History of Present illness Narrative* Palma Lovett APRN.CNP - 03/17/2022 10:30 AM EDT [facility] for GCA, PMR and osteoporosis. [...] Essential hypertension 12/28/2021 GCA (giant cell arteritis) ([facility]) bx negative Glaucoma Hematuria 1999 [...] life Coronary Artery Disease Father Hx of AL, age 71 Tremor Mother Hypertension Mother Cancer [...] No Family History SOCIAL HISTORY: Lives in [place]. Works. Tobacco use: 1 ppd Alcohol use: [...] Abs Lymph 1.00 - 4.00 k/uL 1.75 [place]% % 5.4 Abs [place] <0.87 k/uL 0.77 [place]% % 0.1 Abs [...] Completed the covid vaccination series in November, [place]. She also received the booster vaccine. - [...] which included preparing to see the patient, [id number] patient care, completing clinical documentation, performing a medically appropriate examination, ordering medications, tests, or procedures and communicating results to the patient/fami ly/caregiver. Palma Lovett APRN.CNP documented in this encounterMount St. [facility]07-29-2022 Instructions* Patient Instructions* Palma Lovett APRN.CNP - 03/17/2022 10:27 AM EDT Please contact me with an update after speaking with ortho about timing of Prolia. documented in this encounterMount [facility]. [facility]07-20-2022 Hospital Discharge instructions* Discharge Instructions* Sravanthi Wick [...] Care Everywhere. * Orthopedic Hardware Removal: Post-op (Croatian) documented in this encounterSUMMA Work Phone: 1(558) 697-202807-18-2022 Miscellaneous Notes* Telephone Encounter - Palma Lovett [...] URICACID Zara Cheema MA documented in this encounterMount St. Mary [facility]06-20-2022 NoteHNO ID: [id number] Author: PRITI Mcconnell Service: Radiology Author Type: [...] BY: PRITI Mcconnell February 06, 2022 10:44 AMPremier [id number] Miscellaneous Notes* Telephone Encounter - Anca Mark Pss - 02/02/2022 10:13 AM EDT Pharmacy verified in [facility] Patient has been identified by name and [...] advise. Anca Mark Pss documented in this encounterMount St. [facility]05-17-2022 Miscellaneous Notes* Telephone Encounter - Alena Hernandes MA - 01/03/2022 10:03 AM EDT Patient notified via [employer] message. Alena Hernandes MA * Telephone Encounter - Miah Cottrell DO - 01/03/2022 9:54 AM EDT Please inform patient that CTA of her head was without any acute findings IMPRESSION: No acute intracranial abnormality. Stable chronic changes. No apparent intracranial arterial occlusion, high-grade stenosis, or Aneurysm. Miah Cottrell DO documented in this encounterMount St. [facility]05-16-2022 History of Present illness Narrative* Yazmin Guthrie, [...] 2022 TIME: 2:55 PM documented in this encounterMount St. Mary [facility]05-11-2022 History of Past illness Narrative* Problem Noted Date Resolved Date Shortness of breath 12/28/2021 01/19/2023 GCA (giant cell arteritis) 01/18/201204/19 Routine general medical exam ination at a health care facility 02/12/2009 11/27/2011 Overview: 02/12/09 -- transfer [facility] 05/10/2010, yearly physical ROUTINE REGISTERED ROUTE ASSOCIATE CARE - [place] 10/29/20072011 Overview: Dr. Rowan Disorder of bone and cartilage 0 03/05/2016 Overview: Was on Actonel - quit taking it when had problems from pharmacy Allergic rhinitis, cause unspecified 10/29/2007 MVP (mitral valve prolapse) 09/2022 Overview: (unable to locate an old echo on the [facility] EMR) Carpal tunnel syndrome 8 Hematuria 10/29/2007 Overview: had workup including cystoscopy, etc. - entire workup negative. No longer happening. documented as of this encounter (statuses as of 01/20/2023) [facility] of Past illness Narrative* Problem Noted Date Resolved Date Shortness of breath 12/28/2021 01/19/2023 GCA (giant cell arteritis) 01/18/201204/19 Routine general medical exam ination at a health care facility 02/12/2009 11/27/2011 Overview: 02/12/09 -- transfer [facility] 05/10/2010, yearly physical ROUTINE REGISTERED ROUTE ASSOCIATE CARE - [place] 10/29/20072011 Overview: Dr. Rowan Disorder of bone and cartilage 0 03/05/2016 Overview: Was on Actonel - quit taking it when had problems from pharmacy Allergic rhinitis, cause unspecified 10/29/2007 MVP (mitral valve prolapse) 09/2022 Overview: (unable to locate an old echo on the [facility] EMR) Carpal tunnel syndrome 8 Hematuria 10/29/2007 Overview: had workup including cystoscopy, etc. - entire workup negative. No longer happening. documented as of this encounter (statuses as of 02/01/2023) [facility] of Past illness Narrative* Problem Noted Date Resolved Date Shortness of breath 12/28/2021 01/19/2023 GCA (giant cell arteritis) 01/18/201204/19 Routine general medical exam ination at a health care facility 02/12/2009 11/27/2011 Overview: 02/12/09 -- transfer [facility] 05/10/2010, yearly physical ROUTINE REGISTERED ROUTE ASSOCIATE CARE - [place] 10/29/20072011 Overview: Dr. Rowan Disorder of bone and cartilage 0 03/05/2016 Overview: Was on Actonel - quit taking it when had problems from pharmacy Allergic rhinitis, cause unspecified 10/29/2007 MVP (mitral valve prolapse) 09/2022 Overview: (unable to locate an old echo on the [facility] EMR) Carpal tunnel syndrome 8 Hematuria 10/29/2007 Overview: had workup including cystoscopy, etc. - entire workup negative. No longer happening. documented as of this encounter (statuses as of 02/06/2023) [facility] of Past illness Narrative* Problem Noted Date Resolved Date Shortness of breath 12/28/2021 01/19/2023 GCA (giant cell arteritis) 01/18/201204/19 Routine general medical exam ination at a health care facility 02/12/2009 11/27/2011 Overview: 02/12/09 -- transfer [facility] 05/10/2010, yearly physical ROUTINE REGISTERED ROUTE ASSOCIATE CARE - [place] 10/29/20072011 Overview: Dr. Rowan Disorder of bone and cartilage 0 03/05/2016 Overview: Was on Actonel - quit taking it when had problems from pharmacy Allergic rhinitis, cause unspecified 10/29/2007 MVP (mitral valve prolapse) 09/2022 Overview: (unable to locate an old echo on the [facility] EMR) Carpal tunnel syndrome 8 Hematuria 10/29/2007 Overview: had workup including cystoscopy, etc. - entire workup negative. No longer happening. documented as of this encounter (statuses as of 02/08/2023) [facility] Past illness Narrative* Problem Noted Date Diagnosed Date Resolved Date Shortness of breath 12/28/2021 01/20/20 GCA (giant cell arteritis) 01/18/2012 0 04/19/2017 Routine general medical exam ination at a health care facility 02/12/2009 11/27/2011 Overview: 02/12/09 -- transfer [facility] 05/10/2010, yearly physical ROUTINE REGISTERED ROUTE ASSOCIATE CARE - [place] 10/29/2007 Overview: Dr. 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 - entire workup negative. No longer happening. documented as of this encounter (statuses as of 03/05/2023) 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 - entire workup negative. No longer happening. documented as of this encounter (statuses as of 03/15/2023) [facility] Past illness Narrative* Problem Noted Date Diagnosed Date Resolved Date Shortness of breath 12/28/2021 01/20/20 23 GCA (giant cell arteritis) 01/18/2012 0 04/19/2017 Routine general medical exam ination at a health care facility 02/12/2009 11/27/2011 Overview: 02/12/09 -- transfer [facility] 05/10/2010, yearly physical ROUTINE REGISTERED ROUTE ASSOCIATE CARE - [place] 10/29/2007 Overview: Dr. 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 - entire workup negative. No longer happening. documented as of this encounter (statuses as of 03/29/2023) 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 - entire workup negative. No longer happening. documented as of this encounter (statuses as of 04/18/2023) [facility] Narrative* Problem Noted Date Diagnosed Date Resolved Date Shortness of breath 12/28/2021 01/20/20 23 GCA (giant cell arteritis) 01/18/2012 0 04/19/2017 Routine general medical exam ination at a health care facility 02/12/2009 11/27/2011 Overview: 02/12/09 -- transfer [facility] 05/10/2010, yearly physical ROUTINE REGISTERED ROUTE ASSOCIATE CARE - [place] 10/29/2007 Overview: Dr. 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 - entire workup negative. No longer happening. documented as of this encounter (statuses as of 04/19/2023) 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 - entire workup negative. No longer happening. documented as of this encounter (statuses as of 05/08/2023) 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 - entire workup negative. No longer happening. documented as of this encounter (statuses as of 05/14/2023) 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 - entire workup negative. No longer happening. documented as of this encounter (statuses as of 05/15/2023) 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 - entire workup negative. No longer happening. documented as of this encounter (statuses as of 06/20/2023) [facility]05-11[facility] History of Past illness Narrative* Problem Noted Date Diagnosed Date Resolved Date Shortness of breath 12/28/2021 01/20/20 23 GCA (giant cell arteritis) 01/18/2012 0 04/19/2017 Routine general medical exam ination at a health care facility 02/12/2009 11/27/2011 Overview: 02/12/09 -- transfer [facility] 05/10/2010, yearly physical ROUTINE REGISTERED ROUTE ASSOCIATE CARE - [place] 10/29/2007 Overview: Dr. 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 - entire workup negative. No longer happening. documented as of this encounter (statuses as of 06/24/2023) 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 - entire workup negative. No longer happening. documented as of this encounter (statuses as of 06/24/2023) 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 - entire workup negative. No longer happening. documented as of this encounter (statuses as of 06/24/2023) 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 - entire workup negative. No longer happening. documented as of this encounter (statuses as of 06/24/2023) 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 - entire workup negative. No longer happening. documented as of this encounter (statuses as of 06/24/2023) 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 - entire workup negative. No longer happening. documented as of this encounter (statuses as of 07/17/2023) 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 - entire workup negative. No longer happening. documented as of this encounter (statuses as of 07/23/2023) 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 - entire workup negative. No longer happening. documented as of this encounter (statuses as of 10/05/2023) 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 - entire workup negative. No longer happening. documented as of this encounter (statuses as of 10/09/2023) 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 - entire workup negative. No longer happening. documented as of this encounter (statuses as of 10/10/2023) 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 - entire workup negative. No longer happening. documented as of this encounter (statuses as of 10/12/2023) 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 - entire workup negative. No longer happening. documented as of this encounter (statuses as of 11/01/2023) 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 - entire workup negative. No longer happening. documented as of this encounter (statuses as of 12/04/2023) [facility] Miscellaneous Notes* Telephone Encounter - Sravanthi Carlisle [...] is calling because she stated she called [facility] and told them she needs a prescription for Metoprolol 50 mg; she thought the doctor had sent a new prescription. Patient wants to confirm that she is supposed to be taking Metoprolol 50 mg; take one tablet daily? If so, please send a corrected script to [facility]. Please follow up with the patient either way. metoprolol succinate ER (TOPROL XL) 25 mg 24 hr tablet 90 tablet 1 08/05/2021 Sig: Take 1 tablet by mouth once daily. Patient taking differently: Take 50 mg by mouth once daily. Sent to pharmacy as: metoprolol succinate ER (TOPROL XL) 25 mg 24 hr tablet Class: Normal Route: ORAL Order: [id number] E-Prescribing Status: Receipt confirmed by pharmacy (08/05/2021 2:33 PM EST) Patient has been identified by name and birthdate. Duration of symptoms: N/A Person calling: self Call patient at: on cell [phone] (home) [phone] (cell) Was an appointment scheduled: No Closing statement: Results or non-symptom based questions: Thank you for calling [facility], your call will be returned within the next business day. Carmen Duke Pss documented [facility] Miscellaneous Notes* Telephone Encounter - Prema Miguel [...] Thanks, Palma Lovett APRN.IRINEO [facility] History of Present illness Narrative* Palma Lovett APRN.CNP - 12/16/2021 1:31 PM EDT Orders Only on 12/16/21 CONSULT TO PHYSICAL THERAPY CONSULT TO [facility] Palma Lovett APRN.CNP documented [facility] NoteIMPRESSION: 1. Moderate diffuse cervical spondylosis with interval progression. Branch Mechanic: PSCB Transcribe Date/Time: Dec 16 2021 1:18P Dictated by : ANNIKA MONTALVO MD This examination was interpreted and the report reviewed and electronically signed by: ANNIKA MONTALVO MD on Dec 16 2021 1:19PM EST [id number] [id number] History of Present illness Narrative* Dorene Mcgraw, [...] 16, 2021 11:27 AM documented [facility] History of Present illness Narrative* Palma Lovett APRN.RIP SAW OPERATOR - 12/16/2021 10:30 AM EDT Follow-up [facility] Rheumatology appointment for GCA, PMR and osteoporosis. [...] of hemorrhage)([phone]) 2003 GCA (giant cell arteritis) ([facility]) bx negative Glaucoma Hematuria 1999 had workup including cystoscopy, etc. - entire workup negative. No longer happening. 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 Works. Tobacco use: 1 ppd Alcohol use: [...] Abs Lymph 1.00 - 4.00 k/uL 1.75 [place]% % 5.4 Abs [place] <0.87 k/uL 0.77 [place]% % 0.1 Abs [...] Completed the covid vaccination series in November, [place]. She also received the booster vaccine. - [...] which included preparing to see the patient, [id number] patient care, completing clinical documentation, performing a medically appropriate examination, ordering medications, tests, or procedures and communicating results to the patient/fami ly/caregiver. Palma Lovett APRN.IRINEO documented [facility] Instructions* Patient Instructions* Palma Lovett APRN.CNP - 12/16/2021 10:30 AM EDT Please schedule bone density test on the same machine as prior after 02/01/[address] [facility] History of Past illness Narrative* Problem Noted Date Resolved Date GCA (giant cell arteritis) 01/18/201204/19 Polymyalgia rheumatica 01/10/2012 7 Routine general medical exam ination at a health care facility 02/12/2009 11/27/2011 Overview: 02/12/09 -- transfer [facility] 05/10/2010, yearly physical ROUTINE REGISTERED ROUTE ASSOCIATE CARE - [place] 10/29/20072011 Overview: Dr. Rowan Disorder of bone and cartilage 0 03/05/2016 Overview: Was on Actonel - quit taking it when had problems from pharmacy Allergic rhinitis, cause unspecified 10/29/2007 Carpal tunnel syndrome 8 Hematuria 10/29/2007 Overview: had workup including cystoscopy, etc. - entire workup negative. No longer happening. documented as of this encounter (statuses as of 12/16/2021) [facility] History of Past illness Narrative* Problem Noted Date Resolved Date GCA (giant cell arteritis) 01/18/201204/19 Polymyalgia rheumatica 01/10/2012 7 Routine general medical exam ination at a health care facility 02/12/2009 11/27/2011 Overview: 02/12/09 -- transfer [facility] 05/10/2010, yearly physical ROUTINE REGISTERED ROUTE ASSOCIATE CARE - [place] 10/29/20072011 Overview: Dr. Rowan Disorder of bone and cartilage 0 03/05/2016 Overview: Was on Actonel - quit taking it when had problems from pharmacy Allergic rhinitis, cause unspecified 10/29/2007 Carpal tunnel syndrome 8 Hematuria 10/29/2007 Overview: had workup including cystoscopy, etc. - entire workup negative. No longer happening. documented as of this encounter (statuses as of 12/16/2021) [facility] of Past illness Narrative* Problem Noted Date Resolved Date GCA (giant cell arteritis) 01/18/201204/19 Polymyalgia rheumatica 01/10/2012 7 Routine general medical exam ination at a health care facility 02/12/2009 11/27/2011 Overview: 02/12/09 -- transfer [facility] 05/10/2010, yearly physical ROUTINE REGISTERED ROUTE ASSOCIATE CARE - [place] 10/29/20072011 Overview: Dr. Rowan Disorder of bone and cartilage 0 03/05/2016 Overview: Was on Actonel - quit taking it when had problems from pharmacy Allergic rhinitis, cause unspecified 10/29/2007 Carpal tunnel syndrome 8 Hematuria 10/29/2007 Overview: had workup including cystoscopy, etc. - entire workup negative. No longer happening. documented as of this encounter (statuses as of 12/19/2021) [facility] of Past illness Narrative* Problem Noted Date Resolved Date GCA (giant cell arteritis) 01/18/201204/19 Polymyalgia rheumatica 01/10/2012 7 Routine general medical exam ination at a health care facility 02/12/2009 11/27/2011 Overview: 02/12/09 -- transfer [facility] 05/10/2010, yearly physical ROUTINE REGISTERED ROUTE ASSOCIATE CARE - [place] 10/29/20072011 Overview: Dr. Rowan Disorder of bone and cartilage 0 03/05/2016 Overview: Was on Actonel - quit taking it when had problems from pharmacy Allergic rhinitis, cause unspecified 10/29/2007 Carpal tunnel syndrome 8 Hematuria 10/29/2007 Overview: had workup including cystoscopy, etc. - entire workup negative. No longer happening. documented as of this encounter (statuses as of 12/27/2021) [facility] of Past illness Narrative* Problem Noted Date Resolved Date GCA (giant cell arteritis) 01/18/201204/19 Polymyalgia rheumatica 01/10/2012 7 Routine general medical exam ination at a health care facility 02/12/2009 11/27/2011 Overview: 02/12/09 -- transfer [facility] 05/10/2010, yearly physical ROUTINE REGISTERED ROUTE ASSOCIATE CARE - [place] 10/29/20072011 Overview: Dr. Rowan Disorder of bone and cartilage 0 03/05/2016 Overview: Was on Actonel - quit taking it when had problems from pharmacy Allergic rhinitis, cause unspecified 10/29/2007 Carpal tunnel syndrome 8 Hematuria 10/29/2007 Overview: had workup including cystoscopy, etc. - entire workup negative. No longer happening. documented as of this encounter (statuses as of 01/03/2022) [facility] of Past illness Narrative* Problem Noted Date Resolved Date GCA (giant cell arteritis) 01/18/201204/19 Polymyalgia rheumatica 01/10/2012 7 Routine general medical exam ination at a health care facility 02/12/2009 11/27/2011 Overview: 02/12/09 -- transfer [facility] 05/10/2010, yearly physical ROUTINE REGISTERED ROUTE ASSOCIATE CARE - [place] 10/29/20072011 Overview: Dr. Rowan Disorder of bone and cartilage 0 03/05/2016 Overview: Was on Actonel - quit taking it when had problems from pharmacy Allergic rhinitis, cause unspecified 10/29/2007 Carpal tunnel syndrome 8 Hematuria 10/29/2007 Overview: had workup including cystoscopy, etc. - entire workup negative. No longer happening. documented as of this encounter (statuses as of 01/03/2022) [facility] Narrative* Problem Noted Date Resolved Date GCA (giant cell arteritis) 01/18/201204/19 Polymyalgia rheumatica 01/10/2012 7 Routine general medical exam ination at a health care facility 02/12/2009 11/27/2011 Overview: 02/12/09 -- transfer [facility] 05/10/2010, yearly physical ROUTINE REGISTERED [facility] - [place] 10/29/20072011 Overview: Dr. Rowan Disorder of bone and cartilage 0 03/05/2016 Overview: Was on Actonel - quit taking it when had problems from pharmacy Allergic rhinitis, cause unspecified 10/29/2007 Carpal tunnel syndrome 8 Hematuria 10/29/2007 Overview: had workup including cystoscopy, etc. - entire workup negative. No longer happening. documented as of this encounter (statuses as of 02/02/2022) [facility] History of Past illness Narrative* Problem Noted Date Resolved Date GCA (giant cell arteritis) 01/18/201204/19 Polymyalgia rheumatica 01/10/2012 7 Routine general medical exam ination at a health care facility 02/12/2009 11/27/2011 Overview: 02/12/09 -- transfer [facility] 05/10/2010, yearly physical ROUTINE REGISTERED [facility] C[facility] - [place] 10/29/20072011 Overview: Dr. Rowan Disorder of bone and cartilage 0 03/05/2016 Overview: Was on Actonel - quit taking it when had problems from pharmacy Allergic rhinitis, cause unspecified 10/29/2007 Carpal tunnel syndrome 8 Hematuria 10/29/2007 Overview: had workup including cystoscopy, etc. - entire workup negative. No longer happening. documented as of this encounter (statuses as of 03/06/2022) [facility] History of Past illness Narrative* Problem Noted Date Resolved Date GCA (giant cell arteritis) 01/18/201204/19 Polymyalgia rheumatica 01/10/2012 7 Routine general medical exam ination at a health care facility 02/12/2009 11/27/2011 Overview: 02/12/09 -- transfer [facility] 05/10/2010, yearly physical ROUTINE REGISTERED [facility] CARE - [place] 10/29/20072011 Overview: Dr. Rowan Disorder of bone and cartilage 0 03/05/2016 Overview: Was on Actonel - quit taking it when had problems from pharmacy Allergic rhinitis, cause unspecified 10/29/2007 Carpal tunnel syndrome 8 Hematuria 10/29/2007 Overview: had workup including cystoscopy, etc. - entire workup negative. No longer happening. documented as of this encounter (statuses as of 03/17/2022) [facility] History of Past illness Narrative* Problem Noted Date Resolved Date GCA (giant cell arteritis) 01/18/201204/19 Polymyalgia rheumatica 01/10/2012 7 Routine general medical exam ination at a health care facility 02/12/2009 11/27/2011 Overview: 02/12/09 -- transfer from [facility] 05/10/2010, yearly physical ROUTINE REGISTERED [facility]TE [facility]OC[facility]ATE CARE - [place] 10/29/20072011 Overview: Dr. Rowan Disorder of bone and cartilage 0 03/05/2016 Overview: Was on Actonel - quit taking it when had problems from pharmacy Allergic rhinitis, cause unspecified 10/29/2007 Carpal tunnel syndrome 8 Hematuria 10/29/2007 Overview: had workup including cystoscopy, etc. - entire workup negative. No longer happening. documented as of this encounter (statuses as of 03/21/2022) [facility] History of Past illness Narrative* Problem Noted Date Resolved Date GCA (giant cell arteritis) 01/18/201204/19 Polymyalgia rheumatica 01/10/2012 7 Routine general medical exam ination at a health care facility 02/12/2009 11/27/2011 Overview: 02/12/09 -- transfer from [facility] 05/10/2010, yearly physical ROUTINE REGISTERED [facility] CARE - [place] 10/29/20072011 Overview: Dr. Rowan Disorder of bone and cartilage 0 03/05/2016 Overview: Was on Actonel - quit taking it when had problems from pharmacy Allergic rhinitis, cause unspecified 10/29/2007 Carpal tunnel syndrome 8 Hematuria 10/29/2007 Overview: had workup including cystoscopy, etc. - entire workup negative. No longer happening. documented as of this encounter (statuses as of 04/04/2022) [facility] History of Past illness Narrative* Problem Noted Date Resolved Date GCA (giant cell arteritis) 01/18/201204/19 Polymyalgia rheumatica 01/10/2012 7 Routine general medical exam ination at a health care facility 02/12/2009 11/27/2011 Overview: 02/12/09 -- transfer [facility] 05/10/2010, yearly physical ROUTINE REGISTERED [facility] - [place] 10/29/20072011 Overview: Dr. Rowan Disorder of bone and cartilage 0 03/05/2016 Overview: Was on Actonel - quit taking it when had problems from pharmacy Allergic rhinitis, cause unspecified 10/29/2007 Carpal tunnel syndrome 8 Hematuria 10/29/2007 Overview: had workup including cystoscopy, etc. - entire workup negative. No longer happening. documented as of this encounter (statuses as of 04/19/2022) [facility] History of Past illness Narrative* Problem Noted Date Resolved Date GCA (giant cell arteritis) 01/18/201204/19 Polymyalgia rheumatica 01/10/2012 7 Routine general medical exam ination at a health care facility 02/12/2009 11/27/2011 Overview: 02/12/09 -- transfer [facility] 05/10/2010, yearly physical ROUTINE REGISTERED [facility] - [place] 10/29/20072011 Overview: Dr. Rowan Disorder of bone and cartilage 0 03/05/2016 Overview: Was on Actonel - quit taking it when had problems from pharmacy Allergic rhinitis, cause unspecified 10/29/2007 Carpal tunnel syndrome 8 Hematuria 10/29/2007 Overview: had workup including cystoscopy, etc. - entire workup negative. No longer happening. documented as of this encounter (statuses as of 05/02/2022) [facility] History of Past illness Narrative* Problem Noted Date Resolved Date GCA (giant cell arteritis) 01/18/201204/19 Polymyalgia rheumatica 01/10/2012 7 Routine general medical exam ination at a health care facility 02/12/2009 11/27/2011 Overview: 02/12/09 -- transfer from [facility] 05/10/2010, yearly physical ROUTINE REGISTERED [facility] CARE - [place] 10/29/20072011 Overview: Dr. Rowan Disorder of bone and cartilage 0 03/05/2016 Overview: Was on Actonel - quit taking it when had problems from pharmacy Allergic rhinitis, cause unspecified 10/29/2007 Carpal tunnel syndrome 8 Hematuria 10/29/2007 Overview: had workup including cystoscopy, etc. - entire workup negative. No longer happening. documented as of this encounter (statuses as of 05/08/2022) [facility] History of Past illness Narrative* Problem Noted Date Resolved Date GCA (giant cell arteritis) 01/18/201204/19 Polymyalgia rheumatica 01/10/2012 7 Routine general medical exam ination at a health care facility 02/12/2009 11/27/2011 Overview: 02/12/09 -- transfer from [facility] 05/10/2010, yearly physical ROUTINE REGISTERED [facility] C[facility] - [place] 10/29/20072011 Overview: Dr. Rowan Disorder of bone and cartilage 0 03/05/2016 Overview: Was on Actonel - quit taking it when had problems from pharmacy Allergic rhinitis, cause unspecified 10/29/2007 Carpal tunnel syndrome 8 Hematuria 10/29/2007 Overview: had workup including cystoscopy, etc. - entire workup negative. No longer happening. documented as of this encounter (statuses as of 05/18/2022) [facility] History of Past illness Narrative* Problem Noted Date Resolved Date GCA (giant cell arteritis) 01/18/201204/19 Polymyalgia rheumatica 01/10/2012 7 Routine general medical exam ination at a health care facility 02/12/2009 11/27/2011 Overview: 02/12/09 -- transfer [facility] 05/10/2010, yearly physical ROUTINE REGISTERED [facility] - [place] 10/29/20072011 Overview: Dr. Rowan Disorder of bone and cartilage 0 03/05/2016 Overview: Was on Actonel - quit taking it when had problems from pharmacy Allergic rhinitis, cause unspecified 10/29/2007 Carpal tunnel syndrome 8 Hematuria 10/29/2007 Overview: had workup including cystoscopy, etc. - entire workup negative. No longer happening. documented as of this encounter (statuses as of 05/22/2022) [facility] History of Past illness Narrative* Problem Noted Date Resolved Date GCA (giant cell arteritis) 01/18/201204/19 Polymyalgia rheumatica 01/10/2012 7 Routine general medical exam ination at a health care facility 02/12/2009 11/27/2011 Overview: 02/12/09 -- transfer [facility] 05/10/2010, yearly physical ROUTINE REGISTERED [facility] - [place] 10/29/20072011 Overview: Dr. Rowan Disorder of bone and cartilage 0 03/05/2016 Overview: Was on Actonel - quit taking it when had problems from pharmacy Allergic rhinitis, cause unspecified 10/29/2007 Carpal tunnel syndrome 8 Hematuria 10/29/2007 Overview: had workup including cystoscopy, etc. - entire workup negative. No longer happening. documented as of this encounter (statuses as of 06/25/2022) [facility] History of Past illness Narrative* Problem Noted Date Resolved Date GCA (giant cell arteritis) 01/18/201204/19 Polymyalgia rheumatica 01/10/2012 7 Routine general medical exam ination at a health care facility 02/12/2009 11/27/2011 Overview: 02/12/09 -- transfer from [facility] 05/10/2010, yearly physical ROUTINE REGISTERED [facility] - [place] 10/29/20072011 Overview: Dr. Rowan Disorder of bone and cartilage 0 03/05/2016 Overview: Was on Actonel - quit taking it when had problems from pharmacy Allergic rhinitis, cause unspecified 10/29/2007 Carpal tunnel syndrome 8 Hematuria 10/29/2007 Overview: had workup including cystoscopy, etc. - entire workup negative. No longer happening. documented as of this encounter (statuses as of 07/03/2022) [facility] History of Past illness Narrative* Problem Noted Date Resolved Date GCA (giant cell arteritis) 01/18/201204/19 Polymyalgia rheumatica 01/10/2012 7 Routine general medical exam ination at a health care facility 02/12/2009 11/27/2011 Overview: 02/12/09 -- transfer from [facility] 05/10/2010, yearly physical ROUTINE REGISTERED [facility] - [place] 10/29/20072011 Overview: Dr. Rowan Disorder of bone and cartilage 0 03/05/2016 Overview: Was on Actonel - quit taking it when had problems from pharmacy Allergic rhinitis, cause unspecified 10/29/2007 Carpal tunnel syndrome 8 Hematuria 10/29/2007 Overview: had workup including cystoscopy, etc. - entire workup negative. No longer happening. documented as of this encounter (statuses as of 07/07/2022) [facility] History of Past illness Narrative* Problem Noted Date Resolved Date GCA (giant cell arteritis) 01/18/201204/19 Polymyalgia rheumatica 01/10/2012 7 Routine general medical exam ination at a health care facility 02/12/2009 11/27/2011 Overview: 02/12/09 -- transfer [facility] 05/10/2010, yearly physical ROUTINE REGISTERED [facility] - [place] 10/29/20072011 Overview: Dr. Rowan Disorder of bone and cartilage 0 03/05/2016 Overview: Was on Actonel - quit taking it when had problems from pharmacy Allergic rhinitis, cause unspecified 10/29/2007 Carpal tunnel syndrome 8 Hematuria 10/29/2007 Overview: had workup including cystoscopy, etc. - entire workup negative. No longer happening. documented as of this encounter (statuses as of 07/24/2022) [facility] History of Past illness Narrative* Problem Noted Date Resolved Date GCA (giant cell arteritis) 01/18/201204/19 Polymyalgia rheumatica 01/10/2012 7 Routine general medical exam ination at a health care facility 02/12/2009 11/27/2011 Overview: 02/12/09 -- transfer [facility] 05/10/2010, yearly physical ROUTINE REGISTERED [facility] - [place] 10/29/20072011 Overview: Dr. Rowan Disorder of bone and cartilage 0 03/05/2016 Overview: Was on Actonel - quit taking it when had problems from pharmacy Allergic rhinitis, cause unspecified 10/29/2007 Carpal tunnel syndrome 8 Hematuria 10/29/2007 Overview: had workup including cystoscopy, etc. - entire workup negative. No longer happening. documented as of this encounter (statuses as of 07/31/2022) [facility] History of Past illness Narrative* Problem Noted Date Resolved Date GCA (giant cell arteritis) 01/18/201204/19 Polymyalgia rheumatica 01/10/2012 7 Routine general medical exam ination at a health care facility 02/12/2009 11/27/2011 Overview: 02/12/09 -- transfer from [facility] 05/10/2010, yearly physical ROUTINE REGISTERED [facility] - [place] 10/29/20072011 Overview: Dr. Rowan Disorder of bone and cartilage 0 03/05/2016 Overview: Was on Actonel - quit taking it when had problems from pharmacy Allergic rhinitis, cause unspecified 10/29/2007 Carpal tunnel syndrome 8 Hematuria 10/29/2007 Overview: had workup including cystoscopy, etc. - entire workup negative. No longer happening. documented as of this encounter (statuses as of 10/03/2022) [facility] History of Past illness Narrative* Problem Noted Date Resolved Date GCA (giant cell arteritis) 01/18/201204/19 Polymyalgia rheumatica 01/10/2012 7 Routine general medical exam ination at a health care facility 02/12/2009 11/27/2011 Overview: 02/12/09 -- transfer [facility] 05/10/2010, yearly physical ROUTINE REGISTERED [facility] - [place] 10/29/20072011 Overview: Dr. Rowan Disorder of bone and cartilage 0 03/05/2016 Overview: Was on Actonel - quit taking it when had problems from pharmacy Allergic rhinitis, cause unspecified 10/29/2007 Carpal tunnel syndrome 8 Hematuria 10/29/2007 Overview: had workup including cystoscopy, etc. - entire workup negative. No longer happening. documented as of this encounter (statuses as of 10/04/2022) [facility] History of Past illness Narrative* Problem Noted Date Resolved Date GCA (giant cell arteritis) 01/18/201204/19 Polymyalgia rheumatica 01/10/2012 7 Routine general medical exam ination at a [facility] care facility 02/12/2009 11/27/2011 Overview: 02/12/09 -- transfer [facility] 05/10/2010, yearly physical ROUTINE REGISTERED [facility] - [place] 10/29/20072011 Overview: Dr. Rowan Disorder of bone and cartilage 0 03/05/2016 Overview: Was on Actonel - quit taking it when had problems from pharmacy Allergic rhinitis, cause unspecified 10/29/2007 Carpal tunnel syndrome 8 Hematuria 10/29/2007 Overview: had workup including cystoscopy, etc. - entire workup negative. No longer happening. documented as of this encounter (statuses as of 11/09/2022) [facility] History of Past illness Narrative* Problem Noted Date Resolved Date GCA (giant cell arteritis) 01/18/201204/19 Polymyalgia rheumatica 01/10/2012 7 Routine general medical exam ination at a health care facility 02/12/2009 11/27/2011 Overview: 02/12/09 -- transfer [facility] 05/10/2010, yearly physical ROUTINE REGISTERED [facility] - [place] 10/29/20072011 Overview: Dr. Rowan Disorder of bone and cartilage 0 03/05/2016 Overview: Was on Actonel - quit taking it when had problems from pharmacy Allergic rhinitis, cause unspecified 10/29/2007 Carpal tunnel syndrome 8 Hematuria 10/29/2007 Overview: had workup including cystoscopy, etc. - entire workup negative. No longer happening. documented as of this encounter (statuses as of 11/21/2022) [facility] History of Past illness Narrative* Problem Noted Date Resolved Date GCA (giant cell arteritis) 01/18/201204/19 Polymyalgia rheumatica 01/10/2012 7 Routine general medical exam ination at a [facility] care facility 02/12/2009 11/27/2011 Overview: 02/12/09 -- [facility] 05/10/2010, yearly physical ROUTINE REGISTERED [facility] - [place] 10/29/20072011 Overview: Dr. Rowan Disorder of bone and cartilage 0 03/05/2016 Overview: Was on Actonel - quit taking it when had problems from pharmacy Allergic rhinitis, cause unspecified 10/29/2007 Carpal tunnel syndrome 8 Hematuria 10/29/2007 Overview: had workup including cystoscopy, etc. - entire workup negative. No longer happening. documented as of this encounter (statuses as of 12/21/2022) [facility] History of Past illness Narrative* Problem Noted Date Resolved Date GCA (giant cell arteritis) 01/18/201204/19 Polymyalgia rheumatica 01/10/2012 7 Routine general medical exam ination at a health care facility 02/12/2009 11/27/2011 Overview: 02/12/09 -- transfer [facility] 05/10/2010, yearly physical ROUTINE REGISTERED [facility] - [place] 10/29/20072011 Overview: Dr. Rowan Disorder of bone and cartilage 0 03/05/2016 Overview: Was on Actonel - quit taking it when had problems from pharmacy Allergic rhinitis, cause unspecified 10/29/2007 Carpal tunnel syndrome 8 Hematuria 10/29/2007 Overview: had workup including cystoscopy, etc. - entire workup negative. No longer happening. documented as of this encounter (statuses as of 12/21/2022) [facility] PMR (polymyalgia rheumatica) (HCC)- Primary Polymyalgia rheumatica 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) Giant cell arteritis Osteoporosis, postmenopausal Senile osteoporosis Encounter for long-term (current) use of medications Encounter for long-term (current) use of other medications Neck pain [facility]- Primary Cervicalgia [facility] Diagnosis Essential hypertension Unspecified essential hypertension Headache, unspecified headache type [facility] Diagnosis Right ankle pain, unspecified chronicity documented in this encounter [facility] Work Phone: Evaluation note* Diagnosis New daily persistent headache 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) Giant cell arteritis Hyperlipidemia, mixed Mixed hyperlipidemia [facility] this [facility] Diagnosis PMR (polymyalgia rheumatica) (HCC)- Primary Polymyalgia rheumatica 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) Giant cell arteritis Osteoporosis, postmenopausal Senile osteoporosis Encounter for long-term (current) use of medications Encounter for long-term (current) use of other medications [facility] this [facility] Diagnosis 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 Traumatic arthropathy, ankle and foot documented in this encounter [facility] Work Phone: Evaluation noteNo assessment information available [facility] Work Phone: Evaluation note* Diagnosis PMR (polymyalgia rheumatica) (HCC)- Primary Polymyalgia rheumatica 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) Giant cell arteritis [facility] Diagnosis Essential tremor- Primary Essential and other specified forms of tremor [facility] Encounter for injection education- Primary Other specified counseling [facility] Skin infection- Primary Unspecified local infection of skin and subcutaneous tissue Need for tetanus booster Need for prophylactic vaccination with tetanus toxoid alone [facility] Diagnosis Injury of left lower extremity, subsequent encounter- Primary Wound of left lower extremity, subsequent encounter Pain of left lower extremity Hematoma of left lower leg [facility] Pain of left lower extremity- Primary Hematoma of left lower leg Wound of left lower extremity, subsequent encounter Injury of left lower extremity, subsequent encounter [facility] Diagnosis Osteoporosis, postmenopausal- Primary Senile osteoporosis [facility] Diagnosis Essential hypertension Unspecified essential hypertension Headache, unspecified headache type [facility] Diagnosis PMR (polymyalgia rheumatica) (HCC)- Primary Polymyalgia rheumatica 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) Giant cell arteritis Osteoporosis, postmenopausal Senile osteoporosis Encounter for long-term (current) use of medications Encounter for long-term (current) use of other medications 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 Encounter for long-term (current) use of steroids [facility] Diagnosis PMR (polymyalgia rheumatica) (HCC)- Primary Polymyalgia rheumatica 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) Giant cell arteritis [facility] Diagnosis Multiple thyroid nodules- Primary Nontoxic multinodular goiter [facility] Diagnosis Essential tremor Essential and other specified forms of tremor [facility] Diagnosis Multinodular goiter- Primary Nontoxic [...] ClinicEvaluation note* Diagnosis Osteoporosis, postmenopausal 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 osteoporosis 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 Encounter for [...] [facility] Diagnosis [facility] ([facility]algia rheumatica) ([facility])- Primary Polymyalgia rheumatica 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) Giant cell arteritis Osteoporosis, postmenopausal Senile osteoporosis Encounter for long-term (current) use of medications Encounter for long-term (current) use of other medications [facility] Diagnosis Screening mammogram for breast cancer [facility] Diagnosis Nodule of lower lobe [...] vitamin D deficiency [facility] Diagnosis Nodule of lower lobe of left lung [facility] Diagnosis Essential hypertension- Primary Unspecified essential hypertension [facility] this 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 Diagnosis Essential hypertension Unspecified essential hypertension [facility] this 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 Diagnosis Rash- Primary Rash and other nonspecific skin eruption [facility] this [facility] Diagnosis Allergic contact dermatitis, unspecified trigger- Primary [facility]* Diagnosis Essential tremor Essential and other specified forms of tremor [facility]* Diagnosis Essential hypertension Unspecified essential hypertension [facility]* Diagnosis Injury of left lower extremity, subsequent encounter Wound of left lower extremity, subsequent encounter Pain of left lower extremity Hematoma of left lower leg [facility] Diagnosis PMR (polymyalgia rheumatica) (HCC) Polymyalgia rheumatica 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) Giant cell arteritis [facility] Diagnosis Neck pain Cervicalgia [facility] Diagnosis Essential hypertension- Primary Unspecified essential hypertension Ganglion cyst Ganglion, unspecified Hornet sting, accidental or unintentional, initial encounter Diarrhea due to malabsorption Personal history of other diseases of digestive system [facility] Diagnosis Essential hypertension- Primary Unspecified essential hypertension Carotid atherosclerosis, bilateral [facility]* Diagnosis Postmenopausal osteoporosis- Primary Senile osteoporosis [facility] Diagnosis Essential hypertension Unspecified essential hypertension [facility]* Diagnosis Essential hypertension Unspecified essential hypertension documented [facility]* Diagnosis Encounter for screening mammogram for breast cancer documented [facility] Diagnosis Essential hypertension- Primary Unspecified essential hypertension 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) Giant cell arteritis Dupuytren's contracture of right hand Contracture of palmar fascia Chronic midline low back pain without sciatica Right wrist pain Pain in joint, forearm Tobacco abuse Tobacco use disorder Osteoporosis, postmenopausal Senile osteoporosis [facility]* Diagnosis Encounter for long-term (current) use of medications- Primary Encounter for long-term (current) use of other medications Postmenopausal osteoporosis Senile osteoporosis [facility]* Diagnosis PMR (polymyalgia rheumatica) (HCC)- Primary [...] Neck pain Cervicalgia [facility]* Diagnosis Neck pain Cervicalgia documented [facility] this [facility] Diagnosis PMR (polymyalgia rheumatica) (HCC)- Primary Polymyalgia rheumatica documented [facility]* Diagnosis Spinal stenosis of cervical region- Primary Spinal stenosis in cervical region Neck pain Cervicalgia Myalgia Mylagia and myositis, unspecified documented [facility] this [facility] Diagnosis Essential hypertension Unspecified essential hypertension [facility] Diagnosis Spinal stenosis of cervical region Spinal stenosis in cervical region documented [facility] this [facility]* Diagnosis Neck pain- Primary Cervicalgia Spinal stenosis of cervical region Spinal stenosis in cervical region documented [facility] this [facility]* Diagnosis Essential hypertension- Primary Unspecified essential hypertension 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) Giant cell arteritis Tobacco abuse Tobacco use disorder Fatigue, unspecified type Vitamin B12 deficiency Other B-complex deficiencies Chronic neck pain Cervicalgia Osteoarthritis of spine with radiculopathy, cervical region DDD (degenerative disc disease), cervical Degeneration of cervical intervertebral disc [facility] Diagnosis Essential tremor Essential and other specified forms of tremor Cervicalgia documented [facility] this [facility]* Diagnosis Onset Date Resolution Status Admit Date Gross hematuria acute May 262024 11:40am [facility] Work Phone: Reason for referral (narrative)* Diagnostic Procedure Only (Routine) - Closed Specialty Diagnoses / Procedures Referred By Contac t Referred To Contact XR IMAGING Diagnoses Neck pain Procedures XR CERV OTHER 4V AP/LAT/OBL RADEX SPINE CERVICAL 4 OR 5 VIEWS Palma Lovett, MIXING TUMBLER OPERATOR.RIP SAW OPERATOR [address] [place] [address] Xr Imaging Referral ID Status Reason Start Date Expiration Date V isits Requested Visits Authorized [id number] Closed Auto-Generate d Referral 12/16/2021 01/15/2023 1 1 [facility] for referral (narrative)* Diagnostic Procedure Only [...] TIBIA & FIBULA 2 VIEWS Wily Abarca APRN.RIP SAW OPERATOR [address] [place] [address] Xr Imaging Referral ID Status Reason Start Date Expiration Date V isits Requested Visits Authorized [id number] Closed Auto-Generate d Referral 07/03/2022 08/02/2023 1 1 [facility] for referral (narrative)* Diagnostic Procedure Only (Routine) - Closed Specialty Diagnoses / Procedures Referred By Contac t Referred To Contact US IMAGING Diagnoses Thyroid nodule Procedures US THYROID/PARATHYROID US SOFT TISSUE HEAD & NECK REAL TIME IMGE DOCM Miah Cottrell DO [address] [place] [address] [place] [address] Referral ID Status Reason Start Date Expiration Date V isits Requested Visits Authorized [id number] Closed Auto-Generate d Referral 03/12/2023 04/10/2024 1 1 [facility] for referral (narrative)* Outpatient Procedure (Routine) - Authorized Specialty Diagnoses / Procedures Referred By Contac t Referred To Contact [facility] Diagnoses Carotid atherosclerosis, bilateral Procedures US CAROTID ARTERIES [facility] DUPLEX SCAN EXTRACRANIAL ART COMPL BI STUDY Miah Cottrell DO [address] [place] [address] [facility] [place] [address] [place] [address] Referral ID Status Reason Start Date Expiration Date Visits Requested Visits Authorized [id number] Authorized Auto-Generat ed Referral 12/17/2023 12/16/2024 1 1 * MRI/CT (Routine) - Authorized Specialty Diagnoses / Procedures Referred By Contac t Referred To Contact CT IMAGING Diagnoses Nodule of lower lobe of left lung Procedures CT CHEST WO IVCON DIAGNOSTIC COMPUTED TOMOGRAPHY THORAX W/O CNTRST Miah Cottrell DO [address] [place] [address] [place] [address] Referral ID Status Reason Start Date Expiration Date Visits Requested Visits Authorized [id number] Authorized Auto-Generat ed Referral 12/17/2023 01/15/2025 1 1 [facility] for referral (narrative)* Diagnostic Procedure Only [...] TIBIA & FIBULA 2 VIEWS Wily Abarca, MIXING TUMBLER OPERATOR.RIP SAW OPERATOR [address] [place] [address] [place] [address] Referral ID Status Reason Start Date Expiration Date V isits Requested Visits Authorized [id number] Closed Auto-Generate d Referral 07/03/2022 08/02/2023 1 1 [facility] for referral (narrative)* Diagnostic Procedure Only (Routine) - Closed Specialty Diagnoses / Procedures Referred By Contac t Referred To Contact XR IMAGING Diagnoses Neck pain Procedures XR CERV OTHER 4V AP/LAT/OBL RADEX SPINE CERVICAL 4 OR 5 VIEWS Palma Lovett, MIXING TUMBLER OPERATOR.RIP SAW OPERATOR [address] [place] [address] [place] [address] Referral ID Status Reason Start Date Expiration Date V isits Requested Visits Authorized [id number] Closed Auto-Generate d Referral 12/16/2021 01/15/2023 1 1 [facility] for referral (narrative)No reason for referral [facility] Work Phone: Reason for visit Narrative* Diagnostic Procedure Only (Routine) - Closed Specialty Diagnoses / Procedures Referred By Contac t Referred To Contact BR IMAGING Diagnoses Abnormal mammogram of left breast Procedures PARRIS DIAGNOSTIC LT DIAGNOSTIC MAMMOGRAPHY COMPUTER-AIDED DETCJ Kymberly Moreau MD [address] [place] [address] [facility] [address] [place] [address] Referral ID Status Reason Start Date Expiration Date V isits Requested Visits Authorized [id number] Closed Auto-Generate d Referral 10/03/2022 11/02/2023 1 1 [facility] for visit Narrative* Diagnostic Procedure Only (Routine) - Closed Specialty Diagnoses / Procedures Referred By Contac t Referred To Contact BR IMAGING Diagnoses Screening mammogram for breast cancer Procedures PARRIS SCREENING SCREENING MAMMOGRAPHY BI 2-VIEW BREAST INC CAD Ronna Quiroz, MIXING TUMBLER OPERATOR.RIP SAW OPERATOR [address] [place] [address] Br [facility] [address] [place] [address] Referral ID Status Reason Start Date Expiration Date V isits Requested Visits Authorized [id number] Closed Auto-Generate d Referral 10/02/2022 11/01/2023 1 1 [facility] for visit Narrative* Diagnostic Procedure Only [...] TIBIA & FIBULA 2 VIEWS Wily Abarca, MIXING TUMBLER OPERATOR.RIP SAW OPERATOR [address] [place] [address] [place] [address] Referral ID Status Reason Start Date Expiration Date V isits Requested Visits Authorized [id number] Closed Auto-Generate d Referral 07/03/2022 08/02/2023 1 1 [facility] for visit Narrative* Diagnostic Procedure Only (Routine) - Closed Specialty Diagnoses / Procedures Referred By Conthoa t Referred To Contact BR IMAGING Diagnoses Encounter for screening mammogram for breast cancer Procedures PARRIS SCREENING W DOMENIC SCREENING DIGITAL BREAST TOMOSYNTHESIS BI SCREENING MAMMOGRAPHY BI 2-VIEW BREAST INC CAD Miah Cottrell DO [address] [place] [address] Phone: tel: fax: [facility] [address] [place] [address] Referral ID Status Reason Start Date Expiration Date V isits Requested Visits Authorized [id number] Closed Auto-Generate d Referral 11/11/2024 12/11/[address] [facility] MRI/CT (Routine) - Closed Specialty Diagnoses / Procedures Referred By Adonayac t Referred To Contact MR IMAGING Diagnoses Spinal stenosis of cervical region Procedures MRI CERVICAL SPINE WO IVCON MRI SPINAL CANAL CERVICAL W/O CONTRAST NAGA PisanoDorothy M, MIXING TUMBLER OPERATOR.RIP SAW OPERATOR [address] [place] [address] Phone: tel: fax: [place] [address] Referral ID Status Reason Start Date Expiration Date V isits Requested Visits Authorized [id number] Closed Auto-Generate d Referral 02/13/2025 03/15/[address] [facility] Summary Purpose Family History No Family History [...] FoundDocuments on File Type Date Recorded Patient Lost And Found Clerk Expl anation ACP-Advance Directive 08/04/2016 2:12 PM Latest Code Status on File Code Status Date Activated Date Inactivated Comments Full Code 08/03/2016 10:48 AM 08/03/2016 10:23 PM Documents on File Type Date Recorded Patient Lost And Found Clerk Expl anation Advance Directives and Livin g Will Advance Directives and Livin g Will 08/04/2016 2:12 PM Power of Retail Equipment Associate Documents on File Type Date Recorded Patient Lost And Found Clerk Expl anation Advance Directive(s) 05/09/2021 9:06 AM Advance Directive(s) 04/15/2021 2:20 PM Advance Directive(s) 03/17/2019 6:24 AM Advance Directive(s) 11/21/2018 11:22 AM Advance Directive(s) 11/08/2018 4:17 PM Documents on File Type Date Recorded Patient Lost And Found Clerk Expl anation Advance Directive(s) 05/09/2021 9:06 AM Advance Directive(s) 04/15/2021 2:20 PM Advance Directive(s) 03/17/2019 6:24 AM Advance Directive(s) 11/21/2018 11:22 AM Advance Directive(s) 11/08/2018 4:17 PM Documents on File Type Date Recorded Patient Lost And Found Clerk Expl anation ACP-Advance Directive ACP-Power of Retail Equipment Associate ACP-Advance Directive 08/04/2016 2:12 PM Latest Code Status on File Code Status Date Activated Date Inactivated Comments Full Code 03/23/2022 7:01 AM Full Code 08/03/2016 10:48 AM 08/03/2016 10:23 PM Advance Directive Response Recorded Date/ Time Advance Directives No June 07, 2018 1:06pm Living Will No November 20, 2020 8:08pm Power of Retail Equipment Associate No November 20 8:08pm Advance Directive Response Recorded Date/ Time Advance Directives No June 07, 2018 1:06pm Advance Directive Response Recorded Date/ Time Do you have a Healthcare Power of Retail Equipment Associate? No June 12, 2025 2:17pm Advance Directives No June 07, 2018 12:06pm Assessments Diagnosis Right ankle pain, unspecified chronicity History of ankle fusion Other postprocedural status Traumatic arthritis of right ankle Reason for Referral Specialty Diagnoses / Procedures Referred By Contac t Referred To Contact [facility] [place] Diagnoses Neck pain Procedures [facility] TO [facility] OFFICE/OUTPATIENT [facility] MDM 60-74 MINUTES Palma Lovett, MIXING TUMBLER OPERATOR.RIP SAW OPERATOR [address] [place] [address] Referral ID Status Reason Start Date Expiration Date Visits Requested Visits Authorized [id number] Authorized PCP Requested Referral 12/16/2021 12/16/2022 1 1 Specialty Diagnoses / Procedures Referred By Contac t Referred To Contact [facility] Diagnoses Neck pain Procedures CONSULT TO PHYSICAL THERAPY PHYSICAL THERAPY EVALUATION HIGH COMPLEX 45 MINS Palma Lovett, MIXING TUMBLER OPERATOR.RIP SAW OPERATOR [address] [place] [address] [facility] [place] [address] [place] [address] Referral ID Status Reason Start Date Expiration Date Visits Requested Visits Authorized [id number] Authorized PCP Requested Referral Auto-Generate d Referral 12/16/2021 12/16/2022 99 99 Specialty Diagnoses / Procedures Referred By Contac t Referred To Contact CT IMAGING Diagnoses New daily persistent headache 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) Hyperlipidemia, mixed Procedures CTA HEAD WO/W IVCON CT ANGIOGRAPHY HEAD W/CONTRAST/NONCONTRAST Miah Cottrell DO [address] [place] [address] Ct Imaging Referral ID Status Reason Start Date Expiration Date V isits Requested Visits Authorized [id number] Closed Auto-Generate d Referral 12/26/2021 01/25/2023 1 1 Specialty Diagnoses / Procedures Referred By Contac t Referred To Contact Diagnoses Essential tremor Procedures PROVIDER ORDERED FOLLOW UP OFFICE/OUTPATIENT [facility] 60-74 MINUTES Marko Wood MD [address] [address] Referral ID Status Reason Start Date Expiration Date Visits Requested Visits Authorized [id number] Authorized PCP Requested Referral 02/01/2023 05/02/2023 1 1 Specialty Diagnoses / Procedures Referred By Contac t Referred To Contact General Surgery Diagnoses Multiple thyroid nodules Procedures CONSULT TO GENERAL SURGERY OFFICE/OUTPATIENT [facility] 60-74 MINUTES Ronna Quiroz, MIXING TUMBLER OPERATOR.RIP SAW OPERATOR [address] [place] [address] Referral ID Status Reason Start Date Expiration Date V isits Requested Visits Authorized [id number] Closed PCP Requested Referral 04/12/2023 04/11/2024 1 1 Specialty Diagnoses / Procedures Referred By Contac t Referred To Contact Diagnoses Essential tremor Procedures PROVIDER ORDERED FOLLOW UP Marko Wood MD [address] [address] Referral ID Status Reason Start Date Expiration Date Visits Requested Visits Authorized [id number] Ref Not Required PCP Requested Referral 04/19/2023 07/18/2023 1 1 Specialty Diagnoses / Procedures Referred By Contac t Referred To Contact [facility] Diagnoses Osteoporosis, postmenopausal Palma Lovett, MIXING TUMBLER OPERATOR.RIP SAW OPERATOR [address] [place] [address] [facility] [address] [place] [address] Referral ID Status Reason Start Date Expiration Date Visits Requested Visits Authorized [id number] Authorized Auto-Generat ed Referral 10/14/2023 1 1 Specialty Diagnoses / Procedures Referred By Contact Referred To Contact [facility] [place] [address] [place] [address] [facility] [address] [place] [address] Referral ID Status Reason Start Date Expiration Date V isits Requested Visits Authorized [id number] Closed Auto-Generate d Referral 01/28/2024 04/27/2024 1 1 Specialty Diagnoses / Procedures Referred By Contac t Referred To Contact Diagnoses Essential tremor Procedures PROVIDER ORDERED FOLLOW UP OFFICE/OUTPATIENT [facility] 60 MINUTES Marko Wood MD [address] [facility] [address] [place] [address] Referral ID Status Reason Start Date Expiration Date Visits Requested Visits Authorized [id number] Authorized PCP Requested Referral 2024 07/13/2024 1 1 Referral ID Status Reason Start Date Expiration Date Visits Requested Visits Authorized [id number] Authorized Auto-Generat ed Referral 11/03/2024 1 1 [...] section and content) DATE CREATED AUTHOR 05/25/2019 [facility] DATE CREATED AUTHOR AUTHOR'S ORGANIZ ATION 04/15/2022 [facility] DATE CREATED AUTHOR AUTHOR'S ORGANIZ ATION 01/27/2023 [facility] DATE CREATED AUTHOR AUTHOR'S ORGANIZ ATION 05/23/2025 [facility] DATE CREATED AUTHOR AUTHOR'S ORGANIZ ATION 07/01/2025 [facility] Source Comments (unrecognize d section and content) In the event this informatio n is protected by the Federal Confidentiality of Alcohol and Drug Abuse Patient Records regulations: The Federal rules restrict any use of the information to criminally investigate or prosecute any alcohol or drug abuse patient.[facility] event this information is protected by the Federal Confidentiality of Alcohol and Drug Abuse Patient Records regulations: The Federal rules restrict any use of the information to criminally investigate or prosecute any alcohol or drug abuse patient.[facility] the event this information is protected by the Federal Confidentiality of Alcohol and Drug Abuse Patient Records regulations: The Federal rules restrict any use of the information to criminally investigate or prosecute any alcohol or drug abuse patient.[facility] the event this information is protected by the Federal Confidentiality of Alcohol and Drug Abuse Patient Records regulations: The Federal rules restrict any use of the information to criminally investigate or prosecute any alcohol or drug abuse patient.[facility] the event this information is protected by the Federal Confidentiality of Alcohol and Drug Abuse Patient Records regulations: The Federal rules restrict any use of the information to criminally investigate or prosecute any alcohol or drug abuse patient.[facility] the event this information is protected by the Federal Confidentiality of Alcohol and Drug Abuse Patient Records regulations: The Federal rules restrict any use of the information to criminally investigate or prosecute any alcohol or drug abuse patient.[facility] the event this information is protected by the Federal Confidentiality of Alcohol and Drug Abuse Patient Records regulations: The Federal rules restrict any use of the information to criminally investigate or prosecute any alcohol or drug abuse patient.[facility] the event this information is protected by the Federal Confidentiality of Alcohol and Drug Abuse Patient Records regulations: The Federal rules restrict any use of the information to criminally investigate or prosecute any alcohol or drug abuse patient.[facility] the event this information is protected by the Federal Confidentiality of Alcohol and Drug Abuse Patient Records regulations: The Federal rules restrict any use of the information to criminally investigate or prosecute any alcohol or drug abuse patient.[facility] the event this information is protected by the Federal Confidentiality of Alcohol and Drug Abuse Patient Records regulations: The Federal rules restrict any use of the information to criminally investigate or prosecute any alcohol or drug abuse patient.[facility] the event this information is protected by the Federal Confidentiality of Alcohol and Drug Abuse Patient Records regulations: The Federal rules restrict any use of the information to criminally investigate or prosecute any alcohol or drug abuse patient.[facility] the event this information is protected by the Federal Confidentiality of Alcohol and Drug Abuse Patient Records regulations: The Federal rules restrict any use of the information to criminally investigate or prosecute any alcohol or drug abuse patient.[facility] the event this information is protected by the Federal Confidentiality of Alcohol and Drug Abuse Patient Records regulations: The Federal rules restrict any use of the information to criminally investigate or prosecute any alcohol or drug abuse patient.[facility] the event this information is protected by the Federal Confidentiality of Alcohol and Drug Abuse Patient Records regulations: The Federal rules restrict any use of the information to criminally investigate or prosecute any alcohol or drug abuse patient.[facility] the event this information is protected by the Federal Confidentiality of Alcohol and Drug Abuse Patient Records regulations: The Federal rules restrict any use of the information to criminally investigate or prosecute any alcohol or drug abuse patient.[facility] the event this information is protected by the Federal Confidentiality of Alcohol and Drug Abuse Patient Records regulations: The Federal rules restrict any use of the information to criminally investigate or prosecute any alcohol or drug abuse patient.[facility] the event this information is protected by the Federal Confidentiality of Alcohol and Drug Abuse Patient Records regulations: The Federal rules restrict any use of the information to criminally investigate or prosecute any alcohol or drug abuse patient.[facility] the event this information is protected by the Federal Confidentiality of Alcohol and Drug Abuse Patient Records regulations: The Federal rules restrict any use of the information to criminally investigate or prosecute any alcohol or drug abuse patient.[facility] the event this information is protected by the Federal Confidentiality of Alcohol and Drug Abuse Patient Records regulations: The Federal rules restrict any use of the information to criminally investigate or prosecute any alcohol or drug abuse patient.[facility] the event this information is protected by the Federal Confidentiality of Alcohol and Drug Abuse Patient Records regulations: The Federal rules restrict any use of the information to criminally investigate or prosecute any alcohol or drug abuse patient.[facility] the event this information is protected by the Federal Confidentiality of Alcohol and Drug Abuse Patient Records regulations: The Federal rules restrict any use of the information to criminally investigate or prosecute any alcohol or drug abuse patient.[facility] the event this information is protected by the Federal Confidentiality of Alcohol and Drug Abuse Patient Records regulations: The Federal rules restrict any use of the information to criminally investigate or prosecute any alcohol or drug abuse patient.[facility] the event this information is protected by the Federal Confidentiality of Alcohol and Drug Abuse Patient Records regulations: The Federal rules restrict any use of the information to criminally investigate or prosecute any alcohol or drug abuse patient.[facility] the event this information is protected by the Federal Confidentiality of Alcohol and Drug Abuse Patient Records regulations: The Federal rules restrict any use of the information to criminally investigate or prosecute any alcohol or drug abuse patient.[facility] the event this information is protected by the Federal Confidentiality of Alcohol and Drug Abuse Patient Records regulations: The Federal rules restrict any use of the information to criminally investigate or prosecute any alcohol or drug abuse patient.[facility] HospitalIn the event this information is protected by the Federal Confidentiality of Alcohol and Drug Abuse Patient Records regulations: The Federal rules restrict any use of the information to criminally investigate or prosecute any alcohol or drug abuse patient.[facility] HospitalIn the event this information is protected by the Federal Confidentiality of Alcohol and Drug Abuse Patient Records regulations: The Federal rules restrict any use of the information to criminally investigate or prosecute any alcohol or drug abuse patient.[facility] HospitalIn the event this information is protected by the Federal Confidentiality of Alcohol and Drug Abuse Patient Records regulations: The Federal rules restrict any use of the information to criminally investigate or prosecute any alcohol or drug abuse patient.[facility] HospitalIn the event this information is protected by the Federal Confidentiality of Alcohol and Drug Abuse Patient Records regulations: The Federal rules restrict any use of the information to criminally investigate or prosecute any alcohol or drug abuse patient.[facility] HospitalIn the event this information is protected by the Federal Confidentiality of Alcohol and Drug Abuse Patient Records regulations: The Federal rules restrict any use of the information to criminally investigate or prosecute any alcohol or drug abuse patient.[facility] HospitalIn the event this information is protected by the Federal Confidentiality of Alcohol and Drug Abuse Patient Records regulations: The Federal rules restrict any use of the information to criminally investigate or prosecute any alcohol or drug abuse patient.[facility] HospitalIn the event this information is protected by the Federal Confidentiality of Alcohol and Drug Abuse Patient Records regulations: The Federal rules restrict any use of the information to criminally investigate or prosecute any alcohol or drug abuse patient.[facility] HospitalIn the event this information is protected by the Federal Confidentiality of Alcohol and Drug Abuse Patient Records regulations: The Federal rules restrict any use of the information to criminally investigate or prosecute any alcohol or drug abuse patient.[facility] HospitalIn the event this information is protected by the Federal Confidentiality of Alcohol and Drug Abuse Patient Records regulations: The Federal rules restrict any use of the information to criminally investigate or prosecute any alcohol or drug abuse patient.[facility] HospitalIn the event this information is protected by the Federal Confidentiality of Alcohol and Drug Abuse Patient Records regulations: The Federal rules restrict any use of the information to criminally investigate or prosecute any alcohol or drug abuse patient.[facility] HospitalIn the event this information is protected by the Federal Confidentiality of Alcohol and Drug Abuse Patient Records regulations: The Federal rules restrict any use of the information to criminally investigate or prosecute any alcohol or drug abuse patient.[facility] HospitalIn the event this information is protected by the Federal Confidentiality of Alcohol and Drug Abuse Patient Records regulations: The Federal rules restrict any use of the information to criminally investigate or prosecute any alcohol or drug abuse patient.[facility] HospitalIn the event this information is protected by the Federal Confidentiality of Alcohol and Drug Abuse Patient Records regulations: The Federal rules restrict any use of the information to criminally investigate or prosecute any alcohol or drug abuse patient.[facility] HospitalIn the event this information is protected by the Federal Confidentiality of Alcohol and Drug Abuse Patient Records regulations: The Federal rules restrict any use of the information to criminally investigate or prosecute any alcohol or drug abuse patient.[facility] HospitalIn the event this information is protected by the Federal Confidentiality of Alcohol and Drug Abuse Patient Records regulations: The Federal rules restrict any use of the information to criminally investigate or prosecute any alcohol or drug abuse patient.[facility] HospitalIn the event this information is protected by the Federal Confidentiality of Alcohol and Drug Abuse Patient Records regulations: The Federal rules restrict any use of the information to criminally investigate or prosecute any alcohol or drug abuse patient.[facility] HospitalIn the event this information is protected by the Federal Confidentiality of Alcohol and Drug Abuse Patient Records regulations: The Federal rules restrict any use of the information to criminally investigate or prosecute any alcohol or drug abuse patient.[facility] HospitalIn the event this information is protected by the Federal Confidentiality of Alcohol and Drug Abuse Patient Records regulations: The Federal rules restrict any use of the information to criminally investigate or prosecute any alcohol or drug abuse patient.[facility] HospitalIn the event this information is protected by the Federal Confidentiality of Alcohol and Drug Abuse Patient Records regulations: The Federal rules restrict any use of the information to criminally investigate or prosecute any alcohol or drug abuse patient.[facility] HospitalIn the event this information is protected by the Federal Confidentiality of Alcohol and Drug Abuse Patient Records regulations: The Federal rules restrict any use of the information to criminally investigate or prosecute any alcohol or drug abuse patient.[facility] HospitalIn the event this information is protected by the Federal Confidentiality of Alcohol and Drug Abuse Patient Records regulations: The Federal rules restrict any use of the information to criminally investigate or prosecute any alcohol or drug abuse patient.[facility] HospitalIn the event this information is protected by the Federal Confidentiality of Alcohol and Drug Abuse Patient Records regulations: The Federal rules restrict any use of the information to criminally investigate or prosecute any alcohol or drug abuse patient.[facility] HospitalIn the event this information is protected by the Federal Confidentiality of Alcohol and Drug Abuse Patient Records regulations: The Federal rules restrict any use of the information to criminally investigate or prosecute any alcohol or drug abuse patient.[facility] HospitalIn the event this information is protected by the Federal Confidentiality of Alcohol and Drug Abuse Patient Records regulations: The Federal rules restrict any use of the information to criminally investigate or prosecute any alcohol or drug abuse patient.[facility] HospitalIn the event this information is protected by the Federal Confidentiality of Alcohol and Drug Abuse Patient Records regulations: The Federal rules restrict any use of the information to criminally investigate or prosecute any alcohol or drug abuse patient.[facility] HospitalIn the event this information is protected by the Federal Confidentiality of Alcohol and Drug Abuse Patient Records regulations: The Federal rules restrict any use of the information to criminally investigate or prosecute any alcohol or drug abuse patient.[facility] HospitalIn the event this information is protected by the Federal Confidentiality of Alcohol and Drug Abuse Patient Records regulations: The Federal rules restrict any use of the information to criminally investigate or prosecute any alcohol or drug abuse patient.[facility] HospitalIn the event this information is protected by the Federal Confidentiality of Alcohol and Drug Abuse Patient Records regulations: The Federal rules restrict any use of the information to criminally investigate or prosecute any alcohol or drug abuse patient.[facility] HospitalIn the event this information is protected by the Federal Confidentiality of Alcohol and Drug Abuse Patient Records regulations: The Federal rules restrict any use of the information to criminally investigate or prosecute any alcohol or drug abuse patient.[facility] HospitalIn the event this information is protected by the Federal Confidentiality of Alcohol and Drug Abuse Patient Records regulations: The Federal rules restrict any use of the information to criminally investigate or prosecute any alcohol or drug abuse patient.[facility] HospitalIn the event this information is protected by the Federal Confidentiality of Alcohol and Drug Abuse Patient Records regulations: The Federal rules restrict any use of the information to criminally investigate or prosecute any alcohol or drug abuse patient.[facility] HospitalIn the event this information is protected by the Federal Confidentiality of Alcohol and Drug Abuse Patient Records regulations: The Federal rules restrict any use of the information to criminally investigate or prosecute any alcohol or drug abuse patient.[facility] HospitalIn the event this information is protected by the Federal Confidentiality of Alcohol and Drug Abuse Patient Records regulations: The Federal rules restrict any use of the information to criminally investigate or prosecute any alcohol or drug abuse patient.[facility] HospitalIn the event this information is protected by the Federal Confidentiality of Alcohol and Drug Abuse Patient Records regulations: The Federal rules restrict any use of the information to criminally investigate or prosecute any alcohol or drug abuse patient.[facility] HospitalIn the event this information is protected by the Federal Confidentiality of Alcohol and Drug Abuse Patient Records regulations: The Federal rules restrict any use of the information to criminally investigate or prosecute any alcohol or drug abuse patient.[facility] HospitalIn the event this information is protected by the Federal Confidentiality of Alcohol and Drug Abuse Patient Records regulations: The Federal rules restrict any use of the information to criminally investigate or prosecute any alcohol or drug abuse patient.[facility] HospitalIn the event this information is protected by the Federal Confidentiality of Alcohol and Drug Abuse Patient Records regulations: The Federal rules restrict any use of the information to criminally investigate or prosecute any alcohol or drug abuse patient.[facility] HospitalIn the event this information is protected by the Federal Confidentiality of Alcohol and Drug Abuse Patient Records regulations: The Federal rules restrict any use of the information to criminally investigate or prosecute any alcohol or drug abuse patient.[facility] HospitalIn the event this information is protected by the Federal Confidentiality of Alcohol and Drug Abuse Patient Records regulations: The Federal rules restrict any use of the information to criminally investigate or prosecute any alcohol or drug abuse patient.[facility] HospitalIn the event this information is protected by the Federal Confidentiality of Alcohol and Drug Abuse Patient Records regulations: The Federal rules restrict any use of the information to criminally investigate or prosecute any alcohol or drug abuse patient.[facility] HospitalIn the event this information is protected by the Federal Confidentiality of Alcohol and Drug Abuse Patient Records regulations: The Federal rules restrict any use of the information to criminally investigate or prosecute any alcohol or drug abuse patient.[facility] HospitalIn the event this information is protected by the Federal Confidentiality of Alcohol and Drug Abuse Patient Records regulations: The Federal rules restrict any use of the information to criminally investigate or prosecute any alcohol or drug abuse patient.[facility] HospitalIn the event this information is protected by the Federal Confidentiality of Alcohol and Drug Abuse Patient Records regulations: The Federal rules restrict any use of the information to criminally investigate or prosecute any alcohol or drug abuse patient.[facility] HospitalIn the event this information is protected by the Federal Confidentiality of Alcohol and Drug Abuse Patient Records regulations: The Federal rules restrict any use of the information to criminally investigate or prosecute any alcohol or drug abuse patient.[facility] HospitalIn the event this information is protected by the Federal Confidentiality of Alcohol and Drug Abuse Patient Records regulations: The Federal rules restrict any use of the information to criminally investigate or prosecute any alcohol or drug abuse patient.[facility] HospitalIn the event this information is protected by the Federal Confidentiality of Alcohol and Drug Abuse Patient Records regulations: The Federal rules restrict any use of the information to criminally investigate or prosecute any alcohol or drug abuse patient.[facility] HospitalIn the event this information is protected by the Federal Confidentiality of Alcohol and Drug Abuse Patient Records regulations: The Federal rules restrict any use of the information to criminally investigate or prosecute any alcohol or drug abuse patient.[facility] HospitalIn the event this information is protected by the Federal Confidentiality of Alcohol and Drug Abuse Patient Records regulations: The Federal rules restrict any use of the information to criminally investigate or prosecute any alcohol or drug abuse patient.[facility] HospitalIn the event this information is protected by the Federal Confidentiality of Alcohol and Drug Abuse Patient Records regulations: The Federal rules restrict any use of the information to criminally investigate or prosecute any alcohol or drug abuse patient.[facility] HospitalIn the event this information is protected by the Federal Confidentiality of Alcohol and Drug Abuse Patient Records regulations: The Federal rules restrict any use of the information to criminally investigate or prosecute any alcohol or drug abuse patient.[facility] HospitalIn the event this information is protected by the Federal Confidentiality of Alcohol and Drug Abuse Patient Records regulations: The Federal rules restrict any use of the information to criminally investigate or prosecute any alcohol or drug abuse patient.[facility] HospitalIn the event this information is protected by the Federal Confidentiality of Alcohol and Drug Abuse Patient Records regulations: The Federal rules restrict any use of the information to criminally investigate or prosecute any alcohol or drug abuse patient.[facility] HospitalIn the event this information is protected by the Federal Confidentiality of Alcohol and Drug Abuse Patient Records regulations: The Federal rules restrict any use of the information to criminally investigate or prosecute any alcohol or drug abuse patient.[facility] HospitalIn the event this information is protected by the Federal Confidentiality of Alcohol and Drug Abuse Patient Records regulations: The Federal rules restrict any use of the information to criminally investigate or prosecute any alcohol or drug abuse patient.[facility] HospitalIn the event this information is protected by the Federal Confidentiality of Alcohol and Drug Abuse Patient Records regulations: The Federal rules restrict any use of the information to criminally investigate or prosecute any alcohol or drug abuse patient.[facility] HospitalIn the event this information is protected by the Federal Confidentiality of Alcohol and Drug Abuse Patient Records regulations: The Federal rules restrict any use of the information to criminally investigate or prosecute any alcohol or drug abuse patient.[facility] HospitalIn the event this information is protected by the Federal Confidentiality of Alcohol and Drug Abuse Patient Records regulations: The Federal rules restrict any use of the information to criminally investigate or prosecute any alcohol or drug abuse patient.[facility] HospitalIn the event this information is protected by the Federal Confidentiality of Alcohol and Drug Abuse Patient Records regulations: The Federal rules restrict any use of the information to criminally investigate or prosecute any alcohol or drug abuse patient.[facility] HospitalIn the event this information is protected by the Federal Confidentiality of Alcohol and Drug Abuse Patient Records regulations: The Federal rules restrict any use of the information to criminally investigate or prosecute any alcohol or drug abuse patient.[facility] HospitalIn the event this information is protected by the Federal Confidentiality of Alcohol and Drug Abuse Patient Records regulations: The Federal rules restrict any use of the information to criminally investigate or prosecute any alcohol or drug abuse patient.[facility] HospitalIn the event this information is protected by the Federal Confidentiality of Alcohol and Drug Abuse Patient Records regulations: The Federal rules restrict any use of the information to criminally investigate or prosecute any alcohol or drug abuse patient.[facility] HospitalIn the event this information is protected by the Federal Confidentiality of Alcohol and Drug Abuse Patient Records regulations: The Federal rules restrict any use of the information to criminally investigate or prosecute any alcohol or drug abuse patient.[facility] HospitalIn the event this information is protected by the Federal Confidentiality of Alcohol and Drug Abuse Patient Records regulations: The Federal rules restrict any use of the information to criminally investigate or prosecute any alcohol or drug abuse patient.[facility] HospitalIn the event this information is protected by the Federal Confidentiality of Alcohol and Drug Abuse Patient Records regulations: The Federal rules restrict any use of the information to criminally investigate or prosecute any alcohol or drug abuse patient.[facility] HospitalIn the event this information is protected by the Federal Confidentiality of Alcohol and Drug Abuse Patient Records regulations: The Federal rules restrict any use of the information to criminally investigate or prosecute any alcohol or drug abuse patient.[facility] HospitalIn the event this information is protected by the Federal Confidentiality of Alcohol and Drug Abuse Patient Records regulations: The Federal rules restrict any use of the information to criminally investigate or prosecute any alcohol or drug abuse patient.[facility] HospitalIn the event this information is protected by the Federal Confidentiality of Alcohol and Drug Abuse Patient Records regulations: The Federal rules restrict any use of the information to criminally investigate or prosecute any alcohol or drug abuse patient.[facility] HospitalIn the event this information is protected by the Federal Confidentiality of Alcohol and Drug Abuse Patient Records regulations: The Federal rules restrict any use of the information to criminally investigate or prosecute any alcohol or drug abuse patient.[facility] HospitalIn the event this information is protected by the Federal Confidentiality of Alcohol and Drug Abuse Patient Records regulations: The Federal rules restrict any use of the information to criminally investigate or prosecute any alcohol or drug abuse patient.[facility] HospitalIn the event this information is protected by the Federal Confidentiality of Alcohol and Drug Abuse Patient Records regulations: The Federal rules restrict any use of the information to criminally investigate or prosecute any alcohol or drug abuse patient.[facility] HospitalIn the event this information is protected by the Federal Confidentiality of Alcohol and Drug Abuse Patient Records regulations: The Federal rules restrict any use of the information to criminally investigate or prosecute any alcohol or drug abuse patient.[facility] HospitalIn the event this information is protected by the Federal Confidentiality of Alcohol and Drug Abuse Patient Records regulations: The Federal rules restrict any use of the information to criminally investigate or prosecute any alcohol or drug abuse patient.[facility] HospitalIn the event this information is protected by the Federal Confidentiality of Alcohol and Drug Abuse Patient Records regulations: The Federal rules restrict any use of the information to criminally investigate or prosecute any alcohol or drug abuse patient.[facility] HospitalIn the event this information is protected by the Federal Confidentiality of Alcohol and Drug Abuse Patient Records regulations: The Federal rules restrict any use of the information to criminally investigate or prosecute any alcohol or drug abuse patient.[facility] HospitalIn the event this information is protected by the Federal Confidentiality of Alcohol and Drug Abuse Patient Records regulations: The Federal rules restrict any use of the information to criminally investigate or prosecute any alcohol or drug abuse patient.[facility] HospitalIn the event this information is protected by the Federal Confidentiality of Alcohol and Drug Abuse Patient Records regulations: The Federal rules restrict any use of the information to criminally investigate or prosecute any alcohol or drug abuse patient.[facility] HospitalIn the event this information is protected by the Federal Confidentiality of Alcohol and Drug Abuse Patient Records regulations: The Federal rules restrict any use of the information to criminally investigate or prosecute any alcohol or drug abuse patient.[facility] HospitalIn the event this information is protected by the Federal Confidentiality of Alcohol and Drug Abuse Patient Records regulations: The Federal rules restrict any use of the information to criminally investigate or prosecute any alcohol or drug abuse patient.[facility] HospitalIn the event this information is protected by the Federal Confidentiality of Alcohol and Drug Abuse Patient Records regulations: The Federal rules restrict any use of the information to criminally investigate or prosecute any alcohol or drug abuse patient.[facility] HospitalIn the event this information is protected by the Federal Confidentiality of Alcohol and Drug Abuse Patient Records regulations: The Federal rules restrict any use of the information to criminally investigate or prosecute any alcohol or drug abuse patient.[facility] HospitalIn the event this information is protected by the Federal Confidentiality of Alcohol and Drug Abuse Patient Records regulations: The Federal rules restrict any use of the information to criminally investigate or prosecute any alcohol or drug abuse patient.[facility] HospitalIn the event this information is protected by the Federal Confidentiality of Alcohol and Drug Abuse Patient Records regulations: The Federal rules restrict any use of the information to criminally investigate or prosecute any alcohol or drug abuse patient.[facility] Care Teams (unrecognized sec tion and content) Insurance Sales Professional Relationship Specialty Start Date End Date Miah Cottrell DO [address] [place] [address] PCP - General Family Practice 11/05/15 Insurance Sales Professional Relationship Specialty Start Date End Date Miah Cottrell, DO [address] [place] [address] PCP - General Family Practice 11/05/15 Insurance Sales Professional Relationship Specialty Start Date End Date Miah Cottrell, DO [address] [place] [address] PCP - General Family Practice 11/05/15 Insurance Sales Professional Relationship Specialty Start Date End Date Miah Cottrell, DO [address] [place] [address] PCP - General Family Practice 11/05/15 Insurance Sales Professional Relationship Specialty Start Date End Date Miah Cottrell PCP - General 07/31/16 Insurance Sales Professional Relationship Specialty Start Date End Date Miah Cottrell, DO [address] [place] [address] PCP - General Family Practice 11/05/15 Insurance Sales Professional Relationship Specialty Start Date End Date Miah Cottrell, DO [address] [place] [address] PCP - General Family Practice 11/05/15 Insurance Sales Professional Relationship Specialty Start Date End Date Miah Cottrell, DO [address] [place] [address] PCP - General Family Practice 11/05/15 Insurance Sales Professional Relationship Specialty Start Date End Date Miah Cottrell, DO [address] [place] [address] PCP - General Family Practice 11/05/15 Insurance Sales Professional Relationship Specialty Start Date End Date Miah Cottrell PCP - General 07/31/16 Insurance Sales Professional Relationship Specialty Start Date End Date Miah Cottrell, DO [address] [place] [address] PCP - General Family Practice 11/05/15 Insurance Sales Professional Relationship Specialty Start Date End Date Miah Cottrell, DO [address] [place] [address] PCP - General Family Practice 11/05/15 Insurance Sales Professional Relationship Specialty Start Date End Date Miah Cottrell PCP - General 07/31/16 Insurance Sales Professional Relationship Specialty Start Date End Date Miah Cottrell, DO [address] [place] [address] PCP - General Family Practice 11/05/15 Insurance Sales Professional Relationship Specialty Start Date End Date Miah Cottrell, DO [address] [place] [address] PCP - General Family Practice 11/05/15 Insurance Sales Professional Relationship Specialty Start Date End Date Miah Cottrell, DO [address] [place] [address] PCP - General Family Practice 11/05/15 Insurance Sales Professional Relationship Specialty Start Date End Date Miah Cottrell, DO [address] [place] [address] PCP - General Family Practice 11/05/15 Insurance Sales Professional Relationship Specialty Start Date End Date Miah Cottrell, DO [address] [place] [address] PCP - General Family Medicine 11/05/15 Insurance Sales Professional Relationship Specialty Start Date End Date Miah Cottrell, DO [address] [place] [address] PCP - General Family Medicine 11/05/15 Insurance Sales Professional Relationship Specialty Start Date End Date Miah Cottrell, DO [address] [place] [address] PCP - General Family Medicine 11/05/15 Insurance Sales Professional Relationship Specialty Start Date End Date Miah Cottrell, DO [address] [place] [address] PCP - General Family Medicine 11/05/15 Insurance Sales Professional Relationship Specialty Start Date End Date Miah Cottrell, DO [address] [place] [address] PCP - General Family Medicine 11/05/15 Insurance Sales Professional Relationship Specialty Start Date End Date Miah Cottrell, DO [address] [place] [address] PCP - General Family Medicine 11/05/15 Insurance Sales Professional Relationship Specialty Start Date End Date Miah Cottrell, DO [address] [place] [address] PCP - General Family Medicine 11/05/15 Insurance Sales Professional Relationship Specialty Start Date End Date Miah Cottrell, DO [address] [place] [address] PCP - General Family Medicine 11/05/15 Insurance Sales Professional Relationship Specialty Start Date End Date Miah Cottrell, DO [address] [place] [address] PCP - General Family Medicine 11/05/15 Insurance Sales Professional Relationship Specialty Start Date End Date Miah Cottrell, DO [address] [place] [address] PCP - General Family Medicine 11/05/15 Insurance Sales Professional Relationship Specialty Start Date End Date Miah Cottrell, DO [address] [place] [address] PCP - General Family Medicine 11/05/15 Insurance Sales Professional Relationship Specialty Start Date End Date Miah Cottrell DO [address] [place] [address] PCP - General Family Medicine 11/05/15 Insurance Sales Professional Relationship Specialty Start Date End Date Miah Cottrell DO [address] [place] [address] PCP - General Family Medicine 11/05/15 Insurance Sales Professional Relationship Specialty Start Date End Date Miah Cottrell DO [address] [place] [address] PCP - General Family Medicine 11/05/15 Insurance Sales Professional Relationship Specialty Start Date End Date Miah Cottrell DO [address] [place] [address] PCP - General Family Medicine 11/05/15 Insurance Sales Professional Relationship Specialty Start Date End Date Miah Cottrell DO [address] [place] [address] PCP - General Family Medicine 11/05/15 Insurance Sales Professional Relationship Specialty Start Date End Date Miah Cottrell DO [address] [place] [address] PCP - General Family Medicine 11/05/15 Insurance Sales Professional Relationship Specialty Start Date End Date Miah Cottrell DO [address] [place] [address] PCP - General Family Medicine 11/05/15 Insurance Sales Professional Relationship Specialty Start Date End Date Miah Cottrell DO [address] [place] [address] PCP - General Family Medicine 11/05/15 Team Status: Active Member Role Status Dates Dr. Miah Cottrell DO Family Provider Active Dr. Miah Cottrell DO Primary Care Provider Active Team Status: Inactive Member Role Status Dates Dr. Miah Cottrell DO Primary Care Provider Active Miah RICHARD Attending Provider Active Insurance Sales Professional Relationship Specialty Start Date End Date Miah Cottrell DO [address] [place] [address] PCP - General Family Medicine 11/05/15 Insurance Sales Professional Relationship Specialty Start Date End Date Miah Cottrell DO [address] [place] [address] PCP - General Family Medicine 11/05/15 Insurance Sales Professional Relationship Specialty Start Date End Date Miah Cottrell DO [address] [place] [address] PCP - General Family Medicine 11/05/15 Insurance Sales Professional Relationship Specialty Start Date End Date Miah Cottrell DO [address] [place] [address] PCP - General Family Medicine 11/05/15 Insurance Sales Professional Relationship Specialty Start Date End Date Miah Cottrell DO [address] [place] [address] PCP - General Family Medicine 11/05/15 Insurance Sales Professional Relationship Specialty Start Date End Date Miah Cottrell DO [address] [place] [address] PCP - General Family Medicine 11/05/15 Insurance Sales Professional Relationship Specialty Start Date End Date Miah Cottrell DO [address] [place] [address] PCP - General Family Medicine 11/05/15 Insurance Sales Professional Relationship Specialty Start Date End Date Miah Cottrell DO [address] [facility] [place] [address] PCP - General Family Medicine 11/05/15 Insurance Sales Professional Relationship Specialty Start Date End Date Miah Cottrell DO [address] [place] [address] PCP - General Family Medicine 11/05/15 Insurance Sales Professional Relationship Specialty Start Date End Date Miah Cottrell DO [address] [facility] [place] [address] PCP - General Family Medicine 11/05/15 Insurance Sales Professional Relationship Specialty Start Date End Date Miah Cottrell DO [address] [place] [address] PCP - General Family Medicine 11/05/15 Insurance Sales Professional Relationship Specialty Start Date End Date Miah Cottrell DO [address] [facility] [place] [place] [address] PCP - General Family Medicine 11/05/15 Team Status: Inactive Member Role Status Dates Dr. Miah Cottrell DO Primary Care Provider Active Dr. Mickey Hagen MD Attending Provider, Referring Provider Active Insurance Sales Professional Relationship Specialty Start Date End Date Miah Cottrell DO [address] [facility] [place] [place] [address] PCP - General Family Medicine 11/05/15 Insurance Sales Professional Relationship Specialty Start Date End Date Miah Cottrell DO [address] [facility] [place] [address] PCP - General Family Medicine 11/05/15 Insurance Sales Professional Relationship Specialty Start Date End Date Miah Cottrell DO [address] [place] [address] PCP - General Family Medicine 11/05/15 Insurance Sales Professional Relationship Specialty Start Date End Date Miah Cottrell, [address] [place] [address] PCP - General Family Medicine 11/05/15 Insurance Sales Professional Relationship Specialty Start Date End Date Miah Cottrell DO [address] [place] [address] PCP - General Family Medicine 11/05/15 Insurance Sales Professional Relationship Specialty Start Date End Date Miah Cottrell DO [address] [place] [address] PCP - General Family Medicine 11/05/15 Insurance Sales Professional Relationship Specialty Start Date End Date Miah Cottrell DO [address] [place] [address] PCP - General Family Medicine 11/05/15 Insurance Sales Professional Relationship Specialty Start Date End Date Miah Cottrell DO [address] [place] [address] PCP - General Family Medicine 11/05/15 Insurance Sales Professional Relationship Specialty Start Date End Date Miah Cottrell DO [address] [place] [address] PCP - General Family Medicine 11/05/15 Insurance Sales Professional Relationship Specialty Start Date End Date Miah Cottrell DO [address] [place] [address] PCP - General Family Medicine 11/05/15 Insurance Sales Professional Relationship Specialty Start Date End Date Miah Cottrell DO [address] [place] [address] PCP - General Family Medicine 11/05/15 Insurance Sales Professional Relationship Specialty Start Date End Date Miah Cottrell DO [address] [place] [address] PCP - General Family Medicine 11/05/15 Insurance Sales Professional Relationship Specialty Start Date End Date Miah Cottrell DO [address] [facility] [place] [address] PCP - General Family Medicine 11/05/15 Insurance Sales Professional Relationship Specialty Start Date End Date Miah Cottrell DO [address] [place] [address] PCP - General Family Medicine 11/05/15 Insurance Sales Professional Relationship Specialty Start Date End Date Miah Cottrell DO [address] [place] [address] PCP - General Family Medicine 11/05/15 Insurance Sales Professional Relationship Specialty Start Date End Date Miah Cottrell DO [address] [facility] [address] PCP - General Family Medicine 11/05/15 Insurance Sales Professional Relationship Specialty Start Date End Date Miah Cottrell DO [address] [place] [address] PCP - General Family Medicine 11/05/15 Ronna Quiroz APRN.RIP SAW OPERATOR [address] [place] [address] Neurophysiologist Family [facility] 07/27/24 Wily Abarca, MIXING TUMBLER OPERATOR.RIP SAW OPERATOR [address] [place] [address] Neurophysiologist Family Medicine 07/27/24 Insurance Sales Professional Relationship Specialty Start Date End Date Miah Cottrell DO [address] [place] [address] PCP - General Family Medicine 11/05/15 Ronna Quiroz, MIXING TUMBLER OPERATOR.RIP SAW OPERATOR [address] [facility] [place] [address] [facility] 07/[facility]/24 Wily Abarca, MIXING TUMBLER OPERATOR.RIP SAW OPERATOR [address] [facility] [place] [address] [facility] 07/27/24 Insurance Sales Professional Relationship Specialty Start Date End Date Miah Cottrell DO [address] [place] [address] PCP - General Family Medicine 11/05/15 Ronna Quiroz, MIXING TUMBLER OPERATOR.RIP SAW OPERATOR [address] [place] [address] Neurophysiologist Family Medicine 07/27/24 Wily Abarca, MIXING TUMBLER OPERATOR.RIP SAW OPERATOR [address] [facility] [place] [address] [facility] 07/27/24 Insurance Sales Professional Relationship Specialty Start Date End Date Miah Cottrell DO [address] [facility] [place] [address] PCP - General Family Medicine 11/05/15 Ronna Quiroz, MIXING TUMBLER OPERATOR.RIP SAW OPERATOR [address] [place] [address] [facility] 07/27/24 Wily Abarca, MIXING TUMBLER OPERATOR.RIP SAW OPERATOR [address] [place] [address] [facility] 07/27/24 Insurance Sales Professional Relationship Specialty Start Date End Date Miah Cottrell DO [address] [place] [address] PCP - General Family Medicine 11/05/15 Wily Abarca, MIXING TUMBLER OPERATOR.RIP SAW OPERATOR [address] [place] [address] [facility] 07/27/24 Insurance Sales Professional Relationship Specialty Start Date End Date Miah Cottrell DO [address] [place] [address] PCP - General Family Medicine 11/05/15 Wily Abarca, MIXING TUMBLER OPERATOR.RIP SAW OPERATOR [address] [place] [address] [facility] 07/27/24 Insurance Sales Professional Relationship Specialty Start Date End Date Miah Cottrell DO [address] [place] [address] PCP - General Family Medicine 11/05/15 Wily Abarca, MIXING TUMBLER OPERATOR.RIP SAW OPERATOR [address] [place] [address] [facility] 07/27/24 Insurance Sales Professional Relationship Specialty Start Date End Date Miah Cottrell DO [address] [place] [address] PCP - General Family Medicine 11/05/15 TevinWily, MIXING TUMBLER OPERATOR.RIP SAW OPERATOR [address] [facility] [place] [address] [facility] 07/27/24 Insurance Sales Professional Relationship Specialty Start Date End Date Miah Cottrell DO [address] [facility] [place] [address] PCP - General Family Medicine 11/05/15 TevinWily, MIXING TUMBLER OPERATOR.RIP SAW OPERATOR [address] [place] [address] [facility] 07/27/24 Insurance Sales Professional Relationship Specialty Start Date End Date Miah Cottrell DO [address] [facility] [place] [address] PCP - General Family Medicine 11/05/15 TevinWily, MIXING TUMBLER OPERATOR.RIP SAW OPERATOR [address] [facility] [place] [address] [facility] 07/27/24 Insurance Sales Professional Relationship Specialty Start Date End Date Miah Cottrell DO [address] [facility] [place] [address] PCP - General Family Medicine 11/05/15 TevinWily, MIXING TUMBLER OPERATOR.RIP SAW OPERATOR [address] [place] [address] [facility] 07/27/24 Cammie Fuentes, MIXING TUMBLER OPERATOR.RIP SAW OPERATOR [address] [place] [address] Neurophysiologist Family [facility] 02/02/25 Insurance Sales Professional Relationship Specialty Start Date End Date Miah Cottrell DO [address] [place] [address] PCP - General Family Medicine 11/05/15 TevinWily, MIXING TUMBLER OPERATOR.RIP SAW OPERATOR [address] [place] [address] Neurophysiologist Family Medicine 07/27/24 Cammie Fuentes, MIXING TUMBLER OPERATOR.RIP SAW OPERATOR [address] [place] [address] [facility] 02/02/25 Insurance Sales Professional Relationship Specialty Start Date End Date Miah Cottrell DO [address] [place] [address] PCP - General Family Medicine 11/05/15 TevinWily, MIXING TUMBLER OPERATOR.RIP SAW OPERATOR [address] [place] [address] Neurophysiologist Family Medicine 07/27/24 Cammie Fuentes, MIXING TUMBLER OPERATOR.RIP SAW OPERATOR [address] [place] [address] [facility]ly [facility] Family [facility] 02/02/25 Insurance Sales Professional Relationship Specialty Start Date End Date Miah Cottrell DO [address] [place] [address] PCP - General Family Medicine 11/05/15 Wily Abarca, MIXING TUMBLER OPERATOR.RIP SAW OPERATOR [address] [place] [address] Neurophysiologist Family Medicine 07/27/24 Cammie Fuentes APRN.RIP SAW OPERATOR [address] [place] [address] Neurophysiologist Family Medicine 02/02/25 Insurance Sales Professional Relationship Specialty Start Date End Date Miah Cottrell DO [address] [place] [address] PCP - General Family Medicine 11/05/15 Wily Abarca, MIXING TUMBLER OPERATOR.RIP SAW OPERATOR [address] [place] [address] Neurophysiologist Family Medicine 07/27/24 Cammie Fuentes, MIXING TUMBLER OPERATOR.RIP SAW OPERATOR [address] [place] [address] Neurophysiologist Family [facility] 02/02/25 Insurance Sales Professional Relationship Specialty Start Date End Date Miah Cottrell DO [address] [place] [address] PCP - General Family Medicine 11/05/15 Wily Abarca, MIXING TUMBLER OPERATOR.RIP SAW OPERATOR [address] [place] [address] Neurophysiologist Family Medicine 07/27/24 Cammie Fuentes, MIXING TUMBLER OPERATOR.RIP SAW OPERATOR [address] [place] [address] Neurophysiologist Family [facility] 02/02/25 Insurance Sales Professional Relationship Specialty Start Date End Date Miah Cottrell DO [address] [place] [address] PCP - General Family Medicine 11/05/15 Wily Abarca, MIXING TUMBLER OPERATOR.RIP SAW OPERATOR [address] [place] [address] Neurophysiologist Family Medicine 07/27/24 Cammie Fuentes, MIXING TUMBLER OPERATOR.RIP SAW OPERATOR [address] [place] [address] Neurophysiologist Family [facility] 02/02/25 Insurance Sales Professional Relationship Specialty Start Date End Date Miah Cottrell DO [address] [place] [address] PCP - General Family Medicine 11/05/15 Wily Abarca, MIXING TUMBLER OPERATOR.RIP SAW OPERATOR [address] [place] [address] Neurophysiologist Family Medicine 07/27/24 Camime Fuentes, MIXING TUMBLER OPERATOR.RIP SAW OPERATOR [address] [place] [address] [facility] 02/02/25 Insurance Sales Professional Relationship Specialty Start Date End Date Miah Cottrell DO [address] [place] [address] PCP - General Family Medicine 11/05/15 Wily Abarca, MIXING TUMBLER OPERATOR.RIP SAW OPERATOR [address] [place] [address] Neurophysiologist Family Medicine 07/27/24 Cammie Fuentes, MIXING TUMBLER OPERATOR.RIP SAW OPERATOR [address] [place] [address] [facility] 02/02/25 Insurance Sales Professional Relationship Specialty Start Date End Date Miah Cottrell DO [address] [place] [address] PCP - General Family Medicine 11/05/15 [facility], MIXING TUMBLER OPERATOR.RIP SAW OPERATOR [address] [place] [address] [facility] 07/27/24 GinaCammie, MIXING TUMBLER OPERATOR.RIP SAW OPERATOR [address] [place] [address] [facility] 02/02/25 Insurance Sales Professional Relationship Specialty Start Date End Date Miah Cottrell DO [address] [place] [address] PCP - General Family Medicine 11/05/15 [facility], MIXING TUMBLER OPERATOR.RIP SAW OPERATOR [address] [place] [address] [facility] 07/27/24 Cammie Fuentes, MIXING TUMBLER OPERATOR.RIP SAW OPERATOR [address] [place] [address] [facility] 02/02/25 Insurance Sales Professional Relationship Specialty Start Date End Date Miah Cottrell DO [address] [place] [address] PCP - General Family Medicine 11/05/15 [facility], MIXING TUMBLER OPERATOR.RIP SAW OPERATOR [address] [place] [address] [facility] Family [facility] 07/27/24 Cammie Fuentes, MIXING TUMBLER OPERATOR.RIP SAW OPERATOR [address] [place], [place] [address] [facility] 02/02/25 Insurance Sales Professional Relationship Specialty Start Date End Date Miah Cottrell DO [address] [place], [place] [address] PCP - General Family Medicine 11/05/15 Wily Abarca, MIXING TUMBLER OPERATOR.RIP SAW OPERATOR [address] [place], [place] [address] [facility] 07/27/24 Cammie Fuentes, MIXING TUMBLER OPERATOR.RIP SAW OPERATOR [address] [place], [place] [address] [facility] 02/02/25 Team Status: Active Member Role/Relationship [...] CT ANGIOGRAPHY HEAD W/CONTRAST/NONCONTRAST Miah Cottrell, DO [address] [place] [address] Ct Imaging Referral ID Status Reason Start Date Expiration Date V isits Requested Visits Authorized [id number] Closed Auto-Generate d Referral 12/26/2021 01/25/2023 1 [...] HIGH MDM 60-74 MINUTES Marko Wood MD [facility] [address] [facility] [address] [place] [address] Referral ID Status Reason Start Date Expiration Date V isits Requested Visits Authorized [id number] Closed PCP Requested Referral 02/01/2023 05/02/2023 1 [...] REAL TIME IMGE DOCM Miah Cottrell, DO [address] [place] [address] Us Imaging [facility] Referral ID Status Reason Start Date Expiration Date V isits Requested Visits Authorized [id number] Closed Auto-Generate d Referral 03/12/2023 04/10/2024 1 1 Reason Comments Radiology US Reason Comments Tree Driller - Other Specialty Diagnoses / Procedures Referred By Contac t Referred To Contact [facility] Diagnoses Osteoporosis, postmenopausal Tariq, Palma, MIXING TUMBLER OPERATOR.RIP SAW OPERATOR [address] [place] [address] [facility] [address] [place] [id number] Referral ID Status Reason Start Date Expiration Date V isits Requested Visits Authorized [id number] Closed Auto-Generate d Referral 07/16/2023 10/14/2023 1 [...] W/O CNTRST Miah Cottrell L, DO [address] [place] [address] Ct Imaging [place] [address] Referral ID Status Reason Start Date Expiration Date V isits Requested Visits Authorized [id number] Closed Auto-Generate d Referral 12/17/2023 01/15/2025 1 1 Reason Comments /p up for passed couple months of and on B/p up fo passed couple months, getting headaches Reason Comments Established Patient Specialty Diagnoses / Procedures Referred By Contact Referred To Contact [facility] [place] [address] [place] [address] [facility] [address] [place] [address] Referral ID Status Reason Start Date Expiration Date V isits Requested Visits Authorized [id number] Closed Auto-Generate d Referral 01/28/2024 04/27/2024 1 [...] FOLLOW UP Marko Wood MD [address] [address] Referral ID Status Reason Start Date Expiration Date V isits Requested Visits Authorized [id number] Closed PCP Requested Referral 04/19/2023 07/18/2023 1 1 Reason Onset Date Comments Refill Request 05/13/2024 Reason Comments Radio Gen RMP Specialty Diagnoses / Procedures Referred By Contac t Referred To Contact [facility]AGING Diagnoses Neck pain Procedures XR CERV OTHER 4V AP/LAT/OBL RADEX SPINE CERVICAL 4 OR 5 VIEWS Palma Lovett, MIXING TUMBLER OPERATOR.RIP SAW OPERATOR [address] [place] [address] [place] [address] Referral ID Status Reason Start Date Expiration Date V isits Requested Visits Authorized [id number] Closed Auto-Generate d Referral 12/16/2021 01/15/2023 1 [...] CERVICAL 4 OR 5 VIEWS Palma Lovett, MIXING TUMBLER OPERATOR.RIP SAW OPERATOR [address] [place] [address] Phone: tel: fax: [place] [address] Referral ID Status Reason Start Date Expiration Date V isits Requested Visits Authorized [id number] Closed Auto-Generate d Referral 02/06/2025 03/08/2026 1 1 Reason Onset Date Comments SPP Inflammatory Conditions - Treatment Referral 02/11/2025 Isra Insurance Authorization 02/11/2025 PA submi ssion pending Reason Comments Neck Pain New Patient Specialty Diagnoses / Procedures Referred By Contac t Referred To Contact [facility] [place] Diagnoses Neck pain Procedures [facility]SULT [facility] OFFICE/OUTPATIENT [facility] 60 MINUTES Palma Lovett, CARMINA.RIP SAW OPERATOR [address] [place] [address] Phone: tel: fax: Referral ID Status Reason Start Date Expiration Date V isits Requested Visits Authorized [id number] Closed PCP Requested Referral 02/06/2025 02/06/2026 1 1 Reason Onset Date Comments Refill Request 02/16/2025 Reason Comments Results Cervical MRI Reason Comments Tree Driller - Other Reason Comments F/U 3 Month Specialty Diagnoses / Procedures Referred By Contac t Referred To Contact Diagnoses Essential tremor Procedures OFFICE/OUTPATIENT [facility] 60 MINUTES Marko Wood MD [address] [address] Phone: tel: fax: Referral ID Status Reason Start Date Expiration Date V isits Requested Visits Authorized [id number] Closed PCP Requested Referral 2024 07/13/2024 1 [...] mL IVPB (premix) (COMPLETED) 2,000 mg, IntraVENous, DRIVE TESTER TO O.R., 1 dose, On Shelli 03/23/22 [...] BE BASED ON THE PRIMARY CLINICAL RECORDS. [employer] [facility]. provides no warranty or guarantee of the accuracy or completeness of information in this document.
[2025-07-21 18:26] LABS: Red Blood Cells-Urine 0-5 SEEN /hpf (0-5); Squamous Epithelial Cells - UA 0-5 SEEN /hpf (5-10)
--- NOTE | 2025-07-21 18:41 | EDS_ITS ---
HPI HPI - GI History of Present Illness Chief Complaint: Abd Pain Informant: patient and spouse/S.O. Narrative Narrative: 75-year-old female presenting to the emergency room with rectal bleeding and concerns of diverticulitis. Patient states for about 1 month she has had mucousy bloody stools. She notes pain in the left lower side of her abdomen. Patient states she was seen in the emergency room in June and states that she has been taking Keflex. About 6 days ago she was started on Augmentin by her stone decorator Dr. Gramajo. She states that she continues to have her symptoms and called her doctors and they told her to come to emergency. She denies any fever. She states she has not had any surgeries for diverticulitis or complications of diverticulitis. She notes her last colonoscopy was 2019. Significant other who accompanies her gives out audible disgruntled noises when I attempt to ask basic questions like what brings you to emergency. He tells me that there should be some papers that I should read and that I should not be asking these questions. She has a history of polymyalgia rheumatica and is reportedly on daily prednisone [facility] Medical History Wears dentures History of steroid therapy History of diverticulitis Smoker Ulcer Polycystic ovaries IBS (irritable bowel syndrome) Hypoglycemia GI problem Glaucoma Gallstones Cataracts, bilateral Cancer Breast lump Bone fracture Arthritis Tremor Bartholin cyst History of uterine cancer Osteoarthritis GERD (gastroesophageal reflux disease) Chest pain at rest Giant cell arteritis with polymyalgia rheumatica Home Medications ?Medication ?Instructions ?Recorded ?Last Taken ?Type prednisone 10 mg tablet 10 mg PO DAILY 04/05/1406/20 History metoprolol succinate 50 mg 25 mg PO DAILY tremors 06/2007/06/25 History tablet,extended release 24 hr denosumab 60 mg/mL subcutaneous 60 mg subcut [id number] 05/26/25 03/04/25 History syringe (Prolia) latanoprost 0.005 % eye drops 1 drp ophthalmic (eye) Q HS 05/26/25 07/05/25 History primidone 250 mg tablet 250 mg PO QHS TREMORS 07/05/25 History cephalexin 500 mg capsule 500 mg PO BID 7 days #14 cap s 07/06/25 Unknown Rx cholestyramine 4 gram oral powder 4 g PO DAILY 5 07/06/25 History for suspension in a packet (Cholestyramine Light) loperamide 2 mg capsule 2 mg PO Q6H PRN loose stool 07/06/25 07/06/25 History (Anti-Diarrheal (loperamide)) pantoprazole 40 mg tablet,delayed 40 mg PO DAILY 30 da ys #30 tabs 07/06/25 Unknown Rx release (Protonix) Allergy/AdvReac Type Severity Reaction Status Date / Time No Known Allergies Allergy Verified 07/21/25 17:32 Family History Brother Cancer liver and lymphoma Sister Cancer lung Diabetes Father Diabetes Heart disease Myocardial infarction Mother Heart disease Other Anesthesia complication Arthritis Bleeding disorder H/O transfusion of whole blood Hypertension Kidney disease Melanoma Surgical History History of medial meniscus repair of left knee History of right breast biopsy Status post fine needle aspiration History of breast biopsy (~07/2018) History of appendectomy Status post ORIF of fracture of ankle history of ulnar nerve transplant History of arthroplasty of left shoulder History of colonoscopy History of partial hysterectomy history of bartholin cyst removal Social History household members: none Smoking Status: Current every day smoker tobacco type: cigarettes Smoking packs per day: 1.5 Smoking cigarettes per day: 30.0 alcohol intake: never substance use type: does not use what type of physical activity do you participate in: none do you feel safe at home: Yes ROS ROS ED Constitutional Constitutional ED: Denies chills, fever(s) or weight loss Eyes Eyes: Denies change in vision or diplopia ENT ENT ED: Denies ear pain, rhinorrhea or sore throat Cardiovascular Cardiovascular: Denies chest pain, orthopnea, palpitations or racing heartbeat Respiratory/Chest Respiratory/Chest: Denies cough, dyspnea or orthopnea Gastrointestinal Gastrointestinal: Reports abdominal pain, diarrhea and other Details: Bright red blood per rectum. Mucousy stools ; Denies nausea or vomiting Genitourinary Genitourinary ED: Denies dysuria, hematuria or urinary frequency Musculoskeletal Musculoskeletal: Denies arthralgias or myalgias Integumentary Denies abscess or rash Neurologic Neurologic: Denies headache(s) or weakness Psychiatric Psychiatric: Denies anxiety, depression, suicidal ideation or suicidal thoughts Endocrine Endocrinology: Denies polydipsia, polyphagia or polyuria Allergic/Immunologic Allergic/Immunologic ED: Denies mouth swelling, tongue swelling or urticaria EXAM Physical Exam Const Vital Signs: 07/21/25 17:28 07/21/25 19:00 07/21/25 20:18 Temperature 96.8 F L 98.2 F Temperature Source Temporal Pulse Rate 96 77 77 Respiratory Rate 18 16 16 Blood Pressure 120/60 120/70 120/70 Blood Pressure Mean 80 86 86 Pulse Ox 97 99 99 Oxygen Delivery Method Room Air Positive well nourished and well developed General Appearance ED: well developed and NAD HEENT Reports normocephalic, head/scalp atraumatic and moist mucous membranes Eyes PERRL and EOMs intact bilaterally Neck no lymphadenopathy, supple and no JVD Resp normal respiratory effort and clear to auscultation bilaterally Cardio regular rate, regular rhythm and no murmurs GI Inspection: Negative for abdominal distention Auscultation: normoactive bowel sounds Palpation: soft and tender LLQ; Negative for guarding, rigid or rebound t enderness present Back/Spine no CVA tenderness and normal ROM Extremity normal to inspection General Extremety ED: Negative for edema General Extremity: Negative for edema Neuro oriented x3 and CN's II-XII intact bilaterally Sensorium / Orientation: alert Motor Exam: strength 5/5 throughout Psych mental status grossly normal Mood & Affect: Negative for depressed or tearful Skin no rashes or lesions noted and no wounds MDM MDM MDM Narrative Medical decision making narrative: Differential diagnosis includes failure of outpatient therapy diverticular abscess perforation colitis diverticulitis. Patient's white count 13.2 hemoglobin 13.1 platelet count 309. Normal creatinine normal liver enzymes urinalysis with no overt infection CT of the on pelvis with IV contrast was obtained. This demonstrates changes consistent with sigmoiditis and extensive diverticulosis. She received a dose of Zosyn. Given that she has had 1 month of bleeding has been on antibiotics and continues to have symptomology I will speak with the hospitalist regarding potential for admission. Patient's significant other continues to be a barrier for care during her ED course. History & Record Review Discussion w/independent historian: Patient and Family Additional record(s) reviewed:: Prior ED visit and Prior labs Lab Data Attestation: I reviewed the patient's lab results. Labs: Laboratory Results - last 24 hr 07/21/25 17:50 WBC 13.2 H RBC 4.10 L Hgb 13.1 Hct 39.2 MCV 95.6 MCH 32.0 MCHC 33.4 RDW Std Deviation 45.7 H RDW Coeff of [place] 13.0 Plt Count 309 MPV 10.3 Immature Gran % (Auto) 0.400 Neut % (Auto) 74.3 H Lymph % (Auto) 18.0 L [place] % (Auto) 6.9 Eos % (Auto) 0.1 Baso % (Auto) 0.3 Absolute Neuts (auto) 9.8 H Absolute Lymphs (auto) 2.37 Nucleated RBC % 0 Sodium 144 Potassium 3.1 L Chloride 104 Carbon Dioxide 27.6 Anion Gap 13 BUN 13 Creatinine 0.65 L Estim Creat Clear Calc 54.67 Est GFR (MDRD) Non-Af 92 BUN/Creatinine Ratio 20.0 Glucose 126 H Calcium 8.9 Total Bilirubin 0.17 Direct Bilirubin < 0.08 AST 23 ALT 13 Alkaline Phosphatase 95 Total Protein 7.1 Albumin 3.9 Globulin 3.2 Urine Color Yellow Urine Clarity Clear Urine pH 5.0 Ur Specific [place] 1.020 Urine Protein 30 H Urine Glucose (UA) 50 H Urine Ketones Negative Urine Occult Blood 250 H Urine Nitrite Negative Urine Bilirubin Negative Urine Urobilinogen Normal Ur Leukocyte Esterase 25 H Urine RBC 0-5 SEEN Urine WBC 0 SEEN Ur Squamous Epith Cells 0-5 SEEN Urine Bacteria 0 SEEN Urine Mucus 0 SEEN Radiography Diagnostic Testing: Clinical Impression(s) from Imaging Studies Abdomen/Pelvis CT 07/21/25 18:18 IMPRESSION: 1. Extensive sigmoid diverticulosis with possible developing sigmoiditis. 2. Stable mild compression deformity of L3. Reading [facility] Management Discussion w/another healthcare provider: Hospitalist (Dr. Buckner) Discharge Plan Dx/Rx/DC Orders Clinical Impression: Sigmoiditis, Rectal bleeding, hot dipper (current) use of systemic steroids Disposition Disposition: Acute Care Hospital [facility]
[2025-07-21 18:58] LABS: AST(SGOT) 23 U/L (<=31); Alanine Aminotransfer ALT/SGPT 13 U/L (<=34); Albumin, Serum 3.9 g/dL (3.4-4.8); Alkaline Phosphatase 95 U/L (35-104); Anion Gap 13 (5-15); BUN 13 mg/dL (4-19); BUN/Creat Ratio 20.0 RATIO (10-20); Bilirubin, Direct < 0.08 mg/dL (0.00-0.30); Calcium,Total 8.9 mg/dL (7.6-11.0); Carbon Dioxide 27.6 mmol/L (21.0-32.0); Chloride 104 mmol/L (98-108); Estimated Creatinine Clearance 54.67 ml/min (50-250); Globulin 3.2 g/dL (2.2-4.2); Glucose 126 mg/dL (70-99); Potassium 3.1 mmol/L (3.3-5.1)
[2025-07-21 19:00] VITALS: BP 120/70; PULSE 77; RESP 16; O2SAT 99
--- NOTE | 2025-07-21 19:58 | HP.PCM.HOS_ITS ---
HPI - General General Date of Admission: 07/21/25 Date of Service: 07/21/25 Chief Complaint: Mucous-bloody stools, LLQ pain. 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 Hagen and placed on Augmentin at that time however she has continued to have symptoms with recommendation for her to present to the ED for evaluation with no associated fever with last colonoscopy in 2019. In addition patient's been having loose stools. Workup in the ED included T96.8, heart rate 96, BP 120/60, respiratory rate 18, 97% room air with most recent repeat vitals heart rate 77, BP 120/70, respiratory rate 16, 99% on room air, CBC with WBC 13.2, Hgb 13.1, platelet 309 with left shift, CMP with potassium 3.1, BUN/creatinine 13/0.65, GFR 92, glucose 126, hepatic profile unremarkable, urinalysis with specific [place] 1.020, protein 30, glucose 50, occult blood 250, nitrate negative, leukocyte esterase 25 with no marked urine WBCs or bacteria demonstrated, CT abdomen and pelvis with IV contrast only with extensive sigmoid diverticulosis with possible developing sigmoiditis, stable mild compression deformity L3. [facility] Medical History Wears dentures History of steroid therapy History of diverticulitis Smoker Ulcer Polycystic ovaries IBS (irritable bowel syndrome) Hypoglycemia GI problem Glaucoma Gallstones Cataracts, bilateral Cancer Breast lump Bone fracture Arthritis Tremor Bartholin cyst History of uterine cancer Osteoarthritis GERD (gastroesophageal reflux disease) Chest pain at rest Giant cell arteritis with polymyalgia rheumatica Home Medications ?Medication ?Instructions ?Recorded ?Last Taken ?Type prednisone 10 mg tablet 10 mg PO DAILY 04/05/1406/20 History metoprolol succinate 50 mg 25 mg PO DAILY tremors 06/2007/06/25 History tablet,extended release 24 hr denosumab 60 mg/mL subcutaneous 60 mg subcut [id number] 05/26/25 03/04/25 History syringe (Prolia) latanoprost 0.005 % eye drops 1 drp ophthalmic (eye) Q HS 05/26/25 07/05/25 History primidone 250 mg tablet 250 mg PO QHS TREMORS 07/05/25 History cephalexin 500 mg capsule 500 mg PO BID 7 days #14 cap s 07/06/25 Unknown Rx cholestyramine 4 gram oral powder 4 g PO DAILY 5 07/06/25 History for suspension in a packet (Cholestyramine Light) loperamide 2 mg capsule 2 mg PO Q6H PRN loose stool 07/06/25 07/06/25 History (Anti-Diarrheal (loperamide)) pantoprazole 40 mg tablet,delayed 40 mg PO DAILY 30 da ys #30 tabs 07/06/25 Unknown Rx release (Protonix) Allergy/AdvReac Type Severity Reaction Status Date / Time No Known Allergies Allergy Verified 07/21/25 17:32 Family History Brother Cancer liver and lymphoma Sister Cancer lung Diabetes Father Diabetes Heart disease Myocardial infarction Mother Heart disease Other Anesthesia complication Arthritis Bleeding disorder H/O transfusion of whole blood Hypertension Kidney disease Melanoma Surgical History History of medial meniscus repair of left knee History of right breast biopsy Status post fine needle aspiration History of breast biopsy (~07/2018) History of appendectomy Status post ORIF of fracture of ankle history of ulnar nerve transplant History of arthroplasty of left shoulder History of colonoscopy History of partial hysterectomy history of bartholin cyst removal Social History household members: none Smoking Status: Current every day smoker tobacco type: cigarettes Smoking packs per day: 1.5 Smoking cigarettes per day: 30.0 alcohol intake: never substance use type: does not use what type of physical activity do you participate in: none do you feel safe at home: Yes ROS ROS Narrative Admission Review of Systems: CONSTITUTIONAL: No weight loss, fever, chills, + weakness or fatigue. HEENT: Eyes: No visual loss, blurred vision, double vision or yellow sclerae. Ears, Nose, Throat: No hearing loss, sneezing, congestion, runny nose or sore throat. SKIN: No rash or itching, lesions, wounds. CARDIOVASCULAR: No chest pain, chest pressure or chest discomfort, palpitations, edema, orthopnea, syncopal events. RESPIRATORY: No shortness of breath, cough or sputum, wheezing, hemoptysis. GASTROINTESTINAL: + anorexia, nausea, abdominal pain primarily LLQ, diarrhea, bloody mucousy stools. No vomiting, melena, BRBPR. GENITOURINARY: No dysuria, frequency, urgency or retention. NEUROLOGICAL: No headache, dizziness, syncope, paralysis, ataxia, numbness or tingling in the extremities, focal weakness, change in bowel or bladder control, seizure. MUSCULOSKELETAL: + muscle, back pain, joint pain or stiffness. HEMATOLOGIC: No anemia, bleeding or bruising. LYMPHATICS: No enlarged nodes. No history of splenectomy. PSYCHIATRIC: No history of depression or anxiety. ENDOCRINOLOGIC: No reports of sweating, cold or heat intolerance. No polyuria or polydipsia. ALLERGIES: No history of asthma, hives, eczema or rhinitis. Vital Signs Vital Signs Vital Signs: 07/21/25 17:28 07/21/25 19:00 Temperature 96.8 F L Temperature Source Temporal Pulse Rate 96 77 Respiratory Rate 18 16 Blood Pressure 120/60 120/70 Blood Pressure Mean 80 86 Pulse Ox 97 99 Oxygen Delivery Method Room Air Weight Weight: 132 lb 11.2 oz Body Mass Index (BMI) 21.7 Physical Exam Narrative Physical Examination: General: Awake, alert, oriented x 3 and cooperative, seated upright in bed, fatigued, no acute distress Skin: Normal color, normal turgor, no icterus, no cyanosis except occasional stage ecchymoses, abrasion. HEENT: AT/NC, EOMI, PERRLA, moderately dry MM, no carotid bruits or JVD noted. Lungs: Mildly diminished, greater bases, proper effort, no rales, ronchi or wheezing. Heart: Regular rate and rhythm; no gallop, rub audible. Abdomen: Soft, notable left lower quadrant tenderness to palpation with voluntary guarding, no marked distention evident, mildly hyperactive BS, no appreciated HSM. Extremities: No cyanosis, clubbing, or edema. Neurological: Patient awake, alert, oriented as noted, cognitive function intact; pupils equally reactive to light and accommodation, cranial nerves grossly normal, moving all 4 extremities, no focal deficits, strength moderately globally decreased secondary to acute presentation complaints. Psychiatric: Affect appears mildly flat otherwise normal, no acute evidence of depressive or anxiety feelings. Results Lab / Micro Data 07/21/25 17:50 07/21/25 17:50 Labs: Laboratory Results - last 24 hr 07/21/25 17:50: WBC 13.2 H, RBC 4.10 L, Hgb 13.1, Hct 39.2, MCV 95.6, MCH 32.0, MCHC 33.4, RDW Std Deviation 45.7 H, RDW Coeff of Lizandro 13.0, Plt Count 309, MPV 10.3, Immature Gran % (Auto) 0.400, Neut % (Auto) 74.3 H, Lymph % (Auto) 18.0 L, [place] % (Auto) 6.9, Eos % (Auto) 0.1, Baso % (Auto) 0.3, Absolute Neuts (auto) 9.8 H, Absolute Lymphs (auto) 2.37, Nucleated RBC % 0, Sodium 144, Potassium 3.1 L, Chloride 104, Carbon Dioxide 27.6, Anion Gap 13, BUN 13, Creatinine 0.65 L, Estim Creat Clear Calc 54.67, Est GFR (MDRD) Non-Af 92, BUN/Creatinine Ratio 20.0, Glucose 126 H, Calcium 8.9, Total Bilirubin 0.17, Direct Bilirubin < 0.08, AST 23, ALT 13, Alkaline Phosphatase 95, Total Protein 7.1, Albumin 3.9, Globulin 3.2, Urine Color Yellow, Urine Clarity Clear, Urine pH 5.0, Ur Specific [place] 1.020, Urine Protein 30 H, Urine Glucose (UA) 50 H, Urine Ketones Negative, Urine Occult Blood 250 H, Urine Nitrite Negative, Urine Bilirubin Negative, Urine Urobilinogen Normal, Ur Leukocyte Esterase 25 H, Urine RBC 0-5 SEEN, Urine WBC 0 SEEN, Ur Squamous Epith Cells 0-5 SEEN, Urine Bacteria 0 SEEN, Urine Mucus 0 SEEN Imaging Radiology Impression Abdomen/Pelvis CT 07/21/25 18:18 IMPRESSION: 1. Extensive sigmoid diverticulosis with possible developing sigmoiditis. 2. Stable mild compression deformity of L3. 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 Hagen and placed on Augmentin at that time however she has continued to have symptoms with recommendation for her to present to the ED for evaluation with no associated fever with last colonoscopy in 2019. #1. Acute Sigmoid Diverticulitis, failed outpatient abx therapy: Will admit to medical surgical floor, maintain on aggressive hydration, given atypical presentation will also obtain cdiff/enteric, will monitor I&Os, maintain NPO status w/ bowel rest, treat with zosyn regimen, IV PPI, anti-emetics, pain regimen PRN. Consider diet advancement to clears in AM if clinically improved. #2. Hypokalemia: Admission K+ 3.1, magnesium above requested, supplementation given, repeat level in AM. #3. History of giant cell arteritis with PMR: Will continue very low-dose prednisone therapy cautiously. #4. Chronic essential tremors: Will continue patient on primidone and reportedly also taking low-dose metoprolol for this in addition. #5. PCOS: Noted history, per current medication list not on any chronic treatment regimen, encourage follow-up outpatient with intervention as needed. #6. Tobacco Abuse: Encouraged cessation, inpatient consultation per RT, NR if desired. #7. GERD: Given presentation will place on IV PPI as noted above. #8. DVT prophylaxis: SCDs, defer chemoprophylaxis given bloody mucousy stools. Charges/Coding Visit Charges Inpatient E&M: 18671 Init Hosp L2
[2025-07-21 20:18] VITALS: BP 120/70; PULSE 77; RESP 16; TEMP 36.8; O2SAT 99
--- OUTSIDE RECORDS SUMMARY | 2025-07-21 20:49 | XMS RPT_ITS | CCD ---
Author Organization [facility] Care Team Providers Care Professor Of Engineering Name Role Phone Miah Cottrell Primary Care Provider MIAH COTTRELL Primary Care Unavailable PALMA LOVETT Referring Unavailable PALMA LOVETT Referring Unavailable MIAH COTTRELL Primary Care Unavailable Miah Cottrell DO Primary Care Provider Miah Cottrell DO Primary Care Provider Quiroz [employer].COMPLAINT EVALUATION OFFICERRonna Unavailable Tevin [employer].Wily CABELLO Unavailable Gina [employer].COMPLAINT EVALUATION OFFICERCammie Unavailable MIAH COTTRELL Primary Care Unavailable MARKO [...] Primary Care Unavailable PALMA LOVETT Referring Unavailable MIHA COTTRELL Primary Care Unavailable PALMA LOVETT Referring [...] Simba BURGESS, Dr. Dooley Referring Provider [phone] Camille JAMES, Dr. Correa Attending Physician Camille [...] sulfaSALAzine; Translations: [SULFASALAZINE] Drug Allergy 03-26-2024 Rash [facility] Medications Current Medications Medication Drug Class(es) Dates [...] exam. Discontinue saline lock post exam. If Appointment Radiology [address] [place] [address] Osteoporosis, 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] Radiology Comment on above: Osteoporosis, 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] Start: 04-20-2025 Influenza vaccination [facility] Start: 2025 BP Controlled (<130/80) BP Controlled (<130/80) [facility] Start: 2025 RSV Vaccine (1 - 1-dose 75+ series) RSV Vaccine (1 - 1-dose 75+ series) [facility] Start: 2025 End: 2025 Patient encounter procedure 2025 1:00 PM EDT Office Visit Neurology [address] [facility] [address] [place] [address] Marko Wood MD [address] [facility] [address] [place] [address] Essential tremor [G25.0] Neurology Comment on above: Essential tremor [G25.0] Start: 03-26-2025 Annual PCP Team Chronic Disease Visit Annual PCP Team Chronic Disease Visit [facility] Start: 03-26-2025 BP Controlled (<130/80) BP Controlled (<130/80) [facility] Start: 03-24-2025 End: 03-24-2025 Patient encounter procedure 03/24/2025 11:30 AM EDT Office Visit OB/Gynecology [address] [place] [address] Isabela Murphy APRN.COMPLAINT EVALUATION OFFICER [address] [place] [address] annual OB/Gynecology Comment on above: annual Start: 03-17-2025 End: 03-17-2025 Patient encounter procedure 03/17/2025 11:00 AM EDT Office Visit [facility] [place] [address] [place] [address] Miah Cottrell DO [address] [place] [address] 3 month follow up Family [facility] [place] Comment on above: 3 month follow up Start: 03-10-2025 End: 03-10-2025 Patient encounter procedure 03/10/2025 11:00 AM EDT Office Visit [facility] [place] [address] [place] [address] Miah Cottrell DO [address] [place] [address] 3 month follow up [facility] [place] Comment on above: 3 month follow up Start: 02-26-2025 Screening for osteoporosis Bone Density Screening [facility] Start: 02-17-2025 Annual PCP Team Chronic Disease Visit Annual PCP Team Chronic Disease Visit [facility] Start: 02-17-2025 BP Controlled (<130/80) BP Controlled (<130/80) [facility] in Start: 02-17-2025 End: 02-17-2025 Patient encounter procedure 02/17/2025 2:00 PM EDT Appointment Radiology [address] [place] [address] Spinal stenosis of cervical region [M48.02 Radiology Comment on above: Spinal stenosis of cervical region [M48. 02 Start: 02-16-2025 [facility]enza [facility] Comment on above: Postponed from 04/20/2024 (Declined at t his time) Start: 02-13-2025 End: 02-13-2025 Patient encounter procedure 02/13/2025 1:00 PM EDT Office Visit Pain Management [address] [phone] Dorothy Pisano, [employer].COMPLAINT EVALUATION OFFICER [address] [place] [address] Neck pain [M54.2] Pain Management Comment on above: Neck pain [M54.2] Start: 02-06-2025 End: 05-08-2025 BLOOD TB SCREEN [facility] Comment on above: Expected: 02/06/2025 (Approximate), Expi res: 05/08/2025 Start: 02-06-2025 BP Controlled (<130/80) BP Controlled (<130/80) [facility] in Start: 02-06-2025 End: 05-08-2025 C reactive protein [Mass/volume] in Serum or Plasma [facility] Comment on above: Expected: 02/06/2025 (Approximate), Expi res: 05/08/2025 Start: 02-06-2025 End: 05-08-2025 Chronic hepatitis differentiation between hepatitis B and C virus panel - Serum or Plasma [facility] Comment on above: Expected: 02/06/2025 (Approximate), Expi res: 05/08/2025 Start: 02-06-2025 End: 05-08-2025 Erythrocyte sedimentation rate [facility] Comment on above: Expected: 02/06/2025 (Approximate), Expi res: 05/08/2025 Start: 02-06-2025 End: 02-06-2025 Nursing evaluation of patient and report 02/06/2025 1:00 PM EDT Nurse Visit Rheumatology [address] [place] [address] Wilfredo, Nurse Rheu [facility] [address] [place] [address] [facility] Comment on above: [facility] Start: 01-27-2025 Annual PCP Team Chronic Disease Visit Annual PCP Team Chronic Disease Visit [facility] Start: 01-27-2025 BP Controlled (<130/80) BP Controlled (<130/80) [facility] Start: 01-20-2025 End: 04-21-2025 25-hydroxyvitamin D3 [Mass/volume] in Serum or Plasma [facility] Comment on above: Expected: 01/20/2025, Expires: Start: 01-20-2025 End: 04-21-2025 Calcium [Mass/volume] in Serum or Plasma [facility] Work Phone: Comment on above: Expected: 01/20/2025, Expires: Start: 01-08-2025 Annual PCP Team Chronic Disease Visit Annual PCP Team Chronic Disease Visit [facility] Start: 01-08-2025 RSV Vaccine (1 - 1-dose 60+ series) RSV Vaccine (1 - 1-dose 60+ series) [facility] Comment on above: Postponed from 2010 (Declined at t his time) Start: 01-07-2025 Screening for malignant neoplasm of lung Lung Cancer Screening [facility] Start: 12-16-2024 Annual PCP Team Chronic Disease Visit Annual PCP Team Chronic Disease Visit [facility] Start: 12-16-2024 BP Controlled (<130/80) BP Controlled (<130/80) [facility] Start: 11-21-2024 End: 11-21-2024 Patient encounter procedure 11/21/2024 12:40 PM EDT Office Visit Family Medicine [place] [address] [place], [place] [address] Wily Abarca APRN.COMPLAINT EVALUATION OFFICER [address] [place] [address] 6 month follow up Family [facility] Comment on above: 6 month follow up Start: 10-08-2024 Screening for malignant neoplasm of breast Mammogram Screening [facility] Start: 08-20-2024 Advance Directive Discussion Advance Directive Discussion [facility] Start: 08-15-2024 Lipid 1996 panel - Serum or Plasma Lipid Screening [facility] Start: 08-15-2024 Lipid panel Lipid Screening [facility] Start: 08-15-2024 LIPID SCREEN LIPID SCREEN [facility] Start: 08-05-2024 End: 08-05-2024 Nursing evaluation of patient and report 08/05/2024 2:00 PM EST Nurse Visit Rheumatology [id number] [place] [id number] Wilfredo, Nurse Lauren [facility] [address] [place] [address] prolia injection Rheumatology Comment on above: prolia injection Start: 08-04-2024 End: 08-04-2024 Patient encounter procedure 08/04/2024 3:00 PM EST Office Visit Rheumatology [address] [place] [address] Palma Lovett, [employer].COMPLAINT EVALUATION OFFICER [address] [place] [address] prolia injection Rheumatology Comment on above: prolia injection Start: 07-23-2024 BP Controlled (<130/80) BP Controlled (<130/80) [facility] Start: 06-20-2024 End: 01-27-2025 25-hydroxyvitamin D3 [Mass/volume] in Serum or Plasma VITAMIN D 25 HYDROXY Lab Routine Osteoporosis, postmenopausal Encounter for long-term (current) use of medications Expected: 06/20/2024, Expires: 01/27/2025 [facility] Work Phone: Comment on above: Expected: 06/20/2024, Expires: Start: 06-20-2024 End: 01-27-2025 Calcium [Mass/volume] in Serum or Plasma CALCIUM, TOTAL Lab Routine Osteoporosis, postmenopausal Encounter for long-term (current) use of medications Expected: 06/20/2024, Expires: 01/27/2025 [facility] Comment on above: Expected: 06/20/2024, Expires: Start: 06-20-2024 End: 01-27-2025 CREATININE BLD CREATININE BLD Lab Routine Osteoporosis, postmenopausal Encounter for long-term (current) use of medications Expected: 06/20/2024, Expires: 01/27/2025 [facility] Comment on above: Expected: 06/20/2024, Expires: Start: 06-20-2024 End: 06-20-2024 ambulatory 06/20/2024 9:00 AM EDT Results Only [facility] Draw Station [address] [facility] [place] [address] [place] [facility] Draw Station Start: 06-15-2024 Annual PCP Team Chronic Disease Visit Annual PCP Team Chronic Disease Visit [facility] Start: 06-15-2024 BP Controlled (<130/80) BP Controlled (<130/80) [facility] Start: 06-15-2024 Covid-19 Vaccine () Covid-19 Vaccine () [facility] Comment on above: Postponed from 04/20/2023 (Declined at t his time) Start: 05-23-2024 End: 05-23-2024 Patient encounter procedure [facility] Comment on above: 6 month f/up Start: 05-07-2024 BP Controlled (<130/80) BP Controlled (<130/80) [facility] Start: 04-20-2024 Covid-19 Vaccine ( season) Covid-19 Vaccine () [facility] Start: 04-20-2024 Influenza vaccination Influenza Vaccine (#1) [facility] Start: 04-19-2024 BP CONTROLLED (<130/80) BP CONTROLLED (<130/80) [facility] Start: 04-16-2024 BP CONTROLLED (<130/80) BP CONTROLLED (<130/80) [facility] Start: 2024 End: 2024 Patient encounter procedure 2024 4:00 PM EDT Office Visit Neurology [address] [id number] Marko Wood MD [address] [place] [address] [address] [place] [address] Essential tremor [G25.0] Neurology Comment on above: Essential tremor [G25.0] Start: 2024 DIABETES SCREEN DIABETES SCREEN [facility] Start: 03-18-2024 End: 03-18-2024 Follow-up encounter 03/18/2024 3:00 PM EDT [facility] Rheumatology [address] [place], [place] [phone] [place] [address] [place], [place] [phone] Follow up Rheumatology Comment on above: Follow up Start: 03-12-2024 ANNUAL PCP TEAM CHRONIC DISEASE VISIT ANNUAL PCP TEAM CHRONIC DISEASE VISIT [facility] Start: 03-12-2024 BP CONTROLLED (<130/80) BP CONTROLLED (<130/80) [facility] Start: 02-18-2024 End: 02-18-2024 Patient encounter procedure 02/18/2024 11:00 AM EDT Office Visit Family [facility] [place] [address] [place], [place] [phone] Ronna Quiroz APRN.COMPLAINT EVALUATION OFFICER [address] [place], [place] [phone] 3 week f/up b/p [facility] [place] Comment on above: 3 week f/up b/p Start: 02-07-2024 End: 02-07-2024 Patient encounter procedure 02/07/2024 1:20 PM EDT Office Visit OB/Gynecology [address] [place] [address] Anca Rodriguez MD [address] [place] [address] possible yeast infection-former Dr. Rowan patient OB/Gynecology Comment on above: possible yeast infection-former Dr. Wanda chu patient Start: 01-28-2024 End: 01-28-2024 Patient encounter procedure Rheumatology Comment on above: 16 MONTH FOLLOW UP and PROLIA INJ 4 week b/p follow Start: 01-20-2024 BP CONTROLLED (<130/80) BP CONTROLLED (<130/80) [facility] Start: 01-09-2024 End: 01-09-2024 Patient encounter procedure 01/09/2024 9:00 AM EDT Office Visit [facility] [place] [address] [facility] [place] [address] Ronna Quiroz APRN.COMPLAINT EVALUATION OFFICER [address] [place] [address] Blood Pressure Check; States BP has been elevated; 144-160/63-70 [facility] Comment on above: Blood Pressure Check; States BP has been elevated; 144-160/63-70 Start: 01-08-2024 End: 01-08-2024 Patient encounter procedure 01/08/2024 3:30 PM EDT Office Visit Vasculary Surgery [address] [place] [address] Carotid atherosclerosis, bilateral [I65.23 Vasculary Surgery Comment on above: Carotid atherosclerosis, bilateral [I65. 23 Start: 01-08-2024 End: 01-08-2024 Patient encounter procedure 01/08/2024 2:20 PM EDT Appointment Cat Scan [address] [place] [address] Nodule of lower lobe of left lung [R91.1] Cat Scan Comment on above: Nodule of lower lobe of left lung [R91.1 ] Start: 11-07-2023 End: 10-01-2024 25-hydroxyvitamin D3 [Mass/volume] in Serum or Plasma VITAMIN D 25 HYDROXY Lab Routine Osteoporosis, postmenopausal Expected: 11/07/2023 (Approximate), Expires: 10/01/2024 [facility] Work Phone: Comment on above: Expected: 11/07/2023 (Approximate), Expi res: 10/01/2024 Start: 11-07-2023 End: 02-06-2024 C reactive protein [Mass/volume] in Serum or Plasma C-REACTIVE PROTEIN (CRP) Lab Routine PMR (polymyalgia rheumatica) ([facility]) Expected: 11/07/2023 (Approximate), Expires: 02/06/2024 [facility] Work Phone: Comment on above: Expected: 11/07/2023 (Approximate), Expi res: 02/06/2024 Start: 11-07-2023 End: 10-01-2024 Calcium [Mass/volume] in Serum or Plasma CALCIUM TOTAL BLD Lab Routine Osteoporosis, postmenopausal Expected: 11/07/2023 (Approximate), Expires: 10/01/2024 [facility] Work Phone: Comment on above: Expected: 11/07/2023 (Approximate), Expi res: 10/01/2024 Start: 11-07-2023 End: 10-01-2024 CREATININE BLD CREATININE BLD Lab Routine Osteoporosis, postmenopausal Expected: 11/07/2023 (Approximate), Expires: 10/01/2024 [facility] Work Phone: Comment on above: Expected: 11/07/2023 (Approximate), Expi res: 10/01/2024 Start: 11-07-2023 End: 02-06-2024 Erythrocyte sedimentation rate SED RATE WESTERGREN Lab Routine PMR (polymyalgia rheumatica) ([facility]) Expected: 11/07/2023 (Approximate), Expires: 02/06/2024 [facility] Work Phone: Comment on above: Expected: 11/07/2023 (Approximate), Expi res: 02/06/2024 Start: 10-02-2023 Mammography [facility] Start: 10-02-2023 Screening for malignant neoplasm of breast Mammogram Screening [facility] Start: 08-20-2023 Advance Directive Discussion Advance Directive Discussion [facility] Start: 08-20-2023 Behavioral Health Screening Behavioral Health Screening [facility] Start: 08-20-2023 Depression Assessment Depression Assessment [facility] Start: 08-06-2023 End: 11-05-2023 Cobalamin (Vitamin B12) [Mass/volume] in Serum or Plasma VITAMIN B12 BLOOD Lab Routine Vitamin B12 deficiency Expected: 08/06/2023, Expires: 11/05/2023 [facility] Work Phone: Comment on above: Expected: 08/06/2023, Expires: 4 Start: 08-06-2023 End: 11-05-2023 Comprehensive metabolic 2000 panel - Serum or Plasma COMP METABOLIC PANEL Lab Routine Multiple thyroid nodules Expected: 08/06/2023, Expires: 11/05/2023 [facility] Work Phone: Comment on above: Expected: 08/06/2023, Expires: 4 Start: 08-06-2023 End: 11-05-2023 Thyrotropin [Units/volume] in Serum or Plasma TSH BLD Lab Routine Multiple thyroid nodules Expected: 08/06/2023, Expires: 11/05/2023 [facility] Work Phone: Comment on above: Expected: 08/06/2023, Expires: 4 Start: 08-06-2023 End: 11-05-2023 Thyroxine (T4) free [Mass/volume] in Serum or Plasma T4 FREE/FREE THYROX Lab Routine Multiple thyroid nodules Expected: 08/06/2023, Expires: 11/05/2023 [facility] Work Phone: Comment on above: Expected: 08/06/2023, Expires: 4 Start: 07-24-2023 BP CONTROLLED (<130/80) BP CONTROLLED (<130/80) [facility] Start: 07-07-2023 ANNUAL PCP TEAM CHRONIC DISEASE VISIT ANNUAL PCP TEAM CHRONIC DISEASE VISIT [facility] Start: 07-07-2023 BP CONTROLLED (<130/80) BP CONTROLLED (<130/80) [facility] Start: 07-03-2023 ANNUAL PCP TEAM CHRONIC DISEASE VISIT ANNUAL PCP TEAM CHRONIC DISEASE VISIT [facility] Start: 07-03-2023 BP CONTROLLED (<130/80) BP CONTROLLED (<130/80) [facility] Start: 06-25-2023 BP CONTROLLED (<130/80) BP CONTROLLED (<130/80) [facility] Start: 04-28-2023 Adult depression screening assessment DEPRESSION SCREENING [facility] Start: 04-20-2023 Influenza vaccination [facility] Start: 03-17-2023 BP CONTROLLED (<130/80) BP CONTROLLED (<130/80) [facility] Start: 01-19-2023 End: 03-21-2023 25-hydroxyvitamin D3 [Mass/volume] in Serum or Plasma [facility] Work Phone: Comment on above: Expected: 01/19/2023, Expires: 3 Start: 12-26-2022 ANNUAL PCP TEAM CHRONIC DISEASE VISIT ANNUAL PCP TEAM CHRONIC DISEASE VISIT [facility] Start: 12-26-2022 BP CONTROLLED (<130/80) BP CONTROLLED (<130/80) [facility] Start: 12-16-2022 BP CONTROLLED (<130/80) BP CONTROLLED (<130/80) [facility] Start: 09-26-2022 Mammography MAMMOGRAM [facility] Start: 08-20-2022 ADVANCE DIRECTIVE DISCUSSION ADVANCE DIRECTIVE DISCUSSION [facility] Start: 08-20-2022 DEPRESSION ASSESSMENT DEPRESSION ASSESSMENT [facility] Start: 07-24-2022 End: 07-24-2023 25-hydroxyvitamin D3 [Mass/volume] in Serum or Plasma [facility] Work Phone: Comment on above: Expected: 07/24/2022, Expires: 3 Start: 07-24-2022 End: 07-24-2023 Calcium [Mass/volume] in Serum or Plasma [facility] Work Phone: Comment on above: Expected: 07/24/2022, Expires: Start: 04-27-2022 Adult depression screening assessment DEPRESSION SCREENING [facility] Start: 04-25-2022 End: 06-25-2022 C reactive protein [Mass/volume] in Serum or Plasma C-REACTIVE PROTEIN (CRP) Lab Routine PMR (polymyalgia rheumatica) (HCC) 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) Expected: 04/25/2022 (Approximate), Expires: 06/25/2022 [facility] Work Phone: Comment on above: Expected: 04/25/2022 (Approximate), Expi res: 06/25/2022 Start: 04-25-2022 End: 06-25-2022 Erythrocyte sedimentation rate SED RATE WESTERGREN Lab Routine PMR (polymyalgia rheumatica) (HCC) 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) Expected: 04/25/2022 (Approximate), Expires: 06/25/2022 [facility] Work Phone: Comment on above: Expected: 04/25/2022 (Approximate), Expi res: 06/25/2022 Start: 04-20-2022 Influenza vaccination [facility] Start: 04-19-2022 End: 04-19-2023 Alanine aminotransferase [Enzymatic activity/volume] in Serum or Plasma ALT/SGPT Lab Routine PMR (polymyalgia rheumatica) (HCC) 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) Expected: 04/19/2022 (Approximate), Expires: 04/19/2023 [facility] Work Phone: Comment on above: Expected: 04/19/2022 (Approximate), Expi res: 04/19/2023 Start: 04-19-2022 End: 04-19-2023 Albumin [Mass/volume] in Serum or Plasma ALBUMIN BLD Lab Routine PMR (polymyalgia rheumatica) (HCC) 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) Expected: 04/19/2022 (Approximate), Expires: 04/19/2023 [facility] Work Phone: Comment on above: Expected: 04/19/2022 (Approximate), Expi res: 04/19/2023 Start: 04-19-2022 End: 04-19-2023 Aspartate aminotransferase [Enzymatic activity/volume] in Serum or Plasma AST/SGOT BLD Lab Routine PMR (polymyalgia rheumatica) (HCC) 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) Expected: 04/19/2022 (Approximate), Expires: 04/19/2023 [facility] Work Phone: Comment on above: Expected: 04/19/2022 (Approximate), Expi res: 04/19/2023 Start: 04-19-2022 End: 06-19-2022 BLOOD TB SCREEN BLOOD TB SCREEN Lab Routine PMR (polymyalgia rheumatica) (HCC) 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) Expected: 04/19/2022 (Approximate), Expires: 06/19/2022 [facility] Work Phone: Comment on above: Expected: 04/19/2022 (Approximate), Expi res: 06/19/2022 Start: 04-19-2022 End: 04-19-2023 CBC W Auto Differential panel - Blood CBC + DIFF Lab Routine PMR (polymyalgia rheumatica) (HCC) 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) Expected: 04/19/2022 (Approximate), Expires: 04/19/2023 [facility] Work Phone: Comment on above: Expected: 04/19/2022 (Approximate), Expi res: 04/19/2023 Start: 04-19-2022 End: 06-19-2022 Chronic hepatitis differentiation between hepatitis B and C virus panel - Serum or Plasma HEP REMOTE PANEL BL Lab Routine PMR (polymyalgia rheumatica) (HCC) 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) Expected: 04/19/2022 (Approximate), Expires: 06/19/2022 [facility] Work Phone: Comment on above: Expected: 04/19/2022 (Approximate), Expi res: 06/19/2022 Start: 04-19-2022 End: 04-19-2023 CREATININE BLD CREATININE BLD Lab Routine PMR (polymyalgia rheumatica) (HCC) 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 Orthopedics and Sports Medicine [place] Start: 03-23-2022 End: 03-23-2022 Patient encounter procedure 03/23/2022 Appointment General Surgery Artur Castellano MD [address] [place], [place] [id number] [facility] Surgery Start: 03-17-2022 End: 03-15-2023 25-hydroxyvitamin D3 [Mass/volume] in Serum or Plasma VITAMIN D 25 HYDROXY Lab Routine Osteoporosis, postmenopausal Expected: 03/17/2022 (Approximate), Expires: 03/15/2023 [facility] Work Phone: Comment on above: Expected: 03/17/2022 (Approximate), Expi res: 03/15/2023 Start: 03-17-2022 End: 05-17-2022 C reactive protein [Mass/volume] in Serum or Plasma C-REACTIVE PROTEIN (CRP) Lab Routine PMR (polymyalgia rheumatica) (HCC) 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) Expected: 03/17/2022 (Approximate), Expires: 05/17/2022 [facility] Work Phone: Comment on above: Expected: 03/17/2022 (Approximate), Expi res: 05/17/2022 Start: 03-17-2022 End: 03-15-2023 Calcium [Mass/volume] in Serum or Plasma CALCIUM TOTAL BLD Lab Routine Osteoporosis, postmenopausal Expected: 03/17/2022 (Approximate), Expires: 03/15/2023 [facility] Work Phone: Comment on above: Expected: 03/17/2022 (Approximate), Expi res: 03/15/2023 Start: 03-17-2022 End: 03-15-2023 CREATININE BLD CREATININE BLD Lab Routine Osteoporosis, postmenopausal Expected: 03/17/2022 (Approximate), Expires: 03/15/2023 [facility] Work Phone: Comment on above: Expected: 03/17/2022 (Approximate), Expi res: 03/15/2023 Start: 03-17-2022 End: 05-17-2022 Erythrocyte sedimentation rate SED RATE WESTERGREN Lab Routine PMR (polymyalgia rheumatica) (HCC) 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) Expected: 03/17/2022 (Approximate), Expires: 05/17/2022 [facility] Work Phone: Comment on above: Expected: 03/17/2022 (Approximate), Expi res: 05/17/2022 Start: 01-24-2022 COVID-19 Vaccine (4 - Booster for Pfizer series) COVID-19 Vaccine (4 - Booster for Pfizer series) [facility] Start: 01-09-2022 DTaP/Tdap/Td vaccine (2 - Td or Tdap) DTaP/Tdap/Td vaccine (2 - Td or Tdap) [facility] Start: 01-09-2022 DTaP/Tdap/Td vaccine (2 - Td) DTaP/Tdap/Td vaccine (2 - Td) [facility] [place] Start: 01-09-2022 Urine microalbumin profile DTAP,TDAP,TD (2 - Td or Tdap) [facility] Start: 12-24-2021 ANNUAL PCP TEAM CHRONIC DISEASE VISIT ANNUAL PCP TEAM CHRONIC DISEASE VISIT [facility] Start: 12-24-2021 COVID-19 VACCINE (4 - Booster for Pfizer series) COVID-19 VACCINE (4 - Booster for Pfizer series) [facility] Start: 12-16-2021 End: 02-15-2022 C reactive protein [Mass/volume] in Serum or Plasma [facility] Work Phone: Comment on above: Expected: 12/16/2021 (Approximate), Expi res: 02/15/2022 Start: 12-16-2021 End: 02-15-2022 Erythrocyte sedimentation rate [facility] Work Phone: Comment on above: Expected: 12/16/2021 (Approximate), Expi res: 02/15/2022 Start: 12-16-2021 End: 02-15-2022 VITAMIN D 25 HYDROXY [facility] Work Phone: Comment on above: Expected: 12/16/2021 (Approximate), Expi res: 02/15/2022 Start: 11-21-2021 COVID-19 VACCINE (4 - Booster for Pfizer series) COVID-19 VACCINE (4 - Booster for Pfizer series) [facility] Start: 11-21-2021 COVID-19 VACCINE (4 - Pfizer series) COVID-19 VACCINE (4 - Pfizer series) [facility] Start: 08-20-2021 ADVANCE DIRECTIVE DISCUSSION ADVANCE DIRECTIVE DISCUSSION [facility] Start: 08-20-2021 DEPRESSION ASSESSMENT DEPRESSION ASSESSMENT [facility] Start: 07-20-2015 Medicare Annual Wellness Visit Medicare Annual Wellness Visit [facility] Start: 04-16-2015 Screening for malignant neoplasm of cervix Cervical Cancer Screening [facility] Start: 2015 DEXA (modify frequency per FRAX score) DEXA (modify frequency per FRAX score) [place], [place] Start: 2010 RSV Vaccine (1 - 1-dose 60+ series) RSV Vaccine (1 - 1-dose 60+ series) [facility] Start: 2010 RSV Vaccine (1 - Risk 60-74 years 1-dose series) RSV Vaccine (1 - Risk 60-74 years 1-dose series) [facility] Start: 2005 Influenza vaccination LUNG CANCER SCREENING [facility] Start: 2005 Screening for osteoporosis DEXA (modify frequency per FRAX score) [facility] Start: 2000 Breast cancer screen Breast cancer screen [place], [place] Start: 2000 Colon cancer screen colonoscopy Colon cancer screen colonoscopy [place] Start: 2000 Influenza vaccination LUNG CANCER SCREENING [facility] Start: 2000 Screening for malignant neoplasm of breast Breast cancer screen [facility] Start: 2000 Screening for malignant neoplasm of lung Lung Cancer Screening [facility] Start: 1995 COLOGUARD (FIT-DNA) COLOGUARD (FIT-DNA) [facility] Start: [address] COLONOGRAPHY [facility] Start: 1995 Screening for malignant neoplasm of colon [facility] Start: 1995 SIGMOIDOSCOPY SIGMOIDOSCOPY [facility] Start: 1990 Diabetes screen Diabetes screen [place], [place] Start: 1990 Lipid panel Lipids [facility] Start: 1990 Lipid screen Lipid screen [place], [place] Start: 1968 Anxiety Screening Anxiety Screening [facility] Start: 1968 BP CONTROLLED (<130/80) BP CONTROLLED (<130/80) [facility] Start: 1968 Depression Screening Depression Screening [facility] Start: 1968 Hepatitis C screening Hepatitis C screen [facility] Start: 1962 Depression Screen Depression Screen [facility] Start: 1950 Hepatitis C screen Hepatitis C screen [place], [place] End: 03-18-2025 Alanine aminotransferase [Enzymatic activity/volume] in Serum or Plasma ALANINE AMINOTRANSFERASE / SGPT Lab Routine Encounter for long-term (current) use of medications 7 Occurrences starting 03/18/2024 until 03/18/2025 [facility] Comment on above: 7 Occurrences starting 03/18/2024 until 03/18/2025 End: 03-18-2025 Aspartate aminotransferase [Enzymatic activity/volume] in Serum or Plasma ASPARTATE AMINOTRANSFERASE/SGOT Lab Routine Encounter for long-term (current) use of medications 7 Occurrences starting 03/18/2024 until 03/18/2025 [facility] Comment on above: 7 Occurrences starting 03/18/2024 until 03/18/2025 Basic metabolic 2008 panel with ionized calcium - Serum or Plasma [facility] End: 03-18-2025 CBC panel - Blood by Automated count COMPLETE BLOOD COUNT Lab Routine Encounter for long-term (current) use of medications 7 Occurrences starting 03/18/2024 until 03/18/2025 [facility] Comment on above: 7 Occurrences starting 03/18/2024 until 03/18/2025 End: 03-18-2025 CREATININE BLD CREATININE BLD Lab Routine Encounter for long-term (current) use of medications 7 Occurrences starting 03/18/2024 until 03/18/2025 [facility] Work Phone: Comment on above: 7 Occurrences starting 03/18/2024 until 03/18/2025 CT Abdomen and Pelvi s WO and W contrast IV [facility] End: 01-15-2025 CT Chest WO contrast CT CHEST WO IVCON Radiology Routine Nodule of lower lobe of left lung 1 Occurrences starting 12/17/2023 until 01/15/2025 [facility] Work Phone: Comment on above: 1 Occurrences starting 12/17/2023 until 01/15/2025 CT Chest WO contrast CT CHEST WO IVCON Radiology Routine Nodule of lower lobe of left lung 01/08/2024 2:52 PM EDT [facility] Work Phone: DBT Breast - bilater al screening PARRIS SCREENING W DOMENIC Radiology Routine Encounter for screening mammogram for breast cancer 11/19/2024 2:04 PM EDT [facility] Work Phone: End: 01-15-2023 Dxa bone density study 1/> sites axial skel DXA-AXIAL SKELETON Radiology Routine Osteoporosis, postmenopausal 1 Occurrences starting 12/16/2021 until 01/15/2023 [facility] Work Phone: Comment on above: 1 Occurrences starting 12/16/2021 until 01/15/2023 End: 10-31-2024 DXA Skeletal system.axial Views for bone density DXA-AXIAL SKELETON Radiology Routine Osteoporosis, postmenopausal 1 Occurrences starting 10/05/2023 until 10/31/2024 [facility] Work Phone: Comment on above: 1 Occurrences starting 10/05/2023 until 10/31/2024 End: 03-07-2026 DXA Skeletal system.axial Views for bone density DXA-AXIAL SKELETON Radiology Routine Osteoporosis, postmenopausal 1 Occurrences starting 02/06/2025 until 03/07/2026 [facility] Comment on above: 1 Occurrences starting 02/06/2025 until 03/07/2026 End: 02-18-2024 DXA-AXIAL SKELETON DXA-AXIAL SKELETON Radiology Routine Osteoporosis, postmenopausal FDC 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 1 Occurrences starting 01/19/2023 until 02/18/2024 [facility] Work Phone: Comment on above: 1 Occurrences starting 01/19/2023 until 02/18/2024 EKG 12 Lead EKG 12 Lead ECG Routine 03/16/2022 1:39 PM EDT [facility] Work Phone: End: 03-23-2022 FL Greater Than 1 Hour [facility] Work Phone: Comment on above: Once for 1 Occurrences starting 03/23/20 until 03/23/2022 End: 03-23-2022 INITIATE PACU OXYGEN THERAPY PROTOCOL Initiate PACU Oxygen Therapy Protocol Respiratory Care Routine Continuous until discontinued starting 03/23/2022 [facility] Work Phone: Comment on above: Continuous until discontinued starting 0 03/23/2022 End: 03-23-2022 Intermittent pulse oximetry Pulse Oximetry Spot Check Respiratory Care Routine One Time for 1 Occurrences starting 03/23/2022 until 03/23/2022 [facility] Work Phone: Comment on above: One Time for 1 Occurrences starting 11/2021 until 03/23/2022 MG Breast Screening PARRIS SCREENIN G Radiology Routine Screening mammogram for breast cancer 10/08/2023 10:09 AM EST [facility] Work Phone: End: 03-15-2026 MR Cervical spine WO contrast MRI CERVICAL SPINE WO IVCON Radiology Routine Spinal stenosis of cervical region 1 Occurrences starting 02/13/2025 until 03/15/2026 [facility] Work Phone: Comment on above: 1 Occurrences starting 02/13/2025 until 03/15/2026 Nasal Cannula Oxygen Nasal Cannu la Oxygen Respiratory Care Routine As Needed until discontinued starting 03/23/2022 [facility] Work Phone: Comment on above: As Needed until discontinued starting 08 /11/2021 Nasal Cannula Oxygen Nasal Cannu la Oxygen Respiratory Care Routine As Needed until discontinued starting 03/23/2022 [facility] Work Phone: Comment on above: As Needed until discontinued starting Nonrebreather mask oxygen Nonreb reather mask oxygen Respiratory Care Routine As Needed until discontinued starting 03/23/2022 [facility] Work Phone: Comment on above: As Needed until discontinued starting Nonrebreather mask oxygen Nonreb reather mask oxygen Respiratory Care Routine As Needed until discontinued starting 03/23/2022 [facility] Work Phone: Comment on above: As Needed until discontinued starting Oxygen therapy [[facility] Data Set] Initiate Oxygen Therapy Protocol Respiratory Care Routine As Needed until discontinued starting 03/23/2022 [facility] Work Phone: Comment on above: As Needed until discontinued starting End: 05-19-2023 Radiologic exam chest 2 views XR CHEST 2V FRONTAL/LAT Radiology Routine PMR (polymyalgia rheumatica) (HCC) 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) 1 Occurrences starting 04/19/2022 until 05/19/2023 [facility] Work Phone: Comment on above: 1 Occurrences starting 04/19/2022 until 05/19/2023 Spirometry panel Incentive [place] Respiratory Care Routine Q1H PRN until discontinued starting 03/23/2022 [facility]: Comment on above: Q1H PRN until discontinued starting 11/2021 End: 12-16-2024 US Carotid arteries - bilateral US CAROTID ARTERIES [facility] Vascular Lab Routine Carotid atherosclerosis, bilateral 1 Occurrences starting 12/17/2023 until 12/16/2024 [facility] Comment on above: 1 Occurrences starting 12/17/2023 until 12/16/2024 End: 12-30-2021 XR ANKLE RIGHT (MIN 3 VIEWS) [facility] Work Phone: Comment on above: 1 Occurrences starting 12/30/2021 until 12/30/2021 End: 03-08-2026 XR Cervical spine AP and Lateral and oblique XR CERV OTHER 4V AP/LAT/OBL Radiology Routine Neck pain 1 Occurrences starting 02/06/2025 until 03/08/2026 [facility] Comment on above: 1 Occurrences starting 02/06/2025 until 03/08/2026 XR Cervical spine AP and Lateral and oblique XR CERV OTHER 4V AP/LAT/OBL Radiology Routine Neck pain 02/06/2025 3:58 PM EDT [facility] Immunizations Immunization Date Immunization Notes Care Provider [facility] 06-15-2023 influenza (HD-IIV4) vaccine, age 65+ yr, high dose, quadrivalent, PF (FLUZONE HIGH-DOSE) Miah Cottrell DO Work Phone: [facility] Work Phone: 06-15-2023 influenza virus vacc ine, unspecified formulation Ronna Quiroz [employer].COMPLAINT EVALUATION OFFICER Work Phone: [facility] 06-25-2022 TD(adult) unspecifie d formulation Jeremy Cohen APRN.COMPLAINT EVALUATION OFFICER Work Phone: [facility] Work Phone: 06-25-2022 tetanus and diphther ia toxoids, adsorbed, preservative free, for adult use (5 Lf of tetanus toxoid and 2 Lf of diphtheria toxoid) Jeremy Cohen APRN.COMPLAINT EVALUATION OFFICER Work Phone: [facility] 06-09-2020 influenza, high-dose , quadrivalent vaccine (FLUZONE HIGH DOSE QUADRIVALENT) Palma Lovett APRN.COMPLAINT EVALUATION OFFICER Work Phone: [facility] 06-09-2020 influenza virus vacc ine, unspecified formulation Will Ruiz MD Work Phone: [facility] 08-15-2019 pneumococcal polysaccharide vaccine, 23 valent Palma Lovett [employer].COMPLAINT EVALUATION OFFICER Work Phone: [facility] Work Phone: 07-28-2019 influenza, high dose seasonal, preservative-free Palma Lovett [employer].COMPLAINT EVALUATION OFFICER Work Phone: [facility] 11-07-2018 zoster vaccine recombinant Palma Lovett [employer].COMPLAINT EVALUATION OFFICER Work Phone: [facility] 06-07-2018 influenza, high dose seasonal, preservative-free Palma Lovett [employer].COMPLAINT EVALUATION OFFICER Work Phone: [facility] 06-07-2018 zoster vaccine recombinant Palma Lovett [employer].COMPLAINT EVALUATION OFFICER Work Phone: [facility] 06-06-2018 influenza, high dose seasonal, preservative-free Palma Lovett [employer].COMPLAINT EVALUATION OFFICER Work Phone: [facility] 06-06-2018 zoster vaccine recombinant Janie Massey PA-C Work Phone: [facility] 05-21-2017 influenza, high dose seasonal, preservative-free Palma Lovett [employer].COMPLAINT EVALUATION OFFICER Work Phone: [facility] 01-17-2017 pneumococcal conjuga te vaccine, 13 valent Palma Lovett [employer].COMPLAINT EVALUATION OFFICER Work Phone: [facility] Work Phone: 06-12-2016 influenza, high dose seasonal, preservative-free Palma Lovett [employer].COMPLAINT EVALUATION OFFICER Work Phone: [facility] 07-02-2014 influenza, seasonal, injectable Palma Lovett [employer].COMPLAINT EVALUATION OFFICER Work Phone: [facility] 04-13-2014 pneumococcal polysaccharide vaccine, 23 valent Palma Lovett [employer].COMPLAINT EVALUATION OFFICER Work Phone: [facility] 07-23-2013 influenza virus vacc ine, unspecified formulation Palma Lovett [employer].COMPLAINT EVALUATION OFFICER Work Phone: [facility] Work Phone: 01-10-2012 tetanus toxoid, redu dea diphtheria toxoid, and acellular pertussis vaccine, adsorbed Palma Lovett [employer].COMPLAINT EVALUATION OFFICER Work Phone: [facility] Work Phone: 07-14-2011 influenza virus vacc ine, unspecified formulation Palma Lovett [employer].COMPLAINT EVALUATION OFFICER Work Phone: [facility] Work Phone: Payers Date Payer Category Payer Self-pay [id number] 2025 Medicare [id number] 2023 Medicare [id number] 2021 Private Health Insurance AETNA AETNA MEDICARE SUPPLEMENT [id number] 2021-Present [phone] [address] [address] [place] [address] Indemnity [id number] 2021 Private Health Insurance [id number] 2021 Private Health Insurance [id number] 2016 Medicare MEDICARE MEDICAR E PART A AND B xxxxxxxxxx 2016-Present [phone] [place] [address] xxxxxxxxxx [id number] 2016 Medicare MEDICARE MEDICAR E PART A AND B [id number] 2016-Present [phone] [place] [address] [id number] 2015 Medicare MEDICARE MEDICAR E A AND B [id number] 2015-Present [phone] [place] [address] Medicare [id number] 2015 Medicare [id number] 2015 Unknown [id number] 2015 Medicare [id number] 2011 Unknown ESIS ESIS xxxxxx xxxxxxxx 2011-Present [phone] [address] [address] [place] [address] xxxxxxxxxxxxxx [id number] 2011 Unknown ESIS ESIS [id number] 2011-Present [address] [place] [address] [id number] Unknown [id number] Unknown [id number] Unknown [id number] Unknown [id number] Unknown [id number] Unknown [id number] 462 Unknown [id number] Unknown [id number] 462 Unknown [id number] 462 Social History Date Type Detail Facility Start: 10-31-2019 End: 06-18-2025 Tobacco smoking status NHIS Current every day smoker [facility] Work Phone: History of tobacco use Cigarette Smoker [facility] Start: 10-31-2019 End: 01-19-2023 Cigarettes smoked current (pack per day) - Reported [facility] Start: 10-31-2019 End: 2025 Alcohol intake Current non-drinker of alcohol (finding) [place], [place] Start: 1950 Sex Assigned At Not on file [facility] [place], [place] Start: 08-15-2019 End: 07-03-2022 History SDOH Alcohol Frequency 1 [facility] Start: 08-15-2019 History SDOH Alcohol Std Drinks 98 [facility] Start: 06-08-2020 End: 07-03-2022 History SDOH Social Connections Phone 5 [facility] Start: 06-08-2020 History SDOH Social Connections Get Together 3 [facility] Start: 08-15-2019 End: 07-03-2022 History SDOH Social Connections Membership 2 [facility] Start: 08-15-2019 End: 06-09-2020 History SDOH Social Connections Living 4 [facility] Start: 08-15-2019 End: 07-03-2022 History SDOH Physical Activity DPW 0 [facility] Start: 08-15-2019 Education 12 [facility] Start: 1950 Sex Assigned At Female [facility] Start: 12-16-2021 End: 07-07-2022 Exposure to SARS-CoV-2 (event) Not sure [facility] Work Phone: Start: 06-16-2016 End: 2024 Tobacco use and exposure Smokeless tobacco non-user [employer] Work Phone: Start: 03-23-2022 Tobacco Comment Patient did no t smoke today [employer] Work Phone: Start: 11-20-2020 Tobacco smoking stat us NHIS Unknown if ever smoked [facility] Start: 07-03-2022 End: 01-19-2023 Social connection and isolation panel [facility] Start: 07-21-2012 Attends [employer] Not on file [facility] How often do you hav e 6 or more drinks on 1 occasion? Never [facility] How hard is it for y ou to pay for the very basics like food, housing, medical care, and heating Not very hard [facility] Work Phone: Do you feel stress - tense, restless, nervous, or anxious, or unable to sleep at night because your mind is troubled all the time - these days [OSQ] Only a little [facility] (I/We) worried whenorma er (my/our) food would run out before (I/we) got money to buy more. Sometimes true [facility] The food that (I/we) bought just didn't last, and (I/we) didn't have money to get more. Never true [facility] At any time in the p ast 12 months, were you homeless or living in assisted [including now]? No [facility] Start: 04-27-2021 Gender identity Identifies as female gender (finding) [facility] Start: 04-27-2021 Sexual orientation Heterosexual (fin ally) [facility] Are you now , , , , never or living with a partner? [facility] How hard is it for y ou to pay for the very basics like food, housing, medical care, and heating Somewhat hard [facility] Do you feel stress - tense, restless, nervous, or anxious, or unable to sleep at night because your mind is troubled all the time - these days [OSQ] To some extent [facility] Do you feel stress - tense, restless, nervous, or anxious, or unable to sleep at night because your mind is troubled all the time - these days [OSQ] Not at all [facility] Medical Equipment Procedure Code Equipment Code Equipment Original Text Equipment Identifier Dates [id number], [id number] Start: 02-03-2020 End: 07-24-2022 Comment on above: Use as directed to a dminister Forteo Use as directed to a dminister methotrexate. CASSY JAIME FDA Start: 07-09-2020 CASSY JAIME FDA Start: 07-09-2020 CASSY JAIME FDA Start: 07-09-2020 CLIPCASSY FDA Start: 07-09-2020 CLIPCASSY FDA Start: 07-09-2020 CLIPCASSY FDA Start: 07-09-2020 CASSY JAIME FDA Start: 07-09-2020 CASSY JAIME FDA Start: 07-09-2020 CLIPCASSY FDA Start: 07-09-2020 CASSY JAIME FDA Start: 07-09-2020 CASSY JAIME FDA Start: 07-09-2020 CASSY JAIME FDA Start: 07-09-2020 CASSY JAIME FDA Start: 07-09-2020 CASSY JAIME FDA Start: 07-09-2020 Goals Date Patient Goal Desired Activity /State Functional Status Date Assessment Result Facility 01-07-2015 Are you deaf, or do you have serious difficulty hearing No 01/07/2015 3:27 PM LISAT Alena Jiang [facility] 01-07-2015 Are you blind, or do you have serious difficulty seeing, even when wearing glasses No 01/07/2015 3:27 PM Alena Strauss [facility] 01-07-2015 Do you have serious difficulty walking or climbing stairs No 01/07/2015 3:27 PM Alena Strauss [facility] 01-07-2015 Do you have difficul ty dressing or bathing No 01/07/2015 3:27 PM Alena Strauss [facility] 01-07-2015 Because of a physica l, mental, or emotional condition, do you have difficulty doing errands alone such as visiting a physician's office or shopping No 01/07/2015 3:27 PM Alena Strauss [facility] Mental Status Date Assessment Result Facility 06-18-2025 Cognitive function Level Of Cons ciousness Drowsy [facility] Work Phone: 01-07-2015 Because of a physica l, mental, or emotional condition, do you have serious difficulty concentrating, remembering, or making decisions No 01/07/2015 3:27 PM EDT Alena Jiang [facility] Clinical Notes 01-18-2012 to 06-18-2025 Note Date & Type Note Facility 06-18-2025 Note [facility] Medical Records Department [address] [place] [address] History Physical Exam 06/18/25 0741 MR#: [id number] Acct: [id number] Name: CECELIA QUIROZ Rep #: [id number] : 1950 75 From: Madeline Obrien MD PCP: Dr. Miah Cottrlel DO Status:[facility] Location: [place] [address] History and Physical Date of Admission: 06/18/25 Date of Service: 06/09/25 MR#: [id number] Acct: [id number] Name: SEAMUSCECELIA Baumann Rep #: [id number] : 1950 Provider: Dr. Madeline Obrien MD Age/Sex: 75/F Location: [facility] Status: Signed Intake Vital Signs 05/26/2511:49 06/09/2513:55 Height 5 ft 3 in 5 ft 3 in Weight: 139 lb 139 lb BMI 24.6 24.6 BP 131/70 H 137/69 H Pulse 63 82 Intake Visit Reasons: cystoscopy and pelvic exam Chief Complaint: cystoscopy and pelvic exam [employer] Network [employer] Required: No Accompanied by: self Is patient [...] denosumab 60 mg/mL subcutaneous 60 mg subcut [id number] 05/26/25 06/09/25 History syringe (Prolia) latanoprost 0.005 [...] wheezing Lane/Lymp Hematologic/Lymph (more content not included)... [facility] 06-09-2025 Progress note [facility] 06-09-2025 Progress note Note Date/Time June 09, 2025 3:09pm [facility] [address], [address] [place] [address] OFFICE VISIT Date of Service: 06/09/25 MR#: [id number] Acct: [id number] Name: CECELIA QUIROZ Rep #: [id number] : 1950 Provider: Dr. 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 Required: No Accompanied by: self Is patient [...] 50 mg tablet 50 mg PO DAILY 11/20/2005/21 History denosumab 60 mg/mL subcutaneous 60 mg subcut [id number] 05/26/25 06/09/25 History syringe (Prolia) latanoprost 0.005 [...] healthy appearing, comfortable and no acute distress [facility] Head: normocephalic and atraumatic Ears: hearing grossly [...] Tavarez on 5 13:58 Off Ur Spec [place] 1.010 Last Edit by Angelica Tavarez on [...] fallen in the past year?: No 06/09/25 [id number] <Electronically signed by Madeline Obrien MD> Date _ Madeline Obrien MD Cosigner Signature: Date (if applicable) CC: ~ [facility] Work Phone: [phone]) 829-267510-07-2025 Evaluation note* Diagnosis Onset Date Resolution Status Admit Date Gross hematuria acute May 262024 11:40am Nocturia acute May 26, 2 11:40am Overactive bladder acute 2024 11:40am Urge incontinence acute May 26, 2025 11:40am Vaginal atrophy acute May 262024 11:40am Gross hematuria acute May 212024 1:28pm Nocturia acute June 09, 2025 1:28pm Overactive bladder acute 2024 1:28pm Urge incontinence acute June 09, 2025 1:28pm Vaginal atrophy acute May 212024 1:28pm [facility] Work Phone: [phone] NoteHNO ID: [id number] Author: FILIPE MCNEILL RT(R) Service: ? Author [...] PATIENT PRESENTS WITH AN IMPLANTABLE OR ATTACHED PRESIDENT AND CHIEF OPERATING OFFICER: No RADIOLOGY DEPARTMENT: Bone Density PERIPHERAL IV DATA: Not applicable SIGNED BY: RT Bridger(R) May 15, 2025 1:50 [facility]09-02-2025 NoteHNO ID: [id number] Author: MARKO WOOD MD Service: ? Author Type: Physician Type: Progress Notes Filed: 04/21/2025 09:37 Note Text: [facility] - FOLLOW UP EVALUATION Recording using ambient Outrigger [employer] software for draft documentation of the visit was discussed with the patient/authorized rental representative; all questions welcomed and answered. Patient/authorized rental representative agreed to proceed Miah Cottrell DO [id number] [facility] [id number] Dear Miah Cottrell DO: I had the [...] please feel free to send me a RFEyeD message or contact the office - Interval [...] Office Visit from 03/17/2025 in Family Medicine [place] Office Visit from 02/13/2025 in Pain Management [...] (1 bottle/shot/glass+): No Exercise (more content not included)...[facility]09-02-2025 History of Present illness Narrative* Marko Wood MD - 04/21/2025 9:36 AM EDT [facility] - FOLLOW UP EVALUATION Recording using Atritech software for draft documentation of the visit was discussed with the patient/authorized rental representative; all questions welcomed and answered. Patient/authorized rental representative agreed to proceed Miah Cottrell DO [address] [facility] [id number] Dear Miah Cottrell DO: I had the [...] appointment, pleasefeel free to send me a RFEyeD message or contact the office - Interval [...] Family Medicine [place] Office Visit from 02/13/2025 in[facility] Management [facility] Physical [facility] T Score 44.9 [...] tremor in both hands; able to perform fmrumg-kz-enet and xwkhyb-iw-mlvpgv tests without difficulty; rapid alternating movements intact. [...] dose escalation; prescription refilled and sent to [facility] in [place]. - Patient denies significant side effects; no [...] Sincerely, Marko Wood MD documented in this encounterRegency Hospital [facility]08-05-2025 NoteHNO ID: [id number] Author: ISABELA MURPHY APRN.COMPLAINT EVALUATION OFFICER Service: ? Author Type: Nurse Practitioner Type: Progress Notes Filed: 03/24/2025 11:45 Note Text: Patient declined financial systems director. Cecelia is a 74 year old who [...] Living2 SAB0 IAB0 Ectopic0 Multiple0 Live Births0 Border Inspector History LMP: Hysterectomy Age at Menarche: 12 Age at First : Age at Menopause: Border Inspector History Comments: Sexual Activity: Yes; Male Contraception: No contraception data on record PAST MEDICAL HISTORY Diagnosis Date Actinic keratosis Autoimmune disease (HCC) Cancer (HCC) 1982 Uterine Cephalalgia Cholelithiasis Depression Diarrhea Disorder of bone and cartilage, unspecified Diverticulitis of colon (without mention of hemorrhage)(562.11) 2003 Dysphagia Essential hypertension 12/28/2021 GCA (giant cell arteritis) ([facility]) bx negative GERD (gastroesophageal reflux disease) Glaucoma [...] life Coronary Artery Disease Father Hx of [place], age 71 Tremor Mother Hypertension Mother Cancer [...] discussed with the Patient or Patient's Authorized Kitchenhand. As applicable, any other physician, advance practice provider, medical student, or other health professional student that will be observing or involved in the sensitive examination for educational or training purposes was discussed with the Patient or Authorized Kitchenhand. The Patient or Authorized Kitchenhand has agreed to proceed with the sensitive examination. (Sensitive examination includes inspection and/or palpation of the breasts, pelvis, prostate and anorectal regions). EXAM: BP 126/88 Ht 5' 4.685 (1.64m) Wt 137 lb 3.2 oz (62.2kg) BMI 23.05 kg/(m2). G (more content not included)...[facility]08-04-2025 NotePatient Outreach (PULMMN) CECELIA QUIROZ ([id number]) 1950 F Date Time Provider Department 03/23/25 JOVITA SUERO During your visit today, we recorded the following information about you: Allergies As of Date: 03/23/2025 Noted Allergy Reaction SULFASALAZINE 03/26/2024 2 - Rash Date Reviewed: 02/13/2025 Reviewed by: Angela Multani MA - Fully Assessed Visit Diagnosis:Tobacco abuse [Z72.0] Order(s):CONSULT L[facility]G [facility]ER [facility]CREENING [facility] [0348402] Order #: [id number]: 1 FUTURE Prescriptions as of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 Mammogram Screening due on [...] BP daily and send in results via S[employer]ft, will then decide if there is a [...] stool. - H PYLORI IGG AB Wily Abarca, CARMINA.COMPLAINT EVALUATION OFFICER documented in this encounterRegency Hospital [facility]09-24-2024 Telephone encounter Note * Telephone Encounter - [...] Anca Gross May 13, 2024 10:19 AM [facility]09-24-2024 Miscellaneous Notes* Telephone Encounter - Anca Spencer [...] 13, 2024 10:19 AM documented in this encounterRegency Hospital [facility]08-27-2024 History of Present illness Narrative* Marko Wood MD - 04/15/2024 7:37 AM EDT [facility] - FOLLOW UP EVALUATION Miah Cottrell DO [id number] [facility] [id number] Dear Miah Cottrell DO: I had the [...] appointment, pleasefeel free to send me a RFEyeD message or contact the office - Interval [...] Office Visit from 01/09/2024 in Family Medicine [facility] T Score 44.9 37.4 [...] appointment, pleasefeel free to send me a RFEyeD message or contact the office - Updated [...] Sincerely, Marko Wood MD documented in this encounterRegency Hospital [facility]08-12-2024 History of Present illness Narrative* Ady Mackenzie [...] date: Actinic keratosis No date: Autoimmune disease ([facility]) 1982: Cancer ([facility]) Comment: Uterine No date: Cephalalgia No date: Cholelithiasis No date: Depression No date: Diarrhea No date: Disorder of bone and cartilage, unspecified 2003: Diverticulitis of colon (without mention of hemorrhage)(562.11) No date: Dysphagia 12/28/2021: Essential hypertension No date: GCA (giant cell arteritis) ([facility]) Comment: bx negative No date: GERD (gastroesophageal reflux disease) No date: Glaucoma 1999: Hematuria Comment: had workup including cystoscopy, etc. - entire workup negative. No longer happening. No date: IBS (irritable bowel syndrome) No date: Iron deficiency anemia, unspecified Comment: ? related to UGI source from NSAID's No date: Mixed hyperlipidemia No date: Palpitations No date: PMR (polymyalgia rheumatica) ([facility]) No date: Raynaud's disease /phenomenon No date: [...] improve. Ady Mackenzie MD documented in this encounterRegency Hospital [facility]08-07-2024 Instructions* Patient Instructions* Carly Ramirez APRN.CNP - 03/26/2024 1:21 PM EDT Recommend stopping Sulfasalazine at this time and letting provider know it was stopped. If rash notimproving follow-up with PCP documented in this encounterRegency Hospital [facility] East08-07-2024 History of Present illness Narrative* Carly Ramirez [...] date: Actinic keratosis No date: Autoimmune disease ([facility]) 1982: Cancer ([facility]) Comment: Uterine No date: Cephalalgia No date: Cholelithiasis No date: Depression No date: Diarrhea No date: Disorder of bone and cartilage, unspecified 2003: Diverticulitis of colon (without mention of hemorrhage)(562.11) No date: Dysphagia 12/28/2021: Essential hypertension No date: GCA (giant cell arteritis) ([facility]) Comment: bx negative No date: GERD (gastroesophageal reflux disease) No date: Glaucoma 1999: Hematuria Comment: had workup including cystoscopy, etc. - entire workup negative. No longer happening. No date: IBS (irritable bowel syndrome) No date: Iron deficiency anemia, unspecified Comment: ? related to UGI source from NSAID's No date: Mixed hyperlipidemia No date: Palpitations No date: PMR (polymyalgia rheumatica) ([facility]) No date: Raynaud's disease /phenomenon No date: [...] Advance Directive Discussion Never done Covid-19 Vaccine( - season) due on 06/15/2024 RSV Vaccine(1 - [...] to ER with red flag symptoms Carly Podlogar, PINSETTER MECH[employer]IC [employer].COMPLAINT EVALUATION OFFICER Prescription instructions reviewed with patient as applicable. [...] Level: 4 - Moderate documented in this encounterRegency Hospital [facility] East07-30-2024 History of Present illness Narrative* Magdalene Bradford MD - 03/18/2024 3:19 PM EDT On 03/18/2024, I had the pleasure of evaluating Cecelia Quiroz in a follow-up [facility] Rheumatology appointment for GCA, PMR and osteoporosis. This Team Access Model visit is a virtual encounter utilizing both video and audio components. It required patient-provider interaction for the medical decision making as documented below. My name and active licensure have been communicated. The patient's identity and physical location were verified at the time of this visit. Either the patient or their legal rental representative has been informed of the risks [...] Essential hypertension 12/28/2021 GCA (giant cell arteritis) ([facility]) bx negative GERD (gastroesophageal reflux disease) Glaucoma Hematuria 1999 had workup including cystoscopy, etc. - entire workup negative. No longer happening. IBS (irritable bowel syndrome) Iron deficiency anemia, unspecified ? related to UGI source from NSAID's Mixed hyperlipidemia Palpitations PMR (polymyalgia rheumatica) ([facility]) Raynaud's disease /phenomenon Sciatica Steroid long-term use [...] life Coronary Artery Disease Father Hx of [place], age 71 Tremor Mother Hypertension Mother Cancer [...] No Family History SOCIAL HISTORY: Lives in [place]. Works. Family lives in [place] Tobacco use: 1 ppd Alcohol use: None [...] weeks after starting. Notify of results via Bloomz - Tylenol prn 2. Osteoporosis: In , [...] prolia Magdalene Bradford MD documented in this encounterRegency Hospital [facility]07-12-2024 Telephone encounter Note * Telephone Encounter - Cathy Maravilla LPN - 02/29/2024 3:25 PM EDT [facility]07-12-2024 Miscellaneous Notes* Telephone Encounter - Cathy Maravilla [...] these. Melony Peraza RN documented in this encounterRegency Hospital [facility] East07-12-2024 Telephone encounter Note * Telephone Encounter - Wily Abarca APRN.CNP - 02/29/2024 3:06 PM EDT In the outbox in our office. Wily Abarca APRN.IRINEO [facility]07-12-2024 Telephone encounter Note* Telephone Encounter - Colleen Cornelius MA - 02/29/2024 3:04 PM EDT Please reprint script. Unable to locate. Colleen Cornelius MA [facility]07-11-2024 Telephone encounter Note* Telephone Encounter - Keley Rousseau RN - 02/28/2024 1:45 PM EDT Spoke with patient, agrees to appointment change. Scheduled accordingly. Keely Rousseau RN [facility]07-11-2024 Miscellaneous Notes* Telephone Encounter - Keely Rousseau [...] she states please advise. documented in this encounterRegency Hospital [facility] East07-11-2024 Telephone encounter Note * Telephone Encounter - Melony Peraza RN - 02/28/2024 12:27 PM EDT Patient calling to request order for BP monitor kit be faxed to [facility]. Was sent to [facility] but they don't dispense these. Melony ePraza RN [facility]07-11-2024 Telephone encounter Note* Telephone Encounter - Keely Rousseau RN - 02/28/2024 11:21 AM EDT Spoke with patient, states she took last 1/2 tablet of Plaquenil on Sunday02/25/2024 - dizziness, diarrhea, weakness subsided late Sunday evening( 02/26/2024) , she has felt fine since. Scheduled VV with provider for to discuss further options. Advised this message will be relayed to provider. Keely Rousseau RN T [facility]07-11-2024 Telephone encounter Note* Telephone Encounter - Carmencita Whitten - 02/28/2024 11:11 AM EDT Patient calling with update of the PLAQUENIL and states symptoms were even worse this time weak dizzy and diarrhea and has stopped taking it she states please advise. [facility]07-01-2024 History of Present illness Narrative* QuirozRonna APRN.COMPLAINT EVALUATION OFFICER - 02/18/2024 11:00 AM EDT Chief Complaint [...] life Coronary Artery Disease Father Hx of [place], age 71 Tremor Mother Hypertension Mother Cancer [...] Patient agreeable to treatment plan. Ronna Walsh APRN.COMPLAINT EVALUATION OFFICER [address] [place] [address] documented in this encounterRegency Hospital [facility] East06-20-2024 History of Present illness Narrative* Anca Rodriguez MD - 02/07/2024 1:02 PM EDT Chief Executive offered: Patient declines. Cecelia Quiroz is a 73 year old female who presents for problem visit vaginal yeast infection for 6 days. HPI: Started have vulvar irritation on Sunday. Minimal discharge. Had some blood on wiping this am. OB History T0 L2 SAB0 IAB0 Ectopic0 Multiple0 Live Births0 Border Inspector History LMP: Hysterectomy Age at Menarche: Age at First : Age at Menopause: Border Inspector History Comments: Sexual Activity: Yes; Male Contraception: [...] life Coronary Artery Disease Father Hx of [place], age 71 Tremor Mother Hypertension Mother Cancer [...] external genitalia normal, normal Bartholin's glands, urethra, Kemah's glands, no vulvar lesions, good vaginal support, physiologic discharge present, normal appearing perineal body and perianal region, vulvar irritation along outer labia bilateral. No lesions. BIMANUAL: deferred NEURO: alert and oriented x3,exam grossly non-focal EXTREMITIES: normal ASSESSMENT AND PLAN: Encounter Diagnosis ICD-10-CM 1. Yeast dermatitis B37.2 nystatin-triamcinolone (MYCOLOG) ointment Mycolog cream to labia. No vaginal involvement Anca Rodriguez MD documented in this encounterRegency Hospital [facility] East06-18-2024 Telephone encounter Note * Telephone Encounter - Keely Rousseau RN - 02/05/2024 1:45 PM EDT Spoke with patient, relayed message below. Verbalizes understanding, agrees with plan. Will notify office if symptoms continue/worsen. Keely Rousseau RN [facility]06-18-2024 Miscellaneous Notes* Telephone Encounter - Keely Rousseau [...] getting worse. She can be reached at [phone]. documented in this encounterRegency Hospital [facility] East06-18-2024 Telephone encounter Note * Telephone Encounter - Magdalene Bradford MD - 02/05/2024 1:40 PM EDT Sounds like she's having side effects from HCQ. She should hold the HCQ completely for now. Once the symptoms subside, she could resume at a very low dose of 1/2 tablet every other day if she wanted to see if that would be better tolerated. Thanks. [facility]06-18-2024 Telephone encounter Note* Telephone Encounter - Keely [...] and to avoid NSAIDs. Keely Rousseau RN [facility]06-18-2024 Telephone encounter Note* Telephone Encounter - Yenny Mandel - 02/05/2024 12:45 PM EDT The first few days the patient took hydroxychloroquine 200 mg she was fine. Last weekend she started to experience headaches and diarrhea, and the headaches are getting worse. She can be reached at [phone]. [facility]06-10-2024 Instructions* Patient Instructions* Magdalene Bradford MD - [...] for the blood draw. documented in this encounterRegency Hospital [facility] East06-10-2024 History of Present illness Narrative* Magdalene Bradford MD - 01/28/2024 12:47 PM EDT On 01/28/2024, I had the pleasure of evaluating Cecelia Quiroz in a follow-up [facility] Rheumatology appointment for GCA, PMR and osteoporosis. [...] life Coronary Artery Disease Father Hx of [place], age 71 Tremor Mother Hypertension Mother Cancer [...] No Family History SOCIAL HISTORY: Lives in [place]. Works. Family lives in [place] Tobacco use: 1 ppd Alcohol use: None [...] - Resume HCQ 200mg/day -, 200mg bid Sa/. Last normal Sep (but then off HCQ). [...] by me in the office today. Lot [id number]. No PA needed given medicare a/b - Check labs in June in preparation for the Jul prolia dose. Notify of results via [employer]. Verbal and written reminders provided. - Continue [...] Completed the covid vaccination series in November, [employer]. - Advised to continue follow-up with PCP for routine health maintenance and malignancy screening 6 months w/Palma for prolia, 6 mon after with rheum RN for prolia, 6 mon after with me for prolia Magdalene Bradford MD documented in this encounterRegency Hospital [facility]06-10-2024 History of Present illness Narrative* Ronna Quiroz APRN.COMPLAINT EVALUATION OFFICER - 01/28/2024 10:27 AM EDT Chief Complaint Patient presents with: b/p check: Pt brought home blood pressure with her, does not think b/p meds helping head feels funny. HPI Cecelia Quiroz is a 73 year old female who presents here today for Above Complaints. Cecelia is an established patient of Dr. Cottrell, and myself. Was seen in office on [...] of LH/dizziness. 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 Past medical history, appointments, [...] life Coronary Artery Disease Father Hx of [place], age 71 Tremor Mother Hypertension Mother Cancer [...] Patient agreeable to treatment plan. Ronna Walsh APRN.COMPLAINT EVALUATION OFFICER [address] [place] [address] documented in this encounterRegency Hospital [facility] East05-24-2024 Telephone encounter Note * Telephone Encounter - Eliana Germain LPN - 01/11/2024 11:02 AM EDT Phoned patient went over result, notes from Dr Cottrell with understanding. [facility]05-24-2024 Miscellaneous Notes* Telephone Encounter - Eliana Germain [...] disease. Miah Cottrell DO documented in this encounterRegency Hospital [facility] East05-24-2024 Telephone encounter Note * Telephone Encounter - Miah Cottrell DO - 01/11/2024 9:50 AM EDT Please inform patient that overall her CT chest is stable No new changes See below IMPRESSION: Stable left lung nodule. No new or enlarging nodules identified. Mild emphysema. Remote granulomatous disease. Miah Cottrell DO [facility]05-22-2024 Telephone encounter Note* Telephone Encounter - Eliana Germain LPN - 01/09/2024 10:53 AM EDT Patient returned call and went over notes below from Dr Cottrell with understanding. Patient said she had appt with LINE INSTALLER REPAIRER this morning and going to try the blood pressure medication she added today since she was having headaches. [facility]05-22-2024 Miscellaneous Notes* Telephone Encounter - Eliana Germain LPN - 01/09/2024 10:53 AM EDT Patient returned call and went over notes below from Dr Cottrell with understanding. Patient said she had appt with LINE INSTALLER REPAIRER this morning and going to try the [...] dysplasia Miah Cottrell DO documented in this encounterRegency Hospital [facility] East05-22-2024 History of Present illness Narrative* Ronna Quiroz APRN.COMPLAINT EVALUATION OFFICER - 01/09/2024 8:55 AM EDT Chief Complaint Patient presents with: /p up for passed couple months of and on: B/p up fo passed couple months, getting headaches HPI Ceceliakalpana Quiroz is a 73 year [...] life Coronary Artery Disease Father Hx of [place], age 71 Tremor Mother Hypertension Mother Cancer [...] Patient agreeable to treatment plan. Ronna Walsh APRN.COMPLAINT EVALUATION OFFICER [address] [place] [address] documented in this encounterRegency Hospital [facility] East05-22-2024 Telephone encounter Note * Telephone Encounter - Cathy Maravilla LPN - 01/09/2024 8:31 AM EDT ;Left message to return call. 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 We can send her to a vascular specialist for further testing if she is having a lot of LH/dizziness. Miah Cottrell DO [facility]05-21-2024 Telephone encounter Note* Telephone Encounter - Patricia Madsen RN - 01/08/2024 4:54 PM EDT Pt called and is notified of providers results. Pt asking what the fibromuscular dysplasia means. Patricia Madsen RN [facility]05-21-2024 Telephone encounter Note* Telephone Encounter - Miah Cottrell DO - 01/08/2024 4:39 PM EDT Please inform patient that her carotid artery US is overall stable, mild plaque and signs of fibromuscular dysplasia Miah Cottrell DO [facility]05-21-2024 History of Present illness Narrative* Yazmin Cruz [...] PATIENT PRESENTS WITH AN IMPLANTABLE OR ATTACHED PRESIDENT AND CHIEF OPERATING OFFICER: No RADIOLOGY DEPARTMENT: CT; Exam(s) Completed: Chest PERIPHERAL IV DATA: Not applicable SIGNED BY: RT Nabor(R) January 08, 2024 3:46 PM documented in this encounterRegency Hospital [facility] East04-29-2024 History of Present illness Narrative* Miah Cottrell [...] life Coronary Artery Disease Father Hx of [place], age 71 Tremor Mother Hypertension Mother Cancer [...] ICD9: 446.5, 725, ICD10: M31.5 F/u with [employer] Accounts Manager 12. Osteoporosis, postmenopausal - ICD9: 733.01, ICD10: [...] ICD9: 268.9, ICD10: E55.9 Continue supplement Miah Cottrell DO To ER if develops chest pain, shortness of breath, or severe worsening of symptoms. Discussed risks, benefits, alternatives, and potential side effects of medications. Patient expressed understanding and agreed with the plan. Miah Cottrell DO [address] [place] [address] documented in this encounterRegency Hospital [facility]04-15-2024 Miscellaneous Notes* Telephone Encounter - Keely Rousseau, REINALDO - 12/03/2023 8:28 AM EDT Patient has [...] URICACID Zara Cheema MA documented in this encounterRegency Hospital [facility] East03-14-2024 Miscellaneous Notes* Telephone Encounter - Mali Singh OCCA - 11/01/2023 8:39 AM EDT TC to patient who verbalized understanding of providers message below with no questions at this time. HAIDER Cornell * Telephone Encounter - Miah Cottrell DO - 10/31/2023 10:21 PM EDT Please inform patient that her labs are all stable that I ordered Miah Cottrell DO documented in this encounterRegency Hospital [facility] East02-21-2024 Miscellaneous Notes* Letter - Coordinator, Mammography - 10/10/2023 6:43 AM EST October 10, 2023 PID: [id number] Cecelia Quiroz [id number] [place] [address] Dear Ms. Quiroz, We are pleased to [...] report will be kept on file at [facility] as part of your permanent medical record and are available for your continuing care. Thank you for allowing us to help in meeting your health care needs. Sincerely, Dr. Hunt Interpreting Radiologist [facility] (Normal over 40) documented in this encounterRegency Hospital [facility] East02-19-2024 History of Present illness Narrative* Tamika Tyson [...] PATIENT PRESENTS WITH AN IMPLANTABLE OR ATTACHED PRESIDENT AND CHIEF OPERATING OFFICER: No RADIOLOGY DEPARTMENT: Mammography PERIPHERAL IV DATA: Not applicable SIGNED BY: Stella Daniel October 08, 2023 10:09 AM documented in this encounterRegency Hospital [facility]02-16-2024 History of Present illness Narrative* Palma Lovett APRN.COMPLAINT EVALUATION OFFICER - 10/05/2023 3:00 PM EST Follow-up [facility] Rheumatology appointment for GCA, PMR and osteoporosis. [...] vitamin D. No falls or fractures since [facility]. She is taking prednisone 10 mg daily. Sites of pain: neck, b/l shoulder, knees, pain rated 6/10 Muscle weakness: upper extremities Headaches: reports one temporal headache since the [facility] Jaw claudication: none Scalp tenderness: yes Vision [...] life Coronary Artery Disease Father Hx of [place], age 71 Tremor Mother Hypertension Mother Cancer [...] No Family History SOCIAL HISTORY: Lives in [place]. Works. Family lives in [place] Tobacco use: 1 ppd Alcohol use: None [...] labs in 10/2023. Notify of results via Sellft - Continue calcium and vitamin D supplementation - Check DEXA in Jan (for oil heaterman steroid use)-order placed and she was reminded [...] which included preparing to see the patient, [id number] patient care, completing clinical documentation, performing a medically appropriate examination, ordering medications, tests, or procedures, and communicating results to the patient/fam shane/caregiver. Palma Lovett APRN.IRINEO documented in this encounterRegency Hospital [facility] East02-13-2024 Instructions* Patient Instructions* Palma Lovett APRN.CNP - 10/02/2023 4:15 PM EST Please schedule bone density on the same machine as prior after 02/27/2024 Please have labs done around 11/07/2023 documented in this encounterRegency Hospital [facility] East12-04-2023 History of Present illness Narrative* Donna Mattson RN - 07/23/2023 10:17 AM EST Patient denies fractures or falls since last visit. Yes Patient denies any dental work in last 2 months or upcoming 2 months. Yes Patient given Prolia SQ in the right arm Patient tolerated injection well. Lot #: [id number] Exp. Date: 10/17/2025 Last Vitamin D & Serum Calcium: Calcium (mg/dL) Date Value 2021 9.2 Calcium, Total (mg/dL) Date Value 05/09/2023 9.5 Vitamin D 25 Hydroxy (ng/mL) Date Value 05/09/2023 30.1 09/09/2021 44.3 Last DXA: 03/02/2023 Visit scheduled. Next Prolia Appointment: 01/28/2024 Donna Mattson RN documented in this encounterRegency Hospital [facility] East11-27-2023 Miscellaneous Notes* Telephone Encounter - Palma Lovett APRN.IRINEO - 07/16/2023 3:17 PM EST Order signed. Palma Cuellar APRN.COMPLAINT EVALUATION OFFICER * Telephone Encounter - Donna Mattson RN [...] 12/2023 Donna Mattson RN documented in this encounterRegency Hospital [facility] East10-27-2023 Instructions* Patient Instructions* Miah Cottrell DO - 06/15/2023 12:54 PM EDT Magnesium glycinate or gluconate or oxide 250-400 mg a day in the evening to help neck pain documented in this encounterRegency Hospital [facility] East10-27-2023 History of Present illness Narrative* Miah Cottrell, DO - 06/15/2023 12:50 PM EDT CC: [...] plan. See patient instructions. Miah Cottrell DO [address] [place] [address] documented in this encounterRegency Hospital [facility] East09-26-2023 Miscellaneous Notes* Telephone Encounter - Nerissa Campa [...] 3:47 PM EDT Throid FNA results from [facility] Scan on 05/04/2023 9:40 AM by Provider, NI Hernandez: Miscellaneous Clinical Documents Nerissa Campa LPN documented in this encounterRegency Hospital [facility] East09-18-2023 History of Present illness Narrative* Will Ruiz [...] to repeat fine-needle aspirations documented in this encounterRegency Hospital [facility] East09-11-2023 Instructions* Patient Instructions* Nerissa Campa LPN - 04/30/2023 2:48 PM EDT The following instructions are important for you related to your office visit today with the [facility] General Surgeons. Instructions After THYROID FINE [...] you have any questions or concerns @ [phone]. Please make an appointment to follow up in one week with your physician and thank you for choosing the [facility]. If you note any additional difficulties, questions, or concerns, you should contact our office immediately @ [phone] and ask to be transferred to the General Surgery department. documented in this encounterRegency Hospital [facility] East09-11-2023 History of Present illness Narrative* Will Ruiz [...] applicable. Nerissa Campa LPN documented in this encounterRegency Hospital [facility] East08-31-2023 History of Present illness Narrative* Marko Wood MD - 04/19/2023 12:22 PM EDT [facility] - FOLLOW UP EVALUATION Miah Cottrell DO [address] [facility] [id number] Dear Miah Cottrell DO: I had the [...] Office Visit from 03/12/2023 in Family Medicine [place] Appointment from 12/08/2022 in Rheumatology [facility] Physical [...] appointment, pleasefeel free to send me a RFEyeD message or contact the office - Updated [...] Sincerely, Marko Wood MD documented in this encounterRegency Hospital [facility] East08-31-2023 Instructions* Patient Instructions* Marko Wood MD - [...] appointment, pleasefeel free to send me a RFEyeD message or contact the office - Your B12 was somewhat low end of normal. Try taking a B12 supplement - Movement Disorders Medication Schedule: Medications Bed metoprolol ER 50 mg daily primidone 250 mg 1 Return at or around: 04/19/24 If there are any concerns before your next visit, please call or you can send a message through Bloomz. You can also now schedule and select appointments through Bloomz. Marko Wood MD documented in this encounterRegency Hospital [facility] East08-30-2023 Miscellaneous Notes* Telephone Encounter - Marina Oliveira [...] assist in scheduling. Thank you, Ronna Quiroz APRN.COMPLAINT EVALUATION OFFICER * Telephone Encounter - Patricia Madsen RN [...] opinion by General surgeon Dr. Ruizor Dr. Marítnez to determine if a biopsy is needed Miah Cottrell DO documented in this encounterRegency Hospital [facility] East08-10-2023 Miscellaneous Notes* Telephone Encounter - Cathy Maravilla [...] and advise. Cesia Teixeira documented in this encounterRegency Hospital [facility] East07-27-2023 Miscellaneous Notes* Telephone Encounter - Cathy Maravilla [...] makes sure to discuss this with her [employer] Accounts Manager Miah Cottrell DO documented in this encounterRegency Hospital [facility] East07-24-2023 History of Present illness Narrative* Jovanna Carvalho [...] 12, 2023 2:06 PM documented in this encounterRegency Hospital [facility] East07-17-2023 Miscellaneous Notes* Telephone Encounter - Ana Rodriguez [...] improved in all sites. documented in this encounterRegency Hospital [facility] East07-14-2023 Miscellaneous Notes* Telephone Encounter - Eliana Hartman - 03/02/2023 12:04 PM EDT Pt had a bone density test this past Sunday and hasn't heard anything yet. She is requesting a callback with some information on the results. documented in this encounterRegency Hospital [facility] East07-10-2023 History of Present illness Narrative* Filipe Mcneill [...] 26, 2023 12:55 PM documented in this encounterRegency Hospital [facility] East06-21-2023 Miscellaneous Notes* Telephone Encounter - Janie Massey [...] URICACID Prema Miguel MA documented in this encounterRegency Hospital [facility] East06-19-2023 Miscellaneous Notes* Telephone Encounter - Eliana Hartman - 02/05/2023 3:36 PM EDT Sent mcm cancelling appt on 08/03/23 documented in this encounterRegency Hospital [facility] East06-02-2023 Instructions* Patient Instructions* Janie Massey PA-C - [...] your usual activities immediately. 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 PMR/GCA: Steroid-responsive shoulder/hip pain and CT neck with findings suspicious for vasculitis with negative TA biopsies x2. Has tried: HCQ, MTX PO/SC and actemra without improvement. Off methotrexate. Overall joint pain is relatively stable, intermittent, with hand involvement. [place] pain comes and goes but doesn't seem [...] Completed the covid vaccination series in November, [employer]. - Advised to continue follow-up with PCP for routine health maintenance and malignancy screening Plan As above No follow-ups on file. I spent a total of 32 minutes on the date of the service which included preparing to see the patient, [id number] patient care, completing clinical documentation, obtaining and/or reviewing separately obtained history, performing a medically appropriate examination, counseling and educating the pat ient/family/caregiver, and ordering medications, tests, or procedures. Janie Massey PA-C cc: PCP: Miah Cottrell [address] [place] [id number] Subjective INTERVAL HISTORY She denies Shoulder pain [...] Moderate diffuse cervical spondylosis with interval progression. 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 - entire workup negative. No longer happening. IBS (irritable bowel syndrome) Iron deficiency anemia, unspecified ? related to UGI source from NSAID's PMR (polymyalgia rheumatica) ([facility]) Raynaud's disease /phenomenon Steroid long-term use Tobacco [...] life Coronary Artery Disease Father Hx of [place], age 71 Tremor Mother Hypertension Mother Cancer [...] Exam Data (across time) documented in this encounterRegency Hospital [facility] East05-04-2023 Miscellaneous Notes* Telephone Encounter - Cathy Maravilla [...] patient. Eliana Thomas Pss documented in this encounterRegency Hospital [facility] East05-04-2023 Miscellaneous Notes* Telephone Encounter - Palma Lovett [...] Cheema MA * Telephone Encounter - Valentina Gross - 12/21/2022 8:10 AM EDT Patient calling to say that she is completely out of the following: predniSONE (DELTASONE) 10 mg tablet Preferred pharmacy: [address], [place]. documented in this encounterRegency Hospital [facility] East04-04-2023 History of Present illness Narrative* Chelsea Bedoya MA - 11/21/2022 8:41 AM EDT POPULATION HEALTH NAVIGATION OUTREACH Action/FYI [place] MESSAGE SENT M31.5 - 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) - [id number] Last Billed 07/24/2022 ANNUAL MEDICARE WELLNESS EXAM Patient Identified by Name and : NO Outreach Outcome/Action Unable to reach patient: Left message [employer] message sent Did you use a PCP [...] 21, 2022 8:41 AM documented in this encounterRegency Hospital [facility] East03-16-2023 Miscellaneous Notes* Telephone Encounter - Colleen Cornelius - 11/02/2022 7:49 AM EDT Please see pt message regarding results US left breast completed yesterday. Colleen Cornelius documented in this encounterRegency Hospital [facility] East03-15-2023 History of Present illness Narrative* Johanna Velázquez [...] 01, 2022 11:13 AM documented in this encounterRegency Hospital [facility] East03-15-2023 History of Present illness Narrative* Alivia Horton [...] 01, 2022 10:04 AM documented in this encounterRegency Hospital [facility] East02-13-2023 Miscellaneous Notes* Letter - Mammography Coordinator - 10/02/2022 11:46 AM EST October 03, 2022 PID: [id number] Cecelia Quiroz [address] [place] [address] Dear Ms. Quiroz, Your recent breast imaging [...] who ordered/prescribed your screening mammogram: Please call [phone] or [phone] to schedule an appointment for your additional [...] and reports are kept on file at [facility] as part of your permanent medical record, and are available for your continuing care. Thank you for allowing us to help in meeting your health care needs. Sincerely, Dr. Solomon Interpreting Radiologist [facility] (Additional imaging) documented in this encounterRegency Hospital [facility] East12-05-2022 History of Present illness Narrative* Magdalene Bradford MD - 07/24/2022 1:07 PM EST On 07/24/2022, I had the pleasure of evaluating Cecelia Quiroz in a follow-up [facility] Rheumatology appointment for GCA, PMR and osteoporosis. [...] Essential hypertension 12/28/2021 GCA (giant cell arteritis) ([facility]) bx negative Glaucoma Hematuria 1999 had workup including cystoscopy, etc. - entire workup negative. No longer happening. 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 Works. Family lives in [place] Tobacco use: 1 ppd Alcohol use: None [...] - Check labs. Notify of results via Bloomz - Continue calcium and vitamin D supplementation - Check DEXA in Jan (for prison steroid use) 3. PUD: With bleeding gastric ulcer per Jul EGD related to NSAID use - Avoid NSAIDs PO 4. Tobacco use: - Encouraged smoking cessation in the past 5. DDD: - Tylenol prn, avoid NSAIDs PO 6. General health maintenance: - Completed the covid vaccination series in November, [employer]. - Advised to continue follow-up with PCP for routine health maintenance and malignancy screening Follow-up in 4, 8 & 12 months with Palma and 16 months with me or sooner if needed. Patient was instructed to call if any questions or concerns. Thank you for allowing me to participate in the care of your patient. Magdalene Bradford MD documented in this encounterRegency Hospital [facility]11-18-2022 History of Present illness Narrative* Wily Abarca, CARMINA.COMPLAINT EVALUATION OFFICER - 07/07/2022 9:47 AM EST Chief Complaint Patient presents with: Wound Check: Left leg HPI Cecelia Quiroz is a 72 year old female who presents here today for Above Complaints.. Per appointment with myself on 07/03/2022: Cecelia Quiroz is a 72 year old female who presents here today for Above Complaints.. Per [facility] care visit with Jeremy Cohen CNP [...] Essential hypertension 12/28/2021 GCA (giant cell arteritis) ([facility]) bx negative Glaucoma Hematuria 1999 had workup including cystoscopy, etc. - entire workup negative. No longer happening. IBS (irritable bowel syndrome) Iron deficiency anemia, unspecified ? related to UGI source from NSAID's PMR (polymyalgia rheumatica) ([facility]) Raynaud's disease /phenomenon Steroid long-term use Tobacco [...] life Coronary Artery Disease Father Hx of [place], age 71 Tremor Mother Hypertension Mother Cancer [...] in 1-2 weeks if necessary. Wily Abarca APRN.COMPLAINT EVALUATION OFFICER documented in this encounterRegency Hospital [facility] East11-14-2022 History of Present illness Narrative* Bethany Sanchez [...] 03, 2022 10:07 AM documented in this encounterRegency Hospital [facility] East11-14-2022 Instructions* Patient Instructions* Wily Abarca APRN.CNP - 07/03/2022 9:46 AM EST Take 5 more days of the antibiotic-we sent [facility] to [facility] for you. Have the xray of your lower leg completed-I'll let you know when I get the results. Follow up on Sunday (07/07). Ok to leave the wound areas open. documented in this encounterRegency Hospital [facility] East11-14-2022 History of Present illness Narrative* Wily Abarca [...] Essential hypertension 12/28/2021 GCA (giant cell arteritis) ([facility]) bx negative Glaucoma Hematuria 1999 had workup including cystoscopy, etc. - entire workup negative. No longer happening. IBS (irritable bowel syndrome) Iron deficiency anemia, unspecified ? related to UGI source from NSAID's PMR (polymyalgia rheumatica) ([facility]) Raynaud's disease /phenomenon Steroid long-term use Tobacco [...] life Coronary Artery Disease Father Hx of [place], age 71 Tremor Mother Hypertension Mother Cancer [...] LEFT Wily Abarca APRN.IRINEO documented in this encounterRegency Hospital [facility] East11-06-2022 History of Present illness Narrative* Jeremy Cohen [...] life Coronary Artery Disease Father Hx of [place], age 71 Tremor Mother Hypertension Mother Cancer [...] Agrees to plan Declines avs Jeremy Cohen APRN.COMPLAINT EVALUATION OFFICER documented in this encounterRegency Hospital [facility] East10-03-2022 History of Present illness Narrative* Diana Norman, RT(R) - 05/22/2022 4:20 PM EDT Radiology [...] PERIPHERAL IV DATA: Not applicable SIGNED BY: Diana Norman, (R) May 22, 2022 4:21 PM documented in this encounterRegency Hospital [facility] East10-03-2022 History of Present illness Narrative* Melissa Pierre RN - 05/22/2022 8:53 AM EDT Educated pt on proper technique for SQ methotrexate injection. Instructed on dosage and how to measure appropriately. Pt has had previous experience with SQ injections. Pt stated understanding and had no further questions. documented in this encounterRegency Hospital [facility] East09-29-2022 Miscellaneous Notes* Telephone Encounter - Prema Miguel MA - 05/18/2022 1:12 PM EDT Keaton Moran RN: Received a call asking if patient can come to our office to receive self injection teaching on methotrexate. Spoke to Yumiko who stated we can do this at our facility; patient will need to go on the chemo schedule. [address] [address]/[employer] PSR will contact patient and assist with scheduling. Prema Miguel MA * Telephone Encounter - Prema Miguel MA - 05/18/2022 9:[address]T [address] [facility]. Care coordination will need to check with RN's on this and will contact me back with a response. Prema Miguel MA * Telephone Encounter - Palma Lovett APRN.CNP - 05/18/2022 6:50 AM EDT Could you please call the [facility] infusion center to see if they have nurses available to do injection teaching. Thanks, Palma Lovett APRN.CNP documented in this encounterRegency Hospital [facility] East09-13-2022 History of Present illness Narrative* Marko Wood MD - 05/02/2022 10:42 AM EDT [facility] - FOLLOW UP EVALUATION Miah Cottrell, DO [address] [facility] [address] I had the pleasure of seeing Ms. [...] Sincerely, Marko Wood MD documented in this encounterRegency Hospital [facility] East08-31-2022 Miscellaneous Notes* Addendum Note - Palma Lovett APRN.CNP - 04/19/2022 12:24 PM EDTAddended by: PALMA LOVETT on: 04/19/2022 12:24 PM Modules accepted: Orders * Telephone Encounter - Palma Lovett APRN.CNP - 04/19/2022 11:27 AM EDT Get Medical Advice on 04/18/22 SED RATE WESTERGREN C-REACTIVE PROTEIN (CRP) Plama Lovett APRN.IRINEO documented in this encounterRegency Hospital [facility] East08-04-2022 History of Present illness Narrative* Charmaine Juarez [...] Gait steady. Denies nausea documented in this [facility] Work Phone: 1(574) 649-818608-04-2022 Hospital Discharge instructions* Discharge Instructions* KATARINA Morejon - 03/23/2022 9:47 AM EDT Images from the original note were not included. If you have any questions please call Dr Castellano's office ([phone]), all calls after 4:30 pm or anytime on Sunday or Sunday go through the answering service. The nurse at the answering service will triage your call to determine if the at night on-call physician needs to be called (this may notbe Dr Castellano but one of his partners if Dr Castellano is not second baker). Any calls regarding medication refills will be [...] or starts to feel uncomfortable call Dr aCstellano's office immediately ([phone]). Leave the dressing in place, you do not need to change it unless you are instructed to do so by . If there are problems with the dressing (it feels to tight, too loose, it gets wet) call 's office. If you see any blood on the bandage reinforce it on the surface with gauze and an kleber bandage and call Dr Castellano's office. Please call if you have any questions concerning your bandage/splint. ACTIVITY: The first 2 weeks after surgery is the most important time for healing. Please take this time to rest and give yourself the best chance to have a good outcome. Doing too much can affect your healing.If you are not sure how active you can be please call Dr Castellano. You should get up and move around [...] not change within [address] Castellano's office. Keep your foot/ankle elevated for comfort. [...] recreational drugs while taking the narcotic medication.The [facility] restricts the amount of pain pills that [...] when needed. Unless otherwise instructed by Dr Castellano you can take an over the counter anti-inflammatory to help with your pain as well. This includes but is not limited to Ibuprofen, Advil, Motrin, Alleve, etc. A prescription for baby aspirin was sent to your pharmacy and Dr. Castellano wants you to take one tablet once a day. If you have any issues with the medication call Dr. Castellano. WEIGHTBEARING INSTRUCTIONS Dr Castellano wants you to be weight bearing as [...] splint/bandage gets water in it, call Dr. Castellano's office ([phone]) immediately and you will beinstructed which office can see your the quickest to change your splint/bandage. * Discharge Instr - Activity* KATARINA Morejon - 03/23/2022 9:48 AM EDT Weight-bearing and post-operative activity Dr Castellano wants you to be weight bearing as tolerated on the Right lower extremity. If you have any problems maintaining this weight bearing status please call the office so that appropriate instructions can be given. Dr. Castellano wants you to be as active as [...] moving around during the day, let Dr Castellano know. * Discharge Instr - Diet* KATARINA [...] most local grocery stores, pharmacies, and chain [employer]-stores. If you have any questions about your diet or nutrition, call the hospital and ask for the dietitian. documented in this encounterSUMMA Work Phone: [phone]) 669-966208-02-2022 Miscellaneous Notes* Telephone Encounter - Palma Lovett [...] understanding. Palma Lovett APRN.CNP documented in this encounterRegency Hospital [facility]07-29-2022 History of Present illness Narrative* Palma Lovett APRN.CNP - 03/17/2022 10:30 AM EDT Follow-up [facility] Rheumatology appointment for GCA, PMR and osteoporosis. [...] Essential hypertension 12/28/2021 GCA (giant cell arteritis) ([facility]) bx negative Glaucoma Hematuria 1999 had workup including cystoscopy, etc. - entire workup negative. No longer happening. IBS (irritable bowel syndrome) Iron deficiency anemia, unspecified ? related to UGI source from NSAID's PMR (polymyalgia rheumatica) ([facility]) Raynaud's disease /phenomenon Steroid long-term use Tobacco [...] She is doing the same since the [facility]. She is taking prednisone 10 mg daily. No falls or fractures since [facility]. No invasive dental work in the last [...] life Coronary Artery Disease Father Hx of [place], age 71 Tremor Mother Hypertension Mother Cancer [...] No Family History SOCIAL HISTORY: Lives in [place]. Works. Tobacco use: 1 ppd Alcohol use: [...] Abs Lymph 1.00 - 4.00 k/uL 1.75 Hubbard% % 5.4 Abs Hubbard <0.87 k/uL 0.77 Eosin% % 0.1 Abs [...] Completed the covid vaccination series in November, [employer]. She also received the booster vaccine. - [...] which included preparing to see the patient, [id number] patient care, completing clinical documentation, performing a medically appropriate examination, ordering medications, tests, or procedures and communicating results to the patient/fami ly/caregiver. Palma Lovett APRN.CNP documented in this encounterReg[facility]-2022 Instructions* Patient Instructions* Palma Lovett APRN.CNP - 03/17/2022 10:27 AM EDT Please contact me with an update after speaking with ortho about timing of Prolia. documented in this encounterRegency [facility]07-20-2022 Hospital Discharge instructions* Discharge Instructions* Sravanthi Wick [...] Care Everywhere. * Orthopedic Hardware Removal: Post-op (Hebrew) documented in this encounterSUMMA Work Phone: [phone] Miscellaneous Notes* Telephone Encounter - Palma Lovett [...] URICACID Zara Cheema MA documented in this encounterRegency [facility]06-20-2022 NoteHNO ID: [id number] Author: PRITI Mcconnell Service: Radiology Author Type: [...] BY: PRITI Mcconnell February 06, 2022 10:44 [facility]MSamar[facility] [id number] Miscellaneous Notes* Telephone Encounter - Anca Mark Pss - 02/02/2022 10:13 AM EDT Pharmacy verified in [facility] Patient has been identified by name and [...] advise. Anca Mark Pss documented in this encounterRegency [facility]05-17-2022 Miscellaneous Notes* Telephone Encounter - Alena Hernandes MA - 01/03/2022 10:03 AM EDT Patient notified via [employer] message. Alena Hernandes MA * Telephone Encounter - Miah Cottrell DO - 01/03/2022 9:54 AM EDT Please inform patient that CTA of her head was without any acute findings IMPRESSION: No acute intracranial abnormality. Stable chronic changes. No apparent intracranial arterial occlusion, high-grade stenosis, or Aneurysm. 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 Rowan Disorder of bone and cartilage 0 03/05/2016 Overview: Was on Actonel - quit taking it when had problems from pharmacy Allergic rhinitis, cause unspecified 10/29/2007 MVP (mitral valve prolapse) 09/2022 Overview: (unable to locate an old echo on the [facility] EMR) Carpal tunnel syndrome 8 Hematuria 10/29/2007 Overview: had workup including cystoscopy, etc. - entire workup negative. No longer happening. 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 Rowan Disorder of bone and cartilage 0 03/05/2016 Overview: Was on Actonel - quit taking it when had problems from pharmacy Allergic rhinitis, cause unspecified 10/29/2007 MVP (mitral valve prolapse) 09/2022 Overview: (unable to locate an old echo on the [facility] EMR) Carpal tunnel syndrome 8 Hematuria 10/29/2007 Overview: had workup including cystoscopy, etc. - entire workup negative. No longer happening. 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 Rowan Disorder of bone and cartilage 0 03/05/2016 Overview: Was on Actonel - quit taking it when had problems from pharmacy Allergic rhinitis, cause unspecified 10/29/2007 MVP (mitral valve prolapse) 09/2022 Overview: (unable to locate an old echo on the [facility] EMR) Carpal tunnel syndrome 8 Hematuria 10/29/2007 Overview: had workup including cystoscopy, etc. - entire workup negative. No longer happening. 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 Rowan Disorder of bone and cartilage 0 03/05/2016 Overview: Was on Actonel - quit taking it when had problems from pharmacy Allergic rhinitis, cause unspecified 10/29/2007 MVP (mitral valve prolapse) 09/2022 Overview: (unable to locate an old echo on the [facility] EMR) Carpal tunnel syndrome 8 Hematuria 10/29/2007 Overview: had workup including cystoscopy, etc. - entire workup negative. No longer happening. 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 - entire workup negative. No longer happening. 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 - entire workup negative. No longer happening. documented as of this encounter (statuses as of 03/15/2023) [facility] History of Past illness Narrative* Problem Noted Date Diagnosed Date Resolved Date Shortness of breath 12/28/2021 01/20/20 23 GCA (giant cell arteritis) 01/18/2012 0 04/19/2017 Routine general medical exam ination at a health care facility 02/12/2009 11/27/2011 Overview: 02/12/09 -- transfer [facility] 05/10/2010, yearly physical ROUTINE ZOO DIRECTOR CARE - [facility] 10/29/2007 Overview: Dr. 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 - entire workup negative. No longer happening. documented as of this encounter (statuses as of 03/29/2023) [facility] History of Past illness Narrative* Problem Noted Date Diagnosed Date Resolved Date Shortness of breath 12/28/2021 01/20/20 23 GCA (giant cell arteritis) 01/18/2012 0 04/19/2017 Routine general medical exam ination at a health care facility 02/12/2009 11/27/2011 Overview: 02/12/09 -- transfer [facility] 05/10/2010, yearly physical ROUTINE ZOO DIRECTOR CARE - [facility] 10/29/2007 Overview: Dr. 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 - entire workup negative. No longer happening. documented as of this encounter (statuses as of 04/18/2023) [facility] History of Past illness Narrative* Problem Noted Date Diagnosed Date Resolved Date Shortness of breath 12/28/2021 01/20/20 23 GCA (giant cell arteritis) 01/18/2012 0 04/19/2017 Routine general medical exam ination at a health care facility 02/12/2009 11/27/2011 Overview: 02/12/09 -- transfer [facility] 05/10/2010, yearly physical ROUTINE ZOO DIRECTOR CARE - [facility] 10/29/2007 Overview: Dr. 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 - entire workup negative. No longer happening. documented as of this encounter (statuses as of 04/19/2023) [facility] History of Past illness Narrative* Problem Noted Date Diagnosed Date Resolved Date Shortness of breath 12/28/2021 01/20/20 23 GCA (giant cell arteritis) 01/18/2012 0 04/19/2017 Routine general medical exam ination at a health care facility 02/12/2009 11/27/2011 Overview: 02/12/09 -- transfer [facility] 05/10/2010, yearly physical ROUTINE ZOO DIRECTOR CARE - [facility] 10/29/2007 Overview: Dr. 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 - entire workup negative. No longer happening. documented as of this encounter (statuses as of 05/08/2023) [facility] of Past illness Narrative* Problem Noted Date Diagnosed Date Resolved Date Shortness of breath 12/28/2021 01/20/20 23 GCA (giant cell arteritis) 01/18/2012 0 04/19/2017 Routine general medical exam ination at a health care facility 02/12/2009 11/27/2011 Overview: 02/12/09 -- transfer [facility] 05/10/2010, yearly physical ROUTINE ZOO DIRECTOR CARE - [facility] 10/29/2007 Overview: Dr. 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 - entire workup negative. No longer happening. documented as of this encounter (statuses as of 05/14/2023) [facility] History of Past illness Narrative* Problem Noted Date Diagnosed Date Resolved Date Shortness of breath 12/28/2021 01/20/20 23 GCA (giant cell arteritis) 01/18/2012 0 04/19/2017 Routine general medical exam ination at a health care facility 02/12/2009 11/27/2011 Overview: 02/12/09 -- transfer [facility] 05/10/2010, yearly physical ROUTINE ZOO DIRECTOR CARE - [facility] 10/29/2007 Overview: Dr. 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 - entire workup negative. No longer happening. documented as of this encounter (statuses as of 05/15/2023) [facility] History of Past illness Narrative* Problem Noted Date Diagnosed Date Resolved Date Shortness of breath 12/28/2021 01/20/20 23 GCA (giant cell arteritis) 01/18/2012 0 04/19/2017 Routine general medical exam ination at a health care facility 02/12/2009 11/27/2011 Overview: 02/12/09 -- transfer [facility] 05/10/2010, yearly physical ROUTINE ZOO DIRECTOR CARE - [facility] 10/29/2007 Overview: Dr. 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 - entire workup negative. No longer happening. documented as of this encounter (statuses as of 06/20/2023) [facility] of Past illness Narrative* Problem Noted Date Diagnosed Date Resolved Date Shortness of breath 12/28/2021 01/20/20 23 GCA (giant cell arteritis) 01/18/2012 0 04/19/2017 Routine general medical exam ination at a health care facility 02/12/2009 11/27/2011 Overview: 02/12/09 -- transfer [facility] 05/10/2010, yearly physical ROUTINE ZOO DIRECTOR CARE - [facility] 10/29/2007 Overview: Dr. 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 - entire workup negative. No longer happening. documented as of this encounter (statuses as of 06/24/2023) [facility] of Past illness Narrative* Problem Noted Date Diagnosed Date Resolved Date Shortness of breath 12/28/2021 01/20/20 23 GCA (giant cell arteritis) 01/18/2012 0 04/19/2017 Routine general medical exam ination at a health care facility 02/12/2009 11/27/2011 Overview: 02/12/09 -- transfer [facility] 05/10/2010, yearly physical ROUTINE ZOO DIRECTOR CARE - [facility] 10/29/2007 Overview: Dr. 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 - entire workup negative. No longer happening. documented as of this encounter (statuses as of 06/24/2023) [facility] of Past illness Narrative* Problem Noted Date Diagnosed Date Resolved Date Shortness of breath 12/28/2021 01/20/20 23 GCA (giant cell arteritis) 01/18/2012 0 04/19/2017 Routine general medical exam ination at a health care facility 02/12/2009 11/27/2011 Overview: 02/12/09 -- transfer [facility] 05/10/2010, yearly physical ROUTINE ZOO DIRECTOR CARE - [facility] 10/29/2007 Overview: Dr. 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 - entire workup negative. No longer happening. documented as of this encounter (statuses as of 06/24/2023) [facility] of Past illness Narrative* Problem Noted Date Diagnosed Date Resolved Date Shortness of breath 12/28/2021 01/20/20 23 GCA (giant cell arteritis) 01/18/2012 0 04/19/2017 Routine general medical exam ination at a health care facility 02/12/2009 11/27/2011 Overview: 02/12/09 -- transfer [facility] 05/10/2010, yearly physical ROUTINE ZOO DIRECTOR CARE - [facility] 10/29/2007 Overview: Dr. 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 - entire workup negative. No longer happening. documented as of this encounter (statuses as of 06/24/2023) [facility] of Past illness Narrative* Problem Noted Date Diagnosed Date Resolved Date Shortness of breath 12/28/2021 01/20/20 23 GCA (giant cell arteritis) 01/18/2012 0 04/19/2017 Routine general medical exam ination at a health care facility 02/12/2009 11/27/2011 Overview: 02/12/09 -- transfer [facility] 05/10/2010, yearly physical ROUTINE ZOO DIRECTOR CARE - [place] 10/29/2007 Overview: Dr. 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 - entire workup negative. No longer happening. documented as of this encounter (statuses as of 06/24/2023) [facility] History of Past illness Narrative* Problem Noted Date Diagnosed Date Resolved Date Shortness of breath 12/28/2021 01/20/20 23 GCA (giant cell arteritis) 01/18/2012 0 04/19/2017 Routine general medical exam ination at a health care facility 02/12/2009 11/27/2011 Overview: 02/12/09 -- transfer [facility] 05/10/2010, yearly physical ROUTINE ZOO DIRECTOR CARE - [place] 10/29/2007 Overview: Dr. 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 - entire workup negative. No longer happening. documented as of this encounter (statuses as of 07/17/2023) [facility] of Past [facility] Narrative* Problem Noted Date Diagnosed Date Resolved Date Shortness of breath 12/28/2021 01/20/20 23 GCA (giant cell arteritis) 01/18/2012 0 04/19/2017 Routine general medical exam ination at a health care facility 02/12/2009 11/27/2011 Overview: 02/12/09 -- transfer [facility] 05/10/2010, yearly physical ROUTINE ZOO DIRECTOR CARE - [place] 10/29/2007 Overview: Dr. 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 - entire workup negative. No longer happening. documented as of this encounter (statuses as of 07/23/2023) [facility] of Past illness Narrative* Problem Noted Date Diagnosed Date Resolved Date Shortness of breath 12/28/2021 01/20/20 23 GCA (giant cell arteritis) 01/18/2012 0 04/19/2017 Routine general medical exam ination at a health care facility 02/12/2009 11/27/2011 Overview: 02/12/09 -- transfer [facility] 05/10/2010, yearly physical ROUTINE ZOO DIRECTOR CARE - [place] 10/29/2007 Overview: Dr. 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 - entire workup negative. No longer happening. documented as of this encounter (statuses as of 10/05/2023) [facility] History of Past illness Narrative* Problem Noted Date Diagnosed Date Resolved Date Shortness of breath 12/28/2021 01/20/20 23 GCA (giant cell arteritis) 01/18/2012 0 04/19/2017 Routine general medical exam ination at a health care facility 02/12/2009 11/27/2011 Overview: 02/12/09 -- transfer [facility] 05/10/2010, yearly physical ROUTINE ZOO DIRECTOR CARE - [place] 10/29/2007 Overview: Dr. 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 - entire workup negative. No longer happening. documented as of this encounter (statuses as of 10/09/2023) [facility] History of Past illness Narrative* Problem Noted Date Diagnosed Date Resolved Date Shortness of breath 12/28/2021 01/20/20 23 GCA (giant cell arteritis) 01/18/2012 0 04/19/2017 Routine general medical exam ination at a health care facility 02/12/2009 11/27/2011 Overview: 02/12/09 -- transfer [facility] 05/10/2010, yearly physical ROUTINE ZOO DIRECTOR ROXIE Rowan 10/29/2007 Overview: Dr. 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 - entire workup negative. No longer happening. documented as of this encounter (statuses as of 10/10/2023) [facility] History of Past illness Narrative* Problem Noted Date Diagnosed Date Resolved Date Shortness of breath 12/28/2021 01/20/20 23 GCA (giant cell arteritis) 01/18/2012 0 04/19/2017 Routine general medical exam ination at a health care facility 02/12/2009 11/27/2011 Overview: 02/12/09 -- transfer from [facility] 05/10/2010, yearly physical ROUTINE ZOO DIRECTOR CARE - Harpal 10/29/2007 Overview: Dr. 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 - entire workup negative. No longer happening. documented as of this encounter (statuses as of 10/12/2023) [facility]05-11-2022 History of Past illness Narrative* Problem Noted Date Diagnosed Date Resolved Date Shortness of breath 12/28/2021 01/20/20 23 GCA (giant cell arteritis) 01/18/2012 0 04/19/2017 Routine general medical exam ination at a health care facility 02/12/2009 11/27/2011 Overview: 02/12/09 -- transfer [facility] 05/10/2010, yearly physical ROUTINE ZOO DIRECTOR CARE - Harpal 10/29/2007 Overview: Dr. 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 - entire workup negative. No longer happening. documented as of this encounter (statuses as of 11/01/2023) [facility]05-11[facility]20[facility] History of Past illness Narrative* Problem Noted Date Diagnosed Date Resolved Date Shortness of breath 12/28/2021 01/20/20 23 GCA (giant cell arteritis) 01/18/2012 0 04/19/2017 Routine general medical exam ination at a health care facility 02/12/2009 11/27/2011 Overview: 02/12/09 -- transfer [facility] 05/10/2010, yearly physical ROUTINE ZOO DIRECTOR CARE - Harpal 10/29/2007 Overview: Dr. 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 - entire workup negative. No longer happening. documented as of this encounter (statuses as of 12/04/2023) [facility]05-10[facility]2022 Miscellaneous Notes* Telephone Encounter - Sravanthi Carlisle [...] Duke Pss - 12/26/2021 4:50 PM EDT Ceceliakalpana Quiroz is calling Miah Cottrell DO today Patient is calling because she stated she called [facility] and told them she needs a prescription for Metoprolol 50 mg; she thought the doctor had sent a new prescription. Patient wants to confirm that she is supposed to be taking Metoprolol 50 mg; take one tablet daily? If so, please send a corrected script to [facility]. Please follow up with the patient either way. metoprolol succinate ER (TOPROL XL) 25 mg 24 hr tablet 90 tablet 1 08/05/2021 Sig: Take 1 tablet by mouth once daily. Patient taking differently: Take 50 mg by mouth once daily. Sent to pharmacy as: metoprolol succinate ER (TOPROL XL) 25 mg 24 hr tablet Class: Normal Route: ORAL Order: [id number] E-Prescribing Status: Receipt confirmed by pharmacy (08/05/2021 2:33 PM EST) Patient has been identified by name and birthdate. Duration of symptoms: N/A Person calling: self Call patient at: on cell [phone] (home) [phone] (cell) Was an appointment scheduled: No Closing statement: Results or non-symptom based questions: Thank you for calling [facility], your call will be returned within the next business day. Carmen Duke Pss documented in this encounterReg[facility] Miscellaneous Notes* Telephone Encounter - Prema Miguel MA - 12/19/2021 8:15 AM EDT Patient notified of results, verbalizes understanding of instructions. Prema Miguel MA * Telephone Encounter - Palma Lovett APRN.IRINEO - 12/19/2021 7:07 AM EDT Please call [...] Thanks, Palma Lovett APRN.IRINEO documented in this encounterReg[facility] History of Present illness Narrative* Palma Lovett APRN.CNP - 12/16/2021 1:31 PM EDT Orders Only on 12/16/21 CONSULT TO PHYSICAL THERAPY CONSULT TO [facility] Palma Lovett APRN.IRINEO documented in this encounterRegency [facility]04-29-2022 NoteIMPRESSION: 1. Moderate diffuse cervical spondylosis with interval progression. Programmer Numerical Control: NAYELY Transcribe Date/Time: Dec 16 2021 1:18P Dictated by : ANNIKA MONTALVO MD This examination was interpreted and the report reviewed and electronically signed by: ANNIKA MONTALVO MD on Dec 16 2021 1:19PM EST [id number] History of Present illness Narrative* Dorene Mcgraw RT(R) - 12/16/2021 11:15 AM EDT Radiology [...] 16, 2021 11:27 AM documented in this encounterRegency [facility]04[facility]-2022 History of Present illness Narrative* Palma Lovett APRN.COMPLAINT EVALUATION OFFICER - 12/16/2021 10:30 AM EDT Follow-up [facility] Rheumatology appointment for GCA, PMR and osteoporosis. [...] of hemorrhage)([phone]) 2003 GCA (giant cell arteritis) ([facility]) bx negative Glaucoma Hematuria 1999 had workup including cystoscopy, etc. - entire workup negative. No longer happening. 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 Works. Tobacco use: 1 ppd Alcohol use: [...] Abs Lymph 1.00 - 4.00 k/uL 1.75 Hubbard% % 5.4 Abs Hubbard <0.87 k/uL 0.77 Eosin% % 0.1 Abs [...] Completed the covid vaccination series in November, [employer]. She also received the booster vaccine. - [...] which included preparing to see the patient, [id number] patient care, completing clinical documentation, performing a medically appropriate examination, ordering medications, tests, or procedures and communicating results to the patient/fami ly/caregiver. Palma Lovett APRN.CNP documented in this encounterRegency Hospital [facility]04-29-2022 Instructions* Patient Instructions* Palma Lovett APRN.CNP - 12/16/2021 10:30 AM EDT Please schedule bone density test on the same machine as prior after 02/01/2022 documented in this encounterReg[facility]05[facility]-2012 History of Past illness Narrative* Problem Noted Date Resolved Date GCA (giant cell arteritis) 01/18/201204/19 Polymyalgia rheumatica 01/10/2012 7 Routine general medical exam ination at a health care facility 02/12/2009 11/27/2011 Overview: 02/12/09 -- transfer [facility] 05/10/2010, yearly physical ROUTINE ZOO DIRECTOR CARE - Harpal 10/29/20072011 Overview: Dr. Rowan Disorder of bone and cartilage 0 03/05/2016 Overview: Was on Actonel - quit taking it when had problems from pharmacy Allergic rhinitis, cause unspecified 10/29/2007 Carpal tunnel syndrome 8 Hematuria 10/29/2007 Overview: had workup including cystoscopy, etc. - entire workup negative. No longer happening. documented as of this encounter (statuses as of 12/16/2021) [facility] History of Past illness Narrative* Problem Noted Date Resolved Date GCA (giant cell arteritis) 01/18/201204/19 Polymyalgia rheumatica 01/10/2012 7 Routine general medical exam ination at a health care facility 02/12/2009 11/27/2011 Overview: 02/12/09 -- transfer from [facility] 05/10/2010, yearly physical ROUTINE ZOO DIRECTOR CARE - Harpal 10/29/20072011 Overview: Dr. Rowan Disorder of bone and cartilage 0 03/05/2016 Overview: Was on Actonel - quit taking it when had problems from pharmacy Allergic rhinitis, cause unspecified 10/29/2007 Carpal tunnel syndrome 8 Hematuria 10/29/2007 Overview: had workup including cystoscopy, etc. - entire workup negative. No longer happening. documented as of this encounter (statuses as of 12/16/2021) [facility] History of Past illness Narrative* Problem Noted Date Resolved Date GCA (giant cell arteritis) 01/18/201204/19 Polymyalgia rheumatica 01/10/2012 7 Routine general medical exam ination at a health care facility 02/12/2009 11/27/2011 Overview: 02/12/09 -- [facility] 05/10/2010, yearly physical ROUTINE ZOO DIRECTOR CARE - Harpal 10/29/20072011 Overview: Dr. Rowan Disorder of bone and cartilage 0 03/05/2016 Overview: Was on Actonel - quit taking it when had problems from pharmacy Allergic rhinitis, cause unspecified 10/29/2007 Carpal tunnel syndrome 8 Hematuria 10/29/2007 Overview: had workup including cystoscopy, etc. - entire workup negative. No longer happening. 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 Rowan Disorder of bone and cartilage 0 03/05/2016 Overview: Was on Actonel - quit taking it when had problems from pharmacy Allergic rhinitis, cause unspecified 10/29/2007 Carpal tunnel syndrome 8 Hematuria 10/29/2007 Overview: had workup including cystoscopy, etc. - entire workup negative. No longer happening. 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 Rowan Disorder of bone and cartilage 0 03/05/2016 Overview: Was on Actonel - quit taking it when had problems from pharmacy Allergic rhinitis, cause unspecified 10/29/2007 Carpal tunnel syndrome 8 Hematuria 10/29/2007 Overview: had workup including cystoscopy, etc. - entire workup negative. No longer happening. 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 Rowan Disorder of bone and cartilage 0 03/05/2016 Overview: Was on Actonel - quit taking it when had problems from pharmacy Allergic rhinitis, cause unspecified 10/29/2007 Carpal tunnel syndrome 8 Hematuria 10/29/2007 Overview: had workup including cystoscopy, etc. - entire workup negative. No longer happening. 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 Rowan Disorder of bone and cartilage 0 03/05/2016 Overview: Was on Actonel - quit taking it when had problems from pharmacy Allergic rhinitis, cause unspecified 10/29/2007 Carpal tunnel syndrome 8 Hematuria 10/29/2007 Overview: had workup including cystoscopy, etc. - entire workup negative. No longer happening. 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 Rowan Disorder of bone and cartilage 0 03/05/2016 Overview: Was on Actonel - quit taking it when had problems from pharmacy Allergic rhinitis, cause unspecified 10/29/2007 Carpal tunnel syndrome 8 Hematuria 10/29/2007 Overview: had workup including cystoscopy, etc. - entire workup negative. No longer happening. 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 Rowan Disorder of bone and cartilage 0 03/05/2016 Overview: Was on Actonel - quit taking it when had problems from pharmacy Allergic rhinitis, cause unspecified 10/29/2007 Carpal tunnel syndrome 8 Hematuria 10/29/2007 Overview: had workup including cystoscopy, etc. - entire workup negative. No longer happening. 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 Rowan Disorder of bone and cartilage 0 03/05/2016 Overview: Was on Actonel - quit taking it when had problems from pharmacy Allergic rhinitis, cause unspecified 10/29/2007 Carpal tunnel syndrome 8 Hematuria 10/29/2007 Overview: had workup including cystoscopy, etc. - entire workup negative. No longer happening. 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 Rowan Disorder of bone and cartilage 0 03/05/2016 Overview: Was on Actonel - quit taking it when had problems from pharmacy Allergic rhinitis, cause unspecified 10/29/2007 Carpal tunnel syndrome 8 Hematuria 10/29/2007 Overview: had workup including cystoscopy, etc. - entire workup negative. No longer happening. 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 Rowan Disorder of bone and cartilage 0 03/05/2016 Overview: Was on Actonel - quit taking it when had problems from pharmacy Allergic rhinitis, cause unspecified 10/29/2007 Carpal tunnel syndrome 8 Hematuria 10/29/2007 Overview: had workup including cystoscopy, etc. - entire workup negative. No longer happening. documented as of this encounter (statuses as of 04/19/2022) [facility] History of Past illness Narrative* Problem Noted Date Resolved Date GCA (giant cell arteritis) 01/18/201204/19 Polymyalgia rheumatica 01/10/2012 7 Routine general medical exam ination at a health care facility 02/12/2009 11/27/2011 Overview: 02/12/09 -- transfer from [facility] 05/10/2010, yearly physical ROUTINE ZOO DIRECTOR CARE - [place] 10/29/20072011 Overview: Dr. Rowan Disorder of bone and cartilage 0 03/05/2016 Overview: Was on Actonel - quit taking it when had problems from pharmacy Allergic rhinitis, cause unspecified 10/29/2007 Carpal tunnel syndrome 8 Hematuria 10/29/2007 Overview: had workup including cystoscopy, etc. - entire workup negative. No longer happening. documented as of this encounter (statuses as of 05/02/2022) [facility] History of Past illness Narrative* Problem Noted Date Resolved Date GCA (giant cell arteritis) 01/18/201204/19 Polymyalgia rheumatica 01/10/2012 7 Routine general medical exam ination at a health care facility 02/12/2009 11/27/2011 Overview: 02/12/09 -- transfer from [facility] 05/10/2010, yearly physical ROUTINE ZOO DIRECTOR CARE - [place] 10/29/20072011 Overview: Dr. Rowan Disorder of bone and cartilage 0 03/05/2016 Overview: Was on Actonel - quit taking it when had problems from pharmacy Allergic rhinitis, cause unspecified 10/29/2007 Carpal tunnel syndrome 8 Hematuria 10/29/2007 Overview: had workup including cystoscopy, etc. - entire workup negative. No longer happening. documented as of this encounter (statuses as of 05/08/2022) [facility] History of Past illness Narrative* Problem Noted Date Resolved Date GCA (giant cell arteritis) 01/18/201204/19 Polymyalgia rheumatica 01/10/2012 7 Routine general medical exam ination at a health care facility 02/12/2009 11/27/2011 Overview: 02/12/09 -- transfer from [facility] 05/10/2010, yearly physical ROUTINE ZOO DIRECTOR CARE - [place] 10/29/20072011 Overview: Dr. Rowan Disorder of bone and cartilage 0 03/05/2016 Overview: Was on Actonel - quit taking it when had problems from pharmacy Allergic rhinitis, cause unspecified 10/29/2007 Carpal tunnel syndrome 8 Hematuria 10/29/2007 Overview: had workup including cystoscopy, etc. - entire workup negative. No longer happening. documented as of this encounter (statuses as of 05/18/2022) [facility] History of Past illness Narrative* Problem Noted Date Resolved Date GCA (giant cell arteritis) 01/18/201204/19 Polymyalgia rheumatica 01/10/2012 7 Routine general medical exam ination at a health care facility 02/12/2009 11/27/2011 Overview: 02/12/09 -- transfer from [facility] 05/10/2010, yearly physical ROUTINE ZOO DIRECTOR CARE - [place] 10/29/20072011 Overview: Dr. Rowan Disorder of bone and cartilage 0 03/05/2016 Overview: Was on Actonel - quit taking it when had problems from pharmacy Allergic rhinitis, cause unspecified 10/29/2007 Carpal tunnel syndrome 8 Hematuria 10/29/2007 Overview: had workup including cystoscopy, etc. - entire workup negative. No longer happening. documented as of this encounter (statuses as of 05/22/2022) [facility] History of Past illness Narrative* Problem Noted Date Resolved Date GCA (giant cell arteritis) 01/18/201204/19 Polymyalgia rheumatica 01/10/2012 7 Routine general medical exam ination at a health care facility 02/12/2009 11/27/2011 Overview: 02/12/09 -- transfer from [facility] 05/10/2010, yearly physical ROUTINE ZOO DIRECTOR CARE - [place] 10/29/20072011 Overview: Dr. Rowan Disorder of bone and cartilage 0 03/05/2016 Overview: Was on Actonel - quit taking it when had problems from pharmacy Allergic rhinitis, cause unspecified 10/29/2007 Carpal tunnel syndrome 8 Hematuria 10/29/2007 Overview: had workup including cystoscopy, etc. - entire workup negative. No longer happening. documented as of this encounter (statuses as of 06/25/2022) [facility] History of Past illness Narrative* Problem Noted Date Resolved Date GCA (giant cell arteritis) 01/18/201204/19 Polymyalgia rheumatica 01/10/2012 7 Routine general medical exam ination at a health care facility 02/12/2009 11/27/2011 Overview: 02/12/09 -- transfer from [facility] 05/10/2010, yearly physical ROUTINE ZOO DIRECTOR CARE - [place] 10/29/20072011 Overview: Dr. Rowan Disorder of bone and cartilage 0 03/05/2016 Overview: Was on Actonel - quit taking it when had problems from pharmacy Allergic rhinitis, cause unspecified 10/29/2007 Carpal tunnel syndrome 8 Hematuria 10/29/2007 Overview: had workup including cystoscopy, etc. - entire workup negative. No longer happening. documented as of this encounter (statuses as of 07/03/2022) [facility] History of Past illness Narrative* Problem Noted Date Resolved Date GCA (giant cell arteritis) 01/18/201204/19 Polymyalgia rheumatica 01/10/2012 7 Routine general medical exam ination at a health care facility 02/12/2009 11/27/2011 Overview: 02/12/09 -- transfer from [facility] 05/10/2010, yearly physical ROUTINE ZOO DIRECTOR CARE - [place] 10/29/20072011 Overview: Dr. Weeman Disorder of bone and cartilage 0 03/05/2016 Overview: Was on Actonel - quit taking it when had problems from pharmacy Allergic rhinitis, cause unspecified 10/29/2007 Carpal tunnel syndrome 8 Hematuria 10/29/2007 Overview: had workup including cystoscopy, etc. - entire workup negative. No longer happening. documented as of this encounter (statuses as of 07/07/2022) [facility] History of Past illness Narrative* Problem Noted Date Resolved Date GCA (giant cell arteritis) 01/18/201204/19 Polymyalgia rheumatica 01/10/2012 7 Routine general medical exam ination at a health care facility 02/12/2009 11/27/2011 Overview: 02/12/09 -- transfer from [facility] 05/10/2010, yearly physical ROUTINE ZOO DIRECTOR CARE - [place] 10/29/20072011 Overview: Dr. Rowan Disorder of bone and cartilage 0 03/05/2016 Overview: Was on Actonel - quit taking it when had problems from pharmacy Allergic rhinitis, cause unspecified 10/29/2007 Carpal tunnel syndrome 8 Hematuria 10/29/2007 Overview: had workup including cystoscopy, etc. - entire workup negative. No longer happening. documented as of this encounter (statuses as of 07/24/2022) [facility] History of Past illness Narrative* Problem Noted Date Resolved Date GCA (giant cell arteritis) 01/18/201204/19 Polymyalgia rheumatica 01/10/2012 7 Routine general medical exam ination at a health care facility 02/12/2009 11/27/2011 Overview: 02/12/09 -- transfer from [facility] 05/10/2010, yearly physical ROUTINE ZOO DIRECTOR CARE - [place] 10/29/20072011 Overview: Dr. Rowan Disorder of bone and cartilage 0 03/05/2016 Overview: Was on Actonel - quit taking it when had problems from pharmacy Allergic rhinitis, cause unspecified 10/29/2007 Carpal tunnel syndrome 8 Hematuria 10/29/2007 Overview: had workup including cystoscopy, etc. - entire workup negative. No longer happening. 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 Rowan Disorder of bone and cartilage 0 03/05/2016 Overview: Was on Actonel - quit taking it when had problems from pharmacy Allergic rhinitis, cause unspecified 10/29/2007 Carpal tunnel syndrome 8 Hematuria 10/29/2007 Overview: had workup including cystoscopy, etc. - entire workup negative. No longer happening. 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 Rowan Disorder of bone and cartilage 0 03/05/2016 Overview: Was on Actonel - quit taking it when had problems from pharmacy Allergic rhinitis, cause unspecified 10/29/2007 Carpal tunnel syndrome 8 Hematuria 10/29/2007 Overview: had workup including cystoscopy, etc. - entire workup negative. No longer happening. 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 Rowan Disorder of bone and cartilage 0 03/05/2016 Overview: Was on Actonel - quit taking it when had problems from pharmacy Allergic rhinitis, cause unspecified 10/29/2007 Carpal tunnel syndrome 8 Hematuria 10/29/2007 Overview: had workup including cystoscopy, etc. - entire workup negative. No longer happening. 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 Rowan Disorder of bone and cartilage 0 03/05/2016 Overview: Was on Actonel - quit taking it when had problems from pharmacy Allergic rhinitis, cause unspecified 10/29/2007 Carpal tunnel syndrome 8 Hematuria 10/29/2007 Overview: had workup including cystoscopy, etc. - entire workup negative. No longer happening. documented as of this encounter (statuses as of 11/21/2022) [facility]2012 History of Past illness Narrative* Problem Noted Date Resolved Date GCA (giant cell arteritis) 01/18/201204/19 Polymyalgia rheumatica 01/10/2012 7 Routine general medical exam ination at a health care facility 02/12/2009 11/27/2011 Overview: 02/12/09 -- transfer from [facility] 05/10/2010, yearly physical ROUTINE ZOO DIRECTOR CARE - Harpal 10/29/20072011 Overview: Dr. Rowan Disorder of bone and cartilage 0 03/05/2016 Overview: Was on Actonel - quit taking it when had problems from pharmacy Allergic rhinitis, cause unspecified 10/29/2007 Carpal tunnel syndrome 8 Hematuria 10/29/2007 Overview: had workup including cystoscopy, etc. - entire workup negative. No longer happening. documented as of this encounter (statuses as of 12/21/2022) [facility] History of Past illness Narrative* Problem Noted Date Resolved Date GCA (giant cell arteritis) 01/18/201204/19 Polymyalgia rheumatica 01/10/2012 7 Routine general medical exam ination at a health care facility 02/12/2009 11/27/2011 Overview: 02/12/09 -- transfer from [facility] 05/10/2010, yearly physical ROUTINE ZOO DIRECTOR CARE - Harpal 10/29/20072011 Overview: Dr. Rowan Disorder of bone and cartilage 0 03/05/2016 Overview: Was on Actonel - quit taking it when had problems from pharmacy Allergic rhinitis, cause unspecified 10/29/2007 Carpal tunnel syndrome 8 Hematuria 10/29/2007 Overview: had workup including cystoscopy, etc. - entire workup negative. No longer happening. documented as of this encounter (statuses as of 12/21/2022) [facility] [place] [facility]* Diagnosis PMR (polymyalgia rheumatica) (HCC)- Primary Polymyalgia rheumatica 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) Giant cell arteritis Osteoporosis, postmenopausal Senile osteoporosis Encounter for long-term (current) use of medications Encounter for long-term (current) use of other medications Neck pain Cervicalgia [facility] Diagnosis Neck pain- Primary Cervicalgia [facility] Diagnosis Essential hypertension Unspecified essential hypertension Headache, unspecified headache type [facility]* Diagnosis Right ankle pain, unspecified chronicity documented in this encounter [employer] Work Phone: Evaluation note* Diagnosis New daily persistent headache 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) Giant cell arteritis Hyperlipidemia, mixed Mixed hyperlipidemia [facility] Diagnosis PMR (polymyalgia rheumatica) (HCC)- Primary Polymyalgia rheumatica 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) Giant cell arteritis Osteoporosis, postmenopausal Senile osteoporosis Encounter for long-term (current) use of medications Encounter for long-term (current) use of other medications [facility] Diagnosis 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 Traumatic arthropathy, ankle and foot documented in this encounter [employer] Work Phone: Evaluation noteNo assessment information available [facility] Work Phone: Evaluation note* Diagnosis PMR (polymyalgia rheumatica) (HCC)- Primary Polymyalgia rheumatica 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) Giant cell arteritis [facility] Diagnosis Essential tremor- Primary Essential and other specified forms of tremor [facility] Diagnosis Encounter for injection education- Primary Other specified counseling [facility] Diagnosis Skin infection- Primary Unspecified local infection of skin and subcutaneous tissue Need for tetanus booster Need for prophylactic vaccination with tetanus toxoid alone [facility] Diagnosis Injury of left lower extremity, subsequent encounter- Primary Wound of left lower extremity, subsequent encounter Pain of left lower extremity Hematoma of left lower leg [facility]* Diagnosis Pain of left lower extremity- Primary Hematoma of left lower leg Wound of left lower extremity, subsequent encounter Injury of left lower extremity, subsequent encounter [facility]* Diagnosis Osteoporosis, postmenopausal- Primary Senile osteoporosis [facility]* Diagnosis Essential hypertension Unspecified essential hypertension Headache, unspecified headache type [facility]* Diagnosis PMR (polymyalgia rheumatica) (HCC)- Primary Polymyalgia rheumatica 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) Giant cell arteritis Osteoporosis, postmenopausal Senile osteoporosis Encounter for long-term (current) use of medications Encounter for long-term (current) use of other medications FDC 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 Encounter for long-term (current) use of steroids [facility]* Diagnosis PMR (polymyalgia rheumatica) (HCC)- Primary Polymyalgia rheumatica 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) Giant cell arteritis [facility]* Diagnosis Multiple thyroid nodules- Primary Nontoxic multinodular goiter [facility]* Diagnosis Essential tremor Essential and other specified forms of tremor [facility]* [...] Cervicalgia [facility] [place] [facility]* Diagnosis Osteoporosis, postmenopausal Senile osteoporosis FDC 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 Encounter for long-term (current) use of steroids [facility]* Diagnosis Thyroid nodule Nontoxic uninodular goiter [facility] [place] [facility]* Diagnosis Abnormal mammogram of left breast- Primary [facility] [place] [facility]* Diagnosis Osteoporosis, postmenopausal- Primary Senile osteoporosis [facility] [place] [facility]* Diagnosis Osteoporosis, postmenopausal- Primary Senile osteoporosis [facility]* Diagnosis PMR (polymyalgia rheumatica) (HCC)- Primary Polymyalgia rheumatica 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) Giant cell arteritis Osteoporosis, postmenopausal Senile osteoporosis Encounter for long-term (current) use of medications Encounter for long-term (current) use of other medications [facility]* Diagnosis Screening mammogram for breast cancer [facility]* Diagnosis Nodule of lower lobe [...] vitamin D deficiency [facility]* Diagnosis Nodule of lower lobe of left lung [facility]* Diagnosis Essential hypertension- Primary Unspecified essential hypertension [facility]* Diagnosis PMR (polymyalgia rheumatica) (HCC)- Primary Polymyalgia rheumatica Osteoporosis, postmenopausal Senile osteoporosis Encounter for long-term (current) use of medications Encounter for long-term (current) use of other medications 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 Encounter for long-term (current) use of steroids [facility] [place] [facility]* Diagnosis Yeast dermatitis- Primary Candidiasis of skin and nails [facility]* Diagnosis Essential hypertension Unspecified essential hypertension [facility] [place] [facility]* Diagnosis Essential hypertension Unspecified essential hypertension [facility] Diagnosis PMR (polymyalgia rheumatica) (HCC)- Primary Polymyalgia rheumatica FDC 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 Encounter for [...] perforation, or obstruction [facility]* Diagnosis Rash- Primary Rash and other nonspecific skin eruption [facility]* Diagnosis Allergic contact dermatitis, unspecified trigger- Primary [facility]* Diagnosis Essential tremor Essential and other specified forms of tremor [facility]* Diagnosis Essential hypertension Unspecified essential hypertension [facility]* Diagnosis Injury of left lower extremity, subsequent encounter Wound of left lower extremity, subsequent encounter Pain of left lower extremity Hematoma of left lower leg [facility]* Diagnosis PMR (polymyalgia rheumatica) (HCC) Polymyalgia rheumatica 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) Giant cell arteritis [facility]* Diagnosis Neck pain Cervicalgia [facility]* Diagnosis Essential hypertension- Primary Unspecified essential hypertension Ganglion cyst Ganglion, unspecified Hornet sting, accidental or unintentional, initial encounter Diarrhea due to malabsorption Personal history of other diseases of digestive system [facility] [place] [facility]* Diagnosis Essential hypertension- Primary Unspecified essential hypertension Carotid atherosclerosis, bilateral [facility] [place] [facility]* Diagnosis Postmenopausal osteoporosis- Primary Senile osteoporosis [facility]* Diagnosis Essential hypertension Unspecified essential hypertension [facility] [place] [facility]* Diagnosis Essential hypertension Unspecified essential hypertension [facility] [place] [facility]* Diagnosis Encounter for screening mammogram for breast cancer [facility]* Diagnosis Essential hypertension- Primary Unspecified essential hypertension 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) Giant cell arteritis Dupuytren's contracture of right hand Contracture of palmar fascia Chronic midline low back pain without sciatica Right wrist pain Pain in joint, forearm Tobacco abuse Tobacco use disorder Osteoporosis, postmenopausal Senile osteoporosis [facility] [place] [facility]* Diagnosis Encounter for long-term (current) use of medications- Primary Encounter for long-term (current) use of other medications Postmenopausal osteoporosis Senile osteoporosis [facility]* Diagnosis PMR (polymyalgia rheumatica) (HCC)- Primary [...] Neck pain Cervicalgia [facility]* Diagnosis Neck pain Cervicalgia [facility]* Diagnosis PMR (polymyalgia rheumatica) (HCC)- Primary Polymyalgia rheumatica [facility] [place] [facility]* Diagnosis Spinal stenosis of cervical region- Primary Spinal stenosis in cervical region Neck pain Cervicalgia Myalgia Mylagia and myositis, unspecified [facility]* Diagnosis Essential hypertension Unspecified essential hypertension [facility] [place] [facility]* Diagnosis Spinal stenosis of cervical region Spinal stenosis in cervical region [facility]* Diagnosis Neck pain- Primary Cervicalgia Spinal stenosis of cervical region Spinal stenosis in cervical region [facility] [place] [facility]* Diagnosis Essential hypertension- Primary Unspecified essential hypertension 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) Giant cell arteritis Tobacco abuse Tobacco use disorder Fatigue, unspecified type Vitamin B12 deficiency Other B-complex deficiencies Chronic neck pain Cervicalgia Osteoarthritis of spine with radiculopathy, cervical region DDD (degenerative disc disease), cervical Degeneration of cervical intervertebral disc [facility] [place] [facility]* Diagnosis Essential tremor Essential and other specified forms of tremor Cervicalgia [facility] [place] [facility]* Diagnosis Onset Date Resolution Status Admit Date Gross hematuria acute May 262024 11:40am [employer] [employer] Work Phone: Reason for referral (narrative)* Diagnostic Procedure Only (Routine) - Closed Specialty Diagnoses / Procedures Referred By Contac t Referred To Contact XR IMAGING Diagnoses Neck pain Procedures XR CERV OTHER 4V AP/LAT/OBL RADEX SPINE CERVICAL 4 OR 5 VIEWS Palma Lovett, CARMINA.COMPLAINT EVALUATION OFFICER [address] [place] [address] Xr Imaging Referral ID Status Reason Start Date Expiration Date V isits Requested Visits Authorized [id number] Closed Auto-Generate d Referral 12/16/2021 01/15/2023 1 1 [facility] for referral (narrative)* Diagnostic Procedure Only (Routine) - Closed Specialty Diagnoses / Procedures Referred By Contac t Referred To Contact XR IMAGING Diagnoses Injury of left lower extremity, subsequent encounter Wound of left lower extremity, subsequent encounter Pain of left lower extremity Hematoma of left lower leg Procedures XR TIBIA FIBULA 2V AP/LAT LEFT RADIOLOGIC EXAMINATION TIBIA & FIBULA 2 VIEWS Wily Abarca APRN.COMPLAINT EVALUATION OFFICER [address] [place] [address] Xr Imaging Referral ID Status Reason Start Date Expiration Date V isits Requested Visits Authorized [id number] Closed Auto-Generate d Referral 07/03/2022 08/02/2023 1 1 [facility] for referral (narrative)* Diagnostic Procedure Only (Routine) - Closed Specialty Diagnoses / Procedures [facility] To [facility] IMAGING Diagnoses Thyroid nodule Procedures US THYROID/PARATHYROID US SOFT TISSUE HEAD & NECK REAL TIME IMGE DOCM Miah Cottrell DO [address] [place] [address] [place] [address] Referral ID Status Reason Start Date Expiration Date V isits Requested Visits Authorized [id number] Closed Auto-Generate d Referral 03/12/2023 04/10/2024 1 1 [facility] for referral (narrative)* Outpatient Procedure (Routine) - Authorized Specialty Diagnoses / Procedures [facility] Diagnoses Carotid atherosclerosis, bilateral Procedures US CAROTID ARTERIES [facility] DUPLEX SCAN EXTRACRANIAL ART COMPL BI STUDY Miah Cottrell DO [address] [place] [address] [facility] [address] [place] [address] Referral ID Status Reason Start Date Expiration Date Visits Requested Visits Authorized [id number] Authorized Auto-Generat ed Referral 12/17/2023 12/16/2024 1 1 * MRI/CT (Routine) - Authorized Specialty Diagnoses / Procedures [facility] To Contact CT IMAGING Diagnoses Nodule of lower lobe of left lung Procedures CT CHEST WO IVCON DIAGNOSTIC COMPUTED TOMOGRAPHY THORAX W/O CNTRST Miah Cottrell DO [address] [place] [address] [place] [address] Referral ID Status Reason Start Date Expiration Date Visits Requested Visits Authorized [id number] Authorized Auto-Generat ed Referral 12/17/2023 01/15/2025 1 1 [facility] Diagnostic Procedure Only (Routine) - Closed Specialty Diagnoses / Procedures Referred By Contac t Referred To Contact XR IMAGING Diagnoses Injury of left lower extremity, subsequent encounter Wound of left lower extremity, subsequent encounter Pain of left lower extremity Hematoma of left lower leg Procedures XR TIBIA FIBULA 2V AP/LAT LEFT RADIOLOGIC EXAMINATION TIBIA & FIBULA 2 VIEWS Wily Abarca, PINSETTER MECHANIC AUTOMATIC.COMPLAINT EVALUATION OFFICER [address] [place] [address] [place] [address] Referral ID Status Reason Start Date Expiration Date V isits Requested Visits Authorized [id number] Closed Auto-Generate d Referral 07/03/2022 08/02/2023 1 1 Electronically signed by Wily Abarca PINSETTER MECHANIC AUTOMATIC.COMPLAINT EVALUATION OFFICER at 07/03/2022 9:58 AM EST [facility] for referral (narrative)* Diagnostic Procedure Only (Routine) - Closed Specialty Diagnoses / Procedures Referred By Contac t Referred To Contact XR IMAGING Diagnoses Neck pain Procedures XR CERV OTHER 4V AP/LAT/OBL RADEX SPINE CERVICAL 4 OR 5 VIEWS Palma Lovett, PINSETTER MECHANIC AUTOMATIC.COMPLAINT EVALUATION OFFICER [address] [place] [address] [place] [address] Referral ID Status Reason Start Date Expiration Date V isits Requested Visits Authorized [id number] Closed Auto-Generate d Referral 12/16/2021 01/15/2023 1 1 [facility] for referral (narrative)No reason for referral information [facility] Work Phone: Reason for visit Narrative* Diagnostic Procedure Only (Routine) - Closed Specialty Diagnoses / Procedures Referred By Contac t Referred To Contact BR IMAGING Diagnoses Abnormal mammogram of left breast Procedures PARRIS DIAGNOSTIC LT DIAGNOSTIC MAMMOGRAPHY COMPUTER-AIDED DETCJ [facility] Kymberly Shelley MD [address] [place] [address] [facility] Imaging [address] [place] [address] Referral ID Status Reason Start Date Expiration Date V isits Requested Visits Authorized [id number] Closed Auto-Generate d Referral 10/03/2022 11/02/2023 1 1 [facility] for visit Narrative* Diagnostic Procedure Only (Routine) - Closed Specialty Diagnoses / Procedures Referred By Contac t Referred To Contact BR IMAGING Diagnoses Screening mammogram for breast cancer Procedures PARRIS SCREENING SCREENING MAMMOGRAPHY BI 2-VIEW BREAST INC CAD Ronna Quiroz, PINSETTER MECHANIC AUTOMATIC.COMPLAINT EVALUATION OFFICER [address] [place] [address] [facility] Imaging [address] [place] [address] Referral ID Status Reason Start Date Expiration Date V isits Requested Visits Authorized [id number] Closed Auto-Generate d Referral 10/02/2022 11/01/2023 1 1 [facility] for visit Narrative* Diagnostic Procedure Only (Routine) - Closed Specialty Diagnoses / Procedures Referred By Viktro t Referred To Contact XR IMAGING Diagnoses Injury of left lower extremity, subsequent encounter Wound of left lower extremity, subsequent encounter Pain of left lower extremity Hematoma of left lower leg Procedures XR TIBIA FIBULA 2V AP/LAT LEFT RADIOLOGIC EXAMINATION TIBIA & FIBULA 2 VIEWS Wily Abarca, PINSETTER MECHANIC AUTOMATIC.COMPLAINT EVALUATION OFFICER [address] [place] [address] Xr Imaging [facility] Referral ID Status Reason Start Date Expiration Date V isits Requested Visits Authorized [id number] Closed Auto-Generate d Referral 07/03/2022 08/02/2023 1 1 [facility] for visit Narrative* Diagnostic Procedure Only (Routine) - Closed Specialty Diagnoses / Procedures Referred By Adonayac t Referred To Contact BR IMAGING Diagnoses Encounter for screening mammogram for breast cancer Procedures PARRIS SCREENING W ODMENIC SCREENING DIGITAL BREAST TOMOSYNTHESIS BI SCREENING MAMMOGRAPHY BI 2-VIEW BREAST INC CAD Miah Cottrell, DO [address] [place] [address] Phone: tel: fax: BR IMAG[facility] [address] [place] [address] Referral ID Status Reason Start Date Expiration Date V isits Requested Visits Authorized [id number] Closed Auto-Generate d Referral 11/11/2024 12/11/2025 1 1 [facility] for visit Narrative* MRI/CT (Routine) - Closed Specialty Diagnoses / Procedures Referred By Contac t Referred To Contact MR IMAGING Diagnoses Spinal stenosis of cervical region Procedures MRI CERVICAL SPINE WO IVCON MRI SPINAL CANAL CERVICAL W/O CONTRAST Dorothy Mesa, PINSETTER MECHANIC AUTOMATIC.COMPLAINT EVALUATION OFFICER [address] [place] [address] Phone: tel: fax: [place] [phone] Referral ID Status Reason Start Date Expiration Date V isits Requested Visits Authorized [id number] Closed Auto-Generate d Referral 02/13/2025 03/15/2026 1 1 [facility] Summary Purpose Family History No Family History [...] FoundDocuments on File Type Date Recorded Patient Kitchenhand Expl anation ACP-Advance Directive 08/04/2016 2:12 PM Latest Code Status on File Code Status Date Activated Date Inactivated Comments Full Code 08/03/2016 10:48 AM 08/03/2016 10:23 PM Documents on File Type Date Recorded Patient Kitchenhand Expl anation Advance Directives and Livin g Will Advance Directives and Livin g Will 08/04/2016 2:12 PM Power of Crime Scene Specialist Documents on File Type Date Recorded Patient Kitchenhand Expl anation Advance Directive(s) 05/09/2021 9:06 AM Advance Directive(s) 04/15/2021 2:20 PM Advance Directive(s) 03/17/2019 6:24 AM Advance Directive(s) 11/21/2018 11:22 AM Advance Directive(s) 11/08/2018 4:17 PM Documents on File Type Date Recorded Patient Kitchenhand Expl anation Advance Directive(s) 05/09/2021 9:06 AM Advance Directive(s) 04/15/2021 2:20 PM Advance Directive(s) 03/17/2019 6:24 AM Advance Directive(s) 11/21/2018 11:22 AM Advance Directive(s) 11/08/2018 4:17 PM Documents on File Type Date Recorded Patient Kitchenhand Expl anation ACP-Advance Directive ACP-Power of Crime Scene Specialist ACP-Advance Directive 08/04/2016 2:12 PM Latest Code Status on File Code Status Date Activated Date Inactivated Comments Full Code 03/23/2022 7:01 AM Full Code 08/03/2016 10:48 AM 08/03/2016 10:23 PM Advance Directive Response Recorded Date/ Time Advance Directives No June 07, 2018 1:06pm Living Will No November 20, 2020 8:08pm Power of Crime Scene Specialist No November 20 8:08pm Advance Directive Response Recorded Date/ Time Advance Directives No June 07, 2018 1:06pm Advance Directive Response Recorded Date/ Time Do you have a Healthcare Power of Crime Scene Specialist? No June 12, 2025 2:17pm Advance Directives No June 07, 2018 12:06pm Assessments Diagnosis Right ankle pain, unspecified chronicity History of ankle fusion Other postprocedural status Traumatic arthritis of right ankle Reason for Referral Specialty Diagnoses / Procedures Referred By Contac t Referred To Contact [facility] Diagnoses Neck pain Procedures [facility]SULT TO [facility] OFFICE/OUTPATIENT NEW HIGH MDM 60-74 MINUTES Palma Lovett, [employer]IC [employer]IC.COMPLAINT EVALUATION OFFICER [address] [place] [address] Referral ID Status Reason Start Date Expiration Date Visits Requested Visits Authorized [id number] Authorized PCP Requested Referral 12/16/2021 12/16/2022 1 1 Specialty Diagnoses / Procedures Referred By Contac t Referred To Contact [facility] Diagnoses Neck pain Procedures CONSULT TO PHYSICAL THERAPY PHYSICAL THERAPY EVALUATION HIGH COMPLEX 45 MINS Palma Lovett, [employer]SETTER MECH[employer]IC AUTOMATIC.COMPLAINT EVALUATION OFFICER [address] [place] [address] [facility] [address] [place] [id number] Referral ID Status Reason Start Date Expiration Date Visits Requested Visits Authorized [id number] Authorized PCP Requested Referral Auto-Generate d Referral 12/16/2021 12/16/2022 99 99 Specialty Diagnoses / Procedures Referred By Contac t Referred To Contact CT [facility] Diagnoses New daily persistent headache 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) Hyperlipidemia, mixed Procedures CTA HEAD WO/W IVCON CT ANGIOGRAPHY HEAD W/CONTRAST/NONCONTRAST Miah Cottrell DO [address] [place] [address] Ct [facility] Referral ID Status Reason Start Date Expiration Date V isits Requested Visits Authorized [id number] Closed Auto-Generate d Referral 12/26/2021 01/25/2023 1 1 Specialty Diagnoses / Procedures Referred By Contac t Referred To Contact Diagnoses Essential tremor Procedures PROVIDER ORDERED FOLLOW UP OFFICE/OUTPATIENT [facility] MDM 60-74 MINUTES Marko Wood MD [address] [address] Referral ID Status Reason Start Date Expiration Date Visits Requested Visits Authorized [id number] Authorized PCP Requested Referral 02/01/2023 05/02/2023 1 1 Specialty Diagnoses / Procedures Referred By Contac t Referred To Contact General Surgery Diagnoses Multiple thyroid nodules Procedures CONSULT TO GENERAL SURGERY OFFICE/OUTPATIENT [facility] MDM 60-74 MINUTES Ronna Quiroz, PINSETTER MECHANIC AUTOMATIC.COMPLAINT EVALUATION OFFICER [address] [place] [address] Referral ID Status Reason Start Date Expiration Date V isits Requested Visits Authorized [id number] Closed PCP Requested Referral 04/12/2023 04/11/2024 1 1 Specialty Diagnoses / Procedures Referred By Contac t Referred To Contact Diagnoses Essential tremor Procedures PROVIDER ORDERED FOLLOW UP Marko Wood MD [address] [address] Referral ID Status Reason Start Date Expiration Date Visits Requested Visits Authorized [id number] Ref Not Required PCP Requested Referral 04/19/2023 07/18/2023 1 1 Specialty Diagnoses / Procedures Referred By Contac t Referred To Contact [facility] Diagnoses Osteoporosis, postmenopausal Palma Lovett, PINSETTER MECH[employer]IC [employer]OM[employer]IC.COMPLAINT EVALUATION OFFICER [address] [place] [address] [facility] [address] [place] [address] Referral ID Status Reason Start Date Expiration Date Visits Requested Visits Authorized [id number] Authorized Auto-Generat ed Referral 10/14/2023 1 1 Specialty Diagnoses / Procedures Referred By Contact Referred To Contact [facility] [place] [address] [place] [address] [facility] [address] [place] [address] Referral ID Status Reason Start Date Expiration Date V isits Requested Visits Authorized [id number] Closed Auto-Generate d Referral 01/28/2024 04/27/2024 1 1 Specialty Diagnoses / Procedures Referred By Contac t Referred To Contact Diagnoses Essential tremor Procedures PROVIDER ORDERED FOLLOW UP OFFICE/OUTPATIENT [facility] 60 MINUTES Marko Wood MD [address] [facility] [address] [place] [address] Referral ID Status Reason Start Date Expiration Date Visits Requested Visits Authorized [id number] Authorized PCP Requested Referral 2024 07/13/2024 1 1 Referral ID Status Reason Start Date Expiration Date Visits Requested Visits Authorized [id number] Authorized Auto-Generat ed Referral 11/03/2024 1 1 [...] section and content) DATE CREATED AUTHOR 05/25/2019 [facility] DATE CREATED AUTHOR AUTHOR'S ORGANIZ ATION 04/15/2022 [facility] DATE CREATED AUTHOR AUTHOR'S ORGANIZ ATION 01/27/2023 [facility] DATE CREATED AUTHOR AUTHOR'S ORGANIZ ATION 05/23/2025 [facility] DATE CREATED AUTHOR AUTHOR'S ORGANIZ ATION 07/01/2025 [facility] Source Comments (unrecognize d section and content) In the event this informatio n is protected by the Federal Confidentiality of Alcohol and Drug Abuse Patient Records regulations: The Federal rules restrict any use of the information to criminally investigate or prosecute any alcohol or drug abuse patient.[facility] the event this information is protected by the Federal Confidentiality of Alcohol and Drug Abuse Patient Records regulations: The Federal rules restrict any use of the information to criminally investigate or prosecute any alcohol or drug abuse patient.[facility] the event this information is protected by the Federal Confidentiality of Alcohol and Drug Abuse Patient Records regulations: The Federal rules restrict any use of the information to criminally investigate or prosecute any alcohol or drug abuse patient.[facility] the event this information is protected by the Federal Confidentiality of Alcohol and Drug Abuse Patient Records regulations: The Federal rules restrict any use of the information to criminally investigate or prosecute any alcohol or drug abuse patient.[facility] the event this information is protected by the Federal Confidentiality of Alcohol and Drug Abuse Patient Records regulations: The Federal rules restrict any use of the information to criminally investigate or prosecute any alcohol or drug abuse patient.[facility] the event this information is protected by the Federal Confidentiality of Alcohol and Drug Abuse Patient Records regulations: The Federal rules restrict any use of the information to criminally investigate or prosecute any alcohol or drug abuse patient.[facility] the event this information is protected by the Federal Confidentiality of Alcohol and Drug Abuse Patient Records regulations: The Federal rules restrict any use of the information to criminally investigate or prosecute any alcohol or drug abuse patient.[facility] the event this information is protected by the Federal Confidentiality of Alcohol and Drug Abuse Patient Records regulations: The Federal rules restrict any use of the information to criminally investigate or prosecute any alcohol or drug abuse patient.[facility] the event this information is protected by the Federal Confidentiality of Alcohol and Drug Abuse Patient Records regulations: The Federal rules restrict any use of the information to criminally investigate or prosecute any alcohol or drug abuse patient.[facility] the event this information is protected by the Federal Confidentiality of Alcohol and Drug Abuse Patient Records regulations: The Federal rules restrict any use of the information to criminally investigate or prosecute any alcohol or drug abuse patient.[facility] the event this information is protected by the Federal Confidentiality of Alcohol and Drug Abuse Patient Records regulations: The Federal rules restrict any use of the information to criminally investigate or prosecute any alcohol or drug abuse patient.[facility] the event this information is protected by the Federal Confidentiality of Alcohol and Drug Abuse Patient Records regulations: The Federal rules restrict any use of the information to criminally investigate or prosecute any alcohol or drug abuse patient.[facility] the event this information is protected by the Federal Confidentiality of Alcohol and Drug Abuse Patient Records regulations: The Federal rules restrict any use of the information to criminally investigate or prosecute any alcohol or drug abuse patient.[facility] the event this information is protected by the Federal Confidentiality of Alcohol and Drug Abuse Patient Records regulations: The Federal rules restrict any use of the information to criminally investigate or prosecute any alcohol or drug abuse patient.[facility] the event this information is protected by the Federal Confidentiality of Alcohol and Drug Abuse Patient Records regulations: The Federal rules restrict any use of the information to criminally investigate or prosecute any alcohol or drug abuse patient.[facility] the event this information is protected by the Federal Confidentiality of Alcohol and Drug Abuse Patient Records regulations: The Federal rules restrict any use of the information to criminally investigate or prosecute any alcohol or drug abuse patient.[facility] the event this information is protected by the Federal Confidentiality of Alcohol and Drug Abuse Patient Records regulations: The Federal rules restrict any use of the information to criminally investigate or prosecute any alcohol or drug abuse patient.[facility] the event this information is protected by the Federal Confidentiality of Alcohol and Drug Abuse Patient Records regulations: The Federal rules restrict any use of the information to criminally investigate or prosecute any alcohol or drug abuse patient.[facility] the event this information is protected by the Federal Confidentiality of Alcohol and Drug Abuse Patient Records regulations: The Federal rules restrict any use of the information to criminally investigate or prosecute any alcohol or drug abuse patient.[facility] the event this information is protected by the Federal Confidentiality of Alcohol and Drug Abuse Patient Records regulations: The Federal rules restrict any use of the information to criminally investigate or prosecute any alcohol or drug abuse patient.[facility] the event this information is protected by the Federal Confidentiality of Alcohol and Drug Abuse Patient Records regulations: The Federal rules restrict any use of the information to criminally investigate or prosecute any alcohol or drug abuse patient.[facility] the event this information is protected by the Federal Confidentiality of Alcohol and Drug Abuse Patient Records regulations: The Federal rules restrict any use of the information to criminally investigate or prosecute any alcohol or drug abuse patient.[facility] the event this information is protected by the Federal Confidentiality of Alcohol and Drug Abuse Patient Records regulations: The Federal rules restrict any use of the information to criminally investigate or prosecute any alcohol or drug abuse patient.[facility] the event this information is protected by the Federal Confidentiality of Alcohol and Drug Abuse Patient Records regulations: The Federal rules restrict any use of the information to criminally investigate or prosecute any alcohol or drug abuse patient.[facility] the event this information is protected by the Federal Confidentiality of Alcohol and Drug Abuse Patient Records regulations: The Federal rules restrict any use of the information to criminally investigate or prosecute any alcohol or drug abuse patient.[facility]In the event this information is protected by the Federal Confidentiality of Alcohol and Drug Abuse Patient Records regulations: The Federal rules restrict any use of the information to criminally investigate or prosecute any alcohol or drug abuse patient.[facility] the event this information is protected by the Federal Confidentiality of Alcohol and Drug Abuse Patient Records regulations: The Federal rules restrict any use of the information to criminally investigate or prosecute any alcohol or drug abuse patient.[facility] the event this information is protected by the Federal Confidentiality of Alcohol and Drug Abuse Patient Records regulations: The Federal rules restrict any use of the information to criminally investigate or prosecute any alcohol or drug abuse patient.[facility]In the event this information is protected by the Federal Confidentiality of Alcohol and Drug Abuse Patient Records regulations: The Federal rules restrict any use of the information to criminally investigate or prosecute any alcohol or drug abuse patient.[facility]In the event this information is protected by the Federal Confidentiality of Alcohol and Drug Abuse Patient Records regulations: The Federal rules restrict any use of the information to criminally investigate or prosecute any alcohol or drug abuse patient.[facility]In the event this information is protected by the Federal Confidentiality of Alcohol and Drug Abuse Patient Records regulations: The Federal rules restrict any use of the information to criminally investigate or prosecute any alcohol or drug abuse patient.[facility]In the event this information is protected by the Federal Confidentiality of Alcohol and Drug Abuse Patient Records regulations: The Federal rules restrict any use of the information to criminally investigate or prosecute any alcohol or drug abuse patient.[facility]In the event this information is protected by the Federal Confidentiality of Alcohol and Drug Abuse Patient Records regulations: The Federal rules restrict any use of the information to criminally investigate or prosecute any alcohol or drug abuse patient.[facility]In the event this information is protected by the Federal Confidentiality of Alcohol and Drug Abuse Patient Records regulations: The Federal rules restrict any use of the information to criminally investigate or prosecute any alcohol or drug abuse patient.[facility]In the event this information is protected by the Federal Confidentiality of Alcohol and Drug Abuse Patient Records regulations: The Federal rules restrict any use of the information to criminally investigate or prosecute any alcohol or drug abuse patient.[facility]In the event this information is protected by the Federal Confidentiality of Alcohol and Drug Abuse Patient Records regulations: The Federal rules restrict any use of the information to criminally investigate or prosecute any alcohol or drug abuse patient.[facility]In the event this information is protected by the Federal Confidentiality of Alcohol and Drug Abuse Patient Records regulations: The Federal rules restrict any use of the information to criminally investigate or prosecute any alcohol or drug abuse patient.[facility]In the event this information is protected by the Federal Confidentiality of Alcohol and Drug Abuse Patient Records regulations: The Federal rules restrict any use of the information to criminally investigate or prosecute any alcohol or drug abuse patient.[facility]In the event this information is protected by the Federal Confidentiality of Alcohol and Drug Abuse Patient Records regulations: The Federal rules restrict any use of the information to criminally investigate or prosecute any alcohol or drug abuse patient.[facility]In the event this information is protected by the Federal Confidentiality of Alcohol and Drug Abuse Patient Records regulations: The Federal rules restrict any use of the information to criminally investigate or prosecute any alcohol or drug abuse patient.[facility]In the event this information is protected by the Federal Confidentiality of Alcohol and Drug Abuse Patient Records regulations: The Federal rules restrict any use of the information to criminally investigate or prosecute any alcohol or drug abuse patient.[facility]In the event this information is protected by the Federal Confidentiality of Alcohol and Drug Abuse Patient Records regulations: The Federal rules restrict any use of the information to criminally investigate or prosecute any alcohol or drug abuse patient.[facility]In the event this information is protected by the Federal Confidentiality of Alcohol and Drug Abuse Patient Records regulations: The Federal rules restrict any use of the information to criminally investigate or prosecute any alcohol or drug abuse patient.[facility]In the event this information is protected by the Federal Confidentiality of Alcohol and Drug Abuse Patient Records regulations: The Federal rules restrict any use of the information to criminally investigate or prosecute any alcohol or drug abuse patient.[facility]In the event this information is protected by the Federal Confidentiality of Alcohol and Drug Abuse Patient Records regulations: The Federal rules restrict any use of the information to criminally investigate or prosecute any alcohol or drug abuse patient.[facility]In the event this information is protected by the Federal Confidentiality of Alcohol and Drug Abuse Patient Records regulations: The Federal rules restrict any use of the information to criminally investigate or prosecute any alcohol or drug abuse patient.[facility]In the event this information is protected by the Federal Confidentiality of Alcohol and Drug Abuse Patient Records regulations: The Federal rules restrict any use of the information to criminally investigate or prosecute any alcohol or drug abuse patient.[facility]In the event this information is protected by the Federal Confidentiality of Alcohol and Drug Abuse Patient Records regulations: The Federal rules restrict any use of the information to criminally investigate or prosecute any alcohol or drug abuse patient.[facility]In the event this information is protected by the Federal Confidentiality of Alcohol and Drug Abuse Patient Records regulations: The Federal rules restrict any use of the information to criminally investigate or prosecute any alcohol or drug abuse patient.[facility]In the event this information is protected by the Federal Confidentiality of Alcohol and Drug Abuse Patient Records regulations: The Federal rules restrict any use of the information to criminally investigate or prosecute any alcohol or drug abuse patient.[facility]In the event this information is protected by the Federal Confidentiality of Alcohol and Drug Abuse Patient Records regulations: The Federal rules restrict any use of the information to criminally investigate or prosecute any alcohol or drug abuse patient.[facility]In the event this information is protected by the Federal Confidentiality of Alcohol and Drug Abuse Patient Records regulations: The Federal rules restrict any use of the information to criminally investigate or prosecute any alcohol or drug abuse patient.[facility]In the event this information is protected by the Federal Confidentiality of Alcohol and Drug Abuse Patient Records regulations: The Federal rules restrict any use of the information to criminally investigate or prosecute any alcohol or drug abuse patient.[facility]In the event this information is protected by the Federal Confidentiality of Alcohol and Drug Abuse Patient Records regulations: The Federal rules restrict any use of the information to criminally investigate or prosecute any alcohol or drug abuse patient.[facility]In the event this information is protected by the Federal Confidentiality of Alcohol and Drug Abuse Patient Records regulations: The Federal rules restrict any use of the information to criminally investigate or prosecute any alcohol or drug abuse patient.[facility]In the event this information is protected by the Federal Confidentiality of Alcohol and Drug Abuse Patient Records regulations: The Federal rules restrict any use of the information to criminally investigate or prosecute any alcohol or drug abuse patient.[facility]In the event this information is protected by the Federal Confidentiality of Alcohol and Drug Abuse Patient Records regulations: The Federal rules restrict any use of the information to criminally investigate or prosecute any alcohol or drug abuse patient.[facility]In the event this information is protected by the Federal Confidentiality of Alcohol and Drug Abuse Patient Records regulations: The Federal rules restrict any use of the information to criminally investigate or prosecute any alcohol or drug abuse patient.[facility]In the event this information is protected by the Federal Confidentiality of Alcohol and Drug Abuse Patient Records regulations: The Federal rules restrict any use of the information to criminally investigate or prosecute any alcohol or drug abuse patient.[facility]In the event this information is protected by the Federal Confidentiality of Alcohol and Drug Abuse Patient Records regulations: The Federal rules restrict any use of the information to criminally investigate or prosecute any alcohol or drug abuse patient.[facility] EastIn the event this information is protected by the Federal Confidentiality of Alcohol and Drug Abuse Patient Records regulations: The Federal rules restrict any use of the information to criminally investigate or prosecute any alcohol or drug abuse patient.[facility] EastIn the event this information is protected by the Federal Confidentiality of Alcohol and Drug Abuse Patient Records regulations: The Federal rules restrict any use of the information to criminally investigate or prosecute any alcohol or drug abuse patient.[facility] EastIn the event this information is protected by the Federal Confidentiality of Alcohol and Drug Abuse Patient Records regulations: The Federal rules restrict any use of the information to criminally investigate or prosecute any alcohol or drug abuse patient.[facility] EastIn the event this information is protected by the Federal Confidentiality of Alcohol and Drug Abuse Patient Records regulations: The Federal rules restrict any use of the information to criminally investigate or prosecute any alcohol or drug abuse patient.[facility] EastIn the event this information is protected by the Federal Confidentiality of Alcohol and Drug Abuse Patient Records regulations: The Federal rules restrict any use of the information to criminally investigate or prosecute any alcohol or drug abuse patient.[facility] EastIn the event this information is protected by the Federal Confidentiality of Alcohol and Drug Abuse Patient Records regulations: The Federal rules restrict any use of the information to criminally investigate or prosecute any alcohol or drug abuse patient.[facility]In the event this information is protected by the Federal Confidentiality of Alcohol and Drug Abuse Patient Records regulations: The Federal rules restrict any use of the information to criminally investigate or prosecute any alcohol or drug abuse patient.[facility] EastIn the event this information is protected by the Federal Confidentiality of Alcohol and Drug Abuse Patient Records regulations: The Federal rules restrict any use of the information to criminally investigate or prosecute any alcohol or drug abuse patient.[facility] EastIn the event this information is protected by the Federal Confidentiality of Alcohol and Drug Abuse Patient Records regulations: The Federal rules restrict any use of the information to criminally investigate or prosecute any alcohol or drug abuse patient.[facility]In the event this information is protected by the Federal Confidentiality of Alcohol and Drug Abuse Patient Records regulations: The Federal rules restrict any use of the information to criminally investigate or prosecute any alcohol or drug abuse patient.[facility] EastIn the event this information is protected by the Federal Confidentiality of Alcohol and Drug Abuse Patient Records regulations: The Federal rules restrict any use of the information to criminally investigate or prosecute any alcohol or drug abuse patient.[facility] EastIn the event this information is protected by the Federal Confidentiality of Alcohol and Drug Abuse Patient Records regulations: The Federal rules restrict any use of the information to criminally investigate or prosecute any alcohol or drug abuse patient.[facility] EastIn the event this information is protected by the Federal Confidentiality of Alcohol and Drug Abuse Patient Records regulations: The Federal rules restrict any use of the information to criminally investigate or prosecute any alcohol or drug abuse patient.[facility] EastIn the event this information is protected by the Federal Confidentiality of Alcohol and Drug Abuse Patient Records regulations: The Federal rules restrict any use of the information to criminally investigate or prosecute any alcohol or drug abuse patient.[facility] EastIn the event this information is protected by the Federal Confidentiality of Alcohol and Drug Abuse Patient Records regulations: The Federal rules restrict any use of the information to criminally investigate or prosecute any alcohol or drug abuse patient.[facility] EastIn the event this information is protected by the Federal Confidentiality of Alcohol and Drug Abuse Patient Records regulations: The Federal rules restrict any use of the information to criminally investigate or prosecute any alcohol or drug abuse patient.[facility] EastIn the event this information is protected by the Federal Confidentiality of Alcohol and Drug Abuse Patient Records regulations: The Federal rules restrict any use of the information to criminally investigate or prosecute any alcohol or drug abuse patient.[facility]In the event this information is protected by the Federal Confidentiality of Alcohol and Drug Abuse Patient Records regulations: The Federal rules restrict any use of the information to criminally investigate or prosecute any alcohol or drug abuse patient.[facility] EastIn the event this information is protected by the Federal Confidentiality of Alcohol and Drug Abuse Patient Records regulations: The Federal rules restrict any use of the information to criminally investigate or prosecute any alcohol or drug abuse patient.[facility]In the event this information is protected by the Federal Confidentiality of Alcohol and Drug Abuse Patient Records regulations: The Federal rules restrict any use of the information to criminally investigate or prosecute any alcohol or drug abuse patient.[facility]In the event this information is protected by the Federal Confidentiality of Alcohol and Drug Abuse Patient Records regulations: The Federal rules restrict any use of the information to criminally investigate or prosecute any alcohol or drug abuse patient.[facility]In the event this information is protected by the Federal Confidentiality of Alcohol and Drug Abuse Patient Records regulations: The Federal rules restrict any use of the information to criminally investigate or prosecute any alcohol or drug abuse patient.[facility]In the event this information is protected by the Federal Confidentiality of Alcohol and Drug Abuse Patient Records regulations: The Federal rules restrict any use of the information to criminally investigate or prosecute any alcohol or drug abuse patient.[facility] EastIn the event this information is protected by the Federal Confidentiality of Alcohol and Drug Abuse Patient Records regulations: The Federal rules restrict any use of the information to criminally investigate or prosecute any alcohol or drug abuse patient.[facility]In the event this information is protected by the Federal Confidentiality of Alcohol and Drug Abuse Patient Records regulations: The Federal rules restrict any use of the information to criminally investigate or prosecute any alcohol or drug abuse patient.[facility]In the event this information is protected by the Federal Confidentiality of Alcohol and Drug Abuse Patient Records regulations: The Federal rules restrict any use of the information to criminally investigate or prosecute any alcohol or drug abuse patient.[facility]In the event this information is protected by the Federal Confidentiality of Alcohol and Drug Abuse Patient Records regulations: The Federal rules restrict any use of the information to criminally investigate or prosecute any alcohol or drug abuse patient.[facility] EastIn the event this information is protected by the Federal Confidentiality of Alcohol and Drug Abuse Patient Records regulations: The Federal rules restrict any use of the information to criminally investigate or prosecute any alcohol or drug abuse patient.[facility]In the event this information is protected by the Federal Confidentiality of Alcohol and Drug Abuse Patient Records regulations: The Federal rules restrict any use of the information to criminally investigate or prosecute any alcohol or drug abuse patient.[facility]In the event this information is protected by the Federal Confidentiality of Alcohol and Drug Abuse Patient Records regulations: The Federal rules restrict any use of the information to criminally investigate or prosecute any alcohol or drug abuse patient.[facility]In the event this information is protected by the Federal Confidentiality of Alcohol and Drug Abuse Patient Records regulations: The Federal rules restrict any use of the information to criminally investigate or prosecute any alcohol or drug abuse patient.[facility]In the event this information is protected by the Federal Confidentiality of Alcohol and Drug Abuse Patient Records regulations: The Federal rules restrict any use of the information to criminally investigate or prosecute any alcohol or drug abuse patient.[facility]In the event this information is protected by the Federal Confidentiality of Alcohol and Drug Abuse Patient Records regulations: The Federal rules restrict any use of the information to criminally investigate or prosecute any alcohol or drug abuse patient.[facility]In the event this information is protected by the Federal Confidentiality of Alcohol and Drug Abuse Patient Records regulations: The Federal rules restrict any use of the information to criminally investigate or prosecute any alcohol or drug abuse patient.[facility]In the event this information is protected by the Federal Confidentiality of Alcohol and Drug Abuse Patient Records regulations: The Federal rules restrict any use of the information to criminally investigate or prosecute any alcohol or drug abuse patient.[facility]In the event this information is protected by the Federal Confidentiality of Alcohol and Drug Abuse Patient Records regulations: The Federal rules restrict any use of the information to criminally investigate or prosecute any alcohol or drug abuse patient.[facility]In the event this information is protected by the Federal Confidentiality of Alcohol and Drug Abuse Patient Records regulations: The Federal rules restrict any use of the information to criminally investigate or prosecute any alcohol or drug abuse patient.[facility]In the event this information is protected by the Federal Confidentiality of Alcohol and Drug Abuse Patient Records regulations: The Federal rules restrict any use of the information to criminally investigate or prosecute any alcohol or drug abuse patient.[facility]In the event this information is protected by the Federal Confidentiality of Alcohol and Drug Abuse Patient Records regulations: The Federal rules restrict any use of the information to criminally investigate or prosecute any alcohol or drug abuse patient.[facility]In the event this information is protected by the Federal Confidentiality of Alcohol and Drug Abuse Patient Records regulations: The Federal rules restrict any use of the information to criminally investigate or prosecute any alcohol or drug abuse patient.[facility] EastIn the event this information is protected by the Federal Confidentiality of Alcohol and Drug Abuse Patient Records regulations: The Federal rules restrict any use of the information to criminally investigate or prosecute any alcohol or drug abuse patient.[facility] EastIn the event this information is protected by the Federal Confidentiality of Alcohol and Drug Abuse Patient Records regulations: The Federal rules restrict any use of the information to criminally investigate or prosecute any alcohol or drug abuse patient.[facility]In the event this information is protected by the Federal Confidentiality of Alcohol and Drug Abuse Patient Records regulations: The Federal rules restrict any use of the information to criminally investigate or prosecute any alcohol or drug abuse patient.[facility]In the event this information is protected by the Federal Confidentiality of Alcohol and Drug Abuse Patient Records regulations: The Federal rules restrict any use of the information to criminally investigate or prosecute any alcohol or drug abuse patient.[facility]In the event this information is protected by the Federal Confidentiality of Alcohol and Drug Abuse Patient Records regulations: The Federal rules restrict any use of the information to criminally investigate or prosecute any alcohol or drug abuse patient.[facility]In the event this information is protected by the Federal Confidentiality of Alcohol and Drug Abuse Patient Records regulations: The Federal rules restrict any use of the information to criminally investigate or prosecute any alcohol or drug abuse patient.[facility] EastIn the event this information is protected by the Federal Confidentiality of Alcohol and Drug Abuse Patient Records regulations: The Federal rules restrict any use of the information to criminally investigate or prosecute any alcohol or drug abuse patient.[facility] Care Teams (unrecognized sec tion and content) Professor Of Engineering Relationship Specialty Start Date End Date Miah Cottrell, [address] [place] [address] PCP - General Family Practice 11/05/15 Professor Of Engineering Relationship Specialty Start Date End Date Miah Cottrell, DO [address] [place] [address] PCP - General Family Practice 11/05/15 Professor Of Engineering Relationship Specialty Start Date End Date Miah Cottrell, DO [address] [place] [address] PCP - General Family Practice 11/05/15 Professor Of Engineering Relationship Specialty Start Date End Date Miah Cottrell, DO [address] [place] [address] PCP - General Family Practice 11/05/15 Professor Of Engineering Relationship Specialty Start Date End Date Miah Cottrell PCP - General 07/31/16 Professor Of Engineering Relationship Specialty Start Date End Date Miah Cottrell, DO [address] [place] [address] PCP - General Family Practice 11/05/15 Professor Of Engineering Relationship Specialty Start Date End Date Miah Cottrell, DO [address] [place] [address] PCP - General Family Practice 11/05/15 Professor Of Engineering Relationship Specialty Start Date End Date Miah Cottrell, DO [address] [place] [address] PCP - General Family Practice 11/05/15 Professor Of Engineering Relationship Specialty Start Date End Date Miah Cottrell, DO [address] [place] [address] PCP - General Family Practice 11/05/15 Professor Of Engineering Relationship Specialty Start Date End Date Miah Cottrell PCP - General 07/31/16 Professor Of Engineering Relationship Specialty Start Date End Date Miah Cottrell, DO [address] [place] [address] PCP - General Family Practice 11/05/15 Professor Of Engineering Relationship Specialty Start Date End Date Miah Cottrell, DO [address] [place] [address] PCP - General Family Practice 11/05/15 Professor Of Engineering Relationship Specialty Start Date End Date Miah Cottrell PCP - General 07/31/16 Professor Of Engineering Relationship Specialty Start Date End Date Miah Cottrell, DO [address] [place] [address] PCP - General Family Practice 11/05/15 Professor Of Engineering Relationship Specialty Start Date End Date Miah Cottrell, DO [address] [place] [address] PCP - General Family Practice 11/05/15 Professor Of Engineering Relationship Specialty Start Date End Date Miah Cottrell, DO [address] [place] [address] PCP - General Family Practice 11/05/15 Professor Of Engineering Relationship Specialty Start Date End Date Miah Cottrell, DO [address] [place] [address] PCP - General Family Practice 11/05/15 Professor Of Engineering Relationship Specialty Start Date End Date Miah Cottrell, DO [address] [place] [address] PCP - General Family Medicine 11/05/15 Professor Of Engineering Relationship Specialty Start Date End Date Miah Cottrell, DO [address] [place] [address] PCP - General Family Medicine 11/05/15 Professor Of Engineering Relationship Specialty Start Date End Date Miah Cottrell, DO [address] [place] [address] PCP - General Family Medicine 11/05/15 Professor Of Engineering Relationship Specialty Start Date End Date Miah Cottrell, DO [address] [place] [address] PCP - General Family Medicine 11/05/15 Professor Of Engineering Relationship Specialty Start Date End Date Miah Cottrell, DO [address] [place] [address] PCP - General Family Medicine 11/05/15 Professor Of Engineering Relationship Specialty Start Date End Date Miah Cottrell, DO [address] [place] [address] PCP - General Family Medicine 11/05/15 Professor Of Engineering Relationship Specialty Start Date End Date Miah Cottrell, DO [address] [place] [address] PCP - General Family Medicine 11/05/15 Professor Of Engineering Relationship Specialty Start Date End Date Miah Cottrell, DO [address] [place] [address] PCP - General Family Medicine 11/05/15 Professor Of Engineering Relationship Specialty Start Date End Date Miah Cottrell, DO [address] [place] [address] PCP - General Family Medicine 11/05/15 Professor Of Engineering Relationship Specialty Start Date End Date Miah Cottrell, DO [address] [place] [address] PCP - General Family Medicine 11/05/15 Professor Of Engineering Relationship Specialty Start Date End Date Miah Cottrell, DO [address] [place] [address] PCP - General Family Medicine 11/05/15 Professor Of Engineering Relationship Specialty Start Date End Date Miah Cottrell DO [address] [place] [address] PCP - General Family Medicine 11/05/15 Professor Of Engineering Relationship Specialty Start Date End Date Miah Cottrell DO [address] [place] [address] PCP - General Family Medicine 11/05/15 Professor Of Engineering Relationship Specialty Start Date End Date Miah Cottrell DO [address] [facility] [place] [address] PCP - General Family Medicine 11/05/15 Professor Of Engineering Relationship Specialty Start Date End Date Miah Cottrell DO [address] [facility] [place] [address] PCP - General Family Medicine 11/05/15 Professor Of Engineering Relationship Specialty Start Date End Date Miah Cottrell DO [address] [place] [address] PCP - General Family Medicine 11/05/15 Professor Of Engineering Relationship Specialty Start Date End Date Miah Cottrell DO [address] [facility] [place] [place] [address] PCP - General Family Medicine 11/05/15 Professor Of Engineering Relationship Specialty Start Date End Date Miah Cottrell DO [address] [place] [address] PCP - General Family Medicine 11/05/15 Professor Of Engineering Relationship Specialty Start Date End Date Miah Cottrell DO [address] [place] [address] PCP - General Family Medicine 11/05/15 Team Status: Active Member Role Status Dates Dr. Miah Cottrell DO Family Provider Active Dr. Miah Cottrell DO Primary Care Provider Active Team Status: Inactive Member Role Status Dates Dr. Miah Cottrell DO Primary Care Provider Active Miah RICHARD Attending Provider Active Professor Of Engineering Relationship Specialty Start Date End Date Miah Cottrell DO [address] [facility] [place] [address] PCP - General Family Medicine 11/05/15 Professor Of Engineering Relationship Specialty Start Date End Date Miah Cottrell DO [address] [facility] [place] [address] PCP - General Family Medicine 11/05/15 Professor Of Engineering Relationship Specialty Start Date End Date Miah Cottrell DO [address] [place] [address] PCP - General Family Medicine 11/05/15 Professor Of Engineering Relationship Specialty Start Date End Date Miah Cottrell DO [address] [place] [address] PCP - General Family Medicine 11/05/15 Professor Of Engineering Relationship Specialty Start Date End Date Miah Cottrell DO [address] [place] [address] PCP - General Family Medicine 11/05/15 Professor Of Engineering Relationship Specialty Start Date End Date Miah Cottrell DO [address] [place] [address] PCP - General Family Medicine 11/05/15 Professor Of Engineering Relationship Specialty Start Date End Date Miah Cottrell DO [address] [facility] [place] [address] PCP - General Family Medicine 11/05/15 Professor Of Engineering Relationship Specialty Start Date End Date Miah Cottrell DO [address] [facility] [place] [address] PCP - General Family Medicine 11/05/15 Professor Of Engineering Relationship Specialty Start Date End Date Miah Cottrell DO [address] [facility] [place] [address] PCP - General Family Medicine 11/05/15 Professor Of Engineering Relationship Specialty Start Date End Date Miah Cottrell DO [address] [facility] [place] [address] PCP - General Family Medicine 11/05/15 Professor Of Engineering Relationship Specialty Start Date End Date Miah Cottrell DO [address] [facility] [place] [address] PCP - General Family Medicine 11/05/15 Professor Of Engineering Relationship Specialty Start Date End Date Miah Cottrell DO [address] [facility] [place] [address] PCP - General Family Medicine 11/05/15 Team Status: Inactive Member Role Status Dates Dr. Miah Cottrell DO Primary Care Provider Active Dr. Mickey Hagen MD Attending Provider, Referring Provider Active Professor Of Engineering Relationship Specialty Start Date End Date Miah Cottrell DO [address] [facility] [place] [address] PCP - General Family Medicine 11/05/15 Professor Of Engineering Relationship Specialty Start Date End Date Miah Cottrell DO [address] [facility] [place] [address] PCP - General Family Medicine 11/05/15 Professor Of Engineering Relationship Specialty Start Date End Date Miah Cottrell DO [address] [facility] [place] [address] PCP - General Family Medicine 11/05/15 Professor Of Engineering Relationship Specialty Start Date End Date Miah Cottrell DO [address] [facility] [place] [address] PCP - General Family Medicine 11/05/15 Professor Of Engineering Relationship Specialty Start Date End Date Miah Cottrell, [address] [facility] [place] [address] PCP - General Family Medicine 11/05/15 Professor Of Engineering Relationship Specialty Start Date End Date Miah Cottrell DO [address] [place] [address] PCP - General Family Medicine 11/05/15 Professor Of Engineering Relationship Specialty Start Date End Date Miah Cottrell, [address] [place] [address] PCP - General Family Medicine 11/05/15 Professor Of Engineering Relationship Specialty Start Date End Date Miah Cottrell, [address] [place] [address] PCP - General Family Medicine 11/05/15 Professor Of Engineering Relationship Specialty Start Date End Date Miah Cottrell, [address] [place] [address] PCP - General Family Medicine 11/05/15 Professor Of Engineering Relationship Specialty Start Date End Date Miah Cottrell, [address] [place] [address] PCP - General Family Medicine 11/05/15 Professor Of Engineering Relationship Specialty Start Date End Date Miah Cottrell DO [address] [facility] [place] [address] PCP - General Family Medicine 11/05/15 Professor Of Engineering Relationship Specialty Start Date End Date Miah Cottrell DO [address] [facility] [place] [address] PCP - General Family Medicine 11/05/15 Professor Of Engineering Relationship Specialty Start Date End Date Miah Cottrell DO [address] [facility] [place] [address] PCP - General Family Medicine 11/05/15 Professor Of Engineering Relationship Specialty Start Date End Date Miah Cottrell DO [address] [facility] [place] [address] PCP - General Family Medicine 11/05/15 Professor Of Engineering Relationship Specialty Start Date End Date Miah Cottrell DO [address] [facility] [place] [address] PCP - General Family Medicine 11/05/15 Professor Of Engineering Relationship Specialty Start Date End Date Miah Cottrell DO [address] [facility] [place] [address] PCP - General Family Medicine 11/05/15 Professor Of Engineering Relationship Specialty Start Date End Date Miah Cottrell DO [address] [facility] [place] [address] PCP - General Family Medicine 11/05/15 Ronna Quiroz APRN.COMPLAINT EVALUATION OFFICER [address] [facility] [place] [address] Healthcare Insurance Sales Agent Family Medicine 07/27/24 Flash Abarcaah, PINSETTER MECHANIC AUTOMATIC.COMPLAINT EVALUATION OFFICER [address] [facility] [place] [address] [facility] 07/27/24 Professor Of Engineering Relationship Specialty Start Date End Date Miah Cottrell DO [address] [facility] [place] [address] PCP - General Family Medicine 11/05/15 Ronna Quiroz, PINSETTER MECHANIC AUTOMATIC.COMPLAINT EVALUATION OFFICER [address] [facility] [place] [address] Healthcare [facility] 07/27/24 [facility]Wily, PINSETTER MECHANIC AUTOMATIC.COMPLAINT EVALUATION OFFICER [address] [facility] [place] [address] Healthcare [facility] 07/27/24 Professor Of Engineering Relationship Specialty Start Date End Date Miah Cottrell DO [address] [facility] [place] [address] PCP - General Family Medicine 11/05/15 Ronna Quiroz, PINSETTER MECHANIC AUTOMATIC.COMPLAINT EVALUATION OFFICER [address] [facility] [place] [address] Healthcare Insurance [facility] 07/27/24 [facility], PINSETTER MECHANIC AUTOMATIC.COMPLAINT EVALUATION OFFICER [address] [facility] [place] [address] [facility] 07/27/24 Professor Of Engineering Relationship Specialty Start Date End Date Miah Cottrell DO [address] [facility] [place] [address] PCP - General Family Medicine 11/05/15 Ronna Quiroz, PINSETTER MECHANIC AUTOMATIC.COMPLAINT EVALUATION OFFICER [address] [place] [address] Healthcare Insurance Sales Agent [facility] 07/27/24 TevinWily, PINSETTER MECHANIC AUTOMATIC.COMPLAINT EVALUATION OFFICER [address] [place] [address] Healthcare Insurance Sales Agent [facility] 07/27/24 Professor Of Engineering Relationship Specialty Start Date End Date Miah Cottrell DO [address] [place] [address] PCP - General Family Medicine 11/05/15 TevinWily, CARMINA.COMPLAINT EVALUATION OFFICER [address] [place] [address] Healthcare [facility] 07/27/24 Professor Of Engineering Relationship Specialty Start Date End Date Miah Cottrell DO [address] [place] [address] PCP - General Family Medicine 11/05/15 Wily Abarca, PINSETTER MECHANIC AUTOMATIC.COMPLAINT EVALUATION OFFICER [address] [place] [address] Healthcare [facility] 07/27/24 Professor Of Engineering Relationship Specialty Start Date End Date Miah Cottrell DO [address] [place] [address] PCP - General Family Medicine 11/05/15 Wily Abarca, PINSETTER MECHANIC AUTOMATIC.COMPLAINT EVALUATION OFFICER [address] [place] [address] Healthcare [facility] 07/27/24 Professor Of Engineering Relationship Specialty Start Date End Date Miah Cottrell DO [address] [place] [address] PCP - General Family Medicine 11/05/15 Wily Abarca, PINSETTER MECHANIC AUTOMATIC.COMPLAINT EVALUATION OFFICER [address] [place] [address] Healthcare Insurance Sales Agent Family [facility] 07/27/24 Professor Of Engineering Relationship Specialty Start Date End Date Miah Cottrell DO [address] [place] [address] PCP - General Family Medicine 11/05/15 Wily Abarca, PINSETTER MECHANIC AUTOMATIC.COMPLAINT EVALUATION OFFICER [address] [place] [address] Healthcare Insurance Sales Agent Family [facility] 07/27/24 Professor Of Engineering Relationship Specialty Start Date End Date Miah Cottrell DO [address] [place] [address] PCP - General Family Medicine 11/05/15 Wily Abarca, PINSETTER MECHANIC AUTOMATIC.COMPLAINT EVALUATION OFFICER [address] [place] [address] Healthcare Insurance Sales Agent Family [facility] 07/27/24 Professor Of Engineering Relationship Specialty Start Date End Date Miah Cottrell DO [address] [place] [address] PCP - General Family Medicine 11/05/15 Wily Abarca, PINSETTER MECHANIC AUTOMATIC.COMPLAINT EVALUATION OFFICER [address] [place] [address] Healthcare Insurance Sales Agent Family Medicine 07/27/24 Cammie Fuentes, PINSETTER MECHANIC AUTOMATIC.COMPLAINT EVALUATION OFFICER [address] [place] [address] Healthcare Insurance Sales Agent Family Medicine 02/02/25 Professor Of Engineering Relationship Specialty Start Date End Date Miah Cottrell DO [address] [place] [address] PCP - General Family Medicine 11/05/15 Wily Abarca, PINSETTER MECHANIC AUTOMATIC.COMPLAINT EVALUATION OFFICER [address] [place] [address] Healthcare Insurance Sales Agent Family Medicine 07/27/24 Cammie Fuentes, PINSETTER MECHANIC AUTOMATIC.COMPLAINT EVALUATION OFFICER [address] [place] [address] [facility] Family [facility] 02/02/25 Professor Of Engineering Relationship Specialty Start Date End Date Miah Cottrell DO [address] [place] [address] PCP - General Family Medicine 11/05/15 Wily Abarca, PINSETTER MECHANIC AUTOMATIC.COMPLAINT EVALUATION OFFICER [address] [place] [address] Healthcare Insurance Sales Agent Family Medicine 07/27/24 Cammie Fuentes, PINSETTER MECHANIC AUTOMATIC.COMPLAINT EVALUATION OFFICER [address] [place] [address] Healthcare Insurance Sales Agent Family Medicine 02/02/25 Professor Of Engineering Relationship Specialty Start Date End Date Miah Cottrell DO [address] [place] [address] PCP - General Family Medicine 11/05/15 Wily Abarca, PINSETTER MECHANIC AUTOMATIC.COMPLAINT EVALUATION OFFICER [address] [place] [address] [facility] 07/27/24 Cammie Fuentes, PINSETTER MECHANIC AUTOMATIC.COMPLAINT EVALUATION OFFICER [address] [place] [address] [facility] 02/02/25 Professor Of Engineering Relationship Specialty Start Date End Date Miah Cottrell DO [address] [facility] [place] [address] PCP - General Family Medicine 11/05/15 TevinWily, PINSETTER MECHANIC AUTOMATIC.COMPLAINT EVALUATION OFFICER [address] [place] [address] [facility] 07/27/24 Cammie Fuentes, PINSETTER MECHANIC AUTOMATIC.COMPLAINT EVALUATION OFFICER [address] [place] [address] [facility] 02/02/25 Professor Of Engineering Relationship Specialty Start Date End Date Miah Cottrell DO [address] [place] [address] PCP - General Family Medicine 11/05/15 TevinWily, PINSETTER MECHANIC AUTOMATIC.COMPLAINT EVALUATION OFFICER [address] [place] [address] [facility] 07/27/24 Cammie Fuentes, PINSETTER MECHANIC AUTOMATIC.COMPLAINT EVALUATION OFFICER [address] [facility] [place] [address] [facility] 02/02/25 Professor Of Engineering Relationship Specialty Start Date End Date Miah Cottrell DO [address] [facility] [place] [address] PCP - General Family Medicine 11/05/15 Wily Abarca, PINSETTER MECHANIC AUTOMATIC.COMPLAINT EVALUATION OFFICER [address] [place] [address] Healthcare Insurance Sales Agent Family Medicine 07/27/24 Cammie Fuentes, PINSETTER MECHANIC AUTOMATIC.COMPLAINT EVALUATION OFFICER [address] [place] [address] Healthcare Insurance Sales Agent Family Medicine 02/02/25 Professor Of Engineering Relationship Specialty Start Date End Date Miah Cottrell DO [address] [place] [address] PCP - General Family Medicine 11/05/15 TevinWily, PINSETTER MECHANIC AUTOMATIC.COMPLAINT EVALUATION OFFICER [address] [place] [address] Healthcare Insurance Sales Agent Family Medicine 07/27/24 Cammie Fuentes, PINSETTER MECHANIC AUTOMATIC.COMPLAINT EVALUATION OFFICER [address] [place] [address] Healthcare Insurance Sales Agent Family [facility] 02/02/25 Professor Of Engineering Relationship Specialty Start Date End Date Miah Cottrell DO [address] [place] [address] PCP - General Family Medicine 11/05/15 [facility] CenterWily, PINSETTER MECHANIC AUTOMATIC.COMPLAINT EVALUATION OFFICER [address] [place] [address] Healthcare Insurance Sales Agent Family Medicine 07/27/24 Cammie Fuentes, PINSETTER MECHANIC AUTOMATIC.COMPLAINT EVALUATION OFFICER [address] [place] [address] Healthcare Insurance Sales Agent Family Medicine 02/02/25 Professor Of Engineering Relationship Specialty Start Date End Date Miah Cottrell DO [address] [place] [address] PCP - General Family Medicine 11/05/15 Wily Abarca APRN.COMPLAINT EVALUATION OFFICER [address] [place] [address] Healthcare Insurance Sales Agent Family Medicine 07/27/24 Cammie Fuentes APRN.COMPLAINT EVALUATION OFFICER [address] [place] [address] Healthcare Insurance Sales Agent Family Medicine 02/02/25 Professor Of Engineering Relationship Specialty Start Date End Date Miah Cottrell DO [address] [place] [address] PCP - General Family Medicine 11/05/15 Wily Abarca, CARMINA.COMPLAINT EVALUATION OFFICER [address] [place] [address] Healthcare Insurance Sales Agent Family Medicine 07/27/24 Cammie Fuentes, CARMINA.COMPLAINT EVALUATION OFFICER [address] [place] [address] Healthcare Insurance Sales Agent Family Medicine 02/02/25 Professor Of Engineering Relationship Specialty Start Date End Date Miah Cottrell DO [address] [place] [address] PCP - General Family Medicine 11/05/15 Wily Abarca, CARMINA.COMPLAINT EVALUATION OFFICER [address] [place] [address] Healthcare Insurance Sales Agent Family Medicine 07/27/24 Cammie Fuentes APRN.COMPLAINT EVALUATION OFFICER [address] [place], [place] [id number] [facility] 02/02/25 Professor Of Engineering Relationship Specialty Start Date End Date Miah Cottrell DO [address] [place], [place] [address] PCP - General Family Medicine 11/05/15 Wily Abarca, PINSETTER MECHANIC AUTOMATIC.COMPLAINT EVALUATION OFFICER [address] [place] [address] [facility] 07/27/24 Cammie Fuentes, PINSETTER MECHANIC AUTOMATIC.COMPLAINT EVALUATION OFFICER [address] [place], [place] [address] [facility] 02/02/25 Team Status: Active Member Role/Relationship [...] CT ANGIOGRAPHY HEAD W/CONTRAST/NONCONTRAST Miah Cottrell, DO [address] [place] [address] Ct Imaging Referral ID Status Reason Start Date Expiration Date V isits Requested Visits Authorized [id number] Closed Auto-Generate d Referral 12/26/2021 01/25/2023 1 [...] PROVIDER ORDERED FOLLOW UP OFFICE/OUTPATIENT [facility] 60-74 MINUTES Marko Wood MD [address] [place] [address] Referral ID Status Reason Start Date Expiration Date V isits Requested Visits Authorized [id number] Closed PCP Requested Referral 02/01/2023 05/02/2023 1 [...] TISSUE HEAD & NECK REAL TIME IMGE Miah French, DO [address] [place] [address] [place] [address] Referral ID Status Reason Start Date Expiration Date V isits Requested Visits Authorized [id number] Closed Auto-Generate d Referral 03/12/2023 04/10/2024 1 1 Reason Comments Radiology US Reason Comments Airframe And Powerplant Technician - Other Specialty Diagnoses / Procedures Referred By Contac t Referred To Contact [facility] Diagnoses Osteoporosis, postmenopausal Palma Lovett, CARMINA.COMPLAINT EVALUATION OFFICER [address] [place] [id number] [facility] [address] [place] [address] Referral ID Status Reason Start Date Expiration Date V isits Requested Visits Authorized [id number] Closed Auto-Generate d Referral 07/16/2023 10/14/2023 1 [...] W/O CNTRST Miah Cottrell L, DO [address] [place] [address] Ct Imaging [place] [address] Referral ID Status Reason Start Date Expiration Date V isits Requested Visits Authorized [id number] Closed Auto-Generate d Referral 12/17/2023 01/15/2025 1 1 Reason Comments /p up for passed couple months of and on B/p up fo passed couple months, getting headaches Reason Comments Established Patient Specialty Diagnoses / Procedures Referred By Contact Referred To Contact [facility] [place] [address] [place] [address] [facility] [place] [address] Referral ID Status Reason Start Date Expiration Date V isits Requested Visits Authorized [id number] Closed Auto-Generate d Referral 01/28/2024 04/27/2024 1 [...] FOLLOW UP Marko Wood MD [address] [place] [address] Referral ID Status Reason Start Date Expiration Date V isits Requested Visits Authorized [id number] Closed PCP Requested Referral 04/19/2023 07/18/2023 1 1 Reason Onset Date Comments Refill Request 05/13/2024 Reason Comments Radio Gen RMP Specialty Diagnoses / Procedures Referred By Contac t Referred To Contact [facility] Diagnoses Neck pain Procedures XR CERV OTHER 4V AP/LAT/OBL RADEX SPINE CERVICAL 4 OR 5 VIEWS Palma Lovett, PINSETTER MECHANIC AUTOMATIC.COMPLAINT EVALUATION OFFICER [address] [place] [address] [place] [address] Referral ID Status Reason Start Date Expiration Date V isits Requested Visits Authorized [id number] Closed Auto-Generate d Referral 12/16/2021 01/15/2023 1 [...] CERVICAL 4 OR 5 VIEWS Palma Lovett, PINSETTER MECHANIC AUTOMATIC.COMPLAINT EVALUATION OFFICER [address] [place] [address] Phone: tel: fax: [place] [address] Referral ID Status Reason Start Date Expiration Date V isits Requested Visits Authorized [id number] Closed Auto-Generate d Referral 02/06/2025 03/08/2026 1 1 Reason Onset Date Comments SPP Inflammatory Conditions - Treatment Referral 02/11/2025 [employer] Insurance Authorization 02/11/2025 PA submi ssion pending Reason Comments Neck Pain New Patient Specialty Diagnoses / Procedures Referred By Contac t Referred To Contact [facility] Diagnoses Neck pain Procedures CONSULT TO [facility] OFFICE/OUTPATIENT [facility] 60 MINUTES Palma Lovett APRN.COMPLAINT EVALUATION OFFICER [address] [place] [address] Phone: tel: fax: Referral ID Status Reason Start Date Expiration Date V isits Requested Visits Authorized [id number] Closed PCP Requested Referral 02/06/2025 02/06/2026 1 1 Reason Onset Date Comments Refill Request 02/16/2025 Reason Comments Results Cervical MRI Reason Comments Airframe And Powerplant Technician - Other Reason Comments F/U 3 Month Specialty Diagnoses / Procedures Referred By Contac t Referred To Contact Diagnoses Essential tremor Procedures OFFICE/OUTPATIENT [facility] 60 MINUTES Marko Wood MD [facility] [address] [address] Phone: tel: fax: Referral ID Status Reason Start Date Expiration Date V isits Requested Visits Authorized [id number] Closed PCP Requested Referral 2024 07/13/2024 1 [...] mL IVPB (premix) (COMPLETED) 2,000 mg, IntraVENous, CIRCULAR SAW EDGE FUSER TO O.R., 1 dose, On Shelli 03/23/22 at 0730, Antimicrobial Indications: Surgical Prophylaxis, Administer within 1 hour prior to incision. Recommend to repeat in 3-4 hours after initial dose if still intra-op., Pre-op (day of surgery) 1009 (Given by Other Clinician - Provider: Charmaine Juarez, REINALDO)1039 (Stopped - Provider: Charmaine Juarez RN) famotidine [...] MIN PRN, 4 doses, Starting on Shelli 8 at 1137, Until Discontinued, Shivering, , May [...] BE BASED ON THE PRIMARY CLINICAL RECORDS. [facility]. provides no warranty or guarantee of the accuracy or completeness of information in this document.
[2025-07-21 21:32] VITALS: BMI 21.8
[2025-07-21 21:38] VITALS: BP 143/57; PULSE 57; RESP 17; TEMP 36.7; O2SAT 97
[2025-07-21] MEDS: 0.9% Normal Saline (1000mL) 1,000 ML 100 ML IV (21:53)
[2025-07-21] MEDS: Potassium Chloride Oral Tablet 20 MEQ 40 MEQ PO (21:53)
[2025-07-21 21:59] VITALS: BMI 21.8
[2025-07-21 22:06] LABS: Magnesium 2.0 mg/dL (1.5-2.2)
[2025-07-21] MEDS: Piperacil/Tazobactam 4.5 GM in 0.9% Normal Saline (100mL MB+) 100 ML IV (22:13)
[2025-07-21] MEDS: Pantoprazole Sodium 40 MG in 0.9% Normal Saline (100mL MB+) 100 ML 330 MG IV (22:49)
[2025-07-22 06:48] LABS: Hematocrit 33.5 % (37-47); Hemoglobin 10.9 g/dL (12.0-15.0); Immature Granulocytes Count 0.040 X10^3/uL (0.0-0.0); Mean Corp Hgb Conc 32.5 g/dL (32-36); Mean Corpuscular Volume 96.8 fL (81-99); Mean Platelet Vol. 9.9 fl (6.2-12.0); NRBC Flagged by Analyzer 0 % (0-5); Platelet Count 252 K/mm3 (150-450); RBC Distribution Width CV 12.8 % (11.6-14.6); RBC Distribution Width SD 45.1 fl (35.1-43.9); Red Blood Count 3.46 M/mm3 (4.2-5.4); White Blood Count 10.7 K/mm3 (4.4-11.0)
[2025-07-22 07:23] LABS: AST(SGOT) 23 U/L (<=31); Alanine Aminotransfer ALT/SGPT 15 U/L (<=34); Albumin, Serum 3.2 g/dL (3.4-4.8); Alkaline Phosphatase 65 U/L (35-104); Anion Gap 8 (5-15); BUN 13 mg/dL (4-19); BUN/Creat Ratio 23.1 RATIO (10-20); Calcium,Total 7.9 mg/dL (7.6-11.0); Carbon Dioxide 26.7 mmol/L (21.0-32.0); Chloride 108 mmol/L (98-108); Estimated Creatinine Clearance 54.67 ml/min (50-250); Globulin 2.7 g/dL (2.2-4.2); Glucose 79 mg/dL (70-99); Potassium 3.3 mmol/L (3.3-5.1)
[2025-07-22] MEDS: 0.9% Normal Saline (1000mL) 1,000 ML 100 ML IV (07:25)
[2025-07-22] MEDS: Piperacil/Tazobactam 3.375 GM in 0.9% Normal Saline (50mL MB+) 50 ML IV (07:25)
[2025-07-22 07:32] VITALS: BP 139/55; PULSE 59; RESP 16; TEMP 36.2; O2SAT 94
[2025-07-22 09:40] VITALS: BP 155/53; PULSE 60; RESP 17; TEMP 36.3; O2SAT 94
[2025-07-22] MEDS: FLU VACCINE HIGH DOSE 25-26(65YR UP) 180 MCG/0.5 ML SYRINGE IM (09:43)
[2025-07-22 09:44] VITALS: BP 155/53; PULSE 60
[2025-07-22] MEDS: Metoprolol(XL)Succ 25 MG Tablet PO (09:44)
[2025-07-22] MEDS: Vancomycin 125 MG/5 ML Susp PO.SYRINGE PO ×2 (11:19→17:43)
[2025-07-22] MEDS: Pantoprazole Sodium 40 MG in 0.9% Normal Saline (100mL MB+) 100 ML 330 MG IV ×2 (11:19→21:01)
--- NOTE | 2025-07-22 13:36 | CASEMGMT ---
SW Assessment: Face to Face with pt for initial transition planning/care coordination assessment. SW introduced self and role at [facility], pt voices understanding and consents to assessment. Pt is A&O x4 and answers all questions appropriately at this time. Care providers, pharmacy, and demographics verified/updated. PCP:[facility] Specialists: Anahi- hazardous waste management specialist, Papo- rheumatology, neurology (could not recall name) Preferred [facility]acy: [facility] Insurance: [facility] Prescription Benefit: yes LNOK: Step dtr Living Arrangements: Pt lives with friend Navneet in a mobile home with 4 steps to enter. Pt reports that she is independent with all ADL and IADL. Pt receives HEAP, reports no other concerns. Transportation: Pt drives self and denies concerns with transportation. DME: None HHC/SNF: None Pt states no concerns with going home at time of dc. Pt states no further concerns/needs. SW to follow. Advised pt to ask SW if any further questions/concerns/needs arise, voices understanding. Pt Goal: home, no needs Plan: home, no needs [facility] [place]
--- NOTE | 2025-07-22 14:22 | PN.HOSP_ITS ---
Reason for Visit Chief Complaint: Mucous-bloody stools, LLQ pain. Subjective Subjective Patient with ongoing abdominal pain and bloody diarrhea. Her hemoglobin has dropped but stability is unclear as she has had IV fluids as well. Patient is having fairly profuse diarrhea. C. difficile toxin was negative but PCR was positive. Given her clinical status I suspect that she may have C. difficile infection based on her recent antibiotic usage and her immunosuppression which is chronic related to her PMR from her steroid use. Patient states they have tried to wean her off steroids and this has not been successful related to her polymyalgia rheumatica. Objective Data Objective Data Vital Signs: Vital Signs Temp Pulse Resp BP Pulse Ox O2 Del Method 97.3 F L 60 17 155/53 H 94 Room Air 07/22/25 09:40 07/22/25 09:44 07/22/25 09:40 07/22/25 09:44 07/22/25 09:40 07/22/25 10:00 Oxygen Delivery Method Room Air Weight: 59.6 kg Body Mass Index (BMI) 21.8 Intake & Output: Intake and Output for Last 24 Hours 07/20/25 07/21/25 07/22/25 23:59 23:59 23:59 Intake Total 200 / 200 1484.58 / 1484.58 Balance 200 / 200 1484.58 / 1484.58 Lab / Micro Data 07/22/25 06:40 07/22/25 06:40 Labs: Laboratory Results - last 24 hr 07/21/25 17:50: WBC 13.2 H, RBC 4.10 L, Hgb 13.1, Hct 39.2, MCV 95.6, MCH 32.0, MCHC 33.4, RDW Std Deviation 45.7 H, RDW Coeff of Lizandro 13.0, Plt Count 309, MPV 10.3, Immature Gran % (Auto) 0.400, Neut % (Auto) 74.3 H, Lymph % (Auto) 18.0 L, [place] % (Auto) 6.9, Eos % (Auto) 0.1, Baso % (Auto) 0.3, Absolute Neuts (auto) 9.8 H, Absolute Lymphs (auto) 2.37, Nucleated RBC % 0, Sodium 144, Potassium 3.1 L, Chloride 104, Carbon Dioxide 27.6, Anion Gap 13, BUN 13, Creatinine 0.65 L, Estim Creat Clear Calc 54.67, Est GFR (MDRD) Non-Af 92, BUN/Creatinine Ratio 20.0, Glucose 126 H, Calcium 8.9, Phosphorus 3.0, Magnesium 2.0, Total Bilirubin 0.17, Direct Bilirubin < 0.08, AST 23, ALT 13, Alkaline Phosphatase 95, Total Protein 7.1, Albumin 3.9, Globulin 3.2, Urine Color Yellow, Urine Clarity Clear, Urine pH 5.0, Ur Specific [place] 1.020, Urine Protein 30 H, Urine Glucose (UA) 50 H, Urine Ketones Negative, Urine Occult Blood 250 H, Urine Nitrite Negative, Urine Bilirubin Negative, Urine Urobilinogen Normal, Ur Leukocyte Esterase 25 H, Urine RBC 0-5 SEEN, Urine WBC 0 SEEN, Ur Squamous Epith Cells 0-5 SEEN, Urine Bacteria 0 SEEN, Urine Mucus 0 SEEN 07/22/25 06:40: WBC 10.7, RBC 3.46 L, Hgb 10.9 L, Hct 33.5 L, MCV 96.8, MCH 31.5, MCHC 32.5, RDW Std Deviation 45.1 H, RDW Coeff of Lizandro 12.8, Plt Count 252, MPV 9.9, Immature Gran % (Auto) 0.400, Neut % (Auto) 52.9, Lymph % (Auto) 37.6, Barnes % (Auto) 7.9, Eos % (Auto) 0.7, Baso % (Auto) 0.5, Absolute Neuts (auto) 5.7, Absolute Lymphs (auto) 4.01, Nucleated RBC % 0, Sodium 143, Potassium 3.3, Chloride 108, Carbon Dioxide 26.7, Anion Gap 8, BUN 13, Creatinine 0.54 L, Estim Creat Clear Calc 54.67, Est GFR (MDRD) Non-Af 96, BUN/Creatinine Ratio 23.1 H, Glucose 79, Calcium 7.9, Total Bilirubin 0.20, AST 23, ALT 15, Alkaline Phosphatase 65, Total Protein 5.8 L, Albumin 3.2 L, Globulin 2.7, Albumin/Globulin Ratio 1.2 Micro: Microbiology 07/21/25 23:30 Stool Enteric Bacteriology - Final 07/21/25 23:30 Stool C. difficile GDH Antigen & Toxins - Final 07/21/25 23:30 Stool Clostridioides difficile (PCR) - Final Radiography Diagnostic Testing: Radiology Impression Abdomen/Pelvis CT 07/21/25 18:18 IMPRESSION: 1. Extensive sigmoid diverticulosis with possible developing sigmoiditis. 2. Stable mild compression deformity of L3. Reading Location: [facility] Physical Exam Const alert, oriented x3, no apparent distress, average body habitus and well nourished; Negative for healthy appearing Constitutional Narrative: Older, white female, lying in bed, appears slightly older than stated age, currently looks comfortable, nontoxic appearing HEENT head/scalp atraumatic and moist oral mucous membranes HEENT Narrative: No thrush, Mallampati 2 Head and Scalp: normocephalic Eyes conjunctivae normal Eyes Narrative: No scleral icterus Neck supple Neck Narrative: Trachea midline Resp normal respiratory effort, no retractions, no use of accessory muscles and clear to auscultation bilaterally Resp Narrative: Diffusely diminished Auscultation: Negative for crackles, rhonchi or wheezes Cardio regular rate, regular rhythm, S1 normal heart sound, S2 normal heart sound, no murmurs, no rub and no gallops GI soft to palpation GI Narrative: Tenderness most notably left lower quadrant, bowel sounds are hyperactive, no distention, abdomen is soft Extremity no clubbing, cyanosis or edema Extremity Narrative: 2+ pedal and radial pulses Skin no jaundice, no petechiae and no mottling Neuro moves all extremities and no focal motor deficits Speech: speech normal Psych affect normal Psych Narrative: Pleasant, eye contact is good and patient interacts appropriately Assessment & Plan Assessment/Plan (1) Sigmoiditis: (2) C. difficile colitis: (3) Acute anemia: PLAN: Plan Abdominal pain and rectal bleeding secondary to sigmoiditis with suspected C. difficile colitis - Patient with recent antibiotic usage for diverticulitis - CT of the abdomen pelvis showed no diverticulitis but did show sigmoiditis next-patient does have extensive diverticular disease but distinctly said she had no diverticulitis and only diverticulosis at this time - Still with profuse watery diarrhea that is intermittently bloody - C. difficile PCR is positive but toxin negative-patient states she has never had C. difficile previously I suspect in this case given her clinical exam that she probably has early C. difficile with toxin levels too low to detect - Start vancomycin 125 mg every 6 hours - Discontinue IV antibiotics - Monitor clinically if no improvement will need GI consultation - Okay for diet as long as tolerates Acute anemia-suspect acute blood loss - Patient is having noted bleeding likely related to the above - Monitor hemoglobin closely - Hopefully will slow his treatment is pursued - If hemoglobin drops further may need GI involvement - Check iron studies - No current need for transfusion - Repeat hemoglobin this afternoon for reassessment - Patient is not anemic at baseline Hypokalemia - Resolved History of PMR/giant cell arteritis - Continue prednisone - Patient states they have tried to wean her several times and not been successful so far GERD - Continue IV PPI History of chronic essential tremors - Continue primidone and low-dose metoprolol - Can history of uterine cancer - In remission next-ongoing outpatient follow-up as recommended Glaucoma - Continue home eyedrops Osteoporosis - On Prolia as an outpatient History of PCOS - No current issues DVT prophylaxis - SCDs for now given bloody mucus stools CODE STATUS - Full code Charges/Coding Visit Charges Inpatient E&M: 66909 Subs Hosp L3
[2025-07-22 14:33] VITALS: BP 126/59; PULSE 64; RESP 17; TEMP 36.6; O2SAT 97
[2025-07-22 15:50] LABS: Hemoglobin 11.4 g/dL (12.0-15.0)
[2025-07-22 16:06] LABS: Ferritin 216 ng/mL (22-378); Iron 56 ug/dL (50-170); Iron Binding Capacity,Unsat 132 ug/dL (228-428)
[2025-07-22 17:58] LABS: Iron Binding Capacity,Total 188 ug/dL (250-450)
[2025-07-22 20:15] VITALS: O2SAT 98
[2025-07-22 20:52] VITALS: BP 149/67; PULSE 85; RESP 15; TEMP 37.1; O2SAT 95
[2025-07-23] MEDS: Vancomycin 125 MG/5 ML Susp PO.SYRINGE PO ×4 (01:43→17:32)
[2025-07-23 05:48] VITALS: BMI 21.8
[2025-07-23 06:37] VITALS: BP 136/63; PULSE 64; RESP 15; TEMP 36.9; O2SAT 95
[2025-07-23 06:44] LABS: Hematocrit 36.1 % (37-47); Hemoglobin 11.4 g/dL (12.0-15.0); Immature Granulocytes Count 0.080 X10^3/uL (0.0-0.0); Mean Corp Hgb Conc 31.6 g/dL (32-36); Mean Corpuscular Volume 98.6 fL (81-99); Mean Platelet Vol. 10.2 fl (6.2-12.0); NRBC Flagged by Analyzer 0 % (0-5); Platelet Count 241 K/mm3 (150-450); RBC Distribution Width CV 12.8 % (11.6-14.6); RBC Distribution Width SD 46.1 fl (35.1-43.9); Red Blood Count 3.66 M/mm3 (4.2-5.4); White Blood Count 14.1 K/mm3 (4.4-11.0)
[2025-07-23 07:07] LABS: AST(SGOT) 26 U/L (<=31); Alanine Aminotransfer ALT/SGPT 20 U/L (<=34); Albumin, Serum 3.3 g/dL (3.4-4.8); Alkaline Phosphatase 73 U/L (35-104); Anion Gap 11 (5-15); BUN 8 mg/dL (4-19); BUN/Creat Ratio 16.0 RATIO (10-20); Calcium,Total 8.0 mg/dL (7.6-11.0); Carbon Dioxide 24.3 mmol/L (21.0-32.0); Chloride 106 mmol/L (98-108); Estimated Creatinine Clearance 54.67 ml/min (50-250); Globulin 2.6 g/dL (2.2-4.2); Glucose 81 mg/dL (70-99); Magnesium 2.0 mg/dL (1.5-2.2); Potassium 3.0 mmol/L (3.3-5.1)
--- NOTE | 2025-07-23 07:37 | PCM.PN.HOSP ---
Reason for Visit Chief Complaint: Mucous-bloody stools, LLQ pain. Subjective Subjective Patient states she is only improved about 10%. Still having bloody mucousy stool. Hemoglobin stable. Pain is typically in the suprapubic area and left lower quadrant. Diarrhea has not slowed much with the initiation of oral vancomycin. Objective Data Objective Data Vital Signs: Vital Signs Temp Pulse Resp BP Pulse Ox O2 Del Method 98.4 F 64 15 136/63 H 95 Room Air 07/23/25 06:37 07/23/25 06:37 07/23/25 06:37 07/23/25 06:37 07/23/25 06:37 07/23/25 06:37 Oxygen Delivery Method Room Air Weight: 59.6 kg Body Mass Index (BMI) 21.8 Intake & Output: Intake and Output for Last 24 Hours 07/21/25 07/22/25 07/23/25 23:59 23:59 23:59 Intake Total 200 / 200 2194.58 / 2194.58 Balance 200 / 200 2194.58 / 2194.58 Lab / Micro Data 07/23/25 06:15 07/23/25 06:15 Labs: Laboratory Results - last 24 hr 07/22/25 15:21: Hgb 11.4 L, Iron 56, TIBC 188 L, Iron Saturation 29.8, Unsaturated IBC 132 L, Ferritin 216 07/23/25 06:15: WBC 14.1 H, RBC 3.66 L, Hgb 11.4 L, Hct 36.1 L, MCV 98.6, MCH 31.1, MCHC 31.6 L, RDW Std Deviation 46.1 H, RDW Coeff of Lizandro 12.8, Plt Count 241, MPV 10.2, Immature Gran % (Auto) 0.600, Neut % (Auto) 75.3 H, Lymph % (Auto) 14.7 L, [place] % (Auto) 8.3, Eos % (Auto) 0.6, Baso % (Auto) 0.5, Absolute Neuts (auto) 10.6 H, Absolute Lymphs (auto) 2.06, Nucleated RBC % 0, Sodium 141, Potassium 3.0 L, Chloride 106, Carbon Dioxide 24.3, Anion Gap 11, BUN 8, Creatinine 0.49 L, Estim Creat Clear Calc 54.67, Est GFR (MDRD) Non-Af 98, BUN/Creatinine Ratio 16.0, Glucose 81, Calcium 8.0, Phosphorus 2.5 L, Magnesium 2.0, Total Bilirubin 0.28, AST 26, ALT 20, Alkaline Phosphatase 73, Total Protein 5.8 L, Albumin 3.3 L, Globulin 2.6, Albumin/Globulin Ratio 1.3 Micro: Microbiology 07/21/25 23:30 Stool Enteric Bacteriology - Final 07/21/25 23:30 Stool C. difficile GDH Antigen & Toxins - Final 07/21/25 23:30 Stool Clostridioides difficile (PCR) - Final Physical Exam Const alert, oriented x3, no apparent distress, average body habitus and well nourished; Negative for healthy appearing Constitutional Narrative: Older, white female, lying in bed, appears slightly older than stated age, currently looks comfortable, nontoxic appearing, nursing at bedside HEENT head/scalp atraumatic and moist oral mucous membranes HEENT Narrative: Dentures in place Resp normal respiratory effort, no retractions, no use of accessory muscles and clear to auscultation bilaterally Resp Narrative: Diffusely diminished Auscultation: Negative for crackles, rhonchi or wheezes Cardio regular rate, regular rhythm, S1 normal heart sound, S2 normal heart sound, no murmurs, no rub and no gallops GI soft to palpation GI Narrative: Tenderness most notably left lower quadrant and suprapubic region, bowel sounds remain hyperactive, no distention, abdomen is soft Extremity no clubbing, cyanosis or edema Extremity Narrative: 2+ pedal and radial pulses Neuro moves all extremities and no focal motor deficits Speech: speech normal Psych affect normal Psych Narrative: Pleasant, eye contact is good and patient interacts appropriately Assessment & Plan Assessment/Plan (1) Sigmoiditis: (2) C. difficile colitis: (3) Acute anemia: PLAN: Plan Abdominal pain and rectal bleeding secondary to sigmoiditis with suspected C. difficile colitis - Patient with recent antibiotic usage for diverticulitis - I would suspect the patient should be improving in condition with 24 hours of oral vancomycin it does not appear that she is at this time -White count has trended back up - Check sed rate CRP - Check oral and IV contrasted CT of the abdomen pelvis - Depending on results of CT of the abdomen pelvis potential transition back to IV antibiotics and GI consultation - Will continue oral vancomycin for now - CT of the abdomen/pelvis on admission showed no diverticulitis but did show sigmoiditis -patient does have extensive diverticular disease but distinctly said she had no diverticulitis and only diverticulosis at this time - Still with profuse watery diarrhea that is intermittently bloody - C. difficile PCR is positive but toxin negative-patient states she has never had C. difficile previously I suspect in this case given her clinical exam that she probably has early C. difficile with toxin levels too low to detect Acute anemia-suspect acute blood loss - Patient is having noted bleeding likely related to the above - Monitor hemoglobin closely - Hopefully will slow his treatment is pursued - Hemoglobin has been stable in the last 24 hours - Iron studies are not consistent with iron deficiency - No current need for transfusion Hypokalemia/hypophosphatemia - Patient now hypokalemic again - Will replace and recheck in a.m. History of PMR/giant cell arteritis - Continue prednisone - Patient states they have tried to wean her several times and not been successful so far GERD - Continue IV PPI History of chronic essential tremors - Continue primidone and low-dose metoprolol - Can history of uterine cancer - In remission next-ongoing outpatient follow-up as recommended Glaucoma - Continue home eyedrops Osteoporosis - On Prolia as an outpatient History of PCOS - No current issues DVT prophylaxis - SCDs for now given bloody mucus stools CODE STATUS - Full code Charges/Coding Visit Charges Inpatient E&M: 88562 Subs Hosp L2
[2025-07-23] MEDS: Pantoprazole Sodium 40 MG in 0.9% Normal Saline (100mL MB+) 100 ML 330 MG IV ×2 (08:20→21:12)
[2025-07-23 08:23] VITALS: PULSE 64
[2025-07-23] MEDS: 0.9% Saline Lock 10 ML Syringe IV (08:23)
[2025-07-23] MEDS: Metoprolol(XL)Succ 25 MG Tablet PO (08:23)
[2025-07-23 08:31] VITALS: BP 115/45; PULSE 64; RESP 16; TEMP 36.8; O2SAT 97
[2025-07-23 09:25] LABS: CRP 15.70 mg/L (0.0-3.0)
[2025-07-23] MEDS: Potassium Phosphate 45 MM in 0.9% Normal Saline (500mL Bag) 500 ML 85 MM IV (09:35)
--- NOTE | 2025-07-23 11:38 | CT_ITS ---
PROCEDURE: ABDOMEN/PELVIS WITH CONTRAST 07/23/2025 REASON FOR EXAM: SIGMOIDITIS TECHNIQUE: Procedure Code: [id number] Modality: CT Procedure: ABDOMEN/PELVIS WITH CONTRAST Coronal and Sagittal reconstruction series were provided. CONTRAST: Isovue 370 VOLUME: 75 mL One or more dose reduction techniques were used (e.g., Automated exposure control, adjustment of the mA and/or kV according to patient size, use of iterative reconstruction technique. RADIATION DOSE SUMMARY: CTDlvol: 10.26 mGy DLP: 499.40 mGycm COMPARISON: CT abdomen and pelvis 07/21/2025. FINDINGS: Lung bases: Clear Liver: Unremarkable Gallbladder: Cholecystectomy. No biliary dilation. Spleen: Unremarkable. Pancreas: Unremarkable. Adrenals: Unremarkable. Kidneys: Unremarkable. Bladder: Unremarkable. Reproductive Organs: Unremarkable. Bowel: Extensive colonic diverticulosis and diffuse edematous wall thickening of the sigmoid consistent with acute diverticulitis, slightly worsened. Appendix: Normal. Lymph nodes: No lymphadenopathy. Vasculature: Atherosclerotic calcifications. No aneurysm. Peritoneum / Retroperitoneum: No free air or free fluid. Bones: No acute bony elements. CT/Abdomen/Pelvis WITH Contrast IMPRESSION: Mildly worsened sigmoid acute diverticulitis without fluid collection or perfor ation. Reading Location: [facility]
[2025-07-23 12:12] VITALS: BP 124/71; PULSE 60; RESP 16; TEMP 36.5; O2SAT 95
[2025-07-23 15:54] VITALS: BP 148/74; PULSE 65; RESP 16; TEMP 36.6; O2SAT 98
--- NOTE | 2025-07-23 16:09 | CHAPLAIN ---
Type of Pastoral Visit _x__ Initial Visit ___ Follow-up Visit ___ On-call Visit ___ General Patient Visit ___ Spiritual Assessment ___ Family Conference ___ Bereavement ___ Rapid Response ___ Code Blue ___ Other (describe below) Pastoral Care Referral From _x__ Patient ___ Family ___ Nurse ___ Physician ___ Employer Relations Representative ___ Gas Scrubber Operator ___ Other (describe below) Sacrament/Intervention _x__ Active listening ___ Anointing ___ Congregational ___ Bereavement ___ Communion _x__ Maura exploration ___ _x__ Life review _x__ Prayer ___ Reconciliation ___ Sacrament of Sick _x__ Supportive presence ___ Wedding ___ Other (describe below) Pastoral Comments patient expressing anxious feelings to get results from her several tests and to have more improvement; pt gives some life review; friends and SO come into room to also give support; prayer given
--- NOTE | 2025-07-23 18:28 | PCM.HOSP.N ---
Hospitalist Note Repeat CT done today shows acute sigmoid diverticulitis without fluid collection or perforation. Last CT done on admission 07/21/2025 showed acute sigmoiditis and sigmoid diverticulosis. Will discontinue p.o. Vanco and transition to Zosyn IV.
[2025-07-23 21:04] VITALS: BP 140/64; PULSE 64; RESP 18; TEMP 37.1; O2SAT 94
[2025-07-23] MEDS: Latanoprost 0.005% 1 Bottle 1 DRP OPHTHALMIC (22:19)
[2025-07-23] MEDS: Piperacil/Tazobactam 3.375 GM in 0.9% Normal Saline (50mL MB+) 50 ML IV (22:20)
[2025-07-24 05:11] VITALS: BMI 22.0
[2025-07-24] MEDS: Piperacil/Tazobactam 3.375 GM in 0.9% Normal Saline (50mL MB+) 50 ML IV ×3 (05:31→23:15)
[2025-07-24 05:32] VITALS: BP 136/46; PULSE 63; RESP 18; TEMP 36.8; O2SAT 96
--- NOTE | 2025-07-24 07:05 | PCM.PN.HOSP ---
Reason for Visit Chief Complaint: Mucous-bloody stools, LLQ pain. Subjective Subjective Patient states pain is a bit better as it is diarrhea but still having symptoms. This is recurrent diverticulitis for her however her most severe episode. Objective Data Objective Data Vital Signs: Vital Signs Temp Pulse Resp BP Pulse Ox O2 Del Method 98.3 F 63 18 136/46 H 96 Room Air 07/24/25 05:32 07/24/25 05:32 07/24/25 05:32 07/24/25 05:32 07/24/25 05:32 07/24/25 05:32 Oxygen Delivery Method Room Air Weight: 60 kg Body Mass Index (BMI) 22.0 Intake & Output: Intake and Output for Last 24 Hours 07/22/25 07/23/25 07/24/25 23:59 23:59 23:59 Intake Total 2194.58 / 2194.58 1415.00 / 1415.00 950 / 950 Balance 2194.58 / 2194.58 1415.00 / 1415.00 950 / 950 Lab / Micro Data 07/24/25 07:00 07/24/25 07:00 Labs: Laboratory Results - last 24 hr 07/23/25 06:15: ESR 17, Sodium 141, Potassium 3.0 L, Chloride 106, Carbon Dioxide 24.3, Anion Gap 11, BUN 8, Creatinine 0.49 L, Estim Creat Clear Calc 54.67, Est GFR (MDRD) Non-Af 98, BUN/Creatinine Ratio 16.0, Glucose 81, Calcium 8.0, Phosphorus 2.5 L, Magnesium 2.0, Total Bilirubin 0.28, AST 26, ALT 20, Alkaline Phosphatase 73, C-React Prot Ext Range 15.70 H, Total Protein 5.8 L, Albumin 3.3 L, Globulin 2.6, Albumin/Globulin Ratio 1.3 Micro: Microbiology 07/21/25 23:30 Stool Enteric Bacteriology - Final 07/21/25 23:30 Stool C. difficile GDH Antigen & Toxins - Final 07/21/25 23:30 Stool Clostridioides difficile (PCR) - Final Radiography Diagnostic Testing: Radiology Impression Abdomen/Pelvis CT 07/23/25 11:38 IMPRESSION: Mildly worsened sigmoid acute diverticulitis without fluid collection or perforation. Reading Location: [facility] Physical Exam Narrative Physical Examination: General: Awake, alert, oriented x 3 and cooperative, seated upright in bed, fatigued, no acute distress Skin: Normal color, normal turgor, no icterus, no cyanosis except occasional stage ecchymoses, abrasion. HEENT: AT/NC, EOMI, PERRLA, moderately dry MM, no carotid bruits or JVD noted. Lungs: Mildly diminished, greater bases, proper effort, no rales, ronchi or wheezing. Heart: Regular rate and rhythm; no gallop, rub audible. Abdomen: Soft, notable left lower quadrant tenderness to palpation with voluntary guarding, no marked distention evident, mildly hyperactive BS, no appreciated HSM. Extremities: No cyanosis, clubbing, or edema. Neurological: Patient awake, alert, oriented as noted, cognitive function intact; pupils equally reactive to light and accommodation, cranial nerves grossly normal, moving all 4 extremities, no focal deficits, strength moderately globally decreased secondary to acute presentation complaints. Psychiatric: Affect appears mildly flat otherwise normal, no acute evidence of depressive or anxiety feelings. Const alert, oriented x3, no apparent distress, average body habitus and well nourished; Negative for healthy appearing Constitutional Narrative: Older, white female, lying in bed, appears slightly older than stated age, currently looks comfortable, nontoxic appearing, nursing at bedside HEENT head/scalp atraumatic and moist oral mucous membranes Eyes conjunctivae normal Eyes Narrative: No scleral icterus Neck supple Neck Narrative: Trachea midline Resp normal respiratory effort, no retractions, no use of accessory muscles and clear to auscultation bilaterally Resp Narrative: Diffusely diminished Auscultation: Negative for crackles, rhonchi or wheezes Cardio regular rate, regular rhythm, S1 normal heart sound, S2 normal heart sound, no murmurs, no rub and no gallops GI soft to palpation GI Narrative: Tenderness most notably left lower quadrant and suprapubic region, bowel sounds remain hyperactive, no distention, abdomen is soft Extremity no clubbing, cyanosis or edema Extremity Narrative: 2+ pedal and radial pulses Skin no jaundice, no petechiae and no mottling Neuro moves all extremities and no focal motor deficits Speech: speech normal Psych affect normal Psych Narrative: Pleasant, eye contact is good and patient interacts appropriately Assessment & Plan Assessment/Plan (1) Diverticulitis of sigmoid colon: (2) Acute anemia: PLAN: Plan Acute sigmoid colon diverticulitis - Follow-up CT scan did confirm diverticulitis however it was not reported on the initial CAT scan here and only reported his sigmoiditis. Suspect C. difficile PCR was a red long. - Vancomycin discontinued - Continue Zosyn started last evening - White count is normalized - Anticipate patient to slowly improve - No acute colonoscopy at this time as she would be at high risk for perforation with acute inflammation but will refer back to Dr. Hagen after discharge for colonoscopy. - Given the fact that this is recurrent disease she may need to be considered for bowel resection will need to her primary GI for referral if needed Acute anemia-suspect acute blood loss - Patient is having noted bleeding likely related to the above - Hemoglobin remains extremely stable - Continue to monitor Hypokalemia/hypophosphatemia - Resolved History of PMR/giant cell arteritis - Continue prednisone - Patient states they have tried to wean her several times and not been successful so far GERD - Continue IV PPI History of chronic essential tremors - Continue primidone and low-dose metoprolol History of uterine cancer - In remission - ongoing outpatient follow-up as recommended Glaucoma - Continue home eyedrops Osteoporosis - On Prolia as an outpatient Tobacco abuse - Recommend cessation History of PCOS - No current issues DVT prophylaxis - SCDs for now given bloody mucus stools CODE STATUS - Full code Charges/Coding Visit Charges Inpatient E&M: 84018 Subs Hosp L2
[2025-07-24 07:22] LABS: Hematocrit 34.4 % (37-47); Hemoglobin 11.6 g/dL (12.0-15.0); Immature Granulocytes Count 0.030 X10^3/uL (0.0-0.0); Mean Corp Hgb Conc 33.7 g/dL (32-36); Mean Corpuscular Volume 95.3 fL (81-99); Mean Platelet Vol. 9.8 fl (6.2-12.0); NRBC Flagged by Analyzer 0 % (0-5); Platelet Count 244 K/mm3 (150-450); RBC Distribution Width CV 12.7 % (11.6-14.6); RBC Distribution Width SD 44.5 fl (35.1-43.9); Red Blood Count 3.61 M/mm3 (4.2-5.4); White Blood Count 10.4 K/mm3 (4.4-11.0)
[2025-07-24 07:30] VITALS: PULSE 62
[2025-07-24] MEDS: Metoprolol(XL)Succ 25 MG Tablet PO (07:30)
[2025-07-24 08:14] LABS: Anion Gap 10 (5-15); BUN 7 mg/dL (4-19); BUN/Creat Ratio 10.6 RATIO (10-20); Calcium,Total 8.0 mg/dL (7.6-11.0); Carbon Dioxide 26.0 mmol/L (21.0-32.0); Chloride 106 mmol/L (98-108); Estimated Creatinine Clearance 54.67 ml/min (50-250); Glucose 80 mg/dL (70-99); Potassium 3.4 mmol/L (3.3-5.1)
[2025-07-24 08:38] VITALS: BP 130/48; PULSE 62; RESP 16; TEMP 36.9; O2SAT 98
[2025-07-24] MEDS: Pantoprazole Sodium 40 MG in 0.9% Normal Saline (100mL MB+) 100 ML 330 MG IV ×2 (09:43→22:35)
[2025-07-24 11:52] VITALS: BP 120/57; PULSE 65; RESP 16; TEMP 36.5; O2SAT 95
[2025-07-24 16:00] VITALS: BP 156/67; PULSE 61; RESP 16; TEMP 36.4; O2SAT 99
[2025-07-24] MEDS: Latanoprost 0.005% 1 Bottle 1 DRP OPHTHALMIC (22:39)
[2025-07-24 22:40] VITALS: BP 149/59; PULSE 62; RESP 18; TEMP 36.7; O2SAT 97
[2025-07-25 05:22] VITALS: BP 141/60; PULSE 57; RESP 16; TEMP 36.7; O2SAT 94
[2025-07-25] MEDS: Piperacil/Tazobactam 3.375 GM in 0.9% Normal Saline (50mL MB+) 50 ML IV (05:26)
[2025-07-25 05:36] LABS: Hematocrit 33.9 % (37-47); Hemoglobin 11.1 g/dL (12.0-15.0); Immature Granulocytes Count 0.030 X10^3/uL (0.0-0.0); Mean Corp Hgb Conc 32.7 g/dL (32-36); Mean Corpuscular Volume 95.8 fL (81-99); Mean Platelet Vol. 9.8 fl (6.2-12.0); NRBC Flagged by Analyzer 0 % (0-5); Platelet Count 240 K/mm3 (150-450); RBC Distribution Width CV 12.7 % (11.6-14.6); RBC Distribution Width SD 44.7 fl (35.1-43.9); Red Blood Count 3.54 M/mm3 (4.2-5.4); White Blood Count 9.0 K/mm3 (4.4-11.0)
[2025-07-25 05:58] LABS: Anion Gap 9 (5-15); BUN 8 mg/dL (4-19); BUN/Creat Ratio 13.9 RATIO (10-20); Calcium,Total 7.9 mg/dL (7.6-11.0); Carbon Dioxide 23.9 mmol/L (21.0-32.0); Chloride 107 mmol/L (98-108); Estimated Creatinine Clearance 54.67 ml/min (50-250); Glucose 82 mg/dL (70-99); Potassium 3.3 mmol/L (3.3-5.1)
[2025-07-25 06:00] VITALS: BMI 22.0
[2025-07-25 07:39] VITALS: PULSE 61
[2025-07-25] MEDS: Metoprolol(XL)Succ 25 MG Tablet PO (07:39)
[2025-07-25 08:18] VITALS: BP 127/58; PULSE 61; RESP 16; TEMP 36.6; O2SAT 97
--- NOTE | 2025-07-25 11:28 | DS.PCM_ITS ---
Providers Date of Admission: 07/22/25 Date of Discharge: 07/25/25 Primary Care Physician: Dr. Miah Cottrell, Reason For Visit: DIVERTICULITIS, FAILED OUTPT ABX Diagnosis Discharge Diagnosis (1) Diverticulitis of sigmoid colon: Status: Acute Code(s): K57.32 - Diverticulitis of large intestine without perforation or abscess without bleeding (2) Acute anemia: Status: Acute Code(s): D64.9 - Anemia, unspecified Medications at Discharge Home Medications prednisone 10 mg tablet 10 mg PO DAILY 04/05/14 metoprolol succinate 50 mg tablet,extended release 24 hr 25 mg PO DAILY bp 07/02/20 denosumab 60 mg/mL subcutaneous syringe (Prolia) 60 mg subcut [id number] 05/26/25 latanoprost 0.005 % eye drops 1 drp ophthalmic (eye) QHS 05/26/25 primidone 250 mg tablet 250 mg PO QHS TREMORS 06/12/25 cholestyramine 4 gram oral powder for suspension in a packet (Cholestyramine Light) 4 g PO DAILY 07/06/25 loperamide 2 mg capsule (Anti-Diarrheal (loperamide)) 2 mg PO Q6H PRN loose stool 07/06/25 pantoprazole 40 mg tablet,delayed release (Protonix) 40 mg PO DAILY gerd 30 days #30 tabs 07/06/25 ciprofloxacin HCl 500 mg tablet (Cipro) 500 mg PO BID #24 tabs 07/25/25 metronidazole 500 mg tablet 500 mg PO BID #24 tabs 07/25/25 Hospital Course Operations None Procedures - (CT abdomen pelvis 1 with IV contrast only and 1 with IV and p.o. contrast) Summary of Care Provided Minutes Spent on Discharge: 38 Hospital Course: Mrs. Quiroz is a 75-year-old white female with a history of diverticulitis and follows with Dr. Hagen who presented to the emergency department at [facility] on 07/21/2025 with a chief complaint of abdominal pain and mucousy/bloody diarrhea. 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 She had taken all but 2-1/2 days of her Augmentin but had persistent symptoms so he recommended she come to the emergency department to be evaluated given failure of outpatient treatment. Patient denied fever but had left lower quadrant pain, mucousy stools that had intermittent blood. Vital signs on presentation showed temperature of 96.8, heart rate 96, blood pressure is 120/60, respiratory is 18 and pulse ox was 97% on room air. CBC showed a leukocytosis with a left shift. Chemistry panel showed mild hypokalemia with potassium of 3.1. Normal renal function, unremarkable hepatic profile and urinalysis was not consistent with infection. CT of the abdomen pelvis showed extensive sigmoid diverticular disease without diverticulitis and possible developing sigmoiditis. She was admitted to medical floor and placed on Zosyn and a C. difficile was obtained. On day 2 of her hospitalization she was still having diarrhea and pain with a C. difficile that was positive for PCR but negative for toxin. Given there were no distinct diverticulitis on initial CAT scan we thought possibly that she was early in an acute C. difficile infection as she does not have previous disease so the Zosyn was discontinued and she was placed on p.o. vancomycin. Her symptoms persisted despite this so we went ahead and repeated a CT of her abdomen pelvis to include p.o. and IV contrast. This scan showed sigmoid diverticulitis without perforation or abscess so vancomycin was discontinued and she was restarted on IV Zosyn. Within 36 hours of restarting Zosyn her symptoms had abated. Her diarrhea had resolved. Her hemoglobin was stable despite what she stated was white significant bleeding in her stool. I do not think she needs further workup at this time for this however outpatient colonoscopy would be recommended after she healed from his acute illness. We did obtain iron studies and they were not consistent with iron deficiency and more consistent with chronic disease likely related to her PMR/giant cell arteritis. She did have some electrolyte abnormalities during her hospital course which were corrected prior to discharge. There could have been a component of ischemic colitis as well with this given her history of tobacco abuse. Her diarrhea is completely resolved and she no longer any left lower quadrant abdomen pain and was anxious to go home. Given that she failed outpatient Augmentin we did transition her antibiotics to Cipro and Flagyl. She will continue for another 12 days to complete a 14-day course. Prescriptions for Cipro and Flagyl written at the time of discharge and she was able to be discharged in stable condition on 07/25/2025 to home. I have asked her to follow-up with Dr. Sandoval within the next 2 weeks and her primary care physician within the next week. Discharge diagnoses: Acute sigmoid: Diverticulitis Acute anemia-mild Hypokalemia Hypophosphatemia History of PMR History of giant cell arteritis Chronic steroid use GERD History of chronic essential tremors History uterine cancer Glaucoma Osteoporosis Tobacco abuse History of PCOS Weight / BMI Weight Weight: 60.1 kg Body Mass Index (BMI) 22.0 ABG / Lab / Microbiology Data 07/25/25 05:24 07/25/25 05:24 Laboratory: Laboratory Results - last 24 hr 07/25/25 05:24: WBC 9.0, RBC 3.54 L, Hgb 11.1 L, Hct 33.9 L, MCV 95.8, MCH 31.4, MCHC 32.7, RDW Std Deviation 44.7 H, RDW Coeff of Lizandro 12.7, Plt Count 240, MPV 9.8, Immature Gran % (Auto) 0.300, Neut % (Auto) 53.8, Lymph % (Auto) 35.3, [place] % (Auto) 8.5, Eos % (Auto) 1.4, Baso % (Auto) 0.7, Absolute Neuts (auto) 4.8, Absolute Lymphs (auto) 3.17, Nucleated RBC % 0, Sodium 140, Potassium 3.3, Chloride 107, Carbon Dioxide 23.9, Anion Gap 9, BUN 8, Creatinine 0.60 L, Estim Creat Clear Calc 54.67, Est GFR (MDRD) Non-Af 93, BUN/Creatinine Ratio 13.9, Glucose 82, Calcium 7.9 Microbiology: Microbiology 07/21/25 23:30 Stool Enteric Bacteriology - Final 07/21/25 23:30 Stool C. difficile GDH Antigen & Toxins - Final 07/21/25 23:30 Stool Clostridioides difficile (PCR) - Final D/C Instructions Discharge Activity: Return to Normal Activity DC O2, CPAP, BIPAP Needs Home O2 Discharge instructions: No DC home with Oxygen: No Meaningful Use Info Meaningful Use Meaningful Use Diagnoses (Choose all that apply): None applicable Discharge Plan Admission Admit Date/Time: 07/22/25 11:45 Primary Reason for Your Visit: Abdominal pain/diarrhea Attending Provider: Yue Stevens Primary Care Provider: Miah Cottrell Consulting Providers: Jaqui Buckner Discharge Orders/Prescriptions Prescriptions: New ciprofloxacin HCl [Cipro] 500 mg tablet 500 mg PO BID Qty: 24 0RF metronidazole 500 mg tablet 500 mg PO BID Qty: 24 0RF Continued latanoprost 0.005 % drops 1 drp ophthalmic (eye) QHS Prolia 60 mg/mL syringe 60 mg subcut [id number] prednisone 10 MG tablet 10 mg PO DAILY Patient Comments: STEROID metoprolol succinate 50 MG tablet extended release 24 hr 25 mg PO DAILY primidone 250 mg tablet 250 mg PO QHS Cholestyramine Light 4 gram powder in packet 4 g PO DAILY loperamide [Anti-Diarrheal (loperamide)] 2 mg capsule 2 mg PO Q6H PRN (Reason: loose stool) pantoprazole [Protonix] 40 mg tablet,delayed release (DR/EC) 40 mg PO DAILY 30 Days Qty: 30 0RF Discontinued amoxicillin-pot clavulanate 875-125 mg tablet 1 tab PO BID Referrals / Follow Up: Miah Cottrell DO [Primary Care Provider, Medical] - Within 1 Week Mickey Hagen MD [Non-Staff, Gastroenterology] - Within 2 Weeks Disposition Disposition (needs filled in before D/C Order can be placed): Home, Self Care Charges/Coding Visit Charges Inpatient E&M: 84348 Disch Hosp >30min
== END 2025-07-25 13:04 | disposition home or self-care (01) | DRG 392 ==
LOC: ED 20:34 → MS3 20:45
PROVIDERS: Admitting Provider Family Medicine; Emergency Provider Emergency Medicine; PCP Student in an Organized Health Care Education/Training Program; Visit Provider Internal Medicine
DX: K57.32 Diverticulitis of large intestine without perforation or abscess without bleeding (principal); A04.72 Enterocolitis due to Clostridium difficile, not specified as recurrent; D62 Acute posthemorrhagic anemia; E83.39 Other disorders of phosphorus metabolism; E87.6 Hypokalemia; K21.9 Gastro-esophageal reflux disease without esophagitis; F17.210 Nicotine dependence, cigarettes, uncomplicated; R25.1 Tremor, unspecified; M81.0 Age-related osteoporosis without current pathological fracture; H40.9 Unspecified glaucoma; Z79.899 Other long term (current) drug therapy
CPT/HCPCS: 36415; 74177; 80048; 80053; 80076; 81001; 82728; 83540; 83550; 83735; 84100; 85018; 85025; 85652; 86140; 87493; 87506; 94668; 99284; 99406; Q9967; A4216